=== PATIENT | male | born 1995 | race Caucasian/White ===

== ENCOUNTER 2023-04-17 13:07 | Emergency (ER) | payer OTHER, SELFPAY ==
[2023-04-17 13:11] VITALS: BP 124/78; PULSE 73; RESP 18; TEMP 36.4; O2SAT 97; BMI 24.4
--- NOTE | 2023-04-17 13:24 | ED_ITS ---
HPI - General Adult General Chief complaint: Abdominal Pain Stated complaint: BLOOD IN STOOL/NAUSEA Time Seen by Provider: 04/17/23 13:13 Source: patient Mode of arrival: walk-in Limitations: no limitations History of Present Illness HPI narrative: 27-year-old male who has a past medical history of gastric ulcers who is not currently on any medications presents for a bowel movement today that had a large amount of dark red blood. He states that he took 1600 mg of ibuprofen and 1 sitting a couple days ago. He drinks caffeine daily. He states that he took ibuprofen frequently a couple years ago and has not been taking this for couple years and he took 1600 mg as he states that he built up a tolerance ibuprofen. He did not take Pepto. Denies dizziness, abd or back pain, n/v/d, SOB or CP Related Data Previous Rx's Medication Instructions Recorded pantoprazole 20 mg tablet,delayed 20 mg PO DAILY 7 days #7 tabs 04/17/23 release (Protonix) sucralfate 1 gram tablet (Carafate) 1 g PO Q6H 7 days #28 tabs 04/17/23 Allergies Allergy/AdvReac Type Severity Reaction Status Date / Time hydromorphone [From Dilaudid] Allergy Unknown Verified 04/17/23 13:11 morphine Allergy Unknown Verified 04/17/23 13:11 oxycodone Allergy Unknown Verified 04/17/23 13:11 Review of Systems ROS Status of ROS 10 or more systems reviewed and unremarkable except as noted in history and below Exam Narrative Exam Narrative: General: alert, no distress, talking in full an complete sentences skin: warm, dry, intact head: normocephalic, atraumatic eyes: EOMI nose: nares patent neck: supple, trachea midline respiratory: non-labored extremities: FROM x 4, strength +5/5 abd: soft, NT, no guarding or rigidity, no peritoneal signs, normal BS neuro: A&Ox3 psych: appropriate mood and affect, cooperative Constitutional Vital Signs, click to edit/add: Last Vital Signs Temp 97.6 F 04/17/23 13:11 Pulse 73 04/17/23 13:11 Resp 18 04/17/23 13:11 BP 124/78 04/17/23 13:11 Pulse Ox 97 04/17/23 13:11 O2 Del Method Room Air 04/17/23 13:11 Course Vital Signs Vital signs: Vital Signs Temperature 97.6 F 04/17/23 13:11 Pulse Rate 73 04/17/23 13:11 Respiratory Rate 18 04/17/23 13:11 Blood Pressure 124/78 04/17/23 13:11 Pulse Oximetry 97 04/17/23 13:11 Oxygen Delivery Method Room Air 04/17/23 13:11 Temperature 97.6 F 04/17/23 13:11 Pulse Rate 73 04/17/23 13:11 Respiratory Rate 18 04/17/23 13:11 Blood Pressure 124/78 04/17/23 13:11 Pulse Oximetry 97 04/17/23 13:11 Oxygen Delivery Method Room Air 04/17/23 13:11 Medical Decision Making MDM Narrative Medical decision making narrative: I did offer work-up including lab work and imaging, but after shared decision making patient chooses to receive medications and follow-up with GI. He has only had 1 episode about 4 hours ago, he is not showing any signs or symptoms of massive blood loss such as dizziness, shortness of breath, chest pain, hypote nsion or tachycardia. He is not on any acid reflux medications and will be given Protonix and Carafate prescriptions and follow-up with GI and family doctor. He is instructed to stop taking Motrin and caffeine. afebrile, not tachypneic, not tachycardic, tolerating p.o., not hypoxic, non toxic appearing and ambulating at baseline and hemodynamically stable to be d/c. answered all questions. educated on SE of meds. pt in agreement with tx. educated when to return to ER. Discharge Plan Discharge Chief Complaint: Abdominal Pain Clinical Impression: Melena Patient Disposition: Home, Self-Care Time of Disposition Decision: 13:25 Condition: Good Mode of Transportation: Private Vehicle Prescriptions / Home Meds: New pantoprazole [Protonix] 20 mg tablet,delayed release (DR/EC) 20 mg PO DAILY 7 Days Qty: 7 0RF sucralfate [Carafate] 1 gram tablet 1 g PO Q6H 7 Days Qty: 28 0RF Instructions: Melena (ED) Stand Alone Forms: Portal Instructions Referrals: SELMA ZHANG [Other] - 1 week JOSE RIOS [Physician] - As soon as possible Physician,Non-Staff, MD [Primary Care Provider] - 1 week
== END 2023-04-17 13:41 | disposition home or self-care (01) ==
PROVIDERS: Emergency Provider Emergency Medicine
DX: K92.1 Melena (principal); Z79.899 Other long term (current) drug therapy
CPT/HCPCS: 99283

== ENCOUNTER 2023-06-20 21:20 | Observation (INO) | payer OTHER, SELFPAY ==
[2023-06-20 21:24] VITALS: BP 128/80; PULSE 99; RESP 18; TEMP 38.3; O2SAT 99; BMI 24.4
[2023-06-20 21:53] LABS: Adenovirus NOT DETECTED (NOT DETECTE); Bordetella parapertussis NOT DETECTED (NOT DETECTE); Coronavirus 229E NOT DETECTED (NOT DETECTE); Coronavirus HKU1 NOT DETECTED (NOT DETECTE); Coronavirus NL63 NOT DETECTED (NOT DETECTE); Coronavirus OC43 NOT DETECTED (NOT DETECTE); Human Metapneumovirus NOT DETECTED (NOT DETECTE); Human Rhinovirus/Enterovirus NOT DETECTED (NOT DETECTE); Influenza A NOT DETECTED (NOT DETECTE); Influenza B NOT DETECTED (NOT DETECTE); Mycoplasma pneumoniae NOT DETECTED (NOT DETECTE); Parainfluenza Virus 1 NOT DETECTED (NOT DETECTE); Parainfluenza Virus 2 NOT DETECTED (NOT DETECTE); Parainfluenza Virus 3 NOT DETECTED (NOT DETECTE); Parainfluenza Virus 4 NOT DETECTED (NOT DETECTE); Respiratory Syncytial Virus NOT DETECTED (NOT DETECTE); SARS-CoV-2 NOT DETECTED (NOT DETECTE)
[2023-06-20 22:14] LABS: Hematocrit 47.8 % (42.0-54.0); Mean Corpuscular HGB Conc 33.5 g/dL (29.9-35.2); Mean Corpuscular Hemoglobin 27.5 pg (25.9-34.0); Mean Corpuscular Volume 82.1 fL (80.0-94.0); Mean Platelet Volume 10.7 fL (9.5-13.5); Platelet Count 493 10^3/uL (150-450); Red Blood Count 5.82 10^6/uL (4.70-6.10); Red Cell Distribution Width 11.9 % (11.0-15.0); White Blood Count 26.6 10^3/uL (4.0-11.0)
[2023-06-20] MEDS: AMPICILLIN SODIUM/SULBACTAM NA 3 GM in 0.9 % SODIUM CHLORIDE 100 ML IV (22:17)
[2023-06-20] MEDS: 0.9 % SODIUM CHLORIDE 1,000 ML 1000 ML IV (22:17)
[2023-06-20] MEDS: ONDANSETRON PF 4 MG/2 ML VIAL IV ×2 (22:17→23:40)
[2023-06-20 22:28] LABS: Alanine Aminotransferase 36 U/L (16-63); Albumin Level 3.9 g/dL (3.4-5.0); Alkaline Phosphatase 85 U/L (46-116); Aspartate Amino Transferase 22 U/L (15-37); BUN Creatinine Ratio 10.4; Bilirubin Total 0.7 mg/dL (0.2-1.0); Calcium 9.6 mg/dL (8.5-10.1); Carbon Dioxide 27.8 mmol/L (21.0-32.0); Chloride 99 mmol/L (98-107); Estimated GFR (African America >60 (>=60); Estimated GFR (Non-African Ame >60 (>=60); Globulin 4.1 g/dL; Glucose 113 mg/dL (74-106); Potassium 3.8 mmol/L (3.5-5.1); Sodium 136 mmol/L (136-145)
[2023-06-20 22:32] LABS: Lactate/Lactic Acid 1.7 mmol/L (0.4-2.0)
[2023-06-20 22:36] LABS: Atypical Lymphocytes Abs Man 2.39; Basophils Abs Manual 0.26 10^3/uL (0.00-0.10); Lymphocytes Absolute Manual 2.39 10^3/uL (1.20-3.80); Monocytes Absolute Manual 2.39 10^3/uL (0.30-0.80); Segmented Neut Absolute Manual 19.15 10^3/uL (1.4-6.5)
--- NOTE | 2023-06-20 22:46 | ED_ITS ---
HPI - General Adult General Chief complaint: Dental/Oral Stated complaint: Post Operative Complications Time Seen by Provider: 06/20/23 21:21 Source: patient Mode of arrival: walk-in Limitations: no limitations History of Present Illness HPI narrative: This 27-year-old male with a history of hereditary spherocytosis who is status post splenectomy in the past presents for evaluation of fevers, chills, headache, nausea and vomiting. The patient states his locomotive boilermaker told him in the past if he should ever have a fever greater than 100 degrees for greater than 24 hours he should be on antibiotics. The patient had a tonsillectomy yesterday at the [facility] [place]. He was discharged home with a perception for pain medication and a mouth rinse but no antibiotics. Earlier today he started having some chills and sweats and took his temperature and had a fever. He has been tolerating clear liquids but feels dehydrated. He has also had 2 episodes of vomiting. He has no chest pain or shortness of breath. He has no sick contacts. He was formerly a patient of Dr Mulligan, but since he retired, he does not have a locomotive boilermaker and his PCP is now at the [facility] Related Data Home Medications Medication Instructions Recorded Confirmed sertraline 50 mg tablet 50 mg PO Q24H 06/20/23 06/20/23 Allergies Allergy/AdvReac Type Severity Reaction Status Date / Time hydromorphone [From Dilaudid] Allergy Unknown Verified 06/20/23 21:29 morphine Allergy Unknown Verified 06/20/23 21:29 oxycodone Allergy Unknown Verified 06/20/23 21:29 Review of Systems ROS Status of ROS 10 or more systems reviewed and unremark able except as noted in history and below PFSH COUNT INCLUDES THE [facility] Social History Smoking status: Current every day smoker Exam Narrative Exam Narrative: Nurses note and vital signs reviewed and patient is not hypoxic.He is febrile with a temperature of 100.9 and mildly tachycardic with pulse of 99 General: Alert, nontoxic but uncomfortable appearing male, his voice is muffled status post tonsillectomy surgery yesterday, no respiratory distress Skin: Warm, dry, no pallor noted. There is no rash noted. Head: Normocephalic, atraumatic Eye: Normal conjunctiva, no drainage, EOMI. PERRL Ears, Nose, Mouth, and Throat: oral mucosa is dry, eschar/cauterized tissue noted on the tonsils Cardiovascular: Regular Rate and Rhythm S1S2, no murmurs, rubs or gallops noted Respiratory: Patient is in no distress, no accessory muscle use, lungs are clear to auscultation, no wheezing, rales or rhonchi Back: non-tender, no CVA tenderness bilaterally to percussion. GI: Normal bowel sounds, no tenderness to palpation, no masses appreciated. No rebound, guarding, or rigidity noted. Musculoskeletal: The patient has no evidence of calf tenderness, no pitting edema, symmetrical pulses noted bilaterally Neurological: A&O x4, normal speech Psychiatric: Cooperative Constitutional Vital Signs, click to edit/add: Last Vital Signs Temp 100.9 F H 06/20/23 21:24 Pulse 99 H 06/20/23 21:24 Resp 18 06/20/23 21:24 BP 128/80 06/20/23 21:24 Pulse Ox 99 06/20/23 21:24 O2 Del Method Room Air 06/20/23 21:24 Course Vital Signs Vital signs: Vital Signs Temperature 100.9 F H 06/20/23 21:24 Pulse Rate 99 H 06/20/23 21:24 Respiratory Rate 18 06/20/23 21:24 Blood Pressure 128/80 06/20/23 21:24 Pulse Oximetry 99 06/20/23 21:24 Oxygen Delivery Method Room Air 06/20/23 21:24 Temperature 100.9 F H 06/20/23 21:24 Pulse Rate 99 H 06/20/23 21:24 Respiratory Rate 18 06/20/23 21:24 Blood Pressure 128/80 06/20/23 21:24 Pulse Oximetry 99 06/20/23 21:24 Oxygen Delivery Method Room Air 06/20/23 21:24 Medical Decision Making MDM Narrative Medical decision making narrative: This 27-year-old male with a history of hereditary spherocytosis who is status post splenectomy in the past presents for evaluation of fever, chills, headache, body aches with nausea and vomiting starting today. He had his tonsils removed yesterday. He states that he went to an ENT at the [facility] and they were concerned that he may have a head and neck cancer. He had CAT scans done etc. and ultimately had his tonsils removed yesterday. Today he started with his fever, chills body aches headaches etc. and had been told in the past by his locomotive boilermaker that he should seek medical attention if he had a fever greater than 100 degrees for greater than 24 hours. Upon arrival he was noted to have a temperature of 100.9. He has been tolerating clear liquids but has had 2 episodes of vomiting. His lungs are clear, abdomen is soft. He has not had any bleeding from his tonsillar site. Due to his history of splenectomy he was treated with 3 g of IV Unasyn, IV fluids and Zofran. I reviewed the literature to find out exactly which additional medications were indicated to prevent sepsis and a post splenectomy patient. I ultimately chose Levaquin for gram- negative coverage. Respiratory panel was ordered and is negative. The patient's white count is elevated at 26.6. He has a normal lactic acid. Electrolytes are a lso normal. Blood cultures are pending at this time. Patient has not had any marked tachycardia, hypotension or signs of sepsis. He was medicated with Tylenol and an additional dose of Zofran and fentanyl which he stated he could tolerate for his pain and ongoing nausea and fever. He has not had any hematemesis or bleeding from his postop site. The case was discussed with the hospitalist and the patient is accepted for admission, observation status for additional IV fluids and IV antibiotics. Lab Data Labs: Lab Results 06/20/23 06/20/23 Range/Units 21:45 21:57 WBC 26.6 H (4.0-11.0) 10^3/uL RBC 5.82 (4.70-6.10) 10^6/uL Hgb 16.0 (14.0-18.0) g/dL Hct 47.8 (42.0-54.0) % MCV 82.1 (80.0-94.0) fL MCH 27.5 (25.9-34.0) pg MCHC 33.5 (29.9-35.2) g/dL RDW 11.9 (11.0-15.0) % Plt Count 493 H (150-450) 10^3/uL MPV 10.7 (9.5-13.5) fL Seg Neuts % (Manual) 72.0 Lymphocytes % (Manual) 9.0 L (20.5-60.0) % Atypical Lymphs % (Man) 9.0 % Monocytes % (Manual) 9.0 (1.7-12.0) % Eosinophils % (Manual) 0.0 L (0.9-7.0) % Basophils % (Manual) 1.0 (0.2-2.0) % Neutrophils # (Manual) 19.15 H (1.4-6.5) 10^3/uL Lymphocytes # (Manual) 2.39 (1.20-3.80) 10^3/uL Abs Atypical Lymphs Man 2.39 Monocytes # (Manual) 2.39 H (0.30-0.80) 10^3/uL Eosinophils # (Manual) 0.00 (0.00-0.70) 10^3/uL Basophils # (Manual) 0.26 H (0.00-0.10) 10^3/uL Sodium 136 (136-145) mmol/L Potassium 3.8 (3.5-5.1) mmol/L Chloride 99 (98-107) mmol/L Carbon Dioxide 27.8 (21.0-32.0) mmol/L Anion Gap 13.0 BUN 10.0 (7.0-18.0) mg/dL Creatinine 0.96 (0.70-1.30) mg/dL Est GFR ( Amer) >60 (>=60) Est GFR (Non-Af Amer) >60 (>=60) BUN/Creatinine Ratio 10.4 Glucose 113 H (74-106) mg/dL Lactate 1.7 (0.4-2.0) mmol/L Calcium 9.6 (8.5-10.1) mg/dL Total Bilirubin 0.7 (0.2-1.0) mg/dL AST 22 (15-37) U/L ALT 36 (16-63) U/L Alkaline Phosphatase 85 (46-116) U/L Total Protein 8.0 (6.4-8.2) g/dL Albumin 3.9 (3.4-5.0) g/dL Globulin 4.1 g/dL Albumin/Globulin Ratio 1.0 Adenovirus (PCR) Not detected (NOT DETECTE) C. pneumoniae DNA (PCR) Not detected (NOT DETECTE) Coronavirus Type OC43 Not detected (NOT DETECTE) Coronavirus Type HKU1 Not detected (NOT DETECTE) Coronavirus Type 229E Not detected (NOT DETECTE) Coronavirus Type NL63 Not detected (NOT DETECTE) Human Metapneumovir PCR Not detected (NOT DETECTE) M. pneumoniae (PCR) Not detected (NOT DETECTE) Parainfluenza PCR Not detected (NOT DETECTE) Parainfluenza 2 (PCR) Not detected (NOT DETECTE) Parainfluenza 3 (PCR) Not detected (NOT DETECTE) Parainfluenza 4 (PCR) Not detected (NOT DETECTE) RSV (RT-PCR) Not detected (NOT DETECTE) Entero/Rhino (PCR) Not detected (NOT DETECTE) SARS-CoV-2 (PCR) Not detected (NOT DETECTE) Bordetella pertussis (PCR) Not detected (NOT DETECTE) B parapertussis DNA PCR Not detected (NOT DETECTE) Influenza Type A (PCR) Not detected (NOT DETECTE) Influenza Type B (PCR) Not detected (NOT DETECTE) Discharge Plan Discharge Chief Complaint: Dental/Oral Clinical Impression: Leukocytosis, Asplenia, Fever postop Patient Disposition: Admitted as Observation Time of Disposition Decision: 23:43 Condition: Good Prescriptions / Home Meds: No Action sertraline 50 mg tablet 50 mg PO Q24H Referrals: Physician,Non-Staff, MD [Primary Care Provider] - 1 week
[2023-06-20] MEDS: LEVOFLOXACIN IN DEXTROSE 5 % 750 MG/150 ML IV.SOLN 100 MG IV (23:39)
[2023-06-20] MEDS: ACETAMINOPHEN 160 MG/5 ML ORAL.SUSP 640 MG PO (23:40)
[2023-06-20] MEDS: FENTANYL CITRATE/PF 100 MCG/2 ML VIAL 50 MCG IV (23:40)
[2023-06-21 00:01] VITALS: BP 109/68; PULSE 90; RESP 18; TEMP 37; O2SAT 93; BMI 23.5
--- OUTSIDE RECORDS SUMMARY | 2023-06-21 00:02 | XMS_ITS | CCD ---
Author Name Unknown Address [address] [place] [address] Organization [facility] Care Team Providers Care Electrophysiologist Name Role Phone Lelia Franklin Primary Care Physician Ade Fuller Unavailable Unavailable Zoila Webb Unavailable Jose Taylor Attending Unavailable Karan العراقي Attending Unavailable MABLE STEPHENSON Attending Unavailable Angela Barksdale Attending Unavailable LELIA FRANKLIN Attending Unavailable Leah Grover Attending Unavailable ROBERTO CARLOS Myrick Leah Admitting UnavailLeah Eason Attending Unavailable LELIA FRANKLIN Referring Unavailable ROBERTO CARLOS Myrick Leah Admitting UnavailLELIA Trevino Referring Unavailable Leah Myrick Attending Unavailable LELIA FRANKLIN Referring Unavailable MD Sen Burgess Admitting Unavailable Sen Burgess Attending Unavailable LELIA FRANKLIN Referring Unavailable MD Sen Burgess Admitting Unavailable Sen Burgess Attending Unavailable MD Sen Burgess Admitting Unavailable Sen Burgess Attending Unavailable Sen Burgess Referring Unavailable Leah Myrick Admitting Unavailable Leah Myrick Attending Unavailable Sen Burgess Admitting Unavailable Sen Burgess Attending Unavailable Sen Burgess Referring Unavailable MABLE STEPHENSON Attending Unavailable MABLE STEPHENSON Admitting Unavailable Allergies Allergy Classification Reported Allergen(s) Allergy Type Date of Onset Reaction(s) Facility (16 sources) HYDROmorphone; Translations: [hydromorphone] Drug Allergy Weal (disorder) [facility] (17 sources) Morphine; Translations: [morphine] Drug Allergy anaphylaxis, Unknown [facility] (17 sources) oxyCODONE; Translations: [oxycodone] Drug Allergy Nausea (finding) [facility] Medications Current Medications Medication Drug Class(es) Dates Sig (Normalized) Sig (Original) acetaminophen 1000 mg oral tablet (3 sources) Start: 06-13-2022 take 1000 mg by mouth three times daily as needed for pain acetaminophen 1,000 mg, Oral, TID, PRN as needed for pain, Refills(s) 0 Start Date: 06/13/22 Status: Ordered benzonatate 100 mg oral capsule (4 sources) Non-narcotic Antitussive Start: 03-28-2023 End: 04-04-2023 take 1 capsule by mouth three times daily Tessalon 100 mg Cap 100 mg = 1 cap(s), Oral, TID, X 7 day(s), # 21 cap(s), Refills(s) 0, Pharmacy: [facility]/pharmacy #[id number], 177, cm, 03/28/23 10:47:00 EDT, Height/Length Dosing, 75.8, kg, 03/28/23 10:47:00 EDT, Weight Dosing Start Date: 03/28/23 Stop Date: 04/04/23 Status: Ordered Start: 05-19-2022 End: 05-26-2022 take 1 capsule by mouth three times daily benzonatate 200 mg oral capsule 200 mg = 1 cap(s), Oral, TID, X 7 day(s), # 21 cap(s), Refills(s) 0, Pharmacy: [facility]/pharmacy #[id number], 180, cm, 05/19/22 10:12:00 EST, Height/Length Dosing, 80, kg, 05/19/22 10:12:00 EST, Weight Dosing Start Date: 05/19/22 Stop Date: 05/26/22 Status: Ordered brompheniramine maleate 0.2 mg/ml / dextromethorphan hydrobromide 1 mg/ml / phenylephrine hydrochloride 0.5 mg/ml oral solution (4 sources) Uncompetitive T-xisezq-L-aspartate Receptor Antagonist, Sigma-1 Agonist, alpha-1 Adrenergic Agonist Start: 05-14-2022 take 10 mL by mouth every four hours for cough and congestion brompheniramine/dextromethorph/phenyleph rine 1 mg-5 mg-2.5 mg/5 mL oral liquid 10 mL, Oral, q4hr for cough and congestion, 118 mL, Refill(s) 0, [facility]/pharmacy #[id number], 180, cm, 05/14/22 19:45:00 EST, Height/Length Dosing, 79.5, kg, 05/14/22 19:45:00 EST, Weight Dosing Start Date: 05/14/22 Status: Ordered brompheniramine maleate 0.4 mg/ml / dextromethorphan hydrobromide 2 mg/ml / pseudoephedrine hydrochloride 6 mg/ml oral solution (2 sources) alpha-Adrenergic Agonist, Uncompetitive X-nusxjo-I-aspartate Receptor Antagonist, Sigma-1 Agonist Start: 05-12-2022 End: 05-19-2022 take 10 mL by mouth every six hours Bromfed DM oral syrup 10 mL, Oral, q6hr for cold symptoms for 7 day(s), 280 mL, Refill(s) 0, [facility]/pharmacy #[id number], 178, cm, 05/12/22 11:45:00 EST, Height/Length Dosing, 78.6, kg, 05/12/22 11:45:00 EST, Weight Dosing Start Date: 05/12/22 Stop Date: 05/19/22 Status: Ordered cefdinir 300 mg oral capsule (3 sources) Cephalosporin Antibacterial Start: 05-19-2022 End: 05-29-2022 take 1 capsule by mouth every twelve hours cefdinir 300 mg Cap 300 mg = 1 cap(s), O ral, q12hr, X 10 day(s), # 20 cap(s), Refills(s) 0, Pharmacy: [facility]/pharmacy #[id number], 180, cm, 05/19/22 10:12:00 EST, Height/Length Dosing, 80, kg, 05/19/22 10:12:00 EST, Weight Dosing Start Date: 05/19/22 Stop Date: 05/29/22 Status: Ordered cyclobenzaprine hydrochloride 10 mg oral tablet (11 sources) Muscle Relaxant Start: 03-28-2022 take 1 tablet by mouth three times daily as needed for muscle spasms cyclobenzaprine 10 mg Tab 10 mg = 1 tab( s), Oral, TID, PRN for spasm, # 30 tab(s), Refills(s) 0, Pharmacy: [facility]/pharmacy #[id number], 178, cm, 03/28/22 14:15:00 EDT, Height/Length Dosing, 83.1, kg, 03/28/22 14:15:00 EDT, Weight Dosing Start Date: 03/28/22 Status: Ordered Start: 12-23-2021 End: 01-13-2022 take 1 tablet by mouth at bedtime cyclobenzaprine 5 mg Tab 5 mg = 1 tab(s), Oral, Bedtime, X 21 day(s), # 21 tab(s), Refills(s) 0, Pharmacy: [facility]/pharmacy #[id number], 178, cm, 12/23/21 16:48:00 EDT, Height/Length Dosing, 81, kg, 12/23/21 16:48:00 EDT, Weight Dosing Start Date: 12/23/21 Stop Date: 01/13/22 Status: Ordered escitalopram 20 mg oral tablet (9 sources) Serotonin Reuptake Inhibitor Start: 04-28-2022 take 1 tablet by mouth once daily Lexapro 20 mg Tab 20 mg = 1 tab(s), Oral, Daily, # 30 tab(s), Refills(s) 1, Pharmacy: [facility]/pharmacy #[id number], 178, cm, 04/28/22 15:31:00 EST, Height/Length Dosing, 79.7, kg, 04/28/22 15:31:00 EST, Weight Dosing Start Date: 04/28/22 Status: Ordered Start: 03-28-2022 take 1 tablet by aries th once daily Lexapro 10 mg Tab 10 mg = 1 tab(s), Oral, Daily, # 30 tab(s), Refills(s) 1, Pharmacy: [facility]/pharmacy #[id number], 178, cm, 03/28/22 14:15:00 EDT, Height/Length Dosing, 83.1, kg, 03/28/22 14:15:00 EDT, Weight Dosing Start Date: 03/28/22 Status: Ordered gabapentin 300 mg oral capsule (1 source) Anti-epileptic Agent Start: 07-04-2022 take 1 capsule by mouth once daily at bedtime gabapentin 300 mg Cap 300 mg = 1 cap(s), Oral, Once a day (at bedtime), # 30 cap(s), Refills(s) 1, Pharmacy: [facility]/pharmacy #[id number], 180, cm, 07/04/22 15:40:00 EST, Height/Length Dosing, 75, kg, 07/04/22 15:40:00 EST, Weight Dosing Start Date: 07/04/22 Status: Ordered hydrOXYzine pamoate 25 mg oral capsule (8 sources) Antihistamine Start: 04-28-2022 take 1 capsule by mouth three times daily as needed for anxiety Vistaril 25 mg Cap 25 mg = 1 cap(s), Oral, TID, PRN for anxiety, # 40 cap(s), Refills(s) 2, Pharmacy: [facility]/pharmacy #[id number], 178, cm, 04/28/22 15:31:00 EST, Height/Length Dosing, 79.7, kg, 04/28/22 15:31:00 EST, Weight Dosing Start Date: 04/28/22 Status: Ordered Brutus (1 source) Brutus Active methocarbamol 750 mg oral tablet (1 source) Muscle Relaxant Start: 02-03-2022 End: 02-10-2022 take 2 tablets by mouth at bedtime methocarbamol 750 mg Tab 1,500 mg = 2 tab(s), Oral, Bedtime, X 7 day(s), # 14 tab(s), Refills(s) 0, [id number], cm, 02/03/22 10:55:00 EDT, Height/Length Dosing, 80.8, kg, 02/03/22 10:55:00 EDT, Weight Dosing Start Date: 02/03/22 Stop Date: 02/10/22 Status: Ordered methylPREDNISolone 4 mg oral tablet (3 sources) Corticosteroid Start: 02-03-2022 End: 02-09-2022 Medrol 4 mg Tab = 1 packet(s), Oral, As Directed, as directed on package labeling, X 6 day(s), # 21 tab(s), Refills(s) 0, [id number] 178, cm, 02/03/22 10:55:00 EDT, Height/Length Dosing, 80.8, kg, 02/03/22 10:55:00 EDT, Weight Dosing Start Date: 02/03/22 Stop Date: 02/09/22 Status: Ordered Start: 12-23-2021 End: 12-29-2021 Medrol 4 mg Tab = 1 packet(s ), Oral, As Directed, as directed on package labeling, X 6 day(s), # 21 tab(s), Refills(s) 0, Pharmacy: [facility]/pharmacy #[id number], 178, cm, 12/23/21 16:48:00 EDT, Height/Length Dosing, 81, kg, 12/23/21 16:48:00 EDT, Weight Dosing Start Date: 12/23/21 Stop Date: 12/29/21 Status: Ordered phenylephrine 0.0025 mg/mg / witch vikas 0.5 mg/mg rectal gel (2 sources) alpha-1 Adrenergic Agonist Start: 06-06-2022 phenylephrine 0.25% rectal gel 1 evelyn, Topical, Daily for itching, 54 gram, Refill(s) 0, [facility]/pharmacy #[id number], 180, cm, 06/06/22 15:30:00 EST, Height/Length Dosing, 77, kg, 06/06/22 15:30:00 EST, Weight Dosing Start Date: 06/06/22 Status: Ordered predniSONE 20 mg oral tablet (5 sources) Start: 05-04-2023 take 1 tablet by mouth every twelve hours prednisone 20 MG 1 tablet Orally BID for 5 Apr, Active Start: 03-28-2023 End: 04-04-2023 take 1 tablet by mouth once daily predniSONE 20 mg Tab 20 mg = 1 tab(s), Oral, Daily, X 7 day(s), # 7 tab(s), Refills(s) 0, Pharmacy: [facility]/pharmacy #[id number], 177, cm, 03/28/23 10:47:00 EDT, Height/Length Dosing, 75.8, kg, 03/28/23 10:47:00 EDT, Weight Dosing Start Date: 03/28/23 Stop Date: 04/04/23 Status: Ordered Start: 05-19-2022 End: 05-24-2022 take 3 tablets by mouth once daily predniSONE 20 mg Tab 60 mg = 3 tab(s), Oral, Daily, X 5 day(s), # 15 tab(s), Refills(s) 0, Pharmacy: [facility]/pharmacy #[id number], 180, cm, 05/19/22 10:12:00 EST, Height/Length Dosing, 80, kg, 05/19/22 10:12:00 EST, Weight Dosing Start Date: 05/19/22 Stop Date: 05/24/22 Status: Ordered Sertraline (2 sources) Serotonin Reuptake Inhibitor Start: 03-28-2023 sertraline Oral, Brielle ly, Refills(s) 0 Start Date: 03/28/23 Status: Ordered take 1 tablet by aries th every twenty-four hours Sertraline HCl 100 MG 1 tablet Orally Once a day Active traZODone hydrochloride 100 mg oral tablet (1 source) Serotonin Reuptake Inhibitor Start: 03-28-2023 traZODONE 100 mg Tab Refills(s) 0 Start Date: 03/28/23 Status: Ordered Problems Active Problems Problem Classification Problem Date Documented Da te Episodic/Chronic Acute and chronic tonsillitis (15 sources) Enlarged tonsil 11-20-2019 Chronic Anxiety disorders (18 sources) Anxiety; Translations: [Posttraumatic stress disorder] 04-28-2022 Chronic Biliary tract disease (15 sources) Biliary calculus 08-29-2013 Episodic Comment on above: 2009 2009 Deficiency and other anemia (15 sources) Hemolytic anemia 11-20-2019 Chronic Deficiency and other anemia (15 sources) Hereditary spherocytosis 12-12-2019 Chronic E Codes: Fall (1 source) Fall on same level from slipping, tripping and stumbling with subsequent striking against other sharp object, initial encounter; Translations: [Fall on same level from tripping (finding)] Episodic E Codes: Unspecified (1 source) Civilian activity done for income or pay; Translations: [Working, function (observable entity)] Episodic Gastroduodenal ulcer (except hemorrhage) (15 sources) Ulcer of anastomosis 11-20-2019 Chronic Noninfectious gastroenteritis (1 source) Noninfectious enteritis; Translations: [Noninfective gastroenteritis and colitis, unspecified] Onset: 05-12-2022 Episodic Open wounds of extremities (2 sources) Laceration of lower leg; Translations: [Laceration without foreign body, unspecified lower leg, initial encounter] Onset: 11-04-2021 Episodic Other aftercare (15 sources) Post-discharge follow-up 11-20-2019 Episodic Other connective tissue disease (13 sources) Medial epicondylitis; Translations: [Medial epicondylitis, unspecified elbow] Onset: 02-03-2022 Episodic Other connective tissue disease (2 sources) Spasm; Translations: [Other muscle spasm] Onset: 02-03-2022 Episodic Other connective tissue disease (12 sources) Muscle spasm of cervical muscle of neck 02-03-2022 Episodic Other ear and sense organ disorders (9 sources) Hearing loss 05-08-2022 Chronic Other gastrointestinal disorders (15 sources) Constipation 11-20-2019 Episodic Comment on above: after GB removed after GB removed Other gastrointestinal disorders (15 sources) Dysphagia 11-20-2019 Episodic Other gastrointestinal disorders (15 sources) Splenomegaly 11-20-2019 Episodic Other male genital disorders (15 sources) Testicular mass 08-21-2021 Episodic Other upper respiratory infections (4 sources) Acute upper respiratory infection; Translations: [Acute upper respiratory infection, unspecified] Onset: 05-12-2022 Episodic Otitis media and related conditions (1 source) Otitis media; Translations: [Otitis media, unspecified, unspecified ear] Onset: 05-19-2022 Episodic Residual codes; unclassified (13 sources) Sleep apnea; Translations: [Sleep apnea, unspecified] Onset: 02-03-2022 Chronic Residual codes; unclassified (14 sources) Insomnia; Translations: [Insomnia, unspecified] Onset: 02-03-2022 Episodic Screening and history of mental health and substance abuse codes (15 sources) Ex-smoker 11-04-2019 Episodic Spondylosis; intervertebral disc disorders; other back problems (14 sources) Cervical spondylosis; Translations: [Spondylosis without myelopathy or radiculopathy, cervical region] Onset: 02-03-2022 Chronic Spondylosis; intervertebral disc disorders; other back problems (20 sources) Cervical radiculopathy; Translations: [Radiculopathy, cervical region] Onset: 12-23-2021 Episodic Unclassified (14 sources) Body mass index 20-24 - normal 11-20-2019 Unclassified (15 sources) Family history unknown 11-04-2019 Unclassified (15 sources) Non-smoker 11-20-2019 Unclassified (15 sources) Patient encounter status 11-04-2019 Unclassified (9 sources) History of clinical finding in subject 05-08-2022 Past or Other Problems Problem Classification Problem Date Documented Da te Episodic/Chronic Unclassified (1 source) Contact with and (suspected) exposure to covid-19 Z20.822 Viral infection (1 source) COVID-19 Results Test Name Value Interpretation Reference Range Facility Auth for Release of Medical Recordson 05-04-2023 Auth for Release of Medical Records [id number] F Normal [facility] Grp A Strp PCRon 03-29-2023 Group A Strep Negative Normal [facility] Comment on above: Result Comment: Test ing performed using DNA amplification. Performed By: #### 1 [id number] ####[facility] [id number] [place] [address] Grp A Strp Intrl Ctrl Pass Normal [facility] Comment on above: Performed By: #### 1 [id number] ####[facility] [address] [place] [address] Ambulatory Visit Summaryon 1 Ambulatory Visit Summary BRITTNEYAdithya CHRISTIANO J :1995 Visit Date:03/28/2023 Ambulatory Visit Instructions Your Diagnosis Viral URI with cough Your Care Team Attending Physician - ALEXIA AZEVEDO, MABLE Primary Care Physician - RIGOBERTO CHURCH, LELIA Palmer This Is Your Medications List acetaminophen benzonatate (Tessalon 100 mg Cap) predniSONE (predniSONE 20 mg Tab) sertraline trazodone (traZODONE 100 mg Tab) Procedures Performed Epidural injection of cervical spine using fluoroscopic guidance (06/13/2022), Cholecystectomy, Hernia repair, Splenectomy. Discharge Vitals Temperature (Temporal Artery) 37 ?C Heart Rate (Peripheral) 77 Blood Pressure 121/78 Height 177 cm Height 70 in Weight 75.8 kg Weight 166.76 lb BMI 24.19 What to do next You Need to Complete the Following Group A Strep by PCR, Swab, Routine collect, 03/28/23, Order for future visit, Nurse collect, Viral URI with cough, Print Label By Order Location Medications What How Much When Why Instructions New benzonatate (Tessalon 100 mg Cap) 1 Capsules By Mouth 3 times a day Viral URI with cough Duration: 7 Days Pickup at [facility]/pharmacy #[id number] New predniSONE (predniSONE 20 mg Tab) 1 Tablets By Mouth Every day Viral URI with cough Duration: 7 Days Pickup at [facility]/pharmacy #[id number] Unchanged acetaminophen 1,000 Milligram By Mouth 3 times a day as needed for as needed for pain Unchanged sertraline By Mouth Every day Unchanged trazodone (traZODONE 100 mg Tab) Pharmacy Information [facility]/pharmacy #[id number]: [address] [place], [place] [id number] [phone] Allergies Dilaudid (Hives) morphine (anaphylaxis) oxyCODONE (Nausea) Problems Ongoing - Any problem that you are currently receiving treatment for. Anxiety Cervical radiculopathy Cervical spondylosis Constipation Difficulty swallowing Enlarged tonsils Family history unknown Former smoker Hearing deficit Hemolytic anemia Hereditary spherocytosis History of neck pain Hospital discharge follow-up Insomnia Lower back pain Medial epicondylitis Muscle spasms of neck Non-smoker PTSD (post-traumatic stress disorder) Screening for cardiovascular condition Splenomegaly Stomal ulcer Testicle lump Viral URI with cough Historical - Any problem that you are no longer receiving treatment for. Cholelithiasis Sleep apnea Normal [facility] Family Medicine Office/Clini c Noteon 03-28-2023 Family Medicine Office/Clinic Note Chief Complaint sore throat and congestion HPI Staff Symptoms started- Sunday Headache- yes Body aches- no Earache- no Runny/stuffy nose- yes Problem with Smell- no Problem with Taste- no Sore throat- yes Cough- yes Scratchy tickly throat- yes Chest symptoms- SOB WHITING- no Orthopnea- no Lung Hx asthma, bronchitis, chest colds- no Fever/chills- no GI symptoms- no COVID exposure- no History of Present Illness Reviewed and agree with above documented HPI by medical billing supervisor. Portions of this record may have been created with voice recognition artificial intelligence software, specifically [employer], [employer] and or [employer]. Substitutions may have occurred due to the inherent limitations of voice recognition and artificial intelligence software. Patient is a 27-year-old male who [facility], with sinus headache, body aches, sinus drainage, sore throat, and a nonproductive cough. Patient states he has coughing spells he does have shortness of breath, usually with laying supine, states he does vape, but does not smoke and does not have a history of asthma or bronchitis, patient states been having a sore throat, has been able to eat and drink, has a sense of taste and smell intact. Patient denies having any fevers, chills, nausea or vomiting, worsening headache of his life, dizziness, difficulty swallowing, worsening cough, productive cough, chest pain, shortness of breath, or weakness. Review of Systems PHQ Score Initial Depression Screen Score: 0 Physical Exam Vitals & Measurements T: 37 ?C(Temporal Artery) HR: 77(Peripheral) BP: 121/78 SpO2: 98% HT: 70 in HT: 177 cm WT: 75.8 kg WT: 166.76 lb BMI: 24.19 General: Well developed, well nourished, in no acute distress, patient does appear ill but not septic, no respiratory disorders noted. Patient answers questions appropriately and in complete sentences, and follows commands appropriately. Head: Normocephalic/atraumatic , upper respiratory infections signs of sinus congestion, but no signs of bacterial sinusitis. Eyes: Pupils equal, round, and reactive to light. Conjunctivae and sclerae normal, Ear: Bilateral TMs bulging, without any signs of otitis media or otitis externa. Hearing is intact. Mouth: Mucous membranes moist. Normal oropharynx, and posterior pharynx without lesions or exudates. Tongue normal Neck: Neck supple. No masses or palpable cervical nodes. Trachea midline. Lungs: Normal respiratory effort and clear to auscultation throughout, no wheezing, no rales, crackles, or decreased breath sounds were noted on examination. Cardio: regular rate and rhythm, no murmur, no chest wall tenderness. Extremity: Patient is able to move all 4 extremities equally without any pain or weakness. Neurologic: Grossly normal Skin: No rashes, ulcerations, or suspicious lesions Lymph Nodes: no lad Mental Status: alert, active Assessment/Plan Discuss with patient negative COVID-19 and rapid strep throat results. No imaging or breath sounds were indicated at this time. 27-year-old male [facility] to [facility], for viral upper respiratory infection and a nonproductive cough, patient appeared ill but not septic, no respiratory disorders noted, no difficulty swallowing. Patient was given a prescription for prednisone and Tessalon Perles, work excuse note, instructed to take [id number] ibuprofen Tylenol as needed for headaches, body aches, fevers. Drink plenty water stay hydrated. Patient agree with plan. 1. Viral URI with cough (J06.9: Acute upper respiratory infection, unspecified) See above Ordered: benzonatate, 100 mg = 1 cap(s), Oral, TID, X 7 day(s), # 21 cap(s), Refills(s) 0, Pharmacy: [facility]/pharmacy #[id number], 177, cm, 03/28/23 10:47:00 EDT, Height/Length Dosing, 75.8, kg, 03/28/23 10:47:00 EDT, Weight Dosing predniSONE, 20 mg = 1 tab(s), Oral, Daily, X 7 day(s), # 7 tab(s), Refills(s) 0, Pharmacy: [facility]/pharmacy #[id number], 177, cm, 03/28/23 10:47:00 EDT, Height/Length Dosing, 75.8, kg, 03/28/23 10:47:00 EDT, Weight Dosing Group A Strep by PCR Rapid COVID POC 34982 Rapid Strep POC 41115 Follow-up With When Contact Information RIGOBERTO CHURCH, LELIA Palmer, [facility] [address] [place] [phone] Additional Instructions: Patient Education Viral Respiratory Infection, [id number] Problem List/Past Medical History Ongoing Anxiety Cervical radiculopathy Cervical spondylosis Constipation Difficulty swallowing Enlarged tonsils Family history unknown Former smoker Hearing deficit Hemolytic anemia Hereditary spherocytosis History of neck pain Hospital discharge follow-up Insomnia Lower back pain Medial epicondylitis Muscle spasms of neck Non-smoker PTSD (post-traumatic stress disorder) Screening for cardiovascular condition Splenomegaly Stomal ulcer Testicle lump Viral URI with cough Historical Cholelithiasis Sleep apnea Procedure/Surgi (more content not included)... Normal [facility] Comment on above: Result Comment: Elec tronically Signed By: ALEXIA AZEVEDO, MABLE\.br\Date and Time Signed: 03/28/23 11:46 EDT Patient Educationon 03-28-20 Patient Education Infectious Disease Viral Respiratory Infection A viral respiratory infection is an illness that affects parts of the body that are used for breathing. These include the lungs, nose, and throat. It is caused by a germ called a virus. Some examples of this kind of infection are: ? A cold. ? The flu (influenza). ? A respiratory syncytial virus (RSV) infection. What are the causes? This condition is caused by a virus. It spreads from person to person. You can get the virus if: ? You breathe in droplets from someone who is sick. ? You come in contact with people who are sick. ? You touch mucus or other fluid from a person who is sick. What are the signs or symptoms? Symptoms of this condition include: ? A stuffy or runny nose. ? A sore throat. ? A cough. ? Shortness of breath. ? Trouble breathing. ? Yellow or green fluid in the nose. Other symptoms may include: ? A fever. ? Sweating or chills. ? Tiredness (fatigue). ? Achy muscles. ? A headache. How is this treated? This condition may be treated with: ? Medicines that treat viruses. ? Medicines that make it easy to breathe. ? Medicines that are sprayed into the nose. ? Acetaminophen or NSAIDs, such as ibuprofen, to treat fever. Follow these instructions at home: Managing pain and congestion ? Take hfqi-kwu-ywrtvth and prescription medicines only as told by your doctor. ? If you have a sore throat, gargle with salt water. Do this 3?4 times a day or as needed. ? To make salt water, dissolve ??1 tsp (3?6 g) of salt in 1 cup (237 mL) of warm water. Make sure that all the salt dissolves. ? Use nose drops made from salt water. This helps with stuffiness (congestion). It also helps soften the skin around your nose. ? Take 2 tsp (10 mL) of honey at bedtime to lessen coughing at night. ? Do not give honey to children who are younger than 1 year old. ? Drink enough fluid to keep your pee (urine) pale yellow. General instructions ? Rest as much as possible. ? Do not drink alcohol. ? Do not smoke or use any products that contain nicotine or tobacco. If you need help quitting, ask your doctor. ? Keep all follow-up visits. How is this prevented? ? Get a flu shot every year. Ask your doctor when you should get your flu shot. ? Do not let other people get your germs. If you are sick: ? Wash your hands with soap and water often. Wash your hands after you cough or sneeze. Wash hands for at least 20 seconds. If you cannot use soap and water, use hand grand scribe. ? Cover your mouth when you cough. Cover your nose and mouth when you sneeze. ? Do not share cups or eating utensils. ? Clean commonly used objects often. Clean commonly touched surfaces. ? Stay home from work or school. ? Avoid contact with people who are sick during cold and flu season. This is in fall and winter. Get help if: ? Your symptoms last for 10 days or longer. ? Your symptoms get worse over time. ? You have very bad pain in your face or forehead. ? Parts of your jaw or neck get very swollen. ? You have shortness of breath. Get help right away if: ? You feel pain or pressure in your chest. ? You have trouble breathing. ? You faint or feel like you will faint. ? You keep vomiting and it gets worse. ? You feel confused. These symptoms may be an emergency. Get help right away. Call your local emergency services (911 in the [place] ? Do not wait to see if the symptoms will go away. ? Do not drive yourself to the hospital. Summary ? A viral respiratory infection is an illness that affects parts of the body that are used for breathing. ? Examples of this illness include a cold, the flu, and a respiratory syncytial virus (RSV) infection. ? The infection can cause a runny nose, cough, sore throat, and fever. ? Follow what your doctor tells you about taking medicines, drinking lots of fluid, washing your hands, resting at home, and avoiding people who are sick. This information is not intended to replace advice given to you by your health care provider. Make sure you discuss any questions you have with your health care provider. Document Revised: 09/08/2021 Document Reviewed: 09/08/2021 [employer] Patient Education ? 2022 [employer] [facility] Patient [facility] Patient Letter [facility] (Inserted Image. Claudia ble to display) [address], [place] [address] March 28, 2023 CH[facility]O [facility] [address] [place] [address] : 1995 Please excuse CHRISTIANO ZHENG from work . Date and/or Time of Absence: From: 03/28/23 May return to work on: 03/30/23 Restrictions: None Comments: Please excuse due to an acute illness. Provider Signature: Mable Stephenson PA-C [address] [place] [address] [facility] Referrals Officeon Referrals Office [id number] [id number]#[id number]: 127 [facility] Coding Summary.on 08-07-2022 Coding Summary. [id number] Gh0b Ww+PGhlYWQ+JP2QSTQpH79xj HEmoS6KQ8aZPV2AIQXPJROAU V9EJP7kkFV8FLdnF6KyopZz TvuhrVFvCZ92TKa8DWU6uDga DQvgaM6tfICaT9j7LcYqFA39 qB56NJwwRMIbAnW4YlWbjhmx bWFy C0btEcUveDNwYvx+PHRhYmxl IHdpZHRoPScxMDAlJyBzdHls HK9xYb1fIAHcBOQmfMzgxKXb OiBj y4peAMTuGChgBT2inMgfU4Lz bWC2KMVer3e7Mb74oHU+PHRk KRT2fKvoQCvpm281DaXzh2dk IDM3 sYVjFPohCVV0I86st6W9CECs LICsTFB5dXO9eE7yeRruvwjk J6JmtWWnLjH9GHJ1fHCtrX1b bGln ztrwwF2kQks+W26SMX0BOAIP QV6XDfp7A1IfTzjmpII+PC90 RHLdEM79iBWwmHXwb8mlfNk1 JzEw QIReGTM4nJyuOKlyq8AvMQNw N49woYBgd2R7KERpoZhoeDYn ZoMamGR9jW5lKTnalyqex5jm dzsn Djiqs2gzpw61dD04M64cFCdn HRPhMKS4FIRhGBSrxRdeeu1e rS1cUl3+ROgsf8oed7lwkLp8 IjIw BZHajtIgfBhsCBH3a9ExNz44 Y6IezLlqf9NcAkt5rs65dEXk x0M3lOA3TKfoHHBcsK1aRHuj ZnQ6 IIZoTpGkwL22fQUiCSvuFn4r jYzyqNhbTF7cABFwhxejAPKw lO2hOXKgvNCdwZicGO8hDQYk bjtm k172PdSkPJB0NLCnjWHdX9Ci tA1eFxByDHXtCVZkG5YmmNSu GFzeL896AOanXgG0QPHtimXn Y2Fs LYAtsJikJbT3j5O2Jr5Ke7If yaaoOKZ6MFmhECIvLqWxVhYq EjN3R2LcBks5NOBgyKnqUK7l J3Bh JISkvhygxtthnMY3QXQqBTTk qN12hZGmUCfdBi6ha5Q1v576 YOMnROQjfV04Jp2kkPtiQVWh dCBU lH5rnpmip9qumqmyCwLiSBNc UUg4MSc5KEHheQjbQxFnZZR5 WyI5OMJ6eQZtlG8naLgmkpzo dG9w Oyc+C23pkX7iAQT7YXO1zzzb RUJexdIuAH16OU49O4VuHztz dGFibGU+JGEsbrLqvXvpUK7t YmFj h6tzy2LpHBrgY4GuIGRwJLmk Asr6YNPwAIL0pZW2jW1mEOTu JEhrx0F8dNR5Y7XolxCkjc1w b2xs ZOXeZWdhX51sbPRbo5Y3DTTh qHP0IVGhbIsqGlDubO83Uqt+ QVJauKdrf5OrXrveq6onp4gq dGg9 JyAoUWQfzmDbhTzpHRH9f6By Qv19C79kEKqrZCGxNAWeJXIx OQVubUdclu7bnQ3wCv4+PGNv bCB3 mGA5nH1mJCJvBcZ5CVznM497 MqFpaIEbRikws5ufr9xjsLd4 IxPpZPHifmMdkBkeTKM6u3Ut Lz48 M14yBFcqTILhYQTdRERrRHIs hHxvwz1ubY7bRm0+EB9rl8mf lt91uC83wVT+RZIwHSY1oPiv PSdw TXLenY1cMSdiJiZ3BIQaGdSx jD57jUCuYMzpFi6isWsliJjg HP3jNALtakghg562DbWyi2zr IDEw aTFcYOlkVAP9B80gv5U7APBo ZPDjGIL3dJP8dS9chYatismq bGVmdDsgdmVydGljYWwtYWxp Z246 IHRvcDsnPlBhdGllbnQgTmFt DNr5F2MhSuw8FNErtSmfUV9w aNPmMRgjKm9hgTbhzTshRA9s NTBp rzugu025NjEka5gzEXRyoIBb DCccUFH0H81dp0P1YMZvIBRd SQG1pTM1xG5ohBoxdayylDZs dDsg cuPnmSurFQzsUHisD032HMOo wVmbBiSncsYfCRTjfOF2MD11 OC04gEVjr3Z3kDQ9R9RxEZZf bmct bsjcwJS9RDSnONHqlK74Gz7g iJhcRs3xSVHcKAB6XRAfnPJq S9AxxE6jVaOvOCLiNIRxW5Ie eHQt AWugU754HOxyHsD7NAZlyhNf K7AdRYAibTwtYcB9z4V1Qr2X P8P5BH83XK57pICdo2T3vQA9 J3Bh EURgjxrwehkhgZO1YYEeEZDf sT71It5lvUmtBk6dKJRrGCW4 HTUerTFnG2FbtG1sVfKeMKLp MDAw P3JyyUZgJOcbZ528ECdvWoE4 FVRpzyZlW7GzKNVleBwzFqM4 e8L7Ts5SCMe6OC20ZU13jBFh c3R5 aWH0D5NzQBTkxmtcmgdzvTC1 LCLoEXAepZ28Nc4jcFjwPd5a FGPmMNT6RFKiaUZzA6SmfO5f OiAj QGJqUMMjI9UgnKZnATgbT037 NDorXfI7DOMlkhXeG9YyLETs pFvgVnD8i0U4Zw8DOCZbEV91 IFR5 gBT1WR38CU99K8KdIlxkqCCu bGU+PHRhYmxlIHdpZHRoPScx WPCuNpQaqKdmOL3iAj1lFHBl LWNv iXfkcCVcSwCci0tzEDTkRZmk SF8elFxyA5PjkXU1SBJzj5z0 Ni12H88yM5BtuSC+PGNvbCB3 aWR0 zZ5pCqQgKoY6KFocB278SwGm nXFwTqmcf1lim5ycfGu8UeT7 GFCzuePjeZmhEKV0i7UsHz89 Y29s IHdpZHRoPSIxNSUiIHZhbGln qs8bsK8kMs0+JQOhvTW0nYB9 fX7iQhRqQyL0JPdvV792CrGk cCIv Vzlzs4ysu7rnoOy0FdFtODSl qcCndKpgPGS3g8VkZk89J9Pl nEgal6ReVka6mf83mHDsz2T8 bGU9 U3JwQWHzxscvtLVdyJyfQO9v JWZodyxaZKLjfD2hEIXbO3f4 YjEgIqH6QKesW9CefnS4VNIh cHQg GUneLQU2Z18hz0H6MXFzRTMs XTS0fCC8hU1ymYbzeanmoHWo lLhalpUshJscKGvrKRxvE991 IHRv uVcrELAmhL2lEQQmrLSrkWou YV6eJPUdouoyJapIRskcVIoQ WrCBMN70PE40nIZti7X6cEB1 J3Bh TBLmyjlgbimniEU4NKFqHCHp pB29iUPuGMnnCz3ci3J4r180 CFUjWTFzaN29Jg7ddSfxIAFs dCBU jQ6fpcrza2ejeaueWyKzEHTi NIq7HLv7JSLwbJrqBxEsSHI8 AbZ1ALD3pKWhfX9cjZanqllr dG9w Oyc+FMEnMqJyHEs2VPckrDV+ YSOcRYI8iIenNHxuPTCvaR2u LRRmX0h4AvCxMpV8LJslB4Tt ZGRp qltpCw69rN2cSuXcIjJ4NVef Z9LrhaY4OGNluXWaTUedUUH6 L97zc3F1SFYhUBWdNED6vKJ1 dC1h bGlnbjogbGVmdDsgdmVydGlj HXjbLAcxR771CSLfuSkoKnZ9 DNavBZPrSY88TI64rRXsw4J2 bGU9 L7ZeIIVlyiqpbneiiML1TXUt EFKftL81wEOrHKvnCr5hm2V0 a192IAGiUBTjjB16Zc0rlBau MTBw pIBBnG8gifzbl1rcarsaSrUj YOCrCGe8IDj4IUIbsAumWnRi NHH9EbM8COT1cRTqdN6keSba bjog bD8xBwe+TWFsZTwvdGQ+PHRk WIA6bXzpTCxzKPLswW9tMJRw O6i8CmHfSqI4HJvfZ1OhDDZr bmct Qr58hV0eZgNkQoQ0ZSscO9Px tfT1HYPssQQbRGrwMBO9N73d u1Q4CDGsQHVbIYY5gXQ0dH1x bGln bjogbGVmdDsgdmVydGljYWwt COgjJ802UIPfdXebGvQgvF1g TWFuYWdlbWVudDwvdGQ+PC90 cj48 G0InMvngZtn4YBInPNR7jMD1 mS5aJQZhWQxdw4P8pXE2G5Sn mgOrls0di2uaQVBuEMpgJ32a bGFw j3D3FMUijGF6TEDayVmyGnId mX57Tvk+PMRkvPbam7QlTupm v8ikg0obbZe1ItUmXIKmxuCs aWdu LGA1x7TsVs41W94tFFfwVJVm JPHgXEHmLHKicQnmyt9fyE4g Ii8+YNRfpAD3xQK6qK7aSsAh IiB2 AQlpT154HfUskLUnXratu0bk d2twdNk9QzTmVYAarcWnmUoy XPB2v3QeVe99V5FplCigr8Hn Pjx0 yj85uUUrj5R1rVI3H7UwKHXv qrtpwWLryYqjZI8tIDXplfsl QJOrsL7xLMXwY3i3ZnYtLnJ9 MGlu G2KtnmC3HHMucLNzJMGlzKDX sK8qyhqfe1bswzdeKfJkSVSx BYz0XOm2CHScfCyfImDjMHS5 OyB2 VFJ4rBWxhF1chExyfbsinJ1f Oyc+WGo5p9gxgDTyDU1iwKG1 TZ24KQ65uSHsq9T4dSF9G7Us ZGRp hdguuydthVK9WPToVDVycL23 Fr1rfZzqPx4gSYSeTXX3LTDu hNVgY3RkfT0oCyBdKCBaXONf O3Rl gRCsYEldK945AOzcXgL4ONJm xkHaG9MzOWJcaVuyVcD8y9G2 An4CZV84UM52JD27yDYlj4Y7 bGU9 B7QcWOIewkufjbrsiOE6GAXu NQQclA51Vx3pgXrdHl5iGNIm LXU3CSFdzVXqK3YwnZ2mDmJl MDAw IVGlM1KglADnMHhjO928AMkw SmY5HECimtNaX5SjJKPaaOlg LyP8v4V1Ha2IPs91EC13DP64 dGQg h3U7kVI3L1RfTKCecdjndyxh iGI2XVZfMWTfmT09Dx0pjJtt Vi5pTVRkHZY7NLDzpOIuU6Da bG9y QaKvEAHaOOIgE9HyvGRrSOrs G859OKwfAcY9GBQngoCpI8Np ZWIryUarYxU7n4K2Do6YKDvs cjo8 G1OeIiekcMG+GS15DZUjHE68 lGZtzOFyx7gwdTk6NmHsHLCe PLL2bBsdEZjok6NtRNXrI34c bGFw c2U6 (more content not included)... Normal [facility] Consent for Treatmenton 07-19 Consent for Treatment [id number]#1.00CD :127 [facility] Consultation Noteon 08-04-19 23 Consultation Note Patient: CHRISTIANO ZHENG Age: 26 years Sex: Male : 1995 Associated Diagnoses: None Author: Leah Myrick PA-C Subjective Chief complaint 08/04/2022 15:00 EST Neck pain . Patient is a 26-year-old male with a past medical history significant for cervical neuritis, cervical degenerative disc disease, and myalgia. He underwent previous C6/7 epidural steroid injection done on 06/13/2022 that did not give him any long-term relief. 100% for 3 days but nothing more significant than that. He has right-sided neck pain that intermittently goes down to his arm. He rates it a 2/10. He was on gabapentin 300 mg at bedtime but it did not help so he stopped it. We had recommended some imaging of his shoulder to rule this out but this was denied. He states that this is going on for a long time and he really thinks that he wants to just get a spine surgical opinion. Health Status Allergies: Allergic Reactions (Selected) Moderate Dilaudid- Hives. Severity Not Documented Morphine- Anaphylaxis. OxyCODONE- Nausea., Allergies (3) Active Reaction Dilaudid Hives morphine anaphylaxis oxyCODONE Nausea Current medications: (Selected) Documented Medications Documented acetaminophen: 1,000 mg, Oral, TID, PRN as needed for pain, Refills(s) 0 Problem list: All Problems Former smoker / SNOMED CT 16693574 / Confirmed BMI 23.0-23.9, adult / SNOMED CT 9855737952 / Confirmed Family history unknown / SNOMED CT 1329236308 / Confirmed Screening for cardiovascular condition / SNOMED CT 996928631 / Confirmed Enlarged tonsils / SNOMED CT 269200462 / Confirmed Difficulty swallowing / SNOMED CT 03364205 / Confirmed Constipation / SNOMED CT 35547088 / Confirmed after GB removed Hemolytic anemia / SNOMED CT 138173090 / Confirmed Non-smoker / SNOMED CT 38897869 / Confirmed Stomal ulcer / SNOMED CT 9607776160 / Confirmed Splenomegaly / SNOMED CT 33755794 / Confirmed Hospital discharge follow-up / SNOMED CT 0043153393 / Confirmed Hereditary spherocytosis / SNOMED CT 63919444 / Confirmed Testicle lump / SNOMED CT 784536210 / Confirmed Cervical radiculopathy / SNOMED CT 449236519 / Confirmed Cervical spondylosis / SNOMED CT 8464352580 / Confirmed Muscle spasms of neck / SNOMED CT 1454583670 / Confirmed Insomnia / SNOMED CT 671240110 / Confirmed Medial epicondylitis / SNOMED CT 60859512 / Confirmed Anxiety / SNOMED CT 04880817 / Confirmed PTSD (post-traumatic stress disorder) / SNOMED CT 08585712 / Confirmed Hearing deficit / SNOMED CT 29228185 / Confirmed Lower back pain / SNOMED CT 373925186 / Confirmed History of neck pain / SNOMED CT 8618115413 / Confirmed Resolved: Cholelithiasis / SNOMED CT 729856028 2009 Resolved: Sleep apnea / SNOMED CT 884740215 Canceled: Well adult exam / SNOMED CT 725391974 Canceled: Sore throat [facility] Canceled: Pain in the abdomen / [facility] 49[facility] Canceled: Fever / [facility] 4924887303 Objective Vital Signs 08/04/2022 15:00 EST Peripheral Pulse Rate 104 bpm HI Respiratory Rate 16 br/min Systolic Blood Pressure 132 mmHg Diastolic Blood Pressure 77 mmHg Mean Arterial Pressure, Cuff 95 mmHg General: Alert and oriented, No acute distress. Eye: Normal conjunctiva. HENT: Normocephalic, Normal hearing. Cardiovascular: No edema. Musculoskeletal Normal range of motion. Normal strength. 5/5 strength of the upper extremities Integumentary: Warm, Dry, [place]. Neurologic: Alert, Oriented. Psychiatric: Cooperative, Appropriate mood & affect. Results Review * Final Report * Reason For Exam M54.12 POWERSCRIBE REPORT IMPRESSION: MINIMAL CERVICAL SPONDYLOSIS C6-C7. MILD TO MODERATE NONSPECIFIC CERVICAL LYMPHADENOPATHY. CLINICAL CORRELATION WILL BE IMPORTANT. EXAM: MRI Spine Cervical w/o Contrast DATE: 05/19/2022 CLINICAL HISTORY: M54.12. COMPARISON: None available. TECHNIQUE: Multiplanar MR imaging of the cervical spine was performed. FINDINGS: The spine is visualized from the craniovertebral junction through the T1-to the diagnostic sagittal sequences. The visualized spinal cord is normal in signal and caliber. Mild reversal of the normal cervical lordosis is present, without significant subluxation. Several mild to moderately enlarged cervical lymph nodes are nonspecific, measuring up to approximately 1.4 x 1 x 3 cm - left level 2A neck (image 8 - axial series 8). At the C6-C7 level, there is a very small broad-based right subarticular disc osteophyte complex, which results in borderline right lateral recess narrowing. The C2-C3 through C5-C6, and C7-T1 and upper visualized thoracic levels are unremarkable. Signature Line FINAL REPORT Dictated: 05/21/2022 11:00 am Ino Roberson MD Signed (Electronic Signature): 05/21/2022 11:00 am Signed by: Ino Roberson MD Transcribed by: MARY Technologist: ROBYN Technical Comments None RAD REPORT This document has an image (more content not included)... Normal [facility] Comment on above: Result Comment: Elec tronically Signed By: Leah Myrick PA-C\.br\Date and Time Signed: 08/04/22 15:14 EST\.br\Electronically Co-Signed By: Sen Burgess MD\.br\Date and Time Co-Signed: 08/08/22 12:31 EST Office/Clinic Note-Physician on 08-04-2022 Office/Clinic Note-Physician [id number]#1.00CD :127 Normal [facility] Patient Correspondenceon Patient Correspondence [id number]#1.00CD :127 Normal [facility] Patient History Officeon Patient History Office [id number]#1.00CD :127 Normal [facility] Coding Summary.on 08-03-2022 Coding Summary. CD:[id number] Gh0b Ww+PGhlYWQ+AE8MOZLgS84he GBtmM9DE4uQUN5PUAGFMUQWO T6KIQ1ndOJ5HNrnS9WeddDd VsuahXZnMD90GIx3BCO3pIrl CUrbmZ8iyBMjV0m0FwMvLI40 kU89XBnnIOMlZvS2QzOqjdwh bWFy U5qyQxXslPFoYsu+PHRhYmxl IHdpZHRoPScxMDAlJyBzdHls VE2hEb7bBRIuXALsnPyntACh OiBj g8teXRAfRNwvMQ6otIqhO1Km hJL5TNJfu0h6Ig20dKX+PHRk DGZ3yRcgYLhjz350InAlf0pf IDM3 aBLoJRzqSOQ6T90vm4H0KAHi TZZsFZA1oEK3eL9baSgvujru O6KthEGlWvG7WMI6zXZyfV8x bGln urdofS4tKfj+H31AED7ZORJP HY1DPrn7L7FvNhtakNK+PC90 OTTxNV60aMEajUGzl5fgeIs9 JzEw JEYtIPF9sCnvKCddp1AnROQl M03krYUsw1F7MEBheOoczSHc RwWpoTI7tT9oYZmdoxjea0mw dzsn Jitmg6rrmm50lF21O54zESoe NHZgHMX7ERPzJZBkcIdito0m wM7dRv1+ODoln0mvj1pbuKg6 IjIw OVUdkrUepPryWUQ9e3LzTd29 P9UqpIrof2YdCsc5mz79kBNi a4S3zHY0TAhkKDEyeP7rFNwm ZnQ6 YFEqOmAfdH66nUKuBJwgNf2t wRsupHfiMC5tHJFclkfjRSHg zT6bUJChkWHbeHjzYK9tZDSb bjtm t936SmJkPCK7PCCnoGHeI7Iu rP4rAbNzVXOgJDCjJ6SrgVPi MNguY203PTqxRlI7NBYmnyLk Y2Fs GNAinUkgPmH6j3Q4Ov1Nq6Eb jlyyOQQ7XVntNMVvHkQ0BlYo DxT0E7SbXco6PCGnpMuzLK6z J3Bh YOLisfnmxwyrtYE2BNVnVUCm tK90yOXzEJsjUu1iz9M3u076 RDGiMERuiH73Ms3suGcwLXSw dCBU dZ9cxdpbk8bdnfuwXlCcCCSy JDp1ZZq0PGIciPoaTdMtLLT5 FqK2SZO5aMOzsR4ecSbclsxh dG9w Oyc+A40mvW6lSHA4AAK8ztqc WSCopbVqQK40KD12S2CfLrhn dGFibGU+EBHqdcZnaDbdJC5z YmFj g1yhp2PtYDjsX3DaXSNrZLox Qfo0JYZcNCS9cAL8tN1bJKQo WCjzl3E2gMD3P6XkvkRzuz1l b2xs GISlLHbkZ20rnYDow4I4VHUu nEB2UMKowUefAeSocV51Pls+ ONXmsUter9NqOgxdb2efh6yr dGg9 KjCgDFZbfkUzvAucVQM3x6At Ng24X58cWOgdEURbKAFxCLEg BVUkvZxres3oiV1mFk3+PGNv bCB3 tPN7qD7iJWOwFpD0UNilG405 DsDjxIOzSwesb5uds2mxgXo5 AhOpVAOxixKnoWgqERQ7q2Zp Lz48 H50tPOjiMXBdDCTaKBObLBXu fOqgli3kmW6bHe1+XJ5be7tt dn41eH25bWS+UCCoRAI8kHhr PSdw NQRyfQ6gCBrrFoT2OXMsLhJc oS10eJSnCAhyLt8rbBkvzOdu ZW2xRPVbcwext256YpAup5yb IDEw zEFnZMtaAZH4W37nk1U7HYCc SETkOUE0lAV0tD6xrGoeaixf bGVmdDsgdmVydGljYWwtYWxp Z246 IHRvcDsnPlBhdGllbnQgTmFt BKg6T7JgFec8OGFfoWfgLF5n dOOnVFyrRq5agZqmtUyaAE4f NTBp rsgge981PyNww9vlJKNasWTj FRwaYOR3U33yu7Z3SKApGCAg PGT0eCP3lF5yyOzfhyppgVRu dDsg wxGfdTnqIBwcMElaG076OIOt sAkbQqFdonKcNRXdjYO2FH65 OZ36jJAyj9B4cXO5K5HaHXWr bmct mjxvrMD4IXFaJWAcsV63Xm5k vLtsQq6yYEUtWEA0GEOusKJp M3YomW4xSuNvSRWrUBPkM2Ke eHQt HUtmK187YYjtKwH9QONuccNi U2GcSPRnbEvjEpZ3o0J7Sy9R F1F4XU96WU60gBPdf3X9lWS8 J3Bh SHZsjjoaogozvSZ2MAGjPTKu aY98Ng2qoYjyAp2rQBIdNNQ8 WXDpmMMeO9JekF8mDlYxMQVe MDAw J0KntNLiPZlmX817MTouOsY2 KBUshwFmS7TuXRRnrAuiHvH4 g5W9Vh2NXDo0RL86RD42kKGl c3R5 nQT2K4RzGABoonezbkqunTQ6 USStKRXrwH18Qj1oeZmpBd2w DQPlHOB8KIFivZMmK7UhdX2x OiAj BFSzNSQwV6JgcHKqNSqeV389 KKbvZaH0GZYyipAvT6GcGIAz bPtiCbA1a7P1Cj2KSEEpCJ16 IFR5 rAI2OS21EO89V4VhCisylAPl bGU+PHRhYmxlIHdpZHRoPScx JWZoAmXgnXjeUS4gEi3oYMPw LWNv jRedeHIaFeGqb0kbEKByJFno VY4piKgtU6AapZV0OWKpq5p7 Mb52F50kG2GtnLA+PGNvbCB3 aWR0 jN1fYwIhZoI4RDdfY496UcMu mUQjSzpol1nim6kveCy4YoR7 LJQrncQfaIxlVVZ3t6EpFl28 Y29s IHdpZHRoPSIxNSUiIHZhbGln dg7ibA2hDq9+XOCqtYU0tYV4 uB8nLiHrFkU8OZsaX503PuLz cCIv Wpkig2mhp7djmAo2ChHkLYLj dqHfmIfaVRF9o3QaDu24K0Ow oAcws8NaYrw5ut27gVLrf6O5 bGU9 E3NhCWYfqykeaLSfxMzcXZ0w CFXpdjfjWITskS4qOYPmW4z3 ToRrRcF9ZXtcU3AleyS1WXSu cHQg EUgbLIU6H26xx9F9CRVsBTMz RIS6mUB4mA8kiHqjardfuUDd zFenytRqgNhrCVkaMCwfK744 IHRv iGytSAXpjG9zIJQjzVMliRcq TS9gXJJfaraiCsgGJijoPYdT KxMPRT36RK44iYQkv6M0dJL0 J3Bh ESAcelypxpfudZE1KYIoITLm fE73iGVjIEehQj2ah4G1w027 UTEaKFPgdY51Mf7ugVpjXZBe dCBU wB0gevjbv4npfmokDaCsFANr AHm4IOv7XVTliGmiYvDsWXA0 GfA0EWD3eVNymS4aqDygopxq dG9w Oyc+HPAnCsWlCDo9YTgsbLA+ UVHpHTE8wHqoCDzvYVKtcG0w SAYaE2t7BdGpJvC2LCphC7Jv ZGRp ppvyTv78zZ7yFeLrSlS3XVdc X6NtzvV7HTMhsPHcZJhyMMS1 X59gl5E6QKNeSJUsDAD4oKK3 dC1h bGlnbjogbGVmdDsgdmVydGlj NNsoQElfO883KQZuyJndZoW0 OOroCSIqPS94PJ83bMLri5N3 bGU9 C6MuCCWqrkaofacbkSX0QDVl RIMplU83oEWuRQdrNd7qj8Z9 i922WAZaAQCbqG62Nh1moSah MTBw hRCBpE2gtohyv9deivxaQtPe CWKvHUm0ZZt0ZJNxpJagAbKs YDY6KpC1VFV8iEDtmN8jzCpb bjog jR1uAsr+TWFsZTwvdGQ+PHRk KRU5dDpuAMvnCJLvxY5nBSNq W0q9PsAkCqJ8MSqyY2NxNAWq bmct Ib40nH0iZkDrSvE2GCdyJ0Ul mwZ0ZYEnhGKuVDmsUVB7J30s a6C1CUZpYEAtFPM4lAL2nZ2b bGln bjogbGVmdDsgdmVydGljYWwt LAnmU349GSKasPauOh85gUUj zNspfbH7T9LrWnnfeOL+PC90 YWJs TO62vSQhkUFmk0ubtUg2CpTt QEGzGFH6mMgkJCvgl0KzGNAc W59veHFbf3H4VSCthGhkfTSs OyBl bZN9bI9eLJxkywrkx8glhszf Nycvn5lbnp26rU97O12pDLzq NHDqJIBlHCLhLTXezWkkjc5a dG9w Ii8+SQYzdEZ2oRQ9qJ4pDlTx VhP6SProL521HmJhmJCyNsqw k6xxt9gbmDy1OjWmJMApryQb aWdu VEZ5f5DwBu33H89vIErnXZZk IGVjZDMoRAJvwXxwnu1vtA5y Ii8+DN4kv9rdza98mN18pIJ+ PHRk HCB1bQhtSRefLRLmpY3pQYmv CbH7RAFlLeGsjY12tPAlJGch Yz0vuVxpvQbsMX9zGQUalque b250 FuOad0ibLPGqvGEfUCmoKJV3 K66fo6O2PWNaOXOpVYK8bBK2 jE3smIaogazwoBOipWbrjdUa dGlj WSsyIHhnA501RJGsiSppVoQh bCIiB4arpbDCAH9bUdcszRS+ QZEvEXW6pQlxBWuaJPXfsJ0l LXJp G7f8NlTeYeD6OCiwR0EatbA9 PHWqqWNkMEPgvUSJcB6rumyk n3tlikokVdVvMUWuALs3QKh4 LWFs wQyrDrQdTKN0NpT8ELP4fKEd kZ4zoZgjnevrrV8aGgr+RklO OjwvdGQ+ZSPuRVK9hJurMVux YWRk kV4dGMQkX9m3YgHxNkL6PSxl T6BeosF0NDRghVJgUOMkwKSV qE8wgdwke6evhvsoDhFuVITw MDt0 BOk1MIZitEveXbRnOIK5OlD9 MAN9wEHleP9agMtbtznfxL8t Oyc+TVJOOjwvdGQ+PHRkIHN0 eWxl GOscFSVafW5bDLYjG0j6CgEv UrB4LPeiL8ZdcvU7SAWenLKa GAGsdGDDiA1frynjv5ghfimu IzAw QCDvNUt9RIz6KVIoiUcmWgSc XUD9IdE9DQE5eHRzqY8etUby dflrnS6qFpu+XIR7PVL9MO64 ZD48 E2WeTubquHOdgJY+PHRhYmxl IHdpZHRoPScxMDAlJyBzdHls VZ8xRg5jZAWgSWIygFhkzBNm OiBj b2xs (more content not included)... [facility] XR Shoulder Complete Righton 07-29-2022 XR Shoulder Complete Right Exam Date/Time: 07/28/2022 15:58 EST Reason for Exam: M25.511 Report IMPRESSION: NO ACUTE PATHOLOGY IN THE RIGHT SHOULDER. EXAM: XR Shoulder Complete Right 4 views INDICATION: Sharp acute right posterior shoulder pain. M25.511 COMPARISON: None FINDINGS: There is no acute osseous, articular, or soft tissue abnormality. No additional findings. FINAL REPORT Dictated: 07/29/2022 10:19 am Lebron Almaraz MD Signed (Electronic Signature): 07/29/2022 10:19 am Signed by: Lebron Almaraz MD Transcribed by: MARY Technologist: JASON [facility] Consent for Treatmenton 07-19 Consent for Treatment [id number]#1.00CD: 127 Normal [facility] Physician Orderon 07-28-2022 Physician Order [id number]#1.00CD: 127 Normal [facility] Physician Orderon 07-26-2022 Physician Order [id number]#1.00CD :127 Normal [facility] Insurance Correspondence Off iceon 07-21-2022 Insurance Correspondence Office [id number]#2.00CD: 127 Normal [facility] Coding Summary.on 07-07-2022 Coding Summary. CD:[id number] Gh0b Ww+PGhlYWQ+HM0CJQMfP69dk SFteS3VF6oSBO7GHXWJRPASH S7OPE2gmGK8MVhdW8HmckAv AntylMKvSN81IJa3TYR0fYse NUzlsP7rgUXmT2u1WqGlSE17 mR83BSklGNDbHqY7YwYmqahw bWFy N6svHnZtvDCwEyd+PHRhYmxl IHdpZHRoPScxMDAlJyBzdHls QZ0oLz4qYGWiVJHqsRmjeVNq OiBj k7siZBVsQJnjNK4agEpfP6Ju rVY0WQPwr0s5Xa41jGE+PHRk ORY4tVbjNYots877BeMck2cs IDM3 aTNnJEwbXDU0X02ks1H2BGAn IJUgCAR8oFI7tH6whOjouwtd E8UcbDQpOkJ2FJG2qCSkwG8e bGln pdhysF1aOjb+G43AYR3YNEHX FF5QZab9N8MgWctiaYL+PC90 GLWgEL07sPWxtWQzb2xmnTa8 JzEw EAHuALR5jIucFHsls2ZsJGMf Z92miBUkr9B9RBXooSlprQXx GdKihGU3cC9iWRupgsude3ra dzsn Hhatp5lofc00eA18A49qZHfy LMFzREQ5BXHvXUKcvWnryp1z dZ4xFi9+ZEnje0dkb6nkyDl8 IjIw UAFiifHyjHhkZBH9b4JsLu70 Y1TbzYbdq3FmFed5au42rFYe q6Z3mAC4YVzxGGRooG3yPBkk ZnQ6 RKGtZxOztD50kBRrDWavPd4c qRpqjLslXW7tHQYpzhghJWJt aL2mDKMhrUTafCezIZ1mKRCz bjtm c109TnVeBGP3NIPoqTRdC6Sx eH1uCdDzTCOmXCYrS8KphWOl NVkvN527DNjrHkM9GAEhljQn Y2Fs ZLMivMmiVbL9t9Y1Cx2Xw3Kl iqozCKJ9UMaqXFShTtJfSnPu XbP4M9RfKxu4JNNqhEmfYN4x J3Bh LRHxczfmzqezmOJ4EHRjUTFq dK28xDNmEQnyAw9fb1Z4i446 CSGaFEKuuC24Qy1kpTuyZANf dCBU mN9vttazn5jvoxijWkVlOXUk THw6BTs2KMCraFkdDfUbVQQ6 PoX2XZR2bIHhqQ1xdAaxbsgk dG9w Oyc+L20jjM7qCMX9IBG3yixt TKFuvsXcYH03QO18R8KyFdbf dGFibGU+FSAdoxZqhUczTO9z YmFj r3dzo3WdMCjzQ4CkEUDbQSbc Uoo1BQSvDAC0nOQ4gZ7jQKSr CEwht6M7zMW8J1DrogTjzq6m b2xs UQOgOEezQ01phTTsu4M5EBIl hYG7UDQdhBwiVqZjrI22Cfv+ DPZjiDsxn8ZzSpfec5lwp9vm dGg9 JiSqHOKvudHiuYbpVYU5g1Br Hs48L28dEVaeXCLjMFUiFTFs TGNdnBxyoz2yyC8jOo3+PGNv bCB3 cJE6sZ7vRBTkOzS6DRocS648 HqMfcNNjPhvht2syf0qcwDq3 NmDmNHTnjaOirUybIBI4v2Uf Lz48 K70jLIflEJAbTLUfZKQkHLKa wIcygv6ajD2dEg5+QY5me4tg xx66vB47qVB+BROjBWX0lDnw PSdw QJStoY9qIOgaLnN9ZSZyRvLc lT89hUJvNQctUy9gqXccuGoa ME7oLGLkveedp313RlCgi5lt IDEw aQLeSFjgRXZ2Z79ez9B6XIDf JBXkALA2rQE3yU1fsYasomca bGVmdDsgdmVydGljYWwtYWxp Z246 IHRvcDsnPlBhdGllbnQgTmFt FJx6N9InXtc4TYHeuPohJH8v fTBdFTzeZu3ldTaulCsqBB2c NTBp tubue848ClCnv2uyBMQgyJPi EVrfJXW4M73la6C2WTVoTGFq DAM8ySV6aA2auYrjnkjnvXLn dDsg ngMpmMhzBQcjABjtE778UIGo zLfeYbSksqDpKOBluHZ1YY84 TQ83uAFyk1X5aTC4A6OjKAFz bmct kwdiuQP9INBhBHWuyG74Hz9m qGtxAj9fTFHrQED1WTThjBJt K0SiqH1nEpTuBWDnVEOqM0Ka eHQt PXtrS259EFcfFyM7EFKjafFj S3MgKGGfmGzaBxO7p2K7Fn4O D2O0CC24OX12fDJal9J7vIJ3 J3Bh BXNludeozlthuMK8YZFuGPMw fM27Wq6amPfsOt8fGYIoDXQ6 LAVsbRRhD9GraX8wVeHlZQFs MDAw W3YarQZmXRrlZ898UZbkFfY2 ZYIpkjLkX4UjOLHwqSrsPiL0 x4O6Ta1YTLv7XA90AR25hTVs c3R5 aQE2X9IaDXDpuhytmkcspLY0 MIGfAPWtaT49Qf0vdZbxNq0p TCJtBBP6FRIeqAZrV9FceT3v OiAj APVlQNJyH9HyfJRwVOrdD726 GHmaVuS4WPMemfSyQ9RrBHLz dPpaMmZ8w2P5Kt1ECDAeRN64 IFR5 mGU8TY91LI04M6MwDtvvmRZc bGU+PHRhYmxlIHdpZHRoPScx PEEsCyEikSslFC0wKv8dPLAk LWNv fTmkoPXmQnNzn3hzHUAhWMox LG4veVpcQ4WexAF5LUZur1a5 Uw81D56lE2VslFG+PGNvbCB3 aWR0 mH8fVdRyHuQ0NGxeV661ByVc vOPjHouhm6ptn9ivsFp7WiR1 PCPbosNynIitKOF0w8VlNi22 Y29s IHdpZHRoPSIxNSUiIHZhbGln lm4fuY2vDp7+LPTksSF5bFH4 uW9qZoGfCfJ1WUbtX078RrSn cCIv Uplra8kaf5jveFo9EmQqCEGk uuXnlCepKVD8r4StWh08W0Tr vJmlm6MzJms8kn21vXEwr5T4 bGU9 E4EoCIExiizsoLRosJssPN0l AYHohzuwTRNtbH4cULFcN8t9 LkVsBcU2YHdkA4UwdgT4VDIa cHQg NMuaOZD5A38wd2P6JBWqLRCb LUP6xBP8aT5oyXipkunmqFSa iYweiyDnjZlaIKbyHPreH053 IHRv aFgsHFTegM9mARUwjDCcjMdl PY4yZPKtzxzoJufFWqlfJMyZ WvTHGM60CH63qQJea2K2wOO6 J3Bh AXNrtyllzdvuiLK2XFBnFMDn lF33lAYfEIooBp8ps2H0g460 JTOmOUBpsU70Zs4xuEvtUXMf dCBU zC4genfmx7aihjwkUqIhBBOy DTb3ZHb1TIEpaVugJeAcMVL7 TpZ9PRT0gWAgyR0foNadnynw dG9w Oyc+CUDqJqDaXPf9IIvkaAK+ TZGiINX3vTzwZGbxXKSuyS9u SGWsT0v7NcXpFrG1RIupU9Hh ZGRp upylJy66tI4kWsSdBcA2GQfl V9CyplL4JIUzpJAuXDldKWR2 H84ky4T3WRHpJXPfBWQ9jYF8 dC1h bGlnbjogbGVmdDsgdmVydGlj EIcsKAwpI958DSMuvWyaDmF6 CJarKTNdFT45BE46bMSnv2X4 bGU9 N3SpQDCbobbxmfzbmGL5GYCt TCCqkF70dONcVSrhWv8kt8U6 p953TWUeXYBznY24So4huBbd MTBw tUGDoB6ulijyi5geipvqLyWl KGHsJYa2DUk3UZJfeRmpFhHr XOO8AaN0RKH8cCUtcF6sjAxw bjog fN8dJmp+TWFsZTwvdGQ+PHRk PUH7lUzvGYrzKASuxD9hLLPa N3u8WqTyMbR5BQruU0XlAKSx bmct Xr94bT5bNfVwXlU2CSknY2Mx aqV4LVNngVDyAOqzDHG7C69n x3N1POKuGYAtACC0kEM2vL3g bGln bjogbGVmdDsgdmVydGljYWwt HSvvC214MYWhiUtgQyFbvJ8v TWFuYWdlbWVudDwvdGQ+PC90 cj48 U5YyLwjcUys9NPTqYQL0nGB1 eA9gRGHyBDrpl9W9iQH5M1Sv ygVfpw0kz0hhFITcAUtkN47d bGFw c1G1UKEcjMA7PKJzyMpwScQj gV32Ekn+DSNujErts8QeFkgv r3cau1cbdGk3BbQaAWPjeeCt aWdu GKJ6w2LzNk96W03fZPbfPPQb PJRoZQVgZUGorZstsm1tiK9v Ii8+ZWDoiZD8xWO2zA8pVfCa IiB2 RKpsB064LpOeuMMjOomwl3ja n2vbxCj4EjXpKGJllyVxmOal QTY3a1VrRa60T6WhwUftr6Mf Pjx0 pi49zFXtf9G1sVR5K2OoLRMs foulyBHduNfnXZ7vSDVqacfz VOFdbX3vAAWtK9j9OkEwIpK7 MGlu S3XvmlM5ENSxcZXkMGOaqMYV cD5dodksh1kzrosdHgMzEGUg KEy0GMa4SMMgsBsaSfJaQQA1 OyB2 IXX0eTKlqB3sqRpfdxdorL9d Oyc+KDa8y4ysgIUcAC6fpCU5 PQ85GQ97nSBhx0D7qHD4G2Wi ZGRp xrchfvyfjKY0IRCvGZBqxQ38 Ao1leXncUe2zHILpYBK6ZNHc zKYqP6QlrY8qLkCpUTWrQIKb O3Rl sPZrFGjsA143OBsgZnB7RWMh uvSsB0DvSXYpqLauIfJ3p2J2 Pe5KAR16KG87QV05gTRep6T6 bGU9 Q8BfFCTldwovezegiKA3COJn MXOtrZ50Bu4njOqzIp9dVNWa IOC7NOUtqLHtA9YknD8bPkPu MDAw HWUuO6FjiWMwNDntM642XWkp QaG6ZMTornViJ3UjSRRmmFlc ObK8t6G4Uh3UVr41KZ33BN62 dGQg r9X9wGN3V3KmYDRcvfgwlwtt wXP8UDUhPJBipZ26Tg9axEpa Vl9rDDQrWDR4NMFlbCUxT9Td bG9y FqOwTWReDNFeB1MikFXwWLwu R611EDqkWgC7SDVisxEdG6Bg FWVavRkaNaT8p2K9Gs6KQDpy cjo8 I7JrXnxkwUM+LM32ALSgJW60 lWDqcDEeb3cczAy1JbRuESWe ZMH4wDqiQGbsr2VeGWGyF77h bGFw c2U6 (more content not included)... Normal [facility] Consent for Treatmenton 06-18 Consent for Treatment [id number]#1.00CD :127 Normal [facility] Consultation Noteon 07-04-19 23 Consultation Note Patient: CHRISTIANO ZHENG Age: 26 years Sex: Male : 1995 Associated Diagnoses: None Author: Leah Myrick PA-C Subjective Chief complaint 07/04/2022 15:31 EST Neck pain . Patient is a 26-year-old male with a past medical history significant for cervical neuritis, cervical degenerative disc disease, right shoulder pain and myalgia. He underwent recent C6/7 epidural steroid injection done on 06/13/2022 that did not give him any long-term relief. 1% for 3 days but nothing more significant than that. He states that his pain is back to baseline and in the same area. It is in the neck, right shoulder and shoulder blade. Patient states that he needs something to give him some more long-term relief. The 3 days was great but did not last long enough. Patient does not want to have to see a surgeon but he does not want to feel like this forever. He states that it used to go down into his arm into his thumb and pointer as well as middle finger but now it is only in the shoulder blade. It affects his ability to do certain things throughout the day. It affects his ability to do overhead activities. If he does a lot of activities throughout the day it gets worse. When he wakes up in the morning it is better. Previous critical care nurse did not help. Previous physical therapy did not help. Anti-inflammatory medications do not help. Health Status Allergies: Allergic Reactions (Selected) Moderate Dilaudid- Hives. Severity Not Documented Morphine- Anaphylaxis. OxyCODONE- Nausea., Allergies (3) Active Reaction Dilaudid Hives morphine anaphylaxis oxyCODONE Nausea Current medications: (Selected) Prescriptions Prescribed Lexapro 20 mg Tab: 20 mg = 1 tab(s), Oral, Daily, # 30 tab(s), Refills(s) 1, [id number], cm, 04/28/22 15:31:00 EST, Height/Length Dosing, 79.7, kg, 04/28/22 15:31:00 EST, Weight Dosing Vistaril 25 mg Cap: 25 mg = 1 cap(s), Oral, TID, PRN for anxiety, # 40 cap(s), Refills(s) 2, [id number] 178, cm, 04/28/22 15:31:00 EST, Height/Length Dosing, 79.7, kg, 04/28/22 15:31:00 EST, Weight Dosing cyclobenzaprine 10 mg Tab: 10 mg = 1 tab(s), Oral, TID, PRN for spasm, # 30 tab(s), Refills(s) 0, [id number] 178, cm, 03/28/22 14:15:00 EDT, Height/Length Dosing, 83.1, kg, 03/28/22 14:15:00 EDT, Weight Dosing phenylephrine 0.25% rectal gel: 1 evelyn, Topical, Daily for itching, 54 gram, Refill(s) 0, [facility]/pharmacy #[id number], 180, cm, 06/06/22 15:30:00 EST, Height/Length Dosing, 77, kg, 06/06/22 15:30:00 EST, Weight Dosing Documented Medications Documented acetaminophen: 1,000 mg, Oral, TID, PRN as needed for pain, Refills(s) 0 Problem list: All Problems Former smoker / SNOMED CT 94679044 / Confirmed BMI 23.0-23.9, adult / SNOMED CT 7489777419 / Confirmed Family history unknown / SNOMED CT 5052562246 / Confirmed Screening for cardiovascular condition / SNOMED CT 976458578 / Confirmed Enlarged tonsils / SNOMED CT 517329902 / Confirmed Difficulty swallowing / SNOMED CT 51863635 / Confirmed Constipation / SNOMED CT 47318157 / Confirmed after GB removed Hemolytic anemia / SNOMED CT 364240890 / Confirmed Non-smoker / SNOMED CT 73586902 / Confirmed Stomal ulcer / SNOMED CT 0810244224 / Confirmed Splenomegaly / SNOMED CT 39348963 / Confirmed Hospital discharge follow-up / SNOMED CT 5624090359 / Confirmed Hereditary spherocytosis / SNOMED CT 76300860 / Confirmed Testicle lump / SNOMED CT 724205957 / Confirmed Cervical radiculopathy / SNOMED CT 929802348 / Confirmed Cervical spondylosis / SNOMED CT 8694440644 / Confirmed Muscle spasms of neck / SNOMED CT 0185438010 / Confirmed Insomnia / SNOMED CT 243536946 / Confirmed Medial epicondylitis / SNOMED CT 41874778 / Confirmed Anxiety / SNOMED CT 85973118 / Confirmed PTSD (post-traumatic stress disorder) / SNOMED CT 93412216 / Confirmed Hearing deficit / SNOMED CT 56019741 / Confirmed Lower back pain / SNOMED CT 990421656 / Confirmed History of neck pain / SNOMED CT 6746136927 / Confirmed Resolved: Cholelithiasis / SNOMED CT 858548715 2009 Resolved: Sleep apnea / SNOMED CT 678017341 Canceled: Well adult exam / SNOMED CT 711574221 Canceled: Sore throat / SNOMED CT 002419693 Canceled: Pain in the abdomen / SNOMED CT 64344194 Canceled: Fever / SNOMED CT 6099230601 Objective Vital Signs 07/04/2022 15:31 EST Peripheral Pulse Rate 95 bpm Systolic Blood Pressure 130 mmHg Diastolic Blood Pressure 79 mmHg Mean Arterial Pressure, Cuff 96 mmHg General: Alert and oriented, No acute distress. Eye: Normal conjunctiva. HENT: Normocephalic, Normal hearing. Cardiovascular: No edema. Musculoskeletal Normal range of motion. Normal strength. Pain with internal and external rotation of the right shoulder slightly Difficulty with overhead activity Integumentary: Warm, Dry, [place]. Injection site well-healed Neurologic: Alert, Oriented. Psychiatric: Cooperative, Appropri (more content not included)... Normal [facility] Comment on above: Result Comment: Elec tronically Signed By: Leah Myrick PA-C\.br\Date and Time Signed: 07/04/22 15:50 EST\.br\Electronically Co-Signed By: Jenifer BOGGS, Sen Dodson\.br\Date and Time Co-Signed: 07/11/22 11:12 EST Legal Correspondence Officeo n 07-04-2022 Legal Correspondence Office [id number]#1.00CD :127 Normal [facility] Office/Clinic Note-Physician on 07-04-2022 Office/Clinic Note-Physician [id number]#1.00CD :127 Normal [facility] Patient Correspondenceon Patient Correspondence [id number]#1.00CD :127 [facility] Patient Correspondence [id number]#1.00CD :127 [facility] Patient Correspondence [id number]#1.00CD :127 [facility] Patient History Officeon Patient History Office [id number]#1.00CD :127 [facility] Coding Summary.on 06-20-2022 Coding Summary. CD:[id number] Gh0b Ww+PGhlYWQ+KC9KAWOsB02cw IQnuQ6YP4aPZQ1ILBSESHGDA R0MNS5zwLW8EMhsH1RcbrDc CixjuQZoSC58BCa6HLY9kMlo VMyvwG6otSOjW1i3DdXeKW66 aB39AQqkFACvPvZ8ZpRcqzwv bWFy Y4nuUyDpdSWqCeq+PHRhYmxl IHdpZHRoPScxMDAlJyBzdHls EI6pCp8lQKLfYJRsoXcnoGEj OiBj z3bkLZEtIBpnOU8hyQscQ3Ht sNU2AQQki2u7Qt72fRU+PHRk RRU4jVpzTUpsc426HkIip2jd IDM3 bLZzCPadSAQ6Y38oe7K2GNSy EACsRXE6bXJ3kU4dyXakgjdy B7ZpkSMjBjT5UYW4wSHksB7q bGln ttfczX8bUaa+Q96CXE4ZKMGK IO2CZri3B9GoGrgarSK+PC90 BRTtLQ53mLNsfDDoe8jruHh8 JzEw TKIaRNO4qFllXVusa2BfCQHc U16gfVZtw1N2IBQsrYnnsJLu ByRxjYE8aJ9vBLngkklmq6jl dzsn Zgmwd3pqxo93qQ70V08cRPwf UFBkVRL4KDPtXOHoxMsfuq8c dN6kOg0+XEurp6bep2khcHg2 IjIw MSXtcyLmzPnwSQI4z0RaXy19 A4ZdiMimy3EmSdt8us11kALr z9O8yHT8RIvsHJKlkZ4dDYey ZnQ6 VZTcVgBteN37vKMaOBisEp6v kGwbgIfqTM1gOCWeyqgzHIAx dX0uEFAhdDBwnPjsBG4xOGGf bjtm f976WtKtHTV8XLLaeGCiG2Iw jK6sAxLfFXHmJDIvC9AufEDb KOjyX740SAchAtE7AIQizrVz Y2Fs MXIeqMzdUnP9d7Z6Df3Mm8Gq hqkbLLR3BWoiQCMrHdIcRnRc ZzT9Q7TfYju2KSXjoKxiKK6i J3Bh MWZyqaobvlgimBU9LVAaQBSv fG90nNWuVMltFi5ym9V3w894 ONLxFAXppA95As0hdEuyUOEd dCBU qT2wjjiuc2ktgdwwAkYnMCOr ZCm1GGl7MDNnaRkvHzGnOHD5 HaK0YVM6eNBabA4zkMtgzkhu dG9w Oyc+L14goT9sMXU8LSS9bmeh WRVgnuSqTZ78XM50F8KnAxgv dGFibGU+MQXarpIiuVzgRS2e YmFj t5yxg6KbFWrdS6KuEFYpXOws Ofp4VZMrYNX1qZQ2rR6iENPb ZSyxl0I4bEB5D8BcuhFcgp6p b2xs VPCpLPurY41yiXAff1D4HCYt qVR6MHZjoIewXwPqcV34Miw+ GCDieCbhd9NhPibjp4lcy6xi dGg9 TjQlRSDevyLvvVeqRGX4t3Lo Di57H73gOVkuIXAgHYNvUHXz ULRecBgqyl2kaO5wPu6+PGNv bCB3 lPC7yQ7lCZVoLhM5VBqbR311 EbTbeZBtAbzsa1krk2afqEd5 WcGsTOFhkaQliMwzACA9e5Kv Lz48 B01hXFskFIKoRQCgKDXbNMCa zOjctq9xaI9fXs4+LX2se4df wr96mH12aBB+MUGuAWT1lOrn PSdw VXSfvI8xBOsuWtM7MSMtPvUf mX27vMZrONhlSr7tkWayxHnu HY9lYFWjanxse552NzJnv4yu IDEw uJKrMEjlHVP3W50nx5A4ACOn MNFbOEN8tIP6vW8arOucpzha bGVmdDsgdmVydGljYWwtYWxp Z246 IHRvcDsnPlBhdGllbnQgTmFt SOm9A2ZmSab6IRVzbGxbTJ6m cQUlWXnbEr0fyBdqfPwlHC9s NTBp yxjxw966SlGpl0ueZOCmvXIm HIlhHZY7O34xc1X8TLMwAMWo JIG5qWU7dN5ndFdogbijxFVe dDsg snUscYzvTUbqMJwsH492RDZq tJudWkEntgFxBBPhkSM9TZ31 UQ26dZTjc9P6yCR4M6IjPJIo bmct mrmtaCU9HZNcUVJgzW58Ja5j uKpbDt2aMWQcKPB2YPXkbCMc Q9EcgM0nVpHsYMFrXFBwZ6As eHQt RRcuL271ZSxaXiX0MOTwatEq C7QoDNLcfVraQhR1e1W9Kh9W N4R8MY96LN43cBVle2B3rZU6 J3Bh OJRdqczwsvueqTD4DGJbBIEo eP29Iu2yaOjjTl4aAOFlGSC2 TDXksYSxJ1JzfQ9uIpAuQDWi MDAw U6AyrCXhKXyeW601RYgmUyP3 LIQfrsXvN2PdBTVubVahYhO4 e8D5Di1CPXv8UU56DC85kBRw c3R5 hCN8U9VlHRKdcajbfzssxJD5 SVJuWKHneV62Vo2vxEhiDx9s NHAfYTI9CRKzxTTnE7VwfJ6s OiAj GBHmLYOaX6BmdTHlKJliX512 KJurXeN9AEQmovApT5CnIVLv qYpgZgJ4i7J3Ru0GCGMkBQ78 IFR5 kLS5RK92GQ84P6HhIcholMSc bGU+PHRhYmxlIHdpZHRoPScx RGVpDiXkmYalGG2rPg7bLVYy LWNv jWyftCTeMmOdq2tvJQOxNTsp FG1etGwsE1RjhQQ8FBVcv1m6 Pq23X23aU1RioVN+PGNvbCB3 aWR0 gO1xViPsWxS5UXsbI239MaXa hCOjMsabn9qpv0wwhZm4JeG9 GVTdjkCtjOgyJTM3y0YhXq10 Y29s IHdpZHRoPSIxNSUiIHZhbGln cq3phF0sDi9+PNLvpYW9wGC9 oL3aYmLgZdJ3JOspU900CiLg cCIv Dcpfw8tcu4rbqHp1UkLhDUDl gyIrtCntSHR2n5HpUt14W7Mc xJbwl1JqBcn1bb49jFJlp3Q9 bGU9 J4OlHFUleaddpZMsfVcxHO0y CIBnorwqPJTawB7uGWWvC0v4 IdAfYoY6CKtaY0LugeD9JKLb cHQg BIbrTLW9A93xq4X8LYHhCIRf TKQ7vGE5rQ1hxSjijtauiWSr aEkvijCvsQabUAbfURnoP044 IHRv aWgcDNVzbF6xGGKjpIXouEqh KH6bELGjenakOixNJsrcPDvM OtMEOF80RP00gMHos9Y0lIK4 J3Bh RNRqfjfgzdsfhHM7WNOhEPZj uL95cQQiVLeuDf3nu8S6b984 FSDsFWTjbQ83Hs2njXolHIJh dCBU oU4ihgmol6ldladmWgGlDQOs PSt1SFn4YROvnGbtBmKdEQX4 OpF1GAX0gJHezO0koNubgbuz dG9w Oyc+BYHlWjFaDAe2KPtglOS+ UTKfIAW8aWjfOYanIJIkxQ0h PTNsH2h7HiHyMfJ9SSokZ1Tt ZGRp gknhZs11oD2bXkXnEqJ8SJdp V3QsppM0ZQDfsGFtBEenHWU5 N74zp4N8EODeFNAuVEE5vDF9 dC1h bGlnbjogbGVmdDsgdmVydGlj KQvgKVglQ456GOTmfZpkTfN0 JWxyMZQoPQ98NU02qQWqn1N5 bGU9 X3IzJIYcalxhxfuthHO1WBBc VCOdyW67jYJkWQiiCj4qv2L9 d503GSAxDCCkyK56Uc7wuYqy MTBw sZFSiZ1upgtdj0bfesyqIaCh EPSwLBa1HFl5BKFydTbxVeUc NZG4FkE0FTY2wVFjyA2uaYcl bjog sE3tWey+TWFsZTwvdGQ+PHRk AWD3lQliUYerUXKbgS3fKGZu K8p8XwWwZtS3OFhiK2OxMDBl bmct Oj69sX9iQpPoItF8ZDfhF5Ch yqX7VBZjkZFrVNecZWQ6C65s z6V0BJMvFKCxXXS4tDG2aB4t bGln bjogbGVmdDsgdmVydGljYWwt BYsqU932QVDsrPcyHhGzoO7y TWFuYWdlbWVudDwvdGQ+PC90 cj48 C7LrItfhClr9HQGqPMJ4eMO8 sS3nDTYkBTjgg2Y2rJL5H3Wz qoFkpc8pk6skNPBwPPxuI54i bGFw i5B1CTZtjLM3JSJzsDlbOhEf bA34Jvq+IUMfpEfih3MwIyko u4mhb5dfnMy2TeCjGKHnmfOq aWdu HBU6f4FwMd11E38tGSulGNPy KZHhUGTxKEDsaFlpsw9fkZ6a Ii8+POPzbLL4eBO6gG0hZpDe IiB2 BMxuK786MhRxcKJiDeesw5tz y3tjiKx1DaNjDLScahQxqWqm EMN9m3IeYy29J8LqeUcei1Dr Pjx0 zf08cFMkd2X9zCG0E5YwDKGg ptogxDRjiSznOQ7eFRDjupfo GQLgnS1qVFPwC6i5UvJfUsG7 MGlu H7NphbW7VJAgaHEkDXMrpIQI aY6seqxzn4cqyvdhRhViHJWz COx1ESs4JJRloEnzNwDkKEN1 OyB2 GBX6uQRtjY0rrWrswnyheK9h Oyc+LZn4b0ncqTVbDB0feRT8 LC77MX75xLRln6G8eZM5H0Xf ZGRp diqgyloimFA9RCFrDJDycN61 Bw0oiEwmHj1nSOWaWXY3WIHv qCKiW9LmdG4wQuEaYJJgJLAk O3Rl uMLiCJbuB630ZUqoCmY1SJCv tsSsR9UkGMSprWpeNmI0m7J4 Gg6PBR37AK69BD92iFCqn6Y9 bGU9 Z3GxUXSfzefrqiyloIH0TXTv WSQthN88Sw5itBkpZw5cZQQu TOX8YTRxuFStI5FupL2xNxAl MDAw TQHfE7AxvHIyBIlwF818ICha VlG6SXNjtdUyN4XlQZDdiVuk CrA0s3H3Wv3RYr50SN91FQ44 dGQg l1Q3oZQ3O9QaQVBsnynzmqdg dJL8ZOLuSVAwtQ48Lp5hcYzl Nx0qLHDhQOB6PMAbkWGpN0Eb bG9y QdVlVMTaJXRiH3HoqBNoZNjx K198XWfbXvM4YBQkikWzU5Ew BAPypFvhJoS6t5Q7Wd6HVWsr cjo8 Q4IpRuqvtAZ+ED66LXYeBS62 lZUjrBEtm5jzbSh4PoZnIUOg BCY0eVucIUuuv8IfIMKtD63e bGFw c2U6 (more content not included)... Normal [facility] Operative Reporton Operative Report Patient: CHRISTIANO ZHENG Age: 26 years Sex: Male : 1995 Associated Diagnoses: None Author: Sen Burgess MD Procedure Procedure: Cervical Epidural Steroid Injection with Fluoroscopic Guidance at C6/7 Diagnosis: Cervical Radiculitis Anesthesia: local The patient was identified in the pre-op area. The procedure, including risks benefits and alternatives was discussed with the patient. The patient agreed to proceed. Informed consent was obtained and the site(s) marked. The patient was brought to the procedure room and placed in the prone position with the neck flexed. Time out was taken. The neck was prepped and draped in sterile fashion with Chloraprep. Skin and subcutaneous tissues were anesthetized with 6 mL of Lidocaine 2% through a 25G needle. An 18G Touhy needle was then advanced under fluoroscopic guidance (AP and contralateral oblique views) to the inferior lamina and then advanced cephalad into the C6/7 epidural space using loss of resistance technique with a plastic STEPHANY syringe. Isovue 2mL was injected under live fluoroscopy which demonstrated appropriate epidural spread without vascular uptake. After confirmation of negative aspiration, 1mL of 2% PF lidocaine, 3mL of PF normal saline, and 10mg (in 1 mL) of PF dexamethasone were injected. The needle was removed and a bandage applied. The patient was brought to the recovery area in stable condition and then monitored for an appropriate period of time. The patient was discharged home in good condition with post-procedure instructions. No apparent complications. Epidural injection procedure Physical Exam: vital signs. Normal [facility] Comment on above: Result Comment: Elec tronically Signed By: Jenifer BOGGS, Sen Dodson\.br\Date and Time Signed: 06/20/22 13:29 EST Consultation Noteon 06-14-20 Consultation Note [id number]#1.00CD: 127 Normal [facility] Consent for Procedure/Surger yon 06-13-2022 Consent for Procedure/Surgery [id number]#1.00CD :127 Normal [facility] Consent for Treatmenton 05-19 Consent for Treatment [id number]#1.00CD: 127 Normal [facility] Discharge Instructionson Discharge Instructions [id number]#1.00CD :127 Normal [facility] IntraOperative Documentson 1 08-14-2021 IntraOperative Documents [id number]#1.00CD :127 [facility] Main OR Intraoperative Recor don 06-13-2022 Main OR Intraoperative Record IntraOp Document Type FTPM Summary Primary Physician: Sen Burgess MD Finalized Date/Time: 06/13/22 15:47:06 Pt. Name: CHRISTIANO ZHENGO.B./Sex: 1995 Male Med Rec #: [id number] Physician: Sen Burgess MD Financial #: [id number] Pt. Type: P Room/Bed: / Admit/Disch: 06/13/22 14:24:38 - Institution: Case Times FTPM Entry 1 Patient Times In Room 06/13/22 14:49:00 Out Room 06/13/22 14:56:00 Procedure Times Start 06/13/22 14:52:00 Stop 06/13/22 14:55:00 Anesthesia Times Last Modified By: Suzan Louie RN 06/13/22 15:46:53 Case Attendance FTPM Entry 1 Entry 2 Entry 3 Case Attendee Sen Burgess MD, RN, Suzan Villa RN Role Performed Surgeon - Primary Scrub - Primary Quality Lead - Primary Time In 06/13/22 14:49:00 06/13/22 14:49:00 06/13/22 14:49:00 Time Out 06/13/22 14:56:00 06/13/22 14:56:00 06/13/22 14:56:00 Procedure CERVICAL EPIDURAL CERVICAL EPIDURAL CERVICAL EPIDURAL STEROID INJECTION(.) STEROID INJECTION(.) STEROID INJECTION(.) Comments Ava-student Last Modified By: Suzan Louie RN 06/13/22 Suzan Louie RN 06/13/22 Suzan Louie RN 06/13/22 15:46:55 15:46:55 15:46:55 Entry 4 Case Attendee Gwyn Caba Role Performed Driver Helper Time In 06/13/22 14:49:00 Time Out 06/13/22 14:56:00 Procedure CERVICAL EPIDURAL STEROID INJECTION(.) Comments Last Modified By: Suzan Louie RN 06/13/22 15:46:55 Perioperative Protocols FTPM Pre-Care Text: Implements protective measures prior to operative or invasive procedure, confirms identity before the operative or invasive procedure, verifies operative procedure, surgical site, and laterality Entry 1 Procedure(s) CERVICAL EPIDURAL Patient Identity Birthday, ID Band STEROID INJECTION(.) Verified (select at Check, Patient least 2): Participation Consents / H and P HandP, Surgery/Procedure Operative Site Present Verified Consent Marking Verified Surgical Site Yes Laterality Verified Yes Verified Procedure Verified Yes Correct Patient Yes Position Verified Availability Equipment, Medication, Prep Dry Yes Verified (If X-ray Applicable) PreOp Antibiotic No Time Out Suzan Louie RN, Myers Given Participants RN, Jneifer Oropeza MD, Sen Dodson, Gwyn Caba, Gwyn Caba Time Out Complete 06/13/22 14:50:00 Outcomes Met? Yes Last Modified By: Suzan Louie RN 06/13/22 14:50:15 Post-Care Text: The patient is free from signs and symptoms of injury caused by extraneous objects Allergy Information FTPM Pre-Care Text: Verifies allergies Entry 1 Allergies Reviewed? Yes Allergies Reviewed Self/Patient With Outcomes Met? Yes Last Modified By: Suzan Louie RN 06/13/22 14:47:27 Post-Care Text: The patient received appropriate medication(s) safely administered during the perioperative period Surgical Procedures FTPM Entry 1 Procedure Description Procedure CERVICAL EPIDURAL Modifiers . STEROID INJECTION Surgeon Description C6/7 PRASANNA Primary Procedure Yes Primary Surgeon Sen Burgess MD Start 06/13/22 14:52:00 Stop 06/13/22 14:55:00 Anesthesia Type None Surgical Service Pain Management Wound Class 1 - Clean Last Modified By: Suzan Louie RN 06/13/22 15:46:59 General Case Data FTPM Pre-Care Text: Classifies surgical wound, implements aseptic technique, initiates traffic control Entry 1 Case Information OR Pain Proc Room Case Level Level 2 Wound Class 1 - Clean Specialty Pain Management Preop Diagnosis m54.12 Postop Same As Preop Yes Postop Diagnosis m54.12 Outcomes Met? Yes Last Modified By: Suzan Louie RN 06/13/22 14:47:41 Post-Care Text: The patient is free from signs and symptoms of infection Skin Assessment (Pre Procedure) FTPM Pre-Care Text: Implements protective measures to prevent skin/ tissue injury due to thermal or mechanical sources Evaluates for signs and symptoms of physical injury to skin and tissue Entry 1 Skin Integrity Intact, [place], Warm, and Skin Abnormality No Dry Outcomes Met? Yes Last Modified By: Suzan Louie RN 06/13/22 14:47:50 Post-Care Text: The patient is free from signs and symptoms of injury caused by extraneous objects Patient Positioning FTPM Pre-Care Text: Identifies physical alterations that require additional precautions for procedure-specific positioning, verifies presence of prosthetics or corrective devices, positions the patient, evaluates the patient for signs and symptoms of injury as a result of positioning Entry 1 Procedure CERVICAL EPIDURAL Body Position Prone STEROID INJECTION(.) Feet Uncrossed? Yes Left Arm Position Resting at Side Right Arm Position Resting at Side Left Leg Position Extended Right Leg Position Extended Positioning Device Pillow Under Head Large, Safety Strap, Pillow Large Under Knees Press Points Checked Yes By Suzan Louie RN Outcomes Met? Yes Last Modified By: Suzan Louie RN 06/13/22 14:48:01 Post-Care Text: The haily (more content not included)... Normal [facility] Main OR Preoperative Recordo n 06-13-2022 Main OR Preoperative Record Holding Area Document Type FTPM Summary Primary Physician: Sen Burgess MD Finalized Date/Time: 06/13/22 14:34:18 Pt. Name: CHRISTIANO ZHENG/Sex: 1995 Male Med Rec #: [id number] Physician: Sen Burgess MD Financial #: [id number] Pt. Type: P Room/Bed: / Admit/Disch: 06/13/22 14:24:38 - Institution: Case Times Holding FTPM Pre-Care Text: Verifies consent for planned procedure, identifies individual values and wishes concerning care, includes family members in perioperative teaching Secures patient's records' belongings, and valuables, maintains patient's dignity and privacy, and maintains patient confidentiality Entry 1 In Holding 06/13/22 14:30:00 Outcomes Met? Yes Last Modified By: Patricia Nguyễn RN 06/13/22 14:30:46 Post-Care Text: The patient participates in decisions affecting his or her perioperative plan of care The patient's right to privacy is maintained Surgery Checklist FTPM Entry 1 Patient Birthday, ID Band Procedure History and Physical, Identification: Check, Patient Verification: Surgical Consent, With Participation Patient NPO after Midnight: No Date/Time: 06/13/22 14:30:00 Results Reviewed 1230: [place] Personal Items: Jewelry Comments: Personal Items Bracelet and ring Complaints of Pain: Yes Comment: Pain Comment: 07/28 Neck Operative Site Yes Marking: Marked By: Dr Burgess Location: C6-7 Availability Equipment, X-Ray Verified: Does Patient Smoke No Patient states Yes Comment - Adult - Cindy postop adult Supervision supervision available Case Cancelled in No Holding Area see comments below for reason Last Modified By: Patricia Nguyễn RN 06/13/22 14:34:14 Finalized By: Patricia Nguyễn RN Document Signatures Signed By: Patricia Nguyễn RN 06/13/22 14:34 Normal [facility] Coding Summary.on 06-07-2022 Coding Summary. [id number] Gh0b Ww+PGhlYWQ+AA4EINDvZ11fu WMdeL2MV3vNRH1FHAEDDOBMZ H3VWY4swSA5NKkzS5LfptBy VndenAYsTU42DHa9TNL2oXxy MRowpI3cuWDiB0y3MaSoXI58 vV14PVapTLNqMuS3TdBpqxyr bWFy B3pnVwZwpSNiSjn+PHRhYmxl IHdpZHRoPScxMDAlJyBzdHls OF6wKr0oQTMtQAHikMdomRMf OiBj z5ykPEMfPPosVB1agVecE4Vg nLB6SSYud4z5Pv73cVI+PHRk YPS0sEtnHBxxj444McNva4sf IDM3 wFEgSTflWJX1D62ea8T2UQGf JIDvZPP8cBE7aO2wjNhxafwy W3IhkWPnHpR3XSB8oRGcyA3m bGln cspagC6eYxr+T84JLV2SKMTP FM8MSgf9O7ZhZlfjwHW+PC90 ZCQdSS17fAWzoBYxm1mcaXh5 JzEw GMKrODD6gNkrTOsml6ChUAAn D28exZLdr3A8XIHetXhyjKWw XfXesDF6yX2mJDsrzmxss6vy dzsn Lpahk3hmle72uZ13U97nPQjk FCXrXLB9NDHtGTNgsWoslh4u jI4wRa8+VSigt0kyx7uhrYw4 IjIw FQMeasLdfEuuSYH1e4XiYr72 W4TnjVlai3GnXso9zj20yVTl t0S3bBF8VIftYDOihD6zEXsl ZnQ6 EOZcPdUfnC83zSChEDfcYw9t nRsowYanSA5wGFLyhjrnLUQy vA0hNISawIDtrJqmMS5iVYCi bjtm e188WiIbGHL2LWLoaGKhT1Ix iX2nUrHiRILdNEJtP4MduUZl BFbnG401JVntYvZ5YWNdfjCb Y2Fs IPZjxKyoRnB7k9K9Cu5Oo2Qi kqtyLJW4VYhkZASdTjLlQqCn FcM0O6OtJbk8LLVrzAnnXE5g J3Bh OHHirkfuvsujuKF3BHWtRQMj gS80aOAtILpmCx9kz1C8x784 JTTzZIIlfD81Aq2dyBndNRHx dCBU lX3vbeqbx8njytbtAnUwOOHy WFx2HRe2VTGitAoxJfWsSLT7 KpH8VHT0oEPoyP8hhRlcyqdg dG9w Oyc+X42flC6xXYJ7UPU4ykxu GLEtthHkDO88YV79W2IxHjxn dGFibGU+DMFfjwAfyAhmSW3d YmFj t2tvo8MoVJbhN8BhSQBpPWtj Wph0QCNuPDB3lCC6tV8mXUXx UXarp0G3bEM1N7VhasTous9t b2xs QXKzZVnwF03mfZZtc9J0PUPa kCN4UOJsiMsoWwFbaF50Bhu+ CQVeyHjxb9PjWlsio1yfa1xj dGg9 JqInRRJexoYpvQwbOWC3p2Jt Iy64D92jOFxkNKDkOMQyEONi THFtaDtfks4rrF5lZq3+PGNv bCB3 fJN9jP9jTZNoUxJ2WQlkT886 NzLheFMsEgdpn1swn2nimQc0 GlCnYYHjyfIdcNrxZFI0u9Ne Lz48 R88eOXqaBXYaEHLaGSSuSEMl zEevhy2oaB3bEp3+QL2eh2nl qk54jF57aWW+JALlBCQ5cEwa PSdw KREmwF0aGOquSwS6MEJkNfRp vO18fSIaHLdvRs8rzOkbrAof FZ3rKZQqfmwol948PyVdq1br IDEw xZSaUBdgMCM7L21vb4N1DGTa OCCiPHW6gCI5nM1krIkjdcpy bGVmdDsgdmVydGljYWwtYWxp Z246 IHRvcDsnPlBhdGllbnQgTmFt GWv8I3OoBld5LOPtjUgtYK3g eSDgZXmrTx0goKsmrJgzFC2s NTBp becwa877JuBey6qeBHRdrHCn SHfoUXY6B40wf7I2GQCfCBFl BHD5jYL9kE7ewIgvbzgbiMEo dDsg gfQgnRiyIOteSJqzR240GQIl wMflIlFmjbVgUAAmxNF4PH28 LU53wIZwc3I6oDF4D7AjZVGe bmct maaqfWQ5ASUeKIVshL18Xz9n kWbnVu3uQLIhMWO3LZTyyJPj N1KtyC9pXqAmWHRcIBOgZ1Zc eHQt CVqsC502ERdePpQ2PJYxpcQc J0OdURCjdVzoQuX2g7F5Bl3V L5F8OB66FX71gHMke0G1uSN2 J3Bh UFQfuosghraamSF8OWOaPFZk oT18Jo2ssOzoNc5aQUUpXAP0 WYKkdXOjD3NhyB4qIgNxLWHv MDAw W6AcfDHaDKweQ591SPbpCmD1 NLXqkmPiV0HnKZOroMmgAxA2 f0R9Nh5MANi5VS86VF81bFHd c3R5 bLO9M1WpVXNzmgfpgqnwzRX6 EFFjYRGhtI23Rr6fmCvfQi3p UCLpCPW8GSXiuRAwX1RdjQ9z OiAj JVElNOSbE0JogKKuBDhzU831 FVbhJxL5TVBjwqXaG7QvSXQa rRcdMtC2n8A5Tk3GQFRtIV45 IFR5 dET4BN62PS92Y0FiOwuzkMGo bGU+PHRhYmxlIHdpZHRoPScx YKAfXsQwrQejOT9zMs0nMYVl LWNv qDkedLIgOzKhm8lzKNYuXLfm JM9reRaqW9FdjWQ9CVItv6j4 Fo20S98nT7MqnQW+PGNvbCB3 aWR0 nO6zJvCzPpH9BDafC480SfWx eFOiLwoic5tgg9lpgEl5BvF1 XFDoovKmzEzlMND0u5QsLu37 Y29s IHdpZHRoPSIxNSUiIHZhbGln or2skM0fJy8+CYRleNE6yMB6 tP0qHrGbAtX5IAyhI238GaHl cCIv Wzfoe8tfn8bbgVh7SfGuRKFd dkZbkUcbMTM1o6OfLe76M1Gb kKzjo3EjIvb3rt91eCZll2T5 bGU9 J9LjGDBoctgwfXGnmMfzQB2a HDQhmwjxRWNvkW7nEACjO2k4 WwElIyV6ZKoaV4RfyzK4WPRv cHQg NScqLJB7K84tl2O4APNgCGEf VAN9yJA8nM8qrNwyigyokXXj tZfvhmGaiJedNRxmOFsxO810 IHRv wQanCGYbyH6bPDLmrXAkoAjw RV5wONNdwwbiYrhBPjxjRFoH MaXFVW54JK78iFFsj8A7bRY4 J3Bh QAUmcndhxnkwwQR9UQGyOOPr eT03wHLjJEubJc2pn4R9k524 WTVlSJUzaG96Bz9csRvoUDFz dCBU oZ8nyirya9fqxxmxNeSaNYBy BRf8SZs4NXUjxXzsViMzQHU6 HdI1MAE9lIVjzP2blFosdygs dG9w Oyc+AAVuJfAcTJy4FUpomJR+ ZJGkBOW7cVkxWRzfEQQtdZ0p XJQbW7g7WkGgAsC0HEjxO3Kf ZGRp aebpFz84nK4rDpWlKjK3YKjb Z7TlngS2PGAbaNOpBBpvVGS8 E88ni7B3LCAwXDGnDAM3lNI3 dC1h bGlnbjogbGVmdDsgdmVydGlj EUiuIEfdU241RSQenBfdEnT3 PXdnTAEdLG50WW29eLCwh7H4 bGU9 K4KtZMEpwhmuzmmkpBV7YUAc WNSjiX04qGLuTMznGo4oa7B3 i858MIEuFBAafH03Lw0zlGuh MTBw hDNEtX6aoszow0nfxhtbDwCn DKNtHCv3LZq2NDFtkDpcCrMk KCT1JcV8VZQ4uEZxyS0qiWmp bjog tF4qQgb+TWFsZTwvdGQ+PHRk LSM0cMepGJwoGDFitD1vORBp W4a1WiBwVcX9IMzzS1OvSIZn bmct Ln16zM7mHjKpKeJ1YNdxR0Xx lzR5AXNgsKVqUDynRBX1Q45k u3O9QOYoESLuYMG1qAZ3uF1y bGln bjogbGVmdDsgdmVydGljYWwt MGzxG023CIDctBejWnKaSIWv PP0anMnlaSZ+GQ94iz77D8El Ymxl Omy9YMNnDNF5eMP7uS9gQNEv KDjug9E2zZE3Y3QudkEyto3x m8jhWKPfLFzfK88iyYEss7J3 IGVt uOB4SZDcpQpmVtZtpV29Luk+ VRFpyVppz6WqGckpy3zxa9bj yQm6OwQcMEVpaaFynVbfTWK8 b3Ai Qp71A07vCHhlKZJhZHPsBUTj DDThyHcauz1rrH6mHj0+PGNv zMV1hBK1iO4sYwPaDlD0KTde Z249 PyKoaLFoYdifl8rvo4lkvZe7 EgHrYMCvgpUgeJzyURV6h6Gn Ih73P6PyaSigj1JpOts9vl88 dGQg w0J6oTP0B5QeYARoobrrcQTg dEqvEI4lVLTgoqdtQPNywD0r QNIbV0s2YdBvDmG5FGpjU0Eh bnQ6 ZXTzeRQuPLTibBMEjT7jtncf b1tdqrrsKpGmKCBgSOj7ESh0 MGTrlKzqNeVfSMJ0UkU4ZFH6 aWNh yN4izEaitzmfeV1vRlt+UGh5 e3vezODvKJ4soHU4HL38RC79 nYBlf5C3uPQ6B1XyQQWujzhq cmln eHU4PUPbPICidN16Qk7yoAkw Dd2rCVBdSGE0JIIdwPJwS9Zl bW1eJsZiMHVcDCFxO9MjoROp YWxp V875GZjdLeC8RZMjljEbV4Ka RHNxaEmqZmN8f4Q1Nu3XVA24 JH75QO36fCDzk3R5cFX3O6Cl ZGRp ydrrwyzaeGV1UFWzOCAfkR77 Yf2rqYjhWe7gFCNfYFK1JAWk dJEsR2LktY3mNlFjFKLjIPDz O3Rl pNFyVJzwU095OGlkFjT2OLHk psKxY6LiWKMqiMcnNbS0l5T1 Ej1WYk25VG54YL14gYQqi4H6 bGU9 L6IcKTElkkbiaxyxtHF8APZd SCNqvZ02Ew2hiFkmVt3gVTBd JCY4YURjeQUmU3FapZ4iRuOp MDAw CZKwI3BqaLRaVZsvY769NPjz BrD6TGXbreDyK8HiNPOpcRed XtV1i8A8Fr9UWKtbiut0V3Ea Pjwv dHI+FV56TAOvOH87nHCouGCm n4lseIy4JgOeUKAbMGN8uIsn YLdsv5ImJMNhF82euHKcn4Q1 IGNv bGxh (more content not included)... Normal [facility] Consent for Treatmenton 05-19 Consent for Treatment [id number]#[id number]: 127 [facility] Discharge Instructionson Discharge Instructions [id number] :127 Normal [facility] ED Clinical Summaryon 2021 ED Clinical Summary (Inserted Image. Claudia ble to display) [place] [id number] ED Clinical Summary Person Information Name: CHRISTIANO ZHENG [place] Age: 26 Years : 1995 Sex: Male Language: Malagasy PCP: Lelia Franklin NP Marital Status: Phone: [phone] Visit Id: Visit Reason: Hemorrhoids; NEEDS HEMORRHOID LANCED Speciality: Acuity: 4 Enc Type: Emergency Med Service: Emergency Arrival: 06/06/2022 15:21:55 Discharge: 06/06/2022 15:48:24 LOS: 000 00:27 Checkin: 06/06/2022 15:21:55 Checkout: 06/06/2022 15:48:24 Dispo Type: Home (Routine DC) EVENTS: Event Name Event Status Request Date/Time Start Date/Time Complete Date/Time Arrive Complete 06/06/2022 15:21:55 06/06/2022 15:21:55 06/06/2022 15:21:55 Document Home Meds Request 06/06/2022 15:21:55 Triage Complete 06/06/2022 15:21:55 06/06/2022 15:30:11 06/06/2022 15:30:11 Bed Assign Complete 06/06/2022 15:25:27 06/06/2022 15:25:27 06/06/2022 15:25:27 Dr Exam Complete 06/06/2022 15:25:27 06/06/2022 15:28:57 06/06/2022 15:28:57 RN Exam Complete 06/06/2022 15:25:27 06/06/2022 15:32:48 06/06/2022 15:32:48 Registration Complete 06/06/2022 15:28:57 06/06/2022 15:43:00 06/06/2022 15:43:00 Dr Exam Complete 06/06/2022 15:36:49 06/06/2022 15:36:49 06/06/2022 15:36:49 Discharge Complete 06/06/2022 15:38:22 06/06/2022 15:48:29 06/06/2022 15:48:29 Reg Complete Request 06/06/2022 15:43:00 Transfer Complete 06/06/2022 15:48:30 06/06/2022 15:48:30 06/06/2022 15:48:30 ADDRESS: [address] [place] [phone] PHYS DOC NOTES: MEDICAL INFORMATION: Prescriptions Given: New Medications [facility]pharmacy #[id number], [address] [facility] [place], [place] [id number], [phone] phenylephrine topical (phenylephrine 0.25% rectal gel) 1 Application Topical every day as needed for itching. Refills: 0. Medications to Continue with No Changes Other Medications brompheniramine/dextrome thorph/phenylephrine (brompheniramine/dextrom ethorph/phenylephrine 1 mg-5 mg-2.5 mg/5 mL oral liquid) 10 Milliliter By Mouth every 4 hours as needed for cough and congestion. Refills: 0. cyclobenzaprine (cyclobenzaprine 10 mg Tab) 1 Tablets By Mouth 3 times a day as needed for spasm. Refills: 0. escitalopram (Lexapro 20 mg Tab) 1 Tablets By Mouth every day. Refills: 1. hydrOXYzine (Vistaril 25 mg Cap) 1 Capsules By Mouth 3 times a day as needed for anxiety. Refills: 2. PATIENT EDUCATION INFORMATION: Instructions: Hemorrhoids Follow up: With: Address: When: Karan Lopez [address] [place] [address], [facility] [address], [address] [phone] Business (1) In 3 days 06/09/2022 DIAGNOSIS: External hemorrhoid Normal [facility] ED Note-Physicianon 06-06-20 ED Note-Physician Basic Information Time Seen: Blane Rodas PA-C 06/06/2022 15:28 Chief Complaint Pt states has hemorrhoids and believes needs one lanced. Had cream and helped with pain, but did not take care of the issue fully per pt. History of Present Illness 26-year male comes to the ED for evaluation of rectal pain. He has a history of hemorrhoids. For the last 2 days he is noted some swelling to the rectal area and is concerned for hemorrhoid. He has required drainage of these in the past. No fever, chills, nausea or vomiting. No associate abdominal pain or constipation. He is using topical hydrocortisone. Review of Systems A 10 point review of systems is negative except as noted above. Medical and Surgical History: Reviewed and noted Social history: Lives at home Tobacco: Denies Physical Exam Vitals & Measurements T: 36.9 ?C(Oral) HR: 80(Peripheral) RR: 16 BP: 130/69 SpO2: 95% HT: 180 cm WT: 77 kg BMI: 23.77 Nurses notes and vital signs reviewed and patient is not hypoxic. General: The patient appears well, resting comfortably. Skin: Warm, dry. Head: Atraumatic. Neck: No JVD. Eye: Normal conjunctiva. Ears, Nose, Mouth, and Throat: Moist mucous membranes. Cardiovascular: Strong distal pulses. Chest wall: Respiratory: Respirations are nonlabored. Back: Normal range of motion. Musculoskeletal: Normal ROM with no gross deformity. Gastrointestinal: Rectal exam shows a moderately sized external hemorrhoid. This is soft and flesh tone. No thrombosis. No active bleeding or drainage. Urological: Neurological: Awake and alert. No focal deficits. Follows commands. Psychiatric: Cooperative. Medical Decision Making Patient has a external hemorrhoid without thrombosis. He has been using topical hydrocortisone. We will add phenylephrine as well. No associated constipation. He is discharged home with surgical referral. Patient was encouraged to return to the ED if symptoms worsen or change. Assessment/Plan External hemorrhoid (K64.4: Residual hemorrhoidal skin tags) Orders: phenylephrine topical, 1 evelyn, Topical, Daily for itching, 54 gram, Refill(s) 0, [id number], 180, cm, 06/06/22 15:30:00 EST, Height/Length Dosing, 77, kg, 06/06/22 15:30:00 EST, Weight Dosing Disposition Plan Patient Discharge Condition Disposition: Discharged home Condition: Improved and stable Counseled: Patient and/or family were counseled to workup, results, treatment plan and follow-up recommendations Discharge Prescription List Prescriptions phenylephrine 0.25% rectal gel, 1 evelyn, Topical, Daily, PRN Follow-up With When Contact Information Karan Lopez In 3 days 06/09/2022 EST [address] [place], [place] [address] [phone] Business (1) Additional Instructions: Patient Education Hemorrhoids Attestation Patient seen and evaluated by the physician mechanic's assistant. Attending physician was present in the emergency department and supervised care. This visit was performed by both the physician and an APC. I performed all aspects of the MDM as documented. This report was transcribed using voice recognition software. Every effort was made to ensure accuracy, however, inadvertently computerized rack washer mistakes may be present. Appropriate healthcare PPE was used in evaluating this patient. The patient was placed in a mask. The healthcare provider was wearing mask, gloves, and utilizing proper hand hygiene. All equipment was properly cleansed. Problem List/Past Medical History Ongoing Anxiety BMI 23.0-23.9, adult Cervical radiculopathy Cervical spondylosis Constipation Difficulty swallowing Enlarged tonsils Family history unknown Former smoker Hearing deficit Hemolytic anemia Hereditary spherocytosis History of neck pain Hospital discharge follow-up Insomnia Lower back pain Medial epicondylitis Muscle spasms of neck Non-smoker PTSD (post-traumatic stress disorder) Screening for cardiovascular condition Splenomegaly Stomal ulcer Testicle lump Historical Cholelithiasis Sleep apnea Procedure/Surgical History Cholecystectomy, Hernia repair, Splenectomy. Medications Inpatient No active inpatient medications Home brompheniramine/dextrome thorph/phenylephrine 1 mg-5 mg-2.5 mg/5 mL oral liquid, 10 mL, Oral, q4hr, PRN cyclobenzaprine 10 mg Tab, 10 mg= 1 tab(s), Oral, TID, PRN Lexapro 20 mg Tab, 20 mg= 1 tab(s), Oral, Daily, 1 refills Vistaril 25 mg Cap, 25 mg= 1 cap(s), Oral, TID, PRN, 2 refills Allergies Dilaudid (Hives) morphine (anaphylaxis) oxyCODONE (Nausea) Social History Alcohol - Denies Alcohol Use, 02/09/2012 Household alcohol concerns: No., 04/28/2022 Substance Abuse - Denies Substance Abuse, 02/09/2012 Household substance abuse concerns: No., 04/28/2022 Tobacco - Denies Tobacco Use, 02/09/2012 Never (less than 100 in lifetime) Tobacco Use:. Never Smokeless Tobacco Use:. Household tobacco concerns: No., 04/28/2022 Family History (more content not included)... Normal [facility] Comment on above: Result Comment: Elec tronically Signed By: Blane Rodas PA-C\.br\Date and Time Signed: 06/06/22 16:01 EST\.br\Electronically Co-Signed By: Leah Grover M.D.\.br\Date and Time Co-Signed: 06/06/22 19:46 EST ED Patient Education Noteon 06-06-2022 ED Patient Education Note Gastroenterology Hemorrhoids Hemorrhoids are swollen veins in and around the rectum or anus. There are two types of hemorrhoids: ? Internal hemorrhoids. These occur in the veins that are just inside the rectum. They may poke through to the outside and become irritated and painful. ? External hemorrhoids. These occur in the veins that are outside the anus and can be felt as a painful swelling or hard lump near the anus. Most hemorrhoids do not cause serious problems, and they can be managed with home treatments such as diet and lifestyle changes. If home treatments do not help the symptoms, procedures can be done to shrink or remove the hemorrhoids. What are the causes? This condition is caused by increased pressure in the anal area. This pressure may result from various things, including: ? Constipation. ? Straining to have a bowel movement. ? Diarrhea. ? . ? Obesity. ? Sitting for long periods of time. ? Heavy lifting or other activity that causes you to strain. ? Anal sex. ? Riding a bike for a long period of time. What are the signs or symptoms? Symptoms of this condition include: ? Pain. ? Anal itching or irritation. ? Rectal bleeding. ? Leakage of stool (feces). ? Anal swelling. ? One or more lumps around the anus. How is this diagnosed? This condition can often be diagnosed through a visual exam. Other exams or tests may also be done, such as: ? An exam that involves feeling the rectal area with a gloved hand (digital rectal exam). ? An exam of the anal canal that is done using a small tube (anoscope). ? A blood test, if you have lost a significant amount of blood. ? A test to look inside the colon using a flexible tube with a camera on the end (sigmoidoscopy or colonoscopy). How is this treated? This condition can usually be treated at home. However, various procedures may be done if dietary changes, lifestyle changes, and other home treatments do not help your symptoms. These procedures can help make the hemorrhoids smaller or remove them completely. Some of these procedures involve surgery, and others do not. Common procedures include: ? Rubber band ligation. Rubber bands are placed at the base of the hemorrhoids to cut off their blood supply. ? Sclerotherapy. Medicine is injected into the hemorrhoids to shrink them. ? Infrared coagulation. A type of light energy is used to get rid of the hemorrhoids. ? Hemorrhoidectomy surgery. The hemorrhoids are surgically removed, and the veins that supply them are tied off. ? Stapled hemorrhoidopexy surgery. The surgeon saloni the base of the hemorrhoid to the rectal wall. Follow these instructions at home: Eating and drinking ? Eat foods that have a lot of fiber in them, such as whole grains, beans, nuts, fruits, and vegetables. ? Ask your health care provider about taking products that have added fiber (fiber supplements). ? Reduce the amount of fat in your diet. You can do this by eating low-fat dairy products, eating less red meat, and avoiding processed foods. ? Drink enough fluid to keep your urine pale yellow. Managing pain and swelling ? Take warm sitz baths for 20 minutes, 3?4 times a day to ease pain and discomfort. You may do this in a bathtub or using a portable sitz bath that fits over the toilet. ? If directed, apply ice to the affected area. Using ice packs between sitz baths may be helpful. ? Put ice in a plastic bag. ? Place a towel between your skin and the bag. ? Leave the ice on for 20 minutes, 2?3 times a day. General instructions ? Take saex-jwp-kflgchl and prescription medicines only as told by your health care provider. ? Use medicated creams or suppositories as told. ? Get regular exercise. Ask your health care provider how much and what kind of exercise is best for you. In general, you should do moderate exercise for at least 30 minutes on most days of the week (150 minutes each week). This can include activities such as walking, biking, or yoga. ? Go to the bathroom when you have the urge to have a bowel movement. Do not wait. ? Avoid straining to have bowel movements. ? Keep the anal area dry and clean. Use wet toilet paper or moist towelettes after a bowel movement. ? Do not sit on the toilet for long periods of time. This increases blood pooling and pain. ? Keep all follow-up visits as told by your health care provider. This is important. Contact a health care provider if you have: ? Increasing pain and swelling that are not controlled by treatment or medicine. ? Difficulty having a bowel movement, or you are unable to have a bowel movement. ? Pain or inflammation outside the area of the hemorrhoids. Get help right away if you have: ? Uncontrolled bleeding from your rectum. Summary ? Hemorrhoids are swollen veins in and around the rectum or anus. ? Most hemorrhoids can be manag (more content not included)... Normal [facility] ED Patient Summaryon 022 ED Patient Summary (Inserted Image. Claudia ble to display) [address] [address] Patient Discharge Instructions Person Information Name: CHRISTIANO ZHENG Age: 26 Years Arrival Date: 06/06/2022 15:21:55 Discharge Diagnosis: External hemorrhoid Primary Care Physician: Lelia Franklin NP Provider Information Primary Provider: Leah Grover M.D. Advanced Undertaker Helper:Blane Rodas PA-C The exam and treatment you received in the Emergency Department were for an urgent problem and are not intended as complete care. It is important that you follow up with a doctor, nurse practitioner, or physician?s mechanic's assistant for ongoing care. If your symptoms become worse or you do not improve as expected and you are unable to reach your usual health care provider, you should return to the Emergency Department. We are available 24 hours a day. CHRISTIANO ZHENG has been given the following list of patient education materials, prescriptions and follow-up instructions: Follow-up Instructions: With: Address: When: Karan Lopez [address] [place] [address], [place] [phone] Business (1) In 3 days 06/09/2022 In the event that this physician does not participate in your insurance network, please consult with your insurance company to find a nearby participating provider. Patient Education Materials: Hemorrhoids A MESSAGE TO ALL PATIENTS REGARDING OPIOIDS PRESCRIPTION OPIOIDS: WHAT YOU NEED TO KNOW Prescription opioids can be used to help relieve ikietttw-mr-kheepj pain and are often prescribed following a surgery or injury, or for certain health conditions. These medications can be an important part of the treatment but also come with serious risks. It is important to work with your healthcare provider to make sure you are getting the safest, most effective care. WHAT ARE THE RISKS AND SIDE EFFECTS OF OPIOID USE? Prescription opioids carry serious risks of addiction and overdose, especially with prolonged use. An opioid overdose, often marked by slowed breathing, can cause sudden . The use of prescription opioids can have a number of side effects as well, even when taken as directed: ? Tolerance?meaning you might need to take more of the medication for the same pain relief ? Physical dependence?meaning you have symptoms of withdrawal when a medication is stopped ? Increased sensitivity to pain ? Constipation ? Nausea, vomiting, and dry mouth ? Sleepiness and dizziness ? Confusion ? Depression ? Low levels of testosterone that can result in lower sex drive, energy, and strength ? Itching and sweating RISKS ARE GREATER WITH: ? History of drug misuse, substance use disorder, or overdose ? Mental health conditions (such as depression or anxiety) ? Sleep apnea ? Older age (65 years and older) ? Avoid alcohol while taking prescription opioids. Also, unless specifically advised by your health care provider, medications to avoid include: ? Benzodiazepines (such as Xanax or Valium) ? Muscle relaxants (such as Soma or Flexeril) ? Hypnotics (such as Ambien or Lunesta) ? Other prescription opioids KNOW YOUR OPTIONS Talk to your health care provider about ways to manage your pain that don?t involve prescription opioids. Some of these options may actually work better and have fewer risks and side effects. Options may include: ? Pain relievers such as acetaminophen, ibuprofen, and naproxen ? Some medication that are also used for depression or seizures ? Physical therapy and exercise ? Cognitive behavioral therapy, a psychological, goal-directed approach, in which patients learn how to modify physical, behavioral, and emotional triggers of pain and stress. IF YOU ARE PRESCRIBED OPIOIDS FOR PAIN: ? Never take opioids in greater amounts or more often than prescribed. ? Follow up with your primary health care provider. o Work together to create a plan on how to manage your pain. o Talk about ways to help manage your pain that don?t involve prescription opioids. o Talk about any and all concerns and side effects. ? Help prevent misuse and abuse o Never sell or share prescription opioids. o Never use another person?s prescription opioids. ? Store prescription opioids in a secure place and out of reach of others (this may include visitors, children, friends, and family). ? Safely dispose of unused prescription opioids: Find your community drug take-back program or your pharmacy mail-back program, or flush them down the toilet, following guidance from the Food and Drug Administration (www.fda.gov/Drugs/Resou rcesForYou). ? Visit www.cdc.gov/drugoverdose to learn about the risks of opioids abuse and overdose. ? If you believe you may be struggling with addiction, tell your health acute care surgeon and ask for guidance or call [facility]?S National Helpline at 8-425-900-Dittit. Chosen.fm Source: Herrera (more content not included)... Normal [facility] Patient Correspondenceon Patient Correspondence [id number]#[id number]: 127 [facility] Coding Summary.on 05-26-2022 Coding Summary. CD:[id number] Gh0b Ww+PGhlYWQ+WM8INPQrZ16qm SRrxR7TE8pVEK9EPTXGWGPDO X4UXF6stHE8ZYjwX7OqzkBb BhonlCOvPF79IEo0EJP2oNuc TWypuC2ifCUiP8s1ZpWcAU14 pQ89YQmwZWCoIuC0IpQcxskj bWFy N2jiIbBtvQSbJeh+PHRhYmxl IHdpZHRoPScxMDAlJyBzdHls SX2zEv8yBBTtTTZjvDvivICa OiBj d6hbJPSgUQnxTB7wtVroH0Je fEB0ZTTxs6e5Tg22lDF+PHRk SVB9rAefQZtpn871CpGgs7tv IDM3 kABcBQjvKCZ0T17kx4S1DSGl OLQyRMB0zZU4eR2pmZvdwqqf A9LzpQNgQfM8OSO2dQZkfN7o bGln wqtxuC7gAbu+Z04IWX6YZKGO GT4KFgx8D9YhJshajTE+PC90 NSQoFL07yXHzxJEag4dxeDs2 JzEw WUGgJZH9hSqcXNkha1UaQZHb X14asMSkk5L6YAVszOrvhSHd YpOnxPM9sH8pFBsyycptp4dj dzsn Tdddn8vldf88vJ47A70wIUcp TGVqLYD0TELsCXGcdUhokq1o vR9oIv5+LZafn2isr2asaFr9 IjIw HJCxolBitMakMLA5b6ZxMj20 Y5DilLsrn7UuExp2jo73lXFw x1Y7sTA2YErzLHDwoR2eRUqe ZnQ6 UKCqPcLamW16fDEzBZciQu3v gVxvnLcoHG5jLDLmpmwzASUf nS2xTMVqmYGokVlyKV4aFHNl bjtm z171TnAdCXE3HJQasZXiR3Hw dM6kNfFaRXAhQNMjB6AhmCOy OSysN619UOhjRgR0CLFitaQg Y2Fs WREauCzwRpM4m5T0Pf8Tp1Lr fxkbQNJ1VYaxAFYiUtV2NpAo IoM1T6QmTkc5UCPjfOirUV5f J3Bh HRFshsjgcxcunFX4FEEeNDTw oQ21bQRwNOhoSk5bw3O9l090 EWHvREVklJ21Rj1ghHfaLMYu dCBU mE9dbyryf6kjhrhdPgAiUCUr YMy0JJd8ZLEizXghExZoTGZ4 AhV4QCC9nAAruN4tlYjaagia dG9w Oyc+T84hiN6gMSL3XII2iuca JWPovzBhQI85WN63R2WxSqih dGFibGU+SKPbbiTtrPkvEU7e YmFj j6eku9QvNKnjU2CtXGXsPOvu Nzg0CNVeMGB6aSC9yX8uYMOb ZKhft4W0uNG0W7LeyaSrni7o b2xs TGOqSRjfV66ctXImu9X7QOZo xRP0JJNnkXhiXxTdhY33Gpd+ PMTctOiek4XbIulix0wfh3lu dGg9 UoDaGZSfyeOunAidKZQ2u4Sa Ga06Q91rDKbiWWNxRZXoLAJe BAPmfBhcgt1izI1rNy0+PGNv bCB3 qGF9nF0kSZXtZmB0UDuxJ038 HqBazNCpWzqgt1lkx3lfvTc1 VgWvVAEpmbUijEtkPLD6z5Wq Lz48 X76wSCxdRTUaJZMdDQRpUQFq lWqxex6fsS9oDd0+SU4nd3db mp78wM65uRQ+PTWaHWM4qSyj PSdw TZZkpA2wHXytXgH0ALRpMaAp eT39mNEdDQfdUo7ijLzkiClp FJ2kTRDpyouda286VvXqz4zv IDEw wWOfUGldGIN6D58pm0S2BXWe KSTiLQX9mCQ3yT3keNdfdniy bGVmdDsgdmVydGljYWwtYWxp Z246 IHRvcDsnPlBhdGllbnQgTmFt ZTi0S1PyOqo7URBbkQkhCT8g tAHhEIdhCz5taSfbyCbgKA4z NTBp nemqv718KiOqv7blZXPklRMe MRvuVHM8J62jd3Y6MFDqBEQw QSV8iEQ0uS8oeNhkehwfbIOb dDsg fsBbjUfwLDugGOeeG812UTYx jMifZqUbbtRhNKCkxEL2HE50 DJ04nSDvt2K2aWO7C5VjDUDm bmct qqgzyLY1GQNxGQRsgS16Lt7f pOpsIh8lIWVxVFJ4GVBwpABm W7YpfS4mEpDvYADrMBEmE7Dz eHQt ENaxM488OBndXtE1NTSmhcAn N5HwAIWsdLndGqV8r1E6Wi3P L4P0OL38WA87vOSoj7Q9gGQ0 J3Bh MXOgodnqkbodkMH9YYLyWZGh uV95Qe0fuCtoDg5tGDOvYZO3 RHFaaOZyS7UuzQ2oBoWjRTLj MDAw W7GktVEyDXfvV165GWavPiR0 UNKuasYlL6EeRJLrmAalMrT5 o7X7Py4RTEh8OC76QS17tPJz c3R5 jFM1S5QmWZDtexcxlntyoXB4 DOCjVCDibN42Dd3rbRzuSt4z HPKfGDM6IYSorOSdV6HmmI0d OiAj JQHvYQNfE1IsqWNgGNhsG817 CVjrYhU6DBQptsTpJ8WzMLHz eVxcLuO6p9B2Ku1BQCUlRL67 IFR5 wZD7IB26HM63S9LnXucouUBo bGU+PHRhYmxlIHdpZHRoPScx SZIsXcOxjUefZK3xYh2zAACr LWNv nXtkjYWiYdNql7evQBEeCBvo PP0faKirG9LkfGR0UYAtd6s1 Hc52R83gI1NsdQZ+PGNvbCB3 aWR0 oK7sNzXsTiJ2NUmmC483JkWl eQYzJljex2wny1sivAu6AlC2 XOPlguBwwNsjMRU4l1QwLj40 Y29s IHdpZHRoPSIxNSUiIHZhbGln lm3csE3rSw3+PVCtsSC2uRE8 kH8dFgTbLtN6HAbtC032RfUm cCIv Yzsvm1usg8kkuPa0ZcAkECUj kaLfsFywALS2s7VuOk28U4Mb xNrqh5NkGim3vw46oQBgv6U9 bGU9 Y2YwFFBbynezhJPtyBoiBG2b KZEuyoqdOHNfiF7mYXPyP8y6 PmDwKtU0PThgC8KrniA7OBBr cHQg BJfwIPU4D18rg1C3ABXaIMFm IYN2vSC0wH8nlVirwslolNOt fUudcsHhgKdtNKyjUUcdM215 IHRv zVdyPAHjcR8zUMMvzSVbrUmx WK6pLHJvlljpIuvKJzxdTAaC TkDNKJ57OW15tDNrb2G9oDU6 J3Bh OGUvsmerlzuceNO3PIEaSQHe mK46vUWzKMkrSs8hu6G4l254 UMMeJZOiuL71Uh2ceHwkPNPh dCBU fT7uxkepb6dstmfmUqXfVGSh PZp0DAs0WISwgDppPmJvQNR6 RuX8AMV3jDRsqA3xxNfuksfm dG9w Oyc+VNSxSkThMPp5LOvfsXU+ LZOgURB1pFflJWaaRFOffQ2j GLSeZ9e6HkRxViX8ZEbzD6Gn ZGRp lewlLc52nR3xKeWqUmJ2HYhz D3JwipZ6TFTdbHJnNWauNRN1 B81yg5V1QGTlNLIjJVR4kTA6 dC1h bGlnbjogbGVmdDsgdmVydGlj YBmmRStnL524RIIgbJleBeA5 DKwkNBEdUF86OO69sGKod2V3 bGU9 Q4TfUFLfaivkavxexKS3DDBg VBJuyX39hIXlWPwtWg5sh4F0 d358LSDeTMEbrM13Vr9toOiq MTBw pGLHoZ2mfphed3tkbeazTfAz CUVpUVp0OZa6AIEihByoDpYy BQJ2OsW2SYL3eRBmwC4ekPim bjog hI2vKbv+TWFsZTwvdGQ+PHRk BRX9hFetIFmzEMCqqB0dENNe I6r0MeSsZvE5TPcpV2MfWDIx bmct Ez45yZ9eKsWwFhX9HIgwS0Vt ltN3ZEDbzXTvQVvoCCH8B00w q5A0ZACbAURuQYV4hWT5tO2p bGln bjogbGVmdDsgdmVydGljYWwt ILlhX807UPZgnIgeBtCqzE0g TWFuYWdlbWVudDwvdGQ+PC90 cj48 M6TpZgkiNbk3RQSfZJG6mBI7 tA2cUKQtNGtkb5O3mQF7Y2Pw reUtdv9ep5alIVKqTRzaX89g bGFw t4A4VXDhrYF3NUKuxVhfNjAk fY62Nco+XVUkxBfmn2HiCcsr b7fal4urjBx8EfBoCCInpbYd aWdu QHB6p7LeHy31E77qJDzdLQZm DLFgNEYxCZMgsHutvu1jdC8e Ii8+ILPhzCG8kNV6iQ8jUyOw IiB2 MHxeB257JrAztDHdPhgeh0lx u1rkkDa1CjEcRXGijqWocGwg XQI5y3DjQv52P8YqdFlyv2Ki Pjx0 ec17hDZig1W5jDG2W5OcTLDq dacfmVXcpPznYU0lKKYkrncg RYMtyM8rYGGrW8f2VpIzVeJ7 MGlu P3HipzZ5ZSUjwRFjWZJcjHHP bX3bjtxjm5hiuifiIyPgJHAz KIy4XCf1NGYssKtvZqRvQQN2 OyB2 IMV3oUTwvN9irOhfvavbfJ2q Oyc+EDp4u7ghfHTfVF5loAV1 AE87ZA88lAQji1U4pDB0O9Iw ZGRp lepcnmdqbNC6YICpVCKagU61 Ga0nhWnhKh1mFLErKFH7COTv mXSdR0PttO2jJgRtMHGtQFWq O3Rl nMMqOYwiP332MXkxGnP2NFEg arLgU3HlTPFyfOtaMhR6e8Q8 Wc3OBR12ME56GV74wASrp0P2 bGU9 D6OfWIAgdifivchfyFJ5PTKp FNDpdA95Gb8hnNpuBp8oYFSt NJT6UYBtqMEjN6WmyZ3uYkDy MDAw SAGkW8SrlZKxXXrtZ189LXjv HgT0IYSakwSqF4BuOSLaoUlx AhC3a3V0Gm7BSc74HN07FW85 dGQg z3P7gOC8I4TtYIWqorzueaig aTE9ZNXkXIOguP63Nd3bwVet Pb9zHSTmYBG6EKExsGIfY5Rl bG9y ZxFvNRQnABQnY5KrbJAqRAqi K934YDafYtZ3EQBaayYkP7Bh TOSuePnsNfH9z9V1Ur4NZFgw cjo8 E9HmTexcwPV+WX56BTLdMT93 yYSsoUTbs6jgpXu6MvOnOOJe NRJ1oHetXEjbx6MkPOCbL89o bGFw c2U6 (more content not included)... [facility] Coding Summary.on 05-25-2022 Coding Summary. CD:[id number]:[id number] Gh0b Ww+PGhlYWQ+ZJ4GXPPbJ40kg KIqiE1OV8sYKP6ZHBQLIBNGB E4XHX6ciAJ3MIpeC9OnjiUs UefhnZJqYI76UWc1GZY7rPoc MHchtQ3jwIWgV5b0AoLgGO25 wN85NGxcGQUlEkT1NdNqybac bWFy N6dwKoYscCHoFht+PHRhYmxl IHdpZHRoPScxMDAlJyBzdHls IH0zOd0gCUQiCVYdgPwizGOj OiBj u1rnQJEcZOjxOM2hxZlbX0Or nTS8AVFpc5n5Zd49mVL+PHRk LZC1dLmqZSbvn537GnPbj1ui IDM3 xDXgJIyqMWJ1H48sw1O2YBKl XIHrASA6aDD0pI9tkHhvxsds Y9JwgKItXvH6RFN2fATzwH7a bGln pickuZ6qEfl+W63CYB1EDYTQ SM3IOfg2E6OzNgekfUS+PC90 NLRkSY87aCZquBXxf2qvkHz9 JzEw NVJnAJF8yKbrZVsus5OnVMBx U02wvFHmw0A0MIHaiTwfcFWl GwWawMA9xN4pDPqrhuiva9jm dzsn Ymnbn0twgh62xQ09O89hEWew GTKxDVX9BOAwINIhjUuhrb7o pH1gYs1+UOepu6wde5hybGs6 IjIw IFHmqkVeyUugIVX4l8NyPd72 J9TzzQnhb2SeLca0kk53dIKv k1A9jZQ6UUfuENSzvF0kCLyt ZnQ6 VYQlQoQtiI06aIMaNFidJl3l lWvnzXwnTA7wLBBcsojvNDOa gU4gKIZbeOVgpUxuVK7kEOOd bjtm m121UpAiCSE4FFZfwLAyH7Tt zF2gYxTqQELwJSPaL1AtwMSr LWocF972NAlhQkX5BQMlneDb Y2Fs QUWhpNemQaH9g4G6Jh2Xw4Mc awagGWC4ESqhGGGfCsV9PpAk BrR6U5HeBrr9JWXdlVkrKV1p J3Bh ALFgrbjfhuwpkFG8KRVvZSBz mM15cZDeUWoxBp3ua3F2g377 IGKzIBKdqW30Zo6kuEudGETl dCBU zT9ekmlwh2mlgqxgDbVxYEOb EQz9ACx2RRGuyShiSaNrWFR1 KkB9HIY8nOWgbN3izKphyuyt dG9w Oyc+I28nqG2sJUD1YWT0ytco LYYftdWwGL94DO09V0DoTjhz dGFibGU+TBJjetXkuDjwPI5q YmFj p2nar2PbPKmeO0DbZWBsLLjg Yym9NADuLCU4cAE7mJ4yBCSw OMqlm4M7sIE4P1CarxFgqf0j b2xs CSYtXIjbY69ckFBfr5R6MKAn aZT0NERwpRalUqCvmU31Lia+ SJPpxCeib2AoTmiuy9qjl7fb dGg9 LrLlUOLgcoWhdCotAOQ7x9Rw Qy57J73kLMkhYAQvQLPmHSCr VMGhhXawtl3dhV9rVu7+PGNv bCB3 yQA6sS1iJAIxPpF9KVtiO759 XtIfbGNlAuxat3bev7qrrFt0 VbJmIAXlbrDiqEmdDWO3h1Xa Lz48 M63eEGhsFZJcALVeYYNaLXXv eJtgkr8hpM9vDv3+AZ3mk0vc sx62mY83sPW+SHGwQRW7zXpf PSdw XUEkyL9xATaeOyQ5LMYnLjQi jY69eMJnXDttZh2wgUeloHlw VA7kBZGqrtxth106EyUgv7tf IDEw rJIeTVruGQR4C18ub1Y7FGCa SDQjVZJ4mZZ1yM8zqIosteux bGVmdDsgdmVydGljYWwtYWxp Z246 IHRvcDsnPlBhdGllbnQgTmFt HFz0V9AiUla7YSHcnPmoPK0g zFEuBYhcUb9usUcjcXzeST4z NTBp qcrsb170ZsEii0rqZYZchQQe YTamXSC2I10lw0W5AHPxPOUw JGS9mDI1oU2muZniclycsDUr dDsg wpWbbYnsMCsvPIukV057YBNu lOzdDpHjrzRtYHXmiGE4AV17 QL02yJSro9T5hZL8W1KqOHRh bmct iwclpPC4ANIsSNGlhS14Nj1t tGtaWb6jNJEfFIV5SPCunMTi B6TheO2iEbRsOCPwRJFaH6Pk eHQt ZLjtT999ZNclSpQ5BXIaleOk P4WvEAJrqFwyErY3g6S2Bo7T O6O3RT67KX83zIBeg9D2dRF0 J3Bh BYSemchnfjjjzXO4QNVvJHNr gC56Qb9arUeaMi6fTEJyTEB1 BDQwnCHnF2AtrU6uNhSiNQLn MDAw B7JglFMuBTmzI072IRizUuL7 UJZfynEhK7OuTQFfyOjlNnA4 p2D2Ja4YNQn1LR14VI99mHXm c3R5 sNG7P9SeNHOtgtvfsyspvYW8 BNIdSMWscI66Yi2laThsGs7b UNSqKBJ5KZEgbMKmA7VrqT7e OiAj RJZbVHZxU2SexZVzJWgpY217 CWdxCsC1CJTkeyEiO0ZnHYRi xEiwXxU8b3T5Vc0IHQDqYZ98 IFR5 tQW4TX56YD38U0XpSwwrtRAy bGU+PHRhYmxlIHdpZHRoPScx RFAcBrQerZufJA7tGx4cRCUb LWNv uMdbcTWtUcLqd3toCDGxWJay KC9igIqhN6ZptCZ4EGUll5f5 Tp89F19uG1WjoZI+PGNvbCB3 aWR0 tF7dPwKkVsA6SYyiJ559KqZg rFFxOwfgv2aof6quvPg3SeR2 VJLtghHhnYwmUMN2b2CzLd95 Y29s IHdpZHRoPSIxNSUiIHZhbGln vf9asO0hEg5+XDQiwQW5lPQ2 vF3dZrZrBiJ8FSgdB583FoZz cCIv Aqmuw6sgd6mivAx3ZbHqWYFi zmEtrWagGDK1q1ZgAg43F6Wy vEhrq3FaKlo3kt12xTSqa9W1 bGU9 R0QlTNMquyxjtZRwgWeeRL8k FNMupsspLQLqwL3tQBGnQ8w2 NyUkFsX5SWodH0BwndG7YJXu cHQg EPrgSLX5O67eg8Y2GEThVQYd KVB3jBU5gD7qaJvxndrzoWNa eZxmzeFpnRteSFzdRQhgC593 IHRv hKzcZMYowO1eAKYthROxgPfd MI5zAFNmkymjIjgQGfnzGOaA KyOCHD60NX14cEOwl0Z1uHK1 J3Bh DYLvsreurkfitTE4IDOnGMYv bA36zLFcWHcjWk3br3J4h177 GWXsZHShpL91Xl9ptDcdSXZn dCBU pD0kvxixw5dzxcztRaHcGZSf YPk8UKc3VCIqoOpoPlPiVTF3 VxE6QLW3qOQugY1uzXhzilxt dG9w Oyc+NLDjLwIcMKe0QSnlrRK+ TQLsLKP6ePxlAPakTRFovZ3e WHYmS3l0RoFjOwN9PAtuJ1Qg ZGRp kwbfIo69nJ2dGlOoGnC4IOgh D4GadpE8NBLclTRuOHeqNDB9 F42aq6V7XEHoNOHgYKR5pGM3 dC1h bGlnbjogbGVmdDsgdmVydGlj VYbwNHgxG986KINjnJphGpE6 QTscEYTwFF44AD85qMLvn6Q0 bGU9 M2BvFTCoqiigpkybpRY2CPNp DEYpyK61hBSrBJtiRo9sc9N4 j446PONmSQIitZ53Mq5giQak MTBw rJASgK0mxbyvo3shcswdWvSe DKTyKHb7EAj0OGEytQrlLmWv JRN3VcM3GJH0fUNgpQ8smWff bjog iR1cTvm+TWFsZTwvdGQ+PHRk DEQ8oIgzYQjvZBTmlT6hNTCu L9f9StIjMxK6ICeyA7VcACIt bmct Gp81wC2tNhEdHmM9MScwI4Zt tcM4LWCqgQHiPSjdOID5E54m q8A3RFPpDVVdADD9cMX2pP6w bGln bjogbGVmdDsgdmVydGljYWwt STvkY667YGPkzNegZv61vHXt tCdetlU8R8EhUanmaHA+PC90 YWJs ZT13oCLmnRHsi4rxvLz5CuOd WFVtREC5wKdoPDzsq3FdTDGv S30amELzx1X6UBPvuNkgwTYp OyBl xVD6tK9dXTeiycfhm5tuerrb Kizyk7otqn76aG39W24gXYvo HSUcCWZcPPFxNEFnqVqoqr7z dG9w Ii8+GKDjbKS9kYZ8rK1yMmRu CpQ5JPgxN679GrIavTQuOkmm e2rpb2msoIz0FiVtAQWifcHm aWdu VRT9r8OlPo17L58hYTacSQQi MDRtNYOpJZUqvPwruo5pzO4z Ii8+TI1zb5ciex22aC38hKE+ PHRk WEQ3uNjhXUsfLIXjlE7kRJna RnE5YHNdGyDruC31cEMmJPim Vt1nwMwexLgfXR5eJJBwiohf b250 NsDod5vvXUBdgHLnXPjeTCC6 B74pa4H3UACxVQEgWIW2aLZ6 fA3wqGqxcxwviWBhiMvumtTa dGlj UBllSBctS178NHZtyJjyTuXw oVXlX5qoutESLN2hWnrstBB+ MHOfLXZ7rUvyWUpjONIesW9i LXJp M6z5DkLeAdW0VBgpW2UlijC2 TWUkoKXpVTAsjVSMaP3pmwhb y9vaksknSfWgOUNmWSk3HJm8 LWFs hLblLkLdTGH4IwB9OOT7iVMu iO1pjSeookpapV0wFak+RklO OjwvdGQ+CEMkNCE3qHslIZbk YWRk mF9oEOYtX8l9WwSoBcC5PWqc D9PpahL2ICSokOVxMPGfkEGG wH7rvthgq5cvenblOhEpITZc MDt0 RMz9TZBltHuvXuXfHMN2MoI4 BST9gGZncI7bwXszjprglY1t Oyc+TVJOOjwvdGQ+PHRkIHN0 eWxl TYayTGOayY6rDAEqP5d5NuSq RzG9NAcnD0GqmhW1AXMmhYGg HWGhdBZAhH0ewdovj2epjmhi IzAw UCHpMGg0HJp3GWMutCdrPuIx SIH1DuT4ACS4dYTbfV3nmNql zxfsdO4nBai+JZQ5JTF5FN47 ZD48 J4VtUlilpGSjiAI+PHRhYmxl IHdpZHRoPScxMDAlJyBzdHls ZE2xLw3dGKUeGHXquCzfsLGq OiBj b2xs (more content not included)... [facility] Coding Summary.on 05-23-2022 Coding Summary. CD:[id number]:[id number] Gh0b Ww+PGhlYWQ+AC4VTDQiB13nr HNvsN8HG4mCRF5ENFHVTONNV L8MBM2xhQE0PThxF9KirdDp NnpftFTpJE83VLm8NAY7wYdu WBciaV4uvDOsE2o7TmLlVV36 kU29KZloTIYqZlG1XkRxlvvd bWFy M0nvFzAxhXWsQvo+PHRhYmxl IHdpZHRoPScxMDAlJyBzdHls ON3zGs0mBEIoQVNvyMsfoWQg OiBj q8auDKBsFUjkOX9utRmwQ9Ph pYS9PNPoo6f3Je93xTS+PHRk SEO5iWuyELomb955PoFlb0uc IDM3 oBKyPHzxCAS5S62xr0R2MSYj EUVcIXL4oYS9wP4pcUgssbce A3HgxQUdPiQ8UNL8zYNeiN6u bGln ksjekV6zOhc+O89MWO9ZWQFA PY2DNrb1E2MqArbvrOO+PC90 KDHhVW87aJNmaSAex9zzaDp0 JzEw EMPpTPR0bZokUQodl3YqFTWh H76yeDSlh3L5AVPenGiclRJn IzBvxWS0gC1rWXgjwvial4yn dzsn Osbqb7ohto79xB74Z30jLVfe AZGwCTB6XYRpDOYilAomki5b uC5mKf5+MVwxx8pgm1zsnVp1 IjIw BTAdueKzyFpjSUW7b4TgWm01 R2YiaUddy9JvFkv0yq35oYSl j4D0fRI2QOqsJDBouY7pFKny ZnQ6 VXWoMpLpqT41pMKhOTcgPh7v iZybnPgdRY7eZVObjrekIAEe iW2iZJVhgPIreCrvQW4dPEDy bjtm e995UxGjYYI1KVHrkLSpC5En gL5wMwVwEYGjTGEhN4OgxGLx UImcJ799VQnhDtT5JOTmfnCo Y2Fs BLUexFymMkP5p8E3Mp8Dz5Oh htnwNKE5MQqmGCAgCcK6RwPa TaY5X3VrXfn5GQCxlOjoVK0b J3Bh CVBlleimjwldfCB7WYFhYQGb eH85cYVtEMwlUc6xa7Q3l951 BKKiEKZtvD17Vv6qjOldUUWx dCBU cO4qztjdy7icflrdDsQePRRn SZu4RHy8ANOllIinYdAfYLM5 JtS0KYM1kDJimB5hlIsvfegk dG9w Oyc+J90lkW0nQKG7ZWP7dqzc CQJrzxChIH64EO45W4MjDifj dGFibGU+IGWylwVbfZzeQE1u YmFj k6jow6GbJRcoY5BpVGUwFCti Ssi2QRXqBNY7eOE3xD5qHLMb MMyrv6O4mII7J6MnqcTaud1c b2xs ARHzRZouE18jgXTqp2B9BYLy cJF0PYTavRssHmWwtT66Mjs+ AKChtQdbk6PaXkgpr5oqs6bq dGg9 JuQmYUZieyWteYkqDBR9x2Ui Ul50D22kLIwgQKBlOSGlGKNz OIZqmXaagp8cvV3dQx3+PGNv bCB3 xBY9vX5qAAAaXgM7AKrsE574 JvRxdJLmDpzvl2met2ifbBf2 MhJkSUUwbvGwvOcnAEY3n4Ci Lz48 L46mRLwfRNNsGHXtLWBmYUDm aCfyzi6ieD0jBp8+IW2fl7zm wg72uE72gCJ+INGzUWM9tOov PSdw BTWjqN9eLHpvZqA5TROvFxBr eG00wXShMJsqYo5ipYhtbRxz ZC3lWABikwtoc220YyInm7as IDEw hRQnRKxbZJA7G68vf9N4GQAg RUGcSWZ9rHK5uT8vzAiursxt bGVmdDsgdmVydGljYWwtYWxp Z246 IHRvcDsnPlBhdGllbnQgTmFt SVc1X9UpOlt4CJVgnKhbYX8w aNZuIIveEm3izOpvjScrIM3v NTBp vzziy347BiRoi8loULIjlTAl FJklMFT0E14jl9E8VUOpUIGf BYP5dYE6zB5nfCmibxtwbLBk dDsg bfTmiLntUHgdAUagL016MJFo kJuuUcIgnrTjVLHlbKV4WF26 MS93fIYco7A8dYM5R3AsHMNk bmct kykzfRS4COEzRXCmqS80Yc2e uBprKo7dPUVwZAX2RYRlrTMx J8BxbO2mCjNsWOLnVYExL3Hj eHQt GLfaX960ODldEqX6YODixrSp V3RcLJErlKmsZgF0a2U9Ve2A N0A6QF22LK16qAQlj4X0vFX4 J3Bh OSNexkpqahozhVH7IRUzCTBb tH58Kp9xkTusUy9xGXAhJAR2 SOWeoDMdH8PldR4tQyOzJHMd MDAw P2ZpgUUxTGzjP377TQwkGwR2 PFHqwlOxR2AqMJFmhBueTyS0 m0T7Cm5TOZt1YS35JS06lSNf c3R5 oGX8J0LuVFUcbyacuojmoJV1 OUJrWWVizC12Bg2pqNomDg6e JPCeHYP8HCFmyJDwN0HrtA2n OiAj YDHcWDYwI3ZopBTcXKvuE538 CGsbCnO1JUBjzoTdT4XuUXCw rWkqGlM5i2S8Op2AKBJhCK54 IFR5 dKW7ZX19DG92P9XzFbbqgTPd bGU+PHRhYmxlIHdpZHRoPScx GKSlVnKuxHfcGH9gUa9uSKCx LWNv dAsdqTJgCxGly1ivXLKgIOir HD0euYwsR8AusAG3UQPch9b3 Ma17C87yH3EyqUT+PGNvbCB3 aWR0 pP7eJgTbKxX1WBfqN095ErOg gTRvRegfx5mps5cflBg0EnK1 NERdkoKnzTmxYJC9q7YyYn95 Y29s IHdpZHRoPSIxNSUiIHZhbGln ue9akP2nLw1+CCPohYE4lUG2 kW0bLeSwOpS4CUjbT107SgHp cCIv Fvdya9mgi0ojyBk1VpZmOUSl urCxoCakYKB7i2BrBb48G0Ad lRadc9TcVbz3en41nJUsb9X1 bGU9 S8ClZXEqldsebADniOaeBF8o IYNlizjhWROiwN4fKFTdO3p3 ZgAnTqX8OPtnH5QwryK3SFCc cHQg SIuhSZC3C34xd3J5HGAvVVHg GME2gUR0kH3wtYhlksjggHYd qIpvlkTraBrkVLnrSSuwK062 IHRv xTajOXCkkT4qDICbkXXbuMop LV2kMCMzfwhoQqzBSuhmNJhS HqHBIV53QH53jOAum6C9vWD7 J3Bh ZZRocdxqmxgzqQP4LBYtOJMl mH79iAZhFGxuUp3cl2K8b388 HXLfEGUmtN14Hc4jtKysPEOq dCBU wS6llqpfw7peuaddEyKzTSXh EDv9HMp2REMzkMjdIrMoWED1 EeK6GWW8qUVlrU7fvVffhbsv dG9w Oyc+MOZfPtLbTEw7LQlvzYK+ PJDmLKC8xZmrHGqtXQGbkX4f TSKhI2x6TrXxJaE0JUnbM1Yk ZGRp frlpBv02vC1sLvAsWhH4SYlc N5MjwtV1MCGdqAOvTKtnTEE2 L55wc4L4DAEoBAGxOWH5nIB6 dC1h bGlnbjogbGVmdDsgdmVydGlj LZzqQYvsE666SYChwVfoQuU5 AWuoJPJuYT53EC40vJUhs2B9 bGU9 M5BfOVYggfiaaaqhwZK7RDWu XVItdE06fYNpHQdvBh0ec0X3 j088YIEdUZQjnK58As0nmLgr MTBw uEFGsG2cbrnof3lyifkmLsQp MIYaCXy9QVj3MQTdoCnfNfIm MFN8UuS3KJS1uPBcyP3xkKtp bjog aQ0sOsi+TWFsZTwvdGQ+PHRk DED4tEowEUydCYBdvG0gJMIn Z6p3YzDpWjY4OAixT4ArSXTn bmct Wj95gL3kOcDwYaK4MOmoN4Sd fbI7TRQknGJgQIiiIPJ5W01q e1B9UVZmUPGlLUK6sNK0fG7k bGln bjogbGVmdDsgdmVydGljYWwt XLrsN266AAPcnZjkWxCwIETl XY3dnXaibHH+ZJ84em23K4Ka Ymxl Ndq1FSIxKUS7xEK4bM4pXNAj BKnfc9I0xYH7G2MxukNilc2m w7kwEQZvRYstS09rzMUas2R1 IGVt wNV9QTHqtDnlIlMnnC74Xbw+ REWapHxrf5YiQwqlc7mwc1sb hYe8LuBcQMOjuaFxlQycLGQ1 b3Ai Pw30L10kWZyaQELzCBCuHYJh MAGeeDjpoh9swJ2dTu6+PGNv rPM2dAH6kR6nBkWlBbE3COwe Z249 GlCkaNJkHtqrg6tsh3jhlCs1 AlJeQLZbcxRcjLftXEC8b2Yb At56Z3MkhCxox1SmEht9fk62 dGQg j4Q7aQS4R2GoXKRjbrlnnJAn hWnhSQ4lKUBvwlnkGJUetN4v JTObS8x3BrZfXkR8ZYepP2Gr bnQ6 QYUggAFtFFFafXPPuP7eqxof j7gybcjzIsQvYVPuGHn7GQe2 IBSlnEqkYxBhATT3OfK2UEN0 aWNh fR7heLulzwzjsM1jKvl+UGh5 r3hdpYZsQQ8rqSC1DX25HY21 uGWit5B0uYO6M0UmCBDlwufr cmln bXO6GJDrAIOhpK54Kw1urKzo Kh8wVAAzDTY3WAKrfITzP1Mt rM4bErYjNNKxHENcY6UlkFTl YWxp H074GHmdXuY1OJHvreWoS7Vw SMXwjNueWeQ6b5W9Oj8BRB61 NL66PW75wNNfd3Q5hNV2K3Vk ZGRp lezwlhgfhRC6YLHiIKFwhK21 Oe6bwFbhAk6nUEYlCYC8BTVv cRAcH2NwtB5xXpFqNXNsOCZg O3Rl ySDgRKppC248VIxvRuF8VFWp asKmG6VgFODgvKxvNwQ3m2X9 Mx7KHq36IJ95TP69vAWjc6Z8 bGU9 Z8ZuVRSsdbfthknztBL5WSEf OTDbcA24Zz6uuOnqDm1pIORu RLM9FXFvdQRgT1SjiU7zGnDw MDAw OFPuH4FdkFYhGAosC454AGci ZmW0CZSmltPlU8VlBVDnwLpg XhP3d7M2Ga1KDUalpif4C0Up Pjwv dHI+WK60EHDmLP08dIUwcAEw g5zltRz3ReNxKWRbBFU9cYcg RIgtd2ByWVTkO46onVBfd5H6 [facility] (more content not included)... Normal [facility] Consent for Treatmenton Consent for Treatment [id number]#[id number]: 127 Normal [facility] Consultation Noteon 05-23-20 Consultation Note Patient: CHRISTIANO ZHENG Age: 26 years Sex: Male : 1995 Associated Diagnoses: None Author: Sen Burgess MD Subjective Chief complaint 05/23/2022 14:51 EST neck pain . 26-year-old gentleman following up from MRI of the cervical spine. He continues to have neck pain that radiates in the right medial scapular border. Use of the right arm and turning his head exacerbate the pain. Pain ranges anywhere from 2 to a 7 out of 10 on the visual analog scale. Described as sharp and aching. Denies red flag symptoms. The patient is recovering from a sinus/upper respiratory tract infection. The pain has not responded to a full course of physical therapy as well as regular use of NSAIDs. Health Status Allergies: Allergic Reactions (All) Moderate Dilaudid- Hives. Severity Not Documented Morphine- Anaphylaxis. OxyCODONE- Nausea. Current medications: (Selected) Prescriptions Prescribed Lexapro 20 mg Tab: 20 mg = 1 tab(s), Oral, Daily, # 30 tab(s), Refills(s) 1, Pharmacy: [facility]/pharmacy #[id number], 178, cm, 04/28/22 15:31:00 EST, Height/Length Dosing, 79.7, kg, 04/28/22 15:31:00 EST, Weight Dosing Vistaril 25 mg Cap: 25 mg = 1 cap(s), Oral, TID, PRN for anxiety, # 40 cap(s), Refills(s) 2, Pharmacy: [facility]/pharmacy #[id number], 178, cm, 04/28/22 15:31:00 EST, Height/Length Dosing, 79.7, kg, 04/28/22 15:31:00 EST, Weight Dosing benzonatate 200 mg oral capsule: 200 mg = 1 cap(s), Oral, TID, X 7 day(s), # 21 cap(s), Refills(s) 0, [id number], cm, 05/19/22 10:12:00 EST, Height/Length Dosing, 80, kg, 05/19/22 10:12:00 EST, Weight Dosing brompheniramine/dextrome thorph/phenylephrine 1 mg-5 mg-2.5 mg/5 mL oral liquid: 10 mL, Oral, q4hr for cough and congestion, 118 mL, Refill(s) 0, [id number], cm, 05/14/22 19:45:00 EST, Height/Length Dosing, 79.5, kg, 05/14/22 19:45:00 EST, Weight Dosing cefdinir 300 mg Cap: 300 mg = 1 cap(s), Oral, q12hr, X 10 day(s), # 20 cap(s), Refills(s) 0, [id number] 180, cm, 05/19/22 10:12:00 EST, Height/Length Dosing, 80, kg, 05/19/22 10:12:00 EST, Weight Dosing cyclobenzaprine 10 mg Tab: 10 mg = 1 tab(s), Oral, TID, PRN for spasm, # 30 tab(s), Refills(s) 0, [id number] 178, cm, 03/28/22 14:15:00 EDT, Height/Length Dosing, 83.1, kg, 03/28/22 14:15:00 EDT, Weight Dosing predniSONE 20 mg Tab: 60 mg = 3 tab(s), Oral, Daily, X 5 day(s), # 15 tab(s), Refills(s) 0, [id number] 180, cm, 05/19/22 10:12:00 EST, Height/Length Dosing, 80, kg, 05/19/22 10:12:00 EST, Weight Dosing Problem list: All Problems Anxiety / SNOMED CT 51116054 / Confirmed BMI 23.0-23.9, adult / SNOMED CT 0444945838 / Confirmed Cervical radiculopathy / SNOMED CT 780707584 / Confirmed Cervical spondylosis / SNOMED CT 6550928332 / Confirmed Constipation / SNOMED CT 54922740 / Confirmed after GB removed Difficulty swallowing / SNOMED CT 11028679 / Confirmed Enlarged tonsils / SNOMED CT 939416789 / Confirmed Family history unknown / SNOMED CT 0677867325 / Confirmed Former smoker / SNOMED CT 17583263 / Confirmed Hearing deficit / SNOMED CT 80309475 / Confirmed Hemolytic anemia / SNOMED CT 740324438 / Confirmed Hereditary spherocytosis / SNOMED CT 34037915 / Confirmed History of neck pain / SNOMED CT 9806063269 / Confirmed Hospital discharge follow-up / SNOMED CT 5933363387 / Confirmed Insomnia / SNOMED CT 154459461 / Confirmed Lower back pain / SNOMED CT 306118084 / Confirmed Medial epicondylitis / SNOMED CT 89888147 / Confirmed Muscle spasms of neck / SNOMED CT 9542501814 / Confirmed Non-smoker / SNOMED CT 59725571 / Confirmed PTSD (post-traumatic stress disorder) / SNOMED CT 00075572 / Confirmed Screening for cardiovascular condition / SNOMED CT 234203837 / Confirmed Splenomegaly / SNOMED CT 36471555 / Confirmed Stomal ulcer / SNOMED CT 7411472043 / Confirmed Testicle lump / SNOMED CT 172240185 / Confirmed Objective Vital Signs 05/23/2022 14:51 EST Peripheral Pulse Rate 96 bpm Respiratory Rate 16 br/min Systolic Blood Pressure 131 mmHg Diastolic Blood Pressure 78 mmHg Mean Arterial Pressure, Cuff 96 mmHg General: No acute distress. Alert and oriented x3. Well-nourished. Well-developed. Musculoskeletal: Seated comfortably. Diffusely tender right cervical paraspinal region. Positive Spurling's test on the right. Neuro: 5/5 strength throughout bilateral upper and lower extremities. Jo Ann sign negative bilaterally. Results Review MRI of the cervical spine without contrast personally reviewed. There is a right-sided lateral disc herniation at C6-7. Large lymph nodes noted. Patient notes that he had the MRI at the time he was experiencing onset of his upper respiratory tract infection symptoms. * Final Report * Reason For Exam M54.12 POWERSCRIBE REPORT IMPRESSION: MINIMAL CERVICAL SPONDYLOSIS C6-C7. MILD TO MODERATE NONSPECIFIC CERVICAL LYMPHADENOPATHY. CLINICAL CORRELATION WILL BE IMPORTANT. EXAM (more content not included)... Normal [facility] Comment on above: Result Comment: Elec tronically Signed By: Jenifer BOGGS, Sen Das.br\Date and Time Signed: 05/23/22 15:07 EST Office/Clinic Note-Physician on 05-23-2022 Office/Clinic Note-Physician [id number]#[id number] :127 Normal [facility] Patient Correspondenceon Patient Correspondence [id number]#[id number] :127 Normal [facility] Patient History Officeon Patient History Office [id number]#1.00CD :127 Normal [facility] ED Note-Physicianon 05-22-20 ED Note-Physician Basic Information Time Seen: Blane Rodas PA-C 05/19/2022 10:10 Chief Complaint patient c/o cough and congestion x1 wk. states he was seen here on sunday, negative flu and covid, negative chest xray sent home with bromfed- still coughing. History of Present Illness 26-year-old male comes to the ED for evaluation of upper respiratory infection symptoms. He states he was seen here last week when his symptoms began with cough congestion fevers. He had negative influenza and COVID and chest x-ray. Discharged home Bromfed-DM. He continues to have symptoms with congestion fevers and right ear pain. No chest pain or difficulty breathing. No other prior treatments. Review of Systems A 10 point review of systems is negative except as noted above. Medical and Surgical History: Reviewed and noted Social history: Lives at home Tobacco: Denies Physical Exam Vitals & Measurements HR: 91(Peripheral) RR: 18 BP: 132/81 SpO2: 97% HT: 180 cm WT: 80 kg BMI: 24.69 Nurses notes and vital signs reviewed and patient is not hypoxic. General: Well-appearing, does not appear ill Skin: Warm, dry. Head: Atraumatic. Neck: No JVD. Eye: Normal conjunctiva. Ears, Nose, Mouth, and Throat: Sinus congestion, no difficulty with speaking or swallowing. Left TM is clear. Right TM is markedly erythematous and tender. External canals are clear. Cardiovascular: Not tachycardic Chest wall: Respiratory: Respirations are nonlabored. Back: Normal range of motion. Musculoskeletal: Normal ROM with no gross deformity. Gastrointestinal: Urological: Neurological: Awake and alert. No focal deficits. Follows commands. Psychiatric: Cooperative. Medical Decision Making Patient does have a right otitis media on examination. He is treated with Omnicef. Overall nontoxic. Discharged home with PCP follow-up. Patient was encouraged to return to the ED if symptoms worsen or change. Assessment/Plan Otitis media (H66.90: Otitis media, unspecified, unspecified ear) Orders: cefdinir, 300 mg = 1 cap(s), Oral, q12hr, X 10 day(s), # 20 cap(s), Refills(s) 0, Pharmacy: [facility]/pharmacy #[id number], 180, cm, 05/19/22 10:12:00 EST, Height/Length Dosing, 80, kg, 05/19/22 10:12:00 EST, Weight Dosing Disposition Plan Patient Discharge Condition Disposition: Discharged home Condition: Improved and stable Counseled: Patient and/or family were counseled to workup, results, treatment plan and follow-up recommendations Discharge Prescription List Prescriptions cefdinir 300 mg Cap, 300 mg= 1 cap(s), Oral, q12hr Follow-up With When Contact Information Lelia Franklin In 3 days 05/22/2022 EST [address] [place] [address] [phone] Business (1) Additional Instructions: Patient Education Otitis Media, Adult Attestation Patient seen and evaluated by the physician mechanic's assistant. Attending physician was present in the emergency department and supervised care. This visit was performed by both the physician and an APC. I performed all aspects of the MDM as documented. This report was transcribed using voice recognition software. Every effort was made to ensure accuracy, however, inadvertently computerized rack washer mistakes may be present. Appropriate healthcare PPE was used in evaluating this patient. The patient was placed in a mask. The healthcare provider was wearing mask, gloves, and utilizing proper hand hygiene. All equipment was properly cleansed. Problem List/Past Medical History Ongoing Anxiety BMI 23.0-23.9, adult Cervical radiculopathy Cervical spondylosis Constipation Difficulty swallowing Enlarged tonsils Family history unknown Former smoker Hearing deficit Hemolytic anemia Hereditary spherocytosis History of neck pain Hospital discharge follow-up Insomnia Lower back pain Medial epicondylitis Muscle spasms of neck Non-smoker PTSD (post-traumatic stress disorder) Screening for cardiovascular condition Splenomegaly Stomal ulcer Testicle lump Historical Cholelithiasis Sleep apnea Procedure/Surgical History Cholecystectomy, Hernia repair, Splenectomy. Medications Inpatient No active inpatient medications Home Bromfed DM oral syrup, 10 mL, Oral, q6hr, PRN brompheniramine/dextrome thorph/phenylephrine 1 mg-5 mg-2.5 mg/5 mL oral liquid, 10 mL, Oral, q4hr, PRN cefdinir 300 mg Cap, 300 mg= 1 cap(s), Oral, q12hr cyclobenzaprine 10 mg Tab, 10 mg= 1 tab(s), Oral, TID, PRN Lexapro 20 mg Tab, 20 mg= 1 tab(s), Oral, Daily, 1 refills Vistaril 25 mg Cap, 25 mg= 1 cap(s), Oral, TID, PRN, 2 refills Allergies Dilaudid (Hives) morphine (anaphylaxis) oxyCODONE (Nausea) Social History Alcohol - Denies Alcohol Use, 02/09/2012 Household alcohol concerns: No., 04/28/2022 Substance Abuse - Denies Substance Abuse, 02/09/2012 Household substance abuse concerns: No., 04/28/2022 Tobacco - Denies Tobacco Use, 02/09/2012 Never (less than 100 in lifetime) Tobacco Use:. Never Smokeless Tobacco Use: (more content not included)... Normal [facility] Comment on above: Result Comment: Elec tronically Signed By: Blane Rodas PA-C\.br\Date and Time Signed: 05/19/22 10:40 EST\.br\Electronically Co-Signed By: Karan العراقي DO\.br\Date and Time Co-Signed: 05/22/22 07:44 EST MRI Spine Cervical w/o Contr rhett 05-21-2022 MRI Spine Cervical w/o Contrast Exam Date/Time: 05/19/2022 20:03 EST Reason for Exam: M54.12 Report IMPRESSION: MINIMAL CERVICAL SPONDYLOSIS C6-C7. MILD TO MODERATE NONSPECIFIC CERVICAL LYMPHADENOPATHY. CLINICAL CORRELATION WILL BE IMPORTANT. EXAM: MRI Spine Cervical w/o Contrast DATE: 05/19/2022 CLINICAL HISTORY: M54.12. COMPARISON: None available. TECHNIQUE: Multiplanar MR imaging of the cervical spine was performed. FINDINGS: The spine is visualized from the craniovertebral junction through the T1-to the diagnostic sagittal sequences. The visualized spinal cord is normal in signal and caliber. Mild reversal of the normal cervical lordosis is present, without significant subluxation. Several mild to moderately enlarged cervical lymph nodes are nonspecific, measuring up to approximately 1.4 x 1 x 3 cm - left level 2A neck (image 8 - axial series 8). At the C6-C7 level, there is a very small broad-based right subarticular disc osteophyte complex, which results in borderline right lateral recess narrowing. The C2-C3 through C5-C6, and C7-T1 and upper visualized thoracic levels are unremarkable. FINAL REPORT Dictated: 05/21/2022 11:00 am Ino Roberson MD Signed (Electronic Signature): 05/21/2022 11:00 am Signed by: Ino Roberson MD Transcribed by: MARY Technologist: ROBYN Technical Comments None [facility] Consent for Treatmenton Consent for Treatment [id number]#1.00CD: 127 Normal [facility] Consent for Treatment [id number]#1.00CD: 127 Normal [facility] Discharge Instructionson Discharge Instructions [id number]#[id number]: 127 Normal [facility] ED Clinical Summaryon 2021 ED Clinical Summary (Inserted Image. Claudia ble to display) [place] [id number] ED Clinical Summary Person Information Name: CHRISTIANO ZHENG [place] Age: 26 Years : 1995 Sex: Male Language: Malagasy PCP: Klonk Lelia CHURCH Marital Status: Phone: [phone] Visit Id: Visit Reason: Sinus Pain/Congestion; Cough; COUGH, CONGESTION Speciality: Acuity: 4 Enc Type: Emergency Med Service: Emergency Arrival: 05/19/2022 09:54:01 Discharge: 05/19/2022 10:49:11 LOS: 000 00:55 Checkin: 05/19/2022 09:54:01 Checkout: 05/19/2022 10:49:11 Dispo Type: Home (Routine DC) EVENTS: Event Name Event Status Request Date/Time Start Date/Time Complete Date/Time Arrive Complete 05/19/2022 09:54:01 05/19/2022 09:54:01 05/19/2022 09:54:01 Document Home Meds Request 05/19/2022 09:54:01 Triage Complete 05/19/2022 09:54:01 05/19/2022 10:12:33 05/19/2022 10:12:33 Bed Assign Complete 05/19/2022 10:09:26 05/19/2022 10:09:26 05/19/2022 10:09:26 Dr Exam Complete 05/19/2022 10:09:26 05/19/2022 10:10:12 05/19/2022 10:10:12 RN Exam Complete 05/19/2022 10:09:26 05/19/2022 10:13:47 05/19/2022 10:13:47 Registration Complete 05/19/2022 10:10:12 05/19/2022 10:19:59 05/19/2022 10:19:59 Patient Care Request 05/19/2022 10:12:34 Patient Isolation Request 05/19/2022 10:12:34 Reg Complete Request 05/19/2022 10:19:59 Dr Exam Complete 05/19/2022 10:29:57 05/19/2022 10:29:57 05/19/2022 10:29:57 Registration Request 05/19/2022 10:29:57 Discharge Complete 05/19/2022 10:38:17 05/19/2022 10:49:17 05/19/2022 10:49:17 Transfer Complete 05/19/2022 10:49:17 05/19/2022 10:49:17 05/19/2022 10:49:17 ADDRESS: [address] [place] [phone] PHYS DOC NOTES: MEDICAL INFORMATION: Prescriptions Given: New Medications [id number], [address] [place] [id number], [phone] benzonatate (benzonatate 200 mg oral capsule) 1 Capsules By Mouth 3 times a day for 7 Days. Refills: 0. cefdinir (cefdinir 300 mg Cap) 1 Capsules By Mouth every 12 hours for 10 Days. Refills: 0. predniSONE (predniSONE 20 mg Tab) 3 Tablets By Mouth every day for 5 Days. Refills: 0. Medications to Continue with No Changes Other Medications brompheniramine/dextrome thorph/phenylephrine (brompheniramine/dextrom ethorph/phenylephrine 1 mg-5 mg-2.5 mg/5 mL oral liquid) 10 Milliliter By Mouth every 4 hours as needed for cough and congestion. Refills: 0. brompheniramine/dextrome thorphan/PSE (Bromfed DM oral syrup) 10 Milliliter By Mouth every 6 hours as needed for cold symptoms for 7 Days. Refills: 0. cyclobenzaprine (cyclobenzaprine 10 mg Tab) 1 Tablets By Mouth 3 times a day as needed for spasm. Refills: 0. escitalopram (Lexapro 20 mg Tab) 1 Tablets By Mouth every day. Refills: 1. hydrOXYzine (Vistaril 25 mg Cap) 1 Capsules By Mouth 3 times a day as needed for anxiety. Refills: 2. PATIENT EDUCATION INFORMATION: Instructions: Otitis Media, Adult Follow up: With: Address: When: Lelia Franklin [address] [place], [place] [phone] Business (1) In 3 days 05/22/2022 DIAGNOSIS: Otitis media Normal [facility] ED Patient Education Noteon 05-19-2022 ED Patient Education Note ENT Otitis Media, Adult Otitis media occurs when there is inflammation and fluid in the middle ear. Your middle ear is a part of the ear that contains bones for hearing as well as air that helps send sounds to your brain. What are the causes? This condition is caused by a blockage in the eustachian tube. This tube drains fluid from the ear to the back of the nose (nasopharynx). A blockage in this tube can be caused by an object or by swelling (edema) in the tube. Problems that can cause a blockage include: ? A cold or other upper respiratory infection. ? Allergies. ? An irritant, such as tobacco smoke. ? Enlarged adenoids. The adenoids are areas of soft tissue located high in the back of the throat, behind the nose and the roof of the mouth. ? A mass in the nasopharynx. ? Damage to the ear caused by pressure changes (barotrauma). What are the signs or symptoms? Symptoms of this condition include: ? Ear pain. ? A fever. ? Decreased hearing. ? A headache. ? Tiredness (lethargy). ? Fluid leaking from the ear. ? Ringing in the ear. How is this diagnosed? This condition is diagnosed with a physical exam. During the exam your health care provider will use an instrument called an otoscope to look into your ear and check for redness, swelling, and fluid. He or she will also ask about your symptoms. Your health care provider may also order tests, such as: ? A test to check the movement of the eardrum (pneumatic otoscopy). This test is done by squeezing a small amount of air into the ear. ? A test that changes air pressure in the middle ear to check how well the eardrum moves and whether the eustachian tube is working (tympanogram). How is this treated? This condition usually goes away on its own within 3?5 days. But if the condition is caused by a bacteria infection and does not go away own its own, or keeps coming back, your health care provider may: ? Prescribe antibiotic medicines to treat the infection. ? Prescribe or recommend medicines to control pain. Follow these instructions at home: ? Take xtgv-fus-tgpgwtk and prescription medicines only as told by your health care provider. ? If you were prescribed an antibiotic medicine, take it as told by your health care provider. Do not stop taking the antibiotic even if you start to feel better. ? Keep all follow-up visits as told by your health care provider. This is important. Contact a health care provider if: ? You have bleeding from your nose. ? There is a lump on your neck. ? You are not getting better in 5 days. ? You feel worse instead of better. Get help right away if: ? You have severe pain that is not controlled with medicine. ? You have swelling, redness, or pain around your ear. ? You have stiffness in your neck. ? A part of your face is paralyzed. ? The bone behind your ear (mastoid) is tender when you touch it. ? You develop a severe headache. Summary ? Otitis media is redness, soreness, and swelling of the middle ear. ? This condition usually goes away on its own within 3?5 days. ? If the problem does not go away in 3?5 days, your health care provider may prescribe or recommend medicines to treat your symptoms. ? If you were prescribed an antibiotic medicine, take it as told by your health care provider. This information is not intended to replace advice given to you by your health care provider. Make sure you discuss any questions you have with your health care provider. Document Released: 03/09/2005 Document Revised: 05/17/2018 Document Reviewed: 05/25/2017 [employer] Patient Education ? 2019 [employer]. Normal [facility] ED Patient Summaryon 022 ED Patient Summary (Inserted Image. Claudia ble to display) [place] [id number] Patient Discharge Instructions Person Information Name: CHRISTIANO ZHENG Age: 26 Years Arrival Date: 05/19/2022 09:54:01 Discharge Diagnosis: Otitis media Primary Care Physician: Lelia Franklin NP Provider Information Primary Provider: Karan العراقي DO Advanced Undertaker Helper:Blane Rodas PA-C The exam and treatment you received in the Emergency Department were for an urgent problem and are not intended as complete care. It is important that you follow up with a doctor, nurse practitioner, or physician?s mechanic's assistant for ongoing care. If your symptoms become worse or you do not improve as expected and you are unable to reach your usual health care provider, you should return to the Emergency Department. We are available 24 hours a day. MARCE CHRISTIANO Muniz has been given the following list of patient education materials, prescriptions and follow-up instructions: Follow-up Instructions: With: Address: When: Lelia Franklin [address] [place], [place] [phone] Business (1) In 3 days 05/22/2022 In the event that this physician does not participate in your insurance network, please consult with your insurance company to find a nearby participating provider. Patient Education Materials: Otitis Media, Adult A MESSAGE TO ALL PATIENTS REGARDING OPIOIDS PRESCRIPTION OPIOIDS: WHAT YOU NEED TO KNOW Prescription opioids can be used to help relieve rbscsqxg-ka-pfppig pain and are often prescribed following a surgery or injury, or for certain health conditions. These medications can be an important part of the treatment but also come with serious risks. It is important to work with your healthcare provider to make sure you are getting the safest, most effective care. WHAT ARE THE RISKS AND SIDE EFFECTS OF OPIOID USE? Prescription opioids carry serious risks of addiction and overdose, especially with prolonged use. An opioid overdose, often marked by slowed breathing, can cause sudden . The use of prescription opioids can have a number of side effects as well, even when taken as directed: ? Tolerance?meaning you might need to take more of the medication for the same pain relief ? Physical dependence?meaning you have symptoms of withdrawal when a medication is stopped ? Increased sensitivity to pain ? Constipation ? Nausea, vomiting, and dry mouth ? Sleepiness and dizziness ? Confusion ? Depression ? Low levels of testosterone that can result in lower sex drive, energy, and strength ? Itching and sweating RISKS ARE GREATER WITH: ? History of drug misuse, substance use disorder, or overdose ? Mental health conditions (such as depression or anxiety) ? Sleep apnea ? Older age (65 years and older) ? Avoid alcohol while taking prescription opioids. Also, unless specifically advised by your health care provider, medications to avoid include: ? Benzodiazepines (such as Xanax or Valium) ? Muscle relaxants (such as Soma or Flexeril) ? Hypnotics (such as Ambien or Lunesta) ? Other prescription opioids KNOW YOUR OPTIONS Talk to your health care provider about ways to manage your pain that don?t involve prescription opioids. Some of these options may actually work better and have fewer risks and side effects. Options may include: ? Pain relievers such as acetaminophen, ibuprofen, and naproxen ? Some medication that are also used for depression or seizures ? Physical therapy and exercise ? Cognitive behavioral therapy, a psychological, goal-directed approach, in which patients learn how to modify physical, behavioral, and emotional triggers of pain and stress. IF YOU ARE PRESCRIBED OPIOIDS FOR PAIN: ? Never take opioids in greater amounts or more often than prescribed. ? Follow up with your primary health care provider. o Work together to create a plan on how to manage your pain. o Talk about ways to help manage your pain that don?t involve prescription opioids. o Talk about any and all concerns and side effects. ? Help prevent misuse and abuse o Never sell or share prescription opioids. o Never use another person?s prescription opioids. ? Store prescription opioids in a secure place and out of reach of others (this may include visitors, children, friends, and family). ? Safely dispose of unused prescription opioids: Find your community drug take-back program or your pharmacy mail-back program, or flush them down the toilet, following guidance from the Food and Drug Administration (www.fda.gov/Drugs/Resou rcesForYou). ? Visit www.cdc.gov/drugoverdose to learn about the risks of opioids abuse and overdose. ? If you believe you may be struggling with addiction, tell your health acute care surgeon and ask for guidance or call [facility] National Helpline at 0-136-851-HELP. v Source: Department of Health and (more content not included)... [facility] Prescriptions/Work Noteson 1 07-20-2021 Prescriptions/Work Notes [id number]: 127 [facility] RAD - MRI Screening Formon 1 07-20-2021 RAD - MRI Screening Form [id number]#[id number]: 127 [facility] Coding Summary.on 05-18-2022 Coding Summary. CD:[id number] Gh0b Ww+PGhlYWQ+QZ2ZTIWlR31fe IRgcR4DM1vZGC9WUDDOKZATS W5EUM1pwNC4CVniR4RrslBn HngfmFEmTE11FAz4ABG2qDbw AWknuH2dmCOpI5w4PrKwHC83 wZ87IKpeJLVnDgH6YhUqjcdc bWFy G1exAmDxsOYaIap+PHRhYmxl IHdpZHRoPScxMDAlJyBzdHls AB2lHe5jHJWaOLVmiRmeeCOw OiBj p8mhYLNcJIqvTP2fjTjsQ8Fl xSP4DEByx8b9Bj11vHI+PHRk KRF7rZppTWfxn359WkXft2gf IDM3 kPXgAKzmMQJ3L16ii9R9NHEh PVVjLJE3cNB7xP7udKhtskvh T0XugDHjPgP7CJJ4gJFdlL4m bGln viwqmN3tMaa+Y05VAU5ADKIN PC0PEju4X6IaNbddeLD+PC90 XQAcOQ60bCPkeDSux9zqxGy2 JzEw ZIMwKFF1fYwsIEgdq5AtKMQr T23fqPBsu6H1UGGgbPlncPHs OmGcoVW9pN4mNIymgcaam5ba dzsn Pxghm2cput63wO97G28cBKds AMXoTIQ6DOPxZPFcoFdovc2m kE3fNb6+HTcsv0ucl9cuzAg2 IjIw QRYrfbEfcSwqZXC9x9MeBl76 V4YwhIkun2RuRzl5uo22rIAp y7T6sCJ7UHblZNZbaN3yRKpc ZnQ6 WETuQsXfjQ82sRNdYQscWd0z eTsrxBttFH4pYKBxsypwWGTy pS7aPURirPIsjTpzCC7aPVRh bjtm v250OnNaNTQ5TTVxgANsO7Ex mE5uNtJbMPQzHKZnQ6XsvZMd PTzvC426CWiyOxV9XMAxksGt Y2Fs SRUhtAncWbY9w9E5Ef5Lc6Vt qlmjNFK0RKgmVVAwAmKjFpMq VqA4Z5JqSto1DOVczGsoZD2j J3Bh FAEhwlodwqgstKN0VZOzMCKp xG49kHHhQAqpMm2gj8M1u542 KDBqDBHxbO91Sz9yiMkxPCUj dCBU qW7crpceh8wkwevcNgPkJHWe CUq7HXk5ZADpyJqzPkJwHFQ4 AsY5GKW2wXDbnY3kwDqwzfak dG9w Oyc+L77qkM7kPYD0VJO5tnrl CEThhbQjND31ZJ94O4LrWzmu dGFibGU+ZPGgouIkmKeoDG0f YmFj u1tfr1CzSLwiV6OoBAAnOEub Woa6PNAkQVY4wZK6nC5iSKYq CDbaa8Q6lKZ6J9KktyKvly9d b2xs DANpVFhwA85pfZSwh6T7DDYx xSW4ELPghArzWaDbnD38Jmv+ SRUyaEqqq0FgQkttx8pfg9uv dGg9 PbMkWWBgxtEudFcuRBJ9g8Iv Tl23K81yYFaqFFEoLEEkDFSk QEBryOeisd9qsN3yNh7+PGNv bCB3 xII5xF8zUVScCvJ8YJoeA633 UwEkqYQlGqwii5djw5tlhGl5 GkSxFUYzlsEslRcdHYH5u9Am Lz48 I04tGJckMAMlWKNaKHPxVTGn cPcmii0zxC2xWi0+AG9mw7jc ft63rD28nXA+QMCeQZS3rVxk PSdw TNWypP0rUMwbEhN3JSIsOrJp kZ62uVPbASodUy1tvXdifHoz KS8jFUBwiptjq517QrCul1mv IDEw mHUmYAafHYT4Q01rd2G6HJAf DDYwXER4vRX3vZ5dfXdelisy bGVmdDsgdmVydGljYWwtYWxp Z246 IHRvcDsnPlBhdGllbnQgTmFt CBr3L7EaVli2ONRifCxgMG7t gVCoVMsxXv3oiXrflBzdZR7y NTBp vnsld538LgPxm4goIEDfyLSn SPlyETI8F91nz0K9QJZxQPMl GPT5uXT2pD9wmHiglelvuFGw dDsg fuNceHtcZBkqNAgaH339IVTa zTqiUeLvpzFnUAErrNA0LC71 UR84zVFcn0T8cKQ5H3FmOEGb bmct xzpnkKS5UBNpUEXwaB41Ku5o fZkaDd9lOLVxDMN4PWZvvOVj M4MbkO4lOjXeZGGrIAGlJ4Ho eHQt PZghH304VXafOqJ7PHOurySu N0NcLYMzbWplIeD3v1B4Gk2J U3D2NF88WL17yDQus7V9pGX9 J3Bh ITBuqdulehxygHZ5IOCpTGCg yN28Oz1tuFngTn8tOETbQWO0 LQIqaAQfH6LxsR9sVwHoMUHv MDAw P0YvfBBcMLufR256REenIeC0 RDWbskYiS8GlTSXajOfzYrE3 x5G6Up5UGWg9NS06UQ10sYWb c3R5 nWN4N4LeZFBysyytlocodBK5 BURqCYVaiP96Mq1pzUpyQc4b ZDJfWLU7BUTzgNVvR3QryW3v OiAj SOXjJXHcX3AoeBBjGUtfB367 AFeeBrZ8ISWkfhHtO5LyISDf uCfaMwD0s2H7Sl8CMZPuME62 IFR5 jDQ9XT54DZ19A5SgJgotiPZg bGU+PHRhYmxlIHdpZHRoPScx TRTxXnArsNrhRS0eRz8uLBAg LWNv kQskyVRlYxOmf7tjAFQcXOjh QA4ezHzvH0YsqTY4PQLuk4r9 Mk27T71gV8ShdAE+PGNvbCB3 aWR0 jD4xAvVzZwO1QUswD377RmPk qLOhDcxcn8jsc4rylPq3UfN5 IZZlfyFegUioNUD2t7CdYh60 Y29s IHdpZHRoPSIxNSUiIHZhbGln ub0qaC5uOh3+VGLhsRI6tRT8 oL8kVeLqUlA5VHoqU225MlVl cCIv Qxwsz1azk8mufRf6YiFrZSFu nuJfmUwsQTE4n8ScKx18L2Yr rDrgl4RfAxn1mr51lAJwb9W4 bGU9 D7UgMQWmuofdnOEfmFamTH7i PFWglbnxMTPjhK5sQTNxV2h4 MvKgQbH5CUudY0ZworX1SGTs cHQg EDbrPQM7X70nk3A7UJDyNFNh ILY2fJX0eF1lpMhydfovwZEb cDpaybMdyBgaHTibSGaiG304 IHRv bBinCDJggT7dLFTcdBXblQiy DF7xMJEzgzyySktKQkuhDPhY XdKTQG09GE09pIGlk5L3tAB3 J3Bh HTRfrwcqagsgzKT7HVNtOFLh tV95iLDfJGnmFv3pe9B1g024 EHYnWYVayS54Jd3dkAuzONGi dCBU nE7kfmxbw8pkeanrZhBoYCJu QOl5ZOx4AJMilVlqIzOdMIT6 TaA1LPO3fEIbmT7lrGksmnpd dG9w Oyc+DOAbZdNhBKw3AYsitAA+ UANnRPC7wYztZMkxLACpsP0u GAYqI4b0CoEoJqN4KKhrU8Ac ZGRp wgafNl45yO7qZlFvRkM7RBto M8SadmW5LYIztRTsOPboPDR7 Y05nt1Z4QPJkZCEhYOA3cFA7 dC1h bGlnbjogbGVmdDsgdmVydGlj TGxhKWbuC029FKAwuAszNgT3 APshRIXhXX63BD27tLUoy3K1 bGU9 F3BpQOCdtbiyinqtnQD2QGQf YJYvnT55kQTzWTcoLi3yz2W7 h807XDHkNWFdcD35Ge2qjEzf MTBw aJHEtD2iubufv7mzxcliJiEt CKEdNOx1SAj1ZWElsIuySmKg DQQ0HmI7ZKY1wHKqeT1kaKcx bjog fV2eFcz+TWFsZTwvdGQ+PHRk OJQ6lSsnBZjpNNYzbP1nQLEe V4i3YxYvNlK1XYanG5JuKVZy bmct Qh66lV9gIzGeRqD5VVyfW1Us xxQ0TWTtbZCtMWgjPDY1U87n z0X0DYIoJSAqLEE2eTK7wO5x bGln bjogbGVmdDsgdmVydGljYWwt DLzfH855ICEfgGsyFePtPGTi MA0bzImbjOA+OG49vh76W6Ta Ymxl Yzs1ONRcJER5cIT1dH8zRSWf WYdut3H8tMC3N7RkboRqlh3c b6evKNAaBIxjR52skHYxf8S6 IGVt sQH7GJDjiUmaAaUqzH82Btt+ UKYiuNzug7VlLzbek6chr8xp nXb5KtGbJRDfhqLxoKajNLQ4 b3Ai Yd05E07uFBlaITEkATHkEGJl LGIhfAxleg0rxL5rOz8+PGNv lNG9fBY6vB4sXcKdLnI7TMsw Z249 ZaWepKViUwnsu4uzl8vudCk2 FaNiXOLojrYnbOuuHBF1a5Pb Of69R1QpzApsn1KsMli8ab81 dGQg z4D6oFB7L1WrQOMueggyrRUh oDnhJI5rSDYhekpbDHJscJ9f LROgZ7h5AnQtOxU9HDqvA0Zx bnQ6 PKTtsFSpXQFnqATMgT9odgpy p5pijungBiMtPECsHRj6NHb9 TESukPumWeXsEJP8KcR7HKJ1 aWNh qN6flBipbanqwZ4iHrd+UGh5 o2orsKViOX6adEC7WD73RC30 rEUtk6R0iFT9Z1AxLSKmvern cmln nPX5LUXkNPHcvW45Yy5ozPwt Pn7vWNQmXDB0SHNmhRFkF1Gu mI1iJoThXZTnVUBwF1PxjNPh YWxp J682VAzdRvO1ZBObxpAtN2Kp YHMkrNtnByG4j8T5Ma1KLW06 UB31PW32pQOlu1L9mAO4T8Dy ZGRp iiglwjfnuAM0LEPyUTZpwU92 Vh8dcRvuGx2fADVhPIY3ZIXg cDEcZ7AonV3bVyBdMCCcYDTd O3Rl sNDwPLglX521NVffUcV9OMLw weRbM9HtMEUoeWyoCvY1i9W8 Wd5TMr08ZI54BE89sVMks1F1 bGU9 W8TvHMSnpmtvwpnpxSU6FHZm LHIimI28Ec5omActSv6yOBAg EGC7QZDzdLVaK3RxxS2cRgFt MDAw UQEsZ1GsyINnUIbnA809MYjv CwG2WMNcsdAsX3MsTCGplOho KlK0h1B3Rx8OWKdjrru4J3Qu Pjwv dHI+LI91LMAdHV26yEXwcHEy n9lbdKh0YiXkFVRhASF8kIer CZheo1XxKPVdK72mjOAbl5F0 IGNv bGxh (more content not included)... Normal [facility] ED Note-Physicianon 05-16-20 ED Note-Physician Basic Information Time Seen: Bandar Pope PA-C 05/14/2022 20:11 Chief Complaint Pt. presents to the ed with c/o cough, chest tightness and sore throat that started a few days ago. Pt. took an at home covid test and it was negative. History of Present Illness Patient is a 26-year-old male who presents the ED complaining of cough, sore throat, congestion for the last 4 days. Patient states that symptoms began 4 days ago with upper respiratory symptoms including nasal congestion. Patient states he is developed into a cough and sore throat which has been occurring worse over the last few days. Patient filemon has been taking DayQuil and NyQuil for symptoms with some relief. Patient also reports that he has been running low-grade fevers at home. Patient denies any chest pain or shortness of breath. Patient denies any bowel changes, urinary changes. Patient does have a history of asplenia. Patient reports taking a COVID test at home which was negative. Family history: Reviewed and noncontributory Social history: Reviewed and noncontributory Review of Systems Full 10 system ROS performed. Pt denies symptoms except as noted above in the HPI. Physical Exam Vitals & Measurements T: 37.3 ?C(Oral) HR: 84(Peripheral) RR: 18 BP: 130/84 SpO2: 97% HT: 180 cm WT: 79.5 kg BMI: 24.54 General: Pt is in NAD, nontoxic appearing Skin: Pt skin is warm and dry, no rashes or lesions appreciated HEENT: Atraumatic, normocephalic. Clear sclera. PERRLA. Extraocular movements grossly intact. Pulmonary: Breathing normally, no respiratory distress, no retractions, lungs CTAB Cardiovascular: Regular rate and rhythm, no murmurs/gallops/rubs. Distal pulses palpable in upper and lower extremities bilaterally Gastrointestinal: +BSX4. Abdomen soft, nondistended, nontender. No peritoneal signs present. Musculoskeletal: Pt has full ROM Neurological: Pt is alert and oriented. Sensation grossly intact in upper and lower extremities bilaterally. Lymphatic: No lymphadenopathy appreciated. No peripheral edema appreciated Psychiatric: Pt is cooperative, communicative, appropriately reactive Medical Decision Making Work-up in ED reviewed noted. Patient medical record reviewed noted. Patient presents ED for evaluation of upper respiratory symptoms. Patient is nontoxic in the ED. Patient with stable vital signs. Patient is ventilating well on room air. Patient without any evidence of a pneumonia on physical exam or chest x-ray. Patient negative on COVID and influenza swabs. Patient signs symptoms and history most consistent with a viral upper respiratory infection. Patient instructed on symptomatic management of upper respiratory infection. Return precautions, especially those concerning development of a pneumonia in an asplenic patient discussed with patient. Patient struck to pursue close follow-up with PCP. Patient questions answered. Patient discharged home. Assessment/Plan Upper respiratory infection (J06.9: Acute upper respiratory infection, unspecified) Orders: brompheniramine/dextrome thorph/phenylephrine, 10 mL, Oral, q4hr for cough and congestion, 118 mL, Refill(s) 0, [id number], 180, cm, 05/14/22 19:45:00 EST, Height/Length Dosing, 79.5, kg, 05/14/22 19:45:00 EST, Weight Dosing brompheniramine/dextrome thorphan/PSE, 10 mL, Syrup, Oral, Once, Stop date 05/14/22 22:41:00 EST, STAT, Start date 05/14/22 22:41:00 EST Influenza A&B Ag Rapid COVID Antigen [place] Medications Administered Given Bromfed DM oral syrup, 10 mL, Oral Disposition Plan Patient Discharge Condition Stable Discharge Disposition To home Discharge Prescription List Prescriptions No active prescription medications Follow-up No qualifying data available Attestation Patient seen and evaluated by the physician mechanic's assistant. Attending physician was present in the emergency department and supervised care. This visit was performed by both the physician and an APC. I performed all aspects of the MDM as documented. This report was transcribed using voice recognition software. Every effort was made to ensure accuracy, however, inadvertently computerized rack washer mistakes may be present. Appropriate healthcare PPE was used in evaluating this patient. The patient was placed in a mask. The healthcare provider was wearing mask, gloves, and utilizing proper hand hygiene. All equipment was properly cleansed Problem List/Past Medical History Ongoing Anxiety BMI 23.0-23.9, adult Cervical radiculopathy Cervical spondylosis Constipation Difficulty swallowing Enlarged tonsils Family history unknown Former smoker Hearing deficit Hemolytic anemia Hereditary spherocytosis History of neck pain Hospital discharge follow-up Insomnia Lower back pain Medial epicondylitis Muscle spasms of neck Non-smoker PTSD (post-traumatic stress disorder) Screening for cardiovascular condition Splenomegaly Stomal ulcer Testicle lump Historical Cholelithiasis (more content not included)... Normal [facility] Comment on above: Result Comment: Elec tronically Signed By: Bandar Pope PA-C\.br\Date and Time Signed: 05/15/22 02:11 EST\.br\Electronically Co-Signed By: Jose Taylor DO\.br\Date and Time Co-Signed: 05/16/22 06:44 EST Physician Orderon 05-16-2022 Physician Order [id number]: 127 Normal [facility] Discharge Instructionson Discharge Instructions [id number] :127 Normal [facility] [facility] ED Clinical Summary (Inserted Image. Claudia ble to display) [place] [id number] ED Clinical Summary Person Information Name: CHRISTIANO ZHENG [facility] Age: 26 Years : 1995 Sex: Male Language: Malagasy PCP: Lelia Franklin NP Marital Status: Phone: [phone] Visit Id: Visit Reason: Sinus Pain/Congestion; Throat pain - Adult; Cough; CHEST PAINS, TROUBLE BREATHING, FEVER, COUGH Speciality: Acuity: 4 Enc Type: Emergency Med Service: Emergency Arrival: 05/14/2022 19:32:44 Discharge: 05/14/2022 22:50:58 LOS: 000 03:18 Checkin: 05/14/2022 19:32:44 Checkout: 05/14/2022 22:50:58 Dispo Type: Home (Routine DC) EVENTS: Event Name Event Status Request Date/Time Start Date/Time Complete Date/Time Arrive Complete 05/14/2022 19:32:44 05/14/2022 19:32:44 05/14/2022 19:32:44 Document Home Meds Request 05/14/2022 19:32:44 Triage Complete 05/14/2022 19:32:44 05/14/2022 19:45:20 05/14/2022 19:45:20 EKG Complete 05/14/2022 19:35:34 05/14/2022 19:39:29 Bed Assign Complete 05/14/2022 19:35:40 05/14/2022 19:35:40 05/14/2022 19:35:40 Dr Exam Complete 05/14/2022 19:35:40 05/14/2022 20:11:40 05/14/2022 20:11:40 RN Exam Complete 05/14/2022 19:35:40 05/14/2022 20:43:27 05/14/2022 20:43:27 X-Ray Complete 05/14/2022 19:46:50 05/14/2022 19:47:33 05/14/2022 19:54:09 Wet Read Request 05/14/2022 19:54:09 Registration Complete 05/14/2022 20:11:40 05/14/2022 20:21:18 05/14/2022 20:21:18 Dr Exam Complete 05/14/2022 20:16:33 05/14/2022 20:16:33 05/14/2022 20:16:33 Reg Complete Request 05/14/2022 20:21:18 Pending Labs Complete 05/14/2022 21:30:33 05/14/2022 22:02:22 Lab Complete 05/14/2022 21:30:33 05/14/2022 22:02:22 Swab Complete 05/14/2022 21:30:33 05/14/2022 22:02:22 Meds Admin Cancel 05/14/2022 22:41:05 05/14/2022 22:42:11 Meds Admin Complete 05/14/2022 22:42:11 05/14/2022 22:47:58 Discharge Complete 05/14/2022 22:43:31 05/14/2022 22:51:08 05/14/2022 22:51:08 Transfer Complete 05/14/2022 22:51:08 05/14/2022 22:51:08 05/14/2022 22:51:08 [address] [place] [id number] PHYS DOC NOTES: MEDICAL INFORMATION: Prescriptions Given: New Medications [id number], [address] [place] [phone], [phone] brompheniramine/dextrome thorph/phenylephrine (brompheniramine/dextrom ethorph/phenylephrine 1 mg-5 mg-2.5 mg/5 mL oral liquid) 10 Milliliter By Mouth every 4 hours as needed for cough and congestion. Refills: 0. Medications to Continue with No Changes Other Medications brompheniramine/dextrome thorphan/PSE (Bromfed DM oral syrup) 10 Milliliter By Mouth every 6 hours as needed for cold symptoms for 7 Days. Refills: 0. cyclobenzaprine (cyclobenzaprine 10 mg Tab) 1 Tablets By Mouth 3 times a day as needed for spasm. Refills: 0. escitalopram (Lexapro 20 mg Tab) 1 Tablets By Mouth every day. Refills: 1. hydrOXYzine (Vistaril 25 mg Cap) 1 Capsules By Mouth 3 times a day as needed for anxiety. Refills: 2. PATIENT EDUCATION INFORMATION: Instructions: Cough, Adult Follow up: With: Address: When: Lelia Franklin [address] [place], [place] [phone] Business (1) In 3 days 05/17/2022 DIAGNOSIS: Upper respiratory infection Normal [facility] ED Patient Education Noteon 05-15-2022 ED Patient Education Note ENT Cough, Adult Coughing is a reflex that clears your throat and your airways (respiratory system). Coughing helps to heal and protect your lungs. It is normal to cough occasionally, but a cough that happens with other symptoms or lasts a long time may be a sign of a condition that needs treatment. An acute cough may only last 2?3 weeks, while a chronic cough may last 8 or more weeks. Coughing is commonly caused by: ? Infection of the respiratory systemby viruses or bacteria. ? Breathing in substances that irritate your lungs. ? Allergies. ? Asthma. ? Mucus that runs down the back of your throat (postnasal drip). ? Smoking. ? Acid backing up from the stomach into the esophagus (gastroesophageal reflux). ? Certain medicines. ? Chronic lung problems. ? Other medical conditions such as heart failure or a blood clot in the lung (pulmonary embolism). Follow these instructions at home: Medicines ? Take knlf-abk-iaeesmn and prescription medicines only as told by your health care provider. ? Talk with your health care provider before you take a cough suppressant medicine. Lifestyle ? Avoid cigarette smoke. Do not use any products that contain nicotine or tobacco, such as cigarettes, e-cigarettes, and chewing tobacco. If you need help quitting, ask your health care provider. ? Drink enough fluid to keep your urine pale yellow. ? Avoid caffeine. ? Do not drink alcohol if your health care provider tells you not to drink. General instructions ? Pay close attention to changes in your cough. Tell your health care provider about them. ? Always cover your mouth when you cough. ? Avoid things that make you cough, such as perfume, candles, cleaning products, or campfire or tobacco smoke. ? If the air is dry, use a cool mist vaporizer or humidifier in your bedroom or your home to help loosen secretions. ? If your cough is worse at night, try to sleep in a semi-upright position. ? Rest as needed. ? Keep all follow-up visits as told by your health care provider. This is important. Contact a health care provider if you: ? Have new symptoms. ? Cough up pus. ? Have a cough that does not get better after 2?3 weeks or gets worse. ? Cannot control your cough with cough suppressant medicines and you are losing sleep. ? Have pain that gets worse or pain that is not helped with medicine. ? Have a fever. ? Have unexplained weight loss. ? Have night sweats. Get help right away if: ? You cough up blood. ? You have difficulty breathing. ? Your heartbeat is very fast. These symptoms may represent a serious problem that is an emergency. Do not wait to see if the symptoms will go away. Get medical help right away. Call your local emergency services (911 in the [place] Do not drive yourself to the hospital. Summary ? Coughing is a reflex that clears your throat and your airways. It is normal to cough occasionally, but a cough that happens with other symptoms or lasts a long time may be a sign of a condition that needs treatment. ? Take jmdt-fgo-owjtcma and prescription medicines only as told by your health care provider. ? Always cover your mouth when you cough. ? Contact a health care provider if you have new symptoms or a cough that does not get better after 2?3 weeks or gets worse. This information is not intended to replace advice given to you by your health care provider. Make sure you discuss any questions you have with your health care provider. Document Released: 12/01/2011 Document Revised: 06/23/2019 Document Reviewed: 06/23/2019 Elsevier Patient Education ? 2019 [employer]. Normal [facility] ED Patient Summaryon 022 ED Patient Summary (Inserted Image. Claudia ble to display) [place] [id number] Patient Discharge Instructions Person Information Name: CHRISTIANO ZHENG Age: 26 Years Arrival Date: 05/14/2022 19:32:44 Discharge Diagnosis: Upper respiratory infection Primary Care Physician: Lelia Franklin NP Provider Information Primary Provider: Jose Taylor DO Advanced Undertaker Helper:Bandar Pope PA-C The exam and treatment you received in the Emergency Department were for an urgent problem and are not intended as complete care. It is important that you follow up with a doctor, nurse practitioner, or physician?s mechanic's assistant for ongoing care. If your symptoms become worse or you do not improve as expected and you are unable to reach your usual health care provider, you should return to the Emergency Department. We are available 24 hours a day. CHRISTIANO ZHENG has been given the following list of patient education materials, prescriptions and follow-up instructions: Follow-up Instructions: With: Address: When: Lelia Franklin [address] [place], [place] [phone] Business (1) In 3 days 05/17/2022 In the event that this physician does not participate in your insurance network, please consult with your insurance company to find a nearby participating provider. Patient Education Materials: Cough, Adult A MESSAGE TO ALL PATIENTS REGARDING OPIOIDS PRESCRIPTION OPIOIDS: WHAT YOU NEED TO KNOW Prescription opioids can be used to help relieve hvwfxygz-sn-rbiqfh pain and are often prescribed following a surgery or injury, or for certain health conditions. These medications can be an important part of the treatment but also come with serious risks. It is important to work with your healthcare provider to make sure you are getting the safest, most effective care. WHAT ARE THE RISKS AND SIDE EFFECTS OF OPIOID USE? Prescription opioids carry serious risks of addiction and overdose, especially with prolonged use. An opioid overdose, often marked by slowed breathing, can cause sudden . The use of prescription opioids can have a number of side effects as well, even when taken as directed: ? Tolerance?meaning you might need to take more of the medication for the same pain relief ? Physical dependence?meaning you have symptoms of withdrawal when a medication is stopped ? Increased sensitivity to pain ? Constipation ? Nausea, vomiting, and dry mouth ? Sleepiness and dizziness ? Confusion ? Depression ? Low levels of testosterone that can result in lower sex drive, energy, and strength ? Itching and sweating RISKS ARE GREATER WITH: ? History of drug misuse, substance use disorder, or overdose ? Mental health conditions (such as depression or anxiety) ? Sleep apnea ? Older age (65 years and older) ? Avoid alcohol while taking prescription opioids. Also, unless specifically advised by your health care provider, medications to avoid include: ? Benzodiazepines (such as Xanax or Valium) ? Muscle relaxants (such as Soma or Flexeril) ? Hypnotics (such as Ambien or Lunesta) ? Other prescription opioids KNOW YOUR OPTIONS Talk to your health care provider about ways to manage your pain that don?t involve prescription opioids. Some of these options may actually work better and have fewer risks and side effects. Options may include: ? Pain relievers such as acetaminophen, ibuprofen, and naproxen ? Some medication that are also used for depression or seizures ? Physical therapy and exercise ? Cognitive behavioral therapy, a psychological, goal-directed approach, in which patients learn how to modify physical, behavioral, and emotional triggers of pain and stress. IF YOU ARE PRESCRIBED OPIOIDS FOR PAIN: ? Never take opioids in greater amounts or more often than prescribed. ? Follow up with your primary health care provider. o Work together to create a plan on how to manage your pain. o Talk about ways to help manage your pain that don?t involve prescription opioids. o Talk about any and all concerns and side effects. ? Help prevent misuse and abuse o Never sell or share prescription opioids. o Never use another person?s prescription opioids. ? Store prescription opioids in a secure place and out of reach of others (this may include visitors, children, friends, and family). ? Safely dispose of unused prescription opioids: Find your community drug take-back program or your pharmacy mail-back program, or flush them down the toilet, following guidance from the Food and Drug Administration (www.fda.gov/Drugs/Resou rcesForYou). ? Visit www.cdc.gov/drugoverdose to learn about the risks of opioids abuse and overdose. ? If you believe you may be struggling with addiction, tell your health acute care surgeon and ask for guidance or call [facility] National Helpline at 1-859-418-OWQQ. x Source: [place] Department (more content not included)... Normal [facility] Influenza A&B Agon 2 Influenzae A Ag Negative Normal Negative [facility] Comment on above: Performed By: #### 1 [id number], [id number] ####[facility] [address] [place] [address] Influenzae B Ag Negative Normal Negative [facility] Comment on above: Result Comment: Test sensitivity and specificity vary for age group, specimen type, antigen types, and prevalence of disease. Test results must be evaluated in conjunction with other clinical data available to the physician. Individuals who received nasally administered Influenza A vaccine may have positive test results up to 3 days after vaccination. Performed By: #### 1 [id number], [id number] ####[facility] [address] [place] [address] Insurance Correspondence Off iceon 05-15-2022 Insurance Correspondence Office [id number] :127 Normal [facility] Physician Orderon 05-15-2022 Physician Order [id number] D:127 Normal [facility] Rapid COVID Antigen ([facility])on 05-15-2022 Rapid COV Int NEG Ctl Pass Normal [facility] Comment on above: Performed By: #### 1 [id number], [id number] ####[facility] [address] [place] [address] Rapid COV Int POS Ctl Pass Normal [facility] Comment on above: Performed By: #### 1 [id number], [id number] ####[facility] [address] [facility] [place] [address] SARS-CoV+SARS-CoV-2 (COVID-19) Ag IA.rapid Ql (Resp) Not detected Normal Not Detected [facility] Comment on above: Result Comment: The [employer] System for Rapid Detection of SARS-CoV-2 is a chromatographic digital immunoassay intended for the direct and qualitative detection of SARS-CoV-2 nucleocapsid antigens in nasal swabs from individuals who are suspected of COVID-19 by their healthcare provider within the first five days of the onset of symptoms. Negative results should be treated as presumptive, do not rule out SARS-CoV-2 infection and should not be used as the sole basis for treatment or patient management decisions, including infection control decisions. Negative results should be considered in the context of a patient?s recent exposures, history and the presence of clinical signs and symptoms consistent with COVID-19, and confirmed with a molecular assay, if necessary, for patient management. For in vitro diagnostic use. In the [place], only for use under an Emergency Use Authorization. In the [place], this test has not been FDA cleared or approved; this test has been authorized by FDA under an EUA for use by authorized laboratories; use by laboratories certified under the CLIA, 42 U.S.C. ?263a, that meet requirements to perform moderate, high, or waived complexity tests and at the Point of Care (POC), i.e., in patient care settings operating under a CLIA Certificate of Waiver, Certificate of Compliance, or Certificate of Accreditation. This test has been authorized only for the detection of proteins from SARS-CoV-2, not for any other viruses or pathogens; and, in the [place], this test is only authorized for the duration of the declaration that circumstances exist justifying the authorization of emergency use of in vitro diagnostics for detection and/or diagnosis of the virus that causes COVID-19 under Section 564(b)(1) of the Act, 21 U.S.C. ? 360bbb-3(b)(1), unless the authorization is terminated or revoked sooner. Performed By: #### 1 [id number], [id number] ####[facility] [address] [place] [address] XR Chest 2 Viewson 2 XR Chest 2 Views Exam Date/Time: 05/14/2022 19:54 EST Reason for Exam: Cough Report IMPRESSION: NO RADIOGRAPHIC EVIDENCE OF ACTIVE DISEASE IN THE CHEST. CLINICAL INFORMATION: Cough congestion and weakness COMPARISON: 11/13/2019 FINDINGS: PA and lateral views of the chest were obtained. Heart and mediastinum appear normal. The lungs appear clear. Visualized bony thorax and remainder of the chest appears unremarkable. There are embolization coils in the left upper abdomen. FINAL REPORT Dictated: 05/15/2022 7:33 am Bhavin Saucedo M.D. Signed (Electronic Signature): 05/15/2022 7:33 am Signed by: Bhavin Saucedo M.D. Transcribed by: MARY Technologist: ANASTASIIA Normal [facility] Consent for Treatmenton 04-19 Consent for Treatment [id number]: 127 Normal [facility] MICRO OTHER TESTSOrdered By: Rojas Yen on 05-14-2022 Influenzae A Ag Negative (05/14/22 9:30 PM) Normal Negative [facility] Influenzae B Ag Negative (05/14/22 9:30 PM) Normal Negative [facility] Rapid COV Int NEG Ctl Pass (05/14/22 9:30 PM) Normal [facility] Rapid COV Int POS Ctl Pass (05/14/22 9:30 PM) Normal [facility] SARS-CoV+SARS-CoV-2 (COVID-19) Ag IA.rapid Ql (Resp) Not Detected (05/14/22 9:30 PM) Normal Not Detected [facility] Rapid COVID Antigen ([facility])on 05-14-2022 ADMITTED TO INTENSIVE CARE UNIT FOR CONDITION OF INTEREST:FIND:PT: NO Normal [facility] Comment on above: Performed By: #### 1 [id number], [id number] ####[facility] [address] [place] [address] EMPLOYED IN A HEALTHCARE SETTING:FIND:PT: NO Normal [facility] Comment on above: Performed By: #### 1 [id number], [id number] ####[facility] [address] [place] [address] FIRST TEST FOR CONDITION OF INTEREST:FIND:PT: Unknown Normal [facility] Comment on above: Performed By: #### 1 [id number], [id number] ####[facility] [address] [place] [address] HAS SYMPTOMS RELATED TO CONDITION OF INTEREST:FIND:PT: YES Normal [facility] Comment on above: Performed By: #### 1 [id number], [id number] ####[place] [address] [place] [address] HOSPITALIZED FOR CONDITION OF INTEREST:FIND:PT: NO Normal [facility] Comment on above: Performed By: #### 1 [id number], [id number] ####[facility] [address] [place] [address] STATUS:FIND:PT: NO Normal [facility] Comment on above: Performed By: #### 1 [id number], [id number] ####[facility] [address] [place] [address] [facility]:FIND:PT: NO Normal [facility] Comment on above: Performed By: #### 1 [id number], [id number] ####[facility] [address] [place] [address] Ambulatory Visit Summaryon 1 07-12-2021 Ambulatory Visit Summary CHRISTIANO ZHENG :1995 Visit Date:05/12/2022 Ambulatory Visit Instructions Your Diagnosis Acute URI Gastroenteritis Your Care Team Attending Physician - Apolonia OZUNA, Angela Hook Primary Care Physician - Rigoberto CHURCH, Lelia Palmer This Is Your Medications List brompheniramine/dextrome thorphan/PSE (Bromfed DM oral syrup) Contact prescribing physician if questions or concerns cyclobenzaprine (cyclobenzaprine 10 mg Tab) escitalopram (Lexapro 20 mg Tab) hydrOXYzine (Vistaril 25 mg Cap) Procedures Performed Cholecystectomy, Hernia repair, Splenectomy. Discharge Vitals Temperature (Oral) 36.8 ?C Heart Rate (Peripheral) 99 Blood Pressure 110/74 Height 178 cm Height 70 in Weight 78.6 kg Weight 172.92 lb BMI 24.81 What to do next Scheduled Follow-Up Appointments Sunday 2:45 PM EST With: Jenifer BOGGS, Sen Dodson Where: [facility] You Need to Schedule the Following Appointments Follow Up with Rigoberto CHURCH, MAXWELL Parkinson When: Where: [address] [place] [phone] Medications What How Much When Why Instructions New brompheniramine/ dextromethorphan/ PSE (Bromfed DM oral syrup) 10 Milliliter By Mouth Every 6 hours as needed for for cold symptoms Acute URI Duration: 7 Days Pickup at [id number] Unchanged cyclobenzaprine (cyclobenzaprine 10 mg Tab) 1 Tablets By Mouth 3 times a day as needed for for spasm Cervical radiculopathy Muscle spasms of neck Contact prescribing physician if questions or concerns Unchanged escitalopram (Lexapro 20 mg Tab) 1 Tablets By Mouth Every day Anxiety Contact prescribing physician if questions or concerns Unchanged hydrOXYzine (Vistaril 25 mg Cap) 1 Capsules By Mouth 3 times a day as needed for for anxiety Anxiety Contact prescribing physician if questions or concerns Pharmacy Information [facility]/pharmacy #[id number]: [address] [place], [place] [id number] [phone] Allergies Dilaudid (Hives) morphine (anaphylaxis) oxyCODONE (Nausea) Problems Ongoing - Any problem that you are currently receiving treatment for. Anxiety BMI 23.0-23.9, adult Cervical radiculopathy Cervical spondylosis Constipation Difficulty swallowing Enlarged tonsils Family history unknown Former smoker Hearing deficit Hemolytic anemia Hereditary spherocytosis History of neck pain Hospital discharge follow-up Insomnia Lower back pain Medial epicondylitis Muscle spasms of neck Non-smoker PTSD (post-traumatic stress disorder) Screening for cardiovascular condition Splenomegaly Stomal ulcer Testicle lump Historical - Any problem that you are no longer receiving treatment for. Cholelithiasis Sleep apnea Education Materials Viral Gastroenteritis, Adult Viral gastroenteritis is also known as the stomach flu. This condition may affect your stomach, small intestine, and large intestine. It can cause sudden watery diarrhea, fever, and vomiting. This condition is caused by many different viruses. These viruses can be passed from person to person very easily (are contagious). Diarrhea and vomiting can make you feel weak and cause you to become dehydrated. You may not be able to keep fluids down. Dehydration can make you tired and thirsty, cause you to have a dry mouth, and decrease how often you urinate. It is important to replace the fluids that you lose from diarrhea and vomiting. What are the causes? Gastroenteritis is caused by many viruses, including rotavirus and norovirus. Norovirus is the most common cause in adults. You can get sick after being exposed to the viruses from other people. You can also get sick by: ? Eating food, drinking water, or touching a surface contaminated with one of these viruses. ? Sharing utensils or other personal items with an infected person. What increases the risk? You are more likely to develop this condition if you: ? Have a weak body defense system (immune system). ? Live with one or more children who are younger than 2 years old. ? Live in a alf. ? Travel on cruise ships. What are the signs or symptoms? Symptoms of this condition start suddenly 1?3 days after exposure to a virus. Symptoms may last for a few days or for as long as a week. Common symptoms include watery diarrhea and vomiting. Other symptoms include: ? Fever. ? Headache. ? Fatigue. ? Pain in the abdomen. ? Chills. ? Weakness. ? Nausea. ? Muscle aches. ? Loss of appetite. How is this diagnosed? This condition is diagnosed with a medical history and physical exam. You may also have a stool test to check for viruses or other infections. How is this treated? This condition typically goes away on its own. The focus of treatment is to prevent dehydration and restore lost fluids (rehydration). This condition may be treated with: ? An oral rehydration solution (ORS) to replace imp (more content not included)... Normal [facility] Family Medicine Office/Clini c Noteon 05-12-2022 Family Medicine Office/Clinic Note Chief Complaint Est chest congestion HPI Staff Christiano is a 26 year old male presenting for cough, congestion, nausea Symptoms started- A few weeks now Headache- Yes Body aches- Mild Earache- No Runny/stuffy nose- Yes Problem with Smell- no Problem with Taste- no Sore throat- Mild Cough- yes, dry Scratchy tickly throat- No Chest symptoms- Congestion WHITING- No Orthopnea- No Lung Hx asthma, bronchitis, chest colds- No Fever/chills- Chills, 99 GI symptoms- mild nausea COVID exposure-no History of Present Illness I have reviewed and verified the staff HPI to be accurate for this encounter. 26-year-old male presenting in office today for cough, congestion, and nausea and diarrhea, pt stated the stool is solid and soft and will become liquid later in the day. Pt stated he has 4-6 BMs a day. Pt stated he does have his gallbladder removed. Pt stated he has had diarrhea for the past couple weeks. Pt stated the cough and congestion started about 2 days ago. Patient stated he has had symptoms Patient has headache, mild body aches, runny and stuffy nose, mild sore throat, and dry cough. Patient stated he does have congestion. Patient denies earache, problems with taste and smell, chest pain, SOB, WHITING, and orthopnea. Patient denies any history of asthma, bronchitis, and chest colds. Patient denies any vomiting. Patient stated he does have chills and a fever of 99 ?F. Pt stated he has been taking Day Quil and NyQuil. Patient stated he will follow-up with his PCP for diarrhea and nausea if they continue. Review of Systems PHQ Score Initial Depression Screen Score: 0 Physical Exam Vitals & Measurements T: 36.8 ?C(Oral) HR: 99(Peripheral) BP: 110/74 SpO2: 97% HT: 70 in HT: 178 cm WT: 78.6 kg WT: 172.92 lb BMI: 24.81 General: alert and oriented, well nourished, no acute distress Eyes: normal sclera and conjunctivae Face: normal, symmetrical HEENT: Head: normocephalic, atraumatic, Ears: TMs intact and non-erythematous, Nose: congestion, turbinates swollen, no sinus tenderness, Throat: pharynx with mild erythema, no palatal inflammation or petechiae, no exudate on tonsils, tonsils normal (1+), uvula midline Neck: Supple. No adenopathy noted. Heart: regular rate and rhythm Chest: normal shape and expansion Lungs: clear to auscultation, no wheezing/rhonchi/rales, good air movement Respiratory: respirations even and unlabored, able to speak in full sentences and take deep breaths without difficulty, no gasping or shortness of breath noted, no use of accessory muscles noted Neuro: speech clear and coherent Abdomen: soft, non-tender, no guarding or grimacing, bowel sounds normal, no suprapubic tenderness Back: no CVA tenderness Skin: visible skin warm, dry, good skin turgor Extremities: no cyanosis, cap refill brisk Assessment/Plan 1. Acute URI (J06.9: Acute upper respiratory infection, unspecified) Discussed exam and hx are consistent with viral illness. Advised of typical duration. Discussed antibiotics unfortunately do not treat viral illnesses, it will take time to run course- usually 7-14 days. Fluids/rest encouraged, PRN tylenol/ibuprofen for any pain. May use Bromfed for symptomatic tx. Follow up with PCP if not improving over next 5-7 days or significantly worsening symptoms. Patient verbalized understanding of tx plan. Ordered: brompheniramine/dextrome thorphan/PSE, 10 mL, Oral, q6hr for cold symptoms for 7 day(s), 280 mL, Refill(s) 0, [facility]/pharmacy #[id number], 178, cm, 05/12/22 11:45:00 EST, Height/Length Dosing, 78.6, kg, 05/12/22 11:45:00 EST, Weight Dosing 2. Gastroenteritis (K52.9: Noninfective gastroenteritis and colitis, unspecified) Exam and history consistent with viral gastroenteritis. Patient to start brat diet. Increase fluids and rest. Follow-up with PCP if symptoms persist past 7 days. Seek medical attention immediately for any concerns of severe dehydration, severe abdominal pain, decreased urination. Patient verbalized understanding of treatment plan. Follow-up With When Contact Information Rigoberto CHURCH, Lelia Palmer, [facility] [address] [place] [address] [phone] Additional Instructions: Patient Education Viral Gastroenteritis, Adult Upper Respiratory Infection, Adult Problem List/Past Medical History Ongoing Anxiety BMI 23.0-23.9, adult Cervical radiculopathy Cervical spondylosis Constipation Difficulty swallowing Enlarged tonsils Family history unknown Former smoker Hearing deficit Hemolytic anemia Hereditary spherocytosis History of neck pain Hospital discharge follow-up Insomnia Lower back pain Medial epicondylitis Muscle spasms of neck Non-smoker PTSD (post-traumatic stress disorder) Screening for cardiovascular condition Splenomegaly Stomal ulcer Testicle lump Historical Cholelithiasis Sleep apnea Procedure/Surgical History Cholecystectomy, Hernia repair, Splenectomy. Medications Bromfed DM oral syrup, 10 mL, Oral, q6hr, PRN (more content not included)... Normal [facility] Comment on above: Result Comment: Elec tronically Signed By: Angela Pradhan.[email or web address]\Date and Time Signed: 05/12/22 12:04 EST Patient Educationon 05-12-20 Patient Education Gastroenterology Viral Gastroenteritis, Adult Viral gastroenteritis is also known as the stomach flu. This condition may affect your stomach, small intestine, and large intestine. It can cause sudden watery diarrhea, fever, and vomiting. This condition is caused by many different viruses. These viruses can be passed from person to person very easily (are contagious). Diarrhea and vomiting can make you feel weak and cause you to become dehydrated. You may not be able to keep fluids down. Dehydration can make you tired and thirsty, cause you to have a dry mouth, and decrease how often you urinate. It is important to replace the fluids that you lose from diarrhea and vomiting. What are the causes? Gastroenteritis is caused by many viruses, including rotavirus and norovirus. Norovirus is the most common cause in adults. You can get sick after being exposed to the viruses from other people. You can also get sick by: ? Eating food, drinking water, or touching a surface contaminated with one of these viruses. ? Sharing utensils or other personal items with an infected person. What increases the risk? You are more likely to develop this condition if you: ? Have a weak body defense system (immune system). ? Live with one or more children who are younger than 2 years old. ? Live in a alf. ? Travel on cruise ships. What are the signs or symptoms? Symptoms of this condition start suddenly 1?3 days after exposure to a virus. Symptoms may last for a few days or for as long as a week. Common symptoms include watery diarrhea and vomiting. Other symptoms include: ? Fever. ? Headache. ? Fatigue. ? Pain in the abdomen. ? Chills. ? Weakness. ? Nausea. ? Muscle aches. ? Loss of appetite. How is this diagnosed? This condition is diagnosed with a medical history and physical exam. You may also have a stool test to check for viruses or other infections. How is this treated? This condition typically goes away on its own. The focus of treatment is to prevent dehydration and restore lost fluids (rehydration). This condition may be treated with: ? An oral rehydration solution (ORS) to replace important salts and minerals (electrolytes) in your body. Take this if told by your health care provider. This is a drink that is sold at pharmacies and retail stores. ? Medicines to help with your symptoms. ? Probiotic supplements to reduce symptoms of diarrhea. ? Fluids given through an IV, if dehydration is severe. Older adults and people with other diseases or a weak immune system are at higher risk for dehydration. Follow these instructions at home: Eating and drinking ? Take an ORS as told by your health care provider. ? Drink clear fluids in small amounts as you are able. Clear fluids include: ? Water. ? Ice chips. ? Diluted fruit juice. ? Low-calorie sports drinks. ? Drink enough fluid to keep your urine pale yellow. ? Eat small amounts of healthy foods every 3?4 hours as you are able. This may include whole grains, fruits, vegetables, lean meats, and yogurt. ? Avoid fluids that contain a lot of sugar or caffeine, such as energy drinks, sports drinks, and soda. ? Avoid spicy or fatty foods. ? Avoid alcohol. General instructions ? Wash your hands often, especially after having diarrhea or vomiting. If soap and water are not available, use hand grand scribe. ? Make sure that all people in your household wash their hands well and often. ? Take gdma-tlb-pmjhzio and prescription medicines only as told by your health care provider. ? Rest at home while you recover. ? Watch your condition for any changes. ? Take a warm bath to relieve any burning or pain from frequent diarrhea episodes. ? Keep all follow-up visits as told by your health care provider. This is important. Contact a health care provider if you: ? Cannot keep fluids down. ? Have symptoms that get worse. ? Have new symptoms. ? Feel light-headed or dizzy. ? Have muscle cramps. Get help right away if you: ? Have chest pain. ? Feel extremely weak or you faint. ? See blood in your vomit. ? Have vomit that looks like coffee grounds. ? Have bloody or black stools or stools that look like tar. ? Have a severe headache, a stiff neck, or both. ? Have a rash. ? Have severe pain, cramping, or bloating in your abdomen. ? Have trouble breathing or you are breathing very quickly. ? Have a fast heartbeat. ? Have skin that feels cold and clammy. ? Feel confused. ? Have pain when you urinate. ? Have signs of dehydration, such as: ? Dark urine, very little urine, or no urine. ? Cracked lips. ? Dry mouth. ? Sunken eyes. ? Sleepiness. ? Weakness. Summary ? Viral gastroenteritis is also known as the stomach flu. It can cause sudden watery diarrhea, fever, and vomiting. ? This condition can be passed from person to person (more content not included)... Normal [facility] Coding Summary.on 05-10-2022 Coding Summary. CD:[id number] Gh0b Ww+PGhlYWQ+BP7XVCUsR15si TRwnO6UB9iUFP7LJMNGYYBDU U8XUU0tlBU6IHawT9LhosZx SvlrjQWfLI38LXj8KNO8zPlc BWgzfV9gbYOdP9f3FtVdGZ01 pK41RTmrSMSwIbD4NbPjvplx bWFy F1wlKdAkoEEiSnp+PHRhYmxl IHdpZHRoPScxMDAlJyBzdHls ET8tFy2jBGGvYZSoqIetgEGn OiBj x7okWDCfVRtmFO4bgPwgY2Zj fNP4ALSzw4d9In10kOD+PHRk TWB6zKihMPyrw169SzDsa2yr IDM3 tIDjDQolKIM9I93po6L5UWCe PGFoUCV2sIK9yK3jwTxmrdin D2CtmUEgEpK3QYO7mGVnoM3f bGln jhaxtG5rXxn+C04WFG6STDTU GT9XPgx9G2FpCkyjeMG+PC90 KEMcSQ39kDJmpGRvv2iwyOa5 JzEw LDYuIBY6eObdUWust0XbOAMv A74qoNCnt1C3SUFefWukcGTt UfLycIL0pA1fNPsofxyns8si dzsn Ybfnf7uhmp86hQ43F39iYKmn ZEYkPNH9ZSJfFFTtpRmiuz2u eS1gRa6+XZliq1oyq3lavGk9 IjIw FGEefnEglMgwXUO5n8UmDl05 N3GlpFtzn9WhUtk5nz50dCCi k5T1vIM0ZNkkRDEcvV7uKFzb ZnQ6 GMXpQwGvaP38oPLtBSzaYj1t xYxacOkpBK0bORDmbpawDLLv kH5bFSKooUPndUjyZW2yQGSb bjtm c847GlIqXEW4ONGskIEeB9Fq mT2kEuUiYYFsCETxV8QvtXVg JCwoS469RXodUhW1LZZvkrRd Y2Fs MEHimIsqUpL2w2A0Gp3Hh6Or kmxnKOT8BDvnRETtAqSzJeBd JtT4C7WqNda7SMNnqKrvSR9e J3Bh VZRgkrawgycfoRJ8XDNnDDWb qD70oRYiKTlaTc5uo8D2y393 CLWcNKZpyT04Qk4ssJrzHLYj dCBU yP1jnfbbo2dhovenIgFhWBHx LTe8KKc2UHKpbFgbGeWqTVO5 JtY6FPE8nRGekB2wiKstbjtq dG9w Oyc+N30qwZ4wGUO5VVV1ivjp OQXvgrOwBG33ZG94U3TqAyek dGFibGU+UOPernMfrNmcDZ5m YmFj q9qgz4VdIUalB0KjMERcCIpq Jai8HJPhINU1qRH6lE2vLANi FEtda9M5nUM9F1VzekKjxh1q b2xs TUJjQMnbD77hoJGop9X9MVBk yTJ7XVEqiZdhBjMyuD91Llx+ VMMfgEzgw8DqZqoke1dlx7jz dGg9 WkRsDBNbqdOcsZyzGZO0q8Gr Sd83M29bGJbzCJQgMJJlOTHc ZALteNdhkw8grR8fNl1+PGNv bCB3 lJZ5kB6hZWDkJzR6ONstD433 IgJemSUtVbvov2mqq9hrxHo2 NzPhRMItksMebEtvJVM0k9Zz Lz48 G68sJVoxVWLrUINeYAOoGLNm vAfiwx8ryC7hFq9+MX2dx6hl ev27rO16cBB+BVThNPV7wEde PSdw TZBhcA0nAUuwFwK2SEFzSaXu gX70lLNkMVmtRt3jlIhdyGth CL1rWLRqomyvd324ZwHxf0ov IDEw pMYrTTvqGLD6J75qk7G2OUHt VXEwKFQ3cNL2oY6mtKipujjr bGVmdDsgdmVydGljYWwtYWxp Z246 IHRvcDsnPlBhdGllbnQgTmFt SRg7T9SvHzz8EQAqtPhgAR9p tRIlJUlmWr8rcFhoaDggQN6q NTBp wnhjl995ZrWtb6iaCTXnxFQv LZoyQHH9X74dz4G6UREzMXMu YXI6gIN2nQ7ywIwntnebvZQi dDsg wtLcnUdaBWwkBPheQ616NHRp gGvoTvHayxUgPVDniUT4QD04 OE29aZQqk5B3nNH7P2OgFNLq bmct gytdoSL4DPHvITIfwA84Bc2w jUvhDe1oQNGkLOS2MHBifOZn O7GbvN7wCcKoECJeKGTaH2Lu eHQt ZWzqX483VMryJlD8QOTvlbUt L8LpJJOiuTavRqS8x1U7Ve2K Z4I6QG68EI27cQGxm0N9aAS4 J3Bh JTCsdluczvcpeNN2DPFgJQMl iD57Wc1fsEsiHf9jRHKqCVX9 OPFckAViD2EmsG0rFcNzGAQf MDAw D8TjuRSqUJeqX693KFniOyN8 PRBpcfCyZ9MyNRNboKryJmR7 i6K1Cy6WBRu1QL65KG68gAUz c3R5 pSM8H8WfPBTbzwqzorutkYM9 UNSxRXHhsW62Uf3opXqgYm8t HSFxBNN4JDQldZZhW9JclG0o OiAj MGRsXOQdF4AcxYZhPLheX914 OMerBiS7GOYugiEcA1MnIVUj wItdHvY7r4R0Yf3ZCNCoZB06 IFR5 cZD3OB55SZ89W6UnRyycgVHo bGU+PHRhYmxlIHdpZHRoPScx TXSuZkXxqGxtTD4pPj0kJOQl LWNv iKzwsNQvNaEhy1pbLXLlCGkp KC7uoJzpC0VttWM1CUHbd6j7 Lc30K87aF3JwnDZ+PGNvbCB3 aWR0 vO5uBhQqSwH9AIcuV118EqMm tKYbGkygj7odr7simCu9UdV6 GYXqsmPynZspHCI9e6MrUw21 Y29s IHdpZHRoPSIxNSUiIHZhbGln gd8oeF4uUv8+FRAvpPP7mAD3 aA0nRjScFaV0TSbdH356XsDl cCIv Bqofp2shp2lpdCt1JiHrDQOo ofWwlFocXHE6b9QlBz36B7Kj lPwqb2SdKsh6ba50oMXjy4M1 bGU9 D1QxXXJellxqkPQgiArlXJ5q AFBokimpAAMsfU2fAKSpA8b4 EaNbNkU1ETlhZ0DiweA1ZWEs cHQg FZdyLKV3Y40vm2R9MWKaVJBl IEQ8kDM7jD7hgSatmrzxwMRh wSskjsYtiZtqOFwaWXltL421 IHRv iIbdBWQuvA0wOGIytNKrqVsc MT2mBQJqugtcScaJMhxbMWiB QrIEPI78PP47hYAez3T5hGB8 J3Bh MMMdroichksnlJD2PXLdNZSo wU10rOPwFKfeRr5wq9H2b807 VKVvJDJhzZ50Uj0gcMuuSIOt dCBU sZ6gvocsl6aswxjhKgRfMRDl MDq9PEi8DSXqsVuvIlVbUBD0 AwN2CBR1tUYopL2nfScbgbpt dG9w Oyc+FPTyQcGkNUq9PNuriZG+ TCNsDGR7jCmjRCskMHRcbG9x JNOwI1c8SrTkAqU9ZXbnS7Ny ZGRp adljYb58rL4sMkZsSnA0OMcx N3SqqjC7BKQbkHGrCHolOMS4 S16mq8D5IHFdMDNcGWE7nIN4 dC1h bGlnbjogbGVmdDsgdmVydGlj AWtvYRfcI498PZJfmOxrCsM2 LCfxZZHeSD93KZ12wNCcc0O7 bGU9 D0YiUBMcfiiyaekygAQ3UCKs NHXboI17yMHnWEofNt5vq0Z0 h451RRCpBQFkgU77Ey3ghMxp MTBw hRSAgB1kvocgr6jcrlpdRwYf VCTzORi1LWb3OLMamQzsRdMz NXL2QoC0SMY3hVPtqP3irSmu bjog qX9xJgv+TWFsZTwvdGQ+PHRk UHQ1cCilALvmLATpxE0hHAAk X2x9SbPvTsZ3GGdaC9TwRZUc bmct Hz67uF7aRiFdLoY9EYlpV1Gp iwL5GSYxgVAvHTxdKEE8X29v c5W9GBKsVSCxCWB0qCP9mN5h bGln bjogbGVmdDsgdmVydGljYWwt AAoqW469TKQtaNttAyFcsX4p TWFuYWdlbWVudDwvdGQ+PC90 cj48 S5VnSwnkGog8NAKcPYD1aZN6 rT6pDVNpKFdrq3V0hRK0S1Xk lgKxwz4ef4kkDMSzJGiyG07d bGFw f4T6PUKzpTD1WEYmzQmhXtTn iV31Wql+GKVnaVxal6LzIrzo c6qnq4ogaWx0UrLdWWZuhsBx aWdu XTG2l3VeSc83C78yUIqjPJEh QNMkUTUaCRWzmWlewq4faM6e Ii8+FLCjmAA7sNB2xG6hIyDt IiB2 WKmcN926DtUpqZZxVujvj9sb x8ncyPo6LpIdHMRobkCdpUsk DDF9b1NwEb88I5DlzWwqj0Pz Pjx0 ty34sEOtv2M2fVK1D5GfJOWu srbizEXvvLqdHT7pHUDifwks LBKjwG5cPYZlO2b5YaBmUiW9 MGlu F6ZvheD3NOXmcYQzGQTgnNSE nY7scfire4srnoluDqDoJJOm NOc7PWa9BNRxgXpcWaYzDNO6 OyB2 ZMH6yFHguA9gaKvepcabzV4f Oyc+CMs0i0jndZBiNZ1pgNA7 LS40FI05oRFgv6B0tGT2O6No ZGRp luohfxkpiUP9ELUzPKShdS59 Yp0yyBdwBw7dMCDjTQA2VLSi oCHdR9KupD7tHhFsWLDbSBTh O3Rl uQBeXLrwL121XIxeKcU5QDIi psUxV0DgTNYyhCtqVtI4k9G9 Xy3DFU11NR88FM31rOOjq2K9 bGU9 D5IkCDNqctnumlpwuIF3AFIs IGQrkR37Gv6itQeaBj8gKOCf ILZ3DQIwwZFdN4MrlI4oPoOh MDAw AIHuA8MwsFIrERtwE322DYom SaP7RCOzmwEvN5CeLCPolTkn BlJ3c9O6He5OSn75JY17WP70 dGQg k5O6tSM6E2ZnCLKhcxpqdnhj cKA3HAPpPFBozT29No1eiQtj Qf1dCYAmDNV2IHGhbECtV5Nm bG9y FmToXNKlBKSuZ9WarZZnKMer C370RGzfNgZ7MXKbejEaR1Sy ARXcjFukYcE6c5D9Uf9NKZwr cjo8 O7UmJmsovMB+TY15MHMmKF88 zGZvvZUmx6tlpKu7YcRnYDSw TXN2eVurUKtsj6PaFNMoL47q bGFw c2U6 (more content not included)... Normal [facility] Consent for Treatmenton 04-19 Consent for Treatment [id number]#1.00CD: 127 Normal [facility] Consultation Noteon 05-08-20 Consultation Note Patient: CHRISTIANO ZHENG Age: 26 years Sex: Male : 1995 Associated Diagnoses: None Author: Jenifer BOGGS, Sen Dodson Basic Information Accompanied by: No one. Source of history: Self. Referral source: Rigoberto CHURCH, Lelia Ruiz History limitation: None. Chief Complaint 05/08/2022 14:16 EST Neck pain for several years History of Present Illness 26-year-old gentleman with chief complaint of right-sided neck pain that radiates into the right medial scapular border and associated numbness and tingling into the right hand. He has had this pain for the past several years and has worsened over the past year or so. Patient attributes to being in the [employer] and regular wear and tear to the neck region as he inciting injury or trauma. Turning his head exacerbates the pain. Use of the right arm can exacerbate it as well. Pain ranges anywhere from a 3 to an 8 out of 10 on the visual analog scale. Denies red flag symptoms. Patient has undergone a full course of physical therapy here at [facility] within the past 6 months without lasting benefit. He has used high-dose ibuprofen for over 6 months regularly with minimal relief. Other treatments have included muscle relaxants to take a slight edge off the pain such as cyclobenzaprine. The patient was referred here to discuss his further treatment options. Review of Systems Complete review of systems obtained and reviewed. Form scanned. Pertinent findings are noted in the HPI. Health Status Allergies: Allergic Reactions (All) Moderate Dilaudid- Hives. Severity Not Documented Morphine- Anaphylaxis. OxyCODONE- Nausea. Current medications: Home Medications (3) Active cyclobenzaprine 10 mg Tab 10 mg = 1 tab(s), PRN, Oral, TID Lexapro 20 mg Tab 20 mg = 1 tab(s), Oral, Daily Vistaril 25 mg Cap 25 mg = 1 cap(s), PRN, Oral, TID Problem list: All Problems (Selected) Anxiety / SNOMED CT 34881155 / Confirmed BMI 23.0-23.9, adult / SNOMED CT 6093653951 / Confirmed Cervical radiculopathy / SNOMED CT 486062173 / Confirmed Cervical spondylosis / SNOMED CT 7037867639 / Confirmed Constipation / SNOMED CT 03652001 / Confirmed after GB removed Difficulty swallowing / SNOMED CT 15917751 / Confirmed Enlarged tonsils / SNOMED CT 710314276 / Confirmed Family history unknown / SNOMED CT 9694391346 / Confirmed Former smoker / SNOMED CT 89756496 / Confirmed Hemolytic anemia / SNOMED CT 102030938 / Confirmed Hereditary spherocytosis / SNOMED CT 44588121 / Confirmed Hospital discharge follow-up / SNOMED CT 6392218455 / Confirmed Insomnia / SNOMED CT 731052782 / Confirmed Medial epicondylitis / SNOMED CT 53691484 / Confirmed Muscle spasms of neck / SNOMED CT 4561609846 / Confirmed Non-smoker / SNOMED CT 91089569 / Confirmed PTSD (post-traumatic stress disorder) / SNOMED CT 11745136 / Confirmed Screening for cardiovascular condition / SNOMED CT 200351594 / Confirmed Splenomegaly / SNOMED CT 32468528 / Confirmed Stomal ulcer / SNOMED CT 0211694037 / Confirmed Testicle lump / SNOMED CT 914154123 / Confirmed Histories Past Medical History: Active Constipation (49836444) Comments: 11/13/2019 EDT 15:27 DIRKT Raquel Dc RN after GB removed Resolved Cholelithiasis (302222100): Resolved. Comments: 02/09/2012 EDT 1:40 Afia Dillon RN 2010 Sleep apnea (471667797): Resolved. Family History: Clotting disorder Mother Hyperthyroidism Sister Procedure history: Cholecystectomy. Comments: 02/09/2012 1:39 Afia Dillon RN 2010 Hernia repair (59514035). Splenectomy (384090989). Social History Social & Psychosocial Habits Alcohol 02/09/2012 Risk Assessment: Denies Alcohol Use 04/28/2022 Concerns about alcohol use in household: No Substance Abuse 02/09/2012 Risk Assessment: Denies Substance Abuse 04/28/2022 Concerns about substance abuse in household: No Tobacco 02/09/2012 Risk Assessment: Denies Tobacco Use 04/28/2022 Tobacco Use: Never (less than 100 in l Smokeless tobacco use: Never Concerns about tobacco use in household: No Comment: pt denies - 11/04/2021 10:15 - Markos LIVE, Nelsy Seaman Physical Examination Vital Signs (last 24 hrs) Last Charted Heart Rate Peripheral 75 bpm (MAY 08 14:16) SBP 126 mmHg (MAY 08 14:16) DBP 77 mmHg (MAY 08:16) Weight 79.8 kg (MAY 08 14:16) BMI 25.19 (MAY 08:16) Constitutional: No acute distress. Well-nourished. Well-developed. Eyes: No exudate or deformity. Extraocular muscles are intact. Ears, nose, mouth, and throat: Ears and nose are without deformity. Wears a mask. Neck: No noticeable masses, tracheal deviation, or asymmetry. No thyromegaly on inspection. Respiratory: No gasping or shortness of breath. No accessory muscle use. Cardiovascular: Pulses in extremities are palpable. No noticeable lower extremity edema or varicosities. Gastrointestinal (abdomen): No distention. No pain wi (more content not included)... Normal [facility] Comment on above: Result Comment: Elec tronically Signed By: Jenifer BOGGS, Sen Das.br\Date and Time Signed: 05/08/22 14:44 EST HIPAA Forms Officeon 022 HIPAA Forms Office [id number]#1.00CD :127 Normal [facility] Legal Correspondence Officeo n 05-08-2022 Legal Correspondence Office [id number]#1.00CD :127 Normal [facility] Legal Correspondence Office [id number]#1.00CD :127 Normal [facility] Office/Clinic Note-Physician on 05-08-2022 Office/Clinic Note-Physician [id number]#1.00CD :127 Normal [facility] Patient Correspondenceon Patient Correspondence [id number]#1.00CD :127 Normal [facility] Patient Correspondence [id number]#1.00CD :127 Normal [facility] Patient Correspondence [id number]#1.00CD :127 Normal [facility] Patient Correspondence [id number]#1.00CD :127 Normal [facility] Patient Correspondence [id number]#1.00CD :127 Normal [facility] Patient History Officeon Patient History Office [id number]#1.00CD :127 Normal [facility] Progress Noteon 06-28-2020 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 Raúl, Thank you. We will cancel the test for you. Have a nice rest of your day. Warm regards, Shelbi Arceo Staffing Administrator, [employer] [address] [place] [address], [address] [place] [address] P: Ext: 2001 F: [email or web address] Original Message From: Laura Tracy [email or web address]] Sent: 06/28/2020 11:32 AM To: [email or web address] Cc: [email or web address] Subject: RE: Order ID [id number] - Test hasn't started Yes, thank you Laura Tracy MD [place] [address] [email or web address] From: Shelbi Arceo Sent: Sunday, June 28, 2020 2:32 PM To: Laura Tracy Cc: [email or web address] Subject: Order ID [id number] - Test hasn't started This email is from an external source. Ellie, Thank you for the update. In that case, would you like to cancel the test? Warm regards, Shelbi Arceo Staffing Administrator, [employer] [address] [place] [address], [address] [place] [address] P: Ext: 2001 F: [email or web address] Original Message From: Laura Tracy [email or web address]] Sent: 06/28/2020 6:49 AM To: @[email or web address] Cc: [email or web address] Subject: RE: Order ID [id number] - Test hasn't started I have tried to reach him several times and he has not called me back. I think we can assume he is not moving forward with testing. Laura Tracy MD [place] [address] [email or web address] From: Shelbi Arceo Sent: Sunday, June 14, 2020 6:28 PM To: Laura Tracy Cc: [email or web address] Subject: RE: Order ID [id number] - Test hasn't started This email is from an external source. Ellie, Thank you for the update. We will wait for your response to see what we should do to move forward. Have a happy new year! Shelbi Arceo Staffing Administrator, [employer]. [address] [place] [address], [place] [address] P: Ext: [phone] F: [email or web address] Original Message From: Laura Tracy [[email or web address]] Sent: 06/14/2020 10:34 AM To: [email or web address] Cc: [email or web address] Subject: RE: Order ID [id number] - Test hasn't started Hello, I ve called and left him a message asking him to call back. I will let you know if/when I hear from him. Happy New Year! Laura Tracy MD [facility] [address] [place] [address] [email or web address] From: Laura Tracy Sent: Friday, June 05, 2020 9:07 AM To: Shelbi Arceo Cc: [email or web address] Subject: Re: Order ID [id number] - Test hasn't started I am out of the office until 06/14 and will look into this when I return. Thanks! Laura Tracy MD Clinical Genetics [facility] From: Shelbi Arceo Sent: Thursday, June 04, 2020 7:10 PM To: Laura Tracy Cc: [email or web address] Subject: Order ID [id number] - Test hasn't started This email is from an external source. Ellie, I hope this email finds you well. I am reaching out because we haven't been able to start the test yet because your patient hasn't paid their out of pocket cost. When I spoke with him on April 14, he wanted to pay it online so I sent a link to them. When we hadn't received the payment, I called him and he said that he received the kit and that he would pay in 2 weeks and that was on April 29. We haven't received the kit or the payment. What would you like for us to do to move forward? Any help would be appreciated. Thank you. Patient is More[place] 1995 Shelbi Colindres Staff[employer] Administrator, [employer]. 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 This visit occurred during the Coronavirus (COVID-19) Public Health Emergency. Reason for Consult/Chief Concern: Hereditary spherocytosis Primary Care Doctor: No primary care provider on file. History of Present Illness (Location, Quality, Severity, Duration, Timing, Context. Modifying Factors, Associated Signs & Symptoms): Christiano Zheng is a 24 y.o. man who presents for genetic evaluation of hereditary spherocytosis. He was recently diagnosed after presenting with an acute febrile illness and worsening anemia and massive splenomegaly on physical exam. Christiano's medical history is also notable for jaundice at and gallstones requiring a cholecystectomy at 14. He is now s/p splenectomy. His is currently and he would like to confirm his diagnosis molecularly so that future children can be tested. Past Medical History: Hereditary spherocystosis Attention deficit disorder as a child Past Surgical History: Inguinal hernia repair Cholecystectomy Splenectomy Development: Developmentally, Christiano was normal. Family History: A three generation pedigree was obtained by ETIENNE Connor at his 's genetic counseling visit. Relevant family history is significant for: Mother recently diagnosed with hereditary spherocytosis; however, she had a splenectomy at age 10 Review of Systems Constitutional: Negative Vision: Negative ENT: Negative Head and Neck: Negative Endocrine: Negative Hematology/Lymphatic: Positive for hereditary spherocytosis Respiratory: Negative Cardiovascular: Negative Gastrointestinal: Positive for stomach ulcers : Negative Skin: Negative Musculoskeletal: Negative Neuro: Negative Psychiatric: Negative Allergy/Immun: Positive for medical allergies Physical Examination General Appearance: Well-appearing; well nourished; no acute distress; nondysmorphic Impression: Christiano Zheng is a 24 y.o. man with hereditary spherocytosis. Discussion: Hereditary spherocytosis is a condition that affects red blood cells, causing them to be round like a sphere and overly rigid rather than elliptical or disk-shaped and flexible. Spherocytes (round red blood cells) are more fragile and break down more easily, leading to an increased risk of hemolytic anemia, i.e., anemia caused by the premature breakdown of red blood cells. Hereditary spherocytosis occurs in approximately 1 in every 2,000 individuals of [place] descent and is the most common hereditary anemia in this population. Characteristic features of hereditary spherocytosis include anemia, which tends to be mild to moderate in most affected individuals, jaundice, gallstones and splenomegaly. Signs of anemia may include pale skin, fatigue, a fast heart beat, shortness of breath and growth problems. The increased risk for jaundice and gallstones is related to the fact that when red blood cells break down, they release a pigmented substance referred to as bilirubin; elevated levels of bilirubin can lead to jaundice (yellowing of the whites of the eyes and skin), as well as gallstones. About half of affected individuals will develop gallstones, typically during late childhood to mid-adulthood. Spleen enlargement may also be seen due to the number of abnormal red blood cells that must be broken down and filtered by the spleen; splenomegaly may become evident anytime from button cutter to adulthood. Individuals with hereditary spherocytosis may also have low folate levels since folate is involved in the production of red blood cells. In addition, they may have an increased risk of aplastic crisis, which occurs when very few red blood cells are being produced (this usually occurs in conjunction with an infection). Treatment for hereditary spherocytosis depends on the symptoms, with some individuals never requiring any treatment. When treatments are necessary, they may include folic acid supplementation, removal of some or all of the spleen to slow the breakdown of red blood cells, removal of the gallbladder, and blood transfusions. At least five different genes have been associated with hereditary spherocytosis, ANK1, SPTB, SPTA1, SLC4A1, and EPB42, with mutations in the ANK1 gene being present in approximately 50% of those with hereditary spherocytosis. The genes which have been associated with hereditary spherocytosis are responsible for producing proteins that are found on the membranes of red blood cells; these proteins transport molecules into and out of the red blood cells, attach to other proteins, and maintain cell structure. Some of these proteins also allow for cell flexibility. Approximately 75% of cases of hereditary spherocytosis are inherited in an autosomal dominant fashion, due to changes in the ANK1, SPTB, or SLC4A1 genes. This means that having an alteration in just one copy of a causative gene (our genes occur in pairs) is sufficient to cause the condition and that there is a 50% chance that any child of an affected parent will also be affected. Autosomal dominant forms of hereditary spherocytosis tend to be associated with a mild to moderate clinical presentation. Less commonly, hereditary spherocytosis is inherited in an autosomal recessive fashion, due to changes in the ANK1, SPTB, SPTA1 or EPB42 genes. This means that both copies of the causative gene must be altered for the condition to occur, one copy typically coming from each parent. Autosomal recessive forms of hereditary spherocytosis tend to be associated with a more severe clinical presentation. It was explained that Christiano's family history is consistent with an autosomal dominant form of hereditary spherocytosis. As a result, it is expected that there will be a 50% chance that any child of his will also have hereditary spherocytosis. However, the option of a genetics evaluation and confirmatory genetic testing was discussed with Christiano. It was also explained that if the causative genetic alteration can be identified in him, reliable genetic testing would be available to their children and other at-risk family members. If genetic testing is not pursued or if a causative mutation cannot be identified, Christiano's children should have other blood work after to screen for hereditary spherocytosis. It was explained that there have been rare reports of fetuses developing hemolytic anemia and hydrops in utero related to hereditary spherocytosis. However, this appears to primarily be a concern for fetuses with an autosomal recessive form of hereditary spherocytosis, or for fetuses who have inherited a genetic alteration associated with an autosomal dominant form of hereditary spherocytosis from each parent (i.e., when both parents have autosomal dominant hereditary spherocytosis and each of them pass on their causative genetic alteration). Nevertheless, monitoring for anemia and hydrops can be accomplished with ultrasound and middle cerebral artery Dopplers, for added reassurance. Recommendations and Plan: [employer]'s Red Blood Cell Membrane Disorders Panel; will have saliva sample sent to home address; [employer] [employer] will contact Christiano within 72 hours of receiving his sample if estimated cxz-[id number] is >$100. Follow up appointment: Will call Christiano with results of the above Counseling and/or coordination of care (face to face) was greater than 15 minutes which is more than the 50% of the total time of 20 minutes spent on the encounter. Normal [facility] CBCon 02-06-2020 Erythrocyte distribution width (RBC) [Ratio] 14.7 % High 11.5 - 14.5 [facility] Comment on above: Performed By: #### C BC ####[id number] [place] [address] Hematocrit (Bld) [Volume fraction] 44.0 % Normal 41.0 - 52.0 [facility] Comment on above: Performed By: #### C BC ####[id number] [place] [address] Hemoglobin (Bld) [Mass/Vol] 13.1 g/dL Low 13.5 - 17.5 [facility] Comment on above: Performed By: #### C BC ####[id number] [place] [address] MCHC (RBC) [Mass/Vol] 29.8 g/dL Low 32.0 - 36.0 [facility] Comment on above: Performed By: #### C BC ####[id number] [place] [address] MCV (RBC) [Entitic vol] 96 fL Normal 80 - 100 [facility] Comment on above: Performed By: #### C BC ####[id number] [place] [address] Nucleated RBC/100 WBC (Bld) [Ratio] 0.0 /100 WBC Normal 0.0-0.0 [facility] Comment on above: Performed By: #### C BC ####[id number] [place] [address] Platelets (Bld) [#/Vol] 1277 10*3/uL High 150 - 450 [facility] Comment on above: Result Comment: Plat elet count verified by smear review. Performed By: #### C BC ####[id number] [place] [address] RBC (Bld) [#/Vol] 4.56 x10E12/L Normal 4.50 - 5.90 [facility] Comment on above: Performed By: #### C BC ####[id number] [place] [address] WBC (Bld) [#/Vol] 10.4 10*3/uL Normal 4.4 - 11.3 [facility] Comment on above: Performed By: #### C BC ####[id number] [place] [address] BASIC METABOLIC PANELon 01-16 Anion gap [Moles/Vol] 15 mmol/L Normal 10 - 20 [facility] Comment on above: Performed By: #### B MP ####[id number] [place] [address] Calcium [Mass/Vol] 8.8 mg/dL Normal 8.6 - 10.6 [facility] Comment on above: Performed By: #### B MP ####[id number] [place] [address] Chloride [Moles/Vol] 104 mmol/L Normal 98 - 107 [facility] Comment on above: Performed By: #### B MP ####[id number] [place] [address] Creatinine [Mass/Vol] 0.55 mg/dL Normal 0.50 - 1.30 [facility] Comment on above: Performed By: #### B MP ####[id number] [place] [address] GFR- AM. >60 Normal >60 [facility] Comment on above: Result Comment: CALC ULATIONS OF ESTIMATED GFR ARE PERFORMED USING THE MDRD STUDY EQUATION FOR THE IDMS-TRACEABLE CREATININE METHODS. CLIN CHEM 2007;53:766-72 Performed By: #### B MP ####[id number] [place] [address] GFR-NON AM. >60 Normal >60 [facility] Comment on above: Performed By: #### B MP ####[id number] [place] [address] Glucose [Mass/Vol] 89 mg/dL Normal 74 - 99 [facility] Comment on above: Performed By: #### B MP ####[id number] [place] [address] HCO3 (Bld) [Moles/Vol] 23 mmol/L Normal 21 - 32 [facility] Comment on above: Performed By: #### B MP ####[id number] [place] [address] Potassium [Moles/Vol] 3.9 mmol/L Normal 3.5 - 5.3 [facility] Comment on above: Performed By: #### B MP ####[id number] [place] [address] Sodium [Moles/Vol] 138 mmol/L Normal 136 - 145 [facility] Comment on above: Performed By: #### B MP ####[id number] [place] [address] Urea nitrogen [Mass/Vol] 11 mg/dL Normal 6 - 23 [facility] Comment on above: Performed By: #### B MP ####[id number] [place] [address] CBCon 01-28-2020 Erythrocyte distribution width (RBC) [Ratio] 14.5 % Normal 11.5 - 14.5 [facility] Comment on above: Performed By: #### C BC ####[id number] [place] [address] Hematocrit (Bld) [Volume fraction] 34.1 % Low 41.0 - 52.0 [facility] Comment on above: Performed By: #### C BC ####[id number] [place] [address] Hemoglobin (Bld) [Mass/Vol] 10.7 g/dL Low 13.5 - 17.5 [facility] Comment on above: Performed By: #### C BC ####[id number] [place] [address] MCHC (RBC) [Mass/Vol] 31.4 g/dL Low 32.0 - 36.0 [facility] Comment on above: Performed By: #### C BC ####[id number] [place] [address] MCV (RBC) [Entitic vol] 93 fL Normal 80 - 100 [facility] Comment on above: Performed By: #### C BC ####[id number] [place] [address] Nucleated RBC/100 WBC (Bld) [Ratio] 0.2 /100 WBC Normal 0.0-0.0 [facility] Comment on above: Performed By: #### C BC ####[id number] [place] [address] Platelets (Bld) [#/Vol] 742 10*3/uL High 150 - 450 [facility] Comment on above: Performed By: #### C BC ####[id number] [place] [address] RBC (Bld) [#/Vol] 3.65 x10E12/L Low 4.50 - 5.90 [facility] Comment on above: Performed By: #### C BC ####[id number] [place] [address] WBC (Bld) [#/Vol] 16.1 10*3/uL High 4.4 - 11.3 [facility] Comment on above: Performed By: #### C BC ####[id number] [place] [address] Daily Progress Note-Surgeryo n 01-28-2020 Daily Progress Note-Surgery Service: Surgery Subjective Data: MARCECHRISTIANO is a 24 year old Male who is Hospital Day # 8 and POD #7 for laparoscopic splenectomy. Pt examined at bedside. Pt reports reduced scrotal swelling and with unchanged scrotal pain. Dark green emesis of small volume on Jan 26 in the afternoon. pt ambulating. Pt denies SOB, chest pain, hemoptysis, or hematemesis. Objective Data: Objective Information: T PRBPSpO2 [id number]% Date/Time01/27 11: 11::: 11:28 Range(36.1C - 37.4C ) (84 - 103 ) (18 - 18 ) (120 - 134 )/ (65 - 81 ) (93% - 100% ) Highest temp of 37.4 C was recorded at 01/26 19:35 Pain reported at 01/27 8:21: 2 = Mild ---- Intake and Output ----- Mn/Dy/Year TimeIntakeOutputNet Jan 28, 2020 6:00 [id number] Jan 27, 2020 10:00 [id number] Jan 27, 2020 2:00 [id number] The Intake and Output Totals for the last 24 hours are: IntakeOutputNet [id number] Physical Exam: Constitutional: Well developed, awake/alert/oriented x3, no distress, alert and cooperative Eyes: EOMI Head/Neck: No apparent injury, Normocephalic atraumatic Respiratory/Thorax: Patent airways, CTAB, normal breath sounds with good chest expansion, thorax symmetric Cardiovascular: Regular, rate and rhythm, no murmurs, normal S 1and S 2 Gastrointestinal: Mildly tympanic. Nondistended, non-tender, no rebound tenderness or guarding, no masses palpable. Incisions showed no signs of inflammation. Genitourinary: Swollen scrotum. Nonerythematous, no discharge, no blood in meatus. Musculoskeletal: ROM intact Neurological: alert and oriented x3, Psychological: Appropriate mood and behavior Skin: Warm and dry Recent Lab Results: Results: CBC: 01/28/2020 05:46 \ Hgb / \ 10.7 L / WBC Plt 16.1 H 742 H / Hct \ / 34.1 L \ RBC: 3.65 L MCV: 93 BMP: 01/28/2020 05:46 NA+ Cl- BUN / 138 104 11 / -------- Glucose --- 89 K+ HCO3- Creat \ 3.9 23 0.55 \ Calcium : 8.8 Anion Gap : 15 Assessment and Plan: Comorbidities: Comorbidity: Other Assessment: CHRISTIANO ZHENG is a 24 year old Male who is Hospital Day # 8 and POD #7 for 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 Hemodynamically stable following embolization. Pt had ileus, which has since resolved. Occasional emesis. Plan Neuro: Lidocaine 5% transdermal (1 patch/24hrs) Fentanyl ACETYLENE PLANT OPERATOR -> Tramadol CV: Continue monitoring hemodynamic status Pulm: Incentive spirometer Satting on RA GI: Advance CLD to FLD Ondansetron injectable (4mg/4hrs) for nausea Bisacodyl rectal (10mg/day) suppository Pantoprazole (40mg/day) for reflux Scopolamine patch (1.5mg/72hr) Nausea : Continue monitoring scrotal swelling and pain Skin: Diphenhydramine (25mg/6hr) MSK: OOB, ambulating DVT Ppx: restart Heparin subcutaneous (5000units/8hrs) Dispo: home when tolerating FLD Discussed plan with Dr. Martina Quinteros, MS3 I have seen the patient with this medical student and agree with their documentation. Objective data, assessment, and plan have been edited accordingly. Jluis Rinaldi MD [facility] p: [phone] Signature/Cosignature/At testation: Note Completion: I am a: Medical Student/Acting Bill Board Poster Medical Student AttestellaI, or a resident under my supervision, was present with the medical student who participated in the documentation of this note. I have personally seen and examined the patient and performed the medical decision-making components. I have reviewed the medical student documentation and/or resident documentation and verified the findings in the note as written with additions or exceptions as stated in the body of this note. I personally evaluated the patient [id number] Electronic Signatures: Jluis Rinaldi (Resident)) (Signed 28-Jan-2020 16:13) Authored: Subjective Data, Assessment and Plan, Signature/Cosignature/At testation Co-Signer: Service, Subjective Data, Objective Data, Assessment and Plan, Signature/Cosignature/At testation Eagle Mcmanus) (Signed 29-Jan-2020 08:10) Authored: Signature/Cosignature/At testation Co-Signer: Subjective Data, Assessment and Plan, Signature/Cosignature/At testation Tomas Quinteros (MED STUD) (Signed 28-Jan-2020 13:04) Authored: Service, Subjective Data, Objective Data, Assessment and Plan, Signature/Cosignature/At testation Last Updated: 29-Jan-2020 08:10 by Eagle Mcmanus) Normal [facility] BASIC METABOLIC PANELon 01-16 Anion gap [Moles/Vol] 19 mmol/L Normal 10 - 20 [facility] Comment on above: Order Comment: CRIT GLU CALLED RB TO VANESSA CHAVEZ, 01/27/2020 14:52 Performed By: #### B MP ####[id number] [place] [address] Calcium [Mass/Vol] 8.9 mg/dL Normal 8.6 - 10.6 [facility] Comment on above: Order Comment: CRIT GLU CALLED RB TO VANESSA CHAVEZ, 01/27/2020 14:52 Performed By: #### B MP ####[id number] [place] [address] Chloride [Moles/Vol] 103 mmol/L Normal 98 - 107 [facility] Comment on above: Order Comment: CRIT GLU CALLED RB TO VANESSA CHAVEZ, 01/27/2020 14:52 Performed By: #### B MP ####[id number] [place] [address] Creatinine [Mass/Vol] 0.54 mg/dL Normal 0.50 - 1.30 [facility] Comment on above: Order Comment: CRIT GLU CALLED RB TO VANESSA CHAVEZ, 01/27/2020 14:52 Performed By: #### B MP ####[id number] [place] [address] GFR- AM. >60 Normal >60 [facility] Comment on above: Order Comment: CRIT GLU CALLED RB TO VANESSA CHAVEZ, 01/27/2020 14:52 Result Comment: CALC ULATIONS OF ESTIMATED GFR ARE PERFORMED USING THE MDRD STUDY EQUATION FOR THE IDMS-TRACEABLE CREATININE METHODS. CLIN CHEM 2007;53:766-72 Performed By: #### B MP ####[id number] [place] [address] GFR-NON AM. >60 Normal >60 [facility] Comment on above: Order Comment: CRIT GLU CALLED RB TO VANESSA CHAVEZ, 01/27/2020 14:52 Performed By: #### B MP ####[id number] [place] [address] Glucose [Mass/Vol] 38 mg/dL Critically low 74 - 99 [facility] Comment on above: Order Comment: CRIT GLU CALLED RB TO VANESSA CHAVEZ, 01/27/2020 14:52 Result Comment: CRIT GLU CALLED RB TO VANESSA CHAVEZ, 01/27/2020 14:52 Performed By: #### B MP ####[id number] [place] [address] HCO3 (Bld) [Moles/Vol] 21 mmol/L Normal 21 - 32 [facility] Comment on above: Order Comment: CRIT GLU CALLED RB TO VANESSA CHAVEZ, 01/27/2020 14:52 Performed By: #### B MP ####[id number] [place] [address] Potassium [Moles/Vol] 4.0 mmol/L Normal 3.5 - 5.3 [facility] Comment on above: Order Comment: CRIT GLU CALLED RB TO VANESSA CHAVEZ, 01/27/2020 14:52 Result Comment: MILD HEMOLYSIS DETECTED. The result may be falsely elevated due to hemolysis or other interferents. Clinical correlation is recommended. Repeat testing may be considered. Performed By: #### B MP ####[id number] [place] [address] Sodium [Moles/Vol] 139 mmol/L Normal 136 - 145 [facility] Comment on above: Order Comment: CRIT GLU CALLED RB TO VANESSA CHAVEZ, 01/27/2020 14:52 Performed By: #### B MP ####[id number] [place] [address] Urea nitrogen [Mass/Vol] 13 mg/dL Normal 6 - 23 [facility] Comment on above: Order Comment: CRIT GLU CALLED RB TO VANESSA CHAVEZ, 01/27/2020 14:52 Performed By: #### B MP ####[id number] [place] [address] CBCon 01-27-2020 Erythrocyte distribution width (RBC) [Ratio] 14.5 % Normal 11.5 - 14.5 [facility] Comment on above: Performed By: #### C BC ####[id number] [place] [address] Hematocrit (Bld) [Volume fraction] 32.4 % Low 41.0 - 52.0 [facility] Comment on above: Performed By: #### C BC ####[id number] [place] [address] Hemoglobin (Bld) [Mass/Vol] 10.3 g/dL Low 13.5 - 17.5 [facility] Comment on above: Performed By: #### C BC ####[id number] [place] [address] MCHC (RBC) [Mass/Vol] 31.8 g/dL Low 32.0 - 36.0 [facility] Comment on above: Performed By: #### C BC ####[id number] [place] [address] MCV (RBC) [Entitic vol] 93 fL Normal 80 - 100 [facility] Comment on above: Performed By: #### C BC ####[id number] [place] [address] Nucleated RBC/100 WBC (Bld) [Ratio] 0.3 /100 WBC Normal 0.0-0.0 [facility] Comment on above: Performed By: #### C BC ####[id number] [place] [address] Platelets (Bld) [#/Vol] 625 10*3/uL High 150 - 450 [facility] Comment on above: Performed By: #### C BC ####[id number] [place] [address] RBC (Bld) [#/Vol] 3.49 x10E12/L Low 4.50 - 5.90 [facility] Comment on above: Performed By: #### C BC ####[id number] [place] [address] WBC (Bld) [#/Vol] 16.4 10*3/uL High 4.4 - 11.3 [facility] Comment on above: Performed By: #### C BC ####[id number] [place] [address] Daily Progress Note-Interven tional Radiology/Radiologyon 01-27-2020 Daily Progress Note-Interventional Radiology/Radiology Service: Interventional Radiology/Radiology Subjective Data: CHRISTIAON ZHENG is a 24 year old Male who is Hospital Day # 7 and POD #6 for 1. laparoscopic splenectomy. Patient reports scant leakage from right groin IR procedure site. Nausea improved. Heartburn, hiccups resolved. Denies fever, chills. Objective Data: Objective Information: T PRBPSpO2 [id number]/[id number]% Date/Time01/26 11: 11: 11: 11: 11:42 Range(36.2C - 36.9C ) (87 - 96 ) (18 - 19 ) (134 - 155 )/ (78 - 90 ) (96% - 100% ) Highest temp of 36.9 C was recorded at 01/25 15:33 Pain reported at 01/26 2:27: 3 = Mild ---- Intake and Output ----- Mn/Dy/Year TimeIntakeOutunm [facility] Jan 27, 2020 6:00 [id number] Jan 26, 2020 10:00 [id number] Jan 26, 2020 2:00 [id number] The Intake and Output Totals for the last 24 hours are: IntakeOutputNet [id number] Physical Exam: Constitutional: Well developed, resting in bed, in no acute distress, alert and cooperative, conversive Eyes: anicteric sclerae ENMT: MMM Respiratory/Thorax: nonlabored breathing on room air, no conversational dyspnea Cardiovascular: regular rate Gastrointestinal: soft, nondistended, no TTP, surgical incisions c/d/i, steri strips in place Extremities: Right groin site with scant serosanguinous oozing, dressing in place. No palpable hematoma, fluctuance or induration. Neurological: A&Ox3 Psychological: Appropriate mood and behavior Skin: warm and dry, without jaundice Medication: Medications: Continuous Medications -------- No continuous medications are active Scheduled Medications -------- 1. Bisacodyl Rectal: 10 mg Rectal Daily 2. Haemophilus B Conjugate (ActHIB) Vaccine IntraMuscular: 0.5 mL IntraMuscular Once 3. Lidocaine 5% TransDermal: 1 patch TransDermal Every 24 Hours 4. Lidocaine 5% TransDermal: 1 patch TransDermal Every 24 Hours 5. Meningococcal Diptheria Conjugate (MENACTRA) Vaccine: 0.5 mL IntraMuscular Once 6. Meningococcal Group B (BEXSERO) Vaccine: 0.5 mL IntraMuscular Once 7. Methocarbamol Injectable: 1000 mg IntraVenous Push Every 8 Hours 8. Pantoprazole Injectable: 40 mg IntraVenous Push Every 24 Hours 9. Scopolamine 1.5 mg TransDermal: 1 patch TransDermal Every 72 Hours PRN Medications -------- 1. diphenhydrAMINE Injectable: 25 mg IntraVenous Push Every 6 Hours 2. Naloxone Injectable: 0.2 mg IntraVenous Push Once 3. Ondansetron Injectable: 4 mg IntraVenous Push Every 4 Hours 4. Promethazine IV Piggy Back: 12.5 mg IntraVenous Piggyback Every 6 Hours Currently Suspended Medications -------- 1. Heparin SubCutaneous: 5000 unit(s) SubCutaneous Every 8 Hours Recent Lab Results: Results: I have reviewed these laboratory results: Basic Metabolic Panel 26-Jan-2020 06:58:00 ResultValue Glucose, Serum 90 NA 138 K 4.2 CL 102 Bicarbonate, Serum 24 Anion Gap, Serum 16 BUN 13 CREAT 0.54 GFR-Non >60 GFR- >60 Calcium, Serum 9.2 Complete Blood Count 26-Jan-2020 06:58:00 ResultValue White Blood Cell Count 17.2 H Nucleated Erythrocyte Count 0.3 Red Blood Cell Count 3.33 L HGB 10.2 L HCT 34.8 L MCV 105 H MCHC 29.3 L PLT 224 RDW-CV 14.8 H Radiology Results: Results: Impression: 1. Splenic artery angiogram reveals focus of active arterial extravasation in a branch vessel off the distal splenic artery in the surgical bed correlating with findings seen on same day CTA. 2. Successful image guided coil embolization of the same as detailed above resulting in stasis and interval resolution of active arterial extravasation. Angio Add 07/21/Abd/Pel [Jan 23 2020 12:21PM] Assessment and Plan: Assessment: Christiano Zheng is a 24yo M with hereditary spherocytosis now POD5 from laparoscopic splenectomy complicated by post op bleed requiring IR embolization on 01/21. Currently, HDS. H/H stable and is having an ileus. Free air on plain films from laparoscopy and was present on post-op CT scan. 01/22/20 1. Splenic artery angiogram reveals focus of active arterial extravasation in a branch vessel off the distal splenic artery in the surgical bed correlating with findings seen on same day CTA. 2. Successful image guided coil embolization of the same as detailed above resulting in stasis and interval resolution of active arterial extravasation. Right groin site with scant serosanguinous output on dressing, improved from yesterday. Recommendations - Monitor right groin site - Monitor h/h - IR signing off IR Nurse Coordinator [id number] IR PA / resident [id number] Electronic Signatures: Ann Alfaro (PAC) (Signed 27-Jan-2020 12:40) Authored: Service, Subjective Data, Objective Data, Assessment and Plan, Signature/Cosignature/At testation Last Updated: 27-Jan-2020 12:40 by Ann Alfaro (PAC) Normal [facility] Daily Progress Note-Surgeryo n 01-27-2020 Daily Progress Note-Surgery Service: Surgery Subjective Data: CHRISTIANO ZHENG is a 24 year old Male who is Hospital Day # 7 and POD #6 for 1. laparoscopic splenectomy. Patient seen and examined at bedside. Patient had episode of emesis in the evening yesterday but nausea has improved. Pain has improved with other medications; fentanyl ACETYLENE PLANT OPERATOR reduced yesteray. Reflux improved. No hiccups. Walked yesterday. Scrotal swelling still present but reduced a bit. Objective Data: Objective Information: T PRBPSpO2 [id number]/8896% Date/Time01/26 7: 7: 7: 7: 7:35 Range(36.2C - 36.9C ) (89 - 96 ) (18 - 19 ) (128 - 155 )/ (75 - 90 ) (96% - 100% ) Highest temp of 36.9 C was recorded at 01/25 15:33 Pain reported at 01/26 2:27: 3 = Mild ---- Intake and Output ----- Mn/Dy/Year TimeIntakeOutputNet Jan 27, 2020 6:00 [id number] Jan 26, 2020 10:00 [id number] Jan 26, 2020 2:00 [id number] The Intake and Output Totals for the last 24 hours are: IntakeOutputNet [id number] Physical Exam: Constitutional: Well developed, no acute distress, lying in bed Eyes: EOMI Head/Neck: NCAT Respiratory/Thorax: Non labored breathing on room air Cardiovascular: RR Gastrointestinal: soft, slightly distended, decreased TTP from yesterday, incisions c/d/i with steri strips Genitourinary: scrotum swollen. no signs of erythema. no swelling of penis. right groin area bruised. dressing with some blood. soft, unconcerning for hematoma. Extremities: No lower extremity edema Neurological: Alert and oriented Psychological: Appropriate mood and affect Skin: warm and dry Assessment and Plan: Comorbidities: Comorbidity: Other Assessment: Christiano Zheng is a 24yo M with hereditary spherocytosis now POD5 from laparoscopic splenectomy complicated by post op bleed requiring IR embolization on 01/21. Currently, HDS. H/H stable and is having an ileus. Free air on plain films from laparoscopy and was present on post-op CT scan. Plan: Neuro: -fentanyl ACETYLENE PLANT OPERATOR spaced out (25mcg/hr), robaxin, lidocaine patches for postop pain CV: - Continue monitoring hemodynamic status Pulm: - IS q1h, OOB GI: - advance to CLD today - Zofran, scopolamine patch for nausea - chewing gum - PPI for reflux - post splenectomy vaccines - pneumovax 13-valent, Hib, meningococcal x2 : - HLIV; IVF off - Strict I/Os MSK: OOB, ambulate DVT ppx: SCDs; OOB, hold chemical ppx Dispo: pending improvement in pain and return of bowel function Discussed with Dr. Martina Rinaldi MD [place] - General Surgery p: [phone] Signature/Cosignature/At testation: Note Completion: I am a: Resident/Fellow Attending AttestationI saw and evaluated the patient. I personally obtained the boss and critical portions of the history and physical exam or was physically present for boss and critical portions performed by the resident/fellow. I reviewed the resident/fellows documentation and discussed the patient with the resident/fellow. I agree with the resident/fellows medical decision making as documented in the note. I personally evaluated the patient [id number] Comments/ Additional Findings Patient is improving. will wean pain meds encourage diet and mobilzation Electronic Signatures: Jluis Rinaldi (Resident)) (Signed 27-Jan-2020 08:41) Authored: Service, Subjective Data, Objective Data, Assessment and Plan, Signature/Cosignature/At testation Eagle Mcmanus) (Signed 28-Jan-2020 07:34) Authored: Signature/Cosignature/At testation Co-Signer: Service, Subjective Data, Objective Data, Assessment and Plan, Signature/Cosignature/At testation Last Updated: 28-Jan-2020 07:34 by Eagle Mcmanus) Normal [facility] GLUCOSE-POCTon 01-27-2020 Glucose [Mass/Vol] 101 mg/dL High 74 - 99 [facility] Comment on above: Performed By: #### G DAPHNE ####[id number] [place] [address] MAGNESIUMon 01-27-2020 Magnesium [Mass/Vol] 2.64 mg/dL High 1.60 - 2.40 [facility] Comment on above: Performed By: #### M G ####[id number] [place] [address] SURF MARKERS 9-15,PATH REVon 01-27-2020 PATH REV.9-15 MARKERS CAMI Normal [facility] Comment on above: Result Comment: By h er/his signature above, the Pathologist listed as making the final interpretation certifies that she/he has personally reviewed this case. Performed By: #### P R192 ####[id number] [place] [address] SURFACE MARKERS LYMPHOMA CUT DOWN PANELon 01-27-2020 CD19 57 % of Lymph Normal [facility] Comment on above: Result Comment: Poly clonal Counce/Lambda= 29:32 Performed By: #### L CPAN ####[id number] [place] [address] COMMENT see below Normal [facility] Comment on above: Result Comment: T ce lls are polyclonal by TRBC1 staining. Performed By: #### L CPAN ####[id number] [place] [address] DIAGNOSIS SEE BELOW Normal [facility] Comment on above: Result Comment: No i mmunophenotypic evidence of a lymphoproliferative disorder. No discrete blast population. Performed By: #### L CPAN ####[id number] [place] [address] NOTE SEE BELOW Normal [facility] Comment on above: Result Comment: Clin ical and morphologic correlation is suggested. Performed By: #### L CPAN ####[id number] [place] [address] CD4 14 % of Lymph Normal [facility] Comment on above: Performed By: #### L CPAN ####[id number] [place] [address] CD8 17 % of Lymph Normal [facility] Comment on above: Performed By: #### L CPAN ####[id number] [place] [address] CELL COUNT 83.53 x10E9/L Normal [facility] Comment on above: Performed By: #### L CPAN ####[id number] [place] [address] Granulocytes/100 WBC (Bld) 6 % Normal [facility] Comment on above: Performed By: #### L CPAN ####[id number] [place] [address] Lymphocytes/100 WBC (Bld) 61 % Normal [facility] Comment on above: Performed By: #### L CPAN ####[id number] [place] [address] Monocytes/100 WBC (Bld) 2 % Normal [facility] Comment on above: Performed By: #### L CPAN ####[id number] [place] [address] NK 12 % of Lymph Normal [facility] Comment on above: Performed By: #### L CPAN ####[id number] [place] [address] NUMBER OF CELLS COLLECTED 100,000 per tube Normal [facility] Comment on above: Performed By: #### L CPAN ####[id number] [place] [address] BASIC METABOLIC PANELon 08-1 0-2020 Anion gap [Moles/Vol] 16 mmol/L Normal 10 - 20 [facility] Comment on above: Performed By: #### B MP ####[id number] [place] [address] Calcium [Mass/Vol] 9.2 mg/dL Normal 8.6 - 10.6 [facility] Comment on above: Performed By: #### B MP ####[id number] [place] [address] Chloride [Moles/Vol] 102 mmol/L Normal 98 - 107 [facility] Comment on above: Performed By: #### B MP ####[id number] [place] [address] Creatinine [Mass/Vol] 0.54 mg/dL Normal 0.50 - 1.30 [facility] Comment on above: Performed By: #### B MP ####[id number] [place] [address] GFR- AM. >60 Normal >60 [facility] Comment on above: Result Comment: CALC ULATIONS OF ESTIMATED GFR ARE PERFORMED USING THE MDRD STUDY EQUATION FOR THE IDMS-TRACEABLE CREATININE METHODS. CLIN CHEM 2007;53:766-72 Performed By: #### B MP ####[id number] [place] [address] GFR-NON AM. >60 Normal >60 [facility] Comment on above: Performed By: #### B MP ####[id number] [place] [address] Glucose [Mass/Vol] 90 mg/dL Normal 74 - 99 [facility] Comment on above: Performed By: #### B MP ####[id number] [place] [address] HCO3 (Bld) [Moles/Vol] 24 mmol/L Normal 21 - 32 [facility] Comment on above: Performed By: #### B MP ####[id number] [place] [address] Potassium [Moles/Vol] 4.2 mmol/L Normal 3.5 - 5.3 [facility] Comment on above: Result Comment: MILD HEMOLYSIS DETECTED. The result may be falsely elevated due to hemolysis or other interferents. Clinical correlation is recommended. Repeat testing may be considered. Performed By: #### B MP ####[id number] [place] [address] Sodium [Moles/Vol] 138 mmol/L Normal 136 - 145 [facility] Comment on above: Performed By: #### B MP ####[id number] [place] [address] Urea nitrogen [Mass/Vol] 13 mg/dL Normal 6 - 23 [facility] Comment on above: Performed By: #### B MP ####[id number] [place] [address] CBCon 01-26-2020 Erythrocyte distribution width (RBC) [Ratio] 14.8 % High 11.5 - 14.5 [facility] Comment on above: Performed By: #### H APTO #### [facility] [address] [place] [address] Hematocrit (Bld) [Volume fraction] 34.8 % Low 41.0 - 52.0 [facility] Comment on above: Performed By: #### H APTO #### [facility] [id number] [place] [address] Hemoglobin (Bld) [Mass/Vol] 10.2 g/dL Low 13.5 - 17.5 [facility] Comment on above: Performed By: #### H APTO #### [facility] [id number] [place] [address] MCHC (RBC) [Mass/Vol] 29.3 g/dL Low 32.0 - 36.0 [facility] Comment on above: Performed By: #### H APTO #### [facility] [id number] [place] [address] MCV (RBC) [Entitic vol] 105 fL High 80 - 100 [facility] Comment on above: Performed By: #### H APTO #### [facility] [address] [place] [address] Nucleated RBC/100 WBC (Bld) [Ratio] 0.3 /100 WBC Normal 0.0-0.0 [facility] Comment on above: Performed By: #### H APTO #### [facility] [address] [place] [address] Platelets (Bld) [#/Vol] 224 10*3/uL Normal 150 - 450 [facility] Comment on above: Performed By: #### H APTO #### [facility] [address] [place] [address] RBC (Bld) [#/Vol] 3.33 x10E12/L Low 4.50 - 5.90 [facility] Comment on above: Performed By: #### H APTO #### [facility] [address] [place] [address] WBC (Bld) [#/Vol] 17.2 10*3/uL High 4.4 - 11.3 [facility] Comment on above: Performed By: #### H APTO #### [facility] [id number] [place] [address] Daily Progress Note-Interven tional Radiology/Radiologyon 01-26-2020 Daily Progress Note-Interventional Radiology/Radiology Service: Interventional Radiology/Radiology Subjective Data: BRITTNEYGCHRISTIANO is a 24 year old Male who is Hospital Day # 6 and POD #5 for 1. laparoscopic splenectomy. Patient reports leakage from right groin IR procedure site. Also reports nausea, vomiting, heartburn, and hiccups. Having diffuse pain. Denies fever, chills. Objective Data: Objective Information: T PRBPSpO2 Value36.71352410/9097% Date/Time01/25 12: 12: 12: 12: 12:45 Range(36C - 36.6C ) (78 - 99 ) (17 - 19 ) (128 - 155 )/ (75 - 90 ) (96% - 100% ) Pain reported at 01/25 12:31: 2 = Mild ---- Intake and Output ----- Mn[facility]Dy[facility] Jan 26, 2020 2:00 [id number] Jan 26, 2020 6:00 [id number] Jan 25, 2020 10:00 [id number] The Intake and Output Totals for the last 24 hours are: [facility] [id number] Physical Exam: Constitutional: Well developed, resting in bed, in no acute distress, alert and cooperative, conversive Eyes: anicteric sclerae ENMT: MMM Respiratory/Thorax: nonlabored breathing on room air, no conversational dyspnea Cardiovascular: regular rate Gastrointestinal: soft, nondistended, TTP diffusely worst in LUQ, surgical incisions c/d/i, steri strips in place Extremities: Right groin site oozing, dressing in place. No palpable hematoma, fluctuance or induration. Neurological: A&Ox3 Psychological: Appropriate mood and behavior Skin: warm and dry, without jaundice Medication: Medications: Continuous Medications -------- 1. fentaNYL ACETYLENE PLANT OPERATOR 1000 microgram/ NaCL 0.9% 50 mL: 1000 microgram(s) IV ACETYLENE PLANT OPERATOR 2. Lactated Ringers Infusion: 1000 mL IntraVenous Scheduled Medications -------- 1. Bisacodyl Rectal: 10 mg Rectal Daily 2. Iopamidol 76% (ISOVUE 370) -Radiology Contrast): 121.5 mL IntraVenous Push Once 3. Lidocaine 5% TransDermal: 1 patch TransDermal Every 24 Hours 4. Lidocaine 5% TransDermal: 1 patch TransDermal Every 24 Hours 5. Pantoprazole Injectable: 40 mg IntraVenous Push Every 24 Hours PRN Medications -------- 1. diphenhydrAMINE Injectable: 25 mg IntraVenous Push Every 6 Hours 2. Naloxone Injectable: 0.2 mg IntraVenous Push Once 3. Ondansetron Injectable: 4 mg IntraVenous Push Every 4 Hours 4. Promethazine IV Piggy Back: 12.5 mg IntraVenous Piggyback Every 6 Hours Currently Suspended Medications -------- 1. Heparin SubCutaneous: 5000 unit(s) SubCutaneous Every 8 Hours Recent Lab Results: Results: CBC: 01/26/2020 06:58 \ Hgb / \ 10.2 L / WBC Plt 17.2 H 224 / Hct \ / 34.8 L \ RBC: 3.33 L MCV: 105 H BMP: 01/26/2020 06:58 NA+ Cl- BUN / 138 102 13 / -------- Glucose --- 90 K+ HCO3- Creat \ 4.2 24 0.54 \ Calcium : 9.2 Anion Gap : 16 I have reviewed these laboratory results: Basic Metabolic Panel Trending View [id number] 06:58:00 25-Jan-2020 12:19:00 Glucose, Serum90 71 L NA138 139 K4.2 4.7 CL102 103 Bicarbonate, Serum24 23 Anion Gap, Serum16 18 BUN13 13 CREAT0.54 0.55 GFR-Non >60 >60 GFR->60 >60 Calcium, Serum9.2 8.7 Complete Blood Count Trending View [id number] 06:58:00 -Jan-2020 12:19:00 White Blood Cell Count17.2 H 22.7 H Nucleated Erythrocyte Count0.3 0.3 Red Blood Cell Count3.33 L 3.76 L HGB10.2 L 11.3 L HCT34.8 L 37.1 L PWZ207 H 99 MCHC29.3 L 30.5 L VJE539 292 RDW-CV14.8 H 15.4 H Radiology Results: Results: Impression: 1. Splenic artery angiogram reveals focus of active arterial extravasation in a branch vessel off the distal splenic artery in the surgical bed correlating with findings seen on same day CTA. 2. Successful image guided coil embolization of the same as detailed above resulting in stasis and interval resolution of active arterial extravasation. Angio Each add [Jan 23 2020 12:21PM] Impression: 1. Status post recent splenectomy. Active arterial extravasation in the surgical bed in close proximity to the inferior staple line with moderate amount of hemoperitoneum. Patient was subsequently taken to the IR suite for emergent splenic artery embolization from the CT scanner. 2. Postsurgical changes including pneumoperitoneum and mixed attenuation thickening of the left abdominal wall musculature. The critical findings in this report were communicated to Dr. Rinaldi by Sherman Francis MD (resident) On 01/22/2020 at approximately 10:20 via phone. CTA Abd Aorta with Bilat Iliofem extr runoff w/wo cont post proc [Jan 23 2020 12:19PM] Assessment and Plan: Assessment: Christiano Zheng is a 24yo M with hereditary spherocytosis now POD5 from laparoscopic splenectomy complicated by post op bleed requiring IR embolization on 01/21. Currently, HDS. H/H stable and is having an ileus. Free air on plain films from laparoscopy and was present on post-op CT scan. 01/22/20 1. Splenic artery angiogram reveals focus of active arterial extravasation in a branch vessel off the distal splenic artery in the surgical bed correlating with findings seen on same day CTA. 2. Successful image guided coil embolization of the same as detailed above resulting in stasis and interval resolution of active arterial extravasation. Right groin site oozing serosanguinous. Nurse held pressure and applied pressure dressing. Hgb 10.2, VSS Recommendations - Monitor right groin site - Monitor h/h - IR will continue to follow IR Nurse Coordinator [id number] IR PA / resident [id number] Electronic Signatures: Ann Alfaro (PAC) (Signed 26-Jan-2020 14:48) Authored: Service, Subjective Data, Objective Data, Assessment and Plan, Signature/Cosignature/At testation Last Updated: 26-Jan-2020 14:48 by Ann Alfaro (PAC) Normal [facility] Daily Progress Note-Surgeryo n 01-26-2020 Daily Progress Note-Surgery Service: Surgery Subjective Data: CHRISTIANO ZHENG is a 24 year old Male who is Hospital Day # 6 and POD #5 for 1. laparoscopic splenectomy. Patient seen and examined at bedside. Had some episodes of emesis last night. Small volume, gastric contents. Still having diffuse pain but has been reluctant to use ACETYLENE PLANT OPERATOR since he knows it may worsen ileus. Has been walking around. Objective Data: Objective Information: T PRBPSpO2 Value36.97969475/7599% Date/Time01/25 8: 8: 8: 8: 8:42 Range(36C - 36.9C ) (78 - 99 ) (17 - 19 ) (128 - 143 )/ (75 - 85 ) (95% - 100% ) Highest temp of 36.9 C was recorded at 01/24 12:21 Pain reported at 01/24 20:41: 2 = Mild ---- Intake and Output ----- Mn/Dy/Year TimeIntakeOutputNet Jan 26, 2020 6:00 [id number] Jan 25, 2020 10:00 [id number] Jan 25, 2020 2:00 [id number] The Intake and Output Totals for the last 24 hours are: IntakeOutputNet [id number] Physical Exam: Constitutional: Well developed, no acute distress, lying in bed Eyes: EOMI Respiratory/Thorax: Non labored breathing on room air Cardiovascular: RR Gastrointestinal: soft, nondistended, TTP diffusely but more in LUQ, incisions c/d/i with steri strips Extremities: No lower extremity edema Neurological: Alert and oriented Psychological: Appropriate mood and affect Skin: warm and dry Recent Lab Results: Results: I have reviewed these laboratory results: Basic Metabolic Panel 26-Jan-2020 06:58:00 ResultValue Glucose, Serum 90 NA 138 K 4.2 CL 102 Bicarbonate, Serum 24 Anion Gap, Serum 16 BUN 13 CREAT 0.54 GFR-Non >60 GFR- >60 Calcium, Serum 9.2 Complete Blood Count 26-Jan-2020 06:58:00 ResultValue White Blood Cell Count 17.2 H Nucleated Erythrocyte Count 0.3 Red Blood Cell Count 3.33 L HGB 10.2 L HCT 34.8 L MCV 105 H MCHC 29.3 L PLT 224 RDW-CV 14.8 H Assessment and Plan: Comorbidities: Comorbidity: Other Assessment: Christiano Zheng is a 24yo M with hereditary spherocytosis now POD5 from laparoscopic splenectomy complicated by post op bleed requiring IR embolization on 01/21. Currently, HDS. H/H stable and is having an ileus. Free air on plain films from laparoscopy and was present on post-op CT scan. Plan: Neuro: -fentanyl ACETYLENE PLANT OPERATOR for postop pain - adding lidocaine patches to assist with decreased ACETYLENE PLANT OPERATOR use CV: - Continue monitoring hemodynamic status Pulm: - IS q1h, OOB GI: - continue CLD as tolerated - Zofran for nausea - chewing gum : - Continue MIVF; dec to 100ml/hr - Strict I/Os MSK: OOB, ambulate DVT ppx: SCDs; OOB, hold chemical ppx Dispo: pending improvement in pain and return of bowel function Discussed with Dr. Martina Rinaldi MD [facility] General Surgery p: [phone] Signature/Cosignature/At testation: Note Completion: I am a: Resident/Fellow Attending AttestationI saw and evaluated the patient. I personally obtained the boss and critical portions of the history and physical exam or was physically present for boss and critical portions performed by the resident/fellow. I reviewed the resident/fellows documentation and discussed the patient with the resident/fellow. I agree with the resident/fellows medical decision making as documented in the note. I personally evaluated the patient [id number] Electronic Signatures: Jluis Rinaldi (Resident)) (Signed 26-Jan-2020 10:21) Authored: Service, Subjective Data, Objective Data, Assessment and Plan, Signature/Cosignature/At testation Eagle Mcmanus) (Signed 26-Jan-2020 10:55) Authored: Signature/Cosignature/At testation Co-Signer: Service, Subjective Data, Objective Data, Assessment and Plan, Signature/Cosignature/At testation Last Updated: 26-Jan-2020 10:55 by Eagle Mcmanus) Normal [facility] FLOW CYTOMETRY TESTon 2019 FLOW TEST ORDERED LYMPHOMA CUTDOWN PANEL Normal [facility] Comment on above: Performed By: #### F CTST ####[id number] [place] [address] SOURCE TISSUE Normal [facility] Comment on above: Performed By: #### F CTST ####[id number] [place] [address] SURFACE MARKERS LYMPHOMA CUT DOWN PANELon 01-26-2020 SPECIMEN SITE Spleen Normal [facility] Comment on above: Result Comment: [id number] Performed By: #### L CPAN ####[id number] [place] [address] METHOD SEE BELOW Normal [facility] Comment on above: Result Comment: This test is a multicolor, whole blood lysis assay. It was developed and its performance characteristics determined by the Department of Pathology, [facility], and has not been cleared or approved by the U.S. Food and Drug Administration. The laboratory is regulated under CLIA as qualified to perform high complexity testing. This test is used for clinical purposes. It should not be regarded as investigational or for research. Immunophenotypic analysis was performed using the following antibodies: CD3, CD4, CD5, CD7, CD8, CD10, CD19, CD20, CD23, CD38, CD43, CD45, CD56, KAPPA, LAMBDA. Additional Antibodies: TCRB1, TCR gamma-delta Performed By: #### L CPAN ####[id number] [place] [address] SPECIMEN VIABILITY Acceptable Normal [facility] Comment on above: Performed By: #### L CPAN ####[id number] [place] [address] BASIC METABOLIC PANELon 08- Anion gap [Moles/Vol] 18 mmol/L Normal 10 - 20 [facility] Comment on above: Performed By: #### H APTO #### [facility] [address] [place] [address] Calcium [Mass/Vol] 8.7 mg/dL Normal 8.6 - 10.6 [facility] Comment on above: Performed By: #### H APTO #### [facility] [address] [place] [address] Chloride [Moles/Vol] 103 mmol/L Normal 98 - 107 [facility] Comment on above: Performed By: #### H APTO #### [facility] [address] [place] [address] Creatinine [Mass/Vol] 0.55 mg/dL Normal 0.50 - 1.30 [facility] Comment on above: Performed By: #### H APTO #### [facility] [address] [place] [address] GFR- AM. >60 Normal >60 [facility] Comment on above: Result Comment: CALC ULATIONS OF ESTIMATED GFR ARE PERFORMED USING THE MDRD STUDY EQUATION FOR THE IDMS-TRACEABLE CREATININE METHODS. CLIN CHEM 2007;53:766-72 Performed By: #### H APTO #### [facility] [address] [place] [address] GFR-NON AM. >60 Normal >60 [facility] Comment on above: Performed By: #### H APTO #### [facility] [address] [place] [address] Glucose [Mass/Vol] 71 mg/dL Low 74 - 99 [facility] Comment on above: Performed By: #### H APTO #### [facility] [address] [place] [address] HCO3 (Bld) [Moles/Vol] 23 mmol/L Normal 21 - 32 [facility] Comment on above: Performed By: #### H APTO #### [facility] [address] [place] [address] Potassium [Moles/Vol] 4.7 mmol/L Normal 3.5 - 5.3 [facility] Comment on above: Result Comment: MILD HEMOLYSIS DETECTED. The result may be falsely elevated due to hemolysis or other interferents. Clinical correlation is recommended. Repeat testing may be considered. Performed By: #### H APTO #### [facility] [address] [place] [address] Sodium [Moles/Vol] 139 mmol/L Normal 136 - 145 [facility] Comment on above: Performed By: #### H APTO #### [facility] [address] [place] [address] Urea nitrogen [Mass/Vol] 13 mg/dL Normal 6 - 23 [facility] Comment on above: Performed By: #### H APTO #### [facility] [address] [place] [address] Anion gap [Moles/Vol] Canceled Normal [facility] Comment on above: Order Comment: TEST BASIC METABOLIC PANEL WAS CANCELLED, 01/25/2020 08:19 Performed By: #### H APTO #### [facility] [address] [place] [address] Calcium [Mass/Vol] Canceled Normal [facility] Comment on above: Order Comment: TEST BASIC METABOLIC PANEL WAS CANCELLED, 01/25/2020 08:19 Performed By: #### H APTO #### [facility] [address] [place] [address] Chloride [Moles/Vol] Canceled Normal [facility] Comment on above: Order Comment: TEST BASIC METABOLIC PANEL WAS CANCELLED, 01/25/2020 08:19 Performed By: #### H APTO #### [facility] [address] [place] [address] Creatinine [Mass/Vol] Canceled Normal [facility] Comment on above: Order Comment: TEST BASIC METABOLIC PANEL WAS CANCELLED, 01/25/2020 08:19 Performed By: #### H APTO #### [facility] [address] [place] [address] GFR- AM. Canceled Normal [facility] Comment on above: Order Comment: TEST BASIC METABOLIC PANEL WAS CANCELLED, 01/25/2020 08:19 Result Comment: CALC ULATIONS OF ESTIMATED GFR ARE PERFORMED USING THE MDRD STUDY EQUATION FOR THE IDMS-TRACEABLE CREATININE METHODS. CLIN CHEM 2007;53:766-72 Performed By: #### H APTO #### [facility] [address] [place] [address] GFR-NON AM. Canceled Normal [facility] Comment on above: Order Comment: TEST BASIC METABOLIC PANEL WAS CANCELLED, 01/25/2020 08:19 Performed By: #### H APTO #### [facility] [address] [place] [address] Glucose [Mass/Vol] Canceled Normal [facility] Comment on above: Order Comment: TEST BASIC METABOLIC PANEL WAS CANCELLED, 01/25/2020 08:19 Performed By: #### H APTO #### [facility] [address] [place] [address] HCO3 (Bld) [Moles/Vol] Canceled Normal [facility] Comment on above: Order Comment: TEST BASIC METABOLIC PANEL WAS CANCELLED, 01/25/2020 08:19 Performed By: #### H APTO #### [facility] [address] [place] [address] Potassium [Moles/Vol] Canceled Normal [facility] Comment on above: Order Comment: TEST BASIC METABOLIC PANEL WAS CANCELLED, 01/25/2020 08:19 Performed By: #### H APTO #### [facility] [address] [place] [address] Sodium [Moles/Vol] Canceled Normal [facility] Comment on above: Order Comment: TEST BASIC METABOLIC PANEL WAS CANCELLED, 01/25/2020 08:19 Performed By: #### H APTO #### [facility] [address] [place] [address] Urea nitrogen [Mass/Vol] Canceled Normal [facility] Comment on above: Order Comment: TEST BASIC METABOLIC PANEL WAS CANCELLED, 01/25/2020 08:19 Performed By: #### H APTO #### [facility] [address] [place] [address] CBCon 01-25-2020 Erythrocyte distribution width (RBC) [Ratio] 15.4 % High 11.5 - 14.5 [facility] Comment on above: Performed By: #### H APTO #### [facility] [address] [place] [address] Hematocrit (Bld) [Volume fraction] 37.1 % Low 41.0 - 52.0 [facility] Comment on above: Performed By: #### H APTO #### [facility] [address] [place] [address] Hemoglobin (Bld) [Mass/Vol] 11.3 g/dL Low 13.5 - 17.5 [facility] Comment on above: Performed By: #### H APTO #### [facility] [address] [place] [address] MCHC (RBC) [Mass/Vol] 30.5 g/dL Low 32.0 - 36.0 [facility] Comment on above: Performed By: #### H APTO #### [facility] [address] [place] [address] MCV (RBC) [Entitic vol] 99 fL Normal 80 - 100 [facility] Comment on above: Performed By: #### H APTO #### [facility] [address] [place] [address] Nucleated RBC/100 WBC (Bld) [Ratio] 0.3 /100 WBC Normal 0.0-0.0 [facility] Comment on above: Performed By: #### H APTO #### [facility] [address] [place] [address] Platelets (Bld) [#/Vol] 292 10*3/uL Normal 150 - 450 [facility] Comment on above: Performed By: #### H APTO #### [facility] [address] [place] [address] RBC (Bld) [#/Vol] 3.76 x10E12/L Low 4.50 - 5.90 [facility] Comment on above: Performed By: #### H APTO #### [facility] [address] [place] [address] WBC (Bld) [#/Vol] 22.7 10*3/uL High 4.4 - 11.3 [facility] Comment on above: Performed By: #### H APTO #### [facility] [address] [place] [address] Erythrocyte distribution width (RBC) [Ratio] Canceled Normal [facility] Comment on above: Order Comment: TEST CBC WAS CANCELLED, 01/25/2020 08:19 Performed By: #### H APTO #### [facility] [address] [place] [address] Hematocrit (Bld) [Volume fraction] Canceled Normal [facility] Comment on above: Order Comment: TEST CBC WAS CANCELLED, 01/25/2020 08:19 Performed By: #### H APTO #### [facility] [address] [place] [address] Hemoglobin (Bld) [Mass/Vol] Canceled Normal [facility] Comment on above: Order Comment: TEST CBC WAS CANCELLED, 01/25/2020 08:19 Performed By: #### H APTO #### [facility] [address] [place] [address] MCHC (RBC) [Mass/Vol] Canceled Normal [facility] Comment on above: Order Comment: TEST CBC WAS CANCELLED, 01/25/2020 08:19 Performed By: #### H APTO #### [facility] [address] [place] [address] MCV (RBC) [Entitic vol] Canceled Normal [facility] Comment on above: Order Comment: TEST CBC WAS CANCELLED, 01/25/2020 08:19 Performed By: #### H APTO #### [facility] [address] [place] [address] Nucleated RBC/100 WBC (Bld) [Ratio] Canceled Normal [facility] Comment on above: Order Comment: TEST CBC WAS CANCELLED, 01/25/2020 08:19 Performed By: #### H APTO #### [facility] [address] [place] [address] Platelets (Bld) [#/Vol] Canceled Normal [facility] Comment on above: Order Comment: TEST CBC WAS CANCELLED, 01/25/2020 08:19 Performed By: #### H APTO #### [facility] [address] [place] [address] RBC (Bld) [#/Vol] Canceled Normal [facility] Comment on above: Order Comment: TEST CBC WAS CANCELLED, 01/25/2020 08:19 Performed By: #### H APTO #### [facility] [address] [place] [address] WBC (Bld) [#/Vol] Canceled Normal [facility] Comment on above: Order Comment: TEST CBC WAS CANCELLED, 01/25/2020 08:19 Performed By: #### H APTO #### [facility] [address] [place] [address] Daily Progress Note-Surgeryo n 01-25-2020 Daily Progress Note-Surgery Service: Surgery Subjective Data: CHRISTIANO ZHENG is a 24 year old Male who is Hospital Day # 5 and POD #4 for 1. laparoscopic splenectomy. Patient seen and examined at bedside. No acute events overnight. Pain improving. Mild nausea, no vomiting. Passed a lot of flatus yesterday per patient, not as much today. Had large BM. Objective Data: Objective Information: T PRBPSpO2 [id number]% Date/Time01/24 2: 2: 2: 2: 2:38 Range(36C - 37C ) (89 - 105 ) (10 - 29 ) (121 - 147 )/ (69 - 89 ) (97% - 100% ) As of 24-Jan-2020 08:00:00, patient is on 2 L/min of oxygen via nasal cannula. Highest temp of 37 C was recorded at 01/23 17:05 Pain reported at 01/23 19:20: 0 = None ---- Intake and Output ----- Mn/Dy/Year TimeIntakeOutputNet Jan 25, 2020 6:00 [id number] Jan 24, 2020 10:00 [id number] Jan 24, 2020 2:00 [id number] The Intake and Output Totals for the last 24 hours are: IntakeOutputNet [id number] Physical Exam: Constitutional: Patient lying comfortably in bed. Eyes: EOMI Respiratory/Thorax: Non labored breathing on room air Cardiovascular: RRR Gastrointestinal: soft, distended, TTP in LUQ, incisions c/d/i with steri strips Extremities: No lower extremity edema Neurological: Alert and oriented Psychological: Appropriate mood and affect Skin: warm and dry Assessment and Plan: Comorbidities: Comorbidity: Other Assessment: Christiano Zheng is a 24yo M with hereditary spherocytosis now POD3 from laparoscopic splenectomy complicated but post op bleed requiring IR embolization on 01/21. Currently, HDS. H/H stable and is having an ileus. Free air on plain films from laparoscopy and was present on post-op CT scan. Plan: Neuro: -fentanyl ACETYLENE PLANT OPERATOR for postop pain CV: - Continue monitoring hemodynamic status Pulm: - IS q1h, OOB GI: - advance to CLD - Zofran for nausea - chewing gum : - Continue MIVF; dec to 100ml/hr - Strict I/Os MSK: OOB, ambulate DVT ppx: SCDs; hold chemical ppx Dispo: pending improvement in pain and return of bowel function Discussed with Dr. Martina Rinaldi MD [facility] General Surgery p: [phone] Signature/Cosignature/At testation: Note Completion: I am a: Resident/Fellow Attending AttestationI saw and evaluated the patient. I personally obtained the boss and critical portions of the history and physical exam or was physically present for boss and critical portions performed by the resident/fellow. I reviewed the resident/fellows documentation and discussed the patient with the resident/fellow. I agree with the resident/fellows medical decision making as documented in the note. I personally evaluated the patient [id number] Comments/ Additional Findings Doing better today. encourage ambulation Electronic Signatures: Jluis Rinaldi (Resident)) (Signed 25-Jan-2020 08:03) Authored: Service, Subjective Data, Objective Data, Assessment and Plan, Signature/Cosignature/At testation Eagle Mcmanus) (Signed 25-Jan-2020 20:15) Authored: Signature/Cosignature/At testation Co-Signer: Signature/Cosignature/At testation Last Updated: 25-Jan-2020 20:15 by Eagle Mcmanus) Normal [facility] Discharge [id number] Discharge Profile2 Discharge Orders: Anticipated Discharge Date: Anticipated Discharge [id number] Problem List: Additional Dx: Hereditary spherocytosis: Catalog Name: Hereditary spherocytosis Significant Events: IR - embolization: Clinical Events This Visit, Emergent embolization of splenic artery on POD1 Surgical Procedure: Clinical Events This Visit, 21-Jan-2020, 1. laparoscopic splenectomy Hospital Providers: Provider RoleProvider Name PrimarySchwerer, Addie E Eagle Vieira Alysse Activity: activity as tolerated. May shower. May not drive while taking narcotics. No pushing, pulling, or lifting objects greater than 10 pounds for 6 week(s). Weight-bearing Instructions: weight-bearing as tolerated. Diet: Dietresume normal diet Wound Care 1: Wound Siteabdomen Wound Typesurgical incision Cleanse Withsoap and water Cover Withno dressing, leave open to air Instructionsno lotions, creams, or tub soaks Other InstructionsYou have surgical glue over your incision. You may shower and use soap and water over your incision. Pat dry. The surgical glue with slowly dissolve and fall away. Call Provider If (Homegoing Patients): - fever greater than 102 degrees/chills - increased pain not relieved with medication - redness/drainage from incision - severe nausea/vomiting - severe constipation/diarrhea - difficulty voiding/burning with urination. Hospital Course (Home Care/Gold Form): Hospital Course: Hospital Course: include significant abnormal lab values Christiano Zheng is a 24yo M with hx hereditary spherocytosis that underwent laparoscopic splenectomy. On POD1, patient was hypotensive with increased abdominal pain and downtrending H&H so after stabilization underwent embolization of the splenic artery by Interventional Radiology. Patient received 5U pRBCs. Patient taken to ICU where he remained stable so was transferred to [facility] on POD3. Postop course additionally complicated by ileus likely secondary to hemoperitoneum. Patient diet advanced slowly as tolerated to FLD. IV medications transitioned to PO with tolerance. On POD 7, patient discharged home. Provider FINAL REVIEW of Orders: Final Review: Final Review of Medication Reconciliation and Orders Completedby Physician Reviewing ProviderSSolitario Rinaldi MD (Resident) at 28-Jan-2020 17:14:45 Appointments: Follow-Up Appointment 01: Physician/Dept/Franco Mcmanus Reason for Referralpostop check Call to Schedule in2 weeks Phone [phone] Commentsdiscuss long-term vaccines Electronic Signatures: Jluis Rinaldi (Resident)) (Signed 28-Jan-2020 17:14) Authored: Discharge Orders, Hospital Course (Home Care/Gold Form), Provider FINAL REVIEW of Orders, Appointments, Gold Form - School Plant Consultant Summary Last Updated: 28-Jan-2020 17:14 by Jluis Rinaldi (Resident)) Normal [facility] CALCIUM, IONIZEDon 0 CALCIUM,IONIZED 1.17 mmol/L Normal 1.10 - 1.33 [facility] Comment on above: Result Comment: The performance characteristics of ionized calcium tested in heparinized plasma or serum have been validated by the individual laboratory site where testing is performed. Testing on heparinized plasma or serum is not approved by the FDA; however, such approval is not necessary. Performed By: #### E SRWS #### [facility] [address] [place] [address] CBCon 01-24-2020 Erythrocyte distribution width (RBC) [Ratio] 16.0 % High 11.5 - 14.5 [facility] Comment on above: Performed By: #### E SRWS #### [facility] [address] [place] [address] Hematocrit (Bld) [Volume fraction] 30.6 % Low 41.0 - 52.0 [facility] Comment on above: Performed By: #### E SRWS #### [facility] [address] [place] [address] Hemoglobin (Bld) [Mass/Vol] 10.6 g/dL Low 13.5 - 17.5 [facility] Comment on above: Performed By: #### E SRWS #### [facility] [address] [place] [address] MCHC (RBC) [Mass/Vol] 34.6 g/dL Normal 32.0 - 36.0 [facility] Comment on above: Performed By: #### E SRWS #### [facility] [address] [place] [address] MCV (RBC) [Entitic vol] 88 fL Normal 80 - 100 [facility] Comment on above: Performed By: #### E SRWS #### [facility] [address] [place] [address] Nucleated RBC/100 WBC (Bld) [Ratio] 0.2 /100 WBC Normal 0.0-0.0 [facility] Comment on above: Performed By: #### E SRWS #### [facility] [address] [place] [address] Platelets (Bld) [#/Vol] 211 10*3/uL Normal 150 - 450 [facility] Comment on above: Performed By: #### E SRWS #### [facility] [address] [place] [address] RBC (Bld) [#/Vol] 3.47 x10E12/L Low 4.50 - 5.90 [facility] Comment on above: Performed By: #### E SRWS #### [facility] [address] [place] [address] WBC (Bld) [#/Vol] 24.4 10*3/uL High 4.4 - 11.3 [facility] Comment on above: Performed By: #### E SRWS #### [facility] [address] [place] [address] Erythrocyte distribution width (RBC) [Ratio] 16.6 % High 11.5 - 14.5 [facility] Comment on above: Performed By: #### E SRWS #### [facility] [address] [place] [address] Hematocrit (Bld) [Volume fraction] 29.4 % Low 41.0 - 52.0 [facility] Comment on above: Performed By: #### E SRWS #### [facility] [address] [place] [address] Hemoglobin (Bld) [Mass/Vol] 9.8 g/dL Low 13.5 - 17.5 [facility] Comment on above: Performed By: #### E SRWS #### [facility] [address] [place] [address] MCHC (RBC) [Mass/Vol] 33.3 g/dL Normal 32.0 - 36.0 [facility] Comment on above: Performed By: #### E SRWS #### [facility] [address] [place] [address] MCV (RBC) [Entitic vol] 92 fL Normal 80 - 100 [facility] Comment on above: Performed By: #### E SRWS #### [facility] [address] [place] [address] Nucleated RBC/100 WBC (Bld) [Ratio] 0.2 /100 WBC Normal 0.0-0.0 [facility] Comment on above: Performed By: #### E SRWS #### [facility] [address] [place] [address] Platelets (Bld) [#/Vol] 199 10*3/uL Normal 150 - 450 [facility] Comment on above: Performed By: #### E SRWS #### [facility] [address] [place] [address] RBC (Bld) [#/Vol] 3.19 x10E12/L Low 4.50 - 5.90 [facility] Comment on above: Performed By: #### E SRWS #### [facility] [address] [place] [address] WBC (Bld) [#/Vol] 21.3 10*3/uL High 4.4 - 11.3 [facility] Comment on above: Performed By: #### E SRWS #### [facility] [address] [place] [address] COAGULATION SCREENon 020 aPTT Coag (Bld) [Time] 21 s Low 25 - 35 [facility] Comment on above: Result Comment: Note new reference range as of 11/11/2019. THE APTT IS NO LONGER USED FOR MONITORING UNFRACTIONATED HEPARIN THERAPY. FOR MONITORING HEPARIN THERAPY, USE THE HEPARIN ASSAY. Performed By: #### E SRWS #### [facility] [address] [place] [address] INR Coag (PPP) [Relative time] 1.1 {INR} Normal 0.9 - 1.1 [facility] Comment on above: Performed By: #### E SRWS #### [facility] [address] [place] [address] PT Coag (PPP) [Time] 12.9 s Normal 10.1 - 13.3 [facility] Comment on above: Result Comment: Note new reference range as of 11/11/2019. Performed By: #### E SRWS #### [facility] [address] [place] [address] Clinical Event Note-Rashmi Franklinyuko 01-24-2020 Clinical Event Note-Overnight Events Clinical Event: Clinical Event Note: TopicOvernight Events Details Overnight team called due to patients worsening abdominal pain. On exam, abd exam remains largely the same with diffuse tenderness but non-peritonitic however patients distention is worse and the patient is having some volume bilious emesis and repeated burping. KUB with distended loops of small bowel consistent with ileus. NGT placed at the bedside with 150ml of emesis during placement and 150ml of output in tube. Patient states he feels better. Will continue to monitor. Sen Colindres MD General Surgery PGY-4 Electronic Signatures: Sen Colindres ( (Resident)) (Signed 24-Jan-2020 03:11) Authored: Clinical Event Last Updated: 24-Jan-2020 03:11 by Sen Colindres ( (Resident)) Normal [facility] Daily Progress Note - Critic al Care-SICUon 01-24-2020 Daily Progress Note - Critical Care-SICU Service: Critical Care Service: ServiceSICU Subjective Data: ID Statement: CHRISTIANO ZHENG is a 24 year old Male who is Hospital Day # 4 and ICU Day #1 and POD #3 for 1. laparoscopic splenectomy. -Abdominal pain and distension overnight; Vomited 150cc + NG output of 150cc. KUB showed ileus. Free air noted on Upright Chest X-ray. -Continues to be in pain, requiring 50mcg IV Fentanyl every hour. Objective Data: Objective Information T PRBPSpO2 [id number]/73563% Date/Time01/23: 11::: 11:00 Range(36.4C - 37.3C ) (89 - 135 ) (10 - 33 ) (92 - 148 )/ (59 - 89 ) (89% - 100% ) As of 24-Jan-2020 08:00:00, patient is on 2 L/min of oxygen via nasal cannula. Highest temp of 37.3 C was recorded at 01/22 18:00 Pain reported at 01/23 10:01: 7 = Severe ---- Intake and Output ----- Mn/Dy/[facility]Out[facility] Jan 24, 2020 6:00 [id number] Jan 23, 2020 10:00 [id number] Jan 23, 2020 2:00 [id number] The Intake and Output Totals for the last 24 hours are: [facility]OutNov[facility] [id number] Drain and tube details (included in I&O totals) 1225 cc Indwelling Catheter - Urethral( 24-Jan-2020 06:00:00 ) Date: Weight/Scale Type: 24-Jan-2020 06:0081 kg / bed 23-Jan-2020 05:0079.7 kg / bed 22-Jan-2020 09:5474.6 kg 21-Jan-2020 18:5174.6 kg / standing Physical Exam: Physical Exam: Neurological: AOx3 Cardiovascular: Regular rate and rhythm Respiratory/Thorax: Non labored breathing on 2L NC Genitourinary: No medina catheter in place Gastrointestinal: Abdomen distended, Tender to palpation, worse in the midepigastrium Eyes: Anicteric sclera Allergies: Allergies: morphine: Facial Swelling Dilaudid: Rash Medications: Medications: Continuous Medications -------- 1. fentaNYL ACETYLENE PLANT OPERATOR 1000 microgram/ NaCL 0.9% 50 mL: 1000 microgram(s) IV ACETYLENE PLANT OPERATOR 2. Lactated Ringers Infusion: 1000 mL IntraVenous Scheduled Medications -------- 1. Bisacodyl Rectal: 10 mg Rectal Daily 2. Iopamidol 76% (ISOVUE 370) -Radiology Contrast): 121.5 mL IntraVenous Push Once 3. Lactated Ringers IV Bolus: 1000 mL IntraVenous Piggyback Once 4. Lactated Ringers IV Bolus: 1000 mL IntraVenous Piggyback Once 5. Lidocaine 5% TransDermal: 1 patch TransDermal Every 24 Hours PRN Medications -------- 1. diphenhydrAMINE Injectable: 25 mg IntraVenous Push Every 6 Hours 2. Naloxone Injectable: 0.2 mg IntraVenous Push Once 3. Ondansetron Injectable: 4 mg IntraVenous Push Every 4 Hours 4. Ondansetron Injectable: 4 mg IntraVenous Push Every 6 Hours 5. oxyCODONE Immediate Release: 5 mg Oral Every 4 Hours 6. oxyCODONE Immediate Release: 10 mg Oral Every 4 Hours 7. Promethazine IV Piggy Back: 12.5 mg IntraVenous Piggyback Every 6 Hours Currently Suspended Medications -------- 1. Heparin SubCutaneous: 5000 unit(s) SubCutaneous Every 8 Hours Recent Lab Results: Results: CBC: 01/24/2020 04:06 \ Hgb / \ 10.6 L / WBC Plt 24.4 H 211 / Hct \ / 30.6 L \ RBC: 3.47 L MCV: 88 Neutrophil %: 81.2 RFP: 01/24/2020 04:06 NA+ Cl- BUN / 139 101 9 / -------- Glucose --- 109 H K+ HCO3- Creat \ 4.1 30 0.65 \ Calcium : 8.7Anion Gap : 12 Albumin : 3.9 Phos : 2.4 L Coagulation: 01/24/2020 04:06 PT / 12.9 / -------< INR < 1.1 PTT\ 21 L \ Fibrinogen: 673 H Results: UNSIGNED REPORT Xray Chest 1 View [Jan 24 2020 9:05AM] Impression: Curvilinear lucency underlying the right hemidiaphragm concerning for subdiaphragmatic free air. Correlation with physical exam is advised. Hazy opacities overlying bases. Findings are likely insurance claim representative atelectasis although infectious process not excluded. The critical information above was relayed directly by [Dr. Leslie] [by telephone] to [Dr. Salmeron] On [01/24/2020] at [9 a.m.] with readback verification. UNSIGNED REPOR Xray Chest 1 View [Jan 24 2020 9:05AM] Xray Abdomen AP View [Jan 24 2020 5:43AM] Impression: There is a large round gas bubble projecting over the periumbilical abdomen which does not follow the expected contour scratch of the surrounding aerated bowel loops. This finding is incompletely characterized on the supine radiograph however can be seen with pneumoperitoneum. Can obtain upright radiographs for better characterization. There are numerous prominent appearing bowel loops throughout the abdomen, correlate with concern of ileus versus obstruction. Assessment and Plan: Daily Risk Screen: Does patient have a central lineno Does patient have an indwelling urinary catheterno Is the patient intubatedno Assessment/Plan: Assessment/Plan: Assessment: Pt s/p splenectomy c/b bleeding. Patient had embolization of splenic artery with large hematoma formation intraabdominal. Now, patient has severe abdominal pain with distension. Overnight KUB consistent with ileus. Upright CXR confirmed presence of free air under the diaphragm, most likely sequalae of recent laparoscopic surgery. Patient, currently doing well with medical management of ileus. H/H stable and wnl. Neuro: AOx3 - PRN pain medications IV will change to PO when tolerated - Fentanyl 50mcg q1h controlling pain well; patient requesting it often, so will transition to Fentanyl ACETYLENE PLANT OPERATOR: -50mcg loading dose -25mcg ACETYLENE PLANT OPERATOR dose -15 min lockout -Max 100mcg/hour - Lidoderm patch CV: -HDS; continue to monitor Pulmonary: no history of pulmonary disease. Former smoker. - Saturating well on 2L NC; plan to wean off nasal cannula. - PRN albuterol GI: Patient now with Ileus -Make NPO - No indication for NG tube placement now - Zofran and Promethazine prn for nausea - Will discontinue miralax and po dulcolax; ok to have suppositories - Free air seen on upright KUB; Patient evaluated by Dr. Mcmanus. -Not recommending CT scan of abdomen at this time. Air likely secondary to recent laparoscopic procedure. : - RFP daily - Replace electrolyte per SICU protocol Endo: no hx of thyroid dysfunction or diabetes -Glucose <180 -ISS Heme:. -H/H stable at 10.6/30.6 -Leukocytosis likely reactive. Patient afebrile, with no other signs of acute infection. -Will continue to monitor -resuscitate as necessary ID: - afebrile -will require vaccination for encapsulated organisms prior to discharge Lines: 3 PIV PPx: -Continue to hold SubQ heparin as per surgery team recs -SCDs Dispo: Transfer to floor today Eugenia Dinh MD PGY-1 SICU Code Status: Code StatusFull Code Comorbidities: Comorbidity: Other Signature/Cosignature/At testation: Note Completion: I am a: Resident/Fellow Attending AttestationI saw and evaluated the patient. I personally obtained the boss and critical portions of the history and physical exam or was physically present for boss and critical portions performed by the resident/fellow. I reviewed the resident/fellows documentation and discussed the patient with the resident/fellow. I agree with the resident/fellows medical decision making as documented in the note. I personally evaluated the patient [id number] Critical Care PatientI have reviewed and evaluated the most recent data and results, personally examined the patient, and formulated the plan of care as presented above. This patient was critically ill and required continued critical care treatment. Teaching and any separately billable procedures are not included in the time calculation. Billing Provider Critical Care Time35 minute(s) Primary Critical Care Issue/Treatment (See Assessment and Plan for greater detail)-- For the nature of the critical condition and treatment, this documentation has been prepared by the attending physician/EVELYN- billing provider of these critical care services. Electronic Signatures: Eugenia Dinh (Resident)) (Signed 24-Jan-2020 12:39) Authored: Service, Subjective Data, Objective Data, Assessment and Plan, Signature/Cosignature/At testation Annette Irving) (Signed 24-Jan-2020 13:11) Authored: Signature/Cosignature/At testation Co-Signer: Assessment and Plan, Signature/Cosignature/At testation Last Updated: 24-Jan-2020 13:11 by Annette Irving) Normal [facility] Daily Progress Note-Zeke licea 01-24-2020 Daily Progress Note-Zeke Surgery Service: Surgery Subjective Data: CHRISTIANO ZHENG is a 24 year old Male who is Hospital Day # 4 and POD #3 for 1. laparoscopic splenectomy. NGT placed last night but removed shortly after due to discomfort. Still having abdominal pain, +hiccups, no further emesis. Passing some flatus. Objective Data: Objective Information: T PRBPSpO2 [id number]/87136% Date/Time01/23:::: 10:00 Range(36.4C - 37.3C ) (89 - 135 ) (10 - 33 ) (92 - 148 )/ (54 - 89 ) (89% - 100% ) As of 24-Jan-2020 08:00:00, patient is on 2 L/min of oxygen via nasal cannula. Highest temp of 37.3 C was recorded at 01/22 18:00 ---- Intake and Output ----- Mn/Dy/Year TimeIntakeOutputNet Jan 24, 2020 6:00 [id number] Jan 23, 2020 10:00 [id number] Jan 23, 2020 2:00 [id number] The Intake and Output Totals for the last 24 hours are: IntakeOutputNet [id number] Physical Exam: Constitutional: Patient lying comfortably in bed. Eyes: EOMI Respiratory/Thorax: Non labored breathing on 2L NC Cardiovascular: RRR Gastrointestinal: abdomen TTP diffusely, soft, distended, incisions c/d/i Genitourinary: Medina in place with clear yellow urine Extremities: No lower extremity edema, SCDs on Neurological: Alert and oriented Psychological: Appropriate mood and affect Medication: Medications: Continuous Medications -------- 1. fentaNYL ACETYLENE [employer]ANT OPERATOR 1000 microgram/ NaCL 0.9% 50 mL: 1000 microgram(s) IV ACETYLENE [employer] OPERATOR 2. Lactated Ringers Infusion: 1000 mL IntraVenous Scheduled Medications -------- 1. Bisacodyl Rectal: 10 mg Rectal Daily 2. Iopamidol 76% (ISOVUE 370) -Radiology Contrast): 121.5 mL IntraVenous Push Once 3. Lactated Ringers IV Bolus: 1000 mL IntraVenous Piggyback Once 4. Lactated Ringers IV Bolus: 1000 mL IntraVenous Piggyback Once 5. Lidocaine 5% TransDermal: 1 patch TransDermal Every 24 Hours PRN Medications -------- 1. Calcium Chloride IVPB: 0.5 gram(s) IntraVenous Piggyback Every 8 Hours 2. Calcium Chloride IVPB: 1 gram(s) IntraVenous Piggyback Every 8 Hours 3. diphenhydrAMINE Injectable: 25 mg IntraVenous Push Every 6 Hours 4. Magnesium Sulfate 2 gram/Sterile Water 50 mL Premix Soln: 2 gram(s) IntraVenous Piggyback Every 6 Hours 5. Magnesium Sulfate 4 gram/Sterile Water 100 mL Premix Soln: 4 gram(s) IntraVenous Piggyback Every 6 Hours 6. Naloxone Injectable: 0.2 mg IntraVenous Push Once 7. Ondansetron Injectable: 4 mg IntraVenous Push Every 6 Hours 8. Ondansetron Injectable: 4 mg IntraVenous Push Every 4 Hours 9. oxyCODONE Immediate Release: 5 mg Oral Every 4 Hours 10. oxyCODONE Immediate Release: 10 mg Oral Every 4 Hours 11. Potassium Chloride 20 mEq/Sterile Water 100 mL Premix IVPB: 20 mEq IntraVenous Piggyback Every 6 Hours 12. Promethazine IV Piggy Back: 12.5 mg IntraVenous Piggyback Every 6 Hours Currently Suspended Medications -------- 1. Heparin SubCutaneous: 5000 unit(s) SubCutaneous Every 8 Hours Recent Lab Results: Results: I have reviewed these laboratory results: Complete Blood Count 24-Jan-2020 04:06:00 ResultValue White Blood Cell Count 24.4 H Nucleated Erythrocyte Count 0.2 Red Blood Cell Count 3.47 L HGB 10.6 L HCT 30.6 L MCV 88 MCHC 34.6 PLT 211 RDW-CV 16.0 H Renal Function Panel 24-Jan-2020 04:06:00 ResultValue Glucose, Serum 109 H NA 139 K 4.1 CL 101 Bicarbonate, Serum 30 Anion Gap, Serum 12 BUN 9 CREAT 0.65 GFR-Non >60 GFR- >60 Calcium, Serum 8.7 Phosphorus, Serum 2.4 L ALB 3.9 Fibrinogen Assay 24-Jan-2020 04:06:00 ResultValue Fibrinogen 673 H Magnesium, Serum 08-Aug-2020 04:06:00 ResultValue Magnesium, Serum 2.38 Radiology Results: Results: Impression: [Curvilinear lucency underlying the right hemidiaphragm concerning for subdiaphragmatic free air. Correlation with physical exam is advised. Hazy opacities overlying bases. Findings are likely insurance claim representative atelectasis although infectious process not excluded.] [The critical information above was relayed directly by [Dr. Leslie] [by telephone] to [Dr. Salmeron] On [01/24/2020] at [9 a.m.] with readback verification.] UNSIGNED REPOR Xray Chest 1 View [Jan 24 2020 9:05AM] Impression: [There is a large round gas bubble projecting over the periumbilical abdomen which does not follow the expected contour scratch of the surrounding aerated bowel loops. This finding is incompletely characterized on the supine radiograph however can be seen with pneumoperitoneum. Can obtain upright radiographs for better characterization. [There are numerous prominent appearing bowel loops throughout the abdomen, correlate with concern of ileus versus obstruction..] ] Xray Abdomen AP View [Jan 24 2020 5:43AM] Assessment and Plan: Assessment: Christiano Zheng is a 24yo M with hereditary spherocytosis now POD3 from laparoscopic splenectomy complicated but post op bleed requiring IR embolization on 01/21. Currently, HDS. H/H stable and is having an ileus. Free air on plain films from laparoscopy and was present on post-op CT scan. Plan: Neuro: -Tylenol, oxy as needed, fentanyl as needed for pain - pain management per ICU team CV: - Continue monitoring hemodynamic status Pulm: - IS q1h GI: - NPO with ice chips, can hold off on NGT since not having emesis at this time - Discontinue Miralax and stool softeners - Zofran for nausea : - Continue MIVF - Maintain medina - Strict I/Os MSK: OOB, ambulate DVT ppx: SCDs; hold chemical ppx Dispo: ok to transfer to [facility] on [address] Martina Kaufman PGY-4 [place] p: [phone] Signature/Cosignature/At testation: Note Completion: I am a: Resident/Fellow Attending AttestationI saw and evaluated the patient. I personally obtained the boss and critical portions of the history and physical exam or was physically present for boss and critical portions performed by the resident/fellow. I reviewed the resident/fellows documentation and discussed the patient with the resident/fellow. I agree with the resident/fellows medical decision making as documented in the note. I personally evaluated the patient [id number] Comments/ Additional Findings Hg stable. not had bowel movement. abdomen benign. will transfer to floor Electronic Signatures: Annette Kaufman (Resident)) (Signed 24-Jan-2020 11:02) Authored: Service, Subjective Data, Objective Data, Assessment and Plan, Signature/Cosignature/At testation Eagle Mcmanus) (Signed 25-Jan-2020 20:14) Authored: Signature/Cosignature/At testation Co-Signer: Service, Subjective Data, Objective Data, Assessment and Plan, Signature/Cosignature/At testation Last Updated: 25-Jan-2020 20:14 by Eagle Mcmanus) Normal [facility] FIBRINOGENon 01-24-2020 FIBRINOGEN 673 mg/dL High 200 - 400 [facility] Comment on above: Performed By: #### E SRWS #### [facility] [address] [place] [address] MAGNESIUMon 01-24-2020 Magnesium [Mass/Vol] 2.38 mg/dL Normal 1.60 - 2.40 [facility] Comment on above: Performed By: #### E SRWS #### [facility] [address] [place] [address] RENAL FUNCTION PANELon 01-23 Albumin [Mass/Vol] 3.9 g/dL Normal 3.4 - 5.0 [facility] Comment on above: Performed By: #### E SRWS #### [facility] [address] [place] [address] Anion gap [Moles/Vol] 12 mmol/L Normal 10 - 20 [facility] Comment on above: Performed By: #### E SRWS #### [facility] [address] [place] [address] Calcium [Mass/Vol] 8.7 mg/dL Normal 8.6 - 10.6 [facility] Comment on above: Performed By: #### E SRWS #### [facility] [address] [place] [address] Chloride [Moles/Vol] 101 mmol/L Normal 98 - 107 [facility] Comment on above: Performed By: #### E SRWS #### [facility] [address] [place] [address] Creatinine [Mass/Vol] 0.65 mg/dL Normal 0.50 - 1.30 [facility] Comment on above: Performed By: #### E SRWS #### [facility] [address] [place] [address] GFR- AM. >60 Normal >60 [facility] Comment on above: Result Comment: CALC ULATIONS OF ESTIMATED GFR ARE PERFORMED USING THE MDRD STUDY EQUATION FOR THE IDMS-TRACEABLE CREATININE METHODS. CLIN CHEM 2007;53:766-72 Performed By: #### E SRWS #### [facility] [address] [place] [address] GFR-NON AM. >60 Normal >60 [facility] Comment on above: Performed By: #### E SRWS #### [facility] [address] [place] [address] Glucose [Mass/Vol] 109 mg/dL High 74 - 99 [facility] Comment on above: Performed By: #### E SRWS #### [facility] [address] [place] [address] HCO3 (Bld) [Moles/Vol] 30 mmol/L Normal 21 - 32 [facility] Comment on above: Performed By: #### E SRWS #### [facility] [address] [place] [address] Phosphate [Mass/Vol] 2.4 mg/dL Low 2.5 - 4.9 [facility] Comment on above: Result Comment: The performance characteristics of phosphorus testing in heparinized plasma have been validated by the individual laboratory site where testing is performed. Testing on heparinized plasma is not approved by the FDA; however, such approval is not necessary. Performed By: #### E SRWS #### [facility] [address] [place] [address] Potassium [Moles/Vol] 4.1 mmol/L Normal 3.5 - 5.3 [facility] Comment on above: Result Comment: MILD HEMOLYSIS DETECTED. The result may be falsely elevated due to hemolysis or other interferents. Clinical correlation is recommended. Repeat testing may be considered. Performed By: #### E SRWS #### [facility] [address] [place] [address] Sodium [Moles/Vol] 139 mmol/L Normal 136 - 145 [facility] Comment on above: Performed By: #### E SRWS #### [facility] [address] [place] [address] Urea nitrogen [Mass/Vol] 9 mg/dL Normal 6 - 23 [facility] Comment on above: Performed By: #### E SRWS #### [facility] [address] [place] [address] TH ABDOMEN AP VIEWon 020 TH ABDOMEN AP VIEW Patient Name: CHRISTIANO ZHENG STUDY: ABDOMEN AP VIEW; 01/24/2020 2:34 am INDICATION: nausea and eructation. COMPARISON: None. ACCESSION NUMBER(S): [id number] ORDERING CLINICIAN: SEN COLINDRES FINDINGS: There is embolization material projecting over the expected location of the stomach. There is a large round gas bubble projecting over the periumbilical abdomen which does not follow the expected contour scratch of the surrounding aerated bowel loops. This finding is concerning for pneumoperitoneum. There are numerous prominent appearing bowel loops throughout the abdomen, correlate with concern of ileus versus obstruction.. There is subcutaneous air overlying the left lateral abdominal wall. Visualized lungs are clear. Osseous structures demonstrate no acute bony changes. IMPRESSION: 1. There is a large round gas bubble projecting over the periumbilical abdomen which does not follow the expected contour it has of the surrounding aerated bowel loops. This finding is incompletely characterized on the supine radiograph however can be seen with pneumoperitoneum. This is consistent with a component of central pneumoperitoneum. This may be postoperative in nature but correlate with any concern for perforation. 2. There are numerous prominent appearing bowel loops throughout the abdomen, correlate with concern of ileus versus obstruction.. I personally reviewed the images/study and I agree with the findings as stated. This study was interpreted at [facility], [place], [place]. Findings were communicated by Clark Rosado MD (echocardiography radiology technologist) to Dr. Gupta on 01/24/2020 at 05:40 with readback verification. Electronically signed by: Spencer BARRETO MD Normal [facility] TH CHEST 1 VIEWon 01-24-2020 TH CHEST 1 VIEW Patient Name: CHRISTIANO ZHENG STUDY: CHEST 1 VIEW; 01/24/2020 6:44 am INDICATION: upright if possible, rule out free air. COMPARISON: KUB 01/24/2020, 2:34 a.m. ACCESSION NUMBER(S): [id number] ORDERING CLINICIAN: JIM GUPTA FINDINGS: Upright AP radiograph was obtained. The cardiomediastinal silhouette is within normal limits. There are hazy opacities overlying lung bases.. There is no sizable pleural effusions or pneumothorax. No acute osseous abnormalities. There is curvilinear lucency underlying the right hemidiaphragm. There is subcutaneous emphysema overlying the left hemithorax. Again seen are multiple mildly dilated loops of bowel the upper abdomen. IMPRESSION: 1. Curvilinear lucency underlying the right hemidiaphragm concerning for subdiaphragmatic free air. Correlation with physical exam is advised. 2. Hazy opacities overlying bases. Findings are likely insurance claim representative atelectasis although infectious process not excluded. The critical information above was relayed directly by Dr. Leslie by telephone to Dr. Salmeron On 01/24/2020 at 9 a.m. with readback verification. Electronically signed by: Spencer BARRETO MD Normal [facility] CALCIUM, IONIZEDon 0 CALCIUM,IONIZED 1.13 mmol/L Normal 1.10 - 1.33 [facility] Comment on above: Result Comment: The performance characteristics of ionized calcium tested in heparinized plasma or serum have been validated by the individual laboratory site where testing is performed. Testing on heparinized plasma or serum is not approved by the FDA; however, such approval is not necessary. Performed By: #### U MELISA #### [facility] [address] [place] [address] CBCon 01-23-2020 Erythrocyte distribution width (RBC) [Ratio] 17.0 % High 11.5 - 14.5 [facility] Comment on above: Performed By: #### E SRWS #### [facility] [address] [place] [address] Hematocrit (Bld) [Volume fraction] 26.4 % Low 41.0 - 52.0 [facility] Comment on above: Performed By: #### E SRWS #### [facility] [address] [place] [address] Hemoglobin (Bld) [Mass/Vol] 8.9 g/dL Low 13.5 - 17.5 [facility] Comment on above: Performed By: #### E SRWS #### [facility] [address] [place] [address] MCHC (RBC) [Mass/Vol] 33.7 g/dL Normal 32.0 - 36.0 [facility] Comment on above: Performed By: #### E SRWS #### [facility] [address] [place] [address] MCV (RBC) [Entitic vol] 92 fL Normal 80 - 100 [facility] Comment on above: Performed By: #### E SRWS #### [facility] [address] [place] [address] Nucleated RBC/100 WBC (Bld) [Ratio] 0.3 /100 WBC Normal 0.0-0.0 [facility] Comment on above: Performed By: #### E SRWS #### [facility] [address] [place] [address] Platelets (Bld) [#/Vol] 158 10*3/uL Normal 150 - 450 [facility] Comment on above: Performed By: #### E SRWS #### [facility] [address] [place] [address] RBC (Bld) [#/Vol] 2.87 x10E12/L Low 4.50 - 5.90 [facility] Comment on above: Performed By: #### E SRWS #### [facility] [address] [place] [address] WBC (Bld) [#/Vol] 20.9 10*3/uL High 4.4 - 11.3 [facility] Comment on above: Performed By: #### E SRWS #### [facility] [address] [place] [address] Erythrocyte distribution width (RBC) [Ratio] 16.9 % High 11.5 - 14.5 [facility] Comment on above: Performed By: #### West BILI #### [facility] [address] [place] [address] Hematocrit (Bld) [Volume fraction] 26.0 % Low 41.0 - 52.0 [facility] Comment on above: Performed By: #### West BILI #### [facility] [address] [place] [address] Hemoglobin (Bld) [Mass/Vol] 9.0 g/dL Low 13.5 - 17.5 [facility] Comment on above: Performed By: #### West BILI #### [facility] [address] [place] [address] MCHC (RBC) [Mass/Vol] 34.6 g/dL Normal 32.0 - 36.0 [facility] Comment on above: Performed By: #### West BILI #### [facility] [address] [place] [address] MCV (RBC) [Entitic vol] 90 fL Normal 80 - 100 [facility] Comment on above: Performed By: #### West BILI #### [facility] [address] [place] [address] Nucleated RBC/100 WBC (Bld) [Ratio] 0.3 /100 WBC Normal 0.0-0.0 [facility] Comment on above: Performed By: #### D BILI #### [facility] [address] [place] [address] Platelets (Bld) [#/Vol] 139 10*3/uL Low 150 - 450 [facility] Comment on above: Performed By: #### [place] BILI #### [facility] [address] [place] [address] RBC (Bld) [#/Vol] 2.88 x10E12/L Low 4.50 - 5.90 [facility] Comment on above: Performed By: #### D BILI #### [facility] [address] [place] [address] WBC (Bld) [#/Vol] 20.3 10*3/uL High 4.4 - 11.3 [facility] Comment on above: Performed By: #### D BILI #### [facility] [address] [place] [address] Erythrocyte distribution width (RBC) [Ratio] 16.8 % High 11.5 - 14.5 [facility] Comment on above: Performed By: #### U MELISA #### [facility] [address] [place] [address] Hematocrit (Bld) [Volume fraction] 27.2 % Low 41.0 - 52.0 [facility] Comment on above: Performed By: #### U MELISA #### [facility] [address] [place] [address] Hemoglobin (Bld) [Mass/Vol] 9.3 g/dL Low 13.5 - 17.5 [facility] Comment on above: Performed By: #### U MELISA #### [facility] [address] [place] [address] MCHC (RBC) [Mass/Vol] 34.2 g/dL Normal 32.0 - 36.0 [facility] Comment on above: Performed By: #### U MELISA #### [facility] [address] [place] [address] MCV (RBC) [Entitic vol] 89 fL Normal 80 - 100 [facility] Comment on above: Performed By: #### U MELISA #### [facility] [address] [place] [address] Nucleated RBC/100 WBC (Bld) [Ratio] 0.4 /100 WBC Normal 0.0-0.0 [facility] Comment on above: Performed By: #### U MELISA #### [facility] [address] [place] [address] Platelets (Bld) [#/Vol] 121 10*3/uL Low 150 - 450 [facility] Comment on above: Performed By: #### U MELISA #### [facility] [address] [place] [address] RBC (Bld) [#/Vol] 3.04 x10E12/L Low 4.50 - 5.90 [facility] Comment on above: Performed By: #### U MELISA #### [facility] [address] [place] [address] WBC (Bld) [#/Vol] 18.6 10*3/uL High 4.4 - 11.3 [facility] Comment on above: Performed By: #### U MELISA #### [facility] [address] [place] [address] Erythrocyte distribution width (RBC) [Ratio] 17.1 % High 11.5 - 14.5 [facility] Comment on above: Performed By: #### U MELISA #### [facility] [address] [place] [address] Hematocrit (Bld) [Volume fraction] 19.6 % Low 41.0 - 52.0 [facility] Comment on above: Performed By: #### U MELISA #### [facility] [address] [place] [address] Hemoglobin (Bld) [Mass/Vol] 7.0 g/dL Low 13.5 - 17.5 [facility] Comment on above: Performed By: #### U MELISA #### [facility] [address] [place] [address] MCHC (RBC) [Mass/Vol] 35.7 g/dL Normal 32.0 - 36.0 [facility] Comment on above: Performed By: #### U MELISA #### [facility] [address] [place] [address] MCV (RBC) [Entitic vol] 86 fL Normal 80 - 100 [facility] Comment on above: Performed By: #### U MELISA #### [facility] [address] [place] [address] Nucleated RBC/100 WBC (Bld) [Ratio] 0.3 /100 WBC Normal 0.0-0.0 [facility] Comment on above: Performed By: #### U MELISA #### [facility] [address] [place] [address] Platelets (Bld) [#/Vol] 124 10*3/uL Low 150 - 450 [facility] Comment on above: Performed By: #### U MELISA #### [facility] [address] [place] [address] RBC (Bld) [#/Vol] 2.29 x10E12/L Low 4.50 - 5.90 [facility] Comment on above: Performed By: #### U MELISA #### [facility] [address] [place] [address] WBC (Bld) [#/Vol] 16.1 10*3/uL High 4.4 - 11.3 [facility] Comment on above: Performed By: #### U MELISA #### [facility] [address] [place] [address] CBC AND DIFFERENTIALon 01-22 % AUTOMATED IMMATURE GRAN 0.8 % Normal 0.0 - 0.9 [facility] Comment on above: Result Comment: Sisi ture Granulocyte Count (IG) includes promyelocytes, myelocytes and metamyelocytes but does not include bands. Percent differential counts (%) should be interpreted in the context of the absolute cell counts (cells/L). Performed By: #### E SRWS #### [facility] [address] [place] [address] Basophils (Bld) [#/Vol] 0.02 10*3/uL Normal 0.00 - 0.10 [facility] Comment on above: Performed By: #### E SRWS #### [facility] [address] [place] [address] Basophils/100 WBC (Bld) 0.1 % Normal 0.0 - 2.0 [facility] Comment on above: Performed By: #### E SRWS #### [facility] [address] [place] [address] Eosinophils (Bld) [#/Vol] 0.01 10*3/uL Normal 0.00 - 0.70 [facility] Comment on above: Performed By: #### E SRWS #### [facility] [address] [place] [address] Eosinophils/100 WBC (Bld) 0.0 % Normal 0.0 - 6.0 [facility] Comment on above: Performed By: #### E SRWS #### [facility] [address] [place] [address] Erythrocyte distribution width (RBC) [Ratio] 17.0 % High 11.5 - 14.5 [facility] Comment on above: Performed By: #### E SRWS #### [facility] [address] [place] [address] Hematocrit (Bld) [Volume fraction] 27.6 % Low 41.0 - 52.0 [facility] Comment on above: Performed By: #### E SRWS #### [facility] [address] [place] [address] Hemoglobin (Bld) [Mass/Vol] 9.3 g/dL Low 13.5 - 17.5 [facility] Comment on above: Performed By: #### E SRWS #### [facility] [address] [place] [address] Lymphocytes (Bld) [#/Vol] 1.26 10*3/uL Normal 1.20 - 4.80 [facility] Comment on above: Performed By: #### E SRWS #### [place] [address] [place] [address] Lymphocytes/100 WBC (Bld) 5.7 % Normal 13.0 - 44.0 [facility] Comment on above: Performed By: #### E SRWS #### [facility] [address] [place] [address] MCHC (RBC) [Mass/Vol] 33.7 g/dL Normal 32.0 - 36.0 [facility] Comment on above: Performed By: #### E SRWS #### [facility] [address] [place] [address] MCV (RBC) [Entitic vol] 92 fL Normal 80 - 100 [facility] Comment on above: Performed By: #### E SRWS #### [facility] [address] [place] [address] Monocytes (Bld) [#/Vol] 2.68 10*3/uL High 0.10 - 1.00 [facility] Comment on above: Performed By: #### E SRWS #### [facility] [address] [place] [address] Monocytes/100 WBC (Bld) 12.2 % Normal 2.0 - 10.0 [facility] Comment on above: Performed By: #### E SRWS #### [facility] [address] [place] [address] Neutrophils (Bld) [#/Vol] 17.80 10*3/uL High 1.20 - 7.70 [facility] Comment on above: Performed By: #### E SRWS #### [facility] [address] [place] [address] Neutrophils/100 WBC (Bld) 81.2 % Normal 40.0 - 80.0 [facility] Comment on above: Performed By: #### E SRWS #### [facility] [address] [place] [address] Nucleated RBC/100 WBC (Bld) [Ratio] 0.3 /100 WBC Normal 0.0-0.0 [facility] Comment on above: Performed By: #### E SRWS #### [facility] [address] [place] [address] Platelets (Bld) [#/Vol] 160 10*3/uL Normal 150 - 450 [facility] Comment on above: Performed By: #### E SRWS #### [facility] [address] [place] [address] RBC (Bld) [#/Vol] 3.00 x10E12/L Low 4.50 - 5.90 [facility] Comment on above: Performed By: #### E SRWS #### [facility] [address] [place] [address] WBC (Bld) [#/Vol] 22.0 10*3/uL High 4.4 - 11.3 [facility] Comment on above: Performed By: #### E SRWS #### [facility] [address] [place] [address] COAGULATION SCREENon 020 aPTT Coag (Bld) [Time] Canceled Normal [facility] Comment on above: Order Comment: TEST COAGULATION SCREEN WAS CANCELLED, 01/23/2020 07:00 NO SPECIMEN RECEIVEDIN LAB. Result Comment: Note new reference range as of 11/11/2019. THE APTT IS NO LONGER USED FOR MONITORING UNFRACTIONATED HEPARIN THERAPY. FOR MONITORING HEPARIN THERAPY, USE THE HEPARIN ASSAY. Performed By: #### D BILI #### [facility] [address] [place] [address] INR Coag (PPP) [Relative time] Canceled Normal [facility] Comment on above: Order Comment: TEST COAGULATION SCREEN WAS CANCELLED, 01/23/2020 07:00 NO SPECIMEN RECEIVEDIN LAB. Performed By: #### D BILI #### [facility] [address] [facility] [place] [address] PT Coag (PPP) [Time] Canceled Normal [facility] Comment on above: Order Comment: TEST COAGULATION SCREEN WAS CANCELLED, 01/23/2020 07:00 NO SPECIMEN RECEIVEDIN LAB. Result Comment: Note new reference range as of 11/11/2019. Performed By: #### D BILI #### [facility] [address] [place] [address] aPTT Coag (Bld) [Time] 19 s Low 25 - 35 [facility] Comment on above: Result Comment: Note new reference range as of 11/11/2019. THE APTT IS NO LONGER USED FOR MONITORING UNFRACTIONATED HEPARIN THERAPY. FOR MONITORING HEPARIN THERAPY, USE THE HEPARIN ASSAY. Performed By: #### U MELISA #### [facility] [address] [place] [address] INR Coag (PPP) [Relative time] 1.2 {INR} High 0.9 - 1.1 [facility] Comment on above: Performed By: #### U MELISA #### [facility] [address] [place] [address] PT Coag (PPP) [Time] 14.0 s High 10.1 - 13.3 [facility] Comment on above: Result Comment: Note new reference range as of 11/11/2019. Performed By: #### U MELISA #### [facility] [address] [facility] [place] [address] Clinical Event Note-Concern for Bleedingon 01-23-2020 Clinical Event Note-Concern for Bleeding Clinical Event: Clinical Event Note: TopicConcern for Bleeding Details Was called by the SICU for drop of H/H to 7.0 from 8.9. He is increasingly tachycardic to 130's from earlier in the day of 100-110. Earlier in the day underwent embolization of splenic artery. Continues to make excellent urine and no episodes of hypotension. Abdomen remains diffusely tender on exam. Right groin soft - no evidence of hemotoma. Will plan for transfusion of two units of PRBC and post-transfusion cbc. Patient s/w chief resident, Dr. Jens Chino MD PGY-2 General Surgery Update: Post-transfusion CBC H/H 9.3 continues to be tachycardic most likely related to pain at this point. Electronic Signatures: Moy Chino ( (Resident)) (Signed 23-Jan-2020 04:47) Authored: Clinical Event Last Updated: 23-Jan-2020 04:47 by Moy Chino (Resident)) Normal [facility] Daily Progress Note - Critic al Careon 01-23-2020 Daily Progress Note - Critical Care Subjective Data: ID Statement: CHRISTIANO ZHENG is a 24 year old Male who is Hospital Day # 3 and ICU Day #2 and POD #2 for 1. laparoscopic splenectomy. Objective Data: Objective Information T PRBPSpO2 [id number]/4791% Date/Time01/22 4:008 6:008 6:008 6:008/7 6:00 Range(36.3C - 37.4C ) (101 - 136 ) (8 - 45 ) (84 - 163 )/ (47 - 99 ) (91% - 100% ) As of 23-Jan-2020 06:00:00, patient is on 2 L/min of oxygen via nasal cannula. Highest temp of 37.4 C was recorded at 01/22 0:00 Pain reported at 01/22 4:00: 4 = Moderate ---- Intake and Output ----- Mn/Dy/Year TimeIntakeOutputNet Jan 23, 2020 6:00 [id number] Jan 22, 2020 10:00 [id number] Jan 22, 2020 2:00 [id number] The Intake and Output Totals for the last 24 hours are: IntakeOutputNet [id number] Drain and tube details (included in I&O totals) 2735 cc Indwelling Catheter - Urethral( 23-Jan-2020 06:00:00 ) Date: Weight/Scale Type: 23-Jan-2020 05:0079.7 kg / bed 22-Jan-2020 09:5474.6 kg 21-Jan-2020 18:5174.6 kg / standing 21-Jan-2020 10:0974.6 kg / standing 21-Jan-2020 10:0974.6 kg Allergies: Allergies: morphine: Facial Swelling Dilaudid: Rash Recent Lab Results: Results: CBC: 01/23/2020 03:41 \ Hgb / \ 9.3 L / WBC Plt 18.6 H 121 L / Hct \ / 27.2 L \ RBC: 3.04 L MCV: 89 BMP: 01/22/2020 08:09 NA+ Cl- BUN / 138 103 17 / -------- Glucose --- 191 H K+ HCO3- Creat \ 4.2 24 1.08 \ Calcium : 8.1 L Anion Gap : 15 RFP: 01/23/2020 03:41 NA+ Cl- BUN / 139 104 12 / -------- Glucose --- 123 H K+ HCO3- Creat \ 4.1 31 0.86 \ Calcium : 8.0 LAnion Gap : 8 L Albumin : 3.8 Phos : 2.8 Coagulation: 01/23/2020 03:41 PT / 14.0 H / -------< INR < 1.2 H PTT\ 19 L \ Fibrinogen: 248 Recent Arterial Blood Gas Results 01/22/2020 12:51 [id number] pH7.36 qUT060 SO299 Base Excess-2.1 [id number] Assessment and Plan: Daily Risk Screen: Does patient have a central lineno Does patient have an indwelling urinary catheteryes Plan for indwelling urinary catheter removal todayyes Is the patient intubatedno Assessment/Plan: Assessment/Plan: Neuro: AOx3. -No need for sedation -PRN pain medications IV will change to PO when tolerated - Fentanyl [employer] controlling pain well CV: no history of heart disease. HD stable after receiving 3 units of pRBCs, 3L crystal and 250cc albumin on 01/20. Overnight on 01/21, patient became tachycardic and hypotensive, Hg decresed from 8.9 to 7.0. Patient was given 2 units of pRBCs and Hg uptitrated to 8.3. Hg six hours later remained stable at 9.0. No signs or symptoms of bleeding. -EKG/telemetry monitoring -MAPs > 65 - Two Units PRBC overnight -- patient HD stable, no need for further transfusions. f/u CBC stable. Pulmonary: no history of pulmonary disease. Former smoker. -Titrate oxygen to SpO2 92% -PRN albuterol - 2L NC currently -- transition to RA GI: Splenectomy for hereditary spherocytosis. POD #1 from splenectomy c/b bleeding. Patient had embolization of splenic artery with large hematoma formation intraabdominal. Patient is complaining of severe pain. Overnight 01/21, patient had another episode of bleeding, which required 2 units of pRBCs, however stabilized with transfusion without signs or continued bleeding. -Start clear liquid diet and advance as tolerated -No need for PPI -Will need vaccination prior to discharge : no renal disease. no evidence of EVA. Patient producing adequate urine. Had medina placed on 01/21 after IR embolization. -remove medina and f/u to determine if patient voids spontaneously as had urinary retention on 01/21. -RFP daily -Replace electrolyte per SICU protocol Endo: no hx of thyroid dysfunction or diabetes -Glucose <180 -ISS Heme: acute blood loss anemia and thrombocytopenia. Received 3 units of pRBCs on 01/20. 2 units of pRBCs on 01/21 for bleeding. Has active3 type/screen. -f/u CBC and coagulation -- stable after transfusion -resuscitate as necessary ID: asplenic patient. No evidence of active infection. patient has leukocytosis of 18.6 which is expected due to nature of surgery. afebrile. continue to trend temperature q4hrs. -will require vaccination prior to discharge -finished perioperative abx Lines: 3 PIV Today's goals: HD stable transfer to [facility] today, discussed with surgical team who also agrees Farzadjosselny Koenig PGY4/CA3 SICU 51587 Code Status: Code StatusFull Code Signature/Cosignature/At testation: Note Completion: I am a: Resident/Fellow Attending AttestationI saw and evaluated the patient. I personally obtained the boss and critical portions of the history and physical exam or was physically present for boss and critical portions performed by the resident/fellow. I reviewed the resident/fellows documentation and discussed the patient with the resident/fellow. I agree with the resident/fellows medical decision making as documented in the note. I personally evaluated the patient [id number] Critical Care PatientI have reviewed and evaluated the most recent data and results, personally examined the patient, and formulated the plan of care as presented above. This patient was critically ill and required continued critical care treatment. Teaching and any separately billable procedures are not included in the time calculation. Billing Provider Critical Care Time35 minute(s) Primary Critical Care Issue/Treatment (See Assessment and Plan for greater detail)-- For the nature of the critical condition and treatment, this documentation has been prepared by the attending physician/EVELYN- billing provider of these critical care services. Electronic Signatures: Annette Irving) (Signed 23-Jan-2020 13:17) Authored: Signature/Cosignature/At testation Co-Signer: Subjective Data, Objective Data, Assessment and Plan, Signature/Cosignature/At testation William Gonzalez (MED STUD) (Signed 23-Jan-2020 08:34) Authored: Subjective Data, Objective Data, Assessment and Plan, Signature/Cosignature/At testation Farzad Koenig (Resident)) (Signed 23-Jan-2020 12:54) Entered: Assessment and Plan, Signature/Cosignature/At testation Authored: Subjective Data, Objective Data, Assessment and Plan, Signature/Cosignature/At testation Last Updated: 23-Jan-2020 13:17 by Annette rIving) Normal [facility] Daily Progress Note-Surgeryo n 01-23-2020 Daily Progress Note-Surgery Service: Surgery Subjective Data: MARCECHRISTIANO is a 24 year old Male who is Hospital Day # 3 and POD #2 for 1. laparoscopic splenectomy. Additional Information: Patient's Hgb dropped to 7.0 overnight. Patient received additional 2 units RBCs. Morning CBC 9.3. Patient seen and examined at bedside this morning. He reports feeling better. He states he is still having pain in his abdomen, mainly LLQ but that has improved from yesterday. Objective Data: Objective Information: T PRBPSpO2 [id number]/57207% Date/Time01/22: 7: 7: 7: 7:00 Range(36.3C - 37.4C ) (101 - 136 ) (8 - 45 ) (104 - 163 )/ (47 - 99 ) (91% - 100% ) As of 23-Jan-2020 06:00:00, patient is on 2 L/min of oxygen via nasal cannula. Highest temp of 37.4 C was recorded at 01/22 0:00 Pain reported at 01/22 4:00: 4 = Moderate ---- Intake and Output ----- Mn/Dy/Year TimeIntakeOutputNet Jan 23, 2020 6:00 [id number] Jan 22, 2020 10:00 [id number] Jan 22, 2020 2:00 [id number] The Intake and Output Totals for the last 24 hours are: [facility]akeOutun[facility] [id number] Physical Exam: Constitutional: Patient lying comfortably in bed. Not in acute distress. Eyes: EOMI Respiratory/Thorax: Non labored breathing on RA Cardiovascular: Tachycardic Gastrointestinal: abdomen TTP, soft with mild distention, incisions c/d/i Genitourinary: Medina in place with clear yellow urine Musculoskeletal: Moving extremities well Extremities: No lower extremity edema, SCDs on Neurological: Alert and oriented Psychological: Appropriate mood and affect Skin: Pale. Non diaphoretic. Recent Lab Results: Results: CBC: 01/23/2020 03:41 \ Hgb / \ 9.3 L / WBC Plt 18.6 H 121 L / Hct \ / 27.2 L \ RBC: 3.04 L MCV: 89 BMP: 01/22/2020 08:09 NA+ Cl- BUN / 138 103 17 / -------- Glucose --- 191 H K+ HCO3- Creat \ 4.2 24 1.08 \ Calcium : 8.1 L Anion Gap : 15 RFP: 01/23/2020 03:41 NA+ Cl- BUN / 139 104 12 / -------- Glucose --- 123 H K+ HCO3- Creat \ 4.1 31 0.86 \ Calcium : 8.0 LAnion Gap : 8 L Albumin : 3.8 Phos : 2.8 Coagulation: 01/23/2020 03:41 PT / 14.0 H / -------< INR < 1.2 H PTT\ 19 L \ Fibrinogen: 248 Recent Arterial Blood Gas Results 01/22/2020 12:51 [id number] pH7.36 dDV135 SO299 Base Excess-2.1 Fhdnswlxiph24.2 Assessment and Plan: Comorbidities: Comorbidity: Other Assessment: Christiano Zheng is a 24yo M with hereditary spherocytosis now POD2 from laparoscopic splenectomy. Yesterday, he underwent splenic artery branch emobolization and is recovering in the ICU. He is currently stable at this time. Plan: Neuro: tylenol; fentanyl for pain - pain management per ICU team - diphenhydramine for itching CV: - Patient continues to remain tachycardic - HDS at this time - Continue to monitor HR and BP frequently Pulm: on RA; supplement NC as needed GI: - NPO with ice chips - Zofran for nausea : - Urine output via medina adequate - Continue to monitor output DVT ppx: SCDs; omit pharmacologic due to recent bleeding Fluids/Electrolytes: - Continue IV fluids - per ICU management MSK: Continue bedrest Dispo: pending transfer to [facility] when stable Discussed with Dr. Martina Sylvester, DO PGY-1 [facility] p: [phone] Signature/Cosignature/At testation: Note Completion: I am a: Resident/Fellow Attending AttestationI saw and evaluated the patient. I personally obtained the boss and critical portions of the history and physical exam or was physically present for boss and critical portions performed by the resident/fellow. I reviewed the resident/fellows documentation and discussed the patient with the resident/fellow. I agree with the resident/fellows medical decision making as documented in the note. I personally evaluated the patient [id number] Electronic Signatures: Eagle Mcmanus) (Signed 23-Jan-2020 08:13) Authored: Signature/Cosignature/At testation Co-Signer: Service, Subjective Data, Objective Data, Assessment and Plan, Signature/Cosignature/At testation Rosie Sylvester (Resident)) (Signed 23-Jan-2020 08:02) Authored: Service, Subjective Data, Objective Data, Assessment and Plan, Signature/Cosignature/At testation Last Updated: 23-Jan-2020 08:13 by Eagle Mcmanus) Normal [facility] FIBRINOGENon 01-23-2020 FIBRINOGEN Canceled Normal [facility] Comment on above: Order Comment: TEST FIBRINOGEN WAS CANCELLED, 01/23/2020 07:00 NO SPECIMEN RECEIVED IN LAB. Performed By: #### D BILI #### [facility] [address] [place] [address] FIBRINOGEN 248 mg/dL Normal 200 - 400 [facility] Comment on above: Performed By: #### U MELISA #### [facility] [address] [place] [address] GLUCOSE-POCTon 01-23-2020 Glucose [Mass/Vol] 116 mg/dL High 74 - 99 [facility] Comment on above: Result Comment: Glu2 : Fingertip - Capillar Performed By: #### U MELISA #### [facility] [address] [place] [address] LACTATEon 01-23-2020 Lactate [Moles/Vol] Canceled Normal [facility] Comment on above: Order Comment: TEST LACTATE WAS CANCELLED, 01/23/2020 05:03 NO SPECIMEN RECEIVED IN LAB. Result Comment: Dacia puncture immediately after or during the administration of Metamizole may lead to falsely low results. Testing should be performed immediately prior to Metamizole dosing. Performed By: #### D BILI #### [facility] [address] [place] [address] MAGNESIUMon 01-23-2020 Magnesium [Mass/Vol] 2.26 mg/dL Normal 1.60 - 2.40 [facility] Comment on above: Performed By: #### D BILI #### [facility] [address] [place] [address] RENAL FUNCTION PANELon 01-22 Albumin [Mass/Vol] 3.8 g/dL Normal 3.4 - 5.0 [facility] Comment on above: Performed By: #### D BILI #### [facility] [address] [place] [address] Anion gap [Moles/Vol] 8 mmol/L Low 10 - 20 [facility] Comment on above: Performed By: #### D BILI #### [facility] [address] [place] [address] Calcium [Mass/Vol] 8.0 mg/dL Low 8.6 - 10.6 [facility] Comment on above: Performed By: #### D BILI #### [facility] [address] [place] [address] Chloride [Moles/Vol] 104 mmol/L Normal 98 - 107 [facility] Comment on above: Performed By: #### D BILI #### [facility] [address] [place] [address] Creatinine [Mass/Vol] 0.86 mg/dL Normal 0.50 - 1.30 [facility] Comment on above: Performed By: #### D BILI #### [facility] [address] [place] [address] GFR- AM. >60 Normal >60 [facility] Comment on above: Result Comment: CALC ULATIONS OF ESTIMATED GFR ARE PERFORMED USING THE MDRD STUDY EQUATION FOR THE IDMS-TRACEABLE CREATININE METHODS. CLIN CHEM 2007;53:766-72 Performed By: #### D BILI #### [facility] [address] [place] [address] GFR-NON AM. >60 Normal >60 [facility] Comment on above: Performed By: #### D BILI #### [facility] [address] [place] [address] Glucose [Mass/Vol] 123 mg/dL High 74 - 99 [facility] Comment on above: Performed By: #### D BILI #### [facility] [address] [place] [address] HCO3 (Bld) [Moles/Vol] 31 mmol/L Normal 21 - 32 [facility] Comment on above: Performed By: #### D BILI #### [facility] [address] [place] [address] Phosphate [Mass/Vol] 2.8 mg/dL Normal 2.5 - 4.9 [facility] Comment on above: Result Comment: The performance characteristics of phosphorus testing in heparinized plasma have been validated by the individual laboratory site where testing is performed. Testing on heparinized plasma is not approved by the FDA; however, such approval is not necessary. Performed By: #### D BILI #### [facility] [address] [place] [address] Potassium [Moles/Vol] 4.1 mmol/L Normal 3.5 - 5.3 [facility] Comment on above: Performed By: #### D BILI #### [facility] [address] [place] [address] Sodium [Moles/Vol] 139 mmol/L Normal 136 - 145 [facility] Comment on above: Performed By: #### D BILI #### [facility] [address] [place] [address] Urea nitrogen [Mass/Vol] 12 mg/dL Normal 6 - 23 [facility] Comment on above: Performed By: #### D BILI #### [facility] [address] [place] [address] 3RD ORD/ABD-Aon 01-22-2020 3RD ORD/ABD-A Patient Name: CHRISTIANO ZHENG STUDY: VASCULAR EMBO/OCCL, INCLUDE S; ADD //A-P; EXT-ART/UNI-A; EACH-ADD; EXT/UNI; VISCERAL; ULTRASOUND GUIDANCE FOR VASCULAR ACCESS; 3RD ORD/ABD-A; 01/22/2020 12:28 pm PROCEDURES: 1. Right common femoral artery access with ultrasound guidance 2. Splenic artery angiogram 3. Distal splenic artery angiogram 4. Coil embolization of branch vessels off the distal splenic artery (3rd and 4th order branches) 5. Post intervention completion angiogram of the splenic artery 6. Right common femoral artery angiogram prior to use of Vascade arteriotomy closure device INDICATION: 24-year-old male status post splenectomy for hereditary spherocytosis anemia who presents with postsurgical worsening of hemodynamics including marked hypotension and need for blood products. CTA was performed which reveals active arterial extravasation in the surgical bed. COMPARISON: Same-day CTA of the abdomen and pelvis ACCESSION NUMBER(S): [id number]; [id number]; [id number]; [id number]; [id number]; [id number]; [id number]; [id number]; [id number] ORDERING CLINICIAN: FARZAD KOENIG OPERATORS: Dr. Sg Hurt (Attending) /Susi Borges (Resident) CONSENT: The patient/patient's POA/next of kin was informed of the nature of the proposed procedure. The purposes, alternatives, risks, and benefits were explained and discussed. All questions were answered and consent was obtained. RADIATION EXPOSURE: Fluoroscopy time: 10.2 min. Dose: 238.3 mGy. Dose Area Product (DAP): 40.4 Gycm2 SEDATION: Moderate conscious IV sedation services (supervision of administration, induction, and maintenance) were provided by the physician performing the procedure with intravenous fentanyl 100 mcg and versed 2 mg for 150 minutes. The physician was assisted by an independent trained observer, an interventional radiology nurse, in the continuous monitoring of patient level of consciousness and physiologic status. MEDICATION/CONTRAST: No additional TIME OUT: A time out was performed immediately prior to procedure start with the interventional team, correctly identifying the patient name, date of , MRN, procedure, anatomy (including marking of site and side), patient position, procedure consent form, relevant laboratory and imaging test results, antibiotic administration, safety precautions, and procedure-specific equipment needs. CONTRAST: 40 mL of Optiray 300 EMBOLIZATION MATERIAL: Penumbra Keira 2 mm x 2 cm soft coil (1) Penumbra 60 cm packing coil (1) ACCESS SITE: Right common femoral artery with ultrasound guidance COMPLICATIONS: None immediate TECHNIQUE: The patient was placed in supine position on the angiography table and right groin was prepped and draped in sterile fashion. The skin and subcutaneous tissue overlying the right common femoral artery were infiltrated with 1% lidocaine for local anesthetic. Using ultrasound guidance, the right common femoral artery was punctured using a micropuncture needle. A 0.018 wire was advanced through the needle into the artery. The needle was exchanged for a 5 Cameroonian transitional catheter. The inner dilator and the 0.018 wire were removed and a 0.035 wire was advanced into the abdominal aorta. The transitional catheter was exchanged for a 5 Cameroonian vascular sheath, which was attached to a heparinized pressure bag of normal saline. Right common femoral arteriogram was performed which demonstrates adequate arterial access for use of closure device, cephalad to the bifurcation and caudad to the inferior epigastric artery origin. A 5 Cameroonian Cobra C2 catheter was advanced over the wire and used to cannulate the celiac artery and subsequently the splenic artery. Digital subtraction angiography was performed which reveals focus of active arterial extravasation arising from a branch of the distal splenic artery in the surgical bed correlating with findings seen on same day CTA. A Penumbra Lantern microcatheter was coaxially loaded and advanced over a 0.016 Fathom guidewire into the distal splenic artery. Digital subtraction angiography was performed which revealed aforementioned findings to better detail. At this time, microcatheter was advanced into the 3rd and 4th order branch vessel off the distal splenic artery with supply the area of active arterial extravasation. This was subsequently embolized using coils listed in the embolization material section. Proximally, coil pack extended to the level of the distal splenic artery. Post intervention completion angiogram of the splenic artery reveals evidence of stasis and resolution of previously seen active arterial extravasation. Base catheter and microcatheter were removed as a unit. At the beginning of the case, a right common femoral arteriogram had already been performed through the sheath side arm to document location of the arteriotomy. Arteriotomy closure was performed using a combination of Vascade closure device and prolonged manual pressure. Skin site was covered with a sterile dressing. The patient tolerated the procedure well and there were no immediate complications. FINDINGS: Please see technique section above. IMPRESSION: 1. Splenic artery angiogram reveals focus of active arterial extravasation in a branch vessel off the distal splenic artery in the surgical bed correlating with findings seen on same day CTA. 2. Successful image guided coil embolization of the same as detailed above resulting in stasis and interval resolution of active arterial extravasation. Electronically signed by: FREDDIE HURT MD [facility] ADD /A-Felice 01-22-2020 ADD /A-P Patient Name: CHRISTIANO ZHENG STUDY: VASCULAR EMBO/OCCL, INCLUDE S; ADD //A-P; EXT-ART/UNI-A; EACH-ADD; EXT/UNI; VISCERAL; ULTRASOUND GUIDANCE FOR VASCULAR ACCESS; 3RD ORD/ABD-A; 01/22/2020 12:28 pm PROCEDURES: 1. Right common femoral artery access with ultrasound guidance 2. Splenic artery angiogram 3. Distal splenic artery angiogram 4. Coil embolization of branch vessels off the distal splenic artery (3rd and 4th order branches) 5. Post intervention completion angiogram of the splenic artery 6. Right common femoral artery angiogram prior to use of Vascade arteriotomy closure device INDICATION: 24-year-old male status post splenectomy for hereditary spherocytosis anemia who presents with postsurgical worsening of hemodynamics including marked hypotension and need for blood products. CTA was performed which reveals active arterial extravasation in the surgical bed. COMPARISON: Same-day CTA of the abdomen and pelvis ACCESSION NUMBER(S): [id number]; [id number]; [id number]; [id number]; [id number]; [id number]; [id number]; [id number]; [id number] ORDERING CLINICIAN: FARZAD KOENIG OPERATORS: Dr. Sg Hurt (Attending) /Susi Borges (Resident) CONSENT: The patient/patient's POA/next of kin was informed of the nature of the proposed procedure. The purposes, alternatives, risks, and benefits were explained and discussed. All questions were answered and consent was obtained. RADIATION EXPOSURE: Fluoroscopy time: 10.2 min. Dose: 238.3 mGy. Dose Area Product (DAP): 40.4 Gycm2 SEDATION: Moderate conscious IV sedation services (supervision of administration, induction, and maintenance) were provided by the physician performing the procedure with intravenous fentanyl 100 mcg and versed 2 mg for 150 minutes. The physician was assisted by an independent trained observer, an interventional radiology nurse, in the continuous monitoring of patient level of consciousness and physiologic status. MEDICATION/CONTRAST: No additional TIME OUT: A time out was performed immediately prior to procedure start with the interventional team, correctly identifying the patient name, date of , MRN, procedure, anatomy (including marking of site and side), patient position, procedure consent form, relevant laboratory and imaging test results, antibiotic administration, safety precautions, and procedure-specific equipment needs. CONTRAST: 40 mL of Optiray 300 EMBOLIZATION MATERIAL: Penumbra Keira 2 mm x 2 cm soft coil (1) Penumbra 60 cm packing coil (1) ACCESS SITE: Right common femoral artery with ultrasound guidance COMPLICATIONS: None immediate TECHNIQUE: The patient was placed in supine position on the angiography table and right groin was prepped and draped in sterile fashion. The skin and subcutaneous tissue overlying the right common femoral artery were infiltrated with 1% lidocaine for local anesthetic. Using ultrasound guidance, the right common femoral artery was punctured using a micropuncture needle. A 0.018 wire was advanced through the needle into the artery. The needle was exchanged for a 5 Cameroonian transitional catheter. The inner dilator and the 0.018 wire were removed and a 0.035 wire was advanced into the abdominal aorta. The transitional catheter was exchanged for a 5 Cameroonian vascular sheath, which was attached to a heparinized pressure bag of normal saline. Right common femoral arteriogram was performed which demonstrates adequate arterial access for use of closure device, cephalad to the bifurcation and caudad to the inferior epigastric artery origin. A 5 Cameroonian Cobra C2 catheter was advanced over the wire and used to cannulate the celiac artery and subsequently the splenic artery. Digital subtraction angiography was performed which reveals focus of active arterial extravasation arising from a branch of the distal splenic artery in the surgical bed correlating with findings seen on same day CTA. A Penumbra Lantern microcatheter was coaxially loaded and advanced over a 0.016 Fathom guidewire into the distal splenic artery. Digital subtraction angiography was performed which revealed aforementioned findings to better detail. At this time, microcatheter was advanced into the 3rd and 4th order branch vessel off the distal splenic artery with supply the area of active arterial extravasation. This was subsequently embolized using coils listed in the embolization material section. Proximally, coil pack extended to the level of the distal splenic artery. Post intervention completion angiogram of the splenic artery reveals evidence of stasis and resolution of previously seen active arterial extravasation. Base catheter and microcatheter were removed as a unit. At the beginning of the case, a right common femoral arteriogram had already been performed through the sheath side arm to document location of the arteriotomy. Arteriotomy closure was performed using a combination of Vascade closure device and prolonged manual pressure. Skin site was covered with a sterile dressing. The patient tolerated the procedure well and there were no immediate complications. FINDINGS: Please see technique section above. IMPRESSION: 1. Splenic artery angiogram reveals focus of active arterial extravasation in a branch vessel off the distal splenic artery in the surgical bed correlating with findings seen on same day CTA. 2. Successful image guided coil embolization of the same as detailed above resulting in stasis and interval resolution of active arterial extravasation. Electronically signed by: FREDDIE HURT MD Normal [facility] ARTERIAL FULL PANELon 2019 Anion gap [Moles/Vol] 11 mmol/L Normal 10 - 25 [facility] Comment on above: Performed By: #### L DH #### [facility] [address] [place] [address] BASE EXCESS-BLOOD -2.1 mmol/L Low -2.0 - 3.0 [facility] Comment on above: Performed By: #### L DH #### [facility] [address] [place] [address] CALCIUM,IONIZED 1.13 mmol/L Normal 1.10 - 1.33 [facility] Comment on above: Performed By: #### L DH #### [facility] [address] [place] [address] Chloride [Moles/Vol] 103 mmol/L Normal 98 - 107 [facility] Comment on above: Performed By: #### L DH #### [facility] [address] [place] [address] Glucose [Mass/Vol] 147 mg/dL High 74 - 99 [facility] Comment on above: Performed By: #### L DH #### [facility] [address] [place] [address] Hematocrit (Bld) [Volume fraction] 23.0 % Low 41.0 - 52.0 [facility] Comment on above: Performed By: #### L DH #### [facility] [address] [place] [address] HGB,CALCULATED 7.8 g/dL Low 13.5 - 17.5 [facility] Comment on above: Performed By: #### L DH #### [facility] [address] [place] [address] Lactate [Moles/Vol] 3.4 mmol/L High 0.4 - 2.0 [facility] Comment on above: Performed By: #### L DH #### [facility] [address] [place] [address] Oxygen (Bld) [Partial pressure] 154 mm[Hg] High 85 - 95 [facility] Comment on above: Performed By: #### L DH #### [facility] [address] [place] [address] PCO2 41 mmHg Normal 38 - 42 [facility] Comment on above: Performed By: #### L DH #### [facility] [address] [place] [address] pH (Bld) 7.36 [pH] Low 7.38 - 7.42 [facility] Comment on above: Performed By: #### L DH #### [facility] [address] [place] [address] Potassium [Moles/Vol] 5.3 mmol/L Normal 3.5 - 5.3 [facility] Comment on above: Performed By: #### L DH #### [facility] [address] [place] [address] RBC (Bld) [#/Vol] 23.2 mmol/L Normal 22.0 - 26.0 [facility] Comment on above: Performed By: #### L DH #### [facility] [address] [place] [address] SO2 99 % Normal 94 - 100 [facility] Comment on above: Performed By: #### L DH #### [facility] [address] [place] [address] Sodium [Moles/Vol] 132 mmol/L Low 136 - 145 [facility] Comment on above: Performed By: #### L DH #### [facility] [address] [place] [address] BA CTA ABDOMEN PELVIS WITH C ONT INCL NON CONT IMAGE W POST PROCon 01-22-2020 BA CTA ABDOMEN PELVIS WITH CONT INCL NON CONT IMAGE W POST PROC Patient Name: CHRISTIANO ZHENG STUDY: CTA ABDOMEN PELVIS WITH CONT INCL NON CONT IMAGE W POST PROC; 01/22/2020 9:40 am INDICATION: Bleeding s/p spleenectomy, Lie Flat: Yes. COMPARISON: CT abdomen pelvis dated 11/14/2019 ACCESSION NUMBER(S): [id number] ORDERING CLINICIAN: ANNETTE KAUFMAN TECHNIQUE: CT of the abdomen and pelvis was performed in noncontrast phase. Additional arterial and portal venous phase imaging taken after administration of 95 mL of Isovue 370 without immediate complication. Contiguous axial images were obtained at 3 mm slice thickness through the chest, abdomen and pelvis. Coronal and sagittal reconstructions at 3 mm slice thickness were performed. Maximum intensity projection images and 3D images were generated on stand alone station. FINDINGS: VASCULAR FINDINGS: Status post splenectomy with hyperdense blood products in the surgical bed. There is a focus of contrast blush in the surgical bed noted on arterial phase imaging which demonstrates increase in size on delayed phase imaging, consistent with active arterial extravasation (axial images 177 through 237 of 534). No evidence of acute abdominal aortic syndrome. There is no aneurysmal dilatation of the abdominal aorta. The celiac artery is patent. The superior mesenteric artery is patent. The right hepatic artery originates from the SMA. The inferior mesenteric artery is patent. Single bilateral renal arteries are patent. The bilateral iliac arteries are patent and nonaneurysmal. The visualized common, superficial, and profunda femoral arteries are patent. The IVC is normal. NONVASCULAR FINDINGS: LUNG BASES: Bibasilar dependent atelectasis. The heart is normal in size without pericardial effusion. Visualized distal esophagus appears normal. ABDOMEN: LIVER: The liver is normal in size. No focal liver lesions are seen. BILE DUCTS: The intrahepatic and extrahepatic ducts are not dilated. GALLBLADDER: The gallbladder is surgically absent. PANCREAS: The pancreas appears normal without evidence of ductal dilatation or masses. SPLEEN: Patient is status post splenectomy, with postsurgical changes and evidence of acute contrast extravasation in the surgical bed as described above. ADRENAL GLANDS: Bilateral adrenal glands appear normal. KIDNEYS AND URETERS: The kidneys are normal in size. No hydronephrosis or nephrolithiasis. There are few bilateral renal cysts. There is a small subcentimeter renal cyst too small to definitively characterize within the left kidney. PELVIS: BLADDER: The urinary bladder appears normal without abnormal wall thickening. REPRODUCTIVE ORGANS: Prostate is within normal limits of size. BOWEL: The stomach is unremarkable. The small and large bowel are normal in caliber and demonstrate no wall thickening. The appendix is normal. PERITONEUM/RETROPERITONE UM/LYMPH NODES: There is large volume layering hyperdense ascites, consistent with hemoperitoneum. There is postsurgical pneumoperitoneum, with extensive air below the diaphragm. There is a hematoma in the postsurgical bed status post splenectomy, with evidence of active contrast extravasation and bleed. No enlarged lymph nodes by CT criteria. BONES AND ABDOMINAL WALL: No suspicious osseous lesions are identified. Abdominal wall soft tissues demonstrate postsurgical changes of the left upper abdominal wall including mixed attenuation thickening of the left abdominal wall musculature with few foci of air extending into the left inguinal canal. IMPRESSION: 1. Status post recent splenectomy. Active arterial extravasation in the surgical bed in close proximity to the inferior staple line with moderate amount of hemoperitoneum. Patient was subsequently taken to the IR suite for emergent splenic artery embolization from the CT scanner. 2. Postsurgical changes including pneumoperitoneum and mixed attenuation thickening of the left abdominal wall musculature. The critical findings in this report were communicated to Dr. Rinaldi by Sherman Francis MD (resident) On 01/22/2020 at approximately 10:20 via phone. I personally reviewed the images/study and I agree with the findings as stated. This study was interpreted at [facility], [place], [place]. Electronically signed by: FREDDIE HURT MD Normal [facility] BASIC METABOLIC PANELon 08-0 Anion gap [Moles/Vol] 15 mmol/L Normal 10 - 20 [facility] Comment on above: Performed By: #### C BCDF #### [facility] [address] [place] [address] Calcium [Mass/Vol] 8.1 mg/dL Low 8.6 - 10.6 [facility] Comment on above: Performed By: #### C BCDF #### [facility] [address] [place] [address] Chloride [Moles/Vol] 103 mmol/L Normal 98 - 107 [facility] Comment on above: Performed By: #### C BCDF #### [facility] [address] [place] [address] Creatinine [Mass/Vol] 1.08 mg/dL Normal 0.50 - 1.30 [facility] Comment on above: Performed By: #### C BCDF #### [facility] [address] [place] [address] GFR- AM. >60 Normal >60 [facility] Comment on above: Result Comment: CALC ULATIONS OF ESTIMATED GFR ARE PERFORMED USING THE MDRD STUDY EQUATION FOR THE IDMS-TRACEABLE CREATININE METHODS. CLIN CHEM 2007;53:766-72 Performed By: #### C BCDF #### [facility] [address] [facility] [address] GFR-NON AM. >60 Normal >60 [facility] Comment on above: Performed By: #### C BCDF #### [facility] [address] [place] [address] Glucose [Mass/Vol] 191 mg/dL High 74 - 99 [facility] Comment on above: Performed By: #### C BCDF #### [facility] [address] [place] [address] HCO3 (Bld) [Moles/Vol] 24 mmol/L Normal 21 - 32 [facility] Comment on above: Performed By: #### C BCDF #### [facility] [address] [place] [address] Potassium [Moles/Vol] 4.2 mmol/L Normal 3.5 - 5.3 [facility] Comment on above: Performed By: #### C BCDF #### [facility] [address] [place] [address] Sodium [Moles/Vol] 138 mmol/L Normal 136 - 145 [facility] Comment on above: Performed By: #### C BCDF #### [facility] [address] [place] [address] Urea nitrogen [Mass/Vol] 17 mg/dL Normal 6 - 23 [facility] Comment on above: Performed By: #### C BCDF #### [facility] [address] [place] [address] CALCIUM, IONIZEDon 0 CALCIUM,IONIZED 1.12 mmol/L Normal 1.10 - 1.33 [facility] Comment on above: Result Comment: The performance characteristics of ionized calcium tested in heparinized plasma or serum have been validated by the individual laboratory site where testing is performed. Testing on heparinized plasma or serum is not approved by the FDA; however, such approval is not necessary. Performed By: #### L DH #### [facility] [address] [place] [address] CBCon 01-22-2020 Erythrocyte distribution width (RBC) [Ratio] 17.3 % High 11.5 - 14.5 [facility] Comment on above: Performed By: #### L DH #### [facility] [address] [place] [address] Hematocrit (Bld) [Volume fraction] 25.8 % Low 41.0 - 52.0 [facility] Comment on above: Performed By: #### L DH #### [facility] [address] [place] [address] Hemoglobin (Bld) [Mass/Vol] 8.9 g/dL Low 13.5 - 17.5 [facility] Comment on above: Performed By: #### L DH #### [facility] [address] [place] [address] MCHC (RBC) [Mass/Vol] 34.5 g/dL Normal 32.0 - 36.0 [facility] Comment on above: Performed By: #### L DH #### [facility] [address] [place] [address] MCV (RBC) [Entitic vol] 88 fL Normal 80 - 100 [facility] Comment on above: Performed By: #### L DH #### [facility] [address] [place] [address] Nucleated RBC/100 WBC (Bld) [Ratio] 0.2 /100 WBC Normal 0.0-0.0 [facility] Comment on above: Performed By: #### L DH #### [facility] [address] [place] [address] Platelets (Bld) [#/Vol] 117 10*3/uL Low 150 - 450 [facility] Comment on above: Performed By: #### L DH #### [facility] [address] [place] [address] RBC (Bld) [#/Vol] 2.92 x10E12/L Low 4.50 - 5.90 [facility] Comment on above: Performed By: #### L #### [facility] [address] [facility] [place] [address] WBC (Bld) [#/Vol] 20.5 10*3/uL High 4.4 - 11.3 [facility] Comment on above: Performed By: #### L DH #### [facility] [address] [place] [address] Erythrocyte distribution width (RBC) [Ratio] Canceled Normal [facility] Comment on above: Order Comment: TEST CBC WAS CANCELLED, 01/22/2020 14:55 SPECIMEN CLOTTED.PLEASE RESUBMIT. Performed By: #### L #### [facility] [address] [place] [address] Hematocrit (Bld) [Volume fraction] Canceled Normal [facility] Comment on above: Order Comment: TEST CBC WAS CANCELLED, 01/22/2020 14:55 SPECIMEN CLOTTED.PLEASE RESUBMIT. Performed By: #### L #### [facility] [address] [place] [address] Hemoglobin (Bld) [Mass/Vol] Canceled Normal [facility] Comment on above: Order Comment: TEST CBC WAS CANCELLED, 01/22/2020 14:55 SPECIMEN CLOTTED.PLEASE RESUBMIT. Performed By: #### L DH #### [facility] [address] [place] [address] MCHC (RBC) [Mass/Vol] Canceled Normal [facility] Comment on above: Order Comment: TEST CBC WAS CANCELLED, 01/22/2020 14:55 SPECIMEN CLOTTED.PLEASE RESUBMIT. Performed By: #### L #### [facility] [address] [place] [address] MCV (RBC) [Entitic vol] Canceled Normal [facility] Comment on above: Order Comment: TEST CBC WAS CANCELLED, 01/22/2020 14:55 SPECIMEN CLOTTED.PLEASE RESUBMIT. Performed By: #### L DH #### [facility] [address] [place] [address] Nucleated RBC/100 WBC (Bld) [Ratio] Canceled Normal [facility] Comment on above: Order Comment: TEST CBC WAS CANCELLED, 01/22/2020 14:55 SPECIMEN CLOTTED.PLEASE RESUBMIT. Performed By: #### L DH #### [facility] [address] [place] [address] Platelets (Bld) [#/Vol] Canceled Normal [facility] Comment on above: Order Comment: TEST CBC WAS CANCELLED, 01/22/2020 14:55 SPECIMEN CLOTTED.PLEASE RESUBMIT. Performed By: #### L DH #### [facility] [address] [place] [address] RBC (Bld) [#/Vol] Canceled Normal [facility] Comment on above: Order Comment: TEST CBC WAS CANCELLED, 01/22/2020 14:55 SPECIMEN CLOTTED.PLEASE RESUBMIT. Performed By: #### L DH #### [facility] [address] [place] [address] WBC (Bld) [#/Vol] Canceled Normal [facility] Comment on above: Order Comment: TEST CBC WAS CANCELLED, 01/22/2020 14:55 SPECIMEN CLOTTED.PLEASE RESUBMIT. Performed By: #### L DH #### [facility] [address] [place] [address] Erythrocyte distribution width (RBC) [Ratio] 18.6 % High 11.5 - 14.5 [facility] Comment on above: Performed By: #### C BCDF #### [facility] [address] [facility] [place] [address] Hematocrit (Bld) [Volume fraction] 19.9 % Low 41.0 - 52.0 [facility] Comment on above: Performed By: #### C BCDF #### [facility] [address] [place] [address] Hemoglobin (Bld) [Mass/Vol] 6.8 g/dL Low 13.5 - 17.5 [facility] Comment on above: Performed By: #### C BCDF #### [facility] [address] [place] [address] MCHC (RBC) [Mass/Vol] 34.2 g/dL Normal 32.0 - 36.0 [facility] Comment on above: Performed By: #### C BCDF #### [facility] [address] [place] [address] MCV (RBC) [Entitic vol] 88 fL Normal 80 - 100 [facility] Comment on above: Performed By: #### C BCDF #### [facility] [address] [facility] [place] [address] Nucleated RBC/100 WBC (Bld) [Ratio] 0.0 /100 WBC Normal 0.0-0.0 [facility] Comment on above: Performed By: #### C BCDF #### [facility] [address] [place] [address] Platelets (Bld) [#/Vol] 141 10*3/uL Low 150 - 450 [facility] Comment on above: Performed By: #### C BCDF #### [facility] [address] [place] [address] RBC (Bld) [#/Vol] 2.27 x10E12/L Low 4.50 - 5.90 [facility] Comment on above: Performed By: #### C BCDF #### [facility] [address] [place] [address] WBC (Bld) [#/Vol] 16.2 10*3/uL High 4.4 - 11.3 [facility] Comment on above: Performed By: #### C BCDF #### [facility] [address] [place] [address] Erythrocyte distribution width (RBC) [Ratio] 18.5 % High 11.5 - 14.5 [facility] Comment on above: Performed By: #### R ETIC #### [facility] [address] [place] [address] Hematocrit (Bld) [Volume fraction] 25.2 % Low 41.0 - 52.0 [facility] Comment on above: Performed By: #### R ETIC #### [facility] [address] [place] [address] Hemoglobin (Bld) [Mass/Vol] 8.6 g/dL Low 13.5 - 17.5 [facility] Comment on above: Performed By: #### R ETIC #### [facility] [address] [place] [address] MCHC (RBC) [Mass/Vol] 34.1 g/dL Normal 32.0 - 36.0 [facility] Comment on above: Performed By: #### R ETIC #### [facility] [address] [place] [address] MCV (RBC) [Entitic vol] 85 fL Normal 80 - 100 [facility] Comment on above: Performed By: #### R ETIC #### [facility] [address] [place] [address] Nucleated RBC/100 WBC (Bld) [Ratio] 0.0 /100 WBC Normal 0.0-0.0 [facility] Comment on above: Performed By: #### R ETIC #### [facility] [address] [place] [address] Platelets (Bld) [#/Vol] 160 10*3/uL Normal 150 - 450 [facility] Comment on above: Performed By: #### R ETIC #### [facility] [address] [place] [address] RBC (Bld) [#/Vol] 2.95 x10E12/L Low 4.50 - 5.90 [facility] Comment on above: Performed By: #### R ETIC #### [facility] [address] [place] [address] WBC (Bld) [#/Vol] 17.8 10*3/uL High 4.4 - 11.3 [facility] Comment on above: Performed By: #### R ETIC #### [facility] [address] [place] [address] Erythrocyte distribution width (RBC) [Ratio] 18.6 % High 11.5 - 14.5 [facility] Comment on above: Performed By: #### R ETIC #### [facility] [address] [place] [address] Hematocrit (Bld) [Volume fraction] 32.4 % Low 41.0 - 52.0 [facility] Comment on above: Performed By: #### R ETIC #### [facility] [address] [place] [address] Hemoglobin (Bld) [Mass/Vol] 11.2 g/dL Low 13.5 - 17.5 [facility] Comment on above: Performed By: #### R ETIC #### [facility] [address] [place] [address] MCHC (RBC) [Mass/Vol] 34.6 g/dL Normal 32.0 - 36.0 [facility] Comment on above: Performed By: #### R ETIC #### [facility] [address] [place] [address] MCV (RBC) [Entitic vol] 85 fL Normal 80 - 100 [facility] Comment on above: Performed By: #### R ETIC #### [facility] [address] [place] [address] Nucleated RBC/100 WBC (Bld) [Ratio] 0.1 /100 WBC Normal 0.0-0.0 [facility] Comment on above: Performed By: #### R ETIC #### [facility] [address] [place] [address] Platelets (Bld) [#/Vol] 197 10*3/uL Normal 150 - 450 [facility] Comment on above: Performed By: #### R ETIC #### [facility] [address] [place] [address] RBC (Bld) [#/Vol] 3.82 x10E12/L Low 4.50 - 5.90 [facility] Comment on above: Performed By: #### R ETIC #### [facility] [address] [place] [address] WBC (Bld) [#/Vol] 23.6 10*3/uL High 4.4 - 11.3 [facility] Comment on above: Performed By: #### R ETIC #### [facility] [address] [place] [address] COAGULATION SCREENon 020 aPTT Coag (Bld) [Time] 24 s Low 25 - 35 [facility] Comment on above: Result Comment: Note new reference range as of 11/11/2019. THE APTT IS NO LONGER USED FOR MONITORING UNFRACTIONATED HEPARIN THERAPY. FOR MONITORING HEPARIN THERAPY, USE THE HEPARIN ASSAY. Performed By: #### L DH #### [facility] [address] [place] [address] INR Coag (PPP) [Relative time] 1.3 {INR} High 0.9 - 1.1 [facility] Comment on above: Performed By: #### L DH #### [facility] [address] [place] [address] PT Coag (PPP) [Time] 15.7 s High 10.1 - 13.3 [facility] Comment on above: Result Comment: Note new reference range as of 11/11/2019. Performed By: #### L DH #### [facility] [address] [place] [address] aPTT Coag (Bld) [Time] Canceled Normal [facility] Comment on above: Order Comment: TEST COAGULATION SCREEN WAS CANCELLED, 01/22/2020 10:23 SPECIMENCLOTTED.PLEASE RESUBMIT. Result Comment: Note new reference range as of 11/11/2019. THE APTT IS NO LONGER USED FOR MONITORING UNFRACTIONATED HEPARIN THERAPY. FOR MONITORING HEPARIN THERAPY, USE THE HEPARIN ASSAY. Performed By: #### L DH #### [facility] [address] [place] [address] INR Coag (PPP) [Relative time] Canceled Normal [facility] Comment on above: Order Comment: TEST COAGULATION SCREEN WAS CANCELLED, 01/22/2020 10:23 SPECIMENCLOTTED.PLEASE RESUBMIT. Performed By: #### L DH #### [facility] [address] [facility] [place] [address] PT Coag (PPP) [Time] Canceled Normal [facility] Comment on above: Order Comment: TEST COAGULATION SCREEN WAS CANCELLED, 01/22/2020 10:23 SPECIMENCLOTTED.PLEASE RESUBMIT. Result Comment: Note new reference range as of 11/11/2019. Performed By: #### L #### [facility] [address] [place] [address] aPTT Coag (Bld) [Time] 22 s Low 25 - 35 [facility] Comment on above: Result Comment: Note new reference range as of 11/11/2019. THE APTT IS NO LONGER USED FOR MONITORING UNFRACTIONATED HEPARIN THERAPY. FOR MONITORING HEPARIN THERAPY, USE THE HEPARIN ASSAY. Performed By: #### R ETIC #### [facility] [address] [facility] [place] [address] INR Coag (PPP) [Relative time] 1.2 {INR} High 0.9 - 1.1 [facility] Comment on above: Performed By: #### R ETIC #### [facility] [address] [place] [address] PT Coag (PPP) [Time] 14.4 s High 10.1 - 13.3 [facility] Comment on above: Result Comment: Note new reference range as of 11/11/2019. Performed By: #### R ETIC #### [facility] [address] [facility] [place] [address] COMPREHENSIVE PANELon 2019 Albumin [Mass/Vol] 3.8 g/dL Normal 3.4 - 5.0 [facility] Comment on above: Performed By: #### C BCDF #### [facility] [address] [place] [address] ALP [Catalytic activity/Vol] 33 U/L Normal 33 - 120 [facility] Comment on above: Performed By: #### C BCDF #### [facility] [address] [place] [address] ALT [Catalytic activity/Vol] 12 U/L Normal 10 - 52 [facility] Comment on above: Result Comment: Haily ents treated with Sulfasalazine may generate falsely decreased results for ALT. Performed By: #### C BCDF #### [facility] [address] [place] [address] Anion gap [Moles/Vol] 20 mmol/L Normal 10 - 20 [facility] Comment on above: Performed By: #### C BCDF #### [facility] [address] [facility] [place] [address] AST [Catalytic activity/Vol] 14 U/L Normal 9 - 39 [facility] Comment on above: Performed By: #### C BCDF #### [facility] [address] [facility] [place] [place] [address] Bilirubin [Mass/Vol] 1.1 mg/dL Normal 0.0 - 1.2 [facility] Comment on above: Performed By: #### C BCDF #### [facility] [address] [place] [address] Calcium [Mass/Vol] 8.5 mg/dL Low 8.6 - 10.6 [facility] Comment on above: Performed By: #### C BCDF #### [facility] [address] [place] [address] Chloride [Moles/Vol] 102 mmol/L Normal 98 - 107 [facility] Comment on above: Performed By: #### C BCDF #### [facility] [address] [place] [address] Creatinine [Mass/Vol] 1.22 mg/dL Normal 0.50 - 1.30 [facility] Comment on above: Performed By: #### C BCDF #### [facility] [address] [place] [address] GFR- AM. >60 Normal >60 [facility] Comment on above: Result Comment: CALC ULATIONS OF ESTIMATED GFR ARE PERFORMED USING THE MDRD STUDY EQUATION FOR THE IDMS-TRACEABLE CREATININE METHODS. CLIN CHEM 2007;53:766-72 Performed By: #### C BCDF #### [facility] [address] [place] [address] GFR-NON AM. >60 Normal >60 [facility] Comment on above: Performed By: #### C BCDF #### [facility] [address] [place] [address] Glucose [Mass/Vol] 189 mg/dL High 74 - 99 [facility] Comment on above: Performed By: #### C BCDF #### [facility] [address] [place] [address] HCO3 (Bld) [Moles/Vol] 20 mmol/L Low 21 - 32 [facility] Comment on above: Performed By: #### C BCDF #### [facility] [address] [place] [address] Potassium [Moles/Vol] 4.2 mmol/L Normal 3.5 - 5.3 [facility] Comment on above: Performed By: #### C BCDF #### [facility] [address] [place] [address] Protein [Mass/Vol] 5.0 g/dL Low 6.4 - 8.2 [facility] Comment on above: Performed By: #### C BCDF #### [facility] [address] [place] [address] Sodium [Moles/Vol] 138 mmol/L Normal 136 - 145 [facility] Comment on above: Performed By: #### C BCDF #### [facility] [address] [place] [address] Urea nitrogen [Mass/Vol] 16 mg/dL Normal 6 - 23 [facility] Comment on above: Performed By: #### C BCDF #### [facility] [address] [place] [address] Clinical Event Note-Postop C heck/Acute clinical event late olinda 0806-2020 Clinical Event Note-Postop Check/Acute clinical event late e Clinical Event: Clinical Event Note: TopicPostop Check/Acute clinical event late entry Details Post Procedure Check POD#0 s/p laparoscopic splenectomy S: Pt laying in bed comfortable. Denies f/c/n/v/cp/sob. Pain controlled O: T:, P:, BP:, R: ,O2: Gen: AAOx3, NAD CVS: S1S2 RRR Pulm: CTAB Abd: soft, appropriately tender, nondistended, incisions c/d/i Extrem: No edema, GOLD, SCD in place A/P: 24 yom POD#0 s/p laparoscopic splenectomy 01/22/2020 0100 Update Called bedside following drop in pressure to 85/51. Pt is dizzy and complaining of nausea. The abdominal exam has not been changed except for increased abdominal tenderness. Pt has been seen by myself and Dr. Colindres. I have personally manually checked his blood pressure every 5 minutes for 15 minutes and observed his BP increase to 105/65. - Bolus 1L/30min - Increased IVF to maintenance levels (110cc/hr). - Repeat STAT coags and CBC - Diet change to NPO 01/22/2020 0418 Update Code white has been activated by the pt's nurse when he fainted when trying to get up to the edge of the bed. Drs. Colindres and Lulú and myself arrived to the patient's room shortly after. Pt does not remember fainting. He has not hit his head. Pt endorses increased generalized abdominal pain that radiates to his pelvis. The physical exam findings were increased generalized abdominal tenderness and guarding, incisions are c/d/i. Pt is AAOx3. - 0100 labs with decrease in h/h, somewhat dilutional, but will send labs again now - Draw morning labs now. - continue to monitor. - situation to be discussed with Dr. Mcmanus. Adelso Lopez MD General Surgery PGY-1 [place] Pager: [phone] Electronic Signatures: Sen Colindres (Resident)) (Signed 22-Jan-2020 05:22) Authored: Clinical Event Adelso Lopez (Resident)) (Signed 22-Jan-2020 05:04) Authored: Clinical Event Last Updated: 22-Jan-2020 05:22 by Sen Colindres (Resident)) Normal [facility] Clinical Event Note-Rapid re sponse/code esequiel 01-22-2020 Clinical Event Note-Rapid response/code white Clinical Event: Clinical Event Note: TopicRapid response/code white Details 24 years old male admitted under surgery for elective splenectomy for hereditary spherocytosis .Rapid response was announced as patient experienced witnessed fall , he felt nauseated and asked the nurse to sit as the edge of the bed then he got dizzy ,lightheaded and he slept . No trauma as his nurse was holding him Upon evaluation patient complained of dizziness , light headiness , nausea ,no vomiting , no blurry vision and no LOC . Bed side vitals during the episode(during setting) : BP77 /44 , Pulse 117 bpm , O2 saturation on RA 99% , RR 18 . Vitals (lying ) : BP100/60 mmhg , HR 90 , O2 saturation 99% . Denied dyspnea, chest pain , calf pain , calf swelling , fever , chills and rigors. No headache ,no motor or sensory loss . Patient has abdominal pain 4-5/10 located mainly at the site of his OR . PE Vitals as above Abdomen : soft , non distended , tenderness on superficial palpation , no rigidity or guarding , no rebound tenderness -no calf swelling , redness , skin changes and tenderness Labs : Hb 11.2/12.6 WBCs 23.6/29.9 HCt 34.3 ##Dizziness -Most probably related to orthostasis based on his symptoms and his vitals -2 L of LR -repeat CBC concerning of intra-abdominal bleeding might need imaging -hold Heparin proph. for meanwhile -patient has high risk of infection and sepsis as he had splenectomy although surgery was less than 24 hours , needs close observation -Gen. Surgery team evaluated the patient Electronic Signatures: Francisca Blanco (Resident)) (Signed 22-Jan-2020 06:27) Authored: Clinical Event Last Updated: 22-Jan-2020 06:27 by Francisca Blanco (Resident)) Normal [facility] Daily Progress Note-Surgeryo n 01-22-2020 Daily Progress Note-Surgery Service: Surgery Subjective Data: CHRISTIANO ZHENG is a 24 year old Male who is Hospital Day # 2 and POD #1 for 1. laparoscopic splenectomy. Patient complaining of increased pain in abdomen. Vital signs were unstable and patient became obtunded. Received 4L boluses and 3 pRBCs. Escalated to ICU. Objective Data: Objective Information: T PRBPSpO2 [id number]/69840% Date/Time01/21 13: 14: 14: 14: 14:00 Range(36.1C - 36.6C ) (88 - 136 ) (15 - 45 ) (84 - 144 )/ (51 - 99 ) (94% - 100% ) Pain reported at 01/21 13:30: sleeping ---- Intake and Output ----- Mn/Dy/Year TimeIntakeOutputNet Jan 22, 2020 2:00 [id number] Jan 22, 2020 6:00 [id number] Jan 21, 2020 10:00 [id number] The Intake and Output Totals for the last 24 hours are: IntakeOutputNet [id number] Physical Exam: Constitutional: Well developed, lying in bed, diaphoretic, drowsy Eyes: EOMI Head/Neck: NCAT Respiratory/Thorax: Breathing comfortably on room air Cardiovascular: RR Gastrointestinal: soft, slightly distended, increased TTP incisions C/d/i Musculoskeletal: moving all extremities well Neurological: awake; drowsy Skin: warm and dipahoretic Recent Lab Results: Results: I have reviewed these laboratory results: Lactate, Level 22-Jan-2020 08:09:00 ResultValue Lab Comment: CRITICAL LACT CALLED TO FARTUN QUINTANA--RB 2ID, 01/22/2020 10:22 Lactate, Level 8.1 Complete Blood Count Trending View [id number] 07:38:00 22-Jan-2020 04:38:00 22-Jan-2020 01:19:00 White Blood Cell Count16.2 H 17.8 H 23.6 H Nucleated Erythrocyte Count0.0 0.0 0.1 Red Blood Cell Count2.27 L 2.95 L 3.82 L HGB6.8 L 8.6 L 11.2 L HCT19.9 L 25.2 L 32.4 L MCV88 85 85 MCHC34.2 34.1 34.6 NPB198 L 160 197 RDW-CV18.6 H 18.5 H 18.6 H Assessment and Plan: Comorbidities: Comorbidity: Other Assessment: Christiano Zheng is a 24yo M with hereditary spherocytosis now POD1 from laparoscopic splenectomy. Patient became unstable overnight into this morning with corresponding drop in Hb with fluid resusucitation. Care escalated to ICU. Patient taken to CTA and then to IR for embolizatoin of splenic artery. Now returned to ICU; stable at this time. Plan: Neuro: tylenol; fentanyl for pain - pain management per ICU team - diphenhydramine for itching CV: HDS at this time Pulm: on RA; supplement NC as needed GI: - NPO with ice chips - Zofran for nausea DVT ppx: SCDs; omit pharmacologic due to recent bleeding Fluids/Electrolytes: per ICU managment Dispo: pending transfer to [facility] when stable Discussed with Dr. Martina Rinaldi MD [place] - General Surgery p: [phone] Attending: Pt had successful embolization of spleen This evening when I saw him he was stable. Will watch in ICU overnight Electronic Signatures: Jluis Rinaldi ( (Resident)) (Signed 22-Jan-2020 14:57) Authored: Service, Subjective Data, Objective Data, Assessment and Plan, Signature/Cosignature/At testation Eagle Mcmanus) (Signed 22-Jan-2020 23:02) Authored: Assessment and Plan, Signature/Cosignature/At testation Co-Signer: Service, Subjective Data, Objective Data, Assessment and Plan, Signature/Cosignature/At testation Last Updated: 22-Jan-2020 23:02 by Eagle Mcmanus) [facility] Discharge Planning [id number] 01-22-2020 Discharge Planning Note2 Discharge Planning: Anticipated Discharge [id number] Discharge Planning 01/22/2020 Transitional Care Coordination Progress Note 1638 Patient discussed during interdisciplinary rounds. 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 Vitals stable on 2L O2. 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 pt wanted to keep his belongings at the bedside and signed the belongings form. at the bedside. Strip and flip performed with pt 4 laps sites on his abd as his only incision. No other skin issues upon transfer. (Evelyn Fuentes RN LKD 55) 01/26/2020 Transitional Care Coordination Progress Note: Patient discussed during interdisciplinary rounds. Team members present: TCC and medical staff Plan per Medical/Surgical team: S/p lap Splenectomy 01/20 Payer: [employer]iel Status: inpatient Discharge disposition: home Potential Barriers: none ADOD: 01/27 Femi Ramos RNresidential interior designer Coordinator pager #[phone], 01/28/20 18:28 NURSING DISCHARGE PLANNING NOTE Patient discharged home. IVs removed, discharge instructions reviewed with patient and patient's mother. Patient verbalized understanding of discharge instructions, copy of discharge instructions sent with patient and signed copy of discharge instructions placed in chart. Vaccines given prior to discharge. Prescriptions esubmitted to patient's pharmacy of choice. All belongings in patient's possession at time of discharge. Kathy Chavez RN Assessment: Discharge Planning Assessment [id number] Discharge Planning Assessment Completed byMalena Abbott RN TCC doc halo..[phone] Primary Contact Name and NumberCindy daly - [phone](1) Stated Reason for Admission my operation (2) Arrived FromOR (2) Readmission Within the Last 30 Daysno previous admission in last 30 days PCPDr. Alem Blunt PCP Last Date Seen12/2019 [facility]erred [facility]acy [facility] Medication Adherence/Afford/Obtainy es InsuranceAnthem HMp Lives Withspouse(2) Living Arrangementshouse(2) Recent Falls/ Injury/ Need Assist with Ambulationdenies Prior Level of FunctioningIADL's Resource/Environmental Concernsnone(2) Anticipated [facility]) Services Anticipated at Transition[facility](2) Electronic Signatures: Femi Ramos) (Signed 26-Jan-2020 17:44) Authored: Discharge Planning Note2 Kathy Chavez) (Signed 28-Jan-2020 20:11) Authored: Discharge Planning Note2 Evelyn Fuentes (CN) (Signed 24-Jan-2020 12:36) Authored: Discharge Planning Note2 Malena Abbott (CLIN [facility]) (Signed 22-Jan-2020 16:40) Authored: Discharge Planning Note2 Last Updated: 28-Jan-2020 20:11 by Kathy Chavez (RN) References: 1. Data Referenced From Patient Profile - Preop v2 21-Jan-2020 10:09 2. Data Referenced From Patient Profile - Adult v2 21-Jan-2020 18:51 Normal [facility] EACH-ADDon 01-22-2020 EACH-ADD Patient Name: CHRISTIANO ZHENG STUDY: VASCULAR EMBO/OCCL, INCLUDE S; ADD 2ND/3RD/A-P; EXT-ART/UNI-A; EACH-ADD; EXT/UNI; VISCERAL; ULTRASOUND GUIDANCE FOR VASCULAR ACCESS; 3RD ORD/ABD-A; 01/22/2020 12:28 pm PROCEDURES: 1. Right common femoral artery access with ultrasound guidance 2. Splenic artery angiogram 3. Distal splenic artery angiogram 4. Coil embolization of branch vessels off the distal splenic artery (3rd and 4th order branches) 5. Post intervention completion angiogram of the splenic artery 6. Right common femoral artery angiogram prior to use of Vascade arteriotomy closure device INDICATION: 24-year-old male status post splenectomy for hereditary spherocytosis anemia who presents with postsurgical worsening of hemodynamics including marked hypotension and need for blood products. CTA was performed which reveals active arterial extravasation in the surgical bed. COMPARISON: Same-day CTA of the abdomen and pelvis ACCESSION NUMBER(S): [id number]; [id number]; [id number]; [id number]; [id number]; [id number]; [id number]; [id number]; [id number]; [id number]; [id number] ORDERING CLINICIAN: FARZAD KOENIG OPERATORS: Dr. Sg Hurt (Attending) /Susi Borges (Resident) CONSENT: The patient/patient's POA/next of kin was informed of the nature of the proposed procedure. The purposes, alternatives, risks, and benefits were explained and discussed. All questions were answered and consent was obtained. RADIATION EXPOSURE: Fluoroscopy time: 10.2 min. Dose: 238.3 mGy. Dose Area Product (DAP): 40.4 Gycm2 SEDATION: Moderate conscious IV sedation services (supervision of administration, induction, and maintenance) were provided by the physician performing the procedure with intravenous fentanyl 100 mcg and versed 2 mg for 150 minutes. The physician was assisted by an independent trained observer, an interventional radiology nurse, in the continuous monitoring of patient level of consciousness and physiologic status. MEDICATION/CONTRAST: No additional TIME OUT: A time out was performed immediately prior to procedure start with the interventional team, correctly identifying the patient name, date of , MRN, procedure, anatomy (including marking of site and side), patient position, procedure consent form, relevant laboratory and imaging test results, antibiotic administration, safety precautions, and procedure-specific equipment needs. CONTRAST: 40 mL of Optiray 300 EMBOLIZATION MATERIAL: Penumbra Keira 2 mm x 2 cm soft coil (1) Penumbra 60 cm packing coil (1) ACCESS SITE: Right common femoral artery with ultrasound guidance COMPLICATIONS: None immediate TECHNIQUE: The patient was placed in supine position on the angiography table and right groin was prepped and draped in sterile fashion. The skin and subcutaneous tissue overlying the right common femoral artery were infiltrated with 1% lidocaine for local anesthetic. Using ultrasound guidance, the right common femoral artery was punctured using a micropuncture needle. A 0.018 wire was advanced through the needle into the artery. The needle was exchanged for a 5 Cameroonian transitional catheter. The inner dilator and the 0.018 wire were removed and a 0.035 wire was advanced into the abdominal aorta. The transitional catheter was exchanged for a 5 Cameroonian vascular sheath, which was attached to a heparinized pressure bag of normal saline. Right common femoral arteriogram was performed which demonstrates adequate arterial access for use of closure device, cephalad to the bifurcation and caudad to the inferior epigastric artery origin. A 5 Cameroonian Cobra C2 catheter was advanced over the wire and used to cannulate the celiac artery and subsequently the splenic artery. Digital subtraction angiography was performed which reveals focus of active arterial extravasation arising from a branch of the distal splenic artery in the surgical bed correlating with findings seen on same day CTA. A Penumbra Lantern microcatheter was coaxially loaded and advanced over a 0.016 Fathom guidewire into the distal splenic artery. Digital subtraction angiography was performed which revealed aforementioned findings to better detail. At this time, microcatheter was advanced into the 3rd and 4th order branch vessel off the distal splenic artery with supply the area of active arterial extravasation. This was subsequently embolized using coils listed in the embolization material section. Proximally, coil pack extended to the level of the distal splenic artery. Post intervention completion angiogram of the splenic artery reveals evidence of stasis and resolution of previously seen active arterial extravasation. Base catheter and microcatheter were removed as a unit. At the beginning of the case, a right common femoral arteriogram had already been performed through the sheath side arm to document location of the arteriotomy. Arteriotomy closure was performed using a combination of Vascade closure device and prolonged manual pressure. Skin site was covered with a sterile dressing. The patient tolerated the procedure well and there were no immediate complications. FINDINGS: Please see technique section above. IMPRESSION: 1. Splenic artery angiogram reveals focus of active arterial extravasation in a branch vessel off the distal splenic artery in the surgical bed correlating with findings seen on same day CTA. 2. Successful image guided coil embolization of the same as detailed above resulting in stasis and interval resolution of active arterial extravasation. Electronically signed by: FREDDEI HURT MD [facility] EXT-ART/UNI-Aon 01-22-2020 EXT-ART/UNI-A Patient Name: CHRISTIANO ZHENG STUDY: VASCULAR EMBO/OCCL, INCLUDE S; ADD 2ND/3RD/A-P; EXT-ART/UNI-A; EACH-ADD; EXT/UNI; VISCERAL; ULTRASOUND GUIDANCE FOR VASCULAR ACCESS; 3RD ORD/ABD-A; 01/22/2020 12:28 pm PROCEDURES: 1. Right common femoral artery access with ultrasound guidance 2. Splenic artery angiogram 3. Distal splenic artery angiogram 4. Coil embolization of branch vessels off the distal splenic artery (3rd and 4th order branches) 5. Post intervention completion angiogram of the splenic artery 6. Right common femoral artery angiogram prior to use of Vascade arteriotomy closure device INDICATION: 24-year-old male status post splenectomy for hereditary spherocytosis anemia who presents with postsurgical worsening of hemodynamics including marked hypotension and need for blood products. CTA was performed which reveals active arterial extravasation in the surgical bed. COMPARISON: Same-day CTA of the abdomen and pelvis ACCESSION NUMBER(S): [id number]; [id number]; [id number]; [id number]; [id number]; [id number]; [id number]; [id number]; [id number]; [id number]; [id number] ORDERING CLINICIAN: FARZAD KOENIG OPERATORS: Dr. Sg Hurt (Attending) /Susi Borges (Resident) CONSENT: The patient/patient's POA/next of kin was informed of the nature of the proposed procedure. The purposes, alternatives, risks, and benefits were explained and discussed. All questions were answered and consent was obtained. RADIATION EXPOSURE: Fluoroscopy time: 10.2 min. Dose: 238.3 mGy. Dose Area Product (DAP): 40.4 Gycm2 SEDATION: Moderate conscious IV sedation services (supervision of administration, induction, and maintenance) were provided by the physician performing the procedure with intravenous fentanyl 100 mcg and versed 2 mg for 150 minutes. The physician was assisted by an independent trained observer, an interventional radiology nurse, in the continuous monitoring of patient level of consciousness and physiologic status. MEDICATION/CONTRAST: No additional TIME OUT: A time out was performed immediately prior to procedure start with the interventional team, correctly identifying the patient name, date of , MRN, procedure, anatomy (including marking of site and side), patient position, procedure consent form, relevant laboratory and imaging test results, antibiotic administration, safety precautions, and procedure-specific equipment needs. CONTRAST: 40 mL of Optiray 300 EMBOLIZATION MATERIAL: Penumbra Keira 2 mm x 2 cm soft coil (1) Penumbra 60 cm packing coil (1) ACCESS SITE: Right common femoral artery with ultrasound guidance COMPLICATIONS: None immediate TECHNIQUE: The patient was placed in supine position on the angiography table and right groin was prepped and draped in sterile fashion. The skin and subcutaneous tissue overlying the right common femoral artery were infiltrated with 1% lidocaine for local anesthetic. Using ultrasound guidance, the right common femoral artery was punctured using a micropuncture needle. A 0.018 wire was advanced through the needle into the artery. The needle was exchanged for a 5 Cameroonian transitional catheter. The inner dilator and the 0.018 wire were removed and a 0.035 wire was advanced into the abdominal aorta. The transitional catheter was exchanged for a 5 Cameroonian vascular sheath, which was attached to a heparinized pressure bag of normal saline. Right common femoral arteriogram was performed which demonstrates adequate arterial access for use of closure device, cephalad to the bifurcation and caudad to the inferior epigastric artery origin. A 5 Cameroonian Cobra C2 catheter was advanced over the wire and used to cannulate the celiac artery and subsequently the splenic artery. Digital subtraction angiography was performed which reveals focus of active arterial extravasation arising from a branch of the distal splenic artery in the surgical bed correlating with findings seen on same day CTA. A Penumbra Lantern microcatheter was coaxially loaded and advanced over a 0.016 Fathom guidewire into the distal splenic artery. Digital subtraction angiography was performed which revealed aforementioned findings to better detail. At this time, microcatheter was advanced into the 3rd and 4th order branch vessel off the distal splenic artery with supply the area of active arterial extravasation. This was subsequently embolized using coils listed in the embolization material section. Proximally, coil pack extended to the level of the distal splenic artery. Post intervention completion angiogram of the splenic artery reveals evidence of stasis and resolution of previously seen active arterial extravasation. Base catheter and microcatheter were removed as a unit. At the beginning of the case, a right common femoral arteriogram had already been performed through the sheath side arm to document location of the arteriotomy. Arteriotomy closure was performed using a combination of Vascade closure device and prolonged manual pressure. Skin site was covered with a sterile dressing. The patient tolerated the procedure well and there were no immediate complications. FINDINGS: Please see technique section above. IMPRESSION: 1. Splenic artery angiogram reveals focus of active arterial extravasation in a branch vessel off the distal splenic artery in the surgical bed correlating with findings seen on same day CTA. 2. Successful image guided coil embolization of the same as detailed above resulting in stasis and interval resolution of active arterial extravasation. Electronically signed by: FREDDIE HURT MD [facility] EXT/UNIon 01-22-2020 EXT/UNI Patient Name: CHRISTIANO ZHENG STUDY: VASCULAR EMBO/OCCL, INCLUDE S; ADD 2ND/3RD/A-P; EXT-ART/UNI-A; EACH-ADD; EXT/UNI; VISCERAL; ULTRASOUND GUIDANCE FOR VASCULAR ACCESS; 3RD ORD/ABD-A; 01/22/2020 12:28 pm PROCEDURES: 1. Right common femoral artery access with ultrasound guidance 2. Splenic artery angiogram 3. Distal splenic artery angiogram 4. Coil embolization of branch vessels off the distal splenic artery (3rd and 4th order branches) 5. Post intervention completion angiogram of the splenic artery 6. Right common femoral artery angiogram prior to use of Vascade arteriotomy closure device INDICATION: 24-year-old male status post splenectomy for hereditary spherocytosis anemia who presents with postsurgical worsening of hemodynamics including marked hypotension and need for blood products. CTA was performed which reveals active arterial extravasation in the surgical bed. COMPARISON: Same-day CTA of the abdomen and pelvis ACCESSION NUMBER(S): [id number]; [id number]; [id number]; [id number]; [id number]; [id number]; [id number]; [id number]; [id number]; [id number]; [id number] ORDERING CLINICIAN: FARZAD KOENIG OPERATORS: Dr. Sg Hurt (Attending) /Susi Borges (Resident) CONSENT: The patient/patient's POA/next of kin was informed of the nature of the proposed procedure. The purposes, alternatives, risks, and benefits were explained and discussed. All questions were answered and consent was obtained. RADIATION EXPOSURE: Fluoroscopy time: 10.2 min. Dose: 238.3 mGy. Dose Area Product (DAP): 40.4 Gycm2 SEDATION: Moderate conscious IV sedation services (supervision of administration, induction, and maintenance) were provided by the physician performing the procedure with intravenous fentanyl 100 mcg and versed 2 mg for 150 minutes. The physician was assisted by an independent trained observer, an interventional radiology nurse, in the continuous monitoring of patient level of consciousness and physiologic status. MEDICATION/CONTRAST: No additional TIME OUT: A time out was performed immediately prior to procedure start with the interventional team, correctly identifying the patient name, date of , MRN, procedure, anatomy (including marking of site and side), patient position, procedure consent form, relevant laboratory and imaging test results, antibiotic administration, safety precautions, and procedure-specific equipment needs. CONTRAST: 40 mL of Optiray 300 EMBOLIZATION MATERIAL: Penumbra Keira 2 mm x 2 cm soft coil (1) Penumbra 60 cm packing coil (1) ACCESS SITE: Right common femoral artery with ultrasound guidance COMPLICATIONS: None immediate TECHNIQUE: The patient was placed in supine position on the angiography table and right groin was prepped and draped in sterile fashion. The skin and subcutaneous tissue overlying the right common femoral artery were infiltrated with 1% lidocaine for local anesthetic. Using ultrasound guidance, the right common femoral artery was punctured using a micropuncture needle. A 0.018 wire was advanced through the needle into the artery. The needle was exchanged for a 5 Cameroonian transitional catheter. The inner dilator and the 0.018 wire were removed and a 0.035 wire was advanced into the abdominal aorta. The transitional catheter was exchanged for a 5 Cameroonian vascular sheath, which was attached to a heparinized pressure bag of normal saline. Right common femoral arteriogram was performed which demonstrates adequate arterial access for use of closure device, cephalad to the bifurcation and caudad to the inferior epigastric artery origin. A 5 Cameroonian Cobra C2 catheter was advanced over the wire and used to cannulate the celiac artery and subsequently the splenic artery. Digital subtraction angiography was performed which reveals focus of active arterial extravasation arising from a branch of the distal splenic artery in the surgical bed correlating with findings seen on same day CTA. A Penumbra Lantern microcatheter was coaxially loaded and advanced over a 0.016 Fathom guidewire into the distal splenic artery. Digital subtraction angiography was performed which revealed aforementioned findings to better detail. At this time, microcatheter was advanced into the 3rd and 4th order branch vessel off the distal splenic artery with supply the area of active arterial extravasation. This was subsequently embolized using coils listed in the embolization material section. Proximally, coil pack extended to the level of the distal splenic artery. Post intervention completion angiogram of the splenic artery reveals evidence of stasis and resolution of previously seen active arterial extravasation. Base catheter and microcatheter were removed as a unit. At the beginning of the case, a right common femoral arteriogram had already been performed through the sheath side arm to document location of the arteriotomy. Arteriotomy closure was performed using a combination of Vascade closure device and prolonged manual pressure. Skin site was covered with a sterile dressing. The patient tolerated the procedure well and there were no immediate complications. FINDINGS: Please see technique section above. IMPRESSION: 1. Splenic artery angiogram reveals focus of active arterial extravasation in a branch vessel off the distal splenic artery in the surgical bed correlating with findings seen on same day CTA. 2. Successful image guided coil embolization of the same as detailed above resulting in stasis and interval resolution of active arterial extravasation. Electronically signed by: FREDDIE HURT MD Normal [facility] GLUCOSE-POCTon 01-22-2020 Glucose [Mass/Vol] 183 mg/dL High 74 - 99 [facility] Comment on above: Performed By: #### R ETIC #### [facility] [address] [place] [address] Glucose [Mass/Vol] 194 mg/dL High 74 - 99 [facility] Comment on above: Performed By: #### R ETIC #### [facility] [address] [place] [address] History and Physical - Jourdan farhana Kaminski 01-22-2020 History and Physical - Critical Care Service: Critical Care Service: ServiceSICU History of Present Illness: Admission Reason: postop bleeding HPI: HPI: 24 year old male with history of hereditary spherocytosis presented for splenectomy on 01/[address] Dunlap. Patient went to [facility] after surgery. This AM, on 01/21, code roselia was called as patient became hypotensive and tachycardia. CBC showed decreased in Hg from 11.6 to 8.5 to 6.8. Patient was given 3 liters of crystalloid by surgical team on the floor and then brought to the ICU. While in ICU, patient received 2 units of pRBCs and 250cc of albumin. Patients blood pressure and heart rate stabilized. Patient was taken by team for CTA, which showed active bleeding and then subsequently went to IR for embolization of splenic artery. Patient received 80mcg of fentanyl from SICU team while in CTA due to increasing abdominal pain and distention. IR nursing provided patient with 2mg of versed and 100mcg of fentanyl for procedure. 1 unit of pRBCs was given in the IR suit. 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 Objective: Objective Information: Objective Information T PRBPSpO2 [id number]/[id number]% Date/Time01/21 8: 13: 13: 13: 13:30 Range(36.1C - 36.6C ) (88 - 136 ) (15 - 45 ) (84 - 144 )/ (51 - 99 ) (94% - 100% ) Pain reported at 01/21 11:50: sleeping ---- Intake and Output ----- [facility] 22, 2020 6:00 [id number] Jan 21, 2020 10:00 [id number] The Intake and Output Totals for the last 24 hours are: [facility] [id number] Date: Weight/Scale Type: 22-Jan-2020 09:5474.6 kg 21-Jan-2020 18:5174.6 kg / standing 21-Jan-2020 10:0974.6 kg 21-Jan-2020 10:0974.6 kg / standing Physical Exam by System: Neurological: alert and oriented x3, intact senses, motor, response and reflexes, normal strength Cardiovascular: tachycardic on monitor, no murmurs Respiratory/Thorax: on NC, lungs clear to ascultation Genitourinary: medina placed Gastrointestinal: multiple incisions from laproscopic surgery with streaking on bandages, abdomen tender to palpation most likely from surgery/bleed Skin: pale skin, cool Musculoskeletal: ROM intact, no joint swelling, normal strength Head/Neck: Neck supple, no apparent injury Psychological: Appropriate mood and behavior Medications: Medications: Continuous Medications -------- 1. Lactated Ringers Infusion: 1000 mL IntraVenous Scheduled Medications -------- 1. Lactated Ringers IV Bolus: 1000 mL IntraVenous Piggyback Once 2. Lactated Ringers IV Bolus: 1000 mL IntraVenous Piggyback Once PRN Medications -------- 1. Acetaminophen: 650 mg Oral Every 6 Hours 2. Calcium Chloride IVPB: 0.5 gram(s) IntraVenous Piggyback Every 8 Hours 3. Calcium Chloride IVPB: 1 gram(s) IntraVenous Piggyback Every 8 Hours 4. diphenhydrAMINE Injectable: 25 mg IntraVenous Push Every 6 Hours 5. fentaNYL Injectable: 50 microgram(s) IntraVenous Push Every 2 Hours 6. fentaNYL Injectable: 25 microgram(s) IntraVenous Push Every 2 Hours 7. Magnesium Sulfate 2 gram/Sterile Water 50 mL Premix Soln: 2 gram(s) IntraVenous Piggyback Every 6 Hours 8. Magnesium Sulfate 4 gram/Sterile Water 100 mL Premix Soln: 4 gram(s) IntraVenous Piggyback Every 6 Hours 9. Ondansetron Injectable: 4 mg IntraVenous Push Every 4 Hours 10. Ondansetron Injectable: 4 mg IntraVenous Push Every 6 Hours 11. Potassium Chloride 20 mEq/Sterile Water 100 mL Premix IVPB: 20 mEq IntraVenous Piggyback Every 6 Hours Currently Suspended Medications -------- 1. Heparin SubCutaneous: 5000 unit(s) SubCutaneous Every 8 Hours 2. oxyCODONE Immediate Release: 5 mg Oral Every 4 Hours Recent Lab Results: Results: I have reviewed these laboratory results: Arterial Full Panel 22-Jan-2020 12:51:00 ResultValue pH, Arterial 7.36 L pCO2, Arterial 41 pO2, Arterial 154 H Patient-Temperature 37.0 SO2, Arterial 99 HCT 23.0 L Sodium-Level 132 L Potassium-Level 5.3 Chloride-Level 103 Calcium, Ionized-Level 1.13 Glucose-Level 147 H Lactate-Level 3.4 H Base Excess-Blood -2.1 L Bicarbonate, Calculated, Arterial 23.2 HGB, Calculated 7.8 L Anion Gap-Level 11 Basic Metabolic Panel 22-Jan-2020 08:09:00 ResultValue Glucose, Serum 191 H NA 138 K 4.2 CL 103 Bicarbonate, Serum 24 Anion Gap, Serum 15 BUN 17 CREAT 1.08 GFR-Non >60 GFR- >60 Calcium, Serum 8.1 L Lactate, Level 22-Jan-2020 08:09:00 ResultValue Lab Comment: CRITICAL LACT CALLED TO FARTUN QUINTANA--RB 2ID, 01/22/2020 10:22 Lactate, Level 8.1 HH Complete Blood Count Trending View [id number] 07:38:00 22-Jan-2020 04:38:00 22-Jan-2020 01:19:00 White Blood Cell Count16.2 H 17.8 H 23.6 H Nucleated Erythrocyte Count0.0 0.0 0.1 Red Blood Cell Count2.27 L 2.95 L 3.82 L HGB6.8 L 8.6 L 11.2 L HCT19.9 L 25.2 L 32.4 L MCV88 85 85 MCHC34.2 34.1 34.6 TGU307 L 160 197 RDW-CV18.6 H 18.5 H 18.6 H Comprehensive Metabolic Panel 22-Jan-2020 04:38:00 ResultValue Glucose, Serum 189 H NA 138 K 4.2 CL 102 Bicarbonate, Serum 20 L Anion Gap, Serum 20 BUN 16 CREAT 1.22 GFR-Non >60 GFR- >60 Calcium, Serum 8.5 L ALB 3.8 ALKP 33 T Pro 5.0 L T Bili 1.1 Alanine Aminotransferase, Serum 12 Aspartate Transaminase, Serum 14 Magnesium, Serum 22-Jan-2020 04:38:00 ResultValue Magnesium, Serum 1.60 Glucose_POCT 22-Jan-2020 04:22:00 ResultValue Glucose-POCT 183 H Coagulation Screen 22-Jan-2020 01:19:00 ResultValue Prothrombin Time, Plasma 14.4 H International Normalized Ratio, Plasma 1.2 H Activated Partial Thromboplastin Time 22 L Results: Impression: 1. Active contrast extravasation in the area of the post splenectomy surgical bed, appearing to arise from the inferior staple line with hyperdense ascites. Patient taken directly to IR for splenic artery embolization from the CT scanner. 2. Postsurgical changes, including pneumoperitoneum. The critical findings in this report were communicated to Dr. Rinaldi by Sherman Francis MD (resident) On 01/22/2020 at approximately 10:20 via phone. CTA Abd Aorta with Bilat Iliofem extr runoff w/wo cont post proc [Jan 22 2020 11:01AM] Assessment and Plan: Neurology: Plan: 24 year old male post splenectomy c/b post operative bleeding requiring IR embolization. Neuro: AOx3. -No need for sedation -PRN pain medications IV will change to PO when tolerated CV: no history of heart disease. HD stable after receiving 3 units of pRBCs, 3L crystal and 250cc albumin. Lactate elevated to 8.1 and downtrending. -EKG/telemetry monitoring -MAPs > 65 -ABGs to trend lactate Pulmonary: no history of pulmonary disease. Former smoker. -Titrate oxygen to SpO2 92% -PRN albuterol GI: Splenectomy for hereditary spherocytosis. POD #1 from splenectomy c/b bleeding. Patient had embolization of splenic artery with large hematoma formation intraabdominal. Patient is complaining of severe pain. -NPO while patient continues to be nausea -Advance diet as tolerated -No need for PPI -Will need vaccination prior to discharge : no renal disease. Cr at 1.08. -Placement of medina catheter as patient was retaining urine, will evaluate for removal later tonight vs. tomorrow am if stable -RFP daily -Replace electrolyte per SICU protocol Endo: no hx of thyroid dysfunction or diabetes -Glucose <180 -ISS Heme: acute blood loss anemia and thrombocytopenia. Received 3 units of pRBCs. -f/u CBC and coagulation -resuscitate as necessary ID: asplenic patient. -f/u with surgery regarding prophylactic medication if needed -will require vaccination prior to discharge -finished perioperative abx Lines: 3 PIV Farzad Koenig PGY4/CA3 SICU 60244 Code Status: Code StatusFull Code Signatures/Attestation/C ertification: Note Completion: I am a: Resident/Fellow Attending AttestationI saw and evaluated the patient. I personally obtained the boss and critical portions of the history and physical exam or was physically present for boss and critical portions performed by the resident/fellow. I reviewed the resident/fellows documentation and discussed the patient with the resident/fellow. I agree with the resident/fellows medical decision making as documented in the note. I personally evaluated the patient [id number] Critical Care PatientI have reviewed and evaluated the most recent data and results, personally examined the patient, and formulated the plan of care as presented above. This patient was critically ill and required continued critical care treatment. Teaching and any separately billable procedures are not included in the time calculation. Billing Provider Critical Care Time35 minute(s) Primary Critical Care Issue/Treatment (See Assessment and Plan for greater detail)-- For the nature of the critical condition and treatment, this documentation has been prepared by the attending physician/EVELYN- billing provider of these critical care services. Attending Provider Inpatient Certification StatementI certify this patients need for inpatient care based on the above documentation including; the order to admit as inpatient, the anticipated length of stay, diagnosis, problem list and plan of care, and discharge plan. Admission Order - View OnlyCurrent Admission Order. Admit to Inpatient Adult [facility] Admitting Diagnosis, D58.0 Hereditary spherocytosis Transfer to, [facility]: [facility] TT09 Division Admitting Service, Acute Care Surgery Level of Care, Med/Surg admit to [place] surgery service Lynnette Kaiser Admission Order Certification order has been placed by Eagle Mcmanus Electronic Signatures: Annette Irving) (Signed 22-Jan-2020 15:31) Authored: Signatures/Attestation/C ertification Co-Signer: Service, History of Present Illness, Comorbidities, Allergies, Medications Prior to Admission, Objective, Assessment and Plan, Signatures/Attestation/C ertification Farzad Koenig (Resident)) (Signed 22-Jan-2020 14:02) Authored: Service, History of Present Illness, Comorbidities, Allergies, Medications Prior to Admission, Objective, Assessment and Plan, Signatures/Attestation/C ertification Last Updated: 22-Jan-2020 15:31 by Annette Irving) Normal [facility] LACTATEon 01-22-2020 Lactate [Moles/Vol] 8.1 mmol/L Critically high 0.4 - 2.0 [facility] Comment on above: Order Comment: JOURDAN FARHANA LACT CALLED TO FARTUN QUINTANA--RB 2ID, 01/22/2020 10:22 Result Comment: Dacia puncture immediately after or during the administration of Metamizole may lead to falsely low results. Testing should be performed immediately prior to Metamizole dosing. CRITICAL LACT CALLED TO FARTUN QUINTANA--RB 2ID, 01/22/2020 10:22 Performed By: #### C BCDF #### [facility] [address] [place] [address] MAGNESIUMon 01-22-2020 Magnesium [Mass/Vol] 1.63 mg/dL Normal 1.60 - 2.40 [facility] Comment on above: Performed By: #### L #### [facility] [address] [place] [address] Magnesium [Mass/Vol] 1.60 mg/dL Normal 1.60 - 2.40 [facility] Comment on above: Performed By: #### C BCDF #### [facility] [address] [place] [address] PLASMAon 01-22-2020 PLASMA ORDER RECD Normal [facility] Comment on above: Performed By: #### C BCDF #### [facility] [address] [place] [address] RENAL FUNCTION PANELon 01-21 Albumin [Mass/Vol] 3.5 g/dL Normal 3.4 - 5.0 [facility] Comment on above: Performed By: #### L DH #### [facility] [address] [place] [address] Anion gap [Moles/Vol] 18 mmol/L Normal 10 - 20 [facility] Comment on above: Performed By: #### L DH #### [facility] [address] [place] [address] Calcium [Mass/Vol] 8.2 mg/dL Low 8.6 - 10.6 [facility] Comment on above: Performed By: #### L DH #### [facility] [address] [facility] [place] [address] Chloride [Moles/Vol] 102 mmol/L Normal 98 - 107 [facility] Comment on above: Performed By: #### L DH #### [facility] [address] [place] [address] Creatinine [Mass/Vol] 0.95 mg/dL Normal 0.50 - 1.30 [facility] Comment on above: Performed By: #### L DH #### [facility] [address] [facility] [place] [address] GFR- AM. >60 Normal >60 [facility] Comment on above: Result Comment: CALC ULATIONS OF ESTIMATED GFR ARE PERFORMED USING THE MDRD STUDY EQUATION FOR THE IDMS-TRACEABLE CREATININE METHODS. CLIN CHEM 2007;53:766-72 Performed By: #### L DH #### [facility] [address] [place] [address] GFR-NON AM. >60 Normal >60 [facility] Comment on above: Performed By: #### L DH #### [facility] [address] [place] [address] Glucose [Mass/Vol] 130 mg/dL High 74 - 99 [facility] Comment on above: Performed By: #### L DH #### [facility] [address] [place] [address] HCO3 (Bld) [Moles/Vol] 23 mmol/L Normal 21 - 32 [facility] Comment on above: Performed By: #### L DH #### [facility] [address] [place] [address] Phosphate [Mass/Vol] 4.7 mg/dL Normal 2.5 - 4.9 [facility] Comment on above: Result Comment: The performance characteristics of phosphorus testing in heparinized plasma have been validated by the individual laboratory site where testing is performed. Testing on heparinized plasma is not approved by the FDA; however, such approval is not necessary. Performed By: #### L DH #### [facility] [address] [facility] [place] [address] Potassium [Moles/Vol] 5.1 mmol/L Normal 3.5 - 5.3 [facility] Comment on above: Performed By: #### L DH #### [facility] [address] [place] [address] Sodium [Moles/Vol] 138 mmol/L Normal 136 - 145 [facility] Comment on above: Performed By: #### L DH #### [facility] [address] [facility] [place] [address] Urea nitrogen [Mass/Vol] 14 mg/dL Normal 6 - 23 [facility] Comment on above: Performed By: #### L DH #### [facility] [address] [place] [address] REQUEST-LEUKOREDUCED RED JAIDA LSon 01-22-2020 REQUEST-LEUKOREDUCED RED CELLS ORDER RECD Normal [facility] Comment on above: Performed By: #### C BCDF #### [facility] [address] [place] [address] REQUEST-LEUKOREDUCED RED CELLS ORDER RECD Normal [facility] Comment on above: Performed By: #### C BCDF #### [facility] [address] [facility] [place] [address] REQUEST-LEUKOREDUCED RED CELLS ORDER RECD Normal [facility] Comment on above: Performed By: #### C BCDF #### [facility] [address] [place] [address] ULTRASOUND GUIDANCE FOR VASC ULAR ACCESSon 01-22-2020 ULTRASOUND GUIDANCE FOR VASCULAR ACCESS Patient Name: CHRISTIANO ZHENG STUDY: VASCULAR EMBO/OCCL, INCLUDE S; ADD 2ND/3RD/A-P; EXT-ART/UNI-A; EACH-ADD; EXT/UNI; VISCERAL; ULTRASOUND GUIDANCE FOR VASCULAR ACCESS; 3RD ORD/ABD-A; 01/22/2020 12:28 pm PROCEDURES: 1. Right common femoral artery access with ultrasound guidance 2. Splenic artery angiogram 3. Distal splenic artery angiogram 4. Coil embolization of branch vessels off the distal splenic artery (3rd and 4th order branches) 5. Post intervention completion angiogram of the splenic artery 6. Right common femoral artery angiogram prior to use of Vascade arteriotomy closure device INDICATION: 24-year-old male status post splenectomy for hereditary spherocytosis anemia who presents with postsurgical worsening of hemodynamics including marked hypotension and need for blood products. CTA was performed which reveals active arterial extravasation in the surgical bed. COMPARISON: Same-day CTA of the abdomen and pelvis ACCESSION NUMBER(S): [id number]; [id number]; [id number]; [id number]; [id number]; [id number]; [id number]; [id number]; [id number]; [id number]; [id number] ORDERING CLINICIAN: FARZAD KOENIG OPERATORS: Dr. Sg Hurt (Attending) /Susi Borges (Resident) CONSENT: The patient/patient's POA/next of kin was informed of the nature of the proposed procedure. The purposes, alternatives, risks, and benefits were explained and discussed. All questions were answered and consent was obtained. RADIATION EXPOSURE: Fluoroscopy time: 10.2 min. Dose: 238.3 mGy. Dose Area Product (DAP): 40.4 Gycm2 SEDATION: Moderate conscious IV sedation services (supervision of administration, induction, and maintenance) were provided by the physician performing the procedure with intravenous fentanyl 100 mcg and versed 2 mg for 150 minutes. The physician was assisted by an independent trained observer, an interventional radiology nurse, in the continuous monitoring of patient level of consciousness and physiologic status. MEDICATION/CONTRAST: No additional TIME OUT: A time out was performed immediately prior to procedure start with the interventional team, correctly identifying the patient name, date of , MRN, procedure, anatomy (including marking of site and side), patient position, procedure consent form, relevant laboratory and imaging test results, antibiotic administration, safety precautions, and procedure-specific equipment needs. CONTRAST: 40 mL of Optiray 300 EMBOLIZATION MATERIAL: Penumbra Keira 2 mm x 2 cm soft coil (1) Penumbra 60 cm packing coil (1) ACCESS SITE: Right common femoral artery with ultrasound guidance COMPLICATIONS: None immediate TECHNIQUE: The patient was placed in supine position on the angiography table and right groin was prepped and draped in sterile fashion. The skin and subcutaneous tissue overlying the right common femoral artery were infiltrated with 1% lidocaine for local anesthetic. Using ultrasound guidance, the right common femoral artery was punctured using a micropuncture needle. A 0.018 wire was advanced through the needle into the artery. The needle was exchanged for a 5 Cameroonian transitional catheter. The inner dilator and the 0.018 wire were removed and a 0.035 wire was advanced into the abdominal aorta. The transitional catheter was exchanged for a 5 Cameroonian vascular sheath, which was attached to a heparinized pressure bag of normal saline. Right common femoral arteriogram was performed which demonstrates adequate arterial access for use of closure device, cephalad to the bifurcation and caudad to the inferior epigastric artery origin. A 5 Cam[place]onian Cobra C2 catheter was advanced over the wire and used to cannulate the celiac artery and subsequently the splenic artery. Digital subtraction angiography was performed which reveals focus of active arterial extravasation arising from a branch of the distal splenic artery in the surgical bed correlating with findings seen on same day CTA. A Penumbra Lantern microcatheter was coaxially loaded and advanced over a 0.016 Fathom guidewire into the distal splenic artery. Digital subtraction angiography was performed which revealed aforementioned findings to better detail. At this time, microcatheter was advanced into the 3rd and 4th order branch vessel off the distal splenic artery with supply the area of active arterial extravasation. This was subsequently embolized using coils listed in the embolization material section. Proximally, coil pack extended to the level of the distal splenic artery. Post intervention completion angiogram of the splenic artery reveals evidence of stasis and resolution of previously seen active arterial extravasation. Base catheter and microcatheter were removed as a unit. At the beginning of the case, a right common femoral arteriogram had already been performed through the sheath side arm to document location of the arteriotomy. Arteriotomy closure was performed using a combination of Vascade closure device and prolonged manual pressure. Skin site was covered with a sterile dressing. The patient tolerated the procedure well and there were no immediate complications. FINDINGS: Please see technique section above. IMPRESSION: 1. Splenic artery angiogram reveals focus of active arterial extravasation in a branch vessel off the distal splenic artery in the surgical bed correlating with findings seen on same day CTA. 2. Successful image guided coil embolization of the same as detailed above resulting in stasis and interval resolution of active arterial extravasation. Electronically signed by: FREDDIE HURT MD [facility] VASCULAR EMBO/OCCL, INCLUDE Son 01-22-2020 VASCULAR EMBO/OCCL, INCLUDE S Patient Name: CHRISTIANO ZHENG STUDY: VASCULAR EMBO/OCCL, INCLUDE S; ADD 2ND/3RD/A-P; EXT-ART/UNI-A; EACH-ADD; EXT/UNI; VISCERAL; ULTRASOUND GUIDANCE FOR VASCULAR ACCESS; 3RD ORD/ABD-A; 01/22/2020 12:28 pm PROCEDURES: 1. Right common femoral artery access with ultrasound guidance 2. Splenic artery angiogram 3. Distal splenic artery angiogram 4. Coil embolization of branch vessels off the distal splenic artery (3rd and 4th order branches) 5. Post intervention completion angiogram of the splenic artery 6. Right common femoral artery angiogram prior to use of Vascade arteriotomy closure device INDICATION: 24-year-old male status post splenectomy for hereditary spherocytosis anemia who presents with postsurgical worsening of hemodynamics including marked hypotension and need for blood products. CTA was performed which reveals active arterial extravasation in the surgical bed. COMPARISON: Same-day CTA of the abdomen and pelvis ACCESSION NUMBER(S): [id number]; [id number]; [id number]; [id number]; [id number]; [id number]; [id number]; [id number]; [id number]; [id number]; [id number] ORDERING CLINICIAN: FARZAD KOENIG OPERATORS: Dr. Sg Hurt (Attending) /Susi Borges (Resident) CONSENT: The patient/patient's POA/next of kin was informed of the nature of the proposed procedure. The purposes, alternatives, risks, and benefits were explained and discussed. All questions were answered and consent was obtained. RADIATION EXPOSURE: Fluoroscopy time: 10.2 min. Dose: 238.3 mGy. Dose Area Product (DAP): 40.4 Gycm2 SEDATION: Moderate conscious IV sedation services (supervision of administration, induction, and maintenance) were provided by the physician performing the procedure with intravenous fentanyl 100 mcg and versed 2 mg for 150 minutes. The physician was assisted by an independent trained observer, an interventional radiology nurse, in the continuous monitoring of patient level of consciousness and physiologic status. MEDICATION/CONTRAST: No additional TIME OUT: A time out was performed immediately prior to procedure start with the interventional team, correctly identifying the patient name, date of , MRN, procedure, anatomy (including marking of site and side), patient position, procedure consent form, relevant laboratory and imaging test results, antibiotic administration, safety precautions, and procedure-specific equipment needs. CONTRAST: 40 mL of Optiray 300 EMBOLIZATION MATERIAL: Penumbra Keira 2 mm x 2 cm soft coil (1) Penumbra 60 cm packing coil (1) ACCESS SITE: Right common femoral artery with ultrasound guidance COMPLICATIONS: None immediate TECHNIQUE: The patient was placed in supine position on the angiography table and right groin was prepped and draped in sterile fashion. The skin and subcutaneous tissue overlying the right common femoral artery were infiltrated with 1% lidocaine for local anesthetic. Using ultrasound guidance, the right common femoral artery was punctured using a micropuncture needle. A 0.018 wire was advanced through the needle into the artery. The needle was exchanged for a 5 Cameroonian transitional catheter. The inner dilator and the 0.018 wire were removed and a 0.035 wire was advanced into the abdominal aorta. The transitional catheter was exchanged for a 5 Cameroonian vascular sheath, which was attached to a heparinized pressure bag of normal saline. Right common femoral arteriogram was performed which demonstrates adequate arterial access for use of closure device, cephalad to the bifurcation and caudad to the inferior epigastric artery origin. A 5 Cameroonian Cobra C2 catheter was advanced over the wire and used to cannulate the celiac artery and subsequently the splenic artery. Digital subtraction angiography was performed which reveals focus of active arterial extravasation arising from a branch of the distal splenic artery in the surgical bed correlating with findings seen on same day CTA. A Penumbra Lantern microcatheter was coaxially loaded and advanced over a 0.016 Fathom guidewire into the distal splenic artery. Digital subtraction angiography was performed which revealed aforementioned findings to better detail. At this time, microcatheter was advanced into the 3rd and 4th order branch vessel off the distal splenic artery with supply the area of active arterial extravasation. This was subsequently embolized using coils listed in the embolization material section. Proximally, coil pack extended to the level of the distal splenic artery. Post intervention completion angiogram of the splenic artery reveals evidence of stasis and resolution of previously seen active arterial extravasation. Base catheter and microcatheter were removed as a unit. At the beginning of the case, a right common femoral arteriogram had already been performed through the sheath side arm to document location of the arteriotomy. Arteriotomy closure was performed using a combination of Vascade closure device and prolonged manual pressure. Skin site was covered with a sterile dressing. The patient tolerated the procedure well and there were no immediate complications. FINDINGS: Please see technique section above. IMPRESSION: 1. Splenic artery angiogram reveals focus of active arterial extravasation in a branch vessel off the distal splenic artery in the surgical bed correlating with findings seen on same day CTA. 2. Successful image guided coil embolization of the same as detailed above resulting in stasis and interval resolution of active arterial extravasation. Electronically signed by: FREDDIE HURT MD [facility] VISCERALon 01-22-2020 VISCERAL Patient Name: CHRISTIANO ZHENG STUDY: VASCULAR EMBO/OCCL, INCLUDE S; ADD 2ND/3RD/A-P; EXT-ART/UNI-A; EACH-ADD; EXT/UNI; VISCERAL; ULTRASOUND GUIDANCE FOR VASCULAR ACCESS; 3RD ORD/ABD-A; 01/22/2020 12:28 pm PROCEDURES: 1. Right common femoral artery access with ultrasound guidance 2. Splenic artery angiogram 3. Distal splenic artery angiogram 4. Coil embolization of branch vessels off the distal splenic artery (3rd and 4th order branches) 5. Post intervention completion angiogram of the splenic artery 6. Right common femoral artery angiogram prior to use of Vascade arteriotomy closure device INDICATION: 24-year-old male status post splenectomy for hereditary spherocytosis anemia who presents with postsurgical worsening of hemodynamics including marked hypotension and need for blood products. CTA was performed which reveals active arterial extravasation in the surgical bed. COMPARISON: Same-day CTA of the abdomen and pelvis ACCESSION NUMBER(S): [id number]; [id number]; [id number]; [id number]; [id number]; [id number]; [id number]; [id number]; [id number]; [id number]; [id number] ORDERING CLINICIAN: FARZAD KOENIG OPERATORS: Dr. Sg Hurt (Attending) /Susi Borges (Resident) CONSENT: The patient/patient's POA/next of kin was informed of the nature of the proposed procedure. The purposes, alternatives, risks, and benefits were explained and discussed. All questions were answered and consent was obtained. RADIATION EXPOSURE: Fluoroscopy time: 10.2 min. Dose: 238.3 mGy. Dose Area Product (DAP): 40.4 Gycm2 SEDATION: Moderate conscious IV sedation services (supervision of administration, induction, and maintenance) were provided by the physician performing the procedure with intravenous fentanyl 100 mcg and versed 2 mg for 150 minutes. The physician was assisted by an independent trained observer, an interventional radiology nurse, in the continuous monitoring of patient level of consciousness and physiologic status. MEDICATION/CONTRAST: No additional TIME OUT: A time out was performed immediately prior to procedure start with the interventional team, correctly identifying the patient name, date of , MRN, procedure, anatomy (including marking of site and side), patient position, procedure consent form, relevant laboratory and imaging test results, antibiotic administration, safety precautions, and procedure-specific equipment needs. CONTRAST: 40 mL of Optiray 300 EMBOLIZATION MATERIAL: Penumbra Keira 2 mm x 2 cm soft coil (1) Penumbra 60 cm packing coil (1) ACCESS SITE: Right common femoral artery with ultrasound guidance COMPLICATIONS: None immediate TECHNIQUE: The patient was placed in supine position on the angiography table and right groin was prepped and draped in sterile fashion. The skin and subcutaneous tissue overlying the right common femoral artery were infiltrated with 1% lidocaine for local anesthetic. Using ultrasound guidance, the right common femoral artery was punctured using a micropuncture needle. A 0.018 wire was advanced through the needle into the artery. The needle was exchanged for a 5 Cameroonian transitional catheter. The inner dilator and the 0.018 wire were removed and a 0.035 wire was advanced into the abdominal aorta. The transitional catheter was exchanged for a 5 Cameroonian vascular sheath, which was attached to a heparinized pressure bag of normal saline. Right common femoral arteriogram was performed which demonstrates adequate arterial access for use of closure device, cephalad to the bifurcation and caudad to the inferior epigastric artery origin. A 5 Cameroonian Cobra C2 catheter was advanced over the wire and used to cannulate the celiac artery and subsequently the splenic artery. Digital subtraction angiography was performed which reveals focus of active arterial extravasation arising from a branch of the distal splenic artery in the surgical bed correlating with findings seen on same day CTA. A PenumbPluto.TVtern microcatheter was coaxially loaded and advanced over a 0.016 Fathom guidewire into the distal splenic artery. Digital subtraction angiography was performed which revealed aforementioned findings to better detail. At this time, microcatheter was advanced into the 3rd and 4th order branch vessel off the distal splenic artery with supply the area of active arterial extravasation. This was subsequently embolized using coils listed in the embolization material section. Proximally, coil pack extended to the level of the distal splenic artery. Post intervention completion angiogram of the splenic artery reveals evidence of stasis and resolution of previously seen active arterial extravasation. Base catheter and microcatheter were removed as a unit. At the beginning of the case, a right common femoral arteriogram had already been performed through the sheath side arm to document location of the arteriotomy. Arteriotomy closure was performed using a combination of Vascade closure device and prolonged manual pressure. Skin site was covered with a sterile dressing. The patient tolerated the procedure well and there were no immediate complications. FINDINGS: Please see technique section above. IMPRESSION: 1. Splenic artery angiogram reveals focus of active arterial extravasation in a branch vessel off the distal splenic artery in the surgical bed correlating with findings seen on same day CTA. 2. Successful image guided coil embolization of the same as detailed above resulting in stasis and interval resolution of active arterial extravasation. Electronically signed by: FREDDIE HURT MD Normal [facility] ABO/RH GROUP TESTon 01-21-20 20 ABO TYPE O Normal [facility] Comment on above: Performed By: #### R ETIC #### [facility] [address] [place] [address] Performed By: #### T +S ####[id number] [place] [address] RH TYPE Positive Normal [facility] Comment on above: Performed By: #### R ETIC #### DANIELLE [facility]CER [facility] [address] [place] [address] Performed By: #### T +S ####[id number] [place] [address] Admission Risk Screen - Adul ton 01-21-2020 Admission Risk Screen - Adult Allergies: Allergies: morphine: Facial Swelling Dilaudid: Rash Patient Verification: New W ID Band Applied in my Departmentyes Patient Identity Verified Bydriver's license/state ID; patient ID Band FULL Name, include Middle, spelling matches patient's ID used for verificationyes ID Band Matches Patient ID used for Verficationyes ID Band MRN Matches EMR MRNyes Visitor Restriction: Coronavirus Visitor Restriction: Reasonable restrictions to in-person visitors will be observed due to current coronavirus pandemic. Travel History: COVID-19 Screening Completedno exposure or symptoms Advance Directive: Advance Directive/DNRno (1) Advance Directive Information Givenpatient/family declined Falls Screen: Type of Assessmentadmission Moderate Risk Factorspatient care equipment (scds, ivs, chest tubes, medina, etc) High Risk Factorssymptoms due to meds (sedatives, hypnotics, new diuretics and new laxatives) Risk for Injury Associated with Fallrisk of surgical complications post surgery (recent abdominal, thoracic surgery, lower limb amputation) Fall Risk Conclusionhigh falls risk with risk for associated injury Independence Safety InterventionsWDL *orient to call system *instruct to call for assistance before getting out of bed *non-slip footwear when patient is out of bed *call jaffe in reach *personal items and telephone in reach *physically safe environment (no spills or clutter) *bed in lowest position with wheels locked *appropriate side rails in place *room/bathroom lighting operational, light cord in reach *appropriate signage on door Family Violence Screen: Are you or have you been threatened or abused physically, emotionally, or sexually by anyoneno Do you feel UNSAFE going back to the place where you are livingno Clinical assessment: Are there any apparent signs of injuries/behaviors that could be related to abuse/neglectno Social Service Consult for abuse/neglect needed this visitno Functional Screen: Functional Screen: In the recent/past 2-4 weeks, patient or family have noticedno issues that require a speech/language consult at this time AM-PAC- Basic Mobility/Daily Activity: Patient baseline bedboundno Learning Assessment (Patient): Patient is Able to be Assessed for Learningyes Factors Influencing Readiness to Learnpain Factors that Impact Ability to Learnnone Devices/Methods Used to Communicatenone Learning Preferencesverbal instruction; written material Cultural Considerationsnone Developmental Considerationsnone Congregation Considerationsnone Learning Assessment (Other Learner): Other learner availableno Suicide/Depression Screen: During the past month, have you often been bothered by feeling down, depressed or hopelessno (1) During the past month, have you often had little interest or pleasure in doing thingsno (1) Have you had any thoughts of harming yourselfno (1) Have you had any thoughts of harming anyone elseno (1) Adult Nutrition Screen: Have you recently lost weight without tryingno Have you been eating poorly because of a decreased appetiteno Malnutrition Screening Tool Score0 Malnutrition Screening Tool RiskMST = 0 or 1 Not at risk. Eating well with little or no weight loss Nutrition Consult needed this visitno Can Patient Participate in Room Serviceyes Patient requires Paper Dishes/Plastic Utensilsno Pain Screen: Pain Scalenumerical 0-10 (1) Pain Scale Educationteaching provided (1) Current Pain Level4 = Moderate Acceptable Pain Level4 = Moderate Expression of Pain (nonverbal)verbalization Chronic Painno (1) Spiritual Screen: Are there any cultural, spiritual, anabaptist practices/values/needs that are important for us to knowno CAGE: Is this an injured patient at a Trauma Center ([facility], [place] /[place]): no Vaccinations: Vaccination - Influenza Vaccination Screen: Is it flu season (between and September 28)No Vaccination - Pneumonia Vaccination Screen: Patient has received a previous pneumonia vaccine:no/unknown... Immunocompetent persons with underlying chronic conditions or reside in skilled nursing care facilitiesnone of these conditions Persons with Functional or Anatomic Asplenianone of these conditions Immunocompromised Personsnone of these conditions Pneumonia vaccine NOT indicated due to:patient/caregiver refusal at this time Rigoberto: Skin - Rigoberto Scale: Rigoberto: Sensory Perception (response to environment)(4) no impairment Rigoberto: Moisture (degree skin exposed to moisture)(4) rarely moist Rigoberto: Activity (ability to walk)(4) walks frequently Rigoberto: Mobility (amount/control of body movement)(3) slightly limited Rigoberto: Nutrition (quality of food intake)(3) adequate Rigoberto: Friction and Shear(3) no apparent problem Rigoberto: Score21 Significant Indicatiors: Significant Indicators: Complete Pressure Injury: Pressure Injury Present on Admissionno Electronic Signatures: Kathy Chavez (RN) (Signed 21-Jan-2020 19:09) Authored: Admission Risk Screens, Vaccinations, Rigoberto, Pressure Injury Last Updated: 21-Jan-2020 19:09 by Kathy Chavez (CALOS) References: 1. Data Referenced From Patient Profile - Preop v2 21-Jan-2020 10:09 Normal [facility] CBCon 01-21-2020 Erythrocyte distribution width (RBC) [Ratio] 18.7 % High 11.5 - 14.5 [facility] Comment on above: Performed By: #### R ETIC #### [facility] [address] [facility] [place] [address] Hematocrit (Bld) [Volume fraction] 34.3 % Low 41.0 - 52.0 [facility] Comment on above: Performed By: #### R ETIC #### [facility] [address] [place] [address] Hemoglobin (Bld) [Mass/Vol] 12.6 g/dL Low 13.5 - 17.5 [facility] Comment on above: Performed By: #### R ETIC #### [facility] [address] [place] [address] MCHC (RBC) [Mass/Vol] 36.7 g/dL High 32.0 - 36.0 [facility] Comment on above: Performed By: #### R ETIC #### [facility] [address] [place] [address] MCV (RBC) [Entitic vol] 80 fL Normal 80 - 100 [facility] Comment on above: Performed By: #### R ETIC #### [facility] [address] [place] [address] Nucleated RBC/100 WBC (Bld) [Ratio] 0.1 /100 WBC Normal 0.0-0.0 [facility] Comment on above: Performed By: #### R ETIC #### [facility] [address] [place] [address] Platelets (Bld) [#/Vol] 197 10*3/uL Normal 150 - 450 [facility] Comment on above: Performed By: #### R ETIC #### [facility] [address] [place] [address] RBC (Bld) [#/Vol] 4.28 x10E12/L Low 4.50 - 5.90 [facility] Comment on above: Performed By: #### R ETIC #### [facility] [address] [place] [address] WBC (Bld) [#/Vol] 29.9 10*3/uL High 4.4 - 11.3 [facility] Comment on above: Performed By: #### R ETIC #### [facility] [address] [place] [address] History and Physical - Surgi farhana Update < 30 dayson 01-21-2020 History and Physical - Surgical Update < 30 days History & Physical Reviewed: I have reviewed the History and Physical dated: 13-Jan-2020 History and Physical reviewed and relevant findings noted. Patient examined to review pertinent physical findings.: No significant changes Home Medications Reviewed: no changes noted Allergies Reviewed: no changes noted This patient has been seen and discussed with the attending physician responsible for performing the procedure: yes Consent: COVID-19 Consent: COVID-19 Risk ConsentSurgeon has reviewed boss risks related to the risk of mariela COVID-19 and if they contract COVID-19 what the risks are. Signatures/Attestation/C ertification: Note Completion: I am a: Resident/Fellow Attending AttestationI saw and evaluated the patient. I personally obtained the boss and critical portions of the history and physical exam or was physically present for boss and critical portions performed by the resident/fellow. I reviewed the resident/fellows documentation and discussed the patient with the resident/fellow. I agree with the resident/fellows medical decision making as documented in the note. I personally evaluated the patient [id number] Attending Provider Inpatient Certification StatementI certify this patients need for inpatient care based on the above documentation including; the order to admit as inpatient, the anticipated length of stay, diagnosis, problem list and plan of care, and discharge plan. Electronic Signatures: Annette Kaufman (Resident)) (Signed 21-Jan-2020 12:41) Authored: History & Physical Reviewed, Consent, Signatures/Attestation/C ertification Eagle Mcmanus) (Signed 21-Jan-2020 12:47) Authored: Signatures/Attestation/C ertification Co-Signer: History & Physical Reviewed, Consent, Signatures/Attestation/C ertification Last Updated: 21-Jan-2020 12:47 by Eagle Mcmanus) [facility] Operative Reports - [facility] [place] [address] Patient Name: HODAN ZHENG : 1995 Date of Service: 01/21/2020 Patient Location: [id number] Patient Type: O Surgeon: Eagle Mcmanus MD Report Type: Operative Reports PREOPERATIVE DIAGNOSIS: Hereditary spherocytosis. POSTOPERATIVE DIAGNOSIS: Hereditary spherocytosis. OPERATION/PROCEDURE: Laparoscopic splenectomy. SURGEON: Eagle Mcmanus MD WIRE WALKER(S): 1. Dr. Leonela Kaiser 2. Annette Kaufman MD ANESTHESIA: CLINICAL NOTE: This is a patient with hereditary spherocytosis. He has had sudden increase in size of the spleen. He understands all risks and benefits for splenectomy, possible bleeding, long-term implications of splenectomy; and consents. OPERATIVE NOTE: The patient was brought to the operating room. General endotracheal anesthesia was performed. The abdomen was prepped and draped in the usual fashion. After placement in the lateral position, I used a transverse incision a little bit lower than usual because of the size of the spleen. I used my Janelle and insufflated. I placed a 5 mm trocar in the epigastric and 12 mm trocar out laterally. I identified a very large spleen. I then very carefully began mobilizing with the Harmonic Scalpel. I came down to the lower pole and used a vascular JOHN to come across the lower pole vessels. I then mobilized the superior pole out laterally and took down the short gastrics. I then was able to with several fires of the vascular JOHN to come across the hilum without much difficulty. There was 1 small area that I placed an additional clip and we completely had mobilized this area. There was no significant bleeding. I irrigated the area copiously. I removed the fluid. I then put the spleen in a large bag. I brought out through my Janelle. I morcellated it. I removed it and the morcellation with no spillage of the splenic particles. I replaced my trocars. I irrigated the area. There was no bleeding, whatsoever. No other abnormalities. I then removed my trocars and closed the fascial defect with 0 Vicryl and skin incisions with 4-0 Vicryl. Eagle Mcmanus MD EST TT: 01/22/2020 03:21 AM EST DICTATION NUMBER: [id number] SPHERIS JOB NUMBER: [id number] CC: ADDIE Cobos MD Electronic Signatures: Eagle Mcmanus () (Signed on 22-Jan-2020 23:07) Authored Unsigned, Draft (SYS GENERATED) (Entered on 22-Jan-2020 03:21) Entered Last Updated: 22-Jan-2020 23:07 by Eagle Mcmanus) Normal [facility] Patient Profile - Preop v2on 01-21-2020 Patient Profile - Preop v2 Profile: Initial Info: How to be AddressedAlex Spoken Language PreferredEnglish Are you currently using the Personal [facility] or [facility] [place] Stated Reason for Admissionsplenectomy Primary Contact Name and NumberCindy daly - [phone] Patient Belongingslocker Medications Brought to Hospitalno General Health: Weight in kg74.6 kilogram(s) Weight in szz710.4 pound(s) Weight Methodactual (measured) Scale Typestanding Height in feet5 feet Height in wyorqn43 inch(es) Height in cm177.8 centimeter(s) Height Methodstated BMI (kg/m2)23.598 square meter Patient or Family Member Reaction to Anesthesiano previous reaction Blood Avoidance/Restrictionsno ne Previous Transfusion Reactionno Health Mgmt: Symptoms/Conditions Managed at Homehematologic Barriers to Managing Healthnone Relationship/Environ: Living Arrangementshouse Lives Withspouse Resource/Environmental Concernsnone Substance: Current or Former Substance Use never: e-Cigarette/Vaping, Alcohol, Street Drugs YES: Cigarette/Tobacco Tobacco Cessation Education (provide if tobacco use within the last 12 mos)not applicable Other Tobacco Use Commentsquit 2018 Risk Screens: COVID-19 Screening Completedno exposure or symptoms Advance Directive/DNRno During the past month, have you often been bothered by feeling down, depressed or hopelessno During the past month, have you often had little interest or pleasure in doing thingsno Have you had any thoughts of harming yourselfno Have you had any thoughts of harming anyone elseno Are you or have you been threatened or abused physically,emotionally or sexually abused by anyoneno Do you feel UNSAFE going back to the place you are livingno Patient is Able to be Assessed for Learningyes Factors Influencing Readiness to Learnfatigue Factors that Impact Ability to Learnnone Devices/Methods Used to Communicatenone Learning Preferencesverbal instruction; written material Cultural Considerationsnone Developmental Considerationsnone Congregation Considerationsnone Other learner availableno Falls RiskPatient location auto qualifies him/her for HIGH RISK. Are there any cultural, spiritual, anabaptist practices/values/needs that are important for us to knowno Pain Scalenumerical 0-10 Pain Scale Educationteaching provided Current Pain Level0 = None Acceptable Pain Level4 = Moderate Chronic Painno Information Review: Allergies, Home Meds and Significant Events have been Reviewed and Verified with Patient/Familyyes Allergy, Intolerance, Adverse Event: Allergies: morphine: Drug, Facial Swelling, Active Electronic Signatures: Claudia Tapia (CALOS) (Signed 21-Jan-2020 10:24) Authored: Profile, Additional Information Last Updated: 21-Jan-2020 10:24 by Claudia Tapia) [facility] Preop Checkliston 01-21-2020 Preop Checklist Preop Checklist: Preop Checklist: Arrival [id number] Arrival Time10:05 Procedure Typesplenectomy Temperature C37.6 degrees C Temperature F99.6 degrees F Heart Rate67 beats per minute Respiratory Rate16 breath per minute Blood Pressure Meutjefv079 mm/Hg Blood Pressure Qphyftbdk92 mm/Hg NPO [id number] 00:01 ID Band Onyes Allergy Bandyes Consent Signedyes H&P Completeyes Anesthesia Assessment Completedpending EKG Performedsee results tab Chest X-Ray Performedsee results tab HCG Urine TestN/A Chlorhexadine Bath Givennot applicable Nasal Antiseptic Appliednot applicable Hair Washednot applicable Soap and water bath with hair shampoo the night before surgerynot applicable Hat placed on infant prior to transportnot applicable SCD's Appliedsent to OR MARCIE Hose Appliednot ordered Denturesnot applicable Prostheticsnot applicable Hearing Aidsnot applicable Valuables Securedplaced in locker clothes only Glasses / Contactsnot applicable Bowel Prepno Cardiovascular Assessment: Apicalregular Radial Pulsespalpable Pedal Pulsespalpable Extremitieswarm, well perfused Respiratory Assessment: Respirationsregular unlabored Air Exchangegood, equal Breath Soundsclear Neurological Assessment: Level of Consciousnessoriented, alert Mobilitymoves all extremities Able to Express Selfyes Age Appropriateyes Emotional Statuscalm Preop Education: Surgical Site Infection Preventionyes Pain Scales and Managementyes Language / Communication: Language / CommunicationEnglish Electronic Signatures: Claudia Tapia (RN) (Signed 21-Jan-2020 10:28) Authored: Preop Checklist Last Updated: 21-Jan-2020 10:28 by Claudia Tapia (RN) Normal [facility] Surgical Pathology Depar tmenton 01-21-2020 [facility] Surgical Pathology Department Name CHRISTIANO ZHENG Pathologist: ARTUOR NORRIS MD Date of Procedure: 01/21/2020 Date Received: 01/21/2020 Date Reported 01/27/2020 Submitting Physician: EAGLE MCMANUS M.D. Location: [facility] External # FINAL DIAGNOSIS A. SPLEEN, SPLENECTOMY: -- SPLEEN WITH RED PULP CONGESTION, SEE NOTE. NOTE: Sections reveal a spleen with normal architecture and congested and expanded red pulp. White pulp appears normal. By flow cytometry, see separate report for details, no clonal B or T cell population was detected.. The gross and/or microscopic findings were reviewed in conjunction with pathology resident, Vielka Pisano M.D. Electronically Signed Out By ARTURO NORRIS MD/BUSHRA By the signature on this report, the individual or group listed as making the Final Interpretation/Diagnosis certifies that they have reviewed this case. Clinical History: Hereditary Spherocytosis Specimens Submitted As: A: SPLEEN Gross Description: Received fresh, labeled with the patient's name and hospital number and spleen , are multiple fragments of spleen aggregating to 16.0 x 15.0 x 4.5 cm and weighing 563 grams. The splenic capsule is smooth and purple-clemente. The cut surface is dark red and soft. Malpighian corpuscles are not prominent. Lead Machinist sections are submitted in RPMI for flow hold. Lead Machinist sections are submitted in 3 cassettes. IAD iad/01/22/2020 Normal [facility] Comment on above: Performed By: #### U HCS ####[facility] Surgical Pathology [id number] [facility] [address] CORONAVIRUS 2019, SCREEN ASY MPTOMATICon 01-20-2020 CORONAVIRUS 2019,PCR NOT DETECTED Normal Not Detected [facility] Comment on above: Result Comment: . This assay is designed to detect SARS-CoV-2 based on replication of specific regions of the RNA from the SARS-CoV-2 virus. A Not Detected result does not preclude 2019-nCoV infection since the adequacy of sample collection and/or low viral burden may result in presence of viral nucleic acids below the clinical sensitivity of this test method. Fact sheet for providers: https://www.fda.gov/media/722900/download Fact sheet for patients: https://www.fda.gov/media/232527/download This test has received FDA Emergency Use Authorization [EUA] and has been verified by [facility] ([facility]). This test is only authorized for the duration of time that circumstances exist to justify the authorization of the emergency use of in vitro diagnostic tests for the detection of SARS-CoV-2 virus and/or diagnosis of COVID-19 infection under section 564(b)(1) of the Act, 21 U.S.C. 360bbb-3(b)(1), unless the authorization is terminated or revoked sooner. [facility] is certified under CLIA-88 as qualified to perform high complexity testing. Testing is performed in the [facility] laboratories [place] [address] [place] [address]. Performed By: #### C OVSC ####[id number] [id number] CORONAVIRUS 2019, SCREEN ASY MPTOMATICon 01-19-2020 Lab Specimen Source Nasal, Nasopharyngeal Normal [facility] Comment on above: Performed By: #### C OVSC ####[id number] [id number] EOSIN 5' MALEIMIDEon 020 Eosinophils (Bld) [#/Vol] Positive Normal [facility] Comment on above: Performed By: #### E O5MA ####[id number] [place] [address] PATIENT MEAN FLUORESCENCE 129 MFI Low 155 - 175 [facility] Comment on above: Performed By: #### E O5MA ####[id number] [id number] REVIEWED BY VINNIE Normal [facility] Comment on above: Result Comment: Eval uation for hereditary spherocytosis was performed using flow cytometry of red cells with the fluorescent dye eosin 5'maleimide. Target fluorescence is set at a value of 175 MFI (Mean Fluorescent Intensity). Patients with hereditary spherocytosis have decreased fluorescence compared to control, of more than 20 fluorescent units. This test was developed and its performance characteristics determined by the Department of Pathology, [facility], and has not been cleared or approved by the U.S. Food and Drug Administration. The laboratory is regulated under CLIA as qualified to perform high complexity testing. This test is used for clinical purposes. It shouldn't be regarded as investigational or for research. Performed By: #### E O5MA ####[id number] [place] [address] BILIRUBIN,DIRECTon 0 Bilirubin.direct [Mass/Vol] 0.5 mg/dL High 0.0 - 0.3 [facility] Comment on above: Performed By: #### D BILI #### [facility] [address] [place] [id number] CBC AND DIFFERENTIALon 12-30 % AUTOMATED IMMATURE GRAN 0.8 % Normal 0.0 - 0.9 [facility] Comment on above: Result Comment: Sisi ture Granulocyte Count (IG) includes promyelocytes, myelocytes and metamyelocytes but does not include bands. Percent differential counts (%) should be interpreted in the context of the absolute cell counts (cells/L). Performed By: #### C BCDF #### [facility] [address] [facility] [place] [address] Basophils (Bld) [#/Vol] 0.05 10*3/uL Normal 0.00 - 0.10 [facility] Comment on above: Performed By: #### C BCDF #### [facility] [address] [place] [address] Basophils/100 WBC (Bld) 0.6 % Normal 0.0 - 2.0 [facility] Comment on above: Performed By: #### C BCDF #### [facility] [address] [place] [address] Eosinophils (Bld) [#/Vol] 0.13 10*3/uL Normal 0.00 - 0.70 [facility] Comment on above: Performed By: #### C BCDF #### [facility] [address] [place] [address] Eosinophils/100 WBC (Bld) 1.6 % Normal 0.0 - 6.0 [facility] Comment on above: Performed By: #### C BCDF #### [facility] [address] [place] [address] Erythrocyte distribution width (RBC) [Ratio] 19.1 % High 11.5 - 14.5 [facility] Comment on above: Performed By: #### C BCDF #### [facility] [address] [facility] [place] [address] Hematocrit (Bld) [Volume fraction] 35.9 % Low 41.0 - 52.0 [facility] Comment on above: Performed By: #### C BCDF #### [facility] [address] [facility] [place] [address] Hemoglobin (Bld) [Mass/Vol] 12.6 g/dL Low 13.5 - 17.5 [facility] Comment on above: Performed By: #### C BCDF #### [facility] [address] [place] [address] Lymphocytes (Bld) [#/Vol] 3.17 10*3/uL Normal 1.20 - 4.80 [facility] Comment on above: Performed By: #### C BCDF #### [facility] [address] [place] [address] Lymphocytes/100 WBC (Bld) 40.1 % Normal 13.0 - 44.0 [facility] Comment on above: Performed By: #### C BCDF #### [facility] [address] [place] [address] MCHC (RBC) [Mass/Vol] 35.1 g/dL Normal 32.0 - 36.0 [facility] Comment on above: Performed By: #### C BCDF #### [facility] [address] [place] [address] MCV (RBC) [Entitic vol] 82 fL Normal 80 - 100 [facility] Comment on above: Performed By: #### C BCDF #### [facility] [address] [place] [address] Monocytes (Bld) [#/Vol] 0.39 10*3/uL Normal 0.10 - 1.00 [facility] Comment on above: Performed By: #### C BCDF #### [facility] [address] [place] [address] Monocytes/100 WBC (Bld) 4.9 % Normal 2.0 - 10.0 [facility] Comment on above: Performed By: #### C BCDF #### [facility] [address] [place] [address] Neutrophils (Bld) [#/Vol] 4.10 10*3/uL Normal 1.20 - 7.70 [facility] Comment on above: Performed By: #### C BCDF #### [facility] [address] [place] [address] Neutrophils/100 WBC (Bld) 52.0 % Normal 40.0 - 80.0 [facility] Comment on above: Performed By: #### C BCDF #### [facility] [address] [place] [address] Nucleated RBC/100 WBC (Bld) [Ratio] 0.3 /100 WBC Normal 0.0-0.0 [facility] Comment on above: Performed By: #### C BCDF #### [facility] [address] [place] [address] Platelets (Bld) [#/Vol] 166 10*3/uL Normal 150 - 450 [facility] Comment on above: Performed By: #### C BCDF #### [facility] [address] [facility] [place] [address] RBC (Bld) [#/Vol] 4.37 x10E12/L Low 4.50 - 5.90 [facility] Comment on above: Performed By: #### C BCDF #### [facility] [address] [facility] [place] [address] WBC (Bld) [#/Vol] 7.9 10*3/uL Normal 4.4 - 11.3 [facility] Comment on above: Performed By: #### C BCDF #### [facility] [address] [place] [address] COMPREHENSIVE PANELon 2019 Albumin [Mass/Vol] 5.5 g/dL High 3.4 - 5.0 [facility] Comment on above: Performed By: #### C MP #### [facility] [address] [place] [address] ALP [Catalytic activity/Vol] 50 U/L Normal 33 - 120 [facility] Comment on above: Performed By: #### C MP #### [facility] [address] [place] [address] ALT [Catalytic activity/Vol] 19 U/L Normal 10 - 52 [facility] Comment on above: Result Comment: Haily ents treated with Sulfasalazine may generate falsely decreased results for ALT. Performed By: #### C MP #### [facility] [address] [place] [address] Anion gap [Moles/Vol] 11 mmol/L Normal 10 - 20 [facility] Comment on above: Performed By: #### C MP #### [facility] [address] [facility] [place] [address] AST [Catalytic activity/Vol] 17 U/L Normal 9 - 39 [facility] Comment on above: Performed By: #### C MP #### DANIELLE CRUZ [facility] [address] [facility] [place] [address] Bilirubin [Mass/Vol] 2.5 mg/dL High 0.0 - 1.2 [facility] Comment on above: Performed By: #### C MP #### DANIELLE CRUZ [facility] [address] [place] [address] Calcium [Mass/Vol] 10.2 mg/dL Normal 8.6 - 10.3 [facility] Comment on above: Performed By: #### C MP #### DANIELLE CRUZ [facility] [address] [place] [address] Chloride [Moles/Vol] 105 mmol/L Normal 98 - 107 [facility] Comment on above: Performed By: #### C MP #### DANIELLE CRUZ [facility] [address] [place] [address] Creatinine [Mass/Vol] 0.99 mg/dL Normal 0.50 - 1.30 [facility] Comment on above: Performed By: #### C MP #### DANIELLE CRUZ [facility] [address] [place] [address] GFR- AM. >60 Normal >60 [facility] Comment on above: Result Comment: CALC ULATIONS OF ESTIMATED GFR ARE PERFORMED USING THE MDRD STUDY EQUATION FOR THE IDMS-TRACEABLE CREATININE METHODS. CLIN CHEM 2007;53:766-72 Performed By: #### C MP #### DANIELLE CRUZ [facility] [address] [place] [address] GFR-NON AM. >60 Normal >60 [facility] Comment on above: Performed By: #### C MP #### DANIELLE CRUZ [facility] [address] [place] [address] Glucose [Mass/Vol] 97 mg/dL Normal 74 - 99 [facility] Comment on above: Performed By: #### C MP #### [facility] [address] [facility] [place] [address] HCO3 (Bld) [Moles/Vol] 29 mmol/L Normal 21 - 32 [facility] Comment on above: Performed By: #### C MP #### DANIELLE CANCER [facility] [address] [place] [address] Potassium [Moles/Vol] 4.2 mmol/L Normal 3.5 - 5.3 [facility] Comment on above: Performed By: #### C MP #### DANIELLE CANCER [facility] [address] [place] [address] Protein [Mass/Vol] 7.4 g/dL Normal 6.4 - 8.2 [facility] Comment on above: Performed By: #### C MP #### DANIELLE CANCER [facility] [address] [place] [address] Sodium [Moles/Vol] 141 mmol/L Normal 136 - 145 [facility] Comment on above: Performed By: #### C MP #### DANIELLE CANCER [facility] [address] [place] [address] Urea nitrogen [Mass/Vol] 11 mg/dL Normal 6 - 23 [facility] Comment on above: Performed By: #### C MP #### DANIELLE CANCER [facility] [address] [place] [address] Clinic Note - Heme Onc-Benig n Heme New Visiton 12-31-2019 Clinic Note - Heme Onc-Benign Heme New Visit Patient Visit Information: Visit Type: Benign Heme New Visit History of Present Illness: Chief Complaint: I have a big spleen Interval History: 12/31/19 HPI: This is the first office visit for this 24 yo male who last month had a febrile illness and noitced a LUQ mass that turned out to be his spleen. In both by history and physical exam, the patient had splenomegaly. Unfortunately, the abd CT that gives the size was not present in the records that came with the patient. The patient also had an elevated indirect bilirubin. The acute illness resolved, but he cannot go back to work until the spleen is removed because it has a risk to rupture. PMHx: at 14 yo- he had a cholecystecmy for a GB stone. if bilirubin stone. Also had a hernia operation at 17 yo. FHx: mother had splenectomy at 12 yo for hereditary spherocytosis. No one else in family has this problem. Mom has done well. Grandmother had lung cancer - 72 yo; grandfather of COPD at 70 yo. 2 healthy sisters. SHx: was in for 5 years, Review of Systems: System ReviewAll Systems: Negative GastrointestinalComments noted fullnes in RUQ Allergies and Intolerances: Allergies: morphine: Drug, Facial Swelling, Active Outpatient Medication Profile: * Incomplete Medication History as of 31-Dec-2019 10:17 documented in Structured Notes folic acid 1 mg oral tablet: Last Dose Taken: , 1 tab(s) orally once a day Social History: Social Substance History Social Historydenies smoking, alcohol and drug use Smoking Statusnever smoker Tobacco Usedenies Alcohol Usedenies Drug Usedenies Physical Exam: Constitutional: Well developed, awake/alert/oriented x3, no distress, alert and cooperative Eyes: PERRL, EOMI, clear sclera ENMT: mucous membranes moist, no apparent injury, no lesions seen Head/Neck: Neck supple, no apparent injury, thyroid without mass or tenderness, No JVD, trachea midline, no bruits Respiratory/Thorax: Patent airways, CTAB, normal breath sounds with good chest expansion, thorax symmetric Cardiovascular: Regular, rate and rhythm, no murmurs, 2+ equal pulses of the extremities, normal S 1and S 2 Gastrointestinal: Nondistended, soft, non-tender, no rebound tenderness or guarding, no masses palpable, no organomegaly, +BS, no bruits; previous scar on abd from cholecystectomy. Musculoskeletal: ROM intact, no joint swelling, normal strength Extremities: normal extremities, no cyanosis edema, contusions or wounds, no clubbing Neurological: alert and oriented x3, intact senses, motor, response and reflexes, normal strength Lymphatic: No significant lymphadenopathy Psychological: Appropriate mood and behavior Skin: Warm and dry, no lesions, no rashes Lab Results Results CBC date/time WBC HGB HCT PLT Neut 31-Dec-2019 11:21 7.9 12.6(L) 35.9(L) 166 4.10 BMP date/time NA K CL CO2 BUN CREAT 31-Dec-2019 11:21 141 4.2 105 N/A 11 0.99 LDH date/time LDH 31-Dec-2019 11:21 N/A 31-Dec-2019 11:21 165 I have reviewed these laboratory results: Reticulocyte Count [Drawn 31-Dec-2019 11:21:00], Comprehensive Metabolic Panel [Drawn 31-Dec-2019::00], Complete Blood Count + Differential [Drawn 31-Dec-2019::00], Lactate Dehydrogenase, Serum [Drawn 31-Dec-2019:21:00], Ferritin, Serum [Drawn 31-Dec-2019::00], Uric Acid, Serum [Drawn 31-Dec-2019::00], Sedimentation Rate, Erythrocyte [Drawn 31-Dec-2019::00], Bilirubin, Serum Direct - Conjugated [Drawn 31-Dec-2019::00], Haptoglobin, Serum [Drawn 31-Dec-2019::00]. Assessment and Plan: Assessment and Plan: Assessment: This patient has a normochromic, normocytic mild anemia with 8.7% retic, elevated total and indirect (2.0) bilirubin, low haptoglobin (<30) with a normal LDH. His spleen is palpable. Could be HS - I sent for definitive flow cytometry studies today. At [facility], an abnormal band 3 for HS was detected. If all consistent, I will refer patient to Dr. Mihai Mcmanus for splenectomy. Care Team (For informational use or entering new Care Team Members): Tung Mulligan(Referring): , 31-Dec-2019 09:48 Addie Rhodes(Primary): , 31-Dec-2019 09:48 Select Yes when ready to send to Provider(s) Listed Above: Note sent to providers named above Electronic Signatures for Addendum Section: [place]) (Signed Addendum 31-Dec-2019 16:52) Note: On review of his peripheral smear he has a classic picture of hereditary spherocytosis with NRBCs, polychromasia, and, predominantly spherocytes on peripheral smear. Electronic Signatures: [place]) (Signed 31-Dec-2019 13:47) Authored: Patient Visit Information, History of Present Illness, Review of Systems, Allergies and Outpatient Medication Profile, Social History, Physical Exam, Results, Assessment and Plan, To Send Document via Auto Fax Last Updated: 31-Dec-2019 16:52 by [place]) Normal [facility] Clinic Note - Intakeon 12-30 Clinic Note - Intake Patient Visit Information: Visit TypeNew Visit, Follow Up Visit Source of Informationpatient Vital Signs: Temp (degrees C)36.3 degrees C Temperaturecore Heart Rate (beats/min)70 beats per minute Respiration (breaths/min)20 breath per minute BP Systolic (mm Hg)116 mmHg BP Diastolic (mm Hg)61 mmHg BP Mean (mm Hg)79 mmHg Height in cm176 centimeter(s) Height Methodmeasured Heightstanding Weight in kg73.8 kilogram(s) Weight Methodstanding scale BMI (kg/m2)23.8 BSA (m2)1.89 SpO2 (%)100 % SpO2 Patient Onroom air Pain Screening: Patient States Painno (0) Assistant Center Manager for intimate exam offered to patient: Patient hasdeclined Allergies: morphine: Drug, Facial Swelling, Active Outpatient Medication Profile: * Incomplete Medication History as of 31-Dec-2019 10:17 documented in Structured Notes folic acid 1 mg oral tablet: Last Dose Taken: , 1 tab(s) orally once a day Travel History: COVID-19 Screening Completedno exposure or symptoms Falls: Have you fallen in the last 6 monthsno Do you have a fear of fallingno Do you feel you need assistanceno Spiritual/Procedural: Spiritual/cultural/relig ious practices important for us to knowno Adv Dir: Living Willno Healthcare POAno Declaration of Mental Health Treatmentno Living Will Formsdeclines more information Mental Health Formsdeclines more information Healthcare POA Formsdeclined more information Violence: Do you feel UNSAFE going back to the place you are livingno Are you or have you been threatened or abused physically,emotionally or sexually abused by anyoneno Depression: 1) During the past 2 wks, have you felt down, depressed or hopelessno 4) Have you had thoughts of harming anyone elseno 2) During the past 2 wks, have you felt little interest/pleasure doing things no 3) Have you had thoughts of harming yourselfno Substance: How many times in the past year have you hd 5 or more drinks within 24 hours0 How many times in past year have you used recreational or prescription drugs for non-medical reasons0 Patient Declined to Answerno Nutrition/Learning: In the past month, was there any day when you or anyone in your family went hungry because you didn't have enough foodno Primary LanguageEnglish Do you, or others today, need extra help due to problems with hearing,speaking, seeing, moving around or learningno Other Boss Learnerno Electronic Signatures: Stefania Stout) (Signed 31-Dec-2019 10:17) Authored: Patient Visit Information, Vital Signs, Assistant Center Manager, Allergies, Outpatient Medication Profile, Adult Admission Risk Screen Last Updated: 31-Dec-2019 10:17 by Stefania Stout) Normal [facility] EBV PANELon 12-31-2019 EBV EA-D IGG ANTIBODY Positive Abnormal NEGATIVE [facility] Comment on above: Performed By: #### E BVP1 ####[id number] [place] [address] EBV INTERPRETATION SEE BELOW Normal [facility] Comment on above: Result Comment: . EB V INTERPRETATION CHART . VCA-IGG VCA-IGM NA-IGG EA-IGG . PRIMARY ACUTE +/- +/- - +/- LATE ACUTE + +/- +/- +/- RECOVERING + - - + PREVIOUS INFECTION + - +/- - Performed By: #### E BVP1 ####[id number] [place] [address] EBV NA-1 IGG ANTIBODY Negative Normal NEGATIVE [facility] Comment on above: Performed By: #### E BVP1 ####[id number] [place] [address] VCA IGG ANTIBODY Positive Abnormal NEGATIVE [facility] Comment on above: Performed By: #### E BVP1 ####[id number] [place] [address] VCA IGM ANTIBODY Positive Abnormal NEGATIVE [facility] Comment on above: Performed By: #### E BVP1 ####[id number] [place] [address] EOSIN 5' MALEIMIDEon 020 INTERPRETATION SEE BELOW Normal [facility] Comment on above: Performed By: #### E O5MA ####[id number] [place] [address] FERRITINon 12-31-2019 Ferritin [Mass/Vol] 344 ug/L High 20 - 300 [facility] Comment on above: Performed By: #### F ERRI ####[id number] [place] [address] FLOW CYTOMETRY TESTon 2019 FLOW TEST ORDERED EOSIN 5' MALEIMIDE Normal [facility] Comment on above: Performed By: #### F CTST ####[id number] [place] [address] SOURCE WHOLE BLD-EDTA Normal [facility] Comment on above: Performed By: #### F CTST ####[id number] [place] [address] HAPTOGLOBINon 12-31-2019 HAPTOGLOBIN <30 Normal 30 - 200 [facility] Comment on above: Performed By: #### H APTO #### [facility] [address] [place] [address] LDHon 12-31-2019 LDH 165 U/L Normal 84 - 246 [facility] Comment on above: Performed By: #### L DH #### [facility] [address] [place] [address] RETICULOCYTESon 12-31-2019 IMMATURE RETIC FRACTION 10.8 % Normal 0.0 - 16.0 [facility] Comment on above: Performed By: #### R ETIC #### [facility] [address] [place] [address] RETIC # 0.379 x10E12/L High 0.022 - 0.118 [facility] Comment on above: Performed By: #### R ETIC #### [facility]TR [address] [place] [address] RETIC % 8.7 % High 0.5 - 2.0 [facility] Comment on above: Performed By: #### R ETIC #### [facility] [address] [place] [address] RETIC-HB 35 pg Normal 28 - 38 [facility] Comment on above: Performed By: #### R ETIC #### [facility] [address] [place] [address] SEDIMENTATION RATE, ERYTHROC YTEon 12-31-2019 SEDIMENTATION RATE, ERYTHROCYTE <1 Normal 0 - 15 [facility] Comment on above: Performed By: #### E SRWS #### [facility] [address] [place] [address] URIC ACIDon 12-31-2019 Urate [Mass/Vol] 5.8 mg/dL Normal 4.0 - 7.5 [facility] Comment on above: Result Comment: Dacia puncture immediately after or during the administration of Metamizole may lead to falsely low results. Testing should be performed immediately prior to Metamizole dosing. Performed By: #### U MELISA #### [facility] [address] [place] [address] Oncology Nurse Navigator-ini tial diagnosison 12-30-2019 Oncology Nurse Navigator-initial diagnosis Summary/Preview: Nurse Navigator Note Care Navigation Interaction with patient Visit Type: initial evaluation Location of Visit: telephone Is this your first navigation interaction with this patient yes Continuum of Care: initial diagnosis Diagnosis: benign heme Malignant/non-malignant: non-malignant Records: patient/portal Assessment Patient Needs and Barriers: access to care Access to Care: transportation, distance, insurance and appointment availability Acuity: 2 Team Communications 12/30/19 Hodan Zheng is a 24 year old male referred to benign hematology from Dr. Tung Mulligan for hereditary spherocytosis and splenomegaly. His mother has a history of splenectomy and blood clots. Appointment information provided with date, time, and location. Contact information provided for questions and concerns. Heidi Velasco RN Electronic Signatures: Heidi Velasco (STAFF N) (Signed 30-Dec-2019 14:56) Authored: Care Navigation Last Updated: 30-Dec-2019 14:56 by Heidi Velasco (STAFF N) Normal [facility] PROGRESSon 12-02-2019 PROGRESS HNO ID: [id number] Author: Hollie Arriaza Service: ? Author Type: Genetic Counselor Type: Progress Notes Filed: 12/10/2019 10:36 AM Note Text: Patient Name and confirmed at initiation of visit. Dr. Addie Rhodes requested a genetic consultation for Christiano Zheng, a 24 year old male, for discussion of his family history. Prior to the visit, the genetic counselor reviewed records in the patient's EMR including, but not limited to, available clinic notes, physician consultations, laboratory tests, imaging reports, cardiac studies, and other investigations and evaluations. The genetic counselor also reviewed the case with Dr. Whatley as needed prior to seeing the patient. Today's appointment was completed as a telephone visit. HISTORY OF PRESENT CONDITION: Mr. Zheng was referred to Genetics due to his interest in learning about his genetic susceptibility to the conditions in his family history, and to medical conditions in general. He is currently being treated for hemolytic anemia, with a possible splenectomy being planned. His mother also had anemia and underwent splenectomy. The remainder of his family history is detailed below. PERTINENT PAST MEDICAL AND SURGICAL HISTORY INCLUDES: Jaundice as baby Gallbladder removed 10 years ago Hernia repair 8 years ago History of ADD in childhood RELEVANT EVALUATIONS TO DATE: None PREVIOUS GENETIC TESTING: None SOCIAL HISTORY: Lives in [place], [place] with his . FAMILY HISTORY: - Patient's ethnicity: Maternal [place]oan; Paternal [place]. - Parental consanguinity: No A three generation pedigree was collected and will be scanned below. Pertinent findings are noted. Children: None. Full siblings and their children: 27-year-old and 18-year-old sisters, in good health aside from wearing glasses. They do not have children. Half siblings and their children: None Mother: 51 years old. Hemolytic anemia with splenectomy, blood clots secondary to splenectomy, osteopenia. Maternal aunts and uncles and their children: Two uncles and one aunt. One uncle had multiple heart attacks in his 40's. Maternal grandmother: Approximately 70 years old. Lung cancer, no history of smoking. Maternal grandfather: in his 60's-70's. Heart disease, smoking, alcohol. Additional maternal relatives: Grandmother's siblings with diabetes. Father: 51 years old. Thyroid disease, borderline diabetes. Paternal aunts and uncles and their children: One uncle with back and ankle issues and thyroid disease. His daughter has back issues starting in her teens and his son has mild autism. Paternal grandmother: In her late 60's. Rheumatoid arthritis, joint replacements, smoking. Paternal grandfather: at 66 from [place]. History of smoking and heart disease. The remainder of Mr. Zheng's reported family history is negative for known or suspected genetic disease, defects, developmental delay/intellectual disability, infertility, recurrent loss, and unexplained infant .. GENETIC COUNSELING RISK ASSESSMENT AND DISCUSSION: Christiano Zheng is a 24 year old male with a history of hemolytic anemia. We reviewed his family history in detail and discussed available testing options. Mr. Zheng?s maternal uncle had early-onset heart disease. Coronary artery disease/heart disease (CAD) is a very common multifactorial disease caused by a combination of genetic and environmental factors. At this time the specific genes that may be involved in CAD are largely unknown. Common risk factors for CAD include, but are not limited to, family history of CAD, tobacco use, high levels of saturated fat consumption, weight, elevated blood pressure, elevated cholesterol levels, and male sex. I suggested that Mr. Zheng discuss appropriate screening for CAD with his physician. Mr. Zheng also has several family members with autoimmune conditions, including thyroid disease and rheumatoid arthritis. We discussed that autoimmune disorders encompass a broad category of related disease in which a person's immune system attacks his or her own tissues. These disorders typically are chronic with more women than men affected and occur with prevalence rates ranging from less than 5 per 100,000 (i.e. chronic active hepatitis, uveitis,) to more than 500 per 100,000 (Graves disease, rheumatoid arthritis, thyroiditis). At this time, the specific genes that may be involved in autoimmune diseases are largely unknown, although these conditions tend to cluster in family members. Mr. Zheng expressed interest in genetic screening panel tests, and we discussed the benefits and limitations of various testing options. I offered the Genetic Health Screen through [employer], which consists of 147 genes. These genes are primarily related to hereditary cancer and cardiovascular conditions. While his family history is not suggestive of one of these conditions, we discussed that the identification of a mutation in one of these genes may help his providers to tailor his medical management. We also reviewed the availability of carrier screening panels, the purpose of which is to provide information regarding the risk of having a child with a hereditary condition.?Most of the conditions on these panels are inherited in an autosomal recessive pattern, meaning that a child would have to inherit two mutations, one from each parent, in order to be affected. If?Mr. Zheng and his were both?found to be carriers?for a recessive condition, each of their children would have a 25% chance of having the condition. After discussion, Mr. Zheng wished to think about these testing options. I will send him some printed materials about proactive genetic screening as well as carrier screening, and he will contact me if he wishes to pursue testing or with any additional questions. FOLLOW-UP PLAN: 1. Patient will discuss family history risks with PCP. 2. I will send information about genetic health screen and carrier screening. The patient was seen for a total of 35 minutes via phone call. This plan is being carried out per Dr. Whatley's recommendations. Hollie Arriaza, MS, [facility] Licensed Genetic Counselor [facility] CC: Dr. Chacorta Alex, admin dir CC: Christianoroxy Zheng [address] [place] [id number] Addie Rhodes, DO [address] [place] [address] Normal [facility] Vital Signs Date Time Vital Sign Value Performing Clinician Facility 05-04-2023 12:15-0500 Body height 177.8 cm Zoila Webb Other [facility] Other 05-04-2023 12:15-0500 Body mass index (BMI) [Ratio] 23.53 kg/m2 Zoila Webb [facility] 05-04-2023 12:15-0500 Body temperature 98.9 [degF] Zoila Webb Other [facility] Other 05-04-2023 12:15-0500 Body weight 74.39 kg Zoila Webb Other [facility] Other 05-04-2023 12:15-0500 Diastolic blood pressure 76 mm[Hg] Zoila Webb Other [facility] Other 05-04-2023 12:15-0500 Respiratory rate 18 /min Zoila Webb Other [facility] Other 05-04-2023 12:15-0500 SaO2% (BldA) [Mass fraction] 80 % Zoila Jon Other [facility] Other 05-04-2023 12:15-0500 Systolic blood pressure 127 mm[Hg] Zoila Jon Other [facility] Other 03-28-2023 10:43-0400 Blood Pressure Location MABLE [facility] 03-28-2023 10:43-0400 Body temperature 98.6 [degF] MABLE [facility] 03-28-2023 10:43-0400 Diastolic blood pressure 78 mm[Hg] MABLE [facility] 03-28-2023 10:43-0400 Heart rate 77 /min [facility] 03-28-2023 10:43-0400 SaO2% (BldA) [Mass fraction] 98 % [facility] 03-28-2023 10:43-0400 Systolic blood pressure 121 mm[Hg] [facility] 07-04-2022 15:31-0500 Diastolic blood pressure 79 mm[Hg] Leah [employer] [facility] 07-04-2022 15:31-0500 Heart rate 95 /min Leah Myrick [facility] 07-04-2022 15:31-0500 Mean blood pressure 96 mm[Hg] Leah Myrick [facility] 07-04-2022 15:31-0500 Systolic blood pressure 130 mm[Hg] Leah Myrick [facility] 06-13-2022 14:57-0500 Heart rate 74 /min Sen Jenifer [facility] 06-13-2022 14:57-0500 SaO2% (BldA) [Mass fraction] 99 % Sen Jenifer [facility] 06-13-2022 14:57-0500 Diastolic blood pressure 79 mm[Hg] Sen Jenifer [facility] 06-13-2022 14:57-0500 Mean blood pressure 93 mm[Hg] Sen Jenifer [facility] 06-13-2022 14:57-0500 Systolic blood pressure 122 mm[Hg] Sen Jenifer [facility] 06-13-2022 14:57-0500 Respiratory rate 14 /min Sen Jenifer [facility] 06-13-2022 14:50-0500 Diastolic blood pressure 88 mm[Hg] Sen Jenifer [facility] 06-13-2022 14:50-0500 Heart rate 71 /min Sen Jenifer [facility] 06-13-2022 14:50-0500 Respiratory rate 14 /min Sen Jenifer [facility] 06-13-2022 14:50-0500 SaO2% (BldA) [Mass fraction] 98 % Sen Jenifer [facility] 06-13-2022 14:50-0500 Systolic blood pressure 147 mm[Hg] Sen Jenifer [facility] 06-13-2022 14:35-0500 Heart rate 81 /min Sen Jenifer [facility] 06-13-2022 14:35-0500 SaO2% (BldA) [Mass fraction] 98 % Sen Jenifer [facility] 06-13-2022 14:35-0500 Respiratory rate 16 /min Sen Jenifer [facility] 06-13-2022 14:33-0500 Diastolic blood pressure 79 mm[Hg] Sen Jenifer [facility] 06-13-2022 14:33-0500 Mean blood pressure 94 mm[Hg] Sen Jenifer [facility] 06-13-2022 14:33-0500 Systolic blood pressure 123 mm[Hg] Sen Jenifer [facility] 06-13-2022 14:33-0500 Body temperature 97.7 [degF] Sen Jenifer [facility] 05-23-2022 14:51-0500 Diastolic blood pressure 78 mm[Hg] Sen Jenifer [facility] 05-23-2022 14:51-0500 Heart rate 96 /min Sen Jenifer [facility] 05-23-2022 14:51-0500 Mean blood pressure 96 mm[Hg] Sen Jenifer [facility] 05-23-2022 14:51-0500 Respiratory rate 16 /min Sen Jenifer [facility] 05-23-2022 14:51-0500 Systolic blood pressure 131 mm[Hg] Sen Burgess [facility] 05-19-2022 10:04-0500 Diastolic blood pressure 81 mm[Hg] Karan العراقي [facility] 05-19-2022 10:04-0500 Heart rate 91 /min Karan العراقي [facility] 05-19-2022 10:04-0500 Respiratory rate 18 /min Karan العراقي [facility] 05-19-2022 10:04-0500 SaO2% (BldA) [Mass fraction] 97 % Karan العراقي [facility] 05-19-2022 10:04-0500 Systolic blood pressure 132 mm[Hg] Karan العراقي [facility] 05-14-2022 22:45-0500 Diastolic blood pressure 78 mm[Hg] Jose Brandon [facility] 05-14-2022 22:45-0500 Heart rate 79 /min Jose Brandon [facility] 05-14-2022 22:45-0500 Respiratory rate 18 /min Jose Brandon [facility] 05-14-2022 22:45-0500 SaO2% (BldA) [Mass fraction] 98 % Jose Brandon [facility] 05-14-2022 22:45-0500 Systolic blood pressure 126 mm[Hg] Jose Brandon [facility] 05-14-2022 19:34-0500 Body temperature 99.14 [degF] Jose Brandon [facility] 05-14-2022 19:34-0500 Diastolic blood pressure 84 mm[Hg] Jose Brandon [facility] 05-14-2022 19:34-0500 Heart rate 84 /min Jose Taylor [facility] 05-14-2022 19:34-0500 Respiratory rate 18 /min Jose Taylor [facility] 05-14-2022 19:34-0500 SaO2% (BldA) [Mass fraction] 97 % Jose Taylor [facility] 05-14-2022 19:34-0500 Systolic blood pressure 130 mm[Hg] Jose Taylor [facility] 05-12-2022 11:41-0500 Blood Pressure Location Angelaestee [facility] 05-12-2022 11:41-0500 Body temperature 98.24 [degF] Angela [facility] 05-12-2022 11:41-0500 Diastolic blood pressure 74 mm[Hg] Angela [facility] 05-12-2022 11:41-0500 Heart rate 99 /min Angela Cogar [facility] 05-12-2022 11:41-0500 SaO2% (BldA) [Mass fraction] 97 % Angela [facility]og[facility] 05-12-2022 11:41-0500 Systolic blood pressure 110 mm[Hg] Angela [facility] 05-08-2022 14:16-0500 Diastolic blood pressure 77 mm[Hg] Sen Jenifer [facility] 05-08-2022 14:16-0500 Heart rate 75 /min Sen Jenifer [facility] 05-08-2022 14:16-0500 Mean blood pressure 93 mm[Hg] Sen Burgess [facility] 05-08-2022 14:16-0500 Respiratory rate 12 /min Sen Burgess [facility] 05-08-2022 14:16-0500 Systolic blood pressure 126 mm[Hg] Sen Burgess [facility] 03-28-2022 14:12-0400 Blood Pressure Location Lelia Klonk [facility] 03-28-2022 14:12-0400 Body temperature 98.06 [degF] Lelia Klonk [facility] 03-28-2022 14:12-0400 Diastolic blood pressure 72 mm[Hg] Lelia Klonk [facility] 03-28-2022 14:12-0400 Heart rate 73 /min Lelia Klonk [facility] 03-28-2022 14:12-0400 SaO2% (BldA) [Mass fraction] 97 % Lelia Klonk [facility] 03-28-2022 14:12-0400 Systolic blood pressure 124 mm[Hg] Lelia Klonk [facility] 02-03-2022 10:53-0400 Blood Pressure Location Lelia Klonk [facility] 02-03-2022 10:53-0400 Diastolic blood pressure 78 mm[Hg] Lelia Klonk [facility] 02-03-2022 10:53-0400 Heart rate 86 /min Lelia Klonk [facility] 02-03-2022 10:53-0400 SaO2% (BldA) [Mass fraction] 98 % Lelia Klonk [facility] 02-03-2022 10:53-0400 Systolic blood pressure 120 mm[Hg] Lelia Klonk [facility] 12-23-2021 16:44-0400 Body temperature 97.34 [degF] Lelia Klonk [facility] 12-23-2021 16:44-0400 Diastolic blood pressure 70 mm[Hg] Lelia Klonk [facility] 12-23-2021 16:44-0400 Heart rate 80 /min Lelia Klonk [facility] 12-23-2021 16:44-0400 SaO2% (BldA) [Mass fraction] 96 % Lelia Klonk [facility] 12-23-2021 16:44-0400 Systolic blood pressure 110 mm[Hg] Lelia Klonk [facility] 11-04-2021 10:11-0400 Body temperature 97.7 [degF] Cecil Novak [facility] 11-04-2021 10:11-0400 Diastolic blood pressure 88 mm[Hg] Cecil Novak [facility] 11-04-2021 10:11-0400 Heart rate 64 /min Cecil Novak [facility] 11-04-2021 10:11-0400 Respiratory rate 16 /min Cecil Novak [facility] 11-04-2021 10:11-0400 SaO2% (BldA) [Mass fraction] 98 % Cecil Novak [facility] 11-04-2021 10:11-0400 Systolic blood pressure 150 mm[Hg] Cecil Novak [facility] 01-22-2020 14:51-0400 Body temperature 37.0 degrees C [facility] Comment on above: Result Comment: NOTE: PATIENT RESULTS AR E NOT CORRECTED FOR TEMPERATURE. Performed By: #### L #### [facility] [address] [place] [address] Encounters Encounter Date Encounter Type Care Provider Facility Start: 05-04-2023 End: 05-04-2023 ambulatory Zoila Webb Other [facility] Other Start: 05-04-2023 Office outpatient ne w 30 minutes Zoila Webb [facility] Start: 03-28-2023 End: 03-29-2023 ambulatory MABLE STEPHENSON Facility[facility] Start: 03-28-2023 End: 03-29-2023 ambulatory MABLE STEPHENSON Facility: [facility] Start: 03-28-2023 End: 03-28-2023 Patient encounter procedure MABLE STEPHENSON [facility] Start: 08-04-2022 End: 08-05-2022 ambulatory PA-C Leah Myrick Facility:[facility] Start: 07-28-2022 End: 07-29-2022 ambulatory Leah Myrick Facility:[facility] Start: 07-04-2022 End: 07-05-2022 ambulatory PA-C Leah Myrick Facility:[facility] Start: 07-04-2022 End: 07-04-2022 Pain Management Leah Myrick [facility] Start: 06-13-2022 End: 06-14-2022 ambulatory MD Sen Burgess Facility:[facility] Start: 06-13-2022 End: 06-13-2022 Pain Management Sen Burgess [facility] Start: 06-06-2022 End: 06-06-2022 Emergency department patient visit Leah Roblesyvrose Facility:[facility] Start: 05-23-2022 End: 05-24-2022 ambulatory LELIA FRANKLIN Facility:[facility] Start: 05-23-2022 ambulatory LELIA FRANKLIN Facility :[facility] Start: 05-23-2022 End: 05-23-2022 Pain Management Sen Burgess [facility] Start: 05-19-2022 End: 05-20-2022 ambulatory Sen Burgess Facility:[facility] Start: 05-19-2022 End: 05-19-2022 Patient encounter procedure Sen Burgess [facility] Start: 05-19-2022 End: 05-19-2022 Emergency department patient visit Karan Nazarioe Facility:[facility] Start: 05-19-2022 End: 05-19-2022 Emergency department patient visit Karan العراقي [facility] Start: 05-14-2022 End: 05-15-2022 Emergency department patient visit Jose Taylor Facility:[facility] Start: 05-14-2022 End: 05-14-2022 Emergency department patient visit Jose Taylor [facility] Start: 05-12-2022 End: 05-13-2022 ambulatory Angela M Apolonia Facility:[facility] Start: 05-12-2022 End: 05-12-2022 Patient encounter procedure Angela Hook Apolonia [facility] Start: 05-08-2022 End: 05-09-2022 ambulatory LELIA FRANKLIN Facility:[facility] Start: 05-08-2022 End: 05-08-2022 Pain Management Sen Burgess [facility] Start: 03-28-2022 End: 03-28-2022 Patient encounter procedure Lelia Franklin [facility] Start: 03-07-2022 End: 03-07-2022 Patient encounter procedure Yamelshannon Mehdi Wharton [facility] Start: 02-03-2022 End: 02-03-2022 Patient encounter procedure Lelia Franklin [facility] Start: 12-23-2021 End: 12-23-2021 Patient encounter procedure Lelia Franklin [facility] Start: 11-04-2021 End: 11-04-2021 Emergency department patient visit Cecil Novak [facility] Procedures Date Procedure Procedure Detail Performing Clinician Start: 06-13-2022 Epidural injection o f cervical spine using fluoroscopic guidance Leah Myrick Comment on above: C6/7 PRASANNA-100% for 3 days Start: 01-21-2020 Antibody screen Comment on above: Performed By: #### T +S ####[id number] [place] [address] Cholecystectomy 1 Cecil Valerafrancy sanford Comment on above: 2009 2009 Cholecystectomy 2 Leah hsieh Comment on above: 2009 Hernia repair Cecil Novak Splenectomy Basem Wharton Immunizations Immunization Date Immunization Notes Care Provider [facility] 11-04-2021 tetanus toxoid, reduced diphtheria toxoid, and acellular pertussis vaccine, adsorbed; Translations: [Boostrix (Tdap)] Cecil Novak [facility] 02-06-2006 Hep A, unspecified formulation [facility] 02-06-2006 tetanus toxoid, reduced diphtheria toxoid, and acellular pertussis vaccine, adsorbed [facility] 06-28-2005 influenza virus vaccine, unspecified formulation [facility] Payers Date Payer Category Payer Unknown [id number]. [id number] 1994 Unknown [id number] 2.16.8 [id number] 1994 Unknown [id number] 2.16.8 [id number] 1994 Unknown [id number] 2.16.8 [id number]. 1994 Unknown [id number] 2.16.8 [id number] 1994 Unknown [id number] 2.16.8 [id number] 1994 Unknown [id number] 2.16.8 [id number] 1994 Unknown [id number] 2.16.8 [id number] 1994 Unknown [id number] 2.16.8 [id number] 1994 Unknown [id number] 2.16.8 [id number] 1994 Unknown [id number] 2.16.8 [id number] 1994 Unknown [id number] 2.16.8 [id number] 1994 Unknown [id number] 2.16.8 [id number] 1994 Unknown [id number] 2.16.8 [id number] 1994 Unknown [id number] 2.16.8 [id number] Social History Date Type Detail Facility Tobacco [facility] Comment on above: pt denies Sex Assigned At Male [facility] Start: 12-23-2021 End: 03-28-2023 Tobacco smoking status Never smoked tobacco (finding) [facility] Comment on above: pt denies pt denies Tobacco smoking status Never [facility] Comment on above: pt denies pt denies Functional Status Date Assessment Result Facility 03-28-2023 Functional Status N/A [facility] 07-04-2022 Functional Status N/A [facility] 06-13-2022 Functional Status N/A [facility] 05-23-2022 Functional Status N/A [facility] 05-19-2022 Functional Status Yes [facility] 05-14-2022 Functional Status Yes [facility] 05-12-2022 Functional Status N/A [facility] 05-08-2022 Functional Status N/A Cale Constantino [facility] 03-28-2022 Functional Status N/A [facility] 02-03-2022 N/A [facility] Clinical Notes 11-04-2021 to 05-04-2023 Note Date & Type Note Facility 05-04-2023 Evaluation note Encounter Date Diagnosis Assessment Notes Apr, Contact with and (suspected) exposure to covid-19 (ICD-10 - Z20.822) Apr, COVID-19 (ICD-10 - U07.1) Rapid COVID test performed in office today. Advised patient that test was positive. Rapid influenza A/B test negative. Instructed patient to isolate per CDC guidelines for 5 days from symptom onset, mask 5 days following. May return to work/activities outside home after isolation period as long as symptoms are improving and has been afebrile for 24 hours without use of antipyretic. Will send in Rx of prednisone to use as directed. Advised patient that treatment of COVID is with viral supportive care, OTC cold medications as directed, Tylenol as needed for body aches/fever. Increase fluids and rest. Encouraged use of cool mist humidifier. Follow-up with PCP to advise of positive result and further management. Immediate eval for SOB, difficulty, chest pain, fevers that do not break with antipyretic or any other concerning symptoms as reviewed on patient education handout. Patient verbalizes understanding and is agreeable to treatment plan. Patient left in stable condition [facility] Other 10-11-2023 Hospital Discharge instructions Patient Education 03/28/2023 11:46:08 Viral Respiratory Infection, Tnka-Mj-Kkas Viral Respiratory Infection A viral respiratory infection is an illness that affects parts of the body that are used for breathing. These include the lungs, nose, and throat. It is caused by a germ called a virus. Some examples of this kind of infection are: A cold. The flu (influenza). A respiratory syncytial virus (RSV) infection. What are the causes? This condition is caused by a virus. It spreads from person to person. You can get the virus if: You breathe in droplets from someone who is sick. You come in contact with people who are sick. You touch mucus or other fluid from a person who is sick. What are the signs or symptoms? Symptoms of this condition include: A stuffy or runny nose. A sore throat. A cough. Shortness of breath. Trouble breathing. Yellow or green fluid in the nose. Other symptoms may include: A fever. Sweating or chills. Tiredness (fatigue). Achy muscles. A headache. How is this treated? This condition may be treated with: Medicines that treat viruses. Medicines that make it easy to breathe. Medicines that are sprayed into the nose. Acetaminophen or NSAIDs, such as ibuprofen, to treat fever. Follow these instructions at home: Managing pain and congestion Take kweo-mvk-[id number] and prescription medicines only as told by your doctor. If you have a sore throat, gargle with salt water. Do this 3 4 times a day or as needed. ?To make salt water, dissolve 1 tsp (3 6 g) of salt in 1 cup (237 mL) of warm water. Make sure thatall the salt dissolves. Use nose drops made from salt water. This helps with stuffiness (congestion). It also helps soften the skin around your nose. Take 2 tsp (10 mL) of honey at bedtime to lessen coughing at night. ?Do not give honey to children who are younger than 1 year old. Drink enough fluid to keep your pee (urine) pale yellow. General instructions Rest as much as possible. Do not drink alcohol. Do not smoke or use any products that contain nicotine or tobacco. If you need help quitting, ask your doctor. Keep all follow-up visits. How is this prevented? Get a flu shot every year. Ask your doctor when you should get your flu shot. Do not let other people get your germs. If you are sick: ?Wash your hands with soap and water often. Wash your hands after you cough or sneeze. Wash hands for at least 20 seconds. If you cannot use soap and water, use hand grand scribe. ?Cover your mouth when you cough. Cover your nose and mouth when you sneeze. ?Do not share cups or eating utensils. ?Clean commonly used objects often. Clean commonly touched surfaces. ?Stay home from work or school. Avoid contact with people who are sick during cold and flu season. This is in fall and winter. Get help if: Your symptoms last for 10 days or longer. Your symptoms get worse over time. You have very bad pain in your face or forehead. Parts of your jaw or neck get very swollen. You have shortness of breath. Get help right away if: You feel pain or pressure in your chest. You have trouble breathing. You faint or feel like you will faint. You keep vomiting and it gets worse. You feel confused. These symptoms may be an emergency. Get help right away. Call your local emergency services (911 int [place] Do not wait to see if the symptoms will go away. Do not drive yourself to the hospital. Summary A viral respiratory infection is an illness that affects parts of the body that are used for breathing. Examples of this illness include a cold, the flu, and a respiratory syncytial virus (RSV) infection. The infection can cause a runny nose, cough, sore throat, and fever. Follow what your doctor tells you about taking medicines, drinking lots of fluid, washing your hands, resting at home, and avoiding people who are sick. This information is not intended to replace advice given to you by your health care provider. Make sure you discuss any questions you have with your health care provider. Document Revised: 09/08/2021 Document Reviewed: 09/08/2021 [employer] Patient Education 2022 [employer]. Follow Up Care 03/28/2023 10:03:13 With:RIGOBERTO CHURCH, MAXWELL PARKINSON Address: [address] [place] [address]- When: Unknown [facility] 01-17-2023 Evaluation + Plan noteExtracted from: Title:Pain Managment Follow up Author:Leah Crawford Date:07/04/22 Patient: CHRISTIANO ZHENG Age: 26 years Sex: Male : 1995 Associated Diagnoses: None Author: Leah Myrick PA-C Subjective Chief complaint 07/04/2022 15:31 EST Neck pain . Patient is a 26-year-old male with a past medical history significant for cervical neuritis, cervical degenerative disc disease, right shoulder pain and myalgia. He underwent recent C6/7 epidural steroid injection done on 06/13/2022 that did not give him any long-term relief. 1% for 3 days but nothing more significant than that. He states that his pain is back to baseline and in the same area. It is in the neck, right shoulder and shoulder blade. Patient states that he needs something to give him some more long-term relief. The 3 days was great but did not last long enough. Patient does not want to have to see a surgeon but he does not want to feel like this forever. He states that it used to go down into his arm into his thumb and pointer as well as middle finger but now it is only in the shoulder blade. It affects his ability to do certain things throughout the day. It affects his ability to do overhead activities. If he does a lot of activities throughout the day it gets worse. When he wakes up in the morning it is better. Previous critical care nurse did not help. Previous physical therapy did not help. Anti-inflammatory medications do not help. Health Status Allergies: Allergic Reactions (Selected) Moderate Dilaudid- Hives. Severity Not Documented Morphine- Anaphylaxis. OxyCODONE- Nausea., Allergies (3) ActiveReaction DilaudidHives morphineanaphylaxis oxyCODONENausea Current medications: (Selected) Prescriptions Prescribed Lexapro 20 mg Tab: 20 mg = 1 tab(s), Oral, Daily, # 30 tab(s), Refills(s) 1, Pharmacy: [facility]/pharmacy #[id number], 178, cm, 04/28/22 15:31:00 EST, Height/Length Dosing, 79.7, kg, 04/28/22 15:31:00 EST, Weight Dosing Vistaril 25 mg Cap: 25 mg = 1 cap(s), Oral, TID, PRN for anxiety, # 40 cap(s), Refills(s) 2, Pharmacy: [facility]/pharmacy #[id number], 178, cm, 04/28/22 15:31:00 EST, Height/Length Dosing, 79.7, kg, 04/28/22 15:31:00 EST, Weight Dosing cyclobenzaprine 10 mg Tab: 10 mg = 1 tab(s), Oral, TID, PRN for spasm, # 30 tab(s), Refills(s) 0, [id number] 178, cm, 03/28/22 14:15:00 EDT, Height/Length Dosing, 83.1, kg, 03/28/22 14:15:00 EDT, Weight Dosing phenylephrine 0.25% rectal gel: 1 evelyn, Topical, Daily for itching, 54 gram, Refill(s) 0, [facility]/pharmacy #[id number], 180, cm, 06/06/22 15:30:00 EST, Height/Length Dosing, 77, kg, 06/06/22 15:30:00 EST, Weight Dosing Documented Medications Documented acetaminophen: 1,000 mg, Oral, TID, PRN as needed for pain, Refills(s) 0 Problem list: All Problems Former smoker / SNOMED CT 13968262 / Confirmed BMI 23.0-23.9, adult / SNOMED CT 2884229535 / Confirmed Family history unknown / SNOMED CT 0153638584 / Confirmed Screening for cardiovascular condition / SNOMED CT 360732823 / Confirmed Enlarged tonsils / SNOMED CT 652283532 / Confirmed Difficulty swallowing / SNOMED CT 74554356 / Confirmed Constipation / SNOMED CT 05414949 / Confirmed after GB removed Hemolytic anemia / SNOMED CT 451433070 / Confirmed Non-smoker / SNOMED CT 60473297 / Confirmed Stomal ulcer / SNOMED CT 9218828729 / Confirmed Splenomegaly / SNOMED CT 39014325 / Confirmed Hospital discharge follow-up / SNOMED CT 4033517349 / Confirmed Hereditary spherocytosis / SNOMED CT 92342027 / Confirmed Testicle lump / SNOMED CT 796324030 / Confirmed Cervical radiculopathy / SNOMED CT 877451406 / Confirmed Cervical spondylosis / SNOMED CT 2041079897 / Confirmed Muscle spasms of neck / SNOMED CT 3635317703 / Confirmed Insomnia / SNOMED CT 119608655 / Confirmed Medial epicondylitis / SNOMED CT 95310992 / Confirmed Anxiety / SNOMED CT 48123690 / Confirmed PTSD (post-traumatic stress disorder) / SNOMED CT 04221690 / Confirmed Hearing deficit / SNOMED CT 07635044 / Confirmed Lower back pain / SNOMED CT 707378530 / Confirmed History of neck pain / SNOMED CT 4336746495 / Confirmed Resolved: Cholelithiasis / SNOMED CT 927728413 2009 Resolved: Sleep apnea / SNOMED CT 070520715 Canceled: Well adult exam / SNOMED CT 449896958 Canceled: Sore throat / SNOMED CT 866671299 Canceled: Pain in the abdomen / SNOMED CT 40534397 Canceled: Fever / SNOMED CT 3687693522 Objective Vital Signs 07/04/2022 15:31 EST Peripheral Pulse Rate 95 bpm Systolic Blood Pressure 130 mmHg Diastolic Blood Pressure 79 mmHg Mean Arterial Pressure, Cuff 96 mmHg General: Alert and oriented, No acute distress. Eye: Normal conjunctiva. HENT: Normocephalic, Normal hearing. Cardiovascular: No edema. Musculoskeletal Normal range of motion. Normal strength. Pain with internal and external rotation of the right shoulder slightly Difficulty with overhead activity Integumentary: Warm, Dry, [place]. Injection site well-healed Neurologic: Alert, Oriented. Psychiatric: Cooperative, Appropriate mood & affect. Results Review M54.12 [employer] REPORT IMPRESSION: MINIMAL CERVICAL SPONDYLOSIS C6-C7. MILD TO MODERATE NONSPECIFIC CERVICAL LYMPHADENOPATHY. CLINICAL CORRELATION WILL BE IMPORTANT. EXAM: MRI Spine Cervical w/o Contrast DATE: 05/19/2022 CLINICAL HISTORY: M54.12. COMPARISON: None available. TECHNIQUE: Multiplanar MR imaging of the cervical spine was performed. FINDINGS: The spine is visualized from the craniovertebral junction through the T1-to the diagnostic sagittal sequences. The visualized spinal cord is normal in signal and caliber. Mild reversal of the normal cervical lordosis is present, without significant subluxation. Several mild to moderately enlarged cervical lymph nodes are nonspecific, measuring up to approximately 1.4 x 1 x 3 cm - left level 2A neck (image 8 - axial series 8). At the C6-C7 level, there is a very small broad-based right subarticular disc osteophyte complex, which results in borderline right lateral recess narrowing. The C2-C3 through C5-C6, and C7-T1 and upper visualized thoracic levels are unremarkable. Signature Line FINAL REPORT Dictated: 05/21/2022 11:00 am Ino Roberson MD Signed (Electronic Signature): 05/21/2022 11:00 am Signed by: Ino Roberson MD Transcribed by: MARY Technologist: ROBYN Technical Comments None RAD REPORT This document has an image Result type:MRI Spine Cervical w/o Contrast Result date:May 19, 2022 20:03 EST Result status:Auth (Verified) Result title:MRI Spine Cervical w/o Contrast Performed by:Ino Roberson MD on May 21, 2022 11:00 EST Verified by:Ino Roberson MD on May 21, 2022 11:00 EST Encounter info:[id number], [facility], Outpatient, 05/19/2022 - 05/19/2022 Impression and Plan Patient is a 26-year-old male with a past medical history seen for cervical neuritis, cervical disc bulge, myalgia, and right shoulder pain. He does have some difficulty with overhead activities and states it gets worse as the day goes on. This affects his ability to do certain things. It affects his quality of life and activities of daily. It affects his ability to do the things he wants to do throughout the day. We once again reviewed the MRI scan. We discussed different options. Patient does not want to see a surgeon if he does not have to but he wants to feel better than he does now. Patient does not want to have this degree of pain long-term. I discussed with patient trialing gabapentin at bedtime only and obtaining a right shoulder MRI based on his pain pattern. Patient is agreeable. He will follow-up after the MRI. He is also going to consider seeing a surgeon but he really wants to try and avoid this. Addendum by Leah Myrick PA-C on Jun 15:50 EST SIVAKUMAR score 8 Future Appointments Appointment Date:08/04/2022 03:00:00 PM Scheduled Provider:Leah Myrick PA-C Location:FT.[facility] Appointment Type:Pain Management - Follow Up (FT) [facility]12-27-2022 Note [id number]:127[facility] 05-23-2022 Evaluation + Plan noteExtracted from: Title:FUV Author:Sen Burgess MD Date :05/23/22 Impression and Plan 26-year-old gentleman with persistent right-sided neck and medial scapular border pain consistent with a lateral disc herniation at C6-7. The pain is not responded to a full course of physical therapy as well as regular use of high-dose ibuprofen. The pain significantly impacts quality life and activities of daily living. We discussed the option of a C6-7 epidural steroid injection to address his persistent symptoms. Risk, benefits, and alternatives were reviewed with the patient at length. Questions were addressed. The patient would like to proceed to soon as possible. Follow-up 2 weeks after the injection to assess response. Patient agrees with plan of care. I asked the patient to follow-up with his primary care physician about the enlarged lymph nodes noted on the MRI. I suspect they are secondary to the upper respiratory tract infection. He should though have these checked once he is feeling better. Patient voiced understanding and will do so. [facility]12-02-2022 Hospital Discharge instructions Patient Education 05/19/2022 10:49:16 Otitis Media, Adult Otitis Media, Adult Otitis media occurs when there is inflammation and fluid in the middle ear. Your middle ear is a part of the ear that contains bones for hearing as well as air that helps send sounds to your brain. What are the causes? This condition is caused by a blockage in the eustachian tube. This tube drains fluid from the ear to the back of the nose (nasopharynx). A blockage in this tube can be caused by an object or by swelling (edema) in the tube. Problems that can cause a blockage include: A cold or other upper respiratory infection. Allergies. An irritant, such as tobacco smoke. Enlarged adenoids. The adenoids are areas of soft tissue located high in the back of the throat, behind the nose and the roof of the mouth. A mass in the nasopharynx. Damage to the ear caused by pressure changes (barotrauma). What are the signs or symptoms? Symptoms of this condition include: Ear pain. A fever. Decreased hearing. A headache. Tiredness (lethargy). Fluid leaking from the ear. Ringing in the ear. How is this diagnosed? This condition is diagnosed with a physical exam. During the exam your health care provider will use an instrument called an otoscope to look into your ear and check for redness, swelling, and fluid.He or she will also ask about your symptoms. Your health care provider may also order tests, such as: A test to check the movement of the eardrum (pneumatic otoscopy). This test is done by squeezing a small amount of air into the ear. A test that changes air pressure in the middle ear to check how well the eardrum moves and whether the eustachian tube is working (tympanogram). How is this treated? This condition usually goes away on its own within 3 5 days. But if the condition is caused by a bacteria infection and does not go away own its own, or keeps coming back, your health care provider may: Prescribe antibiotic medicines to treat the infection. Prescribe or recommend medicines to control pain. Follow these instructions at home: Take ortw-zth-modhejn and prescription medicines only as told by your health care provider. If you were prescribed an antibiotic medicine, take it as told by your health care provider. Do notstop taking the antibiotic even if you start to feel better. Keep all follow-up visits as told by your health care provider. This is important. Contact a health care provider if: You have bleeding from your nose. There is a lump on your neck. You are not getting better in 5 days. You feel worse instead of better. Get help right away if: You have severe pain that is not controlled with medicine. You have swelling, redness, or pain around your ear. You have stiffness in your neck. A part of your face is paralyzed. The bone behind your ear (mastoid) is tender when you touch it. You develop a severe headache. Summary Otitis media is redness, soreness, and swelling of the middle ear. This condition usually goes away on its own within 3 5 days. If the problem does not go away in 3 5 days, your health care provider may prescribe or recommend medicines to treat your symptoms. If you were prescribed an antibiotic medicine, take it as told by your health care provider. This information is not intended to replace advice given to you by your health care provider. Make sure you discuss any questions you have with your health care provider. Document Released: 03/09/2005 Document Revised: 05/17/2018 Document Reviewed: 05/25/2017 [employer] Patient Education 2020 [employer]. Follow Up Care 05/19/2022 09:54:52 With:Lelia Franklin Address: [address] [place] [phone] Business (1) When:05/22/2022 10:38:14 [facility]11-28-2022 Hospital Discharge instructions Patient Education 05/14/2022 22:51:09 Cough, Adult Cough, Adult Coughing is a reflex that clears your throat and your airways (respiratory system). Coughing helps to heal and protect your lungs. It is normal to cough occasionally, but a cough that happens with other symptoms or lasts a long time may be a sign of a condition that needs treatment. An acute cough may only last 2 3 weeks, while a chronic cough may last 8 or more weeks. Coughing is commonly caused by: Infection of the respiratory systemby viruses or bacteria. Breathing in substances that irritate your lungs. Allergies. Asthma. Mucus that runs down the back of your throat (postnasal drip). Smoking. Acid backing up from the stomach into the esophagus (gastroesophageal reflux). Certain medicines. Chronic lung problems. Other medical conditions such as heart failure or a blood clot in the lung (pulmonary embolism). Follow these instructions at home: Medicines Take ayjb-upo-bpbljuo and prescription medicines only as told by your health care provider. Talk with your health care provider before you take a cough suppressant medicine. Lifestyle Avoid cigarette smoke. Do not use any products that contain nicotine or tobacco, such as cigarettes, e-cigarettes, and chewing tobacco. If you need help quitting, ask your health care provider. Drink enough fluid to keep your urine pale yellow. Avoid caffeine. Do not drink alcohol if your health care provider tells you not to drink. General instructions Pay close attention to changes in your cough. Tell your health care provider about them. Always cover your mouth when you cough. Avoid things that make you cough, such as perfume, candles, cleaning products, or campfire or tobacco smoke. If the air is dry, use a cool mist vaporizer or humidifier in your bedroom or your home to help loosen secretions. If your cough is worse at night, try to sleep in a semi-upright position. Rest as needed. Keep all follow-up visits as told by your health care provider. This is important. Contact a health care provider if you: Have new symptoms. Cough up pus. Have a cough that does not get better after 2 3 weeks or gets worse. Cannot control your cough with cough suppressant medicines and you are losing sleep. Have pain that gets worse or pain that is not helped with medicine. Have a fever. Have unexplained weight loss. Have night sweats. Get help right away if: You cough up blood. You have difficulty breathing. Your heartbeat is very fast. These symptoms may represent a serious problem that is an emergency. Do not wait to see if the symptoms will go away. Get medical help right away. Call your local emergency services (911 in the [place] Do not drive yourself to the hospital. Summary Coughing is a reflex that clears your throat and your airways. It is normal to cough occasionally, but a cough that happens with other symptoms or lasts a long time may be a sign of a condition that needs treatment. Take slpe-wez-csaagye and prescription medicines only as told by your health care provider. Always cover your mouth when you cough. Contact a health care provider if you have new symptoms or a cough that does not get better after 23 weeks or gets worse. This information is not intended to replace advice given to you by your health care provider. Make sure you discuss any questions you have with your health care provider. Document Released: 12/01/2011 Document Revised: 06/23/2019 Document Reviewed: 06/23/2019 [employer] Patient Education 2019 [employer]. Follow Up Care 05/14/2022 19:34:16 With:Lelia Franklin Address: [address] [place] [address] [phone] Business (1) When:05/17/2022 [facility]11-25-2022 Hospital Discharge instructions Patient Education 05/12/2022 12:04:07 Viral Gastroenteritis, Adult Viral Gastroenteritis, Adult Viral gastroenteritis is also known as the stomach flu. This condition may affect your stomach, small intestine, and large intestine. It can cause sudden watery diarrhea, fever, and vomiting. This condition is caused by many different viruses. These viruses can be passed from person to person very easily (are contagious). Diarrhea and vomiting can make you feel weak and cause you to become dehydrated. You may not be able to keep fluids down. Dehydration can make you tired and thirsty, cause you to have a dry mouth, and decrease how often you urinate. It is important to replace the fluids that you lose from diarrhea and vomiting. What are the causes? Gastroenteritis is caused by many viruses, including rotavirus and norovirus. Norovirus is the mostcommon cause in adults. You can get sick after being exposed to the viruses from other people. You can also get sick by: Eating food, drinking water, or touching a surface contaminated with one of these viruses. Sharing utensils or other personal items with an infected person. What increases the risk? You are more likely to develop this condition if you: Have a weak body defense system (immune system). Live with one or more children who are younger than 2 years old. Live in a alf. Travel on cruise ships. What are the signs or symptoms? Symptoms of this condition start suddenly 1 3 days after exposure to a virus. Symptoms may last fora few days or for as long as a week. Common symptoms include watery diarrhea and vomiting. Other symptoms include: Fever. Headache. Fatigue. Pain in the abdomen. Chills. Weakness. Nausea. Muscle aches. Loss of appetite. How is this diagnosed? This condition is diagnosed with a medical history and physical exam. You may also have a stool test to check for viruses or other infections. How is this treated? This condition typically goes away on its own. The focus of treatment is to prevent dehydration andrestore lost fluids (rehydration). This condition may be treated with: An oral rehydration solution (ORS) to replace important salts and minerals (electrolytes) in your body. Take this if told by your health care provider. This is a drink that is sold at pharmacies and retail stores. Medicines to help with your symptoms. Probiotic supplements to reduce symptoms of diarrhea. Fluids given through an IV, if dehydration is severe. Older adults and people with other diseases or a weak immune system are at higher risk for dehydration. Follow these instructions at home: Eating and drinking Take an ORS as told by your health care provider. Drink clear fluids in small amounts as you are able. Clear fluids include: ?Water. ?Ice chips. ?Diluted fruit juice. ?Low-calorie sports drinks. Drink enough fluid to keep your urine pale yellow. Eat small amounts of healthy foods every 3 4 hours as you are able. This may include whole grains, fruits, vegetables, lean meats, and yogurt. Avoid fluids that contain a lot of sugar or caffeine, such as energy drinks, sports drinks, and soda. Avoid spicy or fatty foods. Avoid alcohol. General instructions Wash your hands often, especially after having diarrhea or vomiting. If soap and water are not available, use hand grand scribe. Make sure that all people in your household wash their hands well and often. Take fwvn-wmf-aomsjwl and prescription medicines only as told by your health care provider. Rest at home while you recover. Watch your condition for any changes. Take a warm bath to relieve any burning or pain from frequent diarrhea episodes. Keep all follow-up visits as told by your health care provider. This is important. Contact a health care provider if you: Cannot keep fluids down. Have symptoms that get worse. Have new symptoms. Feel light-headed or dizzy. Have muscle cramps. Get help right away if you: Have chest pain. Feel extremely weak or you faint. See blood in your vomit. Have vomit that looks like coffee grounds. Have bloody or black stools or stools that look like tar. Have a severe headache, a stiff neck, or both. Have a rash. Have severe pain, cramping, or bloating in your abdomen. Have trouble breathing or you are breathing very quickly. Have a fast heartbeat. Have skin that feels cold and clammy. Feel confused. Have pain when you urinate. Have signs of dehydration, such as: ?Dark urine, very little urine, or no urine. ?Cracked lips. ?Dry mouth. ?Sunken eyes. ?Sleepiness. ?Weakness. Summary Viral gastroenteritis is also known as the stomach flu. It can cause sudden watery diarrhea, fever,and vomiting. This condition can be passed from person to person very easily (is contagious). Take an ORS if told by your health care provider. This is a drink that is sold at pharmacies and retail stores. Wash your hands often, especially after having diarrhea or vomiting. If soap and water are not available, use hand grand scribe. This information is not intended to replace advice given to you by your health care provider. Make sure you discuss any questions you have with your health care provider. Document Released: 06/04/2006 Document Revised: 11/21/2019 Document Reviewed: 04/09/2019 [employer] Patient Education 2020 [employer]. 05/12/2022 12:04:02 Upper Respiratory Infection, Adult Upper Respiratory Infection, Adult An upper respiratory infection (URI) is a common viral infection of the nose, throat, and upper airpassages that lead to the lungs. The most common type of URI is the common cold. URIs usually get better on their own, without medical treatment. What are the causes? A URI is caused by a virus. You may catch a virus by: Breathing in droplets from an infected person's cough or sneeze. Touching something that has been exposed to the virus (contaminated) and then touching your mouth, nose, or eyes. What increases the risk? You are more likely to get a URI if: You are very young or very old. It is shekhar or winter. You have close contact with others, such as at a daycare, school, or health care facility. You smoke. You have long-term (chronic) heart or lung disease. You have a weakened disease-fighting (immune) system. You have nasal allergies or asthma. You are experiencing a lot of stress. You work in an area that has poor air circulation. You have poor nutrition. What are the signs or symptoms? A URI usually involves some of the following symptoms: Runny or stuffy (congested) nose. Sneezing. Cough. Sore throat. Headache. Fatigue. Fever. Loss of appetite. Pain in your forehead, behind your eyes, and over your cheekbones (sinus pain). Muscle aches. Redness or irritation of the eyes. Pressure in the ears or face. How is this diagnosed? This condition may be diagnosed based on your medical history and symptoms, and a physical exam. Your health care provider may use a cotton swab to take a mucus sample from your nose (nasal swab). This sample can be tested to determine what virus is causing the illness. How is this treated? URIs usually get better on their own within 7 10 days. You can take steps at home to relieve your symptoms. Medicines cannot cure URIs, but your health care provider may recommend certain medicines to help relieve symptoms, such as: Vynb-jrl-vpgfadq cold medicines. Cough suppressants. Coughing is a type of defense against infection that helps to clear the respiratory system, so take these medicines only as recommended by your health care provider. Fever-reducing medicines. Follow these instructions at home: Activity Rest as needed. If you have a fever, stay home from work or school until your fever is gone or until your health care provider says you are no longer contagious. Your health care provider may have you wear a face mask to prevent your infection from spreading. Relieving symptoms Gargle with a salt-water mixture 3 4 times a day or as needed. To make a salt- water mixture, completely dissolve 1 tsp of salt in 1 cup of warm water. Use a cool-mist humidifier to add moisture to the air. This can help you breathe more easily. Eating and drinking Drink enough fluid to keep your urine pale yellow. Eat soups and other clear broths. General instructions Take jthg-dzd-zssfptm and prescription medicines only as told by your health care provider. These include cold medicines, fever reducers, and cough suppressants. Do not use any products that contain nicotine or tobacco, such as cigarettes and e-cigarettes. If you need help quitting, ask your health care provider. Stay away from secondhand smoke. Stay up to date on all immunizations, including the yearly (annual) flu vaccine. Keep all follow-up visits as told by your health care provider. This is important. How to prevent the spread of infection to others URIs can be passed from person to person (are contagious). To prevent the infection from spreading: ?Wash your hands often with soap and water. If soap and water are not available, use hand grand scribe. ?Avoid touching your mouth, face, eyes, or nose. ?Cough or sneeze into a tissue or your sleeve or elbow instead of into your hand or into the air. Contact a health care provider if: You are getting worse instead of better. You have a fever or chills. Your mucus is brown or red. You have yellow or brown discharge coming from your nose. You have pain in your face, especially when you bend forward. You have swollen neck glands. You have pain while swallowing. You have white areas in the back of your throat. Get help right away if: You have shortness of breath that gets worse. You have severe or persistent: ?Headache. ?Ear pain. ?Sinus pain. ?Chest pain. You have chronic lung disease along with any of the following: ?Wheezing. ?Prolonged cough. ?Coughing up blood. ?A change in your usual mucus. You have a stiff neck. You have changes in your: ?Vision. ?Hearing. ?Thinking. ?Mood. Summary An upper respiratory infection (URI) is a common infection of the nose, throat, and upper air passages that lead to the lungs. A URI is caused by a virus. URIs usually get better on their own within 7 10 days. Medicines cannot cure URIs, but your health care provider may recommend certain medicines to help relieve symptoms. This information is not intended to replace advice given to you by your health care provider. Make sure you discuss any questions you have with your health care provider. Document Released: 11/28/2001 Document Revised: 06/12/2019 Document Reviewed: 01/18/2018 [employer] Patient Education 2020 [employer]. Follow Up Care 05/12/2022 10:54:54 With:Rigoberto CHURCH, MAXWELL Parkinson Address: [address] [place] [address] [phone] When: Unknown [facility] 11-21-2022 Evaluation + Plan noteExtracted from: Title:NPV Author:Sen Burgess MD Date :05/08/22 Impression and Plan 26-year-old gentleman with persistent right-sided neck and arm pain consistent with cervical radiculitis most likely due to disc displacement. I suspect the patient has a C5-6 disc herniation based on his pattern of symptoms. The pain has not responded to appropriate in extensive conservative care which has included a full course of physical therapy within the past 6 months and regular use of high-dose NSAIDs during that period of time. The patient and I discussed the likely etiology of his pain. I recommend obtaining an MRI of the cervical spine without contrast for further evaluation and to assess for areas of neural compression. I would like to see the patient back after the MRIs been completed to review results and discuss further treatment options which will most likely include epidural steroid injections. The patient agrees with plan of care. I did offer the patient membrane stabilizing medication to help with the pain in the meanwhile, but he would like to hold off for now. The patient will call the clinic if he changes his mind. Patient agrees with plan of care. Future Appointments Appointment Date:05/23/2022 02:45:00 PM Scheduled Provider:Sen Burgess MD Location:[facility] Appointment Type:Pain Management - Follow Up (FT) [facility]05-20-2022 Evaluation + Plan noteExtracted from: Title:ED Note Author:Blane Rodas PA-C te:11/04/21 Leg laceration (S81.819A: La ceration without foreign body, unspecified lower leg, initial encounter) Orders: lidocaine, 50 mg, 5 mL, Injection, TransDermal, Once, Stop date 11/04/21 10:27:00 EDT, STAT, Start date 11/04/21 10:27:00 EDT tetanus/diphtheria/pertussis, acel (Tdap), 0.5 mL, Injection, Intramuscular-Immunization, Once, Stop date 11/04/21 10:27:00 EDT, STAT, Start date 11/04/21 10:27:00 EDT XR Tib/Fib Right 2 View [facility]05-20-2022 Hospital Discharge instructions Patient Education 11/04/2021 11:31:02 Laceration Care, 7-10 ([id number]) Laceration Care A laceration is a cut or lesion that goes through all layers of the skin and into the tissue just beneath the skin. BEFORE THE PROCEDURE The laceration will be inspected by your caregiver for amount and extent of tissue damage, for bleeding, for evidence of foreign bodies (pieces of dirt, glass, etc.), and for cleanliness. Pain medications can be used if necessary. The wound will then be cleansed to help prevent infection. Sutures, saloni, steri strips, or wound adhesive will be used to close the wound, stop bleeding and speed healing. Sometimes this will decrease the likelihood of infection and bleeding. LET YOUR CAREGIVERS KNOW ABOUT THE FOLLOWING: Allergies. Medications taken including herbs, eye drops, over the counter medications, and creams. Use of steroids (by mouth or creams). Previous problems with anesthetics or novocaine. Possibility of , if this applies. History of blood clots (thrombophlebitis). History of bleeding or blood problems. Previous surgery. Other health problems. RISKS AND COMPLICATIONS Most lacerations heal fully. The healing time required varies depending on location. Complications of a laceration can include pain, bleeding, infection, dehiscence (splitting open or separation of the wound edges) and scar formation. The likelihood of complication depends on wound complexity, location, and on how the laceration occurred. HOME CARE INSTRUCTIONS If you were given a dressing, you should change it at least once a day, or as instructed by your caregiver. If the bandage sticks, soak it off with a solution of hydrogen peroxide or soapy water. Twice a day, wash the area with soap and water and rinse with plain water to remove all soap. Pat (do not rub) dry with a clean towel. Look for signs of infection (see below). Re-apply prescribed creams or ointments as instructed. This will help prevent infection. This also helps keep the bandage from sticking. If the bandage becomes wet, dirty, or develops a foul smell, change it as soon as possible. Only take lscz-elj-cvraylr or prescription medicines for pain, discomfort, or fever as directed by your caregiver. Have your sutures, saloni, or steri strips removed in 10-14 days. Steri strips will peel off from the outer edges toward the center and will eventually fall off. Report to your caregiver if the strips are falling off and the wound does not appear fully healed. SEEK MEDICAL CARE IF: There is redness, swelling, or increasing pain in the wound. There is a red line that goes up your arm or leg. Pus is coming from wound. You develop an unexplained oral temperature above , or as your caregiver suggests. You notice a foul smell coming from the wound or dressing. There is a breaking open of the wound (edges not staying together) before or after sutures have been removed. You notice something coming out of the wound such as wood or glass. The wound is on your hand or foot and you find that you are unable to properly move a finger or toe. There is severe swelling around the wound causing pain and numbness or a change in color in your arm, hand, leg, or foot. SEEK IMMEDIATE MEDICAL CARE IF: Pain is not controlled with prescribed medication or with acetaminophen or ibuprofen. There is severe swelling around the wound site. The wound splits open and bleeding recurs. You experience worsening numbness, weakness, or loss of function of any joint around or beyond the wound. You develop painful lumps near the wound or on the skin anywhere on your body. If you did not receive a tetanus shot today because you did not recall when your last one was given, make sure to check with your caregiver when you have your sutures removed to determine if you needone. MAKE SURE YOU: Understand these instructions. Will watch your condition. Will get help right away if you are not doing well or get worse. Document Released: 06/04/2006 Document Re-Released: 05/17/2009 [employer] Patient Information 2010 [employer]. Follow Up Care 11/04/2021 10:07:42 With:[facility]: [facility] [phone] Address:Unknown When:11/07/2021 11:18:10 Comments:stitches to be removed in 10-14 days [facility] Future Appointments Appointment Date:03/08/2022 06:45:00 AM Scheduled Provider: [facility] Appointment Type:PT Traction First (FT) Appointment Date:03/10/2022 06:45:00 AM Scheduled Provider: [facility] Appointment Type:PT Traction First (FT) Appointment Date:03/15/2022 06:45:00 AM Scheduled Provider: Location[facility] Appointment Type:PT Re-Eval 30 () [facility] Future Appointments Appointment Date:04/28/2022 03:20:00 PM Scheduled Provider:Lelia Franklin NP Location:[facility] Appointment Type:[facility] [place] Evaluation + Plan note Future Appointments Appointment Date:05/23/2022 02:45:00 PM Scheduled Provider:Sen Burgess MD [facility] Type:Pain Management - Follow Up (FT) [facility] Evaluation + Plan note Future Appointments Appointment Date:05/23/2022 01:20:00 PM Scheduled Provider:Lelia Franklin NP Location:[facility] Appointment Type: ER/Hospital Follow Up Appointment Date:05/23/2022 02:45:00 PM Scheduled Provider:Sen Burgess MD [facility] Type[facility]Pain Management - [facility] (FT[facility] Future Appointments Appointment Date:07/04/2022 03:30:00 PM Scheduled Provider:Sen Burgess MD Location[facility] Appointment Type:Pain Management - Follow Up (FT) [facility] course Narrative No data available for this section [facility] Discharge instructions No data available for this section [facility] Progress note No data available for this section [facility] Reason for referral (narrative) Referred by: Lelia Franklin NP [facility] Summary Purpose Family History No Family History Records FoundNo Family History Records FoundNo Family History Records Found No data available for this section No Family History Records Found Advance Directives No Advanced Directives Records FoundNo Advanced Directives Records FoundNo Advanced Directives Records FoundNo Advanced Directives Records Found Hospital Course Note Send Summary: Discharge Summ [place] Providers: Provider RoleProvider Name SheltonOndersEagle AttendingOnders, Eagle PrimaryAddie Rhodes Note Recipients: Eagle Mcmanus MD Schwerer, Kaitlin E, MD - [phone] [] Discharge: Summary: Admission Date: .21-Jan-2020 09:19:00 Discharge Date: 28-Jan-2020 Attending Physician at Discharge: Eagle Mcmanus Admission Reason: postop bleeding(1) Final Discharge Diagnoses: Hereditary spherocytosis Procedures: Date: 21-Jan-2020 16:05:00 Procedure Name: 1. laparoscopic splenectomy Date: 22-Jan-2020 12:36:00 Procedure Name: splenic artery branch embolization Condition at Discharge: Satisfactory Disposition at Discharge: .Home Vital Signs: T PRBPSpO2 [id number]% Date/Time01/27 16: 16: 16: 16: 16:04 Range(36C - 37.4C ) (84 - 103 ) (18 - 18 ) (120 - 134 )/ (65 - 80 ) (97% - 100% ) Highest temp of 37.4 C was recorded at 01/26 19:35 Physical Exam: Physical Exam: Constitutional: no acute distress, alert and oriented (more content not included)... Note Post Operative Note: PreOp D iagnosis: hereditary spherocytosis Post-Procedure Diagnosis: same Procedure: 1. laparoscopic splenectomy Surgeon: Dr Eagle Mcmanus Resident/Fellow/Other Child Nurse: Dr Annette Dunn Anesthesia: GETA Estimated Blood Loss (mL): 20cc Specimen: yes. spleen Findings: splenomegaly, surgical bed hemostatic at end of case Signature/Cosignature/Attestation: Note Completion: I am a:Resident/Fellow Attending AttestationI was present for the entire procedure Electronic Signatures: Lynnette Kaiser) (Signed 21-Jan-2020 16:08) Authored: Post Operative Note, Signature/Cosignature/Attestation Eagle Mcmanus) (Signed 21-Jan-2020 17:18) Authored: Signature/Cosignature/Attestation Co- Signer: Post Operative Note, Signature/Cosignature/Attestation Last Updated: 21-Jan-2020 17:18 by Eagle Mcmanus) Note Pre-procedure Verification a nd Time Out: Pre-Procedure Verification and Time Out: Procedure Locationprocedure area HUDDLE - Pre-procedure Verificationcompleted TIME OUT - Final Verificationcompleted DEBRIEFcompleted General Information: Anesthesia Critical Care: Non-Anesthesia Date/Time of Procedure: 22-Jan-2020 12:36 Post-Procedure 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 Procedure Name: splenic artery branch embolization Findings: 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 Procedure performed by: freddie hurt Child Nurse(s): tammy Estimated Blood Loss (mL): none Specimen: no Procedure Details: Procedure Details: Splenic angiogram was performed in the usual fashion via a right common femoral approach and demonstrated extravasation from a branch from the distal splenic artery adjacent to a surgical clip. Coil embolization was performed. No extravasation noted on post- embolization angiogram. Right leg straight x 6 hrs. Signature/Cosignature/Attestation: Note Completion: I am (more content not included)... Procedure Findings Note Post Operative Note: PreOp D iagnosis: hereditary spherocytosis Post-Procedure Diagnosis: same Procedure: 1. laparoscopic splenectomy Surgeon: Dr Eagle Mcmanus Resident/Fellow/Other Child Nurse: Dr Annette Dunn Anesthesia: GETA Estimated Blood Loss (mL): 20cc Specimen: yes. spleen Findings: splenomegaly, surgical bed hemostatic at end of case Signature/Cosignature/Attestation: Note Completion: I am a:Resident/Fellow Attending AttestationI was present for the entire procedure Electronic Signatures: Lynnette Kaiser) (Signed 21-Jan-2020 16:08) Authored: Post Operative Note, Signature/Cosignature/Attestation Eagle Mcmanus) (Signed 21-Jan-2020 17:18) Authored: Signature/Cosignature/Attestation Co- Signer: Post Operative Note, Signature/Cosignature/Attestation Last Updated: 21-Jan-2020 17:18 by Eagle Mcmanus) Note Pre-procedure Verification a nd Time Out: Pre-Procedure Verification and Time Out: Procedure Locationprocedure area HUDDLE - Pre-procedure Verificationcompleted TIME OUT - Final Verificationcompleted DEBRIEFcompleted General Information: Anesthesia Critical Care: Non-Anesthesia Date/Time of Procedure: 22-Jan-2020 12:36 Post-Procedure 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 Procedure Name: splenic artery branch embolization Findings: 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 Procedure performed by: freddie hurt Child Nurse(s): tammy Estimated Blood Loss (mL): none Specimen: no Procedure Details: Procedure Details: Splenic angiogram was performed in the usual fashion via a right common femoral approach and demonstrated extravasation from a branch from the distal splenic artery adjacent to a surgical clip. Coil embolization was performed. No extravasation noted on post- embolization angiogram. Right leg straight x 6 hrs. Signature/Cosignature/Attestation: Note Completion: I am (more content not included)... Additional Source Comments (unrecognized sect ion and content) No Status Records FoundNo Status Records FoundNo Status Records FoundNo Status Records Found INFORMATION SOURCE (unrecogn ized section and content) DATE CREATED AUTHOR 01/06/2020 [facility] DATE CREATED AUTHOR AUTHOR'S ORGANIZ ATION 02/06/2020 [facility] DATE CREATED AUTHOR AUTHOR'S ORGANIZ ATION 06/29/2020 [facility] DATE CREATED AUTHOR AUTHOR'S ORGANIZ ATION 05/07/2023 [facility] Care Team (unrecognized sect ion and content) Personnel Name: Lelia Franklin NP Address: [address] [place] [phone] [place] Name: Ade Fuller Personnel Name: Lelia Franklin NP Address: [address] [place] [phone] [place] Name: Ade Fuller Personnel Name: Lelia Franklin NP Address: [address] [place] [phone] [place] Name: Ade Fuller Personnel Name: Lelia Franklin NP Address: [address] [place] [phone] [place] Name: Ade Fuller Personnel Name: Lelia Franklin NP Address: Address: [address] [place] [phone] [place] Name: Ade Fuller Personnel Name: Lelia Franklin NP Address: Address: [address] [place] [phone] [place] Name: Ade Fuller Personnel Name: Lelia Franklin NP Address: Address: [address] [place] [phone] [place] Name: Ade Fuller Personnel Name: Lelia Franklin NP Address: Address: [address] [facility] [address] [place] [phone] [place] Name: Ade Fuller Personnel Name: Lelia Franklin NP Address: Address: [address] [place] [phone] [place] Name: Ade Fuller Personnel Name: Lelia Franklin NP Address: Address: [address] [place] [phone] [place] Name: Ade Fuller Personnel Name: Lelia Franklin NP Address: Address: [address] [place] [phone] [place] Name: Ade Fuller Personnel Name: Lelia Franklin NP Address: Address: [address] [place] [phone] [place] Name: Ade Fuller Personnel Name: Lelia Franklin NP Address: Address: [address] [place] [phone] [place] Name: Ade Fuller Personnel Name: LELIA FRANKLIN NP Address: Address: [address] [place] [address]- Name: Ade Fuller REASON FOR VISIT (unrecogniz ed section and content) CONGESTION//FEVER/SORE THROA T FOR RECORDS PERTAINING TO PATIENTS WHO ARE OR HAVE BEEN ENROLLED IN A CHEMICAL DEPENDENCY/SUBSTANCEABUSE PROGRAM, SOME INFORMATION MAY BE OMITTED. This clinical summary was aggregated from multiple sources. Caution should be exercised in using it in the provision of clinical care. This summary normalizes information from multiple sources, and as a consequence, information in this document may materially change the coding, format and clinical context of patient data. In addition, data may be omitted in some cases. CLINICAL DECISIONS SHOULD BE BASED ON THE PRIMARY CLINICAL RECORDS. [facility]. provides no warranty or guarantee of the accuracy or completeness of information in this document.
[2023-06-21] MEDS: 0.9 % SODIUM CHLORIDE 1,000 ML 100 ML IV ×3 (00:38→21:01)
[2023-06-21] MEDS: AMPICILLIN SODIUM/SULBACTAM NA 3 GM in 0.9 % SODIUM CHLORIDE 100 ML IV ×4 (04:17→21:36)
[2023-06-21] MEDS: ACETAMINOPHEN 120 MG WITH CODEINE 12 MG/ 5 ML SOLUTION 10 ML PO (04:25)
[2023-06-21 04:28] VITALS: BP 114/66; PULSE 98; RESP 16; TEMP 36.9; O2SAT 94
[2023-06-21] MEDS: KETOROLAC TROMETHAMINE 30 MG/ML VIAL 15 MG IVP ×2 (04:53→17:19)
[2023-06-21 06:00] LABS: Basophils Absolute Auto 0.1 10^3/uL (0.0-0.1); Basophils Percent Auto 0.5 % (0.2-2.0); Eosinophils Absolute Auto 0.1 10^3/uL (0.0-0.7); Eosinophils Percent Auto 0.4 % (0.9-7.0); Hematocrit 44.1 % (42.0-54.0); Hemoglobin 14.5 g/dL (14.0-18.0); Immature Granulocytes Abs Auto 0.16 10^3/uL (0.00-0.03); Immature Granulocytes Pct Auto 0.6 % (0.0-0.5); Lymphocytes Absolute Auto 7.6 10^3/uL (1.2-3.8); Lymphocytes Percent Auto 27.8 % (20.5-60.0); Mean Corpuscular HGB Conc 32.9 g/dL (29.9-35.2); Mean Corpuscular Hemoglobin 27.5 pg (25.9-34.0); Mean Corpuscular Volume 83.5 fL (80.0-94.0); Monocytes Absolute Auto 2.9 10^3/uL (0.3-0.8); Monocytes Percent Auto 10.4 % (1.7-12.0); Neutrophils Absolute Auto 16.5 10^3/uL (1.4-6.5); Neutrophils Percent Auto 60.3 % (43.0-75.0); Platelet Count 465 10^3/uL (150-450); Red Blood Count 5.28 10^6/uL (4.70-6.10); Red Cell Distribution Width 11.9 % (11.0-15.0); White Blood Count 27.3 10^3/uL (4.0-11.0)
[2023-06-21 06:20] LABS: Anion Gap 11.1; BUN Creatinine Ratio 9.5; Calcium 9.1 mg/dL (8.5-10.1); Carbon Dioxide 28.7 mmol/L (21.0-32.0); Chloride 102 mmol/L (98-107); Estimated GFR (African America >60 (>=60); Estimated GFR (Non-African Ame >60 (>=60); Glucose 98 mg/dL (74-106); Potassium 3.8 mmol/L (3.5-5.1); Sodium 138 mmol/L (136-145)
[2023-06-21 08:00] VITALS: RESP 16
[2023-06-21] MEDS: LITHIUM CARBONATE 150 MG CAPSULE 300 MG PO (08:29)
[2023-06-21] MEDS: SERTRALINE HCL 50 MG TABLET 150 MG PO (08:29)
--- NOTE | 2023-06-21 10:55 | CM.NOTE ---
Rounding with Dr. Peter, no discharge today. WBC remains elevated, possible discharge to home tomorrow. Increase diet as tolerated.
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
[2023-06-21] MEDS: HYDROCODONE/ACET 5-325 MG TABLET 1 TAB PO ×2 (12:26→21:05)
[2023-06-21] MEDS: PSEUDOEPHEDRINE HCL 30 MG TABLET PO (12:28)
[2023-06-21] MEDS: BENZONATATE 100 MG CAPSULE 200 MG PO ×2 (12:28→21:03)
[2023-06-21 13:28] VITALS: BMI 23.5
--- NOTE | 2023-06-21 13:37 | DIETREC ---
Recommend Ensure original 1 container bid po R/T difficulty swallowing at this time
--- NOTE | 2023-06-21 13:39 | DIETREC ---
If Ensure original is not tolerated offer Ensure clear @ 1 container po bid
[2023-06-21 14:00] VITALS: BP 131/82; PULSE 75; RESP 18; TEMP 36.7; O2SAT 94
--- NOTE | 2023-06-21 14:58 | XR_ITS ---
[place] [address] Patient Name: MARION ZHENG MRN: [id number] date: 1995 Sex: M Assigned Patient Location: [place] Current Patient Location: Accession/Order Number: [id number] Exam Date: 06/21/2023 15:05 Report Date: 06/21/2023 15:23 At the request of: EDIE LAMA Procedure: XR chest 1V EXAMINATION: XR chest 1V, , 06/21/2023 3:05 PM EST INDICATION: cough, congestion, fever HISTORY: Ordering Provider Reason for Exam: cough, congestion, fever Technologist Note: Additional: COMPARISON: None. TECHNIQUE: Chest x-ray: One view. FINDINGS: No pneumothorax, pleural effusion or focal airspace consolidation. Heart is normal in size. Bony thorax is unremarkable. XR/XR chest 1V IMPRESSION: No acute cardiopulmonary process. Electronically authenticated by: GHASSAN LOZAAD Date: 06/21/2023 15:23
[2023-06-21 20:45] VITALS: BP 108/60; PULSE 69; RESP 16; TEMP 36.6; O2SAT 97
[2023-06-21] MEDS: LEVOFLOXACIN IN DEXTROSE 5 % 750 MG/150 ML IV.SOLN 100 MG IV (22:57)
[2023-06-22] MEDS: ONDANSETRON 4 MG RAPDIS TABLET PO (01:24)
[2023-06-22 03:16] VITALS: BP 133/74; PULSE 67; RESP 16; TEMP 36.7; O2SAT 97
[2023-06-22] MEDS: AMPICILLIN SODIUM/SULBACTAM NA 3 GM in 0.9 % SODIUM CHLORIDE 100 ML IV ×2 (03:24→10:15)
[2023-06-22] MEDS: BENZONATATE 100 MG CAPSULE 200 MG PO ×2 (03:25→11:37)
[2023-06-22] MEDS: HYDROCODONE/ACET 5-325 MG TABLET 1 TAB PO (03:25)
[2023-06-22 05:04] LABS: Basophils Absolute Auto 0.1 10^3/uL (0.0-0.1); Basophils Percent Auto 0.8 % (0.2-2.0); Eosinophils Absolute Auto 0.3 10^3/uL (0.0-0.7); Eosinophils Percent Auto 1.7 % (0.9-7.0); Hemoglobin 14.6 g/dL (14.0-18.0); Immature Granulocytes Abs Auto 0.11 10^3/uL (0.00-0.03); Immature Granulocytes Pct Auto 0.6 % (0.0-0.5); Lymphocytes Absolute Auto 4.7 10^3/uL (1.2-3.8); Lymphocytes Percent Auto 25.9 % (20.5-60.0); Mean Corpuscular HGB Conc 33.2 g/dL (29.9-35.2); Mean Corpuscular Hemoglobin 27.5 pg (25.9-34.0); Mean Platelet Volume 10.7 fL (9.5-13.5); Monocytes Absolute Auto 1.6 10^3/uL (0.3-0.8); Monocytes Percent Auto 8.7 % (1.7-12.0); Neutrophils Absolute Auto 11.3 10^3/uL (1.4-6.5); Neutrophils Percent Auto 62.3 % (43.0-75.0); Platelet Count 480 10^3/uL (150-450); Red Cell Distribution Width 11.8 % (11.0-15.0); White Blood Count 18.1 10^3/uL (4.0-11.0)
[2023-06-22 05:32] LABS: Alanine Aminotransferase 28 U/L (16-63); Albumin Globulin Ratio 0.8; Albumin Level 3.2 g/dL (3.4-5.0); Alkaline Phosphatase 70 U/L (46-116); Anion Gap 7.4; Aspartate Amino Transferase 12 U/L (15-37); BUN Creatinine Ratio 9.1; Bilirubin Total 0.5 mg/dL (0.2-1.0); Calcium 9.3 mg/dL (8.5-10.1); Carbon Dioxide 30.3 mmol/L (21.0-32.0); Chloride 101 mmol/L (98-107); Estimated GFR (African America >60 (>=60); Estimated GFR (Non-African Ame >60 (>=60); Glucose 96 mg/dL (74-106); Potassium 3.7 mmol/L (3.5-5.1); Sodium 135 mmol/L (136-145); Total Protein 7.2 g/dL (6.4-8.2)
[2023-06-22 08:00] VITALS: RESP 16
[2023-06-22] MEDS: 0.9 % SODIUM CHLORIDE 1,000 ML 100 ML IV (08:15)
[2023-06-22] MEDS: PSEUDOEPHEDRINE HCL 30 MG TABLET PO (08:26)
[2023-06-22] MEDS: KETOROLAC TROMETHAMINE 30 MG/ML VIAL 15 MG IVP (08:26)
[2023-06-22] MEDS: SENNOSIDES 8.6 MG TABLET PO (08:26)
--- NOTE | 2023-06-22 09:48 | CM.NOTE ---
Rounding with Dr. Peter. Anticipated discharge today. No identified discharge needs.
--- NOTE | 2023-06-22 11:41 | P.DS_ITS ---
DS: Providers Provider Date of admission: 06/21/23 00:01 Primary care physician: Non-Staff PhysicianMD Consults: 06/21/23 Consult to Dietitian Routine Reason For Exam: wt. loss Reason for consultation: wt. loss DS: Diagnosis Discharge Diagnosis (1) Fever postop: (2) Leukocytosis: (3) Asplenia: (4) Hereditary spherocytosis: DS: Summary Hospital Course Hospital Course: Reason for admission: See ER note and H&P for details. 27 y/o male with history of hereditary spherocytosis and asplenia presents with fever. Patient had tonsillectomy 1/ and did well. Mild pain but tolerable. Not started on antibiotics. Developed fever and chills. No nausea or emesis. In past told to go to ER if spiked fever. In ER WBC elevated at 26 and low grade temp. Respiratory panel and chest x-ray negative. Given dose unasyn and levaquin and admitted. Hospital course: Continued unasyn and levaquin. Did well in hospital. WBC initially elevated then improved. Marion well and no further fever. Ambulating well. Discharged home in stable condition. Will take augmentin x 10 days and levaquin x 7 days. F/u with ENT as scheduled. Time Spent with Patient Time attestation: Total time spent providing and/or coordinating discharge services: Exam Constitutional Vital Signs, click to edit/add: Last Vital Signs Temp 98.1 F 06/22/23 03:16 Pulse 67 06/22/23 03:16 Resp 16 06/22/23 08:00 BP 133/74 06/22/23 03:16 Pulse Ox 97 06/22/23 03:16 O2 Del Method Room Air 06/22/23 03:16 Documenting provider has reviewed patient's vital signs: yes Common normals: no apparent distress and oriented x3 HENMT Common normals: normocephalic Eye Common normals: PERRL and EOMs intact bilaterally Respiratory Common normals: normal respiratory effort and clear to auscultation bilaterally Cardio Common normals: regular rate, regular rhythm, no gallops, no murmurs and no rub GI Common normals: Normal to inspection, nondistended, normoactive bowel sounds present and non-tender Extremity Common normals: no pedal edema DS: Data Data Completed and Pending Labs on day of discharge: Labs from last 24 hours 06/22/23 04:20 WBC 18.1 H RBC 5.30 Hgb 14.6 Hct 44.0 MCV 83.0 MCH 27.5 MCHC 33.2 RDW 11.8 Plt Count 480 H MPV 10.7 Neut % (Auto) 62.3 Lymph % (Auto) 25.9 [place] % (Auto) 8.7 Eos % (Auto) 1.7 Baso % (Auto) 0.8 Neut # (Auto) 11.3 H Lymph # (Auto) 4.7 H [place] # (Auto) 1.6 H Eos # (Auto) 0.3 Baso # (Auto) 0.1 Abs Immat Gran (auto) 0.11 H Imm/Tot Granulo (auto) 0.6 H Sodium 135 L Potassium 3.7 Chloride 101 Carbon Dioxide 30.3 Anion Gap 7.4 BUN 8.0 Creatinine 0.88 Est GFR ( Amer) >60 Est GFR (Non-Af Amer) >60 BUN/Creatinine Ratio 9.1 Glucose 96 Calcium 9.3 Total Bilirubin 0.5 AST 12 L ALT 28 Alkaline Phosphatase 70 Total Protein 7.2 Albumin 3.2 L Globulin 4.0 Albumin/Globulin Ratio 0.8 Discharge Plan Discharge Disposition: Home, Self-Care Condition: Good Discharge Medications: New levofloxacin 750 mg tablet 750 mg PO DAILY 7 Days Qty: 7 0RF amoxicillin-pot clavulanate 875-125 mg tablet 1 tab PO Q12H 14 Days Qty: 28 0RF benzonatate 200 mg capsule 200 mg PO TID PRN (Reason: cough) Qty: 30 0RF Continued sertraline 50 mg tablet 150 mg PO Q24H lithium carbonate 300 mg tablet extended release 300 mg PO DAILY hydrocodone-acetaminophen 5-325 mg tablet 1 tab PO Q6H PRN (Reason: pain) Activity: resume usual activities as tolerated Diet: advance to your usual diet Patient Instructions: Benzonatate (By mouth) (Ash Tavares), Amoxicillin (By mouth), Levofloxacin (By mouth) (Levaquin, Levaquin Leva-ivett), Fever in Adults (ED), Leukocytosis (ED) Forms: Portal Instructions Follow Up Appointments: [facility] Patient is currently trying to move that appointment date up
--- NOTE | 2023-06-22 11:41 | DIETREC ---
Recommendation: Ensure or Boost nutritional supplement bid po for home going. Spoke with Christiano at bedside. Collaborated with [facility] nurse re poc
--- NOTE | 2023-06-25 12:41 | CM.DCFOLLOWU ---
Person spoke with: Christiano How are you feeling? ok, still getting back to normal How is your pain? No doing ok Did you understand your discharge instructions? yes, no questions Do you have any questions about your discharge instructions? None Were you given any prescriptions at discharge? Yes Were you able to get your prescriptions filled? Yes Do you understand how to take your medications as ordered? No questions Do you have any questions about your follow up appointment and do you plan to keep your follow up appointment? no Is there anything else that you would like to discuss? No. Doing ok. Just taking time to feel better. Questions/Comments/Concerns/Other:
== END 2023-06-22 11:54 | disposition home or self-care (01) ==
LOC: ER 23:43 → MS 06-21 09:37
PROVIDERS: Nurse Practitioner; Nurse Practitioner Acute Care; Admitting Provider Family Medicine; Emergency Provider Emergency Medicine; Visit Provider Family Medicine
DX: R50.82 Postprocedural fever (principal); D72.829 Elevated white blood cell count, unspecified; Z90.81 Acquired absence of spleen; D58.0 Hereditary spherocytosis; F17.210 Nicotine dependence, cigarettes, uncomplicated; F32.A Depression, unspecified; G47.00 Insomnia, unspecified; Z20.822 Contact with and (suspected) exposure to COVID-19; Z90.49 Acquired absence of other specified parts of digestive tract; Z79.899 Other long term (current) drug therapy; Z90.89 Acquired absence of other organs; Z98.890 Other specified postprocedural states
CPT/HCPCS: 0202U; 36415; 71045; 80048; 80053; 83605; 85025; 85027; 87040; 96365; 96366; 96367; 96375; 96376; 99285; G0378; J0295; J1885; J2405; J3010; Q0162

== ENCOUNTER 2023-12-28 23:29 | Emergency (ER) | payer OTHER, SELFPAY ==
[2023-12-28 23:59] VITALS: BP 145/81; PULSE 69; TEMP 36.8; O2SAT 98; BMI 25.8
--- NOTE | 2023-12-29 01:17 | ED_ITS ---
HPI HPI - Extremity Injury (Upper) General Chief Complaint: Extremity Injury, Upper Stated Complaint: NECK PAIN Time Seen by Provider: 12/29/23 01:17 Source: patient Mode of arrival: walk-in Limitations: no limitations History of Present Illness HPI narrative: has job requiring repetitive use of his hand. presents complaining of soreness of his hand. No weakness. no numbness . States he quit his job today and he can now rest his hand. Related Data Home Medications ?Medication ?Instructions ?Recorded ?Confirmed sertraline 50 mg tablet 150 mg PO Q24H 06/20/23 06/21/23 hydrocodone 5 mg-acetaminophen 325 1 tab PO Q6H PRN pain 06/21/23 06/21/23 mg tablet lithium carbonate 300 mg 300 mg PO DAILY 06/21/23 06/21/23 tablet,extended release Previous Rx's ?Medication ?Instructions ?Recorded benzonatate 200 mg capsule 200 mg PO TID PRN cough #30 caps 06/22/23 levofloxacin 750 mg tablet 750 mg PO DAILY 7 days #7 tabs 06/22/23 Allergies Allergy/AdvReac Type Severity Reaction Status Date / Time morphine Allergy Severe Anaphylaxis Verified 12/29/23 00:02 hydromorphone [From Dilaudid] Allergy Mild Nausea Verified 12/29/23 00:02 oxycodone Allergy Mild Nausea Verified 12/29/23 00:02 Opioid HPI Opioid Management Most Recent Pain and Opioid Data: Last Pain Scale 6 12/29/23 01:02 Review of Systems ROS Status of ROS 10 or more systems reviewed and unremark able except as noted in history and below [facility] Medical History (Updated 12/29/23 @ 01:20 by Monty Diehl MD) Hereditary spherocytosis ?D58.0 - Hereditary spherocytosis (ICD-10) Deviated nasal septum ?J34.2 - Deviated nasal septum (ICD-10) Melena ?K92.1 - Melena (ICD-10) Depression ?F32.A - Depression, unspecified (ICD-10) Insomnia ?G47.00 - Insomnia, unspecified (ICD-10) Bulging disc Chronic migraine Surgical History (Updated 06/21/23 @ 00:01 by Rebecca Moody) H/O hernia repair ?Z98.890 - Other specified postprocedural states (ICD-10) ?Z87.19 - Personal history of other diseases of the digestive system (ICD-10) History of cholecystectomy ?Z90.49 - Acquired absence of other specified parts of digestive tract (ICD-10) Hx of tonsillectomy ?Z90.89 - Acquired absence of other organs (ICD-10) H/O splenectomy ?Z90.81 - Acquired absence of spleen (ICD-10) Family History (Updated 06/21/23 @ 00:02 by Rebecca Moody) Uncle Family history of myocardial infarction Social History (Updated 06/21/23 @ 00:06 by Rebecca Moody) Within the past year, how often did you have a drink containing alcohol: never Score interpretation: A score less than 4 is consistent with normal alcohol consumption. 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 Highest level of school completed/degree received: high school graduate Are you now , , , , never or living with a partner: In a typical week, how many times do you talk on the telephone with family, friends, or neighbors: 3 or more times per week How often do you get together with friends or relatives: 3 or more times per week How often do you attend holiness or anabaptist services: never Do you belong to any clubs or organizations such as holiness groups unions, [employer] or athletic groups, or school groups: no Total score: 1 Score interpretation: A score of less than or equal to 1 indicates the most socially isolated. Little interest or pleasure in doing things: not at all Feeling down, depressed, or hopeless: not at all Feel stressed/tense/nervous/anxious/difficulty sleeping: to some extent Do you think of yourself as: straight/heterosexual Gender Identity: male Exam Constitutional Vital Signs, click to edit/add: Last Vital Signs Temp 98.2 F 12/28/23 23:59 Pulse 69 12/28/23 23:59 Resp 18 12/28/23 23:59 BP 145/81 H 12/28/23 23:59 Pulse Ox 98 12/28/23 23:59 O2 Del Method Room Air 12/28/23 23:59 Common normals: no apparent distress, average body habitus, oriented x3, no limitations, healthy appearing, alert and well nourished [facility] Common normals: normocephalic and head/scalp atraumatic Eye Common normals: EOMs intact bilaterally and conjunctivae normal Respiratory Common normals: normal respiratory effort, no retractions, no use of accessory muscles and clear to auscultation bilaterally Cardio Common normals: regular rate, regular rhythm, S1 normal heart sound and S2 normal heart sound Extremity Other: right hand grossly normal. nontender FROM of the hand. normal hand grasp Neuro Common normals: oriented x3, CN's II-XII intact bilaterally, moves all extremities and no focal motor deficits Psych Appearance: grossly normal Course Vital Signs Vital signs: Vital Signs Temperature 98.2 F 12/28/23 23:59 Pulse Rate 69 12/28/23 23:59 Respiratory Rate 18 12/28/23 23:59 Blood Pressure 145/81 H 12/28/23 23:59 Pulse Oximetry 98 12/28/23 23:59 Oxygen Delivery Method Room Air 12/28/23 23:59 Temperature 98.2 F 12/28/23 23:59 Pulse Rate 69 12/28/23 23:59 Respiratory Rate 18 12/28/23 23:59 Blood Pressure 145/81 H 12/28/23 23:59 Pulse Oximetry 98 12/28/23 23:59 Oxygen Delivery Method Room Air 12/28/23 23:59 MDM - Extremity Injury (Upper) MDM Narrative Medical decision making narrative: patient presents complaining of hand pain. Has a job that requires repetitive use of his hand. Not able to recall any specific injury. exam of hand unremarkable. Patient in a splint to immobilize the hand/wrist . Referred to orthopedics Discharge Plan Discharge Stand Alone Forms: Portal Instructions Chief Complaint: Extremity Injury, Upper Clinical Impression: Overuse syndrome of right hand Patient Disposition: Home, Self-Care Prescriptions / Home Meds: No Action sertraline 50 mg tablet 150 mg PO Q24H lithium carbonate 300 mg tablet extended release 300 mg PO DAILY hydrocodone-acetaminophen 5-325 mg tablet 1 tab PO Q6H PRN (Reason: pain) levofloxacin 750 mg tablet 750 mg PO DAILY 7 Days Qty: 7 0RF benzonatate 200 mg capsule 200 mg PO TID PRN (Reason: cough) Qty: 30 0RF Print Language: Icelandic Instructions: Hand Sprain (ED) Additional Instructions: follow up with orthopedics next week Referrals: Physician,Non-Staff, MD [Primary Care Provider] - 1 week
== END 2023-12-29 01:40 | disposition home or self-care (01) ==
PROVIDERS: Emergency Provider Internal Medicine
DX: M70.841 Other soft tissue disorders related to use, overuse and pressure, right hand (principal); F17.290 Nicotine dependence, other tobacco product, uncomplicated
CPT/HCPCS: 99283

== ENCOUNTER 2024-02-20 12:54 | Emergency (ER) | payer OTHER, SELFPAY ==
[2024-02-20 12:58] VITALS: BP 134/96; PULSE 77; TEMP 36.6; O2SAT 97
--- NOTE | 2024-02-20 13:15 | ED_ITS ---
HPI HPI - General Adult General Chief complaint: Upper Respiratory Infection Stated complaint: URTI COMPLAINTS Time Seen by Provider: 02/20/24 12:58 Source: patient Mode of arrival: walk-in History of Present Illness HPI narrative: Patient presents to ED complaining of upper respiratory symptoms and sinus pressure. He has been having sinus pain and pressure and congestion for 2 weeks. He is complaining of bilateral ear pain. He went to urgent care last week and was placed on amoxicillin but is not any better. He was tested for COVID and was negative. He reports productive cough and some subjective fevers chills. No shortness of breath. Vital signs are stable. No fever. He has been taking a decongestant without any help as well Related Data Home Medications ?Medication ?Instructions ?Recorded ?Confirmed sertraline 50 mg tablet 150 mg PO Q24H 06/20/23 06/21/23 hydrocodone 5 mg-acetaminophen 325 1 tab PO Q6H PRN pain 06/21/23 06/21/23 mg tablet lithium carbonate 300 mg 300 mg PO DAILY 06/21/23 06/21/23 tablet,extended release Previous Rx's ?Medication ?Instructions ?Recorded benzonatate 200 mg capsule 200 mg PO TID PRN cough #30 caps 06/22/23 levofloxacin 750 mg tablet 750 mg PO DAILY 7 days #7 tabs 06/22/23 doxycycline hyclate 100 mg capsule 100 mg PO BID 7 days #14 caps 02/20/24 Allergies Allergy/AdvReac Type Severity Reaction Status Date / Time morphine Allergy Severe Anaphylaxis Verified 12/29/23 00:02 hydromorphone [From Dilaudid] Allergy Mild Nausea Verified 12/29/23 00:02 oxycodone Allergy Mild Nausea Verified 12/29/23 00:02 Opioid HPI Opioid Management Most Recent Opioid Data: Last Pain Scale 6 12/29/23 01:02 Review of Systems ROS Status of ROS 10 or more systems reviewed and unremark able except as noted in history and below [facility] Medical History (Updated 02/20/24 @ 13:17 by Irena Green DO) Hereditary spherocytosis ?D58.0 - Hereditary spherocytosis (ICD-10) Deviated nasal septum ?J34.2 - Deviated nasal septum (ICD-10) Melena ?K92.1 - Melena (ICD-10) Depression ?F32.A - Depression, unspecified (ICD-10) Insomnia ?G47.00 - Insomnia, unspecified (ICD-10) Bulging disc Chronic migraine Surgical History (Updated 06/21/23 @ 00:01 by Rebecca Moody) H/O hernia repair ?Z98.890 - Other specified postprocedural states (ICD-10) ?Z87.19 - Personal history of other diseases of the digestive system (ICD-10) History of cholecystectomy ?Z90.49 - Acquired absence of other specified parts of digestive tract (ICD- 10) Hx of tonsillectomy ?Z90.89 - Acquired absence of other organs (ICD-10) H/O splenectomy ?Z90.81 - Acquired absence of spleen (ICD-10) Family History (Updated 06/21/23 @ 00:02 by Rebecca Moody) Uncle Family history of myocardial infarction Social History (Updated 06/21/23 @ 00:06 by Rebecca Moody) Within the past year, how often did you have a drink containing alcohol: never Score interpretation: A score less than 4 is consistent with normal alcohol consumption. 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 Highest level of school completed/degree received: high school graduate Are you now , , , , never or living with a partner: In a typical week, how many times do you talk on the telephone with family, friends, or neighbors: 3 or more times per week How often do you get together with friends or relatives: 3 or more times per week How often do you attend quaker or pentecostalism services: never Do you belong to any clubs or organizations such as quaker groups unions, fraternal or athletic groups, or school groups: no Total score: 1 Score interpretation: A score of less than or equal to 1 indicates the most socially isolated. Little interest or pleasure in doing things: not at all Feeling down, depressed, or hopeless: not at all Feel stressed/tense/nervous/anxious/difficulty sleeping: to some extent Do you think of yourself as: straight/heterosexual Gender Identity: male Exam Narrative Exam Narrative: General: alert, no acute distress Cardiovascular: regular rate and rhythm, normal peripheral perfusion. Respiratory: Lungs CTA, respirations non labored. Extremities: no deformity, no trauma. Neurological: oriented x 4, LOC appropriate for age. Erythema bilateral ears. Facial tenderness. Inflamed turbinates Constitutional Vital Signs, click to edit/add: Last Vital Signs Temp 97.8 F 02/20/24 12:58 Pulse 77 02/20/24 12:58 Resp 16 02/20/24 12:58 BP 134/96 H 02/20/24 12:58 Pulse Ox 97 02/20/24 12:58 O2 Del Method Room Air 02/20/24 12:58 Course Vital Signs Vital signs: Vital Signs Temperature 97.8 F 02/20/24 12:58 Pulse Rate 77 02/20/24 12:58 Respiratory Rate 16 02/20/24 12:58 Blood Pressure 134/96 H 02/20/24 12:58 Pulse Oximetry 97 02/20/24 12:58 Oxygen Delivery Method Room Air 02/20/24 12:58 Temperature 97.8 F 02/20/24 12:58 Pulse Rate 77 02/20/24 12:58 Respiratory Rate 16 02/20/24 12:58 Blood Pressure 134/96 H 02/20/24 12:58 Pulse Oximetry 97 02/20/24 12:58 Oxygen Delivery Method Room Air 02/20/24 12:58 Medical Decision Making MDM Narrative Medical decision making narrative: Patient's had symptoms for over 2 weeks now. He sounds very congested and is having difficulty hearing due to the pressure in his head. Will change him over to doxycycline and as needed amoxicillin was not enough. Differential Diagnosis Differential Diagnosis: URI, otitis media, sinusitis Discharge Plan Discharge Stand Alone Forms: Work/School Release, Portal Instructions Chief Complaint: Upper Respiratory Infection Clinical Impression: Sinusitis Patient Disposition: Home, Self-Care Time of Disposition Decision: 13:17 Condition: Good Mode of Transportation: Private Vehicle Prescriptions / Home Meds: New doxycycline hyclate 100 mg capsule 100 mg PO BID 7 Days Qty: 14 0RF No Action sertraline 50 mg tablet 150 mg PO Q24H lithium carbonate 300 mg tablet extended release 300 mg PO DAILY hydrocodone-acetaminophen 5-325 mg tablet 1 tab PO Q6H PRN (Reason: pain) levofloxacin 750 mg tablet 750 mg PO DAILY 7 Days Qty: 7 0RF benzonatate 200 mg capsule 200 mg PO TID PRN (Reason: cough) Qty: 30 0RF Print Language: Haitian Instructions: Sinusitis (ED) Referrals: Physician,Non-Staff, MD [Primary Care Provider] - 1 week
== END 2024-02-20 13:26 | disposition home or self-care (01) ==
PROVIDERS: Emergency Provider Emergency Medicine
DX: J32.9 Chronic sinusitis, unspecified (principal); F17.290 Nicotine dependence, other tobacco product, uncomplicated
CPT/HCPCS: 99283

== ENCOUNTER 2024-05-06 21:24 | Emergency (ER) | payer OTHER, SELFPAY ==
--- OUTSIDE RECORDS SUMMARY | 2024-05-06 21:31 | XMS_ITS | CCD ---
Author Organization [facility] Care Team Providers Care Dimensional Integration Engineer Name Role Phone Lelia Franklin Primary Care Physician [phone] Ade Fuller Unavailable Unavailable Zoila Webb Unavailable Jose Taylor Attending Unavailable Karan العراقي Attending Unavailable MABLE STEPHENSON Attending Unavailable Angela Barksdale Attending Unavailable LELIA FRANKLIN Attending Unavailable Leah Grover Attending Unavailable ROBERTO ACRLOS Myrick Leah Admitting Unavailabl e Elen, Leah Attending Unavailable LELIA FRANKLIN Referring Unavailable ROBERTO CARLOS Myrick Leah Admitting Unavailabl e LELIA FRANKLIN Referring Unavailable Leah Myrick Attending Unavailable LELIA FRANKLIN Referring Unavailable MD Sen Burgess Admitting Unavailable Sen Burgess Attending Unavailable LELIA FRANKLIN Referring Unavailable MD Sen Burgess Admitting Unavailable Sen Burgess Attending Unavailable MD Sen Burgess Admitting Unavailable Sen Burgess Attending Unavailable Sen Burgess Referring Unavailable Leah Myrick Admitting Unavailable Laeh Myrick Attending Unavailable Sen Burgess Admitting Unavailable Sen Burgess Attending Unavailable Sen Burgess Referring Unavailable MABLE STEPHENSON Attending Unavailable MABLE STEPHENSON Admitting Unavailable Unavailable Primary Care Provider Unavailabl e PROVIDER, UNKNOWN Admitting Unavailable JOSELINEROSARIO SALMON Referring Unavailabl e PROVIDER, UNKNOWN Attending Unavailable JOSELINEROSARIO SALMON Referring Unavailabl e PROVIDER, UNKNOWN Attending Unavailable PROVIDER, UNKNOWN Admitting Unavailable Allergies Allergy Classification Reported Allergen(s) Allergy Type Date of Onset Reaction(s) Facility (16 sources) HYDROmorphone; Translations: [hydromorphone] Drug Allergy Weal (disorder) [facility] (19 sources) Morphine; Translations: [morphine] Drug Allergy 12-11-2023 anaphylaxis, Unknown, Unknown Reaction [facility] (19 sources) oxyCODONE; Translations: [oxycodone] Drug Allergy 12-11-2023 Nausea (finding) [facility] (2 sources) 23-phpsq-Joeijbe progesterone Drug Allergy 12-11-2023 Unknown Reaction [facility] Medications Current Medications Medication Drug Class(es) Dates Sig (Normalized) Sig (Original) acetaminophen 1000 mg oral tablet (3 sources) Start: 06-13-2022 take 1000 mg by mouth three times daily as needed for pain acetaminophen 1,000 mg, Oral, TID, PRN as needed for pain, Refills(s) 0 Start Date: 06/13/22 Status: Ordered amoxicillin 875 mg / clavulanate 125 mg oral tablet (1 source) Penicillin-class Antibacterial Start: 02-11-2024 take 1 tablet by mouth every twelve hours Amoxicillin-Pot Clavulanate Active 1 TAB PO Every 12 hours 06 04February 11, 2024 12:00am benzonatate 100 mg oral capsule (4 sources) Non-narcotic Antitussive Start: 03-28-2023 End: 04-04-2023 take 1 capsule by mouth three times daily Tessalon 100 mg Cap 100 mg = 1 cap(s), Oral, TID, X 7 day(s), # 21 cap(s), Refills(s) 0, Pharmacy: [facility]/pharmacy #[id number], 177, cm, 03/28/23 10:47:00 EDT, Height/Length Dosing, 75.8, kg, 03/28/23 10:47:00 EDT, Weight Dosing Start Date: 03/28/23 Stop Date: 04/04/23 Status: Ordered Start: 05-19-2022 End: 05-26-2022 take 1 capsule by mouth three times daily benzonatate 200 mg oral capsule 200 mg = 1 cap(s), Oral, TID, X 7 day(s), # 21 cap(s), Refills(s) 0, Pharmacy: [facility]/pharmacy #[id number], 180, cm, 05/19/22 10:12:00 EST, Height/Length Dosing, 80, kg, 05/19/22 10:12:00 EST, Weight Dosing Start Date: 05/19/22 Stop Date: 05/26/22 Status: Ordered brompheniramine maleate 0.2 mg/ml / dextromethorphan hydrobromide 1 mg/ml / phenylephrine hydrochloride 0.5 mg/ml oral solution (4 sources) Uncompetitive M-jtkbyl-E-aspartate Receptor Antagonist, Sigma-1 Agonist, alpha-1 Adrenergic Agonist Start: 05-14-2022 take 10 mL by mouth every four hours for cough and congestion brompheniramine/dextromethorph/phenyleph rine 1 mg-5 mg-2.5 mg/5 mL oral liquid 10 mL, Oral, q4hr for cough and congestion, 118 mL, Refill(s) 0, [facility]/pharmacy #[id number], 180, cm, 05/14/22 19:45:00 EST, Height/Length Dosing, 79.5, kg, 05/14/22 19:45:00 EST, Weight Dosing Start Date: 05/14/22 Status: Ordered brompheniramine maleate 0.4 mg/ml / dextromethorphan hydrobromide 2 mg/ml / pseudoephedrine hydrochloride 6 mg/ml oral solution (2 sources) alpha-Adrenergic Agonist, Uncompetitive I-vpkxdq-G-aspartate Receptor Antagonist, Sigma-1 Agonist Start: 05-12-2022 End: 05-19-2022 take 10 mL by mouth every six hours Bromfed DM oral syrup 10 mL, Oral, q6hr for cold symptoms for 7 day(s), 280 mL, Refill(s) 0, [facility]/pharmacy #[id number], 178, cm, 05/12/22 11:45:00 EST, [...] day(s), # 20 cap(s), Refills(s) 0, Pharmacy: [facility]/pharmacy #[id number], 180, cm, 05/19/22 10:12:00 EST, Height/Length Dosing, 80, kg, 05/19/22 10:12:00 EST, Weight Dosing Start Date: 05/19/22 Stop Date: 05/29/22 Status: Ordered cholecalciferol 0.025 mg oral tablet (2 sources) Vitamin D Start: 12-11-2023 Cholecalciferol (Vitamin D3) Active PO December 11, 2023 12:00am escitalopram 20 mg oral tablet (9 sources) Serotonin Reuptake Inhibitor Start: 04-28-2022 take 1 tablet by mouth once daily Lexapro 20 mg Tab 20 mg = 1 tab(s), Oral , Daily, # 30 tab(s), Refills(s) 1, Pharmacy: [facility]/pharmacy #[id number], 178, cm, 04/28/22 15:31:00 EST, Height/Length Dosing, 79.7, kg, 04/28/22 15:31:00 EST, Weight Dosing Start Date: 04/28/22 Status: Ordered Start: 03-28-2022 take 1 tablet by aries th once daily Lexapro 10 mg Tab 10 mg = 1 tab(s), Oral, Daily, # 30 tab(s), Refills(s) 1, Pharmacy: [facility]/pharmacy #[id number], 178, cm, 03/28/22 14:15:00 EDT, Height/Length Dosing, 83.1, kg, 03/28/22 14:15:00 EDT, Weight Dosing Start Date: 03/28/22 Status: Ordered gabapentin 300 mg oral capsule (1 source) Anti-epileptic Agent Start: 07-04-2022 take 1 capsule by mouth once daily at bedtime gabapentin 300 mg Cap 300 mg = 1 cap(s), Oral, Once a day (at bedtime), # 30 cap(s), Refills(s) 1, Pharmacy: [facility]/pharmacy #[id number], 180, cm, 07/04/22 15:40:00 EST, [...] anxiety, # 40 cap(s), Refills(s) 2, [id number], cm, 04/28/22 15:31:00 EST, Height/Length Dosing, 79.7, kg, 04/28/22 15:31:00 EST, Weight Dosing Start Date: 04/28/22 Status: Ordered Danielson (1 source) Danielson Active methocarbamol 750 mg oral tablet (1 source) Muscle Relaxant Start: 02-03-2022 End: 02-10-2022 take 2 tablets by mouth at bedtime methocarbamol 750 mg Tab 1,500 mg = 2 tab(s), Oral, Bedtime, X 7 day(s), # 14 tab(s), Refills(s) 0, [id number] 178, cm, 02/03/22 10:55:00 EDT, Height/Length Dosing, 80.8, kg, 02/03/22 10:55:00 EDT, Weight Dosing Start Date: 02/03/22 Stop Date: 02/10/22 Status: Ordered methylPREDNISolone 4 mg oral tablet (3 sources) Corticosteroid Start: 02-03-2022 End: 02-09-2022 Medrol 4 mg Tab = 1 packet(s), Oral, As Directed, as directed on package labeling, X 6 day(s), # 21 tab(s), Refills(s) 0, [id number], 178, cm, 02/03/22 10:55:00 EDT, Height/Length Dosing, 80.8, kg, 02/03/22 10:55:00 EDT, Weight Dosing Start Date: 02/03/22 Stop Date: 02/09/22 Status: Ordered Start: 12-23-2021 End: 12-29-2021 Medrol 4 mg Tab = 1 packet(s ), Oral, As Directed, as directed on package labeling, X 6 day(s), # 21 tab(s), Refills(s) 0, Pharmacy: [facility]/pharmacy #[id number], 178, cm, 12/23/21 16:48:00 EDT, Height/Length Dosing, 81, kg, 12/23/21 16:48:00 EDT, Weight Dosing Start Date: 12/23/21 Stop Date: 12/29/21 Status: Ordered phenylephrine 0.0025 mg/mg / witch viaks 0.5 mg/mg rectal gel (2 sources) alpha-1 Adrenergic Agonist Start: 06-06-2022 phenylephrine 0.25% rectal gel 1 evelyn, Topical, Daily for itching, 54 gram, Refill(s) 0, [facility]/pharmacy #[id number], 180, cm, 06/06/22 15:30:00 EST, [...] day(s), # 7 tab(s), Refills(s) 0, Pharmacy: [facility]/pharmacy #[id number], 177, cm, 03/28/23 10:47:00 EDT, Height/Length Dosing, 75.8, kg, 03/28/23 10:47:00 EDT, Weight Dosing Start Date: 03/28/23 Stop Date: 04/04/23 Status: Ordered Start: 05-19-2022 End: 05-24-2022 take 3 tablets by mouth once daily predniSONE 20 mg Tab 60 mg = 3 tab(s), Oral, Daily, X 5 day(s), # 15 tab(s), Refills(s) 0, Pharmacy: [facility]/pharmacy #[id number], 180, cm, 05/19/22 10:12:00 EST, [...] Refills(s) 0 Start Date: 03/28/23 Status: Ordered 24 hr venlafaxine 75 mg extended release oral capsule (2 sources) Serotonin and Norepinephrine Reuptake Inhibitor Start: 12-11-2023 Venlafaxine Active MG PO December 11, 2023 12:00am Completed/Discontinued Medications Medication Drug Class(es) Dates Sig (Normalized) Sig (Original) cyclobenzaprine hydrochloride 10 mg oral tablet (13 sources) Muscle Relaxant Start: 12-11-2023 End: 02-11-2024 take 10 mg by mouth three times daily Cyclobenzaprine Discontinued 10 MG PO Three times daily 15 December 11, 2023 12:00am February 11, 2024 9:23am Start: 03-28-2022 take 1 tablet by aries th three times daily as needed for muscle spasms cyclobenzaprine 10 mg Tab 10 mg = 1 tab(s), Oral, TID, PRN for spasm, # 30 tab(s), Refills(s) 0, Pharmacy: [facility]/pharmacy #[id number], 178, cm, 03/28/22 14:15:00 EDT, Height/Length Dosing, 83.1, kg, 03/28/22 14:15:00 EDT, Weight Dosing Start Date: 03/28/22 Status: Ordered Start: 12-23-2021 End: 01-13-2022 take 1 tablet by mouth at bedtime cyclobenzaprine 5 mg Tab 5 mg = 1 tab(s), Oral, Bedtime, X 21 day(s), # 21 tab(s), Refills(s) 0, Pharmacy: [facility]/pharmacy #[id number], 178, cm, 12/23/21 16:48:00 EDT, Height/Length Dosing, 81, kg, 12/23/21 16:48:00 EDT, Weight Dosing Start Date: 12/23/21 Stop Date: 01/13/22 Status: Ordered Problems Active Problems Problem Classification Problem Date Documented Da te Episodic/Chronic Acute and chronic tonsillitis (15 sources) Enlarged tonsil 11-20-2019 Chronic Anxiety disorders (20 sources) Anxiety; Translations: [Posttraumatic stress disorder] 04-28-2022 [...] (15 sources) Ulcer of anastomosis 11-20-2019 Chronic Immunizations and screening for infectious disease (1 source) Contact with or exposure to other viral diseases; Translations: [Exposure to 2019 novel coronavirus] 02-11-2024 Episodic Mood disorders (1 source) Depressive disorder; Translations: [Depression] 02-11-2024 Chronic Noninfectious gastroenteritis (1 source) Noninfectious enteritis; Translations: [Noninfective gastroenteritis and colitis, unspecified] Onset: 05-12-2022 Episodic Open wounds of extremities (2 sources) Laceration of lower leg; Translations: [Laceration without foreign body, unspecified lower leg, initial encounter] Onset: 11-04-2021 Episodic Osteoarthritis (3 sources) Arthritis; Translations: [Unspecified osteoarthritis, unspecified site] Onset: 07-19-2023 07-19-2023 Chronic Other aftercare (15 sources) Post-discharge follow-up 11-20-2019 [...] disorders (15 sources) Splenomegaly 11-20-2019 Episodic Other lower respiratory disease (2 sources) Dyspnea; Translations: [Dyspnea, unspecified] 07-16-2023 Episodic Other lower respiratory disease (1 source) Dyspnea, unspecified; Translations: [Dyspnea, unspecified] Onset: 07-16-2023 Episodic Other male genital disorders (15 sources) [...] Translations: [Radiculopathy, cervical region] Onset: 12-23-2021 Episodic Sprains and strains (2 sources) Low back strain; Translations: [Strain of muscle, fascia and tendon of lower back, initial encounter] 12-11-2023 Episodic Unclassified (14 sources) Body mass index [...] Test Name Value Interpretation Reference Range Facility XR C-SPINE 4 VIEWSon 07-19-2 024 XR C-SPINE 4 VIEWS EXAMINATION: XR C-SP INE 4 VIEWS 07/19/2023 12:32 PM CLINICAL HISTORY: athritis ASSOCIATED DIAGNOSIS: Arthritis ORDERING PROVIDER: ROSARIO TREVIZO TECHNGRIFFIN NOTE: COMPARISON: None FINDINGS: On the lateral view the C-spine is visible to the C7 level. On the AP view, the tip of the dens, C1 and the atlantooccipital joints are not entirely visible because of overlying bone. Normal alignment. The vertebral bodies appear intact. There is no prevertebral soft tissue swelling. The atlantodental interval is normal. IMPRESSION: Unremarkable study. MACRO: None Normal The [employer] XR Cervical spine 4 Viewson 07-19-2023 EXAMINATION: XR C-SP INE 4 VIEWS 07/19/2023 12:32 PM CLINICAL HISTORY: athritis ASSOCIATED DIAGNOSIS: Arthritis ORDERING PROVIDER: ROSARIO SYLVESTER NOTE: COMPARISON: None FINDINGS: On the lateral view the C-spine is visible to the C7 level. On the AP view, the tip of the dens, C1 and the atlantooccipital joints are not entirely visible because of overlying bone. Normal alignment. The vertebral bodies appear intact. There is no prevertebral soft tissue swelling. The atlantodental interval is normal. IMPRESSION: Unremarkable study. MACRO: None RADIOLOGY Gil Craig MD - 07/19/2023 EXAMINATION: XR C-SPINE 4 VIEWS 07/19/2023 12:32 PM CLINICAL HISTORY: athritis ASSOCIATED DIAGNOSIS: Arthritis ORDERING PROVIDER: ROSARIO TREVIZO TECHNGRIFFIN NOTE: COMPARISON: None FINDINGS: On the lateral view the C-spine is visible to the C7 level. On the AP view, the tip of the dens, C1 and the atlantooccipital joints are not entirely visible because of overlying bone. Normal alignment. The vertebral bodies appear intact. There is no prevertebral soft tissue swelling. The atlantodental interval is normal. IMPRESSION: Unremarkable study. MACRO: None [facility] Radiology Study observation (narrative) [employer] XR Cervical spine 4 ViewsOrd ered By: Gil Craig on 07-19-2023 [employer] Work Phone: XR CHEST PA+LAT 2 VIEWSon XR CHEST PA+LAT 2 VIEWS EXAMINATION: XR CHEST PA+LAT 2 VIEWS 07/16/2023 09:20 AM CLINICAL HISTORY: Dyspnea ASSOCIATED DIAGNOSIS: Dyspnea, unspecified type ORDERING PROVIDER: ROSARIO TREVIZO TECHNOLOGISTS NOTE: COMPARISON: None FINDINGS: Cardiomediastinal silhouette: Normal heart size. Trachea: Midline. Lungs and pleura: No pulmonary consolidation, pleural effusion or pneumothorax. Osseous structures: Unremarkable. Included upper abdomen: Endovascular coils in the region of the splenic artery. Right upper quadrant surgical clips, compatible with prior cholecystectomy. IMPRESSION: No acute cardiopulmonary findings. MACRO: None Normal The [employer] XR Chest PA and Lateralon EXAMINATION: XR CHES T PA+LAT 2 VIEWS 07/16/2023 09:20 AM CLINICAL HISTORY: Dyspnea ASSOCIATED DIAGNOSIS: Dyspnea, unspecified type ORDERING PROVIDER: ROSARIO TREVIZO TECHNOLOGISTS NOTE: COMPARISON: None FINDINGS: Cardiomediastinal silhouette: Normal heart size. Trachea: Midline. Lungs and pleura: No pulmonary consolidation, pleural effusion or pneumothorax. Osseous structures: Unremarkable. Included upper abdomen: Endovascular coils in the region of the splenic artery. Right upper quadrant surgical clips, compatible with prior cholecystectomy. IMPRESSION: No acute cardiopulmonary findings. MACRO: None RADIOLOGY Tung Garvey, DO - 07/16/2023 EXAMINATION: XR CHEST PA+LAT 2 VIEWS 07/16/2023 09:20 AM CLINICAL HISTORY: Dyspnea ASSOCIATED DIAGNOSIS: Dyspnea, unspecified type ORDERING PROVIDER: ROSARIO TREVIZO TECHNOLOGISTS NOTE: COMPARISON: None FINDINGS: Cardiomediastinal silhouette: Normal heart size. Trachea: Midline. Lungs and pleura: No pulmonary consolidation, pleural effusion or pneumothorax. Osseous structures: Unremarkable. Included upper abdomen: Endovascular coils in the region of the splenic artery. Right upper quadrant surgical clips, compatible with prior cholecystectomy. IMPRESSION: No acute cardiopulmonary findings. MACRO: None [facility] Radiology Study observation (narrative) [facility] XR Chest PA and LateralOrder ed By: Tung Garvey on 07-16-2023 [facility] Work Phone: Auth for Release of Medical Recordson 05-04-2023 Auth for Release of Medical Records [id number] IFF Normal [facility] Grp A Strp PCRon 03-29-2023 Group A Strep Negative Normal [facility] Comment on above: Result Comment: Test ing performed using DNA amplification. Performed By: #### 1 [id number] ####[facility] [address] [place] [address] Grp A Strp Intrl Ctrl Pass Normal [facility] Comment on above: Performed By: #### 1 [id number] ####[facility] [address] [place] [address] Ambulatory Visit Summaryon 1 Ambulatory Visit Summary CHRISTIANO ZHENG :1995 Visit Date:03/28/2023 Ambulatory Visit Instructions Your [...] with cough Duration: 7 Days Pickup at [facility]/pharmacy #[id number] New predniSONE (predniSONE 20 mg Tab) 1 Tablets By Mouth Every day Viral URI with cough Duration: 7 Days Pickup at [facility]/pharmacy #[id number] Unchanged acetaminophen 1,000 Milligram By Mouth 3 times a day as needed for as needed for pain Unchanged sertraline By Mouth Every day Unchanged trazodone (traZODONE 100 mg Tab) Pharmacy Information [facility]/pharmacy #[id number]: [address] [place], [place] [id number] [phone] Allergies Dilaudid (Hives) morphine (anaphylaxis) oxyCODONE (Nausea) [...] receiving treatment for. Cholelithiasis Sleep apnea Normal [facility] Medicine Office/Clini c Noteon 03-28-2023 Family Medicine [...] agree with above documented HPI by medical territory manager. Portions of this record may have been created with voice recognition artificial intelligence software, specifically [employer], [employer] and or [employer]. Substitutions may have occurred due to the inherent limitations of voice recognition and artificial intelligence software. Patient is a 27-year-old male who presents to convenient care, with sinus headache, body aches, sinus [...] complete sentences, and follows commands appropriately. Head: Normocephalic/atraumati c, upper respiratory infections signs of sinus congestion, [...] at this time. 27-year-old male presented to [facility] care, for viral upper respiratory infection and a nonproductive cough, patient appeared ill but not septic, no respiratory disorders noted, no difficulty swallowing. Patient was given a prescription for prednisone and Tessalon Perles, work excuse note, instructed to take jqdg-ssk-lsppawz ibuprofen Tylenol as needed for headaches, body aches, fevers. Drink plenty water stay hydrated. Patient agree with plan. 1. Viral URI with cough (J06.9: Acute upper respiratory infection, unspecified) See above Ordered: benzonatate, 100 mg = 1 cap(s), Oral, TID, X 7 day(s), # 21 cap(s), Refills(s) 0, Pharmacy: [facility]/pharmacy #[id number], 177, cm, 03/28/23 10:47:00 EDT, Height/Length Dosing, 75.8, kg, 03/28/23 10:47:00 EDT, Weight Dosing predniSONE, 20 mg = 1 tab(s), Oral, Daily, X 7 day(s), # 7 tab(s), Refills(s) 0, Pharmacy: [facility]/pharmacy #[id number], 177, cm, 03/28/23 10:47:00 EDT, Height/Length Dosing, 75.8, kg, 03/28/23 10:47:00 EDT, Weight Dosing Group A Strep by PCR Rapid COVID POC 13716 Rapid Strep POC 72156 Follow-up With When Contact Information RIGOBERTO CHURCH, LELIA Palmer, MAXWE[place] [address] [place] [address]- Additional Instructions: Patient Education Viral Respiratory Infection, Ffhn-Am-Vtpx Problem List/Past Medical History Ongoing Anxiety Cervical [...] apnea Procedure/Surgi (more content not included)... Normal [facility] Comment on above: Result Comment: Elec tronically Signed By: ALEXIA AZEVEDO, MABLE\.br\Date and Time Signed: 03/28/23 11:46 EDT Patient Educationon 03-28-20 23 Patient Education Infectious Disease Viral Respiratory Infection [...] home: Managing pain and congestion ? 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 ? Cover your mouth when you cough. [...] provider. Document Revised: 09/08/2021 Document Reviewed: 09/08/2021 [employer] Patient Education ? 2022 [employer] Normal [facility] [place] [facility] (Inserted Image. Claudia ble to display) [address], [place] [address] March 28, 2023 CHRISTIANO ZHENG [address] [place] [address] : 1995 Please excuse CHRISTIANO ZHENG from work . Date and/or Time of Absence: From: 03/28/23 May return to work on: 03/30/23 Restrictions: None Comments: Please excuse due to an acute illness. Provider Signature: Mable Stephenson PA-C [address] [place] [address] [facility] Referrals Officeon Referrals Office [id number] 221 [id number] D:127 [facility] Coding Summary.on 08-07-2022 Coding Summary. CD:[id number] Gh0 bWw+PGhlYWQ+ZQ3LMFOvW81 daYXftY1KR0mLCM2JQHCPWH XXIV0DMB7llTK6PXvtH3Xta iAv EvtndKQrTZ70ZJn7AWZ8nOy lIVnhwJ9imLSyA1c1ByOqWE 99dI70HSlsTLUaMeL7XuRaf jsgbWFy E7xxErXxmBOwNzs+PHRhYmx lIHdpZHRoPScxMDAlJyBzdH ycYH7eFw6zZMCnHWZrdFyff HNlOiBj w8mdBYNeMCjkAV0usFuiW5F mxJA8FPBun3g6Ca76oYN+PH FvSEI4hTabSPloq353PhCdp 0htREW2 mMBsDDcnIGU7S78wi3Z8QTE rMISyXJT6iDF6yP2erIvjxj diR0KvfSZpJcO9JLF9vREyk J3pyIjp gmdruR8dZsv+F71ZVR7MUVX RHA7UFlt8J9LwBnfyoIM+PC 37CFOkUB23hMVbiGHnn8elh Nb1OsWv EPIcTFA8zDxeGVosw1RxDBY zE17qfTNoe9W7PMQpuLbykK YuJkHjsMH6iF6hIQtnrmdei 2hvdzsn Riqfk0nnwl79mG41B57pUFi jQDZoYQS5MCRzVXUcbBrtol 0tmB5fRg5+YHzvn8bwn3lal Iq7HjLf KAFnkqOhdJehALT0p1RnSs2 8N3JkcKjem9FiJna2wk83oZ Ftw1C8sTM9EPxvWOQzyW4yB WxlZnQ6 NJZrZmUnpS74kHGwEDohBi1 dySjbkRnlYW0cUYJyhygeTU ToyB3iGVRsmGHzeSdoAJ1aU TBpbjtm t129SeVfMCE3SDZozXIqO0E vuW1bIgWmGAPcVSToD5YzoG OwVSgeB541FJlcVfJ1MNPsh sHiZ1Bk SXHovSlkNkV2p9J9Hn1Gm8U nrpugMXM7BWrkPUWkRyVhLu CaGkN8Q1ShRjn2AHBkoOfaI F1gH7Pq NPGrdrlnzrcwkST5ZUXwDQJ xhD42kXQkRTubAe9re1W8n7 86OQBdQOHeyA32Zs4tgApbT TBwdCBU dB8akedwi9pyraplQdIlIVB cULv7OJg1VGOrdKweTvXdIP G5WhF0UOP4oWShbF6ugWkaj cuaaL4j Oyc+Q73xhI7qLHR9DPD0rnb nAXTrrwHkLQ56TB03X6SiGz wvdGFibGU+PGRpdiBzdHlsZ J5xBvIk g9zbh3UsJPbqU0UlDWVnBNw rFml6AQUoWMJ0aAL6dY8eJO FiKHtjb7D2cDG2V1FeuxCnb i9me8pq KOYhNIgyJ49vdQTrk6H9ESE ypJQ6AGRtjCqrUqNkuA14Tc c+SCWtxVban1ZiCjrdf9tfp 7ccmNa6 YaNrDIBdcrOqpWxbAZP1f2W fFz44K52kRYnlVNAnGEOrET XaMYTtyXizmn5odL3iJj9+P GNvbCB3 gMN4jN4lPTEsSfV3YAkfY14 9LuYeeNNvEktqg0eyy5fzcU w1LnZwUVPvtjAxsGmwPEH5u 5VyLq31 Q54dFBwgOQOwTZKzMRNbAAR poWfeoe1amV2dXv7+PC9jb2 auah45iA83hZL+NCTwYDK3o WxlPSdw YHYaqV8kMPweQuB0CAZrEkU cfK63gFWaWHooIw9mcXhurI foBV1yDKXhgyfim229EzYma 2xkIDEw gXGjRRizINL8A46xs2K2NPJ iCOHaXTF1hHR5lX1lsAevus ogbGVmdDsgdmVydGljYWwtY MsxB210 IHRvcDsnPlBhdGllbnQgTmF yMUq5O8LaBaz9CDZfvHlzWM 6lnRWjWJbcSs2kyHecsQxvT F3rINZg xbrmb769PmFxl4liZSFmmNF rBMmvVIR8K58ze5R7PAUfEE WiETK8eJF7vF1giZaoldhgg GVmdDsg rsPvySfvPAiiGYdnA966OTV cvFruTeLdxkMqXIKkqAU0AQ 06LE65vBJeh4N4cLF6S1OpR GRpbmct lshppRA6ITJqRSHwkM61Bg2 wtAyeGf1zATXpVLC3MHJiaT HfG7UhaN8wQrFtCUBxIYWdM 3RleHQt KCcgY897FHphQvN3XRFhqtK bS4KuVTZwxCssLoR9x4J5Vz 7MG4P5MH87EQ02uJZrg3I4z RT3W3Dc KETghyashugvpOA4JTZkGSC ydR65Pp3yrLmzRr7kWPHbOG E5USCkjNXqW1ZzcF8aOpBdJ DAwMDAw C0KxkXXnYDreJ351KWomMdK 9XMYqqgGkD2FoMUZarImuGc J7x4H8Jv8YBSd6QW34CQ28k ZYnz9M3 eTZ9J7JxKEBisyjbiyigxOE 0LBJmIVUllG76Pr6ctKucDy 7dEWIpOZL4GZMpbARtY2Qnt O1yWgTh VXFsCVYuY7LxqWQvDYieW81 4GTjaHpA4LHYekgVdP1EaQD HcpIkbLeS7f7B8Qe0CBEApS O65ZGT5 hDZ9SD73BB37X2IrPuexkXC ibGU+PHRhYmxlIHdpZHRoPS iaIYNfCvIapHaiAU4aRy7iT GVyLWNv cFcfiOYsHdYnf1olCXIaPUt kRL3xdFujC8LywSN9ACNoa8 k9Uc69J61nG4OhjTF+PGNvb KR9lAT4 pI6oDpSvWmP0PXveX051SeR ilXTwEriuz4wvb8celYa5Ym U1IUSuoyHogIzoYAI4o7VpX j17P21j IHdpZHRoPSIxNSUiIHZhbGl zkl0nzK5rAc7+DJRaaIZ1jA W5iH3hXaBsPkH2FRxnF922K nRvcCIv Gwgzc7dol1byvMv9RlFhVEH jcwFzuUnjIGP7v1JyMu72U7 AteEwsk2HdEks1ct84kHMpv 5Z9bVM9 N2IlDXYrqsscjLKbiMazKL3 oPTHetoguWWCeeU8kVMMvJ0 s7EnKvXuX8JTipE9HoibC8I DEwcHQg FJmfVNN8E34su2A8WDFgSLR qEHD8iOS0oN5pbHxtnkqxqQ VmdDsgdmVydGljYWwtYWxpZ 246IHRv lEbvUOVlkF0pGZDhgOCsyQg tTQ3lMQIcpgnfGzaPGgvbQI cIGjSZUJ43PH87wFQdf6G6c BH5I2Cf TTPkfymyuwpvnWR1RGMuDZH npS18qWFeJPnvIe2nb1J7f6 80JTZzLXExjU92Ja8euBybG TBwdCBU dS9iprzaf5lvkibzQkRwNSO fPKh1GOa9MQLgrJitUnNjQC T2CoW1JYX4oKEqlQ1hxUoil rjzyG6d Oyc+KSLjKyNwOEh5LMcfmDV +IYOhVLQ7vNeyORfjBATnzP 7iUJQkG6r5WxOtJsX0HPycE 3BhZGRp mxdhGx00eZ7wAbBxXnP7XVp tU8ArktY3ZGYfuCBrUJtiNN G9E62cj3G8FQQxCPKfRBK7a EX7yP7a bGlnbjogbGVmdDsgdmVydGl uBAagYQopQ409ERMgeOqcMu V7SCigCMTgOC21LC08oJXvf 9L0aWZ2 H8AjWJImwodyuwtsvQG3QYT iESWkwC62gSFnBQoxNf4sq5 L6q343JUQwJZPsdT95Wa4ao DogMTBw sWOQxK3jvmiqn7zlmvkwAcS fSJTuSQn8RJk1TJPdaOlzLn BhDJE2FvJ8GFA3qDVaaU3fa Glnbjog uB5vOrp+TWFsZTwvdGQ+PHR eLLU2jNeuDQvhKFFqcT0zXB DxF4b8WwLiNoV9KAeuG1SoF GRpbmct Tk90xE8vPqBaLsR2NFthB4E wznY6HGWcwLHpQAymNID9A6 9og4F5VJUiTLPiNTE6uBT7l H5soDfh bjogbGVmdDsgdmVydGljYWw pUCgbL169EFFhvAznXbYslA 4gTWFuYWdlbWVudDwvdGQ+P O83kc06 R1HyXphwMmr0DCNjZHA5tMM 5bR2sELKdNFiyv1F1lXX0B2 ZzrxIbqo4yu2vyQFIoGCtaN 29sbGFw c4K6LMLedNR7OIHojHluVdP dtT89Gix+WSGjcEndm9ZuYa dxh5sjp5exwLz9GbKhQYVld mFsaWdu KSA4z9SwYs60G31yDSjjRGN iAJUxJHGgDCYsiFliae0gsD 9wIi8+XZMuwVN5vBY3fP0nG jAlIiB2 QPolN755XfMriNMeOulka1c jo9bflGr5KpRnMCMejfQuqX lnJWD4w7AwQb25P6XyoDmbg 1DiQkm8 ii93dINdv5C8qID4I5KpYZJ lksqndUEvbEbsXN7dISZlst tkXZSyqK5hKNObG8h9TcMyS xC3IYps A5ZpxwR3GNRdaAJtYDMbrMJ WgA5uhseak5fdutydJyBmEE VnINw3UGl9AGPdsNziAnFtM RK6YzL5 LEU4cKMmzT0bnBivlitikM5 wOyc+LSc1w5ottTDhGR8jlR K6PK78ZQ04hKSoj9F0gYF7J 3BhZGRp buxuecdayCZ3MYRwAKLrwX6 0Mc1egRbsHx4kTSLkXCX3HD PuoGWmK1YevH6pMeWrFLAqE JNfZ0Ck vPHgHIkcP093TPlcPfZ9OMP tkwAtH7MkIODrqPsvNgC0j4 U9Js0XYQ87DS43WI35wASkm 3K2oDW0 T3OuQQWjyuyldmlvsTF7FUD pWLHcvG60Tt3xbDbgPy3gIW AoZLT1WKSnrJGtN9CdxC6sR iAjMDAw DREeP6FjaKVzLSbyW719QTa yVdA2VUSyxcWcZ8CiXOIyiJ qpSgZ6u6U1Pk0BNg04TD76X C40vJHj g5E6qIC8K5MzDMPdbbnihvl zsPN8QEThOTAmxM19Up2ilG zsYk1uIHMjDFF7JDKgdJNwK 1VsrL9j IePkFHEeOGRnD5LsqFGxXWv jQ765JJbvHpW3AXLcumJlA7 EgBEDdbCnhJwQ1v9U2Ok8VX Xllcjo8 O5QzXniagJU+VY28QQRcPE3 7gSBucDDgd0pnqPw0MgNzQA SyUMQ1qGpwYTjkt1RlDPCqT 29sbGFw c2U6 (more content not included)... Normal [facility] Consent for Treatmenton 07-19 Consent for Treatment [id number]#1.00 CD:127 Normal [facility] Consultation Noteon 08-04-19 Consultation Note Patient: CHRISTIANO ZHENG Age: 26 [...] All Problems Former smoker / SNOMED CT 06462386 / Confirmed BMI 23.0-23.9, adult / SNOMED CT 7746792359 / Confirmed Family history unknown / SNOMED CT 3983583989 / Confirmed Screening for cardiovascular condition / SNOMED CT 862889859 / Confirmed Enlarged tonsils / SNOMED CT 323000221 / Confirmed Difficulty swallowing / SNOMED CT 15974927 / Confirmed Constipation / SNOMED CT 68563296 / Confirmed after GB removed Hemolytic anemia / SNOMED CT 404446114 / Confirmed Non-smoker / SNOMED CT 15232156 / Confirmed Stomal ulcer / SNOMED CT 3752282393 / Confirmed Splenomegaly / SNOMED CT 17707159 / Confirmed Hospital discharge follow-up / SNOMED CT 7501096600 / Confirmed Hereditary spherocytosis / SNOMED CT 75151269 / Confirmed Testicle lump / SNOMED CT 609739266 / Confirmed Cervical radiculopathy / SNOMED CT 554020742 / Confirmed Cervical spondylosis / SNOMED CT 6158116882 / Confirmed Muscle spasms of neck / SNOMED CT 3216984743 / Confirmed Insomnia / SNOMED CT 775644109 / Confirmed Medial epicondylitis / SNOMED CT 33604261 / Confirmed Anxiety / SNOMED CT 36773998 / Confirmed PTSD (post-traumatic stress disorder) / SNOMED CT 61695104 / Confirmed Hearing deficit / SNOMED CT 17850127 / Confirmed Lower back pain / SNOMED CT 837203485 / Confirmed History of neck pain / SNOMED CT 9625987571 / Confirmed Resolved: Cholelithiasis / SNOMED CT 386449297 2009 Resolved: Sleep apnea / SNOMED CT 382542542 Canceled: Well adult exam / SNOMED CT 886919103 Canceled: Sore throat / SNOMED CT 776693349 Canceled: Pain in the abdomen / SNOMED CT 10492065 Canceled: Fever / SNOMED CT 6481621847 Objective Vital Signs 08/04/2022 15:00 EST Peripheral [...] of the upper extremities Integumentary: Warm, Dry, [place]. Neurologic: Alert, Oriented. Psychiatric: Cooperative, Appropriate mood [...] an image (more content not included)... Normal [facility] Comment on above: Result Comment: Elec tronically Signed By: Leah Myrick PA-C\.br\Date and Time Signed: 08/04/22 15:14 EST\.br\Electronically Co-Signed By: Sen Burgess MD\.br\Date and Time Co-Signed: 08/08/22 12:31 EST Office/Clinic Note-Physician on 08-04-2022 Office/Clinic Note-Physician [id number]#1.00 CD:127 Normal [facility] Patient Correspondenceon Patient Correspondence [id number]#1.00 CD:127 Normal [facility] Patient History Officeon Patient History Office [id number]#1.00 CD:127 Normal [facility] Coding Summary.on 08-03-2022 Coding Summary. CD:[id number]:[id number] Gh0 bWw+PGhlYWQ+IC5AOKEsZ59 ykFParO8WV9oERC5TKHFMKQ RVKX1UCU2rsWY8SUduR2Fia iAv ObrjaPUuPS01WEa5WKT4cWr tIXqcgP2meHNkB9c2WvOnVH 71vC84UYsvUZZcXjZ2RxWju jsgbWFy Q1ewXbOxgCEvGel+PHRhYmx lIHdpZHRoPScxMDAlJyBzdH tyRI6iYf5lMKCoKEHcaCtvr HNlOiBj k2hwBYZvSPxiKP8olUyiA3C jnRY2RAAcs2f8Up26kVK+PH OgJQL3hUmbBOylb192JuEot 8hyCXW0 zFLkZAmdMGD2H17lr2M1GSP yREBiLRD9rJB7mE1qqRyhwm gdU9FrhZIkPtB1GND1tICsq R6ngFgh mszzaF6xZer+A36FFN7LNKN SVK1CAya4W3JfRnvqbGS+PC 67IJGoDW04pTJglKXwo0rfj Zz6JyTz AHDyBMR6mUbnXIgsa7EfVLY sZ60wdLVle0A7BUZqeSlxwI QyShJjxLB2tH5kBFcjxujov 2hvdzsn Sqgks4rufy21kD02N29pBZj bLBPlOSF5YMJgRJWgkNzbhf 8prY8tLc6+MWfzw7hvl9mcx Ue3RyDg HRSizaLmjOtsCHE6l4RbSo9 2Z3EvyVsqy2XwEtn5ps69lZ Ezk4N2mSN7ZDisSUAgrJ4sE WxlZnQ6 PUTxLdTewZ24pHDxDQzcLz8 naTmvqNvyRF5vZHQrvjhpXK YvdN0cSRUsaVOzrZjxAZ3vM TBpbjtm c557MxXfPUR7BXHwgQJjI3U vuX9fZpMvXPZdSYWbB1HhsI ZbDTswO063MSncCsY8YMFao yUgI7Ww DKIcxRpnCqL1c7G5Me7Vn7X uueayYQU7HAeeQVPnQsI2Tz LiDrI5F2NaJqp8NWDvuNyyV Q8dW5Kv WJGaksfklfytuSY5YZDtTOT wiN67nABtPGjiSv7nn9R3d6 19WXLiFNPwxQ23Ev8joRpjA TBwdCBU dL3suhrph0feiklcGfCwUQK xREc5FTo9RFYgnTaxLpRmOX B0TjR3GZU0eFWhqU2tqHrwb lomdC1r Oyc+L27xjK4hHLZ8IHS3qnx pCMGgkuMbNY28BK59W5NrJp wvdGFibGU+PGRpdiBzdHlsZ I8uQbVs x9fes8TiHEumV3ZgFEEjMOh aNvq4HNBzRRG1nWQ7oW6pSS BhSVfcl0F5vLH3W4IwhuLfm x9re7mj UUAjZKbiN18oeRTat4G4ETT xeBC1KCEarZdnCrVrvI84Us c+PGXwfJmbp6IjFlmjl9ylm 7btfSf2 DhPqAXWqiaWoyOfkWJB0s5R aRo12V18nESqpSJSpNUTqNM QySPIotXpqyp1qjM4uJa3+P GNvbCB3 zQB4jO9pASVvQsD9HGokX49 4YgVfvHYlJmwpt6dsk2lbtE o5FlXqMZAnurXklAjyVTT4k 6DdIf42 U60kUEpqHTEhORRpXNDuZIQ zfAcolk2vjZ3jCh7+PC9jb2 jsns15sQ73qFV+UXBnQCO0u WxlPSdw LAFncI2lPOyfNrY4TWYfUmO tjJ65bQOxGAdoOp9ziJewuS auTB7fAUUeypfxw881AeYnu 2xkIDEw yXQdQEfzHPW0F39yk6L7HPN xCATbVWU9uQD0gX6djPqybq ogbGVmdDsgdmVydGljYWwtY EeoO429 IHRvcDsnPlBhdGllbnQgTmF hTYr7W6BmJqr9PIDnqMkoOI 4qbYCnDAtgRk4wsRgwmQyiI N7iMGFm nnagb918RnSky7phZGKsfRM vWWsgAJT5X50lv9Z7HXUpZL DqIHK7tXT2zO6neVqisuuxv GVmdDsg rvOstIpfBZdkPMwqQ759EWO euSxmIzErasGpNSQhoCA0EV 94LP00sUTop0U7aRO0N9KmV GRpbmct gswyjFQ6RGRrWMJwtV75Gg5 irKkiCk1dAZNrBWM2GTKwqL IhV3FecD2vHlGdJWYlRGOpK 3RleHQt LXyeH576NJklRhI4UYZmovH aK5ByWSJgcSbeAyM7z2Q4Sy 5UI7A1WD51QX53sEBhd1Y2l OF5S0Dz CIIcijbimlhlqNI1AKTzBTO cpP28Ik9xeNpoBs7pUZEiTW P6VEQfgQQmH1JumE0eQtXcN DAwMDAw N9QrcYDmRFkaD328EJqwWjB 4XZLctbZpL4FjAGOltIueMr C0c7O5Jb2NOMy5FW08HM29j IArm3N3 gEO7K8ZuRGCcrkmnhlkbwBZ 3VKImHTYqvI48Bn4kqAzdZz 4hDGWfKIQ0XEWwbHLcY3Lgs P7vJeAg ZBKnICQhU2TerBExAGskZ61 2KVzvRhP7MAYncxDnW2OoFZ FdfMkqTxO1e7P5Kp5OBKVyW L06YHQ8 lGK5RE16ZM90T4RzQgwwnNY ibGU+PHRhYmxlIHdpZHRoPS tjZRZnZfDxrRptTN7iYz2nW GVyLWNv iLnajPThZnVpl8xzBPShNNm tTX3gjOtbW5SlsXM7SXZuk7 a9Fr64P21yR1GszKP+PGNvb NI0cKT0 fB0cLuBzJiI5MYwtA708OnV ijELqHfkmk6mjx6lpwYi0Le S5UEMevuCdlVfpVSO6t5DcJ n52P38u IHdpZHRoPSIxNSUiIHZhbGl wzg4szP1oNh3+FIKhxVZ3fR O2vY9eYxBqRjE8ZBdqU098M nRvcCIv Qdnom3jak0jdvRl6VrNxNIL ioyBehGrqRHE6o9ExPw56A2 EwoJvue3YaLok0im81gJFvf 7K5fYX7 J8TiXFTunkdqeFIexVhoJM2 qAXYmxktbKEHdeS1wGIOmI3 r2SzFqIwS4HZtgF3BwjlX9J DEwcHQg KClrLWG4U51fq4O9TDAjHMJ gNQQ0bDO4iQ4osRvvkumurS VmdDsgdmVydGljYWwtYWxpZ 246IHRv lPsoTVGpfQ0kXHZnxFVakXt hZY3gMYUahkklLhzAMyvdWH qXIgLAZU35XM92dMCii8M3e ZT9B9Ck DUJtkjgptefrlXI3ZZObYHC ecB63yZUgRQqmEq8ri3Q4w3 00WIJdOWUaeT58Xu8oqCjpX TBwdCBU bP6winleq3mtbibxXgJtMLR tCEn9KVg4OIRpoRvsGcLqHZ P3ZsS2NIR4bXEnrT0guQips lfmeT1w Oyc+NAWnJrPlCPo8ZPhghAM +QZWrTLU8gTccMDzkGCFavJ 4vMMItV6r9IcEpKhQ0FZemO 3BhZGRp dfvgGu04bN0zLfPyCwT1SLm dG0ZwsdA6HMKbwLGtAYgoCO D5E64uc0X6BYKoREFsGHH3e PS2oD7v bGlnbjogbGVmdDsgdmVydGl eRQswFUpqS597ZJStyAnrFl R7IHbvNCWxHE59YO19jWHzc 8E3qZN8 I7PxZXWozvezohvmmPD3ZWQ jVUUtyX74dXYxJFimXv0yu2 H2j482YKPgUYTdtZ96Tq8rh DogMTBw rVSEoM4zddwuz8pxuypuByI xAXXpTJz2UCp1EIGyfEstLy QoOBR8QuI5NXU0tEBmtG7xb Glnbjog dA2pTph+TWFsZTwvdGQ+PHR xFKS0vYjqEWegKIIltH0nMY JbP1e0KlXpCqD2YXvcT6TwN GRpbmct Ad01tB0pOwFdLhJ8KPmbW3C ytlL0CZTrpKWsMEzkIHJ1R4 2hm1L6VMGfRUSaDMF0cGG4f U6hrVzk bjogbGVmdDsgdmVydGljYWw gXUdsE736DPUsuKkwMd77vT VesRchljR9T2VoIfzaaDH+P B22CJOf JN50hAFesJIgc9ptiXd9IjD wFGRcGEK5nSzaLTwsy8CmPJ QuQ96csVAzt9T9KKUngOxwo HNlOyBl kNB6vT4kKAqhufyju2xfgsd wAiotx9kidl34fT93C35eSW dpZHRoPSIzMCUiIHZhbGlnb i0xeK5m Ii8+NLCxiUL8kCY4jP2mUaK pDvI5BGgtA522BeEbfBRgEp blw0ecf8dwgIp0ZwGyFYKfx mFsaWdu QPQ3y2JyFn95C05hVXcwLYR uSEXmQEYgXMNvpOvlpq9mhQ 9wIi8+LT6zj9hxoa32eU54e HI+PHRk ASW6oUcfFFhqTQJkpH3jTNn iQzM5HVBlMsXbeL26yFWvJA mrRn7mrZwohHrqGK7kDKJyw mobl227 MuTar8uaXTDkzSHxWZffBOP 2A72hc6T8WFRgPEBfWZX2hX L1qE3vzKbavynkyMYwuBnkl mVydGlj QNadATyjO571MCKeiPdyCnV kqILoG7tejnRLKH6iVjxahX Q+WRNsPIW3vWqvLLhpQSPba J9xZLBe Y1p8TwBpUoG2AStyY7NausW 1GWUjdRSkMLWgfTAQbV1iks mmz4yyvgkqRiPuYHOhZZc7I Ar7UDLp cZdvIqIwLAA7NnX5HYY3gWY naZ9umJgvxzulqT3kMui+Rk lOOjwvdGQ+TXFrLLM9kDjeQ SdwYWRk bA1vIVWhO8m6AbWdQjB8BQd jE6PvxiT7PWAzqKUaQDSmbK BIjK7hhpcnl4xuhehkEyAhW DAwMDt0 YMl2VJWtfNaqTdFhAYX9OvB 0FSO6bBJvhL7kwDapoxhnxI 9wOyc+TVJOOjwvdGQ+PHRkI JK9mVmz PHknTLFslH6iGOTyF0i6XyZ dTsG4ZPmnK5OztmX3ZQWiyP CyJWWdkFVJkK6tfuyaj5hsn jogIzAw UZLmRRy4BCi9DCWokGfyHdH pKLW5RpJ7TFT9dDTgwS6ryC gwjuzrwG8mKtg+RBO7DDF1H F60MB84 L3RsIbaonHVnwDA+PHRhYmx lIHdpZHRoPScxMDAlJyBzdH owXU7kJj7jCRLuLMCcuUxhr HNlOiBj b2xs (more content not included)... Normal [facility] XR Shoulder Complete Righton 07-29-2022 XR [...] Almaraz MD Transcribed by: MARY Technologist: JASON [facility] Consent for Treatmenton 07-19 Consent for Treatment [id number]#1.00C D:127 [facility] Physician Orderon 07-28-2022 Physician Order [id number]#1.00C D:127 [facility] Physician Orderon 07-26-2022 Physician Order [id number]#1.00 CD:127 [facility] Insurance Correspondence Off iceon 07-21-2022 Insurance Correspondence Office [id number]#2.00C D:127 [facility] Coding Summary.on 07-07-2022 Coding Summary. CD:[id number] Gh0 bWw+PGhlYWQ+TR2YZSZvO03 jqLXjtI5JC6qIYS1EITQSOI ZUMD5GCS9wvKH1ELysV4Eis iAv SwntpKAmMA01XJu0NIU5iGc iJXfqbK6jyPBmK3d8FfTpAD 61nI82OHuuGXGdQhB3PnTms jsgbWFy X1aeQhLtwFGhLbb+PHRhYmx lIHdpZHRoPScxMDAlJyBzdH ddIC2cHi4nGJEqFRPcaIqta HNlOiBj v8rpMJLzJHtvRT5ayWvjK2A tvHV3ESHfg2r2Mp99jME+PH UqORY1mRzxPVmyw872OeWka 2vgTXO4 pDPtUBjdRRH1G35vw7N4LHU aXWNxTGB6jQB4eY7ukXacbz faZ6XyvOSsPuC1QFF5wBNua Z2hoDab clilnR3lXmt+U47BCI1HDDQ GAC2HHua5Y6AxHeqdmQE+PC 09FSCgIG18gXLegDJav9nbs Ot1VuDy GJRxVVQ8cIxlKAlxq9JrCZJ eR30upLVht1E1DMIlbNlggB NtDnGiaEX9rL7kJBycxtups 2hvdzsn Doahc2xhvp41vY43Q45cILh xEAVyUKA1ENQoOJClgSfyis 5lnR8oBc9+YLcjp6brt6glr Yl6NyXc WTFnmuNxdAgvATE4w5CgSw3 3P6CneIaro6JuIdj3qo38mM Dtz6C1uVN3KBkoVENzzM0xF WxlZnQ6 LQUtJuLtbA66rQByYMbpQl8 yiWdflFhkCD7xAEUsjbcaZO LxwH7pNCInzVDbaVwgPS6eU TBpbjtm t287VePzXPY1EZOohUFqR6H vrV9iGtVnXVCmBNRyJ2FuuI YhYAczA053OBgzZnI8UBGty wQfQ3Fr ZWUqwApvFjN3y9W9Gc5Kg9B oonvfBBY3KBqcBUWjNxKoOj BiZoL0B4HtIia9UVTfyTxeI K7eQ8Ev FKLqsfnszrfkvPQ3NXVrJFU vqR58oPNrFSesEb8ct8L7c5 76XDZbTIPafZ37Mb5wlVvyB TBwdCBU dG0mebger3ljeyniPrVsLKH nBVu7ZZx3KJXsiTaoNhOhXI V9MpB2RDM7fJNugZ3koQszk fjifW8b Oyc+N66ehK3dJGI7IHW4jfl gMHHewvFoSK72LA43H0KzEy wvdGFibGU+PGRpdiBzdHlsZ I0nPtGk f0kfh1HaYPxdQ3AyFHAxCQi tEhw9CMKaEXT6jNS6wX9lSW LlYKjng0Y4fDU4Q2QwpfWhe q4xp8kv BNNfPResU18qzZUsz8W5WIE lkIE5YAVcwDenWfMoaK58Ha c+EQWdoNxac8RgJbtml9eqz 6vucNr5 AhFuQIKukyJecEsiYUU4e6T uEn96S97uXBpjTCKiELSjJV QzJLJcuEwxyl1gzV6eOq8+P GNvbCB3 aCC7hZ7oZMVnXyK3UDixU53 3QkZeyADeCdadw3cuy7vauW d2LwPvAKAquoTixKxeFVY3i 9IyFt20 W50bQXbfQIYgZMTaGGMjFWL ntIycxk7exQ8yTw8+PC9jb2 ajlm70dL68iTX+ELKsMMS6u WxlPSdw PTIloC0kXMwvRfL8NCSeUzD xtU16hLNnNDjiWw5jgZtvnJ wnQA2zINUlklmsa536DkSre 2xkIDEw dWVbGJklZBY1D74qx8R2HKG iBAXfXJH6kKT0rJ8ehHehpp ogbGVmdDsgdmVydGljYWwtY SxcE637 IHRvcDsnPlBhdGllbnQgTmF gZFy8T1YqUsa1IIQreTvbQM 1lkELdDYhdGn7onWoegXzgR K6wDDEr zukax615IcBpm8qlNFQofRB eGByfZGW4Z70hu1H3VEKvSC WfWKO9iIX8tD1dbLoucgkey GVmdDsg wdPprTctWNbdWVrjS915FKH gcQcyQjXbjoFhTZGguUB0LT 05YM42cCMes0B7eTL8N8BcF GRpbmct cfltnSM3FVLoNBMenF22Tg0 arXakSz5sOYMfREA2VMAwqL ZtS4KjuX4bGqQxFCArIKZpU 3RleHQt JVfkW849FNqkIvY3ZZCjgxL xM5BaKUCuuOwaYxD2e9Z6Uu 4HV4Y2XH69VH39hRMjr0H5c VX8H8Uz TNIpjlennkomuBW7PHEkEAG thP51Xi0rjWelAg0dBKFlAV J2QROdpMHjY2GhzC0eXxGcT DAwMDAw F5KyiTXkNYfwK848BFihOoY 8ARGiqxLjD4CyYVUbrKcwNw W8k8L3Dq5RIMb5WT84SP29y EFow5M0 hJJ6F0EoYFNqqsykdahkrCE 5FNMqACHghN32Sj8tsCfwOa 2bUMRxCQT3NLPqpDTyG7Soq N5jSnVu HVWpIEVzB6WnxZHzOPwhA22 0CCanNwQ3BJLnmnRtA0IwGI OtrKdsZjZ4s1W4Zi8CAAFoP D84BEB7 eYC4LH27QZ62M5RpOxzvyIQ ibGU+PHRhYmxlIHdpZHRoPS mtIWLpHsRllFdtGU1jAb0vH GVyLWNv fVsssJBiDaMfn1jrJHXtGPm zBJ8rzVwuM7SxbIA6ZJFsu8 l4Dv77S08wX1NdoMQ+PGNvb BY3kND4 zH7tGfJuWwG7YWrwP834CfZ olJUbUomlv8lgu5tmhQn2Bk W5AEZxepZhyHqiQXK6j7EyW t22L75o IHdpZHRoPSIxNSUiIHZhbGl dma0rlX9bYn8+FGMtdAF1iK M8eQ1pQnBgVxD8IKbbE195R nRvcCIv Qdndr5zmv0cagVv3HeOzEHV qznVgvTjvBZT4u4ErFm88L0 IujOwjp5EsQlf7uv68kZTcr 5C0aVN4 K1SpCAClapnxaVOjmNzoHC1 tDRYgjmcwITIqaV2hCPIfB0 n1EiMhZzV9OEbhI5DtibA8T DEwcHQg IMdaUJZ8C48rv8P5XJUoFFT pXRP0dUU5yQ9vrXvqiarznX VmdDsgdmVydGljYWwtYWxpZ 246IHRv mTltHQQekC6jTYWbcHXwgSe jIV6vNAGzfjhhTkvKTzplLX cFPaZOJE63NN91oDCxe2Z0x WV5E4Sg TJSfxwnpxmmrwSD5XPZmPFY xsQ85pTZdLBhrGw0qs5W3m4 15LQOxNXYovW06Xk5iuZtaP TBwdCBU qU5vljhaq3wewfqkRkYhZCH xGTb9YUx3HIKwsEroNsWbPJ D4JcW2XUB7yBTdpV3moSioo ikswI2f Oyc+JMTmLyCnOKl9ECpxvLC +LYTaEXQ6dGtdVWeiKSFenP 3gPEMtA7s7ToKhOjD9EWdjV 3BhZGRp vpabRg81tF6kSwUsAkW2PQk cE2FtzoH2YRCsvPFpGAcdYX N7P64dc6G4OGJkFDJqNFC4j ME0lX4x bGlnbjogbGVmdDsgdmVydGl qGRqgZEjvK686TVHecIquFs A4JJlkWRQmAD47FO93fZDva 0T2oID3 E8GdEWPzeytkoxcgxWB3JWX dUNJgiM85vGRuYUacTe8uo1 F8x681EFNbOQEyzJ68Zc9ui DogMTBw iLAUxI6iphzfw6opuoyoAvM kUYBqPVk4AHq4ZFVllZbjNq FgKSD4AyM2IAY0iBMzrW8kj Glnbjog zR6zWra+TWFsZTwvdGQ+PHR rNXQ1fUwqNHtoLMVftA6bYK NgX0l4DiJsSnR9EOxlE1QaP GRpbmct Og24lF8dEvThAvT5OGmiU6G eklQ5JCVwhCToMGykNCY9E9 1fi4Z6HBNkTHErKTY9zVW8x T0suLuj bjogbGVmdDsgdmVydGljYWw rNHwzE931BJDdkSprKrHqqU 4gTWFuYWdlbWVudDwvdGQ+P K86sy18 A7ZhUesoIaq0PYSyZKR7zRK 4tT1xFYDhIKbea4I7pQV9C8 VtruGsfa7st4rxLSLlMKyxA 29sbGFw n9B7BCIptBA3CDZtlCwkVdW vrP74Gca+CJXkoZuna7OvQc bwr3str3enpZq2NzAoYAQpj mFsaWdu ITW2k9EnPk00Y11rNXxvTUI vBGMtUIKgYNUcnRwgqe8mfC 9wIi8+LPGtyTQ2lFI4oV8iQ jAlIiB2 XIljU431ZgXheIAgWjnpp3s yk6ppsWi7RmPqTULqvbHhsX sqINQ9w5GbUi79L9WlaWzdb 1PjNms4 sv94gOYmu7Q1oEV7L0TnBMB objtcjTLrnBkxNB9bAVDjki jmNTDemT3xFJDhI4t1XeWnY vR4RTrl O0QcioF1AZRmtFEnJKTrmLD HuK2basatf1ylgiauTmQmYP WpSSo6LLu0AEXfpBopDwFkL OE7AbE8 MYM5nFXshD0pqLqjzaubrG3 wOyc+CHz1g3eclWMrUY9htY A4DU88VW03rRMsc3Q3fIG5Y 3BhZGRp wyjbyffuzPQ5AGHgZELhwB3 7Id1zrMmyYb9uDUQgPTZ9FC WggMRoC5VocN1wBiOvCQJtZ BZlB7Ap jCDvMTkyG507GGyoMvB7VMG pwaCyQ2RbSZWpxXteQuO2d4 H7Hp4ZXC98CG70CH41qOUbe 9I8nVG6 D1JaGNJavisxrjdawSJ1YHK aAVKwgR14Hn3cyKubEh6oHV VaFYO1BUPygXZkM5QefT6iU iAjMDAw HIQcY4TwfWCgJCzhP856JMp sCgD9XSFsvlLfM0TxZVJuzZ kfSaY9x2N8Yo1OTg44AZ60O X37aLXy j1Y0rBA1E4CjIPHyixqwnwo yyFU4LNIjIZEtcV05Wv9oaG dzWx1sXCMkSBQ6QLCckAXuH 2DkoM8u RoZkXEOoFYMcA2XxlKBsKWc zZ754TGegRsA6LLFrexNzD5 MgRTLdyCzoLkU7x8V2Rb4XS Xllcjo8 G3TmHeakgPV+EJ10WRWmSQ4 5gLQfbVJqr5yujWs1UmBdTN ZyEVK5yCncSZfru2VqTGSyN 29sbGFw c2U6 (more content not included)... Normal [facility] Consent for Treatmenton 06-18 Consent for Treatment [id number]#1.00 CD:127 Normal [facility] Consultation Noteon 07-04-19 Consultation Note Patient: CHRISTIANO ZHENG Age: 26 [...] in the morning it is better. Previous career center advisor did not help. Previous physical therapy did not help. Anti-inflammatory medications do not help. Health Status Allergies: Allergic Reactions (Selected) Moderate Dilaudid- Hives. Severity Not Documented Morphine- Anaphylaxis. OxyCODONE- Nausea., Allergies (3) Active Reaction Dilaudid Hives morphine anaphylaxis oxyCODONE Nausea Current medications: (Selected) Prescriptions Prescribed Lexapro 20 mg Tab: 20 mg = 1 tab(s), Oral, Daily, # 30 tab(s), Refills(s) 1, [id number], cm, 04/28/22 15:31:00 EST, Height/Length Dosing, 79.7, kg, 04/28/22 15:31:00 EST, Weight Dosing Vistaril 25 mg Cap: 25 mg = 1 cap(s), Oral, TID, PRN for anxiety, # 40 cap(s), Refills(s) 2, [id number] 178, cm, 04/28/22 15:31:00 EST, Height/Length Dosing, 79.7, kg, 04/28/22 15:31:00 EST, Weight Dosing cyclobenzaprine 10 mg Tab: 10 mg = 1 tab(s), Oral, TID, PRN for spasm, # 30 tab(s), Refills(s) 0, [id number] 178, cm, 03/28/22 14:15:00 EDT, Height/Length Dosing, 83.1, kg, 03/28/22 14:15:00 EDT, Weight Dosing phenylephrine 0.25% rectal gel: 1 evelyn, Topical, Daily for itching, 54 gram, Refill(s) 0, [facility]/pharmacy #[id number], 180, cm, 06/06/22 15:30:00 EST, Height/Length Dosing, 77, kg, 06/06/22 15:30:00 EST, Weight Dosing Documented Medications Documented acetaminophen: 1,000 mg, Oral, TID, PRN as needed for pain, Refills(s) 0 Problem list: All Problems Former smoker / SNOMED CT 56847835 / Confirmed BMI 23.0-23.9, adult / SNOMED CT 6301801768 / Confirmed Family history unknown / SNOMED CT 6180736305 / Confirmed Screening for cardiovascular condition / SNOMED CT 795065198 / Confirmed Enlarged tonsils / SNOMED CT 554114516 / Confirmed Difficulty swallowing / SNOMED CT 16851771 / Confirmed Constipation / SNOMED CT 60488267 / Confirmed after GB removed Hemolytic anemia / SNOMED CT 731101376 / Confirmed Non-smoker / SNOMED CT 04167377 / Confirmed Stomal ulcer / SNOMED CT 8249976870 / Confirmed Splenomegaly / SNOMED CT 48099002 / Confirmed Hospital discharge follow-up / SNOMED CT 7856655557 / Confirmed Hereditary spherocytosis / SNOMED CT 03498428 / Confirmed Testicle lump / SNOMED CT 263303630 / Confirmed Cervical radiculopathy / SNOMED CT 999017371 / Confirmed Cervical spondylosis / SNOMED CT 5828500469 / Confirmed Muscle spasms of neck / SNOMED CT 2820686540 / Confirmed Insomnia / SNOMED CT 685869163 / Confirmed Medial epicondylitis / SNOMED CT 28727404 / Confirmed Anxiety / SNOMED CT 94445069 / Confirmed PTSD (post-traumatic stress disorder) / SNOMED CT 77151629 / Confirmed Hearing deficit / SNOMED CT 48893645 / Confirmed Lower back pain / SNOMED CT 152491993 / Confirmed History of neck pain / SNOMED CT 7962865209 / Confirmed Resolved: Cholelithiasis / SNOMED CT 823951696 2009 Resolved: Sleep apnea / SNOMED CT 392428596 Canceled: Well adult exam / SNOMED CT 520145095 Canceled: Sore throat / SNOMED CT 026646368 Canceled: Pain in the abdomen / SNOMED CT 07696105 Canceled: Fever / SNOMED CT 2748546132 Objective Vital Signs 07/04/2022 15:31 EST Peripheral [...] Difficulty with overhead activity Integumentary: Warm, Dry, [place]. Injection site well-healed Neurologic: Alert, Oriented. Psychiatric: Cooperative, Appropri (more content not included)... Normal [facility] Comment on above: Result Comment: Elec tronically Signed By: Leah Myrick PA-C\.br\Date and Time Signed: 07/04/22 15:50 EST\.br\Electronically Co-Signed By: Sen Burgess MD\.br\Date and Time Co-Signed: 07/11/22 11:12 EST Legal Correspondence Officeo n 07-04-2022 Legal Correspondence Office [id number]#1.00 CD:127 Normal [facility] Office/Clinic Note-Physician on 07-04-2022 Office/Clinic Note-Physician [id number]#1.00 CD:127 Normal [facility] Patient Correspondenceon Patient Correspondence [id number]#1.00 CD:127 Normal [facility] Patient Correspondence [id number]#1.00 CD:127 Normal [facility] Patient Correspondence [id number]#1.00 CD:127 Normal [facility] Patient History Officeon Patient History Office [id number]#1.00 CD:127 Normal [facility] Coding Summary.on 06-20-2022 Coding Summary. CD:[id number] Gh0 bWw+PGhlYWQ+LZ5UXXWkJ34 ykYAdfG9DC6bBHL1PEXMEQJ TVXL9ZKJ8vjSC9HAcmW4Bfw iAv DscvlIVwZP01YOd9MKE3dIh oBGoidJ0ebEVoT2h4NqQeAO 97kY80CNhfOYPwGgG1DbCjc jsgbWFy I4bgWaJcwCZdJvq+PHRhYmx lIHdpZHRoPScxMDAlJyBzdH ioVG3uFa6iVQQjMEEteSiiy HNlOiBj q8lwRFXmHJgoCZ2dxFtbF0I rxEG3SKKkg0o4Jb22eYH+PH SaEKJ7gEypKQfsd679KhJdl 2rbMUN0 pMUwZDtlWAR0C38uc2N3KNC yNEAuQKC2gLE8jR3kbVjcer vqT8EtoNHfWkU8CZI0iMXpc O9xjNzq docccN5gFqg+U77OGY5KEGJ JNV0NSbr4R2BvGirodST+PC 05WMNiOO69rSNroPSrj6ffy Lc0QxKi WLIqARI1rXnjXQdyc6BiFAL yV19nmZAxs2H8MBOnhUiuaJ BwAzWenHK4aD5vBOixlwocf 2hvdzsn Ttnve3sohn03rL14K63sYDo dIIJaKFG3UCXwJVFfvXywcz 0wsQ0zWf3+CBnca9srx0tmn Sd2SpKm RIRcuhHicPfgEAU2k9DvMp0 3I7NxgYjow3WaPlz7nd62jK Msh5V6wJB0XDjvSCKdcL2rH WxlZnQ6 URVfNuSzmN94mTSxNJhyLr8 mdKnfwDwlWU6iVQBrgqejEG SlgR4dEDReiPDynBhhGL1rJ TBpbjtm f253WeVhLTT0EOPqpCSfF1I bqY1fJoYyXAAgAGIgT2VttB JiCFglR011HIsjUmU9DPMuz eYfM4Qv PCChqNtyOjK7a9K5Vy7Cj7U lfvknVCN8OJydHEFyIvJlGg QqGmK4Y3IcNeh8TRNqkWbjI S8gY2Gy JEEbutripjvpfAX4SKWyHHW kjE55cVVgXMwzCf1im1D4i1 14HKLuIFCkcD82Gs0dqAcrN TBwdCBU yD5ujjxnf4uwargyHzVbEPD sVTn0DZz5NHDtyRxhRsRcOG W7LeF9VKK1eUPmnU9qwQxlx chmsH1r Oyc+R43vvQ5uVMK9UIZ9dkv oLWOhykZtCW32LL93J5LtXk wvdGFibGU+PGRpdiBzdHlsZ O6vKkNu m5hnb8ZkJCwkC6WsEQVpPMe sLwn7JPNzPRZ4xHQ6yF0pBD FlTVhoz4G3yTV7R0BqqdBwh f9qk0rp URWgESssS99qsVVrm3M6LCK rdVN9FKAriDmrZdCylD83Ua c+UFKqwYgjq8QfWqolu2cfn 7wuuYp3 QbEsQQRshgDgvMwwHCZ6n9S vZo42G16eVVnhMPMoFYEhTJ WdJKLmaOjgcw4lqV0hOl1+P GNvbCB3 yOX4fW0yRNAwTzC0KPjyH63 2GrKocBNcQydgc3bhy9bxnH w2WvOpIHNpdwHhdVbgDGN7y 0FvHj86 A13nAQlnXQHnRDUcWLPbWVF dcEweqh4yaJ1vQm1+PC9jb2 jjhj89zV31eXF+LJFkSMD0t WxlPSdw MJFjpD8gYIbrEdL8ATJuWuI lkS99gASxZGltUx2ohEuncN zwUC5rWNWeaxnfn287NkKmg 2xkIDEw iKMaUXbxNRN5V27dn3N7WVF pTKRbUSW9rDM2vY8aoJwgwb ogbGVmdDsgdmVydGljYWwtY CwjE224 IHRvcDsnPlBhdGllbnQgTmF eUIh1D5WeNrc5NRLxnRbcFY 8yoNBzQSchNm9xwApamItlM N0iZZPx qwcux795CgBbr5vbHUBudYS uDResQAA6H34kh2D1HCQcHM NcAUM1oJE0bC6azRewkmunk GVmdDsg kqMgxZkoKLjwZQnaK176FIS igUfoEsPlzeBqOVZtjIV4JH 34BH26wPAdn0I4uYP5N9GrD GRpbmct elhpaOQ6INAdXULecH93Gv9 deZbfVp9dBJGkXZZ4DMUruO YcC0ZwjO3vSpMrZOOxNXJtF 3RleHQt HXbsE664QIxlEfN2ODKermK qR9AlOVAvmSxsKtW7r3T6Ja 7LP9C5AX36KK21dDZrb1H3c ZN3S5Pe XHFtavhttmyohDC4MPJeIYC acM06La8myDlwOi5cBDFeZO U9GUOerBEkM0GqwB4iBtVuB DAwMDAw A3YguXCuEIkdI723ZHydBwJ 2VUDgbzGtR9MbIXPcfGaaWz N8c6T3Uv8OXFi0NG32DQ49z MRnu4B6 bZC5D7NeUOJututqnounkEG 9IUQzLUZxmU57Cg7wkDgfUq 4aCEQgJXR2FTRpsEHdZ8Jxo Z5yMiYp RKScKYDeZ0KbuFYzUKrzB30 2MXgvNrG7ZEKbmuEiP4PdWI CywWviHbA8c3R7El0LXKLgU H83VEU7 eVV7LH81SE87L0KlUnnatCI ibGU+PHRhYmxlIHdpZHRoPS hqZHTlHzIwaFzxDG8jMb2pM GVyLWNv aVxnqRKsIuWcq3vaOFHwRQt bED3idOavF6IwdSX1ARIwh4 k9Nu94H73uO0PjjOS+PGNvb YQ7pBF2 aP3eVoFjTrA4GYvzB550RsF rcYCpVecaq2lbb5rikHw9Ds X2YTXcicXzeMysKZO3x6UqC r79O85y IHdpZHRoPSIxNSUiIHZhbGl zks1xtN3tYi6+TYGxiWZ9wY R1xP6vFfPiMmU6MVpqE305S nRvcCIv Sklmg9anx5zzlIj4VpPfYNX zvjLydAxaNOU4v8ZmAy83Z9 ZzmUbpk6HxJxz5qt80nPMnp 3P1kKZ4 Q5OuKDGelctyzLVxzDpsLN1 cGXJskrdjAMNjmP2hZDTmH8 g8GeJgWtM4WCikP3FeweB3M DEwcHQg TRirUPE5V26pc8D6SFTmEKW yXUR3hQX9mF4ctYmlbpgooP VmdDsgdmVydGljYWwtYWxpZ 246IHRv iGclCDVzhF4zWBUpuWRigWl wUB3ePOCuikvdHfvVWursMY eEHgJLFO11PW38bOQzx6F4y NU9P7Fx OPLjwybhvlrxvRD6KTApPYW lmK99tNUcJUegHk2gn4M1w3 57ALGtYCWtjA69Dx3ahFomI TBwdCBU cS9ykwtdj2mdmuvbGpJrMEA yNRx2WCa3VWWbrKsqVpVnNG Z5QzW8LYX2qIAhkG0lwQesr yofbD6a Oyc+CVInLqBfNFi8OIvrjKF +LFDmHJP4nOyeQGoqUSNmbI 5gXOWjW3m3XnNwKgQ5SGjoU 3BhZGRp rtfdRj43zI4rKeGqLrU1QAh pF3OuvsG2XMIojIAuOLayWY K3U46kd8T8BIMeIIKvJXN4o XK1wN6r bGlnbjogbGVmdDsgdmVydGl dTLmaPYsmE556SMQdaAenDj R7FZbnBHLjRW93KK13nIFac 6C7lIB0 L9SxUVMactqtkrndqWU5FCR pJWAvnH03ySEnZLjeHr8hq1 U6f666TKKrAPOylL74Pa9zn DogMTBw oXNMkN2lxqwno1mjxzadJkK yVLInEDl2AGv6RODveZibNb TyVQA4AeW3TSJ9eAUcdN9cl Glnbjog oM3mHel+TWFsZTwvdGQ+PHR hARS8fLezWEgbOWUxyY4aSU PpL2d7JmLiAfB7AOqzR9OmE GRpbmct Cx63uG2eUvTcRuP4IHvkY3A iyyO9LLSkoMInABfpYIM2U1 9sd0H7VSMuNYFgBPU2gUZ1d A3vuCyl bjogbGVmdDsgdmVydGljYWw fMOqwV399FALkkZaaIrXnuV 4gTWFuYWdlbWVudDwvdGQ+P E79qh19 H6OzAoobYfg8THSiILI5fPE 5jJ4zXSLaHGiwo2F8wND6B5 OitpThfx2lx7hlKSElUJpaM 29sbGFw m6F2MHUcfJK6UVDvaJbnGeE bgP55Idj+EMHjuHtqg5XcZm tra1mel2joqTj1AdKvFCCvj mFsaWdu JQX2t7NeOp55D96hKDfoVAD qMKIiCSPcIKBhaQfixm5uuI 9wIi8+SZKeeYO6aHA4kM1qI jAlIiB2 BJxgW852GqSmjSGhMvvsm5q pw1kqyOs9QkBqWGThnfIvhH xyWGZ5w8JkBo49I2KagZyyp 8QnPbm6 aq45vEMqp9E2jLW0M1UoNDU iksegfYDsqIuqWX4uWLHvya bwGSHukO2jOUKfF3d0DgVqA qU1GTzt S3XvktZ0IQYsdCHwICYvkWL OkA4fynkta1xqapjuBgYvTT BvXWa4BWx8PQPrtTmrEfZbM SY0JfO9 ZQI6dHQsbP7tjCqfrtnieT7 wOyc+KFq3j8pnbUHdCD9kjG V8LR60YN72fSGga3Z5lRN7V 3BhZGRp wvlukmtljYE2BZObIHRuhQ8 7Xv6gbYvfVl6tKGMjSEC3IV FwuWBuA4MvcB2kChIpDQWfD DDaU0Ew gKWuIPxoX328YHycFwL4GJH hfpJzO5XiEVAxvQdnGqJ1i6 G1Ia7RQG98AO54DW71wLWip 3Y3uNN6 U7HxNVZrzmwiqaduxUZ2BBC lPHDtoN52Jf9hpJzcMk3eJT VjHXZ1BEPjnGThN1KhsS7gC iAjMDAw DEQsS0NuwIKrEKfgT835RFo vQzE6JEQzkrQxD6ZeQRPaeX yoKgK6m4L8Nk0BAe66GX24D H20zUGo r3J1yRR0W1BcVIKktsadtrt toHJ6QAZcRGTzuP29Kt1tpC tgVc4gRYEmRVJ0XDXwuOBlU 6InwN3w DpQpACHpUSBkX6AzzLLqAVp bU184WUqdQoQ1KNPhwyKsA7 VbDSDgxWtkHoI3i5J2Aj8RZ Xllcjo8 R2AuTciwjFD+BZ43RSEsOM4 9fIPagFEib3grsCg6AyKbOP RuSQI9kAbaNNpgx4YyBHKeY 29sbGFw c2U6 (more content not included)... Normal [facility] Operative Reporton 3 Operative Report Patient: CHRISTIANO ZHENG Age: 26 years Sex: Male : 1995 Associated Diagnoses: None Author: Jenifer BOGGS, Sen Dodson Procedure Procedure: Cervical Epidural Steroid Injection with [...] Epidural injection procedure Physical Exam: vital signs. [facility] Comment on above: Result Comment: Elec tronically Signed By: Jenifer BOGGS, Sen Dodson\.br\Date and Time Signed: 06/20/22 13:29 EST Consultation Noteon 06-14-20 22 Consultation Note [id number]#1.00C D:127 [facility] Consent for Procedure/Surger yon 06-13-2022 Consent for Procedure/Surgery [id number]#1.00 CD:127 [facility] Consent for Treatmenton 05-19 Consent for Treatment [id number]#1.00C D:127 [facility] Discharge Instructionson Discharge Instructions [id number]#1.00 CD:127 [facility] IntraOperative Documentson 1 08-14-2021 IntraOperative Documents [id number]#1.00 CD:127 Normal [facility] Main OR Intraoperative Recor don 06-13-2022 Main OR Intraoperative Record IntraOp Document Type FTPM Summary Primary Physician: Sen Burgess MD Finalized Date/Time: 06/13/22 15:47:06 Pt. Name: CHRISTIANO ZHENG Flavio Hernandez./Sex: 1995 Male Med Rec #: [id number] Physician: Sen Burgess MD Financial #: [id number] Pt. Type: P Room/Bed: / Admit/Disch: 06/13/22 14:24:38 - Institution: Case Times FTPM Entry 1 Patient Times In Room 06/13/22 14:49:00 Out Room 06/13/22 14:56:00 Procedure Times Start 06/13/22 14:52:00 Stop 06/13/22 14:55:00 Anesthesia Times Last Modified By: Suzan Louie RN 06/13/22 15:46:53 Case Attendance FTPM Entry 1 Entry 2 Entry 3 Case Attendee Jenifer BOGGS, Sen Sanderson RN, Suzan Villa RN Role Performed Surgeon - Primary Scrub - Primary Water Quality Analyst - Primary Time In 06/13/22 14:49:00 06/13/22 14:49:00 06/13/22 14:49:00 Time Out 06/13/22 14:56:00 06/13/22 14:56:00 06/13/22 14:56:00 Procedure CERVICAL EPIDURAL CERVICAL EPIDURAL CERVICAL EPIDURAL STEROID INJECTION(.) STEROID INJECTION(.) STEROID INJECTION(.) Comments Ava-student Last Modified By: Suzan Louie RN 06/13/22 Suzan Louie RN 06/13/22 Suzan Louie RN 06/13/22 15:46:55 15:46:55 15:46:55 Entry 4 Case Attendee Gwyn Caba Role Performed Pharmacy Salesperson Time In 06/13/22 14:49:00 Time Out 06/13/22 [...] Suzan Louie RN, Myers Given Participants RN, Jenifer Oropeza MD, Sen Dodson, Gwyn Caba, Gwyn [...] and tissue Entry 1 Skin Integrity Intact, [place], Warm, and Skin Abnormality No Dry Outcomes [...] The haily (more content not included)... Normal [facility] Main OR Preoperative Recordo n 06-13-2022 Main OR Preoperative Record Holding Area Document Type FTPM Summary Primary Physician: Sen Burgess MD Finalized Date/Time: 06/13/22 14:34:18 Pt. Name: CHRISTIANO ZHENG Flavio Hernandez./Sex: 1995 Male Med Rec #: [id number] Physician: Sen Burgess MD Financial #: [id number] Pt. Type: P Room/Bed: / Admit/Disch: 06/13/22 [...] By: Patricia Nguyễn RN 06/13/22 14:34 Normal [facility] Coding Summary.on 06-07-2022 Coding Summary. CD:[id number] Gh0 bWw+PGhlYWQ+PZ6NQQAyU89 xuFZgkV6KK4hHHL0SFOULJG RMNC2KXO6tmBS5JKnhM8Lwn iAv OgehiABgOV45SGg6JFT4jYa eSNbzrC7vuVAfD2b8EaCmME 48eN86LJjfVQDuUlP8NvOay jsgbWFy Q1ejUpDovHJxBxq+PHRhYmx lIHdpZHRoPScxMDAlJyBzdH aeXO1dOx2tMCVwIQDwkHpzp HNlOiBj r6wqPPVkCBqhNR9ahGtdF2D rkIF0YQRmi7k1Xa03fYD+PH XbZAL3bKbsFVjkh652PiEjm 6afAWA6 jUNqGPzoCQQ0B97le1W0QOX nQOYwYIH7iYV2uL5ybXessq iuQ2TnxCEnRpW7PLL0iRFhj P6akTkz zxeajH2oKzs+L02INB6GFXJ WKR0XFeg3M3RtQqaaeOQ+PC 69PZSjPX99bLSdwKSbm0oxt Ic2OeRg YHNtVEX5lHxuNIdtr6LrKIJ gA23ltDPqr8Z4PBEcwVbkuV YfFqPrnRI3hM2hTTtbcwick 2hvdzsn Rcazn2jhza14xZ51S50oNEb sFNJeSOW0CQFwNOFmrGpuob 4jqM6fCk8+HEvch4efo1ntk Oq4YzRm YCVvmgJcgFrkHCL2k7ZoMd4 7T3DdkLbqq8NtLec0ej28rV Car7Q9qHU5BFefRLTviN3zH WxlZnQ6 TVLgTuDouQ61jOFaLRsbOs6 jiUapuMjlNM6bZECmaldkTL QrjR8kZZJtxBZdsNaqGV7dZ TBpbjtm m587FeAoWWJ8CRNmxFImW5U gxY1tAyVoUERgEISbK5WavR GdONygX912DQwlRnZ1QFYbu rPcA5Jb RPIvsDilPwS0v7S2Cy7Ld2V bcyokVFP1KTboEHQtZwMpAw JeHdN4U7DcJee7QSXvlEytE E2yE4Rb GHTxzarruqwjrPV0IUTbIWX rfI05kBGeRUasKj7et6W2l3 13QUVtXWEkuW51Mq0owZmrX TBwdCBU sG7rypzbu9kqozbrQuBmOCB pERm0QTl7KNOiyPkpCjEvZM Y4MeW6ASM7oRRwrF2ldDnut uuwoF8d Oyc+R50hxQ5fNEM8DLO9tut cTMVginUzKA15MY65Z2TwXk wvdGFibGU+PGRpdiBzdHlsZ I8pKrIf x0mxh6SaPVdiM4NzKJMyKNv qXoe8ESRdSWX5kYV1dN2jRK MkOSzgo0D4sLM7Y3BnwpOnb k5km5ih SQSkUCixG80jnUDrs0Q0STO efYI9SZCrfGbfWdQnpY37Ss c+CPVkdTgvv4KzZuavp8acw 0wpvPt8 PkFcJDToyfAeyXfkHJT0m6T jEd18U44bDEtxRNAxDLCgXM ReRHYxwAedos0amK2lMk4+P GNvbCB3 aKP8cA7tZADyTrR8JFerV98 0OsAjxOFjHfjqd8zfy4shsO e4MpYyPCZkqkUqbLouIQB4l 1GgOt50 C23cQNpcCNTnRHMiZRDnNBN kcDpasa5qyK5xVl3+PC9jb2 yqlg15kG36wGP+PFRtWPD8q WxlPSdw PNDyiM7vXZmlSmJ2BHXqMyK ocM17kMLbSMndHo0pcQctuX pbKO7gEOZlrsecg741AsPya 2xkIDEw gAWpKWdmAPH1X24qb1I9UXE mQOKkELN7vET1jA7sdKajlt ogbGVmdDsgdmVydGljYWwtY MpqR130 IHRvcDsnPlBhdGllbnQgTmF tYVc7L9BwIdv9RCDezXquFC 1tuPWmTZgeCi3kfPjvcQypI A7cXBYi kmozq960BjMgx8abNUUsxKR qXRsnIND8H11og6Y7ZXUoEM YsYSX1eTZ7lN0dxQefannln GVmdDsg mmNqlXnhLTcgGKpeM093UVA srLqnHsJnxyHbESCknMQ1KF 54CD89rNNoh0T5nJT3E8EfP GRpbmct jbiivLJ5QNGoTQTmqY93Xa8 omKbsSs2qHVOlYPX2ZCTlkG PyZ7ArvH7oBxQtCCNhEDTzK 3RleHQt TFpsX546WShfZlH5GZUirxY iV7JpJXLhgPmyBiI0j2V7Ka 7GA0D5SW07BA76nICcv5A0b HR0A3Bq WWGlwpgqpesesQH6JCPnRXS bcG66Fa9kqRscZr7dIOJcOE G7JULalOMaF6RmuC0uRsXcU DAwMDAw I6OyzJIwYRdjG606GExkBoN 6RWTgobVaG4IcGXMqlElmCo L1k6O2Pt0PSSi5ZQ36NT69m WIkw0U0 mHG5B6MxMZSouhzaszbubEM 5DZHrEAKwhE75Xl1yxEncDo 3nPUVgPCM9ZEFsjXQaW8Xpt G6pMuWz CGJzDDXoL0TdlTRvWBlcV69 6RPchWtD9UIRdzpDiX5AnSU GkeAahPeW5b2S5Qi8CIXBgP J44QCF6 nGD0LJ56SZ33X1TzEclvuPU ibGU+PHRhYmxlIHdpZHRoPS lrYPJsWuZgvUdzAW7pCm6sX GVyLWNv yRlxxNIpYjPgg1lcGXMyMDu xCL6qfSbsM0ZkiGS5KUKiy9 r3Du12P27uY6XxaYM+PGNvb GG1hEP5 aA3gOrJsLeU4LNibC017NrP hpTAjOkyjl1mjw5skpTi7Bp Y7LLXffeLadZrwLAS0u5NwP z21X31d IHdpZHRoPSIxNSUiIHZhbGl ljf5clS3zUm7+GUQqxEK4aC U6fL3zWyJfBxX6KLwlQ855D nRvcCIv Bruby7hga2pozJa6VlQmTAW bbnXynXlcLWY5m4LfLp17S3 SycXnsq8QvXtm1ps56eHBpb 9N7oXB3 F9EnGEBumzkvwAEhmBggVL2 bDHRvmobxOCCzpG1xAMUrS4 y1GyGlNiU5PGamI6GvmwK3V DEwcHQg RIbpHFG0A72bu3T9SPAiBVY uJJK5cRC4xB9osSmeahhpiO VmdDsgdmVydGljYWwtYWxpZ 246IHRv mBlqPUEotC5sEKPccJYsfIs yBU1bTMNkdambIelEYdzqHU oVByWVOZ32RZ52dTGeh6M3y YB9Z6Sa BIGlszhtoosmpEI3ORKoCXU xiP91vBYdVEicWb6qj6A8r3 25OLApQPMblY71Dm3qaGjwS TBwdCBU iU2gtmguc6ejersmCkNvTSI oPYx6BMn6LXVxrZygNcYfHS V3JvV8YBL6pWHmjJ2chQcny idndH0s Oyc+CLDtIeSpNMf5WXfrtOR +NFJdRUF8gOocXMvcVYBsvH 8uMZIqM4y9GxQaHsS2IKceR 3BhZGRp ynitPq74oR6dLkWfSbG8LUi cU7AciwO0UHTihQQyCJblOY X9H23ky3Z2OBHoDGKyYGD9p HN1pP7t bGlnbjogbGVmdDsgdmVydGl wELmvOUzdU874ACIonRzrJv O9ZQruURLvPR58QA68eWHyg 5G0qER0 L7XtATFgddfwtoabpQM4WJI fNBRhnP24zEUxMWfiVm4qn9 W7h751QNOxISVouB98Up9zx DogMTBw nJKAfF4elhvwl0alchizDfE gGHUhAEt8HBg7HDDjvQouUg GfFUL6ZnK1JXE0pAFdiQ2fw Glnbjog aZ1cSci+TWFsZTwvdGQ+PHR hRDD9vXhpVViySJSpdL3sZX OnB3b1VgOxDbG4MGqtX3FkU GRpbmct Ao07wI9gHwEtCcV5OSqvE6K ckzP6ZHRtuSSqIFsrUQF2E1 1dy3L4IXLcPEYqZIU8eYX5k H9vlJdn bjogbGVmdDsgdmVydGljYWw kRSmvI843ECVubNqxLuXsQU SuNG1yvOwjvBR+KJ29eg26Y 3RhYmxl Pbu9NVQrSBC3wHE3uJ4iJUQ sQBavo5W2nIR8T1VkzpYyrh 5cj4zdSUFtHDkgZ05huTAsf 7K2WSLd eHQ3VTSywZcvMdPilH28Ocy +HLEwdBaps5VtZlzfy8xes2 ripTy6XsAeUZLqbfXogUiuQ BR9g3Bi Qa47T69pNRclCTMmAUIaFXG kYOCcrCxgoy7fuU6rFz3+PG LgxCX3qTI0lI0dLcBaEyL6W HauX300 BjWyqOWgJufam7pwo4qpgVo 7BsEiKQIypfUacNwqVFU2m9 FbSq39H0HlgTkmd0JkSwm2z s14hSMn x5V0jGE5E2HyWNEsuttciGM ieNuoVU8oHXQyogboCRRbnO 9kCFQdN0y8MgZhMlE8LGkhJ 2HzdqS5 JBGwnOYiGHYdkWMAiD7urbd vy1lpmoqxJmNpUASiDHr3HG i0IMSydKfjXlLoAYU8CwT5L KU2oSWy aH4swFqdizadfB0cEhh+UGh 1w7kgjMIlEM4opBH9JW98FD 76xQOhr0E1eSK4Y1MhKAVbl mctcmln xGH4CEFuQKCsvK29Oc2mvIo bAv3hXBBcOJJ2FNGwpBAdK3 EkeS4aBrZzHSRdDLSiI1Wga HQtYWxp J333ZWvsBbO1FPEhucJzW4E tIWGzpJboHbY1c0F2Zs6KZY 81IS01AB46rIGnl1K6cLF8W 3BhZGRp inlvwcaxmSP1GTEcZXQvkR8 6Wf9gpBfpKp7cWWXiGZC6MP OndAKzN9KkuA2hTlSpBAHkZ MRmC7Zc pICkFXpuW602CMbaYmR3ASN dmeHoF5CjGCBsmSifSiN4o5 B5Kp3DQd63KK77RD66wRMvx 2Z3yRC9 T2McWHYghrioicbspYC1HMM lMHXwyI61Nz4fgQzwQv5lXP PwXSG9PAUcxMNzZ0NszL3cA iAjMDAw IXZzO1BdxGGsILlxU505RXf gZxS0AESisgRsA6AvXSAoyS rlAaT2t3O3Ys7OVIjfzlc6T 3RkPjwv dHI+CK96SRGjRB34eNVxgZO tu8vkiYw8VkHeHISxVAY9bD luTJfpl0KnRQIyH77cuPVad 4A0EWMa bGxh (more content not included)... Normal [facility] Consent for Treatmenton 05-19 Consent for Treatment [id number]#1.00C D:127 Normal [facility] Discharge Instructionson Discharge Instructions [id number]#1.00 CD:127 Normal [facility] ED Clinical Summaryon 2021 ED Clinical Summary (Inserted Image. Claudia ble to display) [address] [address] ED Clinical Summary Person Information Name: CHRISTIANO ZHENG [place] Age: 26 Years : 1995 Sex: Male Language: Jordanian PCP: Lelia Franklin NP Marital Status: Phone: [phone] Visit Id: Visit Reason: Hemorrhoids; NEEDS HEMORRHOID [...] 06/06/2022 15:48:30 06/06/2022 15:48:30 06/06/2022 15:48:30 ADDRESS: [address] [place] [id number] [facility] DOC NOTES: MEDICAL INFORMATION: Prescriptions Given: New Medications [id number], [address] [place], [place] [id number], [phone] phenylephrine topical (phenylephrine 0.25% rectal gel) 1 Application Topical every day as needed for itching. Refills: 0. Medications to Continue with No Changes Other Medications brompheniramine/dextrom ethorph/phenylephrine (brompheniramine/dextro methorph/phenylephrine 1 mg-5 mg-2.5 mg/5 mL oral liquid) [...] Follow up: With: Address: When: Karan Lopez [address] [place] [address], [place] [address], [facility] [address] [phone] Business (1) In 3 days 06/09/2022 DIAGNOSIS: External hemorrhoid Normal [facility] ED Note-Physicianon 06-06-20 ED Note-Physician Basic Information [...] Lopez In 3 days 06/09/2022 EST [address], [place] [address] [phone] Business (1) Additional Instructions: Patient Education Hemorrhoids Attestation Patient seen and evaluated by the physician medical office assistant instructor. Attending physician was present in the emergency department and supervised care. This visit was performed by both the physician and an APC. I performed all aspects of the MDM as documented. This report was transcribed using voice recognition software. Every effort was made to ensure accuracy, however, inadvertently computerized plant engineering supervisor mistakes may be present. Appropriate healthcare PPE [...] Medications Inpatient No active inpatient medications Home brompheniramine/dextrom ethorph/phenylephrine 1 mg-5 mg-2.5 mg/5 mL oral liquid, [...] Family History (more content not included)... Normal [facility] Comment on above: Result Comment: Elec tronically [...] times a day. General instructions ? Take ipnb-zaz-yupodte and prescription medicines only as told by [...] be manag (more content not included)... Normal [facility] ED Patient Summaryon 022 ED Patient Summary (Inserted Image. Claudia ble to display) [address] [address] Patient Discharge Instructions Person Information Name: CHRISTIANO ZHENG Age: 26 Years Arrival Date: 06/06/2022 15:21:55 Discharge Diagnosis: External hemorrhoid Primary Care Physician: Lelia Franklin NP Provider Information Primary Provider: Leah Grover M.D. Advanced Orthopedics Nurse:Blane Rodas PA-C The exam and treatment you received in the Emergency Department were for an urgent problem and are not intended as complete care. It is important that you follow up with a doctor, nurse practitioner, or physician?s medical office assistant instructor for ongoing care. If your symptoms become worse or you do not improve as expected and you are unable to reach your usual health care provider, you should return to the Emergency Department. We are available 24 hours a day. CHRISTIANO ZHENG has been given the following list of patient education materials, prescriptions and follow-up instructions: Follow-up Instructions: With: Address: When: Karan Lopez [address] [place] [address] [phone] Business (1) In 3 days 06/09/2022 In the event that this physician does not participate in your insurance network, please consult with your insurance company to find a nearby participating provider. Patient Education Materials: Hemorrhoids A MESSAGE TO ALL PATIENTS REGARDING OPIOIDS PRESCRIPTION OPIOIDS: WHAT YOU NEED TO KNOW Prescription opioids can be used to help relieve qsngdmor-su-gwjisk pain and are often prescribed following a [...] guidance from the Food and Drug Administration (www.fda.gov/Drugs/Reso urcesForYou). ? Visit www.cdc.gov/drugoverdos e to learn about the risks of opioids abuse and overdose. ? If you believe you may be struggling with addiction, tell your health career technical counselor and ask for guidance or call [facility]?S National Helpline at 1-743-040-HEQJ. h Source: Depa (more content not included)... Normal [facility] Patient Correspondenceon Patient Correspondence [id number]#[id number] D:127 Normal [facility] Coding Summary.on 05-26-2022 Coding Summary. CD:[id number] Gh0 bWw+PGhlYWQ+IM2VFWHcM87 dgUSyqL0HP3eVTN4OLTRTMW XJGQ6MTU6cxFQ8VFuyL9Ibk iAv MzokmSBgIP80YPp4LPB2wOm zMGopuT0umQQiH1z8KoWeHP 98nD83TXksKOOqXrV8VgGea jsgbWFy M5saYvCphYIuGxp+PHRhYmx lIHdpZHRoPScxMDAlJyBzdH meHZ9nDh2cALZoHHRppRzmw HNlOiBj w5ahCUSqJRplLE2yhPyeW7X dcFS9KLQfq6m9Ra46jWH+PH KaWAU5zPqbZQewg439BlTzq 1qwEAT4 jFShURvgPCH4M73it3E1QPJ qHILrNOK4fPN4yT7dqCcnvo esF7UatUNbWoW6ITO6hGNyu D7ioFmm xyzobD6aXdn+O76GFZ3DIGI QES5VWzr4O7UyTeutgSL+PC 58WMDmBC57uSVhoVQbg0dhy Ku7TcJl XYSaDQY4sXjkHVdjo5BzVQP lE20rlVZqc2C8FZEdeNxcvK IlZmSbeUN3xJ6pRFmehhdwn 2hvdzsn Gmpao0uqdz82pV56E55jYJi cEZIzADD3SUByYUEgvKxwuv 3ryW0dLz4+YJqvv1lsu1naa Ti3PtIw VPRyccQthVtlMXJ2c3PvHz9 2S6TwzDjrg0ChEyn8co41xP Gkx5P4mVY3RQcgJDOwzP4jC WxlZnQ6 FVOtPeWbrD72mORyLGfyIo3 lxSzbkIejJO4cRLGpsvglCP MdsG6uTIKpxYKpbPduQC3kB TBpbjtm y829ImSjCNB8CESglJFeD0M oeI0pOtTlJKTnTMYsR3OptB KuMDcbA677ICltLrW9AYCjw sYqC9Sh TUUfjLulGmK6j2B5Dk3Rc1D dlwgfWKX2XSpoKAXzToA2Wp QcEkV8H7IlGic8YQTmiLhzB L4lP5Oo NGDmqygycktntEN6CRAxFAE inG97hEMoRTsfNk6bh7T9o2 46OVDlPARoiT49Ou4meBucV TBwdCBU pN6pjrodq5rbqtwmUxYfSIT eQEo1CCl2XIAuqTmcEmBhED C0GhJ1OUG3wGSchN0ezUadp itspU5o Oyc+H05oiI9xFSN4SYH4gya iJBClfrCcXM58RD30X7EcOb wvdGFibGU+PGRpdiBzdHlsZ T2dZdPx m9low9MzIUfdT7EuLFDyLBz mOwt9RQBaZJI8sUK5nG7dVG MsMMuio5C5xCR5R3UgkfUke r2bl6uv RALdSHieF45kzOKgo3U1ILU chKC8IVLpkUttYsRzwS83Li c+HVRagWacl3SdSjzqc4rpq 3afdHw6 SpPuIOJtwhNmfXdeWKM4i7W qBi76G29rFXclVQIlTRNoSL BhAYXhiTovzq4fqR5yJa9+P GNvbCB3 dGU4oF7cCMOfHtB0WFrnV92 9TeQwxZXiRflrv7ljn9bwwZ y0OfHsAUAwvuTisSavKWP5u 7YhCy19 M16nPJecQBFuEIGaGJRtBJA rpWrojb0uwB5yBj0+PC9jb2 sfht37iB46aNN+JSGhVMD4o WxlPSdw GJZktJ3qDYrdTdY5QKVqToH dcU13hYBkVKfiJq9kzMjtlR hcDZ3hCVKtemaaw343IfAhu 2xkIDEw fHWdDIzrHIS0T94yw0E8UCR xOIMeBJQ4oIC9gN1qfIbinn ogbGVmdDsgdmVydGljYWwtY JjsD249 IHRvcDsnPlBhdGllbnQgTmF kHUz8E7RfNty7OSZudPpvNU 5akDClFGkgWr5yfCvfoLhnD U0fCLQl nqtgz156XbMgc7bkHLUryEW cWHhgORP9C08xk7N6NSWxAK ScYEX3mAW0kO8vvIjuvcdqo GVmdDsg ufNqoStvAJdcLQcxJ883RXB llDywFrIcqwXpOCEbwZG0QA 90KE92cOOfy2G6fTS2P2BwB GRpbmct ulqakUU4KKFzSRTuaS06Tj2 qlKraJs2gTXGvCPR6SKRohP ElJ7VloI9fPsZoNBCmFLBmU 3RleHQt QLkjN295VQtbKhU4ZBJirbV yE5JeHKUpsFxtIdP5a1M3Va 5TG4Z6WP79BX68iEHwa1Q3t EU4O2Ce BYLzijiyruyfdWS8ILBrBFN lhN20Fx7vnQmgTy4qDHVyHQ R5AXMspCXhZ3BxkA9dKqXiH DAwMDAw Q2HcwKEkJNhkJ530VRrdLgL 4OFCbtiDnF9VgKODscHepBd C2q6G4Od1TYOz7DC77KX98a UHuj3R7 fHR4K2NlIDBxwtghbfjbdZX 4PHBtHWOpwM79Np1xpLqySi 3kTAMdMIB3HLKxmVOxB2Hgt O6rOcKb WOAlDVVpM2NgmAIlGFgmY16 6XYhlFfK8SHPhpfTiW6EnXD NxaZnlCrO8d6C8Gv4QKUSpQ L03BFQ3 hVW8TW87BW23N2RyFmuvvOJ ibGU+PHRhYmxlIHdpZHRoPS ncKUWdZoBoeQxoEA8gXa4hD GVyLWNv gTktgGQwCnXwv1lqDIVzTAo mVV7jzOcuQ0UtzKH6WZTyy7 f3Dj49Y19uK0JegMF+PGNvb AE3jSZ3 sQ4hDlBtNuU6GTklJ577IqI ebMPhDjvob1qcj4yjjRx4Kt Q0BDArqvYhjCyvWIV7j7QnO e24Z28i IHdpZHRoPSIxNSUiIHZhbGl hss4ruT6xXu6+CGTtpUR0rC Q6bS1fAbOdMgK7TStfX070F nRvcCIv Adxpv8cyg8xvnFx7PkHfGEP mmjGnoEyyDNE1s4YgFi34L5 KejOhxd2CzGgq1uf97bBYgh 8K6lBG5 W8AfPPBzlfmnmOPgtGeoJZ5 lNKJsqvdeABQluB6rCJFeG6 r2YwDsCqJ2VVhbU7XwztD2R DEwcHQg TSoyPSJ4O46ux3A1UZDtROG aHWG9mND5bH1xmMzxevyyrK VmdDsgdmVydGljYWwtYWxpZ 246IHRv gBaiUHJymH6wUYUlsAVufRn aGB9uJOQazukmMhwOPamfQZ xEXySQWS88PV22qDFet3A4e LN0J5Fr HMJrorukhatqiHF3XGFpAKI znG40rAFrYTkpEg3xz4S0b9 28QXPdKABmzE80Eo8obHuiY TBwdCBU hH6thkyuu9acqnygEpPwEXT uTCu9WOv8MQHwxAhdVqPmUZ E4OkZ8HDT3gZXpkM7ggRlpv xxpuX1q Oyc+OERfZqRiVMh1UEqtkZQ +PPTfONX9mHrqKJslCQTnjL 0jXSHgF6a7YqKpVfZ4PMzoM 3BhZGRp vskiTj70nL0gTiDxAsY1QUr tX4KlfeF9OLYtnWUeQUhfBZ S4M46pc9Q9RCGeZUEwROX1q RS6yG4m bGlnbjogbGVmdDsgdmVydGl tICmbWOdgA234QGBgvOswSq X1NAlfQENiKZ19WQ46vMEel 8N5rOW7 G2CdVAVovagrazsniLR1UOZ jQXPnfP33lNXgAFncEm7op2 R7b301BOTrAYZbbV89Bw0ed DogMTBw cZOFyU9mydzhh5ascpljCtD lDSWqAUf3HMk6VAHolYzjKa UnVXO9DeJ4ZKA9dUQxsN2hj Glnbjog xI7eFiu+TWFsZTwvdGQ+PHR tQZB1sTrxKPbzQXGhqH8iCR CfI0e8UtGlCpQ6ZDnsV3IxB GRpbmct Dp00pE8eTyOdQtI9QXvqP5Z gmhY4RWYwxKHwXOgqMJU1E1 0fb9X5XLLtGRGnEXA9eWO6r W8faPmn bjogbGVmdDsgdmVydGljYWw wNTbaB624BGHorEkaDaZkrW 4gTWFuYWdlbWVudDwvdGQ+P T33ph25 L0PiCsmrCcs5HTMbRUX4nKF 7pD5xTMYpPOyqh0V8jUJ9V3 WawhDgqp2zf6jcSIVuSXpcL 29sbGFw o4F6ZDNbrSB7VGMorWmeKpF dfC53Fmc+HBAsmJfbt8DzKd kfi6ajt7nffPl6DqNhURVnu mFsaWdu UUX9c4DqRu80Y47rEFcdYSK rIDRtDWQrGUHfaMmrng1ssZ 9wIi8+SWCjoAN2kPE8rX1vU jAlIiB2 JLbfN258OkKrnSEpHqsyt3m vo1bfdTy9YkPcCKHzokOdoN daSMP6a4IyRh86Z1PxbAnia 6EoNyi5 pn60xKRus8R2cWN4O9XoXQZ vhbqhkCPkeDumIL2oMPGhtg tpNCUpjK6gRSKwH1m4AoFhF mQ4XUjc G5RguzD6AJWtaQHwXFKhnDP UjF6rdcfem6wkbcpjOnJfEB HpANp9ANo3BWNwvIcuHdMqT WK4VhN6 PPB5nUXtyM6lpAtwnkvsxG8 wOyc+EWl4z1qugNBwWE2wmC F3NE45TX99qFBfy0H0vYF2I 3BhZGRp sqrsrozxmMJ8MHTeXKRbhQ5 2Mi1zjEijPk8dCXMwXOX7GC NnxYAsN9MnnA3pMlApVMDlZ TCjL9Xt xGRfDCbxR477UTctZnS7UPZ nhxXaA0SgYTHxzTzaEiX7v9 S7By5KAP36UK23OB15hHVqp 7D0wYT5 K8QrVSGmpfjzcxwkuGP4GZA qXCYisH82Ar1xuImmQj5wUI HgYJD8OSClrIIdJ3IkxS7sF iAjMDAw SOLvA5JixBCeYDoaY072MXj xVfJ2ONWqzrUtJ5ThHFPmiU xwWuW0f3P2Wj2JQv64RN40G J41uCYn j2N4rNT6A5LmIODukokbkfa lbSW7IUSvKNFzfL21Yh9ctI wuNk8iIJXjXLO6WWAwrENtF 5HfhR7o PgPoRMDhEMBeC4YytPYfDCv fB395IHrnZxU0DIPydeBcQ0 TqQXJzkVgpQkN0a2B3Jf0FW Xllcjo8 X6BaTzbxbQU+QJ50IRUkDG2 8bBOgoOFxv4aftKd5ZlGcTT JoCIL9xQmvXRyqb1SvEUHuY 29sbGFw c2U6 (more content not included)... Normal [facility] Coding Summary.on 05-25-2022 Coding Summary. CD:[id number]:[id number] Gh0 bWw+PGhlYWQ+QI2EDHClE72 hyYUvgY3FP9nFLY9DCWZESC MXJK9QND9yqGR4JZeiS9Kia iAv NdrqtAKlCO85NAa3ROX9mAc vDHbipT2gvKCeZ0k9LaYeIG 80iH40SDxkXHLgQgU1VxMtc jsgbWFy J4afVfKciNTtCjj+PHRhYmx lIHdpZHRoPScxMDAlJyBzdH vbGO5lIy8iWEMlIKHtjSucl HNlOiBj s1ayHHHgGTzoIT1uqNgvV3C nxMC8MHUqi7f6Tq75lTU+PH HhCCF4eIobQSloj596FzHva 8ucLWJ5 rRFpWFijMDZ8Y76ql5R8XPK oYNSxYPN4bMI8xS6sxHfzro ckL5LkmSLeToX8WCA1hDTvy A4urFqc ofwzcC3hRaa+A82BGZ4MMMK LYL0FQpm7C9EuAvbjgVM+PC 47VJVyYL02rUKotVJgi2wzv Ci4UnYk QULbZDV5nHarPAvaq2ElZGT hF23yzQThg0H4LDSyzLzwiJ DiYvPmbIL4fC2dNHtaeiwwf 2hvdzsn Jedbz3peaj15vM90P25jCNx dAZSdGPN9FHJlPHItuAosdv 1yfB2pDi1+HVrqr1jtp0xht Sg0WvTx HGHfgqTkoWrzLDN6m2BaSy6 5S6EfdMzvi8EhSfz8ee62bB Wkv6L4iFD1IHpkNZZfoL2rY WxlZnQ6 YXSuQmTwwL20eGCfUUloBy2 pbTrslAdsPG4uVOOyzrzpBX JocV4fSANggECroHobNS3kB TBpbjtm s454JpEfWBS1KITzqWHjP2C uhN9sFbTdGOQcAKIcW8HdqU UgVAnhR933CEpnNxD9MJLhz sJlJ2Oi ZXLsbZuvKbT5q1R1Ic2Sv7I ebvisXPB5MJclKFYrGcW0Oh WtHnE7Y6PkCgz0LRFhyQpmJ X4cS9Ti LMBmgscboyghiYF5SHEaMYB kbC60xUQdVCelUg0kq5M3c7 92WEJeFTNfsZ53Mc6ieKpfU TBwdCBU zW4yzlwup6mmguxtHxGqZGJ fSAi7VYv0EDNfnLwtFwMjHG R5OhO6JAE2rOVsaN7zcAbfd dklxV7t Oyc+N81pmZ7jEUS6WTU7jqv vKMUvjdTxEQ45JQ23J7BaGj wvdGFibGU+PGRpdiBzdHlsZ P2hNmMg g3dli1LhMLwmN4XmWCHaLHk dMco3CCOvBPI9dWE1fM5xLV QoNSbcl4J8sUR6A0YjsdHij i5ir9jc IYZeGYjuJ47trJViq1K0DAK xuWJ6MNYxwGfvXfEpsB59Bq c+KHTdsYfxa6DmBwpwv1zrw 5qgkNy6 TnPnTICpxdVydPalJUS3i4V wWr57S58wEZhfAZIlJZPeGH PsEMBqgKiudc2gdQ3wOx3+P GNvbCB3 wNK4dJ3dVFMtBlX9GXssJ87 6OjGdmBKuGiftn3bly1kxsP q7OsFaQUXnhuSmnQfbKGT8a 9XjZd91 P39tNNxtOPBjVRXtDDZvBFX teSgakp4fjS2gCo6+PC9jb2 gsvc38xE79nXB+QXQbVKU7m WxlPSdw BQQmmE2cKJyuPiG7IFKvJeI mkI12uRBlXAcuDx2veBuwnA nbPX9dVTPgbhjac825UvCkl 2xkIDEw kMWjJShsRZJ0Y17wc2B8HAG qTOLyYIV1yJU9oR3rjKvdig ogbGVmdDsgdmVydGljYWwtY OiiF059 IHRvcDsnPlBhdGllbnQgTmF wHGg1G6CnBwv9AKZdiYtwBW 8tdHEnPEwhPe7uyHiznQriG T8yINQg afxvn556SfObu9zvQZFkpVC qWNvrWQV3H29zn9C7FPVkXF LuXWV1mZB1jE7nrAntwtexo GVmdDsg alNnwHjzDCxgRZxbU426OLD obVsuBnTivtIaCLQfzEN3QQ 38WX52dYYuj7R4aZV3M3DfF GRpbmct cvposCL5VRDuRPFvcS16Sa2 suLweVg9iYFVcZGY0CDAdjY WyS3SqoY0kNnJjPFXsBIOgQ 3RleHQt KUepA091GRkbThL9WFQmjgJ kF3DkLGLnbOmxEbG1t9J5Yi 0OC4M6DV33ZW50kPRuq8M3v YZ2P4Th AOExeeiicfeioZL3OZTzMGD xqT05Eh5hxRwhXa0lANYyNZ S8UMOniXHrO7JwjW2yRaXjM DAwMDAw K6BheLRoSXefW147KTwsMnW 4WNPnsyBrX3TpVRVthVpxAk E5g5L9Al8TZRz4MG19ZM02a HKid6B8 tRO0H0IsXRJzwgfmxnftoXV 7HDVcOACurI77Fu5skTuxKx 8dAGQfKMJ7ZCWoiHPhT6Mcl A4dZeSm HWVdMIXrK3RubCIyLCstV16 0BWuvIaY0SZHgqrGrV8OiAS DbbLcbLlR1r5K2Wg3SWYJsV V57GGG1 mSX4CQ33KW00Q2RsUonuvTU ibGU+PHRhYmxlIHdpZHRoPS dxZNNiChKjkParBZ0vTj2bI GVyLWNv gIcxxXDiWySvy7myNSRzUCz pSB9fvNemF8MtyNE9XEDyl0 s5Uu06Z65rI9TxoOG+PGNvb CV7wVC4 zC7jCnUvPuO5DZdeS396LhZ eeXLyQvanb5bfl4zkrGi9Se A0ZKAiowMulEgnBNA3i4IeJ y47H36n IHdpZHRoPSIxNSUiIHZhbGl cpm4lbH5pMj6+JSIzxMO2jE R0xQ8iRmLvIoS8RJfxF881R nRvcCIv Qfzbt8jsc4dmdUj5LdZwQTH kunKnuVjsHTC0u9WiQp44Z2 DgtMaoi2LaAay5tu44xSLva 8S0gGC6 B5MhVWBfmdcxkJRpmVcbCY3 vYKDjeugpCMGwhP4wIDLpG4 l7VkThGoV6OZiuE8FtjlE6I DEwcHQg VNqpLLH8V23qa7C9ZWDsHMP dMRW3xDD4vH2mkQfjmhfuyQ VmdDsgdmVydGljYWwtYWxpZ 246IHRv tXbaSXEcqW9nIECulWQpzUl eKP1nZQSllzxmJhlQVbxmQJ fTHsNBPT65IC29aWUkr7Z1y TY8V2Mm BKSxbyrneixiaYI2PXFgCAA prK33nRWwQFvhWr1zl4L3e0 67LFKbAKYbwV54Bo4dlOlqL TBwdCBU wW5qehete7wszokgFmCbSZW nRRd3QNb2YNRvgQxtEcQgSG A2DvD2SLY4tTPccC3geDxxe uwkvQ8u Oyc+BNVxRzNdVQa5OCltgDB +IXMhQPG2hMqyOUovVFXwiK 7uZNIsF3l7TbUdTrV3YYcsF 3BhZGRp oyjsMz51cY9yPiEiRlZ5BLj lY6AtylN2COZxdZQhAWjqXN O9F17bf3L7KINbRVXgOXB2v SO9pP3k bGlnbjogbGVmdDsgdmVydGl nXIdxVSodY661FDCftSvqDt H0EXxfVDJcOK71QZ26zEIsu 3J1iWM9 Q6XkPEBjdtacddkzyVZ5GFP fZSAjmI38wDZnVYphVz8sy0 M1n347LGWhFHBizB70Iu2oz DogMTBw jOXFhY5fahpiy2wydcavRiA tHJUeMOb1RIq3MNWqnFdfHj RjEZH7ZeM3EDU2vPMwcL1zm Glnbjog sP9fQzn+TWFsZTwvdGQ+PHR tWQB1zOdtCUxlZXYqeK0gXK HoB5a4SmBeVaS8CHvhI5KiF GRpbmct Jn25gA5cGfWnZpE2BZiiL8C ilfU9MGCxaHUqBXihODG5U0 7hx0A8BZJwFHHbMRL9jRN0q E6wzIdj bjogbGVmdDsgdmVydGljYWw aTImkO390RAQyuZawVf36vM VziQlpfyL8C2CuDigcaBE+P J92GZUc YB36fTNvkJLqj7yvkSn5FrO iCUBzFKB5vJspJAbog2DwXL SmS15slLUoy3C2LKJlyWnoa HNlOyBl rZQ4mJ2fNQzqxuznp0pekdy cXcrnb1beeo66zI15O73nDK dpZHRoPSIzMCUiIHZhbGlnb m5xiO6k Ii8+SHJtgEM0kDO0gJ9oGmL wOyP3FRvlE527YfMfkMCnYr hox3tnx8ykaUl8NsKxDAPpg mFsaWdu KNW4t5JrCk10I57qBIruUXS bNJGdUSZiNHDysAcnkh3hoN 9wIi8+ET9uq1tmva36yP14t HI+PHRk UCV1mUoiCBelFGHwlY8nKTu cCtM2TWYvChQfnU37vJCiGI qmFg0nfDarhHlcLI8gSRJza wxnf531 NlMgt6wpJEQtrNCnYGhfMKR 3R11nv5W4FMUhBZViBKK1cZ X7aE5xvGhpuirrcSNjfKvej mVydGlj FPrqAMmsH665VBMgcXgdFaB wsONnM1uhwxYCSF5eSinbgU Q+NKTxRWM5iQvaOWvbHCBwk G5rXDWe T7c1ZnEqCkP7QAvuV8GvisQ 3KQDahREzLFLunQJViQ8vjz aoh3qufcarFaUqQFAoHSb1N Su3HJBr kLtgHpUyIOO3KaQ4MOZ8uTK ieJ8inQvvudomiP5rRjl+Rk lOOjwvdGQ+DLMqUWA3gGiyL SdwYWRk gS2uXXVsT7i5DpEbVfY6SPm tV2QccyF4XKDyqXSjCPQnsT ZWdE1fvhkwt9kqhzipIsJhR DAwMDt0 NWh4KBMxwVpjPbJfZCQ6UfN 7CHX3kNHmxX2rjLptmwtkmT 9wOyc+TVJOOjwvdGQ+PHRkI AQ9lWcb VLtlTJJbpU9sHAIvD8y2GpA eNeZ3FGasT7IqdrF2HAVmoW UuCVWsiQVLjH3tyccrm6vwt jogIzAw UEKkNXn7HZp1ASFfgXbaXqJ pSNH4DsM9TMU3vWRtbH4eyM tnllvhdL3dMkt+DUB5WGO7G N72OH82 X7LqNdvcnCXnqLY+PHRhYmx lIHdpZHRoPScxMDAlJyBzdH zwRM4tPp0uDITqJIMepWsie HNlOiBj b2xs (more content not included)... Normal [facility] Coding Summary.on 05-23-2022 Coding Summary. CD:[id number] Gh0 bWw+PGhlYWQ+TO5HBPJbG11 zxCDrvW9OA7yGFN3AGLXUDB KZOK6PDM8kyPA5HGtiG1Clp iAv MdcryDVlRP61SVq8HZT5gSu zRAyweV5lgJVcO1t8MfXhQO 12vS29TUykGPGlTfX2OyLvb jsgbWFy C0uuEuYvxXJsMgb+PHRhYmx lIHdpZHRoPScxMDAlJyBzdH wkEH5dWg0wCKPmUHMqeFmiu HNlOiBj p2tnEFPwXSakTF5mvWsdK6G zmNN6HPJji6c2Bw41qMJ+PH WtRDY0nHzaDTfnc447LeWpz 8hwSMZ4 cDDoSGyqRYA6W76df5I2BOG gMUIuKWN5jFE9zY4wuWoxqq ucK9CqgWSaMwZ6MNL9cZYpk X5bgHva jsfdmA4wVuz+F32ZYL0ASMS UZC0HHwg1B1LsNwybpFZ+PC 69WXKkPD26uPKtmNCvv3wnt Ap8WhUg POPcPSX0pAudVJwfj3IgNRF oN46mvOBno0C7UIZsiJrbwG QrToAefNV6eW2fIVunhkgxx 2hvdzsn Nnegj2ukmk33pZ26N15dENb cTIYgFWD0KNEmZDKhvIsnrs 1baC7bSt9+OFlla0lml2tva Qb4QqIp BQQprfNknHmcLUX4k6FtLt2 5W9NtuOjun0SoPyf4yl94kH Dje2N5bKW5VSgkSPQpqQ5zL WxlZnQ6 BJZuPcCgbX36qGMrXLvrOf2 slCyukGhqHT3yFZDufixzPR TwsA6pLHDdjKIyfZneVD6gU TBpbjtm c832KiIeGLR7BGTcrBPiS7G meJ1uYbPpCCEsERUhI8BniR TgHMqrK002EEobMfT0XHUgd vLdP2Sn DRTctBqtTwQ8p0D0Ix0Kx2N pbscxYZI7QOjlYATpPlL5Ib PqZmO9T6YpIzo6KWRvkFdlT L7fP3Rh KPLsdyihnurniZE7JTZlLPT eyU27zTPnTUbpHk5wu4C7r2 67TCHaEEVkzP53Wp5hcEzjU TBwdCBU eF0tykjsw9rkyrbkJxGlXTZ mEDu8MXp3QHRduIldXnZsUX G5WjO3NLF2wAVqcJ6frOrjn qdrgA8y Oyc+I45hmI2rPMU7PMD7qtb jQVNhhwJrEA40SO41U4QpQq wvdGFibGU+PGRpdiBzdHlsZ C2gGuWg c4qkh2LjQKiiS7KcHLRoVTn wAwj9PTFbVKH1eDY9rG7bOS AiDTmqf0P1wBP3K3JovcEmb n1tv8ce PQFlNLgeI66nxXMxn8V8QXG clVX3FZEkmIlrHtSxrB13Va c+FCVndGmpb6MsOasnq2rou 0lakEe4 RcStZLZebyPcoVjkPDF8u1R kUw11F46oPEssQNPtNIRjRY VkXHAxyZtvgr4fpU8eRq9+P GNvbCB3 wEP9lY9xNLYiFoJ1AVmmC94 7LoMfkPRcCivhd5fju9ryzP k5IwZfRVDfleOvyFwxLXW8m 5PdGd21 Y36eVHrePXPuXALbHDIaJOM zbHubqe2jmT4jGe3+PC9jb2 cttu50aR43yNW+ITPwPVI0p WxlPSdw WXHhzH5wKRsoQnK3ZMLnBxF utI13fQWtRGhjJj2ioWeojM ssHE3kNOYvvwhju797UgSgf 2xkIDEw fTHlMYfrEQF0E61qp7C4VIU gOUMzIJB4bKH7zR9uaRzyds ogbGVmdDsgdmVydGljYWwtY EypT181 IHRvcDsnPlBhdGllbnQgTmF nCDd0G3JbLgp4ILLguYpyMS 8gdJAzOMyqTo1qjOaqpLszI W8tPFGu jfanc885VaJld2cpFDGdxLV zTDabORQ8J18ja4W4IYUuHT QdQQM9jIA2yW8omZppfubpj GVmdDsg tvTmtIzvALivDJavS170KSP pzYvgSaJshfAdSNYesXD1NV 42NG02wBUsn1C5gIV2K8DwB GRpbmct rjvjmHC7ACTkSBMadB48Da3 bvNhnEz7aDTHqLWS6GPMqdF OtX3ZkdL8sZzJeVPQiLCTpP 3RleHQt ETljY344NGjdGxI8FAKxowC jA4SeFNKmcEcvSvE8q2A9Hi 8HT8V0NO12XT22fFXnm9I5c XH0G4Ed XUWihongidcygSM3RSDbNED geJ83Mb2ciSveXr7iZJWzOD W1HQMqhGFfJ4CltQ0cPdTcM DAwMDAw J5XtdUEoMJuoJ764APpgLsW 0GOQzlpFuD8YoUBFdoInsQs M0f9A8Tg5ZNGl7VK21WU43p NNua4K8 sWN7Q5DuRBHhdfaqlxaptNA 5MWAsFAEyyP20We4lfBwcQr 6sHCUeVBZ0ADZjnBKkN1Cbl D3iCgAa YDKmZMDeD2RclRDzGUzzD67 4PTodNzQ2BBNpzbAeJ2EkER KtcPzhHyV1d8L3Nj5HQUWlT O47INS5 qSM8PL55AW26H5LgFopwwKK ibGU+PHRhYmxlIHdpZHRoPS loDRQqAqRdoQpaSQ9gQq1sN GVyLWNv gJdemJVwAwHdr9rrILCrZWc zUQ0pjIuyQ8OtmCE3TFQlh0 f9Qk06M11vV4UqbDE+PGNvb JO3lLL7 pQ0jLkPrTxL8AIdwW503SmR gkUYyBwocr9tke7wclRv8Rw N7GGDlqcQtqIsgTRA3k4QlP m15Y22d IHdpZHRoPSIxNSUiIHZhbGl lft0qxK0wFv7+WHHqrUU0nA C5lF4rYbIzGbZ7ROerQ713Z nRvcCIv Wgasl3qja0wyrRc4JfNzVQB bfkPeyFtuFBA5j3TbKa88W9 SrkHvbg1AgKep3wg24lMKve 2X1zAM1 F0RzWZVopeqmgDMrbYvcPD3 rETXsmsjaVQCqiC8rKEAlX7 g9MmCaQpP7FBaqL5FuqaA7C DEwcHQg KEoxRVD3E46db2A9SLSyVKC dFJN2eIM7kN3pqCnyjbivhR VmdDsgdmVydGljYWwtYWxpZ 246IHRv wKlnFOImxN2fLLRkxAWnmRl tEO3hQDDhjqxgWhaANhswEG rITzGHOS88YZ07dSBpm3W1i LZ5O6Gk YJAielpgysnwsYG1QYIfNIF ggB32mPYkZNwaYm9fp1U1e8 72GYNmEBJdoS98Vj8goOcbJ TBwdCBU oE8yzdvvm8uusbrtMmOsLQG fXDo2THl5VHDcuVgpXcWkXX O3NqC4GKT7cRNdnS7mcKiqy rqfkH2e Oyc+OPQzTdTwHMr2MQajrHN +GYNlLXH8fLepZInnITVpfF 6gJSMjK0l7AwStTcG6THxdC 3BhZGRp szcaPf64pZ1aXsDoNkD0GIk yS6IdtxB8NCHwzRBnJWvwKQ B4N23px1W0QDKqUYIjNER2r CX0rO8f bGlnbjogbGVmdDsgdmVydGl cUQmwSBsjH908RSAdjYnpJc L9ZFilQMHpQN49FA03xZPwv 1I8oAN1 V3TuHEItjmrjrqizqDN1OEJ bHDUazF04aETrOPkyWm0nx8 Q0a056FYCsFHUblV15Wa5ct DogMTBw wWNPpK0ynbpqe2svgoqoIkI mFFHmVCa7ULe0NPLbiBhgWs NzPZI7JpB9MRC6qBWstW2ki Glnbjog wQ9zObo+TWFsZTwvdGQ+PHR dGVW0rMhtMTotYNKlxY6rBE KsY9k0WwGkVwF6JSmfP5BzO GRpbmct Gv75bY7lKpFeXuP0GHwlX2U jmbC7NSObcYIoFHhgPHI2N5 7mj3E6QHTaJARvZYH7fMW4s B4jbQef bjogbGVmdDsgdmVydGljYWw bTTebL790VQVycJjeMeInBB AnHZ5oaZsrmEU+GK06xo51C 3RhYmxl Piy4XOAmXQF9tJC9yJ8aXEW rOEluq6L9yEP1N7TxftMfxj 4lh3fdXVReUBkjW89lwSBgv 6P4SCSw pII7SUYzgAnoTlDpxZ81Wjj +ELQzyFeyi9RyErrnx6fzm2 wxxJz4TrExJIKlcfDfdXweG HG4l7Yn Tc16N75fKJozPUTfLIQkSXU yNQIyuKqreg1izM9oGl9+PG EylZV6tVU1mK3hYrPvFxC0F CgpP007 KeTngWAsGypph4lfx5slzZu 2QqEhEUDiakGjmUsdEDI1k5 ClGk21S0EgsBnqu5XrJhv5c b95dASn r8J6wNU4Y8EvSHAmuohviRS koEghED4pPROrtjbbPTZvuP 4iFSJcV0w4ZiUxXzL3GHheO 0HoxoJ1 VCEofRRqDTVbsTJAeZ3mwev mu1knwfdcCwXxJIOqFTy1SY j5IKDuuGplNtDkUCN0KmB2Q DW7oAHu oG2sqXdempzuzX1dHwo+UGh 4j8rkhTFgQC7asQN6ZQ04MV 36eWEig4F9xDV7G7DvKDPxg mctcmln sDX5KRAxXXRovN05Id8pbIm kLa6yGBOyUBI8LYUusCVlD8 ZxwR6xQxWfPGZmVTPhA0Oyp HQtYWxp N370BMbjBsM8QLCfjuDkZ3Q kAKJmwVgrZeE4q9E4Ps1FEX 93BX55EC86pBWzs0P9wMN3E 3BhZGRp cdrkwgnruAA0RPGjHAQrdC5 3Fs7gbHfeCh5wTXWrXPK7XE UdkKAjI0QusY3uImOyEQDkG JEoJ5Ur aARkFOdzE430DNhpYtX1YPD tdoCxQ2AcTTYfuTecXoD1n8 P7Dw2LAd14JI59SE43dDNtz 2G5bMA8 P4ZbYJDhaswmqcrufCU0ZRF wFRLwdA31Xs0aiGxhJx1dNM WwHJS0SJKldGFuZ5SyeI9vA iAjMDAw JPIxQ9ZxtCKyILetG239MGv gLwB0NSDroaWjQ9DqTCYonJ pwRaC2r2L7Rq0GYSlhlbv2M 3RkPjwv dHI+IU10OEBiPH00zSClrFR vx0fljUg6NhLfBVOdVVL9iA xrMVmkg0IrKUBrT31icAScs 9X8KCSn bGxh (more content not included)... Normal [facility] Consent for Treatmenton Consent for Treatment [id number]#1.00C D:127 Normal [facility] Consultation Noteon 05-23-20 Consultation Note Patient: CHRISTIANO [...] Daily, # 30 tab(s), Refills(s) 1, Pharmacy: [facility]/pharmacy #[id number], 178, cm, 04/28/22 15:31:00 EST, Height/Length Dosing, 79.7, kg, 04/28/22 15:31:00 EST, Weight Dosing Vistaril 25 mg Cap: 25 mg = 1 cap(s), Oral, TID, PRN for anxiety, # 40 cap(s), Refills(s) 2, Pharmacy: [facility]/pharmacy #[id number], 178, cm, 04/28/22 15:31:00 EST, Height/Length Dosing, 79.7, kg, 04/28/22 15:31:00 EST, Weight Dosing benzonatate 200 mg oral capsule: 200 mg = 1 cap(s), Oral, TID, X 7 day(s), # 21 cap(s), Refills(s) 0, Pharmacy: [facility]/pharmacy #[id number], 180, cm, 05/19/22 10:12:00 EST, Height/Length Dosing, 80, kg, 05/19/22 10:12:00 EST, Weight Dosing brompheniramine/dextrom ethorph/phenylephrine 1 mg-5 mg-2.5 mg/5 mL oral liquid: 10 mL, Oral, q4hr for cough and congestion, 118 mL, Refill(s) 0, [id number], cm, 05/14/22 19:45:00 EST, Height/Length Dosing, 79.5, kg, 05/14/22 19:45:00 EST, Weight Dosing cefdinir 300 mg Cap: 300 mg = 1 cap(s), Oral, q12hr, X 10 day(s), # 20 cap(s), Refills(s) 0, [id number], 180, cm, 05/19/22 10:12:00 EST, Height/Length Dosing, 80, kg, 05/19/22 10:12:00 EST, Weight Dosing cyclobenzaprine 10 mg Tab: 10 mg = 1 tab(s), Oral, TID, PRN for spasm, # 30 tab(s), Refills(s) 0, [id number], 178, cm, 03/28/22 14:15:00 EDT, Height/Length Dosing, 83.1, kg, 03/28/22 14:15:00 EDT, Weight Dosing predniSONE 20 mg Tab: 60 mg = 3 tab(s), Oral, Daily, X 5 day(s), # 15 tab(s), Refills(s) 0, [id number], 180, cm, 05/19/22 10:12:00 EST, Height/Length Dosing, 80, kg, 05/19/22 10:12:00 EST, Weight Dosing Problem list: All Problems Anxiety / SNOMED CT 20522428 / Confirmed BMI 23.0-23.9, adult / SNOMED CT 5179878264 / Confirmed Cervical radiculopathy / SNOMED CT 703992065 / Confirmed Cervical spondylosis / SNOMED CT 5436702223 / Confirmed Constipation / SNOMED CT 50146731 / Confirmed after GB removed Difficulty swallowing / SNOMED CT 30540501 / Confirmed Enlarged tonsils / SNOMED CT 290309038 / Confirmed Family history unknown / SNOMED CT 4445705928 / Confirmed Former smoker / SNOMED CT 91084224 / Confirmed Hearing deficit / SNOMED CT 22954509 / Confirmed 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 / Confirmed History of neck pain / SNOMED CT 2469352856 / Confirmed Hospital discharge follow-up / SNOMED CT 1415736604 / Confirmed Insomnia / SNOMED CT 294849623 / Confirmed Lower back pain / SNOMED CT 802637062 / Confirmed Medial epicondylitis / SNOMED CT 99341447 / Confirmed Muscle spasms of neck / SNOMED CT 2403679951 / Confirmed Non-smoker / SNOMED CT 75812372 / Confirmed PTSD (post-traumatic stress disorder) / SNOMED CT 78263091 / Confirmed Screening for cardiovascular condition / SNOMED CT 348953670 / Confirmed Splenomegaly / SNOMED CT 25555183 / Confirmed Stomal ulcer / SNOMED CT 4554199046 / Confirmed Testicle lump / SNOMED CT 968598881 / Confirmed Objective Vital Signs 05/23/2022 14:51 [...] IMPORTANT. EXAM (more content not included)... Normal [facility] Comment on above: Result Comment: Elec tronically Signed By: Jenifer BOGGS, Sen Dodson\.casimiro\Date and Time Signed: 05/23/22 15:07 EST Office/Clinic Note-Physician on 05-23-2022 Office/Clinic Note-Physician [id number]#1.00 CD:127 Normal [facility] Patient Correspondenceon Patient Correspondence [id number]#1.00 CD:127 Normal [facility] Patient History Officeon Patient History Office [id number]#1.00 CD:127 Normal [facility] ED Note-Physicianon 05-22-20 ED Note-Physician Basic Information [...] day(s), # 20 cap(s), Refills(s) 0, Pharmacy: [facility]/pharmacy #[id number], 180, cm, 05/19/22 10:12:00 EST, [...] Franklin In 3 days 05/22/2022 EST [address] [facility] [address] [place] [phone] Business (1) Additional Instructions: Patient Education Otitis Media, Adult Attestation Patient seen and evaluated by the physician medical office assistant instructor. Attending physician was present in the emergency department and supervised care. This visit was performed by both the physician and an APC. I performed all aspects of the MDM as documented. This report was transcribed using voice recognition software. Every effort was made to ensure accuracy, however, inadvertently computerized plant engineering supervisor mistakes may be present. Appropriate healthcare PPE [...] oral syrup, 10 mL, Oral, q6hr, PRN brompheniramine/dextrom ethorph/phenylephrine 1 mg-5 mg-2.5 mg/5 mL oral liquid, [...] Tobacco Use: (more content not included)... Normal [facility] Comment on above: Result Comment: Elec tronically [...] by: MARY Technologist: ROBYN Technical Comments None Normal [facility] Consent for Treatmenton Consent for Treatment [id number]#1.00C D:127 Normal [facility] Consent for Treatment [id number]#1.00C D:127 Normal [facility] Discharge Instructionson Discharge Instructions [id number]#1.00C D:127 Normal [facility] ED Clinical Summaryon 2021 ED Clinical Summary (Inserted Image. Claudia ble to display) [place] [id number] ED Clinical Summary Person Information Name: CHRISTIANO ZHENG Katia/[facility] Age: 26 Years : 1995 Sex: Male Language: Jordanian PCP: Lelia Franklin NP Marital Status: Phone: [phone] Visit Id: Visit Reason: Sinus Pain/Congestion; Cough; [...] 05/19/2022 10:49:17 05/19/2022 10:49:17 05/19/2022 10:49:17 ADDRESS: [address] [place], [place] [address]Sonya [facility] [phone] PHYS DOC NOTES: MEDICAL INFORMATION: Prescriptions Given: New Medications [facility]/pharmacy #[id number], [address] [place] [phone], [phone] benzonatate (benzonatate 200 mg oral capsule) 1 Capsules By Mouth 3 times a day for 7 Days. Refills: 0. cefdinir (cefdinir 300 mg Cap) 1 Capsules By Mouth every 12 hours for 10 Days. Refills: 0. predniSONE (predniSONE 20 mg Tab) 3 Tablets By Mouth every day for 5 Days. Refills: 0. Medications to Continue with No Changes Other Medications brompheniramine/dextrom ethorph/phenylephrine (brompheniramine/dextro methorph/phenylephrine 1 mg-5 mg-2.5 mg/5 mL oral liquid) 10 Milliliter By Mouth every 4 hours as needed for cough and congestion. Refills: 0. brompheniramine/dextrom ethorphan/PSE (Bromfed DM oral syrup) 10 Milliliter By [...] Follow up: With: Address: When: Lelia Franklin [facility] [address] [place], [place] [phone] Business (1) In 3 days 05/22/2022 DIAGNOSIS: Otitis media Normal [facility] ED Patient Education Noteon 05-19-2022 ED Patient [...] Follow these instructions at home: ? Take nvce-vrr-rmnpaqd and prescription medicines only as told by [...] 03/09/2005 Document Revised: 05/17/2018 Document Reviewed: 05/25/2017 [employer] Patient Education ? 2019 [employer]. Normal [facility] ED Patient Summaryon 022 ED Patient Summary (Inserted Image. Claudia ble to display) [address] [address] Patient Discharge Instructions Person Information Name: CHRISTIANO ZHENG Age: 26 Years Arrival Date: 05/19/2022 09:54:01 Discharge Diagnosis: Otitis media Primary Care Physician: Lelia Franklin NP Provider Information Primary Provider: Karan العراقي DO [facility] Nurse:Blane Rodas PA-C The exam and treatment you received in the Emergency Department were for an urgent problem and are not intended as complete care. It is important that you follow up with a doctor, nurse practitioner, or physician?s medical office assistant instructor for ongoing care. If your symptoms become [...] Instructions: With: Address: When: Lelia Franklin [address] [facility] [address] [place], [place] [phone] Business (1) In 3 days 05/22/2022 In the event that this physician does not participate in your insurance network, please consult with your insurance company to find a nearby participating provider. Patient Education Materials: Otitis Media, Adult A MESSAGE TO ALL PATIENTS REGARDING OPIOIDS PRESCRIPTION OPIOIDS: WHAT YOU NEED TO KNOW Prescription opioids can be used to help relieve kaculinv-os-jjevgo pain and are often prescribed following a [...] guidance from the Food and Drug Administration (www.fda.gov/Drugs/Reso Nadiau). ? Visit www.cdc.gov/drugoverdos e to learn about the risks of opioids abuse and overdose. ? If you believe you may be struggling with addiction, tell your health career technical counselor and ask for guidance or call [facility]?S National Helpline at 5-296-484-TIAI. f Source: Department of [facility] and (more content not included)... Normal [facility] Prescriptions/Work Noteson 1 07-20-2021 Prescriptions/Work Notes [id number]#1.00C D:127 [facility] RAD - MRI Screening Formon 1 07-20-2021 RAD - MRI Screening Form [id number]#1.00C D:127 [facility] Coding Summary.on 05-18-2022 Coding Summary. CD:[id number] Gh0 bWw+PGhlYWQ+ER1CBCNpG30 rvLNxnO7YF6zJFC1PSFRSNZ LNLX6STY0djPE8QKwnU7Ddt iAv ZzsgmBVtDP01NBd9WJL3aYc sRGevzJ4ddEGxQ5l5WhJxWR 59zX18SVxbRRZqFlO5FaCdp jsgbWFy N1mnCaDwnUTaWon+PHRhYmx lIHdpZHRoPScxMDAlJyBzdH jnUS2bXc9gOMKvPZVvxSkvc HNlOiBj c2leEECaRQsgOO9wyAtdB0N nmQO9ATUkm2h2Xt94gSB+PH OrTLA3cNqnBUlbp412PwUgk 2fvUJS4 kJJwITgaMFW4N09tw5S9ESO mMUSyYIO1vGU1vV9gwOxhww qqP1XvaFRrBmZ6PZI5mNRit Y6lhYnb ovnhxU8kPlv+F66ZZG0ODCI RWL3ERpz6G4IsKvejuRJ+PC 22ZTNfOA71bKPxrENap5oaw Pu6UfRe WBEbOLA0hRgtUPkkg9NhQMV nD24vrQMif8P9QNTnmYszsR RpOvCngRN0kC0sBZwduuqox 2hvdzsn Doxcy8jsoy25nZ69A04qATx dSKEgXIU0VCVmHMHoxMihfu 2jfS4lYs3+GFkkz5srl3eiw Qv1GkCj BPCqbaMdnLspQOQ5v2AoOh8 0K8NjbGiyv2OvJqh3gr78uZ Qhp2O4zZV2ZZkvTGEcbA1eZ WxlZnQ6 QCZdEyBjoT52lRUfYLjzVa0 jyNrahVksVZ1lKSOyltctSG CxeI8sNTUalHBrlTuiZJ6iQ TBpbjtm e163MjVyYPY0VQMasHNtT8V sgN7dVfPhOIRpQJNjI0HynP OzSQjyZ820JNvaGfB8OJPdk kRuH4Iq EANhxXfiJoF7h9G1Kt8Nk5L msgknLFD5QKyvJWKoUnZdTs GmRmU1K1YeTsp4WXTghLrcD C1iR1Mi EHSszzqpuyifnHV2EGAcNYT ahF71bSQmPPfdRt5zb0X9z2 39RJGbZGMwyZ06Hz8mtLycS TBwdCBU bR9crgdsh8qnxzhdWnDdIVH lIRk1ITi5ZSUeiSohZaSdQF N6EqJ8VAV6iIWfiW9xlOhsk onowO3a Oyc+B82nkZ6rTXX1SXY5bbq oRWTjljRrNC10SE46S7IvKr wvdGFibGU+PGRpdiBzdHlsZ J9vZaMi f4cio3OwQBqiH0QmXXOyROr qBeb2OAAqKUS0dIJ3aY0kRB ExVAtuk3A1nQX0J9AscxBkf q1ih9ep NFUrDAcjI94nzRQuz4I5JOK wxTY2NNOlbFhkRfWsaA05Nf c+ZEFpiVuos1AhEhuwi7dki 3mgkKe5 KmWgEVJnlaAqpGnbYXK0w7V zNl85H05gJIurDUJyNZYnVO OmGBBnmKifgh7cqR9rVn1+P GNvbCB3 uOY0tM1eIFDnQvM1JHrnL38 0FjSugQCeDtoci6ugg1dqkZ n0IgIsARJxijHpfPyjZVD7n 9YrCd38 Y08bQWtkZLIoRLWiAAIrPLV wiMfmdg5vrX1oCh7+PC9jb2 whcv90tT93zXT+OYEbZUV6b WxlPSdw MPGceP9uSQmwSoO4DMOeIbC btW73qPQrYIqjXo4zcCangG swLO6vVDLefehjp083XePnn 2xkIDEw dDXrQQvjGLI7O40es2E2MZE oJTWzKXC0vSX4mE9edLdwld ogbGVmdDsgdmVydGljYWwtY XwkO777 IHRvcDsnPlBhdGllbnQgTmF xJVt4R9ThMwx0EFBbfRjkHG 2ajNRcUDkzJo4fyOyldGasX K5zPKAr entrn083XrRhf8kzEZVvzAT jAGflAMF6X48lg2C1NAOgZE VtASS4eZX9bJ6cgHlvbunwv GVmdDsg nqReeKmgSDykAJstO778LIH jpOrnXoUajyLkFRNhxKN1HP 70YH93gWSsz1V3tXQ7B3UxE GRpbmct dhpcaNP3RZUfQWHtwR10Mx8 efKraKq0dEJPwZOE3XIGdeI YcM3EoiV2dVjHfLZAxPHFiL 3RleHQt QWsxF328KCbhRzG8KJNaueR iR7SiUWIvxQcdPkH0h5L8Pu 0MR4C6RC13CD74jBBds8J2w SM2Z2Re FASprpeikucleKM7OLMpVJZ pzS90Lm8ijUnnFr8jGIJlGE T3AQMpjPLdU7BxkZ6fIoBvU DAwMDAw R9RddWVlKIvgO450KGsqZfH 0SWRtgeQpG0BoDVDjeUmsOn W5l9B1Yp2EOSe4DJ41RO74j EXct5R0 pKZ9Z4JxSJQlchjtcklbcBX 1FLZqUVAkaO40Bg6ptIzkHv 8rJGPtXXU6RCQeuAQwS6Qef D3xRfZa PKGoTYWaQ2UywKMmZEupT66 9COlqKuE9EGPikzQzN4UkUV MbmMokWdG3u9J2Dr1XPXEaH E93GQY8 aVX5JM83LE02L6HhParmmCO ibGU+PHRhYmxlIHdpZHRoPS jhMMIsNxWpsNotKZ0lEp9mK GVyLWNv pRatfQQeMrWnu6egREEkTSy fVC7sxIzgB6HziGJ1RCJgk1 u2Vs35K99dO7JbaHB+PGNvb GV2jZV4 tA5jGaDjFeW3BBbfL518MsD thTQqPlyzl8tiu2gsgGc8Ow O4UGIwbiAqdEuuVNU6o2PwZ q49C73d IHdpZHRoPSIxNSUiIHZhbGl kof1wuK4vGb0+AVVvwEK2uJ C5gB5kUaOnOyR9SJgiV475W nRvcCIv Ovxey7gih5eekSp6DeIoEKW lzwHsxMvcDNM9h4GzFu40L9 XduRyvs4MqClf6er77hVCbd 1G5cJG6 D5StGJAeclkmjKZamPdsRZ4 fPNVmzqfoPRRosP0yMGAcG8 f6TiByXfQ2JNasR3XltkV5F DEwcHQg IMhjSKP9R34tu4G1JUEaRUM wQWE5bSZ1fP2zkIpmttmldM VmdDsgdmVydGljYWwtYWxpZ 246IHRv gHmrYJPogC1oLIMgtUQuqRa tLH6zAEDgigqkSftADwmlBU oMMuVYWY94HV99zENre8I6p KF7O0Sp XUNvmuqfukijtRU3JDIqFYG enQ25yYSgIHrrJo1je9G7s1 00TFPtJTGnyB39Ko1xxDhzV TBwdCBU jK8lsjtzr8rzxlvbYvVpPYR wLOr7DNt0RHPpgMhzScAbBD I3PjN0DWL4qEIxvA7naEako goblR8q Oyc+QLYhKqVhZOb0ALdqfBZ +GLUnBTC9fAeyDKldXANyeJ 8sEOMwX2w0PhZcBrE1SAaeX 3BhZGRp uabtNj03aM6eNkOoFaU5VOa mB8XbuzC5JCZjzALyFWhpWN O8J09oj3K6VUDuVUEeULL7t OA5qA5e bGlnbjogbGVmdDsgdmVydGl jRLiaEGywI101LHKeeZweRu W2KWujGEOfJA15ST45dOIjc 4A8bAR3 Q7HrOSPrzqprxuinoEZ3TZN vMADszV89iDNoEDrlKa1fs5 H4b921MFOsYHQdwR58Hr8nz DogMTBw dTPGkC4xotnsv0birsedGoW uHHWrHRo1PEo6XZNahXqyOu CbECC6FxM5KUH0rVUasM3bb Glnbjog yN3cQqk+TWFsZTwvdGQ+PHR rBYU6bBgiWNgoWCErbI6zBN TbM9h8GrEsJwB7ANlaF4MpM GRpbmct Xz78nT6nXfIfAlA0INlwL5H oqwR4LWArkBYpBRxyVJB4E4 1gv5M6GFVlARKiXBX7xAV4k T9xvOpa bjogbGVmdDsgdmVydGljYWw dYUhyQ539PMGfmIbbHvRxVL WjWO5ayVgcnRC+YR86yc54B 3RhYmxl Bjg2XFXfVSQ9rCL0bR3dQZP zJGstr0S7rUG7B8VwrlQlfi 4kh5nbTJOyRNzlH05vqNQuc 2X9AFIt dZR5CHBegCpaMsGgdQ85Sih +TKRmqImhs2HsWtmai2pga0 mivVu5HrCxFQXjioKvhUtuI TX8d7Bk Hs35B19vNXehNUAyDRKeYZU oVLPgjKzage5jgD0uBb6+PG GtoOH2pSQ8sI7nCqCzOxR5E UqdU269 BoJvxMOcHjoua2lwf2hteKq 5JnUxUXNiofIlrGliWJW8q0 PsLw37Z8EdcMndv5FtKly4f c98vDYm g8K1rDT1Z0XpLPAvzrdeaPL cyAjaYL0xHCPxvpimZGFusK 4zWEMzA5b9PjFhNaO7LTbvD 9KpodA2 RFYgeKRcUACarQMVoQ0pjsq ez3ilycorBoZqBVNuMPl6FH r0EWZxfZrmXoIkUEI4GqD8L OC6oJWj fB2wpVaqirjknJ8yNnp+UGh 3u0oizVKwWI1ngRO6MG19BP 44gFQle3W2lJE9Q0HoBPQwv mctcmln zHA9SJCbFFTtfG73De0wgCg oPb1lZWFuFHF7XXKfjDQcA9 QyiX4pJdXlEZPeTAOoH1Dyk HQtYWxp X712POfoGoK8LMVyxhCnM1X rAXDvwXwzVfE0k3Y8Tq4UPK 34AF03KW12jWOev7D0mNN8K 3BhZGRp uwqklmqjtPF1WEVoPTDinE3 2Xn2pkZnwCn7vHRGyORY3SM GgaJAbX5KooL6eVpAsCSEaC HXjQ1Yd jBXyCFccY266GPrkQhC2GLN cmpWtL3SeLWLarNarHhC8y6 B2Qt4UEk13DX95CJ79qODuo 3O3vAU2 A5EoZDIatnvdwkmhiGJ8ZIF jNARbaN75Sb2heGaaSr6eRF VmZEJ9QODtxRTzT5AlzO6jR iAjMDAw NIMqK5UsnZFaWVseV791PNs qJzU5MUMdyvXnE4ZvMYZznI oiZpH9z3L8Rq3SKWmmtff1T 3RkPjwv dHI+SB01AJLwHT37rLDpuKI zf8xbkUe0PgInVJDeICM8nI aoNUqva5RsIYNeM99doTYaf 8H2FRZx bGxh (more content not included)... Normal [facility] ED Note-Physicianon 05-16-20 ED Note-Physician Basic Information [...] worse over the last few days. Patient ports has been taking DayQuil and NyQuil for [...] (J06.9: Acute upper respiratory infection, unspecified) Orders: brompheniramine/dextrom ethorph/phenylephrine, 10 mL, Oral, q4hr for cough and congestion, 118 mL, Refill(s) 0, [id number], 180, cm, 11/27/22 19:45:00 EST, Height/Length Dosing, 79.5, kg, 05/14/22 19:45:00 EST, Weight Dosing brompheniramine/dextrom ethorphan/PSE, 10 mL, Syrup, Oral, Once, Stop date 05/14/22 22:41:00 EST, STAT, Start date 05/14/22 22:41:00 EST Influenza A&B Ag [place] [place]ations Administered Given Bromfed DM oral syrup, 10 mL, Oral Disposition Plan Patient Discharge Condition Stable Discharge Disposition To home Discharge Prescription List Prescriptions No active prescription medications Follow-up No qualifying data available Attestation Patient seen and evaluated by the physician medical office assistant instructor. Attending physician was present in the emergency department and supervised care. This visit was performed by both the physician and an APC. I performed all aspects of the MDM as documented. This report was transcribed using voice recognition software. Every effort was made to ensure accuracy, however, inadvertently computerized plant engineering supervisor mistakes may be present. Appropriate healthcare PPE [...] Historical Cholelithiasis (more content not included)... Normal [facility] Comment on above: Result Comment: Elec tronically Signed By: Bandar Pope PA-C\.br\Date and Time Signed: 05/15/22 02:11 EST\.br\Electronically Co-Signed By: Jose Taylor DO\.br\Date and Time Co-Signed: 05/16/22 06:44 EST Physician Orderon 05-16-2022 Physician Order [id number] D:127 Normal [facility] Discharge Instructionson Discharge Instructions [id number] CD:127 Normal [facility] ED Clinical Summaryon 2021 ED Clinical Summary (Inserted Image. Claudia ble to display) [address] [address] ED Clinical Summary Person Information Name: CHRISTIANO ZHENG [place] Age: 26 Years : 1995 Sex: Male Language: Jordanian PCP: Lelia Franklin NP Marital Status: Phone: [phone] Visit Id: Visit Reason: Sinus Pain/Congestion; Throat [...] 05/14/2022 22:51:08 05/14/2022 22:51:08 05/14/2022 22:51:08 ADDRESS: [address] [place] [id number] [facility] DOC NOTES: MEDICAL INFORMATION: Prescriptions Given: New Medications [facility]/pharmacy #[id number], [address] [place], [place] [phone], [phone] brompheniramine/dextrom ethorph/phenylephrine (brompheniramine/dextro methorph/phenylephrine 1 mg-5 mg-2.5 mg/5 mL oral liquid) 10 Milliliter By Mouth every 4 hours as needed for cough and congestion. Refills: 0. Medications to Continue with No Changes Other Medications brompheniramine/dextrom ethorphan/PSE (Bromfed DM oral syrup) 10 Milliliter By [...] Lelia Franklin [address] [place], [place] [phone] Business (1) In 3 days 05/17/2022 DIAGNOSIS: Upper respiratory infection Normal [facility] ED Patient Education Noteon 05-15-2022 ED Patient [...] these instructions at home: Medicines ? Take xluf-zfp-owcuhbr and prescription medicines only as told by [...] a condition that needs treatment. ? Take adoz-cpn-imqswey and prescription medicines only as told by [...] Reviewed: 06/23/2019 Elsevier Patient Education ? 2019 [employer] Normal [facility] ED Patient Summaryon 28- 022 ED Patient Summary (Inserted Image. Claudia ble to display) [address] [address] Patient Discharge Instructions Person Information Name: CHRISTIANO ZHENG Age: 26 Years Arrival Date: 05/14/2022 19:32:44 Discharge Diagnosis: Upper respiratory infection Primary Care Physician: Lelia Franklin NP Provider Information Primary Provider: Jose Taylor DO Advanced Orthopedics Nurse:Bandar Pope PA-C The exam and treatment you received in the Emergency Department were for an urgent problem and are not intended as complete care. It is important that you follow up with a doctor, nurse practitioner, or physician?s medical office assistant instructor for ongoing care. If your symptoms become [...] Instructions: With: Address: When: Lelia Franklin [address] [place], [place] [phone] Business (1) In 3 days 05/17/2022 In the event that this physician does not participate in your insurance network, please consult with your insurance company to find a nearby participating provider. Patient Education Materials: Cough, Adult A MESSAGE TO ALL PATIENTS REGARDING OPIOIDS PRESCRIPTION OPIOIDS: WHAT YOU NEED TO KNOW Prescription opioids can be used to help relieve vamgbleu-jy-diayft pain and are often prescribed following a [...] guidance from the Food and Drug Administration (www.fda.gov/Drugs/Reso urcesForYou). ? Visit www.cdc.gov/drugoverdos e to learn about the risks of opioids abuse and overdose. ? If you believe you may be struggling with addiction, tell your health career technical counselor and ask for guidance or call [facility]S National Helpline at 1-790-410-HELP. v Source: [place] Department (more content not included)... [facility] Influenza A&B Agon 2 Influenzae A Ag Negative Normal Negative [facility] Comment on above: Performed By: #### 1 [id number], [id number] ####[address] [place] [address] Influenzae B Ag Negative Normal Negative [facility] Comment on above: Result Comment: Test sensitivity and specificity vary for age group, specimen type, antigen types, and prevalence of disease. Test results must be evaluated in conjunction with other clinical data available to the physician. Individuals who received nasally administered Influenza A vaccine may have positive test results up to 3 days after vaccination. Performed By: #### 1 [id number], [id number] ####[address] [address] Insurance Correspondence Off iceon 05-15-2022 Insurance Correspondence Office [id number]#2.00 CD:127 Normal [facility] Physician Orderon 05-15-2022 Physician Order [id number]#1.0 0CD:127 Normal [facility] Rapid COVID Antigen ([facility])on 05-15-2022 Rapid COV Int NEG Ctl Pass Normal [facility] Comment on above: Performed By: #### 1 [id number], [id number] ####[address] [address] Rapid COV Int POS Ctl Pass Normal [facility] Comment on above: Performed By: #### 1 [id number], [id number] ####[address] [address] SARS-CoV+SARS-CoV-2 (COVID-19) Ag IA.rapid Ql (Resp) Not detected Normal Not Detected [facility] Comment on above: Result Comment: The Kngro[employer]itor? System for Rapid Detection of SARS-CoV-2 is [...] other viruses or pathogens; and, in the [facility], this test is only authorized for the duration of the declaration that circumstances exist justifying the authorization of emergency use of in vitro diagnostics for detection and/or diagnosis of the virus that causes COVID-19 under Section 564(b)(1) of the Act, 21 U.S.C. ? 360bbb-3(b)(1), unless the authorization is terminated or revoked sooner. Performed By: #### 1 [id number], [id number] ####[facility] [place] [address] XR Chest 2 Viewson 2 XR Chest [...] Bhavin Saucedo M.D. Transcribed by: MARY Technologist: NAASTASIIA Normal [facility] Consent for Treatmenton 04-19 Consent for Treatment [id number]#[id number] D:127 Normal [facility] MICRO OTHER TESTSOrdered By: Rojas Yen on 05-14-2022 Influenzae A Ag Negative (05/14/22 9:30 PM) Normal Negative [facility] Influenzae B Ag Negative (05/14/22 9:30 PM) Normal Negative [facility] Rapid COV Int NEG Ctl Pass (05/14/22 9:30 PM) Normal [facility] Rapid COV Int POS Ctl Pass (05/14/22 9:30 PM) Normal [facility] SARS-CoV+SARS-CoV-2 (COVID-19) Ag IA.rapid Ql (Resp) Not Detected (05/14/22 9:30 PM) Normal Not Detected [facility] Rapid COVID Antigen ([facility])on 05-14-2022 ADMITTED TO INTENSIVE CARE UNIT FOR CONDITION OF INTEREST:FIND:PT: NO Normal [facility] Comment on above: Performed By: #### 1 [id number], [id number] ####[place] [address] EMPLOYED IN A HEALTHCARE SETTING:FIND:PT: NO Normal [facility] Comment on above: Performed By: #### 1 [id number], [id number] ####[place] [address] FIRST TEST FOR CONDITION OF INTEREST:FIND:PT: Unknown Normal [facility] Comment on above: Performed By: #### 1 [id number], [id number] ####[place] [address] HAS SYMPTOMS RELATED TO CONDITION OF INTEREST:FIND:PT: YES Normal [facility] Comment on above: Performed By: #### 1 [id number], [id number] ####[facility] [address] [place] [address] HOSPITALIZED FOR CONDITION OF INTEREST:FIND:PT: NO Normal [facility] Comment on above: Performed By: #### 1 [id number], [id number] ####[facility] [address] [place] [address] STATUS:FIND:PT: NO Normal [facility] Comment on above: Performed By: #### 1 [id number], [id number] ####[facility] [address] [place] [address] RESIDES IN A CONGREGA CARE SETTING:FIND:PT: NO Normal [facility] Comment on above: Performed By: #### 1 [id number], [id number] ####[facility] [address] [place] [address] Ambulatory Visit Summaryon 1 07-12-2021 Ambulatory Visit Summary CHRISTIANO ZHENG :1995 Visit Date:05/12/2022 Ambulatory Visit Instructions Your Diagnosis Acute URI Gastroenteritis Your Care Team Attending Physician - Angela Pradhan Primary Care Physician - Rigoberto CHURCH, Lelia Palmer This Is Your Medications List brompheniramine/dextrom ethorphan/PSE (Bromfed DM oral syrup) Contact prescribing physician [...] Following Appointments Follow Up with Rigoberto CHURCH, Lelia Palmer, [facility] When: Where: [address] [place] [phone] Medications What How Much When Why Instructions New brompheniramine/ dextromethorphan/ PSE (Bromfed DM oral syrup) 10 Milliliter By Mouth Every 6 hours as needed for for cold symptoms Acute URI Duration: 7 Days Pickup at [facility]/pharmacy #[id number] Unchanged cyclobenzaprine (cyclobenzaprine 10 mg [...] physician if questions or concerns Pharmacy Information [facility]/pharmacy #[id number]: [address] [place], [place] [phone] Allergies Dilaudid (Hives) morphine (anaphylaxis) oxyCODONE (Nausea) [...] 1 years old. ? Live in a senior living. ? Travel on cruise ships. What are [...] replace imp (more content not included)... Normal [facility] Family Medicine Office/Clini c Jenniferon 05-12-2022 Family Medicine Office/Clinic Note Chief Complaint [...] Patient verbalized understanding of tx plan. Ordered: brompheniramine/dextrom ethorphan/PSE, 10 mL, Oral, q6hr for cold symptoms for 7 day(s), 280 mL, Refill(s) 0, [facility]/pharmacy #[id number], 178, cm, 05/12/22 11:45:00 EST, [...] With When Contact Information Rigoberto CHURCH, Lelia R, [facility] [address] [place] [phone] Additional Instructions: Patient Education Viral Gastroenteritis, Adult [...] q6hr, PRN (more content not included)... Normal [facility] Comment on above: Result Comment: Elec tronically Signed By: Angela Pradhan\Jurgenbr\Date and Time Signed: 05/12/22 12:04 EST Patient [...] 1 years old. ? Live in a senior living. ? Travel on cruise ships. What are [...] and water are not available, use hand tow motor mechanic. ? Make sure that all people in your household wash their hands well and often. ? Take swrg-npu-lygtxgq and prescription medicines only as told by [...] to person (more content not included)... Normal [facility] Coding Summary.on 05-10-2022 Coding Summary. CD:[id number] Gh0 bWw+PGhlYWQ+BU8TXILeI09 yfSStrU4MH6nQQE1OZNLWFY IIOW8PIO8meLW8ORynY5Wzk iAv VlzafQUcHF30UGl5TZQ9rZy dHJjurO2ooPGcP0p7LyMqQI 54dH18OVlbWSGoHnK8ZmOli jsgbWFy S7jgYjEcbOMdGwh+PHRhYmx lIHdpZHRoPScxMDAlJyBzdH fgUK1dWl4oMQBfEINsaTqxj HNlOiBj i2utFAWlBPjuBN7veXkqO9W lwAP0RBPyg9d6Sd81mXU+PH DwKCX5mQwrTMuih928JtMdh 4mkLRG1 eOMeZTdrBYV2C71hh1V6JEG dCCVeLFP5lIU6pV1nmRqtmd jtW4OcsGJiQjT1YIE0aBPan H8ykKyf udlusJ8yRwg+G43GUA8GPWJ ZZH1ISdv2N2YnRfmaiFQ+PC 50MDJkBA85mFBufPNby9iln Lz5VhTo VZByPGI4bTfsWLvlo7JuZBZ zV75riREsy4D2LDIjnPsroW AcGpNvkMM7yK3gAKadunnhj 2hvdzsn Eozen0cbyk21kI66P23pAAo vZWNuSZH7PRVdWVXnrEbpwa 5hnB7sOo2+KOvvi9snq6pmd Lz5RfLl SURkmlKbyEcsLOS4g1SgXs1 1U2VrdJozo7MpMqf8mk12oT Pgt6S2dEA5UVgnNZJfaI2tJ WxlZnQ6 JXQhTvGotF58tARyVMpaGv7 inPiynXjhMM9wCLLzvraoPW NrvB6tQZFogDYawTxsZA6nY TBpbjtm n211BmJxIXJ5LBZshTIqK2A gxD4lQrKsMBRgYVUeM2GaxN YaBRxzQ027QMvlVhT4FTCjo tFlS5Kh ODXvjJrbFuY1v2S8Vz8Wq9F lqgyaXDC0SEcrOMBtWsJkIg HmJhG4P6ObWty1CNCyfIizJ Q0gK2Er RHQewzkueenvoUZ1VZUbRAL kvN14yELxUNojMr4fm8C0w3 03GTMyONKpyA91Cr1xaHyiX TBwdCBU rS0wilvnn6emlupkIlTeVHV pDCi6HWx5QJZohAhhEePoQO X2KzW7QGA3jEOnhX0skHkqd hoxsI2f Oyc+Y09kuM5yMMK9MEI9hdn nSRAmnsOqLX59JK52E5GlDs wvdGFibGU+PGRpdiBzdHlsZ L3wPjQm k6okt6GvGRcjB9AiFLJmGHp aRzb5BGDtEUU5rOI5fE6gST HzJOolk8P5uSK7O1NbyrVfr i9wh5yo LTOdDZhqR54fpPMts5S6CSQ leVT3TETjaGoyBkEvjM71Rf c+UXBxkAmzg1PlLlvwo1vpl 9bmcAm2 LhAaNDLidqZwpGlmHUE8m5Z tQf46N44eFVwxLKNuWRByAS PvIEMkgXvsfe2nsN6iTb3+P GNvbCB3 uWR3fY6dPFUaZuK3GIwhS78 8TqGfaFCtHvwhm5yaw5yxlF h9MmWrUSVdtmZsgCawHKN0r 6KnUe24 B76nMDaaIUGuXZSmHQBrBGE ddMugks7xmC7yMr7+PC9jb2 oqbe04pF54bXP+UOBgSCX0d WxlPSdw VKUebM1pAKiuMbQ1RTTbFbB xfD51cCIwNIkuNs6itAjpiB prMP8pOAIatebwq048YuLcp 2xkIDEw dFIePXdpPFH0G83ja0K5KUO fEBTfMIG0hAK0lE1ldEvoso ogbGVmdDsgdmVydGljYWwtY JkyH364 IHRvcDsnPlBhdGllbnQgTmF fAFc3L0OmLvu3VIZasLbtLI 5guJKfCXedOm8hfMptvEefR O6tVZJi bugfm360VkIrn7zcPLBclQQ wMYutXWM3L54tz5Z8RUGoUC ZvHAX8mKC3mJ2poPssewpsk GVmdDsg vlMytLbbXKgmDBtvZ504FNA dcZjhLgYvraUrBBJxqJD6JY 23AC04aOOpj8E8qZU1F7BdJ GRpbmct xvlwbSC8EJKwYEQvyW81Zd5 swOawLm9qRBUrKDW8UFQciK NlX4HojZ5nShCrPWRaPRTpX 3RleHQt JZihB094XZzfIyC8PMQcyfV pA3FlAIGkmVogVgF0l7M3Fy 4VD7V4SP53AI87fPXee3O3l ZV7C7My XKKzaocekqrzaEH5ISZzWHR phE24Is1qlSaxWt9lUPRmHD H6CKZilDKrS0CapB2lRwUrV DAwMDAw I1MsrHHuLMpoG553MKqlEgZ 4EWUhenZbB4WnSXQgzPzwXz K3j7F8Hd8OTXv8TC42XJ83w NBuo7P4 bSL0V5RnZMZcgdlhpwglqWN 4ZDKnMTPljL64Np7rwYqqRf 0dYQElFPE3CMRoiSIdU5Tnh C3fDgQb XRDhZCMqB3FdmNLjWPutE39 9NBoyLtW4OFZqfrKpZ6NnBM XlkDfwJwE3k6W1Dj3INEYaI V32NWB6 uVI2XT79XM94D7UkBmrejLJ ibGU+PHRhYmxlIHdpZHRoPS bpLNCcGsQxdWmiDB9pMo7sC GVyLWNv fZssuDPiDgIdx5uzGQNcKTg iVG4rlVouM7IyaHQ6VYEvb5 f0Ao90R33sY2XgeXN+PGNvb SN8gZQ9 zK9fNpUvGcT9BDvwO109QuY kmROwWenge8jhb1lraIf2Kn E2DPTjzhTvrKnuNXP7t1GxY p40G16h IHdpZHRoPSIxNSUiIHZhbGl rin7eaZ1eZb2+PNKkgOT6wB K5qC6tTcMjWlP7XLffY072T nRvcCIv Lssyw8ybg8mkyVr0FfXfGOH amsBmfZhwYEY7p1LcKx15L7 OiqRsky9GnHew9gb10zLKmc 6D5yNV5 T7VdHMNpqfpdnZBpfRebPX7 bJESaiqusFIAuiR3uTJOzD9 u7VpRdRqT0TUjvE9LyqyJ5J DEwcHQg RUssIHJ2S61us6S1JCOsCYY cMDO4jJA0cI0exVrelwizhQ VmdDsgdmVydGljYWwtYWxpZ 246IHRv hMdsYCAfzL0tLJZsgYGhgYe dBY3dJVCcqqnrSziJBlpeKM mYOaMHDF36TV02fKFag3T7g SR3K4Jz BSOfppjifgogmSX5CNHgNYG anX59hPEhIGxwMe1es9S1r3 33KHEhQBFbvV69Tj0nuDjeX TBwdCBU vF9cjwuvs4lmehrqWpTxSVY eWZa1TGh7XTCqrIdeOeVeWG Y5PdL2YUI3vUPlnY0poChuv kbwoV8v Oyc+TMZxLrJaLHe0BQgxhPV +HOGfPKP4nUkoSMscLGLgfI 3iMSSuV6e9KmSgBjF3XIryW 3BhZGRp zkchHf69fZ4rOeKcHwJ4ALl fM9DdyjD0AQVkrXAlGDsvYS H6Z09ub4W5KEYrNIJoYMR7i ET2bW2z bGlnbjogbGVmdDsgdmVydGl kNZuzLCezP427SCKzpZkmTt K2RVbfCYLxUN04ZC79rRHvk 6M7iAY4 Q8VxYQWemxhqndvotOY0VFK xVOJldT52wKCzHSqsIo3pr7 C8h731WWXyLDPlxY05Rx1qk DogMTBw tNUGeX4qwcpwu9thxhluRqO yAWFiSBk9VSu8XOTtjFnsJg JiJYK6UrM8AWC5bCRfaO5nn Glnbjog lK8hAsb+TWFsZTwvdGQ+PHR sIKT1nOzzCWgtGMLxyQ9pPB YxO4v2KoCgGdH2RXvcH8DvU GRpbmct Ym76eC0pTsEkCjW0DEeuD8Z gcbU8VDVdsEJcUPbtRCE1K9 0yy0B4XSRqULCqYYR6sIF8r A2ckJhq bjogbGVmdDsgdmVydGljYWw pCWflK822NRWjxDdqGxHhrX 4gTWFuYWdlbWVudDwvdGQ+P W64nl90 D7BtUcpkAoo6JBTuFDK7mQI 8oF8wFIZsOYtgn8C8kWM8U2 UcpgUqol8fb0miCEJvTKqdG 29sbGFw r0Q1EOSjnOE6QEEnuCabLsS ynL72Xmu+FLGkcDpbk5DtJt oga1sff7egjPb0DqEwSPEdn mFsaWdu BZF7c0JzPo21E83pSDcbFPP eFVOmLCAtCVAamAyuod9phW 9wIi8+GPQyiXL5xCS5kZ1qZ jAlIiB2 OQsiN060CyCwqPVjHfbno6e re9qdvBn3YhGdAJTmjqLykV ozJWM0e5OdUg95F6FlmXulz 6StGgj9 gm78tBPay5U9qNV1Q5VkYMU ilgfvjMYknGjkUU5eRDGiwx juFIEoxV0zNNPsI3z0JvGhE sC5LSyl L1IkieB7QTNtjIFaXUEvkMT JiU9dcodta6eteyyoRlFlXH XqUMc3GIz8JFHxsDstStYsK KE5MaA7 LCK4qRQbzY9yaAzgcpceoY1 wOyc+XZo8j4gkhFTmGZ5azE N0IC36RC15rYXaq5F5pQA2H 3BhZGRp oltbphdvzHO9AQTcZFOltX0 2Rb3dmAhyAd6wNNIwWOW7IL VozHEjM9EnwS8pAeGfGMOiW TUxZ7Iu rJChGBvwN155IVppIeC9XBZ jrzXsF3HtTUSyqDqeQbM1c6 S8Ob3CHV69IM87QT22jOCsu 1G4uAP7 Y4ZdXMTzuvisxwthfQV3RLW uWUTndA65Oz6idExpJa9oOO TbBBE7CKTxpJTdZ7ZxoU9hW iAjMDAw QUJoX5LubRVdFTlhD874UIq jHeC4XWDjctCkS0AzCGJtoF rdXuO6x2H4Tv6HSt54KE72A A27uEPh o7M6bSU2G6GnUPOrgcfiyqw ytON2ONCmLEWiwA89Iw9pqM fjBh3hJFGrIUQ6WWZfkWTiP 1AkgJ4c YzDuSKQmRKXgC2WxtSKbTBw xV721BJweTwN4QECzzbIcZ1 MhMOXwbXliDcP8b8L3Vf9ML Xllcjo8 J9RzVxnpcOS+CP96JWTcGY5 9nWPscTTci3crbXn2FtKaZQ CyGOR8iGeeVEtnj2AzDHLhK 29sbGFw c2U6 (more content not included)... Normal [facility] Consent for Treatmenton 04-19 Consent for Treatment [id number]#1.00C D:127 Normal [facility] Consultation Noteon 05-08-20 Consultation Note Patient: CHRISTIANO ZHENG Age: 26 years Sex: Male : 1995 Associated Diagnoses: None Author: Sen Burgess MD Basic Information Accompanied by: No one. Source [...] full course of physical therapy here at [facility] within the past 6 months without lasting [...] All Problems (Selected) Anxiety / SNOMED CT 57736271 / Confirmed BMI 23.0-23.9, adult / SNOMED CT 0645590116 / Confirmed Cervical radiculopathy / SNOMED CT 575432787 / Confirmed Cervical spondylosis / SNOMED CT 8007560237 / Confirmed Constipation / SNOMED CT 14059882 / Confirmed after GB removed Difficulty swallowing / SNOMED CT 13720289 / Confirmed Enlarged tonsils / SNOMED CT 208615362 / Confirmed Family history unknown / SNOMED CT 5595924640 / Confirmed Former smoker / SNOMED CT 09958441 / Confirmed 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 / Confirmed Hereditary spherocytosis / SNOMED CT 07815587 / Confirmed Hospital discharge follow-up / SNOMED CT 3726885041 / Confirmed Insomnia / SNOMED CT 339438855 / Confirmed Medial epicondylitis / SNOMED CT 43997195 / Confirmed Muscle spasms of neck / SNOMED CT 2224279984 / Confirmed Non-smoker / SNOMED CT 83418430 / Confirmed PTSD (post-traumatic stress disorder) / SNOMED CT 83148821 / Confirmed Screening for cardiovascular condition / SNOMED CT 117791315 / Confirmed Splenomegaly / SNOMED CT 36683934 / Confirmed Stomal ulcer / SNOMED CT 9402361843 / Confirmed Testicle lump / SNOMED CT 609663099 / Confirmed Histories Past Medical History: Active Constipation (70328762) Comments: 11/13/2019 EDT 15:27 EDT - Rqauel Dickinson RN after GB removed Resolved Cholelithiasis (727373198): Resolved. Comments: 02/09/2012 EDT 1:40 EDT - Afia Garza RN 2010 Sleep apnea (552968426): Resolved. Family History: Clotting disorder Mother Hyperthyroidism Sister Procedure history: Cholecystectomy. Comments: 02/09/2012 1:39 EDT - Afia Garza RN 2010 Hernia repair (41027530). Splenectomy (546446486). Social History Social & Psychosocial Habits Alcohol [...] (MAY 08 14:16) SBP 126 mmHg (MAY 08:16) DBP 77 mmHg (MAY 08:16) Weight 79.8 kg (MAY 08:16) BMI 25.19 (MAY 08 14:16) Constitutional: No acute distress. Well-nourished. Well-developed. Eyes: [...] No pain wi (more content not included)... [facility] Comment on above: Result Comment: Elec tronically Signed By: Jenifer BOGGS, Sen Dodson\.casimiro\Date and Time Signed: 05/08/22 14:44 EST HIPAA Forms Officeon 022 HIPAA Forms Office [id number]#1.00 CD:127 [facility] Legal Correspondence Officeo n 05-08-2022 Legal Correspondence Office [id number]#1.00 CD:127 Normal [facility] Legal Correspondence Office [id number]#1.00 CD:127 Normal [facility] Office/Clinic Note-Physician on 05-08-2022 Office/Clinic Note-Physician [id number]#1.00 CD:127 Normal [facility] Patient Correspondenceon Patient Correspondence [id number]#1.00 CD:127 Normal [facility] Patient Correspondence [id number]#1.00 CD:127 Normal [facility] Patient Correspondence [id number]#1.00 CD:127 Normal [facility] Patient Correspondence [id number]#1.00 CD:127 Normal [facility] Patient Correspondence [id number]#1.00 CD:127 Normal [facility] Patient History Officeon Patient History Office [id number]#1.00 CD:127 Normal [facility] Progress Noteon 06-28-2020 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 Hi, Thank you. We will cancel the test for you. Have a nice rest of your day. Warm regards, Shelbi Arceo Director Long Term Care, [employer]. [address] [place] [address], [address] [place] [address] P: Ext: 2001 F: [email or web address] Original Message From: Laura Tracy [ ] Sent: 06/28/2020 11:32 AM To: @[employer] Cc: [email or web address] Subject: RE: Order ID [id number] - Test hasn't started Yes, thank you Laura Tracy MD Clinical [employer] [place] [address] [email or web address] From: Shelbi Arceo Sent: Sunday, June 28, 2020 2:32 PM To: Laura Tracy Cc: [email or web address] Subject: Order ID [id number] - Test hasn't started This email is from an external source. Ellie, Thank you for the update. In that case, would you like to cancel the test? Warm regards, Shelbi Arceo Director Long Term Care, [employer]. [address] [place] [address], [place] [address] P: Ext: 2001 F: [email or web address] Original Message From: Laura Tracy [[email or web address]] Sent: 06/28/2020 6:49 AM To: [email or web address] Cc: [email or web address] Subject: RE: Order ID [id number] - Test hasn't started I have tried to reach him several times and he has not called me back. I think we can assume he is not moving forward with testing. Laura Tracy MD Clinical [place] [address] [email or web address] From: Shelbi Arceo Sent: Sunday, June 14, 2020 6:28 PM To: Laura Tracy Cc: [email or web address] Subject: RE: Order ID [id number] - Test hasn't started This email is from an external source. Ellie, Thank you for the update. We will wait for your response to see what we should do to move forward. Have a happy new year! Shelbi Vazquez Specialist, [employer]. [address] [place] [address], [address] [place] [address] P: Ext: 2001 F: [email or web address] om Original Message From: Laura Tracy [ ] Sent: 06/14/2020 10:34 AM To: @[employer] Cc: [email or web address] Subject: RE: Order ID [id number] - Test hasn't started Ellie, I ve called and left him a message asking him to call back. I will let you know if/when I hear from him. Happy New Year! Laura Tracy MD Clinical [employer] [address] [place] [address] [email or web address] From: Laura Tracy Sent: Friday, June 05, 2020 9:07 AM To: Shelbi Arceo Cc: [email or web address] Subject: Re: Order ID [id number] - Test hasn't started I am out of the office until 06/14 and will look into this when I return. Thanks! Laura Tracy MD Clinical Genetics [facility] From: Shelbi Arceo Sent: Thursday, June 04, 2020 7:10 PM To: Laura Tracy Cc: [email or web address] Subject: Order ID [id number] - Test hasn't started This email is from an external source. Jose Albertochay, I hope this email finds you well. [...] appreciated. Thank you. Patient is Morelia 1995 Ste[address] hogan, Shelbi Arceo Director Long Term Care, [employer]. [address] [place] [address], [address] [place] [address] P: Ext: 2001 F: [email or web address] ref:_[email or web address]:ref [facility] Progress Noteon 04-13-2020 [employer] Operator Authentication Interface Message Text This [...] A three generation pedigree was obtained by Mila Crawford LG at his 's genetic counseling visit. Relevant [...] spleen; splenomegaly may become evident anytime from agricultural engineering technologist to adulthood. Individuals with hereditary spherocytosis may [...] Dopplers, for added reassurance. Recommendations and Plan: [employer] Red Blood Cell Membrane Disorders Panel; will have saliva sample sent to home address; Charles will contact [facility] within 72 hours of receiving his sample if estimated [id number] is >$100. Follow up appointment: Will call [facility] with results of the above Counseling and/or coordination of care (face to face) was greater than 15 minutes which is more than the 50% of the total time of 20 minutes spent on the encounter. [facility] CBCon 02-06-2020 Erythrocyte distribution width (RBC) [Ratio] 14.7 % High 11.5 - 14.5 [facility] Comment on above: Performed By: #### C BC ####[id number] [place] [address] Hematocrit (Bld) [Volume fraction] 44.0 % Normal 41.0 - 52.0 [facility] Comment on above: Performed By: #### C BC ####[id number] [place] [address] Hemoglobin (Bld) [Mass/Vol] 13.1 g/dL Low 13.5 - 17.5 [facility] Comment on above: Performed By: #### C BC ####[id number] [place] [address] MCHC (RBC) [Mass/Vol] 29.8 g/dL Low 32.0 - 36.0 [facility] Comment on above: Performed By: #### C BC ####[id number] [place] [address] MCV (RBC) [Entitic vol] 96 fL Normal 80 - 100 [facility] Comment on above: Performed By: #### C BC ####[id number] [place] [address] Nucleated RBC/100 WBC (Bld) [Ratio] 0.0 /100 WBC Normal 0.0-0.0 [facility] Comment on above: Performed By: #### C BC ####[id number] [place] [address] Platelets (Bld) [#/Vol] 1277 10*3/uL High 150 - 450 [facility] Comment on above: Result Comment: Plat elet count verified by smear review. Performed By: #### C BC ####[id number] [place] [address] RBC (Bld) [#/Vol] 4.56 x10E12/L Normal 4.50 - 5.90 [facility] Comment on above: Performed By: #### C BC ####[id number] [place] [address] WBC (Bld) [#/Vol] 10.4 10*3/uL Normal 4.4 - 11.3 [facility] Comment on above: Performed By: #### C BC ####[id number] [place] [address] BASIC METABOLIC PANELon 01-16-2019 Anion gap [Moles/Vol] 15 mmol/L Normal 10 - 20 [facility] Comment on above: Performed By: #### B MP ####[id number] [place] [address] Calcium [Mass/Vol] 8.8 mg/dL Normal 8.6 - 10.6 [facility] Comment on above: Performed By: #### B MP ####[id number] [place] [address] Chloride [Moles/Vol] 104 mmol/L Normal 98 - 107 [facility] Comment on above: Performed By: #### B MP ####[id number] [place] [address] Creatinine [Mass/Vol] 0.55 mg/dL Normal 0.50 - 1.30 [facility] Comment on above: Performed By: #### B MP ####[id number] [place] [address] GFR- AM. >60 Normal >60 [facility] Comment on above: Result Comment: CALC ULATIONS OF ESTIMATED GFR ARE PERFORMED USING THE MDRD STUDY EQUATION FOR THE IDMS-TRACEABLE CREATININE METHODS. CLIN CHEM 2007;53:766-72 Performed By: #### B MP ####[id number] [place] [address] GFR-NON AM. >60 Normal >60 [facility] Comment on above: Performed By: #### B MP ####[id number] [place] [address] Glucose [Mass/Vol] 89 mg/dL Normal 74 - 99 [facility] Comment on above: Performed By: #### B MP ####[id number] [place] [address] HCO3 (Bld) [Moles/Vol] 23 mmol/L Normal 21 - 32 [facility] Comment on above: Performed By: #### B MP ####[id number] [place] [address] Potassium [Moles/Vol] 3.9 mmol/L Normal 3.5 - 5.3 [facility] Comment on above: Performed By: #### B MP ####[id number] [place] [address] Sodium [Moles/Vol] 138 mmol/L Normal 136 - 145 [facility] Comment on above: Performed By: #### B MP ####[id number] [place] [address] Urea nitrogen [Mass/Vol] 11 mg/dL Normal 6 - 23 [facility] Comment on above: Performed By: #### B MP ####[id number] [place] [address] CBCon 01-28-2020 Erythrocyte distribution width (RBC) [Ratio] 14.5 % Normal 11.5 - 14.5 [facility] Comment on above: Performed By: #### C BC ####[id number] [place] [address] Hematocrit (Bld) [Volume fraction] 34.1 % Low 41.0 - 52.0 [facility] Comment on above: Performed By: #### C BC ####[id number] [place] [address] Hemoglobin (Bld) [Mass/Vol] 10.7 g/dL Low 13.5 - 17.5 [facility] Comment on above: Performed By: #### C BC ####[id number] [place] [address] MCHC (RBC) [Mass/Vol] 31.4 g/dL Low 32.0 - 36.0 [facility] Comment on above: Performed By: #### C BC ####[id number] [place] [address] MCV (RBC) [Entitic vol] 93 fL Normal 80 - 100 [facility] Comment on above: Performed By: #### C BC ####[id number] [place] [address] Nucleated RBC/100 WBC (Bld) [Ratio] 0.2 /100 WBC Normal 0.0-0.0 [facility] Comment on above: Performed By: #### C BC ####[id number] [place] [address] Platelets (Bld) [#/Vol] 742 10*3/uL High 150 - 450 [facility] Comment on above: Performed By: #### C BC ####[id number] [place] [address] RBC (Bld) [#/Vol] 3.65 x10E12/L Low 4.50 - 5.90 [facility] Comment on above: Performed By: #### C BC ####[id number] [place] [address] WBC (Bld) [#/Vol] 16.1 10*3/uL High 4.4 - 11.3 [facility] Comment on above: Performed By: #### C BC ####[id number] [place] [address] Daily Progress Note-Surgeryo n 01-28-2020 Daily Progress [...] hematemesis. Objective Data: Objective Information: T PRBPSpO2 Value36.06871228/39395% Date/Time01/27 11:::: 11:28 Range(36.1C - 37.4C ) (84 - 103 ) (18 - 18 ) (120 - 134 )/ (65 - 81 ) (93% - 100% ) Highest temp of 37.4 C was recorded at 01/26 19:35 Pain reported at 01/27 8:21: 2 = Mild ---- Intake and Output ----- Mn/Dy/Year TimeIntakeOutputNet Jan 28, 2020 6:00 [id number] Jan 27, 2020 10:00 [id number] Jan 27, 2020 2:00 [id number] The Intake and Output Totals for the last 24 hours are: IntakeOutputNet [id number] Physical Exam: Constitutional: Well developed, awake/alert/oriented x3, [...] Cl- BUN / 138 104 11 / --------- Glucose ---- 89 K+ HCO3- Creat \ 3.9 23 0.55 \ Calcium : 8.8 Anion Gap : 15 Assessment and Plan: Comorbidities: Comorbidity: Other Assessment: MARCE CHRISTIANO ALEX is a 24 year old Male who is Hospital Day # 8 and POD #7 for 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 Hemodynamically stable following embolization. Pt had ileus, which has since resolved. Occasional emesis. Plan Neuro: Lidocaine 5% transdermal (1 patch/24hrs) Fentanyl TOMBSTONE ERECTOR -> Tramadol CV: Continue monitoring hemodynamic status [...] have been edited accordingly. Jluis Rinaldi MD [facility] General Surgery p: [phone] Signature/Cosignature/A ttestation: Note Completion: I am a: Medical Student/Acting Driver/Refuse Collector Medical Student [place], or a resident under my supervision, was [...] this note. I personally evaluated the patient [id number] Electronic Signatures: Jluis Rinaldi (Resident)) (Signed 28-Jan-2020 16:13) Authored: Subjective Data, Assessment and Plan, Signature/Cosignature/A ttestation Co-Signer: Service, Subjective Data, Objective Data, Assessment and Plan, Signature/Cosignature/A ttestation Eagle Mcmanus) (Signed 29-Jan-2020 08:10) Authored: Signature/Cosignature/A ttestation Co-Signer: Subjective Data, Assessment and Plan, Signature/Cosignature/A ttestation Tomas Quinteros (MED STUD) (Signed 28-Jan-2020 13:04) Authored: Service, Subjective Data, Objective Data, Assessment and Plan, Signature/Cosignature/A ttestation Last Updated: 29-Jan-2020 08:10 by Eagle Mcmanus) Normal [facility] BASIC METABOLIC PANELon - Anion gap [Moles/Vol] 19 mmol/L Normal 10 - 20 [facility] Comment on above: Order Comment: CRIT GLU CALLED RB TO VANESSA CHAVEZ, 01/27/2020 14:52 Performed By: #### B MP ####[id number] [place] [address] Calcium [Mass/Vol] 8.9 mg/dL Normal 8.6 - 10.6 [facility] Comment on above: Order Comment: CRIT GLU CALLED RB TO VANESSA CHAVEZ, 01/27/2020 14:52 Performed By: #### B MP ####[id number] [place] [address] Chloride [Moles/Vol] 103 mmol/L Normal 98 - 107 [facility] Comment on above: Order Comment: CRIT GLU CALLED RB TO VANESSA CHAVEZ, 01/27/2020 14:52 Performed By: #### B MP ####[id number] [place] [address] Creatinine [Mass/Vol] 0.54 mg/dL Normal 0.50 - 1.30 [facility] Comment on above: Order Comment: CRIT GLU CALLED RB TO VANESSA CHAVEZ, 01/27/2020 14:52 Performed By: #### B MP ####[id number] [place] [address] GFR- AM. >60 Normal >60 [facility] Comment on above: Order Comment: CRIT GLU CALLED RB TO VANESSA CHAVEZ, 01/27/2020 14:52 Result Comment: CALC ULATIONS OF ESTIMATED GFR ARE PERFORMED USING THE MDRD STUDY EQUATION FOR THE IDMS-TRACEABLE CREATININE METHODS. CLIN CHEM 2007;53:766-72 Performed By: #### B MP ####[id number] [place] [address] GFR-NON AM. >60 Normal >60 [facility] Comment on above: Order Comment: CRIT GLU CALLED RB TO VANESSA CHAVEZ, 01/27/2020 14:52 Performed By: #### B MP ####[id number] [place] [address] Glucose [Mass/Vol] 38 mg/dL Critically low 74 - 99 [facility] Comment on above: Order Comment: CRIT GLU CALLED RB TO VANESSA CHAVEZ, 01/27/2020 14:52 Result Comment: CRIT GLU CALLED RB TO VANESSA CHAVEZ, 01/27/2020 14:52 Performed By: #### B MP ####[id number] [place] [address] HCO3 (Bld) [Moles/Vol] 21 mmol/L Normal 21 - 32 [facility] Comment on above: Order Comment: CRIT GLU CALLED RB TO VANESSA CHAVEZ, 01/27/2020 14:52 Performed By: #### B MP ####[id number] [place] [address] Potassium [Moles/Vol] 4.0 mmol/L Normal 3.5 - 5.3 [facility] Comment on above: Order Comment: CRIT GLU CALLED RB TO VANESSA CHAVEZ, 01/27/2020 14:52 Result Comment: MILD HEMOLYSIS DETECTED. The result may be falsely elevated due to hemolysis or other interferents. Clinical correlation is recommended. Repeat testing may be considered. Performed By: #### B MP ####[id number] [place] [address] Sodium [Moles/Vol] 139 mmol/L Normal 136 - 145 [facility] Comment on above: Order Comment: CRIT GLU CALLED RB TO VANESSA CHAVEZ, 01/27/2020 14:52 Performed By: #### B MP ####[id number] [place] [address] Urea nitrogen [Mass/Vol] 13 mg/dL Normal 6 - 23 [facility] Comment on above: Order Comment: CRIT GLU CALLED RB TO VANESSA CHAVEZ, 01/27/2020 14:52 Performed By: #### B MP ####[id number] [place] [address] CBCon 01-27-2020 Erythrocyte distribution width (RBC) [Ratio] 14.5 % Normal 11.5 - 14.5 [facility] Comment on above: Performed By: #### C BC ####[id number] [place] [address] Hematocrit (Bld) [Volume fraction] 32.4 % Low 41.0 - 52.0 [facility] Comment on above: Performed By: #### C BC ####[id number] [place] [address] Hemoglobin (Bld) [Mass/Vol] 10.3 g/dL Low 13.5 - 17.5 [facility] Comment on above: Performed By: #### C BC ####[id number] [place] [address] MCHC (RBC) [Mass/Vol] 31.8 g/dL Low 32.0 - 36.0 [facility] Comment on above: Performed By: #### C BC ####[id number] [place] [address] MCV (RBC) [Entitic vol] 93 fL Normal 80 - 100 [facility] Comment on above: Performed By: #### C BC ####[id number] [place] [address] Nucleated RBC/100 WBC (Bld) [Ratio] 0.3 /100 WBC Normal 0.0-0.0 [facility] Comment on above: Performed By: #### C BC ####[id number] [place] [address] Platelets (Bld) [#/Vol] 625 10*3/uL High 150 - 450 [facility] Comment on above: Performed By: #### C BC ####[id number] [place] [address] RBC (Bld) [#/Vol] 3.49 x10E12/L Low 4.50 - 5.90 [facility] Comment on above: Performed By: #### C BC ####[id number] [place] [address] WBC (Bld) [#/Vol] 16.4 10*3/uL High 4.4 - 11.3 [facility] Comment on above: Performed By: #### C BC ####[id number] [place] [address] Daily Progress Note-Interven tional Radiology/Radiologyon 01-27-2020 Daily Progress Note-Interventional Radiology/Radiology Service: Interventional Radiology/Radiology Subjective Data: CHRISTIANO ZHENG is a 24 year old Male who is Hospital Day # 7 and POD #6 for 1. laparoscopic splenectomy. Patient reports scant leakage from right groin IR procedure site. Nausea improved. Heartburn, hiccups resolved. Denies fever, chills. Objective Data: Objective Information: T PRBPSpO2 [id number]/7997% Date/Time01/26 11: 11: 11: 11: 11:42 Range(36.2C - 36.9C ) (87 - 96 ) (18 - 19 ) (134 - 155 )/ (78 - 90 ) (96% - 100% ) Highest temp of 36.9 C was recorded at 01/25 15:33 Pain reported at 01/26 2:27: 3 = Mild ---- Intake and Output ----- Mn[facility]Dy/[facility] Jan 27, 2020 6:00 [id number] Jan 26, 2020 10:00 [id number] Jan 26, 2020 2:00 [id number] The Intake and Output Totals for the last 24 hours are: [facility]White [facility] [id number] Physical Exam: Constitutional: Well developed, resting in [...] dry, without jaundice Medication: Medications: Continuous Medications --------- No continuous medications are active Scheduled Medications --------- 1. Bisacodyl Rectal: 10 mg Rectal Daily [...] patch TransDermal Every 72 Hours PRN Medications --------- 1. diphenhydrAMINE Injectable: 25 mg IntraVenous Push Every 6 Hours 2. Naloxone Injectable: 0.2 mg IntraVenous Push Once 3. Ondansetron Injectable: 4 mg IntraVenous Push Every 4 Hours 4. Promethazine IV Piggy Back: 12.5 mg IntraVenous Piggyback Every 6 Hours Currently Suspended Medications --------- 1. Heparin SubCutaneous: 5000 unit(s) SubCutaneous Every [...] resolution of active arterial extravasation. Angio Add //Abd/Pel [Jan 23 2020 12:21PM] Assessment and Plan: [...] - IR signing off IR Nurse Coordinator [id number] IR PA / resident [id number] Electronic Signatures: Ann Alfaro (PAC) (Signed 27-Jan-2020 12:40) Authored: Service, Subjective Data, Objective Data, Assessment and Plan, Signature/Cosignature/A ttestation Last Updated: 27-Jan-2020 12:40 by Ann Alfaro (PAC) Normal [facility] Daily Progress Note-Surgeryo n 01-27-2020 Daily Progress Note-Surgery Service: Surgery Subjective Data: CHRISTIANO ZHENG is a 24 year old Male who is Hospital Day # 7 and POD #6 for 1. laparoscopic splenectomy. Patient seen and examined at bedside. Patient had episode of emesis in the evening yesterday but nausea has improved. Pain has improved with other medications; fentanyl TOMBSTONE ERECTOR reduced yesteray. Reflux improved. No hiccups. Walked yesterday. Scrotal swelling still present but reduced a bit. Objective Data: Objective Information: T PRBPSpO2 [id number]/8896% Date/Time01/26 7: 7: 7: 7: 7:35 Range(36.2C - 36.9C ) (89 - 96 ) (18 - 19 ) (128 - 155 )/ (75 - 90 ) (96% - 100% ) Highest temp of 36.9 C was recorded at 01/25 15:33 Pain reported at 01/26 2:27: 3 = Mild ---- Intake and Output ----- Mn/Dy/[facility]Out[facility] Jan 27, 2020 6:00 [id number] Jan 26, 2020 10:00 [id number] Jan 26, 2020 2:00 [id number] The Intake and Output Totals for the last 24 hours are: IntakeOutputNet [id number] Physical Exam: Constitutional: Well developed, no acute [...] on post-op CT scan. Plan: Neuro: -fentanyl TOMBSTONE ERECTOR spaced out (25mcg/hr), robaxin, lidocaine patches for [...] function Discussed with Dr. Martina Rinaldi MD [place] - General Surgery p: [phone] Signature/Cosignature/A ttestation: Note Completion: I am a: Resident/Fellow Attending [...] the note. I personally evaluated the patient [id number] Comments/ Additional Findings Patient is improving. will wean pain meds encourage diet and mobilzation Electronic Signatures: Jluis Rinaldi (Resident)) (Signed 27-Jan-2020 08:41) Authored: Service, Subjective Data, Objective Data, Assessment and Plan, Signature/Cosignature/A ttestation Eagle Mcmanus) (Signed 28-Jan-2020 07:34) Authored: Signature/Cosignature/A ttestation Co-Signer: Service, Subjective Data, Objective Data, Assessment and Plan, Signature/Cosignature/A ttestation Last Updated: 28-Jan-2020 07:34 by Eagle Mcmanus) Normal [facility] GLUCOSE-POCTon 01-27-2020 Glucose [Mass/Vol] 101 mg/dL High 74 - 99 [facility] Comment on above: Performed By: #### G DAPHNE ####[id number] [place] [address] MAGNESIUMon 01-27-2020 Magnesium [Mass/Vol] 2.64 mg/dL High 1.60 - 2.40 [facility] Comment on above: Performed By: #### M G ####[id number] [place] [address] SURF MARKERS 9-15,PATH REVon 01-27-2020 PATH REV.9-15 MARKERS CAMI Normal [facility] Comment on above: Result Comment: By h er/his signature above, the Pathologist listed as making the final interpretation certifies that she/he has personally reviewed this case. Performed By: #### P R192 ####[id number] [place] [address] SURFACE MARKERS LYMPHOMA CUT DOWN PANELon 01-27-2020 CD19 57 % of Lymph Normal [facility] Comment on above: Result Comment: Poly clonal [place]/Lambda= 29:32 Performed By: #### L CPAN ####[id number] [place] [address] COMMENT see below Normal [facility] Comment on above: Result Comment: T ce lls are polyclonal by TRBC1 staining. Performed By: #### L CPAN ####[id number] [place] [address] DIAGNOSIS SEE BELOW Normal [facility] Comment on above: Result Comment: No i mmunophenotypic evidence of a lymphoproliferative disorder. No discrete blast population. Performed By: #### L CPAN ####[id number] [place] [address] NOTE SEE BELOW Normal [facility] Comment on above: Result Comment: Clin ical and morphologic correlation is suggested. Performed By: #### L CPAN ####[id number] [place] [address] CD4 14 % of Lymph Normal [facility] Comment on above: Performed By: #### L CPAN ####[id number] [place] [address] CD8 17 % of Lymph Normal [facility] Comment on above: Performed By: #### L CPAN ####[id number] [place] [address] CELL COUNT 83.53 x10E9/L Normal [facility] Comment on above: Performed By: #### L CPAN ####[id number] [place] [address] Granulocytes/100 WBC (Bld) 6 % Normal [facility] Comment on above: Performed By: #### L CPAN ####[id number] [place] [address] Lymphocytes/100 WBC (Bld) 61 % Normal [facility] Comment on above: Performed By: #### L CPAN ####[id number] [place] [address] Monocytes/100 WBC (Bld) 2 % Normal [facility] Comment on above: Performed By: #### L CPAN ####[id number] [place] [address] NK 12 % of Lymph Normal [facility] Comment on above: Performed By: #### L CPAN ####[id number] [place] [address] NUMBER OF CELLS COLLECTED 100,000 per tube Normal [facility] Comment on above: Performed By: #### L CPAN ####[id number] [place] [address] BASIC METABOLIC PANELon 08- 0-2019 Anion gap [Moles/Vol] 16 mmol/L Normal 10 - 20 [facility] Comment on above: Performed By: #### B MP ####[id number] [place] [address] Calcium [Mass/Vol] 9.2 mg/dL Normal 8.6 - 10.6 [facility] Comment on above: Performed By: #### B MP ####[id number] [place] [address] Chloride [Moles/Vol] 102 mmol/L Normal 98 - 107 [facility] Comment on above: Performed By: #### B MP ####[id number] [place] [address] Creatinine [Mass/Vol] 0.54 mg/dL Normal 0.50 - 1.30 [facility] Comment on above: Performed By: #### B MP ####[id number] [place] [address] GFR- AM. >60 Normal >60 [facility] Comment on above: Result Comment: CALC ULATIONS OF ESTIMATED GFR ARE PERFORMED USING THE MDRD STUDY EQUATION FOR THE IDMS-TRACEABLE CREATININE METHODS. CLIN CHEM 2007;53:766-72 Performed By: #### B MP ####[id number] [place] [address] GFR-NON AM. >60 Normal >60 [facility] Comment on above: Performed By: #### B MP ####[id number] [place] [address] Glucose [Mass/Vol] 90 mg/dL Normal 74 - 99 [facility] Comment on above: Performed By: #### B MP ####[id number] [place] [address] HCO3 (Bld) [Moles/Vol] 24 mmol/L Normal 21 - 32 [facility] Comment on above: Performed By: #### B MP ####[id number] [place] [address] Potassium [Moles/Vol] 4.2 mmol/L Normal 3.5 - 5.3 [facility] Comment on above: Result Comment: MILD HEMOLYSIS DETECTED. The result may be falsely elevated due to hemolysis or other interferents. Clinical correlation is recommended. Repeat testing may be considered. Performed By: #### B MP ####[id number] [place] [address] Sodium [Moles/Vol] 138 mmol/L Normal 136 - 145 [facility] Comment on above: Performed By: #### B MP ####[id number] [place] [address] Urea nitrogen [Mass/Vol] 13 mg/dL Normal 6 - 23 [facility] Comment on above: Performed By: #### B MP ####[id number] [place] [address] CBCon 01-26-2020 Erythrocyte distribution width (RBC) [Ratio] 14.8 % High 11.5 - 14.5 [facility] Comment on above: Performed By: #### H APTO #### [facility] [address] [place] [address] Hematocrit (Bld) [Volume fraction] 34.8 % Low 41.0 - 52.0 [facility] Comment on above: Performed By: #### H APTO #### [facility] [address] [place] [address] Hemoglobin (Bld) [Mass/Vol] 10.2 g/dL Low 13.5 - 17.5 [facility] Comment on above: Performed By: #### H APTO #### [facility] [address] [place] [address] MCHC (RBC) [Mass/Vol] 29.3 g/dL Low 32.0 - 36.0 [facility] Comment on above: Performed By: #### H APTO #### [facility] [address] [place] [address] MCV (RBC) [Entitic vol] 105 fL High 80 - 100 [facility] Comment on above: Performed By: #### H APTO #### [facility] [address] [place] [address] Nucleated RBC/100 WBC (Bld) [Ratio] 0.3 /100 WBC Normal 0.0-0.0 [facility] Comment on above: Performed By: #### H APTO #### [facility] [address] [place] [address] Platelets (Bld) [#/Vol] 224 10*3/uL Normal 150 - 450 [facility] Comment on above: Performed By: #### H APTO #### [facility] [address] [place] [address] RBC (Bld) [#/Vol] 3.33 x10E12/L Low 4.50 - 5.90 [facility] Comment on above: Performed By: #### H APTO #### [facility] [address] [place] [address] WBC (Bld) [#/Vol] 17.2 10*3/uL High 4.4 - 11.3 [facility] Comment on above: Performed By: #### H APTO #### [facility] [address] [place] [address] Daily Progress Note-Interven tional Radiology/Radiologyon 01-26-2020 Daily Progress Note-Interventional Radiology/Radiology Service: Interventional Radiology/Radiology Subjective Data: BRITTNEYAdithyaCHRISTIANO is a 24 year old Male who is Hospital Day # 6 and POD #5 for 1. laparoscopic splenectomy. Patient reports leakage from right groin IR procedure site. Also reports nausea, vomiting, heartburn, and hiccups. Having diffuse pain. Denies fever, chills. Objective Data: Objective Information: T PRBPSpO2 Value36.95786375/9097% Date/Time01/25 12: 12: 12: 12: 12:45 Range(36C - 36.6C ) (78 - 99 ) (17 - 19 ) (128 - 155 )/ (75 - 90 ) (96% - 100% ) Pain reported at 01/25 12:31: 2 = Mild ---- Intake and Output ----- Mn/Dy/Year TimeIntakeOutputNet Jan 26, 2020 2:00 [id number] Jan 26, 2020 6:00 [id number] Jan 25, 2020 10:00 [id number] The Intake and Output Totals for the last 24 hours are: IntakeOutputNet [id number] Physical Exam: Constitutional: Well developed, resting in [...] dry, without jaundice Medication: Medications: Continuous Medications --------- 1. fentaNYL TOMBSTONE ERECTOR 1000 microgram/ NaCL 0.9% 50 mL: 1000 microgram(s) IV TOMBSTONE ERECTOR 2. Lactated Ringers Infusion: 1000 mL IntraVenous Scheduled Medications --------- 1. Bisacodyl Rectal: 10 mg Rectal Daily 2. Iopamidol 76% (ISOVUE 370) -Radiology Contrast): 121.5 mL IntraVenous Push Once 3. Lidocaine 5% TransDermal: 1 patch TransDermal Every 24 Hours 4. Lidocaine 5% TransDermal: 1 patch TransDermal Every 24 Hours 5. Pantoprazole Injectable: 40 mg IntraVenous Push Every 24 Hours PRN Medications --------- 1. diphenhydrAMINE Injectable: 25 mg IntraVenous Push Every 6 Hours 2. Naloxone Injectable: 0.2 mg IntraVenous Push Once 3. Ondansetron Injectable: 4 mg IntraVenous Push Every 4 Hours 4. Promethazine IV Piggy Back: 12.5 mg IntraVenous Piggyback Every 6 Hours Currently Suspended Medications --------- 1. Heparin SubCutaneous: 5000 unit(s) SubCutaneous Every 8 Hours Recent Lab Results: Results: CBC: 01/26/2020 06:58 \ Hgb / \ 10.2 L / WBC Plt 17.2 H 224 / Hct \ / 34.8 L \ RBC: 3.33 L MCV: 105 H BMP: 01/26/2020 06:58 NA+ Cl- BUN / 138 102 13 / --------- Glucose ---- 90 K+ HCO3- Creat \ 4.2 24 0.54 \ Calcium : 9.2 Anion Gap : 16 I have reviewed these laboratory results: Basic Metabolic Panel Trending View [id number] 06:58:00 09-Jan-2020 12:19:00 Glucose, Serum90 71 L NA138 139 K4.2 4.7 CL102 103 Bicarbonate, Serum24 23 Anion Gap, Serum16 18 BUN13 13 CREAT0.54 0.55 GFR-Non >60 >60 GFR->60 >60 Calcium, Serum9.2 8.7 Complete Blood Count Trending View [id number] 06:58:00 -Jan-2020 12:19:00 White Blood Cell Count17.2 H 22.7 H Nucleated Erythrocyte Count0.3 0.3 Red Blood Cell Count3.33 L 3.76 L HGB10.2 L 11.3 L HCT34.8 L 37.1 L XBK218 H 99 MCHC29.3 L 30.5 L [id number] 292 RDW-CV14.8 H 15.4 H Radiology Results: [...] will continue to follow IR Nurse Coordinator [id number] IR PA / resident [id number] Electronic Signatures: Ann Alfaro (PAC) (Signed 26-Jan-2020 14:48) Authored: Service, Subjective Data, Objective Data, Assessment and Plan, Signature/Cosignature/A ttestation Last Updated: 26-Jan-2020 14:48 by Ann Alfaro ([facility]) Normal [facility] Daily Progress Note-Surgeryo n 01-26-2020 Daily Progress Note-Surgery Service: Surgery Subjective Data: CHRISTIANO ZHENG is a 24 year old Male who is Hospital Day # 6 and POD #5 for 1. laparoscopic splenectomy. Patient seen and examined at bedside. Had some episodes of emesis last night. Small volume, gastric contents. Still having diffuse pain but has been reluctant to use TOMBSTONE ERECTOR since he knows it may worsen ileus. Has been walking around. Objective Data: Objective Information: T PRBPSpO2 Value36.81520206/7599% Date/Time01/25 8: 8: 8: 8: 8:42 Range(36C - 36.9C ) (78 - 99 ) (17 - 19 ) (128 - 143 )/ (75 - 85 ) (95% - 100% ) Highest temp of 36.9 C was recorded at 01/24 12:21 Pain reported at 01/24 20:41: 2 = Mild ---- Intake and Output ----- Mn/Dy/Year TimeIntakeOutputNet Jan 26, 2020 6:00 [id number] Jan 25, 2020 10:00 [id number] Jan 25, 2020 2:00 [id number] The Intake and Output Totals for the last 24 hours are: IntakeOutputNet [id number] Physical Exam: Constitutional: Well developed, no acute [...] on post-op CT scan. Plan: Neuro: -fentanyl TOMBSTONE ERECTOR for postop pain - adding lidocaine patches to assist with decreased TOMBSTONE ERECTOR use CV: - Continue monitoring hemodynamic status Pulm: - IS q1h, OOB GI: - continue CLD as tolerated - Zofran for nausea - chewing gum : - Continue MIVF; dec to 100ml/hr - Strict I/Os MSK: OOB, ambulate DVT ppx: SCDs; OOB, hold chemical ppx Dispo: pending improvement in pain and return of bowel function Discussed with Dr. Martina Rinaldi MD [facility] General Surgery p: [phone] Signature/Cosignature/A ttestation: Note Completion: I am a: Resident/Fellow Attending [...] the note. I personally evaluated the patient [id number] Electronic Signatures: Jluis Rinaldi (Resident)) (Signed 26-Jan-2020 10:21) Authored: Service, Subjective Data, Objective Data, Assessment and Plan, Signature/Cosignature/A ttestation Eagle Mcmanus) (Signed 26-Jan-2020 10:55) Authored: Signature/Cosignature/A ttestation Co-Signer: Service, Subjective Data, Objective Data, Assessment and Plan, Signature/Cosignature/A ttestation Last Updated: 26-Jan-2020 10:55 by Eagle Mmcanus) Normal [facility] FLOW CYTOMETRY TESTon 2019 FLOW TEST ORDERED LYMPHOMA CUTDOWN PANEL Normal [facility] Comment on above: Performed By: #### F CTST ####[id number] [place] [address] SOURCE TISSUE Normal [facility] Comment on above: Performed By: #### F CTST ####[id number] [place] [address] SURFACE MARKERS LYMPHOMA CUT DOWN PANELon 01-26-2020 SPECIMEN SITE Spleen Normal [facility] Comment on above: Result Comment: [id number] Performed By: #### L CPAN ####[id number] [place] [address] METHOD SEE BELOW Normal [facility] Comment on above: Result Comment: This test is a multicolor, whole blood lysis assay. It was developed and its performance characteristics determined by the Department of Pathology, [facility], and has not been cleared or [...] TCR gamma-delta Performed By: #### L CPAN ####[id number] [place] [address] SPECIMEN VIABILITY Acceptable Normal [facility] Comment on above: Performed By: #### L CPAN ####[id number] [place] [address] BASIC METABOLIC PANELon 08-0 9-2020 Anion gap [Moles/Vol] 18 mmol/L Normal 10 - 20 [facility] Comment on above: Performed By: #### H APTO #### [facility] [address] [place] [address] Calcium [Mass/Vol] 8.7 mg/dL Normal 8.6 - 10.6 [facility] Comment on above: Performed By: #### H APTO #### [facility] [address] [place] [address] Chloride [Moles/Vol] 103 mmol/L Normal 98 - 107 [facility] Comment on above: Performed By: #### H APTO #### [facility] [address] [place] [address] Creatinine [Mass/Vol] 0.55 mg/dL Normal 0.50 - 1.30 [facility] Comment on above: Performed By: #### H APTO #### [facility] [address] [place] [address] GFR- AM. >60 Normal >60 [facility] Comment on above: Result Comment: CALC ULATIONS OF ESTIMATED GFR ARE PERFORMED USING THE MDRD STUDY EQUATION FOR THE IDMS-TRACEABLE CREATININE METHODS. CLIN CHEM 2007;53:766-72 Performed By: #### H APTO #### [facility] [address] [place] [address] GFR-NON AM. >60 Normal >60 [facility] Comment on above: Performed By: #### H APTO #### [facility] [address] [place] [address] Glucose [Mass/Vol] 71 mg/dL Low 74 - 99 [facility] Comment on above: Performed By: #### H APTO #### [facility] [address] [place] [address] HCO3 (Bld) [Moles/Vol] 23 mmol/L Normal 21 - 32 [facility] Comment on above: Performed By: #### H APTO #### [facility] [address] [place] [address] Potassium [Moles/Vol] 4.7 mmol/L Normal 3.5 - 5.3 [facility] Comment on above: Result Comment: MILD HEMOLYSIS DETECTED. The result may be falsely elevated due to hemolysis or other interferents. Clinical correlation is recommended. Repeat testing may be considered. Performed By: #### H APTO #### [facility] [address] [place] [address] Sodium [Moles/Vol] 139 mmol/L Normal 136 - 145 [facility] Comment on above: Performed By: #### H APTO #### [facility] [address] [place] [address] Urea nitrogen [Mass/Vol] 13 mg/dL Normal 6 - 23 [facility] Comment on above: Performed By: #### H APTO #### [facility] [address] [place] [address] Anion gap [Moles/Vol] Canceled Normal [facility] Comment on above: Order Comment: TEST BASIC METABOLIC PANEL WAS CANCELLED, 01/25/2020 08:19 Performed By: #### H APTO #### [facility] [address] [place] [address] Calcium [Mass/Vol] Canceled Normal [facility] Comment on above: Order Comment: TEST BASIC METABOLIC PANEL WAS CANCELLED, 01/25/2020 08:19 Performed By: #### H APTO #### [facility] [address] [place] [address] Chloride [Moles/Vol] Canceled Normal [facility] Comment on above: Order Comment: TEST BASIC METABOLIC PANEL WAS CANCELLED, 01/25/2020 08:19 Performed By: #### H APTO #### [facility] [address] [place] [address] Creatinine [Mass/Vol] Canceled Normal [facility] Comment on above: Order Comment: TEST BASIC METABOLIC PANEL WAS CANCELLED, 01/25/2020 08:19 Performed By: #### H APTO #### [facility] [address] [place] [address] GFR- AM. Canceled Normal [facility] Comment on above: Order Comment: TEST BASIC METABOLIC PANEL WAS CANCELLED, 01/25/2020 08:19 Result Comment: CALC ULATIONS OF ESTIMATED GFR ARE PERFORMED USING THE MDRD STUDY EQUATION FOR THE IDMS-TRACEABLE CREATININE METHODS. CLIN CHEM 2007;53:766-72 Performed By: #### H APTO #### [facility] [address] [place] [address] GFR-NON AM. Canceled Normal [facility] Comment on above: Order Comment: TEST BASIC METABOLIC PANEL WAS CANCELLED, 01/25/2020 08:19 Performed By: #### H APTO #### [facility] [address] [place] [address] Glucose [Mass/Vol] Canceled Normal [facility] Comment on above: Order Comment: TEST BASIC METABOLIC PANEL WAS CANCELLED, 01/25/2020 08:19 Performed By: #### H APTO #### [facility] [address] [place] [address] HCO3 (Bld) [Moles/Vol] Canceled Normal [facility] Comment on above: Order Comment: TEST BASIC METABOLIC PANEL WAS CANCELLED, 01/25/2020 08:19 Performed By: #### H APTO #### [facility] [address] [place] [address] Potassium [Moles/Vol] Canceled Normal [facility] Comment on above: Order Comment: TEST BASIC METABOLIC PANEL WAS CANCELLED, 01/25/2020 08:19 Performed By: #### H APTO #### [facility] [address] [place] [address] Sodium [Moles/Vol] Canceled Normal [facility] Comment on above: Order Comment: TEST BASIC METABOLIC PANEL WAS CANCELLED, 01/25/2020 08:19 Performed By: #### H APTO #### [facility] [address] [place] [address] Urea nitrogen [Mass/Vol] Canceled Normal [facility] Comment on above: Order Comment: TEST BASIC METABOLIC PANEL WAS CANCELLED, 01/25/2020 08:19 Performed By: #### H APTO #### [facility] [address] [place] [address] CBCon 01-25-2020 Erythrocyte distribution width (RBC) [Ratio] 15.4 % High 11.5 - 14.5 [facility] Comment on above: Performed By: #### H APTO #### [place] [address] [place] [address] Hematocrit (Bld) [Volume fraction] 37.1 % Low 41.0 - 52.0 [facility] Comment on above: Performed By: #### H APTO #### [facility] [address] [place] [address] Hemoglobin (Bld) [Mass/Vol] 11.3 g/dL Low 13.5 - 17.5 [facility] Comment on above: Performed By: #### H APTO #### [facility] [address] [place] [address] MCHC (RBC) [Mass/Vol] 30.5 g/dL Low 32.0 - 36.0 [facility] Comment on above: Performed By: #### H APTO #### [facility] [address] [place] [address] MCV (RBC) [Entitic vol] 99 fL Normal 80 - 100 [facility] Comment on above: Performed By: #### H APTO #### [facility] [address] [place] [address] Nucleated RBC/100 WBC (Bld) [Ratio] 0.3 /100 WBC Normal 0.0-0.0 [facility] Comment on above: Performed By: #### H APTO #### [facility] [address] [place] [address] Platelets (Bld) [#/Vol] 292 10*3/uL Normal 150 - 450 [facility] Comment on above: Performed By: #### H APTO #### [facility] [address] [place] [address] RBC (Bld) [#/Vol] 3.76 x10E12/L Low 4.50 - 5.90 [facility] Comment on above: Performed By: #### H APTO #### [facility] [address] [place] [address] WBC (Bld) [#/Vol] 22.7 10*3/uL High 4.4 - 11.3 [facility] Comment on above: Performed By: #### H APTO #### [facility] [address] [place] [address] Erythrocyte distribution width (RBC) [Ratio] Canceled Normal [facility] Comment on above: Order Comment: TEST CBC WAS CANCELLED, 01/25/2020 08:19 Performed By: #### H APTO #### [facility] [address] [place] [address] Hematocrit (Bld) [Volume fraction] Canceled Normal [facility] Comment on above: Order Comment: TEST CBC WAS CANCELLED, 01/25/2020 08:19 Performed By: #### H APTO #### [facility] [address] [place] [address] Hemoglobin (Bld) [Mass/Vol] Canceled Normal [facility] Comment on above: Order Comment: TEST CBC WAS CANCELLED, 01/25/2020 08:19 Performed By: #### H APTO #### [facility] [address] [place] [address] MCHC (RBC) [Mass/Vol] Canceled Normal [facility] Comment on above: Order Comment: TEST CBC WAS CANCELLED, 01/25/2020 08:19 Performed By: #### H APTO #### [facility] [address] [place] [address] MCV (RBC) [Entitic vol] Canceled Normal [facility] Comment on above: Order Comment: TEST CBC WAS CANCELLED, 01/25/2020 08:19 Performed By: #### H APTO #### [facility] [address] [place] [address] Nucleated RBC/100 WBC (Bld) [Ratio] Canceled Normal [facility] Comment on above: Order Comment: TEST CBC WAS CANCELLED, 01/25/2020 08:19 Performed By: #### H APTO #### [facility] [address] [place] [address] Platelets (Bld) [#/Vol] Canceled Normal [facility] Comment on above: Order Comment: TEST CBC WAS CANCELLED, 01/25/2020 08:19 Performed By: #### H APTO #### [facility] [address] [place] [address] RBC (Bld) [#/Vol] Canceled Normal [facility] Comment on above: Order Comment: TEST CBC WAS CANCELLED, 01/25/2020 08:19 Performed By: #### H APTO #### [facility] [address] [place] [address] WBC (Bld) [#/Vol] Canceled Normal [facility] Comment on above: Order Comment: TEST CBC WAS CANCELLED, 01/25/2020 08:19 Performed By: #### H APTO #### [facility] [address] [place] [address] Daily Progress Note-Surgeryo n 01-25-2020 Daily Progress [...] BM. Objective Data: Objective Information: T PRBPSpO2 [id number]/17429% Date/Time01/24 2: 2: 2: 2: 2:38 Range(36C [...] ----- Mn/Dy/Year TimeIntakeOutputNet Jan 25, 2020 6:00 [id number] Jan 24, 2020 10:00 [id number] Jan 24, 2020 2:00 [id number] The Intake and Output Totals for the last 24 hours are: IntakeOutputNet [id number] Physical Exam: Constitutional: Patient lying comfortably in [...] on post-op CT scan. Plan: Neuro: -fentanyl TOMBSTONE ERECTOR for postop pain CV: - Continue monitoring hemodynamic status Pulm: - IS q1h, OOB GI: - advance to CLD - Zofran for nausea - chewing gum : - Continue MIVF; dec to 100ml/hr - Strict I/Os MSK: OOB, ambulate DVT ppx: SCDs; hold chemical ppx Dispo: pending improvement in pain and return of bowel function Discussed with Dr. Martina Rinaldi MD [facility] - General Surgery p: [phone] Signature/Cosignature/A ttestation: Note Completion: I am a: Resident/Fellow Attending [...] the note. I personally evaluated the patient [id number] Comments/ Additional Findings Doing better today. encourage ambulation Electronic Signatures: Jluis Rinaldi (Resident)) (Signed 25-Jan-2020 08:03) Authored: Service, Subjective Data, Objective Data, Assessment and Plan, Signature/Cosignature/A ttestation Eagle Mcmanus) (Signed 25-Jan-2020 20:15) Authored: Signature/Cosignature/A ttestation Co-Signer: Signature/Cosignature/A ttestation Last Updated: 25-Jan-2020 20:15 by Eagle Mcmanus) [facility] Discharge [id number] Discharge Profile2 Discharge Orders: Anticipated Discharge Date: Anticipated Discharge [id number] Problem List: Additional Dx: Hereditary spherocytosis: Catalog Name: Hereditary spherocytosis Significant Events: IR - embolization: Clinical Events This Visit, Emergent embolization of splenic artery on POD1 Surgical Procedure: Clinical Events This Visit, 21-Jan-2020, 1. laparoscopic splenectomy Hospital Providers: Provider RoleProvider Name Addie Hodges Raymond Physician AssistantBoAnn ledbetter Activity: activity as tolerated. May shower. May [...] he remained stable so was transferred to [facility] on POD3. Postop course additionally complicated by ileus likely secondary to hemoperitoneum. Patient diet advanced slowly as tolerated to FLD. IV medications transitioned to PO with tolerance. On POD 7, patient discharged home. Provider FINAL REVIEW of Orders: Final Review: Final Review of Medication Reconciliation and Orders Completedby Physician Reviewing ProviderSSolitario Rinaldi MD (Resident) at 28-Jan-2020 17:14:45 Appointments: Follow-Up Appointment 01: Physician/Dept/Luis Mcmanus Reason for Referralpostop check Call to Schedule in2 weeks Phone [phone] Commentsdiscuss long-term vaccines Electronic Signatures: Jluis Rinaldi (Resident)) (Signed 28-Jan-2020 17:14) Authored: Discharge Orders, Hospital Course (Home Care/Gold Form), Provider FINAL REVIEW of Orders, Appointments, Gold Form - Account Services Specialist Summary Last Updated: 28-Jan-2020 17:14 by Jluis Rinaldi (Resident)) Normal [facility] CALCIUM, IONIZEDon 0 CALCIUM,IONIZED 1.17 mmol/L Normal 1.10 - 1.33 [facility] Comment on above: Result Comment: The performance characteristics of ionized calcium tested in heparinized plasma or serum have been validated by the individual laboratory site where testing is performed. Testing on heparinized plasma or serum is not approved by the FDA; however, such approval is not necessary. Performed By: #### E SRWS #### [facility] [address] [place] [address] CBCon 01-24-2020 Erythrocyte distribution width (RBC) [Ratio] 16.0 % High 11.5 - 14.5 [facility] Comment on above: Performed By: #### E SRWS #### [facility] [address] [place] [address] Hematocrit (Bld) [Volume fraction] 30.6 % Low 41.0 - 52.0 [facility] Comment on above: Performed By: #### E SRWS #### [facility] [address] [place] [address] Hemoglobin (Bld) [Mass/Vol] 10.6 g/dL Low 13.5 - 17.5 [facility] Comment on above: Performed By: #### E SRWS #### [facility] [address] [place] [address] MCHC (RBC) [Mass/Vol] 34.6 g/dL Normal 32.0 - 36.0 [facility] Comment on above: Performed By: #### E SRWS #### [facility] [address] [place] [address] MCV (RBC) [Entitic vol] 88 fL Normal 80 - 100 [facility] Comment on above: Performed By: #### E SRWS #### [facility] [address] [place] [address] Nucleated RBC/100 WBC (Bld) [Ratio] 0.2 /100 WBC Normal 0.0-0.0 [facility] Comment on above: Performed By: #### E SRWS #### [facility] [address] [place] [address] Platelets (Bld) [#/Vol] 211 10*3/uL Normal 150 - 450 [facility] Comment on above: Performed By: #### E SRWS #### [facility] [address] [place] [address] RBC (Bld) [#/Vol] 3.47 x10E12/L Low 4.50 - 5.90 [facility] Comment on above: Performed By: #### E SRWS #### [facility] [address] [place] [address] WBC (Bld) [#/Vol] 24.4 10*3/uL High 4.4 - 11.3 [facility] Comment on above: Performed By: #### E SRWS #### [facility] [address] [place] [address] Erythrocyte distribution width (RBC) [Ratio] 16.6 % High 11.5 - 14.5 [facility] Comment on above: Performed By: #### E SRWS #### [facility] [address] [place] [address] Hematocrit (Bld) [Volume fraction] 29.4 % Low 41.0 - 52.0 [facility] Comment on above: Performed By: #### E SRWS #### [facility] [address] [place] [address] Hemoglobin (Bld) [Mass/Vol] 9.8 g/dL Low 13.5 - 17.5 [facility] Comment on above: Performed By: #### E SRWS #### [facility] [address] [place] [address] MCHC (RBC) [Mass/Vol] 33.3 g/dL Normal 32.0 - 36.0 [facility] Comment on above: Performed By: #### E SRWS #### [facility] [address] [place] [address] MCV (RBC) [Entitic vol] 92 fL Normal 80 - 100 [facility] Comment on above: Performed By: #### E SRWS #### [facility] [address] [place] [address] Nucleated RBC/100 WBC (Bld) [Ratio] 0.2 /100 WBC Normal 0.0-0.0 [facility] Comment on above: Performed By: #### E SRWS #### [facility] [address] [place] [address] Platelets (Bld) [#/Vol] 199 10*3/uL Normal 150 - 450 [facility] Comment on above: Performed By: #### E SRWS #### [facility] [address] [place] [address] RBC (Bld) [#/Vol] 3.19 x10E12/L Low 4.50 - 5.90 [facility] Comment on above: Performed By: #### E SRWS #### [facility] [address] [place] [address] WBC (Bld) [#/Vol] 21.3 10*3/uL High 4.4 - 11.3 [facility] Comment on above: Performed By: #### E SRWS #### [facility] [address] [place] [address] COAGULATION SCREENon 020 aPTT Coag (Bld) [Time] 21 s Low 25 - 35 [facility] Comment on above: Result Comment: Note new reference range as of 11/11/2019. THE APTT IS NO LONGER USED FOR MONITORING UNFRACTIONATED HEPARIN THERAPY. FOR MONITORING HEPARIN THERAPY, USE THE HEPARIN ASSAY. Performed By: #### E SRWS #### [facility] [address] [place] [address] INR Coag (PPP) [Relative time] 1.1 {INR} Normal 0.9 - 1.1 [facility] Comment on above: Performed By: #### E SRWS #### [facility] [address] [place] [address] PT Coag (PPP) [Time] 12.9 s Normal 10.1 - 13.3 [facility] Comment on above: Result Comment: Note new reference range as of 11/11/2019. Performed By: #### E SRWS #### [facility] [address] [place] [address] Clinical Event Note-Rashmi t Eventson 01-24-2020 Clinical Event Note-Overnight Events Clinical Event: [...] 03:11 by Sen Colindres ( (Resident)) Normal [facility] Daily Progress Note - Critic al Care-SICUon [...] hour. Objective Data: Objective Information T PRBPSpO2 [id number]/59280 % Date/Time01/23:: 11:00 Range(36.4C - 37.3C ) (89 - 135 ) (10 - 33 ) (92 - 148 )/ (59 - 89 ) (89% - 100% ) As of 24-Jan-2020 08:00:00, patient is on 2 L/min of oxygen via nasal cannula. Highest temp of 37.3 C was recorded at 01/22 18:00 Pain reported at 01/23 10:01: 7 = Severe ---- Intake and Output ----- Mn/Dy/Year TimeIntakeOutputNet Jan 24, 2020 6:00 [id number] Jan 23, 2020 10:00 [id number] Jan 23, 2020 2:00 [id number] The Intake and Output Totals for the last 24 hours are: IntakeOutputNet [id number] Drain and tube details (included in I&O [...] Swelling Dilaudid: Rash Medications: Medications: Continuous Medications --------- 1. fentaNYL TOMBSTONE ERECTOR 1000 microgram/ NaCL 0.9% 50 mL: 1000 microgram(s) IV TOMBSTONE ERECTOR 2. Lactated Ringers Infusion: 1000 mL IntraVenous Scheduled Medications --------- 1. Bisacodyl Rectal: 10 mg Rectal Daily 2. Iopamidol 76% (ISOVUE 370) -Radiology Contrast): 121.5 mL IntraVenous Push Once 3. Lactated Ringers IV Bolus: 1000 mL IntraVenous Piggyback Once 4. Lactated Ringers IV Bolus: 1000 mL IntraVenous Piggyback Once 5. Lidocaine 5% TransDermal: 1 patch TransDermal Every 24 Hours PRN Medications --------- 1. diphenhydrAMINE Injectable: 25 mg IntraVenous Push [...] Piggyback Every 6 Hours Currently Suspended Medications --------- 1. Heparin SubCutaneous: 5000 unit(s) SubCutaneous Every 8 Hours Recent Lab Results: Results: CBC: 01/24/2020 04:06 \ Hgb / \ 10.6 L / WBC Plt 24.4 H 211 / Hct \ / 30.6 L \ RBC: 3.47 L MCV: 88 Neutrophil %: 81.2 RFP: 01/24/2020 04:06 NA+ Cl- BUN / 139 101 9 / --------- Glucose ---- 109 H K+ HCO3- Creat \ 4.1 [...] Hazy opacities overlying bases. 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 The [...] it often, so will transition to Fentanyl TOMBSTONE ERECTOR: -50mcg loading dose -25mcg TOMBSTONE ERECTOR dose -15 min lockout -Max 100mcg/hour - [...] Status: Code StatusFull Code Comorbidities: Comorbidity: Other Signature/Cosignature/A ttestation: Note Completion: I am a: Resident/Fellow Attending [...] the note. I personally evaluated the patient [id number] Critical Care PatientI have reviewed and evaluated [...] Subjective Data, Objective Data, Assessment and Plan, Signature/Cosignature/A ttestation Annette Irving) (Signed 24-Jan-2020 13:11) Authored: Signature/Cosignature/A ttestation Co-Signer: Assessment and Plan, Signature/Cosignature/A ttestation Last Updated: 24-Jan-2020 13:11 by Annette Irving) Normal [facility] Daily Progress Note-Zeke leyvaalbinyuko 01-24-2020 Daily Progress Note-Zeke Surgery Service: Surgery Subjective Data: CHRISTIANO ZHENG is a 24 year old Male who is Hospital Day # 4 and POD #3 for 1. laparoscopic splenectomy. NGT placed last night but removed shortly after due to discomfort. Still having abdominal pain, +hiccups, no further emesis. Passing some flatus. Objective Data: Objective Information: T PRBPSpO2 [id number]/46827% Date/Time01/23:::: 10:00 Range(36.4C - 37.3C ) (89 - 135 ) (10 - 33 ) (92 - 148 )/ (54 - 89 ) (89% - 100% ) As of 24-Jan-2020 08:00:00, patient is on 2 L/min of oxygen via nasal cannula. Highest temp of 37.3 C was recorded at 01/22 18:00 ---- Intake and Output ----- Mn[facility]Dy/[facility] Jan 24, 2020 6:00 [id number] Jan 23, 2020 10:00 [id number] Jan 23, 2020 2:00 [id number] The Intake and Output Totals for the last 24 hours are: IntakeOutputNet [id number] Physical Exam: Constitutional: Patient lying comfortably in bed. Eyes: EOMI Respiratory/Thorax: Non labored breathing on 2L NC Cardiovascular: RRR Gastrointestinal: abdomen TTP diffusely, soft, distended, incisions c/d/i Genitourinary: [place] in place with clear yellow urine Extremities: No lower extremity edema, SCDs on Neurological: Alert and oriented Psychological: Appropriate mood and affect Medication: Medications: Continuous Medications --------- 1. fentaNYL TOMBSTONE ERECTOR 1000 microgram/ NaCL 0.9% 50 mL: 1000 microgram(s) IV TOMBSTONE ERECTOR 2. Lactated Ringers Infusion: 1000 mL IntraVenous Scheduled Medications --------- 1. Bisacodyl Rectal: 10 mg Rectal Daily 2. Iopamidol 76% (ISOVUE 370) -Radiology Contrast): 121.5 mL IntraVenous Push Once 3. Lactated Ringers IV Bolus: 1000 mL IntraVenous Piggyback Once 4. Lactated Ringers IV Bolus: 1000 mL IntraVenous Piggyback Once 5. Lidocaine 5% TransDermal: 1 patch TransDermal Every 24 Hours PRN Medications --------- 1. Calcium Chloride IVPB: 0.5 gram(s) IntraVenous [...] Piggyback Every 6 Hours Currently Suspended Medications --------- 1. Heparin SubCutaneous: 5000 unit(s) SubCutaneous Every [...] 04:06:00 ResultValue Fibrinogen 673 H Magnesium, Serum 24-Jan-2020 04:06:00 ResultValue Magnesium, Serum 2.38 Radiology Results: Results: Impression: [Curvilinear lucency underlying the right hemidiaphragm concerning for subdiaphragmatic free air. Correlation with physical exam is advised. Hazy opacities overlying bases. 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 Martina Kaufman PGY-4 [facility] p: [id number] Signature/Cosignature/A ttestation: Note Completion: I am a: Resident/Fellow Attending [...] the note. I personally evaluated the patient [id number] Comments/ Additional Findings Hg stable. not had bowel movement. abdomen benign. will transfer to floor Electronic Signatures: Annette Kaufman (Resident)) (Signed 24-Jan-2020 11:02) Authored: Service, Subjective Data, Objective Data, Assessment and Plan, Signature/Cosignature/A ttestation Eagle Mcmanus) (Signed 25-Jan-2020 20:14) Authored: Signature/Cosignature/A ttestation Co-Signer: Service, Subjective Data, Objective Data, Assessment and Plan, Signature/Cosignature/A ttestation Last Updated: 25-Jan-2020 20:14 by Eagle Mcmanus) Normal [facility] FIBRINOGENon 01-24-2020 FIBRINOGEN 673 mg/dL High 200 - 400 [facility] Comment on above: Performed By: #### E SRWS #### [facility] [address] [place] [address] MAGNESIUMon 01-24-2020 Magnesium [Mass/Vol] 2.38 mg/dL Normal 1.60 - 2.40 [facility] Comment on above: Performed By: #### E SRWS #### [facility] [address] [place] [address] RENAL FUNCTION PANELon 01-23 Albumin [Mass/Vol] 3.9 g/dL Normal 3.4 - 5.0 [facility] Comment on above: Performed By: #### E SRWS #### [facility] [address] [place] [address] Anion gap [Moles/Vol] 12 mmol/L Normal 10 - 20 [facility] Comment on above: Performed By: #### E SRWS #### [facility] [address] [place] [address] Calcium [Mass/Vol] 8.7 mg/dL Normal 8.6 - 10.6 [facility] Comment on above: Performed By: #### E SRWS #### [facility] [address] [place] [address] Chloride [Moles/Vol] 101 mmol/L Normal 98 - 107 [facility] Comment on above: Performed By: #### E SRWS #### [facility] [address] [place] [address] Creatinine [Mass/Vol] 0.65 mg/dL Normal 0.50 - 1.30 [facility] Comment on above: Performed By: #### E SRWS #### [facility] [address] [place] [address] GFR- AM. >60 Normal >60 [facility] Comment on above: Result Comment: CALC ULATIONS OF ESTIMATED GFR ARE PERFORMED USING THE MDRD STUDY EQUATION FOR THE IDMS-TRACEABLE CREATININE METHODS. CLIN CHEM 2007;53:766-72 Performed By: #### E SRWS #### [facility] [address] [place] [address] GFR-NON AM. >60 Normal >60 [facility] Comment on above: Performed By: #### E SRWS #### [facility] [address] [place] [address] Glucose [Mass/Vol] 109 mg/dL High 74 - 99 [facility] Comment on above: Performed By: #### E SRWS #### [facility] [address] [place] [address] HCO3 (Bld) [Moles/Vol] 30 mmol/L Normal 21 - 32 [facility] Comment on above: Performed By: #### E SRWS #### [facility] [address] [place] [address] Phosphate [Mass/Vol] 2.4 mg/dL Low 2.5 - 4.9 [facility] Comment on above: Result Comment: The performance characteristics of phosphorus testing in heparinized plasma have been validated by the individual laboratory site where testing is performed. Testing on heparinized plasma is not approved by the FDA; however, such approval is not necessary. Performed By: #### E SRWS #### [facility] [address] [place] [address] Potassium [Moles/Vol] 4.1 mmol/L Normal 3.5 - 5.3 [facility] Comment on above: Result Comment: MILD HEMOLYSIS DETECTED. The result may be falsely elevated due to hemolysis or other interferents. Clinical correlation is recommended. Repeat testing may be considered. Performed By: #### E SRWS #### [facility] [address] [place] [address] Sodium [Moles/Vol] 139 mmol/L Normal 136 - 145 [facility] Comment on above: Performed By: #### E SRWS #### [facility] [address] [place] [address] Urea nitrogen [Mass/Vol] 9 mg/dL Normal 6 - 23 [facility] Comment on above: Performed By: #### E SRWS #### [facility] [address] [place] [address] TH ABDOMEN AP VIEWon 020 TH ABDOMEN AP VIEW Patient Name: CHRISTIANO ZHENG STUDY: ABDOMEN AP VIEW; 01/24/2020 2:34 am INDICATION: nausea and eructation. COMPARISON: None. ACCESSION NUMBER(S): [id number] ORDERING CLINICIAN: SEN COLINDRES FINDINGS: There is [...] as stated. This study was interpreted at [facility], [place], [place]. Findings were communicated by Clark Rosado MD (radiology transcriptionist) to Dr. Gupta on 01/24/2020 at 05:40 with readback verification. Electronically signed by: Spencer BARRETO MD Normal [facility] TH CHEST 1 VIEWon 01-24-2020 TH CHEST 1 VIEW Patient Name: CHRISTIANO ZHENG STUDY: CHEST 1 VIEW; 01/24/2020 6:44 am INDICATION: upright if possible, rule out free air. COMPARISON: KUB 01/24/2020, 2:34 a.m. ACCESSION NUMBER(S): [id number] ORDERING CLINICIAN: JIM GUPTA FINDINGS: Upright AP [...] Hazy opacities overlying bases. 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 The critical information above was relayed directly by Dr. Leslie by telephone to Dr. Salmeron On 01/24/2020 at 9 a.m. with readback verification. Electronically signed by: Spencer BARRETO MD Normal [facility] CALCIUM, IONIZEDon 0 CALCIUM,IONIZED 1.13 mmol/L Normal 1.10 - 1.33 [facility] Comment on above: Result Comment: The performance characteristics of ionized calcium tested in heparinized plasma or serum have been validated by the individual laboratory site where testing is performed. Testing on heparinized plasma or serum is not approved by the FDA; however, such approval is not necessary. Performed By: #### U MELISA #### [facility] [address] [place] [address] CBCon 01-23-2020 Erythrocyte distribution width (RBC) [Ratio] 17.0 % High 11.5 - 14.5 [facility] Comment on above: Performed By: #### E SRWS #### [facility] [address] [place] [address] Hematocrit (Bld) [Volume fraction] 26.4 % Low 41.0 - 52.0 [facility] Comment on above: Performed By: #### E SRWS #### [facility] [address] [place] [address] Hemoglobin (Bld) [Mass/Vol] 8.9 g/dL Low 13.5 - 17.5 [facility] Comment on above: Performed By: #### E SRWS #### [facility] [address] [place] [address] MCHC (RBC) [Mass/Vol] 33.7 g/dL Normal 32.0 - 36.0 [facility] Comment on above: Performed By: #### E SRWS #### [facility] [address] [place] [address] MCV (RBC) [Entitic vol] 92 fL Normal 80 - 100 [facility] Comment on above: Performed By: #### E SRWS #### [facility] [address] [place] [address] Nucleated RBC/100 WBC (Bld) [Ratio] 0.3 /100 WBC Normal 0.0-0.0 [facility] Comment on above: Performed By: #### E SRWS #### [facility] [address] [place] [address] Platelets (Bld) [#/Vol] 158 10*3/uL Normal 150 - 450 [facility] Comment on above: Performed By: #### E SRWS #### [facility] [address] [place] [address] RBC (Bld) [#/Vol] 2.87 x10E12/L Low 4.50 - 5.90 [facility] Comment on above: Performed By: #### E SRWS #### [facility] [address] [place] [address] WBC (Bld) [#/Vol] 20.9 10*3/uL High 4.4 - 11.3 [facility] Comment on above: Performed By: #### E SRWS #### [facility] [address] [place] [address] Erythrocyte distribution width (RBC) [Ratio] 16.9 % High 11.5 - 14.5 [facility] Comment on above: Performed By: #### West BILI #### [facility] [address] [place] [address] Hematocrit (Bld) [Volume fraction] 26.0 % Low 41.0 - 52.0 [facility] Comment on above: Performed By: #### D BILI #### [facility] [address] [place] [address] Hemoglobin (Bld) [Mass/Vol] 9.0 g/dL Low 13.5 - 17.5 [facility] Comment on above: Performed By: #### West BILI #### [facility] [address] [place] [address] MCHC (RBC) [Mass/Vol] 34.6 g/dL Normal 32.0 - 36.0 [facility] Comment on above: Performed By: #### West BILI #### [facility] [address] [place] [address] MCV (RBC) [Entitic vol] 90 fL Normal 80 - 100 [facility] Comment on above: Performed By: #### West BILI #### [facility] [address] [place] [address] Nucleated RBC/100 WBC (Bld) [Ratio] 0.3 /100 WBC Normal 0.0-0.0 [facility] Comment on above: Performed By: #### West BILI #### [facility] [address] [place] [address] Platelets (Bld) [#/Vol] 139 10*3/uL Low 150 - 450 [facility] Comment on above: Performed By: #### West BILI #### [facility] [address] [place] [address] RBC (Bld) [#/Vol] 2.88 x10E12/L Low 4.50 - 5.90 [facility] Comment on above: Performed By: #### West BILI #### [facility] [address] [place] [address] WBC (Bld) [#/Vol] 20.3 10*3/uL High 4.4 - 11.3 [facility] Comment on above: Performed By: #### West BILI #### [facility] [address] [place] [address] Erythrocyte distribution width (RBC) [Ratio] 16.8 % High 11.5 - 14.5 [facility] Comment on above: Performed By: #### U MELISA #### [facility] [address] [place] [address] Hematocrit (Bld) [Volume fraction] 27.2 % Low 41.0 - 52.0 [facility] Comment on above: Performed By: #### U MELISA #### [facility] [address] [place] [address] Hemoglobin (Bld) [Mass/Vol] 9.3 g/dL Low 13.5 - 17.5 [facility] Comment on above: Performed By: #### U MELISA #### [facility] [address] [place] [address] MCHC (RBC) [Mass/Vol] 34.2 g/dL Normal 32.0 - 36.0 [facility] Comment on above: Performed By: #### U MELISA #### [facility] [address] [place] [address] MCV (RBC) [Entitic vol] 89 fL Normal 80 - 100 [facility] Comment on above: Performed By: #### U MELISA #### [facility] [address] [place] [address] Nucleated RBC/100 WBC (Bld) [Ratio] 0.4 /100 WBC Normal 0.0-0.0 [facility] Comment on above: Performed By: #### U MELISA #### [facility] [address] [place] [address] Platelets (Bld) [#/Vol] 121 10*3/uL Low 150 - 450 [facility] Comment on above: Performed By: #### U MELISA #### [facility] [address] [place] [address] RBC (Bld) [#/Vol] 3.04 x10E12/L Low 4.50 - 5.90 [facility] Comment on above: Performed By: #### U MELISA #### [facility] [address] [place] [address] WBC (Bld) [#/Vol] 18.6 10*3/uL High 4.4 - 11.3 [facility] Comment on above: Performed By: #### U MELISA #### [facility] [address] [place] [address] Erythrocyte distribution width (RBC) [Ratio] 17.1 % High 11.5 - 14.5 [facility] Comment on above: Performed By: #### U MELISA #### [facility] [address] [place] [address] Hematocrit (Bld) [Volume fraction] 19.6 % Low 41.0 - 52.0 [facility] Comment on above: Performed By: #### U MELISA #### [facility] [address] [place] [address] Hemoglobin (Bld) [Mass/Vol] 7.0 g/dL Low 13.5 - 17.5 [facility] Comment on above: Performed By: #### U MELISA #### [facility] [address] [place] [address] MCHC (RBC) [Mass/Vol] 35.7 g/dL Normal 32.0 - 36.0 [facility] Comment on above: Performed By: #### U MELISA #### [facility] [address] [place] [address] MCV (RBC) [Entitic vol] 86 fL Normal 80 - 100 [facility] Comment on above: Performed By: #### U MELISA #### [facility] [address] [place] [address] Nucleated RBC/100 WBC (Bld) [Ratio] 0.3 /100 WBC Normal 0.0-0.0 [facility] Comment on above: Performed By: #### U MELISA #### [facility] [address] [place] [address] Platelets (Bld) [#/Vol] 124 10*3/uL Low 150 - 450 [facility] Comment on above: Performed By: #### U MELISA #### [facility] [address] [place] [address] RBC (Bld) [#/Vol] 2.29 x10E12/L Low 4.50 - 5.90 [facility] Comment on above: Performed By: #### U MELISA #### [facility] [address] [place] [address] WBC (Bld) [#/Vol] 16.1 10*3/uL High 4.4 - 11.3 [facility] Comment on above: Performed By: #### U MELISA #### [facility] [address] [place] [address] CBC AND DIFFERENTIALon 01-22 % AUTOMATED IMMATURE GRAN 0.8 % Normal 0.0 - 0.9 [facility] Comment on above: Result Comment: Sisi ture Granulocyte Count (IG) includes promyelocytes, myelocytes and metamyelocytes but does not include bands. Percent differential counts (%) should be interpreted in the context of the absolute cell counts (cells/L). Performed By: #### E SRWS #### [facility] [address] [place] [address] Basophils (Bld) [#/Vol] 0.02 10*3/uL Normal 0.00 - 0.10 [facility] Comment on above: Performed By: #### E SRWS #### [facility] [address] [place] [address] Basophils/100 WBC (Bld) 0.1 % Normal 0.0 - 2.0 [facility] Comment on above: Performed By: #### E SRWS #### [facility] [address] [place] [address] Eosinophils (Bld) [#/Vol] 0.01 10*3/uL Normal 0.00 - 0.70 [facility] Comment on above: Performed By: #### E SRWS #### [facility] [address] [place] [address] Eosinophils/100 WBC (Bld) 0.0 % Normal 0.0 - 6.0 [facility] Comment on above: Performed By: #### E SRWS #### [facility] [address] [place] [address] Erythrocyte distribution width (RBC) [Ratio] 17.0 % High 11.5 - 14.5 [facility] Comment on above: Performed By: #### E SRWS #### [facility] [address] [place] [address] Hematocrit (Bld) [Volume fraction] 27.6 % Low 41.0 - 52.0 [facility] Comment on above: Performed By: #### E SRWS #### [facility] [address] [place] [address] Hemoglobin (Bld) [Mass/Vol] 9.3 g/dL Low 13.5 - 17.5 [facility] Comment on above: Performed By: #### E SRWS #### [facility] [address] [place] [address] Lymphocytes (Bld) [#/Vol] 1.26 10*3/uL Normal 1.20 - 4.80 [facility] Comment on above: Performed By: #### E SRWS #### [facility] [address] [place] [address] Lymphocytes/100 WBC (Bld) 5.7 % Normal 13.0 - 44.0 [facility] Comment on above: Performed By: #### E SRWS #### [facility] [address] [place] [address] MCHC (RBC) [Mass/Vol] 33.7 g/dL Normal 32.0 - 36.0 [facility] Comment on above: Performed By: #### E SRWS #### [facility] [address] [place] [address] MCV (RBC) [Entitic vol] 92 fL Normal 80 - 100 [facility] Comment on above: Performed By: #### E SRWS #### [facility] [address] [place] [address] Monocytes (Bld) [#/Vol] 2.68 10*3/uL High 0.10 - 1.00 [facility] Comment on above: Performed By: #### E SRWS #### [facility] [address] [place] [address] Monocytes/100 WBC (Bld) 12.2 % Normal 2.0 - 10.0 [facility] Comment on above: Performed By: #### E SRWS #### [facility] [address] [place] [address] Neutrophils (Bld) [#/Vol] 17.80 10*3/uL High 1.20 - 7.70 [facility] Comment on above: Performed By: #### E SRWS #### [facility] [address] [place] [address] Neutrophils/100 WBC (Bld) 81.2 % Normal 40.0 - 80.0 [facility] Comment on above: Performed By: #### E SRWS #### [facility] [address] [place] [address] Nucleated RBC/100 WBC (Bld) [Ratio] 0.3 /100 WBC Normal 0.0-0.0 [facility] Comment on above: Performed By: #### E SRWS #### [facility] [address] [place] [address] Platelets (Bld) [#/Vol] 160 10*3/uL Normal 150 - 450 [facility] Comment on above: Performed By: #### E SRWS #### [facility] [address] [place] [address] RBC (Bld) [#/Vol] 3.00 x10E12/L Low 4.50 - 5.90 [facility] Comment on above: Performed By: #### E SRWS #### [facility] [address] [place] [address] WBC (Bld) [#/Vol] 22.0 10*3/uL High 4.4 - 11.3 [facility] Comment on above: Performed By: #### E SRWS #### [facility] [address] [place] [address] COAGULATION SCREENon 020 aPTT Coag (Bld) [Time] Canceled Normal [facility] Comment on above: Order Comment: TEST COAGULATION SCREEN WAS CANCELLED, 01/23/2020 07:00 NO SPECIMEN RECEIVEDIN LAB. Result Comment: Note new reference range as of 11/11/2019. THE APTT IS NO LONGER USED FOR MONITORING UNFRACTIONATED HEPARIN THERAPY. FOR MONITORING HEPARIN THERAPY, USE THE HEPARIN ASSAY. Performed By: #### D BILI #### [facility] [address] [place] [address] INR Coag (PPP) [Relative time] Canceled Normal [facility] Comment on above: Order Comment: TEST COAGULATION SCREEN WAS CANCELLED, 01/23/2020 07:00 NO SPECIMEN RECEIVEDIN LAB. Performed By: #### D BILI #### [facility] [address] [place] [address] PT Coag (PPP) [Time] Canceled Normal [facility] Comment on above: Order Comment: TEST COAGULATION SCREEN WAS CANCELLED, 01/23/2020 07:00 NO SPECIMEN RECEIVEDIN LAB. Result Comment: Note new reference range as of 11/11/2019. Performed By: #### D BILI #### [facility] [address] [place] [address] aPTT Coag (Bld) [Time] 19 s Low 25 - 35 [facility] Comment on above: Result Comment: Note new reference range as of 11/11/2019. THE APTT IS NO LONGER USED FOR MONITORING UNFRACTIONATED HEPARIN THERAPY. FOR MONITORING HEPARIN THERAPY, USE THE HEPARIN ASSAY. Performed By: #### U MELISA #### [facility] [address] [place] [address] INR Coag (PPP) [Relative time] 1.2 {INR} High 0.9 - 1.1 [facility] Comment on above: Performed By: #### U MELISA #### [facility] [address] [place] [address] PT Coag (PPP) [Time] 14.0 s High 10.1 - 13.3 [facility] Comment on above: Result Comment: Note new reference range as of 11/11/2019. Performed By: #### U MELISA #### [facility] [address] [place] [address] Clinical Event Note-Concern for Bleedingon 01-23-2020 Clinical [...] Last Updated: 23-Jan-2020 04:47 by Moy Chino ( (Resident)) Normal [facility] Daily Progress Note - Critic al Lenchoon 01-23-2020 Daily Progress Note - Critical Care Subjective Data: ID Statement: CHRISTIANO ZHENG is a 24 year old Male who is Hospital Day # 3 and ICU Day #2 and POD #2 for 1. laparoscopic splenectomy. Objective Data: Objective Information T PRBPSpO2 [id number]/4791% Date/Time01/22 4: 6: 6: 6: 6:00 Range(36.3C - 37.4C ) (101 - [...] ----- Mn/Dy/Year TimeIntakeOutputNet Jan 23, 2020 6:00 [id number] Jan 22, 2020 10:00 [id number] Jan 22, 2020 2:00 [id number] The Intake and Output Totals for the last 24 hours are: [facility] [id number] Drain and tube details (included in I&O [...] Cl- BUN / 138 103 17 / --------- Glucose ---- 191 H K+ HCO3- Creat \ 4.2 24 1.08 \ Calcium : 8.1 L Anion Gap : 15 RFP: 01/23/2020 03:41 NA+ Cl- BUN / 139 104 12 / --------- Glucose ---- 123 H K+ HCO3- Creat \ 4.1 31 0.86 \ Calcium : 8.0 LAnion Gap : 8 L Albumin : 3.8 Phos : 2.8 Coagulation: 01/23/2020 03:41 PT / 14.0 H / -------< INR < 1.2 H PTT\ 19 L \ Fibrinogen: 248 Recent Arterial Blood Gas Results 01/22/2020 12:51 [id number] pH7.36 [id number] SO299 Base Excess-2.1 [id number] Assessment and Plan: Daily Risk Screen: Does patient have a central lineno Does patient have an indwelling urinary catheteryes Plan for indwelling urinary catheter removal todayyes Is the patient intubatedno Assessment/Plan: Assessment/Plan: Neuro: AOx3. 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 I personally evaluated the patient [id number] Critical Care PatientI have reviewed and evaluated [...] Signatures: Annette Irving) (Signed 23-Jan-2020 13:17) Authored: Signature/Cosignature/A ttestation Co-Signer: Subjective Data, Objective Data, Assessment and Plan, Signature/Cosignature/A ttestation William Gonzalez (MED STUD) (Signed 23-Jan-2020 08:34) Authored: Subjective Data, Objective Data, Assessment and Plan, Signature/Cosignature/A ttestation Farzad Koenig (Resident)) (Signed 23-Jan-2020 12:54) Entered: Assessment and Plan, Signature/Cosignature/A ttestation Authored: Subjective Data, Objective Data, Assessment and Plan, Signature/Cosignature/A ttestation Last Updated: 23-Jan-2020 13:17 by Annette Irving) Normal [facility] Daily Progress Note-Surgeryo n 01-23-2020 Daily Progress [...] yesterday. Objective Data: Objective Information: T PRBPSpO2 [id number]/92152 % Date/Time01/22 4: 7: 7: 7: 7:00 Range(36.3C - 37.4C [...] Moderate ---- Intake and Output ----- Mn/Dy/[facility] Jan 23, 2020 6:00 [id number] Jan 22, 2020 10:00 [id number] Jan 22, 2020 2:00 [id number] The Intake and Output Totals for the last 24 hours are: IntakeOutputNet [id number] Physical Exam: Constitutional: Patient lying comfortably in [...] Cl- BUN / 138 103 17 / --------- Glucose ---- 191 H K+ HCO3- Creat \ 4.2 24 1.08 \ Calcium : 8.1 L Anion Gap : 15 RFP: 01/23/2020 03:41 NA+ Cl- BUN / 139 104 12 / --------- Glucose ---- 123 H K+ HCO3- Creat \ 4.1 31 0.86 \ Calcium : 8.0 LAnion Gap : 8 L Albumin : 3.8 Phos : 2.8 Coagulation: 01/23/2020 03:41 PT / 14.0 H / -------< INR < 1.2 H PTT\ 19 L \ Fibrinogen: 248 Recent Arterial Blood Gas Results 01/22/2020 12:51 [id number] pH7.36 [id number] SO299 Base Excess-2.1 [id number] Assessment and Plan: Comorbidities: Comorbidity: Other Assessment: [...] MSK: Continue bedrest Dispo: pending transfer to [facility] when stable Discussed with Dr. Martina Sylvester, PGY-1 [facility] p: [phone] Signature/Cosignature/A ttestation: Note Completion: I am a: Resident/Fellow Attending [...] the note. I personally evaluated the patient [id number] Electronic Signatures: Eagle Mcmanus) (Signed 23-Jan-2020 08:13) Authored: Signature/Cosignature/A ttestation Co-Signer: Service, Subjective Data, Objective Data, Assessment and Plan, Signature/Cosignature/A ttestation Rosie Sylvester (Resident)) (Signed 23-Jan-2020 08:02) Authored: Service, Subjective Data, Objective Data, Assessment and Plan, Signature/Cosignature/A ttestation Last Updated: 23-Jan-2020 08:13 by Eagle Mcmanus) Normal [facility] FIBRINOGENon 01-23-2020 FIBRINOGEN Canceled Normal [facility] Comment on above: Order Comment: TEST FIBRINOGEN WAS CANCELLED, 01/23/2020 07:00 NO SPECIMEN RECEIVED IN LAB. Performed By: #### D BILI #### [facility] [address] [place] [address] FIBRINOGEN 248 mg/dL Normal 200 - 400 [facility] Comment on above: Performed By: #### U MELISA #### [facility] [address] [place] [address] GLUCOSE-POCTon 01-23-2020 Glucose [Mass/Vol] 116 mg/dL High 74 - 99 [facility] Comment on above: Result Comment: Glu2 : Fingertip - Capillar Performed By: #### U MELISA #### [facility] [address] [place] [address] LACTATEon 01-23-2020 Lactate [Moles/Vol] Canceled Normal [facility] Comment on above: Order Comment: TEST LACTATE WAS CANCELLED, 01/23/2020 05:03 NO SPECIMEN RECEIVED IN LAB. Result Comment: Dacia puncture immediately after or during the administration of Metamizole may lead to falsely low results. Testing should be performed immediately prior to Metamizole dosing. Performed By: #### D BILI #### [facility] [address] [place] [address] MAGNESIUMon 01-23-2020 Magnesium [Mass/Vol] 2.26 mg/dL Normal 1.60 - 2.40 [facility] Comment on above: Performed By: #### D BILI #### [facility] [address] [place] [address] RENAL FUNCTION PANELon 01-22 Albumin [Mass/Vol] 3.8 g/dL Normal 3.4 - 5.0 [facility] Comment on above: Performed By: #### D BILI #### [facility] [address] [place] [address] Anion gap [Moles/Vol] 8 mmol/L Low 10 - 20 [facility] Comment on above: Performed By: #### D BILI #### [facility] [address] [place] [address] Calcium [Mass/Vol] 8.0 mg/dL Low 8.6 - 10.6 [facility] Comment on above: Performed By: #### D BILI #### [facility] [address] [place] [address] Chloride [Moles/Vol] 104 mmol/L Normal 98 - 107 [facility] Comment on above: Performed By: #### D BILI #### [facility] [address] [place] [address] Creatinine [Mass/Vol] 0.86 mg/dL Normal 0.50 - 1.30 [facility] Comment on above: Performed By: #### D BILI #### [facility] [address] [place] [address] GFR- AM. >60 Normal >60 [facility] Comment on above: Result Comment: CALC ULATIONS OF ESTIMATED GFR ARE PERFORMED USING THE MDRD STUDY EQUATION FOR THE IDMS-TRACEABLE CREATININE METHODS. CLIN CHEM 2007;53:766-72 Performed By: #### D BILI #### [facility] [address] [place] [address] GFR-NON AM. >60 Normal >60 [facility] Comment on above: Performed By: #### D BILI #### [facility] [address] [place] [address] Glucose [Mass/Vol] 123 mg/dL High 74 - 99 [facility] Comment on above: Performed By: #### D BILI #### [facility] [address] [place] [address] HCO3 (Bld) [Moles/Vol] 31 mmol/L Normal 21 - 32 [facility] Comment on above: Performed By: #### D BILI #### [facility] [address] [place] [address] Phosphate [Mass/Vol] 2.8 mg/dL Normal 2.5 - 4.9 [facility] Comment on above: Result Comment: The performance characteristics of phosphorus testing in heparinized plasma have been validated by the individual laboratory site where testing is performed. Testing on heparinized plasma is not approved by the FDA; however, such approval is not necessary. Performed By: #### D BILI #### [facility] [address] [place] [address] Potassium [Moles/Vol] 4.1 mmol/L Normal 3.5 - 5.3 [facility] Comment on above: Performed By: #### D BILI #### [facility] [address] [place] [address] Sodium [Moles/Vol] 139 mmol/L Normal 136 - 145 [facility] Comment on above: Performed By: #### D BILI #### [facility] [address] [place] [address] Urea nitrogen [Mass/Vol] 12 mg/dL Normal 6 - 23 [facility] Comment on above: Performed By: #### D BILI #### [facility] [address] [place] [address] 3RD ORD/ABD-Aon 01-22-2020 3RD ORD/ABD-A Patient Name: [...] of the abdomen and pelvis ACCESSION NUMBER(S): [id number]; [id number]; [id number]; [id number]; [id number]; [id number]; [id number]; [id number]; [id number]; [id number] ORDERING CLINICIAN: FARZAD KOENIG OPERATORS: Dr. Sg [...] The needle was exchanged for a 5 Guyanese transitional catheter. The inner dilator and the 0.018 wire were removed and a 0.035 wire was advanced into the abdominal aorta. The transitional catheter was exchanged for a 5 Guyanese vascular sheath, which was attached to a heparinized pressure bag of normal saline. Right common femoral arteriogram was performed which demonstrates adequate arterial access for use of closure device, cephalad to the bifurcation and caudad to the inferior epigastric artery origin. A 5 Guyanese Cobra C2 catheter was advanced over the [...] extravasation. Electronically signed by: FREDDIE HURT MD [facility] ADD /A-Felice 01-22-2020 ADD /A-P Patient Name: [...] of the abdomen and pelvis ACCESSION NUMBER(S): [id number]; [id number]; [id number]; [id number]; [id number]; [id number]; [id number]; [id number]; [id number]; [id number]; [id number] ORDERING CLINICIAN: FARZAD KOENIG OPERATORS: Dr. Sg [...] The needle was exchanged for a 5 Guyanese transitional catheter. The inner dilator and the 0.018 wire were removed and a 0.035 wire was advanced into the abdominal aorta. The transitional catheter was exchanged for a 5 Guyanese vascular sheath, which was attached to a heparinized pressure bag of normal saline. Right common femoral arteriogram was performed which demonstrates adequate arterial access for use of closure device, cephalad to the bifurcation and caudad to the inferior epigastric artery origin. A 5 Guyanese Cobra C2 catheter was advanced over the [...] Electronically signed by: FREDDIE HURT MD Normal [facility] ARTERIAL FULL PANELon 2019 Anion gap [Moles/Vol] 11 mmol/L Normal 10 - 25 [facility] Comment on above: Performed By: #### L #### [facility] [address] [place] [address] BASE EXCESS-BLOOD -2.1 mmol/L Low -2.0 - 3.0 [facility] Comment on above: Performed By: #### L #### [facility] [address] [place] [address] CALCIUM,IONIZED 1.13 mmol/L Normal 1.10 - 1.33 [facility] Comment on above: Performed By: #### L DH #### [facility] [address] [place] [address] Chloride [Moles/Vol] 103 mmol/L Normal 98 - 107 [facility] Comment on above: Performed By: #### L DH #### [facility] [address] [place] [address] Glucose [Mass/Vol] 147 mg/dL High 74 - 99 [facility] Comment on above: Performed By: #### L DH #### [facility] [address] [place] [address] Hematocrit (Bld) [Volume fraction] 23.0 % Low 41.0 - 52.0 [facility] Comment on above: Performed By: #### L DH #### [facility] [address] [place] [address] HGB,CALCULATED 7.8 g/dL Low 13.5 - 17.5 [facility] Comment on above: Performed By: #### L DH #### [facility] [address] [place] [address] Lactate [Moles/Vol] 3.4 mmol/L High 0.4 - 2.0 [facility] Comment on above: Performed By: #### L DH #### [facility] [address] [place] [address] Oxygen (Bld) [Partial pressure] 154 mm[Hg] High 85 - 95 [facility] Comment on above: Performed By: #### L DH #### [facility] [address] [place] [address] PCO2 41 mmHg Normal 38 - 42 [facility] Comment on above: Performed By: #### L DH #### [facility] [address] [place] [address] pH (Bld) 7.36 [pH] Low 7.38 - 7.42 [facility] Comment on above: Performed By: #### L DH #### [facility] [address] [place] [address] Potassium [Moles/Vol] 5.3 mmol/L Normal 3.5 - 5.3 [facility] Comment on above: Performed By: #### L DH #### [facility] [address] [place] [address] RBC (Bld) [#/Vol] 23.2 mmol/L Normal 22.0 - 26.0 [facility] Comment on above: Performed By: #### L DH #### [facility] [address] [place] [address] SO2 99 % Normal 94 - 100 [facility] Comment on above: Performed By: #### L DH #### [facility] [address] [place] [address] Sodium [Moles/Vol] 132 mmol/L Low 136 - 145 [facility] Comment on above: Performed By: #### L DH #### [facility] [address] [place] [address] BA CTA ABDOMEN PELVIS WITH C ONT INCL NON CONT IMAGE W POST PROCon 01-22-2020 BA CTA ABDOMEN PELVIS WITH CONT INCL NON CONT IMAGE W POST PROC Patient Name: CHRISTIANO ZHENG STUDY: CTA ABDOMEN PELVIS WITH CONT INCL NON CONT IMAGE W POST PROC; 01/22/2020 9:40 am INDICATION: Bleeding s/p spleenectomy, Lie Flat: Yes. COMPARISON: CT abdomen pelvis dated 11/14/2019 ACCESSION NUMBER(S): [id number] ORDERING CLINICIAN: ANNETTE KAUFMAN TECHNIQUE: CT of [...] no wall thickening. The appendix is normal. PERITONEUM/RETROPERITON EUM/LYMPH NODES: There is large volume layering hyperdense [...] as stated. This study was interpreted at [facility], [place], [place]. Electronically signed by: FREDDIE HURT MD Normal [facility] BASIC METABOLIC PANELon 08-0 Anion gap [Moles/Vol] 15 mmol/L Normal 10 - 20 [facility] Comment on above: Performed By: #### C BCDF #### [facility] [address] [place] [address] Calcium [Mass/Vol] 8.1 mg/dL Low 8.6 - 10.6 [facility] Comment on above: Performed By: #### C BCDF #### [facility] [address] [place] [address] Chloride [Moles/Vol] 103 mmol/L Normal 98 - 107 [facility] Comment on above: Performed By: #### C BCDF #### [facility] [address] [place] [address] Creatinine [Mass/Vol] 1.08 mg/dL Normal 0.50 - 1.30 [facility] Comment on above: Performed By: #### C BCDF #### [facility] [address] [place] [address] GFR- AM. >60 Normal >60 [facility] Comment on above: Result Comment: CALC ULATIONS OF ESTIMATED GFR ARE PERFORMED USING THE MDRD STUDY EQUATION FOR THE IDMS-TRACEABLE CREATININE METHODS. CLIN CHEM 2007;53:766-72 Performed By: #### C BCDF #### [facility] [address] [place] [address] GFR-NON AM. >60 Normal >60 [facility] Comment on above: Performed By: #### C BCDF #### [facility] [address] [place] [address] Glucose [Mass/Vol] 191 mg/dL High 74 - 99 [facility] Comment on above: Performed By: #### C BCDF #### [facility] [address] [place] [address] HCO3 (Bld) [Moles/Vol] 24 mmol/L Normal 21 - 32 [facility] Comment on above: Performed By: #### C BCDF #### [facility] [address] [place] [address] Potassium [Moles/Vol] 4.2 mmol/L Normal 3.5 - 5.3 [facility] Comment on above: Performed By: #### C BCDF #### [facility] [address] [place] [address] Sodium [Moles/Vol] 138 mmol/L Normal 136 - 145 [facility] Comment on above: Performed By: #### C BCDF #### [facility] [address] [place] [address] Urea nitrogen [Mass/Vol] 17 mg/dL Normal 6 - 23 [facility] Comment on above: Performed By: #### C BCDF #### [facility] [address] [place] [address] CALCIUM, IONIZEDon 0 CALCIUM,IONIZED 1.12 mmol/L Normal 1.10 - 1.33 [facility] Comment on above: Result Comment: The performance characteristics of ionized calcium tested in heparinized plasma or serum have been validated by the individual laboratory site where testing is performed. Testing on heparinized plasma or serum is not approved by the FDA; however, such approval is not necessary. Performed By: #### L DH #### [facility] [address] [place] [address] CBCon 01-22-2020 Erythrocyte distribution width (RBC) [Ratio] 17.3 % High 11.5 - 14.5 [facility] Comment on above: Performed By: #### L DH #### [facility] [address] [place] [address] Hematocrit (Bld) [Volume fraction] 25.8 % Low 41.0 - 52.0 [facility] Comment on above: Performed By: #### L DH #### [facility] [address] [place] [address] Hemoglobin (Bld) [Mass/Vol] 8.9 g/dL Low 13.5 - 17.5 [facility] Comment on above: Performed By: #### L DH #### [facility] [address] [place] [address] MCHC (RBC) [Mass/Vol] 34.5 g/dL Normal 32.0 - 36.0 [facility] Comment on above: Performed By: #### L DH #### [facility] [address] [place] [address] MCV (RBC) [Entitic vol] 88 fL Normal 80 - 100 [facility] Comment on above: Performed By: #### L DH #### [facility] [address] [place] [address] Nucleated RBC/100 WBC (Bld) [Ratio] 0.2 /100 WBC Normal 0.0-0.0 [facility] Comment on above: Performed By: #### L DH #### [facility] [address] [place] [address] Platelets (Bld) [#/Vol] 117 10*3/uL Low 150 - 450 [facility] Comment on above: Performed By: #### L DH #### [facility] [address] [place] [address] RBC (Bld) [#/Vol] 2.92 x10E12/L Low 4.50 - 5.90 [facility] Comment on above: Performed By: #### L DH #### [facility] [address] [place] [address] WBC (Bld) [#/Vol] 20.5 10*3/uL High 4.4 - 11.3 [facility] Comment on above: Performed By: #### L DH #### [facility] [address] [place] [address] Erythrocyte distribution width (RBC) [Ratio] Canceled Normal [facility] Comment on above: Order Comment: TEST CBC WAS CANCELLED, 01/22/2020 14:55 SPECIMEN CLOTTED.PLEASE RESUBMIT. Performed By: #### L DH #### [facility] [address] [place] [address] Hematocrit (Bld) [Volume fraction] Canceled Normal [facility] Comment on above: Order Comment: TEST CBC WAS CANCELLED, 01/22/2020 14:55 SPECIMEN CLOTTED.PLEASE RESUBMIT. Performed By: #### L DH #### [facility] [address] [place] [address] Hemoglobin (Bld) [Mass/Vol] Canceled Normal [facility] Comment on above: Order Comment: TEST CBC WAS CANCELLED, 01/22/2020 14:55 SPECIMEN CLOTTED.PLEASE RESUBMIT. Performed By: #### L DH #### [facility] [address] [place] [address] MCHC (RBC) [Mass/Vol] Canceled Normal [facility] Comment on above: Order Comment: TEST CBC WAS CANCELLED, 01/22/2020 14:55 SPECIMEN CLOTTED.PLEASE RESUBMIT. Performed By: #### L DH #### [facility] [address] [place] [address] MCV (RBC) [Entitic vol] Canceled Normal [facility] Comment on above: Order Comment: TEST CBC WAS CANCELLED, 01/22/2020 14:55 SPECIMEN CLOTTED.PLEASE RESUBMIT. Performed By: #### L DH #### [facility] [address] [place] [address] Nucleated RBC/100 WBC (Bld) [Ratio] Canceled Normal [facility] Comment on above: Order Comment: TEST CBC WAS CANCELLED, 01/22/2020 14:55 SPECIMEN CLOTTED.PLEASE RESUBMIT. Performed By: #### L DH #### [facility] [address] [place] [address] Platelets (Bld) [#/Vol] Canceled Normal [facility] Comment on above: Order Comment: TEST CBC WAS CANCELLED, 01/22/2020 14:55 SPECIMEN CLOTTED.PLEASE RESUBMIT. Performed By: #### L DH #### [facility] [address] [place] [address] RBC (Bld) [#/Vol] Canceled Normal [facility] Comment on above: Order Comment: TEST CBC WAS CANCELLED, 01/22/2020 14:55 SPECIMEN CLOTTED.PLEASE RESUBMIT. Performed By: #### L DH #### [facility] [address] [place] [address] WBC (Bld) [#/Vol] Canceled Normal [facility] Comment on above: Order Comment: TEST CBC WAS CANCELLED, 01/22/2020 14:55 SPECIMEN CLOTTED.PLEASE RESUBMIT. Performed By: #### L DH #### [facility] [address] [place] [address] Erythrocyte distribution width (RBC) [Ratio] 18.6 % High 11.5 - 14.5 [facility] Comment on above: Performed By: #### C BCDF #### [facility] [address] [place] [address] Hematocrit (Bld) [Volume fraction] 19.9 % Low 41.0 - 52.0 [facility] Comment on above: Performed By: #### C BCDF #### [facility] [address] [place] [address] Hemoglobin (Bld) [Mass/Vol] 6.8 g/dL Low 13.5 - 17.5 [facility] Comment on above: Performed By: #### C BCDF #### [facility] [address] [place] [address] MCHC (RBC) [Mass/Vol] 34.2 g/dL Normal 32.0 - 36.0 [facility] Comment on above: Performed By: #### C BCDF #### [facility] [address] [place] [address] MCV (RBC) [Entitic vol] 88 fL Normal 80 - 100 [facility] Comment on above: Performed By: #### C BCDF #### [facility] [address] [place] [address] Nucleated RBC/100 WBC (Bld) [Ratio] 0.0 /100 WBC Normal 0.0-0.0 [facility] Comment on above: Performed By: #### C BCDF #### [facility] [address] [place] [address] Platelets (Bld) [#/Vol] 141 10*3/uL Low 150 - 450 [facility] Comment on above: Performed By: #### C BCDF #### [facility] [address] [place] [address] RBC (Bld) [#/Vol] 2.27 x10E12/L Low 4.50 - 5.90 [facility] Comment on above: Performed By: #### C BCDF #### [facility] [address] [place] [address] WBC (Bld) [#/Vol] 16.2 10*3/uL High 4.4 - 11.3 [facility] Comment on above: Performed By: #### C BCDF #### [facility] [address] [place] [address] Erythrocyte distribution width (RBC) [Ratio] 18.5 % High 11.5 - 14.5 [facility] Comment on above: Performed By: #### R ETIC #### [facility] [address] [place] [address] Hematocrit (Bld) [Volume fraction] 25.2 % Low 41.0 - 52.0 [facility] Comment on above: Performed By: #### R ETIC #### [facility] [address] [place] [address] Hemoglobin (Bld) [Mass/Vol] 8.6 g/dL Low 13.5 - 17.5 [facility] Comment on above: Performed By: #### R ETIC #### [facility] [address] [place] [address] MCHC (RBC) [Mass/Vol] 34.1 g/dL Normal 32.0 - 36.0 [facility] Comment on above: Performed By: #### R ETIC #### [facility] [address] [place] [address] MCV (RBC) [Entitic vol] 85 fL Normal 80 - 100 [facility] Comment on above: Performed By: #### R ETIC #### [facility] [address] [place] [address] Nucleated RBC/100 WBC (Bld) [Ratio] 0.0 /100 WBC Normal 0.0-0.0 [facility] Comment on above: Performed By: #### R ETIC #### [facility] [address] [place] [address] Platelets (Bld) [#/Vol] 160 10*3/uL Normal 150 - 450 [facility] Comment on above: Performed By: #### R ETIC #### [facility] [address] [place] [address] RBC (Bld) [#/Vol] 2.95 x10E12/L Low 4.50 - 5.90 [facility] Comment on above: Performed By: #### R ETIC #### [facility] [address] [place] [address] WBC (Bld) [#/Vol] 17.8 10*3/uL High 4.4 - 11.3 [facility] Comment on above: Performed By: #### R ETIC #### [facility] [address] [place] [address] Erythrocyte distribution width (RBC) [Ratio] 18.6 % High 11.5 - 14.5 [facility] Comment on above: Performed By: #### R ETIC #### [facility] [address] [place] [address] Hematocrit (Bld) [Volume fraction] 32.4 % Low 41.0 - 52.0 [facility] Comment on above: Performed By: #### R ETIC #### [facility] [address] [place] [address] Hemoglobin (Bld) [Mass/Vol] 11.2 g/dL Low 13.5 - 17.5 [facility] Comment on above: Performed By: #### R ETIC #### [facility] [address] [place] [address] MCHC (RBC) [Mass/Vol] 34.6 g/dL Normal 32.0 - 36.0 [facility] Comment on above: Performed By: #### R ETIC #### [facility] [address] [place] [address] MCV (RBC) [Entitic vol] 85 fL Normal 80 - 100 [facility] Comment on above: Performed By: #### R ETIC #### [facility] [address] [place] [address] Nucleated RBC/100 WBC (Bld) [Ratio] 0.1 /100 WBC Normal 0.0-0.0 [facility] Comment on above: Performed By: #### R ETIC #### [facility] [address] [place] [address] Platelets (Bld) [#/Vol] 197 10*3/uL Normal 150 - 450 [facility] Comment on above: Performed By: #### R ETIC #### [facility] [address] [place] [address] RBC (Bld) [#/Vol] 3.82 x10E12/L Low 4.50 - 5.90 [facility] Comment on above: Performed By: #### R ETIC #### [facility] [address] [place] [address] WBC (Bld) [#/Vol] 23.6 10*3/uL High 4.4 - 11.3 [facility] Comment on above: Performed By: #### R ETIC #### [facility] [address] [place] [address] COAGULATION SCREENon 020 aPTT Coag (Bld) [Time] 24 s Low 25 - 35 [facility] Comment on above: Result Comment: Note new reference range as of 11/11/2019. THE APTT IS NO LONGER USED FOR MONITORING UNFRACTIONATED HEPARIN THERAPY. FOR MONITORING HEPARIN THERAPY, USE THE HEPARIN ASSAY. Performed By: #### L #### [facility] [address] [place] [address] INR Coag (PPP) [Relative time] 1.3 {INR} High 0.9 - 1.1 [facility] Comment on above: Performed By: #### L #### [facility] [address] [place] [address] PT Coag (PPP) [Time] 15.7 s High 10.1 - 13.3 [facility] Comment on above: Result Comment: Note new reference range as of 11/11/2019. Performed By: #### L #### [facility] [address] [place] [address] aPTT Coag (Bld) [Time] Canceled Normal [facility] Comment on above: Order Comment: TEST COAGULATION SCREEN WAS CANCELLED, 01/22/2020 10:23 SPECIMENCLOTTED.PLEASE RESUBMIT. Result Comment: Note new reference range as of 11/11/2019. THE APTT IS NO LONGER USED FOR MONITORING UNFRACTIONATED HEPARIN THERAPY. FOR MONITORING HEPARIN THERAPY, USE THE HEPARIN ASSAY. Performed By: #### L #### [facility] [address] [place] [address] INR Coag (PPP) [Relative time] Canceled Normal [facility] Comment on above: Order Comment: TEST COAGULATION SCREEN WAS CANCELLED, 01/22/2020 10:23 SPECIMENCLOTTED.PLEASE RESUBMIT. Performed By: #### L DH #### [facility] [address] [place] [address] PT Coag (PPP) [Time] Canceled Normal [facility] Comment on above: Order Comment: TEST COAGULATION SCREEN WAS CANCELLED, 01/22/2020 10:23 SPECIMENCLOTTED.PLEASE RESUBMIT. Result Comment: Note new reference range as of 11/11/2019. Performed By: #### L DH #### [facility] [address] [place] [address] aPTT Coag (Bld) [Time] 22 s Low 25 - 35 [facility] Comment on above: Result Comment: Note new reference range as of 11/11/2019. THE APTT IS NO LONGER USED FOR MONITORING UNFRACTIONATED HEPARIN THERAPY. FOR MONITORING HEPARIN THERAPY, USE THE HEPARIN ASSAY. Performed By: #### R ETIC #### [facility] [address] [place] [address] INR Coag (PPP) [Relative time] 1.2 {INR} High 0.9 - 1.1 [facility] Comment on above: Performed By: #### R ETIC #### [facility] [address] [place] [address] PT Coag (PPP) [Time] 14.4 s High 10.1 - 13.3 [facility] Comment on above: Result Comment: Note new reference range as of 11/11/2019. Performed By: #### R ETIC #### [facility] [address] [place] [address] COMPREHENSIVE PANELon 2019 Albumin [Mass/Vol] 3.8 g/dL Normal 3.4 - 5.0 [facility] Comment on above: Performed By: #### C BCDF #### [facility] [address] [place] [address] ALP [Catalytic activity/Vol] 33 U/L Normal 33 - 120 [facility] Comment on above: Performed By: #### C BCDF #### [facility] [address] [place] [address] ALT [Catalytic activity/Vol] 12 U/L Normal 10 - 52 [facility] Comment on above: Result Comment: Haily ents treated with Sulfasalazine may generate falsely decreased results for ALT. Performed By: #### C BCDF #### [facility] [address] [place] [address] Anion gap [Moles/Vol] 20 mmol/L Normal 10 - 20 [facility] Comment on above: Performed By: #### C BCDF #### [facility] [address] [place] [address] AST [Catalytic activity/Vol] 14 U/L Normal 9 - 39 [facility] Comment on above: Performed By: #### C BCDF #### [facility] [address] [place] [address] Bilirubin [Mass/Vol] 1.1 mg/dL Normal 0.0 - 1.2 [facility] Comment on above: Performed By: #### C BCDF #### [facility] [address] [place] [address] Calcium [Mass/Vol] 8.5 mg/dL Low 8.6 - 10.6 [facility] Comment on above: Performed By: #### C BCDF #### [facility] [address] [place] [address] Chloride [Moles/Vol] 102 mmol/L Normal 98 - 107 [facility] Comment on above: Performed By: #### C BCDF #### [facility] [address] [place] [address] Creatinine [Mass/Vol] 1.22 mg/dL Normal 0.50 - 1.30 [facility] Comment on above: Performed By: #### C BCDF #### [facility] [address] [place] [address] GFR- AM. >60 Normal >60 [facility] Comment on above: Result Comment: CALC ULATIONS OF ESTIMATED GFR ARE PERFORMED USING THE MDRD STUDY EQUATION FOR THE IDMS-TRACEABLE CREATININE METHODS. CLIN CHEM 2007;53:766-72 Performed By: #### C BCDF #### [facility] [address] [place] [address] GFR-NON AM. >60 Normal >60 [facility] Comment on above: Performed By: #### C BCDF #### [facility] [address] [place] [address] Glucose [Mass/Vol] 189 mg/dL High 74 - 99 [facility] Comment on above: Performed By: #### C BCDF #### [facility] [address] [place] [address] HCO3 (Bld) [Moles/Vol] 20 mmol/L Low 21 - 32 [facility] Comment on above: Performed By: #### C BCDF #### [facility] [address] [place] [address] Potassium [Moles/Vol] 4.2 mmol/L Normal 3.5 - 5.3 [facility] Comment on above: Performed By: #### C BCDF #### [facility] [address] [place] [address] Protein [Mass/Vol] 5.0 g/dL Low 6.4 - 8.2 [facility] Comment on above: Performed By: #### C BCDF #### [facility] [address] [place] [address] Sodium [Moles/Vol] 138 mmol/L Normal 136 - 145 [facility] Comment on above: Performed By: #### C BCDF #### [facility] [address] [place] [address] Urea nitrogen [Mass/Vol] 16 mg/dL Normal 6 - 23 [facility] Comment on above: Performed By: #### C BCDF #### [facility] [address] [place] [address] Clinical Event Note-Postop C heck/Acute clinical event late olinda 01-22-2020 Clinical Event Note-Postop Check/Acute clinical event late [...] Mcmanus. Adelso Lopez MD General Surgery PGY-1 [place] Pager: [phone] Electronic Signatures: Sen Colindres (Resident)) (Signed 22-Jan-2020 05:22) Authored: Clinical Event Adelso Lopez (Resident)) (Signed 22-Jan-2020 05:04) Authored: Clinical Event Last Updated: 22-Jan-2020 05:22 by Sen Colindres (Resident)) Normal [facility] Clinical Event Note-Rapid re sponse/code esequiel 01-22-2020 Clinical Event Note-Rapid response/code white Clinical Event: Clinical Event Note: TopicRapid response/code roselia Details 24 years old male admitted under [...] evaluated the patient Electronic Signatures: Francisca Blanco ( (Resident)) (Signed 22-Jan-2020 06:27) Authored: Clinical Event Last Updated: 22-Jan-2020 06:27 by Francisca Blanco ( (Resident)) Normal [facility] Daily Progress Note-Surgeryo n 01-22-2020 Daily Progress Note-Surgery Service: Surgery Subjective Data: CHRISTIANO ZHENG is a 24 year old Male who is Hospital Day # 2 and POD #1 for 1. laparoscopic splenectomy. Patient complaining of increased pain in abdomen. Vital signs were unstable and patient became obtunded. Received 4L boluses and 3 pRBCs. Escalated to ICU. Objective Data: Objective Information: T PRBPSpO2 Value36.447749817/23139 % Date/Time01/21 13:008 14:008 14:008 14:008 14:00 Range(36.1C - 36.6C ) (88 - 136 ) (15 - 45 ) (84 - 144 )/ (51 - 99 ) (94% - 100% ) Pain reported at 01/21 13:30: sleeping ---- Intake and Output ----- Mn/Dy/Year TimeIntakeOutputNet Jan 22, 2020 2:00 [id number] Jan 22, 2020 6:00 [id number] Jan 21, 2020 10:00 [id number] The Intake and Output Totals for the last 24 hours are: IntakeOutputNet [id number] Physical Exam: Constitutional: Well developed, lying in [...] 8.1 HH Complete Blood Count Trending View [id number] 07:38:00 22-Jan-2020 04:38:00 22-Jan-2020 01:19:00 White Blood Cell Count16.2 H 17.8 H 23.6 H Nucleated Erythrocyte Count0.0 0.0 0.1 Red Blood Cell Count2.27 L 2.95 L 3.82 L HGB6.8 L 8.6 L 11.2 L HCT19.9 L 25.2 L 32.4 L MCV88 85 85 MCHC34.2 34.1 34.6 GNY243 L 160 197 RDW-CV18.6 H 18.5 H [...] per ICU managment Dispo: pending transfer to [facility] when stable Discussed with Dr. Martina Rinaldi MD [place] - General Surgery p: [phone] Attending: Pt had successful embolization of spleen This evening when I saw him he was stable. Will watch in ICU overnight Electronic Signatures: Jluis Rinaldi ( (Resident)) (Signed 22-Jan-2020 14:57) Authored: Service, Subjective Data, Objective Data, Assessment and Plan, Signature/Cosignature/A ttestation Eagle Mcmanus) (Signed 22-Jan-2020 23:02) Authored: Assessment and Plan, Signature/Cosignature/A ttestation Co-Signer: Service, Subjective Data, Objective Data, Assessment and Plan, Signature/Cosignature/A ttestation Last Updated: 22-Jan-2020 23:02 by Eagle Mcmanus) [facility] Discharge Planning [id number] 0 01-22-2020 Discharge Planning Note2 Discharge Planning: Anticipated Discharge [id number] Discharge Planning 01/22/2020 Transitional Care Coordination Progress Note 1638 Patient discussed during interdisciplinary rounds. Team members present: TCC;PCBrown;;BRIA Plan per Medical team: s/p splenic embolization; transfer to floor soon Status: inpatient insurance: [employer] Discharge disposition: probable home NN Potential Barriers: none adod: 3 days Malena Abbott RN TCC doc halo..[phone] 01/24/2020 handkerchief presser Note 1140 Pt transferred to [facility] from [facility]. Pt came over on a fentinyl TOMBSTONE ERECTOR. Vitals stable on 2L O2. Pt belongings on transfer are clothing, wallet, some gifts, manifest/order organizer print orders, and cell phone. pt wanted to keep his belongings at the bedside and signed the belongings form. at the bedside. Strip and flip performed with pt 4 laps sites on his abd as his only incision. No other skin issues upon transfer. (Evelyn Fuentes, RN D 55) 01/26/2020 Transitional Care Coordination Progress Note: Patient discussed during interdisciplinary rounds. Team members present: TCC and medical staff Plan per Medical/Surgical team: S/p lap Splenectomy 8/5 Payer: Mariel Status: inpatient Discharge disposition: home Potential Barriers: none ADOD: 01/27 Femi Ramos RNperformance reporter Coordinator pager #[phone], 01/28/20 18:28 NURSING DISCHARGE [...] Kathy Chavez RN Assessment: Discharge Planning Assessment [id number] Discharge Planning Assessment Completed byMalena Abbott RN TCC doc halo..[phone] Primary Contact Name and NumberCindy daly - [phone](1) Stated Reason for Admission my operation (2) Arrived [place] (2) Readmission Within the Last 30 Daysno previous admission in last 30 days PCPDr. Alem Blunt PCP Last Date Seen12/2019 [facility]erred Pharmacy [facility] Medication Adherence/Afford/Obtain yes InsuranceAnthem HMp Lives Withspouse(2) Living Arrangementshouse(2) Recent Falls/ Injury/ Need Assist with Ambulationdenies Prior Level of FunctioningIADL's Resource/Environmental Concernsnone(2) Anticipated Transition [facility]) Services Anticipated at Transitionnone(2) Electronic Signatures: Femi Ramos (RN) (Signed 26-Jan-2020 17:44) Authored: Discharge Planning Note2 Kathy Chavez (RN) (Signed 28-Jan-2020 20:11) Authored: Discharge Planning Note2 Evelyn Fuentes (CN) (Signed 24-Jan-2020 12:36) Authored: Discharge Planning Note2 Malena Abbott (CLIN COOR) (Signed 22-Jan-2020 16:40) Authored: Discharge Planning Note2 Last Updated: 28-Jan-2020 20:11 by Kathy Chavez (RN) References: 1. Data Referenced From Patient Profile - Preop v2 21-Jan-2020 10:09 2. Data Referenced From Patient Profile - Adult v2 21-Jan-2020 18:51 Normal [facility] EACH-ADDon 01-22-2020 EACH-ADD Patient Name: CHRISTIANO ZHENG [...] of the abdomen and pelvis ACCESSION NUMBER(S): [id number]; [id number]; [id number]; [id number]; [id number]; [id number]; [id number]; [id number]; [id number]; [id number]; [id number] ORDERING CLINICIAN: FARZAD KOENIG OPERATORS: Dr. Sg [...] The needle was exchanged for a 5 Guyanese transitional catheter. The inner dilator and the 0.018 wire were removed and a 0.035 wire was advanced into the abdominal aorta. The transitional catheter was exchanged for a 5 Guyanese vascular sheath, which was attached to a heparinized pressure bag of normal saline. Right common femoral arteriogram was performed which demonstrates adequate arterial access for use of closure device, cephalad to the bifurcation and caudad to the inferior epigastric artery origin. A 5 Guyanese Cobra C2 catheter was advanced over the [...] extravasation. Electronically signed by: FREDDIE HURT MD [facility] EXT-ART/UNI-Aon 01-22-2020 EXT-ART/UNI-A Patient Name: CHRISTIANO ZHENG [...] of the abdomen and pelvis ACCESSION NUMBER(S): [id number]; [id number]; [id number]; [id number]; [id number]; [id number]; [id number]; [id number]; [id number]; [id number]; [id number] ORDERING CLINICIAN: FARZAD KOENIG OPERATORS: Dr. Sg [...] The needle was exchanged for a 5 Guyanese transitional catheter. The inner dilator and the 0.018 wire were removed and a 0.035 wire was advanced into the abdominal aorta. The transitional catheter was exchanged for a 5 Guyanese vascular sheath, which was attached to a heparinized pressure bag of normal saline. Right common femoral arteriogram was performed which demonstrates adequate arterial access for use of closure device, cephalad to the bifurcation and caudad to the inferior epigastric artery origin. A 5 Guyanese Cobra C2 catheter was advanced over the [...] extravasation. Electronically signed by: FREDDIE HURT MD [facility] EXT/UNIon 01-22-2020 EXT/UNI Patient Name: CHRISTIANO ZHENG [...] of the abdomen and pelvis ACCESSION NUMBER(S): [id number]; [id number]; [id number]; [id number]; [id number]; [id number]; [id number]; [id number]; [id number]; [id number]; [id number] ORDERING CLINICIAN: FARZAD KOENIG OPERATORS: Dr. Sg [...] The needle was exchanged for a 5 Guyanese transitional catheter. The inner dilator and the 0.018 wire were removed and a 0.035 wire was advanced into the abdominal aorta. The transitional catheter was exchanged for a 5 Guyanese vascular sheath, which was attached to a heparinized pressure bag of normal saline. Right common femoral arteriogram was performed which demonstrates adequate arterial access for use of closure device, cephalad to the bifurcation and caudad to the inferior epigastric artery origin. A 5 Guyanese Cobra C2 catheter was advanced over the [...] Electronically signed by: FREDDIE HURT MD Normal [facility] GLUCOSE-POCTon 01-22-2020 Glucose [Mass/Vol] 183 mg/dL High 74 - 99 [facility] Comment on above: Performed By: #### R ETIC #### [facility] [address] [place] [address] Glucose [Mass/Vol] 194 mg/dL High 74 - 99 [facility] Comment on above: Performed By: #### R ETIC #### [facility] [address] [place] [address] History and Physical - Yasmine Kaminski 01-22-2020 History and Physical - Critical Care Service: Critical Care Service: ServiceSICU History of Present Illness: Admission Reason: postop bleeding HPI: HPI: 24 year old male with history of hereditary spherocytosis presented for splenectomy on 01/[address] Dunlap. Patient went to [facility] after surgery. This AM, on 01/21, code [...] Objective: Objective Information: Objective Information T PRBPSpO2 Value36.725873062/15975 % Date/Time01/21 8: 13: 13: 13: 13:30 Range(36.1C - 36.6C ) (88 - 136 ) (15 - 45 ) (84 - 144 )/ (51 - 99 ) (94% - 100% ) Pain reported at 01/21 11:50: sleeping ---- Intake and Output ----- Mn/Dy/Year TimeIntakeOutputNet Jan 22, 2020 6:00 [id number] Jan 21, 2020 10:00 [id number] The Intake and Output Totals for the last 24 hours are: IntakeOutputNet [id number] Date: Weight/Scale Type: 22-Jan-2020 09:5474.6 kg 21-Jan-2020 [...] mood and behavior Medications: Medications: Continuous Medications --------- 1. Lactated Ringers Infusion: 1000 mL IntraVenous Scheduled Medications --------- 1. Lactated Ringers IV Bolus: 1000 mL IntraVenous Piggyback Once 2. Lactated Ringers IV Bolus: 1000 mL IntraVenous Piggyback Once PRN Medications --------- 1. Acetaminophen: 650 mg Oral Every 6 [...] Piggyback Every 6 Hours Currently Suspended Medications --------- 1. Heparin SubCutaneous: 5000 unit(s) SubCutaneous Every [...] 8.1 HH Complete Blood Count Trending View [id number] 07:38:00 22-Jan-2020 04:38:00 22-Jan-2020 01:19:00 White Blood Cell Count16.2 H 17.8 H 23.6 H Nucleated Erythrocyte Count0.0 0.0 0.1 Red Blood Cell Count2.27 L 2.95 L 3.82 L HGB6.8 L 8.6 L 11.2 L HCT19.9 L 25.2 L 32.4 L MCV88 85 85 MCHC34.2 34.1 34.6 ZKE000 L 160 197 RDW-CV18.6 H 18.5 H [...] Lines: 3 PIV Farzad Koenig PGY4/CA3 SICU 90449 Code Status: Code StatusFull Code Signatures/Attestation/ Certification: Note Completion: I am a: Resident/Fellow Attending [...] the note. I personally evaluated the patient [id number] Critical Care PatientI have reviewed and evaluated [...] OnlyCurrent Admission Order. [place] [facility] [place]mitting Diagnosis, D58.0 Hereditary spherocytosis Transfer to, [facility]: [facility] [place] [facility] TT09 Division Admitting Service, Acute Care Surgery Level of Care, Med/Surg admit to [place] surgery service Lynnette Kaiser Admission Order Certification order has been placed by Eagle Mcmanus Electronic Signatures: Annette Irving) (Signed 22-Jan-2020 15:31) Authored: Signatures/Attestation/ Certification Co-Signer: Service, History of Present Illness, Comorbidities, Allergies, Medications Prior to Admission, Objective, Assessment and Plan, Signatures/Attestation/ Certification Farzad Koenig ( (Resident)) (Signed 22-Jan-2020 14:02) Authored: Service, History of Present Illness, Comorbidities, Allergies, Medications Prior to Admission, Objective, Assessment and Plan, Signatures/Attestation/ Certification Last Updated: 22-Jan-2020 15:31 by Annette Irving) Normal [facility] LACTATEon 01-22-2020 Lactate [Moles/Vol] 8.1 mmol/L Critically high 0.4 - 2.0 [facility] Comment on above: Order Comment: CRITI FARHANA LACT CALLED TO FARTUN QUINTANA-PITA 2ID, 01/22/2020 10:22 Result Comment: Dacia puncture immediately after or during the administration of Metamizole may lead to falsely low results. Testing should be performed immediately prior to Metamizole dosing. CRITICAL LACT CALLED TO FARTUN QUINTANA--RB 2ID, 01/22/2020 10:22 Performed By: #### C BCDF #### [facility] [address] [place] [address] MAGNESIUMon 01-22-2020 Magnesium [Mass/Vol] 1.63 mg/dL Normal 1.60 - 2.40 [facility] Comment on above: Performed By: #### L DH #### [facility] [address] [place] [address] Magnesium [Mass/Vol] 1.60 mg/dL Normal 1.60 - 2.40 [facility] Comment on above: Performed By: #### C BCDF #### [facility] [address] [place] [address] PLASMAon 01-22-2020 PLASMA ORDER RECD Normal [facility] Comment on above: Performed By: #### C BCDF #### [facility] [address] [place] [address] RENAL FUNCTION PANELon 01-21 Albumin [Mass/Vol] 3.5 g/dL Normal 3.4 - 5.0 [facility] Comment on above: Performed By: #### L DH #### [facility] [address] [place] [address] Anion gap [Moles/Vol] 18 mmol/L Normal 10 - 20 [facility] Comment on above: Performed By: #### L DH #### [facility] [address] [place] [address] Calcium [Mass/Vol] 8.2 mg/dL Low 8.6 - 10.6 [facility] Comment on above: Performed By: #### L DH #### [facility] [address] [place] [address] Chloride [Moles/Vol] 102 mmol/L Normal 98 - 107 [facility] Comment on above: Performed By: #### L DH #### [facility] [address] [place] [address] Creatinine [Mass/Vol] 0.95 mg/dL Normal 0.50 - 1.30 [facility] Comment on above: Performed By: #### L DH #### [facility] [address] [place] [address] GFR- AM. >60 Normal >60 [facility] Comment on above: Result Comment: CALC ULATIONS OF ESTIMATED GFR ARE PERFORMED USING THE MDRD STUDY EQUATION FOR THE IDMS-TRACEABLE CREATININE METHODS. CLIN CHEM 2007;53:766-72 Performed By: #### L DH #### [facility] [address] [place] [address] GFR-NON AM. >60 Normal >60 [facility] Comment on above: Performed By: #### L DH #### [facility] [address] [place] [address] Glucose [Mass/Vol] 130 mg/dL High 74 - 99 [facility] Comment on above: Performed By: #### L DH #### [facility] [address] [place] [address] HCO3 (Bld) [Moles/Vol] 23 mmol/L Normal 21 - 32 [facility] Comment on above: Performed By: #### L DH #### [facility] [address] [place] [address] Phosphate [Mass/Vol] 4.7 mg/dL Normal 2.5 - 4.9 [facility] Comment on above: Result Comment: The performance characteristics of phosphorus testing in heparinized plasma have been validated by the individual laboratory site where testing is performed. Testing on heparinized plasma is not approved by the FDA; however, such approval is not necessary. Performed By: #### L DH #### [facility] [address] [place] [address] Potassium [Moles/Vol] 5.1 mmol/L Normal 3.5 - 5.3 [facility] Comment on above: Performed By: #### L DH #### [facility] [address] [place] [address] Sodium [Moles/Vol] 138 mmol/L Normal 136 - 145 [facility] Comment on above: Performed By: #### L DH #### [facility] [address] [place] [address] Urea nitrogen [Mass/Vol] 14 mg/dL Normal 6 - 23 [facility] Comment on above: Performed By: #### L DH #### [facility] [address] [place] [address] REQUEST-LEUKOREDUCED RED JAIDA LSon 01-22-2020 REQUEST-LEUKOREDUCED RED CELLS ORDER RECD Normal [facility] Comment on above: Performed By: #### C BCDF #### [facility] [address] [place] [address] REQUEST-LEUKOREDUCED RED CELLS ORDER RECD Normal [facility] Comment on above: Performed By: #### C BCDF #### [facility] [address] [place] [address] REQUEST-LEUKOREDUCED RED CELLS ORDER RECD Normal [facility] Comment on above: Performed By: #### C BCDF #### [facility] [address] [place] [address] ULTRASOUND GUIDANCE FOR VASC ULAR ACCESSon 01-22-2020 ULTRASOUND GUIDANCE FOR VASCULAR ACCESS Patient Name: MARCE CHRISTIANO STUDY: VASCULAR EMBO/OCCL, INCLUDE S; ADD //A-P; [...] of the abdomen and pelvis ACCESSION NUMBER(S): [id number]; [id number]; [id number]; [id number]; [id number]; [id number]; [id number]; [id number]; [id number]; [id number]; [id number] ORDERING CLINICIAN: FARZAD KOENIG OPERATORS: Dr. Sg [...] The needle was exchanged for a 5 Guyanese transitional catheter. The inner dilator and the 0.018 wire were removed and a 0.035 wire was advanced into the abdominal aorta. The transitional catheter was exchanged for a 5 Guyanese vascular sheath, which was attached to a heparinized pressure bag of normal saline. Right common femoral arteriogram was performed which demonstrates adequate arterial access for use of closure device, cephalad to the bifurcation and caudad to the inferior epigastric artery origin. A 5 Guyanese Cobra C2 catheter was advanced over the [...] extravasation. Electronically signed by: FREDDIE HURT MD [facility] VASCULAR EMBO/OCCL, INCLUDE Son 01-22-2020 VASCULAR EMBO/OCCL, [...] of the abdomen and pelvis ACCESSION NUMBER(S): [id number]; [id number]; [id number]; [id number]; [id number]; [id number]; [id number]; [id number]; [id number]; [id number]; [id number] ORDERING CLINICIAN: FARZAD KOENIG OPERATORS: Dr. Sg [...] The needle was exchanged for a 5 Guyanese transitional catheter. The inner dilator and the 0.018 wire were removed and a 0.035 wire was advanced into the abdominal aorta. The transitional catheter was exchanged for a 5 Guyanese vascular sheath, which was attached to a heparinized pressure bag of normal saline. Right common femoral arteriogram was performed which demonstrates adequate arterial access for use of closure device, cephalad to the bifurcation and caudad to the inferior epigastric artery origin. A 5 Guyanese Cobra C2 catheter was advanced over the [...] extravasation. Electronically signed by: FREDDIE HURT MD [facility] VISCERALon 01-22-2020 VISCERAL Patient Name: CHRISTIANO ZHENG [...] of the abdomen and pelvis ACCESSION NUMBER(S): [id number]; [id number]; [id number]; [id number]; [id number]; [id number]; [id number]; [id number]; [id number]; [id number]; [id number] ORDERING CLINICIAN: FARZAD KOENIG OPERATORS: Dr. Sg [...] The needle was exchanged for a 5 Guyanese transitional catheter. The inner dilator and the 0.018 wire were removed and a 0.035 wire was advanced into the abdominal aorta. The transitional catheter was exchanged for a 5 Guyanese vascular sheath, which was attached to a heparinized pressure bag of normal saline. Right common femoral arteriogram was performed which demonstrates adequate arterial access for use of closure device, cephalad to the bifurcation and caudad to the inferior epigastric artery origin. A 5 Guyanese Cobra C2 catheter was advanced over the [...] Electronically signed by: FREDDIE HURT MD Normal [facility] ABO/RH GROUP TESTon 01-21-20 20 ABO TYPE O Normal [facility] Comment on above: Performed By: #### R ETIC #### [facility] [address] [place] [address] Performed By: #### T +S ####[id number] [id number] RH TYPE Positive Normal [facility] Comment on above: Performed By: #### R ETIC #### [facility] [address] [place] [id number] Performed By: #### T +S ####[id number] [id number] Admission Risk Screen - Adul ton 01-21-2020 [...] falls risk with risk for associated injury [place] Safety InterventionsWDL *orient to call system *instruct [...] instruction; written material Cultural Considerationsnone Developmental Considerationsnone Muslim Considerationsnone Learning Assessment (Other Learner): Other learner [...] Pain Level4 = Moderate Expression of Pain (nonverbal)verbalizatio n Chronic Painno (1) Spiritual Screen: Are there any cultural, spiritual, temple practices/values/needs that are important for us to knowno CAGE: Is this an injured patient at a [place] Center [place] [place]/[place]/[facility]/[place]): no Vaccinations: Vaccination - Influenza Vaccination Screen: Is it flu season (between and September 28)No Vaccination - Pneumonia Vaccination Screen: Patient has received a previous pneumonia vaccine:no/unknown... Immunocompetent persons with underlying chronic conditions or reside in manager long term care care facilitiesnone of these conditions Persons with [...] Injury Present on Admissionno Electronic Signatures: Kathy Chavez) (Signed 21-Jan-2020 19:09) Authored: Admission Risk Screens, Vaccinations, Rigoberto, Pressure Injury Last Updated: 21-Jan-2020 19:09 by Kathy Chavez (RN) References: 1. Data Referenced From Patient Profile - Preop v2 21-Jan-2020 10:09 Normal [facility] CBCon 01-21-2020 Erythrocyte distribution width (RBC) [Ratio] 18.7 % High 11.5 - 14.5 [facility] Comment on above: Performed By: #### R ETIC #### [facility] [address] [place] [address] Hematocrit (Bld) [Volume fraction] 34.3 % Low 41.0 - 52.0 [facility] Comment on above: Performed By: #### R ETIC #### [facility] [address] [place] [address] Hemoglobin (Bld) [Mass/Vol] 12.6 g/dL Low 13.5 - 17.5 [facility] Comment on above: Performed By: #### R ETIC #### [facility] [address] [place] [address] MCHC (RBC) [Mass/Vol] 36.7 g/dL High 32.0 - 36.0 [facility] Comment on above: Performed By: #### R ETIC #### [facility] [address] [place] [address] MCV (RBC) [Entitic vol] 80 fL Normal 80 - 100 [facility] Comment on above: Performed By: #### R ETIC #### [facility] [address] [place] [address] Nucleated RBC/100 WBC (Bld) [Ratio] 0.1 /100 WBC Normal 0.0-0.0 [facility] Comment on above: Performed By: #### R ETIC #### [facility] [address] [place] [address] Platelets (Bld) [#/Vol] 197 10*3/uL Normal 150 - 450 [facility] Comment on above: Performed By: #### R ETIC #### [facility] [address] [place] [address] RBC (Bld) [#/Vol] 4.28 x10E12/L Low 4.50 - 5.90 [facility] Comment on above: Performed By: #### R ETIC #### [facility] [address] [place] [address] WBC (Bld) [#/Vol] 29.9 10*3/uL High 4.4 - 11.3 [facility] Comment on above: Performed By: #### R ETIC #### [facility] [address] [place] [address] History and Physical - Surgi farhana Update [...] they contract COVID-19 what the risks are. Signatures/Attestation/ Certification: Note Completion: I am a: Resident/Fellow Attending [...] the note. I personally evaluated the patient [id number] Attending Provider Inpatient Certification StatementI certify this patients need for inpatient care based on the above documentation including; the order to admit as inpatient, the anticipated length of stay, diagnosis, problem list and plan of care, and discharge plan. Electronic Signatures: Annette Kaufman (Resident)) (Signed 21-Jan-2020 12:41) Authored: History & Physical Reviewed, Consent, Signatures/Attestation/ Certification Eagle Mcmanus) (Signed 21-Jan-2020 12:47) Authored: Signatures/Attestation/ Certification Co-Signer: History & Physical Reviewed, Consent, Signatures/Attestation/ Certification Last Updated: 21-Jan-2020 12:47 by Eagle Mcmanus) [facility]ative [facility] [place] [place] [address] Patient Name: HODAN ZHENG : 1995 Date of Service: 01/21/2020 Patient Location: [facility] [id number] Patient Type: O Surgeon: Eagle Mcmanus MD Report Type: Operative Reports PREOPERATIVE DIAGNOSIS: Hereditary spherocytosis. POSTOPERATIVE DIAGNOSIS: Hereditary spherocytosis. OPERATION/PROCEDURE: Laparoscopic splenectomy. SURGEON: Eagle Mcmanus MD MANAGING EDITOR(S): 1. Dr. Leonela Kaiser 2. Annette Kaufman [...] TT: 01/22/2020 03:21 AM EST DICTATION NUMBER: [id number] GUMARO JOB NUMBER: [id number] CC: ADDIE Cobos MD Electronic Signatures: Eagle Mcmanus () (Signed on 22-Jan-2020 23:07) Authored Unsigned, Draft (SYS GENERATED) (Entered on 22-Jan-2020 03:21) Entered Last Updated: 22-Jan-2020 23:07 by Eagle Mcmanus) [facility] Patient Profile - Preop v2on 01-21-2020 Patient Profile - Preop v2 Profile: Initial Info: How to be AddressedAlex Spoken Language PreferredEnglish Are you currently using the Personal Vocab Health Record or [employer] Stated Reason for Admissionsplenectomy Primary Contact Name and NumberCindy - addy - [phone] Patient Belongingslocker Medications Brought to Hospitalno General Health: Weight in kg74.6 kilogram(s) Weight in fso095.4 pound(s) Weight Methodactual (measured) Scale Typestanding Height in feet5 feet Height in ezwkns03 inch(es) Height in cm177.8 centimeter(s) Height Methodstated BMI (kg/m2)23.598 square meter Patient or Family Member Reaction to Anesthesiano previous reaction Blood Avoidance/Restrictionsn one Previous Transfusion Reactionno Health Mgmt: Symptoms/Conditions Managed [...] instruction; written material Cultural Considerationsnone Developmental Considerationsnone Muslim Considerationsnone Other learner availableno Falls RiskPatient location auto qualifies him/her for HIGH RISK. Are there any cultural, spiritual, temple practices/values/needs that are important for us to knowno Pain Scalenumerical 0-10 Pain Scale Educationteaching provided Current Pain Level0 = None Acceptable Pain Level4 = Moderate Chronic Painno Information Review: Allergies, Home Meds and Significant Events have been Reviewed and Verified with Patient/Familyyes Allergy, Intolerance, Adverse Event: Allergies: morphine: Drug, Facial Swelling, Active Electronic Signatures: Claudia Tapia (RN) (Signed 21-Jan-2020 10:24) Authored: Profile, Additional Information Last Updated: 21-Jan-2020 10:24 by Claudia Tapia (CALOS) [facility] Preop Checkliston 01-21-2020 Preop Checklist Preop Checklist: Preop Checklist: Arrival [id number] Arrival Time10:05 Procedure Typesplenectomy Temperature C37.6 degrees C Temperature F99.6 degrees F Heart Rate67 beats per minute Respiratory Rate16 breath per minute Blood Pressure Eadqficx525 mm/Hg Blood Pressure Vyliuqgth23 mm/Hg NPO [id number] 00:01 ID Band Onyes Allergy Bandyes Consent Signedyes H&P Completeyes Anesthesia Assessment Completedpending EKG Performedsee results tab Chest X-Ray Performedsee results tab HCG Urine TestN/A Chlorhexadine Bath Givennot applicable Nasal Antiseptic Appliednot applicable Hair Washednot applicable Soap and water bath with hair shampoo the night before surgerynot applicable Hat placed on prior to transportnot applicable SCD's Appliedsent to [...] 21-Jan-2020 10:28 by Claudia Tapia (RN) Normal [facility] Surgical Pathology Depar tmenton 01-21-2020 [facility] Surgical Pathology Department Name CHRISTIANO ZHENG Pathologist: ARTURO NORRIS MD Date of Procedure: 01/21/2020 Date Received: 01/21/2020 Date Reported 01/27/2020 Submitting Physician: EAGLE MCMANUS M.D. Location: [facility] Other External # FINAL DIAGNOSIS A. SPLEEN, SPLENECTOMY: [...] M.D. Electronically Signed Out By ARTURO NORRIS MD/Monster By the signature on this report, the individual or group listed as making the Final Interpretation/Diagnosi s certifies that they have reviewed this case. [...] and soft. Malpighian corpuscles are not prominent. Bibliographic Services Specialist sections are submitted in RPMI for flow hold. Bibliographic Services Specialist sections are submitted in 3 cassettes. IAD iad/01/22/2020 Normal [facility] Comment on above: Performed By: #### U HCS ####[facility] Surgical Pathology [id number] [facility] CORONAVIRUS 2019, SCREEN ASY MPTOMATICon 01-20-2020 CORONAVIRUS 2019,PCR NOT DETECTED Normal Not Detected [facility] Comment on above: Result Comment: . This [...] this test method. Fact sheet for providers: https://www.fda.gov/media/584616/download Fact sheet for patients: https://www.fda.gov/media/766016/download This test has received FDA Emergency Use Authorization [EUA] and has been verified by [facility] ([facility]). This test is only authorized for the duration of time that circumstances exist to justify the authorization of the emergency use of in vitro diagnostic tests for the detection of SARS-CoV-2 virus and/or diagnosis of COVID-19 infection under section 564(b)(1) of the Act, 21 U.S.C. 360bbb-3(b)(1), unless the authorization is terminated or revoked sooner. [facility] is certified under CLIA-88 as qualified to perform high complexity testing. Testing is performed in the [facility] laboratories [place] [address] [place] [address]. Performed By: #### C OVSC ####[id number] [place] [address] CORONAVIRUS 2019, SCREEN ASY MPTOMATICon 01-19-2020 Lab Specimen Source Nasal, Nasopharyngeal Normal [facility] Comment on above: Performed By: #### C OVSC ####[id number] [place] [address] EOSIN 5' MALEIMIDEon 020 Eosinophils (Bld) [#/Vol] Positive Normal [facility] Comment on above: Performed By: #### E O5MA ####[id number] [place] [address] PATIENT MEAN FLUORESCENCE 129 MFI Low 155 - 175 [facility] Comment on above: Performed By: #### E O5MA ####[id number] [place] [id number] REVIEWED BY VINNIE Rivas [facility] Comment on above: Result Comment: Eval uation [...] characteristics determined by the Department of Pathology, [facility], and has not been cleared or approved by the U.S. Food and Drug Administration. The laboratory is regulated under CLIA as qualified to perform high complexity testing. This test is used for clinical purposes. It shouldn't be regarded as investigational or for research. Performed By: #### E O5MA ####[id number] [facility] [place] [id number] BILIRUBIN,DIRECTon 0 Bilirubin.direct [Mass/Vol] 0.5 mg/dL High 0.0 - 0.3 [facility] Comment on above: Performed By: #### D BILI #### [facility] [address] [place] [address] CBC AND DIFFERENTIALon 12-30 % AUTOMATED IMMATURE GRAN 0.8 % Normal 0.0 - 0.9 [facility] Comment on above: Result Comment: Sisi ture Granulocyte Count (IG) includes promyelocytes, myelocytes and metamyelocytes but does not include bands. Percent differential counts (%) should be interpreted in the context of the absolute cell counts (cells/L). Performed By: #### C BCDF #### [facility] [address] [place] [address] Basophils (Bld) [#/Vol] 0.05 10*3/uL Normal 0.00 - 0.10 [facility] Comment on above: Performed By: #### C BCDF #### [facility] [address] [place] [address] Basophils/100 WBC (Bld) 0.6 % Normal 0.0 - 2.0 [facility] Comment on above: Performed By: #### C BCDF #### [facility] [address] [place] [address] Eosinophils (Bld) [#/Vol] 0.13 10*3/uL Normal 0.00 - 0.70 [facility] Comment on above: Performed By: #### C BCDF #### [facility] [address] [place] [address] Eosinophils/100 WBC (Bld) 1.6 % Normal 0.0 - 6.0 [facility] Comment on above: Performed By: #### C BCDF #### [facility] [address] [place] [address] Erythrocyte distribution width (RBC) [Ratio] 19.1 % High 11.5 - 14.5 [facility] Comment on above: Performed By: #### C BCDF #### [facility] [address] [place] [address] Hematocrit (Bld) [Volume fraction] 35.9 % Low 41.0 - 52.0 [facility] Comment on above: Performed By: #### C BCDF #### [facility] [address] [place] [address] Hemoglobin (Bld) [Mass/Vol] 12.6 g/dL Low 13.5 - 17.5 [facility] Comment on above: Performed By: #### C BCDF #### [facility] [address] [place] [address] Lymphocytes (Bld) [#/Vol] 3.17 10*3/uL Normal 1.20 - 4.80 [facility] Comment on above: Performed By: #### C BCDF #### [facility] [address] [place] [address] Lymphocytes/100 WBC (Bld) 40.1 % Normal 13.0 - 44.0 [facility] Comment on above: Performed By: #### C BCDF #### [facility] [address] [place] [address] MCHC (RBC) [Mass/Vol] 35.1 g/dL Normal 32.0 - 36.0 [facility] Comment on above: Performed By: #### C BCDF #### [facility] [address] [place] [address] MCV (RBC) [Entitic vol] 82 fL Normal 80 - 100 [facility] Comment on above: Performed By: #### C BCDF #### [facility] [address] [place] [address] Monocytes (Bld) [#/Vol] 0.39 10*3/uL Normal 0.10 - 1.00 [facility] Comment on above: Performed By: #### C BCDF #### [facility] [address] [place] [address] Monocytes/100 WBC (Bld) 4.9 % Normal 2.0 - 10.0 [facility] Comment on above: Performed By: #### C BCDF #### [facility] [address] [place] [address] Neutrophils (Bld) [#/Vol] 4.10 10*3/uL Normal 1.20 - 7.70 [facility] Comment on above: Performed By: #### C BCDF #### [facility] [address] [place] [address] Neutrophils/100 WBC (Bld) 52.0 % Normal 40.0 - 80.0 [facility] Comment on above: Performed By: #### C BCDF #### [facility] [address] [place] [address] Nucleated RBC/100 WBC (Bld) [Ratio] 0.3 /100 WBC Normal 0.0-0.0 [facility] Comment on above: Performed By: #### C BCDF #### [facility] [address] [place] [address] Platelets (Bld) [#/Vol] 166 10*3/uL Normal 150 - 450 [facility] Comment on above: Performed By: #### C BCDF #### [facility] [address] [facility] [place] [address] RBC (Bld) [#/Vol] 4.37 x10E12/L Low 4.50 - 5.90 [facility] Comment on above: Performed By: #### C BCDF #### [facility] [address] [place] [address] WBC (Bld) [#/Vol] 7.9 10*3/uL Normal 4.4 - 11.3 [facility] Comment on above: Performed By: #### C BCDF #### [facility] [address] [place] [address] COMPREHENSIVE PANELon 2019 Albumin [Mass/Vol] 5.5 g/dL High 3.4 - 5.0 [facility] Comment on above: Performed By: #### C MP #### [facility] [address] [place] [address] ALP [Catalytic activity/Vol] 50 U/L Normal 33 - 120 [facility] Comment on above: Performed By: #### C MP #### [facility] [address] [place] [address] ALT [Catalytic activity/Vol] 19 U/L Normal 10 - 52 [facility] Comment on above: Result Comment: Haily ents treated with Sulfasalazine may generate falsely decreased results for ALT. Performed By: #### C MP #### [facility] [address] [place] [address] Anion gap [Moles/Vol] 11 mmol/L Normal 10 - 20 [facility] Comment on above: Performed By: #### C MP #### [facility] [address] [place] [address] AST [Catalytic activity/Vol] 17 U/L Normal 9 - 39 [facility] Comment on above: Performed By: #### C MP #### [facility] [address] [place] [address] Bilirubin [Mass/Vol] 2.5 mg/dL High 0.0 - 1.2 [facility] Comment on above: Performed By: #### C MP #### [facility] [address] [place] [address] Calcium [Mass/Vol] 10.2 mg/dL Normal 8.6 - 10.3 [facility] Comment on above: Performed By: #### C MP #### [facility] [address] [place] [address] Chloride [Moles/Vol] 105 mmol/L Normal 98 - 107 [facility] Comment on above: Performed By: #### C MP #### [facility] [address] [place] [address] Creatinine [Mass/Vol] 0.99 mg/dL Normal 0.50 - 1.30 [facility] Comment on above: Performed By: #### C MP #### [facility] [address] [place] [address] GFR- AM. >60 Normal >60 [facility] Comment on above: Result Comment: CALC ULATIONS OF ESTIMATED GFR ARE PERFORMED USING THE MDRD STUDY EQUATION FOR THE IDMS-TRACEABLE CREATININE METHODS. CLIN CHEM 2007;53:766-72 Performed By: #### C MP #### [facility] [address] [place] [address] GFR-NON AM. >60 Normal >60 [facility] Comment on above: Performed By: #### C MP #### [facility] [address] [place] [address] Glucose [Mass/Vol] 97 mg/dL Normal 74 - 99 [facility] Comment on above: Performed By: #### C MP #### [facility] [address] [place] [address] HCO3 (Bld) [Moles/Vol] 29 mmol/L Normal 21 - 32 [facility] Comment on above: Performed By: #### C MP #### [facility] [address] [place] [address] Potassium [Moles/Vol] 4.2 mmol/L Normal 3.5 - 5.3 [facility] Comment on above: Performed By: #### C MP #### [facility] [address] [place] [address] Protein [Mass/Vol] 7.4 g/dL Normal 6.4 - 8.2 [facility] Comment on above: Performed By: #### C MP #### [facility] [address] [place] [address] Sodium [Moles/Vol] 141 mmol/L Normal 136 - 145 [facility] Comment on above: Performed By: #### C MP #### [facility] [address] [place] [address] Urea nitrogen [Mass/Vol] 11 mg/dL Normal 6 - 23 [facility] Comment on above: Performed By: #### C MP #### [facility] [address] [place] [address] Clinic Note - Heme Onc-Benig n Heme [...] Review of Systems: System ReviewAll Systems: Negative GastrointestinalComment s noted fullnes in RUQ Allergies and Intolerances: [...] [Drawn 31-Dec-2019 11:21:00], Comprehensive Metabolic Panel [Drawn 31-Dec-2019 11:21:00], Complete Blood Count + Differential [Drawn 31-Dec-2019 11:21:00], Lactate Dehydrogenase, Serum [Drawn 31-Dec-2019 11:21:00], Ferritin, Serum [Drawn 31-Dec-2019 11:21:00], Uric Acid, Serum [Drawn 31-Dec-2019 11:21:00], Sedimentation Rate, Erythrocyte [Drawn 31-Dec-2019:21:00], Bilirubin, Serum Direct - Conjugated [Drawn 31-Dec-2019 11:21:00], Haptoglobin, Serum [Drawn 31-Dec-2019 11:21:00]. Assessment and Plan: Assessment and Plan: Assessment: This patient has a normochromic, normocytic mild anemia with 8.7% retic, elevated total and indirect (2.0) bilirubin, low haptoglobin (<30) with a normal LDH. His spleen is palpable. Could be HS - I sent for definitive flow cytometry studies today. At [facility] Labs, an abnormal band 3 [...] predominantly spherocytes on peripheral smear. Electronic Signatures: eNw Cobos) (Signed 31-Dec-2019 13:47) Authored: Patient Visit Information, History of Present Illness, Review of Systems, Allergies and Outpatient Medication Profile, Social History, Physical Exam, Results, Assessment and Plan, To Send Document via Auto Fax Last Updated: 31-Dec-2019 16:52 by New Cobos) [facility] Clinic Note - Intakeon 12-30 Clinic Note [...] air Pain Screening: Patient States Painno (0) Coat Padder for intimate exam offered to patient: Patient [...] Do you feel you need assistanceno Spiritual/Procedural: Spiritual/cultural/reli gious practices important for us to knowno Adv [...] 10:17) Authored: Patient Visit Information, Vital Signs, Coat Padder, Allergies, Outpatient Medication Profile, Adult Admission Risk Screen Last Updated: 31-Dec-2019 10:17 by Stefania Stout) Normal [facility] EBV PANELon 12-31-2019 EBV EA-D IGG ANTIBODY Positive Abnormal NEGATIVE [facility] Comment on above: Performed By: #### E BVP1 ####[id number] [id number] EBV INTERPRETATION SEE BELOW Normal [facility] Comment on above: Result Comment: . EB V INTERPRETATION CHART . VCA-IGG VCA-IGM NA-IGG EA-IGG . PRIMARY ACUTE +/- +/- - +/- LATE ACUTE + +/- +/- +/- RECOVERING + - - + PREVIOUS INFECTION + - +/- - Performed By: #### E BVP1 ####[id number] [id number] EBV NA-1 IGG ANTIBODY Negative Normal NEGATIVE [facility] Comment on above: Performed By: #### E BVP1 ####[id number] [id number] VCA IGG ANTIBODY Positive Abnormal NEGATIVE [facility] Comment on above: Performed By: #### E BVP1 ####[id number] [id number] VCA IGM ANTIBODY Positive Abnormal NEGATIVE [facility] Comment on above: Performed By: #### E BVP1 ####[id number] [place] [address] EOSIN 5' MALEIMIDEon 020 INTERPRETATION SEE BELOW Normal [facility] Comment on above: Performed By: #### E O5MA ####[id number] [place] [address] FERRITINon 12-31-2019 Ferritin [Mass/Vol] 344 ug/L High 20 - 300 [facility] Comment on above: Performed By: #### F ERRI ####[id number] [place] [address] FLOW CYTOMETRY TESTon 2019 FLOW TEST ORDERED EOSIN 5' MALEIMIDE Normal [facility] Comment on above: Performed By: #### F CTST ####[id number] [place] [address] SOURCE WHOLE BLD-EDTA Normal [facility] Comment on above: Performed By: #### F CTST ####[id number] [place] [address] HAPTOGLOBINon 12-31-2019 HAPTOGLOBIN <30 Normal 30 - 200 [facility] Comment on above: Performed By: #### H APTO #### [facility] [address] [place], [place] LDHon 12-31-2019 LDH 165 U/L Normal 84 - 246 [facility] Comment on above: Performed By: #### L DH #### [facility] [address] [place] [place] RETICULOCYTESon 12-31-2019 IMMATURE RETIC FRACTION 10.8 % Normal 0.0 - 16.0 [facility] Comment on above: Performed By: #### R ETIC #### [facility] [address] [place] [place] RETIC # 0.379 x10E12/L High 0.022 - 0.118 [facility] Comment on above: Performed By: #### R ETIC #### [facility] [address] [place] [address] RETIC % 8.7 % High 0.5 - 2.0 [facility] Comment on above: Performed By: #### R ETIC #### [facility] [address] [place] [address] RETIC-HB 35 pg Normal 28 - 38 [facility] Comment on above: Performed By: #### R ETIC #### [facility] [address] [place] [address] SEDIMENTATION RATE, ERYTHROC YTEon 12-31-2019 SEDIMENTATION RATE, ERYTHROCYTE <1 Normal 0 - 15 [facility] Comment on above: Performed By: #### E SRWS #### [facility] [address] [place] [address] URIC ACIDon 12-31-2019 Urate [Mass/Vol] 5.8 mg/dL Normal 4.0 - 7.5 [facility] Comment on above: Result Comment: Dacia puncture immediately after or during the administration of Metamizole may lead to falsely low results. Testing should be performed immediately prior to Metamizole dosing. Performed By: #### U MELISA #### [facility] [address] [place] [address] Oncology Nurse Navigator-infrancy tial diagnosison 12-30-2019 Oncology Nurse Navigator-initial diagnosis Summary/Preview: Nurse Navigator Note Care Navigation Interaction with patient Visit Type: initial evaluation Location of Visit: telephone Is this your first navigation interaction with this patient yes Continuum of Care: initial diagnosis Diagnosis: benign heme Malignant/non-malignant : non-malignant Records: patient/portal Assessment Patient Needs and [...] 14:56 by Heidi Velasco (STAFF N) Normal [facility] PROGRESSon 12-02-2019 PROGRESS HNO ID: [id number] Author: Hollie Arriaza Service: ? Author Type: [...] GENETIC TESTING: None SOCIAL HISTORY: Lives in [place], [place] with his . FAMILY HISTORY: - Patient's ethnicity: Maternal Citizen Of [place]; Paternal Citizen [place]. - Parental consanguinity: No A three generation [...] replacements, smoking. Paternal grandfather: at 66 from [place]. History of smoking and heart disease. The [...] I offered the Genetic Health Screen through [employer], which consists of 147 genes. These genes [...] per Dr. Whatley's recommendations. Hollie Arriaza, MS, [facility] Licensed Genetic Counselor EPIC CC: Dr. Chacorta Alex, commercial administrator CC: Christiano Zheng [address] [facility] [place] [address] Addie Sonya Meagan, DO [address] [place] [address] Normal [facility] Vital Signs Date Time Vital Sign Value Performing Clinician Facility 02-11-2024 09:13-0400 Body height 177.8 cm [facility] 02-11-2024 09:13-0400 Body mass index (BMI) [Ratio] 25.9 kg/m2 [facility] 02-11-2024 09:13-0400 Body temperature 97.9 [degF] [facility] 02-11-2024 09:13-0400 Body weight 82.1 kg [facility] 02-11-2024 09:13-0400 Diastolic blood pressure 80 mm[Hg] [facility] 02-11-2024 09:13-0400 Heart rate 66 /min [facility] 02-11-2024 09:13-0400 Respiratory rate 18 /min [facility] 02-11-2024 09:13-0400 SaO2% (BldA) [Mass fraction] 98 % [facility] 02-11-2024 09:13-0400 Systolic blood pressure 125 mm[Hg] [facility] 12-11-2023 14:51-0400 Body height 177.8 cm [facility] 12-11-2023 14:51-0400 Body mass index (BMI) [Ratio] 26.1 kg/m2 [facility] 12-11-2023 14:51-0400 Body temperature 98.7 [degF] [facility] 12-11-2023 14:51-0400 Body weight 82.66 kg [facility] 12-11-2023 14:51-0400 Diastolic blood pressure 93 mm[Hg] [facility] 12-11-2023 14:51-0400 Heart rate 91 /min [facility] 12-11-2023 14:51-0400 Respiratory rate 18 /min [facility] 12-11-2023 14:51-0400 SaO2% (BldA) [Mass fraction] 97 % [facility] 12-11-2023 14:51-0400 Systolic blood pressure 146 mm[Hg] [facility] 05-04-2023 12:15-0500 Body height 177.8 cm Zoila Webb Other [employer] [facility] [employer] Other 05-04-2023 12:15-0500 Body mass index (BMI) [Ratio] 23.53 kg/m2 Zoila Webb Other [employer] Other 05-04-2023 12:15-0500 Body temperature 98.9 [degF] Zoila Webb Other [employer] Other 05-04-2023 12:15-0500 Body weight 74.39 kg Zoila Webb Other [employer] Other 05-04-2023 12:15-0500 Diastolic blood pressure 76 mm[Hg] Zoila Webb Other [employer] Other 05-04-2023 12:15-0500 Respiratory rate 18 /min Zoila Webb Other [employer] Other 05-04-2023 12:15-0500 SaO2% (BldA) [Mass fraction] 80 % Zoila Webb Other [employer] Other 05-04-2023 12:15-0500 Systolic blood pressure 127 mm[Hg] Zoila Webb Other [facility] [employer] Other 03-28-2023 10:43-0400 Blood Pressure Location MABLE STEPHENSON [facility] 03-28-2023 10:43-0400 Body temperature 98.6 [degF] MABLE STEPHENSON [facility] 03-28-2023 10:43-0400 Diastolic blood pressure 78 mm[Hg] MABLE STEPHENSON [facility] 03-28-2023 10:43-0400 Heart rate 77 /min [place] [facility] 03-28-2023 10:43-0400 SaO2% (BldA) [Mass fraction] 98 % [facility] 03-28-2023 10:43-0400 Systolic blood pressure 121 mm[Hg] [facility] 07-04-2022 15:31-0500 Diastolic blood pressure 79 mm[Hg] Leah Myrick [facility] 07-04-2022 15:31-0500 Heart rate 95 /min Leah Myrick [facility] 07-04-2022 15:31-0500 Mean blood pressure 96 mm[Hg] Leah Myrick [facility] 07-04-2022 15:31-0500 Systolic blood pressure 130 mm[Hg] Leah Myrick [facility] 06-13-2022 14:57-0500 Heart rate 74 /min Sen Burgess [facility] 06-13-2022 14:57-0500 SaO2% (BldA) [Mass fraction] 99 % Sen Jenifer [facility] 06-13-2022 14:57-0500 Diastolic blood pressure 79 mm[Hg] Sen Jenifer [facility] 06-13-2022 14:57-0500 Mean blood pressure 93 mm[Hg] Sen Jenifer [facility] 06-13-2022 14:57-0500 Systolic blood pressure 122 mm[Hg] Sen Jenifer [facility] 06-13-2022 14:57-0500 Respiratory rate 14 /min Sen Jenifer [facility] 06-13-2022 14:50-0500 Diastolic blood pressure 88 mm[Hg] Sen Jenifer [facility] 06-13-2022 14:50-0500 Heart rate 71 /min Sen Jenifer [facility] 06-13-2022 14:50-0500 Respiratory rate 14 /min Sen Jenifer [facility] 06-13-2022 14:50-0500 SaO2% (BldA) [Mass fraction] 98 % Sen Jenifer [facility] 06-13-2022 14:50-0500 Systolic blood pressure 147 mm[Hg] Sen Jenifer [facility] 06-13-2022 14:35-0500 Heart rate 81 /min Sen Jenifer [facility] 06-13-2022 14:35-0500 SaO2% (BldA) [Mass fraction] 98 % Sen Jenifer [facility] 06-13-2022 14:35-0500 Respiratory rate 16 /min Sen Jenifer [facility] 06-13-2022 14:33-0500 Diastolic blood pressure 79 mm[Hg] Sen Jenifer [facility] 06-13-2022 14:33-0500 Mean blood pressure 94 mm[Hg] Sen Jenifer [facility] 06-13-2022 14:33-0500 Systolic blood pressure 123 mm[Hg] Sen Jenifer [facility] 06-13-2022 14:33-0500 Body temperature 97.7 [degF] Sen Jenifer [facility] 05-23-2022 14:51-0500 Diastolic blood pressure 78 mm[Hg] Sen Jenifer [facility] 05-23-2022 14:51-0500 Heart rate 96 /min Sen Jenifer [facility] 05-23-2022 14:51-0500 Mean blood pressure 96 mm[Hg] Sen Jenifer [facility] 05-23-2022 14:51-0500 Respiratory rate 16 /min Sen Jenifer [facility] 05-23-2022 14:51-0500 Systolic blood pressure 131 mm[Hg] Sen Jenifer [facility] 05-19-2022 10:04-0500 Diastolic blood pressure 81 mm[Hg] Karan Nazarioe [facility] 05-19-2022 10:04-0500 Heart rate 91 /min Karan العراقي [facility] 05-19-2022 10:04-0500 Respiratory rate 18 /min Karan Nazarioe [facility] 05-19-2022 10:04-0500 SaO2% (BldA) [Mass fraction] 97 % Karan العراقي [facility] 05-19-2022 10:04-0500 Systolic blood pressure 132 mm[Hg] Karan العراقي [facility] 05-14-2022 22:45-0500 Diastolic blood pressure 78 mm[Hg] Jose Brandon [facility] 05-14-2022 22:45-0500 Heart rate 79 /min Jose Brandon [facility] 05-14-2022 22:45-0500 Respiratory rate 18 /min Jose Brandon [facility] 05-14-2022 22:45-0500 SaO2% (BldA) [Mass fraction] 98 % Jose Brandon [facility] 05-14-2022 22:45-0500 Systolic blood pressure 126 mm[Hg] Jose Brandon [facility] 05-14-2022 19:34-0500 Body temperature 99.14 [degF] Jose Brandon [facility] 05-14-2022 19:34-0500 Diastolic blood pressure 84 mm[Hg] Jose Brandon [facility] 05-14-2022 19:34-0500 Heart rate 84 /min Jose Brandon [facility] 05-14-2022 19:34-0500 Respiratory rate 18 /min Jose Brandon [facility] 05-14-2022 19:34-0500 SaO2% (BldA) [Mass fraction] 97 % Jose Brandon [facility] 05-14-2022 19:34-0500 Systolic blood pressure 130 mm[Hg] Jose Brandon [facility] 05-12-2022 11:41-0500 Blood Pressure Location Angela Cogar [facility] 05-12-2022 11:41-0500 Body temperature 98.24 [degF] Angela Cogar [facility] 05-12-2022 11:41-0500 Diastolic blood pressure 74 mm[Hg] Angela Cogar [facility] 05-12-2022 11:41-0500 Heart rate 99 /min Angela Cogar [facility] 05-12-2022 11:41-0500 SaO2% (BldA) [Mass fraction] 97 % Angela Cogar [facility] 05-12-2022 11:41-0500 Systolic blood pressure 110 mm[Hg] Angela Cogar [facility] 05-08-2022 14:16-0500 Diastolic blood pressure 77 mm[Hg] Sen Jenifer [facility] 05-08-2022 14:16-0500 Heart rate 75 /min Sen Jenifer [facility] 05-08-2022 14:16-0500 Mean blood pressure 93 mm[Hg] Sen Jenifer [facility] 05-08-2022 14:16-0500 Respiratory rate 12 /min Sen Jenifer [facility] 05-08-2022 14:16-0500 Systolic blood pressure 126 mm[Hg] Sen Jenifer [facility] 03-28-2022 14:12-0400 Blood Pressure Location Lelia Franklin [facility] 03-28-2022 14:12-0400 Body temperature 98.06 [degF] Lelia Klonk [facility] 03-28-2022 14:12-0400 Diastolic blood pressure 72 mm[Hg] Lelia Klonk [facility] 03-28-2022 14:12-0400 Heart rate 73 /min Lelia Klonk [facility] 03-28-2022 14:12-0400 SaO2% (BldA) [Mass fraction] 97 % Lelia Klonk [facility] 03-28-2022 14:12-0400 Systolic blood pressure 124 mm[Hg] Lelia Klonk [facility] 02-03-2022 10:53-0400 Blood Pressure Location Lelia Klonk [facility] 02-03-2022 10:53-0400 Diastolic blood pressure 78 mm[Hg] Lelia Klonk [facility] 02-03-2022 10:53-0400 Heart rate 86 /min Lelia Klonk [facility] 02-03-2022 10:53-0400 SaO2% (BldA) [Mass fraction] 98 % Lelia Klonk [facility] 02-03-2022 10:53-0400 Systolic blood pressure 120 mm[Hg] Lelia Klonk [facility] 12-23-2021 16:44-0400 Body temperature 97.34 [degF] Lelia Klonk [facility] 12-23-2021 16:44-0400 Diastolic blood pressure 70 mm[Hg] Lelia Klonk [facility] 12-23-2021 16:44-0400 Heart rate 80 /min Lelia Klonk [facility] 12-23-2021 16:44-0400 SaO2% (BldA) [Mass fraction] 96 % Lelia Wilsononk [facility] 12-23-2021 16:44-0400 Systolic blood pressure 110 mm[Hg] Lelia Klonk [facility] 11-04-2021 10:11-0400 Body temperature 97.7 [degF] Cecil Kishore [facility] 11-04-2021 10:11-0400 Diastolic blood pressure 88 mm[Hg] Cecil Novak [facility] 11-04-2021 10:11-0400 Heart rate 64 /min Cecil Kishore [facility] 11-04-2021 10:11-0400 Respiratory rate 16 /min Cecil Kishore [facility] 11-04-2021 10:11-0400 SaO2% (BldA) [Mass fraction] 98 % Cecil Novak [facility] 11-04-2021 10:11-0400 Systolic blood pressure 150 mm[Hg] Cecil Novak [facility] 01-22-2020 [id number] Body temperature 37.0 degrees C [facility] Comment on above: Result Comment: NOTE: PATIENT RESULTS AR E NOT CORRECTED FOR TEMPERATURE. Performed By: #### L #### [facility] [address] [place] [address] Encounters Encounter Date Encounter Type Care Provider Facility Start: 02-11-2024 End: 02-11-2024 ambulatory [facility] Work Phone: Start: 02-11-2024 End: 02-11-2024 Patient encounter procedure [facility] Physician [facility] Work Phone: Start: 12-11-2023 End: 12-11-2023 [facility] Work Phone: Start: 12-11-2023 End: 12-11-2023 Patient encounter procedure [facility] Physician [facility] Work Phone: Start: 07-19-2023 End: 07-20-2023 Transcribe Orders Rosario Crawford Joseline Work Phone: [facility] Comment on above: Arthritis Start: 07-16-2023 End: 07-17-2023 Transcribe Orders Rosario Crawford Joseline [facility] Comment on above: Dyspnea, unspecified type Start: 05-04-2023 End: 05-04-2023 ambulatory Zoila Webb Other [employer] Other Start: 05-04-2023 Office outpatient ne w 30 minutes Zoila Webb [facility] Start: 03-28-2023 End: 03-29-2023 ambulatory [facility] Facility[facility] Start: 03-28-2023 End: 03-29-2023 ambulatory [facility] Facility:[facility] Start: 03-28-2023 End: 03-28-2023 Patient encounter procedure [facility] Start: 08-04-2022 End: 08-05-2022 ambulatory PA-C Leah Myrick Facility[facility] Start: 07-28-2022 End: 07-29-2022 ambulatory Leahyoan Myrick Facility:[facility] Start: 07-04-2022 End: 07-05-2022 ambulatory PA-C Leah Myrick Facility:[facility] Start: 07-04-2022 End: 07-04-2022 Pain Management Leah Myrick [facility] Start: 06-13-2022 End: 06-14-2022 ambulatory MD Sen Burgess Facility:[facility] Start: 06-13-2022 End: 06-13-2022 Pain Management Sen Burgess [facility] Start: 06-06-2022 End: 06-06-2022 Emergency department patient visit Leah Grover Facility[facility] Start: 05-23-2022 End: 05-24-2022 ambulatory LELIA FRANKLIN Facility:[facility] Start: 05-23-2022 ambulatory LELIA FRANKLIN Facility :[facility] Start: 05-23-2022 End: 05-23-2022 Pain Management Sen Burgess [facility] Start: 05-19-2022 End: 05-20-2022 ambulatory Sen Burgess Facility[facility] Start: 05-19-2022 End: 05-19-2022 Patient encounter procedure Sen Burgess [facility] Start: 05-19-2022 End: 05-19-2022 Emergency department patient visit Karan Nazarioe Facility[facility] Start: 05-19-2022 End: 05-19-2022 Emergency department patient visit Karan Nazarioe [facility] Start: 05-14-2022 End: 05-15-2022 Emergency department patient visit Jose Taylor Facility[facility] Start: 05-14-2022 End: 05-14-2022 Emergency department patient visit Jose Taylor [facility] Start: 05-12-2022 End: 05-13-2022 ambulatory Angela Monster Apolonia Facility:[facility] Start: 05-12-2022 End: 05-12-2022 Patient encounter procedure Angela Barksdale [facility] Start: 05-08-2022 End: 05-09-2022 ambulatory LELIA FRANKLIN Facility:[facility] Start: 05-08-2022 End: 05-08-2022 Pain Management Sen Burgess [facility] Start: 03-28-2022 End: 03-28-2022 Patient encounter procedure Lelia Franklin [facility] Start: 03-07-2022 End: 03-07-2022 Patient encounter procedure Yael Wharton [facility] Start: 02-03-2022 End: 02-03-2022 Patient encounter procedure Lelia Franklin [facility] Start: 12-23-2021 End: 12-23-2021 Patient encounter procedure Lelia Franklin [facility] Start: 11-04-2021 End: 11-04-2021 Emergency department patient visit Cecil Novak [facility] Procedures Date Procedure Procedure Detail Performing Clinician Start: 07-19-2023 Radex spine cervical 4 or 5 views Rosario Trevizo Work Phone: Start: 07-16-2023 Radiologic exam ches t 2 views Rosario Trevizo Work Phone: Start: 06-13-2022 Epidural injection o f cervical spine using fluoroscopic guidance Leahyoan Myrick Comment on above: C6/7 PRASANNA-100% for 3 days Start: 01-21-2020 Antibody screen Comment on above: Performed By: #### T +S ####[id number] [place] [address] Cholecystectomy 1 Cecil sanford Comment on above: 2009 2009 Cholecystectomy 2 Leah hsieh Comment on above: 2009 Hernia repair Cecil Novak Splenectomy Yael Wharton Plan of Treatment Date Care Activity Detail Author Start: 2044 Shingles (RZV) Vacci ne (1 of 2) Shingles (RZV) Vaccine (1 of 2) [facility] Start: 05-29-2023 Tetanus vaccination Tetanus (T d or Tdap) Booster [facility] Start: 02-16-2023 Influenza vaccination Influenza Vacc ine (#1) [facility] Start: 2021 HPV Vaccine (optiona l start 27-45 years) HPV Vaccine (optional start 27-45 years) [facility] Start: 07-24-2014 Hepatitis A (HAV) Va ccine (2 of 2 - 2-dose series) Hepatitis A (HAV) Vaccine (2 of 2 - 2-dose series) [facility] Start: 2013 Tetanus vaccination Tetanus (T d or Tdap) Booster [facility] Start: 2012 Hepatitis C screening Hepatitis C An tibody [facility] Start: 2012 Tetanus + diphtheria + acellular pertussis vaccine (product) Tdap Booster [facility] Start: 2009 HIV screening HIV Test [facility] Start: 03-09-1995 COVID-19 Vaccine (#1) COVID-19 Vacci ne (#1) [facility] Start: 1994 Hepatitis B vaccination Hepati tis B (HBV) Vaccine (1 of 3 - 3-dose series) [facility] Immunizations Immunization Date Immunization Notes Care Provider Chico costello 04-09-2023 influenza, injectabl e, quadrivalent, preservative free Phe [address] [place] [address] 11-04-2021 tetanus toxoid, redu carly diphtheria toxoid, and acellular pertussis vaccine, adsorbed; Translations: [Boostrix (Tdap)] Cecil Novak [facility] 05-28-2018 influenza, injectabl e, quadrivalent, contains preservative [address] 05-28-2018 influenza virus vaccine, unspecified formulation [address] 05-01-2018 influenza, injectabl e, quadrivalent, contains preservative [address] 03-12-2017 Influenza, injectabl e, Madin Williams Canine Kidney, quadrivalent with preservative Phe [address] [place] [address] 10-09-2016 anthrax vaccine [address] 10-05-2016 typhoid vaccine, parenteral, other than acetone-killed, dried [address] 10-05-2016 vaccinia (smallpox) vaccine [address] 09-08-2016 anthrax vaccine [address] 09-08-2016 afghan encephaliti s vaccine for intramuscular administration [address] 08-11-2016 afghan encephaliti s vaccine for intramuscular administration [address] 04-18-2016 influenza, injectabl e, quadrivalent, contains preservative [address] 05-19-2015 influenza, seasonal, injectable, preservative free Phe [address] [place] [address] 04-13-2014 influenza, seasonal, injectable [address] 01-21-2014 hepatitis A and hepatitis B vaccine [address] 07-04-2013 hepatitis A and hepatitis B vaccine [address] 07-04-2013 poliovirus vaccine, inactivated Phe [address] [place] [address] 07-04-2013 yellow fever vaccine Phe [address] [place] [address] 05-29-2013 adenovirus, type 4 a nd type 7, live, oral Phe 4 [facility] 05-29-2013 hepatitis A and hepatitis B vaccine [address] 05-29-2013 influenza virus vaccine, live, attenuated, for intranasal use [address] 05-29-2013 meningococcal polysaccharide (groups A, C, Y and W-135) diphtheria toxoid conjugate vaccine (MCV4P) [address] 05-29-2013 tetanus toxoid, redu carly diphtheria toxoid, and acellular pertussis vaccine, adsorbed [address] 05-29-2013 tuberculin skin test ; purified protein derivative solution, intradermal [address] 02-06-2006 Hep A, unspecified formulation [facility] 02-06-2006 tetanus toxoid, redu carly diphtheria toxoid, and acellular pertussis vaccine, adsorbed [place] [facility] 06-28-2005 influenza virus vaccine, unspecified formulation [place] STEPHENSON [facility] Payers Date Payer Category Payer Unknown [id number] 1994 Unknown [id number] 1994 Unknown [id number] 1994 Unknown [id number] [id number] 1994 Unknown [id number] [id number] 1994 Unknown [id number] [id number] 1994 Unknown [id number] [id number] 1994 Unknown [id number] [id number] 1994 Unknown [id number] [id number] 1994 Unknown [id number] [id number] 1994 Unknown [id number] [id number] 1994 Unknown [id number] [id number] 1994 Unknown [id number] [id number] 1994 Unknown [id number] [id number] 1994 Unknown [id number] Private Health Insurance [facility] [id number] [id number] Social History Date Type Detail Facility [facility] Comment on above: pt denies Sex Assigned At Male [facility] Start: 12-23-2021 End: 02-11-2024 Tobacco smoking status Never smoked tobacco (finding) [facility] Comment on above: pt denies pt denies Tobacco smoking status Never [facility] Comment on above: pt denies pt denies Tobacco smoking status NHIS Tobacco smoking consumption unknown [facility] Start: 1994 Sex Assigned At Not on file [facility] Start: 1994 Sex Assigned At Male F [facility] Functional Status Date Assessment Result Facility 03-28-2023 Functional Status N/A [facility] 07-04-2022 Functional Status N/A [facility] 06-13-2022 Functional Status N/A [facility] 05-23-2022 Functional Status N/A [facility] 05-19-2022 Functional Status Yes [facility] 05-14-2022 Functional Status Yes [facility] 05-12-2022 Functional Status N/A [facility] 05-08-2022 Functional Status N/A [facility] 03-28-2022 Functional Status N/A [facility] 02-03-2022 N/A [facility] Clinical Notes 11-04-2021 to 05-04-2023 Note [...] treatment plan. 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 ?Cover your mouth when you cough. Cover [...] provider. Document Revised: 09/08/2021 Document Reviewed: 09/08/2021 [employer] Patient Education 2022 [employer]. Follow Up Care 03/28/2023 10:03:13 With:RIGOBERTO CHURCH, MAXWELL PARKINSON Address: [address] [place] [address]- When: Unknown [facility] 01-17-2023 Evaluation + Plan noteExtracted [...] in the morning it is better. Previous career center advisor did not help. Previous physical therapy did not help. Anti-inflammatory medications do not help. Health Status Allergies: Allergic Reactions (Selected) Moderate Dilaudid- Hives. Severity Not Documented Morphine- Anaphylaxis. OxyCODONE- Nausea., Allergies (3) ActiveReaction DilaudidHives morphineanaphylaxis oxyCODONENausea Current medications: (Selected) Prescriptions Prescribed Lexapro 20 mg Tab: 20 mg = 1 tab(s), Oral, Daily, # 30 tab(s), Refills(s) 1, Pharmacy: [facility]/pharmacy #[id number], 178, cm, 04/28/22 15:31:00 EST, Height/Length Dosing, 79.7, kg, 04/28/22 15:31:00 EST, Weight Dosing Vistaril 25 mg Cap: 25 mg = 1 cap(s), Oral, TID, PRN for anxiety, # 40 cap(s), Refills(s) 2, [id number] 178, cm, 04/28/22 15:31:00 EST, Height/Length Dosing, 79.7, kg, 04/28/22 15:31:00 EST, Weight Dosing cyclobenzaprine 10 mg Tab: 10 mg = 1 tab(s), Oral, TID, PRN for spasm, # 30 tab(s), Refills(s) 0, [id number], 178, cm, 03/28/22 14:15:00 EDT, Height/Length Dosing, 83.1, kg, 03/28/22 14:15:00 EDT, Weight Dosing phenylephrine 0.25% rectal gel: 1 evelyn, Topical, Daily for itching, 54 gram, Refill(s) 0, [id number] 180, cm, 06/06/22 15:30:00 EST, Height/Length Dosing, 77, kg, 06/06/22 15:30:00 EST, Weight Dosing Documented Medications Documented acetaminophen: 1,000 mg, Oral, TID, PRN as needed for pain, Refills(s) 0 Problem list: All Problems Former smoker / SNOMED CT 95178952 / Confirmed BMI 23.0-23.9, adult / SNOMED CT 1367485313 / Confirmed Family history unknown / SNOMED CT 9565062159 / Confirmed Screening for cardiovascular condition / SNOMED CT 175734473 / Confirmed Enlarged tonsils / SNOMED CT 936147180 / Confirmed Difficulty swallowing / SNOMED CT 80553390 / Confirmed Constipation / SNOMED CT 48994410 / Confirmed after GB removed Hemolytic anemia / SNOMED CT 307203706 / Confirmed Non-smoker / SNOMED CT 60182803 / Confirmed Stomal ulcer / SNOMED CT 6038370533 / Confirmed Splenomegaly / SNOMED CT 12367979 / Confirmed Hospital discharge follow-up / SNOMED CT 1245374722 / Confirmed Hereditary spherocytosis / SNOMED CT 17414750 / Confirmed Testicle lump / SNOMED CT 697893084 / Confirmed Cervical radiculopathy / SNOMED CT 936552167 / Confirmed Cervical spondylosis / SNOMED CT 1956261003 / Confirmed Muscle spasms of neck / SNOMED CT 7338626474 / Confirmed Insomnia / SNOMED CT 004861480 / Confirmed Medial epicondylitis / SNOMED CT 98533851 / Confirmed Anxiety / SNOMED CT 97462220 / Confirmed PTSD (post-traumatic stress disorder) / SNOMED CT 58485643 / Confirmed Hearing deficit / SNOMED CT 56921173 / Confirmed Lower back pain / SNOMED CT 090754095 / Confirmed History of neck pain / SNOMED CT 3723464052 / Confirmed Resolved: Cholelithiasis / SNOMED CT 706013016 2009 Resolved: Sleep apnea / SNOMED CT 260290534 Canceled: Well adult exam / SNOMED CT 763781543 Canceled: Sore throat / SNOMED CT 990737302 Canceled: Pain in the abdomen / SNOMED CT 21991281 Canceled: Fever / SNOMED CT 3008645010 Objective Vital Signs 07/04/2022 15:31 EST Peripheral [...] Difficulty with overhead activity Integumentary: Warm, Dry, [place]. Injection site well-healed Neurologic: Alert, Oriented. Psychiatric: Cooperative, Appropriate mood & affect. Results Review M54.12 POWERSCRIBE REPORT IMPRESSION: MINIMAL CERVICAL SPONDYLOSIS [...] on May 21, 2022 11:00 EST Encounter info:[id number], [facility], Outpatient, 05/19/2022 - 05/19/2022 Impression and Plan [...] Date:08/04/2022 03:00:00 PM Scheduled Provider:Leah Myrick PA-C Location:.[facility] Appointment Type:Pain Management - Follow Up (FT) [facility]12-27-2022 Note [id number]:127[facility] 05-23-2022 Evaluation + Plan noteExtracted from: Title:FUV [...] Patient voiced understanding and will do so. [facility]12-02-2022 Hospital Discharge instructions Patient Education [...] pain. Follow these instructions at home: Take uxyy-gvn-ejigcib and prescription medicines only as told by [...] 03/09/2005 Document Revised: 05/17/2018 Document Reviewed: 05/25/2017 [employer] Patient Education 2020 [employer]. Follow Up Care 05/19/2022 09:54:52 With:Lelia Franklin Address: [address] [place] [address] [phone] Business (1) When:05/22/2022 10:38:14 [facility]11-28-2022 Hospital Discharge instructions Patient Education [...] Follow these instructions at home: Medicines Take rpwg-ioc-zyfttwt and prescription medicines only as told by [...] of a condition that needs treatment. Take vxnc-kdd-wlzwpmd and prescription medicines only as told by [...] 12/01/2011 Document Revised: 06/23/2019 Document Reviewed: 06/23/2019 [employer] Patient Education 2019 [employer]. Follow Up Care 05/14/2022 19:34:16 With:Lleia Franklin Address: [address] [place] [address] [phone] Business (1) When:05/17/2022 [facility]11-25-2022 Hospital Discharge instructions Patient Education [...] than 2 years old. Live in a senior living. Travel on cruise ships. What are the [...] and water are not available, use hand tow motor mechanic. Make sure that all people in your household wash their hands well and often. Take kyzv-wnz-migjuqy and prescription medicines only as told by [...] and water are not available, use hand tow motor mechanic. This information is not intended to replace advice given to you by your health care provider. Make sure you discuss any questions you have with your health care provider. Document Released: 06/04/2006 Document Revised: 11/21/2019 Document Reviewed: 04/09/2019 [employer] Patient Education 2020 [employer] 05/12/2022 12:04:02 Upper Respiratory Infection, Adult Upper [...] medicines to help relieve symptoms, such as: Tzcc-oim-gahpdbb cold medicines. Cough suppressants. Coughing is a [...] and other clear broths. General instructions Take tmjk-cyo-zcksblk and prescription medicines only as told by [...] and water are not available, use hand tow motor mechanic. ?Avoid touching your mouth, face, eyes, or [...] 11/28/2001 Document Revised: 06/12/2019 Document Reviewed: 01/18/2018 [employer] Patient Education 2020 [employer]. Follow Up Care 05/12/2022 10:54:54 With:Rigoberto CHURCH, Lelia Palmer [facility] Address: [facility] [address] [place] [address] [phone] When: Unknown [facility] 11-21-2022 Evaluation + Plan noteExtracted [...] Date:05/23/2022 02:45:00 PM Scheduled Provider:Sen Burgess MD Location:.[facility] Appointment Type:Pain Management - Follow Up (FT) [facility]05-20-2022 Evaluation + Plan noteExtracted from: [...] 10:27:00 EDT XR Tib/Fib Right 2 View [facility]05-20-2022 Hospital Discharge instructions Patient Education 11/04/2021 11:31:02 Laceration Care, 7-10 (OLC472) Laceration Care A laceration is a cut [...] it as soon as possible. Only take mmiq-pbf-ammiokn or prescription medicines for pain, discomfort, or [...] Document Re-Released: 05/17/2009 [employer] Patient Information 2010 [employer]. Follow Up Care 11/04/2021 10:07:42 With:[facility]: [facility] [phone] Address:Unknown When:11/07/2021 11:18:10 Comments:stitches to be removed in 10-14 days [facility] App[facility]ments Appointment Date:03/08/2022 06:45:00 AM Scheduled Provider: [facility] Appoint[facility] Type:PT Traction First (FT) Appointment Date:03/10/2022 06:45:00 AM Scheduled Provider: [facility] Appointment Type:PT Traction First (FT) Appointment Date:03/15/2022 06:45:00 AM Scheduled Provider: [facility] Appointment Type:PT Re-Eval 30 () [facility] Future Appointments Appointment Date:04/28/2022 03:20:00 PM Scheduled Provider:Lelia Franklin NP Location:[facility] Appointment Type:FM Open [facility] Evaluation + Plan note Future Appointments Appointment Date:05/23/2022 02:45:00 PM Scheduled Provider:Sen Burgess MD [facility] Appoint[facility] Type:Pain Management - Follow Up (FT) [facility] Evaluation + Plan note Future Appointments Appointment Date:05/23/2022 01:20:00 PM Scheduled Provider:Lelia Franklin NP Location:[facility] Appointment Type: ER/Hospital Follow Up Appointment Date:05/23/2022 02:45:00 PM Scheduled Provider:Sen Burgess MD [facility] [place] Appointment Type:Pain Management - Follow Up (FT) [facility] Future Appointments Appointment Date:07/04/2022 03:30:00 PM Scheduled Provider:Sen Burgess MD Location:[facility] [place] Appointment Type:Pain Management - Follow Up (FT) [facility] Diagnosis Dyspnea, unspecified type- Primary Dyspnea, unspecified type [facility] Diagnosis Dyspnea, unspecified type [facility]* Diagnosis Arthritis- Primary Arthropathy, unspecified, site unspecified Arthritis Arthropathy, unspecified, site unspecified [facility]* Diagnosis Arthritis Arthropathy, unspecified, site unspecified [facility] Work [facility]: [facility]* Diagnosis Onset Date Resolution Status Low back strain acute Contact with and (suspected) exposure to covid-19 noneactive [facility] Work Phone: Hospital course Narrative No data available for this section [facility] instructions No data available for this section [facility] Progress note No data available for this section [facility] Reason for referral (narrative) Referred by: Lelia Franklin NP [facility] Summary Purpose Family History Relationship Condition Age at Onset Recorded Date/T chioma father Hypertension Unknown mother Phlebitis and thrombophlebitis Unknown Advance Directives Advance Directive Response Recorded Date/ Time Advance Directives No December 10 2:40pm Hospital Course Note Send Summary: Discharge Summ barby Providers: Provider RoleProvider Name ReferringOnders, Eagle Vieira, Addie Kuhn Note Recipients: Eagle Mcmanus MD Schwerer, Kaitlin E, MD - [phone] [] Discharge: Summary: Admission Date: .21-Jan-2020 09:19:00 Discharge Date: 28-Jan-2020 Attending Physician at Discharge: Eagle Mcmanus Admission Reason: postop bleeding(1) Final Discharge Diagnoses: Hereditary spherocytosis Procedures: Date: 21-Jan-2020 16:05:00 Procedure Name: 1. laparoscopic splenectomy Date: 22-Jan-2020 12:36:00 Procedure Name: splenic artery branch embolization Condition at Discharge: Satisfactory Disposition at Discharge: .Home Vital Signs: T PRBPSpO2 [id number]/7599% Date/Time01/27 16: 16: 16: 16: 16:04 Range(36C [...] laparoscopic splenectomy Surgeon: Dr Eagle Mcmanus Resident/Fellow/Other Lead Qa Analyst: Dr Lynnette Kaiser, Dr Annette Kaufman Anesthesia: GETA Estimated Blood Loss (mL): 20cc [...] artery branch Procedure performed by: freddie hurt Lead Qa Analyst(s): tammy Estimated Blood Loss (mL): none Specimen: [...] laparoscopic splenectomy Surgeon: Dr Eagle Mcmanus Resident/Fellow/Other Lead Qa Analyst: Dr Lynnette Kaiser, Dr Annette Kaufman Anesthesia: GETA Estimated Blood Loss (mL): 20cc [...] artery branch Procedure performed by: freddie hurt Lead Qa Analyst(s): tammy Estimated Blood Loss (mL): none Specimen: [...] Completion: I am (more content not included)... Reason for Referral Specialty Diagnoses / Procedures Referred By Raquel srivastava Referred To Contact Radiology Diagnoses Arthritis Procedures XR C-SPINE 4 VIEWS Rosario Trevizo [address] [place] [id number] [facility] RADIOLOGY [address] [place] [address] [place] [address] Referral ID Status Reason Start Date Expiration Date Visits Re quested Visits Authorized [id number] Closed 07/19/2023 07/18/2024 1 1 Specialty Diagnoses / Procedures Referred By Raquel srivastava Referred To Contact Radiology Diagnoses Dyspnea, unspecified type Procedures XR CHEST PA+LAT 2 VIEWS Rosario Trevizo [address] [place] [id number] [facility] [address] [place] [address] [place] [address] Referral ID Status Reason Start Date Expiration Date Visits Re quested Visits Authorized [id number] Closed 07/16/2023 07/15/2024 1 1 Chief Complaint and Reason for Visit Chief Complaint lower back pain Chief Complaint lower back pain Congestion, ear ache Reason for Visit Low back strain Contact with and (suspected) exposure to covid-19 Additional Source Comments (unrecognized sect ion and content) No Status Records FoundNo Status Records FoundNo Status Records FoundNo Status Records FoundNo Status Records Found INFORMATION SOURCE (unrecogn ized section and content) DATE CREATED AUTHOR 01/06/2020 [facility] DATE CREATED AUTHOR AUTHOR'S ORGANIZ ATION 02/06/2020 [facility] DATE CREATED AUTHOR AUTHOR'S ORGANIZ ATION 06/29/2020 [facility] DATE CREATED AUTHOR AUTHOR'S ORGANIZ ATION 05/07/2023 Cale Radfordus [facility] DATE CREATED AUTHOR AUTHOR'S ORGANIZ ATION 07/23/2023 [facility] Care Team (unrecognized sect ion and content) Team Status: Active Member Role Status Dates Malena James MD Primary Care Provider Active Team Status: Inactive Member Role Status Dates Malena James MD Primary Care Provider Active Start: December 11, 2023 End: December 11, 2023 Loraine Ramos APRN Attending Provider Active Start: December 11, 2023 End: December 11, 2023 Team Status: Active Member Role Status Dates NON STAFF Primary Care Provider Active Team Status: Inactive Member Role Status Dates Loraine Ramos APRN Attending Provider Active Start: February 11, 2024 End: February 11, 2024 NON STAFF Primary Care Provider Active Start: February 11, 2024 End: February 11, 2024 REASON FOR VISIT (unrecogniz ed section and content) Specialty Diagnoses / Procedures Referred By Contac t Referred To Contact Radiology Diagnoses Dyspnea, unspecified type Procedures XR CHEST PA+LAT 2 VIEWS Rosario Tre[address]izo[address] [place] [id number] [facility]OLOGY [address] [place] [address] [place] [address] Referral ID Status Reason Start Date Expiration Date Visits Re quested Visits Authorized [id number] Closed 07/16/2023 07/15/2024 1 1 Specialty Diagnoses / Procedures Referred By Contac t Referred To Contact Radiology Diagnoses Arthritis Procedures XR C-SPINE 4 VIEWS Rosario Trevizo [address] [place] [id number] [facility]Y [address] [place] [address] Referral ID Status Reason Start Date Expiration Date Visits Re quested Visits Authorized [id number] Closed 07/19/2023 07/18/2024 1 1 Goals (unrecognized section and content) Goals may be documented in a n alternate section FOR RECORDS PERTAINING TO PATIENTS WHO ARE [...] BE BASED ON THE PRIMARY CLINICAL RECORDS. [facility] [employer] [place] [facility]. provides no warranty or guarantee of the accuracy or completeness of information in this document.
[2024-05-06 21:38] VITALS: BP 143/87; PULSE 99; TEMP 36.7; O2SAT 96; BMI 25.8
--- NOTE | 2024-05-06 22:18 | XR_ITS ---
The [address] [address] Patient Name: MARION ZHENG MRN: [id number] date: 1995 Sex: M Assigned Patient Location: ER Current Patient Location: ED.MAIN Accession/Order Number: [id number] Exam Date: 05/06/2024 22:28 Report Date: 05/07/2024 00:44 At the request of: SAMANTHA ADAN Procedure: XR foot LT min 3V EXAM: XR foot LT min 3V HISTORY: great toe injury COMPARISON: None. TECHNIQUE: 3 view left foot. FINDINGS: No acute fracture, subluxation or dislocation. Specifically, no abnormality of great toe. Well-preserved joint spaces of the foot and ankle. No ankle mortise effusion. Adequate bone mineralization. No osseous lesion or destructive process. Normal soft tissues. No focal swelling. No retained opaque foreign body. XR/XR foot LT min 3V IMPRESSION: No acute bone or joint findings. Electronically authenticated by: LANCE SCHAFFER Date: 05/07/2024 00:44
--- NOTE | 2024-05-06 22:19 | ED_ITS ---
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 Increased pain with extension of the toe. No numbness or weakness. Denies other injury or complaint Related Data Home Medications ?Medication ?Instructions ?Recorded ?Confirmed sertraline 50 mg tablet 150 mg PO Q24H 06/20/23 05/06/24 Allergies Allergy/AdvReac Type Severity Reaction Status Date / Time morphine Allergy Severe Anaphylaxis Verified 05/06/24 21:43 hydromorphone (From Dilaudid) Allergy Mild Nausea Verified 05/06/24 21:43 oxycodone Allergy Mild Nausea Verified 05/06/24 21:43 Opioid HPI Opioid Management Most Recent Pain and Opioid Data: Last Pain Scale 9 05/06/24 22:11 05/06/24 Review of Systems ROS Status of ROS 10 or more systems reviewed and unremark able except as noted in history and [facility] Medical History (Updated 05/06/24 @ 23:24 by Monty Diehl MD) Hereditary spherocytosis ?D58.0 - Hereditary spherocytosis (ICD-10) Deviated nasal septum ?J34.2 - Deviated nasal septum (ICD-10) Melena ?K92.1 - Melena (ICD-10) Depression ?F32.A - Depression, unspecified (ICD-10) Insomnia ?G47.00 - Insomnia, unspecified (ICD-10) Bulging disc Chronic migraine Surgical History (Updated 06/21/23 @ 00:01 by Rebecca Moody) H/O hernia repair ?Z98.890 - Other specified postprocedural states (ICD-10) ?Z87.19 - Personal history of other diseases of the digestive system (ICD-10) History of cholecystectomy ?Z90.49 - Acquired absence of other specified parts of digestive tract (ICD- 10) Hx of tonsillectomy ?Z90.89 - Acquired absence of other organs (ICD-10) H/O splenectomy ?Z90.81 - Acquired absence of spleen (ICD-10) Family History (Updated 06/21/23 @ 00:02 by Rebecca Moody) Uncle Family history of myocardial infarction Social History (Updated 06/21/23 @ 00:06 by Rebecca Moody) Within the past year, how often did you have a drink containing alcohol: never Score interpretation: A score less than 4 is consistent with normal alcohol consumption. 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 Highest level of school completed/degree received: high school graduate Are you now , , , , never or living with a partner: In a typical week, how many times do you talk on the telephone with family, friends, or neighbors: 3 or more times per week How often do you get together with friends or relatives: 3 or more times per week How often do you attend orthodox or taoism services: never Do you belong to any clubs or organizations such as orthodox groups unions, [employer] or athletic groups, or school groups: no Total score: 1 Score interpretation: A score of less than or equal to 1 indicates the most socially isolated. Little interest or pleasure in doing things: not at all Feeling down, depressed, or hopeless: not at all Feel stressed/tense/nervous/anxious/difficulty sleeping: to some extent Do you think of yourself as: straight/heterosexual Gender Identity: male Exam Constitutional Vital Signs, click to edit/add: Last Vital Signs Temp 98.1 F 05/06/24 21:38 Pulse 99 H 05/06/24 21:38 Resp 14 05/06/24 21:38 BP 143/87 H 05/06/24 21:38 Pulse Ox 96 05/06/24 21:38 O2 Del Method Room Air 05/06/24 21:38 Common normals: no apparent distress, average body habitus, oriented x3, no limitations, healthy appearing, alert and well nourished [facility] Common normals: normocephalic and head/scalp atraumatic Respiratory Common normals: normal respiratory effort, no retractions, no use of accessory muscles and clear to auscultation bilaterally Cardio Common normals: regular rate, regular rhythm, S1 normal heart sound and S2 normal heart sound Extremity Other: left foot normal in appearance. faint ecchymosis of the left great toe. No definite swelling. Neuro Common normals: oriented x3, CN's II-XII intact bilaterally, moves all extremities and no focal motor deficits Psych Appearance: grossly normal Course Vital Signs Vital signs: Vital Signs Temperature 98.1 F 05/06/24 21:38 Pulse Rate 99 H 05/06/24 21:38 Respiratory Rate 14 05/06/24 21:38 Blood Pressure 143/87 H 05/06/24 21:38 Pulse Oximetry 96 05/06/24 21:38 Oxygen Delivery Method Room Air 05/06/24 21:38 Temperature 98.1 F 05/06/24 21:38 Pulse Rate 99 H 05/06/24 21:38 Respiratory Rate 14 05/06/24 21:38 Blood Pressure 143/87 H 05/06/24 21:38 Pulse Oximetry 96 05/06/24 21:38 Oxygen Delivery Method Room Air 05/06/24 21:38 MDM - Extremity Injury (Lower) MDM Narrative Medical decision making narrative: presents after injury to the left great toe during martial arts class. Has pain of the toe . Denies other injury. Xray of the foot ordered. N/V toe normal xray per my preliminary review is neg for fracture. Patient informed that the official reading of the xray is still pending Imaging Data Chest x-ray: Radiologist's impression: ITS Impressions Foot X-Ray 05/06/24 22:18 IMPRESSION: No acute bone or joint findings. Electronically authenticated by: LANCE SCHAFFER Date: 05/07/2024 00:44 Discharge Plan Discharge Chief Complaint: Extremity Injury, Lower Clinical Impression: Contusion of left great toe without damage to nail Patient Disposition: Home, Self-Care Prescriptions / Home Meds: No Action sertraline 50 mg tablet 150 mg PO Q24H Print Language: Sri Lankan Instructions: Foot Contusion (ED) Referrals: Physician,Non-Staff, MD [Primary Care Provider] - 1 week
[2024-05-07 01:07] VITALS: BP 126/67; PULSE 64; O2SAT 97
== END 2024-05-07 01:09 | disposition home or self-care (01) ==
PROVIDERS: Emergency Provider Internal Medicine
DX: S90.112A Contusion of left great toe without damage to nail, initial encounter (principal); F17.290 Nicotine dependence, other tobacco product, uncomplicated; Z90.49 Acquired absence of other specified parts of digestive tract; Z90.81 Acquired absence of spleen; W51.XXXA Accidental striking against or bumped into by another person, initial encounter; Y93.75 Activity, martial arts
CPT/HCPCS: 73630; 99283

== ENCOUNTER 2024-09-10 10:06 | Emergency (ER) | payer OTHER, SELFPAY ==
[2024-09-10 10:10] VITALS: BP 149/95; PULSE 83; TEMP 36.8; O2SAT 97; BMI 25.1
--- OUTSIDE RECORDS SUMMARY | 2024-09-10 10:26 | XMS_ITS | CCD ---
Author Organization [facility] Care Team Providers Care Corporate Development Officer Name Role Phone Lelia Franklin Primary Care Physician Ade Fuller Unavailable Unavailable Zoila Webb Unavailable Jose Taylor Attending Unavailable Karan العراقي Attending Unavailable MABLE STEPHENSON Attending Unavailable Angela Barksdale Attending Unavailable LELIA FRANKLIN Attending Unavailable Leah Grover Attending Unavailable ROBERTO CARLOS Myrick Leah Admitting Unavailabl e Leah Myrick Attending Unavailable LELIA FRANKLIN Referring Unavailable ROBERTO [...] Provider Unavailabl e PROVIDER, UNKNOWN Admitting Unavailable ROSARIO TREVIZO Referring Unavailabl e PROVIDER, UNKNOWN Attending Unavailable ROSARIO TREVIZO Referring Unavailabl e PROVIDER, UNKNOWN Attending Unavailable PROVIDER, UNKNOWN Admitting Unavailable Allergies Allergy Classification Reported Allergen(s) Allergy Type Date of Onset Reaction(s) Facility (16 sources) HYDROmorphone; Translations: [hydromorphone] Drug Allergy Weal (disorder) [facility] (19 sources) Morphine; Translations: [morphine] Drug Allergy 12-11-2023 anaphylaxis, Unknown, Unknown Reaction [facility] (19 sources) oxyCODONE; Translations: [oxycodone] Drug Allergy 12-11-2023 Nausea (finding) [facility] (2 sources) 43-otuha-Xudfyan progesterone Drug Allergy 12-11-2023 Unknown Reaction [facility] Medications Current Medications Medication Drug Class(es) [...] day(s), # 21 cap(s), Refills(s) 0, Pharmacy: [facility]/pharmacy #[id number], 177, cm, 03/28/23 10:47:00 EDT, Height/Length Dosing, 75.8, kg, 03/28/23 10:47:00 EDT, Weight Dosing Start Date: 03/28/23 Stop Date: 04/04/23 Status: Ordered Start: 05-19-2022 End: 05-26-2022 take 1 capsule by mouth three times daily benzonatate 200 mg oral capsule 200 mg = 1 cap(s), Oral, TID, X 7 day(s), # 21 cap(s), Refills(s) 0, Pharmacy: [facility]/pharmacy #[id number], 180, cm, 05/19/22 10:12:00 EST, Height/Length Dosing, 80, kg, 05/19/22 10:12:00 EST, Weight Dosing Start Date: 05/19/22 Stop Date: 05/26/22 Status: Ordered brompheniramine maleate 0.2 mg/ml / dextromethorphan hydrobromide 1 mg/ml / phenylephrine hydrochloride 0.5 mg/ml oral solution (4 sources) Uncompetitive V-jslfms-A-aspartate Receptor Antagonist, Sigma-1 Agonist, alpha-1 Adrenergic Agonist Start: 05-14-2022 take 10 mL by mouth every four hours for cough and congestion brompheniramine/dextromethorph/phenyleph rine 1 mg-5 mg-2.5 mg/5 mL oral liquid 10 mL, Oral, q4hr for cough and congestion, 118 mL, Refill(s) 0, [facility]pharmacy #[id number], 180, cm, 05/14/22 19:45:00 EST, Height/Length Dosing, 79.5, kg, 05/14/22 19:45:00 EST, Weight Dosing Start Date: 05/14/22 Status: Ordered brompheniramine maleate 0.4 mg/ml / dextromethorphan hydrobromide 2 mg/ml / pseudoephedrine hydrochloride 6 mg/ml oral solution (2 sources) alpha-Adrenergic Agonist, Uncompetitive L-yplzix-J-aspartate Receptor Antagonist, Sigma-1 Agonist Start: 05-12-2022 End: 05-19-2022 take 10 mL by mouth every six hours Bromfed DM oral syrup 10 mL, Oral, q6hr for cold symptoms for 7 day(s), 280 mL, Refill(s) 0, [facility]/pharmacy #[id number], 178, cm, 05/12/22 11:45:00 EST, Height/Length [...] day(s), # 20 cap(s), Refills(s) 0, Pharmacy: [facility]/pharmacy #[id number], 180, cm, 05/19/22 10:12:00 EST, Height/Length [...] Daily, # 30 tab(s), Refills(s) 1, Pharmacy: [facility]/pharmacy #[id number], 178, cm, 04/28/22 15:31:00 EST, Height/Length Dosing, 79.7, kg, 04/28/22 15:31:00 EST, Weight Dosing Start Date: 04/28/22 Status: Ordered Start: 03-28-2022 take 1 tablet by aries th once daily Lexapro 10 mg Tab 10 mg = 1 tab(s), Oral, Daily, # 30 tab(s), Refills(s) 1, Pharmacy: [facility]/pharmacy #[id number], 178, cm, 03/28/22 14:15:00 EDT, Height/Length Dosing, 83.1, kg, 03/28/22 14:15:00 EDT, Weight Dosing Start Date: 03/28/22 Status: Ordered gabapentin 300 mg oral capsule (1 source) Anti-epileptic Agent Start: 07-04-2022 take 1 capsule by mouth once daily at bedtime gabapentin 300 mg Cap 300 mg = 1 cap(s), Oral, Once a day (at bedtime), # 30 cap(s), Refills(s) 1, Pharmacy: [facility]/pharmacy #[id number], 180, cm, 07/04/22 15:40:00 EST, Height/Length [...] # 40 cap(s), Refills(s) 2, [id number], 178, cm, 04/28/22 15:31:00 EST, Height/Length Dosing, 79.7, kg, 04/28/22 15:31:00 EST, Weight Dosing Start Date: 04/28/22 Status: Ordered Norfolk (1 source) Norfolk Active methocarbamol 750 mg oral tablet (1 source) Muscle Relaxant Start: 02-03-2022 End: 02-10-2022 take 2 tablets by mouth at bedtime methocarbamol 750 mg Tab 1,500 mg = 2 tab(s), Oral, Bedtime, X 7 day(s), # 14 tab(s), Refills(s) 0, [id number], 178, cm, 02/03/22 10:55:00 EDT, Height/Length Dosing, 80.8, kg, 02/03/22 10:55:00 EDT, Weight Dosing Start Date: 02/03/22 Stop Date: 02/10/22 Status: Ordered methylPREDNISolone 4 mg oral tablet (3 sources) Corticosteroid Start: 02-03-2022 End: 02-09-2022 Medrol 4 mg Tab = 1 packet(s), Oral, As Directed, as directed on package labeling, X 6 day(s), # 21 tab(s), Refills(s) 0, [id number], 178, cm, 02/03/22 10:55:00 EDT, Height/Length Dosing, 80.8, kg, 02/03/22 10:55:00 EDT, Weight Dosing Start Date: 02/03/22 Stop Date: 02/09/22 Status: Ordered Start: 12-23-2021 End: 12-29-2021 Medrol 4 mg Tab = 1 packet(s ), Oral, As Directed, as directed on package labeling, X 6 day(s), # 21 tab(s), Refills(s) 0, [id number], 178, cm, 12/23/21 16:48:00 EDT, Height/Length Dosing, 81, kg, 12/23/21 16:48:00 EDT, Weight Dosing Start Date: 12/23/21 Stop Date: 12/29/21 Status: Ordered phenylephrine 0.0025 mg/mg / witch vikas 0.5 mg/mg rectal gel (2 sources) alpha-1 Adrenergic Agonist Start: 06-06-2022 phenylephrine 0.25% rectal gel 1 evelyn, Topical, Daily for itching, 54 gram, Refill(s) 0, [facility]/pharmacy #[id number], 180, cm, 06/06/22 15:30:00 EST, Height/Length Dosing, 77, kg, 06/06/22 15:30:00 EST, Weight Dosing Start Date: 06/06/22 Status: Ordered predniSONE 20 mg oral tablet (5 sources) Start: 05-04-2023 take 1 tablet by mouth every twelve hours prednisone 20 MG 1 tablet Orally BID for 5 17 Apr, 2023 Active Start: 03-28-2023 End: 04-04-2023 take 1 tablet by mouth once daily predniSONE 20 mg Tab 20 mg = 1 tab(s), Oral, Daily, X 7 day(s), # 7 tab(s), Refills(s) 0, Pharmacy: [facility]/pharmacy #[id number], 177, cm, 03/28/23 10:47:00 EDT, Height/Length Dosing, 75.8, kg, 03/28/23 10:47:00 EDT, Weight Dosing Start Date: 03/28/23 Stop Date: 04/04/23 Status: Ordered Start: 05-19-2022 End: 05-24-2022 take 3 tablets by mouth once daily predniSONE 20 mg Tab 60 mg = 3 tab(s), Oral, Daily, X 5 day(s), # 15 tab(s), Refills(s) 0, Pharmacy: [facility]/pharmacy #[id number], 180, cm, 05/19/22 10:12:00 EST, Height/Length Dosing, 80, kg, 05/19/22 10:12:00 EST, Weight Dosing Start Date: 05/19/22 Stop Date: 05/24/22 Status: Ordered Sertraline (2 sources) Serotonin Reuptake Inhibitor Start: 03-28-2023 sertraline Oral, Brielle ly, Refills(s) 0 Start Date: 03/28/23 Status: Ordered take 1 tablet by aries every twenty-four hours Sertraline HCl 100 MG [...] 10 MG PO Three times daily 15 5 December 11, 2023 12:00am February 11, 2024 9:23am Start: 03-28-2022 take 1 tablet by aries three times daily as needed for muscle spasms cyclobenzaprine 10 mg Tab 10 mg = 1 tab(s), Oral, TID, PRN for spasm, # 30 tab(s), Refills(s) 0, Pharmacy: [facility]/pharmacy #[id number], 178, cm, 03/28/22 14:15:00 EDT, Height/Length Dosing, 83.1, kg, 03/28/22 14:15:00 EDT, Weight Dosing Start Date: 03/28/22 Status: Ordered Start: 12-23-2021 End: 01-13-2022 take 1 tablet by mouth at bedtime cyclobenzaprine 5 mg Tab 5 mg = 1 tab(s), Oral, Bedtime, X 21 day(s), # 21 tab(s), Refills(s) 0, Pharmacy: [facility]/pharmacy #[id number], 178, cm, 12/23/21 16:48:00 EDT, Height/Length [...] Test Name Value Interpretation Reference Range Facility FLOW CYTOMETRY RLLYMPon -2 FLOW CYTOMETRY ORDER STATUS Results will be reported under F case ID when completed Normal [facility] Comment on above: Order Comment: Shanda sherwood Type: TISSUE SPECIMEN Ordering Facility: [facility] Address: ATTN: LABORATORY, [place] [address] Performed By: #### R LLYMP #### [facility] CLIA [id number] [address] [place], [place] [id number] [place] FLOW CYTOMETRY RLLYMP REFLEX on 09-05-2024 DIAGNOSIS COMMENT This test was develo ped and its performance characteristics determined by [facility]'s Alok JJurgen [facility] Pathology [facility] [place] ([facility]). It has not been cleared or approved by the FDA. [facility] is regulated under CLIA as qualified to perform high-complexity testing. This test is used for clinical purposes. It should not be regarded as investigational or for research. Normal [facility] Comment on above: Order Comment: Shanda sherwood Type: TISSUE SPECIMEN Ordering Facility: [facility] Address: ATTN: LABORATORY, [place] [address] Performed By: #### R LLYMPRFLX #### [facility] CLIA [id number] [address] [place] [address] [place] FINAL PERFORMING LAB Normal [facility] Comment on above: Order Comment: Speci presley Type: TISSUE SPECIMEN Ordering Facility: [facility] Address: ATTN: LABORATORY, [place] [address] Result Comment: Diag nostic interpretation performed at [facility], [address] [place], [place] [id number] CLIA# [id number] Shredding Machine Tender: Oumar Wilder M.D. Performed By: #### R LLYMPRFLX #### [facility] CLIA [id number] [address] [place] [id number] [place] FLOW CYTOMETRY RESULTS Normal [facility] Comment on above: Order Comment: Speci men Type: TISSUE SPECIMEN Ordering Facility: [facility] Address: ATTN: [place] [address] Result Comment: Spec imen type: Nasopharynx biopsy. Morphology comments: Degenerated specimen. Small clusters of cohesive-appearing cells are present. Viability: 86% Results: % total events Lymphocyte gate: 77 High FSC gate: 3 Flow Cytometry T-cell Immunophenotyping Marker Normal Cell Type Result (Lymphocytes) CD2 T-cell Normal Pattern CD3 T-cell Normal Pattern CD4 T-cell Normal Pattern CD5 T-cell Normal Pattern CD7 T-cell Normal Pattern CD8 T-cell Normal Pattern CD13 Myeloid Normal Pattern CD16/56 NK-cell Normal Pattern CD19 B-cell Normal Pattern CD45 Leukocyte Normal Pattern TRBC1 T-cell Normal, polytypic A limited flow cytometric analysis using CD45 and side scatter gating was performed on the nasopharynx biopsy due to low cell yield. The lymphocytes consist of a mixture of heterogeneous T cells (44%); CD4:CD8 ratio = 2.75, NK cells (2%), and B cells (52%). MMN/JOHNNY 2024 Performed By: #### R LLYMPRFLX #### [facility] CLIA [id number] [address] [place] [address] [place] GROSS DESCRIPTION A. Nasopharynx Normal [facility] Comment on above: Order Comment: Speci men Type: TISSUE SPECIMEN Ordering Facility: [facility] Address: ATTN: [place] [address] Result Comment: RECE IVED ONE PIECE OF TISSUE MEASURING 0.2 CM X 0.2 CM X 0.1 CM IN RPMI Performed By: #### R LLYMPRFLX #### [facility] CLIA [id number] [address] [place] [address] [place] INTERPRETATION Normal [facility] Comment on above: Order Comment: Speci men Type: TISSUE SPECIMEN Ordering Facility: [facility] Address: ATTN: [place] [address] Result Comment: Ther e is no immunophenotypic evidence of involvement by a T-cell lymphoproliferative disorder in this limited sample. Correlation with the histopathologic and clinical findings is suggested. at 1318 EDT Performed By: #### R LLYMPRFLX #### [facility] CLIA [id number] [address] [place], [place] [address] [place] [address] [place] XR C-SPINE 4 VIEWSon 024 XR C-SPINE 4 VIEWS EXAMINATION: XR [...] IMPRESSION: Unremarkable study. MACRO: None Normal [facility] [employer] [facility] XR Cervical spine 4 Viewson 07-19-2023 [...] is normal. IMPRESSION: Unremarkable study. MACRO: None Gil Coker MD - 07/19/2023 EXAMINATION: XR C-SPINE 4 [...] is normal. IMPRESSION: Unremarkable study. MACRO: None [facility] Study observation (narrative) [facility] Cervical spine 4 ViewsOrd ered By: Gil Craig on 07-19-2023 [employer] Work Phone: XR CHEST PA+LAT 2 VIEWSon [...] acute cardiopulmonary findings. MACRO: None Normal [facility] [employer] [facility] XR Chest PA and Lateralon EXAMINATION: [...] DIAGNOSIS: Dyspnea, unspecified type ORDERING PROVIDER: ROSARIO JOSELINE TECHNOLOGISTS NOTE: COMPARISON: None FINDINGS: Cardiomediastinal silhouette: Normal heart size. Trachea: Midline. Lungs and pleura: No pulmonary consolidation, pleural effusion or pneumothorax. Osseous structures: Unremarkable. Included upper abdomen: Endovascular coils in the region of the splenic artery. Right upper quadrant surgical clips, compatible with prior cholecystectomy. IMPRESSION: No acute cardiopulmonary findings. MACRO: None [facility] Radiology Study observation (narrative) [facility] X[facility] Chest PA and LateralOrder ed By: Tung Garvey on 07-16-2023 [facility] Work Phone: Auth for Release of Medical Recordson 05-04-2023 Auth for Release of Medical Records [id number] IFF Normal [facility] Grp A Strp PCRon 03-29-2023 Group A Strep Negative Normal [facility] Comment on above: Result Comment: Test ing performed using DNA amplification. Performed By: #### 1 [id number] ####[facility] [address] [place] [address] Grp A Strp Intrl Ctrl Pass Normal [facility] Comment on above: Performed By: #### 1 [id number] ####[facility] [address] [place] [address] Ambulatory Visit Summaryon 1 Ambulatory Visit Summary [...] with cough Duration: 7 Days Pickup at [facility]/pharmacy #[id number] New predniSONE (predniSONE 20 mg Tab) 1 Tablets By Mouth Every day Viral URI with cough Duration: 7 Days Pickup at [facility]/pharmacy #6173 Unchanged acetaminophen 1,000 Milligram By Mouth 3 times a day as needed for as needed for pain Unchanged sertraline By Mouth Every day Unchanged trazodone (traZODONE 100 mg Tab) Pharmacy Information [facility]/pharmacy #[id number]: [address] [place], [place] [phone] Allergies Dilaudid (Hives) morphine (anaphylaxis) oxyCODONE (Nausea) [...] receiving treatment for. Cholelithiasis Sleep apnea Normal [facility] Family Medicine Office/Clini c Noteon 03-28-2023 Family [...] with voice recognition artificial intelligence software, specifically [employer], [employer] and or [employer]. Substitutions may have occurred due to the [...] at this time. 27-year-old male presented to [facility] care, for viral upper respiratory infection and a nonproductive cough, patient appeared ill but not septic, no respiratory disorders noted, no difficulty swallowing. Patient was given a prescription for prednisone and Tessalon Perles, work excuse note, instructed to take jpsn-kot-hzasxqa ibuprofen Tylenol as needed for headaches, body aches, fevers. Drink plenty water stay hydrated. Patient agree with plan. 1. Viral URI with cough (J06.9: Acute upper respiratory infection, unspecified) See above Ordered: benzonatate, 100 mg = 1 cap(s), Oral, TID, X 7 day(s), # 21 cap(s), Refills(s) 0, Pharmacy: [facility]/pharmacy #[id number], 177, cm, 03/28/23 10:47:00 EDT, Height/Length Dosing, 75.8, kg, 03/28/23 10:47:00 EDT, Weight Dosing predniSONE, 20 mg = 1 tab(s), Oral, Daily, X 7 day(s), # 7 tab(s), Refills(s) 0, Pharmacy: [facility]/pharmacy #[id number], 177, cm, 03/28/23 10:47:00 EDT, Height/Length Dosing, 75.8, kg, 03/28/23 10:47:00 EDT, Weight Dosing Group A Strep by PCR Rapid COVID POC 54261 Rapid Strep POC 24978 Follow-up With When Contact Information RIGOBERTO CHURCH, LELIA [address], [place] [address]- Additional Instructions: Patient Education Viral Respiratory Infection, Kles-Vh-Lcpg Problem List/Past Medical History Ongoing Anxiety Cervical [...] apnea Procedure/Surgi (more content not included)... Normal [facility] Comment on above: Result Comment: Elec [...] home: Managing pain and congestion ? Take xpra-vtk-tbelzvp and prescription medicines only as told by [...] cannot use soap and water, use hand coat ironer hand. ? Cover your mouth when you cough. [...] provider. Document Revised: 09/08/2021 Document Reviewed: 09/08/2021 [employer] Patient Education ? 2022 [employer] [facility] (Inserted Image. Claudia ble to display) [address] [address] March 28, 2023 CHRISTIANO [facility] [address] [place] [address] : 1995 Please excuse CHRISTIANO ZHENG from work . Date and/or Time of Absence: From: 03/28/23 May return to work on: 03/30/23 Restrictions: None Comments: Please excuse due to an acute illness. Provider Signature: Mable Stephenson PA-C [address] [place] [address] [facility] Referrals Officeon 3 Referrals Office [phone] 221 [id number]#[id number] D:127 [facility] Coding Summary.on 08-07-2022 Coding Summary. CD:[id number] Gh0 bWw+PGhlYWQ+NV2OEATkK17 uxAYwuZ7ZF2kLCS5UATKLTS IDLI1JMF4evFK4HBdaA6Vnp iAv WegqtOIoII59SSb0GWW5nMl dIZlloS1qqVOjA6y7NjNkNJ 39rP57DZruSMYbHmH7PuTcb jsgbWFy Q2ppSiIguALgPer+PHRhYmx lIHdpZHRoPScxMDAlJyBzdH gqIG8uBb4rFVIsZJFsiIaop HNlOiBj s8hsNVNcRRvcDF2yqUesC2K smMM4KIJuc4p8Ep84vEQ+PH HhITN7jTsyAIene322KnBeq 8pjKLV8 oIBwGGxfRKN8J35ek9M7JKJ mMBYmICK7qEB5pQ0lgXrvev ncM0JpuIGaGsS3VJB1uDAnn E5wvBqx xtthmZ9hIkp+O79NNY7SUVR DTP7OWxr2T2SbCqofnIG+PC 90DSFpMM12gBNodOGfa2cde Xq5VxOu DEGjHSB0zEsrDEnyk3IqZYX eE24ppGKjm0R6EMBbjOvnxG ScJpRjrTL3hH9lHVkvyissf 2hvdzsn Kgeig7fbhy40sD04N84vEXn lZMJdASH1VWFlJKRvpVlpld 0bwD4gHc5+VHjyu0lvj7sib Kq3HhCc EDRilgGuzWftVII6k9OyYo2 9K9PafOqxo3QfBpn8hu94jN Wyx7S9gGO2HIzoEAAawC0hP WxlZnQ6 ZRExKeQwzS29aKBnBBckKv9 wtMmzrCpdSC1qTPDeprflYF OwbP7hOMYzaSMwxZrnPB7jR TBpbjtm m581IwDtDGO0UKJxbMGiI8P ddX2hVqNmKVYzTCJkG5RhlQ DzNLthO236FIcjHgT2CKZkm mSnY3Nd YOCqdDgnVzX9n3C4Fs6Mc2A fdssnLQK6ACofEOPjMwApSy BjAeO4E3DoZrd9LDCfnMgbO N0rT5Wj LHMmxstrqrcrbAV6XNBtKWA biH61qUGoINpxDz9id0G9j0 10BIGxNBPtcS46Lz4nfBpjO TBwdCBU mV8hsdmms9potlqzMrPkLRQ mLYb4SHy7RHBwvCwyYyIdAJ Z2CfD3GKB8sTGjnL4bkTkoi fzjgH7g Oyc+O31cjK3vMRV2TMV6cid lQWYnwtLdYF41PK43I3XkZr wvdGFibGU+PGRpdiBzdHlsZ H8mBgId m0frt9EmRGciY9AdIUOlIMw kNng9ABDrCIZ9wUK1wZ4qGA XqXSgup6Q2hBZ1Z3OtiaYfv t7xb1kw FPFyCGakQ26gdAIkl7X1QHQ cmTQ7YBKddWqrHnVdyY86Eo c+JLMsmZyrw2LeYzfor9gsa 8emtMc3 NjIsUDTwxdQuuAqqPJC6y7T tTa32P57yIHxrZRVpFCXjGW LrNQMccDwnmm2kxQ2zDe2+P GNvbCB3 mLN0kU5qURTzAlQ7FWfbW23 1LzYdqPMrLtjjs9mpa5thnK h4PvBtMAWskbMhtAxgMIX3i 0GaNz43 O47iAZmmKWNiEHRqXRIgFYK tkSqlzd5qnG5yZm8+PC9jb2 zwat11tY06lOA+CEYlBHN1o WxlPSdw QITjbV6qPTlwFmB2VGYdNkS hbT84iHGdUWpyLf6lhHbfyC luIV9yYYVpqzofq568DdAdm 2xkIDEw gQFySXiyXSC1K28cr0F3ORM bYYWtMDG5sMU9qM9hrZwivj ogbGVmdDsgdmVydGljYWwtY VetP369 IHRvcDsnPlBhdGllbnQgTmF fJMw9I2HvEmf8RQWbiVmeAF 5ijIXdCRzxDs0utExxtWkiA V6eCBXf eewaf045TkPod8jxVLEyrAU kCQuxBDK1O80zr1S7XCQkLG YpHOA2hUF6sO4wwHigvqhng GVmdDsg ljEqxNucQItuDKcmS701GXL wnVqzCcLliyYuGLWvcCA9YK 77IY85xBXbw5Q8hCZ6J8WdB GRpbmct zfzzpSP5JYCmQMZyrE82Zp7 sqXcbPg7gWXCxNZB5ICBxrX EpL2VmwK6qKcUrISXwPNTjV 3RleHQt HOtpL232WEalZgV1RGUkxaO vA2VjDRJyyPlkIbN3f7I2Vb 7IF3G7IV18HB97bGGtt1E6m NR1D2Wn NSGmejqrgirymLO2ZLMlFSF djC27Eh3haIpeNs6aGYGdIR I6TYBtoNKmP8XlzZ6cXfOsN DAwMDAw U5MivXOyPUlwQ071USbkQjQ 8LYHlbiAoU8KuFFDqwJjrUm C4d9X6Gp0QDJw6LV12RW37g PZgl0J7 mOW5L9EhUVOibhrtoqszeSG 4VZXnOUVclE86Uy4siDwnJz 7pMXLcYRY5EANtwJJhG1Ptv P8qXoMm IVMhLOHpG8HqnYFmXMbbB89 5IGcpXyJ3KFXifyVhP7YiFU IhtPncRuG2n0O2Ya8EXMNoZ T68SGA3 pEF1QW07IM99E8HnBmvfeLI ibGU+PHRhYmxlIHdpZHRoPS naXOTqCePhdKbkFJ4nMr8cL GVyLWNv fUrncJXtAyTvz2tkOPTyMIu kTH7quQwfC4JtgHS1JROav2 s5Xx84A86yZ6FsmKL+PGNvb DO3cKH5 tD0aFhRnHhE2NQbuF344HeK niADiAmvcg2jex6oebMw0Hh J1FVRpfiNjiAtsMNH0n1SpP k37M88y IHdpZHRoPSIxNSUiIHZhbGl ztb8vjA1oGn0+ZXBfuRP0iY O6yR0zIrZyAuK3OLjkV835D nRvcCIv Qhsog0fgg2lmrNf0HlAeIDL zziGpeMjoXSU9h8NzAu18M5 EizZoin5OyRug8wf07yTPbe 1C5eLW9 R1NbVQDbjnfdbBQeuPaqKJ6 wTRZialwrDGMnnD4lNQChG4 s0MkEeJqG2BYbyZ4EzmrU3X DEwcHQg RBixRGH4X43jp0B4IKNaQYO wYIV0cLP8kY7rvIjwyueexQ VmdDsgdmVydGljYWwtYWxpZ 246IHRv uIiqJUWbmN0mZMUziQPeuXq nLK3xDYTzvubxMjcGZdcgLH mYFmVSTJ99XH68iECkr7W7p HL2G8Jf DUWqpbdjgdglbPR7BVXrNOL nnN57cUTgKZhmEz3fc1L9i3 61YTSvVWYixK19Hp3niDlxG TBwdCBU zV0bssnce7qqrvlsIxLsWZW iYBc1SBr9ZMKaoZjuJlDsQJ Y7HgH1NRF6sWSbbF3wqFhiw avydM6b Oyc+YJHbFuUwMMw6PRyfcMG +JZBcEMP9mBudVEidLIZbcJ 4qTYVjB5f2PzMoJmQ7RWvzU 3BhZGRp asnjKr93pB3wCiDvCdJ4QIq xS5TzamM2YNRlmZKfIDouXU E3S72ee7Y9VCOqTDHtMPN3c KC6mZ4x bGlnbjogbGVmdDsgdmVydGl qTSbcAWoxA075THJxeMdlTm R2BTdtJTMcJT03JS64jAUje 6X0qFT3 M8KgMJIioycxyfrmzYY3MCM aUMRlrR94iVCgPYjzPs0cj6 T7u936CJKfSOJmhI61As2hn DogMTBw bQSJdC1raybvq9monaykUiG oIULvYCb3JEc5FEGzeBpqDp KmHQG1ObX1JRF2kOUhkL0hl Glnbjog fR5yBhz+TWFsZTwvdGQ+PHR zDJO5kByxYOkaEWJlpI9tMK WxE1a2XwJzBuX8OEtjJ9EyT GRpbmct Cy38rC4yJvIcTaA2NBqbX5K jkkJ9WUJirPKyOOfkIGH5Y2 5fw4C8BWLnOCIsLAS2hVS3e S0hkBsj bjogbGVmdDsgdmVydGljYWw rIPkxJ001CLPnrSzuJsUdlS 4gTWFuYWdlbWVudDwvdGQ+P Z85es51 E6KiAghfQmo6OVZcCTL1eMX 8iK7pPZUjBNgsh6W9uKB1P8 CljkPlbb6hl6nlMMMtAExyR 29sbGFw k6R1TMWfmTE1YKZbyZnqRaC unL85Ksi+PKTitQydo0MnQx qyb7hvv6ajyUp6WjQgUDJfg mFsaWdu IEG5u8XoEn78Y48pUIyfCUD iBHRaADDbIBQmdEtgsa4ixO 9wIi8+HJBzuPK3yIN2lM6yR jAlIiB2 RIizG050NiPedQTxLpdxg0t lx1fdrMt2ZgVgTZElpkApvX xfPXT6b0RhSc54D8YtwWeoj 3ErSwe2 un86uCSpq5F3bBO6A7FeFXA wxvegsWDivDjiHO0zERVvhm cmVORlvT3gMXSqV6x3ZpBfZ pJ0GZkj T0YyqkT4LXCrpIUkEVTfuJW NoX4zxzugn0jetilpFzBsFD AsZWo3JXv7WFPktJrvSmIeY UP8HiK0 LHO1aLFxdS6ghAxnoeibpK6 wOyc+ZSq3t9pldROqYS5ycJ F9QE13BZ51kLIzj6I4hTW6U 3BhZGRp qxmvlmwikKX9POYtZAMocY7 4Gv7kmDuhRb8lLRXhKLK5YD QevEAiO9LeaI3bLhGnBEBxU KHbX6Fx yNUmBLzfG371ZHvkSgS1OMV oweWyB9RpWSQidKwpGyA3z9 X2Xi2DZI91MU34US26jFPiv 2Q5kIW7 Z1FiFBRpmxlpdhglaNF0KFZ iLAQkkL67Em9rsHgtBx5hQF WjOWJ9CVWsjHSvI2LonF3vH iAjMDAw ZNMxO1CxeIAdAAkxN448IQx tPmT5CBCndfBwZ3TwQLQnrV nmBjX0y0B7Hb2SIe03DW29F F33hFZo s3B5jCG7J8DvRZVxswffmdj pfTT4CIHqHYPgeK62Tw9hvX ixEp2tOXAjPLT3GWXdlWBtB 2MvgJ0t PsKxETUsFBVeS7VaoVNmIUl rY679ZFixRmE8RLPbkuXyE6 VtZMXseCmoLuS3u3M0By2JP Xllcjo8 H5LcRqtarFY+DV81EMMwVJ5 3jYBftNIci6edpVu2VuZuJI RoPOS4iAnxSQdpz0EwCCYbR 29sbGFw c2U6 (more content not included)... Normal [facility] Consent for Treatmenton 07-19 Consent for Treatment [id number] CD:127 Normal [facility] Consultation Noteon 08-04-19 Consultation Note Patient: [...] All Problems Former smoker / SNOMED CT 51321536 / Confirmed BMI 23.0-23.9, adult / SNOMED CT 1728392861 / Confirmed Family history unknown / SNOMED CT 4425496785 / Confirmed Screening for cardiovascular condition / SNOMED CT 851567107 / Confirmed Enlarged tonsils / SNOMED CT 716465006 / Confirmed Difficulty swallowing / SNOMED CT 82848516 / Confirmed Constipation / SNOMED CT 92031511 / Confirmed after GB removed Hemolytic anemia / SNOMED CT 706797017 / Confirmed Non-smoker / SNOMED CT 76691171 / Confirmed Stomal ulcer / SNOMED CT 3768700164 / Confirmed Splenomegaly / SNOMED CT 47010352 / Confirmed Hospital discharge follow-up / SNOMED CT 3745718627 / Confirmed Hereditary spherocytosis / SNOMED CT 14127884 / Confirmed Testicle lump / SNOMED CT 679068071 / Confirmed Cervical radiculopathy / SNOMED CT 043884344 / Confirmed Cervical spondylosis / SNOMED CT 3253142840 / Confirmed Muscle spasms of neck / SNOMED CT 9160080885 / Confirmed Insomnia / SNOMED CT 137491139 / Confirmed Medial epicondylitis / SNOMED CT 67550934 / Confirmed Anxiety / SNOMED CT 27563228 / Confirmed PTSD (post-traumatic stress disorder) / SNOMED CT 60686180 / Confirmed Hearing deficit / SNOMED CT 37416841 / Confirmed Lower back pain / SNOMED CT 947398066 / Confirmed History of neck pain / SNOMED CT 6416640237 / Confirmed Resolved: Cholelithiasis / SNOMED CT 480175806 2009 Resolved: Sleep apnea / SNOMED CT 290123828 Canceled: Well adult exam / SNOMED CT 949164771 Canceled: Sore throat / SNOMED CT 094411948 Canceled: Pain in the abdomen / SNOMED CT 29587696 Canceled: Fever / SNOMED CT 9919676657 Objective Vital Signs 08/04/2022 15:00 EST Peripheral [...] of the upper extremities Integumentary: Warm, Dry, [place]. Neurologic: Alert, Oriented. Psychiatric: Cooperative, Appropriate mood [...] an image (more content not included)... [facility] Comment on above: Result Comment: Elec tronically Signed By: Elen AZEVEDO, Leah\.br\Date and Time Signed: 08/04/22 15:14 EST\.br\Electronically Co-Signed By: Jenifer BOGGS, Sen Dodson\.br\Date and Time Co-Signed: 08/08/22 12:31 EST Office/Clinic Note-Physician on 08-04-2022 Office/Clinic Note-Physician [id number]#1.00 CD:127 Normal [facility] Patient Correspondenceon Patient Correspondence [id number]#1.00 CD:127 Normal [facility] Patient History Officeon Patient History Office [id number]#1.00 CD:127 Normal [facility] Coding Summary.on 08-03-2022 Coding Summary. CD:[id number]:[id number] Gh0 bWw+PGhlYWQ+QE7GWAPxS44 xjOZeoJ3VL3sDWA1KFZHYEI WDAP7CAW2stEL7EUnwV6Jum iAv WyagzAZkGS97CXw2EIH3uRg gAJihbY0lfKNxR5f4LpQfQU 40gU07VVorBKUsKsE4JsAzg jsgbWFy L2uhXsDgvSLjEec+PHRhYmx lIHdpZHRoPScxMDAlJyBzdH tpRH1yMu9iJEVxUPWvvDzsm HNlOiBj v7kvHGGkDSyiVP4qqLlrH5H exKP1OHJze2z6Lc69nRB+PH YrZPV2aOwvIUjhy889GvOja 3btAIZ5 mFVeEDuxIXZ4U18tg1Y3HHF dIYEsLPU2jOG2qE7mmNzzag vpY8LfbBXiRnN0NRL8xRJtp I3opSvb vrtboF2aJds+O69RNE6LIHA PTU4TNik0T3RrAebtnXM+PC 36JRZjPH84sEZyaVLuo5qez Yr2XcDg UZUxYMN6pZuhWOzyc0HzNJL cP51ugGDjp2F1QGZkoPgfqM QvHlZjkOZ1lX5rURdgpmcwv 2hvdzsn Xqqri2vdoi33mU72L97rNJn yUZCaZFS4NJLkZHTqxVwsrr 6piP3tMj7+ICosp0mew6zpy Tn2ZaLo HGEotqAutSbsQUJ2q0FbNt4 1O0ZtaPbgr8KiTgn4ef72hM Oau4B0dPO4BDsdZWLauV1hM WxlZnQ6 SKZfZuVvzL33eTXcHGnlKs8 glCjdqQscIU6qFJHaivdaWJ ZbfD7tVXSutHOlyAjaJY9hJ TBpbjtm p864LuJiSTE8CNJqlZMeW1X haO9fEoYgAWQyPMNpS8OspN IaIUfmU564KXddDuJ6LLXkd nVvN3Vn LKDgeRafRtB9w0Y1Uj0Yt7U ddvbdJAE1BTomFFHvYiM3Ml CzFoF3X2MhNhe3ATUuxCqkZ O1tM2Xs CDMnasnucefrwBL2UQAiYXY anM04aERcNKhtFr6lf8F9x3 77NJAnNVBsfV09Cw3gsTsfK TBwdCBU sY6ektopd8uzijhzKqZzOEX aXFp8UNn6TRDhpHjfKqZfQX P6YsO1SKG3mUKzhO4dwAkqu yhuqH1b Oyc+H89hzK0nLQX0KRC8vin hLXVeefWkLB57JW80I4AfJr wvdGFibGU+PGRpdiBzdHlsZ F2qPwVd c1kbr3AwXHlmO3QwMFQqCKl pBrm7VTVjZLY5oIK6lN3mMC ZwTKefj1Y9kTQ0Y7MwonQnx f2gv1mz XGPbZYzkR92nuGCfi6G8IKV liJC2RLDdsDpqYuXzqP01Fo c+RQTcsBxnl2MaSlyzq4xaz 9chpMl7 XuKtFSIclpMatPmgXJL8h3U cFr00B91cJNhdCWOrEXHcAK HaMVUoiRrbuc5saY8kZl8+P GNvbCB3 mAT5xO5cWIQcSpE5KDhzV11 6SkTjrKZjCpvla7yyp2bohL f9XpHkCQEqjrYuhMdgBDK4p 3SaDb07 K16mRJzbWSZgTTGlNPMmEOP wlLjoul9cnU7dSe2+PC9jb2 bftq05hJ77bFJ+QTUjHVM2n WxlPSdw TJPysR0eWGhuRbZ3TSUmXcR veN06nXLjEUkdJj2dcKphtV lbLD2qYAHotpufy806OwCtx 2xkIDEw xPHhIRzuBSV1N88tr1Y9YXQ oNRBqKZO1wCW4yX0exKkzhy ogbGVmdDsgdmVydGljYWwtY WqcN316 IHRvcDsnPlBhdGllbnQgTmF yIZv8M4KtJkg0SHYauCetHD 7hhEEcRGjiZn1xkZmwoQhvW J1hHOMn jgwpd748LvXyb5auEJPxuFU uQRbfWZV0I84xh8L5IQMgJV ZiGGM4nHQ2cJ2tkNsmgvmjj GVmdDsg daEfeJpeVGimMXebZ832JID cwZmsMtHhpkAoXQQdhOZ7JR 42OW80zONcw4Z1kTR0V2QzU GRpbmct qoyqlQA2ILPyFMKorY54Ip9 bsQsxCz6tFHLvUHH3RCZzzE UyO0AljQ2yXbPbGUNcUILwX 3RleHQt BOqsR386PUwuSwK1XDKrpiF oA2HrGSKeoTipDhM7r7F3Ie 9ID9G5TS42GN92lHUfn3H0y HC9O8Ee KOLhrababuzabSK5DPGiANK agU60Jg4wtYvpMx6xDGEoJC M4SUXuzABnB2KyzR7xUgCvW DAwMDAw L0JgmDSuBAswO678VGmqLfJ 0EBRwqnLpX5SiFFSxdRilBb D3i9X3Ze1SQLh5EA18FN91l JEtz9H9 lHT9J4PbTRHpxlwompjocOS 6FCUoJMOclJ20Xx7pyEytTp 9jCNGnCMF1HJNzdTCqP2Qgc D3mEuMh JYBaSUFjC2GwjZJpASabJ82 6FBuoPzI9WYMgxoLvE0OdRP KlhJtmZzI4v7E1Hq5GICBcX F05EUI7 rVW5RU70QR32C6QmLsqdhEL ibGU+PHRhYmxlIHdpZHRoPS ijILEyHdFpfJggED9aCr7iU GVyLWNv eWzmwWTeYhSiu3njWEZpPIn hHO6yrEchH9WhqPT5QWWlu3 k0Ax36I86iD1XybIA+PGNvb JQ1sPE8 dP1vReJbYeW3OGssH024BwV fjBYbEepvv9mbm9rhtVv5Yy R0ZMYeefOupVjaUWU6u7OlH w05W43g IHdpZHRoPSIxNSUiIHZhbGl pll4klH4lUp7+BOUjlRV5zR Y3uN7hSkMkYfJ5IPobU748U nRvcCIv Apuvx5iph3ujqVq7MyIpUUC klsPmbIwqEFY6x3HwSl85Y4 LbcPtwn1VrIqa6ql18iPQrq 6O1zHH8 F5GrQZHsxknzdDCroZniUE7 gLOKdltzpWENhlJ4nPJRvY0 p3UhLpScQ4EJesR3TpjjX5H DEwcHQg CJhkODY3M68aa8Y1CWFvPQG lEBL4bKR8rW9wlEbrtmizfO VmdDsgdmVydGljYWwtYWxpZ 246IHRv bQixIVFcmZ2cERAbvCIsmLa dER5uBZFlcudpCetITodkUO eLSaUGBP83LX64eTCky6U5t WF4R6Kv TXHtewsjeamwsGU1KLHdVUX qbK56mEVnDDlqFa3xb6R7b0 66KHQeNTVvvA84Wu6krPvkA TBwdCBU lX6zgtpuc2fuhwhtRkRbXUV mRWe3HNn9ZJIqgPgpEuUgJD E8RzS0XWX5aFWunH7euIqpw jlcpR4h Oyc+RQNxJpDcAMb5VHnpmJG +TELhBBY0hKmbWVvhCKYwxG 9qFBEhG4v3NiOnTjX4FAtdV 3BhZGRp gfuyRd42lO5nVhYyVnG7JUj nD0OoygA1VXUgwRDkXCfyEV E8U09tg7D9TYVzLBJuNTR8q QB8dT8x bGlnbjogbGVmdDsgdmVydGl nFVkyEFqaE555XPZjnDcnVi E3PMkkEQDfJA48AD90gARwg 3S0yXY9 V5PeJTOwznnmjiuznJE4FKY eDBGltV51iRDwCVqyTu2rq9 L7b571MRHhFHVrnI30Bq6rf DogMTBw uBOUyU1jrnnnb4sawtrwFuO cRAYqVXs1JRl9KMWtvMudDz PbTTQ7AkQ4VPF3yESajS4og Glnbjog gK0nGnk+TWFsZTwvdGQ+PHR cQJM8xRnbBWoyOJObvM6dYQ FwU6r2IiOnNoJ5SPthW7MhR GRpbmct Am40tX4aJtAgDqG2LPrsT9L chkM6RWFadYWcSXelFRR8M7 6cr2K9SNMcFBYnQOJ4qGO6w T7qqBnm bjogbGVmdDsgdmVydGljYWw vPNrfM828DFUwkDhyOr24vI KqeOquobN5T1EpIgrxiUC+P T80SNQq IV39fSUvaURob4uzmNl2McL uYDLvPXL6vJvhWCtmf8YaQQ NeQ19ttMByl1P3JWFkxYgng HNlOyBl mDK9qI8kRHuhbpngj4igsgr qSlynp9loap00jZ54X83vAW dpZHRoPSIzMCUiIHZhbGlnb e8jlC5t Ii8+WBZugRD6tGJ3kN1mDqR jNyP0AGlbU150GeRwxEEpZk evg8etd9vooEm4IjDgMHBze mFsaWdu LBK5i5SrXp15W34bSXimHGM gHNQeGAKuFCBhjRbhbd7mmN 9wIi8+VW2ov9ktsb11kE75j HI+PHRk ESA5iXfvXIwxDCSqtK1uBTv aAgS6UWOdBjQfhS25dIJyOF oeHr6kzPknmTiwQB4yHTHnt ydtx893 LvBru0bkBIAvnCEcAAriHRC 9K99wi2K2SBKrBXTyQSB8sG L0hF0tqNxvhtjnxQWowNruf mVydGlj UEdmDAssR218MVPrfQngHjJ qbVUmB4kkvwJZZU9bIbuyjU Q+KHVgCGA5vKkpKYgmYTRmp T0aXGTf G1w0KgTbMrN4XHqvS3AfoqJ 1SWQicMRjEWHloXSWsV6ram rdt6qavpquNxLlOEWpKSm8A Pr3NKQh uHabWaBfZJM8VxM2DKA3xXT zhA6weSxmrdsdwN8pXrx+Rk lOOjwvdGQ+AUIrKQH1cXtxE SdwYWRk jI8lSGXrZ2k6ZxPvVuW3IEd gE4QldqE1TWTykQRnXDSfpH INyO6xsdurc8lugwbuLsLsP DAwMDt0 BHz5FZGpxKnrOpOsRCO5QhX 9YLW9vRWgfV6vmOfxirjobF 9wOyc+TVJOOjwvdGQ+PHRkI PU6hMig GKsbYAFkyB9wRUHtG7m4OkU kHbR2OXazW9QrogY8HWUpmD JlVBZnuZHGtP7jvimlo1hsi jogIzAw VDMjIMf2HKp8CZLveCixKnN jBGI4YiE1NCI3bADshK5xbD siddlqlP2mOez+VVV4GOB5C O65VX87 P1KoZtguoPCwpIZ+PHRhYmx lIHdpZHRoPScxMDAlJyBzdH vzIA5cEb2lPWXyTJOgcTftx HNlOiBj b2xs (more content not included)... [facility] XR Shoulder Complete Righton 07-29-2022 XR Shoulder [...] findings. FINAL REPORT Dictated: 07/29/2022 10:19 am Leborn Almaraz MD Signed (Electronic Signature): 07/29/2022 10:19 am Signed by: Lebron Almaraz MD Transcribed by: MARY Technologist: JASON [facility] Consent for Treatmenton 07-19 Consent for Treatment [id number]#1.00C D:127 [facility] Physician Orderon 07-28-2022 Physician Order [id number]#1.00C D:127 [facility] Physician Orderon 07-26-2022 Physician Order [id number]#1.00 CD:127 Normal [facility] Insurance Correspondence Off iceon 07-21-2022 Insurance Correspondence Office [id number]#2.00C D:127 Normal [facility] Coding Summary.on 07-07-2022 Coding Summary. CD:[id number] Gh0 bWw+PGhlYWQ+CW6GLWIiR07 lkJIydH9QY6sLKM9UGKMIRR GXKA5NMW3qyOK0OBhyW4Uxb iAv VmmcbCEsVV45LRt7UEM3yYd pUVeniT1vwDKlN5f6PhTjFI 62jS35WUltFIVjTeG9MjCrt jsgbWFy Y9ttTtLvgCEzYsd+PHRhYmx lIHdpZHRoPScxMDAlJyBzdH ebZB2aLw2sSMFoLCWinEtxg HNlOiBj g3jyOJHjMVhlFK1muPaxN2V doJT7AULai0p1Td32yWW+PH QgEIS8dHrrWWbxv103JaDiw 3xiWHZ9 wULzCMmrGBC8Z55oa1G3UQW cEZYaHQF6oFR6eI2rfDllvx iqB7IolPVzYeM7AQB1uUWno H4slAvp oyisdT6eNdk+M44XCZ5GMCI PSE5YJch0P3NjEfmoyPY+PC 64WSTvZN63kQFmjMBul9irs Vf5RcGc RENpEYV9jGfiQCkxz4CrPXT fK41nnNWvh9B9ATCgiZfzpK QqTqWdmLV6mF8nEAvyihjhb 2hvdzsn Gklop3aykn89fD93R63pJDd lGGFwXVH0SESeLOCyfFbuln 3fuS9lNp0+MQcwc1hth0qte Jt9ZwSm JQRqamKahQfcWIM2t1LlBb3 7R7LcrOwlu2IeZio8av06hI Vcz1N4uLM8HKwyIPAgkE3kF WxlZnQ6 DNZsGpYhtN96aFMuGPddAy6 biPxztHmrSN0wDCWnodpvWS DujQ9rBUBofRFmkQczYD2nB TBpbjtm c013TvJhQZF3REArsZOcN6Y efW0fFrSvQWAaFMJwT6EjjA XxYDvtE524JSmbJdN2MWIzd lWlY9Jr DVWqcPgsPlQ7h8V4Do1Ez8J zrnfbSNH6ZZmqDLTeNaCtTu SuDjC3M5ChMol3LGHobFqwX B7nV5Nv DQMkhpxlgclrnZF9HCNcGDS hhG70mUViQDzpVt8wx4J6e8 63UKOdIXHcqT98Bo1juOllU TBwdCBU yS4foyuoi6svuormQlNeYNN rESa9HXm4UAJkmCigRfQpLJ N6TuU7AAW9xVLcjP0vtAmid vsriQ0r Oyc+B49deY7cIOV0ULI6idv qQNQileLuPD94RD24F0ZcGv wvdGFibGU+PGRpdiBzdHlsZ U5rHsMw y0yym2BnTUkpU0GwTQBnRGv tEea8OKLyYVH6vSZ9vO6gOP RzRAtiu4L3xPU2Z5ZfysTcr r9jc4wf BVXxJOmrX88nrNEym4H4ERU apJF7GSYdsPkpQnMhcO15Gu c+GYDzkWskw1LjYjien5ggf 6mjpXd3 OwSbELGcjpJndAmqEYW4e2B mIq58O96cMFdlEWFaCAGnSC SdAYXlqKtemv8huM8oTt4+P GNvbCB3 gYI2xM3eTADrMvK2YXggV94 1EjLyoFYeNghua2sbz0fpqC f2PbOzRHXvkcDefAslDGC3h 7XwEu75 O49aFXmwLSDuDNIhXRCeCHO kbQraym7awB6kMx9+PC9jb2 owts16dF19fRU+GYUxXVO8x WxlPSdw IYHkuP7lFYdnVvR5MZKkDxY pdZ19lVXoWAwbEh9olYkovA waHS6zZHMylwebv004VfBhl 2xkIDEw mFYiQSgxNDB5N08mb9C6UOD wMYRpJLD0yDT7mI8lqSmsrr ogbGVmdDsgdmVydGljYWwtY HprD539 IHRvcDsnPlBhdGllbnQgTmF kYYm7D7SbDtu8QKDnrAbyPL 1nsLXzNHycMt9qbPonlShmE R4eYTCf gjmxc382ScHdv5siYWMvdAI nNKmnKRP7L57tr9X5PMRnMQ KoXOG9fOD9gG6crLlrchnlc GVmdDsg yzHiiTyaVJyrVUqmN819BVA hiNbbHuZimuNuUNOesKI9AI 93VY59dOAjq3V2nND0M8FoT GRpbmct asiwyDV2HDDgXUCxlL92Bo4 ahScbCs4mRBGjMGQ5UBSxiO QbF9FsoQ2iYjBwMYFaQGJmU 3RleHQt LUwtM009ENwfNyF4QRZqnnE zR8ObBYDxeZbpYiU8q4C4Mt 2AL8O6TU19YV08qABby5O0u NF2G7Dt HHAcxvduuhinmML9OAYzTIM ilD10Ug7qgMpwOt0xENJjFO F0RSDmyLUnK7UcxZ2xBeXfB DAwMDAw A6XuoSUlWYbnD817QZirZxE 0ZBPlvjBxJ3ZtWZBubUyrEl S0f3K4Ih0EWGo9MD44UH15c BRmb7L9 yCB3M3YuEJAzuefviascuJU 5FSQhQTWgrA40Vl7qqNuyPj 2gMXYyVLU0JCWdvVNmD9Zsh E6oNwDp FPQtSTBqA8BirSBtGGsaM48 4GDiqVlL2VBVgbwBwL7JdGY IpiSidUkL2q1H4Pa5VCFTfD T22IHG9 wGE7OE25EG41K9ZcPobvzCX ibGU+PHRhYmxlIHdpZHRoPS swCQQzYoCmqXkcRP1fLt4vB GVyLWNv kYfeeLRmBzGho0wnIIXpOMp yLK1zxQvcB4YogVD4MVXfn9 f9Mh81L50pD3QjbTM+PGNvb CV2tND0 fZ6dWbYhEuO1TQmdR720OcQ vgZBcPrdlv1zgj3uryTd5Hz P4FWQyjtEmlGeaBJK8s1TcH m74G95r IHdpZHRoPSIxNSUiIHZhbGl ugx0nzK7wXu0+RJTaqAF1mU O7kD6oZaPkWmG7JTmiY706E nRvcCIv Jmmew8cws1jdjDr5FjWlKRT cxkPzrCgpFKQ1e0BiXq93Z7 FbiPrfn6MdUmg2gu70oMHdx 9D7aJD4 C0IvWVCwhmnrfGTphLzoTE6 hXRRbrduzRSJqfT0kLNZwR1 e3GgXjNmE9SUouH5DimbO8U DEwcHQg YNmrGBR8F96xk3K6QLWgOAJ kUOM6vNO7oU8npGhygmoeyS VmdDsgdmVydGljYWwtYWxpZ 246IHRv lMluRKEtsZ7bTDHrzPAwvTa cXN9cUJWvqexzCtpGWpdaSS oFAmPWRO28YG01dQUzx7Z8p WI1Y1Sd ECQkfahumvwyzXJ0WSRwGMR yuG94pWAcGUsoWd1uq9U0v7 68QJYhNAWtvR93Ri3szWbjP TBwdCBU jC5jyagao4fcmmzoUpRfSDO pOEn8PDu8IKBntBfnLdIpWQ Y9UpA7YOA3qJRxtN5leYifk lpzbR0j Oyc+DDThGvYjTRy7WJulhQR +RNHxOGH7sJccESgbTSXutB 1hILPnP3z5IxOeQhA9EOwvO 3BhZGRp gsbiUa35pU9oJqMjTeU4HHt lM0YyzgQ7LYJviRToNHnvHC Z3P37md2R7AGFyUOXbZQN0y GP9oJ0m bGlnbjogbGVmdDsgdmVydGl uWMnqJEoxP717ABAthBdbLk Y8AEsdYWWiQU33AJ28vQWcn 8E1tJB2 H2CgEBJtvjqlgcppcZE6YOV rRWUonD16aFUgJElpFx8pb0 O1n247MSWwMTTooY03Mi6az DogMTBw gEDFpH4vxziro0igujagPpD wYURrECc8WRq7KVQpcInwMc VnHBD6JgO9WBS8nAUzmY8gi Glnbjog aR8jJze+TWFsZTwvdGQ+PHR bIKE4uUjsOBujWGXznT1gAZ WnU2h8QwLgDeG2ONmoH8SjJ GRpbmct Ge69kZ4fVpMuCuT9UPhxE6G asfF4ZFAlbMOdYWwoNBA7X8 8ac8Y3AHYaKYRfCEY6yZD7q P8qoDet bjogbGVmdDsgdmVydGljYWw aLTjdA505JPQpzHjkGzEelP 4gTWFuYWdlbWVudDwvdGQ+P O75zq51 L0GiStzyKcj5MGCrHNT1wVZ 2gB0fGXLrESqce7C7jJI3I1 VdkoGhva9uw9jfMSXjAOwwW 29sbGFw i4U2OMOrqXC4FFVxkIqsPhO cwL29Xcc+JPXfxXnfq2TeGx pas6bih2chwDg6RqSkLRVlj mFsaWdu OKS4p8AcLc60G65sVVwfLZD qBKKkAFVfJVLzbPpobw1lyC 9wIi8+EMHxtYU6mWP2bK4uY jAlIiB2 IFujR405KzSwxNKtOoaot6o ik5elxQl0AqOjKGAuwjLwjH fsMTO3l6TpVf31E4SmyGbew 8OeDnd3 iw94wLVpm6M1yHK8G2DtPXA yxvpfiTVzmOrvPL0dWFYnnx kmXAGakD6aZXYiF1o5MpYnH pI7GOqg L0ZmidW9JBPglDQwFXPdeTX IiO2knujtl3skmrccPzSwQI JqKPx0CDz5ZJHktBmnEyXiJ ZD1ZcZ4 WWR9yCGqcE3iuCequeqksV8 wOyc+GEo4v7pztTAuXM9nnF A2VZ13TK94pDIkg4P1iCK8Y 3BhZGRp rpkxmctqmPU9AODeONWzpM0 3Mt8ksLlxLc8sSINbXCU0RF PdeLSfN0GhvL6uVqLmYEVvG YKyL8Xv tWOwFNzxZ380EGxcIjB7GLK carSlM3BmYJNgjOnmNoS1a0 Q6Up8ZBE63XR17KL64sUSrc 9T0aXC5 X3JdGUXwazayupwufKL4WLK yZNOliU13Xk7ecBemDn4dWE IqFET8JYFdnGWuG0EofF4hO iAjMDAw UCZaT6YunMFpVLbcI772FUc bBuU9SZPavzSuU3AsLZBibX ijHuP1x8C3Bl8NCj53LE20Q P05iFMw i2I3aGV6H4PpRWJetsnkjku cfRC0LVGaSAXauB02If3lqL elRv7pKGAxNCX0FZRbxRQjL 5CdgO9g MiWtISFhMPXgV5FozVQiRVz cI504STtbXsA0OGOhjiUdC7 EjHOUxmXsjGqT2f3U6Xn0QP Xllcjo8 I8UcOhrkgOD+QC24HNQzSN3 1lQBynDXry0aenEj6BjAeAQ ZvNZH4mZgoPAppf1UeGKCyM 29sbGFw c2U6 (more content not included)... [facility] Consent for Treatmenton 06-18 Consent for Treatment [id number]#1.00 CD:127 Normal [facility] Consultation Noteon 07-04-19 23 Consultation Note Patient: [...] in the morning it is better. Previous memory care program director did not help. Previous physical therapy did not help. Anti-inflammatory medications do not help. Health Status Allergies: Allergic Reactions (Selected) Moderate Dilaudid- Hives. Severity Not Documented Morphine- Anaphylaxis. OxyCODONE- Nausea., Allergies (3) Active Reaction Dilaudid Hives morphine anaphylaxis oxyCODONE Nausea Current medications: (Selected) Prescriptions Prescribed Lexapro 20 mg Tab: 20 mg = 1 tab(s), Oral, Daily, # 30 tab(s), Refills(s) 1, Pharmacy: [facility]acy #[id number], 178, cm, 04/28/22 15:31:00 EST, Height/Length Dosing, 79.7, kg, 04/28/22 15:31:00 EST, Weight Dosing Vistaril 25 mg Cap: 25 mg = 1 cap(s), Oral, TID, PRN for anxiety, # 40 cap(s), Refills(s) 2, Pharmacy: [facility]/pharmacy #[id number], 178, cm, 04/28/22 15:31:00 EST, Height/Length Dosing, 79.7, kg, 04/28/22 15:31:00 EST, Weight Dosing cyclobenzaprine 10 mg Tab: 10 mg = 1 tab(s), Oral, TID, PRN for spasm, # 30 tab(s), Refills(s) 0, Pharmacy: [facility]/pharmacy #[id number], 178, cm, 03/28/22 14:15:00 EDT, Height/Length Dosing, 83.1, kg, 03/28/22 14:15:00 EDT, Weight Dosing phenylephrine 0.25% rectal gel: 1 evelyn, Topical, Daily for itching, 54 gram, Refill(s) 0, [facility]/pharmacy #[id number], 180, cm, 06/06/22 15:30:00 EST, Height/Length Dosing, 77, kg, 06/06/22 15:30:00 EST, Weight Dosing Documented Medications Documented acetaminophen: 1,000 mg, Oral, TID, PRN as needed for pain, Refills(s) 0 Problem list: All Problems Former smoker / SNOMED CT 26380571 / Confirmed BMI 23.0-23.9, adult / SNOMED CT 6837633828 / Confirmed Family history unknown / SNOMED CT 6239800112 / Confirmed Screening for cardiovascular condition / SNOMED CT 031431737 / Confirmed Enlarged tonsils / SNOMED CT 103820781 / Confirmed Difficulty swallowing / SNOMED CT 61655570 / Confirmed Constipation / SNOMED CT 75798295 / Confirmed after GB removed 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 Non-smoker / SNOMED CT 46386136 / Confirmed Stomal ulcer / SNOMED CT 9034023351 / Confirmed Splenomegaly / SNOMED CT 63266289 / Confirmed Hospital discharge follow-up / SNOMED CT 5790149699 / Confirmed Hereditary spherocytosis / SNOMED CT 92664301 / Confirmed Testicle lump / SNOMED CT 617803686 / Confirmed Cervical radiculopathy / SNOMED CT 574915964 / Confirmed Cervical spondylosis / SNOMED CT 6235635643 / Confirmed Muscle spasms of neck / SNOMED CT 8943397910 / Confirmed Insomnia / SNOMED CT 629073334 / Confirmed Medial epicondylitis / SNOMED CT 03956105 / Confirmed Anxiety / SNOMED CT 81503957 / Confirmed PTSD (post-traumatic stress disorder) / SNOMED CT 60194339 / Confirmed Hearing deficit / SNOMED CT 81523651 / Confirmed Lower back pain / SNOMED CT 772802746 / Confirmed History of neck pain / SNOMED CT 6701116548 / Confirmed Resolved: Cholelithiasis / SNOMED CT 657347300 2009 Resolved: Sleep apnea / SNOMED CT 431183839 Canceled: Well adult exam / SNOMED CT 633890101 Canceled: Sore throat / SNOMED CT 191834368 Canceled: Pain in the abdomen / SNOMED CT 96326393 Canceled: Fever / SNOMED CT 3284374489 Objective Vital Signs 07/04/2022 15:31 EST Peripheral [...] Difficulty with overhead activity Integumentary: Warm, Dry, [place]. Injection site well-healed Neurologic: Alert, Oriented. Psychiatric: Cooperative, Appropri (more content not included)... [facility] Comment on above: Result Comment: Elec tronically Signed By: Leah Myrick PA-C\.br\Date and Time Signed: 07/04/22 15:50 EST\.br\Electronically Co-Signed By: Jenifer BOGGS, Sen Dodson\.br\Date and Time Co-Signed: 07/11/22 11:12 EST Legal Correspondence Officeo n 07-04-2022 Legal Correspondence Office [id number]#1.00 CD:127 [facility] Office/Clinic Note-Physician on 07-04-2022 Office/Clinic Note-Physician [id number]#1.00 CD:127 [facility] Patient Correspondenceon Patient Correspondence [id number]#1.00 CD:127 [facility] Patient Correspondence [id number]#1.00 CD:127 [facility] Patient Correspondence [id number]#1.00 CD:127 [facility] Patient History Officeon Patient History Office [id number]#1.00 CD:127 [facility] Coding Summary.on 06-20-2022 Coding Summary. CD:[id number] Gh0 bWw+PGhlYWQ+OD6SMIEpN25 gmLJmzC7UR1lNXK5ANLIIAA FQDS8KMJ0hzXH6VHjgY9Nyx iAv MlldcZBlDR27SIt6JHD0zUv pXSblkF6lzLAcR6g1IgPzJF 39zZ74TGyiSZJbTmO2HfKab jsgbWFy J0peQlUojGJcWjs+PHRhYmx lIHdpZHRoPScxMDAlJyBzdH suSI7fMv4oWOZpFDJzxKxjk HNlOiBj m9rnACXhXQfnPF8mrMlpJ2R xuPW4BRUwp5m5Dr32zQD+PH RcDWB7uFxoGIuit380JzVyc 5tyPPW0 oPUcMXykMJM8Y89si9R2MTR gUGQiQNB4vGH0vO8shJkqgv vfT5CzlYGuAaD5LUB2cFKas Z6kuAfg vzzolX6gQya+J29KOY3ORNN MBV2NEyp0G1DqDlyifYJ+PC 94SRMzXW77gZZyuUEer7ofv Do8BuEt EPFiAPT5sRjqTKncq6YlPXU tD44lrYUyy0Z8BTPdpRnamM OlEcIoiXQ9dX5vUVpjsyuvu 2hvdzsn Yjkun5ljwp84cU55D14sYIu dBKDeRXZ0VPXpSVScgOsaqk 6gqW3mRb9+EDlrh1gcv4wsv Jy2FfLb GVEaryKxaWmnJJA7b2OtIi7 6B3XvzPkbo8QrStv2pg99jN Tkv2H8lVD4JTukYGZihK6rL WxlZnQ6 IARjSjEciO89uTSzMLtdFr5 ifVikpVttZY5bTTWrxgfwVM ImzB5sLGBgbZUskErvYV7dI TBpbjtm n405DrIuDCM0WZOssPRxO9H htQ0eZaDyCXBtGGTlP1GgpH WwXCkjU024JZxgEnM4FLUon mSzI0Lr EMOctYkmAxL6v9I2Wx3Zr7W mqlddFLN7SZuqKVMeYoOuOz GzJeC5M9ZaLky8GKMrcYlcA M9aF4Wo SGRccmyflyaaxDG1DYFuUAG mdC40wFNrTAjbEo6hn8X2r3 01VGMjMZSkyI03Xb4rlAgwU TBwdCBU rA8emwfhw0phsrauPnRvLSC mGKu8THk8PYZesXqqLjGzNM P5PuG9ZBO8cNIjdF8srRrzl fbjxZ0c Oyc+Z89yiP2nTBN9ZOH6cuf gVZPdgyAdGO81FM09X7LlNm wvdGFibGU+PGRpdiBzdHlsZ E5pRnHk n9pbr9XvSYucP6GzCFPkPOt qEvl6PMDzNQB4dRL5lD1sAF RaXWmwx5K4qFE8R8ZqamQse h4jz7mf RVVaSRvxX87yzCCaa5K7CQD sxPH3MIHheBrzQhFzyZ51Ky c+TGCedYkod8ByVfbum2ptf 7gjrMl1 AaPhDIOqguMonOkfEXE6v2V oQd42D22hBPfvDIKbBFZmJK EhVXWclVlyog3niJ1aZh9+P GNvbCB3 eOB8aW4pHZEcDiP0UXfmJ26 4GeKjbYCdIixwo0kbx4bnhE s4BaDfBCNotgMvxWgkQRA2g 9UyWf02 V99dRQrlBIEdJVRxBCTvXQH kmPzbiz2myO9gNl2+PC9jb2 gdun89pW17eVY+KCOaVHB2k WxlPSdw ZAZzmJ4wDJneAyV5DJQdQjM mrI61mENbUEbxJm1ygYywuC ojZP8qIDUjvqzcw690SpBja 2xkIDEw cSIyXWhtVFD7C29ks0S8XAJ xYNTfMER3wCW1eI1rlGsftp ogbGVmdDsgdmVydGljYWwtY TssL413 IHRvcDsnPlBhdGllbnQgTmF cZYm8Y4FsHqs4KWOvyDflVY 0emHYpQWzuUm4yhReqyFxvC A1uRKVd cmshe564StZxp1jkXPPriLR cDDmrNPS0J82vl9Z5XWUoAK NoOBQ8oPD3mK2wiXzdlgiea GVmdDsg fgQwzBzkXMgyTOqhR650EVQ dwGavJqRmziXfFUUcdJW7ZE 13SX76sQEys3X6lCG4U2HmS GRpbmct tvdcsAL8LGDcKZQxfW59Ga3 hnBbsEg8rLXKrBWK2STXkeH OuE7EqxL5mCcHfJAZzVCGaN 3RleHQt XFdzU998WSdeOqM8FLWsqiE sZ4PtBJCopHiyVbY5j9Q7Nt 0NJ0U5MW88ST96xUAau5E0h FE1E2Vt MXTmbfrnfiosqQW3ZYVcQVJ quK45Fi7eqEbpIr2gTIQfYK S6AFDbaHLjL2CwiE5eXaMsJ DAwMDAw J4QutJYbTKjqD737CCcnAuV 0RHUoioKkU6FmJUJmmWicVi J7e2Y9Ik1OODl0PF96RB29b ZTan8Q6 zGL9C4KcSFIdlkurwutzeTT 8VWIdUVAuyR82Em5arXqlEl 8bLTMzLCQ4WSUvrBToU2Hvp X2sHoCj SLTgDSJvK9VzkAAnKXvlU11 0TQxpUfY0ANAhvnQgJ3JvKV TnzLfoNyD5r3D7Ff1FFYRoX M60CFZ8 rRJ1AS09IZ99J9EbYslkaAO ibGU+PHRhYmxlIHdpZHRoPS qqRNZsDwAvrJhpSR9mDo7rO GVyLWNv gWeofFZcRgNnn5taFACuMAz fDX5laJwmS1MksGZ5VZBcn3 u2Dk76B79cW0AonFL+PGNvb CC7mRY5 tP8mPnBhJaX8FRjiJ630StR mxSCeOaheb5jey8xpxFh9Ob V8LPOeflPgmRbaGJQ1l9RuY i28O59g IHdpZHRoPSIxNSUiIHZhbGl bnz7rwD2yPy8+HDAtqUT8xZ T7lA2eVbZvPsT7EUwnX139H nRvcCIv Mfzlb8liv1hzsLp8FmGdRYG wikLueAznWNP6t5IzUh39I8 GenPrnu9TmUma2dz99sLMnr 5T1zYC6 F3TvIEBoutijqEMjrNllLL0 aQURlzapoHWSxgS2uYKRzM1 o8LfKxHvA6WPaiC4ThaeT3G DEwcHQg OMngDYN9D30rq9N7YSHyJEV oSUA9lFO0aQ3tlMtcwolezF VmdDsgdmVydGljYWwtYWxpZ 246IHRv dFbwRVOzeP3qYLMhhMPckJd sMA2kLIPzjaolZktOLhorNK hGSwFXRR23WC32bZVeu5T9e EH9I4Ba POAhnfvpnyjmsET4GAMnCUJ whX53pYZkMArtNj6hf6V1m9 66SGTsWNNmiE71Zn3ivOeoU TBwdCBU hW9fgmjtm3mzdvukPkYsDZX oEUb3UMy2HKRptHyvJcRoVG V6SqM1TBP4fPZkxX1boTlrj appyD6s Oyc+ITWdHkVqOCa4QAivqNW +VWXwXOX4vDzoVSboUWKswP 1kOSXjJ0s2GrIjUtJ6KQibW 3BhZGRp esjcYq92xW6fJaZeMoB3KHo hI7YifyL9VRHofONxJWnwVB I5V44hy8E6ONWcUVIuJTB5z AM4wF1w bGlnbjogbGVmdDsgdmVydGl cAUvoOEpmB189YZLinZtjVn Y8TTilTRJaAA59FF76nLLdu 0C3sZT6 H9ErOGHnyntifuxidJZ6JNB zEVNvrO90xYEzAMasIb3nk2 V5d977RDDsWEMpyO89Vn7vy DogMTBw bXLXkD5upqbro0hfdykeOzL nAECyJHe8AVh7IPXlrFxxWz QwFQM2ImI8NOL3tZSpaS9aa Glnbjog xA8jJde+TWFsZTwvdGQ+PHR mHIY3bNxmLFhdVDTagD6hWT OiV7c3AaEwKxJ4VIrbG3ZjG GRpbmct Go04mW2yIvWpAkD3NWznM0Z nptG3RVJmrKIsTYzrDNJ2D1 0ov7V5YMXzCJUgVUP2mNR1w B5njUdb bjogbGVmdDsgdmVydGljYWw yHEhkM332MPLfhHrxWjBbqQ 4gTWFuYWdlbWVudDwvdGQ+P D92az35 W1KiNkceCun2NPYuFVE5nIO 4gL9wMXViQXwtc1N0sZP2T9 BncbKstn3ga8ywDFJbRRcmC 29sbGFw v7P8RYPrgXM1VSFkeQngUqS jzR93Ids+KSMyuUcgb3MwZe cuo4ufw7gfzWn9HkKqETSwp mFsaWdu JPC4u1WyHj25T88qRExlOIU vNAVsTBDnPCFyjQocla6uuN 9wIi8+YXRjtJH6bQP7cP8oN jAlIiB2 ZXpzT334DgLttUGxCrtty0q lb6whpYa2LqPpPIPpxpJjiK bfQEZ8u9GsSv67T0PohWyyj 7KrVhi3 hq06zHUbs4C7bQR9L8InBRQ ztxqziQKslQnzLY7gEAHcvm hgBANnyJ8hSHZvQ3z0VvYnS fC3IEwh Q6CjprT0QOQffLZsSGYiqUS DgY0luvebq9wwppuqHhKtUZ IgZXe3PQh2XLCfkVyoEuMdK XC7GlF3 COZ0qADigV8aeNsoxhliuZ3 wOyc+BZm7a8uvaJMrHD3fzY H5ZW74YN23qIVmw6Z5hLO6V 3BhZGRp jlvjqobxeHZ7RFXbZNDicO1 5Ti1xgIsiMd2bKEWaNXJ9VY AbwLEyV2FpiG8zVxNcAQCvA KOcI7On eEJsUPvvC106HBmuPhD3CIT sbzQuT7OyFJZapBkbGyI0y4 S8Zu7XVL35OB74TO89wWJef 4Y6aHI4 B2EvBPJddbbbvcwfaBW8NZP oCSFrhS86Ua8djBebJc3lOI MgVEA4ADWcuPWzG7JxqL3oQ iAjMDAw ERWxV6AyhIVgAFsdK321ZOi uWwT3SDHyeqTjX7OrKCRfxY puDlV6x5Q0Up7GMb03LV10M C37wTBz g2E5iLH0M0DwDBTltsycixp sfHV3VVHzAGBqoM51Ef0afW wgYc7yQJQhENQ5SVPjdZIrO 0VjfH9s LxReGTBxCDNfB5DmkSUeQTs gF770HLrxKmC1XMCxehGrV4 KjDSXmoYynXoI2f7A8Az3VF Xllcjo8 R3YcAwrrnVP+JC28BVWiAX3 2mMFkuCQki9fxbOi6JwUdQT BxUAL7mPdrVZqas1EcBLImU 29sbGFw c2U6 (more content not included)... [facility] Operative Reporton 3 Operative Report Patient: [...] injection procedure Physical Exam: vital signs. [facility] Comment on above: Result Comment: Elec tronically Signed By: Sen Burgess MD\.br\Date and Time Signed: 06/20/22 13:29 EST Consultation Noteon 06-14-20 Consultation Note [id number]#1.00C D:127 [facility] Consent for Procedure/Surger yon 06-13-2022 Consent for Procedure/Surgery [id number]#1.00 CD:127 [facility] Consent for Treatmenton 05-19 Consent for Treatment [id number]#1.00C D:127 [facility] Discharge Instructionson Discharge Instructions [id number]#1.00 CD:127 [facility] IntraOperative Documentson 1 08-14-2021 IntraOperative Documents [id number]#1.00 CD:127 [facility] Main OR Intraoperative Recor don 06-13-2022 Main OR Intraoperative Record IntraOp Document Type FTPM Summary Primary Physician: Sen Burgess MD Finalized Date/Time: 06/13/22 15:47:06 Pt. Name: CHRISTIANO ZHENG Flavio LuoB./Sex: 1995 Male Med Rec #: [id number] Physician: Sen Burgess MD Financial #: [id number] Pt. Type: P Room/Bed: / Admit/Disch: 06/13/22 [...] Performed Surgeon - Primary Scrub - Primary Hot Baller - Primary Time In 06/13/22 14:49:00 06/13/22 14:49:00 06/13/22 14:49:00 Time Out 06/13/22 14:56:00 06/13/22 14:56:00 06/13/22 14:56:00 Procedure CERVICAL EPIDURAL CERVICAL EPIDURAL CERVICAL EPIDURAL STEROID INJECTION(.) STEROID INJECTION(.) STEROID INJECTION(.) Comments Ava-student Last Modified By: Suzan Louie RN 06/13/22 Suzan Louie RN 06/13/22 Suzan Louie RN 06/13/22 15:46:55 15:46:55 15:46:55 Entry 4 Case Attendee Gwyn Caba Role Performed Rn Hematology Time In 06/13/22 14:49:00 Time Out 06/13/22 [...] Myers Given Participants RN, Jenifer Oropeza MD, Joshua D, Hargrove, Bryce, Gwyn Caba Time Out Complete 06/13/22 14:50:00 [...] and tissue Entry 1 Skin Integrity Intact, [place], Warm, and Skin Abnormality No Dry Outcomes [...] The haily (more content not included)... [facility] Main OR Preoperative Recordo n 06-13-2022 Main OR Preoperative Record Holding Area Document Type FTPM Summary Primary Physician: Sen Burgess MD Finalized Date/Time: 06/13/22 14:34:18 Pt. Name: CHRISTIANO ZHENG/Sex: 1995 Male Med Rec #: [id number] Physician: Sen Burgess MD Financial #: [id number] Pt. Type: P Room/Bed: / Admit/Disch: 06/13/22 [...] By: Patricia Nguyễn RN 06/13/22 14:34 [facility] Coding Summary.on 06-07-2022 Coding Summary. CD:[id number] Gh0 bWw+PGhlYWQ+AK9ZDTGnO20 fhKUgsQ4WQ8jJOI6PAWDCLF GAEZ3YWB5ieIY9ATgrL4Iag iAv DeserCMoNO54MMe9TFC1oRx eKCsjxU1wcWJiG2m7RvNuBY 84hH94FGrvPJUjSoW5XyYxq jsgbWFy F8zqUzOsuAFpPvm+PHRhYmx lIHdpZHRoPScxMDAlJyBzdH eqLQ5pBr1xGNDjKJCqpQazp HNlOiBj s8euYOBeHWtmVM0geVeaQ6T gxPQ1KWSgr7i2Aa60rVM+PH VrRPP1jNcaSLjqs580UwPhf 2ijCPG8 rZYfCRfhEOY6U79ao4I8DGS yOBFaLEE7iTJ8mY7kyQfasj apK9JpiSUbQsE0TVK3uCJuh Y4qpOrd zvswzD2iNxq+U57VJN7TRDC EQK2NDbi9O7VbUwdiwFX+PC 76IMXnKL11dXPqmBYft4dav Tw7ZoFw YXTwMKV5xXerBHzav2NkBLA jG91nhDTcs3A4IDRdaImciH NnVxVenZF8uR7vUUvgahuoq 2hvdzsn Lnoad6wpgs88tF56E28iSLu cOUHrEXC6AGHuRPRwvWgzdq 0xeR3rFe2+DTidi6ofy5ttc Fa8JwYy ROBfmpWnyUjiYYC4a3WoZx1 2B4KddUbqf1XeNpf0db10lI Trh3Z0zPC2UXvxJAGttP7gV WxlZnQ6 SGAsIlPyhW94yPRwAJrhRm0 pbDbuxQeiZE0qOFExuhljVV NxnN3nYQKvtAVilPtpPW3gN TBpbjtm x201DdSsVJI7NZLksTWjI8W ocS0kGaFyPCNzCXVbB3YqrF QiHCanH409KSdhUvF0DENoo wPmK2Pb YBTqiUdlRvP1r0Q4Oy4Kf9R thshlCMW3ABtoOEDjYnImEw AxAvP7W1HlBnt3EXLefIvgM N2fF0Bf SHMzhtulmmvbjRJ7WZIvLLM vpI03mUXbULrmAp7bv3P9x9 12ONHnVIHrpY25Co3xvGxlN TBwdCBU nL4zlcuvr1kqgyzcNhXbMDP fZVr8XTu4NEHubNhjEmFaFV U6KbM2QVA6qELcqV0ywSeuo bkfoF9i Oyc+P55aeL5nKYX4SJZ5nbj kWNDjspUuXI25SX34I0EfWb wvdGFibGU+PGRpdiBzdHlsZ Y3sAsSv d2iez7DkUCghV6EuYZWnJIc eNrz7QLPiMFB9cKZ0hC8jIP UfFAhwv1F1wRO4L5GjnmXnl n1mt0kv XIVdPIfyO33ycPWcw1B3HSO aaJW7QZQtgDgtXqVwdA13Ay c+PNZzaRjja6JqMzimp5ybn 5ayjQw5 PxAiNJCalcNroZuqEET3z1J iBb66Q13vGHmqATPvTCRwBJ FdCTKivJdrln6pvM5dPb8+P GNvbCB3 uHM0vA9jELEhMfP3LRylB78 2HfPffEIkAizye3pvy9zwcE s4NzLzSICbnmQenQnuUOJ3v 3KbSj91 I76rAHmzXQYmVGCmTZCoUEO clMiptl7xeY4kRw0+PC9jb2 gadu36fO54oZY+UOZxIUX1q WxlPSdw CRLiqM0aZSwlNsJ8CMTlSjR olS88tHXdOFhmFy5ijFhxtC acSP2jJHJzbavsb793YyLfq 2xkIDEw qUKnWLgrJSE5L84rt8S1QAU qYPVlIGB9oXQ1vQ1qxVzgxf ogbGVmdDsgdmVydGljYWwtY TcaN166 IHRvcDsnPlBhdGllbnQgTmF vCVk6T0AzOxd0QJRphEwtNW 4wmOGgAExeEk5hvOctxErvR E9xQHGm xltrp560OpYil4cdEYZygNV qWKbvXUU1I84ie5L6BVAuCP BfXGI4yIZ7iA3rwGcauwjdy GVmdDsg irKmkDsyEJbrTUxaX174SBO rwFxbLiWaodQxMPEisQT8ZM 30XY62mGOky6X7cMI3L4IhP GRpbmct oebcwTN5SOXgDYCzwZ68Nl6 wgSnrSb2cUGLgBTY5KPNbdO RfQ0PncI2sIkNfVIQdCYNwY 3RleHQt FVnmO154IPrlTmT4EJLxkpL mB6RxKHPfxMqtCcF2x1Z2Zk 7QZ6F6CC42CH91wTZkq3Z5b RB9D8Xh EIThsqncvrgdfBE8NVWkKNB zdV49Rj1xnDekIx9lQZNxIT V9TAKwkMMcC3EozU1eLnHqW DAwMDAw D4XxsGLpACxxW956LBxfOoD 1YVMkbiLrU0SrGMCmcCipNa K5o7T6Lu6OETo8CX61IX74r FQpy8B8 gJU0C2MjHBZnlhnzighdrER 1TNRdIDBxuL58Ku7pjKlpYc 4gSGJaWUM6KWDsuAMsF5Fgs P2zCiPd XQJmNBGuY1RewYSqKAicB21 5GWfuKuX0EULhapLqP1ApBQ ItpOpgSmI5f4A8Nf5SVYKdI L84WLN1 pOM0JG41JN63P7BsUqabnSG ibGU+PHRhYmxlIHdpZHRoPS fuCDYrZdZmrHjjSB9wVx9rC GVyLWNv gQjknIUtNzIom5feGZEsSQq eVN8wbGieO9WglPR3RAHoj6 v8Mh29Q14pG8VcbDC+PGNvb WS6qSI5 hB5jAnRzLlZ1RCdcY985IaT jyUMsWttsv6qdm8rebMn2Aq X1LAYfrpQeaRhaVTR5r7HnD n76T73u IHdpZHRoPSIxNSUiIHZhbGl qda5xgI2uSc4+JPDneBI6aT D2rN4eZvRvXfI8ZGoeO528A nRvcCIv Xkltd7chd6qzzYk5NhPjTAC aejXuiTykMJB4j5FqNb88N2 OxsOgfg6KlSuv1qp70lKIdr 7A1nJC9 M3OeGMEoidghtWEyaRyeFV4 lJRYduwfkOOBsvL5qMWCtS5 w2GrUfLpY5LTbhU4VzbuE4J DEwcHQg OAzvWPN7J48na3D3AJCxSVM hLUQ4wLD7sT3wlTegxhyweS VmdDsgdmVydGljYWwtYWxpZ 246IHRv vJppXDNqlA4xQGElcSZasRg vTJ2vJEUhylgtRjgXWwoaUD zSXcEMJZ98OJ73dNSbg2Y1c IR3N6Du INQitycxbytftFL0UNMzMSP deK37nOIqKEouAq3cv6I9y5 78KRCjZJBqoS47Ct4mwZarE TBwdCBU qP9ttrzgi8ulpmzeFhQrXIO nMXy1QGa9IHRqaHlnKtImZZ Y6YiY2TVT0xOKzwG6yzLtpn bodkX3t Oyc+NYDaMxInRDd3LEhdyQF +QIXqKLV8kYymIQutANKhwP 0yAYMoW1q6GpPpYjD0MCkqW 3BhZGRp gasfRg44sX0gGgOyFtK5UWg lF2PbhaZ5BTIxrFZvZCqzZP K6X03gr6P6UJGkECVqBYD6v XB4lW8h bGlnbjogbGVmdDsgdmVydGl rXJwiMVnfS483ZQTzpTviUj M4NZjbXPRdBA70FM46sXUno 7K0qLD9 N9AoWJJdmuzsfhlgcOK3NUM rOAItzI60cGGdUYzjSl1ot1 E8h148SXLvJQObuW70Yb8zh DogMTBw tALBjB3gxzycx6wpreiiYjU fUWZuSRc9WGw0AQAlnEvuUq YhWIO6FlN6AMO0iUYwhE3xr Glnbjog sV3xKrx+TWFsZTwvdGQ+PHR yEPJ6pPflDSkiMYAnuY9tAN BgO2b0CbLkQsN9BYpmF9YmB GRpbmct Jt89uH5jEtZnDkF8BHbrO0X cxgO7SAMvwXGoENmpMMW8U3 4jb5I5HQXbKPHnHPK2lEV3j A1duSdm bjogbGVmdDsgdmVydGljYWw cDHdoZ463CSRvpZjoVoBmWS MzER9jlEjciQL+ZW66ts81G 3RhYmxl Saf9ZPUkLUI5pVF5vS7qFMW zOKhoy1O0xKS3A4PymtDbij 0md7ccYSMuJFfuH93edVXbk 9R8HPHb qAP7BVIyaOgbKeGrvE33Vtz +RXBlnHliq3MhFugma1piq4 gthUc0FgVvHRFkhpNcxTghD EN5o6Rg Lo89O22mKEqtOMIhENWwGXN kRKLtzMlibd9mjP1gEd2+PG HuhTE6mKX6hM8yEdNxWaW3Q YlbP803 VoWhqPDrXvgoy7cfs6zteEo 9LgCvBVIhrfYgnEqvXLP1x5 KfSj29H6EwxEkvk4AzGjw3z d67zAHm d5J1wXM5N9WkAMVicxhnhYB ljIxpTB8vXKIkzsmkCSJkgG 0jDDXrG4d5ZyOgHmA2GQlzA 9YbuhP1 UEJftRQgWTHgqIRTtZ7drfn uv0ofvwalLcDuFFOhAOd2PJ i6KKPhpFcwUqEeOIC2FfO9E MJ2nUCt gO5kyPnyyerbmF6rEly+UGh 9m8rtiHWzTJ2yyPN3BF35VB 46yDQke3W1hKT2V5WjOZVax mctcmln fBH4CXAlOLRobV24Un3noRf cZp7sKULlGOM2JRWhwJNiH6 CwxI5hNbDqKVQxSHPwR4Ssy HQtYWxp P986KNnfDcA2MBZnqjHeU2D tGALzaGxeBnU0t4R7Hy7QJU 14UR09WU39nCDre1E0hTT0W 3BhZGRp jilzzjvxiKY8JIHgLZAspZ2 5Ny0kcRjiRs1aAXRhJDR8OU WypPIfP3RksR8hRmBkHUAmO SStR0Rw wGQuXQjgJ328LAkhKaN4AED ggkHcS4JjXJZocKmrRqG1n6 M7Ey9RNt01JS00XL03bOEye 9V7gJT6 M3PqHYQslxgvawsaiWI6VVY kIFTopL86Xx9ciIqaRv6hCM BoQYB4IKSktNVtZ2GciA1nN iAjMDAw XGKoT0ZfjJCfOFccK980VLx zEkZ2CKEkqjTcG1JmGVQseR xeEoS4g9W4Ss4PWMxlzuj9F 3RkPjwv dHI+FC64UEFuSN21zRNtxIC mj0myrIg2GeZhEDJrDHJ5pT rqJByac0AtCXKgR31aaCCbs 3Z0RWMn bGxh (more content not included)... [facility] Consent for Treatmenton 05-19 Consent for Treatment [id number]#1.00C D:127 [facility] Discharge Instructionson Discharge Instructions [id number]#[id number] CD:127 [facility] ED Clinical Summaryon 2021 ED Clinical Summary (Inserted Image. Claudia ble to display) [address] [address] ED Clinical Summary Person Information Name: CHRISTIANO ZHENG [facility] Age: 26 Years : 1995 Sex: Male Language: Micronesian PCP: Lelia Franklin NP Marital Status: Phone: [phone] Visit Id: Visit Reason: Hemorrhoids; NEEDS HEMORRHOID [...] 06/06/2022 15:48:30 06/06/2022 15:48:30 06/06/2022 15:48:30 ADDRESS: [address] [facility] [id number] PHYS DOC NOTES: MEDICAL INFORMATION: Prescriptions Given: New Medications [id number], [address], [place] [id number], [phone] phenylephrine topical (phenylephrine 0.25% rectal gel) 1 [...] Follow up: With: Address: When: Karan Lopez [facility] [address] [place], [facility] [address] [address] [phone] Business (1) In 3 days 06/09/2022 DIAGNOSIS: External hemorrhoid [facility] ED Note-Physicianon 06-06-20 ED Note-Physician Basic [...] 06/09/2022 EST [address] [place], [place] [address] [phone] [phone] Business (1) Additional Instructions: Patient Education Hemorrhoids Attestation Patient seen and evaluated by the physician real estate executive assistant. Attending physician was present in the emergency department and supervised care. This visit was performed by both the physician and an APC. I performed all aspects of the MDM as documented. This report was transcribed using voice recognition software. Every effort was made to ensure accuracy, however, inadvertently computerized wire chief mistakes may be present. Appropriate healthcare PPE [...] Family History (more content not included)... [facility] Comment on above: Result Comment: Elec tronically Signed By: Clark AZEVEDO, Blane\.br\Date and Time Signed: 06/06/22 16:01 EST\.br\Electronically Co-Signed By: Leah Grover M.D.\.casimiro\Date and Time Co-Signed: 06/06/22 19:46 EST ED [...] times a day. General instructions ? Take pmlw-ntj-cwfagxj and prescription medicines only as told by [...] be manag (more content not included)... [facility] ED Patient Summaryon 022 ED Patient Summary (Inserted Image. Claudia ble to display) [address] [address] Patient Discharge Instructions Person Information Name: CHRISTIANO ZHENG Age: 26 Years Arrival Date: 06/06/2022 15:21:55 Discharge Diagnosis: External hemorrhoid Primary Care Physician: Lelia Franklin NP Provider Information Primary Provider: Leah Grover M.D. Advanced Rn Triage:Blane Rodas PA-C The exam and treatment you received in the Emergency Department were for an urgent problem and are not intended as complete care. It is important that you follow up with a doctor, nurse practitioner, or physician?s real estate executive assistant for ongoing care. If your symptoms become worse or you do not improve as expected and you are unable to reach your usual health care provider, you should return to the Emergency Department. We are available 24 hours a day. CHRISTIANO ZHENG has been given the following list of patient education materials, prescriptions and follow-up instructions: Follow-up Instructions: With: Address: When: Karan Jacksonirma [address] [place], [place] [id number] [phone] Business (1) In 3 days 06/09/2022 In the event that this physician does not participate in your insurance network, please consult with your insurance company to find a nearby participating provider. Patient Education Materials: Hemorrhoids A MESSAGE TO ALL PATIENTS REGARDING OPIOIDS PRESCRIPTION OPIOIDS: WHAT YOU NEED TO KNOW Prescription opioids can be used to help relieve orgeyteo-nb-czaweo pain and are often prescribed following a [...] be struggling with addiction, tell your health senior care assistant and ask for guidance or call [facility]?S National Helpline at 1-798-779-TTJV. p Source: Herrera (more content not included)... [facility] Patient Correspondenceon Patient Correspondence [id number]#[id number] D:127 [facility] Coding Summary.on 05-26-2022 Coding Summary. CD:[id number] Gh0 bWw+PGhlYWQ+QG7QHVEsA54 jhKXsaE8IE7iSSI9VCJHWGP OBFE0MEF8sdOA9KWmxW9Qnd iAv ScmmqMBlLI59DDc5KFM5rJy oEPsuzU7ieUPvS2n5KnFpWO 24jB01GNaoCNPqZgE9OjFqd jsgbWFy U0yjYeQhqPVmHad+PHRhYmx lIHdpZHRoPScxMDAlJyBzdH bxTO3tWc6rJPGtNIJddYtag HNlOiBj h4zqDBAlSCezJT6gnGijD2W skAB3GPWcf4v0Sm32pST+PH LyNTZ8xWcnPRvnl998IiSzt 8qdGGM6 xUHuQOnaYXO2R49ru2K7WLT ySDFyZUX3pQJ5xZ3qbOinea ybA9ZvmFYeMbN1FZD1fYQer Z9wlYga giycoZ6wKga+Y48EYS4PIAR HRH8RWzc9O4VdAmbmwHB+PC 76YHJnOA14kXOnpYLem6use Ek0ApGk UBTxNHK3aSvhIVgtu4HwQGD lG65mtFAei5Q5GANqzRwyoY PgImZgdQJ0qM7mJHflbqgpa 2hvdzsn Qqpet9ywqq64oN64D92fIVd oTHKeLHR5KGLrWMVhvEjgyk 5ypJ1pQq7+OHslp7pgu2kdj Du6AdUk GPHbixYbiCezGOG2y0CqLe1 5V2SjjKwoj8ElAqn5em41fE Tfs7B0cMH5AWgvSTDmaI3oR WxlZnQ6 DFKdKnXzhH88gDBjKNktPp8 voYppmXgaHP7lILQqdxcwKC VjhX3fBCNdkLRlgLkrVU7cN TBpbjtm k178AeTpLMJ1FCEigVPfR3E yyZ7dOlWyNYYcENWzP3IeqQ BzUKpbG778CRkfSfK0IBJiy cPlG7Vh MBWaeTorTpL1z9I1Ws3Ap4P tqsifREZ1CSmyAAFrGuS0Pe BeFaN9P1MqFbc3IXViqKbyU O0aU9Lq TTAhvwinkkkzyZM2XQNmRFI bxH11lWThNIjgDt1mf5O3g6 15WJSnGISucZ24Qo9kpJeyD TBwdCBU wL8lrigog4qzdahbVwUpLBZ jYKi5XWf1PNPavGqlKkUwCP W0YlI8ODR5dNKfuW5jvHngk yrknM0d Oyc+M53muP4uZKI1YQE4hxt cLUGglkCzEA36GM35S6IjZh wvdGFibGU+PGRpdiBzdHlsZ B2tHdEb e8xvg3PwXOhzK2LeQPGlHAz bBsu6XVPaVCF3hLD3yY9rOS PlGXsnd2Z3cLQ3S5VddfMdg n2lm4be CMUtSAjjZ98zbFPvl4S9PZE bfUQ8TSPbwXngGqFpuK14Ir c+AQLyfTnil2HdGtqbp2mth 2rjmIl5 LlDdGQPsgkLebBtqABT6a4O iQq99D16gNTlvZTMcLFSkEW MwPPCohXtwbl5lpW3sHx8+P GNvbCB3 eFZ4pX9cLJWwKgM3ZSaxS81 2VwOifDSfPqbay5lme0bvoM w1FjFsWEYnfnUaxDibVAY7z 9RfBn89 P48uTLhcQVOmQQNiBMArHGS qtEgwhn0otY9qEn3+PC9jb2 sycp84vA55oYK+AXVdZXQ9n WxlPSdw QWFyuF1gPXyrEuY8UUFeGiN crG68gQSxNUuxXk1dsZvuqG ovJU5bHBQxsyrsp986XkFdl 2xkIDEw eTAuOWubRNS1K83bb7X8VPZ yVTHfRAP1bRY4nE2wlMkuyj ogbGVmdDsgdmVydGljYWwtY IzwG633 IHRvcDsnPlBhdGllbnQgTmF lPBn0P0IkHqh3XBEnjWwoPY 2poLVrJYqbNd9doIjjcIzxA N6hHIXq cdrea258JzHyz6kvKTJjiFQ pLGiyXQU5G96jb9H2BYJaSL MtPDK6vFB0kQ1zoCbghzhrf GVmdDsg edVfkFqnGAxjRUazX628EOK nlRihQpIpdnUeJWOoiFW0AP 34RO77cSCsm2P9tFC9H2SaS GRpbmct ctvibBP1CYLbUAFciJ69Gg8 szYslQq4eXJXhYWH9HLJtaO RhO2HblF4zFwTyMYNeVHPxC 3RleHQt QBdaK464JFraTgB0XPZyocT qN4XvEUIdpAseSmW4f0D8Bo 0AZ2T5QY90YP31rMBgu7X2e MD1Z5Fz OHQcikbllioouRU1FLRfMNG emI48Jx5kuUwiDg7pQQEwNO E0QTNcgCFrN0MftO7lDnDnT DAwMDAw K2VzgTIrKPejI037YGtlYkT 1GTPkyqCzB4UiXTTloFmzNs J9r3W3Av6ENLi2RY36UM66b KUzp1Q8 pXJ2F5OtOUXenygkoexngHO 2TZPaVJJfnS31Dx6crDavEj 4aPIKiMLA9TSGwiELkJ3Cay E8aTcPl RFJoWWSpV2PnrADmSAphC21 5UDcjJpX1VXBqpwBpY2CiGS OjsJpiZwP5d3R8Pr3KVGXlM P02BNX6 xDW1LI73OM76O8MoNwpqkWC ibGU+PHRhYmxlIHdpZHRoPS hoHICwPlSvoFmpBQ5hUb1iH GVyLWNv fFdcaYPqAxEhd9vgTCLdAYk dDY6ktTjdK8OuwIQ2AZOwt8 a8Ss66R61vM4YdvAU+PGNvb NO0eVX2 nD0iSuCqFjF4JJjtW801HiO ssEPkLuaey9qfs1aqgTf3Xw C4PBMjvlCmqYytMGT7v5PaQ r67X92l IHdpZHRoPSIxNSUiIHZhbGl fni1tbP1hNg0+RFLaeWF1cS T8iB1rLaToDvK3VCgoK537U nRvcCIv Jaxhc5pds7akwOc8VuOfCMD zcrVqoHgmBBU8s5SiUq60A3 AxzJjaa6QxIti2gv35bQFgo 4W2zOK6 C9GfVSRpyneufQTybYkuVV3 rAUIiwrcpLIMvuT2lIRFdR7 s1SsYaPlK5VLkiF5PuoxL5X DEwcHQg ZRzgDYA4J00vt8Q2GGQvMQO iIQK9gSS1jR0ljVtqwwtrpP VmdDsgdmVydGljYWwtYWxpZ 246IHRv fCqlFQYkbM6bHYFutJRncRs mGK8fJTXrsaaeAlbHWaimTV cSOzDZGP19NZ11pRKta3A9n GV2Y6Ze ZZQraywedyggvGF6UWCqPBX rzS68mAHjHKfeTu0ww7O8g2 04RPLwBMZlpA71Ev6deTmqS TBwdCBU fU2ggauhm5jbhbtxKsXdUFK xULs0KYq1OYQapLhpOmWxNB B2InX8MER9aZTfxE0ejUijk jelcL7a Oyc+KVUgNyFtHOp7AMdymWA +EAZgLSF4hMpgQGnqMOComN 3tMXGcW0g0GhMhIqG5NTkyN 3BhZGRp touaEc59jJ8vXkAdWiK6TNw fU0AnykT0GMHamAHsERgyHD O9S31xu2X6BDAkOEBpOXY7r PB8uX0j bGlnbjogbGVmdDsgdmVydGl uACepMZzoB499PPIwqSyjRl F8AUigGIWdLR23XD55aZXfr 0W2lAX4 J2ExJIKfbrflzwrttED3VMR rTTCfaT23mNHlDDuqSk9ia8 D1o037VDXnRLLnvE32An0zn DogMTBw uTZJwD9vlrial9yypnkgSsN cXSFvZAu4CDw1FPFdtGqoQn TuRAE4MbJ3JTW1dSKakU0uh Glnbjog zL4jZgz+TWFsZTwvdGQ+PHR mPVL9yNplIXqaDLChzE9qEC RhE1n3ZaJxAqZ1QAkhI0LwT GRpbmct Qn13kK7gCaFeDvI2NBtoV7Z txsM1ORRabCMtKFyxRTH9X0 7bf7Y4YNReJYJpVQD8kOZ0x J3sjXui bjogbGVmdDsgdmVydGljYWw wJSnbP069XBVonEjtEcGzqC 4gTWFuYWdlbWVudDwvdGQ+P S74ye23 Q6EyQzllAhq9TWPaMIA7hLI 7wH3sEPOmPYbqk9T8fED2P3 GphoFqhz1vd4enKILtOVwfE 29sbGFw a5Q0CKYeyIO8ERZbmBlkRhP gvF46Vad+BKSzfDweq2JcXl fpj6fma1cllRf2JjJqYAMnb mFsaWdu OBX4b6SiUc56M07mUFbjAUU iETUrVXOeOSWbeJttrq9ufJ 9wIi8+REEupGF2pWC7aK1rR jAlIiB2 LAjdQ643XjOpdWYnWcsnn0x oe9stcMi6KhJqNOPkboWkwH luGXJ8i9YlHo73A5JahOzhm 1IqLjo3 rk32hUFjc8E9fTM2X4KfQYN nznpulTDleLclVI2uURKamw ubGRKebA0oPRFcF5d6HhCcA uM9LDun U8CawvT7HRGedGDrMPKodBY JaM9osziro9vkstpcRyYmKY DgNTr9BDw0FLKvzXolBcZbC TI7DyZ5 YZL2lOErgE3glSelnbfgqB9 wOyc+UZc0c1vdkQIjDK8jbD K5XQ21TJ78vHSem4I3eSQ3O 3BhZGRp isyoppbasPZ0HUCqVSIucD5 5Kq4nnYkeSq0yZJLxYDR2ZB SjfPBuB2YsmE5jEoKaSUNfC AQxF8Pg bVTuJLiaP335ZLneFcN8WRE gxqIcG0StXIQicAgbIoN5l6 F6Bd2QZJ87YI63QZ97wPHmo 1Y5gOL8 S1JpIFWygntbddlkhJV2FTN lBBJexF51Ex5qmTgsQe5yHM SjFYT5IKBzcDMaP8QamX8eL iAjMDAw FASrD0ImpBGiIBktP050YWr gSyV2CBQnvfKuP1NbURLfjM luFsQ6e3E2Hm6ZWf40RO94R K41jYHx u5X2tGH1S5WtFLUbudcmjwx upJT2OJSlVMUqeO05Ll5hsW lmGb5eHCWxKLT7MMBmjJEvF 7XdhH8r QdPySLUfEVNnV7JklVGbEMw zB511AWxnGzE6QPPrjuPpI7 IjDBUklAjzNeR2w5G3Pw5WN Xllcjo8 Z5ZpAoihnCH+EG86NYVpEZ1 1nIYbqSGdz3pscPc3JlGvVP LsDSE7zBamMMvel6SyVCKtQ 29sbGFw c2U6 (more content not included)... [facility] Coding Summary.on 05-25-2022 Coding Summary. CD:[id number]:[id number] Gh0 bWw+PGhlYWQ+RB5ATQMcI77 gdQTyjP2KM9rDZA8NUAVHAG XBEP8BUB5pvRH7CTvkJ4Heu iAv ZbmdsWMuQW79CGj6MWP8lOq tJFznwW6cgJRzS8l2YpRsEJ 61lX56NLmgBQAhFnU0KbGzh jsgbWFy O8kcIrHsqVKdPyp+PHRhYmx lIHdpZHRoPScxMDAlJyBzdH emRH7rCu6wBLPxYZLdeUmgc HNlOiBj j5thNXDwJAarHH0wxUppC7W nlTQ6STXwr7a3Xa68kQW+PH OsAZD2gMguHGski961DdYau 2xpBPA6 iIUmQXskVYW4G01ca4C8LZS eUHHpBPC3nKA8mT7fdJjupt wrS9EtjTFgZiF9NJC2aUKgj X6sjRfa fhqcaC5iGav+Y84JYY6PRPO CII9IWti5Q0EeZxsxvKB+PC 64OBVzLK32vPUinPYbw1uoj Re8LmAm WWUtDFD3hPzaDGvte4GfLSH xN48cyHBif0N5EAMfvZgghL KjNhKllZD0zG9yZZykwhpcb 2hvdzsn Burif7qxso97vF53Q85pWMg rSWCdYTI9MAAaVFTshDeldk 2htO8lFb8+EJika2hzd3bnt La9PtDn YQEkotTemMpcYCP6i3KiAu9 8O8YitVcnd3YnPqc4rc69eP Igj0Y7aBC6BMxwIFTasO5wL WxlZnQ6 WHAvKgKbdL77xRLiUVenDd2 yeMecbKtnGR3mEUFelshhJD VnyU1oNYMgiTVqkGecUB1pL TBpbjtm o653UdMsOHH2DEIeaISlG7L ckL3xRlBsSPZaHJRbM3HytD QmMRyhN518GGyxGwK0MMTja qRqY6Be JSUuzFvyNoW8x4W3Cm7Os5V ffjykPCK5VNuyBCLfHwQ8Tj QxCyT5Y8WpSdn8WTLreQsoA A2iW4Yj PYOhcjvukklesLW0CBNtQOR tvJ87eXGuKNjcIy9ly3E5i0 51NAHqKGLkvF28Zu1qzNhkV TBwdCBU jE8sbdyse6mfuaryPsXjKTM tNUi5ZPw2HDMxmLruQuOyZR Q2GaY1KYS1oLUbvM7laFdyt erhlS7y Oyc+Q65kmY0pHCZ5RES2ymd cNZDzlxLeLR74MU07H9HpWs wvdGFibGU+PGRpdiBzdHlsZ I8oJcPl k8pvo7QuTOapY2VmUMQdRUv qCwy3LHJaTOP9eZM7nK6yDX TvQLyqa8D4sRU6W4GkyjRpz k7yy5to EDUyAMieL08buVSfp8E3OTH bxJC1SREmxCuqJbOivV60Ce c+YYTfpXoub8WjMeaxj2lmy 4cahNm2 NlYrYKVqcaXxvAmsHHS7m7F qWg99N38nMVteNPNgCDRmYV EsAGCzwNycvh5ojR6aRx5+P GNvbCB3 jSD3eE4vYCEoByC8QTloR01 9KjRkfMLoSjmfu1fkb4bdeH k5HtWsBZYlqwQbuOrgEOA6c 9LsGs65 K79fZVdcMXIpZVTeAGCdWCY kjEswux1upS9zNv0+PC9jb2 dmdb38hI74xIP+GNCmCQX0e WxlPSdw MMYdpI5qIFsfMmE8HAGjTwO ddN21jWHfVXabKq9leQpksO kpUC9xWBSwmsrhv363HbLqu 2xkIDEw tWSaKGbnHSS2C26vf1Q5NUT sQXYjIIW9yUP4jS4vuYsppe ogbGVmdDsgdmVydGljYWwtY YcsW805 IHRvcDsnPlBhdGllbnQgTmF eAIg3T7TcSnc5TKUduGvpZU 6xgSZtHIeyDx0yfDpklFthE M1bIHNu sydvh985PlTks1zrOXZndJW hPWcxWDN5B99ig9C1HUUzPD VlOGL9gNK2dN4jmKnjaimep GVmdDsg gcPdwTcxQXzhWVatO202LTF lkInnTyOictRlHXVeaND5QB 53WR78gPOky9X5kMW0K8YhU GRpbmct mzlsfHY0DOLnGIZszF16Ih1 gzFtgGc3bBFSlALA6BARmoD IqD9TulN0aCrNwZPHsHVInW 3RleHQt XBpiS953RNgjOcL4RFUxtmT xN0ClXUDmqDjcToD0z6M2Pz 9DX8B3AS02DF66kFFkd5V9t PX2D3Is EGEpgjnjbskwdHH7HPSzPSN ceM26Ht9klMqeIg1yFCTrVU G9HNRrsXRaW9QzpU2lQqZtQ DAwMDAw A1BtpHNcNUvgX853AWhoNnW 0VRCcbbXhM8XhBMOxjKctVt G7g4R9Uz1NDPj0OH79JW31q YAgo8Q9 kZH2G5GuEXKsfuqejgvdoTD 2KSJyRKQouK38Ap2unUxeDc 6cRKSuZHJ1KSZesSShQ9Bqs C6uVxSz VXPiSHEfJ4AnyXZiCGuiN69 2CSixQxA4FFLsahChO7MwLT WdjDshWtG9i1T5Ji1QNQPpY A12WOJ3 zDM7TG69BE64R0WdBzthsXJ ibGU+PHRhYmxlIHdpZHRoPS ydPJJgUvXdnWltUO6tBz6aU GVyLWNv xIensPIzLbPmb9wjKFDuRGe wVG9nuXpuD0XmkOP3GDIqs2 m5Ml92Y24iG8BmuXH+PGNvb MT9vPR2 rW3zNqRkRwZ5WAzmG043QnC kdEYkXitjc8okd8momLw6Ai M0BJLxpuFlzLisRAF3x6CnU r94D66d IHdpZHRoPSIxNSUiIHZhbGl xqu9czB8jMi4+SKZfwRS0zJ M8mF6tGeNzDtT3ZSwiR991I nRvcCIv Lzytk5lfk2rvbOo7IcGsSXN rcmPsgWqrWWY7c6RcXv55C2 RmpOiyu3RcVgc2kj50nPJte 1G8jMO4 N4KuJANacijzjKPbcOriXO2 xAFEqyzsjEDXibJ7lGDNsP6 x1LnNqLjX4HGhkL0OamwK5S DEwcHQg OSrrPJZ2A89wx4B9TDPtLBF vISI0gSN4pU2ksHwzuavzsD VmdDsgdmVydGljYWwtYWxpZ 246IHRv tNdnHBOczY4iTPSkzMUmoKj aEU5dKKPjdjeqDjpJMhyyWN bYNcBLEL09CV25lKSgf2L9j MY6X5Cw EODljtqlypcokQV5DKNyEDJ wpJ24sNZtEGgkXg8sk0X0q7 99UUMcZFOhvR81Zp6jwAfoX TBwdCBU wJ0mksegp2stlrogTlVhPGK nELq5OLy7NVWcdYfiPlWiHK X3OpP0CDN0dMDktH6tmFgsw tczsM3r Oyc+JTThRpQiKUx3TUaodVS +DGVjFJV8bKnqJFypDLPnxR 2jBVQrM5n0PlXwQjU8RCgrK 3BhZGRp sutbUi17oN9nDcWlJkI3JRd bX8KavhD4XWDkyMAyZHcdCH X2S89rn3J9JTAzAEKzPPD7k AF9pS7o bGlnbjogbGVmdDsgdmVydGl cIIkwNRwmQ815UCCdsVuzXq I2RVcqOSSuUD79RD59hTUvx 7S8iNV0 S2MfZJXsulitfombyQV3QZY gJQRdbJ98nEVsCReqDf8cd9 A8k229WIOhHORmaN72Dy6xj DogMTBw bJYHeJ2pnppfp3tssnztJgT aSPYdAEf3AGq6ZGAvkXnrVs HhUND7LyI4VMF0wWYwlB0oe Glnbjog xH3pWsz+TWFsZTwvdGQ+PHR fMNI7eHwxJXdgENVctM4tYP ZwX0s6OjYyJyX2LBpvQ4KxJ GRpbmct Gc53cP3bSoObSxR9PArcW8X yacB7FIXolMNfBBvaNWN9Z6 2cm6A9LBLuOSUfXBE0dOZ1y X7cxZmq bjogbGVmdDsgdmVydGljYWw cPTncU732JJTceXyfPq04gE CvxChbvdD7D1StMklfmZE+P U25CRSd ZC07nRCwpVBol8pkzMb2YkK zFIEuHGO1lSzmPQopr0JqPS RiS51ucFXoe4E6BAUpgQpzv HNlOyBl yEU6uX3mTHeuhqyto0arilk yTmead9eljd27wS06Z53dGO dpZHRoPSIzMCUiIHZhbGlnb v8syA6p Ii8+WUWyuTD9vJU1lP4hUlO aUoZ7AZdnN532QkWadIVgLg heg8rhf1nhrAn1EyEiOMIwi mFsaWdu MZA8c6UdYh46W54kNMswTQJ wGMPkSDBfWYNnoCxaua3bgF 9wIi8+OA8ed8auyu05mX62o HI+PHRk WOC7gHwdSNdfGJTdlE2bNQl jFeI0NJNqOnTbaV05aTLuRT ewDc8ceAlmiZgyCS1nPGSqw ymcy644 ItMqg8eqYAQhuPKxDSevZYN 2S40om6T0TIIcSPTySFZ7eJ Z7dM7knRkiffpabMRwmWlwp mVydGlj ROniCTuoO024EQIspQchQeX psELtA6kdegBSOM6bOucdvD Q+GBYxXLT6sQqgWIyrRRHnp E2jXXVn L3f0EgQeHrB0BUglL7GamyD 2SVSscEGbBJHveEEPtT4acq eiy9wqoiumRcVsMAZkFBd9Z Vw3DOLp aZnyQbKpZYA9CxB4VVE8yGJ mfE0mwCydikemoP6mTuo+Rk lOOjwvdGQ+LZGzWTU8aUbpK SdwYWRk cY9bGANmN2y0AaDhHjT5LMk eO2VyzwZ1KSYrzXIcESUxbV TAoH3umifjo3kowgjoLaLhA DAwMDt0 YOn1SHAdpDqwIkNsQLK9OuO 0VYF8fSErgZ8sfBfvctptkT 9wOyc+TVJOOjwvdGQ+PHRkI BW6cKof IEowXEMlvM4cTGGxF1m7GoT nFmX2YRgwU2NptyA1DCIatJ LlPANglDVFmN7uehnip3kzc jogIzAw IJCaHNz0GYk9RZEmtKszMjL pCCR6MnY4LHG6iUUcuJ7mrM uludbhaG7rOax+QHN7PQA6Y W53NN81 K6DiGwqrkYDpcGA+PHRhYmx lIHdpZHRoPScxMDAlJyBzdH reHF8yDt5oDLDxSEWybMfnd HNlOiBj b2xs (more content not included)... [facility] Coding Summary.on 05-23-2022 Coding Summary. CD:[id number]:[id number] Gh0 bWw+PGhlYWQ+QI2UVZVqA50 uhLNirH0JG6eVYS3BBONHDW CVMC2ZFC7ixQC2VCgeH5Ljb iAv YhichJBdGE08NYh7XQC2nJk kDWymmD1dbJCbD3q4TvNhAH 60fD59QWmrSHWfPnO3HvVel jsgbWFy L2soHoOndKKmRxs+PHRhYmx lIHdpZHRoPScxMDAlJyBzdH zwSY0uTx4cTNOdUQLeiYcsx HNlOiBj n6dcHEHnTFsuGV7zgIhtU3Q ubFY1QQWca3u4Rs82nDT+PH BbLFF7iKdtKMaqm377JyFse 0tjGGB4 fKQuLNbePPG2N12kv3I0AUC tUYSkSMO9qTB2gR2geJzfxu jmB3FjtYSvYsK6JSN0yPRfi J0rqQxi fznokD6xReh+H35GSK0NCHM LEZ9JJao4T2CsGfutvTO+PC 37OCJhHW50nVTxlBVoy7hbm Hf0WyWs WWKjWCL3lHkvEAais4GpTNC aJ52rkBXxy0W6XNPqaBzwcV UrLvRhqJR2zS1jZVujbpfwe 2hvdzsn Lbdep6rach68mN88S02vHNw fVARxCEX8QNDxBQTolHcwhp 6maW1sQt2+MVqtu8hpz5dkl Fn1HoCa RAAsocKeoJjaWHK1u2CgVa5 3N3WytEwar2GaLzm1oi62bM Jil1I7dKW3TQzhXTBefZ3zT WxlZnQ6 OZXuLmDyuR51jRBpWLynGu0 caXqwgTezOY8eMWScluomBF EksX4fICZrnGSwxYxrUC7sP TBpbjtm q182AfTfESM7TGMxcQRbR6A glF2xUnJyMQVpYFBsH5JwrL KlKNiqP881VGhnNwZ8ECLyw iAyG9Bu BAThkLzqFfP9d4J2Zf0Gz6A dbmoqDYF7KCwsRVMhQtQ4Jk BtPkK3F7BiGgf7GFWvtGmxW D5iD8Kn PUWeuidpkxmpmDO7GBJqCVE ftK67rDLzWWruLc5tx1M5j9 20WVMkKHNybS08Fa0pmDqyJ TBwdCBU gM4flzida4vrjbkpHpAoFUT pJQc6PXl5PFAtfNywCmYiYY K4QoV4QMI1rGPyqV4wdCdmy quecS9s Oyc+I56leE2oBMJ9VYJ9kgz fYTKvrfFiZP15WW55K0EdPz wvdGFibGU+PGRpdiBzdHlsZ H6tKaXq n0mgt7YlITlrA7RrSDKbJBc mHuu6BYPjMCL9qJX5aW1zZP AkFAwlm2H5hTA0T8QwguEhm s6ve2mz EKExCQphN76yaAExa8J7JZU ifHO9ZHOvqRxxKaAbhD95Pr c+HEWdyQpjr3NuDmxra2upm 1xtfVc4 OwZsJNBgclYgfStfOVH6n0W kEz31O62vAAkcSKWiOYIgBP RaUUKdoWukre8sfT9aCh9+P GNvbCB3 pXE2xS9nHKXmWqO1LGsyA13 6OwUdhSLoLcorp2xnx3bqoM f9HtHhESGnuxZydTofOOX9k 3SpCp57 W99dQJmgBUOeNDPyQZSwJCC dnEhofr0umP2yNv5+PC9jb2 awzu26uZ45fVM+CCHjNKC1c WxlPSdw ZIEcrH0sASgaXyG2MADkSwF daG88dNZqERzuYh3ntKpymH eyOS9zXHMcxjjek046NiDpp 2xkIDEw fSJdRPnkNCB2S89rm7A8DYA vSKLgNBE3lYM8fQ2rcSfijq ogbGVmdDsgdmVydGljYWwtY DwlO851 IHRvcDsnPlBhdGllbnQgTmF hTGi4U4QyHcb3PMWpdTeqTU 8kqDOkSIkqJj7lwIfpiQzdT J6kRKVi jsoew349FcOjc7pxWNRcwKU dXNqyZFO2M51wj1E0JYFbSK FiGPU7tLN1tW5vcOftputqw GVmdDsg gfRkpFhjUWbqNNrjN498PYK rmRecPjYwiqCzNJLyvJT5VL 47EY55lXIow1B0oLE5N1VjK GRpbmct ocdkaFZ9ZDLyTOBtbS01Iq7 zyElsUo5eRPExEQH4NZSkiX UeN6ZgsC7tRoAtJTWxZYRvA 3RleHQt DRouB884MYujUmL9OVOyboX nZ0DqIQYtyZzkKaQ5o9B5Uj 7JK9I7IK67IF24iTLia5Y8x BP8F8Nt WNDdgqgijqpvfCQ2YTFtVRZ ghO56Gc6zkLpfNj9aQOSoZQ F3DHDtxHArK7MyzR5uNeUgK DAwMDAw H9SkmMYhLDikN425VZluNcY 5TWCgivKsQ1SbQEIsnZiaPy Z0v0A8Mw4UDJi2JI32LE62l CBgw3D7 pSU4J7DwHVVgrzfrqoslgLH 3NUXkIGFusR21Cv7bjOifPw 8fNVHeOOO7UPKtuZZcA6Vhe X3oCzUl ZGFsRQRbY3ZcgNCuXLmlL58 4TCetGnU1YFIpvvXkG3WeMB LjtTmwOlQ8b8S2Io7GTQHvE B74TLQ6 gMT5XM33ZT83T3WkMbjslTN ibGU+PHRhYmxlIHdpZHRoPS dzNRKxLxZjrTmpLF3cTh8yT GVyLWNv wJvttQUhRfZqq7gpCWZcCFs iOA0pvIbdZ7MzoCG7IKRpk6 w4Cx00T26eW9FjbLJ+PGNvb PF3cTQ3 uD8sAkQrAaM6CIgxD957YtR hmQQfBddle0utj0zlfKz7Ct H8MYIhhoYhqKwqXXS3z6XrW p86M55y IHdpZHRoPSIxNSUiIHZhbGl ytd4ojN3oMe5+HHAekDT7uW H5jM5pJdCnNxC2RXxhD287L nRvcCIv Naoca0wme9rxhGe7SgKqYMB ariWmcFpbWVL8m1MhDk68M4 FzyNmwp5LfNle5xw71sAEbj 1B5iZD4 Z7QrUNLwebpjbRMdxFhlBS7 pNJExvuqiOACmfO4nXOZyT4 m1CwRaQcH1GRhuA2VfthL7I DEwcHQg GXkuNFA8O56kd6M8HXYtVSF qEFS1nBM6uN3faWguklexfQ VmdDsgdmVydGljYWwtYWxpZ 246IHRv eCmzPOEcoP1mCJUcbZFwpGs vKZ1mWBSphwavFgiXFpcuZR dJNlIBPA67OJ28lJPpz7J0u WJ3L8Ex XIYvcyzsgbnhhML4FAKjUIC kiU70bJLqPKqoMl6xc7K9z4 10PAPmOAHdzS79Cj1slDlsH TBwdCBU qF2wuvnrl1yrilpbBuKyQDF uMGy0UPu8VZSsmUgjBxQrGB U0YyN3UKU4gTOiyL9lwJpmk jlqsO9e Oyc+HLSgMbIyNEq6GVgirOU +YLDrKTL7aXrpSOkwHNEapL 5mHNIeW0s3WyDrWvD4RNeaK 3BhZGRp sxceFq71sZ3jBdGzMrU0LZy kC3VbeeR1WYJeuWCiCLfsSH E1N83vm2L5MSUmBFTxPON8t ZG2eR8a bGlnbjogbGVmdDsgdmVydGl pMJosUWtyB978QGJduUayJv H0LEwkGSRbCS64DU12jZXis 3F5bPS9 E0YfQVRvuxssclptrGX5DJR rFRVoyN89nUNoTFovVf5pn7 I5e457VSLoYWMewO57Lt5ru DogMTBw tHXFkR3wyqmco5ctggruMfO mOKVjOCm0GOk2UZOztTtiUa GyVBZ8ZzW7VIW1xYNucV9yq Glnbjog kG2dTwb+TWFsZTwvdGQ+PHR mOWC9rEdyJNmqOLJcdN3nYX WsK8r2GvWtLjJ6OElwD6GiW GRpbmct Ud09eG3rAnOxLgD0DYsaU3I sicQ0BFYkgMIvXXusMXZ6Z4 1lp9P4PXNaXUObAWF4iYG4w W3idYyk bjogbGVmdDsgdmVydGljYWw wIFafA864UDVlyZjxMmAnFS PeIT8dkGylqXL+PD51ly19G 3RhYmxl Jqj4LQBjLKK6fTV6qO4pGRP yCVmnn8X1jJH0L2JgssQyxw 6ok9bqSUBhKHwbD33duRWba 3Q9FTXo yNM6WFOdiIyaXxKgtW46Bwy +FFDwpGjam1SzOessx9kvn7 uyyQe6JyYeWGWzxfDwyFsmG YY1u5Mu Jg66E88aUGweFTXbNFDiJGP hSHCugBncfq5chK0xNa3+PG WtfOE7gLE4vH9mZzLuWaW0A FfuB627 XqPndLNtNlatn4usu3qruPc 1SgPdOOJjjlLzkIkmRSD2f6 GhBf66O5PdfBgyn1YrTss0r d09aAEb l5H8uXA3L2PnPQIjghchkVV moPrhNH7wEQWfozakYKLysW 0gGPNiD9k1PeLgEvZ7RHvuE 4ZzkjZ1 NHYjmWNjSCQtnBISwW3tydq sx6wekkzlIaFeHWOeAZt3VB t1KNYefPjeUcXpUUM8WtC9A ZR0jQNr hG8moYrrfnqdgW3cKjx+UGh 6h0xdqLClNE1ezGM6YQ67RL 89pITei2U3bJI3U2BpAFSwk mctcmln oGW7ODCcRSQzsI20Ph5vpCn nHu1eYFByACR6MAYwnMYxI9 LraM7sBcLkIAKcKLRdV8Auh HQtYWxp R387KXtiQuZ4WBMfarLlJ3K tYJZgjZjzDjE8y9V8Ij4SNQ 29VH95SE05pAEaq3Q0bXX1Q 3BhZGRp empnxfqcuPK9QJNwVWTcmW6 9Sa5rgDrsZg0mNZJwJOC8SS ZmqYPwN5NapP9aNhUjQVUcA VBaN0Do iKDwTYotW995SZdzEcH1TUJ guqUrX8IwIKJadDsnJsU9c0 E3Mc7AHv10OW83VA30rWXrl 0P8kUT2 W9QwVWYwqvczpqucqII8WQD gDPDccH70Mc6rhAhjNd2kEQ MzSPH5DUJpyESrO0IziF5mI iAjMDAw MMWeQ9MusOBaQSfiG824UUa bMyO1UCLclwJqW2IiSKIbmE qyHtG7j4L2Ld8DNMdziij9K 3RkPjwv dHI+HI68OXZvTL25zPHmzQO os8ncrAa0JvOdXIDsORA6dW yfWUtny6RzALZgH88qbTPxk 2W0PIFq bGxh (more content not included)... [facility] Consent for Treatmenton 12-0 Consent for Treatment [id number]#1.00C D:127 [facility] Consultation Noteon 05-23-20 Consultation Note Patient: CHRISTIANO ZHENG Age: 26 years Sex: Male : 1995 Associated Diagnoses: None Author: Jenifer BOGGS, Sen Dodson Subjective Chief complaint 05/23/2022 14:51 EST neck [...] Daily, # 30 tab(s), Refills(s) 1, Pharmacy: [id number], 178, cm, 04/28/22 15:31:00 EST, Height/Length Dosing, 79.7, kg, 04/28/22 15:31:00 EST, Weight Dosing Vistaril 25 mg Cap: 25 mg = 1 cap(s), Oral, TID, PRN for anxiety, # 40 cap(s), Refills(s) 2, Pharmacy: [id number], 178, cm, 04/28/22 15:31:00 EST, Height/Length Dosing, 79.7, kg, 04/28/22 15:31:00 EST, Weight Dosing benzonatate 200 mg oral capsule: 200 mg = 1 cap(s), Oral, TID, X 7 day(s), # 21 cap(s), Refills(s) 0, Pharmacy: [id number], 180, cm, 05/19/22 10:12:00 EST, Height/Length Dosing, 80, kg, 05/19/22 10:12:00 EST, Weight Dosing brompheniramine/dextrom ethorph/phenylephrine 1 mg-5 mg-2.5 mg/5 mL oral liquid: 10 mL, Oral, q4hr for cough and congestion, 118 mL, Refill(s) 0, [id number] 180, cm, 05/14/22 19:45:00 EST, Height/Length Dosing, 79.5, kg, 05/14/22 19:45:00 EST, Weight Dosing cefdinir 300 mg Cap: 300 mg = 1 cap(s), Oral, q12hr, X 10 day(s), # 20 cap(s), Refills(s) 0, [id number], 180, cm, 05/19/22 10:12:00 EST, Height/Length Dosing, 80, kg, 05/19/22 10:12:00 EST, Weight Dosing cyclobenzaprine 10 mg Tab: 10 mg = 1 tab(s), Oral, TID, PRN for spasm, # 30 tab(s), Refills(s) 0, Pharmacy: [id number], 178, cm, 03/28/22 14:15:00 EDT, Height/Length Dosing, 83.1, kg, 03/28/22 14:15:00 EDT, Weight Dosing predniSONE 20 mg Tab: 60 mg = 3 tab(s), Oral, Daily, X 5 day(s), # 15 tab(s), Refills(s) 0, [id number], 180, cm, 05/19/22 10:12:00 EST, Height/Length Dosing, 80, kg, 05/19/22 10:12:00 EST, Weight Dosing Problem list: All Problems Anxiety / SNOMED CT 53422490 / Confirmed BMI 23.0-23.9, adult / SNOMED CT 6544257353 / Confirmed Cervical radiculopathy / SNOMED CT 963485918 / Confirmed Cervical spondylosis / SNOMED CT 6245339548 / Confirmed Constipation / SNOMED CT 07772975 / Confirmed after GB removed Difficulty swallowing / SNOMED CT 07433412 / Confirmed Enlarged tonsils / SNOMED CT 688681253 / Confirmed Family history unknown / SNOMED CT 7572136215 / Confirmed Former smoker / SNOMED CT 66926461 / Confirmed Hearing deficit / SNOMED CT 91858619 / Confirmed 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 / Confirmed Hereditary spherocytosis / SNOMED CT 97116514 / Confirmed History of neck pain / SNOMED CT 8049378572 / Confirmed Hospital discharge follow-up / SNOMED CT 0150697771 / Confirmed Insomnia / SNOMED CT 765628564 / Confirmed Lower back pain / SNOMED CT 293330438 / Confirmed Medial epicondylitis / SNOMED CT 82769719 / Confirmed Muscle spasms of neck / SNOMED CT 3991192627 / Confirmed Non-smoker / SNOMED CT 01286955 / Confirmed PTSD (post-traumatic stress disorder) / SNOMED CT 40035961 / Confirmed Screening for cardiovascular condition / SNOMED CT 678411516 / Confirmed Splenomegaly / SNOMED CT 64967961 / Confirmed Stomal ulcer / SNOMED CT 1081613617 / Confirmed Testicle lump / SNOMED CT 519130278 / Confirmed Objective Vital Signs 05/23/2022 14:51 [...] IMPORTANT. EXAM (more content not included)... [facility] Comment on above: Result Comment: Elec tronically Signed By: Jenifer BOGGS, Sen Das.br\Date and Time Signed: 05/23/22 15:07 EST Office/Clinic Note-Physician on 05-23-2022 Office/Clinic Note-Physician [id number]#1.00 CD:127 [facility] Patient Correspondenceon Patient Correspondence [id number]#1.00 CD:127 [facility] Patient History Officeon Patient History Office [id number]#1.00 CD:127 [facility] ED Note-Physicianon 05-22-20 ED Note-Physician Basic [...] day(s), # 20 cap(s), Refills(s) 0, Pharmacy: [id number], 180, cm, 05/19/22 10:12:00 EST, Height/Length [...] Information Lelia Franklin In 3 days 05/22/[address] [place] [address] [phone] Business (1) Additional Instructions: Patient Education Otitis Media, Adult Attestation Patient seen and evaluated by the physician real estate executive assistant. Attending physician was present in the emergency department and supervised care. This visit was performed by both the physician and an APC. I performed all aspects of the MDM as documented. This report was transcribed using voice recognition software. Every effort was made to ensure accuracy, however, inadvertently computerized wire chief mistakes may be present. Appropriate healthcare PPE [...] Tobacco Use: (more content not included)... [facility] Comment on above: Result Comment: Elec [...] by: MARY Technologist: ROBYN Technical Comments None [facility] Consent for Treatmenton Consent for Treatment [id number]#1.00C D:127 [facility] Consent for Treatment [id number]#1.00C D:127 [facility] Discharge Instructionson Discharge Instructions [id number]#1.00C D:127 [facility] ED Clinical Summaryon 2021 ED Clinical Summary (Inserted Image. Claudia ble to display) [place] [id number] ED Clinical Summary Person Information Name: CHRISTIANO ZHENG [facility] Age: 26 Years : 1995 Sex: Male Language: Micronesian PCP: Lelia Franklin NP Marital Status: Phone: [phone] Visit Id: Visit Reason: Sinus Pain/Congestion; Cough; [...] 05/19/2022 10:49:17 05/19/2022 10:49:17 05/19/2022 10:49:17 [address] [address] [facility] [id number] PHYS DOC NOTES: MEDICAL INFORMATION: Prescriptions Given: New Medications [id number] [address] [place] [place] [id number], [phone] benzonatate (benzonatate 200 mg oral capsule) 1 [...] Lelia Franklin [address] [place], [place] [id number] [phone] Business (1) In 3 days 05/22/2022 DIAGNOSIS: Otitis media [facility] ED Patient Education Noteon 05-19-2022 ED [...] Follow these instructions at home: ? Take almt-gqe-gjxbixu and prescription medicines only as told by [...] 03/09/2005 Document Revised: 05/17/2018 Document Reviewed: 05/25/2017 [employer] Patient Education ? 2019 [employer]. [facility] ED Patient Summaryon 022 ED Patient Summary (Inserted Image. Claudia ble to display) [address] [address] Patient Discharge Instructions Person Information Name: CHRISTIANO ZHENG Age: 26 Years Arrival Date: 05/19/2022 09:54:01 Discharge Diagnosis: Otitis media Primary Care Physician: Lelia Franklin NP Provider Information Primary Provider: Karan العراقي DO Advanced Rn Triage:Blane Rodas PA-C The exam and treatment you received in the Emergency Department were for an urgent problem and are not intended as complete care. It is important that you follow up with a doctor, nurse practitioner, or physician?s real estate executive assistant for ongoing care. If your symptoms [...] Instructions: With: Address: When: Lelia Franklin [address] [facility] [address] [place], [place] [phone] Business (1) In 3 days 05/22/2022 In the event that this physician does not participate in your insurance network, please consult with your insurance company to find a nearby participating provider. Patient Education Materials: Otitis Media, Adult A MESSAGE TO ALL PATIENTS REGARDING OPIOIDS PRESCRIPTION OPIOIDS: WHAT YOU NEED TO KNOW Prescription opioids can be used to help relieve fqpzltyd-ko-nidbmk pain and are often prescribed following a [...] from the Food and Drug Administration (www.fda.gov/Drugs/Reso yusufcesLavellu). ? Visit www.cdc.gov/drugoverdos e to learn about the risks of opioids abuse and overdose. ? If you believe you may be struggling with addiction, tell your health senior care assistant and ask for guidance or call [facility]?S National Helpline at 3-930-312-UGTN. z Source: Department of [facility] and (more content not included)... [facility] Prescriptions/Work Noteson 1 07-20-2021 Prescriptions/Work Notes [id number]#1.00C D:127 [facility] RAD - MRI Screening Formon 1 07-20-2021 RAD - MRI Screening Form [id number]#1.00C D:127 [facility] Coding Summary.on 05-18-2022 Coding Summary. CD:[id number] Gh0 bWw+PGhlYWQ+GL3YXDVwX08 yiQRnhX7EL4pKSJ0XCMIMPT QHOA7YKH8efYN0PUtrV3Fsc iAv TpkbwJJvTD09POm1UWQ0aMo vJCjuzS5lbMOdM0b2HmWjEA 12yS53GTwnAZFkDtP6YhWta jsgbWFy F3deGeRvgVVzMjy+PHRhYmx lIHdpZHRoPScxMDAlJyBzdH enYM8kPa9zNPFaNQVeeEqcz HNlOiBj q9poVKTeTLvkHG7kuSknM5D ceCK6JYOdw2m9Cx49dPD+PH PgRJQ9aWpiOPgtp442BkGgu 4rwMPZ4 eGJhZSdsHHG2U99xq6V0ORT jZMMrEYG8lPV9qY9pyOvvmy hdI4ZanZOlKnU3SCZ1fJCiq A5iiTut jgjnmS8dTmz+U71PYY6NYFB HOT0FEmy9K0EzRwowsXE+PC 21ZRSiWU81wUMqyTBbm3uor Si5EnWq CIScXAU8vHxbAEvbu8QbFZU qH75gzWYmr4G5STDatXlzzV NzJcUxgHG2gH4iKPklbniad 2hvdzsn Icigf7kvqq82lW09O14zNZs tPGYpBVB7HXTeBJUpuAtvxz 7tpQ7qNa1+PBxws2uln0mjr Vp7AqSq PXFkumWaeJfkELN0x7PtNe5 7F7RoxUgqq1OmLoy2kw58oB Sgx4I4nAH9VHsuMPBrjR2fW WxlZnQ6 WWRtZrOoeJ23zTAeVKzuMy3 jbLlzuHzoBE8lVVRzcbxoZP HjsT3yCUBbsVLthBrlZA1yO TBpbjtm u236JfKsMMN2YZHzmTUrS9U bnZ3hAaNeGALhPMHtY7BliC SaHTkaR730TThqSwJ7FFDki gPbD8Zs XZXdxUyxMxC1k4I6Yl9Ic7G mblmyFVK3EDmcZDIgEfYhNz WkTgZ7T4WoEtk8NUCosMmrS B1gF4St PNBedosmhnmvhWU3EEPjIHU fjV17uFXaSRvaDv5qg1S8j7 37BTZqNJLhzF94Lc9acDdkT TBwdCBU vH5zdmnmz5nxoyoiFcHuMON iVAs6CVs3OQOivPaiTqEoNN C4VuJ6UUR5wNYeeI3pbSobx qgfgX2b Oyc+G49sbB1eMOM9NPU6xit yPZZsegFzCS57ML13E6MlQa wvdGFibGU+PGRpdiBzdHlsZ P7dZlWg j0ljd0MoQMdcR2TaZPQwGQh iHtw9PLTyGAE8kRL6iD2hDD ZuOXasq9A5aKP3W0OyuhJpu g9nj4ke IONoRXnqC36sgJGub5O4YXE dnUI2PFKwyDpcSeLhoK99Jk c+MYYbzTdyl0OzMhtze2xxn 1qreTc0 RgMvYDOhmhSioIiwIJS3y2O mUd57I44ySHhnMEOePGEoJW GdSAFmcIkipu5zvT8rOf9+P GNvbCB3 wVI5sH4jQTEuBtR7DYwqM84 8NdSwpBBxZpexa0tux4silB w1XaLvMKNmurUobCllOPR7x 3ChBl94 B31pWSkmRLYcHRIjFZWgOHL gqDjtsz6qmA5dFt1+PC9jb2 wowz06uZ59uJD+UIUpSZW8m WxlPSdw DORzzF7qOAikLsT4NDFqYtT usN35tIYyPPmrRt2zdGnjoI yiCH0xTKSiydhky671ZmJct 2xkIDEw iCMfPGubJOH5U86xi6G2QTJ qYTNrIRH2zBL3hX6cbOvkli ogbGVmdDsgdmVydGljYWwtY TloK212 IHRvcDsnPlBhdGllbnQgTmF iCXx6Q0VvPfc2SYYmhVegYU 6cbWQaNCgoEo7jxJkceCzaR O6oGTRm mljhi756GpXyy9qyODHmsXZ nOSsqYIM4N80kd4F4TIRuXG EeOMP8rEO6uC8qgHmpirilv GVmdDsg moGgzBmiDWysGOaiB485ITH giNfpDqVenhNfUZRlcJV8AC 51GI53zLZao0X9oIH1K5TzA GRpbmct rttcgSE3KOZbTJTqxJ94Dy1 fkBkcNm6iYDLgJGL6NUXazP GfS1EgcG2fGdXaGNSpHDNlE 3RleHQt XLlhC347YUvxXfI3OBHiqoO pZ5GiCAInbWudRzH4y9A8Af 5QW9S2EK47DS87iBUbw3J5l TN9Q4Sx FBGsbgwpyujtsRF2HYQfJKT rpQ67Kr4cqYhvZl4dGPFfUI Y8PKRkwMXrY3HyjJ0zEqYtG DAwMDAw F1LnpJXuRDjhA722UTkjQeE 6QGJzhdViC0ObRTNwnIidDk O2b4U2Vp2RCUy6FC37US64j LRjs9V1 hOB5K4UdMKIfwrthzdnztQO 6FBNyWOPppX12Kf9xrXfuDy 0bBVQsSNF4CTCjxAKeZ5Rfi P2sFdUg JRCgAMSdG0HnsXCkJIuoE07 4GDoxVwF8OVOnlqAlX8DvAH PufTwzFiX1m4K6Df8WOUJjB I46HCL7 jEV8CC99SO62J9WkBpebyRZ ibGU+PHRhYmxlIHdpZHRoPS rbLBGfDyAofHtlVQ3cQe0rI GVyLWNv xHariCYaZcUfr4lzQSYkGYe cXY7zhYfeG1VhwRY9DGCln8 b6Oe64Q40gE5FmyHA+PGNvb NV4yVN2 wI7iWzOkSjT1KZarU115IjX rrGYaOxmzs2hys8dxiSg4Hz W0LPShzaMpxLanFYU9g2StU v59R33h IHdpZHRoPSIxNSUiIHZhbGl dop3tzJ5wSb2+NOGylIT3sH F2iM5wLqGzBiM3IFglO556V nRvcCIv Ggpeb1yvm1jgmUe3ThEbTIJ fajTdeZtkKYH0a8BcKj19K1 LudEokp2RcJwx8vt26lUMwc 3I5bMJ9 J1GiCYJlxbpybADkdPuxRU4 iPAFlexcyAIRpcO3wAZXtC2 n2QgMkNfV2TFsxC9YqadQ9W DEwcHQg NKshENG4L39sj7U5USHqUJZ vZBQ6nNA8rH0ksGyysdbkzJ VmdDsgdmVydGljYWwtYWxpZ 246IHRv uXghOXRjtS1rHNXohXEwzTo uBI2mVWRhwhxdNbgWSyraAG lVPrEAOH65NS44zUNnq3J0b YV2O7Pi SZWbeihhtigzwWS7DAKpOOG taI08eHQqVSdwYk7to4V0y1 03DQQhBZFcnA23Xr5ljRmbR TBwdCBU oR9dlaiow2ghjejnXfUpZYY uORo1GSg9XYEatMbrQpFaAP R8ZqB0OGH3vYAghK8txOnfr qdifF4l Oyc+KPTrPiLkJLh2THsbqIM +KFYpKPI8xNulNVyeGPAipS 4nSGNeY6o4TxSpOeH0SDpaD 3BhZGRp uqrdFx23uN5sOtQcCwC7UEd mF5ScelM3UUNpnGCwWElmAH R5P46iv6O9KOFqSTGoSTH0g DG9rC3k bGlnbjogbGVmdDsgdmVydGl wPXflZPesL788BPJgiVaeQl X4EAbdDSFwJH93WU45qBGlb 4W6iFB9 G6IdLAElnhtrmwsgkYR1BQJ wAOUxjD92xUXcFEbwFi6yn7 J2m708TGDhZGPtbY88Ey8bt DogMTBw xDHFzR6ivxhmx4xhyrbbKkO fLIFkWNr2ZPr4ADHsoTreAa IpROD2IoP0NEQ0cPWxmO0dk Glnbjog tA4cVdy+TWFsZTwvdGQ+PHR cDSM1eJsiGYhyFSTnbK6wRW NaY5x4EwAeHzT8RIapO7DvF GRpbmct Oi63nF7eMcCaFrU6HQlwD1K wwlU9DNDzcOSfJGauWPK0V2 1kd6U6RVIvAIHvFVP1eRS4z U7cnKss bjogbGVmdDsgdmVydGljYWw eCTaeS145SZVjkCimXzEaWK BrMN5yhPktiUF+CJ46yy48W 3RhYmxl Fgp4TTCbIFO0bQJ8lH8zUMH oPVxtj5D6gGH4R0AjnuEhut 3sr1jvYIPtDQoxM88uqIDky 3G2FIHf hBN5RTXbnLcjUtVohR46Qze +WGOfwHwow7XjMirla9ieh9 bhnMw5GoDmXFHdrnThjZlzU US4c2Zd Wo34W59pKEbyYZIjMTUcORG vMTEcxKmuvo5axQ9wPe4+PG DlySW4eDV3pJ7uTfEsAyB9K XoaQ956 JwArmQCdTkhej4wny6djqBc 7FmFwDQCjbrAgqShpJCP3n7 HaOx62S6CmxQfpf3LaJyv6b u30yCGs a7P5nED2J1SfHQUsvzqraQJ xdQiuKK7zVGAnunjtOYNccY 9cXHKpT4o7MgHlRuP8BUuxR 9ZesvT6 TSMchEFmQVUnqCDTwC3aiah fy0uyoejuYeKeOESmDYf7JE o0DZHboJhkRpEiITD2QqE4O RG3dQNc mH1hwEperduagD9vTti+UGh 1o8hhyCGcUI1caNF3PK73SO 82hRZpq7X5vKT3Z2QvPYEic mctcmln mUS0TKTlBLAekI11Lo9ofOc aUl4zHJRgAAJ9VERltPOxO9 MpyK8fHqPdIXVpWNVpB3Gls HQtYWxp K423NIwiNuT4IKNxnoGdY9Y jZFThxFrfKoH4g2N5Gq4FDQ 84UY21ZK42gTEbe8W7nRT6R 3BhZGRp mjnzogddmKZ6FRYuCBRcvE7 0Ls9qlFfzAq9mXLTrQWM2DL CntNOaT6SfwD5fBoAyGEGqX TIuS0Ul qNKeZCqkZ762FTkfTyB1RFH zrqHcR9WyMVKveJskPkT1v2 Q4Tg3DNp22OK53SU71yQGfz 9L9hWX5 P2CtRZJigaergmbjbPC8HKG mXCCftB07Kt6shPvwIm1dVW SaVUL8HURsnQRrL4MhsG1dG iAjMDAw NNWrS5WgmISuRLykJ895DMp cHoZ1RENbdxAfA3OdUVUqfQ bjTsY9t3G7Hp4DQZjgpas6J 3RkPjwv dHI+PF04ISTfJE05kDRdrKJ oj7fzaEc9GjJnWRAkUJK3dD urPPnft8MaVKTsE15wyGJdl 6X4HWEb bGxh (more content not included)... Normal [facility] ED Note-Physicianon 05-16-20 ED Note-Physician Basic [...] and congestion, 118 mL, Refill(s) 0, [id number], 180, cm, 05/14/22 19:45:00 EST, Height/Length Dosing, 79.5, kg, 05/14/22 19:45:00 EST, Weight Dosing brompheniramine/dextrom ethorphan/PSE, 10 mL, Syrup, Oral, Once, Stop date 05/14/22 22:41:00 EST, STAT, Start date 05/14/22 22:41:00 EST Influenza A&B Ag Rapid COVID Antigen ([facility] [place]) Medications Administered Given Bromfed DM oral syrup, 10 mL, Oral Disposition Plan Patient Discharge Condition Stable Discharge Disposition To home Discharge Prescription List Prescriptions No active prescription medications Follow-up No qualifying data available Attestation Patient seen and evaluated by the physician real estate executive assistant. Attending physician was present in the emergency department and supervised care. This visit was performed by both the physician and an APC. I performed all aspects of the MDM as documented. This report was transcribed using voice recognition software. Every effort was made to ensure accuracy, however, inadvertently computerized wire chief mistakes may be present. Appropriate healthcare PPE [...] Historical Cholelithiasis (more content not included)... Normal [facility] Comment on above: Result Comment: Elec tronically Signed By: Bandar Pope PA-C\.br\Date and Time Signed: 05/15/22 02:11 EST\.br\Electronically Co-Signed By: Brandon DO, Jose S.\.br\Date and Time Co-Signed: 05/16/22 06:44 EST Physician Orderon 05-16-2022 Physician Order [id number]#1.00C D:127 Normal [facility] Discharge Instructionson Discharge Instructions [id number] CD:127 Normal [facility] ED Clinical Summaryon 2021 ED Clinical Summary (Inserted Image. Claudia ble to display) [place] [id number] ED Clinical Summary Person Information Name: CHRISTIANO ZHENG [place] Age: 26 Years : 1995 Sex: Male Language: Micronesian PCP: Lelia Franklin NP Marital Status: Phone: [phone] Visit Id: Visit Reason: Sinus Pain/Congestion; Throat [...] 05/14/2022 22:51:08 05/14/2022 22:51:08 05/14/2022 22:51:08 ADDRESS: [address] [place], [place] [address] [facility] [id number] PHYS DOC NOTES: MEDICAL INFORMATION: Prescriptions Given: New Medications [id number], [address] [place] [id number], [phone] brompheniramine/dextrom ethorph/phenylephrine (brompheniramine/dextro methorph/phenylephrine 1 mg-5 mg-2.5 [...] Lelia Franklin [address] [place], [place] [id number] [employer] In 3 days 05/17/2022 DIAGNOSIS: Upper respiratory infection Normal [facility] ED Patient Education Noteon 05-15-2022 ED [...] these instructions at home: Medicines ? Take mchv-ust-rqvtcyd and prescription medicines only as told by [...] a condition that needs treatment. ? Take pcog-qou-yeybxsf and prescription medicines only as told by [...] Reviewed: 06/23/2019 Elsevier Patient Education ? 2019 [employer]. Normal [facility] ED Patient Summaryon 022 ED Patient Summary (Inserted Image. Claudia ble to display) [address] [address] Patient Discharge Instructions Person Information Name: CHRISTIANO ZHENG Age: 26 Years Arrival Date: 05/14/2022 19:32:44 Discharge Diagnosis: Upper respiratory infection Primary Care Physician: Lelia Franklin NP Provider Information Primary Provider: Jose Taylor DO Advanced Rn Triage:Bandar Pope PA-C The exam and treatment you received in the Emergency Department were for an urgent problem and are not intended as complete care. It is important that you follow up with a doctor, nurse practitioner, or physician?s real estate executive assistant for ongoing care. If your symptoms become worse or you do not improve as expected and you are unable to reach your usual health care provider, you should return to the Emergency Department. We are available 24 hours a day. CHRISTIANO ZHENG has been given the following list of patient education materials, prescriptions and follow-up instructions: Follow-up Instructions: With: Address: When: Lelia Rigoberto [address] [facility] [address] [place], [place] [phone] Business (1) In 3 days 05/17/2022 In the event that this physician does not participate in your insurance network, please consult with your insurance company to find a nearby participating provider. Patient Education Materials: Cough, Adult A MESSAGE TO ALL PATIENTS REGARDING OPIOIDS PRESCRIPTION OPIOIDS: WHAT YOU NEED TO KNOW Prescription opioids can be used to help relieve mazeodcm-ny-rqgnbz pain and are often prescribed following a [...] be struggling with addiction, tell your health senior care assistant and ask for guidance or call [facility]?S National Helpline at 4-121-813-VELD. d Source: [place] Department (more content not included)... Normal [facility] Influenza A&B Agon 2 Influenzae A Ag Negative Normal Negative [facility] Comment on above: Performed By: #### 1 [id number], [id number] ####[facility] [address] [place] [address] Influenzae B Ag Negative Normal Negative [facility] Comment on above: Result Comment: Test sensitivity and specificity vary for age group, specimen type, antigen types, and prevalence of disease. Test results must be evaluated in conjunction with other clinical data available to the physician. Individuals who received nasally administered Influenza A vaccine may have positive test results up to 3 days after vaccination. Performed By: #### 1 [id number], [id number] ####[place] [address] [place] [address] Insurance Correspondence Off iceon 05-15-2022 Insurance Correspondence Office [id number] CD:127 Normal [facility] Physician Orderon 05-15-2022 Physician Order [id number] 0CD:127 Normal [facility] Rapid COVID Antigen ([facility])on 05-15-2022 Rapid COV Int NEG Ctl Pass Normal [facility] Comment on above: Performed By: #### 1 [id number], [id number] ####[facility] [address] [place] [address] Rapid COV Int POS Ctl Pass Normal [facility] Comment on above: Performed By: #### 1 [id number], [id number] ####[facility] [address] [place] [address] SARS-CoV+SARS-CoV-2 (COVID-19) Ag IA.rapid Ql (Resp) Not detected Normal Not Detected [facility] Comment on above: Result Comment: The [employer] Veritor? System for Rapid Detection of SARS-CoV-2 is [...] or revoked sooner. Performed By: #### 1 [id number], [id number] ####[facility] [place] [address] XR Chest 2 Viewson 2 XR Chest [...] M.D. Transcribed by: MARY Technologist: ANASTASIIA Normal [facility] Consent for Treatmenton 04-19 Consent for Treatment [id number] D:127 Normal [facility] MICRO OTHER TESTSOrdered By: Rojas Yen on 05-14-2022 Influenzae A Ag Negative (05/14/22 9:30 PM) Normal Negative [facility] Man Sero Influenzae B Ag Negative (05/14/22 9:30 PM) Normal Negative [facility] Man Sero Rapid COV Int NEG Ctl Pass (05/14/22 9:30 PM) Normal [facility] Rapid COV Int POS Ctl Pass (05/14/22 9:30 PM) Normal [facility] SARS-CoV+SARS-CoV-2 (COVID-19) Ag IA.rapid Ql (Resp) Not Detected (05/14/22 9:30 PM) Normal Not Detected [facility] Rapid COVID Antigen ([facility])on 05-14-2022 ADMITTED TO INTENSIVE CARE UNIT FOR CONDITION OF INTEREST:FIND:PT: NO Normal [facility] Comment on above: Performed By: #### 1 [id number], [id number] ####[facility] [address] [place] [address] EMPLOYED IN A HEALTHCARE SETTING:FIND:PT: NO Normal [facility] Comment on above: Performed By: #### 1 [id number], [id number] ####[place] [address] [place] [id number] FIRST TEST FOR CONDITION OF INTEREST:FIND:PT: Unknown Normal [facility] Comment on above: Performed By: #### 1 [id number], [id number] ####[facility] [address] [place] [address] HAS SYMPTOMS RELATED TO CONDITION OF INTEREST:FIND:PT: YES Normal [facility] Comment on above: Performed By: #### 1 [id number], [id number] ####[facility] [address] [place] [address] HOSPITALIZED FOR CONDITION OF INTEREST:FIND:PT: NO Normal [facility] Comment on above: Performed By: #### 1 [id number], [id number] ####[facility] [address] [place] [address] STATUS:FIND:PT: NO Normal [facility] Comment on above: Performed By: #### 1 [id number], [id number] ####[facility] [address] [place] [address] RESIDES IN [facility] C[facility] SETTING:FIND:PT: NO Normal [facility] Comment on above: Performed By: #### 1 [id number], [id number] ####[facility] [address] [place] [address] Ambulatory Visit Summaryon 1 07-12-2021 Ambulatory Visit [...] When: Where: [address] [place] [phone] Medications What How Much When Why Instructions New brompheniramine/ dextromethorphan/ PSE (Bromfed DM oral syrup) 10 Milliliter By Mouth Every 6 hours as needed for for cold symptoms Acute URI Duration: 7 Days Pickup at [facility]/pharmacy [facility][id number] Unchanged cyclobenzaprine (cyclobenzaprine 10 mg Tab) [...] physician if questions or concerns Pharmacy Information [facility]/pharmacy #[id number]: [address] [place], [place] [id number] [phone] Allergies Dilaudid (Hives) morphine (anaphylaxis) oxyCODONE (Nausea) [...] 1 years old. ? Live in a usp. ? Travel on cruise ships. What are [...] replace imp (more content not included)... Normal [facility] Family Medicine Office/Clini c Noteon 05-12-2022 Family [...] for 7 day(s), 280 mL, Refill(s) 0, [facility]/pharmacy #[id number], 178, cm, 05/12/22 11:45:00 EST, Height/Length [...] When Contact Information Rigoberto CHURCH, Lelia Palmer, [facility] [address] [place] [address] [phone] Additional Instructions: Patient Education Viral Gastroenteritis, Adult [...] q6hr, PRN (more content not included)... Normal [facility] Comment on above: Result Comment: Rebeka trosurendraally Signed By: Angela Pradhan.casimiro\Date and Time Signed: [...] 1 years old. ? Live in a usp. ? Travel on cruise ships. What are [...] and water are not available, use hand coat ironer hand. ? Make sure that all people in your household wash their hands well and often. ? Take skyr-slg-zfwmpqa and prescription medicines only as told by [...] to person (more content not included)... Normal [facility] Coding Summary.on 05-10-2022 Coding Summary. CD:[id number] Gh0 bWw+PGhlYWQ+SC6EBIEyX31 lwOJvkY9YX1fKNK9YGTRMKW SCSM7GJQ6luGW2HYfcJ8Uoc iAv VrgdkKBcLM72MWk2GUU6uYn bAOmrtI2atZDsX1r3WfKuVU 56kV36CLbfADKaKaK8ZnWnm jsgbWFy U4gaTqRpjRHpSqm+PHRhYmx lIHdpZHRoPScxMDAlJyBzdH btSZ8mGl7zQKKjVPZyiRsre HNlOiBj k8ftYGThLUpiDS4edDwzR0R ccSP8IFCcc9p1Ui98sTZ+PH MdYZE1bEihKQrys796ZcLgi 9pcOHS3 tMDfLQhbDOL9P49vp9B0GDW tCGTvKEI7dIW8bZ5meDrbcp epN2BbyULgDtF8DMV1zWPai R2gqMdg znkqdK4pYax+C23NKV4GBQO TNI3FSnb1C9XzVfslhQS+PC 40EJBzDQ65iHTflFScu7lar Vu6QlOi VFAgEQV2fNffFYdvl0SlPHT hF17ouBJzk6R4GCApnViaaE MvWqYijQO8jY2oWHzugdngy 2hvdzsn Crpdx9xwui22dQ13Y97hOBn xNPAeTWG1EXEyXMYoeDuupx 8gtQ7uOf5+VIzgf4vuz1iln Sa0KzPv GIMprzPdeKwrZAD0v6LrEj3 1Y8TtiBlml1RlYhi0hl04nT Ilk2H4tSD0OPugXPGymK3oX WxlZnQ6 TVHgYuBktT30hEOiFAumSd7 bkZjwmQrzSQ5nQXDrnzyiSF XzhU2eFGMfzZVaqAjcNQ4zN TBpbjtm r943SaFgWJR2VOElyEIxT6Q zrD2pEjWpNNGiCSYzQ6TujI OxLDgjF267GWlbLjU0VNUqa uNsG9Na DPNliEtiLrC1d1A6Uf4Tg8E pdbnyCLY2ZAwtNXFqUaUaIp KjGmH7C7TsVkq7TDFpvHfrY X7lO7Jw XRIirdsoogwvpBD5YRPsMOJ zrP78jRSuDGnqBm2dx4B3g5 96RMPmEHXcrT82Wo6fjAufJ TBwdCBU tU7ldtphm4nkqitxKdXsJFA sWRp7XAu7VPNviXxyKiBxYS M0UdN3MDY2oFVacR7gwVbnr uorwI6w Oyc+A00naK6kSAO4ZPG2esj sUEMfthChVU04CY76O9RoPp wvdGFibGU+PGRpdiBzdHlsZ K0rRpFx v9pkf4VaWMjrZ7OyPVXlHNl uQfy6BBPsTJN7fIW2bM6bMU WgAJqna0E3iGK4F4WnjqXyf m7tx4ec DNVdMNpoV03fkLUmo2T6YWT reTQ2SSJflQcsLtUnyK12Wb c+VQBidQpul9YuEbdsc2ere 5mixOu7 ZgFzWCZpvpNztVknUMZ3s9I kQi66F54dVAiwGLGxBXOjVN QeYXOfhPaxsv0yrQ3aGi2+P GNvbCB3 vBC8jQ3xDGLbXsA6GGbpL76 8AnWjcVZpGtgmu0hwl8pxwI o2AmBsMSDbriFbkMfbOAI6o 5SeRw60 T72wKWfuYWStUBZpUTTkSWK cqUvdis7fnA4wHj1+PC9jb2 vedj85xU84iAB+AAZdTPG4t WxlPSdw EYQbnG8lUGjdOoO4OZYiSsT beA85rAIxHPyyDw3ahAhdiO laVQ0hLWVgmayep456LpMth 2xkIDEw zTQfUKzjKTO7Z70rs3O4IUN yQHScLFE9mQB0hI3bxLustu ogbGVmdDsgdmVydGljYWwtY GinT950 IHRvcDsnPlBhdGllbnQgTmF kVJg1Q2FdCfi2JFXdkCzdOQ 4ecLFuDQzrKp1jpQuetUmgN X5tXPFw tqelj754VtXxk5pdTKZfrUC tASjbKEC5V63ri5C5ZUCbBF GqVQT5kRS2fO7xgKmcgjrbz GVmdDsg cfHpcFzcEMbkCWwdD036XKX joVhvDoTazkKfWGUluMV2GW 41DQ78cMRuj1V9kRP5W7FvC GRpbmct gvumaUS9XRZmHRXznP44Nu2 kxRwuJy1zODXiILT6SHPknP OhG8YpeX6wDmRaYWDtZUIdE 3RleHQt LAavW682YTomElV1AWCpzqW rN6FeSLAmvZiyXnG0w2A4Yz 5MH9W4AF39KU08rYPak4U4i VS6Z9Xq QMKjkcmdamunnXC5TCJpIEK mxI80Mu6kwUkyZa1wSAEsWJ J5SZJrhDPoT2VjaA3eCmKwG DAwMDAw Q2ZpmBGnPCdeA131CBvyMcF 4RIFfjbNaG0IrUJUyjShxGu B6u6Q8Uz5XHWf0AP69NO24i IUjd9X3 eHP8C7OkQYQnsbpqldblfGP 3AYBoWQSifY34Pw1fcPwgIf 1hQBPhOJW1FLKvfLYfC4Tkz E2jPtJp BXCeCZYpC0AtcRXpOHosZ23 2HIutLkX4DLIerfVaX8JhEI FjnQmaIrX1p2F4Bw4FEGYjR K60WPT4 gJS9BH57ON93P4JcFcbeoCF ibGU+PHRhYmxlIHdpZHRoPS viCDEzHlFyrKllPB0oAt5cN GVyLWNv dVhmrATjAjZtq0euSPPvSDd nWI7noRauC7UapVJ8BGIpj1 y5Ym00O21aE2JccKX+PGNvb LQ2vYL5 tV6hAvBwNzF0BTviX622SgA wrPIcOhwcr0ier7qylEv9Kz U2SQXhwyFcaGtrNGE9i3VrJ u98F45f IHdpZHRoPSIxNSUiIHZhbGl oim3fgL2wSf3+PSIljYF1bF Y3xV2pMkJqMzO3UEexH235M nRvcCIv Nzmmx2aeg3vxxOr5YiWjZIJ jpmScxQubWAZ4c7DyXd48W7 IroOytl3EhHrr8uq82dBEbo 4J3zNF9 Z2FoSBPorifkjWEaqCuzHV1 xDUCxdiubWPNdsE2fHXPhD3 y3JpVuEnE2WUhxF3DevrW3G DEwcHQg LZipKDF8R34xk1B2ZCBbCNR nDSZ8kQO0xT9ohTtqhznvpI VmdDsgdmVydGljYWwtYWxpZ 246IHRv rOnyNQSpbL6mNGZcfKVppVd gHJ9mOYEoheoiGfxORemvGO lPUhBKOW73VQ49cLThj9Q4v NX4J7Kf QJInlotnkcwdqBF0VQAoINY iiC39aZPgSQpmLq8mm4C6l2 14QOYxDCDmmE98Ik8niDbwE TBwdCBU qB9pzbirc1hogqyhTwTdRTW eUCv2THc2CKHivNazNpCaIU F9WqJ3IJB6zQYubY5loTsqt nsrdB6r Oyc+FFKwGeEdMIo9KPxouKH +QMNmFUW6sEmoFZyySEUeqI 9nEEDwY6i4FtXiFjA3MQsxP 3BhZGRp scscIn39lR8kJdVkVkK3KAs jO3MwhbP3VIZwjLLjSEhlZV L5S88og6K9TGUlZQYhLTD4j LH7sW3b bGlnbjogbGVmdDsgdmVydGl hYRhlDJfrF197PQQtiNlvIc L7QFneLBKnZE33YJ99hBZls 5I7lFR8 V6ZzJXAcffllipgsxDY6ZSK vBPNisT20fANwEBxtTv2ol1 Z4e533KKGdDUQqvG47Vi1xl DogMTBw wJISqQ6mgjpbf3jkkarpKsB fNOPhMHl6KZx9FCUvpZlkMe QkRPO9LrC7LRS5pMTuqJ7ai Glnbjog gZ8sYar+TWFsZTwvdGQ+PHR uALL7eZniGBzzHIHdhD0sTK ZyH2c1AhMzSfH3WDfgI4MgA GRpbmct Zy88dJ1wWeDyBdB6EOzyD3H mrdH4VQJndRCvMDzxDQR3N1 4rs9P1JXVvNTNqTRR8mTN3t V6xqKdu bjogbGVmdDsgdmVydGljYWw fCQbiU622UIApfOhhDxLiaD 4gTWFuYWdlbWVudDwvdGQ+P N46wn46 L8HnVnmgAvc0OUNbXQH2pTE 0uA5fSBUaTWham6W9lQW2P2 VqmjAwxy0hi0axZEThQNroI 29sbGFw u9B5RFSwqYN4CVEztSvpZsL viC40Chz+JKSyaOvan3UuIh zpi2uol6zpjZc4UtCtXBByd mFsaWdu MAH1t0LnYc61M95pVXjwZPJ rTMSaPFAsBOHzgDurok8ivK 9wIi8+BEYkgDU6nGI2fF1qE jAlIiB2 HEmfG281SnPbtDMxCqttl0x fh2utoCo7NyIyPBXmqsLvqK paLGS6w0UhJw44O1YqjZkiy 2RjHsi5 lu28dSXcl2Q6yTC0M1EiPZQ nwpzpyVNzdOfaHM3aFHTjmb sfFPYfxL9qUVWdT2e6NfGmA uH0BDrg I6KtibE4WLLywVGvTMIjkYC JnJ2hrhrpf7xiqsptIcFmFZ EyTKv4VMl4XDQgaZtkNzLwC IS2XlC1 XJP9nZIgwQ3luJcggzaiqF5 wOyc+CGv7j6ftaOVpMI4ucJ I2OP44HY07gEHsa5U1uUC1S 3BhZGRp wqtchxvrvIX9ZQCiFHEkwE4 9Qo6qnLwaCn4cTAIqUKM4YG ClaUJxS5XfiK9gFxVrOMTxW TOdY3Cg jSJiOMeiC366QAbiWmG5JPC pemCbN1KdDGNoeFcmVzF0n2 V6Eg4ZZV42KN36FI82bHPko 9R7fTB1 H8IlSAFwivrzwjjerUC6ERD bQYGgwK37Tr4qcMnlTu8nQR HlGKY2AZFbkSYaJ5JckA9aP iAjMDAw BGUtW2IviUDgSFfjB809OHw vCaM4SLRkqsUrV5BbRVVowQ uaJvX0a5D9Gh2EQv12EW52O R69hJZn b5Y3fIN1Y7UjRBPdtpwbeps niEI3XDPlANTmeB86Wy7hjZ zbZp1cCGRqTVY5HIDyxRRwX 9EmlE7z TvPjAVDyKTXwN3HxeFKgYIm rB165NOnzFlU8QQJxdtNqH9 CmAFKueLzeWeH2w2O5Cc4VE Xllcjo8 K6JqMnwwcJG+EM95AWUhBW3 7wEFloWIep0ufgVu3BiJsPZ WqQBG3bAwjKNzbd1LvEOXlP 29sbGFw c2U6 (more content not included)... Normal [facility] Consent for Treatmenton 04-19 Consent for Treatment [id number]#1.00C D:127 Normal [facility] Consultation Noteon 05-08-20 Consultation Note Patient: [...] full course of physical therapy here at [facility] within the past 6 months without [...] All Problems (Selected) Anxiety / SNOMED CT 11419689 / Confirmed BMI 23.0-23.9, adult / SNOMED CT 1591051798 / Confirmed Cervical radiculopathy / SNOMED CT 131088938 / Confirmed Cervical spondylosis / SNOMED CT 0450230409 / Confirmed Constipation / SNOMED CT 93312828 / Confirmed after GB removed Difficulty swallowing / SNOMED CT 60541822 / Confirmed Enlarged tonsils / SNOMED CT 377518941 / Confirmed Family history unknown / SNOMED CT 0291094372 / Confirmed Former smoker / SNOMED CT 37298663 / Confirmed 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 / Confirmed Hospital discharge follow-up / SNOMED CT 3305940669 / Confirmed Insomnia / SNOMED CT 789463271 / Confirmed Medial epicondylitis / SNOMED CT 08174389 / Confirmed Muscle spasms of neck / SNOMED CT 0077985811 / Confirmed Non-smoker / SNOMED CT 36766765 / Confirmed PTSD (post-traumatic stress disorder) / SNOMED CT 57306900 / Confirmed Screening for cardiovascular condition / SNOMED CT 246238422 / Confirmed Splenomegaly / SNOMED CT 22917970 / Confirmed Stomal ulcer / SNOMED CT 6738907582 / Confirmed Testicle lump / SNOMED CT 085239512 / Confirmed Histories Past Medical History: Active Constipation (67725684) Comments: 11/13/2019 EDT 15:27 EDT - Raquel Dickinson RN after GB removed Resolved Cholelithiasis (171597557): Resolved. Comments: 02/09/2012 EDT 1:40 Afia Dillon RN 2010 Sleep apnea (669641984): Resolved. Family History: Clotting disorder Mother Hyperthyroidism Sister Procedure history: Cholecystectomy. Comments: 02/09/2012 1:39 Afia Dillon RN 2010 Hernia repair (39913529). Splenectomy (956086525). Social History Social & Psychosocial Habits Alcohol [...] (MAY 08 14:16) DBP 77 mmHg (MAY 08 14:16) Weight 79.8 kg (MAY 08 14:16) BMI 25.19 (MAY 08 14:16) Constitutional: No [...] pain wi (more content not included)... Normal [facility] Comment on above: Result Comment: Elec tronically Signed By: Jenifer BOGGS, Sen Dodson\.br\Date and Time Signed: 05/08/22 14:44 EST HIPAA Forms Officeon 022 HIPAA Forms Office [id number] [facility] [id number]#1.00 CD:127 Normal [facility] Legal Correspondence Officeo n 05-08-2022 Legal Correspondence Office [id number]#1.00 CD:127 Normal [facility] Legal Correspondence Office [id number]#1.00 CD:127 Normal [facility] Office/Clinic Note-Physician on 05-08-2022 Office/Clinic Note-Physician [id number]#1.00 CD:127 Normal [facility] Patient Correspondenceon Patient Correspondence [id number]#1.00 CD:127 Normal [facility] Patient Correspondence [id number]#1.00 CD:127 Normal [facility] Patient Correspondence [id number]#1.00 CD:127 Normal [facility] Patient Correspondence [id number]#1.00 CD:127 Normal [facility] Patient Correspondence [id number]#1.00 CD:127 Normal [facility] Patient History Officeon Patient History Office [id number]#1.00 CD:127 Normal [facility] Progress Noteon 06-28-2020 Windows Server Support Technician Authentication Interface Message Text Email Communication from [employer] This email is from an external source. Hi, Thank you. We will cancel the test for you. Have a nice rest of your day. Warm regards, Shelbi Arceo Logistics Vice President, [employer]. [address] [place] [address], [address] [place] [address] P: Ext: 2001 F: Inc [email or web address] om Original Message From: Laura Tracy [[email or web address]] Sent: 06/28/2020 11:32 AM To: Inc Cc: Inc Subject: RE: Order ID [id number] - Test hasn't started Yes, thank you Laura Tracy MD [place] [address] [email or web address] From: Shelbi Arceo Sent: Sunday, June 28, 2020 2:32 PM To: Laura Tracy Cc: Inc Subject: Order ID [id number] - Test hasn't started This email is from an external source. Ellie, Thank you for the update. In that case, would you like to cancel the test? Warm regards, Shelbi Arceo Logistics Vice President, [employer]. [address] [place] [address], [address] [place] [address] P: Ext: 2001 F: Inc [email or web address] om Original Message From: Laura Tracy [[email or web address]] Sent: 06/28/2020 6:49 AM To: Inc Cc: Inc Subject: RE: Order ID [id number] - Test hasn't started I have tried to reach him several times and he has not called me back. I think we can assume he is not moving forward with testing. Laura Tracy MD [place] [address] [email or web address] From: Shelbi Arceo Sent: Sunday, June 14, 2020 6:28 PM To: Laura Tracy Cc: Inc Subject: RE: Order ID [id number] - Test hasn't started This email is from an external source. Ellie, Thank you for the update. We will wait for your response to see what we should do to move forward. Have a happy new year! Shelbi Vazquez Specialist, [employer]. [address] [place] [address], [place] [address] P: Ext: 2001 F: @[email or web address] [email or web address] om Original Message From: Laura Tracy [[email or web address]] Sent: 06/14/2020 10:34 AM To: @[email or web address] Cc: Inc Subject: RE: Order ID [id number] - Test hasn't started Hello, I ve called and left him a message asking him to call back. I will let you know if/when I hear from him. Happy New Year! Laura Tracy MD Clinical Needle Grinder [address] [place] [address] [email or web address] From: Laura Tracy Sent: Friday, June 05, 2020 9:07 AM To: Shelbi Arceo Cc: Inc Subject: Re: Order ID [id number] - Test hasn't started I am out of the office until 06/14 and will look into this when I return. Thanks! Laura Tracy MD Clinical Genetics [facility] From: Shelbi Arceo Sent: Thursday, June 04, 2020 7:10 PM To: Laura Tracy Cc: Inc Subject: Order ID [id number] - Test hasn't started This email is from an external source. Hello, I hope this email finds you well. [...] would be appreciated. Thank you. Patient is A.IJurgen 1995 Shelbi Colindres Logistics Vice President, [employer]. [address] [place] [address], [address] [place] [address] P: Ext: 2001 F: Inc [email or web address] [email or web address]:ref Normal [facility] Progress Noteon 04-13-2020 Windows Server Support Technician Authentication Interface Message Text This is a [...] spleen; splenomegaly may become evident anytime from early education teacher to adulthood. Individuals with hereditary spherocytosis may [...] Dopplers, for added reassurance. Recommendations and Plan: [facility]'s Red Blood Cell Membrane Disorders Panel; will have saliva sample sent to home address; Charles will contact Christiano within 72 hours of receiving his sample if estimated kin-xq-apjgkw is >$100. Follow up appointment: Will call Christiano with results of the above Counseling and/or coordination of care (face to face) was greater than 15 minutes which is more than the 50% of the total time of 20 minutes spent on the encounter. Normal [facility] CBCon 02-06-2020 Erythrocyte distribution width (RBC) [Ratio] 14.7 % High 11.5 - 14.5 [facility] Comment on above: Performed By: #### C BC ####[id number] [place] [address] Hematocrit (Bld) [Volume fraction] 44.0 % Normal 41.0 - 52.0 [facility] Comment on above: Performed By: #### C BC ####[id number] [place] [address] Hemoglobin (Bld) [Mass/Vol] 13.1 g/dL Low 13.5 - 17.5 [facility] Comment on above: Performed By: #### C BC ####[id number] [place] [address] MCHC (RBC) [Mass/Vol] 29.8 g/dL Low 32.0 - 36.0 [facility] Comment on above: Performed By: #### C BC ####[id number] [place] [address] MCV (RBC) [Entitic vol] 96 fL Normal 80 - 100 [facility] Comment on above: Performed By: #### C BC ####[id number] [place] [address] Nucleated RBC/100 WBC (Bld) [Ratio] 0.0 /100 WBC Normal 0.0-0.0 [facility] Comment on above: Performed By: #### C BC ####[id number] [place] [address] Platelets (Bld) [#/Vol] 1277 10*3/uL High 150 - 450 [facility] Comment on above: Result Comment: Plat elet count verified by smear review. Performed By: #### C BC ####[id number] [place] [address] RBC (Bld) [#/Vol] 4.56 x10E12/L Normal 4.50 - 5.90 [facility] Comment on above: Performed By: #### C BC ####[id number] [place] [address] WBC (Bld) [#/Vol] 10.4 10*3/uL Normal 4.4 - 11.3 [facility] Comment on above: Performed By: #### C BC ####[id number] [place] [address] BASIC METABOLIC PANELon 08-06 19-2019 Anion gap [Moles/Vol] 15 mmol/L Normal 10 - 20 [facility] Comment on above: Performed By: #### B MP ####[id number] [place] [address] Calcium [Mass/Vol] 8.8 mg/dL Normal 8.6 - 10.6 [facility] Comment on above: Performed By: #### B MP ####[id number] [place] [address] Chloride [Moles/Vol] 104 mmol/L Normal 98 - 107 [facility] [place] Comment on above: Performed By: #### B MP ####[id number] [place] [address] Creatinine [Mass/Vol] 0.55 mg/dL Normal 0.50 - 1.30 [facility] Comment on above: Performed By: #### B MP ####[id number] [place] [address] GFR- AM. >60 Normal >60 [facility] Comment on above: Result Comment: CALC ULATIONS OF ESTIMATED GFR ARE PERFORMED USING THE MDRD STUDY EQUATION FOR THE IDMS-TRACEABLE CREATININE METHODS. CLIN CHEM 2007;53:766-72 Performed By: #### B MP ####[id number] [place] [address] GFR-NON AM. >60 Normal >60 [facility] Comment on above: Performed By: #### B MP ####[id number] [place] [address] Glucose [Mass/Vol] 89 mg/dL Normal 74 - 99 [facility] Comment on above: Performed By: #### B MP ####[id number] [place] [address] HCO3 (Bld) [Moles/Vol] 23 mmol/L Normal 21 - 32 [facility] Comment on above: Performed By: #### B MP ####[id number] [place] [address] Potassium [Moles/Vol] 3.9 mmol/L Normal 3.5 - 5.3 [facility] Comment on above: Performed By: #### B MP ####[id number] [place] [address] Sodium [Moles/Vol] 138 mmol/L Normal 136 - 145 [facility] Comment on above: Performed By: #### B MP ####[id number] [place] [address] Urea nitrogen [Mass/Vol] 11 mg/dL Normal 6 - 23 [facility] Comment on above: Performed By: #### B MP ####[id number] [place] [address] CBCon 08-12-2020 Erythrocyte distribution width (RBC) [Ratio] 14.5 % Normal 11.5 - 14.5 [facility] Comment on above: Performed By: #### C BC ####[id number] [place] [address] Hematocrit (Bld) [Volume fraction] 34.1 % Low 41.0 - 52.0 [facility] Comment on above: Performed By: #### C BC ####[id number] [place] [address] Hemoglobin (Bld) [Mass/Vol] 10.7 g/dL Low 13.5 - 17.5 [facility] Comment on above: Performed By: #### C BC ####[id number] [place] [address] MCHC (RBC) [Mass/Vol] 31.4 g/dL Low 32.0 - 36.0 [facility] Comment on above: Performed By: #### C BC ####[id number] [place] [address] MCV (RBC) [Entitic vol] 93 fL Normal 80 - 100 [facility] Comment on above: Performed By: #### C BC ####[id number] [place] [address] Nucleated RBC/100 WBC (Bld) [Ratio] 0.2 /100 WBC Normal 0.0-0.0 [facility] Comment on above: Performed By: #### C BC ####[id number] [place] [address] Platelets (Bld) [#/Vol] 742 10*3/uL High 150 - 450 [facility] Comment on above: Performed By: #### C BC ####[id number] [place] [address] RBC (Bld) [#/Vol] 3.65 x10E12/L Low 4.50 - 5.90 [facility] Comment on above: Performed By: #### C BC ####[id number] [place] [address] WBC (Bld) [#/Vol] 16.1 10*3/uL High 4.4 - 11.3 [facility] Comment on above: Performed By: #### C ####[id number] [place] [address] Daily Progress Note-Surgeryo n 01-28-2020 Daily Progress Note-Surgery Service: Surgery Subjective Data: ILGCHRISTIANO is a 24 year old Male who is Hospital Day # 8 and POD #7 for laparoscopic splenectomy. Pt examined at bedside. Pt reports reduced scrotal swelling and with unchanged scrotal pain. Dark green emesis of small volume on Jan 26 in the afternoon. pt ambulating. Pt denies SOB, chest pain, hemoptysis, or hematemesis. Objective Data: Objective Information: T PRBPSpO2 [id number]/16975% Date/Time01/27 11: 11: 11: 11: 11:28 Range(36.1C - 37.4C ) (84 - 103 ) (18 - 18 ) (120 - 134 )/ (65 - 81 ) (93% - 100% ) Highest temp of 37.4 C was recorded at 01/26 19:35 Pain reported at 01/27 8:21: 2 = Mild ---- Intake and Output ----- Mn[facility] Jan 28, 2020 6:00 [id number] Jan 27, 2020 10:00 [id number] Jan 27, 2020 2:00 [id number] The Intake and Output Totals for the last 24 hours are: IntakeOutputNet [id number] Physical Exam: Constitutional: Well developed, awake/alert/oriented x3, [...] Assessment and Plan: Comorbidities: Comorbidity: Other Assessment: GRACE ZHENGRoxy ALEX is a 24 year old Male who is Hospital Day # 8 and POD #7 for 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 Hemodynamically stable following embolization. Pt had ileus, which has since resolved. Occasional emesis. Plan Neuro: Lidocaine 5% transdermal (1 patch/24hrs) Fentanyl ELECTRICAL SIGN SERVICER -> Tramadol CV: Continue monitoring hemodynamic status [...] have been edited accordingly. Jluis Rinaldi MD [facility] Surgery p: [phone] Signature/Cosignature/A ttestation: Note Completion: I am a: Medical Student/Acting [employer] Worker Medical Student [place], or a resident under [...] this note. I personally evaluated the patient [id number] Electronic Signatures: Jluis Rinaldi (Resident)) (Signed 28-Jan-2020 [...] 29-Jan-2020 08:10 by Eagle Mcmanus) Normal [facility] BASIC METABOLIC PANELon 08- Anion gap [Moles/Vol] 19 mmol/L Normal 10 - 20 [facility] Comment on above: Order Comment: CRIT GLU CALLED RB TO VANESSA CHAVEZ, 01/27/2020 14:52 Performed By: #### B MP ####[id number] [place] [address] Calcium [Mass/Vol] 8.9 mg/dL Normal 8.6 - 10.6 [facility] Comment on above: Order Comment: CRIT GLU CALLED RB TO VANESSA CHAVEZ, 01/27/2020 14:52 Performed By: #### B MP ####[id number] [place] [address] Chloride [Moles/Vol] 103 mmol/L Normal 98 - 107 [facility] [place] Comment on above: Order Comment: CRIT GLU CALLED RB TO VANESSA CHAVEZ, 01/27/2020 14:52 Performed By: #### B MP ####[id number] [place] [address] Creatinine [Mass/Vol] 0.54 mg/dL Normal 0.50 - 1.30 [facility] Comment on above: Order Comment: CRIT GLU CALLED RB TO VANESSA CHAVEZ, 01/27/2020 14:52 Performed By: #### B MP ####[id number] [place] [address] GFR- AM. >60 Normal >60 [facility] Comment on above: Order Comment: CRIT GLU CALLED RB TO VANESSA CHAVEZ, 01/27/2020 14:52 Result Comment: CALC ULATIONS OF ESTIMATED GFR ARE PERFORMED USING THE MDRD STUDY EQUATION FOR THE IDMS-TRACEABLE CREATININE METHODS. CLIN CHEM 2007;53:766-72 Performed By: #### B MP ####[id number] [place] [address] GFR-NON AM. >60 Normal >60 [facility] Comment on above: Order Comment: CRIT GLU CALLED RB TO VANESSA CHAVEZ, 01/27/2020 14:52 Performed By: #### B MP ####[id number] [place] [address] Glucose [Mass/Vol] 38 mg/dL Critically low 74 - 99 [facility] Comment on above: Order Comment: CRIT GLU CALLED RB TO VANESSA CHAVEZ, 01/27/2020 14:52 Result Comment: CRIT GLU CALLED RB TO VANESSA CHAVEZ, 01/27/2020 14:52 Performed By: #### B MP ####[id number] [place] [address] HCO3 (Bld) [Moles/Vol] 21 mmol/L Normal 21 - 32 [facility] Comment on above: Order Comment: CRIT GLU CALLED RB TO VANESSA CHAVEZ, 01/27/2020 14:52 Performed By: #### B MP ####[id number] [place] [address] Potassium [Moles/Vol] 4.0 mmol/L Normal 3.5 - 5.3 [facility] Comment on above: Order Comment: CRIT GLU CALLED RB TO VANESSA CHAVEZ, 01/27/2020 14:52 Result Comment: MILD HEMOLYSIS DETECTED. The result may be falsely elevated due to hemolysis or other interferents. Clinical correlation is recommended. Repeat testing may be considered. Performed By: #### B MP ####[id number] [place] [address] Sodium [Moles/Vol] 139 mmol/L Normal 136 - 145 [facility] Comment on above: Order Comment: CRIT GLU CALLED RB TO VANESSA CHAVEZ, 01/27/2020 14:52 Performed By: #### B MP ####[id number] [place] [address] Urea nitrogen [Mass/Vol] 13 mg/dL Normal 6 - 23 [facility] Comment on above: Order Comment: CRIT GLU CALLED RB TO VANESSA CHAVEZ, 01/27/2020 14:52 Performed By: #### B MP ####[id number] [place] [address] CBCon 01-27-2020 Erythrocyte distribution width (RBC) [Ratio] 14.5 % Normal 11.5 - 14.5 [facility] Comment on above: Performed By: #### C BC ####[id number] [place] [address] Hematocrit (Bld) [Volume fraction] 32.4 % Low 41.0 - 52.0 [facility] Comment on above: Performed By: #### C BC ####[id number] [place] [address] Hemoglobin (Bld) [Mass/Vol] 10.3 g/dL Low 13.5 - 17.5 [facility] Comment on above: Performed By: #### C BC ####[id number] [place] [address] MCHC (RBC) [Mass/Vol] 31.8 g/dL Low 32.0 - 36.0 [facility] Comment on above: Performed By: #### C BC ####[id number] [place] [address] MCV (RBC) [Entitic vol] 93 fL Normal 80 - 100 [facility] Comment on above: Performed By: #### C BC ####[id number] [place] [address] Nucleated RBC/100 WBC (Bld) [Ratio] 0.3 /100 WBC Normal 0.0-0.0 [facility] Comment on above: Performed By: #### C BC ####[id number] [place] [address] Platelets (Bld) [#/Vol] 625 10*3/uL High 150 - 450 [facility] Comment on above: Performed By: #### C BC ####[id number] [place] [address] RBC (Bld) [#/Vol] 3.49 x10E12/L Low 4.50 - 5.90 [facility] Comment on above: Performed By: #### C BC ####[id number] [place] [address] WBC (Bld) [#/Vol] 16.4 10*3/uL High 4.4 - 11.3 [facility] Comment on above: Performed By: #### C BC ####[id number] [place] [address] Daily Progress Note-Interven tional Radiology/Radiologyon 01-27-2020 Daily Progress Note-Interventional Radiology/Radiology Service: Interventional Radiology/Radiology Subjective Data: CHRISTIANO ZHENG is a 24 year old Male who is Hospital Day # 7 and POD #6 for 1. laparoscopic splenectomy. Patient reports scant leakage from right groin IR procedure site. Nausea improved. Heartburn, hiccups resolved. Denies fever, chills. Objective Data: Objective Information: T PRBPSpO2 Value36.09583200/7997% Date/Time01/26 11: 11: 11: 11: 11:42 Range(36.2C - 36.9C ) (87 - 96 ) (18 - 19 ) (134 - 155 )/ (78 - 90 ) (96% - 100% ) Highest temp of 36.9 C was recorded at 01/25 15:33 Pain reported at 01/26 2:27: 3 = Mild ---- Intake and Output ----- [facility] Jan 27, 2020 6:00 [id number] Jan 26, 2020 10:00 [id number] Jan 26, 2020 2:00 [id number] The Intake and Output Totals for the last 24 hours are: [facility]Outpl[facility] centerNet [id number] Physical Exam: Constitutional: Well developed, resting in [...] - IR signing off IR Nurse Coordinator [id number] IR PA / resident [id number] Electronic Signatures: Ann Alfaro (PAC) (Signed 27-Jan-2020 12:40) Authored: Service, Subjective Data, Objective Data, Assessment and Plan, Signature/Cosignature/A ttestation Last Updated: 27-Jan-2020 12:40 by Ann Alfaro (PAC) Normal [facility] Daily Progress Note-Surgeryo n 01-27-2020 Daily Progress Note-Surgery Service: Surgery Subjective Data: MARCECHRISTIANO is a 24 year old Male who is Hospital Day # 7 and POD #6 for 1. laparoscopic splenectomy. Patient seen and examined at bedside. Patient had episode of emesis in the evening yesterday but nausea has improved. Pain has improved with other medications; fentanyl ELECTRICAL SIGN SERVICER reduced yesteray. Reflux improved. No hiccups. Walked yesterday. Scrotal swelling still present but reduced a bit. Objective Data: Objective Information: T PRBPSpO2 Value36.95400169/8896% Date/Time01/26 7: 7: 7: 7: 7:35 Range(36.2C - 36.9C ) (89 - 96 ) (18 - 19 ) (128 - 155 )/ (75 - 90 ) (96% - 100% ) Highest temp of 36.9 C was recorded at 01/25 15:33 Pain reported at 01/26 2:27: 3 = Mild ---- Intake and Output ----- Mn/Dy/Year TimeIntakeOutputNet Jan 27, 2020 6:00 [id number] Jan 26, 2020 10:00 [id number] Jan 26, 2020 2:00 [id number] The Intake and Output Totals for the last 24 hours are: IntakeOutputNet [id number] Physical Exam: Constitutional: Well developed, no acute [...] on post-op CT scan. Plan: Neuro: -fentanyl ELECTRICAL SIGN SERVICER spaced out (25mcg/hr), robaxin, lidocaine patches for [...] function Discussed with Dr. Martina Rinaldi MD [facility] General Surgery p: [phone] Signature/Cosignature/A ttestation: Note Completion: I am a: [...] the note. I personally evaluated the patient [id number] Comments/ Additional Findings Patient is improving. will wean pain meds encourage diet and mobilzation Electronic Signatures: Jluis Rinaldi (Resident)) (Signed 27-Jan-2020 08:41) Authored: Service, Subjective Data, Objective Data, Assessment and Plan, Signature/Cosignature/A ttestation Eagle Mcmanus) (Signed 28-Jan-2020 07:34) Authored: Signature/Cosignature/A ttestation Co-Signer: Service, Subjective Data, Objective Data, Assessment and Plan, Signature/Cosignature/A ttestation Last Updated: 28-Jan-2020 07:34 by Eagle Mcmanus) Normal [facility] GLUCOSE-POCTon 01-27-2020 Glucose [Mass/Vol] 101 mg/dL High 74 - 99 [facility] Comment on above: Performed By: #### G DAPHNE ####[id number] [place] [address] MAGNESIUMon 01-27-2020 Magnesium [Mass/Vol] 2.64 mg/dL High 1.60 - 2.40 [facility] Comment on above: Performed By: #### M G ####[id number] [place] [address] SURF MARKERS 9-15,PATH REVon 01-27-2020 PATH REV.9-15 MARKERS H.RUPASON Normal [facility] Comment on above: Result Comment: By h er/his signature above, the Pathologist listed as making the final interpretation certifies that she/he has personally reviewed this case. Performed By: #### P R192 ####[id number] [place] [address] SURFACE MARKERS LYMPHOMA CUT DOWN PANELon 01-27-2020 CD19 57 % of Lymph Normal [facility] Comment on above: Result Comment: Poly clonal [place]/Lambda= 29:32 Performed By: #### L CPAN ####[id number] [place] [address] COMMENT see below Normal [facility] Comment on above: Result Comment: T ce lls are polyclonal by TRBC1 staining. Performed By: #### L CPAN ####[id number] [place] [address] DIAGNOSIS SEE BELOW Normal [facility] Comment on above: Result Comment: No i mmunophenotypic evidence of a lymphoproliferative disorder. No discrete blast population. Performed By: #### L CPAN ####[id number] [place] [address] NOTE SEE BELOW Normal [facility] Comment on above: Result Comment: Clin ical and morphologic correlation is suggested. Performed By: #### L CPAN ####[id number] [place] [address] CD4 14 % of Lymph Normal [facility] Comment on above: Performed By: #### L CPAN ####[id number] [place] [address] CD8 17 % of Lymph Normal [facility] Comment on above: Performed By: #### L CPAN ####[id number] [place] [address] CELL COUNT 83.53 x10E9/L Normal [facility] Comment on above: Performed By: #### L CPAN ####[id number] [place] [address] Granulocytes/100 WBC (Bld) 6 % Normal [facility] Comment on above: Performed By: #### L CPAN ####[id number] [place] [address] Lymphocytes/100 WBC (Bld) 61 % Normal [facility] Comment on above: Performed By: #### L CPAN ####[id number] [place] [address] Monocytes/100 WBC (Bld) 2 % Normal [facility] Comment on above: Performed By: #### L CPAN ####[id number] [place] [address] NK 12 % of Lymph Normal [facility] Comment on above: Performed By: #### L CPAN ####[id number] [place] [address] NUMBER OF CELLS COLLECTED 100,000 per tube Normal [facility] Comment on above: Performed By: #### L CPAN ####[id number] [place] [address] BASIC METABOLIC PANELon 08- 0-2020 Anion gap [Moles/Vol] 16 mmol/L Normal 10 - 20 [facility] Comment on above: Performed By: #### B MP ####[id number] [place] [address] Calcium [Mass/Vol] 9.2 mg/dL Normal 8.6 - 10.6 [facility] Comment on above: Performed By: #### B MP ####[id number] [place] [address] Chloride [Moles/Vol] 102 mmol/L Normal 98 - 107 [facility] [place] Comment on above: Performed By: #### B MP ####[id number] [place] [address] Creatinine [Mass/Vol] 0.54 mg/dL Normal 0.50 - 1.30 [facility] Comment on above: Performed By: #### B MP ####[id number] [place] [address] GFR- AM. >60 Normal >60 [facility] Comment on above: Result Comment: CALC ULATIONS OF ESTIMATED GFR ARE PERFORMED USING THE MDRD STUDY EQUATION FOR THE IDMS-TRACEABLE CREATININE METHODS. CLIN CHEM 2007;53:766-72 Performed By: #### B MP ####[id number] [place] [address] GFR-NON AM. >60 Normal >60 [facility] Comment on above: Performed By: #### B MP ####[id number] [place] [address] Glucose [Mass/Vol] 90 mg/dL Normal 74 - 99 [facility] Comment on above: Performed By: #### B MP ####[id number] [place] [address] HCO3 (Bld) [Moles/Vol] 24 mmol/L Normal 21 - 32 [facility] Comment on above: Performed By: #### B MP ####[id number] [place] [address] Potassium [Moles/Vol] 4.2 mmol/L Normal 3.5 - 5.3 [facility] Comment on above: Result Comment: MILD HEMOLYSIS DETECTED. The result may be falsely elevated due to hemolysis or other interferents. Clinical correlation is recommended. Repeat testing may be considered. Performed By: #### B MP ####[id number] [place] [address] Sodium [Moles/Vol] 138 mmol/L Normal 136 - 145 [facility] Comment on above: Performed By: #### B MP ####[id number] [place] [address] Urea nitrogen [Mass/Vol] 13 mg/dL Normal 6 - 23 [facility] Comment on above: Performed By: #### B MP ####[id number] [place] [address] CBCon 01-26-2020 Erythrocyte distribution width (RBC) [Ratio] 14.8 % High 11.5 - 14.5 [facility] Comment on above: Performed By: #### H APTO #### [facility] [address] [place] [address] Hematocrit (Bld) [Volume fraction] 34.8 % Low 41.0 - 52.0 [facility] Comment on above: Performed By: #### H APTO #### [facility] [address] [place] [address] Hemoglobin (Bld) [Mass/Vol] 10.2 g/dL Low 13.5 - 17.5 [facility] Comment on above: Performed By: #### H APTO #### [facility] [address] [place] [address] MCHC (RBC) [Mass/Vol] 29.3 g/dL Low 32.0 - 36.0 [facility] Comment on above: Performed By: #### H APTO #### [facility] [address] [place] [address] MCV (RBC) [Entitic vol] 105 fL High 80 - 100 [facility] Comment on above: Performed By: #### H APTO #### [facility] [address] [place] [address] Nucleated RBC/100 WBC (Bld) [Ratio] 0.3 /100 WBC Normal 0.0-0.0 [facility] Comment on above: Performed By: #### H APTO #### [facility] [address] [place] [address] Platelets (Bld) [#/Vol] 224 10*3/uL Normal 150 - 450 [facility] Comment on above: Performed By: #### H APTO #### [facility] [address] [place] [address] RBC (Bld) [#/Vol] 3.33 x10E12/L Low 4.50 - 5.90 [facility] Comment on above: Performed By: #### H APTO #### [facility] [address] [place] [address] WBC (Bld) [#/Vol] 17.2 10*3/uL High 4.4 - 11.3 [facility] Comment on above: Performed By: #### H APTO #### [facility] [address] [place] [address] Daily Progress Note-Interven tional Radiology/Radiologyon 01-26-2020 Daily [...] chills. Objective Data: Objective Information: T PRBPSpO2 Value36.62196106/9097% Date/Time01/25 12: 12: 12: 12: 12:45 Range(36C - 36.6C ) (78 - 99 ) (17 - 19 ) (128 - 155 )/ (75 - 90 ) (96% - 100% ) Pain reported at 01/25 12:31: 2 = Mild ---- Intake and Output ----- Mn/Dy/Year TimeIntakeOutputNet Jan 26, 2020 2:00 [id number] Jan 26, 2020 6:00 [id number] Jan 25, 2020 10:00 [id number] The Intake and Output Totals for the last 24 hours are: IntakeOutplains [facility] medical centerNet [id number] Physical Exam: Constitutional: Well developed, resting in [...] Medication: Medications: Continuous Medications --------- 1. fentaNYL ELECTRICAL SIGN SERVICER 1000 microgram/ NaCL 0.9% 50 mL: 1000 microgram(s) IV ELECTRICAL SIGN SERVICER 2. Lactated Ringers Infusion: 1000 mL IntraVenous [...] laboratory results: Basic Metabolic Panel Trending View [id number] 06:58:00 -Jan-2020 12:19:00 Glucose, Serum90 71 L NA138 139 K4.2 4.7 CL102 103 Bicarbonate, Serum24 23 Anion Gap, Serum16 18 BUN13 13 CREAT0.54 0.55 GFR-Non >60 >60 GFR->60 >60 Calcium, Serum9.2 8.7 Complete Blood Count Trending View [id number] 06:58:00 -Jan-2020 12:19:00 White Blood Cell Count17.2 H 22.7 H Nucleated Erythrocyte Count0.3 0.3 Red Blood Cell Count3.33 L 3.76 L HGB10.2 L 11.3 L HCT34.8 L 37.1 L PLD085 H 99 MCHC29.3 L 30.5 L KCJ503 292 RDW-CV14.8 H 15.4 H Radiology Results: [...] will continue to follow IR Nurse Coordinator [id number] IR PA / resident [id number] Electronic Signatures: Ann Alfaro (PAC) (Signed 26-Jan-2020 14:48) Authored: Service, Subjective Data, Objective Data, Assessment and Plan, Signature/Cosignature/A ttestation Last Updated: 26-Jan-2020 14:48 by Ann Alfaro (PAC) Normal [facility] Daily Progress Note-Surgeryo n 01-26-2020 Daily Progress Note-Surgery Service: Surgery Subjective Data: CHRISTIANO ZHENG is a 24 year old Male who is Hospital Day # 6 and POD #5 for 1. laparoscopic splenectomy. Patient seen and examined at bedside. Had some episodes of emesis last night. Small volume, gastric contents. Still having diffuse pain but has been reluctant to use ELECTRICAL SIGN SERVICER since he knows it may worsen ileus. Has been walking around. Objective Data: Objective Information: T PRBPSpO2 Value36.00826016/7599% Date/Time01/25 8: 8: 8: 8: 8:42 Range(36C - 36.9C ) (78 - 99 ) (17 - 19 ) (128 - 143 )/ (75 - 85 ) (95% - 100% ) Highest temp of 36.9 C was recorded at 01/24 12:21 Pain reported at 01/24 20:41: 2 = Mild ---- Intake and Output ----- Mn/Dy/Year TimeIntakeOutputNet Jan 26, 2020 6:00 [id number] Jan 25, 2020 10:00 [id number] Jan 25, 2020 2:00 [id number] The Intake and Output Totals for the last 24 hours are: IntakeOutputNet [id number] Physical Exam: Constitutional: Well developed, no acute [...] on post-op CT scan. Plan: Neuro: -fentanyl ELECTRICAL SIGN SERVICER for postop pain - adding lidocaine patches to assist with decreased ELECTRICAL SIGN SERVICER use CV: - Continue monitoring hemodynamic status Pulm: - IS q1h, OOB GI: - continue CLD as tolerated - Zofran for nausea - chewing gum : - Continue MIVF; dec to 100ml/hr - Strict I/Os MSK: OOB, ambulate DVT ppx: SCDs; OOB, hold chemical ppx Dispo: pending improvement in pain and return of bowel function Discussed with Dr. Martina Rinaldi MD [facility] General Surgery p: [phone] Signature/Cosignature/A ttestation: Note Completion: I am a: [...] the note. I personally evaluated the patient [id number] Electronic Signatures: Jluis Rinaldi (Resident)) (Signed 26-Jan-2020 10:21) Authored: Service, Subjective Data, Objective Data, Assessment and Plan, Signature/Cosignature/A ttestation Eagle Mcmanus) (Signed 26-Jan-2020 10:55) Authored: Signature/Cosignature/A ttestation Co-Signer: Service, Subjective Data, Objective Data, Assessment and Plan, Signature/Cosignature/A ttestation Last Updated: 26-Jan-2020 10:55 by Eagle Mcmanus) Normal [facility] FLOW CYTOMETRY TESTon 2019 FLOW TEST ORDERED LYMPHOMA CUTDOWN PANEL Normal [facility] Comment on above: Performed By: #### F CTST ####[id number] [place] [address] SOURCE TISSUE Normal [facility] Comment on above: Performed By: #### F CTST ####[id number] [place] [address] SURFACE MARKERS LYMPHOMA CUT DOWN PANELon 01-26-2020 SPECIMEN SITE Spleen Normal [facility] Comment on above: Result Comment: [id number] Performed By: #### L CPAN ####[id number] [place] [address] METHOD SEE BELOW Normal [facility] Comment on above: Result Comment: This test is a multicolor, whole blood lysis assay. It was developed and its performance characteristics determined by the Department of Pathology, [facility], and has not been cleared or [...] TCR gamma-delta Performed By: #### L CPAN ####[id number] [place] [address] SPECIMEN VIABILITY Acceptable Normal [facility] Comment on above: Performed By: #### L CPAN ####[id number] [place] [address] BASIC METABOLIC PANELon 08-0 9-2020 Anion gap [Moles/Vol] 18 mmol/L Normal 10 - 20 [facility] Comment on above: Performed By: #### H APTO #### [facility] [address] [place] [address] Calcium [Mass/Vol] 8.7 mg/dL Normal 8.6 - 10.6 [facility] Comment on above: Performed By: #### H APTO #### [facility] [address] [place] [address] Chloride [Moles/Vol] 103 mmol/L Normal 98 - 107 [facility] [place] Comment on above: Performed By: #### H APTO #### [facility] [address] [place] [address] Creatinine [Mass/Vol] 0.55 mg/dL Normal 0.50 - 1.30 [facility] Comment on above: Performed By: #### H APTO #### [facility] [address] [place] [address] GFR- AM. >60 Normal >60 [facility] Comment on above: Result Comment: CALC ULATIONS OF ESTIMATED GFR ARE PERFORMED USING THE MDRD STUDY EQUATION FOR THE IDMS-TRACEABLE CREATININE METHODS. CLIN CHEM 2007;53:766-72 Performed By: #### H APTO #### [facility] [address] [place] [address] GFR-NON AM. >60 Normal >60 [facility] Comment on above: Performed By: #### H APTO #### [facility] [address] [place] [address] Glucose [Mass/Vol] 71 mg/dL Low 74 - 99 [facility] Comment on above: Performed By: #### H APTO #### [facility] [address] [place] [address] HCO3 (Bld) [Moles/Vol] 23 mmol/L Normal 21 - 32 [facility] Comment on above: Performed By: #### H APTO #### [facility] [address] [place] [address] Potassium [Moles/Vol] 4.7 mmol/L Normal 3.5 - 5.3 [facility] Comment on above: Result Comment: MILD HEMOLYSIS DETECTED. The result may be falsely elevated due to hemolysis or other interferents. Clinical correlation is recommended. Repeat testing may be considered. Performed By: #### H APTO #### [place] [address] [place] [address] Sodium [Moles/Vol] 139 mmol/L Normal 136 - 145 [facility] Comment on above: Performed By: #### H APTO #### [facility] [address] [place] [address] Urea nitrogen [Mass/Vol] 13 mg/dL Normal 6 - 23 [facility] Comment on above: Performed By: #### H APTO #### [facility] [address] [place] [address] Anion gap [Moles/Vol] Canceled Normal [facility] Comment on above: Order Comment: TEST BASIC METABOLIC PANEL WAS CANCELLED, 01/25/2020 08:19 Performed By: #### H APTO #### [facility] [address] [place] [address] Calcium [Mass/Vol] Canceled Normal [facility] Comment on above: Order Comment: TEST BASIC METABOLIC PANEL WAS CANCELLED, 01/25/2020 08:19 Performed By: #### H APTO #### [facility] [address] [place] [address] Chloride [Moles/Vol] Canceled Normal [facility] [place] Comment on above: Order Comment: TEST BASIC METABOLIC PANEL WAS CANCELLED, 01/25/2020 08:19 Performed By: #### H APTO #### [facility] [address] [place] [address] Creatinine [Mass/Vol] Canceled Normal [facility] Comment on above: Order Comment: TEST BASIC METABOLIC PANEL WAS CANCELLED, 01/25/2020 08:19 Performed By: #### H APTO #### [facility] [address] [place] [address] GFR- AM. Canceled Normal [facility] Comment on above: Order Comment: TEST BASIC METABOLIC PANEL WAS CANCELLED, 01/25/2020 08:19 Result Comment: CALC ULATIONS OF ESTIMATED GFR ARE PERFORMED USING THE MDRD STUDY EQUATION FOR THE IDMS-TRACEABLE CREATININE METHODS. CLIN CHEM 2007;53:766-72 Performed By: #### H APTO #### [facility] [address] [place] [address] GFR-NON AM. Canceled Normal [facility] Comment on above: Order Comment: TEST BASIC METABOLIC PANEL WAS CANCELLED, 01/25/2020 08:19 Performed By: #### H APTO #### [facility] [address] [place] [address] Glucose [Mass/Vol] Canceled Normal [facility] Comment on above: Order Comment: TEST BASIC METABOLIC PANEL WAS CANCELLED, 01/25/2020 08:19 Performed By: #### H APTO #### [facility] [address] [place] [address] HCO3 (Bld) [Moles/Vol] Canceled Normal [facility] Comment on above: Order Comment: TEST BASIC METABOLIC PANEL WAS CANCELLED, 01/25/2020 08:19 Performed By: #### H APTO #### [facility] [address] [place] [address] Potassium [Moles/Vol] Canceled Normal [facility] Comment on above: Order Comment: TEST BASIC METABOLIC PANEL WAS CANCELLED, 01/25/2020 08:19 Performed By: #### H APTO #### [facility] [address] [place] [address] Sodium [Moles/Vol] Canceled Normal [facility] Comment on above: Order Comment: TEST BASIC METABOLIC PANEL WAS CANCELLED, 01/25/2020 08:19 Performed By: #### H APTO #### [facility] [address] [place] [address] Urea nitrogen [Mass/Vol] Canceled Normal [facility] Comment on above: Order Comment: TEST BASIC METABOLIC PANEL WAS CANCELLED, 01/25/2020 08:19 Performed By: #### H APTO #### [facility] [address] [place] [address] CBCon 01-25-2020 Erythrocyte distribution width (RBC) [Ratio] 15.4 % High 11.5 - 14.5 [facility] Comment on above: Performed By: #### H APTO #### [facility] [address] [place] [address] Hematocrit (Bld) [Volume fraction] 37.1 % Low 41.0 - 52.0 [facility] Comment on above: Performed By: #### H APTO #### [facility] [address] [place] [address] Hemoglobin (Bld) [Mass/Vol] 11.3 g/dL Low 13.5 - 17.5 [facility] Comment on above: Performed By: #### H APTO #### [facility] [address] [place] [address] MCHC (RBC) [Mass/Vol] 30.5 g/dL Low 32.0 - 36.0 [facility] Comment on above: Performed By: #### H APTO #### [facility] [address] [place] [address] MCV (RBC) [Entitic vol] 99 fL Normal 80 - 100 [facility] Comment on above: Performed By: #### H APTO #### [facility] [address] [place] [address] Nucleated RBC/100 WBC (Bld) [Ratio] 0.3 /100 WBC Normal 0.0-0.0 [facility] Comment on above: Performed By: #### H APTO #### [facility] [address] [place] [address] Platelets (Bld) [#/Vol] 292 10*3/uL Normal 150 - 450 [facility] Comment on above: Performed By: #### H APTO #### [facility] [address] [place] [address] RBC (Bld) [#/Vol] 3.76 x10E12/L Low 4.50 - 5.90 [facility] Comment on above: Performed By: #### H APTO #### [facility] [address] [place] [address] WBC (Bld) [#/Vol] 22.7 10*3/uL High 4.4 - 11.3 [facility] Comment on above: Performed By: #### H APTO #### [facility] [address] [place] [address] Erythrocyte distribution width (RBC) [Ratio] Canceled Normal [facility] Comment on above: Order Comment: TEST CBC WAS CANCELLED, 01/25/2020 08:19 Performed By: #### H APTO #### [facility] [address] [place] [address] Hematocrit (Bld) [Volume fraction] Canceled Normal [facility] Comment on above: Order Comment: TEST CBC WAS CANCELLED, 01/25/2020 08:19 Performed By: #### H APTO #### [facility] [address] [place] [address] Hemoglobin (Bld) [Mass/Vol] Canceled Normal [facility] Comment on above: Order Comment: TEST CBC WAS CANCELLED, 01/25/2020 08:19 Performed By: #### H APTO #### [facility] [address] [place] [address] MCHC (RBC) [Mass/Vol] Canceled Normal [facility] Comment on above: Order Comment: TEST CBC WAS CANCELLED, 01/25/2020 08:19 Performed By: #### H APTO #### [facility] [address] [place] [address] MCV (RBC) [Entitic vol] Canceled Normal [facility] Comment on above: Order Comment: TEST CBC WAS CANCELLED, 01/25/2020 08:19 Performed By: #### H APTO #### [facility] [address] [place] [address] Nucleated RBC/100 WBC (Bld) [Ratio] Canceled Normal [facility] Comment on above: Order Comment: TEST CBC WAS CANCELLED, 01/25/2020 08:19 Performed By: #### H APTO #### [facility] [address] [place] [address] Platelets (Bld) [#/Vol] Canceled Normal [facility] Comment on above: Order Comment: TEST CBC WAS CANCELLED, 01/25/2020 08:19 Performed By: #### H APTO #### [facility] [address] [place] [address] RBC (Bld) [#/Vol] Canceled Normal [facility] Comment on above: Order Comment: TEST CBC WAS CANCELLED, 01/25/2020 08:19 Performed By: #### H APTO #### [facility] [address] [place] [address] WBC (Bld) [#/Vol] Canceled Normal [facility] Comment on above: Order Comment: TEST CBC WAS CANCELLED, 01/25/2020 08:19 Performed By: #### H APTO #### [facility] [address] [place] [address] Daily Progress Note-Surgeryo n 01-25-2020 Daily Progress [...] BM. Objective Data: Objective Information: T PRBPSpO2 [id number]% Date/Time01/24 2: 2: 2: 2: 2:38 Range(36C [...] ----- Mn/Dy/Year TimeIntakeOutputNet Jan 25, 2020 6:00 [id number] Jan 24, 2020 10:00 [id number] Jan 24, 2020 2:00 [id number] The Intake and Output Totals for the last 24 hours are: IntakeOutputNet [id number] Physical Exam: Constitutional: Patient lying comfortably in [...] on post-op CT scan. Plan: Neuro: -fentanyl ELECTRICAL SIGN SERVICER for postop pain CV: - Continue monitoring hemodynamic status Pulm: - IS q1h, OOB GI: - advance to CLD - Zofran for nausea - chewing gum : - Continue MIVF; dec to 100ml/hr - Strict I/Os MSK: OOB, ambulate DVT ppx: SCDs; hold chemical ppx Dispo: pending improvement in pain and return of bowel function Discussed with Dr. Martina Rinaldi MD [facility] General Surgery p: [phone] Signature/Cosignature/A ttestation: Note Completion: I am a: [...] the note. I personally evaluated the patient [id number] Comments/ Additional Findings Doing better today. encourage ambulation Electronic Signatures: Jluis Rinaldi (Resident)) (Signed 25-Jan-2020 08:03) Authored: Service, Subjective Data, Objective Data, Assessment and Plan, Signature/Cosignature/A ttestation Eagle Mcmanus) (Signed 25-Jan-2020 20:15) Authored: Signature/Cosignature/A ttestation Co-Signer: Signature/Cosignature/A ttestation Last Updated: 25-Jan-2020 20:15 by Eagle Mcmanus) [facility] Discharge [id number] Discharge Profile2 Discharge Orders: Anticipated Discharge Date: Anticipated Discharge [id number] Problem List: Additional Dx: Hereditary spherocytosis: Catalog Name: Hereditary spherocytosis Significant Events: IR - embolization: Clinical Events This Visit, Emergent embolization of splenic artery on POD1 Surgical Procedure: Clinical Events This Visit, 21-Jan-2020, 1. laparoscopic splenectomy Hospital Providers: Provider RoleProvider Name PrimarySchAddie dennis Raymond Physician AssistantAnn Alfaro Activity: activity as tolerated. May shower. May [...] check Call to Schedule in2 weeks Phone [phone] Commentsdiscuss long-term vaccines Electronic Signatures: Jluis Rinaldi (Resident)) (Signed 28-Jan-2020 17:14) Authored: Discharge Orders, Hospital Course (Home Care/Gold Form), Provider FINAL REVIEW of Orders, Appointments, Gold Form - Taping Supervisor Summary Last Updated: 28-Jan-2020 17:14 by Jluis Rinaldi ( (Resident)) Normal [facility] CALCIUM, IONIZEDon 0 CALCIUM,IONIZED 1.17 mmol/L Normal 1.10 - 1.33 [facility] Comment on above: Result Comment: The performance characteristics of ionized calcium tested in heparinized plasma or serum have been validated by the individual laboratory site where testing is performed. Testing on heparinized plasma or serum is not approved by the FDA; however, such approval is not necessary. Performed By: #### E SRWS #### [facility] [address] [place] [address] CBCon 01-24-2020 Erythrocyte distribution width (RBC) [Ratio] 16.0 % High 11.5 - 14.5 [facility] Comment on above: Performed By: #### E SRWS #### [facility] [address] [place] [address] Hematocrit (Bld) [Volume fraction] 30.6 % Low 41.0 - 52.0 [facility] Comment on above: Performed By: #### E SRWS #### [facility] [address] [place] [address] Hemoglobin (Bld) [Mass/Vol] 10.6 g/dL Low 13.5 - 17.5 [facility] Comment on above: Performed By: #### E SRWS #### [facility] [address] [place] [address] MCHC (RBC) [Mass/Vol] 34.6 g/dL Normal 32.0 - 36.0 [facility] Comment on above: Performed By: #### E SRWS #### [facility] [address] [place] [address] MCV (RBC) [Entitic vol] 88 fL Normal 80 - 100 [facility] Comment on above: Performed By: #### E SRWS #### [facility] [address] [place] [address] Nucleated RBC/100 WBC (Bld) [Ratio] 0.2 /100 WBC Normal 0.0-0.0 [facility] Comment on above: Performed By: #### E SRWS #### [facility] [address] [place] [address] Platelets (Bld) [#/Vol] 211 10*3/uL Normal 150 - 450 [facility] Comment on above: Performed By: #### E SRWS #### [facility] [address] [place] [address] RBC (Bld) [#/Vol] 3.47 x10E12/L Low 4.50 - 5.90 [facility] Comment on above: Performed By: #### E SRWS #### [facility] [address] [place] [address] WBC (Bld) [#/Vol] 24.4 10*3/uL High 4.4 - 11.3 [facility] Comment on above: Performed By: #### E SRWS #### [facility] [address] [place] [address] Erythrocyte distribution width (RBC) [Ratio] 16.6 % High 11.5 - 14.5 [facility] Comment on above: Performed By: #### E SRWS #### [facility] [address] [place] [address] Hematocrit (Bld) [Volume fraction] 29.4 % Low 41.0 - 52.0 [facility] Comment on above: Performed By: #### E SRWS #### [facility] [address] [place] [address] Hemoglobin (Bld) [Mass/Vol] 9.8 g/dL Low 13.5 - 17.5 [facility] Comment on above: Performed By: #### E SRWS #### [facility] [address] [place] [address] MCHC (RBC) [Mass/Vol] 33.3 g/dL Normal 32.0 - 36.0 [facility] Comment on above: Performed By: #### E SRWS #### [facility] [address] [place] [address] MCV (RBC) [Entitic vol] 92 fL Normal 80 - 100 [facility] Comment on above: Performed By: #### E SRWS #### [facility] [address] [place] [address] Nucleated RBC/100 WBC (Bld) [Ratio] 0.2 /100 WBC Normal 0.0-0.0 [facility] Comment on above: Performed By: #### E SRWS #### [facility] [address] [place] [address] Platelets (Bld) [#/Vol] 199 10*3/uL Normal 150 - 450 [facility] Comment on above: Performed By: #### E SRWS #### [facility] [address] [place] [address] RBC (Bld) [#/Vol] 3.19 x10E12/L Low 4.50 - 5.90 [facility] Comment on above: Performed By: #### E SRWS #### [facility] [address] [place] [address] WBC (Bld) [#/Vol] 21.3 10*3/uL High 4.4 - 11.3 [facility] Comment on above: Performed By: #### E SRWS #### [facility] [address] [place] [address] COAGULATION SCREENon 020 aPTT Coag (Bld) [Time] 21 s Low 25 - 35 [facility] Comment on above: Result Comment: Note new reference range as of 11/11/2019. THE APTT IS NO LONGER USED FOR MONITORING UNFRACTIONATED HEPARIN THERAPY. FOR MONITORING HEPARIN THERAPY, USE THE HEPARIN ASSAY. Performed By: #### E SRWS #### [facility] [address] [place] [address] INR Coag (PPP) [Relative time] 1.1 {INR} Normal 0.9 - 1.1 [facility] Comment on above: Performed By: #### E SRWS #### [facility] [address] [place] [address] PT Coag (PPP) [Time] 12.9 s Normal 10.1 - 13.3 [facility] Comment on above: Result Comment: Note new reference range as of 11/11/2019. Performed By: #### E SRWS #### [facility] [address] [place] [address] Clinical Event Note-Overni t Eventson 01-24-2020 Clinical Event Note-Overnight Events [...] by Sen Colindres ( (Resident)) Normal [facility] Daily Progress Note - Critic al Care-SICUon [...] hour. Objective Data: Objective Information T PRBPSpO2 [id number]/93852 % Date/Time01/23: 11:: 11: 11:00 Range(36.4C - 37.3C ) (89 - [...] ----- Mn/Dy/Year TimeIntakeOutputNet Jan 24, 2020 6:00 [id number] Jan 23, 2020 10:00 [id number] Jan 23, 2020 2:00 [id number] The Intake and Output Totals for the last 24 hours are: IntakeOutputNet [id number] Drain and tube details (included in I&O [...] Medications: Medications: Continuous Medications --------- 1. fentaNYL ELECTRICAL SIGN SERVICER 1000 microgram/ NaCL 0.9% 50 mL: 1000 microgram(s) IV ELECTRICAL SIGN SERVICER 2. Lactated Ringers Infusion: 1000 mL IntraVenous [...] Hazy opacities overlying bases. Findings are likely community representative atelectasis although infectious process not excluded. [...] it often, so will transition to Fentanyl ELECTRICAL SIGN SERVICER: -50mcg loading dose -25mcg ELECTRICAL SIGN SERVICER dose -15 min lockout -Max 100mcg/hour - [...] the note. I personally evaluated the patient [id number] Critical Care PatientI have reviewed and evaluated [...] 24-Jan-2020 13:11 by Annette Irving) Normal [facility] Daily Progress Note-Zeke licea 01-24-2020 Daily Progress Note-Zeke Surgery Service: Surgery Subjective Data: CHRISTIANO ZHENG is a 24 year old Male who is Hospital Day # 4 and POD #3 for 1. laparoscopic splenectomy. NGT placed last night but removed shortly after due to discomfort. Still having abdominal pain, +hiccups, no further emesis. Passing some flatus. Objective Data: Objective Information: T PRBPSpO2 Value36.67501540/51301% Date/Time01/23 8: 10: 10: 10:008/8 10:00 Range(36.4C - 37.3C ) (89 - 135 ) (10 - 33 ) (92 - 148 )/ (54 - 89 ) (89% - 100% ) As of 24-Jan-2020 08:00:00, patient is on 2 L/min of oxygen via nasal cannula. Highest temp of 37.3 C was recorded at 01/22 18:00 ---- Intake and Output ----- Mn/Dy/Year TimeIntakeOutputNet Jan 24, 2020 6:00 [id number] Jan 23, 2020 10:00 [id number] Jan 23, 2020 2:00 [id number] The Intake and Output Totals for the last 24 hours are: IntakeOutputNet [id number] Physical Exam: Constitutional: Patient lying comfortably in bed. Eyes: EOMI Respiratory/Thorax: Non labored breathing on 2L NC Cardiovascular: RRR Gastrointestinal: abdomen TTP diffusely, soft, distended, incisions c/d/i Genitourinary: [place] in place with clear yellow urine Extremities: No lower extremity edema, SCDs on Neurological: Alert and oriented Psychological: Appropriate mood and affect Medication: Medications: Continuous Medications --------- 1. fentaNYL ELECTRICAL SIGN SERVICER 1000 microgram/ NaCL 0.9% 50 mL: 1000 microgram(s) IV ELECTRICAL SIGN SERVICER 2. Lactated Ringers Infusion: 1000 mL IntraVenous [...] Hazy opacities overlying bases. Findings are likely community representative atelectasis although infectious process not excluded.] [...] to transfer to [facility] on [address] Martina Kaufman PGY-4 [facility] p: [phone] Signature/Cosignature/A ttestation: Note Completion: I am a: [...] the note. I personally evaluated the patient [id number] Comments/ Additional Findings Hg stable. not had bowel movement. abdomen benign. will transfer to floor Electronic Signatures: Annette Kaufman (Resident)) (Signed 24-Jan-2020 11:02) Authored: Service, Subjective Data, Objective Data, Assessment and Plan, Signature/Cosignature/A ttestation Eagle Mcmanus) (Signed 25-Jan-2020 20:14) Authored: Signature/Cosignature/A ttestation Co-Signer: Service, Subjective Data, Objective Data, Assessment and Plan, Signature/Cosignature/A ttestation Last Updated: 25-Jan-2020 20:14 by Eagle Mcmanus) Normal [facility] FIBRINOGENon 01-24-2020 FIBRINOGEN 673 mg/dL High 200 - 400 [facility] Comment on above: Performed By: #### E SRWS #### [facility] [address] [place] [address] MAGNESIUMon 01-24-2020 Magnesium [Mass/Vol] 2.38 mg/dL Normal 1.60 - 2.40 [facility] Comment on above: Performed By: #### E SRWS #### [facility] [address] [place] [address] RENAL FUNCTION PANELon 01-23 Albumin [Mass/Vol] 3.9 g/dL Normal 3.4 - 5.0 [facility] Comment on above: Performed By: #### E SRWS #### [facility] [address] [place] [address] Anion gap [Moles/Vol] 12 mmol/L Normal 10 - 20 [facility] Comment on above: Performed By: #### E SRWS #### [facility] [address] [place] [address] Calcium [Mass/Vol] 8.7 mg/dL Normal 8.6 - 10.6 [facility] Comment on above: Performed By: #### E SRWS #### [facility] [address] [place] [address] Chloride [Moles/Vol] 101 mmol/L Normal 98 - 107 [facility] [place] Comment on above: Performed By: #### E SRWS #### [facility] [address] [place] [address] Creatinine [Mass/Vol] 0.65 mg/dL Normal 0.50 - 1.30 [facility] Comment on above: Performed By: #### E SRWS #### [facility] [address] [place] [address] GFR- AM. >60 Normal >60 [facility] Comment on above: Result Comment: CALC ULATIONS OF ESTIMATED GFR ARE PERFORMED USING THE MDRD STUDY EQUATION FOR THE IDMS-TRACEABLE CREATININE METHODS. CLIN CHEM 2007;53:766-72 Performed By: #### E SRWS #### [facility] [address] [place] [address] GFR-NON AM. >60 Normal >60 [facility] Comment on above: Performed By: #### E SRWS #### [facility] [address] [place] [address] Glucose [Mass/Vol] 109 mg/dL High 74 - 99 [facility] Comment on above: Performed By: #### E SRWS #### [facility] [address] [place] [address] HCO3 (Bld) [Moles/Vol] 30 mmol/L Normal 21 - 32 [facility] Comment on above: Performed By: #### E SRWS #### [facility] [address] [place] [address] Phosphate [Mass/Vol] 2.4 mg/dL Low 2.5 - 4.9 [facility] [place] Comment on above: Result Comment: The performance characteristics of phosphorus testing in heparinized plasma have been validated by the individual laboratory site where testing is performed. Testing on heparinized plasma is not approved by the FDA; however, such approval is not necessary. Performed By: #### E SRWS #### [facility] [address] [place] [address] Potassium [Moles/Vol] 4.1 mmol/L Normal 3.5 - 5.3 [facility] Comment on above: Result Comment: MILD HEMOLYSIS DETECTED. The result may be falsely elevated due to hemolysis or other interferents. Clinical correlation is recommended. Repeat testing may be considered. Performed By: #### E SRWS #### [facility] [address] [place] [address] Sodium [Moles/Vol] 139 mmol/L Normal 136 - 145 [facility] Comment on above: Performed By: #### E SRWS #### [facility] [address] [place] [address] Urea nitrogen [Mass/Vol] 9 mg/dL Normal 6 - 23 [facility] Comment on above: Performed By: #### E SRWS #### [facility] [address] [place] [address] TH ABDOMEN AP VIEWon 020 TH ABDOMEN AP VIEW Patient Name: CHRISTIANO ZHENG STUDY: ABDOMEN AP VIEW; 01/24/2020 2:34 am INDICATION: nausea and eructation. COMPARISON: None. ACCESSION NUMBER(S): [id number] ORDERING CLINICIAN: SEN COLINDRES FINDINGS: There is [...] as stated. This study was interpreted at [facility], [place], [place]. Findings were communicated by Clark Rosado MD (resident service coordinator) to Dr. Gupta on 01/24/2020 at 05:40 with readback verification. Electronically signed by: Spencer BARRETO MD Normal [facility] TH CHEST 1 VIEWon 01-24-2020 TH CHEST 1 VIEW Patient Name: CHRISTIANO ZHENG STUDY: CHEST 1 VIEW; 01/24/2020 6:44 am INDICATION: upright if possible, rule out free air. COMPARISON: KUB 01/24/2020, 2:34 a.m. ACCESSION NUMBER(S): [id number] ORDERING CLINICIAN: JIM GUPTA FINDINGS: Upright AP [...] Hazy opacities overlying bases. Findings are likely community representative atelectasis although infectious process not excluded. The critical information above was relayed directly by Dr. Leslie by telephone to Dr. Salmeron On 01/24/2020 at 9 a.m. with readback verification. Electronically signed by: Spencer BARRETO MD Normal [facility] CALCIUM, IONIZEDon 0 CALCIUM,IONIZED 1.13 mmol/L Normal 1.10 - 1.33 [facility] Comment on above: Result Comment: The performance characteristics of ionized calcium tested in heparinized plasma or serum have been validated by the individual laboratory site where testing is performed. Testing on heparinized plasma or serum is not approved by the FDA; however, such approval is not necessary. Performed By: #### U MELISA #### [facility] [address] [place] [address] CBCon 01-23-2020 Erythrocyte distribution width (RBC) [Ratio] 17.0 % High 11.5 - 14.5 [facility] Comment on above: Performed By: #### E SRWS #### [facility] [address] [place] [address] Hematocrit (Bld) [Volume fraction] 26.4 % Low 41.0 - 52.0 [facility] Comment on above: Performed By: #### E SRWS #### [facility] [address] [place] [address] Hemoglobin (Bld) [Mass/Vol] 8.9 g/dL Low 13.5 - 17.5 [facility] Comment on above: Performed By: #### E SRWS #### [facility] [address] [place] [address] MCHC (RBC) [Mass/Vol] 33.7 g/dL Normal 32.0 - 36.0 [facility] Comment on above: Performed By: #### E SRWS #### [facility] [address] [place] [address] MCV (RBC) [Entitic vol] 92 fL Normal 80 - 100 [facility] Comment on above: Performed By: #### E SRWS #### [facility] [address] [place] [address] Nucleated RBC/100 WBC (Bld) [Ratio] 0.3 /100 WBC Normal 0.0-0.0 [facility] Comment on above: Performed By: #### E SRWS #### [facility] [address] [place] [address] Platelets (Bld) [#/Vol] 158 10*3/uL Normal 150 - 450 [facility] Comment on above: Performed By: #### E SRWS #### [facility] [address] [place] [address] RBC (Bld) [#/Vol] 2.87 x10E12/L Low 4.50 - 5.90 [facility] Comment on above: Performed By: #### E SRWS #### [facility] [address] [place] [address] WBC (Bld) [#/Vol] 20.9 10*3/uL High 4.4 - 11.3 [facility] Comment on above: Performed By: #### E SRWS #### [facility] [address] [place] [address] Erythrocyte distribution width (RBC) [Ratio] 16.9 % High 11.5 - 14.5 [facility] Comment on above: Performed By: #### D BILI #### [facility] [address] [place] [address] Hematocrit (Bld) [Volume fraction] 26.0 % Low 41.0 - 52.0 [facility] Comment on above: Performed By: #### D BILI #### [facility] [address] [place] [address] Hemoglobin (Bld) [Mass/Vol] 9.0 g/dL Low 13.5 - 17.5 [facility] Comment on above: Performed By: #### D BILI #### [facility] [address] [place] [address] MCHC (RBC) [Mass/Vol] 34.6 g/dL Normal 32.0 - 36.0 [facility] Comment on above: Performed By: #### D BILI #### [facility] [address] [facility] [place] [place] [address] MCV (RBC) [Entitic vol] 90 fL Normal 80 - 100 [facility] Comment on above: Performed By: #### D BILI #### [facility] [address] [place] [address] Nucleated RBC/100 WBC (Bld) [Ratio] 0.3 /100 WBC Normal 0.0-0.0 [facility] Comment on above: Performed By: #### D BILI #### [facility] [address] [place] [address] Platelets (Bld) [#/Vol] 139 10*3/uL Low 150 - 450 [facility] Comment on above: Performed By: #### D BILI #### [facility] [address] [facility] [place] [place] [address] RBC (Bld) [#/Vol] 2.88 x10E12/L Low 4.50 - 5.90 [facility] Comment on above: Performed By: #### D BILI #### [facility] [address] [facility] [place] [place] [address] WBC (Bld) [#/Vol] 20.3 10*3/uL High 4.4 - 11.3 [facility] Comment on above: Performed By: #### D BILI #### [facility] [address] [place] [address] Erythrocyte distribution width (RBC) [Ratio] 16.8 % High 11.5 - 14.5 [facility] Comment on above: Performed By: #### U MELISA #### [facility] [address] [place] [address] Hematocrit (Bld) [Volume fraction] 27.2 % Low 41.0 - 52.0 [facility] Comment on above: Performed By: #### U MELISA #### [facility] [address] [place] [address] Hemoglobin (Bld) [Mass/Vol] 9.3 g/dL Low 13.5 - 17.5 [facility] Comment on above: Performed By: #### U MELISA #### [facility] [address] [place] [address] MCHC (RBC) [Mass/Vol] 34.2 g/dL Normal 32.0 - 36.0 [facility] Comment on above: Performed By: #### U MELISA #### [facility] [address] [place] [address] MCV (RBC) [Entitic vol] 89 fL Normal 80 - 100 [facility] Comment on above: Performed By: #### U MELISA #### [facility] [address] [place] [address] Nucleated RBC/100 WBC (Bld) [Ratio] 0.4 /100 WBC Normal 0.0-0.0 [facility] Comment on above: Performed By: #### U MELISA #### [facility] [address] [place] [address] Platelets (Bld) [#/Vol] 121 10*3/uL Low 150 - 450 [facility] Comment on above: Performed By: #### U MELISA #### [facility] [address] [place] [address] RBC (Bld) [#/Vol] 3.04 x10E12/L Low 4.50 - 5.90 [facility] Comment on above: Performed By: #### U MELISA #### [facility] [address] [place] [address] WBC (Bld) [#/Vol] 18.6 10*3/uL High 4.4 - 11.3 [facility] Comment on above: Performed By: #### U MELISA #### [facility] [address] [place] [address] Erythrocyte distribution width (RBC) [Ratio] 17.1 % High 11.5 - 14.5 [facility] Comment on above: Performed By: #### U MELISA #### [facility] [address] [place] [address] Hematocrit (Bld) [Volume fraction] 19.6 % Low 41.0 - 52.0 [facility] Comment on above: Performed By: #### U MELISA #### [facility] [address] [place] [address] Hemoglobin (Bld) [Mass/Vol] 7.0 g/dL Low 13.5 - 17.5 [facility] Comment on above: Performed By: #### U MELISA #### [facility] [address] [place] [address] MCHC (RBC) [Mass/Vol] 35.7 g/dL Normal 32.0 - 36.0 [facility] Comment on above: Performed By: #### U MELISA #### [facility] [address] [place] [address] MCV (RBC) [Entitic vol] 86 fL Normal 80 - 100 [facility] Comment on above: Performed By: #### U MELISA #### [facility] [address] [place] [address] Nucleated RBC/100 WBC (Bld) [Ratio] 0.3 /100 WBC Normal 0.0-0.0 [facility] Comment on above: Performed By: #### U MELISA #### [facility] [address] [place] [address] Platelets (Bld) [#/Vol] 124 10*3/uL Low 150 - 450 [facility] Comment on above: Performed By: #### U MELISA #### [facility] [address] [place] [address] RBC (Bld) [#/Vol] 2.29 x10E12/L Low 4.50 - 5.90 [facility] Comment on above: Performed By: #### U MELISA #### [facility] [address] [place] [address] WBC (Bld) [#/Vol] 16.1 10*3/uL High 4.4 - 11.3 [facility] Comment on above: Performed By: #### U MELISA #### [facility] [address] [facility] [place] [place] [address] CBC AND DIFFERENTIALon 01-22 % AUTOMATED IMMATURE GRAN 0.8 % Normal 0.0 - 0.9 [facility] Comment on above: Result Comment: Sisi ture Granulocyte Count (IG) includes promyelocytes, myelocytes and metamyelocytes but does not include bands. Percent differential counts (%) should be interpreted in the context of the absolute cell counts (cells/L). Performed By: #### E SRWS #### [facility] [address] [place] [address] Basophils (Bld) [#/Vol] 0.02 10*3/uL Normal 0.00 - 0.10 [facility] Comment on above: Performed By: #### E SRWS #### [facility] [address] [place] [address] Basophils/100 WBC (Bld) 0.1 % Normal 0.0 - 2.0 [facility] Comment on above: Performed By: #### E SRWS #### [facility] [address] [place] [address] Eosinophils (Bld) [#/Vol] 0.01 10*3/uL Normal 0.00 - 0.70 [facility] Comment on above: Performed By: #### E SRWS #### [facility] [address] [place] [address] Eosinophils/100 WBC (Bld) 0.0 % Normal 0.0 - 6.0 [facility] Comment on above: Performed By: #### E SRWS #### [facility] [address] [place] [address] Erythrocyte distribution width (RBC) [Ratio] 17.0 % High 11.5 - 14.5 [facility] Comment on above: Performed By: #### E SRWS #### [facility] [address] [place] [address] Hematocrit (Bld) [Volume fraction] 27.6 % Low 41.0 - 52.0 [facility] Comment on above: Performed By: #### E SRWS #### [facility] [address] [place] [address] Hemoglobin (Bld) [Mass/Vol] 9.3 g/dL Low 13.5 - 17.5 [facility] Comment on above: Performed By: #### E SRWS #### [facility] [address] [place] [address] Lymphocytes (Bld) [#/Vol] 1.26 10*3/uL Normal 1.20 - 4.80 [facility] Comment on above: Performed By: #### E SRWS #### [facility] [address] [place] [address] Lymphocytes/100 WBC (Bld) 5.7 % Normal 13.0 - 44.0 [facility] Comment on above: Performed By: #### E SRWS #### [facility] [address] [place] [address] MCHC (RBC) [Mass/Vol] 33.7 g/dL Normal 32.0 - 36.0 [facility] Comment on above: Performed By: #### E SRWS #### [facility] [address] [place] [address] MCV (RBC) [Entitic vol] 92 fL Normal 80 - 100 [facility] Comment on above: Performed By: #### E SRWS #### [facility] [address] [place] [address] Monocytes (Bld) [#/Vol] 2.68 10*3/uL High 0.10 - 1.00 [facility] Comment on above: Performed By: #### E SRWS #### [facility] [address] [place] [address] Monocytes/100 WBC (Bld) 12.2 % Normal 2.0 - 10.0 [facility] Comment on above: Performed By: #### E SRWS #### [facility] [address] [place] [address] Neutrophils (Bld) [#/Vol] 17.80 10*3/uL High 1.20 - 7.70 [facility] Comment on above: Performed By: #### E SRWS #### [facility] [address] [place] [address] Neutrophils/100 WBC (Bld) 81.2 % Normal 40.0 - 80.0 [facility] Comment on above: Performed By: #### E SRWS #### [facility] [address] [place] [address] Nucleated RBC/100 WBC (Bld) [Ratio] 0.3 /100 WBC Normal 0.0-0.0 [facility] Comment on above: Performed By: #### E SRWS #### [facility] [address] [place] [address] Platelets (Bld) [#/Vol] 160 10*3/uL Normal 150 - 450 [facility] Comment on above: Performed By: #### E SRWS #### [facility] [address] [place] [address] RBC (Bld) [#/Vol] 3.00 x10E12/L Low 4.50 - 5.90 [facility] Comment on above: Performed By: #### E SRWS #### [facility] [address] [place] [address] WBC (Bld) [#/Vol] 22.0 10*3/uL High 4.4 - 11.3 [facility] Comment on above: Performed By: #### E SRWS #### [facility] [address] [place] [address] COAGULATION SCREENon 020 aPTT Coag (Bld) [Time] Canceled Normal [facility] Comment on above: Order Comment: TEST COAGULATION SCREEN WAS CANCELLED, 01/23/2020 07:00 NO SPECIMEN RECEIVEDIN LAB. Result Comment: Note new reference range as of 11/11/2019. THE APTT IS NO LONGER USED FOR MONITORING UNFRACTIONATED HEPARIN THERAPY. FOR MONITORING HEPARIN THERAPY, USE THE HEPARIN ASSAY. Performed By: #### D BILI #### [facility] [address] [place] [address] INR Coag (PPP) [Relative time] Canceled Normal [facility] Comment on above: Order Comment: TEST COAGULATION SCREEN WAS CANCELLED, 01/23/2020 07:00 NO SPECIMEN RECEIVEDIN LAB. Performed By: #### D BILI #### [facility] [address] [place] [address] PT Coag (PPP) [Time] Canceled Normal [facility] [place] Comment on above: Order Comment: TEST COAGULATION SCREEN WAS CANCELLED, 01/23/2020 07:00 NO SPECIMEN RECEIVEDIN LAB. Result Comment: Note new reference range as of 11/11/2019. Performed By: #### D BILI #### [facility] [address] [place] [address] aPTT Coag (Bld) [Time] 19 s Low 25 - 35 [facility] Comment on above: Result Comment: Note new reference range as of 11/11/2019. THE APTT IS NO LONGER USED FOR MONITORING UNFRACTIONATED HEPARIN THERAPY. FOR MONITORING HEPARIN THERAPY, USE THE HEPARIN ASSAY. Performed By: #### U MELISA #### [facility] [address] [facility] [place] [address] INR Coag (PPP) [Relative time] 1.2 {INR} High 0.9 - 1.1 [facility] Comment on above: Performed By: #### U MELISA #### [facility] [address] [place] [address] PT Coag (PPP) [Time] 14.0 s High 10.1 - 13.3 [facility] Comment on above: Result Comment: Note new reference range as of 11/11/2019. Performed By: #### U MELISA #### [facility] [address] [place] [address] Clinical Event Note-Concern for Bleedingon 01-23-2020 Clinical [...] 23-Jan-2020 04:47 by Moy Chino (Resident)) Normal [facility] Daily Progress Note - Critic al Lenchoon 01-23-2020 Daily Progress Note - Critical Care Subjective Data: ID Statement: CHRISTIANO ZHENG is a 24 year old Male who is Hospital Day # 3 and ICU Day #2 and POD #2 for 1. laparoscopic splenectomy. Objective Data: Objective Information T PRBPSpO2 [id number]/4791% Date/Time01/22 4:0087 6:0087 6:0087 6:0087 6:00 Range(36.3C - 37.4C ) (101 - 136 ) (8 - 45 ) (84 - 163 )/ (47 - 99 ) (91% - 100% ) As of 23-Jan-2020 06:00:00, patient is on 2 L/min of oxygen via nasal cannula. Highest temp of 37.4 C was recorded at 01/22 0:00 Pain reported at 01/22 4:00: 4 = Moderate ---- Intake and Output ----- Mn/Dy/[facility] Jan 23, 2020 6:00 [id number] Jan 22, 2020 10:00 [id number] Jan 22, 2020 2:00 [id number] The Intake and Output Totals for the last 24 hours are: [facility]Outpl[facility] [id number] Drain and tube details (included in I&O [...] Recent Arterial Blood Gas Results 01/22/2020 12:51 [id number] pH7.36 [id number] SO299 Base Excess-2.1 Jwauibylciy53.2 Assessment and Plan: Daily Risk Screen: Does patient have a central lineno Does patient have an indwelling urinary catheteryes Plan for indwelling urinary catheter removal todayyes Is the patient intubatedno Assessment/Plan: Assessment/Plan: Neuro: AOx3. -No need for sedation -PRN pain medications IV will change to PO when tolerated - Fentanyl [employer] controlling pain well CV: no history of [...] who also agrees Farzad Koenig PGY4/CA3 SICU 01028 Code Status: Code StatusFull Code Signature/Cosignature/A ttestation: [...] the note. I personally evaluated the patient [id number] Critical Care PatientI have reviewed and evaluated [...] 23-Jan-2020 13:17 by Annette Irving) Normal [facility] Daily Progress Note-Surgeryo n 01-23-2020 Daily Progress [...] yesterday. Objective Data: Objective Information: T PRBPSpO2 [id number]/75892 % Date/Time01/22 4: 7: 7: 7: 7:00 [...] ----- Mn/Dy/Year TimeIntakeOutputNet Jan 23, 2020 6:00 [id number] Jan 22, 2020 10:00 [id number] Jan 22, 2020 2:00 [id number] The Intake and Output Totals for the last 24 hours are: IntakeOutputNet [id number] Physical Exam: Constitutional: Patient lying comfortably in [...] Recent Arterial Blood Gas Results 01/22/2020 12:51 [id number] pH7.36 [id number] SO299 Base Excess-2.1 Hqshroocdnr46.2 Assessment and Plan: Comorbidities: Comorbidity: Other Assessment: [...] Dr. Martina Sylvester, PGY-1 [facility] p: [id number] Signature/Cosignature/A ttestation: Note Completion: I am a: [...] the note. I personally evaluated the patient [id number] Electronic Signatures: Eagle Mcmanus) (Signed 23-Jan-2020 08:13) Authored: Signature/Cosignature/A ttestation Co-Signer: Service, Subjective Data, Objective Data, Assessment and Plan, Signature/Cosignature/A ttestation Rosie Sylvester (Resident)) (Signed 23-Jan-2020 08:02) Authored: Service, Subjective Data, Objective Data, Assessment and Plan, Signature/Cosignature/A ttestation Last Updated: 23-Jan-2020 08:13 by Eagle Mcmanus) Normal [facility] FIBRINOGENon 01-23-2020 FIBRINOGEN Canceled Normal [facility] Comment on above: Order Comment: TEST FIBRINOGEN WAS CANCELLED, 01/23/2020 07:00 NO SPECIMEN RECEIVED IN LAB. Performed By: #### D BILI #### [facility] [address] [place] [address] FIBRINOGEN 248 mg/dL Normal 200 - 400 [facility] Comment on above: Performed By: #### U MELISA #### [facility] [address] [place] [address] GLUCOSE-POCTon 01-23-2020 Glucose [Mass/Vol] 116 mg/dL High 74 - 99 [facility] Comment on above: Result Comment: Glu2 : Fingertip - Capillar Performed By: #### U MELISA #### [facility] [address] [place] [address] LACTATEon 01-23-2020 Lactate [Moles/Vol] Canceled Normal [facility] Comment on above: Order Comment: TEST LACTATE WAS CANCELLED, 01/23/2020 05:03 NO SPECIMEN RECEIVED IN LAB. Result Comment: Dacia puncture immediately after or during the administration of Metamizole may lead to falsely low results. Testing should be performed immediately prior to Metamizole dosing. Performed By: #### D BILI #### [facility] [address] [place] [address] MAGNESIUMon 01-23-2020 Magnesium [Mass/Vol] 2.26 mg/dL Normal 1.60 - 2.40 [facility] Comment on above: Performed By: #### D BILI #### [facility] [address] [facility] [place] [address] RENAL FUNCTION PANELon 01-22 Albumin [Mass/Vol] 3.8 g/dL Normal 3.4 - 5.0 [facility] Comment on above: Performed By: #### D BILI #### [facility] [address] [place] [address] Anion gap [Moles/Vol] 8 mmol/L Low 10 - 20 [facility] Comment on above: Performed By: #### D BILI #### [facility] [address] [place] [address] Calcium [Mass/Vol] 8.0 mg/dL Low 8.6 - 10.6 [facility] Comment on above: Performed By: #### D BILI #### [facility] [address] [place] [address] Chloride [Moles/Vol] 104 mmol/L Normal 98 - 107 [facility] [place] Comment on above: Performed By: #### D BILI #### [facility] [address] [place] [address] Creatinine [Mass/Vol] 0.86 mg/dL Normal 0.50 - 1.30 [facility] Comment on above: Performed By: #### D BILI #### [facility] [address] [place] [address] GFR- AM. >60 Normal >60 [facility] Comment on above: Result Comment: CALC ULATIONS OF ESTIMATED GFR ARE PERFORMED USING THE MDRD STUDY EQUATION FOR THE IDMS-TRACEABLE CREATININE METHODS. CLIN CHEM 2007;53:766-72 Performed By: #### D BILI #### [facility] [address] [place] [address] GFR-NON AM. >60 Normal >60 [facility] Comment on above: Performed By: #### D BILI #### [facility] [address] [place] [address] Glucose [Mass/Vol] 123 mg/dL High 74 - 99 [facility] Comment on above: Performed By: #### D BILI #### [facility] [address] [place] [address] HCO3 (Bld) [Moles/Vol] 31 mmol/L Normal 21 - 32 [facility] Comment on above: Performed By: #### D BILI #### [facility] [address] [place] [address] Phosphate [Mass/Vol] 2.8 mg/dL Normal 2.5 - 4.9 [facility] [place] Comment on above: Result Comment: The performance characteristics of phosphorus testing in heparinized plasma have been validated by the individual laboratory site where testing is performed. Testing on heparinized plasma is not approved by the FDA; however, such approval is not necessary. Performed By: #### D BILI #### [facility] [address] [place] [address] Potassium [Moles/Vol] 4.1 mmol/L Normal 3.5 - 5.3 [facility] Comment on above: Performed By: #### D BILI #### [facility] [address] [place] [address] Sodium [Moles/Vol] 139 mmol/L Normal 136 - 145 [facility] Comment on above: Performed By: #### D BILI #### [facility] [address] [place] [address] Urea nitrogen [Mass/Vol] 12 mg/dL Normal 6 - 23 [facility] Comment on above: Performed By: #### D BILI #### [facility] [address] [facility] [place] [address] 3RD ORD/ABD-Aon 01-22-2020 3RD ORD/ABD-A Patient Name: CHRISTIANO ZHENG STUDY: VASCULAR EMBO/OCCL, INCLUDE S; ADD //A-P; EXT-ART/UNI-A; EACH-ADD; EXT/UNI; VISCERAL; ULTRASOUND GUIDANCE FOR VASCULAR ACCESS; ORD/ABD-A; 01/22/2020 12:28 pm PROCEDURES: 1. Right [...] of the abdomen and pelvis ACCESSION NUMBER(S): [id number]; [id number]; [id number]; [id number]; [id number]; [id number]; [id number]; [id number]; [id number] ORDERING CLINICIAN: FARZAD KOENIG OPERATORS: Dr. Sg [...] The needle was exchanged for a 5 [place] transitional catheter. The inner dilator and the 0.018 wire were removed and a 0.035 wire was advanced into the abdominal aorta. The transitional catheter was exchanged for a 5 [place] African vascular sheath, which was attached to a heparinized pressure bag of normal saline. Right common femoral arteriogram was performed which demonstrates adequate arterial access for use of closure device, cephalad to the bifurcation and caudad to the inferior epigastric artery origin. A 5 [place] Cobra C2 catheter was advanced over the [...] extravasation. Electronically signed by: FREDDIE HURT MD [facility] ADD /A-Felice 01-22-2020 ADD /A-P Patient Name: CHRISTIANO ZHENG STUDY: VASCULAR EMBO/OCCL, INCLUDE S; ADD /A-P; EXT-ART/UNI-A; EACH-ADD; EXT/UNI; VISCERAL; ULTRASOUND GUIDANCE FOR [...] of the abdomen and pelvis ACCESSION NUMBER(S): [id number]; [id number]; [id number]; [id number]; [id number]; [id number]; [id number]; [id number]; [id number]; [id number] ORDERING CLINICIAN: FARZAD KOENIG OPERATORS: Dr. Sg [...] The needle was exchanged for a 5 [place] transitional catheter. The inner dilator and the 0.018 wire were removed and a 0.035 wire was advanced into the abdominal aorta. The transitional catheter was exchanged for a 5 [place] vascular sheath, which was attached to a heparinized pressure bag of normal saline. Right common femoral arteriogram was performed which demonstrates adequate arterial access for use of closure device, cephalad to the bifurcation and caudad to the inferior epigastric artery origin. A 5 [place] Cobra C2 catheter was advanced over the wire and used to cannulate the celiac artery and subsequently the splenic artery. Digital subtraction angiography was performed which reveals focus of active arterial extravasation arising from a branch of the distal splenic artery in the surgical bed correlating with findings seen on same day CTA. A [employer] microcatheter was coaxially loaded and advanced over [...] signed by: FREDDIE HURT MD Normal [facility] ARTERIAL FULL PANELon 2019 Anion gap [Moles/Vol] 11 mmol/L Normal 10 - 25 [facility] Comment on above: Performed By: #### L #### [facility] [address] [place] [address] BASE EXCESS-BLOOD -2.1 mmol/L Low -2.0 - 3.0 [facility] Comment on above: Performed By: #### L DH #### [facility] [address] [place] [address] CALCIUM,IONIZED 1.13 mmol/L Normal 1.10 - 1.33 [facility] Comment on above: Performed By: #### L DH #### [facility] [address] [place] [address] Chloride [Moles/Vol] 103 mmol/L Normal 98 - 107 [facility] [place] Comment on above: Performed By: #### L DH #### [facility] [address] [place] [address] Glucose [Mass/Vol] 147 mg/dL High 74 - 99 [facility] Comment on above: Performed By: #### L DH #### [facility] [address] [place] [address] Hematocrit (Bld) [Volume fraction] 23.0 % Low 41.0 - 52.0 [facility] Comment on above: Performed By: #### L DH #### [facility] [address] [place] [address] HGB,CALCULATED 7.8 g/dL Low 13.5 - 17.5 [facility] Comment on above: Performed By: #### L DH #### [facility] [address] [place] [address] Lactate [Moles/Vol] 3.4 mmol/L High 0.4 - 2.0 [facility] Comment on above: Performed By: #### L DH #### [facility] [address] [place] [address] Oxygen (Bld) [Partial pressure] 154 mm[Hg] High 85 - 95 [facility] Comment on above: Performed By: #### L DH #### [facility] [address] [place] [address] PCO2 41 mmHg Normal 38 - 42 [facility] Comment on above: Performed By: #### L DH #### [facility] [address] [place] [address] pH (Bld) 7.36 [pH] Low 7.38 - 7.42 [facility] Comment on above: Performed By: #### L DH #### [facility] [address] [place] [address] Potassium [Moles/Vol] 5.3 mmol/L Normal 3.5 - 5.3 [facility] Comment on above: Performed By: #### L DH #### [facility] [address] [place] [address] RBC (Bld) [#/Vol] 23.2 mmol/L Normal 22.0 - 26.0 [facility] Comment on above: Performed By: #### L DH #### [facility] [address] [place] [address] SO2 99 % Normal 94 - 100 [facility] Comment on above: Performed By: #### L DH #### [facility] [address] [place] [address] Sodium [Moles/Vol] 132 mmol/L Low 136 - 145 [facility] Comment on above: Performed By: #### L DH #### [facility] [address] [place] [address] BA CTA ABDOMEN PELVIS WITH C ONT INCL NON CONT IMAGE W POST PROCon 01-22-2020 BA CTA ABDOMEN PELVIS WITH CONT INCL NON CONT IMAGE W POST PROC Patient Name: CHRISTIANO ZHENG STUDY: CTA ABDOMEN PELVIS WITH CONT INCL NON CONT IMAGE W POST PROC; 01/22/2020 9:40 am INDICATION: Bleeding s/p spleenectomy, Lie Flat: Yes. COMPARISON: CT abdomen pelvis dated 11/14/2019 ACCESSION NUMBER(S): [id number] ORDERING CLINICIAN: ANNETTE KAUFMAN TECHNIQUE: CT of [...] as stated. This study was interpreted at [facility], [place], [place]. Electronically signed by: FREDDIE HURT MD Normal [facility] BASIC METABOLIC PANELon 08-0 Anion gap [Moles/Vol] 15 mmol/L Normal 10 - 20 [facility] Comment on above: Performed By: #### C BCDF #### [facility] [address] [place] [address] Calcium [Mass/Vol] 8.1 mg/dL Low 8.6 - 10.6 [facility] Comment on above: Performed By: #### C BCDF #### [facility] [address] [place] [address] Chloride [Moles/Vol] 103 mmol/L Normal 98 - 107 [facility] [place] Comment on above: Performed By: #### C BCDF #### [facility] [address] [place] [address] Creatinine [Mass/Vol] 1.08 mg/dL Normal 0.50 - 1.30 [facility] Comment on above: Performed By: #### C BCDF #### [facility] [address] [place] [address] GFR- AM. >60 Normal >60 [facility] Comment on above: Result Comment: CALC ULATIONS OF ESTIMATED GFR ARE PERFORMED USING THE MDRD STUDY EQUATION FOR THE IDMS-TRACEABLE CREATININE METHODS. CLIN CHEM 2007;53:766-72 Performed By: #### C BCDF #### [facility] [address] [place] [address] GFR-NON AM. >60 Normal >60 [facility] Comment on above: Performed By: #### C BCDF #### [facility] [address] [place] [address] Glucose [Mass/Vol] 191 mg/dL High 74 - 99 [facility] Comment on above: Performed By: #### C BCDF #### DANIELLE CRUZ CN[facility] [address] [place] [address] HCO3 (Bld) [Moles/Vol] 24 mmol/L Normal 21 - 32 [facility] Comment on above: Performed By: #### C BCDF #### [facility] [address] [place] [address] Potassium [Moles/Vol] 4.2 mmol/L Normal 3.5 - 5.3 [facility] Comment on above: Performed By: #### C BCDF #### DANIELLE CRUZ CNTR [address] [place] [address] Sodium [Moles/Vol] 138 mmol/L Normal 136 - 145 [facility] Comment on above: Performed By: #### C BCDF #### [facility] [address] [place] [address] Urea nitrogen [Mass/Vol] 17 mg/dL Normal 6 - 23 [facility] Comment on above: Performed By: #### C BCDF #### DANIELLE CANCER [facility] [address] [facility] [place] [address] CALCIUM, IONIZEDon 0 CALCIUM,IONIZED 1.12 mmol/L Normal 1.10 - 1.33 [facility] Comment on above: Result Comment: The performance characteristics of ionized calcium tested in heparinized plasma or serum have been validated by the individual laboratory site where testing is performed. Testing on heparinized plasma or serum is not approved by the FDA; however, such approval is not necessary. Performed By: #### L DH #### DANIELLE CANCER CNTR [address] [place] [address] CBCon 01-22-2020 Erythrocyte distribution width (RBC) [Ratio] 17.3 % High 11.5 - 14.5 [facility] Comment on above: Performed By: #### L DH #### DANIELLE CRUZ CNTR [address] [place] [address] Hematocrit (Bld) [Volume fraction] 25.8 % Low 41.0 - 52.0 [facility] Comment on above: Performed By: #### L DH #### DANIELLE CRUZ CNTR [address] [place] [address] Hemoglobin (Bld) [Mass/Vol] 8.9 g/dL Low 13.5 - 17.5 [facility] Comment on above: Performed By: #### L DH #### DANIELLE CRUZ [facility] [address] [facility] [place] [address] MCHC (RBC) [Mass/Vol] 34.5 g/dL Normal 32.0 - 36.0 [facility] Comment on above: Performed By: #### L DH #### DANIELLE CRUZ CNTR [address] [place] [address] MCV (RBC) [Entitic vol] 88 fL Normal 80 - 100 [facility] Comment on above: Performed By: #### L DH #### DANIELLE CRUZ [facility] [address] [facility] [place] [address] Nucleated RBC/100 WBC (Bld) [Ratio] 0.2 /100 WBC Normal 0.0-0.0 [facility] Comment on above: Performed By: #### L DH #### DANIELLE CRUZ CNTR [address] [place] [address] Platelets (Bld) [#/Vol] 117 10*3/uL Low 150 - 450 [facility] Comment on above: Performed By: #### L DH #### DANIELLE CANCER CNTR [address] [place] [address] RBC (Bld) [#/Vol] 2.92 x10E12/L Low 4.50 - 5.90 [facility] Comment on above: Performed By: #### L DH #### DANIELLE CANCER CNTR [address] [place] [address] WBC (Bld) [#/Vol] 20.5 10*3/uL High 4.4 - 11.3 [facility] Comment on above: Performed By: #### L DH #### DANIELLE CANCER CNTR [address] [place] [address] Erythrocyte distribution width (RBC) [Ratio] Canceled Normal [facility] Comment on above: Order Comment: TEST CBC WAS CANCELLED, 01/22/2020 14:55 SPECIMEN CLOTTED.PLEASE RESUBMIT. Performed By: #### L DH #### DANIELLE CANCER CNTR [address] [facility] [place] [address] Hematocrit (Bld) [Volume fraction] Canceled Normal [facility] Comment on above: Order Comment: TEST CBC WAS CANCELLED, 01/22/2020 14:55 SPECIMEN CLOTTED.PLEASE RESUBMIT. Performed By: #### L DH #### DANIELLE CANCER CNTR [address] [place] [address] Hemoglobin (Bld) [Mass/Vol] Canceled Normal [facility] Comment on above: Order Comment: TEST CBC WAS CANCELLED, 01/22/2020 14:55 SPECIMEN CLOTTED.PLEASE RESUBMIT. Performed By: #### L DH #### DANIELLE CANCER CNTR [address] [facility] [place] [address] MCHC (RBC) [Mass/Vol] Canceled Normal [facility] Comment on above: Order Comment: TEST CBC WAS CANCELLED, 01/22/2020 14:55 SPECIMEN CLOTTED.PLEASE RESUBMIT. Performed By: #### L DH #### DANIELLE CANCER CNTR [address] [facility] [place] [address] MCV (RBC) [Entitic vol] Canceled Normal [facility] Comment on above: Order Comment: TEST CBC WAS CANCELLED, 01/22/2020 14:55 SPECIMEN CLOTTED.PLEASE RESUBMIT. Performed By: #### L DH #### DANIELLE CANCER CNTR [address] [facility] [place] [address] Nucleated RBC/100 WBC (Bld) [Ratio] Canceled Normal [facility] Comment on above: Order Comment: TEST CBC WAS CANCELLED, 01/22/2020 14:55 SPECIMEN CLOTTED.PLEASE RESUBMIT. Performed By: #### L DH #### DANIELLE CANCER CNTR [address] [place] [address] Platelets (Bld) [#/Vol] Canceled Normal [facility] Comment on above: Order Comment: TEST CBC WAS CANCELLED, 01/22/2020 14:55 SPECIMEN CLOTTED.PLEASE RESUBMIT. Performed By: #### L DH #### DANIELLE CANCER CNTR [address] [place] [address] RBC (Bld) [#/Vol] Canceled Normal [facility] Comment on above: Order Comment: TEST CBC WAS CANCELLED, 01/22/2020 14:55 SPECIMEN CLOTTED.PLEASE RESUBMIT. Performed By: #### L DH #### DANIELLE CANCER [facility] [address] [facility] [place] [address] WBC (Bld) [#/Vol] Canceled Normal [facility] Comment on above: Order Comment: TEST CBC WAS CANCELLED, 01/22/2020 14:55 SPECIMEN CLOTTED.PLEASE RESUBMIT. Performed By: #### L DH #### [facility] [address] [place] [address] Erythrocyte distribution width (RBC) [Ratio] 18.6 % High 11.5 - 14.5 [facility] Comment on above: Performed By: #### C BCDF #### DANIELLE CANCER CNTR [address] [place] [address] Hematocrit (Bld) [Volume fraction] 19.9 % Low 41.0 - 52.0 [facility] Comment on above: Performed By: #### C BCDF #### DANIELLE CANCER CNTR [address] [facility] [place] [address] Hemoglobin (Bld) [Mass/Vol] 6.8 g/dL Low 13.5 - 17.5 [facility] Comment on above: Performed By: #### C BCDF #### DANIELLE CANCER CNTR [address] [facility] [place] [address] MCHC (RBC) [Mass/Vol] 34.2 g/dL Normal 32.0 - 36.0 [facility] Comment on above: Performed By: #### C BCDF #### DANIELLE CRUZ CNTR [address] [place] [address] MCV (RBC) [Entitic vol] 88 fL Normal 80 - 100 [facility] Comment on above: Performed By: #### C BCDF #### DANIELLE CANCER CNTR [address] [place] [address] Nucleated RBC/100 WBC (Bld) [Ratio] 0.0 /100 WBC Normal 0.0-0.0 [facility] Comment on above: Performed By: #### C BCDF #### DANIELLE CRUZ CNTR [address] [place] [address] Platelets (Bld) [#/Vol] 141 10*3/uL Low 150 - 450 [facility] Comment on above: Performed By: #### C BCDF #### DANIELLE CANCER CNTR [address] [place] [address] RBC (Bld) [#/Vol] 2.27 x10E12/L Low 4.50 - 5.90 [facility] Comment on above: Performed By: #### C BCDF #### DANIELLE CANCER CNTR [address] [place] [address] WBC (Bld) [#/Vol] 16.2 10*3/uL High 4.4 - 11.3 [facility] Comment on above: Performed By: #### C BCDF #### DANIELLE CANCER CNTR [address] [place] [address] Erythrocyte distribution width (RBC) [Ratio] 18.5 % High 11.5 - 14.5 [facility] Comment on above: Performed By: #### R ETIC #### DANIELLE CANCER CNTR [address] [place] [address] Hematocrit (Bld) [Volume fraction] 25.2 % Low 41.0 - 52.0 [facility] Comment on above: Performed By: #### R ETIC #### DANIELLE CANCER CNTR [address] [place] [address] Hemoglobin (Bld) [Mass/Vol] 8.6 g/dL Low 13.5 - 17.5 [facility] Comment on above: Performed By: #### R ETIC #### DANIELLE CANCER CNTR [address] [place] [address] MCHC (RBC) [Mass/Vol] 34.1 g/dL Normal 32.0 - 36.0 [facility] Comment on above: Performed By: #### R ETIC #### DANIELLE CANCER CNTR [address] [place] [address] MCV (RBC) [Entitic vol] 85 fL Normal 80 - 100 [facility] Comment on above: Performed By: #### R ETIC #### DANIELLE CANCER CNTR [address] [place] [address] Nucleated RBC/100 WBC (Bld) [Ratio] 0.0 /100 WBC Normal 0.0-0.0 [facility] Comment on above: Performed By: #### R ETIC #### DANIELLE CANCER CNTR [address] [place] [address] Platelets (Bld) [#/Vol] 160 10*3/uL Normal 150 - 450 [facility] Comment on above: Performed By: #### R ETIC #### DANIELLE CANCER CNTR [address] [place] [address] RBC (Bld) [#/Vol] 2.95 x10E12/L Low 4.50 - 5.90 [facility] Comment on above: Performed By: #### R ETIC #### DANIELLE CANCER CNTR [address] [place] [address] WBC (Bld) [#/Vol] 17.8 10*3/uL High 4.4 - 11.3 [facility] Comment on above: Performed By: #### R ETIC #### DANIELLE CANCER CNTR [address] [place] [address] Erythrocyte distribution width (RBC) [Ratio] 18.6 % High 11.5 - 14.5 [facility] Comment on above: Performed By: #### R ETIC #### DANIELLE CANCER CNTR [address] [place] [address] Hematocrit (Bld) [Volume fraction] 32.4 % Low 41.0 - 52.0 [facility] Comment on above: Performed By: #### R ETIC #### DANIELLE CANCER CNTR [address] [place] [address] Hemoglobin (Bld) [Mass/Vol] 11.2 g/dL Low 13.5 - 17.5 [facility] Comment on above: Performed By: #### R ETIC #### DANIELLE CANCER CNTR [address] [place] [address] MCHC (RBC) [Mass/Vol] 34.6 g/dL Normal 32.0 - 36.0 [facility] Comment on above: Performed By: #### R ETIC #### DANIELLE CANCER CNTR [address] [place] [address] MCV (RBC) [Entitic vol] 85 fL Normal 80 - 100 [facility] Comment on above: Performed By: #### R ETIC #### DANIELLE CANCER CNTR [address] [place] [address] Nucleated RBC/100 WBC (Bld) [Ratio] 0.1 /100 WBC Normal 0.0-0.0 [facility] Comment on above: Performed By: #### R ETIC #### DANIELLE CANCER CNTR [address] [place] [address] Platelets (Bld) [#/Vol] 197 10*3/uL Normal 150 - 450 [facility] Comment on above: Performed By: #### R ETIC #### DANIELLE CANCER CNTR [address] [place] [address] RBC (Bld) [#/Vol] 3.82 x10E12/L Low 4.50 - 5.90 [facility] Comment on above: Performed By: #### R ETIC #### DANIELLE CANCER CNTR [address] [place] [address] WBC (Bld) [#/Vol] 23.6 10*3/uL High 4.4 - 11.3 [facility] Comment on above: Performed By: #### R ETI #### [facility] CAN[facility]ER [facility] [address] [facility] [place] [address] COAGULATION SCREENon 020 aPTT Coag (Bld) [Time] 24 s Low 25 - 35 [facility] Comment on above: Result Comment: Note new reference range as of 11/11/2019. THE APTT IS NO LONGER USED FOR MONITORING UNFRACTIONATED HEPARIN THERAPY. FOR MONITORING HEPARIN THERAPY, USE THE HEPARIN ASSAY. Performed By: #### L DH #### [facility] CANCER [facility] [address] [facility] [place] [address] INR Coag (PPP) [Relative time] 1.3 {INR} High 0.9 - 1.1 [facility] Comment on above: Performed By: #### L DH #### DANIELLE CANCER [facility] [address] [place] [address] PT Coag (PPP) [Time] 15.7 s High 10.1 - 13.3 [facility] Comment on above: Result Comment: Note new reference range as of 11/11/2019. Performed By: #### L DH #### DANIELLE CRUZ [facility] [address] [place] [address] aPTT Coag (Bld) [Time] Canceled Normal [facility] Comment on above: Order Comment: TEST COAGULATION SCREEN WAS CANCELLED, 01/22/2020 10:23 SPECIMENCLOTTED.PLEASE RESUBMIT. Result Comment: Note new reference range as of 11/11/2019. THE APTT IS NO LONGER USED FOR MONITORING UNFRACTIONATED HEPARIN THERAPY. FOR MONITORING HEPARIN THERAPY, USE THE HEPARIN ASSAY. Performed By: #### L DH #### [facility] CAN[facility] [address] [facility] [place] [address] INR Coag (PPP) [Relative time] Canceled Normal [facility] Comment on above: Order Comment: TEST COAGULATION SCREEN WAS CANCELLED, 01/22/2020 10:23 SPECIMENCLOTTED.PLEASE RESUBMIT. Performed By: #### L DH #### DANIELLE CANCER CNTR [address] [facility] [place] [address] PT Coag (PPP) [Time] Canceled Normal [facility] [place] Comment on above: Order Comment: TEST COAGULATION SCREEN WAS CANCELLED, 01/22/2020 10:23 SPECIMENCLOTTED.PLEASE RESUBMIT. Result Comment: Note new reference range as of 11/11/2019. Performed By: #### L DH #### DANIELLE CANCER CNTR [address] [place] [address] aPTT Coag (Bld) [Time] 22 s Low 25 - 35 [facility] Comment on above: Result Comment: Note new reference range as of 11/11/2019. THE APTT IS NO LONGER USED FOR MONITORING UNFRACTIONATED HEPARIN THERAPY. FOR MONITORING HEPARIN THERAPY, USE THE HEPARIN ASSAY. Performed By: #### R ETIC #### [facility] [address] [place] [address] INR Coag (PPP) [Relative time] 1.2 {INR} High 0.9 - 1.1 [facility] Comment on above: Performed By: #### R ETIC #### [facility] CAN[facility]ER [facility] [address] [place] [address] PT Coag (PPP) [Time] 14.4 s High 10.1 - 13.3 [facility] Comment on above: Result Comment: Note new reference range as of 11/11/2019. Performed By: #### R ETIC #### [facility] CANCER [facility] [address] [place] [address] COMPREHENSIVE PANELon 2019 Albumin [Mass/Vol] 3.8 g/dL Normal 3.4 - 5.0 [facility] Comment on above: Performed By: #### C BCDF #### DANIELLE CANCER CNTR [address] [place] [address] ALP [Catalytic activity/Vol] 33 U/L Normal 33 - 120 [facility] Comment on above: Performed By: #### C BCDF #### DANIELLE CANCER CNTR [address] [facility] [place] [address] ALT [Catalytic activity/Vol] 12 U/L Normal 10 - 52 [facility] Comment on above: Result Comment: Haily ents treated with Sulfasalazine may generate falsely decreased results for ALT. Performed By: #### C BCDF #### [facility] CR[facility]Z [facility] [address] [place] [address] Anion gap [Moles/Vol] 20 mmol/L Normal 10 - 20 [facility] Comment on above: Performed By: #### C BCDF #### [facility] CR[facility] [address] [place] [address] AST [Catalytic activity/Vol] 14 U/L Normal 9 - 39 [facility] Comment on above: Performed By: #### C BCDF #### DANIELLE CRUZ [facility] [address] [place] [address] Bilirubin [Mass/Vol] 1.1 mg/dL Normal 0.0 - 1.2 [facility] [place] Comment on above: Performed By: #### C BCDF #### DANIELLE CRUZ [facility] [address] [place] [address] Calcium [Mass/Vol] 8.5 mg/dL Low 8.6 - 10.6 [facility] Comment on above: Performed By: #### C BCDF #### DANIELLE CRUZ [facility] [address] [place] [address] Chloride [Moles/Vol] 102 mmol/L Normal 98 - 107 [facility] [place] Comment on above: Performed By: #### C BCDF #### DANIELLE CRUZ [facility] [address] [place] [address] Creatinine [Mass/Vol] 1.22 mg/dL Normal 0.50 - 1.30 [facility] Comment on above: Performed By: #### C BCDF #### DANIELLE CRUZ [facility] [address] [place] [address] GFR- AM. >60 Normal >60 [facility] Comment on above: Result Comment: CALC ULATIONS OF ESTIMATED GFR ARE PERFORMED USING THE MDRD STUDY EQUATION FOR THE IDMS-TRACEABLE CREATININE METHODS. CLIN CHEM 2007;53:766-72 Performed By: #### C BCDF #### DANIELLE CANCER CNTR [address] [place] [address] GFR-NON AM. >60 Normal >60 [facility] Comment on above: Performed By: #### C BCDF #### DANIELLE CANCER CNTR [address] [place] [address] Glucose [Mass/Vol] 189 mg/dL High 74 - 99 [facility] Comment on above: Performed By: #### C BCDF #### DANIELLE CANCER [facility] [address] [facility] [place] [address] HCO3 (Bld) [Moles/Vol] 20 mmol/L Low 21 - 32 [facility] Comment on above: Performed By: #### C BCDF #### DANIELLE CANCER [facility] [address] [place] [address] Potassium [Moles/Vol] 4.2 mmol/L Normal 3.5 - 5.3 [facility] Comment on above: Performed By: #### C BCDF #### DANIELLE CANCER [facility] [address] [place] [address] Protein [Mass/Vol] 5.0 g/dL Low 6.4 - 8.2 [facility] Comment on above: Performed By: #### C BCDF #### [facility] CAN[facility]ER [facility] [address] [place] [address] Sodium [Moles/Vol] 138 mmol/L Normal 136 - 145 [facility] Comment on above: Performed By: #### C BCDF #### DANIELLE CANCER [facility] [address] [place] [address] Urea nitrogen [Mass/Vol] 16 mg/dL Normal 6 - 23 [facility] Comment on above: Performed By: #### C BCDF #### DANIELLE CANCER [facility] [address] [place] [address] Clinical Event Note-Postop C heck/Acute clinical event [...] Mcmanus. Adelso Lopez MD General Surgery PGY-1 [place] Pager: [phone] Electronic Signatures: Sen Colindres (Resident)) (Signed 22-Jan-2020 05:22) Authored: Clinical Event Adelso Lopez (Resident)) (Signed 22-Jan-2020 05:04) Authored: Clinical Event Last Updated: 22-Jan-2020 05:22 by Sen Colindres (Resident)) Normal [facility] Clinical Event Note-Rapid re sponse/code esequiel 01-22-2020 [...] by Francisca Blanco ( (Resident)) Normal [facility] Daily Progress Note-Surgeryo n 01-22-2020 Daily Progress Note-Surgery Service: Surgery Subjective Data: CHRISTIANO ZHENG is a 24 year old Male who is Hospital Day # 2 and POD #1 for 1. laparoscopic splenectomy. Patient complaining of increased pain in abdomen. Vital signs were unstable and patient became obtunded. Received 4L boluses and 3 pRBCs. Escalated to ICU. Objective Data: Objective Information: T PRBPSpO2 [id number]/43508 % Date/Time8/6 13: 14: 14: 14: 14:00 Range(36.1C - 36.6C ) (88 - 136 ) (15 - 45 ) (84 - 144 )/ (51 - 99 ) (94% - 100% ) Pain reported at 01/21 13:30: sleeping ---- Intake and Output ----- Mn/Dy/Year TimeIntakeOutputNet Jan 22, 2020 2:00 [id number] Jan 22, 2020 6:00 [id number] Jan 21, 2020 10:00 [id number] The Intake and Output Totals for the last 24 hours are: IntakeOutputNet [id number] Physical Exam: Constitutional: Well developed, lying in [...] Lab Comment: CRITICAL LACT CALLED TO FARTUN QUINTANA--LATOYA 2ID, 01/22/2020 10:22 Lactate, Level 8.1 HH Complete Blood Count Trending View [id number] 07:38:00 22-Jan-2020 04:38:00 22-Jan-2020 01:19:00 White Blood Cell Count16.2 H 17.8 H 23.6 H Nucleated Erythrocyte Count0.0 0.0 0.1 Red Blood Cell Count2.27 L 2.95 L 3.82 L HGB6.8 L 8.6 L 11.2 L HCT19.9 L 25.2 L 32.4 L MCV88 85 85 MCHC34.2 34.1 34.6 ZVN236 L 160 197 RDW-CV18.6 H 18.5 H [...] stable Discussed with Dr. Martina Rinaldi MD [facility] General Surgery p: [phone] Attending: Pt had successful embolization of spleen This evening when I saw him he was stable. Will watch in ICU overnight Electronic Signatures: Jluis Rinaldi (Resident)) (Signed 22-Jan-2020 14:57) Authored: Service, Subjective Data, Objective Data, Assessment and Plan, Signature/Cosignature/A ttestation Eagle Mcmanus) (Signed 22-Jan-2020 23:02) Authored: Assessment and Plan, Signature/Cosignature/A ttestation Co-Signer: Service, Subjective Data, Objective Data, Assessment and Plan, Signature/Cosignature/A ttestation Last Updated: 22-Jan-2020 23:02 by Eagle Mcmanus) [facility] Discharge Planning [id number] 01-22-2020 Discharge Planning Note2 Discharge Planning: Anticipated Discharge [id number] Discharge Planning 01/22/2020 Transitional Care Coordination Progress Note 1638 Patient discussed during interdisciplinary rounds. 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 from [facility]. 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 Vitals stable on 2L O2. Pt belongings on transfer are clothing, wallet, some gifts, scrap charger, and cell phone. pt wanted to keep his belongings at the bedside and signed the belongings form. at the bedside. Strip and flip performed with pt 4 laps sites on his abd as his only incision. No other skin issues upon transfer. (Evelyn Fuentes, RN LKD 55) 01/26/2020 Transitional Care Coordination Progress Note: Patient discussed during interdisciplinary rounds. Team members present: TCC and medical staff Plan per Medical/Surgical team: S/p lap Splenectomy 01/20 Payer: Mariel Status: inpatient Discharge disposition: home Potential Barriers: none ADOD: 01/27 Femi Ramos RNsports broadcasting internship Coordinator pager #[phone], 01/28/20 18:28 NURSING DISCHARGE [...] Kathy Chavez RN Assessment: Discharge Planning Assessment [id number] Discharge Planning Assessment Completed byMalena Abbott RN TCC doc halo..[phone] Primary Contact Name and NumberCindy Nicholson [facility] - [phone](1) Stated Reason for Admission my operation (2) Arrived FromOR (2) Readmission Within the Last 30 Daysno previous admission in last 30 days PCPDr. Alem Blunt PCP Last Date Seen12/2019 Preferred Pharmacy Name/Location[facility] Medication Adherence/Afford/Obtain yes InsuranceAnthem HMp Lives Withspouse(2) Living Arrangementshouse(2) Recent Falls/ Injury/ Need Assist with Ambulationdenies Prior Level of FunctioningIADL's Resource/Environmental Concernsnone(2) Anticipated Transition [place](2) Services Anticipated at Transitionnone(2) Electronic Signatures: Femi Ramos (RN) (Signed 26-Jan-2020 17:44) Authored: Discharge Planning Note2 Kathy Chavez (CALOS) (Signed 28-Jan-2020 20:11) Authored: Discharge Planning Note2 Evelyn Fuentes (EDGAR) (Signed 24-Jan-2020 12:36) Authored: Discharge Planning Note2 Malena Abbott (CLIN COOR) (Signed 22-Jan-2020 16:40) Authored: Discharge Planning Note2 Last Updated: 28-Jan-2020 20:11 by Kathy Chavez (RN) References: 1. Data Referenced From Patient Profile - Preop v2 21-Jan-2020 10:09 2. Data Referenced From Patient Profile - Adult v2 21-Jan-2020 18:51 Normal [facility] EACH-ADDon 01-22-2020 EACH-ADD Patient Name: CHRISTIANO ZHENG [...] of the abdomen and pelvis ACCESSION NUMBER(S): [id number]; [id number]; [id number]; [id number]; [id number]; [id number]; [id number]; [id number]; [id number]; [id number] ORDERING CLINICIAN: FARZAD KOENIG OPERATORS: Dr. Sg [...] The needle was exchanged for a 5 [place] transitional catheter. The inner dilator and the 0.018 wire were removed and a 0.035 wire was advanced into the abdominal aorta. The transitional catheter was exchanged for a 5 [place] vascular sheath, which was attached to a heparinized pressure bag of normal saline. Right common femoral arteriogram was performed which demonstrates adequate arterial access for use of closure device, cephalad to the bifurcation and caudad to the inferior epigastric artery origin. A 5 [place] Cobra C2 catheter was advanced over the [...] extravasation. Electronically signed by: FREDDIE HURT MD [facility] EXT-ART/UNI-Aon 01-22-2020 EXT-ART/UNI-A Patient Name: [...] of the abdomen and pelvis ACCESSION NUMBER(S): [id number]; [id number]; [id number]; [id number]; [id number]; [id number] ORDERING CLINICIAN: FARZAD KOENIG OPERATORS: Dr. Sg [...] The needle was exchanged for a 5 [place] transitional catheter. The inner dilator and the 0.018 wire were removed and a 0.035 wire was advanced into the abdominal aorta. The transitional catheter was exchanged for a 5 South African vascular sheath, which was attached to a heparinized pressure bag of normal saline. Right common femoral arteriogram was performed which demonstrates adequate arterial access for use of closure device, cephalad to the bifurcation and caudad to the inferior epigastric artery origin. A 5 [place] African Cobra C2 catheter was advanced over the [...] extravasation. Electronically signed by: FREDDIE HURT MD [facility] EXT/UNIon 01-22-2020 EXT/UNI Patient Name: [...] of the abdomen and pelvis ACCESSION NUMBER(S): [id number]; [id number]; [id number]; [id number]; [id number]; [id number]; [id number]; [id number]; [id number]; [id number]; [id number] ORDERING CLINICIAN: FARZAD KOENIG OPERATORS: Dr. Sg [...] The needle was exchanged for a 5 South African transitional catheter. The inner dilator and the 0.018 wire were removed and a 0.035 wire was advanced into the abdominal aorta. The transitional catheter was exchanged for a 5 South African vascular sheath, which was attached to a heparinized pressure bag of normal saline. Right common femoral arteriogram was performed which demonstrates adequate arterial access for use of closure device, cephalad to the bifurcation and caudad to the inferior epigastric artery origin. A 5 [place] African Cobra C2 catheter was advanced over the wire and used to cannulate the celiac artery and subsequently the splenic artery. Digital subtraction angiography was performed which reveals focus of active arterial extravasation arising from a branch of the distal splenic artery in the surgical bed correlating with findings seen on same day CTA. A [employer] microcatheter was coaxially loaded and advanced over [...] signed by: FREDDIE HURT MD Normal [facility] GLUCOSE-POCTon 01-22-2020 Glucose [Mass/Vol] 183 mg/dL High 74 - 99 [facility] Comment on above: Performed By: #### R ETIC #### [facility] [address] [place] [address] Glucose [Mass/Vol] 194 mg/dL High 74 - 99 [facility] Comment on above: Performed By: #### R ETIC #### [facility] [address] [place] [address] History and Physical - Yasmine farhana Kaminski 01-22-2020 History and Physical - [...] Objective: Objective Information: Objective Information T PRBPSpO2 Value36.788140584/85537 % Date/Time01/21 8: 13: 13: 13: 13:30 Range(36.1C - 36.6C ) (88 - 136 ) (15 - 45 ) (84 - 144 )/ (51 - 99 ) (94% - 100% ) Pain reported at 01/21 11:50: sleeping ---- Intake and Output ----- Mn/Dy/Year TimeIntakeOutputNet Jan 22, 2020 6:00 [id number] Jan 21, 2020 10:00 [id number] The Intake and Output Totals for the last 24 hours are: IntakeOutputNet [id number] Date: Weight/Scale Type: 22-Jan-2020 09:5474.6 kg 21-Jan-2020 [...] 8.1 HH Complete Blood Count Trending View [id number]-Wzv-0843 07:38:00 22-Jan-2020 04:38:00 22-Jan-2020 01:19:00 White Blood Cell Count16.2 H 17.8 H 23.6 H Nucleated Erythrocyte Count0.0 0.0 0.1 Red Blood Cell Count2.27 L 2.95 L 3.82 L HGB6.8 L 8.6 L 11.2 L HCT19.9 L 25.2 L 32.4 L MCV88 85 85 MCHC34.2 34.1 34.6 END096 L 160 197 RDW-CV18.6 H 18.5 H [...] Lines: 3 PIV Farzad Koenig PGY4/CA3 SICU 65886 Code Status: Code StatusFull Code Signatures/Attestation/ Certification: [...] the note. I personally evaluated the patient [id number] Critical Care PatientI have reviewed and evaluated [...] OnlyCurrent Admission Order. Admit to Inpatient Adult [facility] Admitting Diagnosis, D58.0 Hereditary spherocytosis Transfer to, [facility] Harman TT09 Division Admitting Service, Acute Care Surgery Level of Care, Med/Surg admit to [place] surgery service Lynnette Kaiser Admission Order Certification order has been placed by Eagle Mcmanus Electronic Signatures: Annette Irving) (Signed 22-Jan-2020 15:31) Authored: Signatures/Attestation/ Certification Co-Signer: Service, History of Present Illness, Comorbidities, Allergies, Medications Prior to Admission, Objective, Assessment and Plan, Signatures/Attestation/ Certification Farzad Koenig (Resident)) (Signed 22-Jan-2020 14:02) Authored: Service, History of Present Illness, Comorbidities, Allergies, Medications Prior to Admission, Objective, Assessment and Plan, Signatures/Attestation/ Certification Last Updated: 22-Jan-2020 15:31 by Annette Irving) Normal [facility] LACTATEon 01-22-2020 Lactate [Moles/Vol] 8.1 mmol/L Critically high 0.4 - 2.0 [facility] Comment on above: Order Comment: CRITI FARHANA LACT CALLED TO FARTUN QUINTANA--RB 2ID, 01/22/2020 10:22 Result Comment: Dacia puncture immediately after or during the administration of Metamizole may lead to falsely low results. Testing should be performed immediately prior to Metamizole dosing. CRITICAL LACT CALLED TO FARTUN QUINTANA--RB 2ID, 01/22/2020 10:22 Performed By: #### C BCDF #### [facility] [address] [place] [address] MAGNESIUMon 01-22-2020 Magnesium [Mass/Vol] 1.63 mg/dL Normal 1.60 - 2.40 [facility] Comment on above: Performed By: #### L DH #### [facility] [address] [place] [address] Magnesium [Mass/Vol] 1.60 mg/dL Normal 1.60 - 2.40 [facility] Comment on above: Performed By: #### C BCDF #### [facility] [address] [place] [address] PLASMAon 01-22-2020 PLASMA ORDER RECD Normal [facility] Comment on above: Performed By: #### C BCDF #### [facility] [address] [place] [address] RENAL FUNCTION PANELon 01-21 Albumin [Mass/Vol] 3.5 g/dL Normal 3.4 - 5.0 [facility] Comment on above: Performed By: #### L DH #### [facility] [address] [place] [address] Anion gap [Moles/Vol] 18 mmol/L Normal 10 - 20 [facility] Comment on above: Performed By: #### L DH #### [facility] [address] [place] [address] Calcium [Mass/Vol] 8.2 mg/dL Low 8.6 - 10.6 [facility] Comment on above: Performed By: #### L DH #### [facility] [address] [place] [address] Chloride [Moles/Vol] 102 mmol/L Normal 98 - 107 [facility] [place] Comment on above: Performed By: #### L DH #### [facility] [address] [place] [address] Creatinine [Mass/Vol] 0.95 mg/dL Normal 0.50 - 1.30 [facility] Comment on above: Performed By: #### L DH #### [facility] [address] [place] [address] GFR- AM. >60 Normal >60 [facility] Comment on above: Result Comment: CALC ULATIONS OF ESTIMATED GFR ARE PERFORMED USING THE MDRD STUDY EQUATION FOR THE IDMS-TRACEABLE CREATININE METHODS. CLIN CHEM 2007;53:766-72 Performed By: #### L DH #### [facility] [address] [place] [address] GFR-NON AM. >60 Normal >60 [facility] Comment on above: Performed By: #### L DH #### [facility] [address] [place] [address] Glucose [Mass/Vol] 130 mg/dL High 74 - 99 [facility] Comment on above: Performed By: #### L DH #### [facility] [address] [place] [address] HCO3 (Bld) [Moles/Vol] 23 mmol/L Normal 21 - 32 [facility] Comment on above: Performed By: #### L DH #### [facility] [address] [place] [address] Phosphate [Mass/Vol] 4.7 mg/dL Normal 2.5 - 4.9 [facility] [place] Comment on above: Result Comment: The performance characteristics of phosphorus testing in heparinized plasma have been validated by the individual laboratory site where testing is performed. Testing on heparinized plasma is not approved by the FDA; however, such approval is not necessary. Performed By: #### L DH #### [facility] [address] [place] [address] Potassium [Moles/Vol] 5.1 mmol/L Normal 3.5 - 5.3 [facility] Comment on above: Performed By: #### L DH #### [facility] [address] [place] [address] Sodium [Moles/Vol] 138 mmol/L Normal 136 - 145 [facility] Comment on above: Performed By: #### L DH #### [facility] [address] [place] [address] Urea nitrogen [Mass/Vol] 14 mg/dL Normal 6 - 23 [facility] Comment on above: Performed By: #### L DH #### [facility] [address] [place] [address] REQUEST-LEUKOREDUCED RED JAIDA LSon 01-22-2020 REQUEST-LEUKOREDUCED RED CELLS ORDER RECD Normal [facility] Comment on above: Performed By: #### C BCDF #### [facility] [address] [place] [address] REQUEST-LEUKOREDUCED RED CELLS ORDER RECD Normal [facility] Comment on above: Performed By: #### C BCDF #### [facility] [address] [place] [address] REQUEST-LEUKOREDUCED RED CELLS ORDER RECD Normal [facility] Comment on above: Performed By: #### C BCDF #### [facility] [address] [place] [address] ULTRASOUND GUIDANCE FOR VASC ULAR ACCESSon 01-22-2020 [...] of the abdomen and pelvis ACCESSION NUMBER(S): [id number]; [id number]; [id number]; [id number]; [id number]; [id number]; [id number]; [id number]; [id number]; [id number]; [id number] ORDERING CLINICIAN: FARZAD KOENIG OPERATORS: Dr. Sg [...] The needle was exchanged for a 5 South African transitional catheter. The inner dilator and the 0.018 wire were removed and a 0.035 wire was advanced into the abdominal aorta. The transitional catheter was exchanged for a 5 South African vascular sheath, which was attached to a heparinized pressure bag of normal saline. Right common femoral arteriogram was performed which demonstrates adequate arterial access for use of closure device, cephalad to the bifurcation and caudad to the inferior epigastric artery origin. A 5 [place] African Cobra C2 catheter was advanced over the [...] extravasation. Electronically signed by: FREDDIE HURT MD [facility] VASCULAR EMBO/OCCL, INCLUDE Son 01-22-2020 [...] of the abdomen and pelvis ACCESSION NUMBER(S): [id number]; [id number]; [id number]; [id number]; [id number]; [id number]; [id number]; [id number]; [id number]; [id number]; [id number] ORDERING CLINICIAN: FARZAD KOENIG OPERATORS: Dr. Sg [...] The needle was exchanged for a 5 South African transitional catheter. The inner dilator and the 0.018 wire were removed and a 0.035 wire was advanced into the abdominal aorta. The transitional catheter was exchanged for a 5 South African vascular sheath, which was attached to a heparinized pressure bag of normal saline. Right common femoral arteriogram was performed which demonstrates adequate arterial access for use of closure device, cephalad to the bifurcation and caudad to the inferior epigastric artery origin. A 5 [place] Cobra C2 catheter was advanced over the [...] extravasation. Electronically signed by: FREDDIE HURT MD [facility] VISCERALon 01-22-2020 VISCERAL Patient Name: [...] of the abdomen and pelvis ACCESSION NUMBER(S): [id number]; [id number]; [id number]; [id number]; [id number]; [id number]; [id number]; [id number]; [id number]; [id number]; [id number] ORDERING CLINICIAN: FARZAD KOENIG OPERATORS: Dr. Sg [...] The needle was exchanged for a 5 [place] African transitional catheter. The inner dilator and the 0.018 wire were removed and a 0.035 wire was advanced into the abdominal aorta. The transitional catheter was exchanged for a 5 South African vascular sheath, which was attached to a heparinized pressure bag of normal saline. Right common femoral arteriogram was performed which demonstrates adequate arterial access for use of closure device, cephalad to the bifurcation and caudad to the inferior epigastric artery origin. A 5 [place] Cobra C2 catheter was advanced over the [...] signed by: FREDDIE HURT MD Normal [facility] ABO/RH GROUP TESTon 01-21-20 20 ABO TYPE O Normal [facility] Comment on above: Performed By: #### R ETIC #### [facility] [address] [place] [address] Performed By: #### T +S ####[id number], [place] RH TYPE Positive Normal [facility] Comment on above: Performed By: #### R ETIC #### [facility] [address] [place] [id number] Performed By: #### T +S ####[id number] [place] [address] Admission Risk Screen - Adul ton 01-21-2020 [...] falls risk with risk for associated injury [place] Safety InterventionsWDL *orient to call system *instruct [...] instruction; written material Cultural Considerationsnone Developmental Considerationsnone Evangelical Considerationsnone Learning Assessment (Other Learner): Other learner [...] Spiritual Screen: Are there any cultural, spiritual, lutheran practices/values/needs that are important for us to knowno CAGE: Is this an injured patient at a Trauma Center ([facility]/[place]/[facility]/[place]): no Vaccinations: Vaccination - Influenza Vaccination Screen: Is it flu season (between and September 28)No Vaccination - Pneumonia Vaccination Screen: Patient has received a previous pneumonia vaccine:no/unknown... Immunocompetent persons with underlying chronic conditions or reside in truck terminal manager care facilitiesnone of these conditions Persons with [...] - Preop v2 21-Jan-2020 10:09 Normal [facility] CBCon 01-21-2020 Erythrocyte distribution width (RBC) [Ratio] 18.7 % High 11.5 - 14.5 [facility] Comment on above: Performed By: #### R ETIC #### [facility] [address] [place] [address] Hematocrit (Bld) [Volume fraction] 34.3 % Low 41.0 - 52.0 [facility] Comment on above: Performed By: #### R ETIC #### [facility] [address] [place] [address] Hemoglobin (Bld) [Mass/Vol] 12.6 g/dL Low 13.5 - 17.5 [facility] Comment on above: Performed By: #### R ETIC #### [facility] [address] [place] [address] MCHC (RBC) [Mass/Vol] 36.7 g/dL High 32.0 - 36.0 [facility] Comment on above: Performed By: #### R ETIC #### [facility] [address] [place] [address] MCV (RBC) [Entitic vol] 80 fL Normal 80 - 100 [facility] Comment on above: Performed By: #### R ETIC #### [facility] [address] [facility] [place] [place] [address] Nucleated RBC/100 WBC (Bld) [Ratio] 0.1 /100 WBC Normal 0.0-0.0 [facility] Comment on above: Performed By: #### R ETIC #### [facility] [address] [facility] [address] Platelets (Bld) [#/Vol] 197 10*3/uL Normal 150 - 450 [facility] Comment on above: Performed By: #### R ETIC #### [facility] [address] [place] [address] RBC (Bld) [#/Vol] 4.28 x10E12/L Low 4.50 - 5.90 [facility] Comment on above: Performed By: #### R ETIC #### [facility] [address] [place] [address] WBC (Bld) [#/Vol] 29.9 10*3/uL High 4.4 - 11.3 [facility] Comment on above: Performed By: #### R ETIC #### [facility] [address] [facility] [place] [address] History and Physical - Surgi farhana Update [...] the note. I personally evaluated the patient [id number] Attending Provider Inpatient Certification StatementI certify this [...] Last Updated: 21-Jan-2020 12:47 by Eagle Mcmanus) [facility] Operative Reports - [facility] [place] [address] Patient Name: HODAN ZHENG : 1995 Date of Service: 01/21/2020 Patient Location: [id number] Patient Type: O Surgeon: Eagle Mcmanus MD Report Type: Operative Reports PREOPERATIVE DIAGNOSIS: Hereditary spherocytosis. POSTOPERATIVE DIAGNOSIS: Hereditary spherocytosis. OPERATION/PROCEDURE: Laparoscopic splenectomy. SURGEON: Eagle Mcmanus MD IT APPLICATIONS MANAGER(S): 1. Dr. Leonela Kaiser 2. Annette Kaufman [...] TT: 01/22/2020 03:21 AM EST DICTATION NUMBER: [id number] SPHERIS JOB NUMBER: [id number] CC: ADDIE Cobos MD Electronic Signatures: Eagle Mcmanus) (Signed on 22-Jan-2020 23:07) Authored Unsigned, Draft (SYS GENERATED) (Entered on 22-Jan-2020 03:21) Entered Last Updated: 22-Jan-2020 23:07 by Eagle Mcmanus) [facility] Patient Profile - Preop v2on 01-21-2020 Patient Profile - Preop v2 Profile: Initial Info: How to be AddressedAlex Spoken Language PreferredEnglish Are you currently using the Personal Electronic Health Record or SEDLine Stated Reason for Admissionsplenectomy Primary Contact Name and NumberCindy daly [phone] Patient Belongingslocker Medications Brought to Hospitalno General Health: Weight in kg74.6 kilogram(s) Weight in vxr237.4 pound(s) Weight Methodactual (measured) Scale Typestanding Height in feet5 feet Height in rmpdiv52 inch(es) Height in cm177.8 centimeter(s) Height Methodstated [...] instruction; written material Cultural Considerationsnone Developmental Considerationsnone Evangelical Considerationsnone Other learner availableno Falls RiskPatient location auto qualifies him/her for HIGH RISK. Are there any cultural, spiritual, lutheran practices/values/needs that are important for us to [...] Last Updated: 21-Jan-2020 10:24 by Claudia Tapia) [facility] Preop Checkliston 01-21-2020 Preop Checklist Preop Checklist: Preop Checklist: Arrival [id number] Arrival Time10:05 Procedure Typesplenectomy Temperature C37.6 degrees C Temperature F99.6 degrees F Heart Rate67 beats per minute Respiratory Rate16 breath per minute Blood Pressure Xwxzjgwa367 mm/Hg Blood Pressure Zdjnvkipx13 mm/Hg NPO [id number]-9585 00:01 ID Band Onyes Allergy Bandyes Consent [...] Last Updated: 21-Jan-2020 10:28 by Claudia Tapia (CALOS) Normal [facility] Surgical Pathology Depar tmenton 01-21-2020 [facility] Surgical Pathology Department Name CHRISTIANO ZHENG Pathologist: ARTURO NORRIS MD Date of Procedure: 01/21/2020 Date Received: 01/21/2020 Date Reported 01/27/2020 Submitting Physician: EAGLE MCMANUS M.D. Location: [facility] External # FINAL DIAGNOSIS A. SPLEEN, SPLENECTOMY: [...] and soft. Malpighian corpuscles are not prominent. Bat Carrier sections are submitted in RPMI for flow hold. Bat Carrier sections are submitted in 3 cassettes. IAD iad01/22/2020 Normal [facility] Comment on above: Performed By: #### U HCS ####[facility] Surgical Pathology [id number] [facility] [address] CORONAVIRUS 2018, SCREEN ASY MPTOMATICon 01-20-2020 CORONAVIRUS 2019,PCR NOT DETECTED Normal Not Detected [facility] Comment on above: Result Comment: . This [...] this test method. Fact sheet for providers: https://www.fda.gov/media/504567/download Fact sheet for patients: https://www.fda.gov/media/413660/download This test has received FDA Emergency Use Authorization [EUA] and has been verified by [facility] ([facility]). This test is only authorized for the duration of time that circumstances exist to justify the authorization of the emergency use of in vitro diagnostic tests for the detection of SARS-CoV-2 virus and/or diagnosis of COVID-19 infection under section 564(b)(1) of the Act, 21 U.S.C. 360bbb-3(b)(1), unless the authorization is terminated or revoked sooner. [facility] is certified under CLIA-88 as qualified to perform high complexity testing. Testing is performed in the [facility] laboratories [place] [address] [place] [address]. Performed By: #### C OVSC ####[id number] [place] [address] CORONAVIRUS 2019, SCREEN ASY MPTOMATICon 01-19-2020 Lab Specimen Source Nasal, Nasopharyngeal Normal [facility] Comment on above: Performed By: #### C OVSC ####[id number] [place] [address] EOSIN 5' MALEIMIDEon 020 Eosinophils (Bld) [#/Vol] Positive Normal [facility] Comment on above: Performed By: #### E O5MA ####[id number] [place] [address] PATIENT MEAN FLUORESCENCE 129 MFI Low 155 - 175 [facility] Comment on above: Performed By: #### E O5MA ####[id number] [id number] REVIEWED BY VINNIE Normal [facility] Comment on above: Result Comment: Eval uation [...] characteristics determined by the Department of Pathology, [facility], and has not been cleared or approved by the U.S. Food and Drug Administration. The laboratory is regulated under CLIA as qualified to perform high complexity testing. This test is used for clinical purposes. It shouldn't be regarded as investigational or for research. Performed By: #### E O5MA ####[id number] [facility] [place] [address] BILIRUBIN,DIRECTon 0 Bilirubin.direct [Mass/Vol] 0.5 mg/dL High 0.0 - 0.3 [facility] Comment on above: Performed By: #### D BILI #### [facility] [address] [facility] [place] [address] CBC AND DIFFERENTIALon 12-30 % AUTOMATED IMMATURE GRAN 0.8 % Normal 0.0 - 0.9 [facility] Comment on above: Result Comment: Sisi ture Granulocyte Count (IG) includes promyelocytes, myelocytes and metamyelocytes but does not include bands. Percent differential counts (%) should be interpreted in the context of the absolute cell counts (cells/L). Performed By: #### C BCDF #### [facility] [address] [place] [address] Basophils (Bld) [#/Vol] 0.05 10*3/uL Normal 0.00 - 0.10 [facility] Comment on above: Performed By: #### C BCDF #### [facility] [address] [place] [address] Basophils/100 WBC (Bld) 0.6 % Normal 0.0 - 2.0 [facility] Comment on above: Performed By: #### C BCDF #### [facility] [address] [place] [address] Eosinophils (Bld) [#/Vol] 0.13 10*3/uL Normal 0.00 - 0.70 [facility] Comment on above: Performed By: #### C BCDF #### [facility] [address] [place] [address] Eosinophils/100 WBC (Bld) 1.6 % Normal 0.0 - 6.0 [facility] Comment on above: Performed By: #### C BCDF #### [facility] [address] [place] [address] Erythrocyte distribution width (RBC) [Ratio] 19.1 % High 11.5 - 14.5 [facility] Comment on above: Performed By: #### C BCDF #### [facility] [address] [place] [address] Hematocrit (Bld) [Volume fraction] 35.9 % Low 41.0 - 52.0 [facility] Comment on above: Performed By: #### C BCDF #### [facility] [address] [place] [address] Hemoglobin (Bld) [Mass/Vol] 12.6 g/dL Low 13.5 - 17.5 [facility] Comment on above: Performed By: #### C BCDF #### [facility] [address] [place] [address] Lymphocytes (Bld) [#/Vol] 3.17 10*3/uL Normal 1.20 - 4.80 [facility] Comment on above: Performed By: #### C BCDF #### [facility] [address] [place] [address] Lymphocytes/100 WBC (Bld) 40.1 % Normal 13.0 - 44.0 [facility] Comment on above: Performed By: #### C BCDF #### [facility] [address] [place] [address] MCHC (RBC) [Mass/Vol] 35.1 g/dL Normal 32.0 - 36.0 [facility] Comment on above: Performed By: #### C BCDF #### [facility] [address] [place] [address] MCV (RBC) [Entitic vol] 82 fL Normal 80 - 100 [facility] Comment on above: Performed By: #### C BCDF #### [facility] [address] [place] [address] Monocytes (Bld) [#/Vol] 0.39 10*3/uL Normal 0.10 - 1.00 [facility] Comment on above: Performed By: #### C BCDF #### [facility] [address] [place] [address] Monocytes/100 WBC (Bld) 4.9 % Normal 2.0 - 10.0 [facility] Comment on above: Performed By: #### C BCDF #### [facility] [address] [place] [address] Neutrophils (Bld) [#/Vol] 4.10 10*3/uL Normal 1.20 - 7.70 [facility] Comment on above: Performed By: #### C BCDF #### [facility] [address] [place] [address] Neutrophils/100 WBC (Bld) 52.0 % Normal 40.0 - 80.0 [facility] Comment on above: Performed By: #### C BCDF #### [facility] [address] [place] [address] Nucleated RBC/100 WBC (Bld) [Ratio] 0.3 /100 WBC Normal 0.0-0.0 [facility] Comment on above: Performed By: #### C BCDF #### [facility] [address] [place] [address] Platelets (Bld) [#/Vol] 166 10*3/uL Normal 150 - 450 [facility] Comment on above: Performed By: #### C BCDF #### [facility] [address] [place] [address] RBC (Bld) [#/Vol] 4.37 x10E12/L Low 4.50 - 5.90 [facility] Comment on above: Performed By: #### C BCDF #### [facility] [address] [place] [address] WBC (Bld) [#/Vol] 7.9 10*3/uL Normal 4.4 - 11.3 [facility] Comment on above: Performed By: #### C BCDF #### [facility] [address] [place] [address] COMPREHENSIVE PANELon 2019 Albumin [Mass/Vol] 5.5 g/dL High 3.4 - 5.0 [facility] Comment on above: Performed By: #### C MP #### [facility] [address] [place] [address] ALP [Catalytic activity/Vol] 50 U/L Normal 33 - 120 [facility] Comment on above: Performed By: #### C MP #### [facility] [address] [facility] [place] [place] [address] ALT [Catalytic activity/Vol] 19 U/L Normal 10 - 52 [facility] Comment on above: Result Comment: Haily ents treated with Sulfasalazine may generate falsely decreased results for ALT. Performed By: #### C MP #### [facility] [address] [place] [address] Anion gap [Moles/Vol] 11 mmol/L Normal 10 - 20 [facility] Comment on above: Performed By: #### C MP #### [facility] [address] [facility] [place] [address] AST [Catalytic activity/Vol] 17 U/L Normal 9 - 39 [facility] Comment on above: Performed By: #### C MP #### [facility] [address] [place] [address] Bilirubin [Mass/Vol] 2.5 mg/dL High 0.0 - 1.2 [facility] [place] Comment on above: Performed By: #### C MP #### [facility] [address] [place] [address] Calcium [Mass/Vol] 10.2 mg/dL Normal 8.6 - 10.3 [facility] Comment on above: Performed By: #### C MP #### [facility] [address] [place] [address] Chloride [Moles/Vol] 105 mmol/L Normal 98 - 107 [facility] [place] Comment on above: Performed By: #### C MP #### [facility] [address] [place] [address] Creatinine [Mass/Vol] 0.99 mg/dL Normal 0.50 - 1.30 [facility] Comment on above: Performed By: #### C MP #### [facility] [address] [place] [address] GFR- AM. >60 Normal >60 [facility] Comment on above: Result Comment: CALC ULATIONS OF ESTIMATED GFR ARE PERFORMED USING THE MDRD STUDY EQUATION FOR THE IDMS-TRACEABLE CREATININE METHODS. CLIN CHEM 2007;53:766-72 Performed By: #### C MP #### [facility] [address] [facility] [place] [address] GFR-NON AM. >60 Normal >60 [facility] Comment on above: Performed By: #### C MP #### [facility] [address] [facility] [place] [address] Glucose [Mass/Vol] 97 mg/dL Normal 74 - 99 [facility] Comment on above: Performed By: #### C MP #### [facility] [address] [facility] [place] [address] HCO3 (Bld) [Moles/Vol] 29 mmol/L Normal 21 - 32 [facility] Comment on above: Performed By: #### C MP #### [facility] [address] [place] [address] Potassium [Moles/Vol] 4.2 mmol/L Normal 3.5 - 5.3 [facility] Comment on above: Performed By: #### C MP #### [facility] [address] [place] [address] Protein [Mass/Vol] 7.4 g/dL Normal 6.4 - 8.2 [facility] Comment on above: Performed By: #### C MP #### [facility] [address] [facility] [place] [address] Sodium [Moles/Vol] 141 mmol/L Normal 136 - 145 [facility] Comment on above: Performed By: #### C MP #### [facility] [address] [place] [address] Urea nitrogen [Mass/Vol] 11 mg/dL Normal 6 - 23 [facility] Comment on above: Performed By: #### C MP #### [facility] [address] [place] [address] Clinic Note - Heme Onc-Benig n Heme [...] Differential [Drawn 31-Dec-2019::00], Lactate Dehydrogenase, Serum [Drawn 31-Dec-2019 11:21:00], Ferritin, Serum [Drawn 31-Dec-2019 11:21:00], Uric Acid, Serum [Drawn 31-Dec-2019:21:00], Sedimentation Rate, Erythrocyte [Drawn 31-Dec-2019:21:00], Bilirubin, Serum Direct - Conjugated [Drawn 31-Dec-2019 11:21:00], Haptoglobin, Serum [Drawn 31-Dec-2019:21:00]. Assessment and Plan: Assessment and Plan: Assessment: This patient has a normochromic, normocytic mild anemia with 8.7% retic, elevated total and indirect (2.0) bilirubin, low haptoglobin (<30) with a normal LDH. His spleen is palpable. Could be HS - I sent for definitive flow cytometry studies today. At [facility], an abnormal band 3 for HS [...] Last Updated: 31-Dec-2019 16:52 by [place]) [facility] Clinic Note - Intakeon 12-30 Clinic Note [...] air Pain Screening: Patient States Painno (0) Inverform Machine Operator for intimate exam offered to patient: Patient [...] 10:17) Authored: Patient Visit Information, Vital Signs, Inverform Machine Operator, Allergies, Outpatient Medication Profile, Adult Admission Risk Screen Last Updated: 31-Dec-2019 10:17 by Stefania Stout) Normal [facility] EBV PANELon 12-31-2019 EBV EA-D IGG ANTIBODY Positive Abnormal NEGATIVE [facility] Comment on above: Performed By: #### E BVP1 ####[id number] [place] [address] EBV INTERPRETATION SEE BELOW Normal [facility] Comment on above: Result Comment: . EB V INTERPRETATION CHART . VCA-IGG VCA-IGM NA-IGG EA-IGG . PRIMARY ACUTE +/- +/- - +/- LATE ACUTE + +/- +/- +/- RECOVERING + - - + PREVIOUS INFECTION + - +/- - Performed By: #### E BVP1 ####[id number] [place] [address] EBV NA-1 IGG ANTIBODY Negative Normal NEGATIVE [facility] Comment on above: Performed By: #### E BVP1 ####[id number] [id number] VCA IGG ANTIBODY Positive Abnormal NEGATIVE [facility] Comment on above: Performed By: #### E BVP1 ####[id number] [id number] VCA IGM ANTIBODY Positive Abnormal NEGATIVE [facility] Comment on above: Performed By: #### E BVP1 ####[id number] [id number] EOSIN 5' MALEIMIDEon 020 INTERPRETATION SEE BELOW Normal [facility] Comment on above: Performed By: #### E O5MA ####[id number] [id number] FERRITINon 12-31-2019 Ferritin [Mass/Vol] 344 ug/L High 20 - 300 [facility] Comment on above: Performed By: #### F ERRI ####[id number], [place] FLOW CYTOMETRY TESTon 2019 FLOW TEST ORDERED EOSIN 5' MALEIMIDE Normal [facility] Comment on above: Performed By: #### F CTST ####[id number], [place] SOURCE WHOLE BLD-EDTA Normal [facility] Comment on above: Performed By: #### F CTST ####[id number], [place] HAPTOGLOBINon 12-31-2019 HAPTOGLOBIN <30 Normal 30 - 200 [facility] Comment on above: Performed By: #### H APTO #### [facility] [address] [place], [place] LDHon 12-31-2019 LDH 165 U/L Normal 84 - 246 [facility] Comment on above: Performed By: #### L DH #### [facility] [address] [place], [place] RETICULOCYTESon 12-31-2019 IMMATURE RETIC FRACTION 10.8 % Normal 0.0 - 16.0 [facility] Comment on above: Performed By: #### R ETIC #### [facility] [address] [place], [place] RETIC # 0.379 x10E12/L High 0.022 - 0.118 [facility] Comment on above: Performed By: #### R ETIC #### [facility] [address] [place], [place] RETIC % 8.7 % High 0.5 - 2.0 [facility] Comment on above: Performed By: #### R ETIC #### [facility] [address] [place], [place] RETIC-HB 35 pg Normal 28 - 38 [facility] Comment on above: Performed By: #### R ETIC #### [facility] [address] [place] [address] SEDIMENTATION RATE, ERYTHROC YTEon 12-31-2019 SEDIMENTATION RATE, ERYTHROCYTE <1 Normal 0 - 15 [facility] Comment on above: Performed By: #### E SRWS #### [facility] [address] [place] [address] URIC ACIDon 12-31-2019 Urate [Mass/Vol] 5.8 mg/dL Normal 4.0 - 7.5 [facility] Comment on above: Result Comment: Dacia puncture immediately after or during the administration of Metamizole may lead to falsely low results. Testing should be performed immediately prior to Metamizole dosing. Performed By: #### U MELISA #### [facility] [address] [facility] [place] [address] Oncology Nurse Navigator-ini tial diagnosison 12-30-2019 Oncology [...] by Heidi Velasco (STAFF N) Normal [facility] Vital Signs Date Time Vital Sign Value Performing Clinician Facility 02-11-2024 09:13-0400 Body height 177.8 cm [facility] 02-11-2024 09:130400 Body mass index (BMI) [Ratio] 25.9 kg/m2 [facility] 02-11-2024 09:13-0400 Body temperature 97.9 [degF] [facility] 02-11-2024 09:13-0400 Body weight 82.1 kg [facility] 02-11-2024 09:13-0400 Diastolic blood pressure 80 mm[Hg] [facility] 02-11-2024 09:13-0400 Heart rate 66 /min [facility] 02-11-2024 09:13-0400 Respiratory rate 18 /min [facility] 02-11-2024 09:13-0400 SaO2% (BldA) [Mass fraction] 98 % [facility] 02-11-2024 09:13-0400 Systolic blood pressure 125 mm[Hg] [facility] 12-11-2023 14:51-0400 Body height 177.8 cm [facility] 12-11-2023 14:51-0400 Body mass index (BMI) [Ratio] 26.1 kg/m2 [facility] 12-11-2023 14:51-0400 Body temperature 98.7 [degF] [facility] 12-11-2023 14:51-0400 Body weight 82.66 kg [facility] 12-11-2023 14:51-0400 Diastolic blood pressure 93 mm[Hg] [facility] 12-11-2023 14:51-0400 Heart rate 91 /min [facility] 12-11-2023 14:51-0400 Respiratory rate 18 /min [facility] 12-11-2023 14:51-0400 SaO2% (BldA) [Mass fraction] 97 % [facility] 12-11-2023 14:51-0400 Systolic blood pressure 146 mm[Hg] [facility] 05-04-2023 12:15-0500 Body height 177.8 cm Zoila Webb Other [facility] Other 05-04-2023 12:15-0500 Body mass index (BMI) [Ratio] 23.53 kg/m2 Zoila Webb Other [facility] 05-04-2023 12:15-0500 Body temperature 98.9 [degF] Zoila Webb Other [facility] 05-04-2023 12:15-0500 Body weight 74.39 kg Zoila Webb Other [facility] 05-04-2023 12:15-0500 Diastolic blood pressure 76 mm[Hg] Zoila Webb Other [facility] 05-04-2023 12:15-0500 Respiratory rate 18 /min Zoila Webb Other [facility] Other 05-04-2023 12:15-0500 SaO2% (BldA) [Mass fraction] 80 % Zoila Webb Other [facility] Other 05-04-2023 12:15-0500 Systolic blood pressure 127 mm[Hg] Zoila Webb Other [facility] Other 03-28-2023 10:43-0400 Blood Pressure Location MABLE STEPHENSON [facility] 03-28-2023 10:43-0400 Body temperature 98.6 [degF] MABLE STEPHENSON [facility] 03-28-2023 10:43-0400 Diastolic blood pressure 78 mm[Hg] MABLE STEPHENSON [facility] 03-28-2023 10:43-0400 Heart rate 77 /min MABLE STEPHENSON [facility] 03-28-2023 10:43-0400 SaO2% (BldA) [Mass fraction] 98 % MABLE STEPHENSON [facility] 03-28-2023 10:43-0400 Systolic blood pressure 121 mm[Hg] MABLE STEPHENSON [facility] 07-04-2022 15:31-0500 Diastolic blood pressure 79 mm[Hg] Leah Myrick [facility] 07-04-2022 15:31-0500 Heart rate 95 /min Leah Myrick [facility] 07-04-2022 15:31-0500 Mean blood pressure 96 mm[Hg] Leah Myrick [facility] 07-04-2022 15:31-0500 Systolic blood pressure 130 mm[Hg] Leah Myrick [facility] 06-13-2022 14:57-0500 Heart rate 74 /min Sen Jenifer [facility] 06-13-2022 14:57-0500 SaO2% (BldA) [Mass fraction] 99 % Sen Jenifer [facility] 06-13-2022 14:57-0500 Diastolic blood pressure 79 mm[Hg] Sen Jenifer [facility] 06-13-2022 14:57-0500 Mean blood pressure 93 mm[Hg] Sen Jenifer [facility] 06-13-2022 14:57-0500 Systolic blood pressure 122 mm[Hg] Sen Jenifer [facility] 06-13-2022 14:57-0500 Respiratory rate 14 /min Sen Jenifer [facility] 06-13-2022 14:50-0500 Diastolic blood pressure 88 mm[Hg] Sen Jenifer [facility] 06-13-2022 14:50-0500 Heart rate 71 /min Sen Jenifer [facility] 06-13-2022 14:50-0500 Respiratory rate 14 /min Sen Jenifer [facility] 06-13-2022 14:50-0500 SaO2% (BldA) [Mass fraction] 98 % Sen Jenifer [facility] 06-13-2022 14:50-0500 Systolic blood pressure 147 mm[Hg] Sen Jenifer [facility] 06-13-2022 14:35-0500 Heart rate 81 /min Sen Jenifer [facility] 06-13-2022 14:35-0500 SaO2% (BldA) [Mass fraction] 98 % Sen Jenifer [facility] 06-13-2022 14:35-0500 Respiratory rate 16 /min Sen Jenifer [facility] 06-13-2022 14:33-0500 Diastolic blood pressure 79 mm[Hg] Sen Jenifer [facility] 06-13-2022 14:33-0500 Mean blood pressure 94 mm[Hg] Sen Jenifer [facility] 06-13-2022 14:33-0500 Systolic blood pressure 123 mm[Hg] Sen Jenifer [facility] 06-13-2022 14:33-0500 Body temperature 97.7 [degF] Sen Jenifer [facility] 05-23-2022 14:51-0500 Diastolic blood pressure 78 mm[Hg] Sen Jenifer [facility] 05-23-2022 14:51-0500 Heart rate 96 /min Sen Jenifer [facility] 05-23-2022 14:51-0500 Mean blood pressure 96 mm[Hg] Sen Jenifer [facility] 05-23-2022 14:51-0500 Respiratory rate 16 /min Sen Jenifer [facility] 05-23-2022 14:51-0500 Systolic blood pressure 131 mm[Hg] Sen Jenifer [facility] 05-19-2022 10:04-0500 Diastolic blood pressure 81 mm[Hg] Karan العراقي [facility] 05-19-2022 10:04-0500 Heart rate 91 /min Karan العراقي [facility] 05-19-2022 10:04-0500 Respiratory rate 18 /min Karan العراقي [facility] 05-19-2022 10:04-0500 SaO2% (BldA) [Mass fraction] 97 % Karan العراقي [facility] 05-19-2022 10:04-0500 Systolic blood pressure 132 mm[Hg] Karan العراقي [facility] 05-14-2022 22:45-0500 Diastolic blood pressure 78 mm[Hg] Jose Brandon [facility] 05-14-2022 22:45-0500 Heart rate 79 /min Jose Brandon [facility] 05-14-2022 22:45-0500 Respiratory rate 18 /min Jose Brandon [facility] 05-14-2022 22:45-0500 SaO2% (BldA) [Mass fraction] 98 % Jose Brandon [facility] 05-14-2022 22:45-0500 Systolic blood pressure 126 mm[Hg] Jose Brandon [facility] 05-14-2022 19:34-0500 Body temperature 99.14 [degF] Jose Brandon [facility] 05-14-2022 19:34-0500 Diastolic blood pressure 84 mm[Hg] Jose Brandon [facility] 05-14-2022 19:34-0500 Heart rate 84 /min Jose Brandon [facility] 05-14-2022 19:34-0500 Respiratory rate 18 /min Jose Brandon [facility] 05-14-2022 19:34-0500 SaO2% (BldA) [Mass fraction] 97 % Jose Brandon [facility] 05-14-2022 19:34-0500 Systolic blood pressure 130 mm[Hg] Jose Brandno [facility] 05-12-2022 11:41-0500 Blood Pressure Location Angela Cogar [facility] 05-12-2022 11:41-0500 Body temperature 98.24 [degF] Angela Cogar [facility] 05-12-2022 11:41-0500 Diastolic blood pressure 74 mm[Hg] Angela Cogar [facility] 05-12-2022 11:41-0500 Heart rate 99 /min Angela Cogar [facility] 05-12-2022 11:41-0500 SaO2% (BldA) [Mass fraction] 97 % Angela Cogar [facility] 05-12-2022 11:41-0500 Systolic blood pressure 110 mm[Hg] Angela Barksdale [facility] 05-08-2022 14:16-0500 Diastolic blood pressure 77 mm[Hg] Sen Jenifer [facility] 05-08-2022 14:16-0500 Heart rate 75 /min Sen Jenifer [facility] 05-08-2022 14:16-0500 Mean blood pressure 93 mm[Hg] Sen Jenifer [facility] 05-08-2022 14:16-0500 Respiratory rate 12 /min Sen Jenifer [facility] 05-08-2022 14:16-0500 Systolic blood pressure 126 mm[Hg] Sen Jenifer [facility] 03-28-2022 14:12-0400 Blood Pressure Location Lelia Klonk [facility] 03-28-2022 14:12-0400 Body temperature 98.06 [degF] Lelia Klonk [facility] 03-28-2022 14:12-0400 Diastolic blood pressure 72 mm[Hg] Lelia Klonk [facility] 03-28-2022 14:12-0400 Heart rate 73 /min Lelia Klonk [facility] 03-28-2022 14:12-0400 SaO2% (BldA) [Mass fraction] 97 % Lelia Klonk [facility] 03-28-2022 14:12-0400 Systolic blood pressure 124 mm[Hg] Lelia Klonk [facility] 02-03-2022 10:53-0400 Blood Pressure Location Lelia Klonk [facility] 02-03-2022 10:53-0400 Diastolic blood pressure 78 mm[Hg] Lelia Klonk [facility] 02-03-2022 10:53-0400 Heart rate 86 /min Lelia Klonk [facility] 02-03-2022 10:53-0400 SaO2% (BldA) [Mass fraction] 98 % Lelia Klonk [facility] 02-03-2022 10:53-0400 Systolic blood pressure 120 mm[Hg] Lelia Klonk [facility] 12-23-2021 16:44-0400 Body temperature 97.34 [degF] Lelia Klonk [facility] 12-23-2021 16:44-0400 Diastolic blood pressure 70 mm[Hg] Lelia Klonk [facility] 12-23-2021 16:44-0400 Heart rate 80 /min Lelia Klonk [facility] 12-23-2021 16:44-0400 SaO2% (BldA) [Mass fraction] 96 % Lelia Klonk [facility] 12-23-2021 16:44-0400 Systolic blood pressure 110 mm[Hg] Lelia Franklin [facility] 11-04-2021 10:11-0400 Body temperature 97.7 [degF] Cecil Novak [facility] 11-04-2021 10:11-0400 Diastolic blood pressure 88 mm[Hg] Cecil Novak [facility] 11-04-2021 10:11-0400 Heart rate 64 /min Cecil Novak [facility] 11-04-2021 10:11-0400 Respiratory rate 16 /min Cecil Novak [facility] 11-04-2021 10:11-0400 SaO2% (BldA) [Mass fraction] 98 % Cecil Novak [facility] 11-04-2021 10:11-0400 Systolic blood pressure 150 mm[Hg] Cecil Novak [facility] 01-22-2020 14:51-0400 Body temperature 37.0 degrees C [facility] Comment on above: Result Comment: NOTE: PATIENT RESULTS AR E NOT CORRECTED FOR TEMPERATURE. Performed By: #### L #### [facility] [address] [place] [address] Encounters Encounter Date Encounter Type Care Provider Facility Start: 02-11-2024 End: 02-11-2024 ambulatory [facility] Work Phone: Start: 02-11-2024 End: 02-11-2024 Patient encounter procedure [facility] Work Phone: Start: 12-11-2023 End: 12-11-2023 ambulatory [facility] Work Phone: Start: 12-11-2023 End: 12-11-2023 Patient encounter procedure [facility] Work Phone: Start: 07-19-2023 End: 07-20-2023 Transcribe Orders Rosario Trevizo Work Phone: [facility] Comment on above: Arthritis Start: 07-16-2023 End: 07-17-2023 Transcribe Orders Rosario Trevizo Work Phone: [facility] Comment on above: Dyspnea, unspecified type Start: 05-04-2023 End: 05-04-2023 ambulatory Zoila Webb Other [employer] Other Start: 05-04-2023 Office outpatient ne w 30 minutes Zoila Webb [facility] Start: 03-28-2023 End: 03-29-2023 ambulatory [facility] Facility:[facility] Start: 03-28-2023 End: 03-29-2023 [facility]ulatory [facility] Facility: [place] Start: 03-28-2023 End: 03-28-2023 [facility] Start: 08-04-2022 End: 08-05-2022 ambulatory PA-C Leah Myrick Facility:[facility] Start: 07-28-2022 End: 07-29-2022 ambulatory Leah Myrick Facility:[facility] Start: 07-04-2022 End: 07-05-2022 ambulatory PA-C Leah Myrick Facility:[facility] Start: 07-04-2022 End: 07-04-2022 Pain Management Leah Myrick [facility] Start: 06-13-2022 End: 06-14-2022 ambulatory MD Sen Burgess Facility:[facility] Start: 06-13-2022 End: 06-13-2022 Pain Management Sen Burgess [facility] Start: 06-06-2022 End: 06-06-2022 Emergency department patient visit Leah Grover Facility:[facility] Start: 05-23-2022 End: 05-24-2022 ambulatory LELIA FRANKLIN Facility:[facility] Start: 05-23-2022 ambulatory LELIA Spencer MIRNAFREDI Facility :[facility] Start: 05-23-2022 End: 05-23-2022 Pain Management Sen Burgess [facility] Start: 05-19-2022 End: 05-20-2022 ambulatory Sen Burgess Facility:[facility] Start: 05-19-2022 End: 05-19-2022 Patient encounter procedure Sen Burgess [facility] Start: 05-19-2022 End: 05-19-2022 Emergency department patient visit Karan العراقي Facility:[facility] Start: 05-19-2022 End: 05-19-2022 Emergency department patient visit Karan العراقي [facility] Start: 05-14-2022 End: 05-15-2022 Emergency department patient visit Jose Taylor Facility:[facility] Start: 05-14-2022 End: 05-14-2022 Emergency department patient visit Jose Taylor [facility] Start: 05-12-2022 End: 05-13-2022 ambulatory Angela Barksdale Facility:[facility] Start: 05-12-2022 End: 05-12-2022 Patient encounter procedure Angela Barksdale [facility] Start: 05-08-2022 End: 05-09-2022 ambulatory LELIA FRANKLIN Facility:[facility] Start: 05-08-2022 End: 05-08-2022 Pain Management Sen Burgess [facility] Start: 03-28-2022 End: 03-28-2022 Patient encounter procedure Lelia Franklin [facility] Start: 03-07-2022 End: 03-07-2022 Patient encounter procedure Yael Wharton [facility] Start: 02-03-2022 End: 02-03-2022 Patient encounter procedure Lelia Franklin [facility] Start: 12-23-2021 End: 12-23-2021 Patient encounter procedure Lelia Franklin [facility] Start: 11-04-2021 End: 11-04-2021 Emergency department patient visit Cecil Novak [facility] Procedures Date Procedure Procedure Detail Performing Clinician [...] on above: Performed By: #### T +S ####[id number] [facility] [place] [id number] Cholecystectomy 1 Cecil sanford Comment on above: 2010 2010 Cholecystectomy 2 Leah Jerad hsieh Comment on above: 2009 Hernia repair Cecil Novak Splenectomy Yael Edmondd Plan of Treatment Date Care Activity Detail Author Start: 2044 Shingles (RZV) Vacci ne (1 of 2) Shingles (RZV) Vaccine (1 of 2) [facility] Start: 05-29-2023 Tetanus vaccination Tetanus (T d or Tdap) Booster [facility] Start: 02-16-2023 Influenza vaccination Influenza Vacc ine (#1) [facility] Start: 2021 HPV Vaccine (optiona l start -45 years) HPV Vaccine (optional start -45 years) [facility] Start: 07-24-2014 Hepatitis A (HAV) [...] [facility] Start: 2009 HIV screening HIV Test [facility] Start: 03-09-1995 COVID-19 Vaccine (#1) COVID-19 Vacci ne (#1) [facility] Start: 1994 Hepatitis B vaccination Hepati tis B (HBV) Vaccine (1 of 3 - 3-dose series) [facility] Immunizations Immunization Date Immunization Notes Care Provider [facility] 04-09-2023 influenza, injectabl e, quadrivalent, preservative free Phe 4 [facility] 11-04-2021 tetanus toxoid, redu carly diphtheria toxoid, and acellular pertussis vaccine, adsorbed; Translations: [Boostrix (Tdap)] Cecil Novak [facility] 05-28-2018 influenza, injectabl e, quadrivalent, contains preservative Phe 4 [facility] 05-28-2018 influenza virus vaccine, unspecified formulation Phe 4 [facility] 05-01-2018 influenza, injectabl e, quadrivalent, contains preservative [address] 03-12-2017 Influenza, injectabl e, Madin Gabbie Canine Kidney, quadrivalent with preservative [address] 10-09-2016 anthrax vaccine [address] 10-05-2016 typhoid vaccine, parenteral, other than acetone-killed, dried [address] 10-05-2016 vaccinia (smallpox) vaccine [address] 09-08-2016 anthrax vaccine [address] 09-08-2016 bolivian encephaliti s vaccine for intramuscular administration [address] 08-11-2016 bolivian encephaliti s vaccine for intramuscular administration [address] 04-18-2016 influenza, injectabl e, quadrivalent, contains preservative [address] 05-19-2015 influenza, seasonal, injectable, preservative free [address] 04-13-2014 influenza, seasonal, injectable [address] 01-21-2014 hepatitis A and hepatitis B vaccine [address] 07-04-2013 hepatitis A and hepatitis B vaccine [address] 07-04-2013 poliovirus vaccine, inactivated Phe [address] [place] [address] 07-04-2013 yellow fever vaccine [address] 05-29-2013 adenovirus, type 4 a nd type 7, live, oral [address] 05-29-2013 hepatitis A and hepatitis B vaccine [address] 05-29-2013 influenza virus vaccine, live, attenuated, for intranasal use [address] 05-29-2013 meningococcal polysaccharide (groups A, C, Y and W-135) diphtheria toxoid conjugate vaccine (MCV4P) [address] 05-29-2013 tetanus toxoid, redu carly diphtheria toxoid, and acellular pertussis vaccine, adsorbed [address] 05-29-2013 tuberculin skin test ; purified protein derivative solution, intradermal [address] 02-06-2006 Hep A, unspecified formulation MABLE STEPHENSON [facility] 02-06-2006 tetanus toxoid, redu carly diphtheria toxoid, and acellular pertussis vaccine, adsorbed MABLE STEPHENSON [facility] 06-28-2005 influenza virus vaccine, unspecified formulation MABLE STEPHENSON [facility] Payers Date Payer Category Payer Unknown [id number] 1994 Unknown [id number] [id number] 1994 Unknown [id number] [id number] 1994 Unknown [id number] 2.16.840.1.362778.3.579.2.72 1994 Unknown [id number] 2.16.840.1.820346.3.579.2.727 1994 Unknown [id number] 2.16.840.1.110251.3.579.2.72 1994 Unknown [id number] 2.16.840.1.842152.3.579.2.727 1994 Unknown [id number] 2.16.840.1.351742.3.579.2.72 1994 Unknown [id number] 2.16.840.1.409092.3.579.2.727 1994 Unknown [id number] 2.16.840.1.632581.3.579.2.727 1994 Unknown [id number] 2.16.840.1.958877.3.579.2.727 1994 Unknown [id number] 2.16.840.1.972083.3.579.2.727 1994 Unknown [id number] 2.16.840.1.274885.3.579.2.727 1994 Unknown [id number] 2.16.840.1.281764.3.579.2.727 1994 Unknown [id number] 2.16.840.1.955138.3.579.2.727 Private Health Insurance [facility] [id number] Unknown VACCN [id number] Social History Date Type Detail Facility Tobacco [facility] Comment on above: pt denies Sex Assigned At Male [facility] Start: 12-23-2021 End: 02-11-2024 Tobacco smoking status Never smoked tobacco (finding) [facility] Comment on above: pt denies pt denies Tobacco smoking status Never [facility] Comment on above: pt denies pt denies Tobacco smoking status NHIS Tobacco smoking consumption unknown [facility] Start: 1994 Sex Assigned At Not on file [facility] Start: [facility] Sex Assigned At Male [facility] Functional Status Date Assessment Result Facility 03-28-2023 Functional Status N/A [facility] 07-04-2022 Functional Status N/A [facility] 06-13-2022 Functional Status N/A [facility] 05-23-2022 Functional Status N/A [facility] 05-19-2022 Functional Status Yes [facility] 05-14-2022 Functional Status Yes [facility] 05-12-2022 Functional Status N/A [facility] 05-08-2022 Functional Status N/A [facility] 03-28-2022 Functional Status N/A [facility] 02-03-2022 N/A [facility] Clinical Notes 11-04-2021 to 05-04-2023 Note [...] treatment plan. Patient left in stable condition Proficiency Other 10-11-2023 Hospital Discharge instructions Patient Education 03/28/2023 11:46:08 Viral Respiratory Infection, Tzik-Av-Ummi Viral Respiratory Infection A viral respiratory infection [...] at home: Managing pain and congestion Take ewxg-zqq-albdndz and prescription medicines only as told by [...] cannot use soap and water, use hand coat ironer hand. ?Cover your mouth when you cough. Cover [...] away. Call your local emergency services (911 inthe [place] Do not wait to see if [...] provider. Document Revised: 09/08/2021 Document Reviewed: 09/08/2021 [employer] Patient Education 2022 [employer]. Follow Up Care 03/28/2023 10:03:13 With:RIGOBERTO CHURCH, MAXWELL PARKINSON Address: [address] [place] [address] When: Unknown [facility] 01-17-2023 Evaluation + Plan [...] in the morning it is better. Previous memory care program director did not help. Previous physical therapy did not help. Anti-inflammatory medications do not help. Health Status Allergies: Allergic Reactions (Selected) Moderate Dilaudid- Hives. Severity Not Documented Morphine- Anaphylaxis. OxyCODONE- Nausea., Allergies (3) ActiveReaction DilaudidHives morphineanaphylaxis oxyCODONENausea Current medications: (Selected) Prescriptions Prescribed Lexapro 20 mg Tab: 20 mg = 1 tab(s), Oral, Daily, # 30 tab(s), Refills(s) 1, [id number] 178, cm, 04/28/22 15:31:00 EST, Height/Length Dosing, 79.7, kg, 04/28/22 15:31:00 EST, Weight Dosing Vistaril 25 mg Cap: 25 mg = 1 cap(s), Oral, TID, PRN for anxiety, # 40 cap(s), Refills(s) 2, [id number], 178, cm, 04/28/22 15:31:00 EST, Height/Length Dosing, 79.7, kg, 04/28/22 15:31:00 EST, Weight Dosing cyclobenzaprine 10 mg Tab: 10 mg = 1 tab(s), Oral, TID, PRN for spasm, # 30 tab(s), Refills(s) 0, Pharmacy: [id number], 178, cm, 03/28/22 14:15:00 EDT, Height/Length Dosing, 83.1, kg, 03/28/22 14:15:00 EDT, Weight Dosing phenylephrine 0.25% rectal gel: 1 evelyn, Topical, Daily for itching, 54 gram, Refill(s) 0, [id number], 180, cm, 06/06/22 15:30:00 EST, Height/Length Dosing, 77, kg, 06/06/22 15:30:00 EST, Weight Dosing Documented Medications Documented acetaminophen: 1,000 mg, Oral, TID, PRN as needed for pain, Refills(s) 0 Problem list: All Problems Former smoker / SNOMED CT 44791175 / Confirmed BMI 23.0-23.9, adult / SNOMED CT 6538277620 / Confirmed Family history unknown / SNOMED CT 6771736251 / Confirmed Screening for cardiovascular condition / SNOMED CT 924837323 / Confirmed Enlarged tonsils / SNOMED CT 283974694 / Confirmed Difficulty swallowing / SNOMED CT 27936634 / Confirmed Constipation / SNOMED CT 77328364 / Confirmed after GB removed Hemolytic anemia / SNOMED CT 226636656 / Confirmed Non-smoker / SNOMED CT 33403327 / Confirmed Stomal ulcer / SNOMED CT 6516918837 / Confirmed Splenomegaly / SNOMED CT 14988280 / Confirmed Hospital discharge follow-up / SNOMED CT 7158905216 / Confirmed Hereditary spherocytosis / SNOMED CT 68525268 / Confirmed Testicle lump / SNOMED CT 241623476 / Confirmed Cervical radiculopathy / SNOMED CT 206946341 / Confirmed Cervical spondylosis / SNOMED CT 1338229229 / Confirmed Muscle spasms of neck / SNOMED CT 8216596485 / Confirmed Insomnia / SNOMED CT 803025313 / Confirmed Medial epicondylitis / SNOMED CT 55751786 / Confirmed Anxiety / SNOMED CT 29274879 / Confirmed PTSD (post-traumatic stress disorder) / SNOMED CT 52397907 / Confirmed Hearing deficit / SNOMED CT 21580526 / Confirmed Lower back pain / SNOMED CT 685224193 / Confirmed History of neck pain / SNOMED CT 8006487031 / Confirmed Resolved: Cholelithiasis / SNOMED CT 946590329 2009 Resolved: Sleep apnea / SNOMED CT 955030468 Canceled: Well adult exam / SNOMED CT 613809481 Canceled: Sore throat / SNOMED CT 286040749 Canceled: Pain in the abdomen / SNOMED CT 07234807 Canceled: Fever / SNOMED CT 9063075620 Objective Vital Signs 07/04/2022 15:31 EST Peripheral [...] Difficulty with overhead activity Integumentary: Warm, Dry, [place]. Injection site well-healed Neurologic: Alert, Oriented. Psychiatric: [...] on May 21, 2022 11:00 EST Encounter info:[id number], Cale Andujar, Outpatient, 05/19/2022 - 05/19/2022 Impression and Plan [...] Date:08/04/2022 03:00:00 PM Scheduled Provider:Leah Myrick PA-C Location:FT.[facility] Appointment Type:Pain Management - Follow Up (FT) [facility]12-27-2022 Note [id number]:127[facility] 05-23-2022 Evaluation + Plan noteExtracted from: Title:FUV [...] Patient voiced understanding and will do so. [facility]12-02-2022 Hospital Discharge instructions Patient Education 05/19/2022 10:49:16 [...] pain. Follow these instructions at home: Take lriw-ykf-qzndwin and prescription medicines only as told by [...] 03/09/2005 Document Revised: 05/17/2018 Document Reviewed: 05/25/2017 [employer] Patient Education 2020 [employer]. Follow Up Care 05/19/2022 09:54:52 With:Lelia Franklin Address: [facility] [address] [place] [address] [phone] Business (1) When:05/22/2022 10:38:14 [facility]11-28-2022 Hospital Discharge instructions Patient Education 05/14/2022 22:51:09 [...] Follow these instructions at home: Medicines Take skxz-dll-ncuxvsu and prescription medicines only as told by [...] of a condition that needs treatment. Take mpce-rvy-azypxhy and prescription medicines only as told by [...] 12/01/2011 Document Revised: 06/23/2019 Document Reviewed: 06/23/2019 [employer] Patient Education 2019 [employer]. Follow Up Care 05/14/2022 19:34:16 With:Lelia Franklin Address: [address] [place] [address] [phone] Business (1) When:05/17/2022 [facility]11-25-2022 Hospital Discharge instructions Patient Education 05/12/2022 12:04:07 [...] than 2 years old. Live in a usp. Travel on cruise ships. What are the [...] and water are not available, use hand coat ironer hand. Make sure that all people in your household wash their hands well and often. Take eykl-zse-ytrxfyh and prescription medicines only as told by [...] and water are not available, use hand coat ironer hand. This information is not intended to replace advice given to you by your health care provider. Make sure you discuss any questions you have with your health care provider. Document Released: 06/04/2006 Document Revised: 11/21/2019 Document Reviewed: 04/09/2019 [employer] Patient Education 2020 [employer]. 05/12/2022 12:04:02 Upper Respiratory Infection, Adult Upper [...] medicines to help relieve symptoms, such as: Zasr-gsq-pmqpukj cold medicines. Cough suppressants. Coughing is a [...] and other clear broths. General instructions Take biqi-xuj-msfmdzv and prescription medicines only as told by [...] and water are not available, use hand coat ironer hand. ?Avoid touching your mouth, face, eyes, or [...] 11/28/2001 Document Revised: 06/12/2019 Document Reviewed: 01/18/2018 [employer] Patient Education 2020 [employer]. Follow Up Care 05/12/2022 10:54:54 With:Rigoberto CHURCH, MAXWELL Parkinson Address: [address] [place] [address] [phone] When: Unknown [facility] 11-21-2022 Evaluation + Plan [...] 02:45:00 PM Scheduled Provider:Sen Burgess MD Location[facility] Appointment Type:Pain Management - Follow Up (FT) [facility]05-20-2022 Evaluation + Plan noteExtracted from: Title:ED Note [...] 10:27:00 EDT XR Tib/Fib Right 2 View [facility]05-20-2022 Hospital Discharge instructions Patient Education 11/04/2021 11:31:02 Laceration Care, 7-10 (UMN850) Laceration Care A laceration is a cut [...] it as soon as possible. Only take mpim-seo-nzjamay or prescription medicines for pain, discomfort, or [...] 06/04/2006 Document Re-Released: 05/17/2009 ExitCare Patient Information 2009 el?. Follow Up Care 11/04/2021 10:07:42 With:[facility]: [facility] [phone] Address:Unknown When:11/07/2021 11:18:10 Comments:stitches to be removed in 10-14 days [facility]ments Appointment Date:03/08/2022 06:45:00 AM Scheduled Provider: Location:[facility] [place] Appointment Type:PT [facility] (FT) Appointment Date:03/10/2022 06:45:00 AM Scheduled Provider: Location[facility] [place] Appointment Type:PT T[facility] First (FT) Appointment Date:03/15/2022 06:45:00 AM Scheduled Provider: Location[facility] [place] Appointment Type:PT Re-Eval 30 ([facility] Future Appointments Appointment Date:04/28/2022 03:20:00 PM Scheduled Provider:Lelia Franklin NP Location:[facility] Appointment Type:FM [facility] [place] Evaluation + Plan note Future Appointments Appointment Date:05/23/2022 02:45:00 PM Scheduled Provider:eSn Burgess MD Location:[facility] Appointment Type:Pain Management - Follow Up (FT) [facility] Evaluation + Plan note Future Appointments Appointment Date:05/23/2022 01:20:00 PM Scheduled Provider:Lelia Franklin NP Location:[facility] Appointment Type: ER/Hospital Follow Up Appointment Date:05/23/2022 02:45:00 PM Scheduled Provider:Sen Burgess MD Location:[facility] Appointment Type:Pain Management - [facility] App[facility]ments Appointment Date:07/04/2022 03:30:00 PM Scheduled Provider:Sen Burgess MD Location:[facility] App[facility] Type:[facility] Dyspnea, unspecified type- Primary Dyspnea, unspecified type [facility] Dyspnea, unspecified type [facility]* Diagnosis Arthritis- Primary Arthropathy, unspecified, site unspecified Arthritis Arthropathy, unspecified, site unspecified [facility]* Diagnosis Arthritis Arthropathy, unspecified, site unspecified [facility] noteNo assessment [facility] Work Phone: Evaluation note* Diagnosis Onset Date Resolution Status Low back strain acute Contact with and (suspected) exposure to covid-19 noneactive [facility] Work Phone: Hospital course Narrative No data available for this section [facility] Discharge instructions No data available for this section [facility] Progress note No data available for this section [facility] Reason for referral (narrative) Referred by: Lelia Franklin NP [facility] Summary Purpose Family History No Family History Records Found Relationship Condition Age at Onset Recorded Date/T chioma father Hypertension Unknown mother Phlebitis and thrombophlebitis Unknown Advance Directives No Advanced Directives Records Found Advance Directive Response Recorded Date/ Time Advance Directives No December 10 2:40pm Hospital Course Note Send Summary: Discharge Summ barby Providers: Provider RoleProvider Name Eagle RaymondOndersEagle Kaitlin E Note Recipients: Eagle Mcmanus MD Schwerer, Kaitlin E, MD - [phone] [] Discharge: Summary: Admission Date: .21-Jan-2020 09:19:00 Discharge Date: 28-Jan-2020 Attending Physician at Discharge: Eagle Mcmanus Admission Reason: postop bleeding(1) Final Discharge Diagnoses: Hereditary spherocytosis Procedures: Date: 21-Jan-2020 16:05:00 Procedure Name: 1. laparoscopic splenectomy Date: 22-Jan-2020 12:36:00 Procedure Name: splenic artery branch embolization Condition at Discharge: Satisfactory Disposition at Discharge: .Home Vital Signs: T PRBPSpO2 [id number]/7599% Date/Time01/27 16:048 16:048 16:048 16:048 16:04 Range(36C - 37.4C ) (84 - [...] laparoscopic splenectomy Surgeon: Dr Eagle Mcmanus Resident/Fellow/Other Knowledge Management Consultant: Dr Lynnette Kaiser, Dr Annette Kaufman Anesthesia: [...] Verification and Time Out: Procedure Locationprocedure area [facility] - Pre-procedure Verificationcompleted TIME OUT - Final Verificationcompleted DEBRIEFcompleted General Information: Anesthesia Critical Care: Non-Anesthesia Date/Time of Procedure: 22-Jan-2020 12:36 Post-Procedure 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 Procedure Name: splenic artery branch embolization Findings: 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 Procedure performed by: freddie hurt Knowledge Management Consultant(s): tammy Estimated Blood Loss (mL): none Specimen: [...] laparoscopic splenectomy Surgeon: Dr Eagle Mcmanus Resident/Fellow/Other Knowledge Management Consultant: Dr Lynnette Kaiser, Dr Annette Kaufman Anesthesia: [...] Verification and Time Out: Procedure Locationprocedure area [facility] - Pre-procedure Verificationcompleted TIME OUT - Final Verificationcompleted DEBRIEFcompleted General Information: Anesthesia Critical Care: Non-Anesthesia Date/Time of Procedure: 22-Jan-2020 12:36 Post-Procedure 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 Procedure Name: splenic artery branch embolization Findings: 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 Procedure performed by: freddie hurt Knowledge Management Consultant(s): tammy Estimated Blood Loss (mL): none Specimen: [...] Specialty Diagnoses / Procedures Referred By Raquel t Referred To Contact Radiology Diagnoses Arthritis Procedures XR C-SPINE 4 VIEWS Rosario Trevizo [address] [place] [address] [facility]IOLOG[facility] [address] [place] [address] [place] [address] Referral ID Status Reason Start Date Expiration Date Visits Re quested Visits Authorized [id number] Closed 07/19/2023 07/18/2024 1 1 Specialty Diagnoses / Procedures Referred By Contana t Referred To Contact Radiology Diagnoses Dyspnea, unspecified type Procedures XR CHEST PA+LAT 2 VIEWS Rosario Trevizo [address] [place] [address] [facility] RADIOLOGY [address] [place] [address] [place] [phone] Referral ID Status Reason Start Date Expiration Date Visits Re quested Visits Authorized [id number] Closed 07/16/2023 07/15/2024 1 1 Chief Complaint [...] ized section and content) DATE CREATED AUTHOR 02/06/2020 [facility] DATE CREATED AUTHOR AUTHOR'S ORGANIZ ATION 06/29/2020 [facility] DATE CREATED AUTHOR AUTHOR'S ORGANIZ ATION 05/07/2023 [facility] DATE CREATED AUTHOR AUTHOR'S ORGANIZ ATION [facility]/23/2023 [facility] DATE CREATED AUTHOR AUTHOR'S ORGANIZ ATION 09/07/2024 [facility] Care Team (unrecognized sect ion and content) [...] VIEWS Rosario Trevizo [address] [place] [address] [facility] RADIOLOGY [address] [place] [address] [place] [phone] Referral ID Status Reason Start Date Expiration Date Visits Re quested Visits Authorized [id number] Closed 07/16/2023 07/15/2024 1 1 Specialty Diagnoses / Procedures Referred By Contac t Referred To Contact Radiology Diagnoses Arthritis Procedures XR C-SPINE 4 VIEWS Rosario Trevizo [address] [place] [address] [facility]IOLOGY [address] [place] [address] [place] [phone] Referral ID Status Reason Start Date Expiration Date Visits Re quested Visits Authorized [id number] Closed 07/19/2023 07/18/2024 1 1 Goals (unrecognized [...] BE BASED ON THE PRIMARY CLINICAL RECORDS. [facility]. provides no warranty or guarantee of the accuracy or completeness of information in this document.
--- NOTE | 2024-09-10 10:31 | ED_ITS ---
HPI HPI - General Adult General Chief complaint: Ear Stated complaint: HEAD,EAR PAIN Time Seen by Provider: 09/10/24 10:12 Source: patient Mode of arrival: walk-in Limitations: no limitations History of Present Illness HPI narrative: Patient presents to ED complaining of headache sinus pain and ear pain. Patient states he had a surgery on Sunday with an ENT for turbinate reduction sinus surgery as well as bilateral ear drainage. Patient said he had his ear drums cut to drain fluid. He said he was doing okay over the weekend but yesterday and today he started to get more more pain. He said he has been trying to take Vicodin but it is not helping as much as it was in the beginning. He said he felt like he had a lot of pressure in his sinuses face and ears. He did try to call the surgeons office, he had this done by ent at [facility] by Dr. Coppola. He said he called the office but was awaiting a return of call. He also said he has been feeling some fevers although when he takes his temperature at home it is normal. No nausea vomiting. Patient states he is allergic to morphine but fentanyl works for him. Related Data Home Medications ?Medication ?Instructions ?Recorded ?Confirmed sertraline 50 mg tablet 150 mg PO Q24H 06/20/23 05/06/24 Previous Rx's ?Medication ?Instructions ?Recorded amoxicillin 875 mg-potassium 1 tab PO Q12H #20 tabs 09/10/24 clavulanate 125 mg tablet Allergies Allergy/AdvReac Type Severity Reaction Status Date / Time morphine Allergy Severe Anaphylaxis Verified 05/06/24 21:43 hydromorphone (From Dilaudid) Allergy Mild Nausea Verified 05/06/24 21:43 oxycodone Allergy Mild Nausea Verified 05/06/24 21:43 Opioid HPI Opioid Management Most Recent Opioid Data: Last Pain Scale 7 09/10/24 10:40 09/10/24 Last AUG Pain Assessment 09/10/24 10:40 Review of Systems ROS Status of ROS 10 or more systems reviewed and unremark able except as noted in history and below [facility] Medical History (Updated 09/10/24 @ 11:27 by Irena Green DO) Hereditary spherocytosis ?D58.0 - Hereditary spherocytosis (ICD-10) Deviated nasal septum ?J34.2 - Deviated nasal septum (ICD-10) Melena ?K92.1 - Melena (ICD-10) Depression ?F32.A - Depression, unspecified (ICD-10) Insomnia ?G47.00 - Insomnia, unspecified (ICD-10) Bulging disc Chronic migraine Surgical History (Updated 06/21/23 @ 00:01 by Rebecca Moody) H/O hernia repair ?Z98.890 - Other specified postprocedural states (ICD-10) ?Z87.19 - Personal history of other diseases of the digestive system (ICD-10) History of cholecystectomy ?Z90.49 - Acquired absence of other specified parts of digestive tract (ICD- 10) Hx of tonsillectomy ?Z90.89 - Acquired absence of other organs (ICD-10) H/O splenectomy ?Z90.81 - Acquired absence of spleen (ICD-10) Family History (Updated 06/21/23 @ 00:02 by Rebecca Moody) Uncle Family history of myocardial infarction Social History (Updated 06/21/23 @ 00:06 by Rebecca Moody) Within the past year, how often did you have a drink containing alcohol: never Score interpretation: A score less than 4 is consistent with normal alcohol consumption. 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 Highest level of school completed/degree received: high school graduate Are you now , , , , never or living with a partner: In a typical week, how many times do you talk on the telephone with family, friends, or neighbors: 3 or more times per week How often do you get together with friends or relatives: 3 or more times per week How often do you attend latter-day or buddhism services: never Do you belong to any clubs or organizations such as latter-day groups unions, fraternal or athletic groups, or school groups: no Total score: 1 Score interpretation: A score of less than or equal to 1 indicates the most socially isolated. Little interest or pleasure in doing things: not at all Feeling down, depressed, or hopeless: not at all Feel stressed/tense/nervous/anxious/difficulty sleeping: to some extent Do you think of yourself as: straight/heterosexual Gender Identity: male Exam Narrative Exam Narrative: Time Seen: [] Vital Signs: [Per nurse's notes.] General: [Alert] Skin: [Warm, dry, no rash.] Head: [Normocephalic, atraumatic.] Neck: [Supple, trachea midline.] Eye: [Pupils are equal, round and reactive to light, extraocular movements are intact, normal conjunctiva.] Ears, nose, mouth and throat: oral mucosa moist. No posterior pharynx bleeding. Dried blood in bilateral ear canals, TMs appear normal Cardiovascular: [Regular rate and rhythm, no murmur.] Respiratory: [Lungs are clear to auscultation, respirations are non-labored, breath sounds are equal.] Chest wall: [No tenderness, no deformity.] Gastrointestinal: [Soft, nontender, non distended, normal bowel sounds.] MSK: 5 out of 5 muscle strength x 4 extremities no calf pain or edema Lymphatics: [No lymphadenopathy.] Psychiatric: [Cooperative, appropriate mood & affect.] Neurological: [Alert and oriented to person, place, time, and situation, no focal neurological deficit observed.] Constitutional Vital Signs, click to edit/add: Last Vital Signs Temp 98.3 F 09/10/24 10:10 Pulse 70 09/10/24 11:07 Resp 18 09/10/24 11:07 BP 133/95 H 09/10/24 11:07 Pulse Ox 95 09/10/24 11:07 O2 Del Method Room Air 09/10/24 10:10 Course Vital Signs Vital signs: Vital Signs Temperature 98.3 F 09/10/24 10:10 Pulse Rate 83 09/10/24 10:10 Respiratory Rate 18 09/10/24 10:10 Blood Pressure 149/95 H 09/10/24 10:10 Pulse Oximetry 97 09/10/24 10:10 Oxygen Delivery Method Room Air 09/10/24 10:10 Temperature 98.3 F 09/10/24 10:10 Pulse Rate 70 09/10/24 11:07 Respiratory Rate 18 09/10/24 11:07 Blood Pressure 133/95 H 09/10/24 11:07 Pulse Oximetry 95 09/10/24 11:07 Oxygen Delivery Method Room Air 09/10/24 10:10 Medical Decision Making MDM Narrative Medical decision making narrative: Patient's labs were negative for acute findings. His white blood cell count was slightly elevated however it is lower than it normally is for him. Patient CT scan shows some mucosal thickening in the sinuses which could be infection versus postoperative changes. I spoke to Dr. Coppola his ENT surgeon who said this could possibly be infection and she agrees with Augmentin use and she will see him in the office. She states he should not be placed on any more pain medication as she prescribed Vicodin for him already. Return to ED if worsening symptoms otherwise follow-up outpatient with Dr. Coppola [facility] the [facility]. Patient is comfortable with care plan for home. Differential Diagnosis Differential Diagnosis: Infection, bleeding, postop pain Medical Records Medical records reviewed: Yes I reviewed the patient's medical records Lab Data Lab results reviewed: Yes I reviewed the patient's lab results Labs: Lab Results 09/10/24 Range/Units 10:32 WBC 14.0 H (4.0-11.0) 10^3/uL RBC 6.14 H (4.70-6.10) 10^6/uL Hgb 17.2 (14.0-18.0) g/dL Hct 48.4 (42.0-54.0) % MCV 78.8 L (80.0-94.0) fL MCH 28.0 (25.9-34.0) pg MCHC 35.5 H (29.9-35.2) g/dL RDW 12.2 (11.0-15.0) % Plt Count 460 H (150-450) 10^3/uL MPV 10.3 (9.5-13.5) fL Neut % (Auto) 54.2 (43.0-75.0) % Lymph % (Auto) 34.8 (20.5-60.0) % Crisp % (Auto) 7.1 (1.7-12.0) % Eos % (Auto) 2.5 (0.9-7.0) % Baso % (Auto) 0.8 (0.2-2.0) % Neut # (Auto) 7.6 H (1.4-6.5) 10^3/uL Lymph # (Auto) 4.9 H (1.2-3.8) 10^3/uL Crisp # (Auto) 1.0 H (0.3-0.8) 10^3/uL Eos # (Auto) 0.4 (0.0-0.7) 10^3/uL Baso # (Auto) 0.1 (0.0-0.1) 10^3/uL Abs Immat Gran (auto) 0.08 H (0.00-0.03) 10^3/uL Imm/Tot Granulo (auto) 0.6 H (0.0-0.5) % Sodium 137 (136-145) mmol/L Potassium 4.4 (3.5-5.1) mmol/L Chloride 102 (98-107) mmol/L Carbon Dioxide 27.0 (21.0-32.0) mmol/L Anion Gap 12.4 BUN 10.0 (7.0-18.0) mg/dL Creatinine 1.08 (0.70-1.30) mg/dL Est GFR ( Amer) >60 (>=60 mL/min/1.73m^2) Est GFR (Non-Af Amer) >60 (>=60 mL/min/1.73m^2) BUN/Creatinine Ratio 9.3 Glucose 97 (74-106) mg/dL Calcium 9.7 (8.5-10.1) mg/dL Total Bilirubin 0.6 (0.2-1.0) mg/dL AST 25 (15-37) U/L ALT 37 (16-63) U/L Alkaline Phosphatase 92 (46-116) U/L Total Protein 8.2 (6.4-8.2) g/dL Albumin 4.3 (3.4-5.0) g/dL Globulin 3.9 g/dL Albumin/Globulin Ratio 1.[address] scan - head: Attestation: I have reviewed the pertinent imaging results. Discharge Plan Discharge Chief Complaint: Ear Clinical Impression: Sinusitis Patient Disposition: Home, Self-Care Time of Disposition Decision: 11:26 Condition: Good Mode of Transportation: Private Vehicle Prescriptions / Home Meds: New amoxicillin-pot clavulanate 875-125 mg tablet 1 tab PO Q12H Qty: 20 0RF No Action sertraline 50 mg tablet 150 mg PO Q24H Print Language: Norwegian Instructions: Sinusitis (ED) Referrals: Physician,Non-Staff, MD [Primary Care Provider] - 1 week
[2024-09-10 10:40] LABS: Basophils Absolute Auto 0.1 10^3/uL (0.0-0.1); Basophils Percent Auto 0.8 % (0.2-2.0); Eosinophils Absolute Auto 0.4 10^3/uL (0.0-0.7); Eosinophils Percent Auto 2.5 % (0.9-7.0); Hematocrit 48.4 % (42.0-54.0); Hemoglobin 17.2 g/dL (14.0-18.0); Immature Granulocytes Abs Auto 0.08 10^3/uL (0.00-0.03); Immature Granulocytes Pct Auto 0.6 % (0.0-0.5); Lymphocytes Absolute Auto 4.9 10^3/uL (1.2-3.8); Lymphocytes Percent Auto 34.8 % (20.5-60.0); Mean Corpuscular HGB Conc 35.5 g/dL (29.9-35.2); Mean Corpuscular Volume 78.8 fL (80.0-94.0); Mean Platelet Volume 10.3 fL (9.5-13.5); Monocytes Percent Auto 7.1 % (1.7-12.0); Neutrophils Absolute Auto 7.6 10^3/uL (1.4-6.5); Neutrophils Percent Auto 54.2 % (43.0-75.0); Platelet Count 460 10^3/uL (150-450); Red Blood Count 6.14 10^6/uL (4.70-6.10); Red Cell Distribution Width 12.2 % (11.0-15.0)
[2024-09-10] MEDS: KETOROLAC TROMETHAMINE 30 MG/ML VIAL 15 MG IVP (10:40)
[2024-09-10] MEDS: FENTANYL CITRATE/PF 100 MCG/2 ML VIAL 50 MCG IV (10:40)
[2024-09-10 10:58] LABS: Alanine Aminotransferase 37 U/L (16-63); Albumin Globulin Ratio 1.1; Albumin Level 4.3 g/dL (3.4-5.0); Alkaline Phosphatase 92 U/L (46-116); Anion Gap 12.4; Aspartate Amino Transferase 25 U/L (15-37); BUN Creatinine Ratio 9.3; Bilirubin Total 0.6 mg/dL (0.2-1.0); Calcium 9.7 mg/dL (8.5-10.1); Chloride 102 mmol/L (98-107); Estimated GFR (African America >60 (>=60 mL/min/1.73m^2); Estimated GFR (Non-African Ame >60 (>=60 mL/min/1.73m^2); Globulin 3.9 g/dL; Glucose 97 mg/dL (74-106); Potassium 4.4 mmol/L (3.5-5.1); Sodium 137 mmol/L (136-145); Total Protein 8.2 g/dL (6.4-8.2)
[2024-09-10 11:07] VITALS: BP 133/95; PULSE 70; O2SAT 95
== END 2024-09-10 11:38 | disposition home or self-care (01) ==
PROVIDERS: Emergency Provider Emergency Medicine
DX: J32.9 Chronic sinusitis, unspecified (principal); Z98.890 Other specified postprocedural states; Z90.49 Acquired absence of other specified parts of digestive tract; Z90.81 Acquired absence of spleen; F17.290 Nicotine dependence, other tobacco product, uncomplicated
CPT/HCPCS: 36415; 70486; 80053; 85025; 96374; 96375; 99284; J1885; J3010

== ENCOUNTER 2024-12-09 00:51 | Emergency (ER) | payer OTHER, SELFPAY ==
[2024-12-09 01:02] VITALS: BP 149/95; PULSE 63; TEMP 36.6; O2SAT 98; BMI 24.4
--- OUTSIDE RECORDS SUMMARY | 2024-12-09 01:02 | XMS_ITS | CCD ---
Author Organization [facility] Care Team Providers Care Weigher And Charger Name Role Phone Lelia Franklin Primary Care Physician [phone] Ade Fuller Unavailable Unavailable Zoila Webb Unavailable [...] Admitting Unavailable Sen Burgess Attending Unavailable Sen Burgses Referring Unavailable MABLE STEPHENSON Attending Unavailable MABLE STEPHENSON Admitting Unavailable Unavailable Primary Care Provider Unavailabl e PROVIDER, UNKNOWN Admitting Unavailable ROSARIO TREVIZO Referring Unavailabl e PROVIDER, UNKNOWN Attending Unavailable ROSARIO TREVIZO Referring Unavailabl e PROVIDER, UNKNOWN Attending Unavailable PROVIDER, UNKNOWN Admitting Unavailable Allergies Allergy Classification Reported Allergen(s) Allergy Type Date of Onset Reaction(s) Facility (16 sources) HYDROmorphone; Translations: [hydromorphone] Drug Allergy Weal (disorder) [facility] (19 sources) Morphine; Translations: [morphine] Drug Allergy 12-11-2023 anaphylaxis, Unknown, Unknown Reaction [facility] (19 sources) oxyCODONE; Translations: [oxycodone] Drug Allergy 12-11-2023 Nausea (finding) [facility] (2 sources) 50-jprgj-Gsbwvmr progesterone Drug Allergy 12-11-2023 Unknown Reaction [facility] Medications Current Medications Medication Drug Class(es) [...] day(s), # 21 cap(s), Refills(s) 0, Pharmacy: [facility]/pharmacy #[id number], 177, cm, 03/28/23 10:47:00 EDT, Height/Length Dosing, 75.8, kg, 03/28/23 10:47:00 EDT, Weight Dosing Start Date: 03/28/23 Stop Date: 04/04/23 Status: Ordered Start: 05-19-2022 End: 05-26-2022 take 1 capsule by mouth three times daily benzonatate 200 mg oral capsule 200 mg = 1 cap(s), Oral, TID, X 7 day(s), # 21 cap(s), Refills(s) 0, Pharmacy: [facility]/pharmacy #[id number], 180, cm, 05/19/22 10:12:00 EST, Height/Length Dosing, 80, kg, 05/19/22 10:12:00 EST, Weight Dosing Start Date: 05/19/22 Stop Date: 05/26/22 Status: Ordered brompheniramine maleate 0.2 mg/ml / dextromethorphan hydrobromide 1 mg/ml / phenylephrine hydrochloride 0.5 mg/ml oral solution (4 sources) Uncompetitive Y-aaeqrq-E-aspartate Receptor Antagonist, Sigma-1 Agonist, alpha-1 Adrenergic Agonist Start: 05-14-2022 take 10 mL by mouth every four hours for cough and congestion brompheniramine/dextromethorph/phenyleph rine 1 mg-5 mg-2.5 mg/5 mL oral liquid 10 mL, Oral, q4hr for cough and congestion, 118 mL, Refill(s) 0, [facility]/pharmacy #[id number], 180, cm, 05/14/22 19:45:00 EST, Height/Length Dosing, 79.5, kg, 05/14/22 19:45:00 EST, Weight Dosing Start Date: 05/14/22 Status: Ordered brompheniramine maleate 0.4 mg/ml / dextromethorphan hydrobromide 2 mg/ml / pseudoephedrine hydrochloride 6 mg/ml oral solution (2 sources) alpha-Adrenergic Agonist, Uncompetitive T-vsolsx-L-aspartate Receptor Antagonist, Sigma-1 Agonist Start: 05-12-2022 End: 05-19-2022 take 10 mL by mouth every six hours Bromfed DM oral syrup 10 mL, Oral, q6hr for cold symptoms for 7 day(s), 280 mL, Refill(s) 0, [facility]/pharmacy #[id number], 178, cm, 05/12/22 11:45:00 EST, [...] day(s), # 20 cap(s), Refills(s) 0, Pharmacy: [facility]/pharmacy #6173, 180, cm, 05/19/22 10:12:00 EST, [...] Daily, # 30 tab(s), Refills(s) 1, [id number] 178, cm, 04/28/22 15:31:00 EST, Height/Length Dosing, 79.7, kg, 04/28/22 15:31:00 EST, Weight Dosing Start Date: 04/28/22 Status: Ordered Start: 03-28-2022 take 1 tablet by aries th once daily Lexapro 10 mg Tab 10 mg = 1 tab(s), Oral, Daily, # 30 tab(s), Refills(s) 1, Pharmacy: [facility]/pharmacy #6173, 178, cm, 03/28/22 14:15:00 EDT, Height/Length Dosing, 83.1, kg, 03/28/22 14:15:00 EDT, Weight Dosing Start Date: 03/28/22 Status: Ordered gabapentin 300 mg oral capsule (1 source) Anti-epileptic Agent Start: 07-04-2022 take 1 capsule by mouth once daily at bedtime gabapentin 300 mg Cap 300 mg = 1 cap(s), Oral, Once a day (at bedtime), # 30 cap(s), Refills(s) 1, Pharmacy: [facility]/pharmacy #[id number], 180, cm, 07/04/22 15:40:00 EST, [...] anxiety, # 40 cap(s), Refills(s) 2, [facility] 178, cm, 04/28/22 15:31:00 EST, Height/Length Dosing, 79.7, kg, 04/28/22 15:31:00 EST, Weight Dosing Start Date: 04/28/22 Status: Ordered Stanton (1 source) Stanton Active methocarbamol 750 mg oral tablet (1 source) Muscle Relaxant Start: 02-03-2022 End: 02-10-2022 take 2 tablets by mouth at bedtime methocarbamol 750 mg Tab 1,500 mg = 2 tab(s), Oral, Bedtime, X 7 day(s), # 14 tab(s), Refills(s) 0, [id number] 178, cm, 02/03/22 10:55:00 EDT, Height/Length Dosing, 80.8, kg, 02/03/22 10:55:00 EDT, Weight Dosing Start Date: 02/03/22 Stop Date: 02/10/22 Status: Ordered methylPREDNISolone 4 mg oral tablet (3 sources) Corticosteroid Start: 02-03-2022 End: 02-09-2022 Medrol 4 mg Tab = 1 packet(s), Oral, As Directed, as directed on package labeling, X 6 day(s), # 21 tab(s), Refills(s) 0, [id number], 178, cm, 02/03/22 10:55:00 EDT, Height/Length Dosing, 80.8, kg, 02/03/22 10:55:00 EDT, Weight Dosing Start Date: 02/03/22 Stop Date: 02/09/22 Status: Ordered Start: 12-23-2021 End: 12-29-2021 Medrol 4 mg Tab = 1 packet(s ), Oral, As Directed, as directed on package labeling, X 6 day(s), # 21 tab(s), Refills(s) 0, Pharmacy: [facility]/pharmacy #6173, 178, cm, 12/23/21 16:48:00 EDT, Height/Length Dosing, 81, kg, 12/23/21 16:48:00 EDT, Weight Dosing Start Date: 12/23/21 Stop Date: 12/29/21 Status: Ordered phenylephrine 0.0025 mg/mg / witch vikas 0.5 mg/mg rectal gel (2 sources) alpha-1 Adrenergic Agonist Start: 06-06-2022 phenylephrine 0.25% rectal gel 1 evelyn, Topical, Daily for itching, 54 gram, Refill(s) 0, [facility]/pharmacy #[id number], 180, cm, 06/06/22 15:30:00 EST, [...] day(s), # 7 tab(s), Refills(s) 0, Pharmacy: [facility]/pharmacy #6173, 177, cm, 03/28/23 10:47:00 EDT, Height/Length Dosing, 75.8, kg, 03/28/23 10:47:00 EDT, Weight Dosing Start Date: 03/28/23 Stop Date: 04/04/23 Status: Ordered Start: 05-19-2022 End: 05-24-2022 take 3 tablets by mouth once daily predniSONE 20 mg Tab 60 mg = 3 tab(s), Oral, Daily, X 5 day(s), # 15 tab(s), Refills(s) 0, Pharmacy: [facility]/pharmacy #[id number], 180, cm, 05/19/22 10:12:00 EST, [...] spasm, # 30 tab(s), Refills(s) 0, Pharmacy: [facility]/pharmacy #6173, 178, cm, 03/28/22 14:15:00 EDT, Height/Length Dosing, 83.1, kg, 03/28/22 14:15:00 EDT, Weight Dosing Start Date: 03/28/22 Status: Ordered Start: 12-23-2021 End: 01-13-2022 take 1 tablet by mouth at bedtime cyclobenzaprine 5 mg Tab 5 mg = 1 tab(s), Oral, Bedtime, X 21 day(s), # 21 tab(s), Refills(s) 0, Pharmacy: [facility]/pharmacy #[id number], 178, cm, 12/23/21 16:48:00 EDT, Height/Length Dosing, 81, kg, 12/23/21 16:48:00 EDT, Weight Dosing Start Date: 12/23/21 Stop Date: 01/13/22 Status: Ordered Problems Active Problems Problem Classification Problem Date Documented Da te Episodic/Chronic Acute and chronic tonsillitis (15 sources) Enlarged tonsil 06-04-2020 Chronic Anxiety disorders (20 sources) Anxiety; Translations: [...] Test Name Value Interpretation Reference Range Facility SURGICAL PATHOLOGY REFERENCE LAB CONSULTon 09-11-2024 AP DISCLAIMER Normal [facility] Comment on above: Order Comment: Speci men Type: FORMALIN-FIXED PARAFFIN-EMBEDDED TISSUE SPECIMEN Ordering Facility: [facility] Address: ATTN: [place] [address] Result Comment: Pop [place] Test (LDT) Disclaimer: Performance characteristics of immunohistochemical, immunofluorescent, and chromogenic in-situ hybridization tests have been determined by the performing laboratory within [facility]'s [facility] Pathology and Laboratory Medicine Department ([facility], [facility], [facility], [facility], [facility], [facility], or [facility]) in a manner consistent with CLIA requirements. One or more of these tests may not have been cleared or approved by the FDA. [facility] is regulated under CLIA as qualified to perform high-complexity testing. These tests are used for clinical purposes. These should not be regarded as investigational or for research. Positive and negative controls stain appropriately. Performed By: #### L [id number] #### [facility] CLIA [id number] [address] [place] [address] [place] CASE REPORT Normal [facility] Comment on above: Order Comment: Speci men Type: FORMALIN-FIXED PARAFFIN-EMBEDDED TISSUE SPECIMEN Ordering Facility: [facility] Address: ATTN: LABORATORY, [place] [address] Result Comment: Surg ical Pathology Report Case: [id number] Authorizing Provider: Telma Oconnor MD Collected: 09/11/2024 03:56 PM Ordering Location: [facility] Main Received: 09/11/2024 03:49 PM [facility] Pathologist: Sarah Merritt MD, PhD Specimen: Block(s) and/or Slide(s), 2 SLIDES / 1 BLOCK SP-CL [id number] ; A1 Performed By: #### L [id number] #### [facility] CLIA [id number] [address] [place] [address] [place] CLINICAL HISTORY CONSULT REQUESTED Normal [facility] Comment on above: Order Comment: Speci men Type: FORMALIN-FIXED PARAFFIN-EMBEDDED TISSUE SPECIMEN Ordering Facility: [facility] Address: ATTN: [place] [address] Performed By: #### L [id number] #### [facility] CLIA [id number] [address] [place] [address] DIAGNOSIS COMMENT Normal [facility] Comment on above: Order Comment: Speci men Type: FORMALIN-FIXED PARAFFIN-EMBEDDED TISSUE SPECIMEN Ordering Facility: [facility] Address: ATTN: [place] [address] Result Comment: Than k you for sending this case in consultation. The patient is a 29-year-old male with flow cytometry previously sent from the specimen to our institution. Only a T-cell panel was performed, which was unremarkable. Please contact the Hematopathology Consult Service at [phone] for any questions or if additional follow-up information becomes available. Performed By: #### L [id number] #### [facility] CLIA [id number] [address] [place] [address] FINAL DIAGNOSIS Normal [facility] Comment on above: Order Comment: Speci men Type: FORMALIN-FIXED PARAFFIN-EMBEDDED TISSUE SPECIMEN Ordering Facility: [facility] Address: ATTN: [place] [address] Result Comment: A. O utside materials received from [facility], [place], [place] (External ID SP-CL [id number], 09/05/2024) Adenoid, biopsy: -Reactive lymphoid tissue, see comment. [facility] September 19, 2024 at 1914 EDT Performed By: #### L [id number] #### [facility] CLIA [id number] [address] [place] [address] FINAL PERFORMING LAB Normal [facility] Comment on above: Order Comment: Speci men Type: FORMALIN-FIXED PARAFFIN-EMBEDDED TISSUE SPECIMEN Ordering Facility: [facility] Address: ATTN: [place] [id number] Result Comment: Diag nostic interpretation performed at: [facility], [facility] [address] [address] CLIA# [id number] Hazardous Materials Analyst: Oumar Wilder MD Performed By: #### L [id number] #### [facility] CLIA [id number] [facility] [address] [address] [place] MICROSCOPIC DESCRIPTION Normal [facility] Comment on above: Order Comment: Speci men Type: FORMALIN-FIXED PARAFFIN-EMBEDDED TISSUE SPECIMEN Ordering Facility: [facility] Address: ATTN: LABORATORY, [place] [address] Result Comment: Hist ologic sections demonstrate fragments of sinonasal mucosa with an increased lymphoid infiltrate. The lymphoid cells are predominantly small to medium in size. The background epithelium appears benign. Stains are performed further clarify the morphologic findings. CD3 and CD5 show numerous interspersed background T cells. A larger fraction of lymphoid cells appear to express CD20. They predominantly express Bcl2. CD10 and Bcl6 are largely negative except for focal follicles. The lymphoid cells are negative for cyclin D1. CD21 shows focal dendritic meshworks. Ki67 is overall low. CISH for MIGUEL is negative. CD56 shows only scattered positivity. An ultrasensitive CISH stain for kappa and lambda shows polytypic B cells and plasma cells and is compatible with a more nodular pattern. Performed By: #### L [id number] #### [facility] CLIA [id number] [address] [place], [place] [id number] [place] FLOW CYTOMETRY RLLYMPon 08-17 FLOW CYTOMETRY ORDER STATUS Results will be reported under F case ID when completed Normal [facility] Comment on above: Order Comment: Speci men Type: TISSUE SPECIMEN Ordering Facility: [facility] Address: ATTN: LABORATORY, [place] [address] Performed By: #### R LLYMP #### [facility] CLIA [id number] [facility] [address] [address] [place] FLOW CYTOMETRY RLLYMP REFLEX on 09-05-2024 DIAGNOSIS COMMENT This test was develo ped and its performance characteristics determined by [facility]'s [facility] [place] (-[facility]). It has not been cleared or approved by the FDA. [facility] is regulated under CLIA as qualified to perform high-complexity testing. This test is used for clinical purposes. It should not be regarded as investigational or for research. Normal [facility] Comment on above: Order Comment: Speci men Type: TISSUE SPECIMEN Ordering Facility: [facility] Address: ATTN: LABORATORY, [place] [address] Performed By: #### R LLYMPRFLX #### [facility] CLIA [id number] [address] [place] [address] OF [place] FINAL PERFORMING LAB Normal [facility] Comment on above: Order Comment: Speci men Type: TISSUE SPECIMEN Ordering Facility: [facility] Address: ATTN: LABORATORY, [place] [address] Result Comment: Diag nostic interpretation performed at [facility], [address] [place] [address] CLIA# [id number] Hazard[employer] Materials Analyst: Oumar Wilder M.D. Performed By: #### R LLYMPRFLX #### [facility] CLIA [id number] [address] [place] [address] OF [facility] FLOW CYTOMETRY RESULTS Normal [facility] Comment on above: Order Comment: Speci men Type: TISSUE SPECIMEN Ordering Facility: [facility] Address: ATTN: LABORATORY, [place] [address] Result Comment: Spec imen type: Nasopharynx biopsy. [...] 2024 Performed By: #### R LLYMPRFLX #### [facility] CLIA [id number] [address] [place] [address] GROSS DESCRIPTION A. Nasopharynx Normal [facility] Comment on above: Order Comment: Speci men Type: TISSUE SPECIMEN Ordering Facility: [facility] Address: ATTN: [place] [address] Result Comment: RECE IVED ONE PIECE OF TISSUE MEASURING 0.2 CM X 0.2 CM X 0.1 CM IN RPMI Performed By: #### R LLYMPRFLX #### [facility] IA [id number] [address] [place] [address] INTERPRETATION Normal [facility] Comment on above: Order Comment: Speci men Type: TISSUE SPECIMEN Ordering Facility: [facility] Address: ATTN: [place] [address] Result Comment: Ther e is no immunophenotypic evidence of involvement by a T-cell lymphoproliferative disorder in this limited sample. Correlation with the histopathologic and clinical findings is suggested. at 1318 EDT Performed By: #### R LLYMPRFLX #### [facility] IA [id number] [address] [place] [address] [place] XR C-SPINE 4 VIEWSon 024 XR C-SPINE 4 VIEWS EXAMINATION: XR C-SP INE 4 VIEWS 07/19/2023 12:32 PM CLINICAL HISTORY: athritis ASSOCIATED DIAGNOSIS: Arthritis ORDERING PROVIDER: ROSARIO TREVIZO TECHNOLOGISTS NOTE: COMPARISON: None FINDINGS: On the lateral [...] IMPRESSION: Unremarkable study. MACRO: None Normal [facility] [employer] [facility] XR Cervical spine 4 Viewson 07-19-2023 [...] is normal. IMPRESSION: Unremarkable study. MACRO: None [facility] (narrative) [employer] XR Cervical spine 4 ViewsOrd ered By: Gil Craig on 07-19-2023 [employer] Work Phone: XR CHEST PA+LAT 2 VIEWSon XR CHEST PA+LAT 2 VIEWS EXAMINATION: XR CHEST PA+LAT 2 VIEWS 07/16/2023 09:20 AM CLINICAL HISTORY: Dyspnea ASSOCIATED DIAGNOSIS: Dyspnea, unspecified type ORDERING PROVIDER: ROSARIO SYLVESTER NOTE: COMPARISON: None FINDINGS: Cardiomediastinal silhouette: Normal heart size. Trachea: Midline. Lungs and pleura: No pulmonary consolidation, pleural effusion or pneumothorax. Osseous structures: Unremarkable. Included upper abdomen: Endovascular coils in the region of the splenic artery. Right upper quadrant surgical clips, compatible with prior cholecystectomy. IMPRESSION: No acute cardiopulmonary findings. MACRO: None Normal [facility] XR Chest PA and Lateralon EXAMINATION: [...] IMPRESSION: No acute cardiopulmonary findings. MACRO: None [facility] Radiology Study observation (narrative) [facility] XR Chest PA and LateralOrder ed By: Tung Garvey on 07-16-2023 [facility] Work Phone: Auth for Release of Medical Recordson 05-04-2023 Auth for Release of Medical Records [id number] IFF Normal [facility] Grp A Strp PCRon 03-29-2023 Group A Strep Negative Normal [facility] Comment on above: Result Comment: Test ing performed using DNA amplification. Performed By: #### 1 [id number] ####[facility] [id number] [place] [address] Grp A Strp Intrl Ctrl Pass Normal [facility] Comment on above: Performed By: #### 1 [id number] ####[facility] [id number] [place] [address] Ambulatory Visit Summaryon 1 Ambulatory Visit Summary CHRISTIANO SANTACRUZ :1995 Visit Date:03/28/2023 Ambulatory Visit Instructions Your [...] with cough Duration: 7 Days Pickup at [facility]/pharmacy #6173 New predniSONE (predniSONE 20 mg Tab) 1 Tablets By Mouth Every day Viral URI with cough Duration: 7 Days Pickup at [facility]/pharmacy #6173 Unchanged acetaminophen 1,000 Milligram By Mouth 3 times a day as needed for as needed for pain Unchanged sertraline By Mouth Every day Unchanged trazodone (traZODONE 100 mg Tab) Pharmacy Information [facility]/pharmacy #[id number]: [address] [place], [place] [id number] [phone] Allergies Dilaudid (Hives) morphine (anaphylaxis) oxyCODONE (Nausea) [...] longer receiving treatment for. Cholelithiasis Sleep apnea Rob [facility] Medicine Office/Clini c Noteon 03-28-2023 Family Medicine [...] agree with above documented HPI by medical lab assistant. Portions of this record may have been created with voice recognition artificial intelligence software, specifically [employer], [employer] and or [employer]. Substitutions may have occurred due to the inherent limitations of voice recognition and artificial intelligence software. Patient is a 27-year-old male who presents to [facility] care, with sinus headache, body aches, sinus [...] at this time. 27-year-old male presented to [facility] care, for viral upper respiratory infection and a nonproductive cough, patient appeared ill but not septic, no respiratory disorders noted, no difficulty swallowing. Patient was given a prescription for prednisone and Tessalon Perles, work excuse note, instructed to take dpfs-hcg-vjlhpob ibuprofen Tylenol as needed for headaches, body aches, fevers. Drink plenty water stay hydrated. Patient agree with plan. 1. Viral URI with cough (J06.9: Acute upper respiratory infection, unspecified) See above Ordered: benzonatate, 100 mg = 1 cap(s), Oral, TID, X 7 day(s), # 21 cap(s), Refills(s) 0, Pharmacy: [facility]/pharmacy #6173, 177, cm, 03/28/23 10:47:00 EDT, Height/Length Dosing, 75.8, kg, 03/28/23 10:47:00 EDT, Weight Dosing predniSONE, 20 mg = 1 tab(s), Oral, Daily, X 7 day(s), # 7 tab(s), Refills(s) 0, Pharmacy: [facility]/pharmacy #6173, 177, cm, 03/28/23 10:47:00 EDT, Height/Length Dosing, 75.8, kg, 03/28/23 10:47:00 EDT, Weight Dosing Group A Strep by PCR Rapid COVID POC 46537 Rapid Strep POC 46169 Follow-up With When Contact Information RIGOBERTO CHURCH, LELIA Palmer, MAXWELL [address] [place] [address]- Additional Instructions: Patient Education Viral Respiratory Infection, Kqyz-Oi-Ptgs Problem List/Past Medical History Ongoing Anxiety Cervical [...] apnea Procedure/Surgi (more content not included)... Normal [facility] Comment on above: Result Comment: Elec [...] home: Managing pain and congestion ? Take zdfx-qli-rsyoajm and prescription medicines only as told by [...] cannot use soap and water, use hand organizational effectiveness consultant. ? Cover your mouth when you cough. [...] provider. Document Revised: 09/08/2021 Document Reviewed: 09/08/2021 [employer] Patient Education ? 2022 [employer]. [facility] Patient Letter FTon 2022 Patient Letter [facility] [place]Inserted Image. Claudia ble to display) [address], [facility] [place] [address] March 28, 2023 CHRISTIANO SANTACRUZ [address] [place] [address] : 1995 Please excuse CHRISTIANO SANTACRUZ from work . Date and/or Time of Absence: From: 03/28/23 May return to work on: 03/30/23 Restrictions: None Comments: Please excuse due to an acute illness. Provider Signature: Mable Stephenson PA-C [facility] [address] [address] [facility] Referrals Officeon 3 Referrals Office [id number] 221 [id number] D:127 [facility] Coding Summary.on 08-07-2022 Coding Summary. [id number] Gh0 bWw+PGhlYWQ+FI2ANKAeL73 clIMgyF7IR8vUIX2MSPZQOB UJWO0TLL9apPZ6ETruP2Ytl iAv FttakTJbHJ15ZMe5YVQ7kZz aWPdzmD4qcJRiT3h8ArTdFF 96vO55MRhmKHWbYbB8QmImg jsgbWFy L3ovMqJixUShJzs+PHRhYmx lIHdpZHRoPScxMDAlJyBzdH azHU4rQi8tSWQuRKEejDdya HNlOiBj d8yeDFFqCJbrNN0dsBbeA2U lsAW4TBPct9b7Qz10cJY+PH ZuDLG6fNvxKJvay075KiPtb 5nkKEP6 uQWiHZqkMFT3X19hu7O5ILL aEBOtXHV3eTP2xQ5ssFvcjj anY3UwtWKlEvU4PKM1pKPce D9pvHpk fosidL1yMqd+Z73GJX4SEHH MQP4JMoa7Q0KlZqqmoZI+PC 52ACBxRG77uWOfwBXgk0rmk Sk6IyJe UNUyCOC7oIrdCKzbs3KmPUW rL27hvAOsu2K4VBEimUwqcT OgXpDtmEH6lX6nANudjycqo 2hvdzsn Fytot7hntj34yW33K36zFUg rJDFsVRR8HAZgULMsyVogxa 7qkP5mWc2+FQber0ngk2qmh Xi4VuUm KRQsxdDkyGxmHNH0c0SyDk7 6I9MojRxro5AsPuy5xb75jI Iqw4J6pYT9EWotEACvuR2vY WxlZnQ6 LLEwLeJcgH97tOEvECznGl0 wbHxfyStiQZ5hJCHlobvlEO LghB3aKISmnLSygXgdWH0oX TBpbjtm r869HpAhDVB8AKHbpRBdA5K lcZ6kWaDyXGMdJVCsI4SmyT KbNOndU011MHlyJaH3DFNwo oOxF7Cr PVTygMrrFxS3y9I3Ee0Uq8A fyllfZGG2CQfaBBPqElVoVh CsBiY5L2MaOud7ARPjnEbbI S9vF0Vd HZCxwdtpswqqtAE8JLKaDEO lmW99iMIwZWkrWu0ry0S5v7 90ZSFkZVExqF59Uf8ggQssT TBwdCBU cE3umxamo9ftgcjsDlUrQEW eLNp5SMv9WXDpxEpqQoAsJE W0BqM8GMG3qJGbrV7zrSjqb uizfK8y Oyc+F44sjI6rHKK5HFL7ipw uEMLianPeND70HR86W2CaCt wvdGFibGU+PGRpdiBzdHlsZ I1nVpJd b1smi2HfATjkS4AbUZLnFLg bMtm3XLBuODB4lKH9jJ1pEL OnMAbra7T3nUQ8O1ApqxFnk u0nu2ei IEQpYNmyM58nwZIko9F6HQX xfFI2DEXinLyxWvLalV53Ko c+SWHfcKixs0BhXlktg8lhu 8ioyDu9 FqIjEWFrirTbaJbmIYZ0o0T jKj68I80xQLvbMPMtSXElEI NiCYHhoShfrd0rhV0xVa7+P GNvbCB3 dSA3nT6tQWAlObY2QLgiA48 9KdTesEEfXlrpk5oln7xxfF f4CgZjPTCcwcSkbFbbTAV2e 2YjKd67 F57dXUtcIPHlUZWrMDPxOEE tyKbwvt4aaK0mLk9+PC9jb2 nagq30lH25kAT+WCUzHGM8k WxlPSdw QJQatE8vHFjvGuW3XTCiBrO bbD15mOMrWQryZi0icPevbV osQF9bOCKqbvihb814JbNzk 2xkIDEw nFUaVVgwGYI6C39ug3L6AJQ gXFWdBIV7oZE2vH2nkFfgwk ogbGVmdDsgdmVydGljYWwtY GthA370 IHRvcDsnPlBhdGllbnQgTmF mAHk5I3YkMzn2UOCglJneLR 9dfWCcNTkvUj2csFlppTkfW G2gOJZj ldcib790UnFol0mvQOJrdDU aQKuiUKI8E91nm6Q9ARRvLL GvUVT8zHQ4wE7yuFqukpgzy GVmdDsg blBmwTmbVJhbXXoaB316SHN raQjjAxLagiCwDFKlyNI3RA 05VL55hPOpy4Y3gUI2P3MpJ GRpbmct umnuiLO8EBAeHALasY32Uj9 arDopSe2wNHPuOUR2UPOogT FwP1RthN7pUhEeUFAhRLBaI 3RleHQt URclD663SOdyLfN8ZYEcglB vJ9WaYHQtoIiiUeN0v9W7Cs 1XN1F9OV26EV83rYWpf4S8d FM3K3Bt TVPsrtcgatjxuBF3LATcJDF uuO77Vz7nqHwpEo8mRRCfSE E0WODroTZdC0EyvM3fUdShS DAwMDAw I5MmnREnFXnrR543MVzqKyZ 4ENCqhhGlL9GcFAYhxQdlWd U1c2G0Tx8DCJo9GM21MB83t VMnu9S0 vVA9F1DdLLSfpgvysepzhRY 2CJWxLRCytI49Bh6vxBckId 8cMRLgXSU6XTJwwRBaA8Xsn F6pYlBn EOCqOZLiI4VjxVOcYYnnQ13 7DIqrSlA1WLOnrbAwG8YaXM TrgAebImA6q8Y9Xe7YBYCnS X67RYU3 bLY6UC66NO83P9XfLuiqjPN ibGU+PHRhYmxlIHdpZHRoPS mnPOZaLtJntLlsRW1iWw3uA GVyLWNv rLcwsJEbOmVze9uyAVHmPCh dNO8qbPjkB0WrmON8PIWsf5 g3Nr48E41uR5BoqHX+PGNvb ZI1zXB1 zB4sRaIqSuB2EMrsD107WlG tvJCiGhhix0ebc3mzdQy7Bt R3HTZqjwMxdGywXHO9c0MbJ e75R37c IHdpZHRoPSIxNSUiIHZhbGl ahc1xlG0pSu3+LKBgqNK4nY Z4oE8qYqKuEpL1UVclM316W nRvcCIv Naylr5sru9pifQt7ZtBhCGV fvhOjzWijVNF7z0EeHa72C5 XeeFnqp4FjRzw1mr89kLWpn 7P0mET8 A3SfTPXazyoxvVZvnVdlAE8 eECZupdhdYJDmvO6bSEGsS9 m0IcEyMoJ5ILwqK2AulwL9F DEwcHQg OBrtCHY6W46bv7T9QWVqMBM iJPO7aIZ9bH6keVisjdmpoP VmdDsgdmVydGljYWwtYWxpZ 246IHRv rYzeYGRyxE9tWSOcwPYraDv kMW3eSCOhuzdeAztKUgowEO eJMrJPOU85GA34eXRuk9H0r MU4M1Wg RXDwpudjzetlfYI3JYQaKMG mwC08vVKdRMatGy4yr7X8c5 97CCJfNXRpwB91Ts0soGfyM TBwdCBU nC6ibnkls5piwnxpRhZyTAJ oFHp3JEv9SIDkvEbzZhAtBC U2NnK6YHM3pSNpbA8evSxlu zncxS3h Oyc+AGAvZaGyPCg2HBidjOQ +UHMySVX2rYacAEclYIJnmD 2jIJAtF3r0XlMeLfL5TJwmD 3BhZGRp lnqhRo56gS7gMhMlWsU4SWm sH9OipyO8ZABmdQQzRKdoVH D7A34la6A7YSTaSPZbAMP4p OW6jO7o bGlnbjogbGVmdDsgdmVydGl aVPenLPvgK674GNKvbThwNh J8CXbmLSGrFE73OQ11yRQbb 0E4xJM1 Y2HaUSQwrunxquxftSH0LSB mWAIfjR64oLXtKHnuGc0kh4 O1m734HFVxPWWyzC48Qv1gx DogMTBw lJCUxQ9rceebn2lzbeouVgC uYXHvMWw9QFg2APYsgLwvUa UtMQS0SuM0ZZW0aQWacC3qr Glnbjog qK7aYmr+TWFsZTwvdGQ+PHR oFKY2jFiuQAnfHQIewI5jFC MdZ4j4WtLiViM7TKavC2KiL GRpbmct Nk66jV9zQlFfMrH5GBngR9B ebbS4PXCiqKVdMJfiIVV4N4 4ue8H3ZGKtIJIoIQK7fNN6y B1hdZbd bjogbGVmdDsgdmVydGljYWw fPLloK781PDMfnMtnGiIzpD 4gTWFuYWdlbWVudDwvdGQ+P X87ed46 D1WpJnviVjl3XLMoUVE3tFR 4iG6vNFYgOLwif5U5yUW5G9 WewsAgct8qr8coKQSoGFheZ 29sbGFw x9Q8AADuxMB3ICOykUsxDiO trA20Fxj+QYFchHrgg5MxGn txn3oko9chrBq6NcXgFQFnu mFsaWdu TRT8s8JxHs16C77cCIzwURV dFLHpMGSvOKUmlDlcwh8czY 9wIi8+LDVycGK1uYQ6oD6sZ jAlIiB2 AVuxQ905HmPxfYPeScmys7q sy4parMm2EvNuZZKbmvLbzX tdIXU6e3MoPp69M1CgkYcst 0TkLdz6 jq37wTWjg5E5hES0N6UbCVV vhxtiaPKavLtyFS0pXSHbwt shRRHfmF3sSHIbH3s8VlIgQ lG4EBdz R9VvnaV0ZQGuzTLcOAFkmQM BbL1wlaxml1tbwbmcArCcUP VrCJi7KMx7MKJoyDnmOgHhR KE4SpC4 PPN9pDRjtU2ooGqmlcfmvN6 wOyc+JXc7e9oxxRXmAF1qvH D7LX79AD91cJOsx1U7vRJ6J 3BhZGRp fhabvtqqaDX9YNIwINCsdM0 1Zg0gvFosXp8wGDZmWAM0VJ KfgQRvW3YpbJ5kAcLtORKbE XOdB8Xy uVEyHNaeC728LOidBzY1WFX eujAjH4GbOBNwuDktHpN3k2 W3Fv1MPO24OF88NP18oNZkx 8X1hAC9 C1TfBNZukmeaeiwmlXK3PGQ qKDPwpE63En0jiErcIz8uIT SvLCN6XLUhtAFnO3SbnT7zS iAjMDAw SKViW6LbzUDiKLtmE881MPk gFtP9QWVrbbBmU1JhYGKwqC ccJdX7k6O2Xq3TNf24QD84R F30cXYs x1J3iGV9I3PlRRQulrzcppf ywCL7SIQkLCNvyL01Tj4lxN ofDn6fNEYfIOS3NRMerWShZ 2JncY4e LdMqJFSzHZInC8OzzOMvSYo pP628GZpyAnL5ZNRtemXiO4 VfUGOwtFthKyV2c4B5Ib1MM Xllcjo8 S0BqAmybiZA+NH54PKIfSL3 2lXIbuJUqm2okyQy4QoUdZQ KrMEN4vHkdKRvtc8ZlDZNtD 29sbGFw c2U6 (more content not included)... Normal [facility] Consent for Treatmenton 07-19 Consent for Treatment [id number]#1.00 CD:127 Normal [facility] Consultation Noteon 08-04-19 Consultation Note Patient: CHRISTIANO SANTACRUZ Age: 26 years Sex: Male : 1995 [...] All Problems Former smoker / SNOMED CT 93500787 / Confirmed BMI 23.0-23.9, adult / SNOMED CT 5531670128 / Confirmed Family history unknown / SNOMED CT 3281592943 / Confirmed Screening for cardiovascular condition / SNOMED CT 480239531 / Confirmed Enlarged tonsils / SNOMED CT 771805617 / Confirmed Difficulty swallowing / SNOMED CT 18746297 / Confirmed Constipation / SNOMED CT 60194938 / Confirmed after GB removed 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 / Confirmed Non-smoker / SNOMED CT 01129416 / Confirmed Stomal ulcer / SNOMED CT 2659619798 / Confirmed Splenomegaly / SNOMED CT 53995871 / Confirmed Hospital discharge follow-up / SNOMED CT 0717364131 / Confirmed Hereditary spherocytosis / SNOMED CT 43571789 / Confirmed Testicle lump / SNOMED CT 096415837 / Confirmed Cervical radiculopathy / SNOMED CT 914145264 / Confirmed Cervical spondylosis / SNOMED CT 1897983254 / Confirmed Muscle spasms of neck / SNOMED CT 1242929589 / Confirmed Insomnia / SNOMED CT 094751829 / Confirmed Medial epicondylitis / SNOMED CT 93560860 / Confirmed Anxiety / SNOMED CT 62802783 / Confirmed PTSD (post-traumatic stress disorder) / SNOMED CT 90824735 / Confirmed Hearing deficit / SNOMED CT 38410916 / Confirmed Lower back pain / SNOMED CT 333206989 / Confirmed History of neck pain / SNOMED CT 5187440177 / Confirmed Resolved: Cholelithiasis / SNOMED CT 470949928 2009 Resolved: Sleep apnea / SNOMED CT 051856579 Canceled: Well adult exam / SNOMED CT 851691378 Canceled: Sore throat / SNOMED CT 201660280 Canceled: Pain in the abdomen / SNOMED CT 08927819 Canceled: Fever / SNOMED CT 4917507220 Objective Vital Signs 08/04/2022 15:00 EST Peripheral [...] of the upper extremities Integumentary: Warm, Dry, Ai. Neurologic: Alert, Oriented. Psychiatric: Cooperative, Appropriate mood [...] an image (more content not included)... Normal [facility] Comment on above: Result Comment: Elec tronically Signed By: Leah Myrick PA-C\.br\Date and Time Signed: 08/04/22 15:14 EST\.br\Electronically Co-Signed By: Sen Burgess MD\.br\Date and Time Co-Signed: 08/08/22 12:31 EST Office/Clinic Note-Physician on 08-04-2022 Office/Clinic Note-Physician [id number]#1.00 CD:127 Normal [facility] Patient Correspondenceon Patient Correspondence [id number]#1.00 CD:127 Normal [facility] Patient History Officeon Patient History Office [id number]#1.00 CD:127 Normal [facility] Coding Summary.on 08-03-2022 Coding Summary. CD:[id number]:[id number] Gh0 bWw+PGhlYWQ+DJ1XNWJhL63 wcKHizL3PN0vMKE2JPIGGUD IVPL0IXE1nkLB6EAziR3Cqp iAv OvvgyQTfSD27MNh2XRD7dYb uTBjmlR2bxJDlW7p1SeHmTE 30lU73AOjiIKSyPeA9OzQdv jsgbWFy U3czPtFphQGvFez+PHRhYmx lIHdpZHRoPScxMDAlJyBzdH pgJM4bXa8uSTQkLGMdlFnyn HNlOiBj l7ghNTYtXCtiJU5siVwrY7T lhTE2YLJor0b6Mr08aDN+PH FaALB1lZwxLRipc759OeFbs 3rfLQT4 bHRdGUlvUFN6Q07kn4Y1XMZ jHIBzRGD2lPC4nM5paHnxvp rmE4QjzZXqYqT3UUG8fGJqo L0osWyv iwgebC6tVyd+H06DOB6EYQD WOF0QEfv5Z6ApIeedlWM+PC 02SHQuSN55mMLhpSMtj2onx Nr6VgLz BSLqDPZ6gEocJHceh3VeWQU tH28iqAUpm4U0FAOvwFntrT OzHqKeyMU0oD9gDTyjjxoei 2hvdzsn Saemr6nzig83nH48P18gKSo pCQGzLJC0NTEiBSQtbPdqsc 7gbX2aHa8+GVtqf9igu6rkq Zt0WjGk AAFxzrAgcGkeHPE6o5MaFc8 7F8FysPzno1RhGzn8mo19cY Nld8T9iHF2LEzjVDQheG6fB WxlZnQ6 BJJyAiVamX45bUAvDFrlGe9 btVxpvVwzZV4hMEIhkcfwTC KtkP3oWRGmwHRdpZziWZ2sV TBpbjtm t603CfAuGJQ5QXMswDSyM3P ysP4yUpQpUHFbJJTbQ0PzuV QkZQekX668VJfsWiP5ULRli cDuY6Ko BQNvdOfaPqH0s7W0Qv9Vm1V pojsoWAH0BOyoQUFpQrK8Ru AtYsI9E0PmVig6PLHslFyiX J1eZ4Rm JWVnvcuglwjjcME2ZSMpCCG jdC31gHJjHYrnHq2xn7X4w1 51UNGjCGUdcY42Bq8bhQshH TBwdCBU hK5exfahg1geyrtqJyBgQUK tEHn3RYu2MLErmQgyVlAyJA Y0HiC7VZV4rHWiyM5gpGatc ggeyE0h Oyc+R92aaY2dTYF9HUR8tmt fHFJuqsPrWX56KQ87V6UySj wvdGFibGU+PGRpdiBzdHlsZ T8nByGj w5qfg7NxAXswW3IzJPJySFj yOeh9VRVgCKM0eVN1lP4nNP VtHFxov4Y6dXG2G6XuhmLwe p8ej4tp DMBnDWpoT72nyIWxb4V4PTV luFY5GGTnbRhjMaXakK44Ff c+HGHxnLytr5NvMlpjd0tmr 2frdEn6 QsXjUHJvehDapAjkDXS5x8C kYk83M53lLIojNBEnMYWjLP WqVKMmyCmhdz4seF2bWq2+P GNvbCB3 pAW6yK9iHMVqWwL2HXipN26 8DhLmwTMcJgfvh9pbh9fhvI t4VgVjDDLrfqZiuWueWOP9r 5AtNc43 P60lWKhwLSGeIKCmNYQcTTK ecTybeb9dwB2gMp4+PC9jb2 cgpd50sN98uXE+AWKiRZI0h WxlPSdw NMNkiV6nRUwbRvL2PCJoLjE fhU84pWQoYGgeWh7hdAusmA dvWW8xQUZvzudve636JiXbe 2xkIDEw xWFlMBvhDGT0A41di9O4MGE yNAXzMHC7eQD3vC2vlDnolz ogbGVmdDsgdmVydGljYWwtY BxyF435 IHRvcDsnPlBhdGllbnQgTmF nVXx8F9PdBzo0MIVeyEbiNO 7emYQeVQjjRb5zzXquqLvlS O7cIRSd djjnz913AjPaw6wzTSCazYF eANlyQWS3W87xs6Q8OFSfDW QoFXQ1vLE7wF6qkDaijuvwy GVmdDsg fzOtuVcnWOqwJDlbE963WOT hjQryPcSxrzOeHPUdlDJ1JT 90UR68lTTyy0E2vSL8E9LrF GRpbmct ebkisHH7DZLrDUDpmV59Ku3 wzSawEr8xVPAhBKQ6XSEwmJ RqG1LbaG4hZbBvVKHtHEThE 3RleHQt ILipU378WNbgOkE8PVOrfuQ mS5LgWDMeaJixClI1f7P3Pe 4NR4U6YB04GE75lYHfj3E4u YQ8D7Zg GJGbqxuvegrwiZY3UYGqZBH gkN75Xo9zzEhfIq3eTHCjAV F2WRDblFEwT0YyzU4kWxBkK DAwMDAw L9MvmFJrVOvaE041YKwzScB 0ELAzkvVuQ6TdLWHlsBggTg S3z3N9Cm8MZBg4ZK90QU72e NLmw9L6 fIH3C4SsCUBzwqkyrftfzSL 0WMKkTSErbF39Fg9qwSwkVj 0jCRRjSHM5HVQhnQVzZ9Vwu T8bKbIi WSYcRPSiC8OyjNLuDSmpH84 6RFpjCeH9SPAbpmZmX4AjJU BhaUryUnK9t6D2Ej0QUSUlX R70DUL2 oRE0QW73PV73K0JdDlrrlIQ ibGU+PHRhYmxlIHdpZHRoPS ajZVTbFaNhuIkpVD6gCo1zR GVyLWNv qGtriSImUuZxm3eaRBVfNZq fCR1rcFgwJ3VbgBG3DRKbb8 v2Vc20C57jL9GviTF+PGNvb PX0zNR3 oF6iPmVaLoA1VNvwF138RtL yhXReUbymh1tbh8ubpBz8Nr O1BBJasoAtqOefPPY6o2SwH x38G30c IHdpZHRoPSIxNSUiIHZhbGl ife2yaS7lLx8+NBOuvAB3oK I6pH1fFiNpRiA6BXhrM634A nRvcCIv Xpsus1cwp9cdhDt4LoUcHRO uqfLhvVzfPVX4d9OqSk01P9 IejSlrr0OtWcd7mu21wDYtc 6D1zUV1 Y1TvXDIckjvqbLZdhMdhAK7 oWXEowzwyPPYqpT6wTSIoS8 b9VkDcOcU7PRnuJ0YhxqJ8X DEwcHQg IXrvKOS4Q94iy2B7ONMbXDV cSFJ9iPX6bE6ebHwrzlmorG VmdDsgdmVydGljYWwtYWxpZ 246IHRv bWznZIJrqM4qHVGhcXUclYp dAW2hUHWfrjfqGmgCJlpnVM wYDrTNVA73TO55kLUle7J9t IR8R8Vt NKXfxmxfgaftdTP5CLIlEDK ofA70xAOcBNlxMs6ru9Q8o9 02GRNdYYGmaQ88Mn4biXcwX TBwdCBU pI2xruhoz6qpddqqAfVzOVN vIJi0UZe1KXKnwWeqIrGhCN S4HdE7VDZ7oWCcsF1bgUbsb hfdaU3l Oyc+EOTuMrJtUBx9XFguxTT +HMUrYHZ3nXayJStkCQEegK 2nYRSbN5n1GkFsLcU0CLahH 3BhZGRp dsvvIr74jB5tRjMmMxI8YZm qY4OdpfL0ADXifPXxBXvoLO A8F98xr6D8ETAjVSKcUSY4g JH2pM0z bGlnbjogbGVmdDsgdmVydGl tXKtpAKdvJ466GPPbvGlmVs M8JMqoCMTqCC02QN90qQMky 8I6rXK4 J8HwCEHfzgehtrhnkQN3SYV aZTBbgL54rVMcRFjfCf1yu5 B6t621RIAdRIYugT23Hz3ll DogMTBw bXVAfL1ddinde1fmhzvoTdY oUKFmACy4NAu2TQMyiCflLt PmVVI4PvK6EDG7vCBotL8pk Glnbjog xJ3qHrc+TWFsZTwvdGQ+PHR pSAP3mLvbADygLGYfiY2nPW LfY6d9FwGdQqA4DUxjF9QeL GRpbmct Ez25tW9eWyMdVxR4JDmjH2W yivW2DLEnaPFaXJymWJX2T0 1lh0T6JEBsETLbMMX4dJC7b A3yiXkf bjogbGVmdDsgdmVydGljYWw mRGprZ642RZPgyDjoDs88qV HixDimnhR4I5JdFyuyaAH+P O66FPEf FE70gIMhmHYrv3aaqQw2HeB tAUReSMT4qFqnVTsqr6KlKD PxG64drGLrq9H4PSJpmJxxa HNlOyBl eRL8vR5zYNvbbfhqa4dkkxu lVzfmg0fvfo58rS86W08kXX dpZHRoPSIzMCUiIHZhbGlnb z8mfN8u Ii8+OJYosGU4eCK2wN7iJiN vRzK2OLjhZ932DfZixMNvBt jol2ccd8fgdAg7ZmWdSEXbz mFsaWdu NID2p9HlUz31B58bPDgvUMG cTZGcPLDqRXHdaPbknj1cjJ 9wIi8+YY3af3wrxp67eR70s HI+PHRk BDH0nNunJGfdZSSouJ2xERc fYcS0ADHqJhUckI83nAVeGL xiUi5mrEcziLojAO3mMWVjp tyta659 JjDix3ixQZIlbNNsXPprLHL 8J57np0V8FBHiUVYxPSQ5iK W2zS0ktDhotnynxLAhuNsix mVydGlj WHajMYvoK764STJtpCbaQvT obIKyR7bpkcNANO9eEorwwD Q+LPXpXFH8nGbxIKdlXJFow P9rYVZo L1v5PtRbJvS0ICpkZ9MeefI 3YRDylOEvBGTbzRXFtW6npu emn8msroxoPsPoOCBsEKy9H Fy6EQUl eVsbDrItJPI8OwH3EEQ5pVA opF8whJagoowluZ6nSzx+Rk lOOjwvdGQ+VMOoYAV3xGufZ SdwYWRk cG5pIMXkH9m3ZzGxMtN9PGq mF1FavkF7LOYodSXgZAIxlP GRkK0rbxtnd7wqosnyXpJtK DAwMDt0 LNj9JBTblZnzQfGcEIU4HfF 4BEM9gGJagU5inUgwvpfhyD 9wOyc+TVJOOjwvdGQ+PHRkI JV6vLkt SAzgBCJpmX5jNQSnB2u0YpJ pUjR9LFbzC6KhjzJ6MPGgvF UgPONczSVKvE6fzxrig6bgt jogIzAw SMRzQQs6EFh5BZYqpGieNzI gLEQ1VnL3LLO0hLXyzC0kfU figkuanC0eBxd+YQV7ZON4J F25CQ68 B1PvUdxakJVqbQF+PHRhYmx lIHdpZHRoPScxMDAlJyBzdH irDD5uUi7eVOMuORTdwEbdl HNlOiBj b2xs (more content not included)... Normal [facility] XR Shoulder Complete Righton 07-29-2022 XR [...] Almaraz MD Transcribed by: MARY Technologist: JASON [facility] Consent for Treatmenton 07-19 Consent for Treatment [id number]#1.00C D:127 [facility] Physician Orderon 07-28-2022 Physician Order [id number]#1.00C D:127 [facility] Physician Orderon 07-26-2022 Physician Order [id number]#1.00 CD:127 [facility] Insurance Correspondence Off iceon 07-21-2022 Insurance Correspondence Office [id number]#2.00C D:127 [facility] Coding Summary.on 07-07-2022 Coding Summary. CD:[id number]:3435473N Gh0 bWw+PGhlYWQ+JJ3GLGYoQ23 fsBPafL1JT4qDJH0KGBADAQ EYDP6TUQ0mjZU2SXdcJ6Apb iAv MyczzOZfMU35NCs6VTA9jZd zMVmtmJ1mmVGwT2j1IoHuMA 58iM15NPgoERYdOzO7TcSfy jsgbWFy Q0gkDsVubBBfSyc+PHRhYmx lIHdpZHRoPScxMDAlJyBzdH phDO0pGa6aGVBfSJFzgShtk HNlOiBj a9gwBBKhVPzjCM6auLetD9U ahER2UGQaj2y2Xw96yOL+PH OyLWV4yKfaUMqrv707EeFdt 8htCHY1 rPPfNQbgBVZ7I54fd6C4WLO xZHQlXOZ9nEM0dB6bzYqvap bwK1NwyXBvDoB8NWX0dRZkq O8ruRti osywkN8pSag+Q48VRF8ZGVM NFM3MXit3Z9JmGhtfeAF+PC 29RBOzZF09wFTcxBLyk5pcl Cv8DbIs OMViZSX1eNiySYbmx9KfXIJ vX16wzJObp5B2VZCoxQakvH ZySlFgkKR7dN6jRShpwdpxu 2hvdzsn Uifbq2hwpb32xQ91N33jBBs hNZSnBJK7JWNqBHQxvVkiwo 1zlS3hMv2+UXoja3aak8hca Pv7GjIh FCQtxuKstPlmIKN1a1HnXt6 8O6DryBarg1HgMxc3dt86vQ Isr4D3rAE2ZUseDWBljR1iM WxlZnQ6 JMRcJsTypS10tIMfDQvvLg5 jjMpmxKxvWK2iMDNyokeoEH YjjS9aDOImgTHthOniJS0jW TBpbjtm z117OkJdHWE1QWOrgUAwA5M tlK4bHvAmPUDyOCKdW4GldI JzVSjlI029YTgmNpL0VZLns wHvZ0Qg XFQgnLzjYbT0f7B6Ye5Qq9P rguwpLTB8HPboAMTjGzOmIc TlIgJ5B1NlPpc3UUUooCpmJ R0iI9Sr OYExwmdlfoiodJP1BVIcEES zuM69rOLoBDqiLs0ew5L0p8 03SKWnOLIhnK56Xm4avSvzC TBwdCBU eA1yckpxa7ypsiwmKkTeJXI eHBj2HUh7DTQnfVabIqYeVE G2TfZ3BKN0gNXntI7owEwmf rmvkZ3j Oyc+V46mfG1hXHB3DGF2aex hFBEqaqUmWN56LO59D6CiXa wvdGFibGU+PGRpdiBzdHlsZ U6jCbOc l1qzu7LfGYhlB5CiCNQpFMo tAzj1BMGpXOK9lDW8sK6zIY VaZOlih4D4rST3P8MrxzGyq w5dz5fl AXElLWabT33dvUSiy2K8OVE cwYP5YUMbwSvkFuTzdH96Xk c+XGPmaKyae3CmNjijs0wkr 6brrDu9 NaBjEIXhngWyvHloAPQ0g1A wTf32P08jNWjnOYXgXNRgIA ErWJQmgLwomk2rjW2sJc5+P GNvbCB3 cZR5bX6uSLFeXnY2BLhfH68 8AwLqrJPtJjeja4fbl0pnhM t6YpJxNWDjheUxpBimKAM1n 0TmTo77 D30kERchXROoFWTsTRBfDUZ tmEvicw4jiB4xMl3+PC9jb2 ewjx13yD53qKL+YSQaPUD0v WxlPSdw XRGuiX4sDPiyZlB8SDHbMhZ bnC04kRGuQEcuJs1awForbM kvDM6xSVNqjaudz555KeXww 2xkIDEw rRVhABokRRR4Y41di4D5KRT cNCIxNER1tEI8sY2vbKtscd ogbGVmdDsgdmVydGljYWwtY AjaR524 IHRvcDsnPlBhdGllbnQgTmF hWPm8J1LcXrj4TVKgaOylLN 4dzDAjLMqcXb1zxPhryOtiL U1eWZYl wixio383OvDru0ukFAAcsQY rDLjfGMI8X86ol3P4TGTrJT BlCCU6iIX1mG4whVyxzqjyo GVmdDsg mfFmfTpbZEqlDInrC971AEQ lxQyfJgSmybNeANJvnXT5SK 35XX18hUXcs0O9eJC3W5LzJ GRpbmct wxhakQG8WNUoTOJrsP54Yi7 uuNygLh8rTRJlSUD0KDUisX ZnS7NpeC6vIlSwMMPqFRLzC 3RleHQt SVriG028IMgnKhG0UVLywaS wO5GuOUUkeIwbBvS0t4W6Mv 3QC9Q1UM32KP73eJEoe9M8g OR3I6Lc ISFpckobptlhbBY3ATDxIFW tuD48Zs0bhBwlYh7mYQWrUG N4RXSqsWOyM5YpuY3zKaQiG DAwMDAw E7IxlRFvANamO197AGnsShZ 3CYZmeqUoA4RtIFCvjNwbQl V1o7D0Zx4GLAd9AG47KO77r LQca4C3 rFY7B1XeEHEkwyzmkzxjlUB 1YYDeTGDumA26Ss9ctHcbNf 0tOQLpFNH7WTTjuBQeM1Tez S4oRpLv FJGlLTYkK7RidHMaPEhtL41 9FIglHnU0CLJiwmStR8JqFL JehYnqExT6v0H8Em6NBYLeH L57RBR2 hPM6RJ20KD56R6DpLnhzfWQ ibGU+PHRhYmxlIHdpZHRoPS epIOWxRnVsqUgjKT0vXe2xL GVyLWNv kWvunTTyEeVsm6mrFHAfQVc fWX6epNtpC9IvyHU5QMInv3 o6Jq06U11hN3ZmmCM+PGNvb TM9pFK0 uK6yKpNuVsY5NIhgT841YpS ibXLdAnpgz6hme4aubVe6Nr K9PFHylsPiwUmkZPM0t3OiW n33E23m IHdpZHRoPSIxNSUiIHZhbGl xcm2wsS6fXf6+KVNljYI9pG K9mQ3kBdPpKhH3MNkcE851M nRvcCIv Themz4pnp1gjmQb8QnNzIMM mlwQrhVaqQKT2e8ScPo03V0 YrwWerl8DkYtk3sc70pJCau 4P7sZE9 J4XtLFOrldhfoRHpqYkeRV3 mNRRzuhfuMVKlpE4pEYHuT7 v1ZfShLoM2LTwnQ7DageG4N DEwcHQg VCpoKQZ4V81pj5M1WIHoTNU fXXM9gOW0vU0bfVryvhykzR VmdDsgdmVydGljYWwtYWxpZ 246IHRv ySpgNXGkqE3hPNShyELyaHj dXK0vDSLwrjxhJmiGAynyNZ iPEiWFVI39WW53hHOdv4R3r OE9C5Hr MHEkscprhfsgpDZ5QAVmWNV ekK98dUMfKZpcDg4ix1M9i0 54DUZoWISrsT48Te6phKcoM TBwdCBU sE4akkhzc7pllwtxJnPlHBB mENd1FLq5BWEgxTrvJiAkGC D6TsQ4WWO7zFLkiT9djAkuy burgR8p Oyc+XZGuKsFpIQr7VZifwXL +YQRuOUY8mTtzWNegNURbzO 0rWMQtF8j0TjFrAhM4LAbrU 3BhZGRp qfvfAx94lV6wJkLzBwE0YCl jI8GfodI7DUTzhJBtJLnjUO C5N14cw6M8DEEiZLBwGLW2t CA1xN0q bGlnbjogbGVmdDsgdmVydGl pQWaiNYwzN736ZRXskFqsJg U1CTbgDXZsHT89UD52nUSqd 9X6hDZ0 O7FoAPJfwwgatglaiTY7RJY hZHFbjH96sYMxICmwBc6jr5 B8c526AYVlPWWcoH79Gy3nv DogMTBw vDUVoM1zkopxn7vigjvhFlS gIOMnROo6RAu7AVXxsPczGj RbYWW8MnB6FMK8tNQddB4xo Glnbjog oJ4tLsh+TWFsZTwvdGQ+PHR tGPJ1oKahNVxmQKThbJ2mZU HcM6j2RyEbMjA3CQqnC9OhU GRpbmct Qe60gQ1wMtJqGzV1UNfaM2X xlcD9DVEvwGDwUCivCWG0K1 8ak4Z6MXMbDNHtBNB3hGO7g V4pjEyd bjogbGVmdDsgdmVydGljYWw oUOaiX565PMJwpQvmQvGlaT 4gTWFuYWdlbWVudDwvdGQ+P V12mm01 X1WlRypeRsp1QKWdGFT4vFQ 7jB5fWGHeMZcfb6T1kYB8W2 CndzTnbi9hc0uxAFXaGKrqE 29sbGFw z2U8KLDufII8WQQfxLnpVaQ pvM68Vud+FQZbiFhji7ZhJf ehb1gxy6goeWm3JtFsWIZkl mFsaWdu VZO0x6TvOi81D72pTHngXAK sFNDwNBUzQYMsfZdtlf0wzA 9wIi8+KFBneNU1zMZ9wP9zF jAlIiB2 KIdtA287KjCreYAfJmjsy0o tn6pebKo4DhYjIBAgmgOujJ qsVTP9b1BsEo11K2JxqMoft 5ZoBlp2 ba06mRFaz8L6xCU8I8YpGQD turkpdISqoDacJY6yGOEupx zsHHAboF9zVGGwZ6z3WkUzT aU0URbc M2QpgnG8VWAeeGZjFHJwqPZ VsD0udpyga7munitvHrMeTJ IiSRi3YJi6BYMdfZrzFjTfI XK9UuC1 IYR8kNWkyF3egHfvzcujqP0 wOyc+JZe2c9uwhPBdBT0jqS F7ZI47HO23kWHhx0W8yKJ6T 3BhZGRp sukbodlvmLI7JCDfDLOrmT3 7Er6avDcnRf9uKYCnBFQ7CK SgoPAgB4EyyK8yAcQrJPKeK GPqJ6Iw hQFoVOhgJ766FFioOqE4SYV jqrMhQ6KvMUDxgVnxUfE6l5 I1Kj2BGD07QA25UV47eOLho 2H5qWW0 W2GjZDCodffyducwyHZ2NPJ lIOWwcB67Dv3wgUvoPh4mWS JzMMS4GDDgcRFyM0ElmD1qF iAjMDAw DHYwT4ZxfLBiLGxrV279DHf xCeS3DZGpjvRrE9AcBNBlzN wgSkB9e8E1Ws4SRm55LM97C I06sLFb g3W8tUZ6P7LmAMUgfupxatv wmDM7LLSoZCDkbA05Lt8ymW ubNl9nNTArIMQ9ADDyrYGdC 1PheJ6l PmPrJRJrDTRwD0ZjwMFxWUj eG843WQeaNuX6TPIznlRdC9 RsFZAqjUjnHjZ9l4A1Si6YE Xllcjo8 E8ZdCoozqKG+EA20OTEzVZ5 1uUPswFKzq2oomSi7XtVcKM DrZTP9aWcvQKvqo1NdALVsG 29sbGFw c2U6 (more content not included)... Normal [facility] Consent for Treatmenton 06-18 Consent for Treatment [id number]#1.00 CD:127 Normal [facility] Consultation Noteon 07-04-19 Consultation Note Patient: CHRISTIANO SANTACRUZ Age: 26 years Sex: Male : 1995 [...] morning it is better. Previous critical care physician did not help. Previous physical therapy did not help. Anti-inflammatory medications do not help. Health Status Allergies: Allergic Reactions (Selected) Moderate Dilaudid- Hives. Severity Not Documented Morphine- Anaphylaxis. OxyCODONE- Nausea., Allergies (3) Active Reaction Dilaudid Hives morphine anaphylaxis oxyCODONE Nausea Current medications: (Selected) Prescriptions Prescribed Lexapro 20 mg Tab: 20 mg = 1 tab(s), Oral, Daily, # 30 tab(s), Refills(s) 1, Pharmacy: [id number], 178, cm, 04/28/22 15:31:00 EST, Height/Length Dosing, 79.7, kg, 04/28/22 15:31:00 EST, Weight Dosing Vistaril 25 mg Cap: 25 mg = 1 cap(s), Oral, TID, PRN for anxiety, # 40 cap(s), Refills(s) 2, [id number] 178, cm, 04/28/22 15:31:00 EST, Height/Length Dosing, 79.7, kg, 04/28/22 15:31:00 EST, Weight Dosing cyclobenzaprine 10 mg Tab: 10 mg = 1 tab(s), Oral, TID, PRN for spasm, # 30 tab(s), Refills(s) 0, [id number], 178, cm, 03/28/22 14:15:00 EDT, Height/Length Dosing, 83.1, kg, 03/28/22 14:15:00 EDT, Weight Dosing phenylephrine 0.25% rectal gel: 1 evelyn, Topical, Daily for itching, 54 gram, Refill(s) 0, [id number] 180, cm, 06/06/22 15:30:00 EST, Height/Length Dosing, 77, kg, 06/06/22 15:30:00 EST, Weight Dosing Documented Medications Documented acetaminophen: 1,000 mg, Oral, TID, PRN as needed for pain, Refills(s) 0 Problem list: All Problems Former smoker / SNOMED CT 55482104 / Confirmed BMI 23.0-23.9, adult / SNOMED CT 1392452264 / Confirmed Family history unknown / SNOMED CT 6696168932 / Confirmed Screening for cardiovascular condition / SNOMED CT 950495661 / Confirmed Enlarged tonsils / SNOMED CT 028899449 / Confirmed Difficulty swallowing / SNOMED CT 49481810 / Confirmed Constipation / SNOMED CT 35007946 / Confirmed after GB removed Hemolytic anemia / SNOMED CT 022427313 / Confirmed Non-smoker / SNOMED CT 87683289 / Confirmed Stomal ulcer / SNOMED CT 1904709772 / Confirmed Splenomegaly / SNOMED CT 25021074 / Confirmed Hospital discharge follow-up / SNOMED CT 4216647917 / Confirmed Hereditary spherocytosis / SNOMED CT 93261618 / Confirmed Testicle lump / SNOMED CT 764719897 / Confirmed Cervical radiculopathy / SNOMED CT 194436180 / Confirmed Cervical spondylosis / SNOMED CT 9775644366 / Confirmed Muscle spasms of neck / SNOMED CT 4435293894 / Confirmed Insomnia / SNOMED CT 240648592 / Confirmed Medial epicondylitis / SNOMED CT 95501638 / Confirmed Anxiety / SNOMED CT 10728889 / Confirmed PTSD (post-traumatic stress disorder) / SNOMED CT 38143946 / Confirmed Hearing deficit / SNOMED CT 16753052 / Confirmed Lower back pain / SNOMED CT 084206731 / Confirmed History of neck pain / SNOMED CT 7551522493 / Confirmed Resolved: Cholelithiasis / SNOMED CT 282871601 2009 Resolved: Sleep apnea / SNOMED CT 858356541 Canceled: Well adult exam / SNOMED CT 060689395 Canceled: Sore throat / SNOMED CT 041483173 Canceled: Pain in the abdomen / SNOMED CT 86287731 Canceled: Fever / SNOMED CT 8783768389 Objective Vital Signs 07/04/2022 15:31 EST Peripheral [...] Difficulty with overhead activity Integumentary: Warm, Dry, Ai. Injection site well-healed Neurologic: Alert, Oriented. Psychiatric: Cooperative, Appropri (more content not included)... Normal [facility] Comment on above: Result Comment: Elec tronically Signed By: Leah Myrick PA-C\.br\Date and Time Signed: 07/04/22 15:50 EST\.br\Electronically Co-Signed By: Sen Burgess MD\.br\Date and Time Co-Signed: 07/11/22 11:12 EST Legal Correspondence Officeo n 07-04-2022 Legal Correspondence Office [id number]#1.00 CD:127 Normal [facility] Office/Clinic Note-Physician on 07-04-2022 Office/Clinic Note-Physician [id number]#1.00 CD:127 Normal [facility] Patient Correspondenceon Patient Correspondence [id number]#1.00 CD:127 Normal [facility] Patient Correspondence [id number]#1.00 CD:127 Normal [facility] Patient Correspondence [id number]#1.00 CD:127 Normal [facility] Patient History Officeon Patient History Office [id number]#1.00 CD:127 Normal [facility] Coding Summary.on 06-20-2022 Coding Summary. CD:[id number] Gh0 bWw+PGhlYWQ+YM6CQLQuQ69 yuQDxuE5KW2nNGG0JEAIFHW SIYA3VUE1sdWP0RLnqY5Lxy iAv RjseeRKxIN51QGu0AKW9vSc bUXxdoQ1rfPYrT5e2XpWoOW 92jX65YAxnNXGePgR4SsNjh jsgbWFy U7luGhXvcSNtDtp+PHRhYmx lIHdpZHRoPScxMDAlJyBzdH qaPJ2wVv3aDKZjGJWrzNioo HNlOiBj n8sxTBTaUMpxGP2tvWlhQ4F iiMA9KLQfy6m9Hd91nTZ+PH ZkKZI4hYxoBBnfb156TiWbq 2wgEBL4 lWNpAAdpFCF7F71ad0B8UFI kKXQpZZK1cIR6oG5ouJeddp anY6LrvDPbVdJ2WJF8iXKxj H5ubWeg vbeskC1tGqu+N24DUE8GSUW NMU5FZxe6K3SkJatukOB+PC 39ROPeLG40xUTcpOHtw5xrf Pn2JlKi EWIoUEM2aTyeJUxyx6BtNTC lU01zzUJmk7V9CGFtlSnndQ MeJjDwqSD2pI3pQXcmbsuqh 2hvdzsn Dwpdd4xqaa49eG09H27hTVu qIUAaNOA3LORyBRNfoVefhq 8lwV6nHf3+OKkmy3oat0vfe Ku5YbMq UDPrprRjlNwuRPS1j9AuFu8 4C5ExtZtuk1HaGlb7zi83nG Xuq8T5lWR8PJntZDVliM5mZ WxlZnQ6 DAHeMaVtuO58yUMrFYxuXy0 mkQduuBmkJO1bDWQppkxkQI TunD8cNDZdxDUflEyfHJ9oF TBpbjtm a778HvVfWMN0SGXmeFClK1U xxY9aWkKmFYVcPCMhK3KhsX TzFZpuB089BRkdVjT5LZAyl rRkH3Yh XQJdlUqdAsU5a1D5Hw3Mm7B kvxycJGC8MIqeQUNtDxRmBz KhErP6Q0GjUps5VWPvmJhsP F2pO6Bs EDYoetslbvxzzVK6TBQqCEQ zjT68oFFkTLxtBm5xm0D6p9 34QBDvGGWegD60Hw9qySzcN TBwdCBU jJ2nxkola5asybllZnRuDET cAHb2IKx1JSHzmEldQoBkVU N1BiS5EQZ1iOFjoX3ehIsvg alirM5i Oyc+L80beQ2eAQD9EMV6twd cIBPgcvZdEE96NY71N6CtPm wvdGFibGU+PGRpdiBzdHlsZ E4qVhYw v2bjq5BeBDvcP2LqKPGpBCx dGxh1KWPkAUQ0wDI4rJ8eQD EhYYjsh1Y9vYV2X7EkcmKbp p9yb3bp TIUwSXqhH03foTEjb3T6EOB riXR5LDUddXsuScZgaW69Vb c+LNOptNpgd2IhNrmfs8uhl 9jnyWb8 VlGtLMXtdyQarBchQOW8n4R qZs21J94rDMbtTHHzRITnJW LpITYfvMuneo5rlQ1wIx2+P GNvbCB3 cMG3lB3aIXMcEtI7WCkcD32 1GuWpvGBnKchtm8fao0xllL n8ClZzBSOkxyRhdCjvVYI6j 6EkBl04 E85xOIjtVHFjWFYgMYGvBZF ipBmixc0zbU8sHh9+PC9jb2 xmtm63oW56gBR+BIQuXJP7n WxlPSdw SVZqvI1nZZzeQmL3WYEqPaM pbR45dBBjCTmnWo6vmKmrpW maGW9pHAHmxpmja511SwUee 2xkIDEw eVNmFTalQPK6G14eg3B7ANR fJYYbNKU0hAE0kP7vzAnpxt ogbGVmdDsgdmVydGljYWwtY NdhZ557 IHRvcDsnPlBhdGllbnQgTmF xGJm4A6OrAnk4KILziRjiQW 3saQWhMBebHq6iyLuabRizL S4bGBTx tplgq274SgQpl0nuFCFvtLE vQIjlCJH1T32jk1Y8BCRpES UyJPC1lGE5oH1vfYuzmgeza GVmdDsg dcDswVcoJQqeAYhxX664FOD idQkpMpHpwcOvLYTcnOF9VE 34QV99pWOcv6X5aUV4Q1HhV GRpbmct cbaokBY1FWOjIGVlrJ87Tz5 zcVmsZa3oUUHdWES0KJSqzD OuP7GtoM9aLqZyOEDyMWSwW 3RleHQt MWyyB830MJwgLgI8PDTdzkW xT2FgFPAdtAmxVgR1z2R9Ui 3RF9X5EF16JC86cTZru8U6i OG9A6Na STAukervkvppsJH8OEIeCBU phU09If8ghJfhMg1dRNNiUY A8BGWooPJlC4TtqG4rMaWtH DAwMDAw K1ZpwKNlVJskP048QClqEeK 5BNKlzfByF8YdMYYrtLbwMb M4q1Y7Ia2FLMb8UE64FO62s QRel0R5 gTR2Z1EcLAPflqwzdznlzMX 9LCJeRGFcfY33Fa7xeMjqDl 7zWUJrZHI5TGPdxITcF5Wjw J9pWpJk YJWcPMLhI4BdzRTcAVltW47 4RSmjHmE2JTEqvaXbS8OkVY BomPcuLhQ7d0Z4Lj2NUQQsM U95DSB3 xWD0OH98DE47J0QpRdpygPM ibGU+PHRhYmxlIHdpZHRoPS eiSZFsKuPcuIngQQ8uOv4iM GVyLWNv aDlxxZXiFhHio0juMMNbLSj qBD3bdMuzC3PolHT6ZHQhe7 o4Mi86H82eC5TlcPE+PGNvb QY7dZU9 aM5fGjFfDcJ5QQjeW077CkU zeAAjPnogm9mth3ohyZi2Eb N3MMDmiwApmEhiQXQ7p8DzJ g72D75y IHdpZHRoPSIxNSUiIHZhbGl aea9wpF1uCl8+KHAuvLF4vJ P2yE8pVlVxZyX8PClxN883C nRvcCIv Avxmc9hsi5attPw2DaSxHDL pwuPxgLdhMJN3v4AqIw57Z8 KnzGrak9TuOdb4fv38fPRbj 3V9pBN1 S7ZbBTBuypmnwGWvkBwxCC0 rCOOkegdrQNDmxP7qRVDcK2 s7ArBxFuN2AXmdG7BdfbA9N DEwcHQg ZVsjXHA6L04ur8L0QGXaKKS rMTF8zLX5jN2lpTaczlcbnB VmdDsgdmVydGljYWwtYWxpZ 246IHRv nAurGYQczM1yJVHtuLRgvLp aWQ6fVYNuwjwbMqfIAxyuYL oBIuZZXQ42QC38vXRwo5P9w QT6V8Cx UQVztixeiapzoAV0KNXcKHL lsE55jFPlIAqfCe9mv8L0i3 86ISHwITGvaR28Mj7tmGswB TBwdCBU jO7qalgqf0bbjonyQiNzYDD dTFi2ASq9FHAgrSzkKhWyXO M4JoW9ZLT0oBDneL1cmWyhf vikoX5m Oyc+JZVvRqBaJAs4XVvfwGY +RSNlUEL9sZjvMYajWVSflE 7xMQRlS4d7OiIbKsZ0TCqtH 3BhZGRp odwcXq57uY7eAdXwKxG4RDa lS7BfnqL2DIOvxFHoPNwqPK Z4P03il7O1OYGgWDJuOMO2d RB8wP0c bGlnbjogbGVmdDsgdmVydGl zWCbhVQmzS164SURqxJelJx H6NQxhNGZjOZ20TF68oLDaq 3N1rLA3 L2MrSCIhrutceiuatLM1VWJ uCZSylZ15iWUeNUxvEp3kd9 N2l801JNOdHHQzfF60Iu5xm DogMTBw uJEDtA9woxdmf2ohighbHwX tUOIiDGs5DRf3OTNegItoBy JgQXR3YvE3TKB2eEYckC2gb Glnbjog aP7tBwl+TWFsZTwvdGQ+PHR rGHV4uHfyQAqnKQLuyF9sGX WlI5n2QdYyQtV8LDfoM3LcH GRpbmct Lr26xM3hHbDcGhC5JVvmW6L cmfI9QCIvkZWvXEknBTM4N0 9ks0E6EPIsMOJxKDU1kMS4o A2uyVmb bjogbGVmdDsgdmVydGljYWw oBQwyC634AFZwzAuvAmYasD 4gTWFuYWdlbWVudDwvdGQ+P Y42rq44 R6PcKhryUvj5HUKwNZY5uIF 6lX5nJFSuQKukr9V7dEL5V6 ZewkTcyr7id5qbUDHlIQlaV 29sbGFw c8G2VHOusVZ4XXTrgArtUzU kgV80Eme+CTVquVubm0WhEo jgl2kmt8dbmSr3LeMoVDZcw mFsaWdu GZS0m3FwYc89G76tOWlvJMQ tZAMrMZCrTEXmmUsizx0gyQ 9wIi8+ETKrmTS8gDA9eF3eW jAlIiB2 WKsdK258RoZsgEMnKjftr4y ak8fimAq8CqPgTCXvavHkvB pnLUC8t4ZjMp14D9QxpRoea 1RwXzm2 dw77nPEpf9X5lAI0H7OiMIQ kcbuxjMFtkCugMP6vGFJyox faIGXmaY1zYZHeN1v1UrVyF oU6LBkq F1KlhkJ2AESzaXGyZRKkmUQ WhU5epvcyi8ekbmbgLiOeVL EpSUb5HOp1UJWpvBlfMuMbI YJ0MpD4 XEE0qADxtV9lySqfzkfizE4 wOyc+QVe0i4xysGEcQV7exS O8TD51WK04oYStu0E1pLN0Y 3BhZGRp njtrucdaySL3GPFaSSOrhW6 6Ht6weGwmAv9vMQGtRXP7GU GauXCgM4FehL2tKcQuMNRyO WUwI1Vd sMEcXBebQ709ICfvVkA2XZQ dvmQyW1KbMBUttFdiBcD1m7 B9Fj7NBH87JN49YD23fUZpu 8O9jDG1 B5DoHHQvularrghkxOK5ZVT aWOLvsI49Wq3qcIblYa2oVE HoZPD2UWTtvBStB7FahO0wN iAjMDAw XCKrO4DcgSLfLRreR414WAe yKgT0QAUksuBxQ1YeRCDemT goJiF0c7B2Cr1VRc39AS35A P64dLMt e5Q9eWL5B2IfVGNtnuhkzwc wwIM4ZQKwDBUydP73Gf9xwQ knCu3vEHZgWZX5DKYrtDChC 7JcmL4w ExVhVZTbVPPoI2TvrKEcNKt qF921HXkaYwJ3QHTaahMnW0 RhDLUgzCjcPiQ9c0S0Rn8SQ Xllcjo8 M2MlPlayhZV+ZK75VFAoIB6 1gWClkXUpw0uaeKu3GpJnQA JdHGU4jDnyAOubi5BzBJNcP 29sbGFw c2U6 (more content not included)... Normal [facility] Operative Reporton 3 Operative Report Patient: CHRISTIANO SANTACRUZ Age: 26 years Sex: Male : 1995 [...] Epidural injection procedure Physical Exam: vital signs. [facility] Comment on above: Result Comment: Elec tronically Signed By: Sen Burgess MD\.br\Date and Time Signed: 06/20/22 13:29 EST Consultation Noteon 06-14-20 Consultation Note [id number] [facility] [id number]#1.00C D:127 [facility] Consent for Procedure/Surger yon 06-13-2022 Consent for Procedure/Surgery [id number]#1.00 CD:127 [facility] Consent for Treatmenton 05-19 Consent for Treatment [id number]#1.00C D:127 [facility] Discharge Instructionson Discharge Instructions [id number]#1.00 CD:127 [facility] IntraOperative Documentson 08-14-2021 IntraOperative Documents [id number]#1.00 CD:127 [facility] Main OR Intraoperative Recor don 06-13-2022 Main OR Intraoperative Record IntraOp Document Type FT Summary Primary Physician: Sen Burgess MD Finalized Date/Time: 06/13/22 15:47:06 Pt. Name: CHRISTIANO SANTACRUZO.B./Sex: 1995 Male Med Rec #: [id number] Physician: Sen Burgess MD Financial #: [id number] Pt. Type: P Room/Bed: / Admit/Disch: 06/13/22 14:24:38 - Institution: Case Times FTPM Entry 1 Patient Times In Room 06/13/22 14:49:00 Out Room 06/13/22 14:56:00 Procedure Times Start 06/13/22 14:52:00 Stop 06/13/22 14:55:00 Anesthesia Times Last Modified By: Suzan Louie RN 06/13/22 15:46:53 Case Attendance FTPM Entry 1 Entry 2 Entry 3 Case Attendee Jenifer BOGGS, Sen Sanderson RN, Sonali Louie RN, Suzan Role Performed Surgeon - Primary Scrub - Primary Protozoology Teacher - Primary Time In 06/13/22 14:49:00 06/13/22 14:49:00 06/13/22 14:49:00 Time Out 06/13/22 14:56:00 06/13/22 14:56:00 06/13/22 14:56:00 Procedure CERVICAL EPIDURAL CERVICAL EPIDURAL CERVICAL EPIDURAL STEROID INJECTION(.) STEROID INJECTION(.) STEROID INJECTION(.) Comments Ava-student Last Modified By: Liban LIVE, Suzan 06/13/22 Suzan Louie RN 06/13/22 Suzan Louie RN 06/13/22 15:46:55 15:46:55 15:46:55 Entry 4 Case Attendee Gwyn Caba Role Performed Customer Service Coordinator Time In 06/13/22 14:49:00 Time Out 06/13/22 [...] Myers Given Participants RN, Jenifer Oropeza MD, Rosales Badillo Bryce, Gwyn Caba Time Out Complete 06/13/22 [...] C6/7 PRASANNA Primary Procedure Yes Primary Surgeon Jenifer BOGGS, Sen Dodson Start 06/13/22 14:52:00 Stop 06/13/22 14:55:00 Anesthesia [...] and tissue Entry 1 Skin Integrity Intact, Ai, Warm, and Skin Abnormality No Dry Outcomes [...] The haily (more content not included)... Normal [facility] Main OR Preoperative Recordo n 06-13-2022 Main OR Preoperative Record Holding Area Document Type FTPM Summary Primary Physician: Sen Burgess MD Finalized Date/Time: 06/13/22 14:34:18 Pt. Name: MARCE CHRISTIANO Muniz /Sex: 1995 Male Med Rec #: [id number] Physician: Sen Burgess MD Financial #: [id number] Pt. Type: P Room/Bed: / Admit/Disch: 06/13/22 [...] By: Patricia Nguyễn RN 06/13/22 14:34 Normal [facility] Coding Summary.on 06-07-2022 Coding Summary. CD:[id number] Gh0 bWw+PGhlYWQ+IZ8XFSGaC55 pmNPsxJ8KK2aCSA8HHCLWPU QBSR4ZWM0ysNR2FKwvJ1Mlb iAv BkywdCLeKZ24ZGg6AKZ8xIp wFFiwxM1rfWXyN4i8SkTyWN 91cY61MGtoITGdUnO2EjBjf jsgbWFy L3gcGfBkgFVmEwt+PHRhYmx lIHdpZHRoPScxMDAlJyBzdH kpYA9mBs3hPRDgPNMtgIcod HNlOiBj p1frGLLvYNewCR0npWxpU6H qtBE9BRDab5g7Rv39mKX+PH EjHYG9cXhgKEwmf434ZeJwz 0kbIDL5 cBCdRGziHTW5S50xk0R6YOV sKJUlDZT6yKB3pR4grBenwp odC3WbsGVzUdN8POB9uWOqy S8jzFim jdjjhC4fJyo+O41JBT6QPGY ONZ7PBrz8X6WhQuttnFB+PC 66TLCzXP46rHByfDEvn4qcx Bb1QeUi NZIwXFK2sYcjPEjtr2JsNXO oH54lwVYcv7T5WMBfjLyryV TmPqAsjMK5gP1eRCzmynfoi 2hvdzsn Fwxim5vuqq88nM93N79iECq gFXEySSX8ZUTjHFSyiSoocc 3soE4vTt4+YDqfi3ikx7xrv Hz4NfNr NVHspjJphIvsCKK3v7CsSs3 3X9QkrKrnx1QgRlo5qw82jJ Dvu5W7cRQ4BBtuXYAdqV5gG WxlZnQ6 DEZtDbBbzJ35uLXvWSfeCp7 feAvgbOgxEI0kHPEuwssgOY JabH6vBEBieZIuyLcaGY5aC TBpbjtm i925KoWqMGQ6GKNpuZVkV3G wjM2kKhMjHDLoOPWsS5TauI NbIWlyN304JQpfLaB1YJLsa nGpY5Ns LCSylGifSxH2p8R1Mx2Ow3R yqajmVTA3NJneZMVkCgSwTi AsKqV9B2BhGty7FRCfrVlfB Q6bL6Pu JAIbvmizryoyfMA9OEQnLEF yxS64nNDoUBfpJz1gc3J6b7 89GVIcAOGifI94Wf5isWscW TBwdCBU hV9moqkgj6ptjtzmXnAtGGI bAFf1UOd1YVDbmZrlArUlUS G9UcT9NTP7kIIgzY3igPppm pkcaL9i Oyc+Z39fpO6gUIT3EPX8rzu oXFCnwnMvUF18BB49Z1IsOn wvdGFibGU+PGRpdiBzdHlsZ V8uVpBl p3bkf4GrIXxvC4RnJHMrILz mMml0IFJhPJZ0dNT2hU7mLQ NvFRjbq6K0vIG0T7KfnoXgi r9mp5ja AKKmSDspR49ewNSpf7I9ETT jeBE6ODXtxOmzQfMfpT75Zd c+FPGfzIsxm9KcUgqpp8fgu 6tyrNj8 WlKhXKWmjyJvtZkrCHA5n7L wOx24L62tBYtiPQOkJQDrRF AeSNYbrUsykx8ubV4jRd6+P GNvbCB3 cUG8pH6bCWScIwS4OKyoP30 4CgIibPYaCxlwt7jyq1ouvP r4BnRjXOTdceVfoBlrSQX6q 3AuOm95 N32uBIuwGZRpNOQoXYTwKUF acNetok9dyA4rUr2+PC9jb2 hxne53sW14cZV+RYAsPGP0r WxlPSdw LTGwiS3sBZubFnA2RHHsEpA iyI79nEQdLYofMg8jeLrzuJ ajRC0jXKEzcqzjq469FgMdy 2xkIDEw gLBbQSwoUMT2W40bf6Y5JEI bJHRtHZV2bKZ1pG6wqWzknw ogbGVmdDsgdmVydGljYWwtY XncF406 IHRvcDsnPlBhdGllbnQgTmF dAQf2T3QdNdk0TWPgwUosSH 3tsOEdTLaqHe3wpZtiqVchP Y6gWPDw wudyc205NkYxe2rmXVVkuTK qAHkkRRD6D71tu0X2PXRhAJ GhVEV3rEQ1jO8lxMyjdmuge GVmdDsg gdPniBkoYPpgNTtwQ061IJU fyQjxXfAxzhCcGIWaqHV4PJ 39TQ60rWHbu7O1wZH1A0GwB GRpbmct fxoiiAO5DFJbVBSsaG72Bp8 ttPrcPy7uJHQxQTC1NDKvbD CmQ1UwrB1sYwYmYJXfIDSiR 3RleHQt JFuxU790ZWuaRrY7OWBlojQ dJ7CbINBriVzqPmI2y7M7Se 5EU3M6OF22WZ23oAKzm0T8o KZ4R3Bq ZCAbqylrzeseuGA8TTDxYYS pvV60Mc7vtCvnXu3dYLExSN C8EIGgbDSaS1HjbP4oIeKqN DAwMDAw L7RpcTDmDOedJ028XJoqYtO 8JVJklnIlM1JpMNXpqSkjLy S7o9T5Rh3BTNq2RI83PI25h WUla1G7 pEH5N3TeBDIzlvrwvnlndBJ 7PEIcLKFwlT39Ji0zwFsbXo 3kJESwBOK7HICrkLMbN1Qqj D5sXrOv MTRsDDWeL8HkdFDtONcoU91 5NPtlHrH0ITKtikFoL5XtBW DmvMdkOvD4m7H3Xc2OYIZuE E71AIL0 dPS8MU61MZ99W5WyJznvlGA ibGU+PHRhYmxlIHdpZHRoPS syWNUeXgZueQaaVX8vAn7wM GVyLWNv rKxjfCFlRiQgf9hqSLIsPFw nON8ehSpmP0CuwZG2BUPzn7 i4Pt25T89pD2CchKS+PGNvb YL0eBW2 tA6gFwClTcB3XWxfJ448UoO ycRUoGwcpb8fzd5oqcXj3Lx L5KLValwNubKjtPSP0p9SfZ e21G18b IHdpZHRoPSIxNSUiIHZhbGl qip0yyT0sAh5+TUXgzOV1mJ K3fV3zXgVzAvJ9LMssX746L nRvcCIv Ebzir3cbd7bziKz8DcBbUBS usdQtcHgiGZA3o0MaTd84F7 UysRqjq0WzMzw0re00zQCcb 6Z0qLZ4 Z9NxZSHevolefJWrtEstJF8 oOMFxahmfTJCrnH1jSAMsN6 l1KdPcUiJ5ZGgjQ4ZonsS4Z DEwcHQg GChbGUO1L45jr4Q8NQWxZOL rZVW2sFI9xF9skAsoocgjjV VmdDsgdmVydGljYWwtYWxpZ 246IHRv wOnkWLNzhG6gNTWkvAPkyBe hOT8cYWGsrgrkXcrVMfsqCW wXCeOKOL44MH59mYSjk7K1j NN3S2Ie OOUirmutmbmcdDC0NEXcSDC qdF05fGAbRTueMk4eq7F6d2 14XXFrPRJkxA79Qn9eiFtdO TBwdCBU cH9hcnyer0zvmcuxNjIlWGZ rESi0MYr4ALFbyScjPbRzIE S4WxX8WQI3vYWshE4uiMzkw ueasS9a Oyc+BARgBfRrXCp3TUknaSC +JDFbUBH4sQsfFHmaIBByaM 4vOBQjQ4h0MhYlSuW9ZGjmP 3BhZGRp hwbiRw85vI0kNwOiUyG9EZk bH5CfveK6VTKiqUKpCDoxUR H4U95zx9L2MFMkSXHlRMZ7s XM4oW9x bGlnbjogbGVmdDsgdmVydGl wAUfzFVqxC191MOZfyNcuNo O7AHxzXIJlIM27WT85nKTxe 0B6yTM3 T0VgNKWowroveaqjqTG6EYU cTVXvcI72oLAyQOqbJp0jq5 E3v281KQXuXYMnpX56Mr5xw DogMTBw tGQZxB1zlomhi3wmyuncCvR aFZCzVJf2FEn3FNGqvSsnAb LyBUA8WaM0OMU3dPOhrK3sq Glnbjog cI3nRiu+TWFsZTwvdGQ+PHR aSYE5bSkvODccQXEnxP0cOJ JsJ6u3LpAwCbZ0HFskT5WzJ GRpbmct Zv87mG3jXmSjMcL5GXjfY7O walI5DXDkfMQzNQqqKZG2R8 8gq5Q5SKRgZQWrHST4uJK7v D0oxIyt bjogbGVmdDsgdmVydGljYWw wEQesZ208DHKbkBaoDvPaAW PfAE7ynPhxoVB+SC45pf50G 3RhYmxl Ubq4CIYvYDR9bYY9pH5aWOF yOKvlk1N9yQM2X7LoklNgbz 3qw7jcKAFhZKijH57rpTWqm 6L8TRCr dEU7AGWorXpvCfMenZ24Ctd +AUYuaKaac8RvHylvz7jlh6 gjbFg5HhYuJCRngyZfsSndO AJ7d5Mj Ta27B27hBBmzDXUdDZMpXQR zRXGklOdipv4wdZ7zAy3+PG DvyQR2wVN4sH9lGoJrNzK6A FnoR547 OdZzrHNxVdukm1uak9nxzYc 1HwTkXHLbrjSxdGlnYEE2l7 RfMh20Z1VitXxhb4XjQfz1u f79xZBj k2C9rFY4F3BiUPKpsakghGL jlPujXP2pAITumjscBRBdwQ 0fFKPqA0h8SiFyRrJ7TJncK 7SlqfM4 CIRovLSvESWvjKKGjF5gbwi vs2awqbmwUsBqPCGwOWu4TO q9DMZfiCmcKqRrYKG2SgO8Q CF8iNJz dB4brRjiosppqU4dMkp+UGh 5n8ulbNIxZZ0pxVY7FD12CQ 26cEZqg9O9lJL1A9MlLVTeo mctcmln eZA1HRDtHHDpyV51Jf7bhLj gBi3xXBOuSCP0CUKfoHLgD4 YerJ3dBkRmLMCwHGPyI6Lnh HQtYWxp J885GTmrHwE5BIVmjgPqG6P cHORtwGsxIwD2w2D8Sw1WYB 43XG49BU89iUOqe1Q0jCD1H 3BhZGRp blhzqyiyuEW4MCAyNVTpaS7 8Ey7tmCuxMj4vJKQqDDO2KQ CccSKiM7RzgZ5iEbHdOYUbI VZtX2Kp wXPmMOpnM042PGyzJtX5PMC hcpEyA7IdZHRfzYgxPxU6m6 O6Oz5IFe88WK67XZ84jHIwn 4D2bCU6 K6GkGOJfrqvlvqgjuVP3BTT eUZLptB36Pu4mtEykVi5iMR MjPBM8FXMciLNzR5IkpD3jW iAjMDAw WCOeE9MfzZNyPFkwJ094ZUg lAeP0BRUejvPuE4QnURQgrR haWaT9r5R8Cn7YJAfpuxu2G 3RkPjwv dHI+MP43GSBfKQ17qLQdbXP fy7dxkOa6LlUjLNIfHXS5bK iwJWgsk2DhNXCtM55srKFuc 3W2BUOc bGxh (more content not included)... Normal [facility] Consent for Treatmenton 05-19 Consent for Treatment [id number]#1.00C D:127 Normal [facility] Discharge Instructionson Discharge Instructions [id number]#1.00 CD:127 Normal [facility] ED Clinical Summaryon 2021 ED Clinical Summary (Inserted Image. Claudia ble to display) [place] [id number] ED Clinical Summary Person Information Name: CHRISTIANO SANTACRUZ [facility] Age: 26 Years : 1995 Sex: Male Language: Kyrgyz PCP: Lelia Franklin NP Marital Status: Phone: [phone] Visit Id: Visit Reason: Hemorrhoids; NEEDS HEMORRHOID [...] 15:48:30 06/06/2022 15:48:30 06/06/2022 15:48:30 ADDRESS: [address] [place] [address] [phone] PHYS DOC NOTES: MEDICAL INFORMATION: Prescriptions Given: New Medications [facility]/pharmacy #[id number], [address], [place] [phone], [phone] phenylephrine topical (phenylephrine 0.25% rectal gel) 1 [...] Follow up: With: Address: When: Karan Lopez [address] [place], [facility] [address], [address] [place] [address] [phone] Business (1) In 3 days 06/09/2022 DIAGNOSIS: External hemorrhoid Normal [facility] ED Note-Physicianon 06-06-20 ED Note-Physician Basic [...] Lopez In 3 days 06/09/2022 EST [address] [place], [facility] [address] [address] [phone] Business (1) Additional Instructions: Patient Education Hemorrhoids Attestation Patient seen and evaluated by the physician sales assistant displays. Attending physician was present in the emergency department and supervised care. This visit was performed by both the physician and an APC. I performed all aspects of the MDM as documented. This report was transcribed using voice recognition software. Every effort was made to ensure accuracy, however, inadvertently computerized medical transcription editor mistakes may be present. Appropriate healthcare PPE [...] Family History (more content not included)... Normal [facility] Comment on above: Result Comment: Elec [...] times a day. General instructions ? Take jfqg-qbt-lagmhuh and prescription medicines only as told by [...] be manag (more content not included)... Normal [facility] ED Patient Summaryon 022 ED Patient Summary (Inserted Image. Claudia ble to display) [address] [address] Patient Discharge Instructions Person Information Name: CHRISTIANO SANTACRUZ Age: 26 Years Arrival Date: 06/06/2022 15:21:55 Discharge Diagnosis: External hemorrhoid Primary Care Physician: Lelia Franklin NP Provider Information Primary Provider: Leah Grover M.D. Advanced Non Morse Intercept Technician:Blane Rodas PA-C The exam and treatment you received in the Emergency Department were for an urgent problem and are not intended as complete care. It is important that you follow up with a doctor, nurse practitioner, or physician?s sales assistant displays for ongoing care. If your symptoms become worse or you do not improve as expected and you are unable to reach your usual health care provider, you should return to the Emergency Department. We are available 24 hours a day. CHRISTIANO SANTACRUZ has been given the following list of patient education materials, prescriptions and follow-up instructions: Follow-up Instructions: With: Address: When: Karan Lopez [address] [place], [place] [id number] [phone] Business (1) In 3 days 06/09/2022 In the event that this physician does not participate in your insurance network, please consult with your insurance company to find a nearby participating provider. Patient Education Materials: Hemorrhoids A MESSAGE TO ALL PATIENTS REGARDING OPIOIDS PRESCRIPTION OPIOIDS: WHAT YOU NEED TO KNOW Prescription opioids can be used to help relieve keosdakc-sj-xatroq pain and are often prescribed following a [...] be struggling with addiction, tell your health customer care manager and ask for guidance or call [facility] National Helpline at 0-470-285-HELP. v Source: [place] [employer] (more content not included)... [facility] Patient Correspondenceon Patient Correspondence [id number]#[id number] D:127 Normal [facility] Coding Summary.on 05-26-2022 Coding Summary. CD:[id number] Gh0 bWw+PGhlYWQ+NQ2WUQAmE28 flMBwyF0AS9zQHH6WBEOIBK KJLN1WLL2vrGM6PLmzQ5Jub iAv LlnpqDQaXW64EUs4HPD7rYw qFYijoW1kkSCaP1y8TwMmFX 81fG67VNqkZCLpAdL2LvZta jsgbWFy T3bsInNxqGLhCev+PHRhYmx lIHdpZHRoPScxMDAlJyBzdH riBH2oTl0hDLUnQKGkzJwve HNlOiBj b7kjHZRaTPwsGV2kbQobF6E dlUD1GINug2j1Gl02fPG+PH IwLJY8kMuxTJvlx405OaUtk 7inVRS5 mBCfIFnvBFD5T39be1F0WJQ oKEUcJDT1hIZ6gL8xpPwpiv wkK8OcnZCaWiT8LKB4pHAgc N1dbKyh xcpnzC1zHqw+D74INJ6TIBP LSM8ORgf3Y9LcHqyilVV+PC 98UZDxGO03uGEyzCRby7lfm Cn0FeYr GXMuQAQ6hQsoSDbkp8TkFVM uD06dmFOre2K3ELGcjZgyxP NwHdDtgQT9rD2bSWrnupgzt 2hvdzsn Xjaqm3rwlj35sU07Z79tPGg aUAFhNRB0MBQiZUDucBfvzb 7whE2xTm9+KIsqk3pam7ins Gg0AfKc KWNmwpMkpAboJDZ4k8FwWk2 0Z7FclAtik4ReEdj3gb16zP Xzo8P3nIO0ZLqkIMAxaN6wH WxlZnQ6 MGGpSvBdtA71lYOgJYxoVm9 xcZrnzHunKQ2vDRGwoyecHM EcaF7hMWCsqYZevDplGC9oQ TBpbjtm i738TyRjUUZ7SCJadAIzI7Q cvU0vHmUzISBcSTPqA6JnaW AxGRywT866ZNebLrR1KCEoa bWbB7Dn JVRubSdwZbT5m6F1Nr5Nw7W pdrwmBPH0KIqgPWHaKnR0Tq WcKiU3K5NfLna0MSLkvIevV C8gG4Nx XUEzzmohdpnpiJN4KMNoVKA xgX15gNGdWMnnKz5uo3H0w2 11UJCfOAEzgK09Rm5diJzhA TBwdCBU uM5pbecoc2tfseioIsIxAFP qCSa3MSe6QPDrkQruDeJrQR R4IyR7DTD6gGCxpH3mpJhfo mjzwK1z Oyc+T33bgV0yQHU3FKA0scv vYURuhxPxLR24AP34I2YhIi wvdGFibGU+PGRpdiBzdHlsZ P0zKnFt q2plj6WpHEjhE4QzSQOnEWw vUdk4XLEmWKC5xQV5pG8nGS XqXYlez1L5rST0B7OgfdTtl k4ok4eh XHRgHWhyL04vqQHbv3G4YIH wyJJ9EMHwjNquRjHbsI17Ak c+XDMohXugq0GtFzfpu2pgu 0qfkWz2 GzZiSHRmbaDhfVniWLZ3z5C jDy44P16aHDkzEXPtZBThUD LuRNVkgSgitg3krB4tWf0+P GNvbCB3 vNL6oH9sOMFeRzQ6MWofN40 6ReNdpOOfFhcbr5fkk8szyC w0MvYyKBSwonHelBsoSHJ8l 4FcPq11 P46tLOkjTMQfTDHmDDClOLU wnMegav1ciH6gHg7+PC9jb2 bcbu86bD26pBS+HPMiABA5m WxlPSdw IDTmjW3fRJlzNgY2DLQaZaD yaC18cPRmEDsfSh9rxQbnmY ndJU5iCIUpyfdnv829GzMyx 2xkIDEw dTRvXBijCRQ5R89cn6V3BBU pREMtPYE2fJH2vA7heWasvo ogbGVmdDsgdmVydGljYWwtY EazU961 IHRvcDsnPlBhdGllbnQgTmF mTTq8F9SzWlg4MBZxvJpaRY 1jcRRxRLiuEy1doJkiaEduX H8oYIOa ufcgf496YtEin6whJJAtsOV wKYmfRCR2K11mc9G4PSXeQE ZfHKO5fUI5qJ6hzHardjxkp GVmdDsg xoHxeAweLCcxHOlgR859SNY tnScxIyAiowLlVTFtsXZ0MM 83YI77eGJhp7Y9gZZ8W7RrB GRpbmct sbnhlLR6OMZeKQVjxU48Wm4 zmEoiBn3mZEFnTCK5LLBzuL BgF1PaqS3lAqXzCAKbAJBfC 3RleHQt PQjpL015JFqrFsK2FEIupfI lG8WaASXciQvuKjZ5v2W2Fh 1OP0L5VF76IP45nFSzj6R3j VL0V0Ow MXFgtifuxwoyaMW9HBNqZGS qfB52Vi9ocHdiAs0fFMAcNR T2XOQxqDPmW0XefS7sLpDjO DAwMDAw H0RybGYbAKotT673PTqiAcA 2NOYnqjHkM9XrFQAtdVtnIb E6i9M2Yn7NHNf6GZ04KL31u OShy7W3 nTL6G0MfFGSrsnlcsjrriUE 3LXYoVLSgqU26Sk1hzHqaNb 2vLBPeBKH5KEJbsWLlX3Yke L0mKwUm XSOqCFBnU9RarSYdHJhlR78 0JWnaBjD0LPQtmfOvD4ZyKN PicDorGmR7h0C2Go0PCZEbV U69TAF1 oAQ7SW48CC07I5PjEiovqOO ibGU+PHRhYmxlIHdpZHRoPS tzWASmGxOkpQxcFN6gZh6nF GVyLWNv mJptyYCcGwQrx6wfNPYvYAz wQD4pbHacO9ZuiED0SJFqk0 m8Nd41W60xZ7LfiAT+PGNvb ID7bGQ5 nP9vGpDhWlG2VJivW177InD pfHGhZzkgc1qkk0xxbJz7Ea W8GTRarqQihMlyTYA9x0RsH k54T08k IHdpZHRoPSIxNSUiIHZhbGl xic0cpZ8uZx6+RAGywFM8cZ W3zL5zHdPlUiA4EXhhS496J nRvcCIv Xgqnx1oqh9fryQn8VwDkFYD fnoMwdCjcZCP2a1GlGs04Z6 DejMzvj5XkOql9kq48xHUbe 9C6rQO3 C9GiYUFgmqowaXOiqWiySE1 yNKBdcogtRZYiyR6uZFNmL6 g2CfTfKnJ1AUaqC9HuolQ9G DEwcHQg IQwvRHV6T32zh9P5DSJiTZD wGCE8qHG4jM6ofQjpnktdhK VmdDsgdmVydGljYWwtYWxpZ 246IHRv hPtaYWGggK1dIZNcwUBhxZz cDO5iKJHjjaymKurBYogkTC aJLxCJJD22XA41wHBiv6G3g YW4Q0Yp QTFuhesuffewmVV8FBJzJWK efZ88sILlESofKe3ke6R9n6 12ZEIrCTYxdA97Et0hmAsnV TBwdCBU cO6wfdrgj2wdbfmiWmTpJKY aAAy0HIw4MUTuyHwiApCyYA D0BjV9QZV9vVEarI9kxSwbt iyniI4g Oyc+ONWpElNqZZw3CIsnjGM +HKYvSHV2bAidLCbiUUWprT 9gNELfQ7c8QzLdIfD4MRajM 3BhZGRp dfwlVr32pV9tVtKaHtT9AVc sL9EekyA2JOIywXQsHKnkND Q3L11oz4Q1XBKnPRDtTRL2a PT9nY8w bGlnbjogbGVmdDsgdmVydGl iUSnhRGwqB857YQHvxQgaEf G4CIedCVDyHR43KS13vHSep 3U2wRU3 H8HyJFVlbpeqqgpfnUH1JYF iONEzzT93iVNlEYzdIn7de9 O4a323QWLaWJCrbE08Ro7pv DogMTBw bFQJhZ3kvwfof2zfsjxoGqM aCSZoBEw1GEw9PMYseMtcXb AzESJ1UsW2NCQ7uMStmT2os Glnbjog qH5fPwj+TWFsZTwvdGQ+PHR cSJR0vHteFUvyKIWjdW7rAJ PnW1e9XlUeVoM4FGqeB1RtB GRpbmct Vb82rG8lRgAgCaQ6EZtkX5C arcP6BBVtyYYbHGsvLSR0L7 5sd8A5VTCsFDMnWLB3zGW3l U3hsTvb bjogbGVmdDsgdmVydGljYWw sIHthW931MWHqyJtqMfKccX 4gTWFuYWdlbWVudDwvdGQ+P R88ua03 G7RaXjywRif9LXPzZYQ6yRK 2oJ2wFLIoKPrxq6Z9qHI3U9 GmwsPksb8fk7iqUYXbKPdqM 29sbGFw j1I1HHAsbHR1DLLdpAorVkL rrQ73Yzd+QMNyoXgrq6CcUc ypb3jht8tuiMy8DwBlSARlo mFsaWdu FIQ6l0OcBk85A91uZErqYYX jLMMxWYLrWYWchJrkos1ueS 9wIi8+AOEhzEG8nDW4sZ4cU jAlIiB2 WPuyM038XzUavYEbCayhk1t aa3jtpJz2MmOsVVZczmKsfA mkSPL9o9HgBm38S3YgdQrqz 5YrChp8 vr25fJQiw4C7lGY2C1AkSDK hklcuoMUwqZdlFC5sEXPinc gaSMUvhE4uTYCzV0o2NgOlB mL8PRmp O6VyirU3OHQpwICtECBmzDZ UpP1cufuca7xvgxjcByXsZU DeICb4QJe4UTDjlCevQoVpF DW5SnF5 DEA9tWQxrX3yxBcmlpyxmK2 wOyc+PKl4k4gxcCPxYM4enM K6XF01HC38cEMol4I5zYE7Z 3BhZGRp mddncoulmVB1SBOeRROymP0 1Iy8sfPbaFs9yLVXtMHI8SE GaeFYuK2ApqI3wGeTuTTCbS LDqO7Sz pYAsAGllB012GSyxUuR6ZNJ midApO0FoFVRfrGtbAnZ3n6 S5Uj7RPJ48RB19HL35rVPdy 6Z3iSX8 T6MaMQFipdkkrhgpwMN2SIA lDLSmdA07Mx0qvOiiFu4oUF ElZAW6FOTfxQEgC7DpvR3rY iAjMDAw ZOKsD7DsvHRnDZviC840HZb oMdY8PHPgneTgZ4EiDMDbqP wpBtL5w8A5En1UAf77IT45O B06bFCy x5W3gGF0W4QvDSDfiueisbo wvCM5KIRvAXHhwH41Cs6jsN jyNe2nOWRsGKG1SMXvyUNlV 0FtgJ4y DxBxFXSuZHCpC4IxkJEtZRo rS911UTmqGiM3SAMrhoVtV2 HaWYQifVqhJpD1y1P2Yb2WP Xllcjo8 P9HaZmlbuTV+KP88WCUjAV5 0jNEtwKBkq4wumMo0WoMgMJ VhJEW0dHqoTDgcq3NrZKCgS 29sbGFw c2U6 (more content not included)... [facility] Coding Summary.on 05-25-2022 Coding Summary. CD:[id number] Gh0 bWw+PGhlYWQ+JL2OWKHeJ64 cqIMktU1ZR8tMEG8JUGDSWN BSXJ3YPL2tpPG4FEkgQ2Tdg iAv JuhlwOOkYX73WVn8RYF6wWr gRFbjrT1lbOHwH9w3LcPdTW 19fF65NKsrNKScUpH9JkGsd jsgbWFy N6tzNgYduQPlWbl+PHRhYmx lIHdpZHRoPScxMDAlJyBzdH whBZ8cGl6rVXZxDVEviXsrw HNlOiBj y4yjKHZzFThdIN9ptYpwP7B smXK0TWHdt1j1Ah15pMV+PH WoYZE4kGuoUCkvo874JqGqq 1ycZII8 oCEuQAikBSJ3N89qw9T4WMN wCHLiKVK3pDP8cO4suLzips ftF7YqtUEtMcK8KVR8bUAuu P1bfKzy wqijbC9fEpr+B15CRN0PRIW GZN8LSfa9R3LbYiwfkRN+PC 65JQOoOV59zHWkeVOje9fnt Sp0AcCn RZHaZGC6bJplUXmkk4XkRUQ lP77gsQLmv7Z2VHUmnFkwdP SwJpKbfGA2tY3qMWbohhutp 2hvdzsn Sbpqp5sfhi72tG39Z27nDYb qJFWaRWR2ZMHuPZKqtXemzy 8giZ1fUz2+POxxd7jfr0sct Sk0OsYg XNSukvZqyVxgSQB4g3GyFl5 2W9YdpLkxb7QxFzj3fy61mY Kib5Q4eCL6PMkiLPYmdX5uC WxlZnQ6 AMCfQhIsnW56wLOaSGmrOb3 cmIrziYfdJW2dSWFrrzreBI IfjZ9cHHKlbYVusAahAO8dF TBpbjtm a969DwMfRSN7ZLQhpJXfP6G yxY8mGwStQWUrDTIqE1LeyU CsHTmaV165LUknMbC7NCYnb kWqA1Ux GLTelHprOiG3m3J0Ek9Lq2N njbyhCDZ1TYobYDOxXsN3Po QoMfK8Z8LeIit3LIPcnTflC V2cE2Je LAXwqipkmbdakDR9KCVcUYI caQ70zLCaALxrJs8ko8G5e7 17FCVlRJKhkJ52Ga9rjOxrX TBwdCBU gW9kqtoei6lidrxePyBqVOR bMYz2PDn7JXGroPbcYgJgNQ U7QsL4IOE5xDQtpZ5irHyhk nuwmE3f Oyc+K49xvQ3lDTT8ITD3ivi sYVLfgnRlMW90GE03B2PxJg wvdGFibGU+PGRpdiBzdHlsZ G5yDuEx e0zvd7QiIXyzB3VzFHOpXYh nQxn0NVMoGAT6tAH7kF1yLG DnZDtld7A1fPY8J3GoqlAze b6os5zl MSIjRGwnB94qbAKli4T2ZMQ cdNR8UHOweNfbMuYvpY07If c+OUZymGhys6BgDouio1mmf 2ahjXz1 XuFiAASwipOuwTirWIV0c3S pAw29A49oQPwaSPSwJWViFG EvXFDcrLkeeu5ezP7jFp9+P GNvbCB3 dTF0eY7rBSMnNeP9QKlsO41 0BjAxrNDkTrmfg9oaw4uplL p8WlOgWXYhxyLrbVloSAO1f 6GdBf51 Z12vUPonBQHzVFZjSWPaUMY jmWavnx9xaT3dOe2+PC9jb2 ehgr65vO23wYO+MAQiOMV7v WxlPSdw DMJkbA1pUIrvBrD9FLXmJzB jeP65kMIsVJwmRu1iwRfiqK ueFY9uLAPurcvog636PaEiu 2xkIDEw tBTsGVijTQN0W57gv3B4XTG yJJLgNQU3yNV1fD1wdGlrdd ogbGVmdDsgdmVydGljYWwtY IowR943 IHRvcDsnPlBhdGllbnQgTmF fFSs9V2QrRrg8BAWlxGvkWV 2ibJNgGEygFi5vlRzpjBneM R4uBNGw tfwca299DjFlt5ncZSZvaRZ jKPhbKSZ5C61tv2A8NEHhXL ZwXVH9dNW4uW0bnJomtehpp GVmdDsg bdKpgTvrVUolOYsuZ282NPX ghAcnFhDtbjZoSSZcoOJ0TW 95HO97xVFkd4F2cOU4K8MdZ GRpbmct dhfgaVG6GAMqCGTbvA86Ib4 abTciOl0hNXFbGJE6DQJnwS CeH7SakT7vBtUcINFeRXZwU 3RleHQt TAzgK311YCdpVrZ7NOEixkH rJ4LfJRGpvStsXzE7c9L2Ra 8HJ9G2BD50QN25iJVrm8O0j CC0Z5Sj NQOjgpibxmtpyJN4TOJvRGB qtW50Yi7woEfgQh8mVOAsGM T3WWAlaIAwU4RnbW1hGpMvM DAwMDAw G2IoeSBaHAftB982DXbaRpP 0TNOdzmPgO9RgGDSkgDkcGh T9w0E9Vy3CISy3KG28TG25i DLvb2B6 vWP6R4WoNXPxgzhklpxnbYB 5UBYnZKMrjS97Gd7snJeyCf 9jVEHqQKN5ITJzyOYjM1Mlf V5zSeXw UCEzEJJsD1RhxRDzESjsE18 9CWnhVfF0RUKxdlTrJ0VuAZ JuuNitKeR1d7W2Dr3NSLGrG F03DNR9 wAD1WX01LH01T6VqRnmamOY ibGU+PHRhYmxlIHdpZHRoPS wzOTVmXmQpuBtkPQ5qIm0vY GVyLWNv tOefgWRlApEro1mlZXTjHUo xWL0vfUwsI7LbcEV5UMUpz1 a1Xh91L30jC0AjzFN+PGNvb BX1mFC7 qS0fUcUbLeM3FUgkT059FhV toIQxWkdwr4yeb1onyEc2Po N6ELMsxlTgqGxoOHU1e5QuN m98S26d IHdpZHRoPSIxNSUiIHZhbGl fsp1tfB2tFn7+HJThyDO6fK C2uR8tTdNrRdT1BVtfL915Z nRvcCIv Xwlpm9uac1ushXp7JkQkXRI vsmRsrDizCSO8z5GjGc69F1 OmvAllu3BqRww3kt10uILat 3D6dHP6 T3BiDPPkfnxfgONarVifNG5 rQBNktduuDNFjwJ8wHXGdC0 b7FdSeCmK7YNpuG4GtvhT6P DEwcHQg ZUrePOL2D95qr9J6BJCoFWD dJQH3zQD3eO6euJlzmsbldE VmdDsgdmVydGljYWwtYWxpZ 246IHRv vNtqGLRbiH8vGOJodFXqjJq aGH1oENAdmrzaFgtEMyqsCO wEZmIZQX98HD05vFIyw4B1c JA0C9Ew UOZcnprrollgnZJ5YUEpRZD gyN50dSZsOSmlVz5ht3N1x2 52HKUxGGHezL81Mo9soIwvZ TBwdCBU gZ1uxvydr5zonelrTuXmSWB fAHw6FXt4FKLkfBqgAmQrVI Z6KyR2OSP9rYQyrL0gvIide htelG4c Oyc+ZTRjZpShIIq0BKuafEG +RLIySYR9jHadLEioKWQecJ 4fZWTbB0i9BgOxHhA4VVurB 3BhZGRp lnfrHx73kP0cXcSeZjK0RCe aW7CcfgS0CPBsnREjDNyxCG M1W70gu6S7VCGkBWXrQHN2s GO5fC0k bGlnbjogbGVmdDsgdmVydGl fEXirCZsoO720IDVdhRwuFh E2BMqwQUDcIJ74MU55dVXyi 2R3mNC4 C7PyBWNgfdoxfnfrxQM1FMO hIBSogT18eHUrDVacQy1af0 V5y725LTPjGJPztZ70Gd9ci DogMTBw lTGIwV4jojmag4jtqntuMlL mIJKwMTk2BRd7XZFvgDzyZm ZgBNK5FxE7VDU7hZEpoI7mw Glnbjog gR8nGik+TWFsZTwvdGQ+PHR kZPP9wKnmATxyZIYswA2dTT WjR0m8ClWiVyL6YSptG0VdM GRpbmct Su02tC3dAzHxFmN7BTpfJ7R hznO1ATDelLLaWAhtIWP3R4 8ho6B1XSXcENRuTEW0fXO0w O7ykIuf bjogbGVmdDsgdmVydGljYWw gNWadK685SKCcxFpeGi22bL UbxDtrpuJ6L3WkZpapxPW+P R31PLIf UM37lNHfyGEje1icaQs2TpK nDAEyBIH8gPwnUQlmg3VbGK TiI09xdDIpr4I0GITtmRoql HNlOyBl nJU7sM8tIOoftdfae0wfrdn zAlnmd0yhfd08uQ18Y56zGH dpZHRoPSIzMCUiIHZhbGlnb q7tfB0u Ii8+RSIusOB2cUC3pT6vFaA qQcH9FHdtD505LhZdqTWbEt ldc1knv6zvxDg8VjBcOIYoz mFsaWdu DHD2y5ZcFm40K11zQNsxPRZ dCBVfDDWyGDYgzMdjda9ldR 9wIi8+RZ9hq7typf18tH73f HI+PHRk GXD1uBlrMLktCZMzlU9iMYr lSpE5BUDoYkNotF00gOIkMF pfAq4suBekaAetMY4mFTIxb kmdm443 XfVaz5vqTNTdyOLkNWqqWLN 0K78va9I9CVFvXCPoDPI2dF O1zR3ivKpnmnkzfVSeyBkvq mVydGlj HJyzMOrzE895NAJllIebQbA oqPEgR5sourSJWY0aIpwwhF Q+LZLmVVQ4yGfgWLhkUDPyz J4uFDXy I7r5XeBwUhX0EZpmE2UwnaH 2DDZlvYWvCEZowTCCjG7fgh lta8iglqrjMjCrDJIpOIs2H Ax5SBGy kJzlEwXwNIJ7RkK1NWK5yVG dsO9tuBpsxdgsaC0jCll+Rk lOOjwvdGQ+BYMaOZR2vBfbR SdwYWRk mD2mOFFcJ0x2SpBnOwX1JAj wY7CrgmX4MYChsZFdVEArtJ VLsD4tstqyn2xxwalkRvXwC DAwMDt0 AOa8ZHDadFszFaEdYJH7MyJ 7DGR6bUWjzD3hvUxufeljeO 9wOyc+TVJOOjwvdGQ+PHRkI GO3nMnl JJioTUYchG6yTQPsK9u8YdY bUkW2OXyxS8FywdC1ASSeaR IrGPHpzOQIfQ2xozoqg4fkj jogIzAw WTKmYWm4GYp6KUXebCjzLvO sSBM4PaO0JNJ1nFFjoJ7qqT ztydddbJ9gYiq+PWO6UHS9C R01TF66 J9UuPgxcjKXafEU+PHRhYmx lIHdpZHRoPScxMDAlJyBzdH qtWQ0aVe0aWVCuQKGzfFxab HNlOiBj b2xs (more content not included)... [facility] Coding Summary.on 05-23-2022 Coding Summary. CD:[id number] Gh0 bWw+PGhlYWQ+AJ5EWXDtK47 pfOKdhY0OY9sNFS9JIUTFQA UORQ7FUW1kzVS3IXgoL6Fpr iAv CkyumFWfNN22FJf4FBF9tEr yQOtqbG0yfCWqD6h9VeOsDO 26fF27BOnpFTOuMtO2FqYdd jsgbWFy C4nxXrCgmMIvVbt+PHRhYmx lIHdpZHRoPScxMDAlJyBzdH vjRJ2yDv4oLRKpUFIqxUknx HNlOiBj j7ljYXXcLSksVF9nuBdgA9M feVQ9DAFqv8e4Rr78fPF+PH XjNHG4vGzbIZair245UhQkh 8olEAV8 zUArYRhzQUX9E64vs6L2QWD nPTZgGTY2eKN3vF4ppEltvx wxE9PraKKhWtN3CMU2vHYts H4yjNha vbygkL0qQxt+E96MND1JDQT SOW6WLoq6R0HuOurtrQN+PC 13ZSFgFR22oHCksZGei3vtp Nb8ClUl UIXrMAD3dSzeQPumk6UxTXQ pW87hxENxm6I8NUVhgWmsvA YyMyNvvXF6iJ1lOTkqlhlpp 2hvdzsn Etytz1upow94fS90C97mPLc kUBLpKFP9YYCeQCUggSqulb 5gdG5cCn5+VEfkj0nsr1nws Kd3PkFj WVBuqqYsuLhpDWG3w9NkKk0 0I5VbvFadj0EwAyj7qd71dJ Fde4S6nQX2WWzlDOVxaH6vS WxlZnQ6 GSHfXuPhcP99vXXcICsvFy5 jcTetaInlMD6kQABiohcmZO TxhO6pBEMqmGYhaTysZS6zH TBpbjtm r099TvErVGV0YRXabTLpT3L fmS6lEqQwKDEuGTEyA8TduU ZySJaaJ833VRxtQsF6XHHsx kYbW4Pw LIPdxQloBsK4y9Q1Hj1Uh3E qrefhXSA1YFegJMSzMbZ4Dh OcOkU1D9JoPmu7VMCzuLdxN N6qB3Ld ISYxdfhfljqmgCY8KQSrLLW avU30pLItRSmkBf7xk9P6e1 32LVLxCYLwzC90Tq4wpFhvV TBwdCBU pR9qajfta1yrylolCnQgFOP mHKy0XRe9JFTxxZpuUeVyPI V8VuJ7KEE1qCFtzA2pcAgrd eympG8o Oyc+Q79joC5xSQZ7VML1ory qOJGtdkRsRZ75OY74B6HpXq wvdGFibGU+PGRpdiBzdHlsZ Z4qRqTo j4qng3EqGMmjL8LfAULhBNw lXub2DGLjKVJ5vSB2iJ5xXA MuIMxfn0K5gHH7B3FbndOrh h8ea8kg WXCsOIatU94kwYLhj0F9CDA iqVK5THJzsGwvQuRydC35Ee c+FZHkmAoux2NdVcrgq5qxn 7dqkIx8 ZoYeOZWfqpEmmKgpEIG2x6P dXx22E95pCWfnDHSsQVNaVO VqUKPxcAfkow2mgM5sMe1+P GNvbCB3 kRP0dS7sIUWjWaT3MFbeG76 6FiDllPShVsqlm6hbp8bwwM v4OsZaAMKsxnRltXdwKPY5d 7GyZy20 D11aWAigFVMlEBRuSEPaZDU trWqywa4qlG2xCn0+PC9jb2 xgkt53dB46tAB+EVZoOPZ3j WxlPSdw DSTylF5ySEqxObY5BVRjOpP wjB86pMKzNEefRl5dkPvzvF rkSB0nGQBbnmgva140LtLmh 2xkIDEw bQTbOSjsRNK5T41oq6R6YEQ qPHRlLHC9ySJ2hB2bcGwtcg ogbGVmdDsgdmVydGljYWwtY HxdW918 IHRvcDsnPlBhdGllbnQgTmF iXKu9E0SuUua5CSRheWshBH 3ecUOsXLxuWz9kpPjatBivN J0zXTYk qdjkr772VsIbo4faJUXwjAI oSAjaINL0Q52sk4W1FAGjBD GkQUY9qGT2nF3upYoitfvjz GVmdDsg zmPzqVjrWGbqOZotQ902RIN bkJqaCiJrogSqRDMqxWC4BC 37WE73cNAlx5K7bMH0A1WnF GRpbmct fxcpkAR2IOKfSOQbmR09Ba6 jwIijYr5lLZRmYQQ6XRYvqT CcQ3OhvX1yPaHdDJKzPLXhR 3RleHQt SRrcA742YJyzHdH2AUEhaeP bN4LwIDZoyHagQpH3s7P6Um 2UW6R9FA10NN43uVBfg7T0v PA6O9Wt FGKcnewamtyivSB1AQTvQJY xrC06Mp7waUlbSd9tHJCfRF Y1MDDjvOIqU6StaG1iMxIwR DAwMDAw W6FmaETvOTxgZ345YMfcWmC 7DASxseHbW1AzLCKlaQtxGn J4f9V2Ei4LXSg9FM36JO65f FNev3T4 vIQ3L1HhJXYexqazaaflxJJ 5QCRbXXUtqE74Sh8yuSrgCf 2fXCEpMQO8TXYwoQQdE4Vrb W1sMkZv CBAuRDUsK2XnqQLlLTfrV54 9GQmbMtU8JANpnuDkQ4EgYS KeeQjbSoC7r1R5Lw4OTWZiN D14QLC0 qPE2PE68MZ10H7JfHwlynXS ibGU+PHRhYmxlIHdpZHRoPS feOOPlJeHseRssGR0yDh4cM GVyLWNv rUndqJCvGlFzd4rkQDXiUWk cYK6kuZjbP0DbqKP7SNSrq4 k3Cz85O82wH6RevJC+PGNvb OO1pMR1 vS2eZhGzBbH9RXwgU888XzJ ayBHiLlzig6fqn5aseUn5Ex R3LEVaggLtsSfnKOB9p9YjF g38R60a IHdpZHRoPSIxNSUiIHZhbGl yri3tmL6oFb3+YZXmpFW6fM P9jA5bQsQoXkC9UFdmV309J nRvcCIv Iuser0yve0ipsNe7ZeXhGJY mwhGemEvuKWN7f8RyRt05P8 XmoRdxy4JqEbe7lp95yANce 2B8aIQ2 W6MvVUVpmvmkcCSmtWewVN8 sWFSyhjxeRRPsoO6pXQMcV3 n1TbEqGmD6RHrrM0WjfgG9A DEwcHQg GLpwBUK3W33bo6P3ZENyBXW fINO1yPD8xA2gjGorsrsxbI VmdDsgdmVydGljYWwtYWxpZ 246IHRv sKcoDIKwbQ5wBBEthCUjqBn gOK9uGVPkzbweXhoXNzsvYP tDMkMUNQ27IV80bRUxi8W7f FD3M6Gt YSRbvtezkbiidCE0XSSiVDE fxY25tPVsMYuzMy0nl4N0r8 19FUAyUXFagG96Bv6ycLrsN TBwdCBU hV3wmorvk1tmkqusJbUuDQY lEDf6OKo6MDMzxDjxMsJxIL L1DuC4WVH6fFWvaV0ajGqil mdjbS8y Oyc+TKOiHqUzCLy6OZcroCW +WGVlMBW2sDxrPInkUVVktO 9fJPXnY2d8RcBwKuN9QRiuV 3BhZGRp tqxbBi07wA7wDnAuTjC6SQu mG1BydhH9IGZzzLEfURscZK O4W05us4Z7HVUaNUDvTOC5x YS8rP5o bGlnbjogbGVmdDsgdmVydGl jWMvlNSngJ279KGGtaEloDs U6USlbKQQcQQ45LV95nLGli 9U2gLM1 X1AySSUbfkoddwwwwTY0MFQ fCMCmsS27kXHxYIghVi1hz5 Y3l706FGFhOIIncR04Jh6pa DogMTBw kAYDiK9bmixec2ujqawzGaW aCARpFEc2LNj7WUQhsQeqYa HzQJL0DaV8TID9mAMhnV0rg Glnbjog jU6oDgr+TWFsZTwvdGQ+PHR cABQ3rTrsXSchQLLxaA0jYB VeH8t0JxQpAlT6TXkyI1FvL GRpbmct Al41zF5rVbVvSgN5OYdfX7W hijO1YKFdwYGhZCzyVFH4K1 9gb3L4BWFyZDNvUTP7kRF1m L2ziCgk bjogbGVmdDsgdmVydGljYWw yDWxsI715BTIaiDngCbNrHO ZfKK3wmBkvzXT+QL93dp72W 3RhYmxl Dyw3SFAmNQM4jQL4gR1lKCS qUUwyx0L5zAD7X7UugcFrmq 5ye1vdWWYmTUrxN50qvBXma 8V6SPAc fFD8DZCmnDekCrFdhK21Szo +SIQspZldc5CiElnql3beg7 pubRv0BzSwDMTyujMshQpeD ZL2u7No Ge12Q76kHHwgOAHlOVWuWWB nUYIfpRshfo0akT0tHj3+PG QfgGZ6sHT3oR9eDjEqBeM1P FqoY800 VkWilNDfNchob3zjg6bwtLu 0VlIdPWVinlLhkXhvIRS6o3 NxIe49V6EipDzgb7HrQcf3y n92rFWx e8V6iLJ0X6WqLTDhfdmphSP ptPetYG3mEXFmctagBCTtzO 6gEFCrE8x9AgKvDdW1OQsuR 0TbnrH8 EICflLYbANZggGGEqH5mtux vn0rgoebwLjWdDPVhWCb8NV c4OQSbsEecRgBeLGX4IuU2O RY8hOWx qH3ufLhrjwngeW4sClc+UGh 6l4dmiYCrRU7ubVB8OA26VH 86bZXxx2O6qJO5F1VbDHWpb mctcmln iMC8PLDgVZFtjV17Ll9neAh lFx9vXYEyRZK2FFUkuYWkJ7 VikJ8lSiHcAZAuBAJzH2Wzk HQtYWxp C147AEfdEaP7QKVelgIgJ8M eIONsfXsiGvX5b4Q4Mv5UEL 56PJ17MI59bEWdv3F3lHC9R 3BhZGRp cxnmiqnaaJR7SNExERYvmH0 3Wc9vaMxbEx4sCYYfTDM8UC RsdFFoR8PyxA6dRyGbQVOkP UIgF9Wh zVYuMBhfI192CSczCuS5RVO sauJvA3PuGMOmaEmkFmA7z8 D0Ps6KSp40FG76FJ09tMGbs 6D2fGE3 Y7TwZGZvmhgrtrwyiGL4AGW iJMBumJ10La6jqIplTp8yVU HyGSZ6NAPleUEzG2KloZ2kU iAjMDAw ITBhQ7WmmVLeFSogJ961IAp qXdU7MOIzniFsC1SxWHJjuQ vhVfQ7k9V9Jv2GDOqpjru2G 3RkPjwv dHI+NW68IMEmQX13gVFasYM dk6satXb0GqMoFUQhGUB6wE jdCWumi5FyJPQeX66hbUYea 1K1GXQk bGxh (more content not included)... Normal [facility] Consent for Treatmenton Consent for Treatment [id number]#1.00C D:127 Normal [facility] Consultation Noteon 05-23-20 Consultation Note Patient: CHRISTIANO SANTACRUZ Age: 26 years Sex: Male : 1995 [...] Daily, # 30 tab(s), Refills(s) 1, [id number] 178, cm, 04/28/22 15:31:00 EST, Height/Length Dosing, 79.7, kg, 04/28/22 15:31:00 EST, Weight Dosing Vistaril 25 mg Cap: 25 mg = 1 cap(s), Oral, TID, PRN for anxiety, # 40 cap(s), Refills(s) 2, [id number], 178, cm, 04/28/22 15:31:00 EST, Height/Length Dosing, 79.7, kg, 04/28/22 15:31:00 EST, Weight Dosing benzonatate 200 mg oral capsule: 200 mg = 1 cap(s), Oral, TID, X 7 day(s), # 21 cap(s), Refills(s) 0, [id number], 180, cm, 05/19/22 10:12:00 EST, Height/Length Dosing, 80, kg, 05/19/22 10:12:00 EST, Weight Dosing brompheniramine/dextrom ethorph/phenylephrine 1 mg-5 mg-2.5 mg/5 mL oral liquid: 10 mL, Oral, q4hr for cough and congestion, 118 mL, Refill(s) 0, [id number] 180, cm, 05/14/22 19:45:00 EST, Height/Length Dosing, 79.5, kg, 05/14/22 19:45:00 EST, Weight Dosing cefdinir 300 mg Cap: 300 mg = 1 cap(s), Oral, q12hr, X 10 day(s), # 20 cap(s), Refills(s) 0, [id number], 180, cm, 05/19/22 10:12:00 EST, Height/Length Dosing, 80, kg, 05/19/22 10:12:00 EST, Weight Dosing cyclobenzaprine 10 mg Tab: 10 mg = 1 tab(s), Oral, TID, PRN for spasm, # 30 tab(s), Refills(s) 0, [id number], 178, cm, 03/28/22 14:15:00 EDT, Height/Length Dosing, 83.1, kg, 03/28/22 14:15:00 EDT, Weight Dosing predniSONE 20 mg Tab: 60 mg = 3 tab(s), Oral, Daily, X 5 day(s), # 15 tab(s), Refills(s) 0, [id number], 180, cm, 05/19/22 10:12:00 EST, Height/Length Dosing, 80, kg, 05/19/22 10:12:00 EST, Weight Dosing Problem list: All Problems Anxiety / SNOMED CT 49092150 / Confirmed BMI 23.0-23.9, adult / SNOMED CT 5684836777 / Confirmed Cervical radiculopathy / SNOMED CT 204334452 / Confirmed Cervical spondylosis / SNOMED CT 7545954082 / Confirmed Constipation / SNOMED CT 14107845 / Confirmed after GB removed Difficulty swallowing / SNOMED CT 29927108 / Confirmed Enlarged tonsils / SNOMED CT 743126743 / Confirmed Family history unknown / SNOMED CT 3218987489 / Confirmed Former smoker / SNOMED CT 18154911 / Confirmed Hearing deficit / SNOMED CT 14751053 / Confirmed 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 / 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 / Confirmed History of neck pain / SNOMED CT 9344199396 / Confirmed Hospital discharge follow-up / SNOMED CT 3236251810 / Confirmed Insomnia / SNOMED CT 871788391 / Confirmed Lower back pain / SNOMED CT 491488448 / Confirmed Medial epicondylitis / SNOMED CT 45134625 / Confirmed Muscle spasms of neck / SNOMED CT 5056339729 / Confirmed Non-smoker / SNOMED CT 50579020 / Confirmed PTSD (post-traumatic stress disorder) / SNOMED CT 70513628 / Confirmed Screening for cardiovascular condition / SNOMED CT 854860190 / Confirmed Splenomegaly / SNOMED CT 52223855 / Confirmed Stomal ulcer / SNOMED CT 9121788862 / Confirmed Testicle lump / SNOMED CT 950564628 / Confirmed Objective Vital Signs 05/23/2022 14:51 [...] IMPORTANT. EXAM (more content not included)... Normal [facility] Comment on above: Result Comment: Elec tronically Signed By: Jenifer BOGGS, Sen Dodson\.br\Date and Time Signed: 05/23/22 15:07 EST Office/Clinic Note-Physician on 05-23-2022 Office/Clinic Note-Physician [id number]#1.00 CD:127 Normal [facility] Patient Correspondenceon Patient Correspondence [id number]#1.00 CD:127 Normal [facility] Patient History Officeon Patient History Office [id number]#1.00 CD:127 Normal [facility] ED Note-Physicianon 05-22-20 ED Note-Physician Basic [...] day(s), # 20 cap(s), Refills(s) 0, Pharmacy: [facility]/pharmacy #[id number], 180, cm, 05/19/22 10:12:00 EST, [...] Information Lelia Franklin In 3 days 05/22/2022 [facility] [address] [place] [address] [phone] Business (1) Additional Instructions: Patient Education Otitis Media, Adult Attestation Patient seen and evaluated by the physician sales assistant displays. Attending physician was present in the emergency department and supervised care. This visit was performed by both the physician and an APC. I performed all aspects of the MDM as documented. This report was transcribed using voice recognition software. Every effort was made to ensure accuracy, however, inadvertently computerized medical transcription editor mistakes may be present. Appropriate healthcare PPE [...] Tobacco Use: (more content not included)... Normal [facility] Comment on above: Result Comment: Elec [...] MARY Technologist: ROBYN Technical Comments None Normal [facility] Consent for Treatmenton Consent for Treatment [id number]#1.00C D:127 Normal [facility] Consent for Treatment [id number]#1.00C D:127 Normal [facility] Discharge Instructionson Discharge Instructions [id number]#1.00C D:127 Normal [facility] ED Clinical Summaryon 2021 ED Clinical Summary (Inserted Image. Claudia ble to display) [address] [address] ED Clinical Summary Person Information Name: CHRISTIAN[facility]CRU[facility] Age[facility] 26 Years : 1995 Sex: Male Language: Kyrgyz PCP: Lelia Franklin NP Marital Status: Phone: [phone] Visit Id: Visit Reason: Sinus Pain/Congestion; Cough; [...] 10:49:17 05/19/2022 10:49:17 05/19/2022 10:49:17 ADDRESS: [address] [place] [phone] PHYS DOC NOTES: MEDICAL INFORMATION: Prescriptions Given: New Medications [facility]/pharmacy #[id number], [address] [place], [place] [phone], [phone] benzonatate (benzonatate 200 mg oral capsule) 1 [...] Lelia Franklin [address] [place], [place] [id number] [phone] Business (1) In 3 days 05/22/2022 DIAGNOSIS: Otitis media Normal [facility] ED Patient Education Noteon 05-19-2022 ED [...] Follow these instructions at home: ? Take uqph-zvt-zrqxzsb and prescription medicines only as told by [...] 03/09/2005 Document Revised: 05/17/2018 Document Reviewed: 05/25/2017 Elsevier Patient Education ? 2020 [employer] Normal [facility] ED Patient Summaryon 022 ED Patient Summary (Inserted Image. Claudia ble to display) [place] [id number] Patient Discharge Instructions Person Information Name: CHRISTIANO SANTACRUZ Age: 26 Years Arrival Date: 05/19/2022 09:54:01 Discharge Diagnosis: Otitis media Primary Care Physician: Lelia Franklin NP Provider Information Primary Provider: Karan العراقي DO Advanced Non Morse Intercept Technician:Blane Rodas PA-C The exam and treatment you received in the Emergency Department were for an urgent problem and are not intended as complete care. It is important that you follow up with a doctor, nurse practitioner, or physician?s sales assistant displays for ongoing care. If your symptoms become worse or you do not improve as expected and you are unable to reach your usual health care provider, you should return to the Emergency Department. We are available 24 hours a day. CHRISTIANO SANTACRUZ has been given the following list of patient education materials, prescriptions and follow-up instructions: Follow-up Instructions: With: Address: When: Lelia Franklin [address] [place], [place] [phone] Business (1) In 3 days 05/22/2022 In the event that this physician does not participate in your insurance network, please consult with your insurance company to find a nearby participating provider. Patient Education Materials: Otitis Media, Adult A MESSAGE TO ALL PATIENTS REGARDING OPIOIDS PRESCRIPTION OPIOIDS: WHAT YOU NEED TO KNOW Prescription opioids can be used to help relieve lflnujif-be-qtvxik pain and are often prescribed following a [...] be struggling with addiction, tell your health customer care manager and ask for guidance or call [employer]?S National Helpline at 1-475-802-LDEZ. v Source: [place] Department of Health and (more content not included)... Normal [facility] Prescriptions/Work Noteson 1 07-20-2021 Prescriptions/Work Notes [id number]#1.00C D:127 Normal [facility] RAD - MRI Screening Formon 1 07-20-2021 RAD - MRI Screening Form [id number]#1.00C D:127 Normal [facility] Coding Summary.on 05-18-2022 Coding Summary. CD:[id number] Gh0 bWw+PGhlYWQ+BG1KYUFbW35 hcWOwlQ8ST2wUWG9QEBGTFG YLFR5BWA6teQJ9VUirW2Dih iAv OhpfjXZxEZ42TZa8IPU5lLa zDUuikS6exNHhY6n5UnLkXT 68fI17GAetKGKhJyX1WtKni jsgbWFy Y3azMqGmdAUyXjw+PHRhYmx lIHdpZHRoPScxMDAlJyBzdH fzTC2jOy1dRANqEFUgdFeau HNlOiBj l4hzJXCwEUsqXY0crCdbZ6A dbBL4LWFfj4s0Kn66vXB+PH IwHRW4bUgqBCjpa306JzMzg 6mtHYQ8 vKZeNNnxKJR2Q95ky4T7CQS uYHEpSXZ1dYR4fS3bbFyntp tkX8AubRBlHyI1NCY0aHZwv F8qpVua tibzsN8oLka+R82NFV1KHEF LJH2MGex5M9NfTuhuuRG+PC 04NOKeRL05sLKxnHAxx2wws Kn0FoYt KTZbVFK8aOmcLQqed5UlIES zA94zkAIul0J7IPWecGwbrJ WdFtAvuQD0tA2tRNefdwecw 2hvdzsn Gufxp4gnfk45wX58D68oSQr uUNDzXGF5FASoYKOfiXbvbq 5vrN7pHy0+THqwu0vlr0whq Xk0AgMu BBRtipDluHwbLKI2o6AwEr8 1S9RmkPmgw7GgVsg4ys65jS Zvo8L8kZM8XRiqBBNjlT2rA WxlZnQ6 SKMvQjUbpY60rKKuXFxcAq5 bpIaccYoyKS4iHMWoolufXC NpaE9tHCMmdIQxgCdtPF1eQ TBpbjtm x014DmOvJQD2FUKqbFYuB8R vyQ5pCkNiSZPmYSQnZ2VwgL WdFJdgQ660OTxpWdU4ROWoa kPfJ6Hy AEAcyEwcKbM3k1Q3Sg6He1D zumelIUX6OIvfGDAhSfFpRc NdBmC8H0QaNqg1KYAukEpdO E0cD9Bw BLMjkcxwwvppnNP6ZFYvTIH nxD56yWGfFRotNm6kj7W8u4 08WUAlEVItpD69Ql9poFatI TBwdCBU vS0fujyko7ymyxycPiZjJQR sAZv9JWl5BPAdzZipBeTxEW R6EbO7XXL7rXZqtY1tvPamp tdnsP4b Oyc+O23zgB2oUKP8CPY9odk xBQKwwrDkNJ39UO48E1ZvFn wvdGFibGU+PGRpdiBzdHlsZ D4yJeOu r7pjm3AbWEdxK2YuJQMqYMc wCdl1XNTwOZY2mHV3gT8jDE TuQEmpg8W3jWO5O7QglhZdz d1lj7xg PMTkXDaoC07lqPIwp5V0IRN qvCO9IWFyzPnyBbHlkI67Od c+MXNunRkgw8EgEdbnh7xfe 2pplBl2 QzYhAFRdueQevVsxHZV0d1B wVt72D15mEYjnARLvLJPmIP CjUVYfcIxndq6zfN0tAv1+P GNvbCB3 wSS6cL7xKCQiWwS4XYqiG83 7AeTiyVMpDwfsa6smn9sjhS l4HjXsRBLwoxLidGhvJYQ5b 5JuGe39 L52jTYijRQYjTXFqOGYqZPI goWlmtq1laB7oWu4+PC9jb2 whob97lX68jCJ+HAHcXIK5d WxlPSdw XFJoqI8kJVelTeB6DNIfRaE whQ13mBLaYQsnQs1ctAwbeM idHC0tCAUdvxxwi689ReEeh 2xkIDEw fMAcKNjiGXJ6K88fm0Y6YEI eUGBcALY6iQO9yX9zoRaqrw ogbGVmdDsgdmVydGljYWwtY NguL340 IHRvcDsnPlBhdGllbnQgTmF bWFz0Y5BiZar2YFOezRfbYY 1leIOwWExzFu0baOcocTeqA U4uMTJu slgzn536SgFma3heWQYolWS uUSeyOYS0I44hk0C6ONHrAM OaJCF8wWO7oA0csAqbygldh GVmdDsg npBkiFigYSrvCXubB963MXO wsJqcMaVaviFhABZvbNO8AP 67HX52mQFsp8M2pHG3X2XgU GRpbmct agzolDS8DIHwVGMojZ42Rk6 tuGsdEu4iVDXwICM4IJSkxF JuH6ChhI7jUjCcDSJuOPPaA 3RleHQt VMosH925VTabXiE6AVMkqiF wZ0UjMXMemNxxZxL9k9U3Fz 2WX0R8KM61XQ80bLWco7T4x QO9I1Ks ZCSgjctmehvlaYB1RQIrEMO trX93Mf1syXauYz7bVFIwYA L1RMBypPIrF5CuoT1hEjYiE DAwMDAw B3SgfHEhGXphB348DJkhUqV 1WHGjnoXmT3LfVLJodIaoAd C4w1N1Np5AVVn7YY45MA82z FQyp4Y9 vQP7A2VbAQPbkrxubjxneFE 5VJGxJRBhoX91Ct4msYcvNb 9zPXIlKYA8PAGhsAGiM7Vkg A3bMcEk BKLnOHBxZ5HarPIyJSnmY57 1PNygVgJ9SXMzluZcC9EdXL NjhEbuEvO8s2R7Lc9TPALfT N28TUW5 vSA5RC82JU10J5KvDqoztKF ibGU+PHRhYmxlIHdpZHRoPS qmHIWyNaOwoMfzPG1yTj7oM GVyLWNv dOmjyJHiRhLlj1yrTZReRNv zJP5voDxrU5KktFU3OKEil2 s9Ti70E69cE6EwdJF+PGNvb SR9yZJ9 xG3mLzMlXcC4ADymL780YqY tgJJzVjfwi2dfn8vwnUf5Ww S5HHRxnzGrsDrfDIF6z4JvC y62G48m IHdpZHRoPSIxNSUiIHZhbGl ggd0roC6dJu6+QVWoaYG1rF L6uO4rCvBwYkO9CFvyC135B nRvcCIv Ewcle2tvv6vhcUm8SyKwREA vxhPrxOtvYWT2e3CcWi37O0 BzgLhkg1MgTdi0ku24jOBlv 3K0dTT2 N9AdHWEwqlzlpJCuqVgmXB8 eHBZlfbhkBAQadO6rPQEdT7 x5RgNjSfG0LLwzA9AvbuE1P DEwcHQg SYgdOXQ0V80ys9B4WNPiSKE pRJA4wJF6gA8gtWzohvmncR VmdDsgdmVydGljYWwtYWxpZ 246IHRv sOcqNVLpyE7rJMWfoQBvgRi dHX3oPDIlywwhWmeESfjcTY hNTfOJJG32QE58aBHto8D9b LM3W0Qc VKFkehqqtkfmfCK8MNFiIIE fiA25tTAcVEcyAv7kg8M8z7 17PUPeQJJnpR25Te0hgTpmQ TBwdCBU hC3sooyee5pgnztjVwKyPZS mLKz5MZd5VTKzrPxdUcGdIC T2NcT2WEJ3sBYedY6jjNmxy acggR1y Oyc+EDVoMjXyQMr4ZUypfLE +HFPgCIC0nVzuELqdCWPcyN 0cNELjO5g9QfGeDyT6BYzwW 3BhZGRp dajqFo86xY5qOpZzMwX0WAp oK9LivuN8SWSqcACgEDdtPB F3H25jb2Y9SIHsFPLhNWB7m YU9fO2g bGlnbjogbGVmdDsgdmVydGl pIFbbJItnB194QARbgHuuXf I9ZPywJDKgYS55DI91hPDog 0E1bZF2 B5IxCNRyekiugrkxiJP7WQB cLGBteA79zZDuFLlpOo6ab9 H1g415ESCmEVJrgU56Px4hn DogMTBw rCRXhE0dshjaa2vkjfsmXuR yFJWlYSm0THu1FSBkdXxuNf PwEUZ1PtB0LEK2cBPngV8wz Glnbjog lI9jOjf+TWFsZTwvdGQ+PHR wNEG7bThkKOhlQZHezD5aQW HpB8k3XaGpBdL6SXkiN3UeZ GRpbmct Qs72jH3fZpNqYbS0KGszA7N acyH7BEMlqHTrHOzyMQA9Y3 7ep4M3PMHaBLQdIAX1nCP1c L3rkTmx bjogbGVmdDsgdmVydGljYWw rLLfiL722ZIZmzFywHaFyGW NsJM8byLoieKQ+JF01od75N 3RhYmxl Zoi6XJIiVCP1cZK5yT0vQKO lVHjwp0Y1lPH1L0NmraYntz 2oo8yiUGKrDXcdW43thGMzk 8L2ZEId xOZ6HCOmyGefQbUibK03Ceb +ICBknVafy8YtWkmvq9ekt3 gcbHg8RrFwNYIjlwZllUxqE CI1z4Ml Ck83V20pIGtkCWSrWCXxHRA wNPCfsGgqfa3drA3oVe0+PG AoaTB7pXI8jN2yWoEiTqI9K KmmZ808 TjZpeVWkYmfqn3mhh3vxpIz 8PxVdKZAczwEzxKadCNH2p8 SyCo16A1KcfYbyf5VpCox0g i54pIZm l0R3sRP8L8CzIETsggkqxHO cwWxvWF0nLAEpundySLZtdE 2vEYGhG7z6SlJiGwT6WEvpD 2NhgxN3 VNFzrWNgKVGgaLWIfF5hpfy xx1ixffneJsMsRAIyPKj3BZ l3XGLxpPynXiBpSRS4TlZ5E XS3pYCj oY4shRsaerbytT1sAbh+UGh 8j4darIXjXP0dxGD6VI99OG 63pYQij2B5qQM9V5AcTSZqt mctcmln eGV9GJYhRHMocR58Be2qvIc vLz5dWJGvNFP6MOHfhCKiG4 EjvA0xOnDmQXFzWLLcP7Fgq HQtYWxp C119ZTzpLqK4GHRvonGzB2J xZIMmlZteUlP8s9I0Uf0PZQ 20TI37KD75aZKdv2E8kBI2H 3BhZGRp xjqdicbjsMP3JTRbPABjiM6 5Cv4ghCdrEe1eJOXbVZZ4OQ FquOHrL2HsqH0jHtYwIPRjB WFzE2Dt wFErTIshY133TNnjDbA3QFV qzuKoH5PaGBWewTnaQpM3b7 L9Fl4XGn68NG07YA69bNLwn 1W1hAX1 W7WzHBExlfwubelchEN6QVU rHTSkuI30Km0doYavNi1mKI UsSSY6OYNhjLOuT9TxaJ5oW iAjMDAw VNJcP0SbsDRbUGbzQ781TRv eCyY8TXIseeZpK0HsHTUuwI nzYyY3s7N3Dp3ULIptdat0H 3RkPjwv dHI+MA42JJLdRE39gWQztPH bq6wadZu7MgVgFNDtEJJ4dD onBGcse8RnAREoX47pcCOvw 1B1QJUd bGxh (more content not included)... Normal [facility] ED Note-Physicianon 05-16-20 ED Note-Physician Basic Information Time Seen: Niko AZEVEDO, Bandar Ceja 05/14/2022 20:11 Chief Complaint Pt. presents to [...] cough and congestion, 118 mL, Refill(s) 0, [id number], 180, cm, 05/14/22 19:45:00 EST, Height/Length Dosing, 79.5, kg, 05/14/22 19:45:00 EST, Weight Dosing brompheniramine/dextrom ethorphan/PSE, 10 mL, Syrup, Oral, Once, Stop date 05/14/22 22:41:00 EST, STAT, Start date 05/14/22 22:41:00 EST Influenza A&B [place] [place]ations Administered Given Bromfed DM oral syrup, 10 mL, Oral Disposition Plan Patient Discharge Condition Stable Discharge Disposition To home Discharge Prescription List Prescriptions No active prescription medications Follow-up No qualifying data available Attestation Patient seen and evaluated by the physician sales assistant displays. Attending physician was present in the emergency department and supervised care. This visit was performed by both the physician and an APC. I performed all aspects of the MDM as documented. This report was transcribed using voice recognition software. Every effort was made to ensure accuracy, however, inadvertently computerized medical transcription editor mistakes may be present. Appropriate healthcare PPE [...] Historical Cholelithiasis (more content not included)... Normal [facility] Comment on above: Result Comment: Elec tronically Signed By: Bandar Pope PA-C\.br\Date and Time Signed: 05/15/22 02:11 EST\.br\Electronically Co-Signed By: Jose Taylor DO\.br\Date and Time Co-Signed: 05/16/22 06:44 EST Physician Orderon 05-16-2022 Physician Order [id number] D:127 Normal [facility] Discharge Instructionson Discharge Instructions [id number] CD:127 Normal [facility] ED Clinical Summaryon 2021 ED Clinical Summary (Inserted Image. Claudia ble to display) [address] [address] ED Clinical Summary Person Information Name: CHRISTIANO SANTACRUZ [place] Age: 26 Years : 1995 Sex: Male Language: Kyrgyz PCP: Lelia Franklin NP Marital Status: Phone: [phone] Visit Id: Visit Reason: Sinus Pain/Congestion; Throat [...] 22:51:08 05/14/2022 22:51:08 05/14/2022 22:51:08 ADDRESS: [address] [place] [phone] PHYS DOC NOTES: MEDICAL INFORMATION: Prescriptions Given: New Medications [id number], [address] [place], [place] [phone], [phone] brompheniramine/dextrom ethorph/phenylephrine (brompheniramine/dextro methorph/phenylephrine 1 mg-5 mg-2.5 [...] Follow up: With: Address: When: Lelia Franklin [address] [place], [place] [id number] [phone] Business (1) In 3 days 05/17/2022 DIAGNOSIS: Upper respiratory infection Normal [facility] ED Patient Education Noteon 05-15-2022 ED [...] these instructions at home: Medicines ? Take zdhv-cbo-mmdjafw and prescription medicines only as told by [...] a condition that needs treatment. ? Take ccvp-waw-rjbclln and prescription medicines only as told by [...] 12/01/2011 Document Revised: 06/23/2019 Document Reviewed: 06/23/2019 [employer] Patient Education ? 2019 [employer]. Normal [facility] ED Patient Summaryon 05-15- 022 ED Patient Summary (Inserted Image. Claudia ble to display) [address] [address] Patient Discharge Instructions Person Information Name: CHRISTIANO SANTACRUZ Age: 26 Years Arrival Date: 05/14/2022 19:32:44 Discharge Diagnosis: Upper respiratory infection Primary Care Physician: Lelia Franklin NP Provider Information Primary Provider: Jose Taylor DO Advanced Non Morse Intercept Technician:Niko AZEVEDO, Bandar Ceja The exam and treatment you received in the Emergency Department were for an urgent problem and are not intended as complete care. It is important that you follow up with a doctor, nurse practitioner, or physician?s sales assistant displays for ongoing care. If your symptoms become worse or you do not improve as expected and you are unable to reach your usual health care provider, you should return to the Emergency Department. We are available 24 hours a day. MARCECHRISTIANO has been given the following list of patient education materials, prescriptions and follow-up instructions: Follow-up Instructions: With: Address: When: Lelia Franklin [address] [place], [place] [id number] [phone] Business (1) In 3 days 05/17/2022 In the event that this physician does not participate in your insurance network, please consult with your insurance company to find a nearby participating provider. Patient Education Materials: Veena Adult A MESSAGE TO ALL PATIENTS REGARDING OPIOIDS PRESCRIPTION OPIOIDS: WHAT YOU NEED TO KNOW Prescription opioids can be used to help relieve dlqzjbef-tx-fgnxvc pain and are often prescribed following a [...] be struggling with addiction, tell your health customer care manager and ask for guidance or call [facility] National Helpline at 6-065-291-YEAW. v Source: [place] Department (more content not included)... Normal [facility] Influenza A&B Agon 2 Influenzae A Ag Negative Normal Negative [facility] Comment on above: Performed By: #### 1 [id number], [id number] ####[facility] [address] [place] [address] Influenzae B Ag Negative Normal Negative [facility] Comment on above: Result Comment: Test sensitivity and specificity vary for age group, specimen type, antigen types, and prevalence of disease. Test results must be evaluated in conjunction with other clinical data available to the physician. Individuals who received nasally administered Influenza A vaccine may have positive test results up to 3 days after vaccination. Performed By: #### 1 [id number], [id number] ####[facility] [address] [place] [address] Insurance Correspondence Off iceon 05-15-2022 Insurance Correspondence Office [id number]#2.00 CD:127 Normal [facility] Physician Orderon 05-15-2022 Physician Order [id number]#1.0 0CD:127 Normal [facility] Rapid COVID Antigen ([facility])on 05-15-2022 Rapid COV Int NEG Ctl Pass Normal [facility] Comment on above: Performed By: #### 1 [id number], [id number] ####[facility] [address] [place] [address] Rapid COV Int POS Ctl Pass Normal [facility] Comment on above: Performed By: #### 1 [id number], [id number] ####[address] [place] [address] SARS-CoV+SARS-CoV-2 (COVID-19) Ag IA.rapid Ql (Resp) Not detected Normal Not Detected [facility] Comment on above: Result Comment: The [employer]? System for Rapid Detection of SARS-CoV-2 is [...] other viruses or pathogens; and, in the [facility], this test is only authorized for the duration of the declaration that circumstances exist justifying the authorization of emergency use of in vitro diagnostics for detection and/or diagnosis of the virus that causes COVID-19 under Section 564(b)(1) of the Act, 21 U.S.C. ? 360bbb-3(b)(1), unless the authorization is terminated or revoked sooner. Performed By: #### 1 [id number], [id number] ####[facility] [address] [place] [address] XR Chest 2 Viewson 2 XR Chest [...] Saucedo M.D. Transcribed by: MARY Technologist: ANASTASIIA Rivas [facility] Consent for Treatmenton 04-19 Consent for Treatment [id number]#[id number] D:127 Normal [facility] MICRO OTHER TESTSOrdered By: Rojas Yen [...] Detected (05/14/22 9:30 PM) Normal Not Detected [facility] [facility] Rapid COVID Antigen ([facility])on 05-14-2022 ADMITTED TO INTENSIVE CARE UNIT FOR CONDITION OF INTEREST:FIND:PT: NO Normal [facility] Comment on above: Performed By: #### 1 [id number], [id number] ####[place] [address] EMPLOYED IN A HEALTHCARE SETTING:FIND:PT: NO Normal [facility] Comment on above: Performed By: #### 1 [id number], [id number] ####[place] [address] FIRST TEST FOR CONDITION OF INTEREST:FIND:PT: Unknown Normal [facility] Comment on above: Performed By: #### 1 [id number], [id number] ####[place] [address] HAS SYMPTOMS RELATED TO CONDITION OF INTEREST:FIND:PT: YES Normal [facility] Comment on above: Performed By: #### 1 [id number], [id number] ####[place] [address] HOSPITALIZED FOR CONDITION OF INTEREST:FIND:PT: NO Normal [facility] Comment on above: Performed By: #### 1 [id number], [id number] ####[facility] [address] [place] [address] STATUS:FIND:PT: NO Normal [facility] Comment on above: Performed By: #### 1 [id number], [id number] ####[facility] [address] [place] [address] RESIDES IN A CONGREGATE CARE SETTING:FIND:PT: NO Normal [facility] Comment on above: Performed By: #### 1 [id number], [id number] ####[facility] [address] [place] [address] Ambulatory Visit Summaryon 1 07-12-2021 Ambulatory Visit Summary CHRISTIANO SANTACRUZ :1995 Visit Date:05/12/2022 Ambulatory Visit Instructions Your [...] Follow Up with Rigoberto CHURCH, Lelia Palmer, [facility] When: Where: [address] [place] [address] [phone] Medications What How Much When Why Instructions New brompheniramine/ dextromethorphan/ PSE (Bromfed DM oral syrup) 10 Milliliter By Mouth Every 6 hours as needed for for cold symptoms Acute URI Duration: 7 Days Pickup at [facility]/pharmacy #[id number] Unchanged cyclobenzaprine (cyclobenzaprine 10 mg Tab) 1 [...] physician if questions or concerns Pharmacy Information [facility]/pharmacy #[id number]: [address] [place], [place] [phone] Allergies Dilaudid (Hives) morphine (anaphylaxis) oxyCODONE (Nausea) [...] 1 years old. ? Live in a custodial. ? Travel on cruise ships. What are [...] replace imp (more content not included)... Normal [facility] Family Medicine Office/Clini c Jenniferon 05-12-2022 [...] for 7 day(s), 280 mL, Refill(s) 0, [id number], 178, cm, 05/12/22 11:45:00 EST, Height/Length [...] Contact Information Rigoberto CHURCH, Lelia Palmer, [facility] [address] [place] [address] [phone] Additional Instructions: Patient Education Viral Gastroenteritis, Adult [...] q6hr, PRN (more content not included)... Normal [facility] Comment on above: Result Comment: Elec tronically Signed By: Angela Pradhan\.br\Date and Time Signed: 05/12/22 12:04 EST Patient [...] 1 years old. ? Live in a custodial. ? Travel on cruise ships. What are [...] and water are not available, use hand organizational effectiveness consultant. ? Make sure that all people in your household wash their hands well and often. ? Take idjz-ljz-skuegnf and prescription medicines only as told by [...] person (more content not included)... Normal [facility] Coding Summary.on 05-10-2022 Coding Summary. CD:[id number] Gh0 bWw+PGhlYWQ+JU0SWHKhF38 odLJszN2JS3vNEV3DGNAARR XLQV2GJL2nbXF3BTznT0Ngf iAv NvkkhMYwHJ89RQp7WKP4sEm mYAhitR9umKXkQ3j1UvGmTT 74aM51GFxwARAwLcO0LjFst jsgbWFy M2ipClLecTTnLgn+PHRhYmx lIHdpZHRoPScxMDAlJyBzdH atKI3jPn7sGUPpEWIomSyfu HNlOiBj a6ynSJRnKXncDI4daSjdU0P rlKQ9JWKaq3i9Fk16aMQ+PH ZhPBH1tXiuSSlas154PiAvl 3ajEAJ2 yCIqGShiRDG9I29ty5N7XYQ bJNSpTPE6gOY7hG8anEomvf eeP6DtsSMyXmQ1DAG6uURxx P2woAva sjlckP6sQoy+T95ZME3WUKS KFL8YTsa4E5GlHrszcYR+PC 46OUWtDB11wMXhxYQnm1fqq Fe2NbLy CGNhTRG5oFmwYPesq3TpDXB yY33ptKEcy7B9TOVsdXjszA YfLdSspZH2iY3lVYueeieem 2hvdzsn Vqplq9cwtr27kF58U19oAIa dAYJhRLU9UWSpYAXkjEddbg 7ogL1rJg1+XRkzc7zhz9npj Hk6HdQx CILjusWxgOyoGFE6e3EsHe8 6A3DblTyob4NqGzq9nb93rW Snr0B7wEM5QKmfOMEneW7iN WxlZnQ6 JSOdMlXqyY87xLJvRQbbUd1 aaNxdoOsrSC8sGROhnwgtGO PwzX4kFKMvgWGrxKafFC8rG TBpbjtm f407RhAsAUL2YIUrwJGeR3B dgL5vQvCrIAMrLQSdO2AuzT PsALrzD190BPbaCrD7SJDvm aYhO8Vh SESrpJcsIqG5h9Z1Vo7Nk1W cxdvaAFF6SZluUHXcYwIiIu AxUwI4S0SeNyb4QFTdaIzzN U4nP0Fg PYVjycivmymmzBD4SLXbFQL ptY75sIOyEAuyJm1yc4Q3l1 54ZYOfNIUymN01Bg7evPkxC TBwdCBU gZ8gravml4vqlwzmDhPmBGQ hFLr1OTi5GJKfrQblWiIgNQ A6KsG4RRZ1qCYppB0yeKxza xqqqP2j Oyc+E71bwD7uSKH1HWS7joe dUFWthwAhVF16NL17N1JdAj wvdGFibGU+PGRpdiBzdHlsZ Z3mJuUl t4sru8VeCXotK0SqKNNhJQk cCkz7VEFwCDM7kVR6bH1rHB ZuZYqpb1X5eDR4H8DpryLcl b1at7qm RDZyWExhB17fwCSli2Z7UHC ktHK7JMIfyFfrKoAjeZ91Dv c+QWOfnArov0LqBytwr3acm 3iggQt5 RqEvZCRaciUfkTxtDPZ4t1F oEz60E82kEAlzBLQiJOWiJD YfOKPktCbroe8qdE4iAz6+P GNvbCB3 lZE3gU0bZCAgHmQ2SWllV48 7PySacAIsVhcvs4dof5vkpJ n9WjLgAKGwsnWuqCraAZA5h 4WdXu94 U11pTDwqEKNcGKVuUZJqQQX prYncmq9sbJ3bTa6+PC9jb2 mjsn78qH68hXR+SJJeEAI7m WxlPSdw DBPwzK1gIXgdWmW6GNEcPlB plJ11tGRdXWnnDz3icSdnpP mpGX3jGVBkijbzb392KaSnj 2xkIDEw yVOlIZcgPKW5P83qi9X9CHG pXOPbYSO2bUF3gG0iaPevjz ogbGVmdDsgdmVydGljYWwtY CerO597 IHRvcDsnPlBhdGllbnQgTmF dCKr4V2DwBdi0RNFrcVnyWA 4afMXmYQlxOy5obVuosFxiW Z1dDPQy ldxji037CjVfu1epCXTecSU tJMkfUOX7J75hs6Z3OWZhAT ZgFNO3rKG2yN9zpVvdvkbow GVmdDsg dmXepPsfPKpuXWiyK962LMX llMxkBsLeesUdRXJbtKD3IX 57KR64wSGpk0S8cIJ8N2NaG GRpbmct bsokvWE9SSTeERYzlF44Ou9 paXpwEp3yTZWtCWQ4AIYhxZ FoS9EwzZ9jFwGzGHWlKBHsT 3RleHQt TKnzG704LVyyNfL0HQIwdeL gU5RjUEJcmEquLfG1o0X3Am 8GY5A5ZN19GE00qWYea1Z6m KH6A7Wo JLEcahrvaobapPQ1BCErOOE jfM02Qh2orXhqJh8lUMXnLG M8IBVnfXSnJ6NrhQ2rUvCmV DAwMDAw Q3ZlvQVxNCzhI021LVzaGoY 1RNZzzfGeT0VdDHCsgDoaGx A0i9K5Sd7DCEs9YK09NE95x RElk6W4 bHH1Y2MfBMTaxetchlcfjNI 1DXGwTCEfkM78Uj8wmGegBy 2mDRCxPAY6KBUuxHKvR1Lff O0uLuCn QVVfBNNrL0RvtSDrWKiuD61 6ISwpVjE1XROnlkZxZ4MbRY GbyTpvJbR6z4N4Xj8CZDQzQ J94ITY9 pKC8LD99NB94D8HwSbbyzBD ibGU+PHRhYmxlIHdpZHRoPS kcDQAtKtIznKdvVI4iXb7nQ GVyLWNv aHlrtXKoPeBvd4mwZJAiDYz fZW5giCaiY0MjbGL7FPCkt4 a3Hk27R03rP0OjbPY+PGNvb TX2aVI4 uN5jYiYeQyO6DZcnS754HpZ ywSXjNrqvs3pmv3jkdMl7Fu J3XXTttiRkpGefDJO7t1YaN q42A79l IHdpZHRoPSIxNSUiIHZhbGl npf7ivN4nCw5+WPGxjOQ5xL H2uR8eJgZxOvO6AOviK220Y nRvcCIv Etzli7rkg6cfuFk6HnMkZHU bvpJejTfbBDF7e7ReCx59E0 CdwZqfe6IvCqw1qh87aUWiz 2S1vIS4 D5LvSEUeaozwoZJjaSvxNF7 bNQNvykizYMAhoJ2cREHfE9 e4WcGwXxY6UTyaI2BjghB7S DEwcHQg AGtsVAT6J55oq9K2TUYqQRF vAUX4lHR5zC3etBhqqkkbeJ VmdDsgdmVydGljYWwtYWxpZ 246IHRv gGiyICJpbH9nFFLxnXInmMb hGN6vGHLprjuuBccHMgmoRK tMZuODOS62JJ85bSZin7M0a GK7Q8Uc PHWgmymvselksEM4ZRVoQRG hlJ64dNPxIYifZu7cx1C6p8 17WMElBFKyxV49Dl6fjFrqQ TBwdCBU tY7pzwqpr5vmlqbfJoGgNXQ xYAp4QJm0PVYdxEsmUsKsKW N4QeT4JEU9rTIvaQ4dfZpmb ttmmV9f Oyc+VUIjXjJlUOd4RQhfoOR +IKMfFSO4pCrpRPeaWCBwbA 6iQBNvY6c8IoXpOyL5ESysM 3BhZGRp uekcUn95oM1jDfIbJsR1NQn eU8QqzlG1GROutKSlOUuuAX S9M05kv3D0ADLjBPPnJIM3l WJ6bK4m bGlnbjogbGVmdDsgdmVydGl aSGvuZEywP952OMUmxZsmRd I4VUsiZILgUK93YO15bHJuz 7Y4yKL8 M0DwTJYjkwhreaweqDR5WQW tRKWjeC72pZNmSEajKr9rj0 Z3j122AEGpTELmsT27Ud2ke DogMTBw jHLQqJ1afndsq7hbmgnzLhK mPTCbIBl2QYq4ALTgpNulMr MiTHW6WiT5LKS8rNFgwP0oo Glnbjog nV8oMeb+TWFsZTwvdGQ+PHR tBVY1uGssXJhnNJEunJ3eGT IlX1x9VkNtBnP0SJocP2FoH GRpbmct Ae90fD4uKiTkKkF6VYilP2A vykC5RLEltZAoBAgcCNS7P7 7pi2V4ZLGtCMHtLIZ8nEW2d H3wiZrs bjogbGVmdDsgdmVydGljYWw xBSshG379FLBjvItqDaIwfL 4gTWFuYWdlbWVudDwvdGQ+P Y44vr39 Z4StUzdfChj4RCMwOYD6oQJ 6gE0zAJBgMJlhu1J1eYA9E7 HucbVcxy0mk3sdIZHdNIrlO 29sbGFw j9M6PNFbpHV7VHRejUlbZaC ttZ28Yaj+TXAxhMdxw6IcYs fph8sxc0itvWd2AfRrDYZgo mFsaWdu BWQ8k2FvVf47H47wYAabPDO mUOKxWOYfVDCzdGvxut6dcB 9wIi8+NLUhuGN8qJP6lY2rV jAlIiB2 XTjfS980LpEuiYZoJiaee5q fm7ieyLn1MaXhMCGwhqFpbG ihNEH3g2YiNn99D9TgeGydp 5XqGnc1 ro54rNIgp0F9pOR0R7TtDEY qmaswzHKetRnbZG7mIGJpyz sqXZJfcS2uZXTqM8p7HrVcX xC3QGmi M8KdmlP4OFFyfBTcSWHbhBZ LlE0grlkfw4srycjtKeClVY EgAPv9QKx6NPBywEhlLpKqD ZS2TtW4 JIP1wEApuH9tcHzrkldplT4 wOyc+TMu0k6pohEPfQS8jxE D1HP47YQ65eUKiv9R3pJA3V 3BhZGRp kklcqfilbCP2OULcJMEnbM1 3Uc1oiFyfDn6vOTWnOHE8OB IksNIiK8KbhZ0qTyGpSKXdF KQfT9Bs wBPyULtuG079AWpwYeH0QUT vkjMpS1TiBSRciAuiAzM7x5 F7Du1MYN12ZD38IY43rJHib 3A3wCF8 N2YoJAJfwjnoknaapBG7KCW bDHYspW65Rs4cdGarOw0pYW QoNYI8ANPgsLVdY3KtzV2mG iAjMDAw RCXfS8NvoTGjRNpsI768JGm rWqX1VJUkdyZhF5PoYDBrfT yvCgL5f7T8Ho4YUn77GP29K H25dFNh g8P5pDC5G6VkLERwanhwgep xvFJ1LVTwIPDzoT35Ac4bpE liJo2yQGHwJLS0ZYYwwFFlC 7JacC9q AeJeNZIcRAJyU2JejSSfPNe rI019KAygVnW1NFXoctOyE9 RhAWHqjJqxOeI9l8X1Ih6WT Xllcjo8 O4KpIyeuiPF+RR71NSFzHS6 5kJHyjFHgy5nmmOp8NiCgEQ VsTGA4tCxoJWxkc2ZkWINmQ 29sbGFw c2U6 (more content not included)... Normal [facility] Consent for Treatmenton 04-19 Consent for Treatment [id number]#1.00C D:127 Normal [facility] Consultation Noteon 05-08-20 Consultation Note Patient: CHRISTIANO SANTACRUZ Age: 26 years Sex: Male : 1995 [...] full course of physical therapy here at [facility] within the past 6 months without lasting [...] All Problems (Selected) Anxiety / SNOMED CT 21867520 / Confirmed BMI 23.0-23.9, adult / SNOMED CT 6063339061 / Confirmed Cervical radiculopathy / SNOMED CT 323492630 / Confirmed Cervical spondylosis / SNOMED CT 0018579316 / Confirmed Constipation / SNOMED CT 00768777 / Confirmed after GB removed Difficulty swallowing / SNOMED CT 92224725 / Confirmed Enlarged tonsils / SNOMED CT 831186087 / Confirmed Family history unknown / SNOMED CT 6290769783 / Confirmed Former smoker / SNOMED CT 97577787 / Confirmed 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 / Confirmed Hospital discharge follow-up / SNOMED CT 8932078863 / Confirmed Insomnia / SNOMED CT 920956131 / Confirmed Medial epicondylitis / SNOMED CT 95707331 / Confirmed Muscle spasms of neck / SNOMED CT 5999228933 / Confirmed Non-smoker / SNOMED CT 49310190 / Confirmed PTSD (post-traumatic stress disorder) / SNOMED CT 96061634 / Confirmed Screening for cardiovascular condition / SNOMED CT 130147640 / Confirmed Splenomegaly / SNOMED CT 87994385 / Confirmed Stomal ulcer / SNOMED CT 0792831213 / Confirmed Testicle lump / SNOMED CT 653214374 / Confirmed Histories Past Medical History: Active Constipation (47014498) Comments: 11/13/2019 EDT 15:27 EDRaquel Keita RN after GB removed Resolved Cholelithiasis (963105914): Resolved. Comments: 02/09/2012 EDT 1:40 Afia Dillon RN 2010 Sleep apnea (837279896): Resolved. Family History: Clotting disorder Mother Hyperthyroidism Sister Procedure history: Cholecystectomy. Comments: 02/09/2012 1:39 Afia Dillon RN 2010 Hernia repair (09525424). Splenectomy (602752575). Social History Social & Psychosocial Habits Alcohol [...] mmHg (MAY 08:16) DBP 77 mmHg (MAY 08:) Weight 79.8 kg (MAY 08:) BMI 25.19 (MAY 08:) Constitutional: No acute distress. Well-nourished. Well-developed. Eyes: [...] pain wi (more content not included)... Normal [facility] Comment on above: Result Comment: Elec tronically Signed By: Jenifer BOGGS, Sen Dodson\.br\Date and Time Signed: 05/08/22 14:44 EST HIPAA Forms Officeon 022 HIPAA Forms Office [id number]#1.00 CD:127 Normal [facility] Legal Correspondence Officeo n 05-08-2022 Legal Correspondence Office [id number]#1.00 CD:127 [facility] Legal Correspondence Office [id number]#1.00 CD:127 [facility] Office/Clinic Note-Physician on 05-08-2022 Office/Clinic Note-Physician [id number]#1.00 CD:127 Normal [facility] Patient Correspondenceon Patient Correspondence [id number]#1.00 CD:127 Normal [facility] Patient Correspondence [id number]#1.00 CD:127 Normal [facility] Patient Correspondence [id number]#1.00 CD:127 Normal [facility] Patient Correspondence [id number]#1.00 CD:127 Normal [facility] Patient Correspondence [id number]#1.00 CD:127 Normal [facility] Patient History Officeon Patient History Office [id number]#1.00 CD:127 Normal [facility] Progress Noteon 06-28-2020 [employer]er And Handle Attacher Authentication Interface Message Text Email Communication from [employer] This email is from an external source. Hi, Thank you. We will cancel the test for you. Have a nice rest of your day. Warm regards, Shelbi Arceo Rn Iv Therapy, [facility] [address] [place] [address], [place] [address] P: Ext: 2001 F: [email or web address] om Original Message From: Laura Tracy [[email or web address]] Sent: 06/28/2020 11:32 AM To: [email or web address] Cc: [email or web address] Subject: RE: Order ID [id number] - Test hasn't started Yes, thank you Laura Tracy MD [place] [address] [email or web address] From: Shelbi Arceo Sent: Sunday, June 28, 2020 2:32 PM To: Laura Tracy Cc: [email or web address] Subject: Order ID [id number] - Test hasn't started This email is from an external source. Ellie, Thank you for the update. In that case, would you like to cancel the test? Warm regards, Shelbi Arceo Rn Iv Therapy, [employer] [address] [place] [address], [address] [place] [address] P: Ext: 2001 F: [email or web address] om Original Message From: Laura Tracy [[email or web address]] Sent: 06/28/2020 6:49 AM To: [email or web address] Cc: [email or web address] Subject: RE: Order ID [id number] - Test hasn't started I have tried to reach him several times and he has not called me back. I think we can assume he is not moving forward with testing. Laura Tracy MD [place] [address] [email or web address] From: Shelbi Arceo Sent: Sunday, June 14, 2020 6:28 PM To: Laura Tracy Cc: [email or web address] Subject: RE: Order ID [id number] - Test hasn't started This email is from an external source. Ellie, Thank you for the update. We will wait for your response to see what we should do to move forward. Have a happy new year! Shelbi Arceo Rn Iv Therapy, [employer] [address] [place] [address], [address] [place] [address] P: Ext: 2001 F: [email or web address] om Original Message From: Laura Tracy [[email or web address]] Sent: 06/14/2020 10:34 AM To: @[email or web address] Cc: [email or web address] Subject: RE: Order ID [id number] - Test hasn't started Hello, I ve called and left him a message asking him to call back. I will let you know if/when I hear from him. Happy New Year! Laura Tracy MD Clinical [employer] [address] [place] [address] [email or web address] From: Laura Tracy Sent: Friday, June 05, 2020 9:07 AM To: Shelbi Arceo Cc: [email or web address] Subject: Re: Order ID [id number] - Test hasn't started I am out of the office until 06/14 and will look into this when I return. Thanks! Laura Tracy MD Clinical Genetics [facility] From: Shelbi Arceo Sent: Thursday, June 04, 2020 7:10 PM To: Laura Tracy Cc: [email or web address] Subject: Order ID [id number] - Test hasn't started This email is [...] be appreciated. Thank you. Patient is Morelia MICHELLEB 1995 Steph hogan, Shelbi Arceo Rn Iv Therapy, [employer] [address] [place] [address], [address] [place] [address] P: Ext: 2001 F: [email or web address] ref:_[email or web address] jvvu:ref Normal [facility] Progress Noteon 04-13-2020 Brush Loader And Handle Attacher Authentication Interface Message Text This is a [...] Modifying Factors, Associated Signs & Symptoms): Christiano Santacruz is a 24 y.o. man who presents [...] nourished; no acute distress; nondysmorphic Impression: Christiano Santacruz is a 24 y.o. 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 Individuals with hereditary spherocytosis may [...] Dopplers, for added reassurance. Recommendations and Plan: [employer] Red Blood Cell Membrane Disorders Panel; will have saliva sample sent to home address; [employer] will contact Christiano within 72 hours of receiving his sample if estimated [id number] is >$100. Follow up appointment: Will call Christiano with results of the above Counseling and/or coordination of care (face to face) was greater than 15 minutes which is more than the 50% of the total time of 20 minutes spent on the encounter. Normal [facility] CBCon 02-06-2020 Erythrocyte distribution width (RBC) [Ratio] 14.7 % High 11.5 - 14.5 [facility] Comment on above: Performed By: #### C BC ####[id number] [place] [address] Hematocrit (Bld) [Volume fraction] 44.0 % Normal 41.0 - 52.0 [facility] Comment on above: Performed By: #### C BC ####[id number] [place] [address] Hemoglobin (Bld) [Mass/Vol] 13.1 g/dL Low 13.5 - 17.5 [facility] Comment on above: Performed By: #### C BC ####[id number] [place] [address] MCHC (RBC) [Mass/Vol] 29.8 g/dL Low 32.0 - 36.0 [facility] Comment on above: Performed By: #### C BC ####[id number] [place] [address] MCV (RBC) [Entitic vol] 96 fL Normal 80 - 100 [facility] Comment on above: Performed By: #### C BC ####[id number] [place] [address] Nucleated RBC/100 WBC (Bld) [Ratio] 0.0 /100 WBC Normal 0.0-0.0 [facility] Comment on above: Performed By: #### C BC ####[id number] [place] [address] Platelets (Bld) [#/Vol] 1277 10*3/uL High 150 - 450 [facility] Comment on above: Result Comment: Plat elet count verified by smear review. Performed By: #### C BC ####[id number] [place] [address] RBC (Bld) [#/Vol] 4.56 x10E12/L Normal 4.50 - 5.90 [facility] Comment on above: Performed By: #### C BC ####[id number] [place] [address] WBC (Bld) [#/Vol] 10.4 10*3/uL Normal 4.4 - 11.3 [facility] Comment on above: Performed By: #### C BC ####[id number] [place] [address] BASIC METABOLIC PANELon 01-16 Anion gap [Moles/Vol] 15 mmol/L Normal 10 - 20 [facility] Comment on above: Performed By: #### B MP ####[id number] [place] [address] Calcium [Mass/Vol] 8.8 mg/dL Normal 8.6 - 10.6 [facility] Comment on above: Performed By: #### B MP ####[id number] [place] [address] Chloride [Moles/Vol] 104 mmol/L Normal 98 - 107 [facility] [place] Comment on above: Performed By: #### B MP ####[id number] [place] [address] Creatinine [Mass/Vol] 0.55 mg/dL Normal 0.50 - 1.30 [facility] Comment on above: Performed By: #### B MP ####[id number] [place] [address] GFR- AM. >60 Normal >60 [facility] Comment on above: Result Comment: CALC ULATIONS OF ESTIMATED GFR ARE PERFORMED USING THE MDRD STUDY EQUATION FOR THE IDMS-TRACEABLE CREATININE METHODS. CLIN CHEM 2007;53:766-72 Performed By: #### B MP ####[id number] [place] [address] GFR-NON AM. >60 Normal >60 [facility] Comment on above: Performed By: #### B MP ####[id number] [place] [address] Glucose [Mass/Vol] 89 mg/dL Normal 74 - 99 [facility] Comment on above: Performed By: #### B MP ####[id number] [place] [address] HCO3 (Bld) [Moles/Vol] 23 mmol/L Normal 21 - 32 [facility] Comment on above: Performed By: #### B MP ####[id number] [place] [address] Potassium [Moles/Vol] 3.9 mmol/L Normal 3.5 - 5.3 [facility] Comment on above: Performed By: #### B MP ####[id number] [place] [address] Sodium [Moles/Vol] 138 mmol/L Normal 136 - 145 [facility] Comment on above: Performed By: #### B MP ####[id number] [place] [address] Urea nitrogen [Mass/Vol] 11 mg/dL Normal 6 - 23 [facility] Comment on above: Performed By: #### B MP ####[id number] [place] [address] CBCon 01-28-2020 Erythrocyte distribution width (RBC) [Ratio] 14.5 % Normal 11.5 - 14.5 [facility] Comment on above: Performed By: #### C BC ####[id number] [place] [address] Hematocrit (Bld) [Volume fraction] 34.1 % Low 41.0 - 52.0 [facility] Comment on above: Performed By: #### C BC ####[id number] [place] [address] Hemoglobin (Bld) [Mass/Vol] 10.7 g/dL Low 13.5 - 17.5 [facility] Comment on above: Performed By: #### C BC ####[id number] [place] [address] MCHC (RBC) [Mass/Vol] 31.4 g/dL Low 32.0 - 36.0 [facility] Comment on above: Performed By: #### C BC ####[id number] [place] [address] MCV (RBC) [Entitic vol] 93 fL Normal 80 - 100 [facility] Comment on above: Performed By: #### C BC ####[id number] [place] [address] Nucleated RBC/100 WBC (Bld) [Ratio] 0.2 /100 WBC Normal 0.0-0.0 [facility] Comment on above: Performed By: #### C BC ####[id number] [place] [address] Platelets (Bld) [#/Vol] 742 10*3/uL High 150 - 450 [facility] Comment on above: Performed By: #### C BC ####[id number] [place] [address] RBC (Bld) [#/Vol] 3.65 x10E12/L Low 4.50 - 5.90 [facility] Comment on above: Performed By: #### C BC ####[id number] [place] [address] WBC (Bld) [#/Vol] 16.1 10*3/uL High 4.4 - 11.3 [facility] Comment on above: Performed By: #### C BC ####[id number] [place] [address] Daily Progress Note-Surgeryo n 01-28-2020 Daily Progress Note-Surgery Service: Surgery Subjective Data: CHRISTIANO SANTACRUZ is a 24 year old Male who is Hospital Day # 8 and POD #7 for laparoscopic splenectomy. Pt examined at bedside. Pt reports reduced scrotal swelling and with unchanged scrotal pain. Dark green emesis of small volume on Jan 26 in the afternoon. pt ambulating. Pt denies SOB, chest pain, hemoptysis, or hematemesis. Objective Data: Objective Information: T PRBPSpO2 [id number]/99925% Date/Time01/27 11:288/12 11: 11: 11: 11:28 Range(36.1C - 37.4C ) (84 - 103 ) (18 - 18 ) (120 - 134 )/ (65 - 81 ) (93% - 100% ) Highest temp of 37.4 C was recorded at 01/26 19:35 Pain reported at 01/27 8:21: 2 = Mild ---- Intake and Output ----- Mn/Dy/Year TimeIntakeOutputNet Jan 28, 2020 6:00 [id number] Jan 27, 2020 10:00 [id number] Jan 27, 2020 2:00 [id number] The Intake and Output Totals for the last 24 hours are: IntakeOutputNet [id number] Physical Exam: Constitutional: Well developed, awake/alert/oriented x3, [...] Neuro: Lidocaine 5% transdermal (1 patch/24hrs) Fentanyl 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 I personally evaluated the patient [id number] Electronic Signatures: Jluis Rinaldi ( (Resident)) (Signed 28-Jan-2020 16:13) Authored: Subjective Data, [...] 29-Jan-2020 08:10 by Eagle Mcmanus) Normal [facility] BASIC METABOLIC PANELon 01-16 Anion gap [Moles/Vol] 19 mmol/L Normal 10 - 20 [facility] Comment on above: Order Comment: CRIT GLU CALLED RB TO VANESSA CHAVEZ, 01/27/2020 14:52 Performed By: #### B MP ####[id number] [place] [address] Calcium [Mass/Vol] 8.9 mg/dL Normal 8.6 - 10.6 [facility] Comment on above: Order Comment: CRIT GLU CALLED RB TO VANESSA CHAVEZ, 01/27/2020 14:52 Performed By: #### B MP ####[id number] [place] [address] Chloride [Moles/Vol] 103 mmol/L Normal 98 - 107 [facility] [place] Comment on above: Order Comment: CRIT GLU CALLED RB TO VANESSA CHAVEZ, 01/27/2020 14:52 Performed By: #### B MP ####[id number] [place] [address] Creatinine [Mass/Vol] 0.54 mg/dL Normal 0.50 - 1.30 [facility] Comment on above: Order Comment: CRIT GLU CALLED RB TO VANESSA CHAVEZ, 01/27/2020 14:52 Performed By: #### B MP ####[id number] [place] [address] GFR- AM. >60 Normal >60 [facility] Comment on above: Order Comment: CRIT GLU CALLED RB TO VANESSA CHAVEZ, 01/27/2020 14:52 Result Comment: CALC ULATIONS OF ESTIMATED GFR ARE PERFORMED USING THE MDRD STUDY EQUATION FOR THE IDMS-TRACEABLE CREATININE METHODS. CLIN CHEM 2007;53:766-72 Performed By: #### B MP ####[id number] [place] [address] GFR-NON AM. >60 Normal >60 [facility] Comment on above: Order Comment: CRIT GLU CALLED RB TO VANESSA CHAVEZ, 01/27/2020 14:52 Performed By: #### B MP ####[id number] [place] [address] Glucose [Mass/Vol] 38 mg/dL Critically low 74 - 99 [facility] Comment on above: Order Comment: CRIT GLU CALLED RB TO VANESSA CHAVEZ, 01/27/2020 14:52 Result Comment: CRIT GLU CALLED RB TO VANESSA CHAVEZ, 01/27/2020 14:52 Performed By: #### B MP ####[id number] [place] [address] HCO3 (Bld) [Moles/Vol] 21 mmol/L Normal 21 - 32 [facility] Comment on above: Order Comment: CRIT GLU CALLED RB TO VANESSA CHAVEZ, 01/27/2020 14:52 Performed By: #### B MP ####[id number] [place] [address] Potassium [Moles/Vol] 4.0 mmol/L Normal 3.5 - 5.3 [facility] Comment on above: Order Comment: CRIT GLU CALLED RB TO VANESSA CHAVEZ, 01/27/2020 14:52 Result Comment: MILD HEMOLYSIS DETECTED. The result may be falsely elevated due to hemolysis or other interferents. Clinical correlation is recommended. Repeat testing may be considered. Performed By: #### B MP ####[id number] [place] [address] Sodium [Moles/Vol] 139 mmol/L Normal 136 - 145 [facility] Comment on above: Order Comment: CRIT GLU CALLED RB TO VANESSA CHAVEZ, 01/27/2020 14:52 Performed By: #### B MP ####[id number] [place] [address] Urea nitrogen [Mass/Vol] 13 mg/dL Normal 6 - 23 [facility] Comment on above: Order Comment: CRIT GLU CALLED RB TO VANESSA CHAVEZ, 01/27/2020 14:52 Performed By: #### B MP ####[id number] [place] [address] CBCon 01-27-2020 Erythrocyte distribution width (RBC) [Ratio] 14.5 % Normal 11.5 - 14.5 [facility] Comment on above: Performed By: #### C BC ####[id number] [place] [address] Hematocrit (Bld) [Volume fraction] 32.4 % Low 41.0 - 52.0 [facility] Comment on above: Performed By: #### C BC ####[id number] [place] [address] Hemoglobin (Bld) [Mass/Vol] 10.3 g/dL Low 13.5 - 17.5 [facility] Comment on above: Performed By: #### C BC ####[id number] [place] [address] MCHC (RBC) [Mass/Vol] 31.8 g/dL Low 32.0 - 36.0 [facility] Comment on above: Performed By: #### C BC ####[id number] [place] [address] MCV (RBC) [Entitic vol] 93 fL Normal 80 - 100 [facility] Comment on above: Performed By: #### C BC ####[id number] [place] [address] Nucleated RBC/100 WBC (Bld) [Ratio] 0.3 /100 WBC Normal 0.0-0.0 [facility] Comment on above: Performed By: #### C BC ####[id number] [place] [address] Platelets (Bld) [#/Vol] 625 10*3/uL High 150 - 450 [facility] Comment on above: Performed By: #### C BC ####[id number] [place] [address] RBC (Bld) [#/Vol] 3.49 x10E12/L Low 4.50 - 5.90 [facility] Comment on above: Performed By: #### C BC ####[id number] [place] [address] WBC (Bld) [#/Vol] 16.4 10*3/uL High 4.4 - 11.3 [facility] Comment on above: Performed By: #### C BC ####[id number] [place] [address] Daily Progress Note-Interven tional Radiology/Radiologyon 01-27-2020 Daily Progress Note-Interventional Radiology/Radiology Service: Interventional Radiology/Radiology Subjective Data: CHRISTIANO SANTACRUZ is a 24 year old Male who is Hospital Day # 7 and POD #6 for 1. laparoscopic splenectomy. Patient reports scant leakage from right groin IR procedure site. Nausea improved. Heartburn, hiccups resolved. Denies fever, chills. Objective Data: Objective Information: T PRBPSpO2 Value36.45990409/7997% Date/Time01/26 11: 11: 11: 11: 11:42 Range(36.2C - 36.9C ) (87 - 96 ) (18 - 19 ) (134 - 155 )/ (78 - 90 ) (96% - 100% ) Highest temp of 36.9 C was recorded at 01/25 15:33 Pain reported at 01/26 2:27: 3 = Mild ---- Intake and Output ----- Mn/Dy/Year TimeIntakeOutputNet Jan 27, 2020 6:00 [id number] Jan 26, 2020 10:00 [id number] Jan 26, 2020 2:00 [id number] The Intake and Output Totals for the last 24 hours are: IntakeOutputNet [id number] Physical Exam: Constitutional: Well developed, resting in [...] 2020 12:21PM] Assessment and Plan: Assessment: Christiano Santacruz is a 24yo M with hereditary spherocytosis [...] - IR signing off IR Nurse Coordinator [id number] IR PA / resident [id number] Electronic Signatures: Ann Alfaro (PAC) (Signed 27-Jan-2020 12:40) Authored: Service, Subjective Data, Objective Data, Assessment and Plan, Signature/Cosignature/A ttestation Last Updated: 27-Jan-2020 12:40 by Ann Alfaro (PAC) Normal [facility] Daily Progress Note-Surgeryo n 01-27-2020 Daily Progress Note-Surgery Service: Surgery Subjective Data: CHRISTIANO SANTACRUZ is a 24 year old Male who is Hospital Day # 7 and POD #6 for 1. laparoscopic splenectomy. Patient seen and examined at bedside. Patient had episode of emesis in the evening yesterday but nausea has improved. Pain has improved with other medications; fentanyl MOHS SURGEON reduced yesteray. Reflux improved. No hiccups. Walked yesterday. Scrotal swelling still present but reduced a bit. Objective Data: Objective Information: T PRBPSpO2 Value36.75506429/8896% Date/Time01/26 7: 7: 7: 7: 7:35 Range(36.2C - 36.9C ) (89 - 96 ) (18 - 19 ) (128 - 155 )/ (75 - 90 ) (96% - 100% ) Highest temp of 36.9 C was recorded at 01/25 15:33 Pain reported at 01/26 2:27: 3 = Mild ---- Intake and Output ----- Mn/Dy/Year [facility] Jan 27, 2020 6:00 [id number] Jan 26, 2020 10:00 [id number] Jan 26, 2020 2:00 [id number] The Intake and Output Totals for the last 24 hours are: IntakeOutputNet [id number] Physical Exam: Constitutional: Well developed, no acute [...] and Plan: Comorbidities: Comorbidity: Other Assessment: Christiano Santacruz is a 24yo M with hereditary spherocytosis now POD5 from laparoscopic splenectomy complicated by post op bleed requiring IR embolization on 01/21. Currently, HDS. H/H stable and is having an ileus. Free air on plain films from laparoscopy and was present on post-op CT scan. Plan: Neuro: -fentanyl MOHS SURGEON spaced out (25mcg/hr), robaxin, lidocaine patches for [...] function Discussed with Dr. Martina Rinaldi MD [facility] - General Surgery p: [phone] Signature/Cosignature/A ttestation: Note Completion: I am a: [...] the note. I personally evaluated the patient [id number] Comments/ Additional Findings Patient is improving. will wean pain meds encourage diet and mobilzation Electronic Signatures: Jluis Rinaldi (Resident)) (Signed 27-Jan-2020 08:41) Authored: Service, Subjective Data, Objective Data, Assessment and Plan, Signature/Cosignature/A ttestation Eagle Mcmanus) (Signed 28-Jan-2020 07:34) Authored: Signature/Cosignature/A ttestation Co-Signer: Service, Subjective Data, Objective Data, Assessment and Plan, Signature/Cosignature/A ttestation Last Updated: 28-Jan-2020 07:34 by Eagle Mcmanus) Normal [facility] GLUCOSE-POCTon 01-27-2020 Glucose [Mass/Vol] 101 mg/dL High 74 - 99 [facility] Comment on above: Performed By: #### G DAPHNE ####[id number] [place] [address] MAGNESIUMon 01-27-2020 Magnesium [Mass/Vol] 2.64 mg/dL High 1.60 - 2.40 [facility] Comment on above: Performed By: #### M G ####[id number] [place] [address] SURF MARKERS 9-15,PATH REVon 01-27-2020 PATH REV.9-15 MARKERS CAMI Normal [facility] Comment on above: Result Comment: By h er/his signature above, the Pathologist listed as making the final interpretation certifies that she/he has personally reviewed this case. Performed By: #### P R192 ####[id number] [place] [address] SURFACE MARKERS LYMPHOMA CUT DOWN PANELon 01-27-2020 CD19 57 % of Lymph Normal [facility] Comment on above: Result Comment: Poly clonal [place]/Lambda= 29:32 Performed By: #### L CPAN ####[id number] [id number] COMMENT see below Normal [facility] Comment on above: Result Comment: T ce lls are polyclonal by TRBC1 staining. Performed By: #### L CPAN ####[id number] [id number] DIAGNOSIS SEE BELOW Normal [facility] Comment on above: Result Comment: No i mmunophenotypic evidence of a lymphoproliferative disorder. No discrete blast population. Performed By: #### L CPAN ####[id number] [id number] NOTE SEE BELOW Normal [facility] Comment on above: Result Comment: Clin ical and morphologic correlation is suggested. Performed By: #### L CPAN ####[id number] [place] [address] CD4 14 % of Lymph Normal [facility] Comment on above: Performed By: #### L CPAN ####[id number] [place] [address] CD8 17 % of Lymph Normal [facility] Comment on above: Performed By: #### L CPAN ####[id number] [place] [address] CELL COUNT 83.53 x10E9/L Normal [facility] Comment on above: Performed By: #### L CPAN ####[id number] [place] [address] Granulocytes/100 WBC (Bld) 6 % Normal [facility] Comment on above: Performed By: #### L CPAN ####[id number] [place] [address] Lymphocytes/100 WBC (Bld) 61 % Normal [facility] Comment on above: Performed By: #### L CPAN ####[id number] [place] [address] Monocytes/100 WBC (Bld) 2 % Normal [facility] Comment on above: Performed By: #### L CPAN ####[id number] [place] [address] NK 12 % of Lymph Normal [facility] Comment on above: Performed By: #### L CPAN ####[id number] [place] [address] NUMBER OF CELLS COLLECTED 100,000 per tube Normal [facility] Comment on above: Performed By: #### L CPAN ####[id number] [place] [address] BASIC METABOLIC PANELon 08-1 0-2020 Anion gap [Moles/Vol] 16 mmol/L Normal 10 - 20 [facility] Comment on above: Performed By: #### B MP ####[id number] [place] [address] Calcium [Mass/Vol] 9.2 mg/dL Normal 8.6 - 10.6 [facility] Comment on above: Performed By: #### B MP ####[id number] [place] [address] Chloride [Moles/Vol] 102 mmol/L Normal 98 - 107 [facility] [place] Comment on above: Performed By: #### B MP ####[id number] [place] [address] Creatinine [Mass/Vol] 0.54 mg/dL Normal 0.50 - 1.30 [facility] Comment on above: Performed By: #### B MP ####[id number] [place] [address] GFR- AM. >60 Normal >60 [facility] Comment on above: Result Comment: CALC ULATIONS OF ESTIMATED GFR ARE PERFORMED USING THE MDRD STUDY EQUATION FOR THE IDMS-TRACEABLE CREATININE METHODS. CLIN CHEM 2007;53:766-72 Performed By: #### B MP ####[id number] [place] [address] GFR-NON AM. >60 Normal >60 [facility] Comment on above: Performed By: #### B MP ####[id number] [place] [address] Glucose [Mass/Vol] 90 mg/dL Normal 74 - 99 [facility] Comment on above: Performed By: #### B MP ####[id number] [place] [address] HCO3 (Bld) [Moles/Vol] 24 mmol/L Normal 21 - 32 [facility] Comment on above: Performed By: #### B MP ####[id number] [place] [address] Potassium [Moles/Vol] 4.2 mmol/L Normal 3.5 - 5.3 [facility] Comment on above: Result Comment: MILD HEMOLYSIS DETECTED. The result may be falsely elevated due to hemolysis or other interferents. Clinical correlation is recommended. Repeat testing may be considered. Performed By: #### B MP ####[id number] [place] [address] Sodium [Moles/Vol] 138 mmol/L Normal 136 - 145 [facility] Comment on above: Performed By: #### B MP ####[id number] [place] [address] Urea nitrogen [Mass/Vol] 13 mg/dL Normal 6 - 23 [facility] Comment on above: Performed By: #### B MP ####[id number] [place] [address] CBCon 01-26-2020 Erythrocyte distribution width (RBC) [Ratio] 14.8 % High 11.5 - 14.5 [facility] Comment on above: Performed By: #### H APTO #### [facility] [address] [place] [address] Hematocrit (Bld) [Volume fraction] 34.8 % Low 41.0 - 52.0 [facility] Comment on above: Performed By: #### H APTO #### [facility] [address] [place] [address] Hemoglobin (Bld) [Mass/Vol] 10.2 g/dL Low 13.5 - 17.5 [facility] Comment on above: Performed By: #### H APTO #### [facility] [address] [place] [address] MCHC (RBC) [Mass/Vol] 29.3 g/dL Low 32.0 - 36.0 [facility] Comment on above: Performed By: #### H APTO #### [facility] [address] [place] [address] MCV (RBC) [Entitic vol] 105 fL High 80 - 100 [facility] Comment on above: Performed By: #### H APTO #### [facility] [address] [place] [address] Nucleated RBC/100 WBC (Bld) [Ratio] 0.3 /100 WBC Normal 0.0-0.0 [facility] Comment on above: Performed By: #### H APTO #### [facility] [address] [place] [address] Platelets (Bld) [#/Vol] 224 10*3/uL Normal 150 - 450 [facility] Comment on above: Performed By: #### H APTO #### [facility] [address] [place] [address] RBC (Bld) [#/Vol] 3.33 x10E12/L Low 4.50 - 5.90 [facility] Comment on above: Performed By: #### H APTO #### [facility] [address] [place] [address] WBC (Bld) [#/Vol] 17.2 10*3/uL High 4.4 - 11.3 [facility] Comment on above: Performed By: #### H APTO #### [facility] [address] [place] [address] Daily Progress Note-Interven tional Radiology/Radiologyon 01-26-2020 Daily Progress Note-Interventional Radiology/Radiology Service: Interventional Radiology/Radiology Subjective Data: ILGCHRISTIANO is a 24 year old Male who is Hospital Day # 6 and POD #5 for 1. laparoscopic splenectomy. Patient reports leakage from right groin IR procedure site. Also reports nausea, vomiting, heartburn, and hiccups. Having diffuse pain. Denies fever, chills. Objective Data: Objective Information: T PRBPSpO2 Value36.15922853/9097% Date/Time01/25 12: 12: 12: 12: 12:45 Range(36C - 36.6C ) (78 - 99 ) (17 - 19 ) (128 - 155 )/ (75 - 90 ) (96% - 100% ) Pain reported at 01/25 12:31: 2 = Mild ---- Intake and Output ----- Mn/Dy/Year TimeIntakeOutputNet Jan 26, 2020 2:00 [id number] Jan 26, 2020 6:00 [id number] Jan 25, 2020 10:00 [id number] The Intake and Output Totals for the last 24 hours are: IntakeOutputNet [id number] Physical Exam: Constitutional: Well developed, resting in [...] Medication: Medications: Continuous Medications --------- 1. fentaNYL MOHS SURGEON 1000 microgram/ NaCL 0.9% 50 mL: 1000 microgram(s) IV MOHS SURGEON 2. Lactated Ringers Infusion: 1000 mL IntraVenous [...] laboratory results: Basic Metabolic Panel Trending View [id number] 06:58:00 -Jan-2020 12:19:00 Glucose, Serum90 71 L NA138 139 K4.2 4.7 CL102 103 Bicarbonate, Serum24 23 Anion Gap, Serum16 18 BUN13 13 CREAT0.54 0.55 GFR-Non >60 >60 GFR->60 >60 Calcium, Serum9.2 8.7 Complete Blood Count Trending View [id number] 06:58:00 09-Jan-2020 12:19:00 White Blood Cell Count17.2 H 22.7 H Nucleated Erythrocyte Count0.3 0.3 Red Blood Cell Count3.33 L 3.76 L HGB10.2 L 11.3 L HCT34.8 L 37.1 L FWO045 H 99 MCHC29.3 L 30.5 L OLQ205 292 RDW-CV14.8 H 15.4 H Radiology Results: [...] 2020 12:19PM] Assessment and Plan: Assessment: Christiano Santacruz is a 24yo M with hereditary spherocytosis [...] will continue to follow IR Nurse Coordinator [id number] IR PA / resident [id number] Electronic Signatures: Ann Alfaro (PAC) (Signed 26-Jan-2020 14:48) Authored: Service, Subjective Data, Objective Data, Assessment and Plan, Signature/Cosignature/A ttestation Last Updated: 26-Jan-2020 14:48 by Ann Alfaro (PAC) Normal [facility] Daily Progress Note-Surgeryo n 01-26-2020 Daily Progress Note-Surgery Service: Surgery Subjective Data: MARCE CHRISTIANO ALEX is a 24 year old Male who is Hospital Day # 6 and POD #5 for 1. laparoscopic splenectomy. Patient seen and examined at bedside. Had some episodes of emesis last night. Small volume, gastric contents. Still having diffuse pain but has been reluctant to use MOHS SURGEON since he knows it may worsen ileus. Has been walking around. Objective Data: Objective Information: T PRBPSpO2 Value36.48065213/7599% Date/Time01/25 8: 8: 8: 8: 8:42 Range(36C - 36.9C ) (78 - 99 ) (17 - 19 ) (128 - 143 )/ (75 - 85 ) (95% - 100% ) Highest temp of 36.9 C was recorded at 01/24 12:21 Pain reported at 01/24 20:41: 2 = Mild ---- Intake and Output ----- Mn/Dy/Year TimeIntakeOutputNet Jan 26, 2020 6:00 [id number] Jan 25, 2020 10:00 [id number] Jan 25, 2020 2:00 [id number] The Intake and Output Totals for the last 24 hours are: IntakeOutputNet [id number] Physical Exam: Constitutional: Well developed, no acute [...] and Plan: Comorbidities: Comorbidity: Other Assessment: Christiano Santacruz is a 24yo M with hereditary spherocytosis now POD5 from laparoscopic splenectomy complicated by post op bleed requiring IR embolization on 01/21. Currently, HDS. H/H stable and is having an ileus. Free air on plain films from laparoscopy and was present on post-op CT scan. Plan: Neuro: -fentanyl MOHS SURGEON for postop pain - adding lidocaine patches to assist with decreased MOHS SURGEON use CV: - Continue monitoring hemodynamic status Pulm: - IS q1h, OOB GI: - continue CLD as tolerated - Zofran for nausea - chewing gum : - Continue MIVF; dec to 100ml/hr - Strict I/Os MSK: OOB, ambulate DVT ppx: SCDs; OOB, hold chemical ppx Dispo: pending improvement in pain and return of bowel function Discussed with Dr. Martina Rinaldi MD [facility] - General Surgery p: [phone] Signature/Cosignature/A ttestation: Note Completion: I am a: [...] the note. I personally evaluated the patient [id number] Electronic Signatures: Jluis Rinaldi (Resident)) (Signed 26-Jan-2020 10:21) Authored: Service, Subjective Data, Objective Data, Assessment and Plan, Signature/Cosignature/A ttestation Eagle Mcmanus) (Signed 26-Jan-2020 10:55) Authored: Signature/Cosignature/A ttestation Co-Signer: Service, Subjective Data, Objective Data, Assessment and Plan, Signature/Cosignature/A ttestation Last Updated: 26-Jan-2020 10:55 by Eagle Mcmanus) Normal [facility] FLOW CYTOMETRY TESTon 2019 FLOW TEST ORDERED LYMPHOMA CUTDOWN PANEL Normal [facility] Comment on above: Performed By: #### F CTST ####[id number] [place] [address] SOURCE TISSUE Normal [facility] Comment on above: Performed By: #### F CTST ####[id number] [place] [address] SURFACE MARKERS LYMPHOMA CUT DOWN PANELon 01-26-2020 SPECIMEN SITE Spleen Normal [facility] Comment on above: Result Comment: [id number] Performed By: #### L CPAN ####[id number] [place] [address] METHOD SEE BELOW Normal [facility] Comment on above: Result Comment: This test is a multicolor, whole blood lysis assay. It was developed and its performance characteristics determined by the Department of Pathology, [facility], and has not been cleared or [...] TCR gamma-delta Performed By: #### L CPAN ####[id number] [place] [address] SPECIMEN VIABILITY Acceptable Normal [facility] Comment on above: Performed By: #### L CPAN ####[id number] [place] [address] BASIC METABOLIC PANELon 08-0 9-2020 Anion gap [Moles/Vol] 18 mmol/L Normal 10 - 20 [facility] Comment on above: Performed By: #### H APTO #### [facility] [address] [place] [address] Calcium [Mass/Vol] 8.7 mg/dL Normal 8.6 - 10.6 [facility] Comment on above: Performed By: #### H APTO #### [facility] [address] [place] [address] Chloride [Moles/Vol] 103 mmol/L Normal 98 - 107 [facility] [place] Comment on above: Performed By: #### H APTO #### [facility] [address] [place] [address] Creatinine [Mass/Vol] 0.55 mg/dL Normal 0.50 - 1.30 [facility] Comment on above: Performed By: #### H APTO #### [facility] [address] [place] [address] GFR- AM. >60 Normal >60 [facility] Comment on above: Result Comment: CALC ULATIONS OF ESTIMATED GFR ARE PERFORMED USING THE MDRD STUDY EQUATION FOR THE IDMS-TRACEABLE CREATININE METHODS. CLIN CHEM 2007;53:766-72 Performed By: #### H APTO #### [facility] [address] [place] [address] GFR-NON AM. >60 Normal >60 [facility] Comment on above: Performed By: #### H APTO #### [facility] [address] [place] [address] Glucose [Mass/Vol] 71 mg/dL Low 74 - 99 [facility] Comment on above: Performed By: #### H APTO #### [facility] [address] [place] [address] HCO3 (Bld) [Moles/Vol] 23 mmol/L Normal 21 - 32 [facility] Comment on above: Performed By: #### H APTO #### [facility] [address] [place] [address] Potassium [Moles/Vol] 4.7 mmol/L Normal 3.5 - 5.3 [facility] Comment on above: Result Comment: MILD HEMOLYSIS DETECTED. The result may be falsely elevated due to hemolysis or other interferents. Clinical correlation is recommended. Repeat testing may be considered. Performed By: #### H APTO #### [facility] [address] [place] [address] Sodium [Moles/Vol] 139 mmol/L Normal 136 - 145 [facility] Comment on above: Performed By: #### H APTO #### [facility] [address] [place] [address] Urea nitrogen [Mass/Vol] 13 mg/dL Normal 6 - 23 [facility] Comment on above: Performed By: #### H APTO #### [facility] [address] [place] [address] Anion gap [Moles/Vol] Canceled Normal [facility] Comment on above: Order Comment: TEST BASIC METABOLIC PANEL WAS CANCELLED, 01/25/2020 08:19 Performed By: #### H APTO #### [facility] [address] [place] [address] Calcium [Mass/Vol] Canceled Normal [facility] Comment on above: Order Comment: TEST BASIC METABOLIC PANEL WAS CANCELLED, 01/25/2020 08:19 Performed By: #### H APTO #### [facility] [address] [place] [address] Chloride [Moles/Vol] Canceled Normal [facility] [place] Comment on above: Order Comment: TEST BASIC METABOLIC PANEL WAS CANCELLED, 01/25/2020 08:19 Performed By: #### H APTO #### [facility] [address] [place] [address] Creatinine [Mass/Vol] Canceled Normal [facility] Comment on above: Order Comment: TEST BASIC METABOLIC PANEL WAS CANCELLED, 01/25/2020 08:19 Performed By: #### H APTO #### [facility] [address] [place] [address] GFR- AM. Canceled Normal [facility] Comment on above: Order Comment: TEST BASIC METABOLIC PANEL WAS CANCELLED, 01/25/2020 08:19 Result Comment: CALC ULATIONS OF ESTIMATED GFR ARE PERFORMED USING THE MDRD STUDY EQUATION FOR THE IDMS-TRACEABLE CREATININE METHODS. CLIN CHEM 2007;53:766-72 Performed By: #### H APTO #### [facility] [address] [place] [address] GFR-NON AM. Canceled Normal [facility] Comment on above: Order Comment: TEST BASIC METABOLIC PANEL WAS CANCELLED, 01/25/2020 08:19 Performed By: #### H APTO #### [facility] [address] [place] [address] Glucose [Mass/Vol] Canceled Normal [facility] Comment on above: Order Comment: TEST BASIC METABOLIC PANEL WAS CANCELLED, 01/25/2020 08:19 Performed By: #### H APTO #### [facility] [address] [place] [address] HCO3 (Bld) [Moles/Vol] Canceled Normal [facility] Comment on above: Order Comment: TEST BASIC METABOLIC PANEL WAS CANCELLED, 01/25/2020 08:19 Performed By: #### H APTO #### [facility] [address] [place] [address] Potassium [Moles/Vol] Canceled Normal [facility] Comment on above: Order Comment: TEST BASIC METABOLIC PANEL WAS CANCELLED, 01/25/2020 08:19 Performed By: #### H APTO #### [facility] [address] [place] [address] Sodium [Moles/Vol] Canceled Normal [facility] Comment on above: Order Comment: TEST BASIC METABOLIC PANEL WAS CANCELLED, 01/25/2020 08:19 Performed By: #### H APTO #### [facility] [address] [place] [address] Urea nitrogen [Mass/Vol] Canceled Normal [facility] Comment on above: Order Comment: TEST BASIC METABOLIC PANEL WAS CANCELLED, 01/25/2020 08:19 Performed By: #### H APTO #### [facility] [address] [place] [address] CBCon 01-25-2020 Erythrocyte distribution width (RBC) [Ratio] 15.4 % High 11.5 - 14.5 [facility] Comment on above: Performed By: #### H APTO #### [facility] [address] [place] [address] Hematocrit (Bld) [Volume fraction] 37.1 % Low 41.0 - 52.0 [facility] Comment on above: Performed By: #### H APTO #### [facility] [address] [place] [address] Hemoglobin (Bld) [Mass/Vol] 11.3 g/dL Low 13.5 - 17.5 [facility] Comment on above: Performed By: #### H APTO #### [facility] [address] [place] [address] MCHC (RBC) [Mass/Vol] 30.5 g/dL Low 32.0 - 36.0 [facility] Comment on above: Performed By: #### H APTO #### [facility] [address] [place] [address] MCV (RBC) [Entitic vol] 99 fL Normal 80 - 100 [facility] Comment on above: Performed By: #### H APTO #### [facility] [address] [place] [address] Nucleated RBC/100 WBC (Bld) [Ratio] 0.3 /100 WBC Normal 0.0-0.0 [facility] Comment on above: Performed By: #### H APTO #### [facility] [address] [place] [address] Platelets (Bld) [#/Vol] 292 10*3/uL Normal 150 - 450 [facility] Comment on above: Performed By: #### H APTO #### [facility] [address] [place] [address] RBC (Bld) [#/Vol] 3.76 x10E12/L Low 4.50 - 5.90 [facility] Comment on above: Performed By: #### H APTO #### [facility] [address] [place] [address] WBC (Bld) [#/Vol] 22.7 10*3/uL High 4.4 - 11.3 [facility] Comment on above: Performed By: #### H APTO #### [facility] [address] [place] [address] Erythrocyte distribution width (RBC) [Ratio] Canceled Normal [facility] Comment on above: Order Comment: TEST CBC WAS CANCELLED, 01/25/2020 08:19 Performed By: #### H APTO #### [facility] [address] [place] [address] Hematocrit (Bld) [Volume fraction] Canceled Normal [facility] Comment on above: Order Comment: TEST CBC WAS CANCELLED, 01/25/2020 08:19 Performed By: #### H APTO #### [facility] [address] [place] [address] Hemoglobin (Bld) [Mass/Vol] Canceled Normal [facility] Comment on above: Order Comment: TEST CBC WAS CANCELLED, 01/25/2020 08:19 Performed By: #### H APTO #### [facility] [address] [place] [address] MCHC (RBC) [Mass/Vol] Canceled Normal [facility] Comment on above: Order Comment: TEST CBC WAS CANCELLED, 01/25/2020 08:19 Performed By: #### H APTO #### [facility] [address] [place] [address] MCV (RBC) [Entitic vol] Canceled Normal [facility] Comment on above: Order Comment: TEST CBC WAS CANCELLED, 01/25/2020 08:19 Performed By: #### H APTO #### [facility] [address] [place] [address] Nucleated RBC/100 WBC (Bld) [Ratio] Canceled Normal [facility] Comment on above: Order Comment: TEST CBC WAS CANCELLED, 01/25/2020 08:19 Performed By: #### H APTO #### [facility] [address] [place] [address] Platelets (Bld) [#/Vol] Canceled Normal [facility] Comment on above: Order Comment: TEST CBC WAS CANCELLED, 01/25/2020 08:19 Performed By: #### H APTO #### [facility] [address] [place] [address] RBC (Bld) [#/Vol] Canceled Normal [facility] Comment on above: Order Comment: TEST CBC WAS CANCELLED, 01/25/2020 08:19 Performed By: #### H APTO #### [facility] [address] [place] [address] WBC (Bld) [#/Vol] Canceled Normal [facility] Comment on above: Order Comment: TEST CBC WAS CANCELLED, 01/25/2020 08:19 Performed By: #### H APTO #### [facility] [address] [place] [address] Daily Progress Note-Surgeryo n 01-25-2020 Daily Progress Note-Surgery Service: Surgery Subjective Data: CHRISTIANO SANTACRUZ is a 24 year old Male who is Hospital Day # 5 and POD #4 for 1. laparoscopic splenectomy. Patient seen and examined at bedside. No acute events overnight. Pain improving. Mild nausea, no vomiting. Passed a lot of flatus yesterday per patient, not as much today. Had large BM. Objective Data: Objective Information: T PRBPSpO2 [id number]% Date/Time01/24 2: 2: 2: 2: 2:38 Range(36C [...] ----- Mn/Dy/Year TimeIntakeOutputNet Jan 25, 2020 6:00 [id number] Jan 24, 2020 10:00 [id number] Jan 24, 2020 2:00 [id number] The Intake and Output Totals for the last 24 hours are: IntakeOutputNet [id number] Physical Exam: Constitutional: Patient lying comfortably in bed. Eyes: EOMI Respiratory/Thorax: Non labored breathing on room air Cardiovascular: RRR Gastrointestinal: soft, distended, TTP in LUQ, incisions c/d/i with steri strips Extremities: No lower extremity edema Neurological: Alert and oriented Psychological: Appropriate mood and affect Skin: warm and dry Assessment and Plan: Comorbidities: Comorbidity: Other Assessment: Christiano Santacruz is a 24yo M with hereditary spherocytosis now POD3 from laparoscopic splenectomy complicated but post op bleed requiring IR embolization on 01/21. Currently, HDS. H/H stable and is having an ileus. Free air on plain films from laparoscopy and was present on post-op CT scan. Plan: Neuro: -fentanyl MOHS SURGEON for postop pain CV: - Continue monitoring hemodynamic status Pulm: - IS q1h, OOB GI: - advance to CLD - Zofran for nausea - chewing gum : - Continue MIVF; dec to 100ml/hr - Strict I/Os MSK: OOB, ambulate DVT ppx: SCDs; hold chemical ppx Dispo: pending improvement in pain and return of bowel function Discussed with Dr. Martina Rinaldi MD [facility] General Surgery p: [phone] Signature/Cosignature/A ttestation: Note Completion: I am a: [...] the note. I personally evaluated the patient [id number] Comments/ Additional Findings Doing better today. encourage ambulation Electronic Signatures: Jluis Rinaldi (Resident)) (Signed 25-Jan-2020 08:03) Authored: Service, Subjective Data, Objective Data, Assessment and Plan, Signature/Cosignature/A ttestation Eagle Mcmanus) (Signed 25-Jan-2020 20:15) Authored: Signature/Cosignature/A ttestation Co-Signer: Signature/Cosignature/A ttestation Last Updated: 25-Jan-2020 20:15 by Eagle Mcmanus) Normal [facility] Discharge [id number] Discharge Profile2 Discharge Orders: Anticipated Discharge Date: Anticipated Discharge [id number] Problem List: Additional Dx: Hereditary spherocytosis: Catalog [...] Course: include significant abnormal lab values Christiano Santacruz is a 24yo M with hx hereditary [...] check Call to Schedule in2 weeks Phone [phone] Commentsdiscuss long-term vaccines Electronic Signatures: Jluis Rinaldi ( (Resident)) (Signed 28-Jan-2020 17:14) Authored: Discharge Orders, Hospital Course (Home Care/Gold Form), Provider FINAL REVIEW of Orders, Appointments, Gold Form - Business Intelligence Reporting Analyst Summary Last Updated: 28-Jan-2020 17:14 by Jluis Rinaldi ( (Resident)) Normal [facility] CALCIUM, IONIZEDon 0 CALCIUM,IONIZED 1.17 mmol/L Normal 1.10 - 1.33 [facility] Comment on above: Result Comment: The performance characteristics of ionized calcium tested in heparinized plasma or serum have been validated by the individual laboratory site where testing is performed. Testing on heparinized plasma or serum is not approved by the FDA; however, such approval is not necessary. Performed By: #### E SRWS #### [facility] [address] [place] [address] CBCon 01-24-2020 Erythrocyte distribution width (RBC) [Ratio] 16.0 % High 11.5 - 14.5 [facility] Comment on above: Performed By: #### E SRWS #### [facility] [address] [place] [address] Hematocrit (Bld) [Volume fraction] 30.6 % Low 41.0 - 52.0 [facility] Comment on above: Performed By: #### E SRWS #### [facility] [address] [place] [address] Hemoglobin (Bld) [Mass/Vol] 10.6 g/dL Low 13.5 - 17.5 [facility] Comment on above: Performed By: #### E SRWS #### [facility] [address] [place] [address] MCHC (RBC) [Mass/Vol] 34.6 g/dL Normal 32.0 - 36.0 [facility] Comment on above: Performed By: #### E SRWS #### [facility] [address] [place] [address] MCV (RBC) [Entitic vol] 88 fL Normal 80 - 100 [facility] Comment on above: Performed By: #### E SRWS #### [facility] [address] [place] [address] Nucleated RBC/100 WBC (Bld) [Ratio] 0.2 /100 WBC Normal 0.0-0.0 [facility] Comment on above: Performed By: #### E SRWS #### [facility] [address] [place] [address] Platelets (Bld) [#/Vol] 211 10*3/uL Normal 150 - 450 [facility] Comment on above: Performed By: #### E SRWS #### [facility] [address] [place] [address] RBC (Bld) [#/Vol] 3.47 x10E12/L Low 4.50 - 5.90 [facility] Comment on above: Performed By: #### E SRWS #### [facility] [address] [place] [address] WBC (Bld) [#/Vol] 24.4 10*3/uL High 4.4 - 11.3 [facility] Comment on above: Performed By: #### E SRWS #### [facility] [address] [place] [address] Erythrocyte distribution width (RBC) [Ratio] 16.6 % High 11.5 - 14.5 [facility] Comment on above: Performed By: #### E SRWS #### [facility] [address] [place] [address] Hematocrit (Bld) [Volume fraction] 29.4 % Low 41.0 - 52.0 [facility] Comment on above: Performed By: #### E SRWS #### [facility] [address] [place] [address] Hemoglobin (Bld) [Mass/Vol] 9.8 g/dL Low 13.5 - 17.5 [facility] Comment on above: Performed By: #### E SRWS #### [facility] [address] [place] [address] MCHC (RBC) [Mass/Vol] 33.3 g/dL Normal 32.0 - 36.0 [facility] Comment on above: Performed By: #### E SRWS #### [facility] [address] [place] [address] MCV (RBC) [Entitic vol] 92 fL Normal 80 - 100 [facility] Comment on above: Performed By: #### E SRWS #### [facility] [address] [place] [address] Nucleated RBC/100 WBC (Bld) [Ratio] 0.2 /100 WBC Normal 0.0-0.0 [facility] Comment on above: Performed By: #### E SRWS #### [facility] [address] [place] [address] Platelets (Bld) [#/Vol] 199 10*3/uL Normal 150 - 450 [facility] Comment on above: Performed By: #### E SRWS #### [facility] [address] [place] [address] RBC (Bld) [#/Vol] 3.19 x10E12/L Low 4.50 - 5.90 [facility] Comment on above: Performed By: #### E SRWS #### [facility] [address] [place] [address] WBC (Bld) [#/Vol] 21.3 10*3/uL High 4.4 - 11.3 [facility] Comment on above: Performed By: #### E SRWS #### [facility] [address] [place] [address] COAGULATION SCREENon 020 aPTT Coag (Bld) [Time] 21 s Low 25 - 35 [facility] Comment on above: Result Comment: Note new reference range as of 11/11/2019. THE APTT IS NO LONGER USED FOR MONITORING UNFRACTIONATED HEPARIN THERAPY. FOR MONITORING HEPARIN THERAPY, USE THE HEPARIN ASSAY. Performed By: #### E SRWS #### [facility] [address] [place] [address] INR Coag (PPP) [Relative time] 1.1 {INR} Normal 0.9 - 1.1 [facility] Comment on above: Performed By: #### E SRWS #### [facility] [address] [place] [address] PT Coag (PPP) [Time] 12.9 s Normal 10.1 - 13.3 [facility] Comment on above: Result Comment: Note new reference range as of 11/11/2019. Performed By: #### E SRWS #### [facility] [address] [place] [address] Clinical Event Note-Overnigh t Eventson 01-24-2020 Clinical Event Note-Overnight Events [...] Last Updated: 24-Jan-2020 03:11 by Sen Colindres (Resident)) Normal [facility] Daily Progress Note - Critic al Care-SICUon 01-24-2020 Daily Progress Note - Critical Care-SICU Service: Critical Care Service: ServiceSICU Subjective Data: ID Statement: CHRISTIANO SANTACRUZ is a 24 year old Male who is Hospital Day # 4 and ICU Day #1 and POD #3 for 1. laparoscopic splenectomy. -Abdominal pain and distension overnight; Vomited 150cc + NG output of 150cc. KUB showed ileus. Free air noted on Upright Chest X-ray. -Continues to be in pain, requiring 50mcg IV Fentanyl every hour. Objective Data: Objective Information T PRBPSpO2 [id number]/43713 % Date/Time01/23: 11: 11: 11:00 Range(36.4C - 37.3C ) (89 [...] ----- Mn/Dy/Year TimeIntakeOutputNet Jan 24, 2020 6:00 [id number] Jan 23, 2020 10:00 [id number] Jan 23, 2020 2:00 [id number] The Intake and Output Totals for the last 24 hours are: IntakeOutputNet [id number] Drain and tube details (included in I&O [...] Medications: Medications: Continuous Medications --------- 1. fentaNYL MOHS SURGEON 1000 microgram/ NaCL 0.9% 50 mL: 1000 microgram(s) IV MOHS SURGEON 2. Lactated Ringers Infusion: 1000 mL IntraVenous [...] overlying bases. Findings are likely sales representative metals atelectasis although infectious process not excluded. The [...] it often, so will transition to Fentanyl MOHS SURGEON: -50mcg loading dose -25mcg MOHS SURGEON dose -15 min lockout -Max 100mcg/hour - [...] the note. I personally evaluated the patient [id number] Critical Care PatientI have reviewed and evaluated [...] 24-Jan-2020 13:11 by Annette Irving) Normal [facility] Daily Progress Note-Zeke licea 01-24-2020 Daily Progress Note-Zeke Surgery Service: Surgery Subjective Data: CHRISTIANO SANTACRUZ is a 24 year old Male who is Hospital Day # 4 and POD #3 for 1. laparoscopic splenectomy. NGT placed last night but removed shortly after due to discomfort. Still having abdominal pain, +hiccups, no further emesis. Passing some flatus. Objective Data: Objective Information: T PRBPSpO2 [id number]/10326% Date/Time01/23:::: 10:00 Range(36.4C - 37.3C ) (89 - 135 ) (10 - 33 ) (92 - 148 )/ (54 - 89 ) (89% - 100% ) As of 24-Jan-2020 08:00:00, patient is on 2 L/min of oxygen via nasal cannula. Highest temp of 37.3 C was recorded at 01/22 18:00 ---- Intake and Output ----- Mn/Dy/Year TimeIntakeOutputNet Jan 24, 2020 6:00 [id number] Jan 23, 2020 10:00 [id number] Jan 23, 2020 2:00 [id number] The Intake and Output Totals for the last 24 hours are: IntakeOutputNet [id number] Physical Exam: Constitutional: Patient lying comfortably in bed. Eyes: EOMI Respiratory/Thorax: Non labored breathing on 2L NC Cardiovascular: RRR Gastrointestinal: abdomen TTP diffusely, soft, distended, incisions c/d/i Genitourinary: [place] in place with clear yellow urine Extremities: No lower extremity edema, SCDs on Neurological: Alert and oriented Psychological: Appropriate mood and affect Medication: Medications: Continuous Medications --------- 1. fentaNYL MOHS SURGEON 1000 microgram/ NaCL 0.9% 50 mL: 1000 microgram(s) IV MOHS SURGEON 2. Lactated Ringers Infusion: 1000 mL IntraVenous [...] overlying bases. Findings are likely sales representative metals atelectasis although infectious process not excluded.] [The [...] 2020 5:43AM] Assessment and Plan: Assessment: Christiano Santacruz is a 24yo M with hereditary spherocytosis [...] to transfer to [facility] on [address] Martina Kaufman PGY-4 [facility] p: [phone] Signature/Cosignature/A ttestation: Note Completion: I am a: [...] the note. I personally evaluated the patient [id number] Comments/ Additional Findings Hg stable. not had bowel movement. abdomen benign. will transfer to floor Electronic Signatures: Annette Kaufman (Resident)) (Signed 24-Jan-2020 11:02) Authored: Service, Subjective Data, Objective Data, Assessment and Plan, Signature/Cosignature/A ttestation Eagle Mcmanus) (Signed 25-Jan-2020 20:14) Authored: Signature/Cosignature/A ttestation Co-Signer: Service, Subjective Data, Objective Data, Assessment and Plan, Signature/Cosignature/A ttestation Last Updated: 25-Jan-2020 20:14 by Eagle Mcmanus) Normal [facility] FIBRINOGENon 01-24-2020 FIBRINOGEN 673 mg/dL High 200 - 400 [facility] Comment on above: Performed By: #### E SRWS #### [facility] [address] [place] [address] MAGNESIUMon 01-24-2020 Magnesium [Mass/Vol] 2.38 mg/dL Normal 1.60 - 2.40 [facility] Comment on above: Performed By: #### E SRWS #### [facility] [address] [place] [address] RENAL FUNCTION PANELon 01-23 Albumin [Mass/Vol] 3.9 g/dL Normal 3.4 - 5.0 [facility] Comment on above: Performed By: #### E SRWS #### [facility] [address] [place] [address] Anion gap [Moles/Vol] 12 mmol/L Normal 10 - 20 [facility] Comment on above: Performed By: #### E SRWS #### [facility] [address] [place] [address] Calcium [Mass/Vol] 8.7 mg/dL Normal 8.6 - 10.6 [facility] Comment on above: Performed By: #### E SRWS #### [facility] [address] [place] [address] Chloride [Moles/Vol] 101 mmol/L Normal 98 - 107 [facility] [place] Comment on above: Performed By: #### E SRWS #### [facility] [address] [place] [address] Creatinine [Mass/Vol] 0.65 mg/dL Normal 0.50 - 1.30 [facility] Comment on above: Performed By: #### E SRWS #### [facility] [address] [place] [address] GFR- AM. >60 Normal >60 [facility] Comment on above: Result Comment: CALC ULATIONS OF ESTIMATED GFR ARE PERFORMED USING THE MDRD STUDY EQUATION FOR THE IDMS-TRACEABLE CREATININE METHODS. CLIN CHEM 2007;53:766-72 Performed By: #### E SRWS #### [facility] [address] [place] [address] GFR-NON AM. >60 Normal >60 [facility] Comment on above: Performed By: #### E SRWS #### [facility] [address] [place] [address] Glucose [Mass/Vol] 109 mg/dL High 74 - 99 [facility] Comment on above: Performed By: #### E SRWS #### [facility] [address] [place] [address] HCO3 (Bld) [Moles/Vol] 30 mmol/L Normal 21 - 32 [facility] Comment on above: Performed By: #### E SRWS #### [facility] [address] [place] [address] Phosphate [Mass/Vol] 2.4 mg/dL Low 2.5 - 4.9 [facility] [place] Comment on above: Result Comment: The performance characteristics of phosphorus testing in heparinized plasma have been validated by the individual laboratory site where testing is performed. Testing on heparinized plasma is not approved by the FDA; however, such approval is not necessary. Performed By: #### E SRWS #### [facility] [address] [place] [address] Potassium [Moles/Vol] 4.1 mmol/L Normal 3.5 - 5.3 [facility] Comment on above: Result Comment: MILD HEMOLYSIS DETECTED. The result may be falsely elevated due to hemolysis or other interferents. Clinical correlation is recommended. Repeat testing may be considered. Performed By: #### E SRWS #### [facility] [address] [place] [address] Sodium [Moles/Vol] 139 mmol/L Normal 136 - 145 [facility] Comment on above: Performed By: #### E SRWS #### [facility] [address] [place] [address] Urea nitrogen [Mass/Vol] 9 mg/dL Normal 6 - 23 [facility] Comment on above: Performed By: #### E SRWS #### [facility] [address] [place] [address] TH ABDOMEN AP VIEWon 020 ABDOMEN AP VIEW Patient Name: CHRISTIANO SANTACRUZ STUDY: ABDOMEN AP VIEW; 01/24/2020 2:34 am INDICATION: nausea and eructation. COMPARISON: None. ACCESSION NUMBER(S): [id number] ORDERING CLINICIAN: SEN COLINDRES FINDINGS: There is [...] as stated. This study was interpreted at [facility], [place], [place]. Findings were communicated by Clark Rosado MD (president and chief operating officer) to Dr. Gupta on 01/24/2020 at 05:40 with readback verification. Electronically signed by: Spencer BARRETO MD [facility] TH CHEST 1 VIEWon 01-24-2020 TH CHEST 1 VIEW Patient Name: CHRISTIANO SANTACRUZ STUDY: CHEST 1 VIEW; 01/24/2020 6:44 am INDICATION: upright if possible, rule out free air. COMPARISON: KUB 01/24/2020, 2:34 a.m. ACCESSION NUMBER(S): [id number] ORDERING CLINICIAN: JIM GUPTA FINDINGS: Upright AP [...] overlying bases. Findings are likely sales representative metals atelectasis although infectious process not excluded. The critical information above was relayed directly by Dr. Leslie by telephone to Dr. Salmeron On 01/24/2020 at 9 a.m. with readback verification. Electronically signed by: Spencer BARRETO MD Normal [facility] CALCIUM, IONIZEDon 0 CALCIUM,IONIZED 1.13 mmol/L Normal 1.10 - 1.33 [facility] Comment on above: Result Comment: The performance characteristics of ionized calcium tested in heparinized plasma or serum have been validated by the individual laboratory site where testing is performed. Testing on heparinized plasma or serum is not approved by the FDA; however, such approval is not necessary. Performed By: #### U MELISA #### [facility] [address] [place] [address] CBCon 01-23-2020 Erythrocyte distribution width (RBC) [Ratio] 17.0 % High 11.5 - 14.5 [facility] Comment on above: Performed By: #### E SRWS #### [facility] [address] [place] [address] Hematocrit (Bld) [Volume fraction] 26.4 % Low 41.0 - 52.0 [facility] Comment on above: Performed By: #### E SRWS #### [facility] [address] [place] [address] Hemoglobin (Bld) [Mass/Vol] 8.9 g/dL Low 13.5 - 17.5 [facility] Comment on above: Performed By: #### E SRWS #### [facility] [address] [place] [address] MCHC (RBC) [Mass/Vol] 33.7 g/dL Normal 32.0 - 36.0 [facility] Comment on above: Performed By: #### E SRWS #### [facility] [address] [place] [address] MCV (RBC) [Entitic vol] 92 fL Normal 80 - 100 [facility] Comment on above: Performed By: #### E SRWS #### [facility] [address] [place] [address] Nucleated RBC/100 WBC (Bld) [Ratio] 0.3 /100 WBC Normal 0.0-0.0 [facility] Comment on above: Performed By: #### E SRWS #### [facility] [address] [place] [address] Platelets (Bld) [#/Vol] 158 10*3/uL Normal 150 - 450 [facility] Comment on above: Performed By: #### E SRWS #### [facility] [address] [place] [address] RBC (Bld) [#/Vol] 2.87 x10E12/L Low 4.50 - 5.90 [facility] Comment on above: Performed By: #### E SRWS #### [facility] [address] [place] [address] WBC (Bld) [#/Vol] 20.9 10*3/uL High 4.4 - 11.3 [facility] Comment on above: Performed By: #### E SRWS #### [facility] [address] [place] [address] Erythrocyte distribution width (RBC) [Ratio] 16.9 % High 11.5 - 14.5 [facility] Comment on above: Performed By: #### West BILI #### [facility] [address] [place] [address] Hematocrit (Bld) [Volume fraction] 26.0 % Low 41.0 - 52.0 [facility] Comment on above: Performed By: #### West BILI #### [facility] [address] [place] [address] Hemoglobin (Bld) [Mass/Vol] 9.0 g/dL Low 13.5 - 17.5 [facility] Comment on above: Performed By: #### West BILI #### [facility] [address] [place] [address] MCHC (RBC) [Mass/Vol] 34.6 g/dL Normal 32.0 - 36.0 [facility] Comment on above: Performed By: #### D BILI #### [facility] [address] [place] [address] MCV (RBC) [Entitic vol] 90 fL Normal 80 - 100 [facility] Comment on above: Performed By: #### D BILI #### [facility] [address] [place] [address] Nucleated RBC/100 WBC (Bld) [Ratio] 0.3 /100 WBC Normal 0.0-0.0 [facility] Comment on above: Performed By: #### D BILI #### [facility] [address] [place] [address] Platelets (Bld) [#/Vol] 139 10*3/uL Low 150 - 450 [facility] Comment on above: Performed By: #### D BILI #### [facility] [address] [place] [address] RBC (Bld) [#/Vol] 2.88 x10E12/L Low 4.50 - 5.90 [facility] Comment on above: Performed By: #### D BILI #### [facility] [address] [place] [address] WBC (Bld) [#/Vol] 20.3 10*3/uL High 4.4 - 11.3 [facility] Comment on above: Performed By: #### D BILI #### [facility] [address] [place] [address] Erythrocyte distribution width (RBC) [Ratio] 16.8 % High 11.5 - 14.5 [facility] Comment on above: Performed By: #### U MELISA #### [facility] [address] [place] [address] Hematocrit (Bld) [Volume fraction] 27.2 % Low 41.0 - 52.0 [facility] Comment on above: Performed By: #### U MELISA #### [facility] [address] [place] [address] Hemoglobin (Bld) [Mass/Vol] 9.3 g/dL Low 13.5 - 17.5 [facility] Comment on above: Performed By: #### U MELISA #### [facility] [address] [place] [address] MCHC (RBC) [Mass/Vol] 34.2 g/dL Normal 32.0 - 36.0 [facility] Comment on above: Performed By: #### U MELISA #### [facility] [address] [place] [address] MCV (RBC) [Entitic vol] 89 fL Normal 80 - 100 [facility] Comment on above: Performed By: #### U MELISA #### [facility] [address] [place] [address] Nucleated RBC/100 WBC (Bld) [Ratio] 0.4 /100 WBC Normal 0.0-0.0 [facility] Comment on above: Performed By: #### U MELISA #### [facility] [address] [place] [address] Platelets (Bld) [#/Vol] 121 10*3/uL Low 150 - 450 [facility] Comment on above: Performed By: #### U MELISA #### [facility] [address] [place] [address] RBC (Bld) [#/Vol] 3.04 x10E12/L Low 4.50 - 5.90 [facility] Comment on above: Performed By: #### U MELISA #### [facility] [address] [place] [address] WBC (Bld) [#/Vol] 18.6 10*3/uL High 4.4 - 11.3 [facility] Comment on above: Performed By: #### U MELISA #### [facility] [address] [place] [address] Erythrocyte distribution width (RBC) [Ratio] 17.1 % High 11.5 - 14.5 [facility] Comment on above: Performed By: #### U MELISA #### [facility] [address] [place] [address] Hematocrit (Bld) [Volume fraction] 19.6 % Low 41.0 - 52.0 [facility] Comment on above: Performed By: #### U MELISA #### [facility] [address] [place] [address] Hemoglobin (Bld) [Mass/Vol] 7.0 g/dL Low 13.5 - 17.5 [facility] Comment on above: Performed By: #### U MELISA #### [facility] [address] [place] [address] MCHC (RBC) [Mass/Vol] 35.7 g/dL Normal 32.0 - 36.0 [facility] Comment on above: Performed By: #### U MELISA #### [facility] [address] [place] [address] MCV (RBC) [Entitic vol] 86 fL Normal 80 - 100 [facility] Comment on above: Performed By: #### U MELISA #### [facility] [address] [place] [address] Nucleated RBC/100 WBC (Bld) [Ratio] 0.3 /100 WBC Normal 0.0-0.0 [facility] Comment on above: Performed By: #### U MELISA #### [facility] [address] [place] [address] Platelets (Bld) [#/Vol] 124 10*3/uL Low 150 - 450 [facility] Comment on above: Performed By: #### U MELISA #### [facility] [address] [place] [address] RBC (Bld) [#/Vol] 2.29 x10E12/L Low 4.50 - 5.90 [facility] Comment on above: Performed By: #### U MELISA #### [facility] [address] [place] [address] WBC (Bld) [#/Vol] 16.1 10*3/uL High 4.4 - 11.3 [facility] Comment on above: Performed By: #### U MELISA #### [facility] [address] [place] [address] CBC AND DIFFERENTIALon 01-22 % AUTOMATED IMMATURE GRAN 0.8 % Normal 0.0 - 0.9 [facility] Comment on above: Result Comment: Sisi ture Granulocyte Count (IG) includes promyelocytes, myelocytes and metamyelocytes but does not include bands. Percent differential counts (%) should be interpreted in the context of the absolute cell counts (cells/L). Performed By: #### E SRWS #### [facility] [address] [place] [address] Basophils (Bld) [#/Vol] 0.02 10*3/uL Normal 0.00 - 0.10 [facility] Comment on above: Performed By: #### E SRWS #### [facility] [address] [place] [address] Basophils/100 WBC (Bld) 0.1 % Normal 0.0 - 2.0 [facility] Comment on above: Performed By: #### E SRWS #### [facility] [address] [place] [address] Eosinophils (Bld) [#/Vol] 0.01 10*3/uL Normal 0.00 - 0.70 [facility] Comment on above: Performed By: #### E SRWS #### [facility] [address] [place] [address] Eosinophils/100 WBC (Bld) 0.0 % Normal 0.0 - 6.0 [facility] Comment on above: Performed By: #### E SRWS #### [facility] [address] [place] [address] Erythrocyte distribution width (RBC) [Ratio] 17.0 % High 11.5 - 14.5 [facility] Comment on above: Performed By: #### E SRWS #### [facility] [address] [place] [address] Hematocrit (Bld) [Volume fraction] 27.6 % Low 41.0 - 52.0 [facility] Comment on above: Performed By: #### E SRWS #### [facility] [address] [place] [address] Hemoglobin (Bld) [Mass/Vol] 9.3 g/dL Low 13.5 - 17.5 [facility] Comment on above: Performed By: #### E SRWS #### [facility] [address] [place] [address] Lymphocytes (Bld) [#/Vol] 1.26 10*3/uL Normal 1.20 - 4.80 [facility] Comment on above: Performed By: #### E SRWS #### [facility] [address] [place] [address] Lymphocytes/100 WBC (Bld) 5.7 % Normal 13.0 - 44.0 [facility] Comment on above: Performed By: #### E SRWS #### [facility] [address] [place] [address] MCHC (RBC) [Mass/Vol] 33.7 g/dL Normal 32.0 - 36.0 [facility] Comment on above: Performed By: #### E SRWS #### [facility] [address] [place] [address] MCV (RBC) [Entitic vol] 92 fL Normal 80 - 100 [facility] Comment on above: Performed By: #### E SRWS #### [facility] [address] [place] [address] Monocytes (Bld) [#/Vol] 2.68 10*3/uL High 0.10 - 1.00 [facility] Comment on above: Performed By: #### E SRWS #### [facility] [address] [place] [address] Monocytes/100 WBC (Bld) 12.2 % Normal 2.0 - 10.0 [facility] Comment on above: Performed By: #### E SRWS #### [facility] [address] [place] [address] Neutrophils (Bld) [#/Vol] 17.80 10*3/uL High 1.20 - 7.70 [facility] Comment on above: Performed By: #### E SRWS #### [facility] [address] [place] [address] Neutrophils/100 WBC (Bld) 81.2 % Normal 40.0 - 80.0 [facility] Comment on above: Performed By: #### E SRWS #### [facility] [address] [place] [address] Nucleated RBC/100 WBC (Bld) [Ratio] 0.3 /100 WBC Normal 0.0-0.0 [facility] Comment on above: Performed By: #### E SRWS #### [facility] [address] [place] [address] Platelets (Bld) [#/Vol] 160 10*3/uL Normal 150 - 450 [facility] Comment on above: Performed By: #### E SRWS #### [facility] [address] [place] [address] RBC (Bld) [#/Vol] 3.00 x10E12/L Low 4.50 - 5.90 [facility] Comment on above: Performed By: #### E SRWS #### [facility] [address] [place] [address] WBC (Bld) [#/Vol] 22.0 10*3/uL High 4.4 - 11.3 [facility] Comment on above: Performed By: #### E SRWS #### [facility] [address] [place] [address] COAGULATION SCREENon 020 aPTT Coag (Bld) [Time] Canceled Normal [facility] Comment on above: Order Comment: TEST COAGULATION SCREEN WAS CANCELLED, 01/23/2020 07:00 NO SPECIMEN RECEIVEDIN LAB. Result Comment: Note new reference range as of 11/11/2019. THE APTT IS NO LONGER USED FOR MONITORING UNFRACTIONATED HEPARIN THERAPY. FOR MONITORING HEPARIN THERAPY, USE THE HEPARIN ASSAY. Performed By: #### West BILNaveed #### [facility] [address] [place] [address] INR Coag (PPP) [Relative time] Canceled Normal [facility] Comment on above: Order Comment: TEST COAGULATION SCREEN WAS CANCELLED, 01/23/2020 07:00 NO SPECIMEN RECEIVEDIN LAB. Performed By: #### D BILI #### [facility] [address] [place] [address] PT Coag (PPP) [Time] Canceled Normal [facility] [place] Comment on above: Order Comment: TEST COAGULATION SCREEN WAS CANCELLED, 01/23/2020 07:00 NO SPECIMEN RECEIVEDIN LAB. Result Comment: Note new reference range as of 11/11/2019. Performed By: #### D BILI #### [facility] [address] [place] [address] aPTT Coag (Bld) [Time] 19 s Low 25 - 35 [facility] Comment on above: Result Comment: Note new reference range as of 11/11/2019. THE APTT IS NO LONGER USED FOR MONITORING UNFRACTIONATED HEPARIN THERAPY. FOR MONITORING HEPARIN THERAPY, USE THE HEPARIN ASSAY. Performed By: #### U MELISA #### [facility] [address] [place] [address] INR Coag (PPP) [Relative time] 1.2 {INR} High 0.9 - 1.1 [facility] Comment on above: Performed By: #### U MELISA #### [facility] [address] [place] [address] PT Coag (PPP) [Time] 14.0 s High 10.1 - 13.3 [facility] Comment on above: Result Comment: Note new reference range as of 11/11/2019. Performed By: #### U MELISA #### [facility] [address] [place] [address] Clinical Event Note-Concern for Bleedingon 01-23-2020 Clinical [...] by Moy Chino ( (Resident)) Normal [facility] Daily Progress Note - Critic al Gordy 01-23-2020 Daily Progress Note - Critical Care Subjective Data: ID Statement: CHRISTIANO SANTACRUZ is a 24 year old Male who is Hospital Day # 3 and ICU Day #2 and POD #2 for 1. laparoscopic splenectomy. Objective Data: Objective Information T PRBPSpO2 [id number]/4791% Date/Time01/22 4: 6: 6: 6: 6:00 Range(36.3C [...] ----- Mn/Dy/Year TimeIntakeOutputNet Jan 23, 2020 6:00 [id number] Jan 22, 2020 10:00 [id number] Jan 22, 2020 2:00 [id number] The Intake and Output Totals for the last 24 hours are: [facility] [id number] Drain and tube details (included in I&O [...] Recent Arterial Blood Gas Results 01/22/2020 12:51 [id number] pH7.36 [id number] SO299 Base Excess-2.1 Aowckohfego07.2 Assessment and Plan: Daily Risk Screen: Does patient have a central lineno Does patient have an indwelling urinary catheteryes Plan for indwelling urinary catheter removal todayyes Is the patient intubatedno Assessment/Plan: Assessment/Plan: Neuro: AOx3. 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 I personally evaluated the patient [id number] Critical Care PatientI have reviewed and evaluated [...] 23-Jan-2020 13:17 by Annette Irving) Normal [facility] Daily Progress Note-Surgeryo n 01-23-2020 Daily Progress Note-Surgery Service: Surgery Subjective Data: CHRISTIANO SANTACRUZ is a 24 year old Male who [...] yesterday. Objective Data: Objective Information: T PRBPSpO2 [id number]/72447 % Date/Time01/22 4: 7: 7: 7: 7:00 [...] ----- Mn/Dy/Year TimeIntakeOutputNet Jan 23, 2020 6:00 [id number] Jan 22, 2020 10:00 [id number] Jan 22, 2020 2:00 [id number] The Intake and Output Totals for the last 24 hours are: IntakeOutputNet [id number] Physical Exam: Constitutional: Patient lying comfortably in [...] Recent Arterial Blood Gas Results 01/22/2020 12:51 [id number] pH7.36 [id number] SO299 Base Excess-2.1 [id number] Assessment and Plan: Comorbidities: Comorbidity: Other Assessment: Christiano Santacruz is a 24yo M with hereditary spherocytosis [...] MSK: Continue bedrest Dispo: pending transfer to RNF when stable Discussed with Dr. Martina Sylvester, DO PGY-1 [facility] p: [phone] Signature/Cosignature/A ttestation: Note Completion: I am a: Resident/Fellow Attending AttestationI saw and evaluated the patient. I personally obtained the boss and critical portions of the history and physical exam or was physically present for bsos and critical portions performed by the resident/fellow. I reviewed the resident/fellows documentation and discussed the patient with the resident/fellow. I agree with the resident/fellows medical decision making as documented in the note. I personally evaluated the patient [id number] Electronic Signatures: Eagle Mcmanus) (Signed 23-Jan-2020 08:13) Authored: Signature/Cosignature/A ttestation Co-Signer: Service, Subjective Data, Objective Data, Assessment and Plan, Signature/Cosignature/A ttestation Rosie Sylvester (Resident)) (Signed 23-Jan-2020 08:02) Authored: Service, Subjective Data, Objective Data, Assessment and Plan, Signature/Cosignature/A ttestation Last Updated: 23-Jan-2020 08:13 by Eagle Mcmanus) Normal [facility] FIBRINOGENon 01-23-2020 FIBRINOGEN Canceled Normal [facility] Comment on above: Order Comment: TEST FIBRINOGEN WAS CANCELLED, 01/23/2020 07:00 NO SPECIMEN RECEIVED IN LAB. Performed By: #### D BILI #### [facility] [address] [place] [address] FIBRINOGEN 248 mg/dL Normal 200 - 400 [facility] Comment on above: Performed By: #### U MELISA #### [facility] [address] [place] [address] GLUCOSE-POCTon 01-23-2020 Glucose [Mass/Vol] 116 mg/dL High 74 - 99 [facility] Comment on above: Result Comment: Glu2 : Fingertip - Capillar Performed By: #### U MELISA #### [facility] [address] [place] [address] LACTATEon 01-23-2020 Lactate [Moles/Vol] Canceled Normal [facility] Comment on above: Order Comment: TEST LACTATE WAS CANCELLED, 01/23/2020 05:03 NO SPECIMEN RECEIVED IN LAB. Result Comment: Dacia puncture immediately after or during the administration of Metamizole may lead to falsely low results. Testing should be performed immediately prior to Metamizole dosing. Performed By: #### D BILI #### [facility] [address] [place] [address] MAGNESIUMon 01-23-2020 Magnesium [Mass/Vol] 2.26 mg/dL Normal 1.60 - 2.40 [facility] Comment on above: Performed By: #### D BILI #### [facility] [address] [place] [address] RENAL FUNCTION PANELon 01-22 Albumin [Mass/Vol] 3.8 g/dL Normal 3.4 - 5.0 [facility] Comment on above: Performed By: #### D BILI #### [facility] [address] [place] [address] Anion gap [Moles/Vol] 8 mmol/L Low 10 - 20 [facility] Comment on above: Performed By: #### D BILI #### [facility] [address] [place] [address] Calcium [Mass/Vol] 8.0 mg/dL Low 8.6 - 10.6 [facility] Comment on above: Performed By: #### D BILI #### [facility] [facility] [address] [place] [address] Chloride [Moles/Vol] 104 mmol/L Normal 98 - 107 [facility], [place], [facility] Comment on above: Performed By: #### D BILI #### [facility] [address] [place] [address] Creatinine [Mass/Vol] 0.86 mg/dL Normal 0.50 - 1.30 [facility] Comment on above: Performed By: #### D BILI #### [facility] [address] [place] [address] GFR- AM. >60 Normal >60 [facility] Comment on above: Result Comment: CALC ULATIONS OF ESTIMATED GFR ARE PERFORMED USING THE MDRD STUDY EQUATION FOR THE IDMS-TRACEABLE CREATININE METHODS. CLIN CHEM 2007;53:766-72 Performed By: #### West BILI #### [facility] [address] [place] [address] GFR-NON AM. >60 Normal >60 [facility] Comment on above: Performed By: #### West BILI #### DANIELLE [facility] [address] [place] [address] Glucose [Mass/Vol] 123 mg/dL High 74 - 99 [facility] Comment on above: Performed By: #### West BILI #### DANIELLE [facility] [address] [place] [address] HCO3 (Bld) [Moles/Vol] 31 mmol/L Normal 21 - 32 [facility] Comment on above: Performed By: #### West BILI #### DANIELLE [facility] [address] [place] [address] Phosphate [Mass/Vol] 2.8 mg/dL Normal 2.5 - 4.9 [facility] [place], [facility] Comment on above: Result Comment: The performance characteristics of phosphorus testing in heparinized plasma have been validated by the individual laboratory site where testing is performed. Testing on heparinized plasma is not approved by the FDA; however, such approval is not necessary. Performed By: #### West BILI #### DANIELLE [facility] [address] [place] [address] Potassium [Moles/Vol] 4.1 mmol/L Normal 3.5 - 5.3 [facility] Comment on above: Performed By: #### West BILI #### DANI[facility]LE [facility] [address] [place] [address] Sodium [Moles/Vol] 139 mmol/L Normal 136 - 145 [facility] Comment on above: Performed By: #### West BILI #### [facility] [address] [facility] [place] [address] Urea nitrogen [Mass/Vol] 12 mg/dL Normal 6 - 23 [facility] Comment on above: Performed By: #### West BILI #### DANIELLE [facility] [address] [place] [address] 3RD ORD/ABD-Aon 01-22-2020 3RD ORD/ABD-A Patient Name: CHRISTIANO SANTACRUZ STUDY: VASCULAR EMBO/OCCL, INCLUDE S; ADD //A-P; [...] of the abdomen and pelvis ACCESSION NUMBER(S): [id number]; [id number]; [id number]; [id number]; [id number]; [id number]; [id number]; [id number]; [id number]; [id number]; [id number] ORDERING CLINICIAN: FARZAD KOENIG OPERATORS: Dr. Sg [...] The needle was exchanged for a 5 Colombian transitional catheter. The inner dilator and the 0.018 wire were removed and a 0.035 wire was advanced into the abdominal aorta. The transitional catheter was exchanged for a 5 Colombian vascular sheath, which was attached to a heparinized pressure bag of normal saline. Right common femoral arteriogram was performed which demonstrates adequate arterial access for use of closure device, cephalad to the bifurcation and caudad to the inferior epigastric artery origin. A 5 Colombian Cobra C2 catheter was advanced over the [...] extravasation. Electronically signed by: FREDDIE HURT MD [facility] ADD /A-Felice 01-22-2020 ADD /A-P Patient Name: CHRISTIANO SANTACRZU STUDY: VASCULAR EMBO/OCCL, INCLUDE S; ADD /A-P; [...] of the abdomen and pelvis ACCESSION NUMBER(S): [id number]; [id number]; [id number]; [id number]; [id number]; [id number]; [id number]; [id number]; [id number]; [id number]; [id number] ORDERING CLINICIAN: FARZAD KOENIG OPERATORS: Dr. Sg [...] The needle was exchanged for a 5 Colombian transitional catheter. The inner dilator and the 0.018 wire were removed and a 0.035 wire was advanced into the abdominal aorta. The transitional catheter was exchanged for a 5 Colombian vascular sheath, which was attached to a heparinized pressure bag of normal saline. Right common femoral arteriogram was performed which demonstrates adequate arterial access for use of closure device, cephalad to the bifurcation and caudad to the inferior epigastric artery origin. A 5 [place]ian Cobra C2 catheter was advanced over the [...] signed by: FREDDIE HURT MD Normal [facility] ARTERIAL FULL PANELon 2019 Anion gap [Moles/Vol] 11 mmol/L Normal 10 - 25 [facility] Comment on above: Performed By: #### L DH #### [facility] [address] [place] [address] BASE EXCESS-BLOOD -2.1 mmol/L Low -2.0 - 3.0 [facility] Comment on above: Performed By: #### L DH #### DANIELLE [facility] [address] [place] [address] CALCIUM,IONIZED 1.13 mmol/L Normal 1.10 - 1.33 [facility] Comment on above: Performed By: #### L DH #### DANIELLE [facility] [address] [place] [address] Chloride [Moles/Vol] 103 mmol/L Normal 98 - 107 [facility] [place] Comment on above: Performed By: #### L DH #### DANIELLE [facility] [address] [facility] [address] Glucose [Mass/Vol] 147 mg/dL High 74 - 99 [facility] Comment on above: Performed By: #### L DH #### DANIELLE CUENCAR [address] [place] [address] Hematocrit (Bld) [Volume fraction] 23.0 % Low 41.0 - 52.0 [facility] Comment on above: Performed By: #### L DH #### DANIELLE [facility] [address] [place] [address] HGB,CALCULATED 7.8 g/dL Low 13.5 - 17.5 [facility] Comment on above: Performed By: #### L DH #### [facility]ANIEL[facility] [address] [place] [address] Lactate [Moles/Vol] 3.4 mmol/L High 0.4 - 2.0 [facility] Comment on above: Performed By: #### L DH #### DANIELLE [facility] [address] [place] [address] Oxygen (Bld) [Partial pressure] 154 mm[Hg] High 85 - 95 [facility] Comment on above: Performed By: #### L DH #### DANIELLE [facility] [address] [place] [address] PCO2 41 mmHg Normal 38 - 42 [facility] Comment on above: Performed By: #### L DH #### DANIELLE [facility] CN[facility] [address] [place] [address] pH (Bld) 7.36 [pH] Low 7.38 - 7.42 [facility] Comment on above: Performed By: #### L DH #### [facility] [address] [place] [address] Potassium [Moles/Vol] 5.3 mmol/L Normal 3.5 - 5.3 [facility] Comment on above: Performed By: #### L DH #### [facility] [address] [place] [address] RBC (Bld) [#/Vol] 23.2 mmol/L Normal 22.0 - 26.0 [facility] Comment on above: Performed By: #### L #### DANIELLE [facility] [address] [place] [address] SO2 99 % Normal 94 - 100 [facility] Comment on above: Performed By: #### L DH #### D[facility]LE [facility] [address] [place] [address] Sodium [Moles/Vol] 132 mmol/L Low 136 - 145 [facility] Comment on above: Performed By: #### L #### [facility] [address] [place] [address] BA CTA ABDOMEN PELVIS WITH C ONT INCL NON CONT IMAGE W POST PROCon 01-22-2020 BA CTA ABDOMEN PELVIS WITH CONT INCL NON CONT IMAGE W POST PROC Patient Name: CHRISTIANO SANTACRUZ STUDY: CTA ABDOMEN PELVIS WITH CONT INCL NON CONT IMAGE W POST PROC; 01/22/2020 9:40 am INDICATION: Bleeding s/p spleenectomy, Lie Flat: Yes. COMPARISON: CT abdomen pelvis dated 11/14/2019 ACCESSION NUMBER(S): [id number] ORDERING CLINICIAN: ANNETTE KAUFMAN TECHNIQUE: CT of [...] as stated. This study was interpreted at [facility], [place], [place]. Electronically signed by: FREDDIE HURT MD Normal [facility] BASIC METABOLIC PANELon 08-0 -2020 Anion gap [Moles/Vol] 15 mmol/L Normal 10 - 20 [facility] Comment on above: Performed By: #### C BCDF #### DANIELLE [facility] [address] [place] [address] Calcium [Mass/Vol] 8.1 mg/dL Low 8.6 - 10.6 [facility] Comment on above: Performed By: #### C BCDF #### DANIELLE [facility] [address] [place] [address] Chloride [Moles/Vol] 103 mmol/L Normal 98 - 107 [facility] [place] Comment on above: Performed By: #### C BCDF #### DANIELLE [facility] [address] [place] [address] Creatinine [Mass/Vol] 1.08 mg/dL Normal 0.50 - 1.30 [facility] Comment on above: Performed By: #### C BCDF #### DANIELLE [facility] [address] [place] [address] GFR- AM. >60 Normal >60 [facility] Comment on above: Result Comment: CALC ULATIONS OF ESTIMATED GFR ARE PERFORMED USING THE MDRD STUDY EQUATION FOR THE IDMS-TRACEABLE CREATININE METHODS. CLIN CHEM 2007;53:766-72 Performed By: #### C BCDF #### DANIELLE [facility] [address] [place] [address] GFR-NON AM. >60 Normal >60 [facility] Comment on above: Performed By: #### C BCDF #### DANIELLE [facility] [address] [place] [address] Glucose [Mass/Vol] 191 mg/dL High 74 - 99 [facility] Comment on above: Performed By: #### C BCDF #### DANIELLE [facility] [address] [place] [address] HCO3 (Bld) [Moles/Vol] 24 mmol/L Normal 21 - 32 [facility] Comment on above: Performed By: #### C BCDF #### D[facility]ELLE [facility] [address] [place] [address] Potassium [Moles/Vol] 4.2 mmol/L Normal 3.5 - 5.3 [facility] Comment on above: Performed By: #### C BCDF #### DANIELLE [facility]Z CN[facility] [address] [place] [address] Sodium [Moles/Vol] 138 mmol/L Normal 136 - 145 [facility] Comment on above: Performed By: #### C BCDF #### DANIELLE [facility]Z CNTR [address] [place] [address] Urea nitrogen [Mass/Vol] 17 mg/dL Normal 6 - 23 [facility] Comment on above: Performed By: #### C BCDF #### DANIELLE [facility] [address] [place] [address] CALCIUM, IONIZEDon 0 CALCIUM,IONIZED 1.12 mmol/L Normal 1.10 - 1.33 [facility] Comment on above: Result Comment: The performance characteristics of ionized calcium tested in heparinized plasma or serum have been validated by the individual laboratory site where testing is performed. Testing on heparinized plasma or serum is not approved by the FDA; however, such approval is not necessary. Performed By: #### L DH #### DANIELLE CRUZ [facility] [address] [place] [address] CBCon 01-22-2020 Erythrocyte distribution width (RBC) [Ratio] 17.3 % High 11.5 - 14.5 [facility] Comment on above: Performed By: #### L DH #### DANIELLE CR[facility] [address] [place] [address] Hematocrit (Bld) [Volume fraction] 25.8 % Low 41.0 - 52.0 [facility] Comment on above: Performed By: #### L DH #### DANIELLE CR[facility] [address] [place] [address] Hemoglobin (Bld) [Mass/Vol] 8.9 g/dL Low 13.5 - 17.5 [facility] Comment on above: Performed By: #### L DH #### [facility] [address] [place] [address] MCHC (RBC) [Mass/Vol] 34.5 g/dL Normal 32.0 - 36.0 [facility] Comment on above: Performed By: #### L DH #### [facility] [address] [place] [address] MCV (RBC) [Entitic vol] 88 fL Normal 80 - 100 [facility] Comment on above: Performed By: #### L DH #### [facility] [address] [place] [address] Nucleated RBC/100 WBC (Bld) [Ratio] 0.2 /100 WBC Normal 0.0-0.0 [facility] Comment on above: Performed By: #### L DH #### [facility] [address] [place] [address] Platelets (Bld) [#/Vol] 117 10*3/uL Low 150 - 450 [facility] Comment on above: Performed By: #### L DH #### [facility] [address] [place] [address] RBC (Bld) [#/Vol] 2.92 x10E12/L Low 4.50 - 5.90 [facility] Comment on above: Performed By: #### L DH #### [facility]LE [facility] [address] [place] [address] WBC (Bld) [#/Vol] 20.5 10*3/uL High 4.4 - 11.3 [facility] Comment on above: Performed By: #### L DH #### D[facility]LE [facility] [address] [place] [address] Erythrocyte distribution width (RBC) [Ratio] Canceled Normal [facility] Comment on above: Order Comment: TEST CBC WAS CANCELLED, 01/22/2020 14:55 SPECIMEN CLOTTED.PLEASE RESUBMIT. Performed By: #### L DH #### [facility]LE [facility] [address] [place] [address] Hematocrit (Bld) [Volume fraction] Canceled Normal [facility] Comment on above: Order Comment: TEST CBC WAS CANCELLED, 01/22/2020 14:55 SPECIMEN CLOTTED.PLEASE RESUBMIT. Performed By: #### L DH #### DANIELLE [facility] [address] [place] [address] Hemoglobin (Bld) [Mass/Vol] Canceled Normal [facility] Comment on above: Order Comment: TEST CBC WAS CANCELLED, 01/22/2020 14:55 SPECIMEN CLOTTED.PLEASE RESUBMIT. Performed By: #### L DH #### DANIELLE CANCER [facility] [address] [place] [address] MCHC (RBC) [Mass/Vol] Canceled Normal [facility] Comment on above: Order Comment: TEST CBC WAS CANCELLED, 01/22/2020 14:55 SPECIMEN CLOTTED.PLEASE RESUBMIT. Performed By: #### L DH #### DANIELLE CANCER [facility] [address] [place] [address] MCV (RBC) [Entitic vol] Canceled Normal [facility] Comment on above: Order Comment: TEST CBC WAS CANCELLED, 01/22/2020 14:55 SPECIMEN CLOTTED.PLEASE RESUBMIT. Performed By: #### L DH #### DANIELLE CANCER [facility] [address] [place] [address] Nucleated RBC/100 WBC (Bld) [Ratio] Canceled Normal [facility] Comment on above: Order Comment: TEST CBC WAS CANCELLED, 01/22/2020 14:55 SPECIMEN CLOTTED.PLEASE RESUBMIT. Performed By: #### L DH #### DANIELLE CANCER [facility] [address] [place] [address] Platelets (Bld) [#/Vol] Canceled Normal [facility] Comment on above: Order Comment: TEST CBC WAS CANCELLED, 01/22/2020 14:55 SPECIMEN CLOTTED.PLEASE RESUBMIT. Performed By: #### L DH #### DANIELLE CANCER [facility] [address] [place] [address] RBC (Bld) [#/Vol] Canceled Normal [facility] Comment on above: Order Comment: TEST CBC WAS CANCELLED, 01/22/2020 14:55 SPECIMEN CLOTTED.PLEASE RESUBMIT. Performed By: #### L DH #### D[facility]LE [facility] [address] [place] [address] WBC (Bld) [#/Vol] Canceled Normal [facility] Comment on above: Order Comment: TEST CBC WAS CANCELLED, 01/22/2020 14:55 SPECIMEN CLOTTED.PLEASE RESUBMIT. Performed By: #### L DH #### [facility] [address] [place] [address] Erythrocyte distribution width (RBC) [Ratio] 18.6 % High 11.5 - 14.5 [facility] Comment on above: Performed By: #### C BCDF #### DANI[facility]LE [facility] [address] [place] [address] Hematocrit (Bld) [Volume fraction] 19.9 % Low 41.0 - 52.0 [facility] Comment on above: Performed By: #### C BCDF #### [facility]LE [facility] [address] [place] [address] Hemoglobin (Bld) [Mass/Vol] 6.8 g/dL Low 13.5 - 17.5 [facility] Comment on above: Performed By: #### C BCDF #### D[facility]ELLE [facility] [address] [place] [address] MCHC (RBC) [Mass/Vol] 34.2 g/dL Normal 32.0 - 36.0 [facility] Comment on above: Performed By: #### C BCDF #### [facility]LE [facility] [address] [place] [address] MCV (RBC) [Entitic vol] 88 fL Normal 80 - 100 [facility] Comment on above: Performed By: #### C BCDF #### [facility] [address] [place] [address] Nucleated RBC/100 WBC (Bld) [Ratio] 0.0 /100 WBC Normal 0.0-0.0 [facility] Comment on above: Performed By: #### C BCDF #### D[facility] [address] [place] [address] Platelets (Bld) [#/Vol] 141 10*3/uL Low 150 - 450 [facility] Comment on above: Performed By: #### C BCDF #### [facility]LE [facility] [address] [place] [address] RBC (Bld) [#/Vol] 2.27 x10E12/L Low 4.50 - 5.90 [facility] Comment on above: Performed By: #### C BCDF #### DANIELLE [facility] [address] [place] [address] WBC (Bld) [#/Vol] 16.2 10*3/uL High 4.4 - 11.3 [facility] Comment on above: Performed By: #### C BCDF #### D[facility]ELLE [facility] [address] [place] [address] Erythrocyte distribution width (RBC) [Ratio] 18.5 % High 11.5 - 14.5 [facility] Comment on above: Performed By: #### R ETIC #### DANIELLE [facility] [address] [place] [address] Hematocrit (Bld) [Volume fraction] 25.2 % Low 41.0 - 52.0 [facility] Comment on above: Performed By: #### R ETIC #### D[facility]LE [facility] [address] [place] [address] Hemoglobin (Bld) [Mass/Vol] 8.6 g/dL Low 13.5 - 17.5 [facility] Comment on above: Performed By: #### R ETIC #### D[facility] [address] [place] [address] MCHC (RBC) [Mass/Vol] 34.1 g/dL Normal 32.0 - 36.0 [facility] Comment on above: Performed By: #### R ETIC #### DANIELLE [facility] [address] [place] [address] MCV (RBC) [Entitic vol] 85 fL Normal 80 - 100 [facility] Comment on above: Performed By: #### R ETIC #### DANIELLE [facility] [address] [place] [address] Nucleated RBC/100 WBC (Bld) [Ratio] 0.0 /100 WBC Normal 0.0-0.0 [facility] Comment on above: Performed By: #### R ETIC #### D[facility]ELLE [facility] [address] [place] [address] Platelets (Bld) [#/Vol] 160 10*3/uL Normal 150 - 450 [facility] Comment on above: Performed By: #### R ETIC #### D[facility]LE [facility] [address] [place] [address] RBC (Bld) [#/Vol] 2.95 x10E12/L Low 4.50 - 5.90 [facility] Comment on above: Performed By: #### R ETIC #### D[facility]LE [facility] [address] [place] [address] WBC (Bld) [#/Vol] 17.8 10*3/uL High 4.4 - 11.3 [facility] Comment on above: Performed By: #### R ETIC #### [facility]LE [facility] [address] [place] [address] Erythrocyte distribution width (RBC) [Ratio] 18.6 % High 11.5 - 14.5 [facility] Comment on above: Performed By: #### R ETIC #### D[facility]LE [facility] [address] [place] [address] Hematocrit (Bld) [Volume fraction] 32.4 % Low 41.0 - 52.0 [facility] Comment on above: Performed By: #### R ETIC #### D[facility]LE [facility] [address] [place] [address] Hemoglobin (Bld) [Mass/Vol] 11.2 g/dL Low 13.5 - 17.5 [facility] Comment on above: Performed By: #### R ETIC #### D[facility]LE [facility] [address] [place] [address] MCHC (RBC) [Mass/Vol] 34.6 g/dL Normal 32.0 - 36.0 [facility] Comment on above: Performed By: #### R ETIC #### DANIELLE CRUZ [facility] [address] [place] [address] MCV (RBC) [Entitic vol] 85 fL Normal 80 - 100 [facility] Comment on above: Performed By: #### R ETIC #### DANIELLE [facility] [address] [place] [address] Nucleated RBC/100 WBC (Bld) [Ratio] 0.1 /100 WBC Normal 0.0-0.0 [facility] Comment on above: Performed By: #### R ETIC #### DANIELLE [facility] [address] [place] [address] Platelets (Bld) [#/Vol] 197 10*3/uL Normal 150 - 450 [facility] Comment on above: Performed By: #### R ETIC #### DANIELLE [facility] [address] [place] [address] RBC (Bld) [#/Vol] 3.82 x10E12/L Low 4.50 - 5.90 [facility] Comment on above: Performed By: #### R ETIC #### DANIELLE [facility] [address] [place] [address] WBC (Bld) [#/Vol] 23.6 10*3/uL High 4.4 - 11.3 [facility] Comment on above: Performed By: #### R ETIC #### DANIELLE CRUZ [facility] [address] [place] [address] COAGULATION SCREENon 020 aPTT Coag (Bld) [Time] 24 s Low 25 - 35 [facility] Comment on above: Result Comment: Note new reference range as of 11/11/2019. THE APTT IS NO LONGER USED FOR MONITORING UNFRACTIONATED HEPARIN THERAPY. FOR MONITORING HEPARIN THERAPY, USE THE HEPARIN ASSAY. Performed By: #### L DH #### DANIELLE [facility] [address] [place] [address] INR Coag (PPP) [Relative time] 1.3 {INR} High 0.9 - 1.1 [facility] Comment on above: Performed By: #### L #### DANIELLE [facility] [address] [place] [address] PT Coag (PPP) [Time] 15.7 s High 10.1 - 13.3 [facility] Comment on above: Result Comment: Note new reference range as of 11/11/2019. Performed By: #### L #### DANIELLE [facility] [address] [place] [address] aPTT Coag (Bld) [Time] Canceled Normal [facility] Comment on above: Order Comment: TEST COAGULATION SCREEN WAS CANCELLED, 01/22/2020 10:23 SPECIMENCLOTTED.PLEASE RESUBMIT. Result Comment: Note new reference range as of 11/11/2019. THE APTT IS NO LONGER USED FOR MONITORING UNFRACTIONATED HEPARIN THERAPY. FOR MONITORING HEPARIN THERAPY, USE THE HEPARIN ASSAY. Performed By: #### L #### DANIELLE CANCER [facility] [address] [place] [address] INR Coag (PPP) [Relative time] Canceled Normal [facility] Comment on above: Order Comment: TEST COAGULATION SCREEN WAS CANCELLED, 01/22/2020 10:23 SPECIMENCLOTTED.PLEASE RESUBMIT. Performed By: #### L #### DANIELLE CRUZ [facility] [address] [place] [address] PT Coag (PPP) [Time] Canceled Normal [facility] [place] Comment on above: Order Comment: TEST COAGULATION SCREEN WAS CANCELLED, 01/22/2020 10:23 SPECIMENCLOTTED.PLEASE RESUBMIT. Result Comment: Note new reference range as of 11/11/2019. Performed By: #### L DH #### DANIELLE [facility] [address] [place] [address] aPTT Coag (Bld) [Time] 22 s Low 25 - 35 [facility] Comment on above: Result Comment: Note new reference range as of 11/11/2019. THE APTT IS NO LONGER USED FOR MONITORING UNFRACTIONATED HEPARIN THERAPY. FOR MONITORING HEPARIN THERAPY, USE THE HEPARIN ASSAY. Performed By: #### R ETIC #### [facility]LE [facility] [address] [place] [address] INR Coag (PPP) [Relative time] 1.2 {INR} High 0.9 - 1.1 [facility] Comment on above: Performed By: #### R ETIC #### DANIELLE [facility]CER [facility] [address] [place] [address] PT Coag (PPP) [Time] 14.4 s High 10.1 - 13.3 [facility] Comment on above: Result Comment: Note new reference range as of 11/11/2019. Performed By: #### R ETIC #### DANIELLE CANCER [facility] [address] [place] [address] COMPREHENSIVE PANELon 2019 Albumin [Mass/Vol] 3.8 g/dL Normal 3.4 - 5.0 [facility] Comment on above: Performed By: #### C BCDF #### [facility] [id number] [place] [address] ALP [Catalytic activity/Vol] 33 U/L Normal 33 - 120 [facility] Comment on above: Performed By: #### C BCDF #### [facility] [address] [place] [address] ALT [Catalytic activity/Vol] 12 U/L Normal 10 - 52 [facility] Comment on above: Result Comment: Haily ents treated with Sulfasalazine may generate falsely decreased results for ALT. Performed By: #### C BCDF #### [facility] [address] [place] [address] Anion gap [Moles/Vol] 20 mmol/L Normal 10 - 20 [facility] Comment on above: Performed By: #### C BCDF #### [facility] [address] [place] [address] AST [Catalytic activity/Vol] 14 U/L Normal 9 - 39 [facility] Comment on above: Performed By: #### C BCDF #### [facility] [address] [place] [address] Bilirubin [Mass/Vol] 1.1 mg/dL Normal 0.0 - 1.2 [facility] [place] Comment on above: Performed By: #### C BCDF #### [facility] [address] [place] [address] Calcium [Mass/Vol] 8.5 mg/dL Low 8.6 - 10.6 [facility] Comment on above: Performed By: #### C BCDF #### [facility] [address] [place] [address] Chloride [Moles/Vol] 102 mmol/L Normal 98 - 107 [facility] [place] Comment on above: Performed By: #### C BCDF #### DANIELLE [facility] [address] [place] [address] Creatinine [Mass/Vol] 1.22 mg/dL Normal 0.50 - 1.30 [facility] Comment on above: Performed By: #### C BCDF #### DANIELLE [facility] [address] [place] [address] GFR- AM. >60 Normal >60 [facility] Comment on above: Result Comment: CALC ULATIONS OF ESTIMATED GFR ARE PERFORMED USING THE MDRD STUDY EQUATION FOR THE IDMS-TRACEABLE CREATININE METHODS. CLIN CHEM 2007;53:766-72 Performed By: #### C BCDF #### [facility] [address] [place] [address] GFR-NON AM. >60 Normal >60 [facility] Comment on above: Performed By: #### C BCDF #### [facility] [address] [place] [address] Glucose [Mass/Vol] 189 mg/dL High 74 - 99 [facility] Comment on above: Performed By: #### C BCDF #### [facility] [address] [place] [address] HCO3 (Bld) [Moles/Vol] 20 mmol/L Low 21 - 32 [facility] Comment on above: Performed By: #### C BCDF #### [facility] [address] [place] [address] Potassium [Moles/Vol] 4.2 mmol/L Normal 3.5 - 5.3 [facility] Comment on above: Performed By: #### C BCDF #### [facility] [address] [place] [address] Protein [Mass/Vol] 5.0 g/dL Low 6.4 - 8.2 [facility] Comment on above: Performed By: #### C BCDF #### [facility] [address] [place] [address] Sodium [Moles/Vol] 138 mmol/L Normal 136 - 145 [facility] Comment on above: Performed By: #### C BCDF #### [facility] [address] [place] [address] Urea nitrogen [Mass/Vol] 16 mg/dL Normal 6 - 23 [facility] Comment on above: Performed By: #### C BCDF #### [facility] [address] [place] [address] Clinical Event Note-Postop C heck/Acute clinical event [...] change to NPO 01/22/2020 0418 Update Code roselia has been activated by the pt's nurse [...] Mcmanus. Adelso Lopez MD General Surgery PGY-1 [facility] Pager: [phone] Electronic Signatures: Sen Colindres ( (Resident)) (Signed 22-Jan-2020 05:22) Authored: Clinical Event Adelso Lopez (Resident)) (Signed 22-Jan-2020 05:04) Authored: Clinical Event Last Updated: 22-Jan-2020 05:22 by Sen Colindres (Resident)) Normal [facility] Clinical Event Note-Rapid re sponse/code esequiel 01-22-2020 [...] Signatures: Francisca Blanco ( (Resident)) (Signed 22-Jan-2020 06:) Authored: Clinical Event Last Updated: 22-Jan-2020: by Francisca Blanco ( (Resident)) Normal [facility] Daily Progress Note-Surgeryo n 01-22-2020 Daily Progress Note-Surgery Service: Surgery Subjective Data: CHRISTIANO SANTACRUZ is a 24 year old Male who is Hospital Day # 2 and POD #1 for 1. laparoscopic splenectomy. Patient complaining of increased pain in abdomen. Vital signs were unstable and patient became obtunded. Received 4L boluses and 3 pRBCs. Escalated to ICU. Objective Data: Objective Information: T PRBPSpO2 [id number]/73789 % Date/Time01/21 13:008 14: 14:008 14:008 14:00 Range(36.1C - 36.6C ) (88 - 136 ) (15 - 45 ) (84 - 144 )/ (51 - 99 ) (94% - 100% ) Pain reported at 01/21 13:30: sleeping ---- Intake and Output ----- Mn/Dy/Year TimeIntakeOutputNet Jan 22, 2020 2:00 [id number] Jan 22, 2020 6:00 [id number] Jan 21, 2020 10:00 [id number] The Intake and Output Totals for the last 24 hours are: IntakeOutputNet [id number] Physical Exam: Constitutional: Well developed, lying in [...] 8.1 HH Complete Blood Count Trending View [id number] 07:38:00 22-Jan-2020 04:38:00 22-Jan-2020 01:19:00 White Blood Cell Count16.2 H 17.8 H 23.6 H Nucleated Erythrocyte Count0.0 0.0 0.1 Red Blood Cell Count2.27 L 2.95 L 3.82 L HGB6.8 L 8.6 L 11.2 L HCT19.9 L 25.2 L 32.4 L MCV88 85 85 MCHC34.2 34.1 34.6 JXF536 L 160 197 RDW-CV18.6 H 18.5 H 18.6 H Assessment and Plan: Comorbidities: Comorbidity: Other Assessment: Christiano Santacruz is a 24yo M with hereditary spherocytosis [...] stable Discussed with Dr. Martina Rinaldi MD [facility] - General Surgery p: [phone] Attending: Pt had successful embolization of spleen [...] Last Updated: 22-Jan-2020 23:02 by Eagle Mcmanus) [facility] Discharge Planning Pfgg6az 0 01-22-2020 Discharge Planning Note2 Discharge Planning: Anticipated Discharge [id number] Discharge Planning 01/22/2020 Transitional Care Coordination Progress Note 1638 Patient discussed during interdisciplinary rounds. Team members present: TCC;PCBrown;;BRIA Plan per Medical team: s/p splenic embolization; transfer to floor soon Status: inpatient insurance: [employer] Discharge disposition: probable home NN Potential Barriers: none adod: 3 days Malena Abbott RN TCC doc halo..[phone] 01/24/2020 retail associate Note 1140 Pt transferred to [facility] from [facility]. Pt came over on a fentinyl MOHS SURGEON. Vitals stable on 2L O2. Pt belongings on transfer are clothing, wallet, some gifts, hot metal charger, and cell phone. pt wanted to keep his belongings at the bedside and signed the belongings form. at the bedside. Strip and flip performed with pt 4 laps sites on his abd as his only incision. No other skin issues upon transfer. (Evelyn Fuentes, CALOS LKD 55) 01/26/2020 Transitional Care Coordination Progress Note: Patient discussed during interdisciplinary rounds. Team members present: TCC and medical staff Plan per Medical/Surgical team: S/p lap Splenectomy 01/20 Payer: [employer] Status: inpatient Discharge disposition: home Potential Barriers: none ADOD: 01/27 Femi Ramos RNdouble reamer operator Coordinator pager #[phone], 01/28/20 18:28 NURSING DISCHARGE [...] Kathy Chavez RN Assessment: Discharge Planning Assessment [id number] Discharge Planning Assessment Completed byMalena Abbott RN TCC doc halo..[phone] Primary Contact Name and NumberCindy Nicholson [phone](1) Stated Reason for Admission my operation (2) Arrived FromOR (2) Readmission Within the Last 30 Daysno previous admission in last 30 days PCPDr. Alem Blunt PCP Last Date Seen12/2019 Preferred Pharmacy Name/[facility] Medication Adherence/Afford/Obtain yes InsuranceAnthem HMp Lives Withspouse(2) Living Arrangementshouse(2) Recent Falls/ Injury/ Need Assist with Ambulationdenies Prior Level of FunctioningIADL's Resource/Environmental Concernsnone(2) [facility]) Services Anticipated at Transitionnone(2) Electronic Signatures: Femi [...] - Adult v2 21-Jan-2020 18:51 Normal [facility] EACH-ADDon 01-22-2020 EACH-ADD Patient Name: CHRISTIANO SANTACRUZ STUDY: VASCULAR EMBO/OCCL, INCLUDE S; ADD /3RD/A-P; EXT-ART/UNI-A; EACH-ADD; EXT/UNI; VISCERAL; ULTRASOUND GUIDANCE FOR [...] of the abdomen and pelvis ACCESSION NUMBER(S): [id number]; [id number]; [id number]; [id number]; [id number]; [id number]; [id number]; [id number]; [id number]; [id number]; [id number] ORDERING CLINICIAN: FARZAD KOENIG OPERATORS: Dr. Sg [...] The needle was exchanged for a 5 Colombian transitional catheter. The inner dilator and the 0.018 wire were removed and a 0.035 wire was advanced into the abdominal aorta. The transitional catheter was exchanged for a 5 Colombian vascular sheath, which was attached to a heparinized pressure bag of normal saline. Right common femoral arteriogram was performed which demonstrates adequate arterial access for use of closure device, cephalad to the bifurcation and caudad to the inferior epigastric artery origin. A 5 Colombian Cobra C2 catheter was advanced over the [...] extravasation. Electronically signed by: FREDDIE HURT MD [facility] EXT-ART/UNI-Aon 01-22-2020 EXT-ART/UNI-A Patient Name: CHRISTIANO SANTACRUZ STUDY: VASCULAR EMBO/OCCL, INCLUDE S; ADD 2ND/3RD/A-P; [...] of the abdomen and pelvis ACCESSION NUMBER(S): [id number]; [id number]; [id number]; [id number]; [id number]; [id number]; [id number]; [id number]; [id number]; [id number]; [id number] ORDERING CLINICIAN: FARZAD KOENIG OPERATORS: Dr. Sg [...] The needle was exchanged for a 5 Colombian transitional catheter. The inner dilator and the 0.018 wire were removed and a 0.035 wire was advanced into the abdominal aorta. The transitional catheter was exchanged for a 5 Colombian vascular sheath, which was attached to a heparinized pressure bag of normal saline. Right common femoral arteriogram was performed which demonstrates adequate arterial access for use of closure device, cephalad to the bifurcation and caudad to the inferior epigastric artery origin. A 5 Colombian Cobra C2 catheter was advanced over the [...] extravasation. Electronically signed by: FREDDIE HURT MD [facility] EXT/UNIon 01-22-2020 EXT/UNI Patient Name: CHRISTIANO SANTACRUZ STUDY: VASCULAR EMBO/OCCL, INCLUDE S; ADD 2ND/3RD/A-P; [...] of the abdomen and pelvis ACCESSION NUMBER(S): [id number]; [id number]; [id number]; [id number]; [id number]; [id number]; [id number]; [id number]; [id number]; [id number]; [id number] ORDERING CLINICIAN: FARZAD KOENIG OPERATORS: Dr. Sg [...] The needle was exchanged for a 5 Colombian transitional catheter. The inner dilator and the 0.018 wire were removed and a 0.035 wire was advanced into the abdominal aorta. The transitional catheter was exchanged for a 5 Colombian vascular sheath, which was attached to a heparinized pressure bag of normal saline. Right common femoral arteriogram was performed which demonstrates adequate arterial access for use of closure device, cephalad to the bifurcation and caudad to the inferior epigastric artery origin. A 5 Colombian Cobra C2 catheter was advanced over the [...] signed by: FREDDIE HURT MD Normal [facility] GLUCOSE-POCTon 01-22-2020 Glucose [Mass/Vol] 183 mg/dL High 74 - 99 [facility] Comment on above: Performed By: #### R ETIC #### [facility] [address] [place] [address] Glucose [Mass/Vol] 194 mg/dL High 74 - 99 [facility] Comment on above: Performed By: #### R ETIC #### [facility] [address] [place] [address] History and Physical - Yasmine Musa 01-22-2020 History and Physical - Critical Care Service: Critical Care Service: ServiceSICU History of Present Illness: Admission Reason: postop bleeding HPI: HPI: 24 year old male with history of hereditary spherocytosis presented for splenectomy on 01/[address] Dunlap. Patient went to [facility] after surgery. This AM, on 01/21, ashley veloz was called as patient became hypotensive and [...] Objective: Objective Information: Objective Information T PRBPSpO2 Value36.508975325/68269 % Date/Time01/21 8: 13: 13: 13: 13:30 Range(36.1C - 36.6C ) (88 - 136 ) (15 - 45 ) (84 - 144 )/ (51 - 99 ) (94% - 100% ) Pain reported at 01/21 11:50: sleeping ---- Intake and Output ----- Mn/Dy/Year TimeIntakeOutputNet Jan 22, 2020 6:00 [id number] Jan 21, 2020 10:00 [id number] The Intake and Output Totals for the last 24 hours are: IntakeOutputNet [id number] Date: Weight/Scale Type: 22-Jan-2020 09:5474.6 kg 21-Jan-2020 [...] 8.1 HH Complete Blood Count Trending View [id number]-Gzq-4471 07:38:00 22-Jan-2020 04:38:00 22-Jan-2020 01:19:00 White Blood Cell Count16.2 H 17.8 H 23.6 H Nucleated Erythrocyte Count0.0 0.0 0.1 Red Blood Cell Count2.27 L 2.95 L 3.82 L HGB6.8 L 8.6 L 11.2 L HCT19.9 L 25.2 L 32.4 L MCV88 85 85 MCHC34.2 34.1 34.6 EKC041 L 160 197 RDW-CV18.6 H 18.5 H [...] Lines: 3 PIV Farzad Koenig PGY4/CA3 SICU 22334 Code Status: Code StatusFull Code Signatures/Attestation/ Certification: [...] the note. I personally evaluated the patient [id number] Critical Care PatientI have reviewed and evaluated [...] OnlyCurrent Admission Order. Admit to Inpatient Adult [facility] Admitting Diagnosis, D58.0 Hereditary spherocytosis Transfer to, [facility]: [facility] TT09 Division Admitting Service, Acute Care Surgery Level of Care, Med/Surg admit to [facility] surgery service Lynnette Kaiser Admission Order Certification [...] 22-Jan-2020 15:31 by Annette Irving) Normal [facility] LACTATEon 01-22-2020 Lactate [Moles/Vol] 8.1 mmol/L Critically high 0.4 - 2.0 [facility] Comment on above: Order Comment: CRITI FARHANA LACT CALLED TO CALEBMIRYAM GANSERGIO--RB 2ID, 01/22/2020 10:22 Result Comment: Dacia puncture immediately after or during the administration of Metamizole may lead to falsely low results. Testing should be performed immediately prior to Metamizole dosing. CRITICAL LACT CALLED TO FARTUN GANSERGIO--RB 2ID, 01/22/2020 10:22 Performed By: #### C BCDF #### [facility] [address] [place] [address] MAGNESIUMon 01-22-2020 Magnesium [Mass/Vol] 1.63 mg/dL Normal 1.60 - 2.40 [facility] Comment on above: Performed By: #### L DH #### [facility] [address] [place] [address] Magnesium [Mass/Vol] 1.60 mg/dL Normal 1.60 - 2.40 [facility] Comment on above: Performed By: #### C BCDF #### [facility] [address] [place] [address] PLASMAon 01-22-2020 PLASMA ORDER RECD Normal [facility] Comment on above: Performed By: #### C BCDF #### [facility] [address] [place] [address] RENAL FUNCTION PANELon 01-21 Albumin [Mass/Vol] 3.5 g/dL Normal 3.4 - 5.0 [facility] Comment on above: Performed By: #### L DH #### [facility] [address] [place] [address] Anion gap [Moles/Vol] 18 mmol/L Normal 10 - 20 [facility] Comment on above: Performed By: #### L DH #### [facility] [address] [place] [address] Calcium [Mass/Vol] 8.2 mg/dL Low 8.6 - 10.6 [facility] Comment on above: Performed By: #### L DH #### [facility] [address] [place] [address] Chloride [Moles/Vol] 102 mmol/L Normal 98 - 107 [facility] [place] Comment on above: Performed By: #### L DH #### [facility] [address] [place] [address] Creatinine [Mass/Vol] 0.95 mg/dL Normal 0.50 - 1.30 [facility] Comment on above: Performed By: #### L DH #### [facility] [address] [place] [address] GFR- AM. >60 Normal >60 [facility] Comment on above: Result Comment: CALC ULATIONS OF ESTIMATED GFR ARE PERFORMED USING THE MDRD STUDY EQUATION FOR THE IDMS-TRACEABLE CREATININE METHODS. CLIN CHEM 2007;53:766-72 Performed By: #### L DH #### DANIELLE [facility] [address] [place] [address] GFR-NON AM. >60 Normal >60 [facility] Comment on above: Performed By: #### L DH #### [facility] [address] [place] [address] Glucose [Mass/Vol] 130 mg/dL High 74 - 99 [facility] Comment on above: Performed By: #### L DH #### DANIELLE CR[facility] [address] [place] [address] HCO3 (Bld) [Moles/Vol] 23 mmol/L Normal 21 - 32 [facility] Comment on above: Performed By: #### L DH #### DANIELLE [facility] [address] [place] [address] Phosphate [Mass/Vol] 4.7 mg/dL Normal 2.5 - 4.9 [facility] [place] Comment on above: Result Comment: The performance characteristics of phosphorus testing in heparinized plasma have been validated by the individual laboratory site where testing is performed. Testing on heparinized plasma is not approved by the FDA; however, such approval is not necessary. Performed By: #### L DH #### DANIEL[facility] [address] [place] [address] Potassium [Moles/Vol] 5.1 mmol/L Normal 3.5 - 5.3 [facility] Comment on above: Performed By: #### L DH #### [facility] [address] [place] [address] Sodium [Moles/Vol] 138 mmol/L Normal 136 - 145 [facility] Comment on above: Performed By: #### L DH #### [facility] [address] [place] [address] Urea nitrogen [Mass/Vol] 14 mg/dL Normal 6 - 23 [facility] Comment on above: Performed By: #### L DH #### [facility] [address] [place] [address] REQUEST-LEUKOREDUCED RED JAIDA LSon 01-22-2020 REQUEST-LEUKOREDUCED RED CELLS ORDER RECD Normal [facility] Comment on above: Performed By: #### C BCDF #### [facility] [address] [place] [address] REQUEST-LEUKOREDUCED RED CELLS ORDER RECD Normal [facility] Comment on above: Performed By: #### C BCDF #### [facility] [address] [place] [address] REQUEST-LEUKOREDUCED RED CELLS ORDER RECD Normal [facility] Comment on above: Performed By: #### C BCDF #### [facility] [address] [place] [address] ULTRASOUND GUIDANCE FOR VASC ULAR ACCESSon 01-22-2020 ULTRASOUND GUIDANCE FOR VASCULAR ACCESS Patient Name: CHRISTIANO SANTACRUZ STUDY: VASCULAR EMBO/OCCL, INCLUDE S; ADD /3RD/A-P; EXT-ART/UNI-A; EACH-ADD; EXT/UNI; VISCERAL; ULTRASOUND GUIDANCE FOR [...] of the abdomen and pelvis ACCESSION NUMBER(S): [id number]; [id number]; [id number]; [id number]; [id number]; [id number]; [id number]; [id number]; [id number]; [id number]; [id number] ORDERING CLINICIAN: FARZAD KOENIG OPERATORS: Dr. Sg [...] The needle was exchanged for a 5 Colombian transitional catheter. The inner dilator and the 0.018 wire were removed and a 0.035 wire was advanced into the abdominal aorta. The transitional catheter was exchanged for a 5 Colombian vascular sheath, which was attached to a heparinized pressure bag of normal saline. Right common femoral arteriogram was performed which demonstrates adequate arterial access for use of closure device, cephalad to the bifurcation and caudad to the inferior epigastric artery origin. A 5 Colombian Cobra C2 catheter was advanced over the wire and used to cannulate the celiac artery and subsequently the splenic artery. Digital subtraction angiography was performed which reveals focus of active arterial extravasation arising from a branch of the distal splenic artery in the surgical bed correlating with findings seen on same day CTA. A Penumbra Rexlytern microcatheter was coaxially loaded and advanced over [...] extravasation. Electronically signed by: FREDDIE HURT MD [facility] VASCULAR EMBO/OCCL, INCLUDE Son 01-22-2020 VASCULAR EMBO/OCCL, INCLUDE S Patient Name: CHRISTIANO SANTACRUZ STUDY: VASCULAR EMBO/OCCL, INCLUDE S; ADD 2ND/3RD/A-P; [...] of the abdomen and pelvis ACCESSION NUMBER(S): [id number]; [id number]; [id number]; [id number]; [id number]; [id number]; [id number]; [id number]; [id number]; [id number]; [id number] ORDERING CLINICIAN: FARZAD KOENIG OPERATORS: Dr. Sg [...] The needle was exchanged for a 5 Colombian transitional catheter. The inner dilator and the 0.018 wire were removed and a 0.035 wire was advanced into the abdominal aorta. The transitional catheter was exchanged for a 5 Colombian vascular sheath, which was attached to a heparinized pressure bag of normal saline. Right common femoral arteriogram was performed which demonstrates adequate arterial access for use of closure device, cephalad to the bifurcation and caudad to the inferior epigastric artery origin. A 5 Colombian Cobra C2 catheter was advanced over the [...] extravasation. Electronically signed by: FREDDIE HURT MD [facility] VISCERALon 01-22-2020 VISCERAL Patient Name: CHRISTIANO SANTACRUZ STUDY: VASCULAR EMBO/OCCL, INCLUDE S; ADD 2ND/3RD/A-P; [...] of the abdomen and pelvis ACCESSION NUMBER(S): [id number]; [id number]; [id number]; [id number]; [id number]; [id number]; [id number]; [id number]; [id number]; [id number]; [id number] ORDERING CLINICIAN: FARZAD KOENIG OPERATORS: Dr. Sg [...] The needle was exchanged for a 5 Colombian transitional catheter. The inner dilator and the 0.018 wire were removed and a 0.035 wire was advanced into the abdominal aorta. The transitional catheter was exchanged for a 5 Colombian vascular sheath, which was attached to a heparinized pressure bag of normal saline. Right common femoral arteriogram was performed which demonstrates adequate arterial access for use of closure device, cephalad to the bifurcation and caudad to the inferior epigastric artery origin. A 5 Colombian Cobra C2 catheter was advanced over the [...] signed by: FREDDIE HURT MD Normal [facility] ABO/RH GROUP TESTon 01-21-20 20 ABO TYPE O Normal [facility] Comment on above: Performed By: #### R ETIC #### [facility] [address] [place] [address] Performed By: #### T +S ####[id number] [place] [address] RH TYPE Positive Normal [facility] Comment on above: Performed By: #### R ETIC #### [facility] [address] [place] [address] Performed By: #### T +S ####[id number] [place] [address] Admission Risk Screen - Adul ton 01-21-2020 [...] falls risk with risk for associated injury [place] Safety InterventionsWDL *orient to call system *instruct [...] instruction; written material Cultural Considerationsnone Developmental Considerationsnone Judaism Considerationsnone Learning Assessment (Other Learner): Other learner [...] Spiritual Screen: Are there any cultural, spiritual, taoist practices/values/needs that are important for us to knowno CAGE: Is this an injured patient at a Trauma Center ([facility]/[place]): no Vaccinations: Vaccination - Influenza Vaccination Screen: Is it flu season (between and September 28)No Vaccination - Pneumonia Vaccination Screen: Patient has received a previous pneumonia vaccine:no/unknown... Immunocompetent persons with underlying chronic conditions or reside in correction care facilitiesnone of these conditions Persons with [...] Present on Admissionno Electronic Signatures: Kathy Chavez (CALOS) (Signed 21-Jan-2020 19:09) Authored: Admission Risk Screens, Vaccinations, Rigoberto, Pressure Injury Last Updated: 21-Jan-2020 19:09 by Kathy Chavez (CALOS) References: 1. Data Referenced From Patient Profile - Preop v2 21-Jan-2020 10:09 Normal [facility] CBCon 01-21-2020 Erythrocyte distribution width (RBC) [Ratio] 18.7 % High 11.5 - 14.5 [facility] Comment on above: Performed By: #### R ETIC #### [facility] [address] [place] [address] Hematocrit (Bld) [Volume fraction] 34.3 % Low 41.0 - 52.0 [facility] Comment on above: Performed By: #### R ETIC #### [facility] [address] [place] [address] Hemoglobin (Bld) [Mass/Vol] 12.6 g/dL Low 13.5 - 17.5 [facility] Comment on above: Performed By: #### R ETIC #### [facility] [address] [place] [address] MCHC (RBC) [Mass/Vol] 36.7 g/dL High 32.0 - 36.0 [facility] Comment on above: Performed By: #### R ETIC #### [facility] [address] [place] [address] MCV (RBC) [Entitic vol] 80 fL Normal 80 - 100 [facility] Comment on above: Performed By: #### R ETIC #### [facility] [address] [place] [address] Nucleated RBC/100 WBC (Bld) [Ratio] 0.1 /100 WBC Normal 0.0-0.0 [facility] Comment on above: Performed By: #### R ETIC #### [facility] [address] [place] [address] Platelets (Bld) [#/Vol] 197 10*3/uL Normal 150 - 450 [facility] Comment on above: Performed By: #### R ETIC #### [facility] [address] [place] [address] RBC (Bld) [#/Vol] 4.28 x10E12/L Low 4.50 - 5.90 [facility] Comment on above: Performed By: #### R ETIC #### [facility] [address] [place] [address] WBC (Bld) [#/Vol] 29.9 10*3/uL High 4.4 - 11.3 [facility] Comment on above: Performed By: #### R ETIC #### [facility] [id number] [place] [address] History and Physical - Surgi farhana Update [...] the note. I personally evaluated the patient [id number] Attending Provider Inpatient Certification StatementI certify this [...] Last Updated: 21-Jan-2020 12:47 by Eagle Mcmanus) [facility] [place] [address] Patient Name: HODAN SANTACRUZ : 1995 Date of Service: 01/21/2020 Patient Location: [id number] Patient Type: O Surgeon: Eagle Mcmanus MD Report Type: Operative Reports PREOPERATIVE DIAGNOSIS: Hereditary spherocytosis. POSTOPERATIVE DIAGNOSIS: Hereditary spherocytosis. OPERATION/PROCEDURE: Laparoscopic splenectomy. SURGEON: Eagle Mcmanus MD INSPECTOR GLASS OR MIRROR(S): 1. Dr. Leonela Kaiser 2. Annette Kaufman [...] TT: 01/22/2020 03:21 AM EST DICTATION NUMBER: [id number] SPHERIS JOB NUMBER: [id number] CC: ADDIE Cobos MD Electronic Signatures: Eagle Mcmanus) (Signed on 22-Jan-2020 23:07) Authored Unsigned, Draft (SYS GENERATED) (Entered on 22-Jan-2020 03:21) Entered Last Updated: 22-Jan-2020 23:07 by Eagle Mcmanus) [facility] Patient Profile - Preop v2on 01-21-2020 Patient Profile - Preop v2 Profile: Initial Info: How to be AddressedAlex Spoken Language PreferredEnglish Are you currently using the Personal Electronic Health Record or DosYoguresyeNSS Labs Stated Reason for Admissionsplenectomy Primary Contact Name and NumberCindy - addy - [phone] Patient Belongingslocker Medications Brought to Hospitalno General Health: Weight in kg74.6 kilogram(s) Weight in jin067.4 pound(s) Weight Methodactual (measured) Scale Typestanding Height in feet5 feet Height in mapokv89 inch(es) Height in cm177.8 centimeter(s) Height Methodstated [...] instruction; written material Cultural Considerationsnone Developmental Considerationsnone Judaism Considerationsnone Other learner availableno Falls RiskPatient location auto qualifies him/her for HIGH RISK. Are there any cultural, spiritual, taoist practices/values/needs that are important for us to knowno Pain Scalenumerical 0-10 Pain Scale Educationteaching provided Current Pain Level0 = None Acceptable Pain Level4 = Moderate Chronic Painno Information Review: Allergies, Home Meds and Significant Events have been Reviewed and Verified with Patient/Familyyes Allergy, Intolerance, Adverse Event: Allergies: morphine: Drug, Facial Swelling, Active Electronic Signatures: Claudia Tapia) (Signed 21-Jan-2020 10:24) Authored: Profile, Additional Information Last Updated: 21-Jan-2020 10:24 by Claudia Tapia) [facility] Preop Checkliston 01-21-2020 Preop Checklist Preop Checklist: Preop Checklist: Arrival [id number] Arrival Time10:05 Procedure Typesplenectomy Temperature C37.6 degrees C Temperature F99.6 degrees F Heart Rate67 beats per minute Respiratory Rate16 breath per minute Blood Pressure Pgniimnl519 mm/Hg Blood Pressure Zghfvxufi34 mm/Hg NPO [id number] 00:01 ID Band Onyes Allergy Bandyes Consent [...] Communication: Language / CommunicationEnglish Electronic Signatures: Claudia Tapia) (Signed 21-Jan-2020 10:28) Authored: Preop Checklist Last Updated: 21-Jan-2020 10:28 by Claudia Tapia (RN) Normal [facility] Surgical Pathology Depar tmenton 01-21-2020 [facility] Surgical Pathology Department Name CHRISTIANO SANTACRUZ Pathologist: ARTURO NORRIS MD Date of Procedure: 01/21/2020 Date Received: 01/21/2020 Date Reported 01/27/2020 Submitting Physician: EAGLE MCMANUS M.D. Location: [facility] External # FINAL DIAGNOSIS A. SPLEEN, [...] and soft. Malpighian corpuscles are not prominent. Medical Collector sections are submitted in RPMI for flow hold. Medical Collector sections are submitted in 3 cassettes. IAD iad/01/22/2020 Normal [facility] Comment on above: Performed By: #### U HCS ####[facility] Surgical Pathology [id number] [place] [address] CORONAVIRUS 2019, SCREEN ASY MPTOMATICon 01-20-2020 CORONAVIRUS 2019,PCR NOT DETECTED Normal Not Detected [facility] Comment on above: Result Comment: . This [...] this test method. Fact sheet for providers: https://www.fda.gov/media/698739/download Fact sheet for patients: https://www.fda.gov/media/204708/download This test has received FDA Emergency Use Authorization [EUA] and has been verified by [facility] ([facility]). This test is only authorized for the duration of time that circumstances exist to justify the authorization of the emergency use of in vitro diagnostic tests for the detection of SARS-CoV-2 virus and/or diagnosis of COVID-19 infection under section 564(b)(1) of the Act, 21 U.S.C. 360bbb-3(b)(1), unless the authorization is terminated or revoked sooner. [facility] is certified under CLIA-88 as qualified to perform high complexity testing. Testing is performed in the [facility] laboratories located at [id number] [place] [address]. Performed By: #### C OVSC ####[id number] [facility] [address] CORONAVIRUS 2019, SCREEN ASY MPTOMATICon 01-19-2020 Lab Specimen Source Nasal, Nasopharyngeal Normal [facility] Comment on above: Performed By: #### C OVSC ####[id number] [facility] [place] [address] EOSIN 5' MALEIMIDEon 020 Eosinophils (Bld) [#/Vol] Positive Normal [facility] Comment on above: Performed By: #### E O5MA ####[id number] [facility] [place] [address] PATIENT MEAN FLUORESCENCE 129 MFI Low 155 - 175 [facility] Comment on above: Performed By: #### E O5MA ####[id number] [facility] [place] [address] REVIEWED BY VINNIE Normal [facility] Comment on above: Result Comment: Eval uation [...] characteristics determined by the Department of Pathology, [facility], and has not been cleared or approved by the U.S. Food and Drug Administration. The laboratory is regulated under CLIA as qualified to perform high complexity testing. This test is used for clinical purposes. It shouldn't be regarded as investigational or for research. Performed By: #### E O5MA ####[id number] [facility] [place] [address] BILIRUBIN,DIRECTon 0 Bilirubin.direct [Mass/Vol] 0.5 mg/dL High 0.0 - 0.3 [facility] Comment on above: Performed By: #### D BILI #### [facility] [address] [place] [address] CBC AND DIFFERENTIALon 12-30 % AUTOMATED IMMATURE GRAN 0.8 % Normal 0.0 - 0.9 [facility] Comment on above: Result Comment: Sisi ture Granulocyte Count (IG) includes promyelocytes, myelocytes and metamyelocytes but does not include bands. Percent differential counts (%) should be interpreted in the context of the absolute cell counts (cells/L). Performed By: #### C BCDF #### [facility] [address] [place] [address] Basophils (Bld) [#/Vol] 0.05 10*3/uL Normal 0.00 - 0.10 [facility] Comment on above: Performed By: #### C BCDF #### [facility] [address] [place] [address] Basophils/100 WBC (Bld) 0.6 % Normal 0.0 - 2.0 [facility] Comment on above: Performed By: #### C BCDF #### [facility] [address] [place] [address] Eosinophils (Bld) [#/Vol] 0.13 10*3/uL Normal 0.00 - 0.70 [facility] Comment on above: Performed By: #### C BCDF #### [facility] [address] [place] [address] Eosinophils/100 WBC (Bld) 1.6 % Normal 0.0 - 6.0 [facility] Comment on above: Performed By: #### C BCDF #### [facility] [address] [place] [address] Erythrocyte distribution width (RBC) [Ratio] 19.1 % High 11.5 - 14.5 [facility] Comment on above: Performed By: #### C BCDF #### [facility] [address] [place] [address] Hematocrit (Bld) [Volume fraction] 35.9 % Low 41.0 - 52.0 [facility] Comment on above: Performed By: #### C BCDF #### [facility] [address] [place] [address] Hemoglobin (Bld) [Mass/Vol] 12.6 g/dL Low 13.5 - 17.5 [facility] Comment on above: Performed By: #### C BCDF #### [facility] [address] [place] [address] Lymphocytes (Bld) [#/Vol] 3.17 10*3/uL Normal 1.20 - 4.80 [facility] Comment on above: Performed By: #### C BCDF #### [facility] [address] [place] [address] Lymphocytes/100 WBC (Bld) 40.1 % Normal 13.0 - 44.0 [facility] Comment on above: Performed By: #### C BCDF #### [facility] [address] [place] [address] MCHC (RBC) [Mass/Vol] 35.1 g/dL Normal 32.0 - 36.0 [facility] Comment on above: Performed By: #### C BCDF #### [facility] [address] [place] [address] MCV (RBC) [Entitic vol] 82 fL Normal 80 - 100 [facility] Comment on above: Performed By: #### C BCDF #### [facility] [address] [place] [address] Monocytes (Bld) [#/Vol] 0.39 10*3/uL Normal 0.10 - 1.00 [facility] Comment on above: Performed By: #### C BCDF #### [facility] [address] [place] [address] Monocytes/100 WBC (Bld) 4.9 % Normal 2.0 - 10.0 [facility] Comment on above: Performed By: #### C BCDF #### [facility] [address] [place] [address] Neutrophils (Bld) [#/Vol] 4.10 10*3/uL Normal 1.20 - 7.70 [facility] Comment on above: Performed By: #### C BCDF #### [facility] [address] [place] [address] Neutrophils/100 WBC (Bld) 52.0 % Normal 40.0 - 80.0 [facility] Comment on above: Performed By: #### C BCDF #### [facility] [address] [place] [address] Nucleated RBC/100 WBC (Bld) [Ratio] 0.3 /100 WBC Normal 0.0-0.0 [facility] Comment on above: Performed By: #### C BCDF #### [facility] [address] [place] [address] Platelets (Bld) [#/Vol] 166 10*3/uL Normal 150 - 450 [facility] Comment on above: Performed By: #### C BCDF #### [facility] [address] [place] [address] RBC (Bld) [#/Vol] 4.37 x10E12/L Low 4.50 - 5.90 [facility] Comment on above: Performed By: #### C BCDF #### [facility] [address] [place] [address] WBC (Bld) [#/Vol] 7.9 10*3/uL Normal 4.4 - 11.3 [facility] Comment on above: Performed By: #### C BCDF #### [facility] [address] [place] [address] COMPREHENSIVE PANELon 2019 Albumin [Mass/Vol] 5.5 g/dL High 3.4 - 5.0 [facility] Comment on above: Performed By: #### C MP #### [facility] [address] [facility] [place] [address] ALP [Catalytic activity/Vol] 50 U/L Normal 33 - 120 [facility] Comment on above: Performed By: #### C MP #### [facility] [address] [place] [address] ALT [Catalytic activity/Vol] 19 U/L Normal 10 - 52 [facility] Comment on above: Result Comment: Haily ents treated with Sulfasalazine may generate falsely decreased results for ALT. Performed By: #### C MP #### [facility] [address] [facility] [place] [address] Anion gap [Moles/Vol] 11 mmol/L Normal 10 - 20 [facility] Comment on above: Performed By: #### C MP #### [facility] [address] [place] [address] AST [Catalytic activity/Vol] 17 U/L Normal 9 - 39 [facility] Comment on above: Performed By: #### C MP #### [facility] [address] [place] [address] Bilirubin [Mass/Vol] 2.5 mg/dL High 0.0 - 1.2 [facility] [place] Comment on above: Performed By: #### C MP #### [facility] [address] [place] [address] Calcium [Mass/Vol] 10.2 mg/dL Normal 8.6 - 10.3 [facility] Comment on above: Performed By: #### C MP #### [facility] [address] [place] [address] Chloride [Moles/Vol] 105 mmol/L Normal 98 - 107 [facility] [place] Comment on above: Performed By: #### C MP #### [facility] [address] [place] [address] Creatinine [Mass/Vol] 0.99 mg/dL Normal 0.50 - 1.30 [facility] Comment on above: Performed By: #### C MP #### [facility] [address] [place] [address] GFR- AM. >60 Normal >60 [facility] Comment on above: Result Comment: CALC ULATIONS OF ESTIMATED GFR ARE PERFORMED USING THE MDRD STUDY EQUATION FOR THE IDMS-TRACEABLE CREATININE METHODS. CLIN CHEM 2007;53:766-72 Performed By: #### C MP #### [facility] [address] [place] [address] GFR-NON AM. >60 Normal >60 [facility] Comment on above: Performed By: #### C MP #### [facility] [address] [place] [address] Glucose [Mass/Vol] 97 mg/dL Normal 74 - 99 [facility] Comment on above: Performed By: #### C MP #### [facility] [address] [place] [address] HCO3 (Bld) [Moles/Vol] 29 mmol/L Normal 21 - 32 [facility] Comment on above: Performed By: #### C MP #### [facility] [address] [place] [address] Potassium [Moles/Vol] 4.2 mmol/L Normal 3.5 - 5.3 [facility] Comment on above: Performed By: #### C MP #### [facility] [address] [place] [address] Protein [Mass/Vol] 7.4 g/dL Normal 6.4 - 8.2 [facility] Comment on above: Performed By: #### C MP #### [facility] [address] [place] [address] Sodium [Moles/Vol] 141 mmol/L Normal 136 - 145 [facility] Comment on above: Performed By: #### C MP #### [facility] [address] [place] [address] Urea nitrogen [Mass/Vol] 11 mg/dL Normal 6 - 23 [facility] Comment on above: Performed By: #### C MP #### [facility] [address] [place] [address] Clinic Note - Heme Onc-Benig n Heme [...] [Drawn 31-Dec-2019 11:21:00], Sedimentation Rate, Erythrocyte [Drawn 31-Dec-2019 11:21:00], Bilirubin, Serum Direct - Conjugated [Drawn 31-Dec-2019 11:21:00], Haptoglobin, Serum [Drawn 31-Dec-2019 11:21:00]. Assessment and Plan: Assessment and Plan: Assessment: This patient has a normochromic, normocytic mild anemia with 8.7% retic, elevated total and indirect (2.0) bilirubin, low haptoglobin (<30) with a normal LDH. His spleen is palpable. Could be HS - I sent for definitive flow cytometry studies today. At [facility] Labs, an abnormal band 3 for HS [...] Last Updated: 31-Dec-2019 16:52 by New Cobos) [facility] Clinic Note - Intakeon 12-30 Clinic Note [...] air Pain Screening: Patient States Painno (0) Aircraft Instrument Engineer for intimate exam offered to patient: Patient [...] 10:17) Authored: Patient Visit Information, Vital Signs, Aircraft Instrument Engineer, Allergies, Outpatient Medication Profile, Adult Admission Risk Screen Last Updated: 31-Dec-2019 10:17 by Stefania Stout) Normal [facility] EBV PANELon 12-31-2019 EBV EA-D IGG ANTIBODY Positive Abnormal NEGATIVE [facility] Comment on above: Performed By: #### E BVP1 ####[id number] [place] [address] EBV INTERPRETATION SEE BELOW Normal [facility] Comment on above: Result Comment: . EB V INTERPRETATION CHART . VCA-IGG VCA-IGM NA-IGG EA-IGG . PRIMARY ACUTE +/- +/- - +/- LATE ACUTE + +/- +/- +/- RECOVERING + - - + PREVIOUS INFECTION + - +/- - Performed By: #### E BVP1 ####[id number] [place] [address] EBV NA-1 IGG ANTIBODY Negative Normal NEGATIVE [facility] Comment on above: Performed By: #### E BVP1 ####[id number] [place] [address] VCA IGG ANTIBODY Positive Abnormal NEGATIVE [facility] Comment on above: Performed By: #### E BVP1 ####[id number] [place] [address] VCA IGM ANTIBODY Positive Abnormal NEGATIVE [facility] Comment on above: Performed By: #### E BVP1 ####[id number] [place] [address] EOSIN 5' MALEIMIDEon 020 INTERPRETATION SEE BELOW Normal [facility] Comment on above: Performed By: #### E O5MA ####[id number] [place] [address] FERRITINon 12-31-2019 Ferritin [Mass/Vol] 344 ug/L High 20 - 300 [facility] Comment on above: Performed By: #### F ERRI ####[id number] [place] [address] FLOW CYTOMETRY TESTon 2019 FLOW TEST ORDERED EOSIN 5' MALEIMIDE Normal [facility] Comment on above: Performed By: #### F CTST ####[id number] [place] [address] SOURCE WHOLE BLD-EDTA Normal [facility] Comment on above: Performed By: #### F CTST ####[id number] [place] [address] HAPTOGLOBINon 12-31-2019 HAPTOGLOBIN <30 Normal 30 - 200 [facility] Comment on above: Performed By: #### H APTO #### [facility] [address] [place] [address] LDHon 12-31-2019 LDH 165 U/L Normal 84 - 246 [facility] Comment on above: Performed By: #### L DH #### [facility] [address] [place] [address] RETICULOCYTESon 12-31-2019 IMMATURE RETIC FRACTION 10.8 % Normal 0.0 - 16.0 [facility] Comment on above: Performed By: #### R ETIC #### [facility] [address] [place] [address] RETIC # 0.379 x10E12/L High 0.022 - 0.118 [facility] Comment on above: Performed By: #### R ETIC #### [facility] [address] [place] [address] RETIC % 8.7 % High 0.5 - 2.0 [facility] Comment on above: Performed By: #### R ETIC #### [facility] [address] [place] [address] RETIC-HB 35 pg Normal 28 - 38 [facility] Comment on above: Performed By: #### R ETIC #### [facility] [address] [place] [address] SEDIMENTATION RATE, ERYTHROC YTEon 12-31-2019 SEDIMENTATION RATE, ERYTHROCYTE <1 Normal 0 - 15 [facility] Comment on above: Performed By: #### E SRWS #### [facility] [address] [place] [address] URIC ACIDon 12-31-2019 Urate [Mass/Vol] 5.8 mg/dL Normal 4.0 - 7.5 [facility] Comment on above: Result Comment: Dacia puncture immediately after or during the administration of Metamizole may lead to falsely low results. Testing should be performed immediately prior to Metamizole dosing. Performed By: #### U MELISA #### [facility] [address] [place] [address] Oncology Nurse Navigator-fireda dickerson diagnosison 12-30-2019 Oncology Nurse Navigator-initial diagnosis Summary/Preview: [...] availability Acuity: [employer] 12/30/19 Hodan Santacruz is a 24 year old male referred to benign hematology from Dr. Tung Mulligan for hereditary spherocytosis and splenomegaly. His mother has a history of splenectomy and blood clots. Appointment information provided with date, time, and location. Contact information provided for questions and concerns. Heiid Velasco RN Electronic Signatures: Heidi Velasco (STAFF N) (Signed 30-Dec-2019 14:56) Authored: Care Navigation Last Updated: 30-Dec-2019 14:56 by Heidi Velasco (STAFF N) Normal [facility] Vital Signs Date Time Vital Sign Value Performing Clinician Facility 02-11-2024 09:13-0400 Body height 177.8 cm [facility] 02-11-2024 09:13-0400 Body mass index (BMI) [Ratio] 25.9 kg/m2 [facility] 02-11-2024 09:13-0400 Body temperature 97.9 [degF] [facility] 02-11-2024 09:13-0400 Body weight 82.1 kg [facility] 02-11-2024 09:13-0400 Diastolic blood pressure 80 mm[Hg] [facility] 02-11-2024 09:13-0400 Heart rate 66 /min [facility] 02-11-2024 09:13-0400 Respiratory rate 18 /min [facility] 02-11-2024 09:13-0400 SaO2% (BldA) [Mass fraction] 98 % [facility] 02-11-2024 09:13-0400 Systolic blood pressure 125 mm[Hg] [facility] 12-11-2023 14:51-0400 Body height 177.8 cm [facility] 12-11-2023 14:51-0400 Body mass index (BMI) [Ratio] 26.1 kg/m2 [facility] 12-11-2023 14:51-0400 Body temperature 98.7 [degF] [facility] 12-11-2023 14:51-0400 Body weight 82.66 kg [facility] 12-11-2023 14:51-0400 Diastolic blood pressure 93 mm[Hg] [facility] 12-11-2023 14:51-0400 Heart rate 91 /min [facility] 12-11-2023 14:51-0400 Respiratory rate 18 /min [facility] 12-11-2023 14:51-0400 SaO2% (BldA) [Mass fraction] 97 % [facility] 12-11-2023 14:51-0400 Systolic blood pressure 146 mm[Hg] [facility] 05-04-2023 12:15-0500 Body height 177.8 cm Zoila Webb Other [facility] [employer] Other 05-04-2023 12:15-0500 Body mass index (BMI) [Ratio] 23.53 kg/m2 Zoila Webb Other [employer] [facility] [employer] Other 05-04-2023 12:15-0500 Body temperature 98.9 [degF] Zoila Webb Other [facility] Other 05-04-2023 12:15-0500 Body weight 74.39 kg Zoila Webb Other [facility] Other 05-04-2023 12:15-0500 Diastolic blood pressure 76 mm[Hg] Zoila Webb Other [facility] Other 05-04-2023 12:15-0500 Respiratory rate 18 /min Zoila Webb Other [facility] Other 05-04-2023 12:15-0500 SaO2% (BldA) [Mass fraction] 80 % Zoila Webb Other [facility] Other 05-04-2023 12:15-0500 Systolic blood pressure 127 mm[Hg] Zoila Webb Other [facility] Other 03-28-2023 10:43-0400 Blood Pressure Location MABLE [facility] 03-28-2023 10:43-0400 Body temperature 98.6 [degF] [facility] 03-28-2023 10:43-0400 Diastolic blood pressure 78 mm[Hg] [facility] 03-28-2023 10:43-0400 Heart rate 77 /min [facility] 03-28-2023 10:43-0400 SaO2% (BldA) [Mass fraction] 98 % [facility] 03-28-2023 10:43-0400 Systolic blood pressure 121 mm[Hg] [facility] 07-04-2022 15:31-0500 Diastolic blood pressure 79 mm[Hg] Leah Myrick [facility] 07-04-2022 15:31-0500 Heart rate 95 /min Leah Myrick [facility] 07-04-2022 15:31-0500 Mean blood pressure 96 mm[Hg] Leah Myrick [facility] 07-04-2022 15:31-0500 Systolic blood pressure 130 mm[Hg] Leahyoan Myrick [facility] 06-13-2022 14:57-0500 Heart rate 74 /min Sen Jenifer [facility] 06-13-2022 14:57-0500 SaO2% (BldA) [Mass fraction] 99 % Sen Jenifer [facility] 06-13-2022 14:57-0500 Diastolic blood pressure 79 mm[Hg] Sen Jenifer [facility] 06-13-2022 14:57-0500 Mean blood pressure 93 mm[Hg] Sen Jenifer [facility] 06-13-2022 14:57-0500 Systolic blood pressure 122 mm[Hg] Sen Jenifer [facility] 06-13-2022 14:57-0500 Respiratory rate 14 /min Sen Jenifer [facility] 06-13-2022 14:50-0500 Diastolic blood pressure 88 mm[Hg] Sen Jenifer [facility] 06-13-2022 14:50-0500 Heart rate 71 /min Sen Jenifer [facility] 06-13-2022 14:50-0500 Respiratory rate 14 /min Sen Jenifer [facility] 06-13-2022 14:50-0500 SaO2% (BldA) [Mass fraction] 98 % Sen Jenifer [facility] 06-13-2022 14:50-0500 Systolic blood pressure 147 mm[Hg] Sen Jenifer [facility] 06-13-2022 14:35-0500 Heart rate 81 /min Sen Jenifer [facility] 06-13-2022 14:35-0500 SaO2% (BldA) [Mass fraction] 98 % Sen Jenifer [facility] 06-13-2022 14:35-0500 Respiratory rate 16 /min Sen Jenifer [facility] 06-13-2022 14:33-0500 Diastolic blood pressure 79 mm[Hg] Sen Jenifer [facility] 06-13-2022 14:33-0500 Mean blood pressure 94 mm[Hg] Sen Jenifer [facility] 06-13-2022 14:33-0500 Systolic blood pressure 123 mm[Hg] Sen Jenifer [facility] 06-13-2022 14:33-0500 Body temperature 97.7 [degF] Sen Jenifer [facility] 05-23-2022 14:51-0500 Diastolic blood pressure 78 mm[Hg] Sen Jenifer [facility] 05-23-2022 14:51-0500 Heart rate 96 /min Sen Jenifer [facility] 05-23-2022 14:51-0500 Mean blood pressure 96 mm[Hg] Sen Jenifer [facility] 05-23-2022 14:51-0500 Respiratory rate 16 /min Sen Jenifer [facility] 05-23-2022 14:51-0500 Systolic blood pressure 131 mm[Hg] Sen Jenifer [facility] 05-19-2022 10:04-0500 Diastolic blood pressure 81 mm[Hg] Karan العراقي [facility] 05-19-2022 10:04-0500 Heart rate 91 /min Karan العراقي [facility] 05-19-2022 10:04-0500 Respiratory rate 18 /min Karan العراقي [facility] 05-19-2022 10:04-0500 SaO2% (BldA) [Mass fraction] 97 % Karan العراقي [facility] 05-19-2022 10:04-0500 Systolic blood pressure 132 mm[Hg] Karan العراقي [facility] 05-14-2022 22:45-0500 Diastolic blood pressure 78 mm[Hg] Jose Brandon [facility] 05-14-2022 22:45-0500 Heart rate 79 /min Jose Brandon [facility] 05-14-2022 22:45-0500 Respiratory rate 18 /min Jose Brandon [facility] 05-14-2022 22:45-0500 SaO2% (BldA) [Mass fraction] 98 % Jose Brandon [facility] 05-14-2022 22:45-0500 Systolic blood pressure 126 mm[Hg] Jose Brandon [facility] 05-14-2022 19:34-0500 Body temperature 99.14 [degF] Jose Brandon [facility] 05-14-2022 19:34-0500 Diastolic blood pressure 84 mm[Hg] Jose Brandon [facility] 05-14-2022 19:34-0500 Heart rate 84 /min Jose Brandon [facility] 05-14-2022 19:34-0500 Respiratory rate 18 /min Jose Brandon [facility] 05-14-2022 19:34-0500 SaO2% (BldA) [Mass fraction] 97 % Jose Brandon [facility] 05-14-2022 19:34-0500 Systolic blood pressure 130 mm[Hg] Jose Brandon [facility] 05-12-2022 11:41-0500 Blood Pressure Location Angela Cogar [facility] 05-12-2022 11:41-0500 Body temperature 98.24 [degF] Angela Cogar [facility] 05-12-2022 11:41-0500 Diastolic blood pressure 74 mm[Hg] Angela Cogar [facility] 05-12-2022 11:41-0500 Heart rate 99 /min Angela Cogar [facility] 05-12-2022 11:41-0500 SaO2% (BldA) [Mass fraction] 97 % Angela Cogar [facility] 05-12-2022 11:41-0500 Systolic blood pressure 110 mm[Hg] Angela Cogar [facility] 05-08-2022 14:16-0500 Diastolic blood pressure 77 mm[Hg] Sen Jenifer [facility] 05-08-2022 14:16-0500 Heart rate 75 /min Sen Jenifer [facility] 05-08-2022 14:16-0500 Mean blood pressure 93 mm[Hg] Sen Jenifer [facility] 05-08-2022 14:16-0500 Respiratory rate 12 /min Sen Hernandezner [facility] 05-08-2022 14:16-0500 Systolic blood pressure 126 mm[Hg] Sen Jenifer [facility] 03-28-2022 14:12-0400 Blood Pressure Location Lelia Klonk [facility] 03-28-2022 14:12-0400 Body temperature 98.06 [degF] Lelia Klonk [facility] 03-28-2022 14:12-0400 Diastolic blood pressure 72 mm[Hg] Lelia Klonk [facility] 03-28-2022 14:12-0400 Heart rate 73 /min Lelia Klonk [facility] 03-28-2022 14:12-0400 SaO2% (BldA) [Mass fraction] 97 % Lelia Klonk [facility] 03-28-2022 14:12-0400 Systolic blood pressure 124 mm[Hg] Lelia Klonk [facility] 02-03-2022 10:53-0400 Blood Pressure Location Lelia Klonk [facility] 02-03-2022 10:53-0400 Diastolic blood pressure 78 mm[Hg] Lelia Klonk [facility] 02-03-2022 10:53-0400 Heart rate 86 /min Lelia Klonk [facility] 02-03-2022 10:53-0400 SaO2% (BldA) [Mass fraction] 98 % Lelia Klonk [facility] 02-03-2022 10:53-0400 Systolic blood pressure 120 mm[Hg] Lelia Klonk [facility] 12-23-2021 16:44-0400 Body temperature 97.34 [degF] Lelia Klonk [facility] 12-23-2021 16:44-0400 Diastolic blood pressure 70 mm[Hg] Lelia Klonk [facility] 12-23-2021 16:44-0400 Heart rate 80 /min Lelia Klonk [facility] 12-23-2021 16:44-0400 SaO2% (BldA) [Mass fraction] 96 % Lelia Klonk [facility] 12-23-2021 16:44-0400 Systolic blood pressure 110 mm[Hg] Lelia Klonk [facility] 11-04-2021 10:11-0400 Body temperature 97.7 [degF] Cecil Novak [facility] 11-04-2021 10:11-0400 Diastolic blood pressure 88 mm[Hg] Cecil Novak [facility] 11-04-2021 10:11-0400 Heart rate 64 /min Cecil Novak [facility] 11-04-2021 10:11-0400 Respiratory rate 16 /min Cecil Novak [facility] 11-04-2021 10:11-0400 SaO2% (BldA) [Mass fraction] 98 % Cecil Novak [facility] 11-04-2021 10:11-0400 Systolic blood pressure 150 mm[Hg] Cecil Novak [facility] 01-22-2020 14:51-0400 Body temperature 37.0 degrees C [facility] Comment on above: Result Comment: NOTE: PATIENT RESULTS AR E NOT CORRECTED FOR TEMPERATURE. Performed By: #### L #### [facility] [address] [place] [address] Encounters Encounter Date Encounter Type Care Provider Facility Start: 02-11-2024 End: 02-11-2024 ambulatory [facility] Work Phone: Start: 02-11-2024 End: 02-11-2024 Patient encounter procedure [facility] Work Phone: Start: 12-11-2023 End: 12-11-2023 ambulatory [facility] Work Phone: Start: 12-11-2023 End: 12-11-2023 Patient encounter procedure [facility] Work Phone: Start: 07-19-2023 End: 07-20-2023 Transcribe Orders Rosario Trevizo Work Phone: [facility] Comment on above: Arthritis Start: 07-16-2023 End: 07-17-2023 Transcribe Orders Rosario Crawford Po Work Phone: [facility] Comment on above: Dyspnea, unspecified type Start: 05-04-2023 End: 05-04-2023 ambulatory Zoila Webb Other [facility] Other Start: 05-04-2023 Office outpatient ne w 30 minutes Zoila Jon [facility] Start: 03-28-2023 End: 03-29-2023 ambulatory MABLE MURILLOTIZ [place] Start: 03-28-2023 End: 03-29-2023 ambulatory MABLE STEPHENSON Facility: [facility] Start: 03-28-2023 End: 03-28-2023 Patient encounter procedure [facility] Start: 08-04-2022 End: 08-05-2022 ambulatory PA-C Leah Myrick [place] Start: 07-28-2022 End: 07-29-2022 ambulatory Leah Myrick [place] Start: 07-04-2022 End: 07-05-2022 ambulatory PA-C Leah Myrick [place] Start: 07-04-2022 End: 07-04-2022 Pain Management Leah Myrick [facility] Start: 06-13-2022 End: 06-14-2022 ambulatory MD Sen Burgess [place] Start: 06-13-2022 End: 06-13-2022 Pain Management Sen Burgess [facility] Start: 06-06-2022 End: 06-06-2022 Emergency department patient visit Leah Grover [place] Start: 05-23-2022 End: 05-24-2022 ambulatory LELIA FRANKLIN [place] Start: 05-23-2022 ambulatory LELIA FRANKLIN Facility :[facility] Start: 05-23-2022 End: 05-23-2022 Pain Management Sen Burgess [facility] Start: 05-19-2022 End: 05-20-2022 ambulatory Sen Burgess [place] Start: 05-19-2022 End: 05-19-2022 Patient encounter procedure Sen Burgess [facility] Start: 05-19-2022 End: 05-19-2022 Emergency department patient visit Karan العراقي [place] Start: 05-19-2022 End: 05-19-2022 Emergency department patient visit Karan العراقي [facility] Start: 05-14-2022 End: 05-15-2022 Emergency department patient visit Jose Taylor [place] Start: 05-14-2022 End: 05-14-2022 Emergency department patient visit Jose Taylor [facility] Start: 05-12-2022 End: 05-13-2022 ambulatory Angela Barksdale Facility:[facility] Start: 05-12-2022 End: 05-12-2022 Patient encounter procedure Angela Barksdale [facility] Start: 05-08-2022 End: 05-09-2022 ambulatory LELIA FRANKLIN [place] Start: 05-08-2022 End: 05-08-2022 Pain Management Sen Burgess [facility] Start: 03-28-2022 End: 03-28-2022 Patient encounter procedure Lelia Franklin [facility] Start: 03-07-2022 End: 03-07-2022 Patient encounter procedure Yael Wharton [facility] Start: 02-03-2022 End: 02-03-2022 Patient encounter procedure Lelia Franklin [facility] Start: 12-23-2021 End: 12-23-2021 Patient encounter procedure Lelia Franklin [facility] Start: 11-04-2021 End: 11-04-2021 Emergency department patient visit Cecil Novak [facility] Procedures Date Procedure Procedure Detail Performing Clinician [...] on above: Performed By: #### T +S ####[id number] [place] [address] Cholecystectomy 1 Cecil sanford Comment on above: [...] Vaccine (2 of 2 - 2-dose series) [facility] Start: 2013 Tetanus vaccination Tetanus (T d or Tdap) Booster [facility] Start: 2012 Hepatitis C screening Hepatitis C An tibody [facility] Start: 2012 Tetanus + diphtheria + acellular pertussis vaccine (product) Tdap [facility] Start: 2009 HIV screening HIV Test [facility] Start: 03-09-1995 COVID-19 Vaccine (#1) COVID-19 Vacci ne (#1) [facility] Start: 1994 Hepatitis B vaccination Hepati tis B (HBV) Vaccine (1 of 3 - 3-dose series) [facility] Immunizations Immunization Date Immunization Notes Care Provider Fa [facility] 04-09-2023 influenza, injectabl e, quadrivalent, preservative free [address] 11-04-2021 tetanus toxoid, redu carly diphtheria toxoid, and acellular pertussis vaccine, adsorbed; Translations: [Boostrix (Tdap)] Cecil Novak [facility] 05-28-2018 influenza, injectabl e, quadrivalent, contains preservative [address] 05-28-2018 influenza virus vaccine, unspecified formulation [address] 05-01-2018 influenza, injectabl e, quadrivalent, contains preservative [address] 03-12-2017 Influenza, injectabl e, Madin Gabbie Canine Kidney, quadrivalent with preservative [address] 10-09-2016 anthrax vaccine [address] 10-05-2016 typhoid vaccine, parenteral, other than acetone-killed, dried [address] 10-05-2016 vaccinia (smallpox) vaccine [address] 09-08-2016 anthrax vaccine [address] 09-08-2016 citizen of [place] encephaliti s vaccine for intramuscular administration [address] 08-11-2016 citizen of [place] encephaliti s vaccine for intramuscular administration [address] 04-18-2016 influenza, injectabl e, quadrivalent, contains preservative [address] 05-19-2015 influenza, seasonal, injectable, preservative free [address] 04-13-2014 influenza, seasonal, injectable [address] 01-21-2014 hepatitis A and hepatitis B vaccine [address] 07-04-2013 hepatitis A and hepatitis B vaccine [address] 07-04-2013 poliovirus vaccine, inactivated [address] 07-04-2013 yellow fever vaccine [address] 05-29-2013 adenovirus, type 4 a nd type 7, live, oral [address] 05-29-2013 hepatitis A and hepatitis B vaccine [address] 05-29-2013 influenza virus vaccine, live, attenuated, for intranasal use [address] 05-29-2013 meningococcal polysaccharide (groups A, C, Y and W-135) diphtheria toxoid conjugate vaccine (MCV4P) [address] 05-29-2013 tetanus toxoid, redu carly diphtheria toxoid, and acellular pertussis vaccine, adsorbed [address] 05-29-2013 tuberculin skin test ; purified protein derivative solution, intradermal [address] 02-06-2006 Hep A, unspecified formulation [facility] 02-06-2006 tetanus toxoid, redu carly diphtheria toxoid, and acellular pertussis vaccine, adsorbed [facility] 06-28-2005 influenza virus vaccine, unspecified formulation [facility] Payers Date Payer Category Payer Unknown [id number] 1994 Unknown [id number] 1994 Unknown [id number] 1994 Unknown [id number] 1994 Unknown [id number] 1994 Unknown [id number] 1994 Unknown [id number] 1994 Unknown [id number] 1994 Unknown [id number] 1994 Unknown [id number] [id number] 1994 Unknown [id number] [id number] 1994 Unknown [id number] [id number] 1994 Unknown [id number] [id number] 1994 Unknown [id number] [id number] 1994 Unknown [id number] Private Health Insurance [facility] [id number] Unknown [facility] [id number] Social History Date Type Detail Facility Tobacco [facility] Comment on above: pt denies Sex Assigned At Male [facility] Start: 12-23-2021 End: 02-11-2024 Tobacco smoking status Never smoked tobacco (finding) [facility] Comment on above: pt denies pt denies Tobacco smoking status Never [facility] Comment on above: pt denies pt denies Tobacco smoking status NHIS Tobacco smoking consumption unknown [facility] Start: 1994 Sex Assigned At Not on file [facility] Start: [facility] Sex Assigned At Male F [facility] Functional Status Date Assessment Result Facility 03-28-2023 Functional Status N/A [facility] 07-04-2022 Functional Status N/A [facility] 06-13-2022 Functional Status N/A [facility] 05-23-2022 Functional Status N/A [facility] 05-19-2022 Functional Status Yes [facility] 05-14-2022 Functional Status Yes [facility] 05-12-2022 Functional Status N/A [facility] 05-08-2022 Functional Status N/A [facility] 03-28-2022 Functional Status N/A [facility] 02-03-2022 N/A [facility] Clinical Notes 11-04-2021 to 05-04-2023 Note [...] treatment plan. Patient left in stable condition [facility] Other 10-11-2023 Hospital Discharge instructions Patient Education 03/28/2023 11:46:08 Viral Respiratory Infection, Tgsy-Dr-Jczl Viral Respiratory Infection A viral respiratory infection [...] at home: Managing pain and congestion Take benk-vip-incgmnt and prescription medicines only as told by [...] cannot use soap and water, use hand organizational effectiveness consultant. ?Cover your mouth when you cough. Cover [...] provider. Document Revised: 09/08/2021 Document Reviewed: 09/08/2021 [employer] Patient Education 2022 [employer]. Follow Up Care 03/28/2023 10:03:13 With:RIGOBERTO CHURCH, MAXWELL AHUJA Address: [address] [place] [address] Eliu [place] [id number] When: Unknown [facility] 01-17-2023 Evaluation + Plan noteExtracted from: Title:Pain Managment Follow up Author:Leah Crawford Date:07/04/22 Patient: CHRISTIANO SANTACRUZ Age: 26 years Sex: Male : 1995 [...] morning it is better. Previous critical care physician did not help. Previous physical therapy did not help. Anti-inflammatory medications do not help. Health Status Allergies: Allergic Reactions (Selected) Moderate Dilaudid- Hives. Severity Not Documented Morphine- Anaphylaxis. OxyCODONE- Nausea., Allergies (3) ActiveReaction DilaudidHives morphineanaphylaxis oxyCODONENausea Current medications: (Selected) Prescriptions Prescribed Lexapro 20 mg Tab: 20 mg = 1 tab(s), Oral, Daily, # 30 tab(s), Refills(s) 1, [id number] 178, cm, 04/28/22 15:31:00 EST, Height/Length Dosing, 79.7, kg, 04/28/22 15:31:00 EST, Weight Dosing Vistaril 25 mg Cap: 25 mg = 1 cap(s), Oral, TID, PRN for anxiety, # 40 cap(s), Refills(s) 2, [id number], 178, cm, 04/28/22 15:31:00 EST, Height/Length Dosing, 79.7, kg, 04/28/22 15:31:00 EST, Weight Dosing cyclobenzaprine 10 mg Tab: 10 mg = 1 tab(s), Oral, TID, PRN for spasm, # 30 tab(s), Refills(s) 0, [id number] 178, cm, 03/28/22 14:15:00 EDT, Height/Length Dosing, 83.1, kg, 03/28/22 14:15:00 EDT, Weight Dosing phenylephrine 0.25% rectal gel: 1 evelyn, Topical, Daily for itching, 54 gram, Refill(s) 0, [id number], cm, 06/06/22 15:30:00 EST, Height/Length Dosing, 77, kg, 06/06/22 15:30:00 EST, Weight Dosing Documented Medications Documented acetaminophen: 1,000 mg, Oral, TID, PRN as needed for pain, Refills(s) 0 Problem list: All Problems Former smoker / SNOMED CT 80297620 / Confirmed BMI 23.0-23.9, adult / SNOMED CT 4319474777 / Confirmed Family history unknown / SNOMED CT 7226992299 / Confirmed Screening for cardiovascular condition / SNOMED CT 737860123 / Confirmed Enlarged tonsils / SNOMED CT 897701799 / Confirmed Difficulty swallowing / SNOMED CT 03605974 / Confirmed Constipation / SNOMED CT 90793060 / Confirmed after GB removed Hemolytic anemia / SNOMED CT 094838451 / Confirmed Non-smoker / SNOMED CT 07757064 / Confirmed Stomal ulcer / SNOMED CT 7936311052 / Confirmed Splenomegaly / SNOMED CT 77386012 / Confirmed Hospital discharge follow-up / SNOMED CT 8122568352 / Confirmed Hereditary spherocytosis / SNOMED CT 70556866 / Confirmed Testicle lump / SNOMED CT 369833596 / Confirmed Cervical radiculopathy / SNOMED CT 883511327 / Confirmed Cervical spondylosis / SNOMED CT 5750583235 / Confirmed Muscle spasms of neck / SNOMED CT 6235395536 / Confirmed Insomnia / SNOMED CT 816208881 / Confirmed Medial epicondylitis / SNOMED CT 67777521 / Confirmed Anxiety / SNOMED CT 87769184 / Confirmed PTSD (post-traumatic stress disorder) / SNOMED CT 64093565 / Confirmed Hearing deficit / SNOMED CT 09856845 / Confirmed Lower back pain / SNOMED CT 548993079 / Confirmed History of neck pain / SNOMED CT 4330555036 / Confirmed Resolved: Cholelithiasis / SNOMED CT 885314207 2009 Resolved: Sleep apnea / SNOMED CT 632232603 Canceled: Well adult exam / SNOMED CT 966416087 Canceled: Sore throat / SNOMED CT 523720973 Canceled: Pain in the abdomen / SNOMED CT 40071474 Canceled: Fever / SNOMED CT 5462536077 Objective Vital Signs 07/04/2022 15:31 EST Peripheral [...] Difficulty with overhead activity Integumentary: Warm, Dry, Ai. Injection site well-healed Neurologic: Alert, Oriented. Psychiatric: Cooperative, Appropriate mood & affect. Results Review M54.12 [place] REPORT IMPRESSION: MINIMAL CERVICAL SPONDYLOSIS C6-C7. MILD [...] on May 21, 2022 11:00 EST Encounter info:[id number], Cale Andujar, Outpatient, 05/19/2022 - 05/19/2022 Impression [...] this. Addendum by Leah Myrick PA-C on Kev johnson 2022 15:50 EST SIVAKUMAR score 8 Future Appointments Appointment Date:08/04/2022 03:00:00 PM Scheduled Provider:Leah Myrick PA-C Location:.[facility] [place] Appointment Type:Pain Management - Follow Up (FT) [facility]12-27-2022 Note [id number]:127[facility] 05-23-2022 Evaluation + Plan noteExtracted from: [...] Patient voiced understanding and will do so. [facility]12-02-2022 Hospital Discharge instructions Patient Education 05/19/2022 10:49:16 [...] pain. Follow these instructions at home: Take knpq-vkn-mmnoljj and prescription medicines only as told by [...] 03/09/2005 Document Revised: 05/17/2018 Document Reviewed: 05/25/2017 [employer] Patient Education 2020 [employer] Follow Up Care 05/19/2022 09:54:52 With:Lelia Franklin Address: [address] [place] [address] [phone] Business (1) When:05/22/2022 10:38:14 [facility]11-28-2022 Hospital Discharge instructions Patient Education 05/14/2022 22:51:09 [...] Follow these instructions at home: Medicines Take lpyp-nin-pccufzp and prescription medicines only as told by [...] of a condition that needs treatment. Take rxbj-acz-lfjgaqa and prescription medicines only as told by [...] 06/23/2019 Document Reviewed: 06/23/2019 Elsevier Patient Education 2020 [employer] Follow Up Care 05/14/2022 19:34:16 With:Lelia Franklin Address: [address] [place] [address] [phone] Business (1) When:05/17/2022 [facility] [facility] Hospital Discharge instructions Patient Education 05/12/2022 12:04:07 [...] than 2 years old. Live in a custodial. Travel on cruise ships. What are the [...] and water are not available, use hand organizational effectiveness consultant. Make sure that all people in your household wash their hands well and often. Take ahie-sjx-kvienlb and prescription medicines only as told by [...] and water are not available, use hand organizational effectiveness consultant. This information is not intended to replace advice given to you by your health care provider. Make sure you discuss any questions you have with your health care provider. Document Released: 06/04/2006 Document Revised: 11/21/2019 Document Reviewed: 04/09/2019 [employer] Patient Education 2020 [employer]. 05/12/2022 12:04:02 Upper Respiratory Infection, Adult Upper [...] medicines to help relieve symptoms, such as: Zvsq-lcg-yksztll cold medicines. Cough suppressants. Coughing is a [...] and other clear broths. General instructions Take vojr-srn-tsjrhrk and prescription medicines only as told by [...] and water are not available, use hand organizational effectiveness consultant. ?Avoid touching your mouth, face, eyes, or [...] 11/28/2001 Document Revised: 06/12/2019 Document Reviewed: 01/18/2018 [employer] Patient Education 2020 [employer]. Follow Up Care 05/12/2022 10:54:54 With:Rigoberto CHURCH, MAXWELL Ahuja Address: [address] [place] [address] [address] [place] [address] [phone] When: Unknown [facility] 11-21-2022 Evaluation + Plan noteExtracted [...] Future Appointments Appointment Date:05/23/2022 02:45:00 PM Scheduled Provider:Jenifer BOGGS, Sen Dodson Location:.[facility] Appointment Type:Pain Management - Follow Up (FT) [facility]05-20-2022 Evaluation + Plan noteExtracted from: Title:ED Note [...] 10:27:00 EDT XR Tib/Fib Right 2 View [facility]05-20-2022 Hospital Discharge instructions Patient Education 11/04/2021 11:31:02 Laceration Care, 7-10 ([id number]) Laceration Care A laceration is a cut [...] it as soon as possible. Only take njsd-isj-zpopywa or prescription medicines for pain, discomfort, or [...] worse. Document Released: 06/04/2006 Document Re-Released: 05/17/2009 [facility] [place] Patient Information 2010 [employer]. Follow Up Care 11/04/2021 10:07:42 With:[facility]: [phone] Address:Unknown When:11/07/2021 11:18:10 Comments:stitches to be removed in 10-14 days [facility] Future Appointments Appointment Date:03/08/2022 06:45:00 AM Scheduled Provider: Location:.[place] Appointment Type:PT Traction First (FT) Appointment Date:03/10/2022 06:45:00 AM Scheduled Provider: Location:.[place] Appointment Type:PT Traction First (FT) Appointment Date:03/15/2022 06:45:00 AM Scheduled Provider: Location:.[place] Appointment Type:PT Re-Eval 30 (FT) [facility] Future Appointments Appointment Date:04/28/2022 03:20:00 PM Scheduled Provider:Lelia Franklin NP Location:[facility] Appointment Type:[facility] Evaluation + Plan note Future Appointments Appointment Date:05/23/2022 02:45:00 PM Scheduled Provider:Sen Burgess MD Location:FT.[facility] [place] Appointment Type:Pain Management - Follow Up (FT) [facility] Evaluation + Plan note Future Appointments Appointment Date:05/23/2022 01:20:00 PM Scheduled Provider:Lelia Franklin NP Location:[facility] Appointment Type:FM ER/Hospital Follow Up Appointment Date:05/23/2022 02:45:00 PM Scheduled Provider:Sen Burgess MD Location:FT.[facility] [place] Appointment Type:Pain Management - [facility] Future Appointments Appointment Date:07/04/2022 03:30:00 PM Scheduled Provider:Sen Burgess MD Location:FT.[facility] [place] Appointment Type:Pain Management - [facility] ([facility] Diagnosis Dyspnea, unspecified type- Primary Dyspnea, unspecified type [facility] Diagnosis Dyspnea, unspecified type [facility]* Diagnosis Arthritis- Primary Arthropathy, unspecified, site unspecified Arthritis Arthropathy, unspecified, site unspecified [facility]* Diagnosis Arthritis Arthropathy, unspecified, site unspecified [facility] noteNo [facility] Work Phone: Evaluation note* Diagnosis Onset Date Resolution Status Low back strain acute Contact with and (suspected) exposure to covid-19 noneactive [facility] Work Phone: Hospital course Narrative No data available for this section [facility] instructions No data available for this section [facility] Progress note No data available for this section [facility] Reason for referral (narrative) Referred by: Lelia Franklin NP [facility] Summary Purpose Family History No Family History Records Found Relationship Condition Age at Onset Recorded Date/T chioma father Hypertension Unknown mother Phlebitis and thrombophlebitis Unknown Advance Directives No Advanced Directives Records Found Advance Directive Response Recorded Date/ Time Advance Directives No December 10 2:40pm Hospital Course Note Send Summary: Discharge Summ barby Providers: Provider RoleProvider Name ReferringOnders, Eagle AttendingOnders, Eagle PrimarySchwerAddie mcmullen Note Recipients: Eagle Mcmanus MD Schwerer, Kaitlin E, MD - [phone] [] Discharge: Summary: Admission Date: .21-Jan-2020 09:19:00 Discharge Date: 28-Jan-2020 Attending Physician at Discharge: Eagle Mcmanus Admission Reason: postop bleeding(1) Final Discharge Diagnoses: Hereditary spherocytosis Procedures: Date: 21-Jan-2020 16:05:00 Procedure Name: 1. laparoscopic splenectomy Date: 22-Jan-2020 12:36:00 Procedure Name: splenic artery branch embolization Condition at Discharge: Satisfactory Disposition at Discharge: .Home Vital Signs: T PRBPSpO2 [id number]/7599% Date/Time01/27 16:04812 16:048/12 16:04812 16:04812 16:04 Range(36C - 37.4C ) (84 - [...] laparoscopic splenectomy Surgeon: Dr Eagle Mcmanus Resident/Fellow/Other Molecular Pathologist: Dr Lynnette Kaiser, Dr Annette Kaufman Anesthesia: [...] artery branch Procedure performed by: freddie hurt Molecular Pathologist(s): tammy Estimated Blood Loss (mL): none Specimen: [...] laparoscopic splenectomy Surgeon: Dr Eagle Mcmanus Resident/Fellow/Other Molecular Pathologist: Dr Lynnette Kaiser, Dr Annette Kaufman Anesthesia: [...] artery branch Procedure performed by: freddie hurt Molecular Pathologist(s): tammy Estimated Blood Loss (mL): none Specimen: [...] Referral Specialty Diagnoses / Procedures [facility] Referred To Contact Radiology Diagnoses Arthritis Procedures XR C-SPINE 4 VIEWS Rosario Trevizo [address] [place] [phone] [facility] [address] [place] [address] [place] [phone] Referral ID Status Reason Start Date Expiration Date Visits Re quested Visits Authorized [id number] Closed 07/19/2023 07/18/2024 1 1 Specialty Diagnoses / Procedures [facility] Referred To Contact Radiology Diagnoses Dyspnea, unspecified type Procedures XR CHEST PA+LAT 2 VIEWS Rosario Trevizo [address] [place] [address] [facility] [address] [place] [address] [place] [phone] Referral ID Status Reason Start Date Expiration Date Visits Re quested Visits Authorized [id number] Closed 07/16/2023 07/15/2024 1 1 Chief Complaint [...] section and content) DATE CREATED AUTHOR 02/06/2020 [facility] DATE CREATED AUTHOR AUTHOR'S ORGANIZ ATION 06/29/2020 [facility] DATE CREATED AUTHOR AUTHOR'S ORGANIZ ATION 05/07/2023 [facility] DATE CREATED AUTHOR AUTHOR'S ORGANIZ ATION 07/23/2023 [facility] DATE CREATED AUTHOR AUTHOR'S ORGANIZ ATION 09/22/2024 [facility] Care Team (unrecognized sect ion and [...] XR CHEST PA+LAT [address] [place] [address] [facility] [address] [place] [address] [place] [address] Referral ID Status Reason Start Date Expiration Date Visits Re quested Visits Authorized [id number] Closed 07/16/2023 07/15/2024 1 1 Specialty Diagnoses / Procedures Referred By Contac t Referred To Contact Radiology Diagnoses Arthritis Procedures XR C-SPINE [address] [place] [address] [facility] [address] [place] [address] Referral ID Status Reason Start Date Expiration Date Visits Re quested Visits Authorized [id number] Closed 07/19/2023 07/18/2024 1 1 Goals (unrecognized [...] BE BASED ON THE PRIMARY CLINICAL RECORDS. [facility]. provides no warranty or guarantee of the accuracy or completeness of information in this document.
--- NOTE | 2024-12-09 01:37 | ED.DENTAL1 ---
HPI - Dental/Oral General Chief complaint: Dental/Oral Stated complaint: TOOTH PAIN Time Seen by Provider: 12/09/24 01:18 Source: patient Mode of arrival: walk-in Limitations: no limitations History of Present Illness HPI Narrative: patient presents complaining of increasing dental pain. States he has appointment tomorrow with his dentist but wanted something to help him get through the night. No fever or nausea Related Data Home Medications ?Medication ?Instructions ?Recorded ?Confirmed sertraline 50 mg tablet 150 mg PO Q24H 06/20/23 05/06/24 Previous Rx's ?Medication ?Instructions ?Recorded amoxicillin 875 mg-potassium 1 tab PO Q12H #20 tabs 09/10/24 clavulanate 125 mg tablet Allergies Allergy/AdvReac Type Severity Reaction Status Date / Time morphine Allergy Severe Anaphylaxis Verified 12/09/24 01:05 hydromorphone (From Dilaudid) Allergy Mild Nausea Verified 12/09/24 01:05 oxycodone Allergy Mild Nausea Verified 12/09/24 01:05 Review of Systems ROS Status of ROS 10 or more systems reviewed and unremarkable except as noted in history and below [facility] Medical History (Updated 12/09/24 @ 01:41 by Monty Diehl MD) Hereditary spherocytosis ?D58.0 - Hereditary spherocytosis (ICD-10) Deviated nasal septum ?J34.2 - Deviated nasal septum (ICD-10) Melena ?K92.1 - Melena (ICD-10) Depression ?F32.A - Depression, unspecified (ICD-10) Insomnia ?G47.00 - Insomnia, unspecified (ICD-10) Bulging disc Chronic migraine Surgical History (Updated 06/21/23 @ 00:01 by Rebecca Moody) H/O hernia repair ?Z98.890 - Other specified postprocedural states (ICD-10) ?Z87.19 - Personal history of other diseases of the digestive system (ICD-10) History of cholecystectomy ?Z90.49 - Acquired absence of other specified parts of digestive tract (ICD-10) Hx of tonsillectomy ?Z90.89 - Acquired absence of other organs (ICD-10) H/O splenectomy ?Z90.81 - Acquired absence of spleen (ICD-10) Family History (Updated 06/21/23 @ 00:02 by Rebecca Moody) Uncle Family history of myocardial infarction Social History (Updated 06/21/23 @ 00:06 by Rebecca Moody) Within the past year, how often did you have a drink containing alcohol: never Score interpretation: A score less than 4 is consistent with normal alcohol consumption. 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 Highest level of school completed/degree received: high school graduate Are you now , , , , never or living with a partner: In a typical week, how many times do you talk on the telephone with family, friends, or neighbors: 3 or more times per week How often do you get together with friends or relatives: 3 or more times per week How often do you attend samaritan or druze services: never Do you belong to any clubs or organizations such as samaritan groups unions, [employer] or athletic groups, or school groups: no Total score: 1 Score interpretation: A score of less than or equal to 1 indicates the most socially isolated. Little interest or pleasure in doing things: not at all Feeling down, depressed, or hopeless: not at all Feel stressed/tense/nervous/anxious/difficulty sleeping: to some extent Do you think of yourself as: straight/heterosexual Gender Identity: male Exam Constitutional Vital Signs, click to edit/add: Last Vital Signs Temp 97.9 F 12/09/24 01:02 Pulse 63 12/09/24 01:02 Resp 18 12/09/24 01:02 BP 149/95 H 12/09/24 01:02 Pulse Ox 98 12/09/24 01:02 O2 Del Method Room Air 12/09/24 01:02 Common normals: no apparent distress, average body habitus, oriented x3, no limitations, healthy appearing, alert and well nourished [facility] Common normals: normocephalic and head/scalp atraumatic Other: left upper premolar caries and tenderness Eye Common normals: EOMs intact bilaterally and conjunctivae normal Respiratory Common normals: normal respiratory effort, no retractions, no use of accessory muscles and clear to auscultation bilaterally Cardio Common normals: regular rate, regular rhythm, S1 normal heart sound and S2 normal heart sound Extremity Common normals: normal to inspection and full ROM Neuro Common normals: oriented x3, CN's II-XII intact bilaterally and moves all extremities Psych Appearance: grossly normal Course Vital Signs Vital signs: Vital Signs Temperature 97.9 F 12/09/24 01:02 Pulse Rate 63 12/09/24 01:02 Respiratory Rate 18 12/09/24 01:02 Blood Pressure 149/95 H 12/09/24 01:02 Pulse Oximetry 98 12/09/24 01:02 Oxygen Delivery Method Room Air 12/09/24 01:02 Temperature 97.9 F 12/09/24 01:02 Pulse Rate 63 12/09/24 01:02 Respiratory Rate 18 12/09/24 01:02 Blood Pressure 149/95 H 12/09/24 01:02 Pulse Oximetry 98 12/09/24 01:02 Oxygen Delivery Method Room Air 12/09/24 01:02 MDM - Dental/Oral MDM Narrative Medical decision making narrative: patient presents with dental caries and worsening pain. mild swelling about his tooth. no facial swelling. Given dose of amoxicillin and discharged with tyelnol with codeine which he states he can take. Is to see his dentist tomorrow as scheduled Discharge Plan Discharge Chief Complaint: Dental/Oral Clinical Impression: Dental caries, Dental abscess Patient Disposition: Home, Self-Care Prescriptions / Home Meds: No Action amoxicillin-pot clavulanate 875-125 mg tablet 1 tab PO Q12H Qty: 20 0RF sertraline 50 mg tablet 150 mg PO Q24H Print Language: Irish Instructions: Dental Abscess (ED) Additional Instructions: follow up with your dentist tomorrow Referrals: dArian Ambrosio MD [Primary Care Provider] - 1 week
[2024-12-09] MEDS: AMOXICILLIN 500 MG CAPSULE 1000 MG PO (01:50)
[2024-12-09] MEDS: ACETAMINOPHEN 300 MG/ 30 MG CODEINE TABLET 4 TAB PO (01:50)
== END 2024-12-09 01:54 | disposition home or self-care (01) ==
PROVIDERS: Emergency Provider Internal Medicine; PCP Family Medicine
DX: K04.7 Periapical abscess without sinus (principal); K02.9 Dental caries, unspecified; Z90.49 Acquired absence of other specified parts of digestive tract; Z90.81 Acquired absence of spleen; F17.290 Nicotine dependence, other tobacco product, uncomplicated
CPT/HCPCS: 99283

== ENCOUNTER 2024-12-10 17:03 | Emergency (ER) | payer OTHER, SELFPAY ==
--- OUTSIDE RECORDS SUMMARY | 2023-12-13 04:30 | XMS_ITS | Encounter Summary ---
Author Name [facility] [place] [facility] [place] Address [address] [place] [address] Care Team Providers Care Home Care Manager Name Role Phone ROSARIO ESCALERA Primary Care Provider [facility] Insurance Providers: All historical and current Section Date Range: From patient's date of to the date document was created. This section includes the names of all active insurance providers for the patient. Insurance Provider Type of Coverage Plan Name Start of Policy Coverage End of Policy Coverage Group Number Member ID Insurance Provider's Telephone Number Policy Jeffrey's Name Patient's Relationship to Policy Jeffrey Selected Encounter This section includes the information on record at [place] for the Encounter. Date/Time Encounter Type Encounter Description Reason Provider Source Dec 13, 2023 08:30 AM PSYTX W PT 30 MINUTES [facility] ICD-10-CM F43.12 Post-traumatic stress disorder, chronic ADDIS CLOUD Encounter Template Text not used by [place] Assessments - Encounter Diagnoses This section includes the primary and secondary diagnoses documented for the Encounter. Date/Time Primary/Secondary Diagnosis Diagnosis Name Provider Source Dec 13, 2023 08:59 AM PRIMARY Post-traumatic stress disorder, chronic ADDIS CLOUD CB Dec 13, 2023 08:59 AM SECONDARY Major depressive disorder, single episode, unspecified ADDIS CLOUD CB Dec 13, 2023 08:59 AM SECONDARY Personality disorder, unspecified ADDIS CLOUD Plan of Treatment: Future Appointments (+ 6 months) and Future Tests (+/- 45 days) The Plan of Treatment section includes future care activities for the patient from [facility] [place] [facility] This section includes future appointments and future orders which are active, pending or scheduled. Future Appointments This section includes appointments that were scheduled to occur 6 months from the date of the Encounter, up to a maximum of 20 appointments. The data comes from all [place] treatment facilities. Appointment Date/Time Appointment Type Appointme nt Facility Name Dec 17, 2023 11:00 AM AM[facility]ULATORY - NONE [facility] Dec 19, 2023 09:30 AM AMBULATORY - NONE [facility] Dec 25, 2023 08:30 AM AMBULATORY - PSYCHIATRY CL [facility] Dec 27, 2023 09:00 AM AM[facility]ORY - NONE [facility] Jan 03, 2024 03:30 PM AMBULATORY - PSYCHIATRY CL [facility] Jan 16, 2024 10:00 AM AMBULATORY - NONE [facility] Jan 22, 2024 02:00 PM AMBULATORY - PSYCHIATRY CL [facility] Jan 28, 2024 08:00 AM AMBULATORY - PSYCHIATRY CL [facility] Feb 14, 2024 09:00 AM AMBULATORY - NEUROLOGY [facility] Feb 21, 2024 09:45 AM AMBULATORY - NONE [facility] Feb 21, 2024 10:00 AM AMBULATORY - PSYCHIATRY CL [facility] Feb 26, 2024 03:00 PM [facility] Feb 28, 2024 01:00 PM [facility] - NONE [facility] Mar 04, 2024 08:00 AM AM[facility]ULATORY - NONE [facility] Mar 14, 2024 10:00 AM AMBULATORY - PSYCHIATRY CL [facility] Mar 19, 2024 10:30 AM AMBULATORY - PSYCHIATRY CL [facility] Mar 21, 2024 01:15 PM AMBULATORY - REHAB MEDICIN E [facility] Mar 27, 2024 11:00 AM AMBULATORY - PSYCHIATRY CL [facility] Apr 01, 2024 01:00 PM AMBULATORY - NONE [facility] Apr 02, 2024 01:00 PM AM[facility]ORY - [facility]RY [facility] Lab Results: +/- 30 days of the encounter This section includes the Chemistry and Hematology Lab Results on record with [place] for the patient. Radiology Reports and Pathology Reports are provided separately, in subsequent sections. Lab Results This section contains the Chemistry/Hematology Results that were resulted 30 days before or 30 daysafter the date of the Encounter. Date/Time Source Result Type Result - Unit Interpretation Reference Range Specimen Type Comment Dec 19, 2023 09:31 AM [facility] PATHOLOGY REVIEW BLOOD Specimen Type: BLOOD Comment: Giant Platelets Present. Large Platelets Present. Slide reviewed for lymphocytosis Few atypical lymphocytes present PATH REVIEW: Lymphocytic leukocytosis with atypical lymphocytes. Thrombocytosis. Findings can be seen in lymphoproliferative disorder. Correlation with clinical findings and flow cytometry testing is recommended. Ordering Provider: ROSARIO ESCALERA Report Released Date/Time: Dec 12, 2023 02:00 PM Reporting Lab: [address] [phone] Performing Lab: [address] [address] PATHOLOGY REVIEW [facility] Dec 19, 2023 09:31 AM [facility] LIPID PROFILE PLASMA Specimen Type: PLASMA Comment: CREATININE eGFR was calculated using the CKD-EPI 2020 equation. TRIGLYCERIDE REF RANGE: NORMAL <150 mg/dL BORDERLINE HIGH: 150-199 TRIGLYCERIDE mg/dL HIGH: 200-499 mg/dL VERY HIGH: >=500 mg/dL Ordering Provider: ROSARIO ESCALERA Report Released Date/Time: Dec 12, 2023 02:00 PM Reporting Lab: [address] [phone] Performing Lab: [address] [address] CHOLESTEROL 242 mg/dL H 135-200 LDL CHOLESTEROL 161.0 mg/dL H 0-110 HDL CHOLESTEROL 30 mg/dL L 40-60 TRIGLYCERIDE 299 mg/dL H 0-149 Dec 19, 2023 09:31 AM [facility] VITAMIN D (TOTAL) SERUM Specimen Type : SERUM No comment entered. Ordering Provider: ROSARIO ESCALERA Report Released Date/Time: Dec 12, 2023 02:00 PM Reporting Lab: [address] [address] Performing Lab: [address] [address] VITAMIN D (TOTAL) 7.00 ng/mL L 30-75 Dec 19, 2023 09:31 AM [facility] COMPREHENSIVE METABOLIC PANEL PLASMA S pecimen Type: PLASMA Comment: CREATININE eGFR was calculated using the CKD-EPI 2020 equation. Ordering Provider: ROSARIO ESCALERA Report Released Date/Time: Dec 12, 2023 02:00 PM Reporting Lab: [address] [address] Performing Lab: [place] [phone] ALBUMIN 4.7 g/dL 3.2-4.8 ALKALINE PHOSPHATASE 72 U/L 46-116 ALT/SGPT 22 U/L 10-45 AST/SGOT 20 U/L 0-33.9 BUN 8 mg/dL L 9-23 CALCIUM 9.9 mg/dL 8.7-10.4 CREATININE 1.0 mg/dL 0.70-1.30 CO2 25 mmol/L 21-32 GLUCOSE 80 mg/dL 74-106 PROTEIN, TOTAL 7.6 g/dL 6.4-8.5 SODIUM 138 mmol/L 136-148 CHLORIDE 108 mmol/L H 98-107 BILIRUBIN, TOTAL 0.7 mg/dL 0.3-1.2 POTASSIUM 4.0 mmol/L 3.5-5.1 ANION GAP 9.0 mmol/L L 10-20 EGFR (CALCULATED) 104 mL/min Dec 19, 2023 09:31 AM [facility] URINALYSIS URINE Specimen Type: URINE No comment entered. Ordering Provider: ROSARIO ESCALERA Report Released Date/Time: Dec 12, 2023 02:00 PM Reporting Lab: [address] [phone] Performing Lab: [place] [phone] SPECIFIC GRAVITY 1.031 H 1.016-1.022 URINE GLUCOSE Negative mg/dL Negative URINE PROTEIN 20 mg/dL Negative URINE PH 6.0 5.0-8.0 WBC/HPF 3 /[HPF] <=4 SQUAMOUS EPITHELIAL 1 /[HPF] <=4 NITRITE, URINE Negative Negative ESTERASE(WBC) Negative Negative URINE CLARITY Turbid H Clear URINE MUCUS Present H Negative URINE BILIRUBIN Negative mg/dL <=0.4 URINE BLOOD Negative mg/dL <0.05 UROBILINOGEN Negative mg/dL <=1 URINE KETONES Negative mg/dL <=9 URINE COLOR Yellow Dec 19, 2023 09:31 AM [facility] CBC BLOOD Specimen Type: BLOOD Comment: Giant Platelets Present. Large Platelets Present. Slide reviewed for lymphocytosis Few atypical lymphocytes present Ordering Provider: ROSARIO ESCALERA Report Released Date/Time: Dec 12, 2023 02:00 PM Reporting Lab: [facility] [id number] [facility] [phone] Performing Lab: [facility] [id number] [place] [phone] WBC COUNT 12.4 10*3/uL H 3.6-11.0 RBC COUNT 5.95 10*6/uL H 4.47-5.83 HGB 16.2 g/dL 13.6-17.4 HCT 47.9 40.0-51.0 MCV 80.5 fL 80.0-96.0 MCH 27.2 pg 27.0-31.0 MCHC 33.8 g/dL 31.5-36.5 PLT 417 10*3/uL H 150-400 NUCLEATED RBC/100WBC 0.1 /100{WBCs} None Established-None Established RDW 14.5 11.2-15.8 MPV 9.6 fL 7.4-11.4 LYMPHS % 43.5 21.0-51.0 MONOCYTES % 9.2 H 4.0-8.0 NEUTROPHIL % 43.5 L 54.0-78.0 EOSINOPHIL % 3.2 H 0.0-3.0 BASOPHIL % 0.6 0.0-3.0 ABSOLUTE LYMPHOCYTE COUNT 5.4 10*3/uL H 0. 8-5.0 ABSOLUTE NEUTROPHIL COUNT 5.4 10*3/uL 1. 9-8.6 ABSOLUTE BASOPHIL COUNT 0.1 10*3/uL 0.0- 0.3 ABSOLUTE MONOCYTE COUNT 1.1 10*3/uL H 0.1- 0.9 ABSOLUTE EOSINOPHIL COUNT 0.4 10*3/uL H 0. 0-0.3 PLT (ESTM) Increased YAMIL CELLS Present MANUAL SLIDE REVIEW Performed-See comments SMUDGE CELL Present Social History: Smoking Status (Most current) and Tobacco Use (All prior to encounter date) This section includes the most current, and the historical, smoking and tobacco- related health factors from the [place] facility where the Encounter took place. Current Smoking Status This section includes the most current smoking, or tobacco-related health factor, from the [place] facility where the Encounter took place. Date/Time Current Smoking Status Comment Lucinda andrade May 18, 2023 02:00 PM VA-TOBACCO FORMER USER [facility] Tobacco Use History This section includes a history of the smoking, or tobacco-related health factors, that were collected on or before the date of the Encounter. The data comes from the [place] facility where the Encounter took place. Date/Time Smoking Status/Tobacco Use Comment F acility May 18, 2023 02:00 PM VA-TOBACCO QUIT 1 TO < 5 YRS [facility] Advance Directives: All historical and current Section Date Range: From patient's date of to the date document was created. This section includes ALL of a patient's completed or amended [place] Advance and Rescinded Directives. The entries below indicate that a directive exists for the patient, but an actual copy is not included with this document. The data comes from all [place] facilities. Date Advance Directives Provider Source October 22, 2023 ADVANCE DIRECTIVE DISCUSSION SABINA NAIR [facility] Encounter Notes: All associated encounter notes This section contains the clinical notes associated to the Encounter. Date/Time Encounter Note(s) Provider Source Dec 13, 2023 08:01 AM MENTAL HEALTH COUN SELING NOTE: LOCAL TITLE: PSYCHIATRY PSYCHOTHERAPY INDIVIDUAL NOTE (T) STANDARD TITLE: MENTAL HEALTH COUNSELING NOTE DATE OF NOTE: DEC 13, 2023@08:01 ENTRY DATE: DEC 13, 2023@08:01:03 AUTHOR: ADDIS CLOUDIGNER: URGENCY: STATUS: COMPLETED Session Time and Duration: 8:25 am - 9:00 am 35 minutes assessment: 02.09.2023 DIAGNOSIS: PTSD ([place]); Insomnia; Depression; Personality D/O, Cluster B traits PATIENT'S STRENGTHS/ABILITIES: Self Identified: I don't know Provider Identified: Active [facility] in [employer] PATIENT'S 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 PROGRESS TOWARDS GOAL: Minimal progress clinical reminders due: none due TYPES OF THERAPY: Individual METHOD OF THERAPY: Skills building is 28 y/o male w/100% SC being treated in Specialty for therapy. He presents on time to scheduled in person therapy appt. He begins session w/sharing his mental and physical health have been negatively impacted since returning to work. He then proceeds to list symptoms intensified. He identifies plan to file SSDI. Review of option for Decision Analysis while observing he appears to have made his decision. He would like to utilize Decision Analysis w/encouragement to be aware of PTSD avoidance/stuck points impacting his work decision. Review of past gains made w/returning to work when motivated for housing, which they are no longer seeking in present market. He identifies it would be appealing to anyone to have the ability to spend their time at home. He reports the couple he resides with are supportive; he and female would remain home while her worked. When asked about finding child grief therapist, he reports loss of list and another copy is provided. [place] intends to leave his job w/desire to focus on MH [place]. He is resistant when reviewing skills gained w/CBTSP and past avoidance in [place]. is encouraged to consider use DBT skill development (confirmation this is not available thru [facility]), PTSD EBP and IOP supports. Review of c/o related to his ability to tolerate stress if utilizing weekly EBP as opposed to IOP setting. He will further consider options. He is c/o about sleep while also sharing feeling more tired since returning work. He confirms taking MH medications as prescribed. He would like to come back in 3 weeks. He is aware of MH support available to him in between appts. He is calm and stable at the end of the session with no SI/HI noted. INTERVENTIONS: Assessed mental health status and reviewed events since last session. SW assesses SI/HI and ability to remain safe at home. SW offers emotional support and uses active listening. SW reviews his goals for session. SW uses Decision Analysis w/options for him employment. SW offers grief/trauma support and education for him w/review of support options for minor son and resources provided. SW reinforces healthy coping strategies. 'S PARTICIPATION: x Actively participated in discussion Has a better understanding of therapeutic issues Understood or demonstrated a new strategy/skill Willing to practice discussed strategy/skill x Agrees to continue working towards treatment goals PLAN/HOMEWORK: 1. to follow up with this SW for therapy 2. to call clinic/VCL as needed in between sessions 3. MH medication mgmt. as scheduled 4. to follow Suicide Prevention plan from Mar 23, 2023. 5. CBTSP as scheduled MENTAL STATUS EXAM: ORIENTATION AND CONSCIOUSNESS: Alert and attentive, Alert and oriented x 3 APPEARANCE AND BEHAVIOR: Cooperative and reasonable, walks independently; minimal blinking SPEECH: Normal rate/rhythm LANGUAGE: Intact MOOD AND AFFECT: Mood Depressed, Affect w/minimal range PERCEPTUAL DISTURBANCE (Hallucinations, Illusions): None THOUGHT PROCESS AND ASSOCIATION: Normal, coherent THOUGHT CONTENT (delusions, Obsessions, etc.): No unusual thought content SUICIDAL OR VIOLENT IDEATION: He denies SI/HI. Safety plan developed on Mar. [place] presents as low-intermediate acute and chronic intermediate risk of suicide w/o imminent risk of harm. Risk Factors: ( ) Access to Means ( ) Plans for Suicide/Preparatory Behaviors (x) Chronic Major Mental Illness and/or Personality D/O (x) HX of prior suicide attempts ( ) HX of substance abuse/dependence (x) Chronic Pain (x) Chronic Medical Condition (x) Limited coping skills ( ) Unstable/Turbulent Psychosocial Status ( ) Limited ability to identify reasons for living (x) Tendency to be highly impulsive/ Risky Behaviors Protective Factors: ( ) Coping Skills (x) Reasons for living (x) Relative Psychosocial stability (x) Willing to Safety Plan (x) Spiritual Beliefs (x) Future Oriented (x) Support System (x) Engaged in Treatment MEMORY: Intact Will follow up with the in 3 weeks is aware to contact the clinic or the 's Crisis Line with concerns prior to the next scheduled visit. /deanna/ ADDIS HARDY [address] VENDOR Signed: 12/13/2023 15:02 ADDIS CLOUD OC
--- OUTSIDE RECORDS SUMMARY | 2023-12-17 07:00 | XMS_ITS | Encounter Summary ---
Author Name [facility] [place] [facility] [place] [place] Address [address] [place] [address] Care Team Providers Care Geospatial Specialist Name Role Phone ROSARIO ESCALERA Primary Care Provider [facility] Insurance Providers: All historical and current Section [...] section includes the information on record at [place] for the Encounter. Date/Time Encounter Type Encounter Description Reason Provider Source Dec 17, 2023 11:00 AM PSYTX W PT 60 [facility]UTES [facility] - IND ICD-10-CM R45.851 Suicidal ideations BERTRAND CASANOVA Sonya Encounter Template Text not used by [place] Assessments - Encounter Diagnoses This section includes the primary and secondary diagnoses documented for the Encounter. Date/Time Primary/Secondary Diagnosis Diagnosis Name Provider Source Dec 17, 2023 02:04 PM PRIMARY Suicidal ideations BERTRAND CASANOVA [facility] Dec 17, 2023 02:04 PM SECONDARY Personality disorder, unspecified BERTRAND CASANOVA [facility] Plan of Treatment: Future Appointments (+ 6 months) and Future Tests (+/- 45 days) The Plan of Treatment section includes future care activities for the patient from all [place] [facility] This section includes future appointments and future orders which are active, pending or scheduled. Future Appointments This section includes appointments that were scheduled to occur 6 months from the date of the Encounter, up to a maximum of 20 appointments. The data comes from all [place] treatment facilities. Appointment Date/Time Appointment Type Appointme nt Facility Name Dec 19, 2023 09:30 AM AMBULATORY - NONE [facility] Dec 25, 2023 08:30 AM AMBULATORY - PSYCHIATRY [facility] Dec 27, 2023 09:00 AM AMBULATORY - NONE [facility] Jan 03, 2024 03:30 PM AMBULATORY - PSYCHIATRY CL [facility] Jan 16, 2024 10:00 AM AMBULATORY - NONE [facility] Jan 22, 2024 02:00 PM AMBULATORY - PSYCHIATRY [facility] Jan 28, 2024 08:00 AM AMBULATORY - PSYCHIATRY [facility] Feb 14, 2024 09:00 AM AMBULATORY [facility]UROLOGY [facility] Feb 21, 2024 09:45 AM AMBULATORY - NONE [facility] Feb 21, 2024 10:00 AM AMBULATORY - PSYCHIATRY [facility] Feb 26, 2024 03:00 PM AMBULATORY - MEDICINE [facility] Feb 28, 2024 01:00 PM AMBULATORY - NONE [facility] Mar 04, 2024 08:00 AM AMBULATORY - NONE [facility] Mar 14, 2024 10:00 AM AMBULATORY - PSYCHIATRY [facility] Mar 19, 2024 10:30 AM AMBULATORY - PSYCHIATRY [facility] Mar 21, 2024 01:15 PM AMBULATORY - REHAB MEDICIN [facility] Mar 27, 2024 11:00 AM AMBULATORY - PSYCHIATRY [facility] Apr 01, 2024 01:00 PM AMBULATORY - NONE [facility] Apr 02, 2024 01:00 PM AMBULATORY - PSYCHIATRY [facility] Apr 08, 2024 02:00 PM AMBULATORY - PSYCHIATRY [facility] Lab Results: +/- 30 days of the encounter This section includes the Chemistry and Hematology Lab Results on record with [facility] for the patient. Radiology Reports and Pathology Reports are provided separately, in subsequent sections. Lab Results This section contains the Chemistry/Hematology Results that were resulted 30 days before or 30 daysafter the date of the Encounter. Date/Time Source Result Type Result - Unit Interpretation Reference Range Specimen Type Comment Jan 16, 2024 12:00 PM [facility] BASE PANEL (FLOW CYTOMETRY) BLOOD Specimen Ty pe: BLOOD No comment entered. Ordering Provider: RUSLAN VILLEGAS Report Released Date/Time: Jan 17, 2024 11:38 AM Reporting Lab: [address] [address] Performing Lab: [address] [address] PATHOLOGY REVIEW [facility] FLOW CYTOMETRY COMMENT [facility] Jan 16, 2024 09:50 AM [facility] LEUKEMIA/LYMPHOMA MARKER EVALUATION BLOOD Specimen Type: BLOOD Comment: Adequate hemoglobin. Spherocytes and many giant platelets noted. Absolute monocytosis. Leukocytosis with no left shifted neutrophils. Lymphocytic leukocytos. Myelocytes / immature grans are not observed. Leukocytes appear mature with rare subset of neutrophils displaying hypolobation / pelgeroid forms. If leukocytosis persists, without clinical context, a bone marrow biopsy in addition to viral studies may be of further diagnostic value. Correlation with clinical findings and flow cytometry testing is recommended. Ordering Provider: ROSARIO ESCALERA Report Released Date/Time: Jan 08, 2024 03:53 PM Reporting Lab: [address] [address] Performing Lab: [address] [address] LEUK/LYMPH COMMENT comment PATHOLOGY [facility]VIEW [facility] Jan 16, 2024 09:50 AM [facility] HAPTOGLOBIN SERUM Specimen Type: SERUM No comment entered. Ordering Provider: ROSARIO ESCALERA Report Released Date/Time: Jan 08, 2024 03:53 PM Reporting Lab: [address] [address] Performing Lab: [address] [address] HAPTOGLOBIN 95 mg/dL 40-280 Jan 16, 2024 09:50 AM [facility] LDH PLASMA Specimen Type: PLASMA No comment entered. Ordering Provider: ROSARIO ESCALERA Report Released Date/Time: Jan 08, 2024 03:53 PM Reporting Lab: [address] [address] Performing Lab: [address] [address] LDH 285 U/L H 125-220 Dec 19, 2023 09:31 AM [facility] PATHOLOGY REVIEW BLOOD Specimen Type: BLOOD Comment: Giant Platelets Present. Large Platelets Present. Slide reviewed for lymphocytosis Few atypical lymphocytes present PATH REVIEW: Lymphocytic leukocytosis with atypical lymphocytes. Thrombocytosis. Findings can be seen in lymphoproliferative disorder. Correlation with clinical findings and flow cytometry testing is recommended. Ordering Provider: ROSARIO ESCALERA Report Released Date/Time: Dec 12, 2023 02:00 PM Reporting Lab: [address] [phone] Performing Lab: [address] [address] PATHOLOGY REVIEW [facility] Dec 19, 2023 09:31 AM [facility] VITAMIN D (TOTAL) SERUM Specimen Type : SERUM No comment entered. Ordering Provider: ROSARIO ESCALERA Report Released Date/Time: Dec 12, 2023 02:00 PM Reporting Lab: [address] [address] Performing Lab: [address] [address] VITAMIN D (TOTAL) 7.00 ng/mL L 30-75 Dec 19, 2023 09:31 AM [facility] LIPID PROFILE PLASMA Specimen Type: PLASMA Comment: CREATININE eGFR was calculated using the CKD-EPI 2020 equation. TRIGLYCERIDE REF RANGE: NORMAL <150 mg/dL BORDERLINE HIGH: 150-199 TRIGLYCERIDE mg/dL HIGH: 200-499 mg/dL VERY HIGH: >=500 mg/dL Ordering Provider: ROSARIO ESCALERA Report Released Date/Time: Dec 12, 2023 02:00 PM Reporting Lab: [address] [address] Performing Lab: [address] [address] CHOLESTEROL 242 mg/dL H 135-200 LDL CHOLESTEROL 161.0 mg/dL H 0-110 HDL CHOLESTEROL 30 mg/dL L 40-60 TRIGLYCERIDE 299 mg/dL H 0-149 Dec 19, 2023 09:31 AM [facility] COMPREHENSIVE METABOLIC PANEL PLASMA S pecimen Type: PLASMA Comment: CREATININE eGFR was calculated using the CKD-EPI 2020 equation. Ordering Provider: ROSARIO ESCALERA Report Released Date/Time: Dec 12, 2023 02:00 PM Reporting Lab: [address] [address] Performing Lab: [address] [address] ALBUMIN 4.7 g/dL 3.2-4.8 ALKALINE PHOSPHATASE 72 [...] 104 mL/min Dec 19, 2023 09:31 AM [facility] URINALYSIS URINE Specimen Type: URINE No comment entered. Ordering Provider: ROSARIO ESCALERA Report Released Date/Time: Dec 12, 2023 02:00 PM Reporting Lab: [address] [address] Performing Lab: [address] [address] SPECIFIC GRAVITY 1.031 H 1.016-1.022 URINE GLUCOSE [...] COLOR Yellow Dec 19, 2023 09:31 AM [facility] CBC BLOOD Specimen Type: BLOOD Comment: Giant Platelets Present. Large Platelets Present. Slide reviewed for lymphocytosis Few atypical lymphocytes present Ordering Provider: ROSARIO ESCALERA Report Released Date/Time: Dec 12, 2023 02:00 PM Reporting Lab: [address] [address] Performing Lab: [facility] [address] [facility] [address] WBC COUNT 12.4 10*3/uL H 3.6-11.0 RBC [...] and tobacco- related health factors from the [place] facility where the Encounter took place. Current Smoking Status This section includes the most current smoking, or tobacco-related health factor, from the [place] facility where the Encounter took place. Date/Time Current Smoking Status Bryanna andrade Jun 19, 2023 10:00 AM TOBACCO FORMER USER MORE 12 [facility] Advance Directives: All historical and current Section Date Range: From patient's date of to the date document was created. This section includes ALL of a patient's completed or amended [place] Advance and Rescinded Directives. The entries below indicate that a directive exists for the patient, but an actual copy is not included with this document. The data comes from all [place] facilities. Date Advance Directives Provider Source October 22, 2023 ADVANCE DIRECTIVE DISCUSSION SABINA NAIR [facility] Encounter Notes: All associated encounter notes This section contains the clinical notes associated to the Encounter. Date/Time Encounter Note(s) Provider Source Dec 17, 2023 11:00 AM PSYCHOLOGY NOTE: LOCAL TITLE: COGNITIVE BEHAVIORAL THERAPY-SUICIDE PREVENTION STANDARD TITLE: PSYCHOLOGY NOTE DATE OF NOTE: DEC 17, 2023@11:00 ENTRY DATE: DEC 17, 2023@13:30:38 AUTHOR: BERTRAND CASANOVA COSIGNER: URGENCY: STATUS: COMPLETED Cognitive Behavioral Therapy for Suicide Prevention (CBT-SP) This is engaging in CBT-SP. This is an evidence-based protocol 1-2x/week for approximately 12 sessions to reduce suicidal self-directed violence behaviors. Date: December 17, 2023 Start Time: 1100 End Time: 1200 Duration: 60 min Visit number: 13 Diagnosis: --------- Primary: F60.9 Personality disorder (SCT 67442903) Secondary: R45.851 Suicidal thoughts (SCT [id number]) This session was conducted via: Video to Home Visit conducted by synchronous telehealth. Patient verbal consent obtained. Location/emergency number confirmed. Environment surveyed and all participants identified. Virtual conference room locked. [place] confirmed being in a private and safe space. 's location during session: Home: [address] [place] [address] 's contact number during session: Emergency number for 's location during session: Phone: e911 (national) [phone] PRE-session risk assessment: Description of suicidal thoughts since last session: denies suicidal thoughts, plan or intent when asked. He reports he is leaving his job and feels like it is for the best, but I do feel guilty. He reports feeling like he is abandoning them after they helped me out. Discussed in session. On a scale 0-10, with 10 being the most intense, average level of intensity of suicidal thoughts since last session: 0 On a scale 0-10, with 10 being completely hopeless, average level of intensity of feelings of hopelessness since last session: 3 Thoughts about suicidal means since last session: Denied Suicidal preparatory behaviors since last session: Denied On a scale of 0-10, with 10 being highest urge, urge to kill self: 2 On a scale 0-10, with 10 being highest intent, intent to kill self: 0 Discussions of alcohol use and/or substance use are not being incorporated into CBT-SP for this . POST-session risk assessment: [place] reported the most helpful part of the session was: I don't have one today. Mood compared to pre-session: About the same On a scale of 0-10, with 10 being the highest urge, urge to kill self: 1 On a scale of 0-10, with 10 being the highest intent, intent to kill self: 0 Suicide risk assessment summary: Acute risk clinical impression: Low ACUTE risk. As evidenced by: No current suicidal intent AND no suicidal plan AND no preparatory behaviors AND collective high confidence (e.g., patient, care provider, family member) in the ability of the patient to independently maintain safety. reports support from his roommates and his son. He reports a desire to find a hobby and his thinking about getting back into martial arts. Chronic risk clinical impression: Intermediate CHRONIC risk. As evidenced by: May demonstrate chronic risk factors which are offset by protective factors, coping skills, reasons for living, and relative psychosocial stability that suggest a fairly enhanced ability to endure future crisis without resorting to self-directed violence and/or suicide. Chronic indicators of risk have not changed as documented in the Suicide Risk Evaluation-Comprehensive note dated October. Risk mitigation actions taken: Reviewed safety plan without updates RATIONALE FOR LEVELS OF RISK: At time of session, denied suicidal ideation, plan, and intent. At initial session, néstor reported experiencing chronic suicidal ideation daily and acknowledged making plans for suicide in the month prior to initial session stating he has thought about using a gun. At that time, he denied any reasons for living. Néstor has made one previous attempt; while in the by use of a gun. He reports protective factors including his friend, his son and his roommates. He also endorses having financial stability. He reports a desire to continue to engage in treatment. He reports a desire to also find a hobby I enjoy and heal. He also continues to develop his tattoos. Mental status exam: Orientation: Person, Place, Time, Situation Appearance: WNL dress/grooming/hygiene Speech: Average rate, Average volume Psychomotor behavior: Adequate eye contact Affect: Euthymic Thought content/process: Logical and goal-directed Homicidal ideations/plans: Not reported or observed Suicidal Ideations/Plans: Denied, Not reported or observed Session content: Relapse Prevention: Practice Homework reviewed: Homework was completed. Practiced Relapse Prevention Task. The therapist guided the through an imagery exercise using the Narrative Timeline, for the purpose of mentally practicing skills and strategies learned in treatment as a way to increase the likelihood that these skills will be used to cope with distress in the future. An opportunity to debrief the exercise was provided. Introduced homework for the next session. Review the Relapse Prevention worksheet using a future example. Discussed barriers to completing and [place] states, I can work on it over the next week. Néstor reports using the ITCH Method, Pros and Cons and he has decided to leave his job, providing a 2 week notice today. He states he would like to focus on healing as he feels not there, I feel stressed and overwhelmed, I can't focus, it has been hard to keep up. Discussed solutions and completed a 3C's worksheet on developing an alternative to thought to I am abandoning them. He was able to state, I gave them as much as I could , I am thankful I had that opportunity. He states he would like to take time and visit a friend in [place]. He states he would like to focus on no longer doing self-destructive behaviors and muscle through it, I need time to re adjust and not just ignore it. Changes in diagnosis or treatment plan: ------- [place] has one session remaining. Discussed discharge plans after the final session next week. reports he has several appointments scheduled and feels he has a plan forward. would like to continue to process grief, be there for his son and focus on depression symptom reduction and healing my self. Future appointments scheduled: 12/19/2023 09:30 [facility] 12/25/2023 08:30 [facility] MH OP PHRM 12/27/2023 09:00 [facility] PACT 1 01/03/2024 15:30 [facility] OP SW2 02/26/2024 15:00 [facility] SLEEP ATTENDING 2 Expected treatment outcome: has expressed some level of hopelessness which is complicated by grief. [place] reports a desire to engage in treatment. Impressions/Plan: Ongoing CBT-SP treatment with consent. [place] requested time, next session scheduled for 12/24/2023 at 11am. /deanna/ BERTRAND CASANOVA [employer] Signed: 12/17/2023 14:04 BERTRAND CASANOVA [facility] Dec 14, 2023 03:20 PM ADMINISTRATIVE NOT E: LOCAL TITLE: [facility] [employer] SCHEDULING ADMINISTRATION NOT STANDARD TITLE: ADMINISTRATIVE NOTE DATE OF NOTE: DEC 14, 2023@15:20 ENTRY DATE: DEC 14, 2023@15:20:38 AUTHOR: KIAN STRAUSS EXP COSIGNER: URGENCY: STATUS: COMPLETED Contacted ; Reminder call for appointment on:12/17/23 with [facility] PROVIDER PASCUAL CHRISTENSEN/SOSA with this author's TP# [phone] EXT [id number] AND/OR [id number]: for any questions/concerns. /alexandro STRAUSS ADVANCED MSA Signed: 12/14/2023 15:21 KIAN STRAUSS [facility]
--- OUTSIDE RECORDS SUMMARY | 2023-12-24 07:00 | XMS_ITS | Encounter Summary ---
Author Name [facility] Address [address] [place] [address] Care Team Providers Care Traffic Signal Mechanic Name Role Phone ROSARIO ESCALERA Primary Care Provider [facility] Insurance Providers: All historical and [...] section includes the information on record at [place] for the Encounter. Date/Time Encounter Type Encounter Description Reason Pro vider Source Dec 24, 2023 11:00 AM Outpatient Encounter [facility] Encounter Template Text not used by [place] Plan of Treatment: Future Appointments (+ 6 months) and Future Tests (+/- 45 days) The Plan of Treatment section includes future care activities for the patient from all [place] treatmentfacilities. This section includes future appointments and future orders which are active, pending or scheduled. Future Appointments This section includes appointments that were scheduled to occur 6 months from the date of the Encounter, up to a maximum of 20 appointments. The data comes from all [place] treatment facilities. Appointment Date/Time Appointment Type Appointme nt Facility Name Dec 25, 2023 08:30 AM AMBULATORY - PSYCHIATRY [facility] Dec 27, 2023 09:00 AM AMBULATORY - NONE [facility] Jan 03, 2024 03:30 PM AMBULATORY - PSYCHIATRY [facility] Jan 16, 2024 10:00 AM AMBULATORY - NONE [facility] Jan 22, 2024 02:00 PM AMBULATORY - PS[facility]CHIATRY [facility] Jan 28, 2024 08:00 AM AMBULATORY - PS[facility]CHIATRY [facility] Feb 14, 2024 09:00 AM AMBULATORY - NEUROLOGY [facility] Feb 21, 2024 09:45 AM AMBULATORY - NONE [facility] Feb 21, 2024 10:00 AM AMBULATORY - PS[facility]CHIATRY [facility] Feb 26, 2024 03:00 PM [facility] Feb 28, 2024 01:00 PM AMBULATORY - NONE [facility] Mar 04, 2024 08:00 AM AMBULATORY - NONE [facility] Mar 14, 2024 10:00 AM AMBULATORY - PSYCHIATRY [facility] Mar 19, 2024 10:30 AM AMBULATORY - PSYCHIATRY [facility] Mar 21, 2024 01:15 PM AMBULATORY - REHAB [facility]IC[facility] Mar 27, 2024 11:00 AM AMBULATORY - PSYCHIATRY [facility] Apr 01, 2024 01:00 PM AMBULATORY - NONE [facility] Apr 02, 2024 01:00 PM AMBULATORY - PSYCHIATRY [facility] Apr 08, 2024 02:00 PM AMBULATORY - PSYCHIATRY [facility] Apr 09, 2024 01:30 [facility] Lab Results: +/- 30 days of the [...] Type Comment Jan 16, 2024 12:00 PM [facility] BASE PANEL (FLOW CYTOMETRY) BLOOD Specimen Ty pe: BLOOD No comment entered. Ordering Provider: RUSLAN VILLEGAS Report Released Date/Time: Jan 17, 2024 11:38 AM Reporting Lab: [facility] [id number] [place] [id number] Performing Lab: [address] [address] PATHOLOGY REVIEW [facility] FLOW CYTOMETRY COMMENT [facility] Jan 16, 2024 09:50 AM [facility] LEUKEMIA/LYMPHOMA MARKER EVALUATION BLOOD Specimen Type: BLOOD [...] Jan 08, 2024 03:53 PM Reporting Lab: [address] [address] Performing Lab: [address] [address] LEUK/LYMPH COMMENT comment PATHOLOGY REVIEW [facility] Jan 16, 2024 09:50 AM [facility] HAPTOGLOBIN SERUM Specimen Type: SERUM No comment entered. Ordering Provider: ROSARIO ESCALERA Report Released Date/Time: Jan 08, 2024 03:53 PM Reporting Lab: [address] [address] Performing Lab: [address] [address] HAPTOGLOBIN 95 mg/dL 40-280 Jan 16, 2024 09:50 AM [facility] LDH PLASMA Specimen Type: PLASMA No comment entered. Ordering Provider: ROSARIO ESCALERA Report Released Date/Time: Jan 08, 2024 03:53 PM Reporting Lab: [address] [address] Performing Lab: [address] [address] LDH 285 U/L H 125-220 Dec 19, 2023 09:31 AM [facility] PATHOLOGY REVIEW BLOOD Specimen Type: BLOOD Comment: Giant Platelets Present. Large Platelets Present. Slide reviewed for lymphocytosis Few atypical lymphocytes present PATH REVIEW: Lymphocytic leukocytosis with atypical lymphocytes. Thrombocytosis. Findings can be seen in lymphoproliferative disorder. Correlation with clinical findings and flow cytometry testing is recommended. Ordering Provider: ROSARIO ESCALERA Report Released Date/Time: Dec 12, 2023 02:00 PM Reporting Lab: [address] [address] Performing Lab: [address] [address] PATHOLOGY REVIEW [facility] Dec 19, 2023 09:31 AM [facility] LIPID PROFILE PLASMA Specimen Type: PLASMA Comment: CREATININE eGFR was calculated using the CKD-EPI 2020 equation. TRIGLYCERIDE REF RANGE: NORMAL <150 mg/dL BORDERLINE HIGH: 150-199 TRIGLYCERIDE mg/dL HIGH: 200-499 mg/dL VERY HIGH: >=500 mg/dL Ordering Provider: ROSARIO ESCALERA Report Released Date/Time: Dec 12, 2023 02:00 PM Reporting Lab: [address] [address] Performing Lab: [address] [address] CHOLESTEROL 242 mg/dL H 135-200 LDL CHOLESTEROL 161.0 mg/dL H 0-110 HDL CHOLESTEROL 30 mg/dL L 40-60 TRIGLYCERIDE 299 mg/dL H 0-149 Dec 19, 2023 09:31 AM [facility] VITAMIN D (TOTAL) SERUM Specimen Type : SERUM No comment entered. Ordering Provider: ROSARIO ESCALERA Report Released Date/Time: Dec 12, 2023 02:00 PM Reporting Lab: [address] [address] Performing Lab: [address] [address] VITAMIN D (TOTAL) 7.00 ng/mL L 30-75 Dec 19, 2023 09:31 AM [facility] COMPREHENSIVE METABOLIC PANEL PLASMA S pecimen Type: PLASMA Comment: CREATININE eGFR was calculated using the CKD-EPI 2020 equation. Ordering Provider: ROSARIO ESCALERA Report Released Date/Time: Dec 12, 2023 02:00 PM Reporting Lab: [address] [address] Performing Lab: [address] [address] ALBUMIN 4.7 g/dL 3.2-4.8 ALKALINE PHOSPHATASE 72 [...] 104 mL/min Dec 19, 2023 09:31 AM [facility] URINALYSIS URINE Specimen Type: URINE No comment entered. Ordering Provider: ROSARIO ESCALERA Report Released Date/Time: Dec 12, 2023 02:00 PM Reporting Lab: [address] [address] Performing Lab: [address] [address] SPECIFIC GRAVITY 1.031 H 1.016-1.022 URINE GLUCOSE [...] COLOR Yellow Dec 19, 2023 09:31 AM [facility] CBC BLOOD Specimen Type: BLOOD Comment: Giant Platelets Present. Large Platelets Present. Slide reviewed for lymphocytosis Few atypical lymphocytes present Ordering Provider: ROSARIO ESCALERA Report Released Date/Time: Dec 12, 2023 02:00 PM Reporting Lab: [address] [address] Performing Lab: [address] [address] WBC COUNT 12.4 10*3/uL H 3.6-11.0 RBC [...] and tobacco- related health factors from the [place] facility where the Encounter took place. Current Smoking Status This section includes the most current smoking, or tobacco-related health factor, from the [place] facility where the Encounter took place. Date/Time Current Smoking Status Bryanna andrade Jun 19, 2023 10:00 AM TOBACCO FORMER USER [facility] Advance Directives: All historical and current Section Date Range: From patient's date of to the date document was created. This section includes ALL of a patient's completed or amended [place] Advance and Rescinded Directives. The entries below indicate that a directive exists for the patient, but an actual copy is not included with this document. The data comes from all [place] facilities. Date Advance Directives Provider Source October 22, 2023 ADVANCE DIRECTIVE DISCUSSION SABINA NAIR [facility] Encounter Notes: All associated encounter notes This section contains the clinical notes associated to the Encounter. Date/Time Encounter Note(s) Provider Source Dec 21, 2023 09:30 AM ADMINISTRATIVE NOT E: LOCAL TITLE: [facility] SCHEDULING ADMINISTRATION NOT STANDARD TITLE: ADMINISTRATIVE NOTE DATE OF NOTE: DEC 21, 2023@09:30 ENTRY DATE: DEC 21, 2023@09:30:53 AUTHOR: KIAN STRAUSS EXP COSIGNER: URGENCY: STATUS: COMPLETED Contacted [place]; Reminder call for appointment on:12/24/23 with [facility] PROVIDER PASCUAL CHRISTENSEN/SOSA with this author's TP# [phone] EXT [phone] AND/OR [phone]: for any questions/concerns. /es/ KIAN STRAUSS ADVANCED MSA Signed: 12/21/2023 09:32 KIAN STRAUSS [facility]
--- OUTSIDE RECORDS SUMMARY | 2023-12-25 04:30 | XMS_ITS | Encounter Summary ---
Author Name [facility] [place] [facility] [place] Address [address] [place] [address] Care Team Providers Care Automation Technologist Name Role Phone ROSARIO ESCALERA Primary Care Provider [facility] Insurance Providers: All historical and current Section [...] section includes the information on record at [place] for the Encounter. Date/Time Encounter Type Encounter Description Reason Provider Source Dec 25, 2023 08:30 AM MTMS BY LISA LÓPEZ [facility] - IND ICD-10-CM F43.12 Post-traumatic stress disorder, chronic VALENTINA TENORIO Encounter Template Text not used by CT Assessments - Encounter Diagnoses This section includes the primary and secondary diagnoses documented for the Encounter. Date/Time Primary/Secondary Diagnosis Diagnosis Name Provider Source Dec 26, 2023 11:43 AM PRIMARY Post-traumatic stress disorder, chronic VALENTINA TENORIO CB Dec 26, 2023 11:43 AM SECONDARY Major depressive disorder, single episode, unspecified VALENTINA TENORIO CB Dec 26, 2023 11:43 AM SECONDARY Personality disorder, unspecified WILLBORN,VALENTINA T J [facility] Dec 26, 2023 11:43 AM SECONDARY Primary insomnia VALENTINA TENORIO [facility] Plan of Treatment: Future Appointments (+ 6 months) and Future Tests (+/- 45 days) The Plan of Treatment section includes future care activities for the [facility] This section includes future appointments and future orders which are active, pending or scheduled. Future Appointments This section includes appointments that were scheduled to occur 6 months from the date of the Encounter, up to a maximum of 20 appointments. The data comes from all [place] treatment facilities. Appointment Date/Time Appointment Type Appointme nt Facility Name Dec 27, 2023 09:00 AM AMBULATORY - NONE [facility] Jan 03, 2024 03:30 PM AMBULATORY - PSYCHIATRY [facility] Jan 16, 2024 10:00 AM AMBULATORY - NONE [facility] Jan 22, 2024 02:00 PM AMBULATORY - PSYCHIATRY [facility] Jan 28, 2024 08:00 AM AMBULATORY - PSYCHIATRY [facility] Feb 14, 2024 09:00 AM AMBULATORY - NEUROLOGY [facility] Feb 21, 2024 09:45 AM AMBULATORY - NONE [facility] Feb 21, 2024 10:00 AM AMBULATORY - PSYCHIATRY [facility] Feb 26, 2024 03:00 PM AMBULATORY - MEDICINE [facility] Feb 28, 2024 01:00 PM AMBULATORY - NONE [facility] Mar 04, 2024 08:00 AM AMBULATORY - NONE [facility] Mar 14, 2024 10:00 AM AMBULATORY - PSYCHIATRY [facility] Mar 19, 2024 10:30 AM AMBULATORY - PSYCHIATRY [facility] Mar 21, 2024 01:15 PM AMBULATORY - REHAB MEDICIN E [facility] Mar 27, 2024 11:00 AM AMBULATORY - PSYCHIATRY [facility] Apr 01, 2024 01:00 PM AMBULATORY - NONE [facility] Apr 02, 2024 01:00 PM AMBULATORY - PSYCHIATRY [facility] Apr 08, 2024 02:00 PM AMBULATORY - PSYCHIATRY [facility] Apr 09, 2024 01:30 PM AMBULATORY - REHAB MEDICIN E [facility] Apr 21, 2024 09:30 AM AMBULATORY - PSYCHIATRY [facility] Lab Results: +/- 30 days of [...] Type Comment Jan 16, 2024 12:00 PM [facility] BASE PANEL (FLOW CYTOMETRY) BLOOD Specimen Ty pe: BLOOD No comment entered. Ordering Provider: RUSLAN VILLEGAS Report Released Date/Time: Jan 17, 2024 11:38 AM Reporting Lab: [address] [address] Performing Lab: [address] [address] PATHOLOGY REVIEW SRC FLOW CYTOMETRY COMMENT [facility] Jan 16, 2024 09:50 AM [facility] LEUKEMIA/LYMPHOMA MARKER EVALUATION BLOOD Specimen Type: [...] Jan 08, 2024 03:53 PM Reporting Lab: [address] [phone] Performing Lab: [address] [address] LEUK/LYMPH COMMENT comment PATHOLOGY REVIEW SRCZ Jan 16, 2024 09:50 AM [facility] HAPTOGLOBIN SERUM Specimen Type: SERUM No comment entered. Ordering Provider: ROSARIO ESCALERA Report Released Date/Time: Jan 08, 2024 03:53 PM Reporting Lab: [address] [address] Performing Lab: [address] [address] HAPTOGLOBIN 95 mg/dL 40-280 Jan 16, 2024 09:50 AM [facility] LDH PLASMA Specimen Type: PLASMA No comment entered. Ordering Provider: ROSARIO ESCALERA Report Released Date/Time: Jan 08, 2024 03:53 PM Reporting Lab: [address] [address] Performing Lab: [address] [address] LDH 285 U/L H 125-220 Dec 19, 2023 09:31 AM [facility] PATHOLOGY REVIEW BLOOD Specimen Type: BLOOD Comment: Giant Platelets Present. Large Platelets Present. Slide reviewed for lymphocytosis Few atypical lymphocytes present PATH REVIEW: Lymphocytic leukocytosis with atypical lymphocytes. Thrombocytosis. Findings can be seen in lymphoproliferative disorder. Correlation with clinical findings and flow cytometry testing is recommended. Ordering Provider: ROSARIO ESCALERA Report Released Date/Time: Dec 12, 2023 02:00 PM Reporting Lab: [address] [phone] Performing Lab: [address] [address] PATHOLOGY REVIEW [facility] Dec 19, 2023 09:31 AM [facility] LIPID PROFILE PLASMA Specimen Type: PLASMA Comment: CREATININE eGFR was calculated using the CKD-EPI 2020 equation. TRIGLYCERIDE REF RANGE: NORMAL <150 mg/dL BORDERLINE HIGH: 150-199 TRIGLYCERIDE mg/dL HIGH: 200-499 mg/dL VERY HIGH: >=500 mg/dL Ordering Provider: ROSARIO ESCALERA Report Released Date/Time: Dec 12, 2023 02:00 PM Reporting Lab: [address] [address] Performing Lab: [address] [address] CHOLESTEROL 242 mg/dL H 135-200 LDL CHOLESTEROL 161.0 mg/dL H 0-110 HDL CHOLESTEROL 30 mg/dL L 40-60 TRIGLYCERIDE 299 mg/dL H 0-149 Dec 19, 2023 09:31 AM [facility] VITAMIN D (TOTAL) SERUM Specimen Type : SERUM No comment entered. Ordering Provider: ROSARIO ESCALERA Report Released Date/Time: Dec 12, 2023 02:00 PM Reporting Lab: [address] [address] Performing Lab: [address] [address] VITAMIN D (TOTAL) 7.00 ng/mL L 30-75 Dec 19, 2023 09:31 AM [facility] COMPREHENSIVE METABOLIC PANEL PLASMA S pecimen Type: PLASMA Comment: CREATININE eGFR was calculated using the CKD-EPI 2020 equation. Ordering Provider: ROSARIO ESCALERA Report Released Date/Time: Dec 12, 2023 02:00 PM Reporting Lab: [address] [address] Performing Lab: [address] [address] ALBUMIN 4.7 g/dL 3.2-4.8 ALKALINE PHOSPHATASE 72 [...] 104 mL/min Dec 19, 2023 09:31 AM [facility] URINALYSIS URINE Specimen Type: URINE No comment entered. Ordering Provider: ROSARIO ESCALERA Report Released Date/Time: Dec 12, 2023 02:00 PM Reporting Lab: [address] [address] Performing Lab: [place] [phone] SPECIFIC GRAVITY 1.031 H 1.016-1.022 URINE GLUCOSE [...] COLOR Yellow Dec 19, 2023 09:31 AM [facility] CBC BLOOD Specimen Type: BLOOD Comment: Giant Platelets Present. Large Platelets Present. Slide reviewed for lymphocytosis Few atypical lymphocytes present Ordering Provider: ROSARIO ESCALERA Report Released Date/Time: Dec 12, 2023 02:00 PM Reporting Lab: [facility] [address] [facility] [phone] Performing Lab: [facility] [address] [facility] [phone] WBC COUNT 12.4 10*3/uL H 3.6-11.0 RBC [...] and tobacco- related health factors from the [facility] where the Encounter took place. Current Smoking Status This section includes the most current smoking, or tobacco-related health factor, from the [place] facility where the Encounter took place. Date/Time Current Smoking Status Comment Facil ity May 18, 2023 02:00 PM VA-TOBACCO FORMER USER [facility] Tobacco Use History This section includes a history of the smoking, or tobacco-related health factors, that were collected on or before the date of the Encounter. The data comes from the [place] facility where the Encounter took place. Date/Time Smoking Status/Tobacco Use Comment F acility May 18, 2023 02:00 PM VA-TOBACCO QUIT 1 TO < 5 YRS [facility] Advance Directives: All historical and current Section Date Range: From patient's date of to the date document was created. This section includes ALL of a patient's completed or amended VA Advance and Rescinded Directives. The entries below indicate that a directive exists for the patient, but an actual copy is not included with this document. The data comes from all [place] facilities. Date Advance Directives Provider Source October 22, 2023 ADVANCE DIRECTIVE DISCUSSION SABINA NAIR [facility] Encounter Notes: All associated encounter notes This section contains the clinical notes associated to the Encounter. Date/Time Encounter Note(s) Provider Source Dec 25, 2023 08:33 AM PSYCHIATRY NOTE: LOCAL TITLE: [facility] PSYCHIATRY NOTE (T) STANDARD TITLE: PSYCHIATRY NOTE DATE OF NOTE: DEC 25, 2023@08:33 ENTRY DATE: DEC 25, 2023@08:33:24 AUTHOR: ABAD TENORIO COSIGNER: URGENCY: STATUS: COMPLETED PSYCHIATRIC EVALUATION NOTE Time in: 0830 Time out: 0858 Total time: 28 min AI is a 28yom w/ a MH h/o PTSD, depressive DO unspecified, and insomnia. Chart and available information reviewed. Video to Home Appointment: Patient has consented to receive this care by telehealth and confirmed his current location and phone number. Emergency contact number confirmed. - Physical location of patient during this video to home appointment: home - Phone number of patient during this video to home appointment: as listed - Phone number of other local contacts including first response number if not 911 and known: listed e-contact - Identify other participants that may be auditorily participating in video to home appointment: none CC: sleep HPI: Marion was last interviewed by this automatic typewriter inspector on 12/04/23 where he reported feeling not too bad.. it's been a process, being back at work.. it will take time to adjust, I'm on second shift . Sleep schedule with influence from this, although feeling this will improve. Waking up earlier and earlier, even though I'm tireder and tireder each day . Estimated 5-6 hours of sleep on average, remaining an improvement from baseline reporting. I recognize that I'm starting to have dreams, more recently I was able to remember that I dreamt.. the ones previous, they've all been different, but I in each one . Discussed recent anniversary of 's passing and stressors, with remark it's all a possibility influencing present state. Mood reportedly not too bad, back to work hasn't been too bad . Did receive venlafaxine. Reported trial as not too bad . About 8-10 days with tolerability expressed. Without the lithium I've been doing okay, nothing has changed much since we last spoke.. now that I'm through anniversary and things, we can see how things go . Some focus influence d/t reported hyperawareness. He was planning to continue CBT-SP around his work schedule. Will monitor medication perceptions on adequate trial. seen for [facility] appt as planned. Reported feeling tired today, and discussed having had a migraine yesterday and had to call off work. Feeling his last few days of work are dragging on, with this being his final week. Amenable to completing appointment today still. He is looking forward to focusing on treatment with being off work.. trying to take a break from a lot of the stressors I've been worried about, and trying to get out of [place] for a while . Will be visiting a peer from service in [place]; will be in [place]. He will be trying to see a handful of guys on this trip. CBT-SP engagement continues, with perceptions of ongoing support. His sleep is suffering of late, reportedly limited to a couple hours here and there.. dreams that I keep waking up from because I'm being killed in them . Feeling exhausted during the day and needing to nap to function. Estimated venlafaxine use at about 4 weeks at present. Denied tolerability concerns with use. Contrasted short-term perceptions with sertraline use previously, which showed good sleep benefits early on in treatment. Nooksack remains on the shelf , without indication for restart. Negative thought content reviewed as work has been the problem with that.. kind of why I'm ready for this to be over.. I'm there but not there.. I keep thinking about all the things I need to work on and take care of, the problems in my own life . Denied recent SI concerns on prompting, with intermittent passive and intrusive thoughts which he is able to detract from. Discussed concern for Shoaib and work as a stress. I've been more irritable, tired a lot more . Amenable to further investment into SNRI medication, with monitoring. Denied SI/HI at present. SUBSTANCE USE HX: Nicotine- vaped nicotine; deferred cessation interest at this time Alcohol- denied Illicit- denied PSYCHIATRIC MEDICATION HISTORY: According to CPRS and JLV remote data of CT outpatient Rx, the pt has a h/o TRAZODONE (non-VA); ESCITALOPRAM (up to 20mg daily, non-VA); HYDROXYZINE (25mg PRN anxiety, non-VA); SERTRALINE. FLUOXETINE (20mg non-VA); ARIPIPRAZOLE (2mg non-VA). Since engagement with this automatic typewriter inspector: SERTRALINE; LITHIUM ALLERGIES/ADVERSE REACTIONS Type: DRUG Date/Time Reactant Severity Reaction 02/15/2023 16:29 HYDROMORPHONE URTICARIA 02/15/2023 16:29 OXYCODONE NAUSEA AND VOMITING 02/15/2023 16:28 MORPHINE ANAPHYLAXIS Active Outpatient Medications Status 1) FLUTICASONE PROP 50MCG 120D NASAL INHL USE 2 SPRAYS ACTIVE IN EACH NOSTRIL EVERY DAY NASAL CONGESTION 2) LITHIUM CARBONATE 300MG SA TAB TAKE ONE TABLET BY ACTIVE MOUTH AT BEDTIME FOR MOOD 3) VENLAFAXINE HCL 75MG 24HR SA CAP TAKE ONE CAPSULE BY ACTIVE MOUTH EVERY DAY PTSD LABS: ANION GAP:9.0 (12/19/23 09:26) PLASMA BUN: 8 (12/19/23 09:26) PLASMA CA: 9.9 (12/19/23 09:26) PLASMA CL: 108 (12/19/23 09:26) PLASMA CO2: 25 (12/19/23 09:26) PLASMA CREA: 1.0 (12/19/23 09:26) PLASMA EGFR: 104 (12/19/23 09:26) PLASMA GLUCOSE: 80 (12/19/23 09:26) PLASMA K: 4.0 (12/19/23 09:26) PLASMA NA: 138 (12/19/23 09:26) PLASMA ALBUMIN: 4.7 (12/19/23 09:26) PLASMA ALKPHOS: 72 (12/19/23 09:26) PLASMA ALT/SGPT: 22 (12/19/23 09:26) PLASMA AST/SGOT: 20 (12/19/23 09:26) PLASMA BILI T: 0.7 (12/19/23 09:26) PLASMA T PROTEIN:7.6 (12/19/23 09:26) PLASMA TSH: 3.204 (05/24/23 13:27) PLASMA Collection DT Specimen Test Name Result Units Ref Range 04/26/2023 14:46 URINE BARBITURATES NEG Ref: NEG 04/26/2023 14:46 URINE AMPHETAMINES NEG Ref: NEG 04/26/2023 14:46 URINE COCAINE NEG Ref: NEG 04/26/2023 14:46 URINE BENZODIAZEPINES NEG Ref: NEG 04/26/2023 14:46 URINE CANNABINOIDS NEG Ref: NEG 04/26/2023 14:46 URINE OPIATES NEG Ref: NEG Vitals: T: 96.7 F [35.9 C] (11/20/2023 07:49) P: 82 (11/20/2023 07:49) R: 16 (11/20/2023 07:49) BP: 123/80 (11/20/2023 07:49) W: 180 lb [81.65 kg] (11/01/2023 14:58) BMI: 25.9 Mental Status Exam: Kacy: 28yom who appears stated age, dressed in casual attire, brown hair and appiah, orients to interviewer with good eye contact, seated comfortably Level of Consciousness: A&O x4 Psychomotor Activity: normal Speech: regular volume, rate and tone Mood: okay Affect: restricted Behavior: cooperative Thought Process: coherent, goal-directed Thought Content: denied SI/HI, no abnormal thought content noted Insight: fair Judgment: fair SELF-MEDICATION ASSESSMENT: Current medication regime reviewed with Client. Client/caregiver was able to verbalize names of medications, dosage, indications, common side effects and proper administration. Client/caregiver knowledgeable regarding obtaining refills, security and proper storage. Client/caregiver assessed to be appropriate to self-medicate. Patient was educated on condition, diagnosis, treatment plan, options for treatment, side effects, tardive dyskinesia, metabolic effects, addictive potential, risk/benefit ratio and use off-label medications. RISK ASSESSMENT: Does patient have firearms at home? denied Patient assessed for other lethal means? yes Suicidal risk assessment completed: yes Prior suicide attempts: yes, attempt in 2017, firearm w/ misfire, no engagement following. The risk for harming self is considered: acute and chronically low Risk factors: History of non-suicidal self-directed violence History of suicide attempt Losses Medical conditions and health-related problems Preexisting risk factors Psychological conditions Social/systemic problems Protective factors: Supportive and caring family and friends Connectedness to community, school, family, friends Access to appropriate medical and mental health care Restricted access to lethal means Violence assessment completed: yes Prior history of violence: yes, fighting in the service, denied since The risk of violence towards others is considered: low [place] made no comments during our conversation that were concerning and/or would suggest that the is at elevated imminent risk of harm to self or others ASSESSMENT: [place] with PTSD, depressive DO unspecified, and insomnia, engaging in a period of acute bereavement which has worsened preexisting symptoms. Reported baseline concerns for sleep dysregulation in maintenance with restricted duration and subsequent and broad neurovegetative mood symptoms in the setting of loss, irritability, mood sequelae, and edginess. Reporting SSRI support largely limited to sleep improvements at initial dosing, despite residuals, with titration yielding questions on benefit over time. Nooksack augmentation, at one time viewed as supportive for SI and negative thought content, also in disuse. Alternative trial with tolerability and limited benefit to this point, warranting further assessment via titration. PLAN: -> PTSD, depressive DO unspecified: - offered supportive listening and encouraged to optimize both medication and counseling therapies - increase venlafaxine SA to 150mg daily - HOLD lithium SA 300mg QHS -> monitor: mood, sleep, anxiety, SUDHEER -> goals: find something that works -> progress: patient amenable to plan RTC: 3-4 weeks, sooner PRN. Patient was provided with the 24 Hr. Veterans/ Crisis Line - Dial [phone], press #1. Instructed to call 911 or to go to the nearest ER if suicidal ideation occurs. Call clinic with any questions, concerns or in crisis. Follow up with PCP for medical issues. Medication education and counseling for new medications added today was provided to the patient/caregiver based on the individual's needs. This included why the medication was prescribed, how it should be taken and for how long, what to expect from it and what happens if not taken as prescribed. The patient/caregiver was also informed about risks and potential adverse effects of this medication and agreed to medication trial. I certify that the patient/caregiver understood my education and instructions. MEDICATION RECONCILIATION MEDICATION RECONCILIATION REPORT reviewed and discussed with patient. VA prescription medications: Patient verifies that they are in receipt of a complete and accurate list of medications. Prescription medications from another source: Patient verifies that they are in receipt of a complete and accurate list of medications. Over the counter medications, vitamins, herbals, and nutritional supplements: Patient verifies that they are in receipt of a complete and accurate list of medications. Televideo Disclaimer: Patient consented to telehealth appointment. Patient educated as to likely difference between Telehealth care and face to face care. Patient informed of the risks and benefits of using Telehealth services and procedures and likely risks and benefits of using alternatives to Telehealth services. Patient informed of the right to refuse Telehealth services at any time without jeopardizing their right to future care, services or benefits. The identity and professional status of all participants in the Telehealth encounter shall be conveyed to the patient by the practitioner giving the care. /deanna/ ABAD TENORIO CLINICAL SALES SUPPORT ASSOCIATE Signed: 12/26/2023 11:43 ABAD TENORIO [facility]
--- OUTSIDE RECORDS SUMMARY | 2023-12-27 05:00 | XMS_ITS | Encounter Summary ---
Author Name [facility] ([place] Organization [facility] Address [address] [place] [address] Care Team Providers Care Career Technology Teacher Name Role Phone ROSARIO ESCALERA Primary Care Provider [facility] e Insurance Providers: All historical and current Section [...] section includes the information on record at [place] for the Encounter. Date/Time Encounter Type Encounter Description Reason Provider Source Dec 27, 2023 09:00 AM OFFICE O/P EST MOD 30 MIN PRIMARY CARE/MEDICINE ICD-10-CM D58.0 Hereditary spherocytosis DE ROSARIO MCKEON Encounter Template Text not used by [place] Assessments - Encounter Diagnoses This section includes the primary and secondary diagnoses documented for the Encounter. Date/Time Primary/Secondary Diagnosis Diagnosis Name Provider Source Dec 27, 2023 04:48 PM PRIMARY Hereditary spherocytosis ROSARIO ESCALERA [facility] Dec 27, 2023 04:48 PM SECONDARY Acquired absence of spleen ROSARIO ESCALERA [facility] Dec 27, 2023 04:48 PM SECONDARY Major depressive disorder, single episode, unspecified DE ROSARIO MCKEON [facility] Dec 27, 2023 04:48 PM SECONDARY Migraine, unsp, not intractable, without status migrainosus DE ROSARIO MCKEON [facility] Dec 27, 2023 04:48 PM SECONDARY Post-traumatic stress disorder, chronic DE ROSARIO MCKEON [facility] Plan of Treatment: Future Appointments (+ 6 months) and Future Tests (+/- 45 days) The Plan of Treatment section includes future care activities for the patient from all [place] [facility]. This section includes future appointments and future orders which are active, pending or scheduled. Future Appointments This section includes appointments that were scheduled to occur 6 months from the date of the Encounter, up to a maximum of 20 appointments. The data comes from all [place] [facility]. Appointment Date/Time Appointment Type Appointme nt Facility Name Jan 03, 2024 03:30 PM AMBULATORY - PSYCHIATRY [facility] Jan 16, 2024 10:00 AM AMBULATORY - NONE [facility] Jan 22, 2024 02:00 PM AMBULATORY - PSYCHIATRY [facility] Jan 28, 2024 08:00 AM AMBULATORY - PSYCHIATRY [facility] Feb 14, 2024 09:00 AM AMBULATORY - NEUROLOGY [facility] Feb 21, 2024 09:45 AM AMBULATORY - NONE [facility] Feb 21, 2024 10:00 AM AMBULATORY - PSYCHIATRY [facility] Feb 26, 2024 03:00 PM AMBULATORY - MEDICINE [facility] Feb 28, 2024 01:00 [facility] Mar 04, 2024 08:00 AM [facility] - NONE [facility] Mar 14, 2024 10:00 AM AMBULATORY - PSYCHIATRY [facility] Mar 19, 2024 10:30 AM AMBULATORY - PSYCHIATRY [facility] Mar 21, 2024 01:15 PM AMBULATORY - REHAB MEDICIN E [facility] Mar 27, 2024 11:00 AM AMBULATORY - PSYCHIATRY [facility] Apr 01, 2024 01:00 PM AMBULATORY - NONE [place] [facility] Apr 02, 2024 01:00 PM AMBULATORY - PSYCHIATRY [facility] Apr 08, 2024 02:00 PM AMBULATORY - PSYCHIATRY [facility] Apr 09, 2024 01:30 PM AMBULATORY - REHAB MEDICIN E [facility] Apr 21, 2024 09:30 AM AMBULATORY - PSYCHIATRY [facility] Apr 29, 2024 01:30 PM AMBULATORY - PSYCHIATRY [facility] Lab Results: +/- 30 days of [...] Type Comment Jan 16, 2024 12:00 PM [facility] BASE PANEL (FLOW CYTOMETRY) BLOOD Specimen Ty pe: BLOOD No comment entered. Ordering Provider: RUSLAN VILLEGAS Report Released Date/Time: Jan 17, 2024 11:38 AM Reporting Lab: [address] [address] Performing Lab: [address] [address] PATHOLOGY REVIEW [facility] FLOW CYTOMETRY COMMENT [facility] Jan 16, 2024 09:50 AM [facility] LEUKEMIA/LYMPHOMA MARKER EVALUATION BLOOD Specimen Type: [...] Jan 08, 2024 03:53 PM Reporting Lab: [address] [address] Performing Lab: [address] [address] LEUK/LYMPH COMMENT comment PATHOLOGY REVIEW [facility] Jan 16, 2024 09:50 AM [facility] HAPTOGLOBIN SERUM Specimen Type: SERUM No comment entered. Ordering Provider: ROSARIO ESCALERA Report Released Date/Time: Jan 08, 2024 03:53 PM Reporting Lab: [address] [address] Performing Lab: [address] [address] HAPTOGLOBIN 95 mg/dL 40-280 Jan 16, 2024 09:50 AM [facility] LDH PLASMA Specimen Type: PLASMA No comment entered. Ordering Provider: ROSARIO ESCALERA Report Released Date/Time: Jan 08, 2024 03:53 PM Reporting Lab: [address] [address] Performing Lab: [address] [address] LDH 285 U/L H 125-220 Dec 19, 2023 09:31 AM [facility] PATHOLOGY REVIEW BLOOD Specimen Type: BLOOD Comment: Giant Platelets Present. Large Platelets Present. Slide reviewed for lymphocytosis Few atypical lymphocytes present PATH REVIEW: Lymphocytic leukocytosis with atypical lymphocytes. Thrombocytosis. Findings can be seen in lymphoproliferative disorder. Correlation with clinical findings and flow cytometry testing is recommended. Ordering Provider: ROSARIO ESCALERA Report Released Date/Time: Dec 12, 2023 02:00 PM Reporting Lab: [address] [address] Performing Lab: [address] [address] PATHOLOGY REVIEW [facility] Dec 19, 2023 09:31 AM [facility] LIPID PROFILE PLASMA Specimen Type: PLASMA Comment: CREATININE eGFR was calculated using the CKD-EPI 2020 equation. TRIGLYCERIDE REF RANGE: NORMAL <150 mg/dL BORDERLINE HIGH: 150-199 TRIGLYCERIDE mg/dL HIGH: 200-499 mg/dL VERY HIGH: >=500 mg/dL Ordering Provider: ROSARIO ESCALERA Report Released Date/Time: Dec 12, 2023 02:00 PM Reporting Lab: [address] [address] Performing Lab: [address] [address] CHOLESTEROL 242 mg/dL H 135-200 LDL CHOLESTEROL 161.0 mg/dL H 0-110 HDL CHOLESTEROL 30 mg/dL L 40-60 TRIGLYCERIDE 299 mg/dL H 0-149 Dec 19, 2023 09:31 AM [facility] VITAMIN D (TOTAL) SERUM Specimen Type : SERUM No comment entered. Ordering Provider: ROSARIO ESCALERA Report Released Date/Time: Dec 12, 2023 02:00 PM Reporting Lab: [address] [address] Performing Lab: [address] [address] VITAMIN D (TOTAL) 7.00 ng/mL L 30-75 Dec 19, 2023 09:31 AM [facility] COMPREHENSIVE METABOLIC PANEL PLASMA S pecimen Type: PLASMA Comment: CREATININE eGFR was calculated using the CKD-EPI 2020 equation. Ordering Provider: ROSARIO ESCALERA Report Released Date/Time: Dec 12, 2023 02:00 PM Reporting Lab: [address] [address] Performing Lab: [address] [address] ALBUMIN 4.7 g/dL 3.2-4.8 ALKALINE PHOSPHATASE 72 [...] 104 mL/min Dec 19, 2023 09:31 AM [facility] URINALYSIS URINE Specimen Type: URINE No comment entered. Ordering Provider: ROSARIO ESCALERA Report Released Date/Time: Dec 12, 2023 02:00 PM Reporting Lab: [address] [address] Performing Lab: [address] [address] SPECIFIC GRAVITY 1.031 H 1.016-1.022 URINE GLUCOSE [...] COLOR Yellow Dec 19, 2023 09:31 AM [facility] CBC BLOOD Specimen Type: BLOOD Comment: Giant Platelets Present. Large Platelets Present. Slide reviewed for lymphocytosis Few atypical lymphocytes present Ordering Provider: ROSARIO ESCALERA Report Released Date/Time: Dec 12, 2023 02:00 PM Reporting Lab: [facility] [id number] [place] [phone] Performing Lab: [address] [address] WBC COUNT 12.4 10*3/uL H 3.6-11.0 RBC [...] and tobacco- related health factors from the [place] facility where the Encounter took place. Current Smoking Status This section includes the most current smoking, or tobacco-related health factor, from the [place] facility where the Encounter took place. Date/Time Current Smoking Status Comment Facil ity May 18, 2023 02:00 PM VA-TOBACCO FORMER USER [facility] Tobacco Use History This section includes a history of the smoking, or tobacco-related health factors, that were collected on or before the date of the Encounter. The data comes from the [place] facility where the Encounter took place. Date/Time Smoking Status/Tobacco Use Comment F acility May 18, 2023 02:00 PM VA-TOBACCO QUIT 1 TO < 5 YRS [facility] Advance Directives: All historical and current Section Date Range: From patient's date of to the date document was created. This section includes ALL of a patient's completed or amended [place] Advance and Rescinded Directives. The entries below indicate that a directive exists for the patient, but an actual copy is not included with this document. The data comes from all [place] facilities. Date Advance Directives Provider Source October 22, 2023 ADVANCE DIRECTIVE DISCUSSION [facility] Encounter Notes: All associated encounter notes This section contains the clinical notes associated to the Encounter. Date/Time Encounter Note(s) Provider Source Jan 17, 2024 09:47 AM ADDENDUM: LOCAL TITLE: Addendum STANDARD TITLE: ADDENDUM DATE OF NOTE: JAN 17, 2024@09:47:12 ENTRY DATE: JAN 17, 2024@09:47:14 AUTHOR: BARRY WHITE EXP COSIGNER: URGENCY: STATUS: COMPLETED Patient requesting a consult be put in for [place] for a vasectomy . I forgot to ask Dr. Ambrosio during my last appt . Patient also requesting Pain Management consult for chronic neck pain in [place] . I was seeing pain management at [facility] a couple years ago .- records requested. FWD to Dr. Ambrosio for consideration. /deanna/ BARRY WHITE REGISTERED NURSE Signed: 01/17/2024 09:56 Receipt Acknowledged By: 02/01/2024 15:51 /deanna/ ROSARIO ESCALERA PHYSICIAN --- Original Document --- 12/27/23 PRIMARY CARE OUTPATIENT NOTE (T): In-person Note 28yo Reason for Visit:HERE FOR SCHEDULED APPOINTMENT TO GO OVER HIS LABS AND TO DISCUSS HIS HX OF HYPERLIPIDEMIA - CERVICAL DISC DX-MIGRAINES- PTSD AND HX OF HEREDITARY SPHEROCYTOSIS - REVIEW OF SYSTEMS: GI: HAS CHRONIC PROBLEM WIH LOOSE BOWELS 1/2 HOUR AFTER EATING ( HAS GB REMOVED AT AGE 15) - OCCASIONAL HEARTBURN - - HAS HX OF ULCERS 4 YEARS AGO : DENIES DYSURIA OR HEMATURIA CARDIAC; DENIES CHEST PAIN,PALPATATIONS ,ORTHOPNEA OR PEDAL EDEMA RESPIRATORY:DENIES SOB- CHRONIC COUGH -OR WHEEZING NEURO: CONSTANT HEADACHES - MEDICATION DOES NOT HELP - OCCASIONAL TINGLING RIGHT HAND - CHRONIC NECK PAIN - LOW BACK PAIN - WILL GET MIGRAINE HEADACHES HABITS; TOBACCO;VAPES NICOTINE ETOH;NONE OTHER SUBSTANCES NEG PATIENT ALLERGIES DETAILED ALLERGIES/ADVERSE REACTIONS Type: DRUG Date/Time Reactant Severity Reaction 02/15/2023 16:29 HYDROMORPHONE URTICARIA 02/15/2023 16:29 OXYCODONE NAUSEA AND VOMITING 02/15/2023 16:28 MORPHINE ANAPHYLAXIS AMRS - MEDS (REC SUCCINCT) Active and Recently Inpatient, Outpatient and Clinic Medications (including Supplies): Active Outpatient Medications Status ======= 1) CHOLECALCIF 25MCG (D3-1,000UNIT) TAB TAKE THREE ACTIVE TABLETS BY MOUTH EVERY DAY FOR VITAMIN D DEFICIENCY 2) FLUTICASONE PROP 50MCG 120D NASAL INHL USE 2 SPRAYS ACTIVE IN EACH NOSTRIL EVERY DAY NASAL CONGESTION 3) LITHIUM CARBONATE 300MG SA TAB TAKE ONE TABLET BY ACTIVE MOUTH AT BEDTIME FOR MOOD 4) VENLAFAXINE HCL 75MG 24HR SA CAP TAKE ONE CAPSULE BY ACTIVE MOUTH EVERY DAY FOR 3 DAYS, THEN TAKE TWO CAPSULES EVERY DAY PHYSICAL EXAM: Vital Signs: T: 97.7 F [36.5 C] (12/27/2023 08:50) P: 60 (12/27/2023 08:50) R: 20 (12/27/2023 08:50) BP: 112/67 (12/27/2023 08:50) Pain: 2 (12/27/2023 08:58) Height: 70 in [177.8 cm] (12/27/2023 08:50) Weight: 182.8 lb [82.92 kg] (12/27/2023 08:50) Pulse Ox: 97% (12/27/2023 08:50) GENERAL: ALERT- ORIENTED X 4- NO DISTRESS LABS: REVIEWED WITH THE PATIENT: VIT D 7- CHOL 242- LDL CHOL 161 - HDL CHOL 30 - TG 299 WBC 12.4 PLT 417 - REST OK HEAD, EARS ,EYES,NOSE AND THROAT- NORMOCEPHALIC ,ROSE,EOMI, ENT NEG NECK: SUPPLE WITHOUT MASSES OR BRUITS CHEST/LUNG: CHEST SYMETRICAL- LUNGS CLEAR CARDIOVASCULAR : HEART RRR WITHOUT MURMUR GASTROINTESTINAL: ABDOMEN SOFT WITHOUT MASSES OR BRUITS EXTREMITIES; NO EDEMA NEURO: CN II-XII GROSSLY INTACT - NO TREMORS OR ABNORMAL MOVEMENTS ASSESSMENT/PLAN:HEREDITARY SPHEROCYTOSIS - S/P SPEENECTOMY E CONSULT HEMATOLOGY CERVICAL DISC DX MIGRAINES LOW BACK PAIN HYPERLIPIDEMIA - START ATORVASTATIN 10 MG DAILY GERD LOW VITAMIN D HEALTH MAINTENANCE/CLINICAL REMINDERS: MEDICATION RECONCILIATION Medication Reconciliation report reviewed and discussed with patient/caregiver. VA prescription medications, non-VA prescription medications, OTC and herbal medications reviewed: Patient/caregiver verifies that the list is complete and accurate and voices understanding. Patient/caregiver in possession of printed medication list. FOLLOW-UP:RTC IN 2 MONTHS FOR FASTING LABS AND IN 6 MONTHS TO SEE ME WITH LABS I am the Attending Physician. TOTAL TIME SPENT: Spent 30 minutes in care of this patient today including review of records, exam, and placing orders. /deanna/ ROSARIO ESCALERA PHYSICIAN Signed: 12/27/2023 16:48 [facility] Dec 27, 2023 09:04 AM INTERNAL MEDICINE OUTPATIENT NOTE: LOCAL TITLE: PRIMARY CARE OUTPATIENT NOTE (T) STANDARD TITLE: INTERNAL MEDICINE OUTPATIENT NOTE DATE OF NOTE: DEC 27, 2023@09:04 ENTRY DATE: DEC 27, 2023@09:04:48 AUTHOR: ROSARIO ESCALERA EXP COSIGNER: URGENCY: STATUS: COMPLETED PRIMARY CARE OUTPATIENT NOTE (T) Has ADDENDA In-person Note 28yo Amma Reason for Visit:HERE FOR SCHEDULED APPOINTMENT TO GO OVER HIS LABS AND TO DISCUSS HIS HX OF HYPERLIPIDEMIA - CERVICAL DISC DX-MIGRAINES- PTSD AND HX OF HEREDITARY SPHEROCYTOSIS - REVIEW OF SYSTEMS: GI: HAS CHRONIC PROBLEM WIH LOOSE BOWELS 1/2 HOUR AFTER EATING ( HAS GB REMOVED AT AGE 15) - OCCASIONAL HEARTBURN - - HAS HX OF ULCERS 4 YEARS AGO : DENIES DYSURIA OR HEMATURIA CARDIAC; DENIES CHEST PAIN,PALPATATIONS ,ORTHOPNEA OR PEDAL EDEMA RESPIRATORY:DENIES SOB- CHRONIC COUGH -OR WHEEZING NEURO: CONSTANT HEADACHES - MEDICATION DOES NOT HELP - OCCASIONAL TINGLING RIGHT HAND - CHRONIC NECK PAIN - LOW BACK PAIN - WILL GET MIGRAINE HEADACHES HABITS; TOBACCO;VAPES NICOTINE ETOH;NONE OTHER SUBSTANCES NEG PATIENT ALLERGIES DETAILED ALLERGIES/ADVERSE REACTIONS Type: DRUG Date/Time Reactant Severity Reaction 02/15/2023 16:29 HYDROMORPHONE URTICARIA 02/15/2023 16:29 OXYCODONE NAUSEA AND VOMITING 02/15/2023 16:28 MORPHINE ANAPHYLAXIS AMRS - MEDS (REC SUCCINCT) Active and Recently Inpatient, Outpatient and Clinic Medications (including Supplies): Active Outpatient Medications Status ======= 1) CHOLECALCIF 25MCG (D3-1,000UNIT) TAB TAKE THREE ACTIVE TABLETS BY MOUTH EVERY DAY FOR VITAMIN D DEFICIENCY 2) FLUTICASONE PROP 50MCG 120D NASAL INHL USE 2 SPRAYS ACTIVE IN EACH NOSTRIL EVERY DAY NASAL CONGESTION 3) LITHIUM CARBONATE 300MG SA TAB TAKE ONE TABLET BY ACTIVE MOUTH AT BEDTIME FOR MOOD 4) VENLAFAXINE HCL 75MG 24HR SA CAP TAKE ONE CAPSULE BY ACTIVE MOUTH EVERY DAY FOR 3 DAYS, THEN TAKE TWO CAPSULES EVERY DAY PHYSICAL EXAM: Vital Signs: T: 97.7 F [36.5 C] (12/27/2023 08:50) P: 60 (12/27/2023 08:50) R: 20 (12/27/2023 08:50) BP: 112/67 (12/27/2023 08:50) Pain: 2 (12/27/2023 08:58) Height: 70 in [177.8 cm] (12/27/2023 08:50) Weight: 182.8 lb [82.92 kg] (12/27/2023 08:50) Pulse Ox: 97% (12/27/2023 08:50) GENERAL: ALERT- ORIENTED X 4- NO DISTRESS LABS: REVIEWED WITH THE PATIENT: VIT D 7- CHOL 242- LDL CHOL 161 - HDL CHOL 30 - TG 299 WBC 12.4 PLT 417 - REST OK HEAD, EARS ,EYES,NOSE AND THROAT- NORMOCEPHALIC ,ROSE,EOMI, ENT NEG NECK: SUPPLE WITHOUT MASSES OR BRUITS CHEST/LUNG: CHEST SYMETRICAL- LUNGS CLEAR CARDIOVASCULAR : HEART RRR WITHOUT MURMUR GASTROINTESTINAL: ABDOMEN SOFT WITHOUT MASSES OR BRUITS EXTREMITIES; NO EDEMA NEURO: CN II-XII GROSSLY INTACT - NO TREMORS OR ABNORMAL MOVEMENTS ASSESSMENT/PLAN:HEREDITARY SPHEROCYTOSIS - S/P SPEENECTOMY E CONSULT HEMATOLOGY CERVICAL DISC DX MIGRAINES LOW BACK PAIN HYPERLIPIDEMIA - START ATORVASTATIN 10 MG DAILY GERD LOW VITAMIN D HEALTH MAINTENANCE/CLINICAL REMINDERS: MEDICATION RECONCILIATION Medication Reconciliation report reviewed and discussed with patient/caregiver. VA prescription medications, non-VA prescription medications, OTC and herbal medications reviewed: Patient/caregiver verifies that the list is complete and accurate and voices understanding. Patient/caregiver in possession of printed medication list. FOLLOW-UP:RTC IN 2 MONTHS FOR FASTING LABS AND IN 6 MONTHS TO SEE ME WITH LABS I am the Attending Physician. TOTAL TIME SPENT: Spent 30 minutes in care of this patient today including review of records, exam, and placing orders. /deanna/ ROSARIO ESCALERA PHYSICIAN Signed: 12/27/2023 16:48 01/17/2024 ADDENDUM STATUS: COMPLETED Patient requesting a consult be put in for [place] for a vasectomy . I forgot to ask Dr. Ambrosio during my last appt . Patient also requesting Pain Management consult for chronic neck pain in [place] . I was seeing pain management at [facility] a couple years ago .- records requested. FWD to Dr. Ambrosio for consideration. /deanna/ BARRY WHITE REGISTERED NURSE Signed: 01/17/2024 09:56 Receipt Acknowledged By: * AWAITING SIGNATURE * ROSARIO ESCALERA [facility] Dec 27, 2023 08:54 AM PRIMARY CARE NURSI DENZEL NOTE: LOCAL TITLE: OUTPATIENT NURSING INTAKE NOTE (T) STANDARD TITLE: PRIMARY CARE NURSING NOTE DATE OF NOTE: DEC 27, 2023@08:54 ENTRY DATE: DEC 27, 2023@08:54:23 AUTHOR: LEYLA MORAN COSIGNER: URGENCY: STATUS: COMPLETED Hemoglobin A1C Results: No Hemoglobin A1C Results Review Allergies Allergies reviewed and updated per protocol. ALLERGIES/ADVERSE REACTIONS Type: DRUG Date/Time Reactant Severity Reaction 02/15/2023 16:29 HYDROMORPHONE URTICARIA 02/15/2023 16:29 OXYCODONE NAUSEA AND VOMITING 02/15/2023 16:28 MORPHINE ANAPHYLAXIS MEDICATION LIST REVIEW REPORT Patient states not taking any OTC/Herbals at this visit. 1. Has the patient been feeling sad or distressed? No 2. Has the patient been having personal or family problems? No 3. Has the patient been experiencing worry and/or stress? No 4. Has the patient been having problems with drugs and/or alcohol? No 5. Crisis Line pocket card was provided to patient. No/patient declined [facility] ('s [place], [employer]) What matters most to you? Comment: pain management Clinical Reminders Activity BMI Screening: At this visit, the health risks of obesity were reviewed and discussed with the patient, and the benefits of a weight management treatment program, such as [facility] was discussed and offered to the patient. Patient declines referral. After discussing the health risks of obesity and offering a referral to [facility] or another weight loss program outside the [facility], the patient DECLINES REFERRAL to [facility] or other weight loss program at this time. COVID-19 Immunization: Refused Pfizer Monovalent COVID-19 vaccine Immunization: COVID-19 ([employer]), MRNA, LNP-S, PF, MAGED-SUCROSE, 30 MCG/0.3 ML (AGES 12+ YEARS) Refusal Reason: PATIENT DECISION Patient refuses all immunization(s) in the COVID-19 group Comment: don't trust it Date Documented: 12/27/23 08:58 Pain, Brief Evaluation: Type of pain: Ongoing Location: Low Back neck, h/a Intensity: Currently: 2 Usually: 5 Description of Pain: Aching Crushing Sharp Stabbing Evaluation: Pain will be evaluated by provider today. Notified via Verbal Communication. Patient Education Documentation: LEARNING NEEDS ASSESSMENT: The patient/family/significant other reports no changes in learning needs. /deanna/ LEYLA MORAN LICENSED PRACTICAL NURSE Signed: 12/27/2023 09:01 LEYLA MORAN [facility]
--- OUTSIDE RECORDS SUMMARY | 2023-12-28 07:00 | XMS_ITS ---
Author Name [facility] Organization [facility] Address [address] [place] [address] Care Team Providers Care Pediatric Medical Assistant Name Role Phone ROSARIO ESCALERA Primary Care Provider [facility] Insurance Providers: All historical and current Section [...] section includes the information on record at MD for the Encounter. 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 Date/Time Primary/Secondary Diagnosis Diagnosis Name Provider Source Dec 28, 2023 03:25 PM PRIMARY Spiritual or alevism counseling BLADIMIR VENCES [facility] Plan of Treatment: Future Appointments (+ 6 months) and Future Tests (+/- 45 days) The Plan of Treatment section includes future care activities for the patient from all MD treatmentfacilities. This section includes future appointments and future orders which are active, pending or scheduled. Future Appointments This section includes appointments that were scheduled to occur 6 months from the date of the Encounter, up to a maximum of 20 appointments. The data comes from all MD treatment [facility]. Appointment Date/Time Appointment Type Appointme nt Facility Name Jan 03, 2024 03:30 PM AMBULATORY - PSYCHIATRY [facility] Jan 16, 2024 10:00 AM AMBULATORY - NONE [facility] Jan 22, 2024 02:00 PM AMBULATORY - PSYCHIATRY [facility] Jan 28, 2024 08:00 AM AMBULATORY - PSYCHIATRY [facility] Feb 14, 2024 09:00 AM AMBULATORY - NEUROLOGY [facility] Feb 21, 2024 09:45 AM AMBULATORY - NONE [facility] Feb 21, 2024 10:00 AM AMBULATORY - PSYCHIATRY [facility] Feb 26, 2024 03:00 PM AMBULATORY - MEDICINE [facility] Feb 28, 2024 01:00 PM AMBULATORY - NONE [facility] Mar 04, 2024 08:00 AM AMBULATORY - NONE [facility] Mar 14, 2024 10:00 AM AMBULATORY - PSYCHIATRY [facility] Mar 19, 2024 10:30 AM AMBULATORY - PSYCHIATRY [facility] Mar 21, 2024 01:15 PM AMBULATORY - REHAB MEDICIN E [facility] Mar 27, 2024 11:00 AM AMBULATORY - PSYCHIATRY [facility] Apr 01, 2024 01:00 PM AMBULATORY - NONE [facility] Apr 02, 2024 01:00 PM AMBULATORY - PSYCHIATRY [facility] Apr 08, 2024 02:00 PM AMBULATORY - PSYCHIATRY [facility] Apr 09, 2024 01:30 PM AMBULATORY - REHAB MEDICIN E [facility] Apr 21, 2024 09:30 AM AMBULATORY - PSYCHIATRY [facility] Apr 29, 2024 01:30 PM AMBULATORY - PSYCHIATRY [facility] Lab Results: +/- 30 days of the encounter This section includes the Chemistry and Hematology Lab Results on record with MD for the patient. Radiology Reports and Pathology Reports are provided separately, in subsequent sections. Lab Results This section contains the Chemistry/Hematology Results that were resulted 30 days before or 30 daysafter the date of the Encounter. Date/Time Source Result Type Result - Unit Interpretation Reference Range Specimen Type Comment Jan 16, 2024 12:00 PM [facility] BASE PANEL (FLOW CYTOMETRY) BLOOD Specimen Ty pe: BLOOD No comment entered. Ordering Provider: RUSLAN VILLEGAS Report Released Date/Time: Jan 17, 2024 11:38 AM Reporting Lab: [address] [phone] Performing Lab: [address] [address] PATHOLOGY REVIEW [facility] FLOW CYTOMETRY COMMENT [facility] Jan 16, 2024 09:50 AM [facility] LEUKEMIA/LYMPHOMA MARKER EVALUATION BLOOD Specimen Type: [...] Jan 08, 2024 03:53 PM Reporting Lab: [address] [phone] Performing Lab: [address] [address] LEUK/LYMPH COMMENT comment PATHOLOGY REVIEW [facility] Jan 16, 2024 09:50 AM [facility] LDH PLASMA Specimen Type: PLASMA No comment entered. Ordering Provider: ROSARIO ESCALERA Report Released Date/Time: Jan 08, 2024 03:53 PM Reporting Lab: [address] [address] Performing Lab: [address] [address] LDH 285 U/L H 125-220 Jan 16, 2024 09:50 AM [facility] HAPTOGLOBIN SERUM Specimen Type: SERUM No comment entered. Ordering Provider: ROSARIO ESCALERA Report Released Date/Time: Jan 08, 2024 03:53 PM Reporting Lab: [address] [address] Performing Lab: [address] [address] HAPTOGLOBIN 95 mg/dL 40-280 Dec 19, 2023 09:31 AM [facility] PATHOLOGY REVIEW BLOOD Specimen Type: BLOOD Comment: Giant Platelets Present. Large Platelets Present. Slide reviewed for lymphocytosis Few atypical lymphocytes present PATH REVIEW: Lymphocytic leukocytosis with atypical lymphocytes. Thrombocytosis. Findings can be seen in lymphoproliferative disorder. Correlation with clinical findings and flow cytometry testing is recommended. Ordering Provider: ROSARIO ESCALERA Report Released Date/Time: Dec 12, 2023 02:00 PM Reporting Lab: [address] [phone] Performing Lab: [address] [address] PATHOLOGY REVIEW [facility] Dec 19, 2023 09:31 AM [facility] LIPID PROFILE PLASMA Specimen Type: PLASMA Comment: CREATININE eGFR was calculated using the CKD-EPI 2020 equation. TRIGLYCERIDE REF RANGE: NORMAL <150 mg/dL BORDERLINE HIGH: 150-199 TRIGLYCERIDE mg/dL HIGH: 200-499 mg/dL VERY HIGH: >=500 mg/dL Ordering Provider: ROSARIO ESCALERA Report Released Date/Time: Dec 12, 2023 02:00 PM Reporting Lab: [address] [address] Performing Lab: [address] [address] CHOLESTEROL 242 mg/dL H 135-200 LDL CHOLESTEROL 161.0 mg/dL H 0-110 HDL CHOLESTEROL 30 mg/dL L 40-60 TRIGLYCERIDE 299 mg/dL H 0-149 Dec 19, 2023 09:31 AM [facility] URINALYSIS URINE Specimen Type: URINE No comment entered. Ordering Provider: ROSARIO ESCALERA Report Released Date/Time: Dec 12, 2023 02:00 PM Reporting Lab: [address] [address] Performing Lab: [address] [address] SPECIFIC GRAVITY 1.031 H 1.016-1.022 URINE GLUCOSE [...] COLOR Yellow Dec 19, 2023 09:31 AM [facility] VITAMIN D (TOTAL) SERUM Specimen Type : SERUM No comment entered. Ordering Provider: ROSARIO ESCALERA Report Released Date/Time: Dec 12, 2023 02:00 PM Reporting Lab: [address] [address] Performing Lab: [address] [address] VITAMIN D (TOTAL) 7.00 ng/mL L 30-75 Dec 19, 2023 09:31 AM [facility] COMPREHENSIVE METABOLIC PANEL PLASMA S pecimen Type: PLASMA Comment: CREATININE eGFR was calculated using the CKD-EPI 2020 equation. Ordering Provider: ROSARIO ESCALERA Report Released Date/Time: Dec 12, 2023 02:00 PM Reporting Lab: [address] [address] Performing Lab: [address] [address] ALBUMIN 4.7 g/dL 3.2-4.8 ALKALINE PHOSPHATASE 72 [...] 104 mL/min Dec 19, 2023 09:31 AM [facility] CBC BLOOD Specimen Type: BLOOD Comment: Giant Platelets Present. Large Platelets Present. Slide reviewed for lymphocytosis Few atypical lymphocytes present Ordering Provider: ROSARIO ESCALERA Report Released Date/Time: Dec 12, 2023 02:00 PM Reporting Lab: [address] [address] Performing Lab: [address] [address] WBC COUNT 12.4 10*3/uL H 3.6-11.0 RBC [...] and tobacco- related health factors from the MD facility where the Encounter took place. Current Smoking Status This section includes the most current smoking, or tobacco-related health factor, from the MD facility where the Encounter took place. Date/Time Current Smoking Status Comment Lucinda andrade Jun 19, 2023 10:00 AM TOBACCO FORMER USER MORE [facility] Advance Directives: All historical and current Section Date Range: From patient's date of to the date document was created. This section includes ALL of a patient's completed or amended MD Advance and Rescinded Directives. The entries below indicate that a directive exists for the patient, but an actual copy is not included with this document. The data comes from all MD facilities. Date Advance Directives Provider Source October 22, 2023 ADVANCE DIRECTIVE DISCUSSION [facility] Encounter Notes: All associated encounter notes This section contains the clinical notes associated to the Encounter. 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 focused on two boss reflections during this visit: 1) exploring his last two weeks of work; leaving on a good/healthy note; goals for being really present at home with Shoaib & working more on our issues 2) exploring how to regain ability to connect with emotions (Grief Goal) other than 's anger & pessimism. [place] was receptive to exploring how to utilize gratitude as a simple noticing or observation exercise, writing down what is seen/heard/experienced, revisiting them. Ideas brainstormed & examples used. expressed value in this as a hope to begin to re-engage with what brings a smile, a hope, a lightness; even if for a short time. Interventions: presence, active listening, reflective questions, grief story processing, exploring emotions, role of simple gratitude observations, encouragement, affirmation, validation, support. Plan: requested appointment by [facility] for 01-11-24 @11am. expressed gratitude. 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
--- OUTSIDE RECORDS SUMMARY | 2024-01-03 11:30 | XMS_ITS | Encounter Summary ---
Author Name [facility] [place] Organization [facility] [place] Address [address] [place] [address] Care Team Providers Care Plastic Sheeting Cutter Name Role Phone ROSARIO ESCALERA Primary Care [...] section includes the information on record at [place] for the Encounter. Date/Time Encounter Type Encounter Description Reason Provider Source Jan 03, 2024 03:30 PM PSYTX W PT 45 MINUTES [facility] - IND ICD-10-CM F43.12 Post-traumatic stress disorder, chronic ADDIS CLOUD Encounter Template Text not used by [place] Assessments - Encounter Diagnoses This section includes the primary and secondary diagnoses documented for the Encounter. Date/Time Primary/Secondary Diagnosis Diagnosis Name Provider Source Jan 03, 2024 03:23 PM PRIMARY Post-traumatic stress disorder, chronic ADDIS CLOUD CB Jan 03, 2024 03:23 PM SECONDARY Major depressive disorder, single episode, unspecified ADDIS CLOUD CB Jan 03, 2024 03:23 PM SECONDARY Primary insomnia ADDIS CLOUD [facility] Plan of Treatment: Future Appointments (+ 6 months) and Future Tests (+/- 45 days) The Plan of Treatment section includes future care activities for the [facility] This section includes future appointments and future orders which are active, pending or scheduled. Future Appointments This section includes appointments that were scheduled to occur 6 months from the date of the Encounter, up to a maximum of 20 appointments. The data comes from all [place] treatment facilities. Appointment Date/Time Appointment Type Appointme nt Facility Name Jan 16, 2024 10:00 AM AMBULATORY - NONE [facility] Jan 22, 2024 02:00 PM AMBULATORY [facility]CHIATRY [facility] Jan 28, 2024 08:00 AM AMBULATORY - PSYCHIATRY [facility] Feb 14, 2024 09:00 AM AMBULATORY - NEUROLOGY [facility] Feb 21, 2024 09:45 AM AMBULATORY - NONE [facility] Feb 21, 2024 10:00 AM AMBULATORY - PSYCHIATRY [facility] Feb 26, 2024 03:00 PM [facility] Feb 28, 2024 01:00 PM [facility] Mar 04, 2024 08:00 [facility] Mar 14, 2024 10:00 AM AMBULATORY - PSYCHIATRY [facility] Mar 19, 2024 10:30 AM AMBULATORY - PSYCHIATRY [facility] Mar 21, 2024 01:15 PM AMBULATORY - REHAB MEDICIN E [facility] Mar 27, 2024 11:00 AM AMBULATORY - PSYCHIATRY [facility] Apr 01, 2024 01:00 PM [facility] Apr 02, 2024 01:00 PM AMBULATORY - PSYCHIATRY [facility] Apr 08, 2024 02:00 PM AMBULATORY - PSYCHIATRY [facility] Apr 09, 2024 01:30 PM AMBULATORY - REHAB MEDICIN E [facility] Apr 21, 2024 09:30 AM AMBULATORY - PSYCHIATRY [facility] Apr 29, 2024 01:30 PM AMBULATORY - PSYCHIATRY [facility] May 02, 2024 02:30 PM AMBULATORY - REHAB MEDICIN [facility] Lab Results: +/- 30 days of the encounter This section includes the Chemistry and Hematology Lab Results on record with [place] for the patient. Radiology Reports and Pathology Reports are provided separately, in subsequent sections. Lab Results This section contains the Chemistry/Hematology Results that were resulted 30 days before or 30 daysafter the date of the Encounter. Date/Time Source Result Type Result - Unit Interpretation Reference Range Specimen Type Comment Jan 16, 2024 12:00 PM [facility] BASE PANEL (FLOW CYTOMETRY) BLOOD Specimen Ty pe: BLOOD No comment entered. Ordering Provider: RUSLAN VILLEGAS Report Released Date/Time: Jan 17, 2024 11:38 AM Reporting Lab: [address] [address] Performing Lab: [address] [address] PATHOLOGY REVIEW [facility] FLOW CYTOMETRY COMMENT [facility] Jan 16, 2024 09:50 AM [facility] LEUKEMIA/LYMPHOMA MARKER EVALUATION BLOOD Specimen [...] Jan 08, 2024 03:53 PM Reporting Lab: [address] [address] Performing Lab: [address] [address] LEUK/LYMPH COMMENT comment PATHOLOGY REVIEW [facility] Jan 16, 2024 09:50 AM [facility] HAPTOGLOBIN SERUM Specimen Type: SERUM No comment entered. Ordering Provider: ROSARIO ESCALERA Report Released Date/Time: Jan 08, 2024 03:53 PM Reporting Lab: [address] [address] Performing Lab: [address] [address] HAPTOGLOBIN 95 mg/dL 40-280 Jan 16, 2024 09:50 AM [facility] LDH PLASMA Specimen Type: PLASMA No comment entered. Ordering Provider: ROSARIO SECALERA Report Released Date/Time: Jan 08, 2024 03:53 PM Reporting Lab: [address] [address] Performing Lab: [address] [address] LDH 285 U/L H 125-220 Dec 19, 2023 09:31 AM [facility] PATHOLOGY REVIEW BLOOD Specimen Type: BLOOD Comment: Giant Platelets Present. Large Platelets Present. Slide reviewed for lymphocytosis Few atypical lymphocytes present PATH REVIEW: Lymphocytic leukocytosis with atypical lymphocytes. Thrombocytosis. Findings can be seen in lymphoproliferative disorder. Correlation with clinical findings and flow cytometry testing is recommended. Ordering Provider: ROSARIO ESCALERA Report Released Date/Time: Dec 12, 2023 02:00 PM Reporting Lab: [address] [address] Performing Lab: [address] [address] PATHOLOGY REVIEW [facility] Dec 19, 2023 09:31 AM [facility] VITAMIN D (TOTAL) SERUM Specimen Type : SERUM No comment entered. Ordering Provider: ROSARIO ESCALERA Report Released Date/Time: Dec 12, 2023 02:00 PM Reporting Lab: [address] [address] Performing Lab: [address] [address] VITAMIN D (TOTAL) 7.00 ng/mL L 30-75 Dec 19, 2023 09:31 AM [facility] LIPID PROFILE PLASMA Specimen Type: PLASMA Comment: CREATININE eGFR was calculated using the CKD-EPI 2020 equation. TRIGLYCERIDE REF RANGE: NORMAL <150 mg/dL BORDERLINE HIGH: 150-199 TRIGLYCERIDE mg/dL HIGH: 200-499 mg/dL VERY HIGH: >=500 mg/dL Ordering Provider: ROSARIO ESCALERA Report Released Date/Time: Dec 12, 2023 02:00 PM Reporting Lab: [address] [address] Performing Lab: [address] [address] CHOLESTEROL 242 mg/dL H 135-200 LDL CHOLESTEROL 161.0 mg/dL H 0-110 HDL CHOLESTEROL 30 mg/dL L 40-60 TRIGLYCERIDE 299 mg/dL H 0-149 Dec 19, 2023 09:31 AM [facility] COMPREHENSIVE METABOLIC PANEL PLASMA S pecimen Type: PLASMA Comment: CREATININE eGFR was calculated using the CKD-EPI 2021 equation. Ordering Provider: ROSARIO ESCALERA Report Released Date/Time: Dec 12, 2023 02:00 PM Reporting Lab: [address] [address] Performing Lab: [place] [phone] ALBUMIN 4.7 g/dL 3.2-4.8 ALKALINE PHOSPHATASE 72 [...] 104 mL/min Dec 19, 2023 09:31 AM [facility] URINALYSIS URINE Specimen Type: URINE No comment entered. Ordering Provider: ROSARIO ESCALERA Report Released Date/Time: Dec 12, 2023 02:00 PM Reporting Lab: [address] [address] Performing Lab: [address] [address] SPECIFIC GRAVITY 1.031 H 1.016-1.022 URINE GLUCOSE [...] COLOR Yellow Dec 19, 2023 09:31 AM [facility] CBC BLOOD Specimen Type: BLOOD Comment: Giant Platelets Present. Large Platelets Present. Slide reviewed for lymphocytosis Few atypical lymphocytes present Ordering Provider: ROSARIO ESCALERA Report Released Date/Time: Dec 12, 2023 02:00 PM Reporting Lab: [facility] [address] [facility] [address] Performing Lab: [facility] [address] [facility] [address] WBC COUNT 12.4 10*3/uL H 3.6-11.0 RBC [...] and tobacco- related health factors from the [place] facility where the Encounter took place. Current Smoking Status This section includes the most current smoking, or tobacco-related health factor, from the [place] facility where the Encounter took place. Date/Time Current Smoking Status Bryanna andrade May 18, 2023 02:00 PM HI-TOBACCO QUIT 1 TO < 5 YRS [facility] Tobacco Use History This section includes a history of the smoking, or tobacco-related health factors, that were collected on or before the date of the Encounter. The data comes from the [place] facility where the Encounter took place. Date/Time Smoking Status/Tobacco Use Comment F acility May 18, 2023 02:00 PM [place]-TOBACCO QUIT 1 TO < 5 YRS [facility] Advance Directives: All historical and current Section Date Range: From patient's date of to the date document was created. This section includes ALL of a patient's completed or amended [place] Advance and Rescinded Directives. The entries below indicate that a directive exists for the patient, but an actual copy is not included with this document. The data comes from all [place] facilities. Date Advance Directives Provider Source October 22, 2023 ADVANCE DIRECTIVE DISCUSSION SABINA NAIR [facility] Encounter Notes: All associated encounter notes This section contains the clinical notes associated to the Encounter. Date/Time Encounter Note(s) Provider Source Jan 03, 2024 08:30 AM MENTAL HEALTH COUN SELING NOTE: LOCAL TITLE: PSYCHIATRY PSYCHOTHERAPY INDIVIDUAL NOTE (T) STANDARD TITLE: MENTAL HEALTH COUNSELING NOTE DATE OF NOTE: JAN 03, 2024@08:30 ENTRY DATE: JAN 03, 2024@08:30:08 AUTHOR: ADDIS CLOUD COSIGNER: URGENCY: STATUS: COMPLETED Session Time and Duration: 3:20 pm - 4:00 pm 40 minutes assessment: 02.09.2023 DIAGNOSIS: PTSD (SC); Insomnia; Depression; Personality D/O, Cluster B traits PATIENT'S STRENGTHS/ABILITIES: Self Identified: I don't know Provider Identified: Active partnership in [employer] 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 PROGRESS TOWARDS GOAL: Minimal progress clinical reminders due: none due TYPES OF THERAPY: Individual METHOD OF THERAPY: Skills building [place] is 28 y/o male w/100% SC being treated in Specialty for therapy. He presents on time to scheduled in person therapy appt. He provides updates on events since last session. He has left his job on good terms and also is hopeful for purchase of new home (w/friends/present roommates). did not follow up w/children's therapist as previously discussed. They review [place] and his son's processing of events and 's ability to tolerate. [place] identifies c/o his defense mechanisms w/Intellectualization and emotional numbing noted. They review his goals for therapy. He would like to r/s missed CBTSP appt. He declines resuming [facility] & [facility] referrals as they discuss finding supports w/more frequent appts than clinically indicated when not engaged in an EBP. They review more intensive TX in individual therapy would be an EBP or IOP; offered for Sleep, Depression, and/or PTSD EBPs. They also review option for DBT skill development as he was not eligible thru [facility]. He minimizes gains/skills learned in all TX modalities as opposed to his abilities. During this time they assess est. rapport as [place] identifies feeling there is a professional boundary. Review of options for another MH therapist and he does not want to restart w/sharing story. SW validates feelings while reviewing he has been avoidant of trauma. feels he has been treated like a delicate package. Review of his distress tolerance and ability to remain safe (which is why CBTSP referral was placed) when attempting to discuss trauma. Confirmation MH TX will work on his goals and if he feels prepared to engage in trauma TX this can be referred. He will further consider all options available to him. Tentative plan will be to begin DBT packets next appt w/his preference for shortened versions. He would like to come back in 1-2 weeks. He is aware of MH support available to him in between appts. He is calm and stable at the end of the session with no SI/HI noted. INTERVENTIONS: Assessed mental health status and reviewed events since last session. SW assesses SI/HI and ability to remain safe at home. SW offers emotional support and uses active listening. SW reviews his goals for session & MH therapy. SW offers grief/trauma support and education for him w/review of support options for minor son and resources provided. SW works to address problematic thinking patterns. SW reinforces healthy coping strategies. SW provides positive reinforcement for gains made in CBTSP and Heating Element Repairer notes. 'S PARTICIPATION: x Actively participated in discussion Has a better understanding of therapeutic issues Understood or demonstrated a new strategy/skill Willing to practice discussed strategy/skill x Agrees to continue working towards treatment goals PLAN/HOMEWORK: 1. [place] to follow up with this SW for therapy 2. [place] to call clinic/VCL as needed in between sessions 3. MH medication mgmt. as scheduled 4. [place] to follow Suicide Prevention plan from Mar 23, 2023. 5. CBTSP provider to be notified of 's desire to r/s missed appt 6. [place] to follow up w/children's therapist MENTAL STATUS EXAM: ORIENTATION AND CONSCIOUSNESS: Alert and attentive, Alert and oriented x 3 APPEARANCE AND BEHAVIOR: Cooperative and reasonable, walks independently; minimal blinking/stares - this is assessed w/him SPEECH: Normal rate/rhythm LANGUAGE: Intact MOOD AND AFFECT: Mood Depressed, Affect flat PERCEPTUAL DISTURBANCE (Hallucinations, Illusions): None THOUGHT PROCESS AND ASSOCIATION: Normal, coherent THOUGHT CONTENT (delusions, Obsessions, etc.): No unusual thought content SUICIDAL OR VIOLENT IDEATION: He denies SI/HI. Safety plan developed on Mar. [place] presents as low-intermediate acute and chronic intermediate [...] Intact Will follow up with the in 1-2 weeks is aware to contact the clinic or the 's Crisis Line with concerns prior to the next scheduled visit. Alerting CBTSP provider as would like to r/s missed CBTSP appt /es/ ADDIS HARDY CLINICIAL CHIEF MECHANICAL OFFICER Signed: 01/04/2024 07:59 Receipt Acknowledged By: 01/04/2024 09:31 /es/ BERTRAND CASANOVA Senior Superintendent Track ADDIS CLOUD [facility]
--- OUTSIDE RECORDS SUMMARY | 2024-01-21 07:00 | XMS_ITS | Encounter Summary ---
Author Name [facility] [place] [facility] [place] Organization [place] Address [address] [place] [address] Care Team Providers Care Paper Machine Tender Name Role Phone ROSARIO ESCALERA Primary Care Provider [facility] Insurance Providers: All historical and current [...] section includes the information on record at ID for the Encounter. Date/Time Encounter Type Encounter Description Reason Provider Source Jan 21, 2024 11:00 AM FUSION JUNCTURE GRINDER RETAIL GROCER JUANU FUSION JUNCTURE GRINDER SERVICE - INDIVIDUAL ICD-10-CM Z71.81 Spiritual or bahai counseling BLADIMIR VENCES Encounter Template Text not used by [place] Assessments - Encounter Diagnoses This section includes the primary and secondary diagnoses documented for the Encounter. Date/Time Primary/Secondary Diagnosis Diagnosis Name Provider Source Jan 21, 2024 01:37 PM PRIMARY Spiritual or bahai counseling BLADIMIR VENCES [facility] Plan of Treatment: Future Appointments (+ 6 months) and Future Tests (+/- 45 days) The Plan of Treatment section includes future care activities for the patient from all [place] treatmentfacilities. This section includes future appointments and future orders which are active, pending or scheduled. Future Appointments This section includes appointments that were scheduled to occur 6 months from the date of the Encounter, up to a maximum of 20 appointments. The data comes from all [facility] facilities. Appointment Date/Time Appointment Type Appointme nt Facility Name Jan 22, 2024 02:00 PM AMBULATORY - PSYCHIATRY [facility] Jan 28, 2024 08:00 AM AMBULATORY - PSYCHIATRY [facility] Feb 14, 2024 09:00 AM AMBULATORY - NEUROLOGY [facility] Feb 21, 2024 09:45 AM AMBULATORY - NONE [facility] Feb 21, 2024 10:00 AM AMBULATORY - PSYCHIATRY [facility] Feb 26, 2024 03:00 PM [facility] Feb 28, 2024 01:00 PM AMBULATORY - NONE [facility] Mar 04, 2024 08:00 [facility] Mar 14, 2024 10:00 AM AMBULATORY - PSYCHIATRY [facility] Mar 19, 2024 10:30 AM AMBULATORY - PSYCHIATRY [facility] Mar 21, 2024 01:15 PM AMBULATORY - REHAB MEDICIN [facility] Mar 27, 2024 11:00 AM AMBULATORY - PSYCHIATRY [facility] Apr 01, 2024 01:00 PM [facility] Apr 02, 2024 01:00 PM AMBULATORY - PSYCHIATRY [facility] Apr 08, 2024 02:00 PM AMBULATORY - PSYCHIATRY [facility] Apr 09, 2024 01:30 PM AMBULATORY - REHAB MEDICIN [facility] Apr 21, 2024 09:30 AM AMBULATORY - PSYCHIATRY [facility] Apr 29, 2024 01:30 PM AMBULATORY - PSYCHIATRY [facility] May 02, 2024 02:30 PM AMBULATORY - REHAB MEDICIN [facility] May 08, 2024 01:00 PM AMBULATORY - NEUROLOGY [facility] Lab Results: +/- 30 days of the encounter This section includes the Chemistry and Hematology Lab Results on record with ID for the patient. Radiology Reports and Pathology Reports are provided separately, in subsequent sections. Lab Results This section contains the Chemistry/Hematology Results that were resulted 30 days before or 30 daysafter the date of the Encounter. Date/Time Source Result Type Result - Unit Interpretation Reference Range Specimen Type Comment Jan 16, 2024 12:[address] [facility] BASE PANEL (FLOW CYTOMETRY) BLOOD Specimen Ty pe: BLOOD No comment entered. Ordering Provider: RUSLAN VILLEGAS Report Released Date/Time: Jan 17, 2024 11:38 AM Reporting Lab: [address] [address] Performing Lab: [address] [address] PATHOLOGY REVIEW [facility] FLOW CYTOMETRY COMMENT [facility] Jan 16, 2024 09:[address] [facility] LEUKEMIA/LYMPHOMA MARKER EVALUATION BLOOD Specimen Type: [...] Jan 08, 2024 03:53 PM Reporting Lab: [address] [address] Performing Lab: [address] [address] LEUK/LYMPH COMMENT comment PATHOLOGY REVIEW [facility] Jan 16, 2024 09:[address] [facility] LDH PLASMA Specimen Type: PLASMA No comment entered. Ordering Provider: ROSARIO ESCALERA Report Released Date/Time: Jan 08, 2024 03:53 PM Reporting Lab: [address] [address] Performing Lab: [address] [address] LDH 285 U/L H 125-220 Jan 16, 2024 09:[address] [facility] HAPTOGLOBIN SERUM Specimen Type: SERUM No comment entered. Ordering Provider: ROSARIO ESCALERA Report Released Date/Time: Jan 08, 2024 03:53 PM Reporting Lab: [address] [address] Performing Lab: [address] [address] HAPTOGLOBIN 95 mg/dL 40-280 Social History: Smoking Status (Most current) and Tobacco Use (All prior to encounter date) This section includes the most current, and the historical, smoking and tobacco- related health factors from the ID facility where the Encounter took place. Current Smoking Status This section includes the most current smoking, or tobacco-related health factor, from the ID facility where the Encounter took place. Date/Time Current Smoking Status Bryanna andrade Jun 19, 2023 10:00 AM TOBACCO FORMER USER MORE [facility] Advance Directives: All historical and current Section Date Range: From patient's date of to the date document was created. This section includes ALL of a patient's completed or amended [place] Advance and Rescinded Directives. The entries below indicate that a directive exists for the patient, but an actual copy is not included with this document. The data comes from all ID facilities. Date Advance Directives Provider Source October 22, 2023 ADVANCE DIRECTIVE DISCUSSION SABINA NAIR [facility] Encounter Notes: All associated encounter notes This section contains the clinical notes associated to the Encounter. Date/Time Encounter Note(s) Provider Source Jan 21, 2024 11:00 AM PASTORAL CARE NOTE : LOCAL TITLE: FUSION JUNCTURE GRINDER NOTE (T) STANDARD TITLE: PASTORAL CARE NOTE DATE OF NOTE: JAN 21, 2024@11:00 ENTRY DATE: JAN 21, 2024@13:27:22 AUTHOR: BLADIMIR VENCES EXP COSIGNER: URGENCY: STATUS: COMPLETED [place] logged into [facility] for individual grief support appointment and was open/receptive. [place] named continued struggles with sleep and headaches. [place] focused on his frustration with his short temper and only resonating with the emotion of anger. identifies parenting as tapping into his anger triggers, leading to feeling self-anger and shame for not being a good parent like Cindy was. reflected on her parenting styles and was receptive to exploring the example she provided him; never before experienced by . [place] named her ability to be curious, adapt to new plans and tactics in parenting, and patience as boss areas he admires. found it difficult but explored moments in his parenting when he senses she might step in her...she might say this...she might do this. [place] was receptive to exploring how his own curiosity and desire to find new tools can serve as significant ways to honor spouse's admirable skills. [place] named feeling sadness and missing spouse; feeling alone and overwhelmed with how to do better as a parent. was resistant to using the word hope but something else...something more than this . Interventions: presence, active listening, reflective questions, grief processing, making space for difficult emotions, anger & sadness, fostering curiosity & hope, encouragement, affirmation, validation, support. Plan: [place] requested appointment by [facility] for 02-06-24 @10am. expressed gratitude. /es/ CHAPLAIN BLADIMIR CARLIN Signed: 01/21/2024 13:[address] [facility]
--- OUTSIDE RECORDS SUMMARY | 2024-01-22 10:00 | XMS_ITS | Encounter Summary ---
Author Name [facility] ([place] Organization [facility] Address [address] [place] [address] Care Team Providers Care Secondary Spanish Teacher Name Role Phone ROSARIO ESCALERA Primary Care Provider [facility] Insurance Providers: All historical and current [...] section includes the information on record at [place] for the Encounter. Date/Time Encounter Type Encounter Description Reason Provider Source Jan 22, 2024 02:00 PM MTMS BY LISA LÓPEZ [facility] ICD-10-CM F43.12 Post-traumatic stress disorder, chronic VALENTINA TENORIO Encounter Template Text not used by [place] Assessments - Encounter Diagnoses This section includes the primary and secondary diagnoses documented for the Encounter. Date/Time Primary/Secondary Diagnosis Diagnosis Name Provider Source Jan 23, 2024 04:24 PM PRIMARY Post-traumatic stress disorder, chronic VALENTINA TENORIO CB Jan 23, 2024 04:24 PM SECONDARY Major depressive disorder, single episode, unspecified VALENTINA TENORIO [facility] Jan 23, 2024 04:24 PM SECONDARY Personality disorder, unspecified WILLBORN,VALENTINA T J DANN [facility] Jan 23, 2024 04:24 PM SECONDARY Primary insomnia VALENTINA TENORIO [facility] Jan 23, 2024 04:24 PM SECONDARY Suicidal ideations VALENTINA TENORIO [facility] Plan of Treatment: Future Appointments (+ 6 months) and Future Tests (+/- 45 days) The Plan of Treatment section includes future care activities for the patient from [facility] [place] [facility] This section includes future appointments and future orders which are active, pending or scheduled. Future Appointments This section includes appointments that were scheduled to occur 6 months from the date of the Encounter, up to a maximum of 20 appointments. The data comes from all [facility]. Appointment Date/Time Appointment Type Appointme nt Facility Name Jan 28, 2024 08:00 AM AMBULATORY - PSYCHIATRY CL [facility] Feb 14, 2024 09:00 AM AMBULATORY - NEUROLOGY [facility] Feb 21, 2024 09:45 AM AMBULATORY - NONE [facility] Feb 21, 2024 10:00 AM AMBULATORY - PSYCHIATRY CL [facility] Feb 26, 2024 03:00 PM AMBULATORY - MEDICINE [facility] Feb 28, 2024 01:00 PM AMBULATORY - NONE [facility] Mar 04, 2024 08:00 AM AMBULATORY - NONE [facility] Mar 14, 2024 10:00 AM AMBULATORY - PSYCHIATRY CL [facility] Mar 19, 2024 10:30 AM AMBULATORY - PSYCHIATRY CL [facility] Mar 21, 2024 01:15 PM AMBULATORY - REHAB MEDICIN E [facility] Mar 27, 2024 11:00 AM AMBULATORY - PSYCHIATRY CL [facility] Apr 01, 2024 01:00 PM AMBULATORY - NONE [facility] Apr 02, 2024 01:00 PM AMBULATORY - PSYCHIATRY CL [facility] Apr 08, 2024 02:00 PM AMBULATORY - PSYCHIATRY CL [facility] Apr 09, 2024 01:30 PM AMBULATORY - REHAB MEDICIN E [facility] Apr 21, 2024 09:30 AM AMBULATORY - PSYCHIATRY CL [facility] Apr 29, 2024 01:30 PM AMBULATORY - PSYCHIATRY [facility] May 02, 2024 02:30 PM AMBULATORY - REHAB MEDICIN E [facility] May 08, 2024 01:00 PM AMBULATORY - NEUROLOGY [facility] May 09, 2024 03:00 PM AMBULATORY - NONE [facility] Lab Results: +/- 30 days of [...] Unit Interpretation Reference Range Specimen Type Comment Feb 21, 2024 09:29 AM [facility] VITAMIN D (TOTAL) SERUM Specimen Type: SERUM No comment entered. Ordering Provider: ROSARIO ESCALERA Report Released Date/Time: Nov 20, 2023 01:30 PM Reporting Lab: [place] [id number] Performing Lab: [place] [id number] VITAMIN D (TOTAL) 13.00 ng/mL L 30.00-75.0 0 Jan 16, 2024 12:00 PM [facility] BASE PANEL (FLOW CYTOMETRY) BLOOD Spe cimen Type: BLOOD No comment entered. Ordering Provider: RUSLAN VILLEGAS Report Released Date/Time: Jan 17, 2024 11:38 AM Reporting Lab: [address] [phone] Performing Lab: [address] [phone] PATHOLOGY REVIEW [facility] FLOW CYTOMETRY COMMENT [facility] Jan 16, 2024 09:50 AM [facility] LEUKEMIA/LYMPHOMA MARKER EVALUATION BLOOD Specimen Type: [...] Jan 08, 2024 03:53 PM Reporting Lab: [address] [phone] Performing Lab: [address] [phone] LEUK/LYMPH COMMENT comment PATHOLOGY REVIEW [facility] Jan 16, 2024 09:50 AM [facility] HAPTOGLOBIN SERUM Specimen Type: SERUM No comment entered. Ordering Provider: ROSARIO ESCALERA Report Released Date/Time: Jan 08, 2024 03:53 PM Reporting Lab: [address] [phone] Performing Lab: [address] [phone] HAPTOGLOBIN 95 mg/dL 40-280 Jan 16, 2024 09:50 AM [facility] LDH PLASMA Specimen Type: PLASMA No comment entered. Ordering Provider: ROSARIO ESCALERA Report Released Date/Time: Jan 08, 2024 03:53 PM Reporting Lab: [address] [phone] Performing Lab: [address] [phone] LDH 285 U/L H 125-220 Social History: Smoking Status (Most current) and Tobacco Use (All prior to encounter date) This section includes the most current, and the historical, smoking and tobacco- related health factors from the [place] facility where the Encounter took place. Current Smoking Status This section includes the most current smoking, or tobacco-related health factor, from the [place] facility where the Encounter took place. Date/Time Current Smoking Status Comment Facil ity May 18, 2023 02:00 PM [place]-TOBACCO FORMER USER [facility] Tobacco Use History This section includes a history of the smoking, or tobacco-related health factors, that were collected on or before the date of the Encounter. The data comes from the [place] facility where the Encounter took place. Date/Time Smoking Status/Tobacco Use Comment F acility May 18, 2023 02:00 PM [place]-TOBACCO QUIT 1 TO < 5 YRS [facility] Advance Directives: All historical and current Section Date Range: From patient's date of to the date document was created. This section includes ALL of a patient's completed or amended [place] Advance and Rescinded Directives. The entries below indicate that a directive exists for the patient, but an actual copy is not included with this document. The data comes from all [place] facilities. Date Advance Directives Provider Source October 22, 2023 ADVANCE DIRECTIVE DISCUSSION SABINA NAIR [facility] Encounter Notes: All associated encounter notes This section contains the clinical notes associated to the Encounter. Date/Time Encounter Note(s) Provider Source Jan 22, 2024 01:09 PM PSYCHIATRY NOTE: LOCAL TITLE: [facility] PSYCHIATRY NOTE (T) STANDARD TITLE: PSYCHIATRY NOTE DATE OF NOTE: JAN 22, 2024@13:09 ENTRY DATE: JAN 22, 2024@13:09:52 AUTHOR: ABAD TENORIO COSIGNER: URGENCY: STATUS: COMPLETED PSYCHIATRIC EVALUATION NOTE Time in: 1358 Time out: 1435 Total time: 37 min AI is a 28yom w/ a [...] in video to home appointment: none CC: my sleep is still s HPI: Marion was last interviewed 12/25/23 where he reported feeling tired today, and discussed having had a migraine yesterday and had to call off work. Amenable to completing appointment. Focusing on treatment with being off work.. trying to take a break from a lot of the stressors I've been worried about, and trying to get out of [place] for a while . CBT-SP engagement continues, with perceptions of ongoing support. His sleep was suffering of late, reportedly limited to a [...] good sleep benefits early on in treatment. Felicity remained on the shelf , without indication for restart. Denied recent SI concerns on prompting, with intermittent passive and intrusive thoughts which he is able to detract from. Amenable to further investment into SNRI medication, with monitoring. [place] seen for [facility] appt as planned. Reported having put an offer in on a house in [place] which was accepted and he is hoping to get into the house around January, pending some additional details for deposit assistance. We actually know the [place]avarria and it was a recent remodel . Feels this has been going smoothly. Medication adherence intact, confirming about 4 weeks of venlafaxine titration trial. No apparent tolerability concerns on review. I've been doing okay, my sleep is still s.. I don't think the medication has done anything since we switched, even with the new dose . Commented on contemplations between adequate trial assessment, titration towards SNRI dosing range, or transition back to sertraline, where sleep influence was more notably positive. Feels he's been exhausted during the day, shortly after awakening, however, by the time it gets to bed, I'm awake and I can't sleep and I'm up until 0300 or whatever . He is unsure how he feels reenergized despite a sleep deficit. I pass out for brief moments during the day.. my brain doesn't want to shut down, I can't get the thoughts to stop long enough to fall asleep.. it's mostly conversations that I have in my head . Denied these as SI content lately or AH. Still trying to figure out a way to express loss and really struggling to figure out the right way, order, in way I should have that conversation . SI hasn't really been present, and that's probably to do with suppressing thoughts and emotions of what happened last year.. I'm really avoiding triggers . Reviewed options for consideration, to include alternative maintenance therapy and sleep aid review. Emphasis on limitations of sedative agents for sleep benefit, and the appropriate use of holidays to retain potency of benefit, should this be realized. Grogginess management further and adjustment considerations relative to dose timing. Reviewed medication management comprehensively with , to include education on options for consideration. Denied SI/HI at present. SUBSTANCE USE HX: Nicotine- vaped nicotine; deferred cessation interest at this time Alcohol- denied Illicit- denied PSYCHIATRIC MEDICATION HISTORY: According to CPRS and JLV remote data of [place] outpatient Rx, the pt has a h/o TRAZODONE (non-VA); ESCITALOPRAM (up to 20mg daily, non-VA); HYDROXYZINE (25mg PRN anxiety, non-VA); SERTRALINE. FLUOXETINE (20mg non-VA); ARIPIPRAZOLE (2mg non-VA). Since engagement with this senior underwriter: SERTRALINE; LITHIUM. ALLERGIES/ADVERSE REACTIONS Type: DRUG Date/Time Reactant Severity [...] ANION GAP:9.0 (12/19/23 09:26) PLASMA BUN: 8 (12/19/23:) PLASMA CA: 9.9 (12/19/23 09:) PLASMA CL: 108 (12/19/23 09:) PLASMA CO2: 25 (12/19/23 09:26) PLASMA CREA: 1.0 (12/19/23:) PLASMA EGFR: 104 (12/19/23 09:26) PLASMA GLUCOSE: 80 (12/19/23 09:) PLASMA K: 4.0 (12/19/23:) PLASMA NA: 138 (12/19/23:) PLASMA ALBUMIN: 4.7 (12/19/23:) PLASMA ALKPHOS: 72 (12/19/23 09:) PLASMA ALT/SGPT: 22 (12/19/23 09:26) PLASMA AST/SGOT: [...] URINE OPIATES NEG Ref: NEG Vitals: T: 97.7 F [36.5 C] (12/27/2023 08:50) P: 60 (12/27/2023 08:50) R: 20 (12/27/2023 08:50) BP: 112/67 (12/27/2023 08:50) W: 182.8 lb [82.92 kg] (12/27/2023 08:50) BMI: 26.3 Mental Status Exam: Kacy: 28yom who appears stated age, dressed in casual attire, brown hair and appiah, orients to interviewer with good eye contact, seated comfortably Level of Consciousness: A&O x4 Psychomotor Activity: normal Speech: regular volume, rate and tone Mood: up and down Affect: restricted w/ some range Behavior: cooperative Thought Process: coherent, goal-directed Thought [...] of violence towards others is considered: low [place] made no comments during our conversation that were concerning and/or would suggest that the is at elevated imminent risk of harm to self or others ASSESSMENT: with PTSD, depressive DO unspecified, and insomnia, engaging in a period of acute bereavement which has worsened preexisting symptoms. Reported baseline concerns for sleep dysregulation in maintenance with restricted duration and subsequent and broad neurovegetative mood symptoms in the setting of loss, irritability, mood sequelae, and edginess. Reporting prior sertraline support largely limited to sleep improvements at initial dosing, despite residuals, with titration yielding questions on benefit over time. Felicity augmentation, at one time viewed as supportive for SI and negative thought content, also in disuse and without indication to resume at present. Alternative trial with tolerability and limited benefit to this point, warranting further assessment to adequate trial duration, which he is in agreement of. Will trial supportive medication for sleep in the interim. PLAN: -> PTSD, depressive DO unspecified: - offered supportive listening and encouraged to optimize both medication and counseling therapies - continue venlafaxine SA 150mg daily - HOLD lithium SA 300mg QHS - trial mirtazapine 7.5mg QHS PRN for sleep -> monitor: mood, sleep, anxiety, SUDHEER -> goals: find something that works -> progress: patient amenable to plan RTC: 4 weeks, sooner PRN. Patient was provided with [...] giving the care. /deanna/ ABAD TENORIO CLINICAL BLEACHING SUPERVISOR Signed: 01/24/2024 07:12 ABAD TENORIO [facility]
--- OUTSIDE RECORDS SUMMARY | 2024-01-28 04:00 | XMS_ITS | Encounter Summary ---
Author Name [facility] [place] Address [address] [place] [address] Care Team Providers Care Automotive Parts Person Name Role Phone ROSARIO ESCALERA Primary Care Provider [facility] Insurance Providers: All historical and current [...] section includes the information on record at [place] for the Encounter. Date/Time Encounter Type Encounter Description Reason Provider Source Jan 28, 2024 08:00 AM PSYTX W PT 30 MINUTES [facility] - IND ICD-10-CM F43.12 Post-traumatic stress disorder, chronic ADDIS CLOUD Encounter Template Text not used by [place] Assessments - Encounter Diagnoses This section includes the primary and secondary diagnoses documented for the Encounter. Date/Time Primary/Secondary Diagnosis Diagnosis Name Provider Source Jan 28, 2024 08:19 AM PRIMARY Post-traumatic stress disorder, chronic ADDIS CLOUD CB Jan 28, 2024 08:19 AM SECONDARY Major depressive disorder, single episode, unspecified ADDIS CLOUD CB Jan 28, 2024 08:19 AM SECONDARY Personality disorder, unspecified ADDIS CLOUD CBIKE Plan of Treatment: Future Appointments (+ 6 months) and Future Tests (+/- 45 days) The Plan of Treatment section includes future care activities for the patient [facility] [place] [facility] This section includes future appointments and future orders which are active, pending or scheduled. Future Appointments This section includes appointments that were scheduled to occur 6 months from the date of the Encounter, up to a maximum of 20 appointments. The data comes from all [place] treatment facilities. Appointment Date/Time Appointment Type Appointme nt Facility Name Feb 14, 2024 09:00 AM AMBULATORY - NEUROLOGY [facility] Feb 21, 2024 09:45 AM [facility] Feb 21, 2024 10:00 AM AMBULATORY - PSYCHIATRY [facility] Feb 26, 2024 03:00 PM AMBULATORY [facility] MEDICINE [facility] Feb 28, 2024 01:00 PM AMBULATORY - NONE [facility] Mar 04, 2024 08:00 AM AMBULATORY - NONE [facility] Mar 14, 2024 10:00 AM AMBULATORY - PSYCHIATRY [facility] Mar 19, 2024 10:30 AM AMBULATORY - PSYCHIATRY CL [facility] Mar 21, 2024 01:15 PM AMBULATORY - REHAB MEDICIN E [facility] Mar 27, 2024 11:00 AM AMBULATORY - PSYCHIATRY CL [facility] Apr 01, 2024 01:00 PM AM[facility]ULATORY - NONE [facility] Apr 02, 2024 01:00 PM AMBULATORY - PSYCHIATRY [facility] Apr 08, 2024 02:00 PM AMBULATORY - PSYCHIATRY CL [facility] Apr 09, 2024 01:30 PM AMBULATORY - REHAB MEDICIN E [facility] Apr 21, 2024 09:30 AM AMBULATORY - PSYCHIATRY CL [facility] Apr 29, 2024 01:30 PM AMBULATORY - PSYCHIATRY CL [facility] May 02, 2024 02:30 PM AMBULATORY - REHAB MEDICIN E [facility] May 08, 2024 01:00 PM AMBULATORY - NEUROLOGY [facility] May 09, 2024 03:00 PM AMBULATORY - NONE [facility] May 09, 2024 03:57 PM AMBULATORY - NONE [facility] Lab Results: +/- 30 days [...] Type Comment Feb 21, 2024 09:29 AM [facility] VITAMIN D (TOTAL) SERUM Specimen Type: SERUM No comment entered. Ordering Provider: ROSARIO ESCALERA Report Released Date/Time: Nov 20, 2023 01:30 PM Reporting Lab: [place] [id number] Performing Lab: [place] [id number] VITAMIN D (TOTAL) 13.00 ng/mL L 30.00-75.0 0 Jan 16, 2024 12:00 PM [facility] BASE PANEL (FLOW CYTOMETRY) BLOOD Spe cimen Type: BLOOD No comment entered. Ordering Provider: RUSLAN VILLEGAS Report Released Date/Time: Jan 17, 2024 11:38 AM Reporting Lab: [address] [address] Performing Lab: [address] [address] PATHOLOGY REVIEW SRCZ FLOW CYTOMETRY COMMENT [facility] Jan 16, 2024 09:50 AM [facility] LEUKEMIA/LYMPHOMA MARKER EVALUATION BLOOD Specimen Type: BLOOD [...] Jan 08, 2024 03:53 PM Reporting Lab: [address] [phone] Performing Lab: [place] [id number] LEUK/LYMPH COMMENT comment PATHOLOGY REVIEW SRCZ Jan 16, 2024 09:50 AM [facility] LDH PLASMA Specimen Type: PLASMA No comment entered. Ordering Provider: ROSARIO ESCALERA Report Released Date/Time: Jan 08, 2024 03:53 PM Reporting Lab: [address] [address] Performing Lab: [address] [address] LDH 285 U/L H 125-220 Jan 16, 2024 09:50 AM [facility] HAPTOGLOBIN SERUM Specimen Type: SERUM No comment entered. Ordering Provider: ROSARIO ESCALERA Report Released Date/Time: Jan 08, 2024 03:53 PM Reporting Lab: [address] [address] Performing Lab: [address] [address] HAPTOGLOBIN 95 mg/dL 40-280 Social History: Smoking Status (Most current) and Tobacco Use (All prior to encounter date) This section includes the most current, and the historical, smoking and tobacco- related health factors from the [place] facility where the Encounter took place. Current Smoking Status This section includes the most current smoking, or tobacco-related health factor, from the [place] facility where the Encounter took place. Date/Time Current Smoking Status Comment Facil ity May 18, 2023 02:00 PM [place]-TOBACCO QUIT 1 TO < 5 YRS [facility] Tobacco Use History This section includes a history of the smoking, or tobacco-related health factors, that were collected on or before the date of the Encounter. The data comes from the [place] facility where the Encounter took place. Date/Time Smoking Status/Tobacco Use Comment F acility May 18, 2023 02:00 PM [place]-TOBACCO QUIT 1 TO < 5 YRS [facility] Advance Directives: All historical and current Section Date Range: From patient's date of to the date document was created. This section includes ALL of a patient's completed or amended [place] Advance and Rescinded Directives. The entries below indicate that a directive exists for the patient, but an actual copy is not included with this document. The data comes from all [place] facilities. Date Advance Directives Provider Source October 22, 2023 ADVANCE DIRECTIVE DISCUSSION SABINA NAIR [facility] Encounter Notes: All associated encounter notes This section contains the clinical notes associated to the Encounter. Date/Time Encounter Note(s) Provider Source Jan 28, 2024 08:02 AM MENTAL HEALTH COUN SELING NOTE: LOCAL TITLE: PSYCHIATRY PSYCHOTHERAPY INDIVIDUAL NOTE (T) STANDARD TITLE: MENTAL HEALTH COUNSELING NOTE DATE OF NOTE: JAN 28, 2024@08:02 ENTRY DATE: JAN 28, 2024@08:02:10 AUTHOR: ADDIS CLOUDIGNER: URGENCY: STATUS: COMPLETED Session Time and Duration: 8:00 am - 8:30 am 30 minutes assessment: 02.09.2023 DIAGNOSIS: PTSD (SC); Insomnia; Depression; Personality D/O, Cluster B traits PATIENT'S STRENGTHS/ABILITIES: Self Identified: I don't know Provider Identified: Active partnership in [employer] PATIENT'S ABILITIES 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 PROGRESS TOWARDS GOAL: Minimal progress clinical reminders due: Clinical Reminders Activity Alcohol Use Screen (AUDIT-C) (Provider): Alcohol Screen: SCREEN FOR ALCOHOL (AUDIT-C) An alcohol screening test (AUDIT-C) was negative (score=1). 1. How often did you have a drink containing alcohol in the past year? Consider a drink to be a 12 ounce can or bottle of regular beer, 8 ounces of malt liquor, a 5 ounce glass of table wine, or a 1.5 ounce shot of liquor (like scotch, gin, or vodka). Monthly or less 2. How many drinks containing alcohol did you have on a typical day when you were drinking in the past year? One or two drinks 3. How often did you have six or more drinks on one occasion in the past year? Never TYPES OF THERAPY: Individual METHOD OF THERAPY: DBT Skills building is 28 y/o male w/100% SC being treated in Specialty for therapy. He presents on time to scheduled in person therapy appt. He provides updates on events since last session. He remains hopeful for purchase of new home (w/friends/present roommates). [place] did follow up w/children's therapists w/being informed his son was too young; he is going to further look into supportive options. They discuss space in which they are connecting and emotional allowance. He consents to proceed w/DBT skills building. feels he is making gains w/[place] Medical Office Technology Instructor appts while reviewing blocking/avoidance that occurs in his grief. He reports this to be a pattern since childhood and c/o of SI when he is overwhelmed by sadness or anger. He demonstrates an understanding of the material reviewed and willingness to work on in between appts. No other needs at this time. He would like to come back weekly. He is calm and stable at the end of the session with no SI/HI noted. INTERVENTIONS: Assessed mental health status and reviewed events since last session. SW assesses SI/HI and ability to remain safe. SW offers emotional support and uses active listening. SW reviews his goals for session & MH therapy. SW offers grief/trauma support. SW reinforces healthy coping strategies w/development of DBT skills; Module I reviewed w/areas assigned in between appts. 'S PARTICIPATION: x Actively participated in discussion x Has a better understanding of therapeutic issues x Understood or demonstrated a new strategy/skill x Willing to practice discussed strategy/skill x Agrees to continue working towards treatment goals PLAN/HOMEWORK: 1. to follow up with this SW for therapy 2. to call clinic/VCL as needed in between sessions 3. medication mgmt. as scheduled 4. [place] to follow Suicide Prevention plan from Mar 23, 2023. 5. [place] assigned Facing your feelings Module I: Understanding Distress intolerance pg. 6-9 MENTAL STATUS EXAM: ORIENTATION AND CONSCIOUSNESS: Alert and attentive, Alert and oriented x 3 APPEARANCE AND BEHAVIOR: Cooperative and reasonable, walks independently; well kempt SPEECH: Normal rate/rhythm LANGUAGE: Intact MOOD AND AFFECT: Mood Depressed, Affect w/range PERCEPTUAL DISTURBANCE (Hallucinations, Illusions): None THOUGHT PROCESS AND ASSOCIATION: Normal, coherent THOUGHT CONTENT (delusions, Obsessions, etc.): No unusual thought content SUICIDAL OR VIOLENT IDEATION: He denies SI/HI now or since last appt. He reports no thoughts of suicide d/t suppression of anything related to his grief. Review of EBP skills and he remains hopeful to r/s missed CBTSP appt. Safety plan developed on Mar. [place] presents as low-intermediate acute and chronic intermediate [...] follow up with the in 1-2 weeks [place] is aware to contact the clinic or the 's Crisis Line with concerns prior to the next scheduled visit. /deanna/ ADDIS CLOUD TEST CONDUCTOR-SUPV CLINICIAL RADIOLOGIC TECHNICIAN Signed: 01/28/2024 10:46 ADDIS CLOUD [facility]
--- OUTSIDE RECORDS SUMMARY | 2024-02-06 06:00 | XMS_ITS ---
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 Date/Time Primary/Secondary Diagnosis Diagnosis Name Provider Source Feb 06, 2024 03:51 PM PRIMARY Spiritual or anabaptist counseling BLADIMIR VENCES [facility] Plan of Treatment: Future Appointments (+ 6 months) and Future Tests (+/- 45 days) The Plan of Treatment section includes future care activities for the patient from all [place] treatmentfacilities. This section includes future appointments and future orders which are active, pending or scheduled. Future Appointments This section includes appointments that were scheduled to occur 6 months from the date of the Encounter, up to a maximum of 20 appointments. The data comes from all [place] treatment facilities. Appointment Date/Time Appointment Type Appointme nt Facility Name Feb 14, 2024 09:00 AM AMBULATORY - NEUROLOGY [facility] Feb 21, 2024 09:45 AM AMBULATORY - NONE [facility] Feb 21, 2024 10:00 AM AMBULATORY - PSYCHIATRY CL [facility] Feb 26, 2024 03:00 PM [facility] Feb 28, 2024 01:00 PM AMBULATORY - NONE [facility] Mar 04, 2024 08:00 AM AMBULATORY - NONE [facility] Mar 14, 2024 10:00 AM AMBULATORY - PSYCHIATRY [facility] Mar 19, 2024 10:30 AM AMBULATORY - PSYCHIATRY [facility] Mar 21, 2024 01:15 PM AMBULATORY - REHAB MEDICIN E [facility] Mar 27, 2024 11:00 AM AMBULATORY - PSYCHIATRY CL [facility] Apr 01, 2024 01:00 PM AMBULATORY - NONE [facility] Apr 02, 2024 01:00 PM AMBULATORY - PSYCHIATRY [facility] Apr 08, 2024 02:00 PM AMBULATORY - PSYCHIATRY [facility] Apr 09, 2024 01:30 PM AMBULATORY - REHAB MEDICIN E [facility] Apr 21, 2024 09:30 AM AMBULATORY - PSYCHIATRY [facility] Apr 29, 2024 01:30 PM AMBULATORY - PSYCHIATRY [facility] May 02, 2024 02:30 PM AMBULATORY - REHAB MEDICIN E [facility] May 08, 2024 01:00 PM AMBULATORY - NEUROLOGY [facility] May 09, 2024 03:00 PM [facility] May 09, 2024 03:57 PM AMBULATORY - NONE [facility] Lab Results: +/- 30 days of the encounter This section includes the Chemistry and Hematology Lab Results on record with [place] for the patient. Radiology Reports and Pathology Reports are provided separately, in subsequent sections. Lab Results This section contains the Chemistry/Hematology Results that were resulted 30 days before or 30 daysafter the date of the Encounter. Date/Time Source Result Type Result - Unit Interpretation Reference Range Specimen Type Comment Feb 21, 2024 09:[address] [facility] VITAMIN D (TOTAL) SERUM Specimen Type: SERUM No comment entered. Ordering Provider: ROSARIO ESCALERA Report Released Date/Time: Nov 20, 2023 01:30 PM Reporting Lab: [address] [address] Performing Lab: [address] [address] VITAMIN D (TOTAL) 13.00 ng/mL L 30.00-75.0 0 Jan 16, 2024 12:[address] [facility] BASE PANEL (FLOW CYTOMETRY) BLOOD Spe cimen Type: BLOOD No comment entered. Ordering Provider: RUSLAN VILLEGAS Report Released Date/Time: Jan 17, 2024 11:38 AM Reporting Lab: [address] [address] Performing Lab: [address] [address] PATHOLOGY REVIEW SRCZ FLOW CYTOMETRY COMMENT [facility] Jan 16, 2024 09:[address] [facility] LEUKEMIA/LYMPHOMA MARKER EVALUATION BLOOD Specimen [...] 08, 2024 03:53 PM Reporting Lab: [address] [address] Performing Lab: [address] [address] LEUK/LYMPH COMMENT comment PATHOLOGY REVIEW SRCZ Jan 16, 2024 09:[address] [facility] HAPTOGLOBIN SERUM Specimen Type: SERUM No comment entered. Ordering Provider: ROSARIO ESCALERA Report Released Date/Time: Jan 08, 2024 03:53 PM Reporting Lab: [address] [address] Performing Lab: [address] [address] HAPTOGLOBIN 95 mg/dL 40-280 Jan 16, 2024 09:[address] [facility] LDH PLASMA Specimen Type: PLASMA No comment entered. Ordering Provider: ROSARIO ESCALERA Report Released Date/Time: Jan 08, 2024 03:53 PM Reporting Lab: [facility] [id number] [place] [id number] Performing Lab: [address] [address] LDH 285 U/L H 125-220 Social History: [...] Date/Time Current Smoking Status Comment Facil ity Jun 19, 2023 10:00 AM TOBACCO FORMER USER [facility] Advance Directives: All historical and current [...] 22, 2023 ADVANCE DIRECTIVE DISCUSSION SABINA NAIR [facility] Radiology Reports: +/- 30 days of the encounter Radiology Reports For cases when an order for radiology services may have been completed prior to the date of the Encounter, the report list includes the Radiology Reports that were completed up to 30 days before dateof the Encounter. For cases when an order for radiology services may have been completed after the date of the Encounter, the report list also includes the Radiology Reports that were completed up to30 days after date of the Encounter. The data comes from all [place] treatment facilities. Date/Time Radiology Report Provider Source Feb 28, 2024 01:00 PM MRI BRAIN W/O CONT RAST: MARION ZHENG [id number] -[id number] M Exm Date: FEB 28, 2024@13:00 Req Phys: KINA IZQUIERDO Loc: [facility] ATTN 10 (Req'g Loc) Img Loc: [facility] MRI Service: [place] [address] (Case [id number] COMPLETE)MRI BRAIN W/O CONTRAST (MRI Detailed) CPT:72479 Reason for Study: migraine Clinical History: 28 yo with progressive chronic daily headache. No history of head imaging. Assess for structural cause. Patient qualifies for outsourcing for distance BUT HAS OPTED TO RECEIVE THIS SERVICE IN [place]. Risks and benefits of the procedure were discussed with the patient. The patient did understand and agree with the treatment plan. [address], [place] [address] Report Status: Verified Date Reported: FEB 28, 2024 Date Verified: FEB 28, 2024 Stone Setter E-Sig:/ES/KULDIP MCELROY Report: MRI BRAIN , 02/28/2024 . Clinical Information : 28 year old male presents with migraine . MRI of the brain for further evaluation . Comparison: None . Procedure : Sagittal , axial T1 weighted images, axial FLAIR, T2 weighted images, gradient recalled echo images and diffusion weighted images of the brain was obtained . No IV contrast was administered . FINDINGS : The supratentorial clemente and white matter are normal . The basal ganglia are normal . The ventricular system is normal . The bilateral cerebellar hemispheres and vermis are normal . Midbrain, roberto and medulla are normal . 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 Midline structures which include the falx, interventricular septum, corpus callosum, infundibulum are normal . Tortuous terminal segments of the vertebral and basilar artery. Remaining intracranial flow voids from the arteries and dural venous sinuses are unremarkable. No restricted diffusion with reduced ADC within the brain parenchyma to suggest acute infarct . No focal hemorrhage . Bilateral orbits with their contents which include the globe, optic nerve, extraocular muscles and retro-orbital fat are normal . Hypertrophy of the right inferior turbinate. Minimal mucosal thickening in the ethmoid air cells. Fluid in bilateral mastoids, left side more than right. Remaining paranasal air sinuses are normal. Prominent soft tissue in the roof of the nasopharynx is adenoid. Impression: No acute intracranial abnormality. 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 Prominent adenoids . Fluid in bilateral mastoids, left side more than right. Minimal mucosal thickening in the ethmoid air cells. Finalized by Erich Mcelroy MD On 02/28/2024 2:31 PM Primary Diagnostic Code: Primary Interpreting Staff: KULDIP MCELROY, RADIOLOGIST (Stone Setter) /[facility] Encounter Notes: All associated encounter notes This section contains the clinical notes associated to the Encounter. Date/Time Encounter Note(s) Provider Source Feb 06, 2024 10:00 AM PASTORAL CARE NOTE : LOCAL TITLE: CLAIMS ADJUSTER SUPERVISOR NOTE (T) STANDARD TITLE: PASTORAL CARE NOTE DATE OF NOTE: FEB 06, 2024@10:00 ENTRY DATE: FEB 06, 2024@15:36:49 AUTHOR: BLADIMIR VENCES COSIGNER: URGENCY: STATUS: COMPLETED [place] logged into [facility] for individual grief support appointment and was open/receptive. [place] explored packing current home in preparation to move to new home (buying process continues). named concern surrounding 's storage unit that sits with all of our old stuff that I have to go through and sort...keep...trash. It's going to be very overwhelming. [place] named what persons/resources would support his process when the time arrives for this task; plan in place. had forgotten to apply or revisit last appointment goal/focus but engaged in his thinking of trying for something more ... missing some kind of connection . [place] named his early reasons for staying vs leaving service based on focus on spouse/family impact. Now that solo-parents, has given himself persmission to both hold no regrets leaving the for [place] while also naming I wish I had considered more of what I truly wanted even though I don't regret our family decision...I'd never 'regret' doing anything for [place]. [place] continues to name a need for purpose, belonging and feeling adrift . 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 [place] wrestled with sense of lack & worthlessness. [place] was resistant to wider thinking about the needs of all service members to connect and support each other through the challenges & struggles (ex. support of those dealing with the challenge of life AFTER active combat). Interventions: presence, active listening, reflective questions, grief processing, exploring expansive thinking, purpose/meaning/value, the internal story vet tells himself about himself, encouragement, affirmation, support. Plan: requested appointment by [facility] for 02-21-24 @11am. [place] expressed gratitude. /deanna/ CHAPLAIN BLADIMIR CARLIN Signed: 02/06/2024 15:52 BLADIMIR VENCES [facility]
--- OUTSIDE RECORDS SUMMARY | 2024-02-07 09:00 | XMS_ITS | Encounter Summary ---
Author Name [facility] [place] [facility] [place] Address [address] [place] [address] Care Team Providers Care Director Call Name Role Phone ROSARIO ESCALERA Primary Care Provider [facility] Insurance Providers: All historical and current [...] section includes the information on record at [place] for the Encounter. Date/Time Encounter Type Encounter Description Reason Pro vider Source Feb 07, 2024 01:00 PM [facility]patient [facility] Encounter Template Text not used by [place] Plan of Treatment: Future Appointments (+ 6 months) and Future Tests (+/- 45 days) The Plan of Treatment section includes future care activities for the patient from all [place] treatmentfacilities. This section includes future appointments and future orders which are active, pending or scheduled. Future Appointments This section includes appointments that were scheduled to occur 6 months from the date of the Encounter, up to a maximum of 20 appointments. The data comes from all [place] treatment facilities. Appointment Date/Time Appointment Type Appointme nt Facility Name Feb 14, 2024 09:00 AM AMBULATORY - NEUROLOGY [facility] Feb 21, 2024 09:45 AM AMBULATORY - NONE [facility] Feb 21, 2024 10:00 AM AMBULATORY - PSYCHIATRY [facility] Feb 26, 2024 03:00 PM AMBULATORY - MEDICINE [facility] Feb 28, 2024 01:00 PM AMBULATORY - NONE [facility] Mar 04, 2024 08:00 AM AMBULATORY - NONE [facility] Mar 14, 2024 10:00 AM AMBULATORY - PSYCHIATRY CL [facility] Mar 19, 2024 10:30 AM AMBULATORY - PSYCHIATRY CL [facility] Mar 21, 2024 01:15 PM AMBULATORY - REHAB MEDICIN E [facility] Mar 27, 2024 11:00 AM AMBULATORY - PSYCHIATRY [facility] Apr 01, 2024 01:00 PM AMBULATORY - NONE [facility] Apr 02, 2024 01:00 PM AMBULATORY - PSYCHIATRY [facility] Apr 08, 2024 02:00 PM AMBULATORY - PSYCHIATRY [facility] Apr 09, 2024 01:30 PM AMBULATORY - REHAB MEDICIN E [facility] Apr 21, 2024 09:30 AM AMBULATORY - PSYCHIATRY CL [facility] Apr 29, 2024 01:30 PM AMBULATORY - PSYCHIATRY CL [facility] May 02, 2024 02:30 PM AMBULATORY - REHAB MEDICIN E [facility] May 08, 2024 01:00 PM AMBULATORY - NEUROLOGY [facility] May 09, 2024 03:00 PM AMBULATORY - NONE [facility] May 09, 2024 03:57 PM AMBULATORY - NONE [facility] Lab Results: +/- 30 days of the encounter This section includes the Chemistry and Hematology Lab Results on record with [place] for the patient. Radiology Reports and Pathology Reports are provided separately, in subsequent sections. Lab Results This section contains the Chemistry/Hematology Results that were resulted 30 days before or 30 daysafter the date of the Encounter. Date/Time Source Result Type Result - Unit Interpretation Reference Range Specimen Type Comment Feb 21, 2024 09:29 AM [facility] VITAMIN D (TOTAL) SERUM Specimen Type: SERUM No comment entered. Ordering Provider: ROSARIO ESCALERA Report Released Date/Time: Nov 20, 2023 01:30 PM Reporting Lab: [facility] [address] [facility] [address] Performing Lab: [facility] [address] [facility] [phone] VITAMIN D (TOTAL) 13.00 ng/mL L 30.00-75.0 0 Jan 16, 2024 12:00 PM [facility] BASE PANEL (FLOW CYTOMETRY) BLOOD Spe cimen Type: BLOOD No comment entered. Ordering Provider: RUSLAN VILLEGAS Report Released Date/Time: Jan 17, 2024 11:38 AM Reporting Lab: [address] [address] Performing Lab: [address] [address] PATHOLOGY REVIEW [facility] FLOW CYTOMETRY COMMENT [facility] Jan 16, 2024 09:50 AM [facility] LEUKEMIA/LYMPHOMA MARKER EVALUATION BLOOD Specimen Type: [...] Jan 08, 2024 03:53 PM Reporting Lab: [address] [address] Performing Lab: [address] [address] LEUK/LYMPH COMMENT comment PATHOLOGY REVIEW [facility] Jan 16, 2024 09:50 AM [facility] LDH PLASMA Specimen Type: PLASMA No comment entered. Ordering Provider: ROSARIO ESCALERA Report Released Date/Time: Jan 08, 2024 03:53 PM Reporting Lab: [address] [address] Performing Lab: [address] [address] LDH 285 U/L H 125-220 Jan 16, 2024 09:50 AM [facility] HAPTOGLOBIN SERUM Specimen Type: SERUM No comment entered. Ordering Provider: ROSARIO ESCALERA Report Released Date/Time: Jan 08, 2024 03:53 PM Reporting Lab: [address] [address] Performing Lab: [place] [phone] HAPTOGLOBIN 95 mg/dL 40-280 Social History: Smoking Status (Most current) and Tobacco Use (All prior to encounter date) This section includes the most current, and the historical, smoking and tobacco- related health factors from the [place] facility where the Encounter took place. Current Smoking Status This section includes the most current smoking, or tobacco-related health factor, from the [place] facility where the Encounter took place. Date/Time Current Smoking Status Comment Facil ity May 18, 2023 02[facility]00 [facility] Tobacco Use History This section includes a history of the smoking, or tobacco-related health factors, that were collected on or before the date of the Encounter. The data comes from the [place] facility where the Encounter took place. Date/Time Smoking Status/Tobacco Use Comment F acility May 18, 2023 02:00 PM [facility] < 5 YRS [facility] Advance Directives: All historical and current Section Date Range: From patient's date of to the date document was created. This section includes ALL of a patient's completed or amended [place] Advance and Rescinded Directives. The entries below indicate that a directive exists for the patient, but an actual copy is not included with this document. The data comes from all [place] facilities. Date Advance Directives Provider Source October 22, 2023 ADVANCE DIRECTIVE DISCUSSION SABINA NAIR [facility] Radiology Reports: +/- 30 days of the [...] the Encounter. The data comes from all [place] treatment facilities. Date/Time Radiology Report Provider Source Feb 28, 2024 01:00 PM MRI BRAIN W/O CONT RAST: MARCEGRACERoxy ALEX [id number] -1995 M Exm Date: FEB 28, 2024@13:00 Req Phys: KINA IZQUIERDO Loc: [facility] ATTN 10 (Req'g Loc) Img Loc: [facility] Service: [place] [address] (Case [id number] COMPLETE)MRI BRAIN W/O CONTRAST (MRI Detailed) CPT:83733 Reason for Study: migraine Clinical History: 28 yo with progressive chronic daily headache. No history of head imaging. Assess for structural cause. Patient qualifies for outsourcing for distance BUT HAS OPTED TO RECEIVE THIS SERVICE IN [place]. Risks and benefits of the procedure were discussed with the patient. The patient did understand and agree with the treatment plan. [address], [place] [address] Report Status: Verified Date Reported: FEB 28, 2024 Date Verified: FEB 28, 2024 [employer] E-Sig:/ES/KULDIP MCELROY Report: MRI BRAIN , 02/28/2024 [...] Code: Primary Interpreting Staff: KULDIP MCELROY, RADIOLOGIST ([employer]) /[facility]
--- OUTSIDE RECORDS SUMMARY | 2024-02-14 05:00 | XMS_ITS | Encounter Summary ---
Author Name [facility] [place] [facility] Address [address] [place] [address] Care Team Providers Care Race And Sports Book Writer Name Role Phone ROSARIO ESCALERA Primary Care Provider [facility] Insurance Providers: All historical and current [...] section includes the information on record at [place] for the Encounter. Date/Time Encounter Type Encounter Description Reason Provider Source Feb 14, 2024 09:00 AM OFFICE O/P [place] 60 MIN NEUROLOGY ICD-10-CM G43.009 Migraine w/o aura, not intractable, w/o status migrainosus KINA IZQUIERDO Sonya Encounter Template Text not used by [place] Assessments - Encounter Diagnoses This section includes the primary and secondary diagnoses documented for the Encounter. Date/Time Primary/Secondary Diagnosis Diagnosis Name Provider Source Feb 15, 2024 03:00 PM PRIMARY Migraine w/o aura, not intractable, w/o status migrainosus KINA IZQUIERDO [facility] Feb 15, 2024 03:00 PM SECONDARY Rash and other nonspecific skin eruption KINA IZQUIERDO [facility] Plan of Treatment: Future Appointments (+ 6 months) and Future Tests (+/- 45 days) The Plan of Treatment section includes future care activities for the patient [facility] [place] [facility] This section includes future appointments and future orders which are active, pending or scheduled. Future Appointments This section includes appointments that were scheduled to occur 6 months from the date of the Encounter, up to a maximum of 20 appointments. The data comes from all [place] treatment facilities. Appointment Date/Time Appointment Type Appointme nt Facility Name Feb 21, 2024 09:45 AM AMBULATORY - NONE [facility] Feb 21, 2024 10:00 AM AMBULATORY - PSYCHIATRY [facility] Feb 26, 2024 03:00 PM AMBULAT[facility] MEDIC[facility] Feb 28, 2024 01:00 PM [facility] Mar 04, 2024 08:00 AM [facility] Mar 14, 2024 10:00 AM AMBULATORY - PSYCHIATRY [facility] Mar 19, 2024 10:30 AM AMBULATORY - PSYCHIATRY [facility] Mar 21, 2024 01:15 PM AMBULATORY - REHAB MEDICIN E [facility] Mar 27, 2024 11:00 AM AMBULATORY - PSYCHIATRY [facility] Apr 01, 2024 01:00 PM AMBULATORY - NONE [facility] Apr 02, 2024 01:00 PM AMBULATORY - PSYCHIATRY [facility] Apr 08, 2024 02:00 PM AMBULATORY - PSYCHIATRY [facility] Apr 09, 2024 01:30 PM AMBULATORY - REHAB MEDICIN E [facility] Apr 21, 2024 09:30 AM AMBULATORY - PSYCHIATRY [facility] Apr 29, 2024 01:30 PM AMBULATORY - PSYCHIATRY [facility] May 02, 2024 02:30 PM AMBULATORY - REHAB MEDICIN E [facility] May 08, 2024 01:00 PM AMBULATORY - NEUROLOGY [facility] May 09, 2024 03:00 PM AMBULATORY - NONE [facility] May 09, 2024 03:57 PM AMBULATORY - NONE [facility] May 12, 2024 10:00 AM AMBULATORY - PSYCHIATRY [facility] Lab Results: +/- 30 days of the encounter This section includes the Chemistry and Hematology Lab Results on record with [place] for the patient. Radiology Reports and Pathology Reports are provided separately, in subsequent sections. Lab Results This section contains the Chemistry/Hematology Results that were resulted 30 days before or 30 daysafter the date of the Encounter. Date/Time Source Result Type Result - Unit Interpretation Reference Range Specimen Type Comment Feb 21, 2024 09:29 AM [facility] VITAMIN D (TOTAL) SERUM Specimen Type: SERUM No comment entered. Ordering Provider: ROSARIO ESCALERA Report Released Date/Time: Nov 20, 2023 01:30 PM Reporting Lab: [address] [address] Performing Lab: [address] [address] VITAMIN D (TOTAL) 13.00 ng/mL L 30.00-75.0 0 Jan 16, 2024 12:00 PM [facility] BASE PANEL (FLOW CYTOMETRY) BLOOD Spe cimen Type: BLOOD No comment entered. Ordering Provider: RUSLAN VILLEGAS Report Released Date/Time: Jan 17, 2024 11:38 AM Reporting Lab: [address] [address] Performing Lab: [address] [id number] PATHOLOGY REVIEW [facility] FLOW CYTOMETRY COMMENT [facility] Jan 16, 2024 09:50 AM [facility] LEUKEMIA/LYMPHOMA MARKER EVALUATION BLOOD Specimen Type: [...] Jan 08, 2024 03:53 PM Reporting Lab: [address] [address] Performing Lab: [address] [address] LEUK/LYMPH COMMENT comment PATHOLOGY REVIEW [facility] Jan 16, 2024 09:50 AM [facility] LDH PLASMA Specimen Type: PLASMA No comment entered. Ordering Provider: ROSARIO ESCALERA Report Released Date/Time: Jan 08, 2024 03:53 PM Reporting Lab: [address] [phone] Performing Lab: [address] [address] LDH 285 U/L H 125-220 Jan 16, 2024 09:50 AM [facility] HAPTOGLOBIN SERUM Specimen Type: SERUM No comment entered. Ordering Provider: ROSARIO ESCALERA Report Released Date/Time: Jan 08, 2024 03:53 PM Reporting Lab: [address] [phone] Performing Lab: [address] [address] HAPTOGLOBIN 95 mg/dL 40-280 Social History: Smoking Status (Most current) and Tobacco Use (All prior to encounter date) This section includes the most current, and the historical, smoking and tobacco- related health factors from the [place] facility where the Encounter took place. Current Smoking Status This section includes the most current smoking, or tobacco-related health factor, from the [place] facility where the Encounter took place. Date/Time Current Smoking Status Comment Lucinda andrade Jun 19, 2023 10:00 AM TOBACCO FORMER USER MORE 12 [facility] Advance Directives: All historical and current Section Date Range: From patient's date of to the date document was created. This section includes ALL of a patient's completed or amended [place] Advance and Rescinded Directives. The entries below indicate that a directive exists for the patient, but an actual copy is not included with this document. The data comes from all [facility]. Date Advance Directives Provider Source October 22, 2023 ADVANCE DIRECTIVE DISCUSSION SABINA NAIR [facility] Radiology Reports: +/- 30 days [...] the Encounter. The data comes from all [place] treatment facilities. Date/Time Radiology Report Provider Source Feb 28, 2024 01:00 PM MRI BRAIN W/O CONT RAST: MARION ZHENG [id number] -[id number] M Exm Date: FEB 28, 2024@13:00 Req Phys: FELECIA,KINA Mila Loc: [facility] NEURO ATTN 10 (Req'g Loc) Img Loc: [facility] MRI Service: [place] [address] (Case [id number] COMPLETE)MRI BRAIN W/O CONTRAST (MRI Detailed) CPT:22492 Reason for Study: migraine Clinical History: 28 yo with progressive chronic daily headache. No history of head imaging. Assess for structural cause. Patient qualifies for outsourcing for distance BUT HAS OPTED TO RECEIVE THIS SERVICE IN [place]. Risks and benefits of the procedure were discussed with the patient. The patient did understand and agree with the treatment plan. [facility] [place] [id number] Report Status: Verified Date Reported: FEB 28, 2024 Date Verified: FEB 28, 2024 Product Safety Tester E-Sig:/ES/KULDIP MCELROY Report: MRI BRAIN , 02/28/2024 [...] Code: Primary Interpreting Staff: KULDIP MCELROY, RADIOLOGIST (Product Safety Tester) /KULDIP [facility] Encounter Notes: All associated encounter notes This section contains the clinical notes associated to the Encounter. Date/Time Encounter Note(s) Provider Source Feb 14, 2024 09:04 AM NEUROLOGY CONSULT: LOCAL TITLE: NEUROLOGY CONSULTATION (C) STANDARD TITLE: NEUROLOGY CONSULT DATE OF NOTE: FEB 14, 2024@09:04 ENTRY DATE: FEB 14, 2024@09:04:18 AUTHOR: KINA IZQUIERDO COSIGNER: URGENCY: STATUS: COMPLETED NEUROLOGY CONSULTATION (C) Has ADDENDA I am the attending physician. CC <why are you here in Neurology today?>: ~ here for headaches HPI: 28 yo RH man, referred from primary care 12/27/23 with the following question: HAS CHRONIC HEADACHE - STATES NEVER GOES AWAY - WILL GET MIGRAINES ASSOCIATED WITH PHOTOPHOBIA - NO AURA - HAS HS OF CERVICAL DISC DX PCP note from the day the consult was placed doesn't provide any additional information regarding headaches. He was also c/o tingling in R UE, subsequently reported a hx of seeing pain management for his neck and was subsequently also referred to pain management for that problem. Patient currently has multiple service connections touching on Neurology. 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 Text searches ( migrain headache ) retrieved the following potentially relevant items: 04/26/23 Psych: Reported that when he misses a dose of lithium, he has a severe migraine the following day. 05/18/23 primary care: Has daily headaches, occasionally migrainous. Reports the tingling of digits 3-5 in R hand, also c/o tinnitus 10/23/23 Sleep: evaluation for question of sleep apnea. Reported daily continuous headache, not just waking headache. Subsequent 12/04/23 Sleep report indicates a solidly negative study for sleep apnea. <end text search> Patient has no additional notes available through remote records function. Among his 42 community reports in [facility], I found a reference to a Neurology appointment at [facility] 08/15/22, but there are no associated data. Today patient presented unaccompanied. He confirms that he's never been evaluated for headaches before by a neurologist, and has never had brain imaging for headaches. He basically dates his headache problem to his service. He recalls that prior to service he may have had rare headaches, only when sick. During service he began having frequent headaches, but they were manageable with OTC analgesics. Since getting out of the they have worsened progressively, and OTC medication no longer helps. He has three headache types: 1) standard headache : This is a frontal circlet, that when bad, expands to involve temples and then entire head. This headaches is steady, dull, and of relatively mild severity such that he can continue all his activities. The headache is present continuously; he is never free of this headache. 2) migraine : This represents an episodic increase above and beyond his continuous standard headache. It starts at bilateral temples and spreads to a large circumferential circlet, focused more toward the back of head. Pain is steady. (Initially he ndorsed pulsating, but that turned out to mean it waxes and wanes in waves of severity over minutes. Pain is sharp. Duration is hours. Current frequency is once/month. There is probably no aura. (He initially responded that he wasn't sure about the various aura symptoms I queried, but if he had these, he would likely be sure.) There is associated +photophobia, phonophobia, +nausea without vomiting. He's never been told by witnesses of ptosis, conjunctival injection. He denies rhinorrea. Pain is incapacitating. Any motion hurts. He would not be able to drive himself home should it ever occur at work (hasn't yet). He would even avoid getting up from bed to toilet. He tries to lie still in a dark room. No identified triggers, including stress (but he notes that his PTSD stress is unremitting, so he can't be sure stress isn't a trigger). Only alleviation is lying in a dark room. On occasion he's tried ibuprofen up 2000 mg, acetaminophen up to 1600 mg, taken at outset of the headache, without benefit. 3) sinus : Mid-frontal, sharp, pulsating pain. It is heralded by a period of congestion (days) and associated with post-nasal drip. Duration is 1-2 days. My rough notes lack any comment re frequency. Headache risks: >>snoring/sleep apnea: This was recently excluded by a HSAT >>tooth grinding/jaw disease: Denies. Specifically denies jaw soreness, or being told by his dentist he has grinding damage >>babyhood colic/fussy baby: deferred >>susceptibility to motion sickness, including in childhood: Affirms. As a kid he had car sickness, although he could tolerate any amusement park ride, including particularly nauseogenic spinning rides. No car sickness now, even when reading his phone, but will get sea sickness. >>interval (between headaches) photophobia deferred >>Fhx migraine: He initially said he can't say anything about his family, since he has been estranged from them since he went into the at age 17. When pressed, he recalled that his mother WOULD c/o headache and would seclude herself in a dark room. Then he recalled a sister had headaches. His 1st-degree pedigree is: no brothers 2 full sisters - oldest sister has headaches son, age 3. Not aware of any pediatric migraine >>caffeine intake: 200-400 mg (pop, coffee, but denies energy drinks). I quickly educated him re the usual recommendation to limit caffeine to 200 mg/day in migraineurs. This seemed like new information to him, but in retrospect I suspect he's had it before, since it is rare for a patient, when asked about caffeine, to answer with his intake in mg. >>analgesic intake, all types: Denies. He reports he hasn't taken acetaminophen or ibuprofen for a couple of months. I briefly educated him on the concept of medication overuse headache (MOH), observing that fortunately we don't have to worry about that in him at this time. >>prior abortives: as above. Has never received a triptan >>prior prophylactics: never ACTIVE PROBLEM Exposure to potentially hazardous 10/10/2023 substance ([facility] [id number]) H/O splenectomy 06/23/2023 Hereditary spherocytosis 05/21/2023 Depression 04/13/2023 Chronic post-traumatic stress disorder 02/09/2023 Insomnia 02/09/2023 Suicidal thoughts 09/10/2023 Personality disorder 09/10/2023 MEDICATION RECONCILIATION Patient/Caregiver unable to participate in medication reconciliation at this time. Active Outpatient Medications (reviewed at least drug names with patient): Active Outpatient Medications Status 1) ATORVASTATIN CALCIUM 10MG TAB TAKE ONE TABLET BY ACTIVE MOUTH EVERY DAY 2) CHOLECALCIF 25MCG (D3-1,000UNIT) TAB TAKE THREE ACTIVE TABLETS BY MOUTH EVERY DAY FOR VITAMIN D DEFICIENCY 3) FLUTICASONE PROP 50MCG 120D NASAL INHL USE 2 SPRAYS ACTIVE IN EACH NOSTRIL EVERY DAY NASAL CONGESTION 4) LITHIUM CARBONATE 300MG SA TAB TAKE ONE TABLET BY ACTIVE MOUTH AT BEDTIME FOR MOOD 5) MIRTAZAPINE 15MG TAB TAKE ONE-HALF TABLET BY MOUTH AT ACTIVE BEDTIME 6) VENLAFAXINE HCL 75MG 24HR SA CAP TAKE TWO CAPSULES BY ACTIVE MOUTH EVERY DAY Other non-VA prescriptions: no Other regular OTCs: claritin herbals/potions: no Allergies/ADR: MORPHINE, HYDROMORPHONE, OXYCODONE O/E: <nurses don't appear to have taken vitals today; only noted the dates of the vitals I brought in through the template as I was editing note post-encounter> Vitals: T: 97.7 F [36.5 C] (12/27/2023 08:50) P: 60 (12/27/2023 08:50) R: 20 (12/27/2023 08:50) BP: 112/67 (12/27/2023 08:50) W: 182.8 lb [82.92 kg] (12/27/2023 08:50) BMI: 26.3 Misc/Gen: wd, wn man, appears stated age or slightly older. + mild psychomotor agitation. When he discusses his headache, he appears to hyperventilate slightly. He is audibly breathing through his nose, snorting and c/o a bout of his typical congestion. Also frequently sighs. States he tested COVID negative today. His skin is covered (lightly) by small (~3mm) reddish-brown macules. I initially found these in L anticubital fossa as I was doing biceps jerk. After declothing to extend his cervical root examination, I saw these were fairly diffuse across his back. Patient is aware of these, says they are new, attributing them to having just moved into a new house that is very hot (some sort of ventilation issue). I don't think they are the distribution of measles. He states he is vaccinated against everything except COVID. He had previously stated that his congestion is a typical episodic problem. Has 2 ksjv-nz-kaug-like spots in R inferior pectoral region. no periungual fibromas x20 nailbeds MeS: grossly intact CN: vfic, perrl dics flat, +spont venous pulsations, well visualized eom full-range, no gaze-evoked nystagmus ok saccade metrics and dyanmics (V/H) ok hSP symmetrical facial sensation and jaw strength symmetrical face at rest, with symmetrical activation Storey lateralizes to L Rine B>A bilaterally Elevated detection threshold to finger rub bilaterally; reports that he feels his L ear is congested palate up/up tongue midline MOTOR: no arm orbiting or drift power 5/5 (powerfully so) in trap, delt, bi, tri, gsp, 1stdi, adm, hflx, kflx, kext, ta, gst no asterixis (performed after I saw the H>S performance) no UE/pectoral girdle fasciculations (assessment prompted by the dropped R biceps jerk) COORD: F>N: absent from my rough notes H>S: symmetrical, low-amplitude bquz-zw-dbuh oscillations. This could be tremor related to his lithium rather than true ataxia. Romberg negative gait normal tandem okay, achieved with minimal elevation of arms (~15deg) hops on either foot SENSORY: lt (tissue whisp detection) intact in all extremities (proximal/distal in UE, distal in LE) vib: R L index 18 20s gtoe 12 13 REFLEXES: R L bi 1->1R 2- tri 3 3 knee 2+ 3-* *high amp, yet can't evoke from above knee ankle 3 3 toes bal bal bal=balanced activation, a mildly abnormal result opp nr nr ASSESSMENT: I. Chronic daily headache: Exam suggests this isn't due to structural causes, although the finding of possible xohj-di-axxg spots is intriguing and statistically increases the possibility of positive imaging. The sinus headaches probably reflect pain secondary to sinus inflammation rather than sinus inflammation secondary to migraine, since he has quite a bit of headache without the prominent nasal secretions. I can't exclude, however, that this is simply another form of his migraine, with a prominent trigeminal autonomic effect. With regard to treatment, although conceivably one could try a triptan to address specifically the migrainous spikes, that wouldn't address the chronic daily headache, which is troublesome to him, and it's possible that if we erase the chronic daily headache that will also improve the episodic migrainous spikes. He's already on venlafaxine at 150 mg/day. Typical range for migraine prophylaxis is 75-225mg so in theory he could go up another 75mg in the hopes his existing venlafaxine could be his migraine prophylaxis, but I'm skeptical the additional 75 mg will make the difference. Additionally, venalafaxine can worsen headaches in some people, and thus it's possible that the venlafaxine, which was started in October 2023, has played a role in his worsening headache. My preference would be for valproic acid (shouldn't worsen mood), followed by topiramate (with monitoring of Li levels), followed by propranolol. A tricyclic antidepressant would be a problem due to his being on venlafaxine. As the selection has potential impacts on patient's psych issues, I will touch base with psych provider pharmacist ABAD TENORIO before making a selection. I also discussed with patient seeing Behavioral Medicine. Since he describes continuous PTSD stress, this could be a factor in his migraines and we should initiate some non-pharmacological interventions early on, to maximize our chances of successful pharmacologic prophylaxis. Patient is amenable to seeing Behavioral Medicine. II. Rash: I encouraged patient to reach out to his PCP if this rash doesn't resolve promptly (as it should if it is related to heat, as the patient believes). PLAN: 1) Will initiate migraine prophylaxis after coodinating with psych provider 2) consult to Behavioral Medicine as discussed above. 3) MRI brain. He's eligible for outsourcing for distance, but after discussing the issues associated with that including that he would need to obtain the images and convey them to me, he opts to have it done in [place]. 4) defer a headache diary because at this point he has daily headache. Will start a diary once we've converted it (hopefully) to episodic. 5) RTC 3 months I'm adding psych provider ABAD TENORIO as an additional signer (also emailed) to call his attention to above question regarding migraine prophylaxis. CODING DIAGNOSES: migraine without aura, not intractable, without status migrainosus rash and other nonspecific skin eruption TOTAL TIME SPENT: Spent 182 minutes in care of this patient today including review of records, exam, and placing orders. Time spent breakdown: Pre-encounter chart review, image review, visit plannin' f2f: 61' orders, note completion: 104' /deanna/ KINA IZQUIERDO NEUROLOGIST Signed: 02/15/2024 15:15 Receipt Acknowledged By: 02/15/2024 15:38 /deanna/ ABAD TENORIO CLINICAL CONSUMER LOAN OFFICER 02/28/2024 ADDENDUM STATUS: COMPLETED Update: MRI brain 02/28/24 (read by Kuldip): FINDINGS : The supratentorial clemente and white [...] mucosal thickening in the ethmoid air cells. Images reviewed in directed fashion. No clear structural cause of headache. The mastoid fluid is intriguing but it seems a poor match to the focality of the patient's headaches. 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 I did correspond with patients mental health provider. He agreed that it was unlikely a further escalation of venlafaxine would resolve the headaches, and alerted me that in any case patient was contemplating switching back to sertraline. He had no reservations regarding depakote or topiramate. Telephoned patient, updated him on the above. I explained the likely non- significance of the fenetrated diaphram sellae. Discussed my discussion with pharmacist ABAD TENORIO and my recommendation for Depakote. Discussed again the risks/benefits. Patient is amenable to this agent. Will start at 500 mg hs and await next visit to escalate to minimize chances of ADR from rapid escalation. Patient verbalized understanding. He has my number for questions. We verified that his mailing address is the new address. /deanna/ KINA IZQUIERDO NEUROLOGIST Signed: 02/28/2024 17:33 03/19/2024 ADDENDUM STATUS: COMPLETED Update: Behavioral Medicine consult appreciated. He is to see them again, but appeared pessimistic about what they had to offer and was not felt to be highly motivated to execute on their recommendations. /deanna/ KINA IZQUIERDO NEUROLOGIST Signed: 03/19/2024 18:14 KINA IZQUIERDO [facility]
--- OUTSIDE RECORDS SUMMARY | 2024-02-21 06:00 | XMS_ITS | Encounter Summary ---
Author Name [facility] [place] Organization [facility] [place] Address [address] [place] [address] Care Team Providers Care Clinical Nursing Professor Name Role Phone ROSARIO ESCALERA Primary Care Provider [facility] Insurance Providers: All historical and current [...] section includes the information on record at [place] for the Encounter. Date/Time Encounter Type Encounter Description Reason Provider Source Feb 21, 2024 10:00 AM MTMS BY LISA LÓPEZ [facility] ICD-10-CM F43.12 Post-traumatic stress disorder, chronic VALENTINA TENORIO Encounter Template Text not used by [place] Assessments - Encounter Diagnoses This section includes the primary and secondary diagnoses documented for the Encounter. Date/Time Primary/Secondary Diagnosis Diagnosis Name Provider Source Feb 21, 2024 04:57 PM PRIMARY Post-traumatic stress disorder, chronic VALENTINA TENORIO [facility] Feb 21, 2024 04:57 PM SECONDARY Major depressive disorder, single episode, unspecified VALENTINA TENORIO [facility] Feb 21, 2024 04:57 PM SECONDARY Personality disorder, unspecified WILLBORN,VALENTINA T J DANN [facility] Feb 21, 2024 04:57 PM SECONDARY Primary insomnia VALENTINA TENORIO [facility] Feb 21, 2024 04:57 PM SECONDARY Suicidal ideations VALENTINA TENORIO [facility] Plan of Treatment: Future Appointments (+ 6 months) and Future Tests (+/- 45 days) The Plan of Treatment section includes future care activities for the [facility] [place] [facility] This section includes future appointments and future orders which are active, pending or scheduled. Future Appointments This section includes appointments that were scheduled to occur 6 months from the date of the Encounter, up to a maximum of 20 appointments. The data comes from all [facility]. Appointment Date/Time Appointment Type Appointme nt Facility Name Feb 26, 2024 03:00 PM [facility] Feb 28, 2024 01:00 PM AMBULATORY - NONE [facility] Mar 04, 2024 08:00 AM AMBULATORY - NONE [facility] Mar 14, 2024 10:00 AM AMBULATORY - PSYCHIATRY [facility] Mar 19, 2024 10:30 AM AMBULATORY - PSYCHIATRY [facility] Mar 21, 2024 01:15 PM AMBULATORY - REHAB MEDICIN E [facility] Mar 27, 2024 11:00 AM AMBULATORY - PSYCHIATRY [facility] Apr 01, 2024 01:00 PM AMBULATORY - NONE [facility] Apr 02, 2024 01:00 PM AMBULATORY - PSYCHIATRY [facility] Apr 08, 2024 02:00 PM AMBULATORY - PSYCHIATRY [facility] Apr 09, 2024 01:30 PM AMBULATORY - REHAB MEDICIN E [facility] Apr 21, 2024 09:30 AM AMBULATORY - PSYCHIATRY [facility] Apr 29, 2024 01:30 PM AMBULATORY - PSYCHIATRY [facility] May 02, 2024 02:30 PM AMBULATORY - REHAB MEDICIN E [facility] May 08, 2024 01:00 PM AMBULATORY - NEUROLOGY [facility] May 09, 2024 03:00 PM [facility] May 09, 2024 03:57 PM AMBULATORY - NONE [facility] May 12, 2024 10:00 AM AMBULATORY - PSYCHIATRY [facility] May 14, 2024 10:30 AM AMBULATORY [facility]ATRY [facility] May 26, 2024 01:00 PM AMBULATORY - PSYCHIATRY [facility] Lab Results: +/- 30 days of the encounter This section includes the Chemistry and Hematology Lab Results on record with [place] for the patient. Radiology Reports and Pathology Reports are provided separately, in subsequent sections. Lab Results This section contains the Chemistry/Hematology Results that were resulted 30 days before or 30 daysafter the date of the Encounter. Date/Time Source Result Type Result - Unit Interpretation Reference Range Specimen Type Comment Feb 21, 2024 09:29 AM [facility] VITAMIN D (TOTAL) SERUM Specimen Type: SERUM No comment entered. Ordering Provider: ROSARIO ESCALERA Report Released Date/Time: Nov 20, 2023 01:30 PM Reporting Lab: [address] [id number] Performing Lab: [address] [id number] VITAMIN D (TOTAL) 13.00 ng/mL L 30.00-75.0 0 Social History: Smoking Status (Most current) and Tobacco Use (All prior to encounter date) This section includes the most current, and the historical, smoking and tobacco- related health factors from the [place] facility where the Encounter took place. Current Smoking Status This section includes the most current smoking, or tobacco-related health factor, from the [place] facility where the Encounter took place. Date/Time Current Smoking Status Comment Facil ity May 18, 2023 02:00 PM VA-TOBACCO FORMER USER DANN [facility] Tobacco Use History This section includes a history of the smoking, or tobacco-related health factors, that were collected on or before the date of the Encounter. The data comes from the [place] facility where the Encounter took place. Date/Time Smoking Status/Tobacco Use Comment F acility May 18, 2023 02:00 PM VA-TOBACCO QUIT 1 TO < 5 YRS [facility] Advance Directives: All historical and current Section Date Range: From patient's date of to the date document was created. This section includes ALL of a patient's completed or amended [place] Advance and Rescinded Directives. The entries below indicate that a directive exists for the patient, but an actual copy is not included with this document. The data comes from all [place] facilities. Date Advance Directives Provider Source October 22, 2023 ADVANCE DIRECTIVE DISCUSSION SABINA NAIR [facility] Radiology Reports: +/- 30 days of [...] the Encounter. The data comes from all [place] treatment facilities. Date/Time Radiology Report Provider Source Feb 28, 2024 01:00 PM MRI BRAIN W/O CONT RAST: MARION ZHENG [id number] -1995 M Exm Date: FEB 28, 2024@13:00 Req Phys: KINA IZQUIERDO Loc: [facility] NEURO ATTN 10 (Req'g Loc) Img Loc: [place] [place] MRI Service: [place] [address] (Case [id number] COMPLETE)MRI BRAIN W/O CONTRAST (MRI Detailed) CPT:16663 Reason for Study: migraine Clinical History: 28 yo with progressive chronic daily headache. No history of head imaging. Assess for structural cause. Patient qualifies for outsourcing for distance BUT HAS OPTED TO RECEIVE THIS SERVICE IN [place]. Risks and benefits of the procedure were discussed with the patient. The patient did understand and agree with the treatment plan. [address], [place] [address] Report Status: Verified Date Reported: FEB 28, 2024 Date Verified: FEB 28, 2024 [employer] E-Sig:/ES/KULDIP MCELROY Report: MRI BRAIN , 02/28/2024 [...] Code: Primary Interpreting Staff: KULDIP MCELROY, RADIOLOGIST ([employer]) /KULDIP WHIT[facility]ER [facility] Encounter Notes: All associated encounter notes This section contains the clinical notes associated to the Encounter. Date/Time Encounter Note(s) Provider Source Feb 21, 2024 09:53 AM PSYCHIATRY NOTE: LOCAL TITLE: [facility] PSYCHIATRY NOTE (T) STANDARD TITLE: PSYCHIATRY NOTE DATE OF NOTE: FEB 21, 2024@09:53 ENTRY DATE: FEB 21, 2024@09:53:27 AUTHOR: ABAD TENORIO COSIGNER: URGENCY: STATUS: COMPLETED PSYCHIATRIC EVALUATION NOTE Time in: 951 Time out: 1023 Total time: 31 min AI is a 28yom w/ a [...] in video to home appointment: none CC: grief HPI: Marion was last interviewed 01/22/24 where he reported medication adherence. Commented on contemplations between adequate trial assessment, titration towards SNRI dosing range, or transition back to sertraline, where sleep influence was more notably positive. Reviewed options for consideration, to include alternative maintenance therapy and sleep aid review. Emphasis on limitations of sedative agents for sleep benefit, and the appropriate use of holidays to retain potency of benefit, should this be realized. Grogginess management further and adjustment considerations relative to dose timing. Reviewed medication management comprehensively with , where he resolved to trial mirtazapine. Galva seen for [facility] appt as planned. Reported having moved into their new home, which has been good. They are getting acclimated after the recent move; neighborhood is fairly quiet. Not so many enjoyable engagements this summer, between jumping in and out of work and dealing with all the things I have going on . Remains productively engaged and attending appointments. Discussed his neurology engagement and plans stemming from this. Mirtazapine associated with some increase in sleep quality. Clarified in the process of moving, I have slipped off medications with everything else going on . Denied noticing SNRI disuse during this period. I didn't see much of a mood benefit I guess, going through these past few months with it.. I was still prone to mood swings, depending on what was going on. I noticed I was more stable on sertraline than current medication.. as far as sleep goes, I'm starting to see some more, with the mirtazapine . Some improvements to latency and maintenance. Around 6 hours give or take. Waking up kind of tired, but not as bad . Minimal changes since SNRI hold and want to pursue sertraline retrial at this time. Irritability remains lower , associated with being off work. Anxiety remains notable, being put on edge when in public; when I'm at home, I'm for the most part okay . Putting a lot of effort in avoidance of grief, it's the fact the I'm progressing in life without her . Tearful in review of grief. 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 We resolved to retrial sertraline 50mg daily and he will start using his home-supply. Wedding in [place] end of month. Denied SI/HI at present. SUBSTANCE USE HX: Nicotine- vaped nicotine; deferred cessation interest at this time Alcohol- denied Illicit- denied PSYCHIATRIC MEDICATION HISTORY: According to CPRS and JLV remote data of [place] outpatient Rx, the pt has a h/o TRAZODONE (non-VA); ESCITALOPRAM (up to 20mg daily, non-VA); HYDROXYZINE (25mg PRN anxiety, non-VA); SERTRALINE. FLUOXETINE (20mg non-VA); ARIPIPRAZOLE (2mg non-VA). 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 ALLERGIES/ADVERSE REACTIONS Type: DRUG Date/Time [...] GLUCOSE: 80 (12/19/23 09:26) PLASMA K: 4.0 (07/03/24 09:26) PLASMA NA: 138 (12/19/23 09:26) PLASMA [...] URINE OPIATES NEG Ref: NEG Vitals: T: 97.8 F [36.6 C] (02/21/2024 09:36) P: 90 (02/21/2024 09:36) R: 16 (02/21/2024 09:36) BP: 132/82 (02/21/2024 09:36) W: 182 lb [82.55 kg] (02/21/2024 09:36) BMI: 26.2 Mental Status Exam: Kacy: 28yom who appears stated age, dressed in casual attire, brown hair and appiah, orients to interviewer with good eye contact, seated comfortably Level of Consciousness: A&O x4 Psychomotor Activity: normal Speech: regular volume, rate and tone Mood: stressed Affect: restricted w/ some range Behavior: cooperative [...] of violence towards others is considered: low made no comments during our conversation that were concerning and/or would suggest that the is at elevated imminent risk of harm to self or others ASSESSMENT: Galva with PTSD, depressive DO unspecified, and insomnia, [...] titration yielding questions on benefit over time. [place] augmentation, at one time viewed as supportive for SI and negative thought content, also in disuse and without indication to resume at present. Requesting sertraline retiral, which we will pursue. PLAN: -> PTSD, depressive DO unspecified: - offered supportive listening and encouraged to optimize both medication and counseling therapies - DC venlafaxine - retrial sertraline 50mg daily - continue mirtazapine 7.5mg QHS PRN for sleep -> [...] giving the care. /deanna/ ABAD TENORIO CLINICAL COMMUNITY RELATIONS SPECIALIST Signed: 02/21/2024 16:57 ABAD TENORIO CB Feb 21, 2024 09:40 AM PRIMARY CARE NURSI DENZEL NOTE: LOCAL TITLE: OUTPATIENT NURSING INTAKE NOTE (T) STANDARD TITLE: PRIMARY CARE NURSING NOTE DATE OF NOTE: FEB 21, 2024@09:40 ENTRY DATE: FEB 21, 2024@09:40:55 AUTHOR: BLANK MENG COSIGNER: URGENCY: STATUS: COMPLETED Hemoglobin A1C Results: No Hemoglobin A1C Results Review Allergies Allergies reviewed and updated per protocol. ALLERGIES/ADVERSE REACTIONS Type: DRUG Date/Time Reactant Severity Reaction 02/15/2023 16:29 HYDROMORPHONE URTICARIA 02/15/2023 16:29 OXYCODONE NAUSEA AND VOMITING 02/15/2023 16:28 MORPHINE ANAPHYLAXIS MEDICATION LIST REVIEW REPORT Patient states no change in documented OTC/Herbals at this visit. 1. Has the patient been feeling sad or distressed? No 2. Has the patient been having personal or family problems? No 3. Has the patient been experiencing worry and/or stress? No 4. Has the patient been having problems with drugs and/or alcohol? No 5. Crisis Line pocket card was provided to patient. No/patient declined Last [facility] MAP (Gal[facility] [place] [place]): 12/27/2023 Personal Health Plan [place], [place], [employer] (MAP) pain management Clinical Reminders Activity Patient Education Documentation: LEARNING NEEDS ASSESSMENT: The patient/family/significant other reports no changes in learning needs. /deanna/ BLANK MENG LICENSED PRACTICAL NURSE Signed: 02/21/2024 09:41 BLANK MENG OC
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
--- OUTSIDE RECORDS SUMMARY | 2024-03-04 04:00 | XMS_ITS | Encounter Summary ---
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 Date/Time Encounter Type Encounter Description Reason Provider Source Mar 04, 2024 08:00 AM OFFICE O/P NEW MOD 45 MIN PAIN CLINIC ICD-10-CM M54.12 Radiculopathy, cervical region AVNI BARRON Sonya Encounter Template Text not used by [place] Assessments - Encounter Diagnoses This section includes the primary and secondary diagnoses documented for the Encounter. Date/Time Primary/Secondary Diagnosis Diagnosis Name Provider Source Mar 04, 2024 09:02 AM PRIMARY Radiculopathy, cervical region GAUTAM BARRON [facility] Mar 04, 2024 09:02 AM SECONDARY Hereditary spherocytosis GAUTAM BARRON [facility] Mar 04, 2024 09:02 AM SECONDARY Other cervical disc displacement, unsp cervical region GAUTAM BARRON [facility] Mar 04, 2024 09:02 AM SECONDARY Other intervertebral disc displacement, lumbar region GAUTAM BARRON [facility] Mar 04, 2024 09:02 AM SECONDARY Other spondylosis, cervical region MandieUMBGAUTAM BUTT [facility] Mar 04, 2024 09:02 AM SECONDARY Other spondylosis, lumbosacral region GAUTAM BARRON [facility] Mar 04, 2024 09:02 AM SECONDARY Post-traumatic stress disorder, chronic GAUTAM BARRON [facility] Plan of Treatment: Future Appointments (+ 6 months) and Future Tests (+/- 45 days) The Plan of Treatment section includes future care activities for the patient from all [facility]. This section includes future appointments and future orders which are active, pending or scheduled. Future Appointments This section includes appointments that were scheduled to occur 6 months from the date of the Encounter, up to a maximum of 20 appointments. The data comes from all [facility]. Appointment Date/Time Appointment Type Appointme nt Facility Name Mar 14, 2024 10:00 AM AMBULATORY - PSYCHIATRY [facility] Mar 19, 2024 10:30 AM AMBULATORY - PSYCHIATRY [facility] Mar 21, 2024 01:15 PM AMBULATORY - REHAB MEDICIN [facility] Mar 27, 2024 11:00 AM AMBULATORY - PSYCHIATRY [facility] Apr 01, 2024 01:00 PM AMBULATORY - NONE [facility] Apr 02, 2024 01:00 PM AMBULATORY - PSYCHIATRY [facility] Apr 08, 2024 02:00 PM AMBULATORY - PSYCHIATRY [facility] Apr 09, 2024 01:30 PM AMBULATORY - REHAB MEDICIN E [facility] Apr 21, 2024 09:30 AM AMBULATORY - PSYCHIATRY [facility] Apr 29, 2024 01:30 PM AMBULATORY - PSYCHIATRY [facility] May 02, 2024 02:30 PM AMBULATORY - REHAB MEDICIN E [facility] May 08, 2024 01:00 PM AMBULATORY - NEUROLOGY [facility] May 09, 2024 03:00 PM AMBULATORY - NONE [facility] May 09, 2024 03:57 PM AMBULATORY - NONE [facility] May 12, 2024 10:00 AM AMBULATORY - PSYCHIATRY [facility] May 14, 2024 10:30 AM AMBULATORY - PSYCHIATRY [facility] May 26, 2024 01:00 PM AMBULATORY - PSYCHIATRY [facility] May 26, 2024 01:30 PM AMBULATORY - PSYCHIATRY [facility] Jun 04, 2024 08:30 AM AMBULATORY - REHAB MEDICIN E [facility] Jun 06, 2024 11:30 AM AMBULATORY - PSYCHIATRY [facility] Lab Results: +/- 30 days of the encounter This section includes the Chemistry and Hematology Lab Results on record with [place] for the patient. Radiology Reports and Pathology Reports are provided separately, in subsequent sections. Lab Results This section contains the Chemistry/Hematology Results that were resulted 30 days before or 30 daysafter the date of the Encounter. Date/Time Source Result Type Result - Unit Interpretation Reference Range Specimen Type Comment Feb 21, 2024 09:29 AM [facility] VITAMIN D (TOTAL) SERUM Specimen Type: SERUM No comment entered. Ordering Provider: ROSARIO ESCALERA Report Released Date/Time: Nov 20, 2023 01:30 PM Reporting Lab: [address] [id number] Performing Lab: [address] [id number] VITAMIN D (TOTAL) 13.00 ng/mL L 30.00-75.0 0 Social History: Smoking Status (Most current) and Tobacco Use (All prior to encounter date) This section includes the most current, and the historical, smoking and tobacco- related health factors from the [place] facility where the Encounter took place. Current Smoking Status This section includes the most current smoking, or tobacco-related health factor, from the [place] facility where the Encounter took place. Date/Time Current Smoking Status Comment Lucinda andrade Jun 19, 2023 10:00 AM TOBACCO FORMER USER MORE [facility] Advance Directives: All historical and current Section Date Range: From patient's date of to the date document was created. This section includes ALL of a patient's completed or amended [place] Advance and Rescinded Directives. The entries below indicate that a directive exists for the patient, but an actual copy is not included with this document. The data comes from all [place] facilities. Date Advance Directives Provider Source October 22, 2023 ADVANCE DIRECTIVE DISCUSSION SABINA [facility] Radiology Reports: +/- 30 days of [...] the Encounter. The data comes from all [place] treatment facilities. Date/Time Radiology Report Provider Source Feb 28, 2024 01:00 PM MRI BRAIN W/O CONT RAST: MARION ZHENG [id number] -[id number] M Exm Date: FEB 28, 2024@13:00 Req Phys: KINA IZQUIERDO Loc: [facility] NEURO ATTN 10 (Req'g Loc) Img Loc: [facility] MRI Service: [place] [address] (Case [id number] COMPLETE)MRI BRAIN W/O CONTRAST (MRI Detailed) CPT:34055 Reason for Study: migraine Clinical History: 28 yo with progressive chronic daily headache. No history of head imaging. Assess for structural cause. Patient qualifies for outsourcing for distance BUT HAS OPTED TO RECEIVE THIS SERVICE IN [place]. Risks and benefits of the procedure were discussed with the patient. The patient did understand and agree with the treatment plan. [address], [place] [address] Report Status: Verified Date Reported: FEB 28, 2024 Date Verified: FEB 28, 2024 Marketing Strategy Lead E-Sig:/ES/KULDIP MCELROY Report: MRI BRAIN , 02/28/2024 [...] Code: Primary Interpreting Staff: KULDIP MCELROY, RADIOLOGIST (Marketing Strategy Lead) /KULDIP WHITAKER [facility] Encounter Notes: All associated encounter notes This section contains the clinical notes associated to the Encounter. Date/Time Encounter Note(s) Provider Source Mar 04, 2024 08:28 AM PAIN CONSULT: LOCAL TITLE: PAIN MANAGEMENT TELEMEDICINE CONSULTATION NOTE (C) STANDARD TITLE: PAIN CONSULT DATE OF NOTE: MAR 04, 2024@08:28 ENTRY DATE: MAR 04, 2024@08:29:09 AUTHOR: AVNI BARRON EXP COSIGNER: URGENCY: STATUS: COMPLETED Whole Health approaches used during this visit: Personal health planning Suicide Screen: C-SSRS Screening [place]-Suicide Severity Rating Scale (C-SSRS Screener) 1. Over the past month, have you [...] went to the roof but didn't jump)? Yes 8. If YES, was this within the past 3 months? No Video to Home Appointment: Telehealth Disclosure: Visit [...] emergencies, provider may initiate the call to raised printer by calling [facility] [phone] [address] Veterans/ Crisis Line - Dial 988, press #1 [employer] Help Desk ([facility]): [phone] or [phone] I am the Attending Physician. Reason for consultation: Comprehensive treatment recommendations Consult requested by: Rosario Escalera Chief complaint: Neck and right arm pain Suicide screen: Today HPI: This is a 28-year-old male seen for chief complaint of right-sided neck and arm pain. He reports this has been going on for several years. He states the pain starts in the right side of his neck radiates down into the shoulder and shoulder blade and then down the arm into the last 3 digits of the right hand. He will get numbness tingling weakness in the arm as well. He denies loss of bladder or bowel control. He will occasionally get some symptoms down the left arm but they are trivial compared with the right. He saw pain management out at [facility] in early 2022. He had a C6-C7 epidural steroid injection with Dr. Burgess which resulted in immediate symptom relief but only lasted for a few days. The plan at that point was for him to consult with spine surgery however due to the of his first child this was put on hold. He had tried physical therapy and chiropractic treatments prior to that which was ineffective. He had also tried Tylenol, NSAIDs, and gabapentin with limited benefit. The neck pain is the primary issue but he also has a similarly long history of lower back pain. He states this is present and equal on both sides. It will radiate across the waistline into the hips but not the front. The 2 sides are equal. It is worse with motion and at times his back will seize up. He denies pain, weakness, numbness, or tingling in the legs. He is not currently using anything for pain. He has a history of hereditary spherocytosis. He follows with mental health for PTSD. 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 Has not worked for 2 months. Observation: General: Pleasant male Head: Normocephalic Respiratory: Breathing is unlabored Musculoskeletal: Positive Spurling sign on the right side. No significant pain with motion of the right shoulder Psych: Affect is appropriate. Alert and oriented Assessment: 28-year-old male with neck and right arm pain consistent with cervical spondylosis, cervical disc displacement, and cervical radiculopathy. He also has low back pain consistent with lumbosacral spondylosis and lumbar disc displacement Plan: We discussed options. I will write him for some physical therapy for his lumbar issue and we will check x-rays MRIs of his cervical and lumbar spine to evaluate his anatomy. Depending on the results we will consider surgical consultation versus interventional treatment. We discussed the potential risks and benefits of this plan and he was in agreement with it. Follow-up after imaging. We discussed with the patient potential secondary side effects of medication prescribed and urged the patient to read all FDA approved materials that the pharmacy provides with the prescription. Above treatment plan was discussed in detail with the patient, who verbalizes understanding. Was given the clinic information and encouraged to call to report any change in symptoms. TOTAL TIME SPENT: Spent 45 minutes in care of this patient today, including review of records, obtaining H&P, discussing imaging findings, formulation and discussion of treatment plan and requesting consults/ orders. This note was generated using [employer] dictation and may contain errors MEDICATION RECONCILIATION MEDICATION RECONCILIATION REPORT reviewed and [...] a complete and accurate list of medications. /deanna/ AVNI BARRON PHYSICIAN Signed: 03/04/2024 09:02 AVNI BARRON [facility]
--- OUTSIDE RECORDS SUMMARY | 2024-03-14 06:00 | XMS_ITS | Encounter Summary ---
Author Name [facility] [place] [facility] [place] Address [address] [place] [address] Care Team Providers Care System Development Engineer Name Role Phone ROSARIO ESCALERA Primary Care Provider [facility] Insurance Providers: All historical and current [...] Type Encounter Description Reason Provider Source Mar 14, 2024 10:00 AM PSYTX W PT 30 MINUTES [facility] - IND ICD-10-CM F43.12 Post-traumatic stress disorder, chronic ADDIS CLOUD Encounter Template Text not used by [place] Assessments - Encounter Diagnoses This section includes the primary and secondary diagnoses documented for the Encounter. Date/Time Primary/Secondary Diagnosis Diagnosis Name Provider Source Mar 14, 2024 10:47 AM PRIMARY Post-traumatic stress disorder, chronic ADDIS CLOUD [facility] Mar 14, 2024 10:47 AM SECONDARY Major depressive disorder, single episode, unspecified ADDIS CLOUD [facility] Mar 14, 2024 10:47 AM SECONDARY Personality disorder, unspecified ADDIS CLOUD [facility] Mar 14, 2024 10:47 AM SECONDARY Primary insomnia ADDIS CLOUD CB Plan of Treatment: Future Appointments (+ 6 months) and Future Tests (+/- 45 days) The Plan of Treatment section includes future care activities for the patient from all [place] [facility]. This section includes future appointments and future orders which are active, pending or scheduled. Future Appointments This section includes appointments that were scheduled to occur 6 months from the date of the Encounter, up to a maximum of 20 appointments. The data comes from all [place] [facility]. Appointment Date/Time Appointment Type Appointme nt Facility Name Mar 19, 2024 10:30 AM AMBULATORY - PSYCHIATRY [facility] Mar 21, 2024 01:15 PM AMBULATORY - REHAB MEDICIN E [facility] Mar 27, 2024 11:00 AM AMBULATORY - PSYCHIATRY [facility] Apr 01, 2024 01:00 PM AMBULATORY - NONE [facility] Apr 02, 2024 01:00 PM AMBULATORY - PSYCHIATRY [facility] Apr 08, 2024 02:00 PM AMBULATORY - PSYCHIATRY [facility] Apr 09, 2024 01:30 PM AMBULATORY - REHAB MEDICIN E [facility] Apr 21, 2024 09:30 AM AMBULATORY - PSYCHIATRY [facility] Apr 29, 2024 01:30 PM AMBULATORY - PSYCHIATRY [facility] May 02, 2024 02:30 PM AMBULATORY - REHAB MEDICIN E [facility] May 08, 2024 01:00 PM AMBULATORY - NEUROLOGY [facility] May 09, 2024 03:00 PM [facility]ORY - NONE [facility] May 09, 2024 03:57 PM [facility] May 12, 2024 10:00 AM AMBULATORY - PSYCHIATRY [facility] May 14, 2024 10:30 AM AMBULATORY - PSYCHIATRY [facility] May 26, 2024 01:00 PM AMBULATORY - PSYCHIATRY [facility] May 26, 2024 01:30 PM AMBULATORY - PSYCHIATRY [facility] Jun 04, 2024 08:30 AM AMBULATORY - REHAB MEDICIN E [facility] Jun 06, 2024 11:30 AM AMBULATORY - PSYCHIATRY [facility] Jun 09, 2024 01:00 PM AMBULATORY - PSYCHIATRY [facility] Lab Results: +/- 30 days of the encounter This section includes the Chemistry and Hematology Lab Results on record with [place] for the patient. Radiology Reports and Pathology Reports are provided separately, in subsequent sections. Lab Results This section contains the Chemistry/Hematology Results that were resulted 30 days before or 30 daysafter the date of the Encounter. Date/Time Source Result Type Result - Unit Interpretation Reference Range Specimen Type Comment Feb 21, 2024 09:29 AM [facility] VITAMIN D (TOTAL) SERUM Specimen Type: SERUM No comment entered. Ordering Provider: ROSARIO ESCALERA Report Released Date/Time: Nov 20, 2023 01:30 PM Reporting Lab: [facility] [id number] [place] [id number] Performing Lab: [address] [id number] VITAMIN D (TOTAL) 13.00 ng/mL L 30.00-75.0 [...] 2023 02:00 PM VA-TOBACCO FORMER USER [facility] Tobacco Use History This section includes a history of the smoking, or tobacco-related health factors, that were collected on or before the date of the Encounter. The data comes from the [place] facility where the Encounter took place. Date/Time Smoking Status/Tobacco Use Comment F acility May 18, 2023 02:00 PM [place]-TOBAC[place] QUIT 1 TO < 5 YRS [facility] Advance Directives: All historical and current [...] Source October 22, 2023 ADVANCE DIRECTIVE DISCUSSION SABIAN NAIR [facility] Radiology Reports: +/- 30 days of [...] the Encounter. The data comes from all [place] treatment facilities. Date/Time Radiology Report Provider Source Feb 28, 2024 01:00 PM MRI BRAIN W/O CONT RAST: MARION ZHENG [id number] -1995 M Exm Date: FEB 28, 2024@13:00 Req Phys: KINA IZQUIERDO Loc: [facility] ATTN 10 (Req'g Loc) Img Loc: [facility] MRI Service: [place] [address] (Case [id number] COMPLETE)MRI BRAIN W/O CONTRAST (MRI Detailed) CPT:14423 Reason for Study: migraine Clinical History: 28 yo with progressive chronic daily headache. No history of head imaging. Assess for structural cause. Patient qualifies for outsourcing for distance BUT HAS OPTED TO RECEIVE THIS SERVICE IN [place]. Risks and benefits of the procedure were discussed with the patient. The patient did understand and agree with the treatment plan. [address] [id number] Report Status: Verified Date Reported: FEB 28, 2024 Date Verified: FEB 28, 2024 Finishing Range Operator E-Sig:/ES/KULDIP MCELROY Report: MRI BRAIN , 02/28/2024 [...] Code: Primary Interpreting Staff: KULDIP MCELROY, RADIOLOGIST (Finishing Range Operator) /KULDIP WHITAKER [facility] Encounter Notes: All associated encounter notes This section contains the clinical notes associated to the Encounter. Date/Time Encounter Note(s) Provider Source Mar 14, 2024 10:41 AM TREATMENT PLAN INT ERDISCIPLINARY NOTE: LOCAL TITLE: BEHAVIORAL HEALTH INTERDISCIPLINARY TREATMENT PLAN STANDARD TITLE: TREATMENT PLAN INTERDISCIPLINARY NOTE DATE OF NOTE: MAR 14, 2024@10:41 ENTRY DATE: MAR 14, 2024@10:41:52 AUTHOR: ADDIS CLOUD EXP COSIGNER: URGENCY: STATUS: COMPLETED BEHAVIORAL HEALTH INTERDISCIPLINARY TREATMENT PLAN UPDATE - Feb, @ 10:41AM Visit Date: Feb, @ 10:00 - LETTY OP 2 TEXTILE WORKER: ADDIS CLOUD / LETTY MENENDEZ [facility] TEAM MEMBERS: NATALIE SWENSON: CLINICAL GLACING MACHINE TENDER BIA SMALLWOOD: CLINICAL NURSE SPECIALIST ADDIS CLOUD: CLINICAL GLACING MACHINE TENDER PANTERA MARTINS: CLINICAL PSYCHOLOGIST ABAD MCCARTHY: PSYCHIATRIST BLANK MENG: LICENSED PRACTICAL NURSE SOL LOWE: CLINICAL GLACING MACHINE TENDER ABAD TENORIO: CLINICAL COOK PRESSURE OSITO BARAJAS: GLACING MACHINE TENDER BLADIMIR VENCES: FORESTRY TECHNICIAN RISK ASSESSMENT (DANGER TO SELF AND OTHERS): [place] denies SI/HI. CSSRS negative PATIENT'S PERCEPTION OF NEEDS AND PREFERENCES: I want to work on DBT. When asked about trauma work, I try to avoid PATIENT'S STRENGTHS/ABILITIES: Self Identified: moved to [place] Provider Identified: able to tolerate grief support groups, new move stressors w/o SI Active partnership in [employer] PATIENT'S ABILITIES Licensed Gis Web Developer Able to transport self PATIENT'S BARRIERS TO CARE: Physical/Medical Issues Chronic psychiatric symptoms, without remission INTERDISCIPLINARY INTEGRATED SUMMARY: Chief Complaint/Hx of Present Illness: PTSD ([place]); Insomnia; Depression; Personality D/O, Cluster B traits MH screens were sent via [employer] touch prior to appt today MH screens were utilized to illustrate the symptoms to [place] for purposes of informed care to assist in treatment planning today. Self-Care/Activities of Daily Living: He moved to [facility] residence w/friends, their minor son and his minor son in 2023. He reports transition going well. Confirmation [employer] address updated. He estimates sleep to be @ 3-6 hours of sometimes interrupted sleep. He is taking MH medications as prescribed as able. Sleep clinic number provided as he is uncertain as to follow up appt process. Past Psychiatric History: He completed initial MH assessment on 02.09.2023. He completed 3 CBTD appts w/early termination in fall. He previously completed [address] w/prior community therapist and identifies it was not an effective experience. He engaged in 13 out at 14 CBTSP appts w/last appt in December 2023. He met w/[facility] October-November 2023 w/early termination d/t his perception of lack of benefit and work schedule. He has been going to [employer] grief groups. They review goals for MH therapy, EBPs, and barriers. He is encouraged to consider trauma work d/t increase in tolerance to mgmt of SI w/grief groups. He is open w/his avoidance. [place] identifies goal to work on DBT; he did HW packet but lost w/house move. They have 30 min appt today d/t his need to attend 10:30 [place] Grief group. They will resume DBT work next appt. Family Circumstances: He continues to provide care to minor son. He heard back from community provider and has scheduled intake for grief support for his son. He has questions about VA insurance; he has reached out to [place] w/o answer yet. [place] w/this clinic will call him back later today d/t time restraints [facility]. Social/Developmental: He resides w/ friends and their minor child. He went to out of state wedding w/his minor son recently & this went well overall. Nutrition: He reports baseline appetite w/average of 1 meal a day. He denies significant weight changes. He reports needing to making efforts for nutrition awareness d/t negative GI impact. Spiritual/Cultural Factors: He is working w/[place] [employer] & attending [facility] grief groups. Positive reinforcement for his ability to present to these and gains w/o SI being experienced. Employment History/Financial History: [place] has is 100% [place]. He is no longer employed per his choice and financial stability w/[place]. DISCHARGE PLANNING/CRITERIA: Treating Specialty: [facility] Plans for follow-up care MENTAL HEALTH DIAGNOSES AND RELEVANT MEDICAL CONDITIONS: Chronic post-traumatic stress disorder ([facility] [id number]) Insomnia ([facility] [id number]) Depression ([facility] [id number]) Exposure to potentially hazardous substance ([facility] [id number]) Suicidal thoughts ([facility] [id number]) Personality disorder ([facility] [id number]) H/O splenectomy ([facility] [id number]) Hereditary spherocytosis ([facility] [id number]) FH: Migraine ([facility] [id number]) TREATMENT PLAN: Problem: Problem/Need: [PERSONALITY DISORDER]: I have experienced a long-standing pattern of suicidal thoughts, avoidance, and instability relationships Goal: I want to be more stable emotionally and less impulsive in my actions. Goal: I want to learn how to approach my life in a more even and flexible way. Objective: I will learn techniques to delay acting on destructive impulses and instead use healthier methods of handling distress. Progress will be measured thru reduction in PHQ9 and GAD7 by at least 3 points. Progress will be measured the identification of at least 3 trigger thoughts. Progress will be measured thru development and utilization of at least 3 relaxation techniques. Progress will be measured by in- office assessment and self-report to interventions. Projected Target Date: 09/11/2024 Intervention: [PSYCHOTHERAPY] My provider will work with me to achieve this goal and objective through DBT Skills Providers: ADDIS CLOUD Time Frame: One time per month for 6 months Treating Specialty: Outpatient Mental Health Renewal Date: 09/10/2024 Entered Treatment: 02/12/2023 @ 03:15PM Anticipated Discharge: None Actual Discharge: None Problem: has not been able to recover from the traumatic event(s) they experienced, as evidenced by hyperarousal, cognitive distortions, avoidance, and sleep disturbance Goal: Increase [place]'s ability to make sense of traumatic experiences, and feel the natural emotions associated with them. Objective: will experience fewer and less intense symptoms of PTSD as measured by a decrease of greater than or equal to 10 points on the PCL. Progress will be measured thru reduction in PHQ9 and GAD7 by at least 3 points. Progress will be measured the identification of at least 3 trigger thoughts. Progress will be measured thru development and utilization of at least 3 relaxation techniques. . Progress will be measured by in-office assessment and self- report to interventions. Projected Target Date: 09/11/2024 PHQ9: 02/09/2023 @ 10:20 PHQ9=18 CATY-7: 02/09/2023 @ 10:20 Anxiety=10 PCL-5: 02/09/2023 @ 10:20 PCL-5=49 Intervention: Individual MH therapy - EBP and stress mgmt techniques Providers: ADDIS CLOUD Time Frame: Two times per month for 6 months Treating Specialty: Outpatient Mental Health Renewal Date: 09/10/2024 Entered Treatment: 02/12/2023 @ 03:15PM Anticipated Discharge: None Actual Discharge: None Objective: [place] will experience fewer and less intense symptoms of PTSD as measured by a decrease of greater than or equal to 10 points on the PCL. Progress will be measured thru reduction in PHQ9 and GAD7 by at least 3 points. Progress will be measured thru taking MH medications as prescribed. Progress will be measured by in- office assessment and self-report to interventions. Projected Target Date: 09/11/2024 PHQ9: 03/14/2024 @ 08:49 PHQ9=14 CATY-7: 03/14/2024 @ 08:49 Anxiety=10 PCL-5: 03/14/2024 @ 08:49 PCL-5=52 Intervention: MH medication mgmt Providers: ABAD TENORIO Time Frame: Five times per year for 1 year Treating Specialty: Outpatient Mental Health Renewal Date: 09/10/2024 Entered Treatment: 02/12/2023 @ 03:15PM Anticipated Discharge: None Actual Discharge: None UPDATED/RESOLVED/INACTIVATED PROBLEMS & COMMENTS: INACTIVATED PROBLEM: INACTIVATED PROBLEM: has engaged in suicidal self-directed violence. [place] reports a desire to feel grief and pain without the desire to act on suicide, I need to disconnect the pain from suicide. Comments: 13 of 14 sessions were completed in December 2023. 03/14/2024 (by ADDIS CLOUD) Comments: INACTIVATED GOAL: Decrease frequency, intensity and duration of suicidal thoughts, urges and desires: I want to be able to decrease thinking about suicide. [place] reports thinking about it daily , I get stuck in the feeling of worthlessness and then I spiral out. Comments: Inactivated by inactivating problem. 03/14/2024 (by ADDIS CLOUD) INACTIVATED OBJECTIVE: will experience an improvement in coping skills as evidenced by an improvement in overall scores on the Suicide Related Coping Scale. Baseline SRCS score is: 30 Comments: Inactivated by inactivating problem. 03/14/2024 (by ADDIS CLOUD) INACTIVATED INTERVENTION: Individual Cognitive Behavioral Therapy for suicide prevention Comments: Inactivated by inactivating problem. 03/14/2024 (by ADDIS CLOUD) REFERRED NEEDS OR GOALS: All Medical Problems will be referred to [place]'s PCP for evaluation and treatment. Created: 02/12/2023 (by ADDIS CLOUD) Status: [facility] Created: 03/14/2024 (by ADDIS CLOUD) Status: PARTICIPATION IN TREATMENT PLANNING: Relevant treatment options, including evidence-based interventions, were considered and discussed with the . Risks, benefits, and potential complications were discussed with the [place]. AGREED TO PLAN DISCUSSED. FAMILY PARTICIPATION IN TREATMENT PLANNING: 'S FAMILY NOT AVAILABLE. Other VA Services: Pact and Pharm MH /deanna/ ADDIS VALLECILLO-CHRISTINE CLINICIAL GLACING MACHINE TENDER Signed: 03/14/2024 10:41 Receipt Acknowledged By: 03/17/2024 08:12 /es/ BLANK MENG LICENSED PRACTICAL NURSE 03/17/2024 08:35 /es/ CHAPLAIN BLADIMIR VENCES MDiv FORESTRY TECHNICIAN 03/14/2024 11:43 /es/ BERTRAND CASANOVA Senior Carpenter Prototype ADDIS CLOUD [facility] Mar 14, 2024 08:19 AM MENTAL HEALTH COUN SELING NOTE: LOCAL TITLE: PSYCHIATRY PSYCHOTHERAPY INDIVIDUAL NOTE (T) STANDARD TITLE: MENTAL HEALTH COUNSELING NOTE DATE OF NOTE: MAR 14, 2024@08:19 ENTRY DATE: MAR 14, 2024@08:19:07 AUTHOR: ADDIS CLOUD EXP COSIGNER: URGENCY: STATUS: COMPLETED Session Time and Duration: 10:00 am - 10:26 am 26 minutes MH assessment: 02.09.2023 DIAGNOSIS: PTSD ([place]); Insomnia; Depression; Personality D/O, Cluster B traits PATIENT'S STRENGTHS/ABILITIES: Self Identified: moved to new house Provider Identified: able to tolerate grief support groups, new move stressors w/o SI Active partnership in [employer] PATIENT'S ABILITIES Licensed Gis Web Developer Able to transport self Date Treatment Plan is due: 09.11.2024 Treatment Plan Goals: Goal: I want to be more stable emotionally and less impulsive in my actions. Goal: I want to learn how to approach my life in a more even and flexible way. Goal: Increase 's ability to make sense of traumatic experiences, and feel the natural emotions associated with them. PROGRESS TOWARDS GOAL: Minimal progress & improving MH clinical reminders due: Clinical Reminders Activity Homelessness/Food Insecurity Screen: In the past 2 months, have you been living in stable housing that you own, rent, or stay in as part of a household? Yes - Living in stable housing. Are you worried or concerned that in the next 2 months you may NOT have stable housing that you own, rent, or stay in as part of a household? No - Not worried about housing near future The reports the following: Within the past 12 months, you worried whether your food would run out before you got money to buy more. Never true Within the past 12 months, the food you bought just didn't last and you didn't have money to get more. Never true TYPES OF THERAPY: Individual METHOD OF THERAPY: Skills building [place] is 28 y/o male w/100% [place] being treated in Specialty MH for therapy. He presents on time to scheduled in person therapy appt. [place] is agreeable to updating [place] plan (see separate note) which includes update on present day events and coping. [place] would like to meet again for a 60 min appt. [place] is calm and stable at the end of the session with no SI/HI noted. INTERVENTIONS: Assessed mental health status and reviewed events since last session. SW assesses SI/HI. SW reviews the goals for session. SW assists in updating the treatment plan and reviews progress made on [place] goals and areas would still like to focus on. SW updates Psychosocial Assessment during this time to reflect present symptoms and stressors. SW offers emotional support and uses active listening. SW reviews healthy coping skills. SW provides positive reinforcement for progress is making and application of skills. 'S PARTICIPATION: x Actively participated in discussion x Has a better understanding of therapeutic issues x Understood or demonstrated a new strategy/skill x Willing to practice discussed strategy/skill x Agrees to continue working towards treatment goals PLAN/HOMEWORK: 1. [place] to follow up with this SW for therapy 2. to call clinic/[facility] as needed in between sessions 3. medication mgmt. as scheduled 4. to follow Suicide Prevention plan from Mar 23, 2023. 5. DBT packet next appt MENTAL STATUS EXAM: ORIENTATION AND CONSCIOUSNESS: Alert and attentive, Alert and oriented x 3 APPEARANCE AND BEHAVIOR: Cooperative and reasonable, walks independently; well kempt SPEECH: Normal rate/rhythm LANGUAGE: Intact MOOD AND AFFECT: Mood Depressed, Affect w/range PERCEPTUAL DISTURBANCE (Hallucinations, Illusions): None THOUGHT PROCESS AND ASSOCIATION: Normal, coherent THOUGHT CONTENT (delusions, Obsessions, etc.): No unusual thought content MEMORY: Intact SUICIDAL OR VIOLENT IDEATION: He denies SI/HI now or since last appt. CSSRS negative. Safety plan developed on Mar. presents as low acute and chronic intermediate risk of suicide [...] (x) Support System (x) Engaged in Treatment Suicide Screen: C-SSRS Screening [place]-Suicide Severity Rating Scale (C-SSRS Screener) 1. Over [...] went to the roof but didn't jump)? No 8. If YES, was this within the past 3 months? Response not required due to responses to other questions. Will follow up with the in 1-2 weeks is aware to contact the clinic or the [place]'s Crisis Line with concerns prior to the next scheduled visit. /deanna/ ADDIS HARDY CLINICIAL GLACING MACHINE TENDER Signed: 03/14/2024 10:47 ADDIS CLOUD [facility]
--- OUTSIDE RECORDS SUMMARY | 2024-03-21 06:30 | XMS_ITS | Encounter Summary ---
Author Name [facility] [place] Organization [facility] [place] [facility] [place] Address [address] [place] [address] Care Team Providers Care Salt Plant Operator Name Role Phone ROSARIO ESCALERA Primary Care [...] section includes the information on record at NH for the Encounter. Date/Time Encounter Type Encounter Description Reason Provider Source Mar 21, 2024 10:30 AM [facility] - GROUP ICD-10-CM Z71.81 Spiritual or denominational counseling KEYA MELGAR Encounter Template Text not used by [place] Assessments - Encounter Diagnoses This section includes the primary and secondary diagnoses documented for the Encounter. Date/Time Primary/Secondary Diagnosis Diagnosis Name Provider Source Mar 21, 2024 12:16 PM PRIMARY Spiritual or denominational counseling KYEA MELGAR [facility] Plan of Treatment: Future Appointments (+ 6 months) and Future Tests (+/- 45 days) The Plan of Treatment section includes future care activities for the patient from all NH treatmentfacilities. This section includes future appointments and future orders which are active, pending or scheduled. Future Appointments This section includes appointments that were scheduled to occur 6 months from the date of the Encounter, up to a maximum of 20 appointments. The data comes from all [facility]. Appointment Date/Time Appointment Type Appointme nt Facility Name Mar 27, 2024 11:00 AM AMBULATORY - PSYCHIATRY CL [facility] Apr 01, 2024 01:00 PM AMBULATORY - NONE [facility] Apr 02, 2024 01:00 PM AMBULATORY - PSYCHIATRY [facility] Apr 08, 2024 02:00 PM AMBULATORY - PSYCHIATRY [facility] Apr 09, 2024 01:30 PM AMBULATORY - REHAB MEDICIN E [facility] Apr 21, 2024 09:30 AM AMBULATORY - PSYCHIATRY [facility] Apr 29, 2024 01:30 PM AMBULATORY - PSYCHIATRY [facility] May 02, 2024 02:30 PM AMBULATORY - REHAB MEDICIN E [facility] May 08, 2024 01:00 PM AMBULATORY - NEUROLOGY [facility] May 09, 2024 03:00 PM AMBULATORY - NONE [facility] May 09, 2024 03:57 PM AMBULATORY - NONE [facility] May 12, 2024 10:00 AM AMBULATORY - PSYCHIATRY [facility] May 14, 2024 10:30 AM AMBULATORY - PSYCHIATRY [facility] May 26, 2024 01:00 PM AMBULATORY - PSYCHIATRY [facility] May 26, 2024 01:30 PM AMBULATORY - PSYCHIATRY [facility] Jun 04, 2024 08:30 AM AMBULATORY - REHAB MEDICIN E [facility] Jun 06, 2024 11:30 AM AMBULATORY - PSYCHIATRY [facility] Jun 09, 2024 01:00 PM AMBULATORY - PSYCHIATRY [facility] Jun 19, 2024 09:45 AM AMBULATORY - NONE [facility] Jun 25, 2024 09:00 AM AMBULATORY - PSYCHIATRY [facility] Lab Results: +/- 30 days of the encounter This section includes the Chemistry and Hematology Lab Results on record with NH for the patient. Radiology Reports and Pathology Reports are provided separately, in subsequent sections. Lab Results This section contains the Chemistry/Hematology Results that were resulted 30 days before or 30 daysafter the date of the Encounter. Date/Time Source Result Type Result - Unit Interpretation Reference Range Specimen Type Comment Feb 21, 2024 09:29 AM [facility] VITAMIN D (TOTAL) SERUM Specimen Type: SERUM No comment entered. Ordering Provider: ROSARIO ESCALERA Report Released Date/Time: Nov 20, 2023 01:30 PM Reporting Lab: [address] [id number] Performing Lab: [address] [id number] VITAMIN D (TOTAL) 13.00 ng/mL L 30.00-75.0 0 Social History: Smoking Status (Most current) and Tobacco Use (All prior to encounter date) This section includes the most current, and the historical, smoking and tobacco- related health factors from the NH facility where the Encounter took place. Current Smoking Status This section includes the most current smoking, or tobacco-related health factor, from the NH facility where the Encounter took place. Date/Time Current Smoking Status Comment Facil ity Jun 19, 2023 10:00 AM TOBACCO FORMER USER MORE [address] [facility] Advance Directives: All historical and current Section Date Range: From patient's date of to the date document was created. This section includes ALL of a patient's completed or amended NH Advance and Rescinded Directives. The entries below indicate that a directive exists for the patient, but an actual copy is not included with this document. The data comes from all NH facilities. Date Advance Directives Provider Source October 22, 2023 ADVANCE DIRECTIVE DISCUSSION SABINA NAIR [facility] Radiology Reports: +/- 30 days of [...] the Encounter. The data comes from all NH treatment facilities. Date/Time Radiology Report Provider Source Feb 28, 2024 01:00 PM MRI BRAIN W/O CONT RAST: BRITTNEYMARION Haji [id number] -1995 M Exm Date: FEB 28, 2024@13:00 Req Phys: KINA IZQUIERDO Loc: [facility] ATTN 10 (Req'g Loc) Img Loc: [facility] MRI Service: [place] [address] (Case [id number] COMPLETE)MRI BRAIN W/O CONTRAST (MRI Detailed) CPT:03087 Reason for Study: migraine Clinical History: 28 yo with progressive chronic daily headache. No history of head imaging. Assess for structural cause. Patient qualifies for outsourcing for distance BUT HAS OPTED TO RECEIVE THIS SERVICE IN [place]. Risks and benefits of the procedure were discussed with the patient. The patient did understand and agree with the treatment plan. [address], [place] [address] Report Status: Verified Date Reported: FEB 28, 2024 Date Verified: FEB 28, 2024 Spout Tender E-Sig:/ES/KULDIP MCELROY Report: MRI BRAIN , 02/28/2024 [...] Code: Primary Interpreting Staff: KULDIP MCELROY, RADIOLOGIST (Spout Tender) /KULDIP WHITAKER [facility] Encounter Notes: All associated encounter notes This section contains the clinical notes associated to the Encounter. Date/Time Encounter Note(s) Provider Source Mar 21, 2024 10:30 AM PASTORAL CARE NOTE : LOCAL TITLE: [facility] STANDARD TITLE: PASTORAL CARE NOTE DATE OF NOTE: MAR 21, 2024@10:30 ENTRY DATE: MAR 21, 2024@12:11:13 AUTHOR: KEYA MELGAR EXP COSIGNER: URGENCY: STATUS: COMPLETED TITLE OF GROUP: Grief Group DURATION: 75 minutes VOCATIONAL REHABILITATION TECHNICIAN: Staff, Diplomatic Interpreter/Translator Keya Melgar MA, MTS, MDiv, [facility], [facility] NUMBER OF GROUP MEMBERS IN [facility] ATTENDANCE: [facility] SESSION: consents to group therapy sessions via Telehealth video conferencing modality. educated as to likely difference between Telehealthcare and jbso-ro-zmra care. Mcdonough are informed of the risks and benefits of using Telehealth services and procedures and likely risks and benefits of using alternatives to Telehealth services. Veterans are informed of the right to refuse Telehealth services at any time without jeopardizing their right to future care, services or benefits. Veterans addresses, phone numbers, and emergency contact were reviewed immediately prior to this session as being up-to-date and accurate. Telehealth is deemed to be an appropriate clinical option due to residing in own residence with the ability to have the private session and safe coping skills present. PURPOSE: This open, rolling [facility] grief group program is designed to support veterans who indicated a desire for grief support. Each session is tailored to meet the needs of our veterans who desire to share, process and learn more about their own experiences with grief and their overall understanding + experience of the grief process. This space studies faculty member grief group aims to accompany/guest laundry attendant one another on a painful journey, informed by tlfzem-ujtei-zwyiemabn education. Topic: Grief Group: Acceptance vs Accepting Road Builder Mats: PDF Grief Guide, Welcome Slide Deck, Vet Mats: paper & pencil to write notes/thoughts for writing activity Welcome & Announcements Reflections & Review Week 1 we discussed the idea that love brought us here Week 2 we discussed the concept of Great Expectations Conteh Thoughts or lingering Questions from these sessions? Check-In: 1) Name 2) Branch of Service 3) Internal Weather Report Introduction Acceptance v Accepting Has someone ever said to you (or made you feel that) You just gotta accept this and move on What thoughts or emotions comes to you when you hear this? Chart Compare/Contrast: Acceptance vs Accepting Discussion Quotes Acceptance doesnt mean you agree with, condone, or give up. It simply means you stop fighting reality. Yaakov Alatorre, Way of the Peaceful [place] (1979) Acceptance is not a one-time event but a continuous process of letting go and embracing the present moment. Jaim Rodriguez, The Power of Now (1996) Open Discussion 1. What stands out to you most as you reflect on these quotes? 2. In her book, The Grieving Brain, Dr. Roxanne Dominique outlines the difference between acceptance and accepting. One is finite where the other is an ongoing experience. Does this resonate with your experience? How does this challenge the traditional view of acceptance in grief? 3. What does accepting look like in your daily life today? Final Reflections 2. Mcdonough Final Takeaways 3. Invitation to next weeks session on Intrusive Thoughts & Triggers 4. Hang back online for any vets that need to connect, share need, etc. 5. To explore more: See Grief Guide pp. 9, 14, 18 to continue your reflections throughout the rest of the week. Plan: will attend grief group as able through 2023 & has information needed to connect for individual support at [phone] (Ch. Keya Melgar) & [phone] (Diplomatic Interpreter/Translator Service at [facility]). Individual Comments: connected to [facility] on time and was a silent but a visually engaged participant. 's affect was normal and appropriate to material presented. Mcdonough listened to others personal grief reflections related to the theme/prompts of this grief-series. Mcdonough has [id number] to connect with space studies faculty member at any time for any needs that arise for self-directed space studies faculty member care. /es/ [facility] KEYA M RESHAD MDiv [facility] Signed: 03/21/2024 12:18 KEYA MELGAR [facility]
--- OUTSIDE RECORDS SUMMARY | 2024-03-21 09:15 | XMS_ITS | Encounter Summary ---
Author Name [facility] [place] Address [address] [place] [address] Care Team Providers Care Scrap Cutter Name Role Phone ROSARIO ESCALERA Primary Care Provider [facility] Insurance Providers: All historical and current [...] Description Reason Provider Source Mar 21, 2024 01:15 PM THERAPEUTIC EXERCISES PHYSICAL THERAPY ICD-10-CM M54.40 Lumbago with sciatica, unspecified side KVNG HDZ Sonya Encounter Template Text not used by [place] Assessments - Encounter Diagnoses This section includes the primary and secondary diagnoses documented for the Encounter. Date/Time Primary/Secondary Diagnosis Diagnosis Name Provider Source Mar 21, 2024 03:41 PM PRIMARY Lumbago with sciatica, unspecified side KVNG HDZ CB Plan of Treatment: Future Appointments (+ 6 months) and Future Tests (+/- 45 days) The Plan of Treatment section includes future care activities for the patient from all [facility] treatmentfacilities. This section includes future appointments and future orders which are active, pending or scheduled. Future Appointments This section includes appointments that were scheduled to occur 6 months from the date of the Encounter, up to a maximum of 20 appointments. The data comes from all [facility] facilities. Appointment Date/Time Appointment Type Appointme nt Facility Name Mar 27, 2024 11:00 AM AMBULATORY - PSYCHIATRY [facility] Apr 01, 2024 01:00 PM AMBULATORY - NONE [facility] Apr 02, 2024 01:00 PM AMBULATORY - PSYCHIATRY [facility] Apr 08, 2024 02:00 PM AMBULATORY - PSYCHIATRY [facility] Apr 09, 2024 01:30 PM AMBULATORY - REHAB MEDICIN E [facility] Apr 21, 2024 09:30 AM AMBULATORY - PSYCHIATRY [facility] Apr 29, 2024 01:30 PM AMBULATORY - PSYCHIATRY [facility] May 02, 2024 02:30 PM AMBULATORY - REHAB MEDICIN E [facility] May 08, 2024 01:00 PM AMBULATORY - NEUROLOGY [facility] May 09, 2024 03:00 PM AMBULATORY - NONE [facility] May 09, 2024 03:57 PM AMBULATORY - NONE [facility] May 12, 2024 10:00 AM AMBULATORY - PSYCHIATRY [facility] May 14, 2024 10:30 AM AMBULATORY - PSYCHIATRY [facility] May 26, 2024 01:00 PM AMBULATORY - PSYCHIATRY [facility] May 26, 2024 01:30 PM AMBULATORY - PSYCHIATRY [facility] Jun 04, 2024 08:30 AM AMBULATORY - REHAB MEDICIN E [facility] Jun 06, 2024 11:30 AM AMBULATORY - PSYCHIATRY [facility] Jun 09, 2024 01:00 PM AMBULATORY - PSYCHIATRY [facility] Jun 19, 2024 09:45 AM AMBULATORY - NONE [facility] Jun 25, 2024 09:00 AM AMBULATORY - PSYCHIATRY [facility] Lab Results: +/- 30 days of [...] Type Comment Feb 21, 2024 09:29 AM [facility] VITAMIN D (TOTAL) SERUM Specimen Type: SERUM No comment entered. Ordering Provider: ROSARIO ESCALERA Report Released Date/Time: Nov 20, 2023 01:30 PM Reporting Lab: [facility] [address] [id number] Performing Lab: [facility] [address] [id number] VITAMIN D (TOTAL) 13.00 ng/mL L 30.00-75.0 [...] Facil ity May 18, 2023 02:00 PM [place]-TOBACCO QUIT 1 TO < 5 YRS [facility] Tobacco Use History This section includes a history of the smoking, or tobacco-related health factors, that were collected on or before the date of the Encounter. The data comes from the [place] facility where the Encounter took place. Date/Time Smoking Status/Tobacco Use Comment F acility May 18, 2023 02:00 [facility] Advance Directives: All historical [...] ADVANCE DIRECTIVE DISCUSSION SABINA NAIR [facility] Radiology Reports: +/- 30 days of [...] MRI BRAIN W/O CONT RAST: MARION ZHENG [id number] -1995 M Exm Date: FEB 28, 2024@13:00 Req Phys: KINA IZQUIERDO Loc: [facility] NEURO ATTN 10 (Req'g Loc) Img Loc: [facility] MRI Service: [place] [address] (Case [id number] COMPLETE)MRI BRAIN W/O CONTRAST (MRI Detailed) CPT:17412 Reason for Study: migraine Clinical History: 28 yo with progressive chronic daily headache. No history of head imaging. Assess for structural cause. Patient qualifies for outsourcing for distance BUT HAS OPTED TO RECEIVE THIS SERVICE IN [place]. Risks and benefits of the procedure were discussed with the patient. The patient did understand and agree with the treatment plan. [facility] [address] [place] [id number] Report Status: Verified Date Reported: FEB 28, 2024 Date Verified: FEB 28, 2024 Loom Blower E-Sig:/ES/KULDIP MCELROY Report: MRI BRAIN , 02/28/2024 [...] hemispheres and vermis are normal . Midbrain, roebrto and medulla are normal . Fenestrated diaphragm [...] Code: Primary Interpreting Staff: KULDIP MCELROY, RADIOLOGIST (Loom Blower) /KULDIP WHITAKER [facility] Encounter Notes: All associated encounter notes This section contains the clinical notes associated to the Encounter. Date/Time Encounter Note(s) Provider Source Mar 21, 2024 01:17 PM PHYSICAL THERAPY C ONSULT: LOCAL TITLE: PM&RS PHYSICAL THERAPY CONSULTATION (C) STANDARD TITLE: PHYSICAL THERAPY CONSULT DATE OF NOTE: MAR 21, 2024@13:17 ENTRY DATE: MAR 21, 2024@13:17:16 AUTHOR: KVNG HDZ EXP COSIGNER: URGENCY: STATUS: COMPLETED THE [facility] LUMBAR SPINE ASSESSMENT Location; [facility] Outpatient Physical Therapy Department (F2F) Date; 03/21/24 Referral; AVNI BARRON -Chronic LBP Dx Code; Chronic LBP PT dx; Chronic lumbar mobility/coordination impairments without radiculopathy Service Connected; Yes Age; 28 PMH: Exposure to potentially hazardous 10/10/2023 substance (SCT [id number]) H/O splenectomy 06/23/2023 Hereditary spherocytosis 05/21/2023 Depression 04/13/2023 Chronic post-traumatic stress disorder 02/09/2023 Insomnia 02/09/2023 Suicidal thoughts 09/10/2023 Personality disorder 09/10/2023 Outcome Measures; Modified Oswestry Low Back Pain Questionnaire; 03/21/24 Total; 1850 36% Self Rep Disability Present Symptoms; Client denies any central lumbar symptoms 1-2/10 L lateralization Sharp tightness 3/[address] Present since; Chronic LBP ( 3.5-4.0 years ) Unchanging x 6 months Constant symptoms: BL Lateralization Intermittent symptoms: None WORSE: Bending forward Lumbar flexion Worse after hot shower When Still Tending to young child (L flexion) BETTER: Other: Heat Disturbed Sleep; No Previous Treatment: Physical Therapy? No rn coronary care unit; Cervical and thoracic adjustments For my herniated disc problems SPECIFIC QUESTIONS; (Red Flags To Physical Therapy Intervention) Bowel/Bladder Changes; No Saddle Anesthesia; No Loss of LE motor Control; No Night Sweats; No Recent or Major Surgery: No Accidents: No Unexplained weight loss: No Active Litigation; No General Health: Fair Imaging: Yes (Reviewed with client) 05/19/22 MRI Cervical spine Mild cervical spondylosis C6-C7 Small broad based C6-[id number] complex with right lateral recess narrowing EXAMINATION: Cardiovascular screen; Held Posture: Sitting; Fair Standing: Fair Lordosis: Reduced Lateral Shift: Nil Correction of Posture: N/a Other Observations: Client adopts a fwd slouched sitting posture in unsupported position. Full loss of both cervical and lumbar lordosis. Ambulatory without AD. Neurological: Motor; R/L Iliopsoas (L2)- 5 Quad (L3)- 5 Ant Tib (L4)- 5 EHL (L5)- 5 Ankle Eversion (S1)- 5 Hams (S1)- 5 Reflexes; N/a Sensory: WNL to light touch in BL L2-S1 dermatomes. Dural Signs; R L Slump Test- (-) (-) Lumbar MOVEMENT LOSS Gen Mod Min Nil Flexion: x Extension: x Side Gliding R: n/a Side Gliding L: n/a Terms; During; P/Produces, A/Abolishes, I/Increase, D/Decrease, NE/No Effect, C/Centralizing, Per/Peripheralizing. After: B/Better, W/Worse, NB/No Better, NW/No Worse, NE/No Effect, C/Centralized, Per/Peripheralized. TEST MOVEMENTS: Symptoms During Testing S/S After Testing [facility] Response Pretest Symptoms Lying BRIT -- Rep BRIT -- EIL P (C) NB/NW No change Rep EIL P (C) B (Dec R/L Lat) Inc ROM Comment; No lateral component observed at this time. No peripheralization of symptoms was noted during exam. With prone positioning, client reported reduction in R lateralization dominant condition. With NIKO and PPU progressions, client noted central Pinch which became a larger concern during repetitive lumbar extension movements. After prone movements, client reports a 1/10 central, R/L lateralization symptom. Manual Therapy; Prone Thoracic P/a Mobs (II-III) 5 reps each segment Hypomobility throughout Cavitations at T5-T7 levels Final level; NEW 1/10 central lumbar Pinching 1/10 L lateralization Sharp tightness 1/[address] Clinical Prediction Guidelines; Lumbar Radiculopathy (-) Dermatomal pattern (-) Pain with cough/sneeze (+) Increased pain with sitting (-) Muscle Weakness (-) Sensory Changes (-) Positive SLR (n/a) Decreased Achilles Reflex (+) Centralization PRINCIPLE OF MANAGEMENT: Pt Education: 1. Avoidance of slouched sitting/standing postures. 2. Avoidance of repetitive lumbar flexion activities. 3. Postural correction; Sitting/standing overcorrection. Relax 10%. 4. HEP Compliance; Requesting 3-4x/day. End range movements. 5. Mechanical ROM improvements to lumbar extension. 6. Centralization vs. Peripheralization. Exercise Prescription; (Issued in written form) 1. Prone/NIKO; 2. PPU; 15 reps, hold 5-10 seconds 3. STRICT posture corrections; Firm chairs, lumbar roll A: 28 yo presenting to Outpatient Physical Therapy with chronic LBP (R>L Lateralization) and no radiculopathy. Hyper flexion posture and repetitive activities (young child) increases his complaints. With introduction to lumbar extension client PRODUCED central pinch (Centralization) with reduction in R/L Lateralization intensity. We discussed centralization vs. peripheralization and need for strict posture correction during all sitting activities. He returned this instruction and is agreeable to follow above HEP efforts as instructed until next visit. Pt goal; I'd like a few exercises to help with this intense, constant low back pain (Lateralization's). Treatment Goals: 1. Reduction of Derangement 2. Maintenance of reduction 3. Recovery of Function 4. Prevention of recurrence 5. Client will report 5 point reduction in Oswestry Outcome score. Freq; RTC placed for 14-21 days Anticipate 1-2 additional clinical visits. Evaluation Complexity; PERSONAL FACTORS & COMORBIDITIES: 3+ BODY STRUCTURES & FUNCTIONS, ACTIVITY LIMITATIONS, &/OR PARTICIPATION RESTRICTIONS: 1-2 CLINICAL PRESENTATION: Stable EVALUATION COMPLEXITY: Moderate PT Prognosis; Fair (With compliance) -Clean Neuro exam. -Age (28) -Symptomatic and mechanical improvement with PT interventions. -Chronic, constant LBP (3-4 years) -Hyperflexion posture and daily activities -Centralization with lumbar extension movements. -Nonradicular condition. P: will be seen for 2 additional visits and will include ther ex, manual therapy and neuro re-education for postural trg, muscle strengthening and pain reduction in order to return to prior level of function/activity. Appreciate this consult. /deanna/ KVNG HDZ PHYSICAL THERAPIST Signed: 03/21/2024 15:42 KVNG HDZ [facility]
--- OUTSIDE RECORDS SUMMARY | 2024-03-26 10:00 | XMS_ITS | Encounter Summary ---
Author Name [facility] [place] [facility] [place] Address [address] [place] [address] Care Team Providers Care Tube Inspector Name Role Phone ROSARIO ESCALERA Primary Care Provider [facility] Insurance Providers: All historical and current [...] section includes the information on record at [place] for the Encounter. Date/Time Encounter Type Encounter Description Reason Provider Source Mar 26, 2024 02:00 PM SCRIPT ARTIST THIRD LOADER INDIVIDU SCRIPT ARTIST SERVICE - INDIVIDUAL ICD-10-CM Z71.81 Spiritual or yazdanism counseling BLADIMIR VENCES Encounter Template Text not used by [place] Assessments - Encounter Diagnoses This section includes the primary and secondary diagnoses documented for the Encounter. Date/Time Primary/Secondary Diagnosis Diagnosis Name Provider Source Mar 26, 2024 04:39 PM PRIMARY Spiritual or yazdanism counseling BLADIMIR VENCES [facility] Plan of Treatment: Future Appointments (+ 6 months) and Future Tests (+/- 45 days) The Plan of Treatment section includes future care activities for the patient from all [place] treatmentfacilities. This section includes future appointments and future orders which are active, pending or scheduled. Future Appointments This section includes appointments that were scheduled to occur 6 months from the date of the Encounter, up to a maximum of 20 appointments. The data comes from all [facility]. Appointment Date/Time Appointment Type Appointme nt Facility Name Mar 27, 2024 11:00 AM AMBULATORY - PSYCHIATRY [facility] Apr 01, 2024 01:00 PM AMBULATORY - NONE [facility] Apr 02, 2024 01:00 PM AMBULATORY - PSYCHIATRY [facility] Apr 08, 2024 02:00 PM AMBULATORY - PSYCHIATRY [facility] Apr 09, 2024 01:30 PM AMBULATORY - REHAB MEDICIN [facility] Apr 21, 2024 09:30 AM AMBULATORY - PSYCHIATRY [facility] Apr 29, 2024 01:30 PM AMBULATORY - PSYCHIATRY [facility] May 02, 2024 02:30 PM AMBULATORY - REHAB MEDICIN E [facility] May 08, 2024 01:00 PM AMBULATORY - NEUROLOGY [facility] May 09, 2024 03:00 PM [facility] May 09, 2024 03:57 PM [facility] May 12, 2024 10:00 AM AMBULATORY - PSYCHIATRY [facility] May 14, 2024 10:30 AM AMBULATORY - PSYCHIATRY [facility] May 26, 2024 01:00 PM AMBULATORY - PSYCHIATRY [facility] May 26, 2024 01:30 PM AMBULATORY - PSYCHIATRY [facility] Jun 04, 2024 08:30 AM AMBULATORY - REHAB MEDICIN E [facility] Jun 06, 2024 11:30 AM AMBULATORY - PSYCHIATRY [facility] Jun 09, 2024 01:00 PM AMBULATORY - PSYCHIATRY [facility] Jun 19, 2024 09:45 AM [facility] NONE [facility] Jun 25, 2024 09:00 AM AMBULATORY - PSYCHIATRY [facility] Social History: Smoking Status (Most current) and Tobacco Use (All prior to encounter date) This section includes the most current, and the historical, smoking and tobacco- related health factors from the [place] facility where the Encounter took place. Current Smoking Status This section includes the most current smoking, or tobacco-related health factor, from the [place] facility where the Encounter took place. Date/Time Current Smoking Status Bryanna andrade Jun 19, 2023 10:00 AM TOBACCO FORMER USER MORE [facility] Advance Directives: All historical and current Section Date Range: From patient's date of to the date document was created. This section includes ALL of a patient's completed or amended [place] Advance and Rescinded Directives. The entries below indicate that a directive exists for the patient, but an actual copy is not included with this document. The data comes from all [place] facilities. Date Advance Directives Provider Source October 22, 2023 ADVANCE DIRECTIVE DISCUSSION SABINA NAIR [facility] Radiology Reports: +/- 30 days of [...] the Encounter. The data comes from all [place] treatment facilities. Date/Time Radiology Report Provider Source Feb 28, 2024 01:00 PM MRI BRAIN W/O CONT RAST: BRITTNEYMARION Haji [id number] -[id number] M Exm Date: FEB 28, 2024@13:00 Req Phys: KINA IZQUIERDO Loc: [facility] NEURO ATTN 10 (Req'g Loc) Img Loc: [place] MRI Service: [place] [address] (Case [id number] COMPLETE)MRI BRAIN W/O CONTRAST (MRI Detailed) CPT:58606 Reason for Study: migraine Clinical History: 28 yo with progressive chronic daily headache. No history of head imaging. Assess for structural cause. Patient qualifies for outsourcing for distance BUT HAS OPTED TO RECEIVE THIS SERVICE IN [place]. Risks and benefits of the procedure were discussed with the patient. The patient did understand and agree with the treatment plan. [address] [place], [place] [address] Report Status: Verified Date Reported: FEB 28, 2024 Date Verified: FEB 28, 2024 Brush Cutter E-Sig:/ES/KULDIP MCELROY Report: MRI BRAIN , 02/28/2024 [...] Code: Primary Interpreting Staff: KULDIP MCELROY, RADIOLOGIST (Brush Cutter) /KULDIP WHITAKER CB Encounter Notes: All associated encounter notes This section contains the clinical notes associated to the Encounter. Date/Time Encounter Note(s) Provider Source Mar 26, 2024 02:00 PM PASTORAL CARE NOTE : LOCAL TITLE: SCRIPT ARTIST NOTE (T) STANDARD TITLE: PASTORAL CARE NOTE DATE OF NOTE: MAR 26, 2024@14:00 ENTRY DATE: MAR 26, 2024@16:25:08 AUTHOR: BLADIMIR VENCES COSIGNER: URGENCY: STATUS: COMPLETED Arp logged into [facility] for individual grief support appointment and was open/receptive. shared his appreciation for grief group despite not feeling able to share & only be an active listener at this time. Arp was encouraged that his presence and engagement is most welcomed. Arp reflected on the challenges of being at a family wedding ( spouse side of family) and feeling overwhelmed with thoughts/feelings throughout the ceremony. was able to engage in a few conversations with family(spouse's cousins) regarding the absence of spouse Cindy; reports doing so detached from all emotions so I don't come apart. Arp shared continued avoidance of dealing with emotions. Arp explored the intense difficulty in parenting his son 1-on-1, both feeling as if he has no tools to engage him and a resistance to consider avenues. disregarded various ideas shared with him by his roommate and this provider as either too structured or too free/open. Arp declined to engage in any exploration of the barriers to parenting son. However, Arp shared feeling trapped in a loop of being angry having to parent in a life without spouse; grieving spouse and grieving of a career. Arp shared feeling no tolerance for difficult emotions & feelings for himself or dealing with son while also acknowledging how these emotions seep into other areas of my life for the worse. Arp was not open to exploring meaning/purpose. Interventions: presence, active listening, reflective questions, grief processing, exploring avoidance & rigid thinking, unhealthy coping tools, encouragement, validation, encouraging curiosity & exploration, support. Plan: Arp requested appointment by [facility] but due to time/end of appointment, will check in after Grief Group on Sunday to solidify date/time. Arp expressed gratitude. /deanna/ CHAPLAIN BLADIMIR CARLIN Signed: 03/26/2024 16:41 Receipt Acknowledged By: 03/27/2024 08:00 /deanna/ ADDIS HARDY CLINICIAL TRANSPLANT RN BLADIMIR VENCES [facility]
--- OUTSIDE RECORDS SUMMARY | 2024-03-27 07:00 | XMS_ITS | Encounter Summary ---
Author Name [facility] [place] Address [address] [place] [address] Care Team Providers Care Chip Mixer Name Role Phone ROSARIO ESCALERA Primary Care [...] section includes the information on record at [place] for the Encounter. Date/Time Encounter Type Encounter Description Reason Provider Source Mar 27, 2024 11:00 AM MTMS BY LISA LÓPEZ [facility] - IND ICD-10-CM F43.12 Post-traumatic stress disorder, chronic VALENTINA TENORIO Encounter Template Text not used by [place] Assessments - Encounter Diagnoses This section includes the primary and secondary diagnoses documented for the Encounter. Date/Time Primary/Secondary Diagnosis Diagnosis Name Provider Source Mar 27, 2024 04:57 PM PRIMARY Post-traumatic stress disorder, chronic [facility] TEN[facility] Mar 27, 2024 04:57 PM SECONDARY Encounter for immunization SIN TRINH [facility] Mar 27, 2024 04:57 PM SECONDARY Major depressive disorder, single episode, unspecified VALENTINA TENORIO [facility] Mar 27, 2024 04:57 PM SECONDARY Personality disorder, unspecified VALENTIAN TENORIO [facility] Mar 27, 2024 04:57 PM SECONDARY Primary insomnia VALENTINA TENORIO [facility] Mar 27, 2024 04:57 PM SECONDARY Suicidal ideations VALENTINA TENORIO Flav[facility] Plan of Treatment: Future Appointments (+ 6 months) and Future Tests (+/- 45 days) The Plan of Treatment section includes future care activities for the patient [facility] [place] [facility] This section includes future appointments and future orders which are active, pending or scheduled. Future Appointments This section includes appointments that were scheduled to occur 6 months from the date of the Encounter, up to a maximum of 20 appointments. The data comes from all [facility]. Appointment Date/Time Appointment Type Appointme nt Facility Name Apr 01, 2024 01:00 PM AMBULATORY - NONE [facility] Apr 02, 2024 01:00 PM AMBULATORY - PSYCHIATRY [facility] Apr 08, 2024 02:00 PM AMBULATORY - PSYCHIATRY [facility] Apr 09, 2024 01:30 PM AMBULATORY - REHAB MEDICIN E [facility] Apr 21, 2024 09:30 AM AMBULATORY - PSYCHIATRY [facility] Apr 29, 2024 01:30 PM AMBULATORY - PSYCHIATRY [facility] May 02, 2024 02:30 PM AMBULATORY - REHAB MEDICIN E [facility] May 08, 2024 01:00 PM AMBULATORY - NEUROLOGY [facility] May 09, 2024 03:00 PM [facility] May 09, 2024 03:57 PM AMBULATORY - NONE [facility] May 12, 2024 10:00 AM AMBULATORY - PSYCHIATRY [facility] May 14, 2024 10:30 AM AMBULATORY - PSYCHIATRY [facility] May 26, 2024 01:00 PM AMBULATORY - PSYCHIATRY [facility] May 26, 2024 01:30 PM AMBULATORY - PSYCHIATRY [facility] Jun 04, 2024 08:30 AM AMBULATORY - REHAB MEDICIN E [facility] Jun 06, 2024 11:30 AM AMBULATORY - PSYCHIATRY [facility] Jun 09, 2024 01:00 PM AMBULATORY - PSYCHIATRY [facility] Jun 19, 2024 09:45 AM AMBULATORY - NONE [facility] Jun 25, 2024 09:00 AM AMBULATORY - PSYCHIATRY [facility] Jun 25, 2024 09:30 AM AMBULATORY - NONE [facility] Immunizations: All administered on the encounter date This section contains immunizations associated to the Encounter. Immunization Series Date Issued Administered By Site Reaction Lot Number [id number] Drug Loan Processor Comment(s) Source INFLUENZA, SPLIT VIRUS, TRIVALENT, PF Mar 27, 2024 TANIYA TRINH LEFT DELTO ID [id number] Completed Series, ADMINISTERE D AT [place], [facility] [facility] Social History: Smoking Status (Most current) and Tobacco Use (All prior to encounter date) This section includes the most current, and the historical, smoking and tobacco- related health factors from the [place] facility where the Encounter took place. Current Smoking Status This section includes the most current smoking, or tobacco-related health factor, from the [place] facility where the Encounter took place. Date/Time Current Smoking Status Comment Facil ity May 18, 2023 02:00 PM [place]-TOBACCO QUIT 1 TO < 5 YRS [facility] Tobacco Use History This section includes a history of the smoking, or tobacco-related health factors, that were collected on or before the date of the Encounter. The data comes from the [place] facility where the Encounter took place. Date/Time Smoking Status/Tobacco Use Comment F acility May 18, 2023 02:00 PM [place]-TOBACCO QUIT 1 TO < 5 YRS [facility] Advance Directives: All historical and current Section Date Range: From patient's date of to the date document was created. This section includes ALL of a patient's completed or amended [place] Advance and Rescinded Directives. The entries below indicate that a directive exists for the patient, but an actual copy is not included with this document. The data comes from all [place] facilities. Date Advance Directives Provider Source October 22, 2023 ADVANCE DIRECTIVE DISCUSSION SABINA NAIR [facility] Radiology Reports: +/- 30 days of [...] the Encounter. The data comes from all [place] treatment facilities. Date/Time Radiology Report Provider Source Feb 28, 2024 01:00 PM MRI BRAIN W/O CONT RAST: MARION ZHENG [id number] -[id number] M Exm Date: FEB 28, 2024@13:00 Req Phys: KINA IZQUIERDO Loc: [facility] NEURO ATTN 10 (Req'g Loc) Img Loc: [place] MRI Service: [place] [address] (Case [id number] COMPLETE)MRI BRAIN W/O CONTRAST (MRI Detailed) CPT:37726 Reason for Study: migraine Clinical History: 28 yo with progressive chronic daily headache. No history of head imaging. Assess for structural cause. Patient qualifies for outsourcing for distance BUT HAS OPTED TO RECEIVE THIS SERVICE IN [place]. Risks and benefits of the procedure were discussed with the patient. The patient did understand and agree with the treatment plan. [facility] [address] [place] [id number] Report Status: Verified Date Reported: FEB 28, 2024 Date Verified: FEB 28, 2024 Event Services Manager E-Sig:/ES/KULDIP MCELROY Report: MRI BRAIN , 02/28/2024 [...] Code: Primary Interpreting Staff: KULDIP MCELROY, RADIOLOGIST (Event Services Manager) /KULDIP WHITAKER [facility] Encounter Notes: All associated encounter notes This section contains the clinical notes associated to the Encounter. Date/Time Encounter Note(s) Provider Source Mar 27, 2024 11:02 AM PRIMARY CARE NURSI NG NOTE: LOCAL TITLE: OUTPATIENT NURSING INTAKE NOTE (T) STANDARD TITLE: PRIMARY CARE NURSING NOTE DATE OF NOTE: MAR 27, 2024@11:02 ENTRY DATE: MAR 27, 2024@11:02:40 AUTHOR: SIN TRINH COSIGNER: URGENCY: STATUS: COMPLETED Hemoglobin A1C Results: [...] problems with drugs and/or alcohol? No 5. [facility] pocket card was provided to patient. No/patient declined Last [facility] MAP ([facility] [place], [place], [employer] [place]): 12/27/2023 Personal Health Plan [place], [place] (MAP) pain management Clinical Reminders Activity Influenza Immunization: Influenza, Standard-Dose, Trivalent, Preservative Free (Fluarix-Syringe) Administered: INFLUENZA, SPLIT VIRUS, TRIVALENT, PF Date Administered: Mar 27, 2024 11:00 Series: Complete Loan Processor: K[employer]ik[employer] Lot: [id number] Exp Date: Dec 15, [address] [facility]: [id number] Admin Route/Site: INTRAMUSCULAR/LEFT DELTOID Dosage: 0.5mL Vaccine Information Statement(s): INFLUENZA(FLU) VACC(INACTIVATED OR RECOMBINANT)VIS Jan 21, 2021 (CHINESE) Order By: Policy Administered By: Sin Trinh The Influenza Vaccine Information Statement (VIS) was reviewed with the patient/caregiver which lists the benefits and risks of the vaccine and the risks of not receiving the Influenza vaccine. The patient/caregiver denied any prior severe reaction to this vaccine or its components or a severe allergic reaction, such as anaphylaxis, to any vaccine or any injectable therapy. The patient/caregiver gave verbal consent to receive the vaccine. /deanna/ SIN TRINH LICENSED PRACTICAL NURSE Signed: 03/27/2024 11:03 [facility] Mar 27, 2024 10:58 AM PSYCHIATRY NOTE: LOCAL TITLE: CB PSYCHIATRY NOTE (T) STANDARD TITLE: PSYCHIATRY NOTE DATE OF NOTE: MAR 27, 2024@10:58 ENTRY DATE: MAR 27, 2024@10:58:57 AUTHOR: ABAD TENORIO COSIGNER: URGENCY: STATUS: COMPLETED PSYCHIATRIC EVALUATION NOTE Time in: 1058 Time out: 1127 Total time: 29 min AI is a 28yom w/ a MH h/o PTSD, depressive DO unspecified, and insomnia. Chart and available information reviewed. CC: mood phases HPI: Marion was last interviewed 02/21/24 where he reported having moved into their new home, which had been good. In the process of moving, I have slipped [...] to pursue sertraline retrial at this time. We resolved to retrial sertraline 50mg daily and he will start using his home-supply. [facility] seen for F appt as planned. Discussed that they are acclimating to new home, and things are coming along with time. Kind of in that in between phase of going through boxes and stuff . Discussed his having gone back to sertraline via 50mg daily dose trial. I noticed an increase in my time of sleep.. it's not as restful as I had hoped it would be, but more sleep . Estimated 6-8 hours duration on average. Denied much for recollecting dreams of late; I can't say I'm having any I guess, so that is good . Denied use of mirtazapine lately. Mood has been with highs and lows; discussed a depressive low after return from the wedding he went to and further reviewed the influence that reminders of loss have on his stability. Some of these reminders have been unavoidable of late; I was able to manage it, keeping things in control.. the day of the wedding, I was low, I pretty much avoided everyone as much as I could.. there were some people I was more comfortable with.. I'm not trying to bring down the mood or anything, so it sucked . Keeping somewhat busy; still kind of eh, but functioning around the house.. I really haven't been doing much outside the house . Attending martial arts class TI[employer], although with some missed attendance. Heightened sense of anxiety and weight in my chest.. I haven't had as much of that, some sprinkled in, but not as long lasting . He is unsure if this is a reflection of venlafaxine benefit having waned, although is inclined to not believe this was helpful. Once or twice a week missed dosing, without concern on his part for withdrawal. Encouraged improved adherence, which is his intention, with further monitoring of this dose. Feels he is on a second shift schedule of late, with often 0200 bedtimes. Reviewed sleep hygiene tenets and considerations therein. Reading to supplant screen time, although has lost some interest in this. Will continue to monitor. Denied SI/HI at present. SUBSTANCE USE HX: Nicotine- vaped nicotine; deferred cessation interest at this time Alcohol- denied Illicit- denied PSYCHIATRIC MEDICATION HISTORY: According to CPRS and JLV remote data of [place] outpatient Rx, the pt has a h/o TRAZODONE (non-VA); ESCITALOPRAM (up to 20mg daily, non-VA); HYDROXYZINE (25mg PRN anxiety, non-VA); SERTRALINE. FLUOXETINE (20mg non-VA); ARIPIPRAZOLE (2mg non-VA). Since engagement with this development writer: SERTRALINE; LITHIUM. ALLERGIES/ADVERSE REACTIONS Type: DRUG Date/Time Reactant Severity Reaction 02/15/2023 16:29 HYDROMORPHONE URTICARIA 02/15/2023 16:29 OXYCODONE NAUSEA AND VOMITING 02/15/2023 16:28 MORPHINE ANAPHYLAXIS Active Outpatient Medications Status 1) ATORVASTATIN CALCIUM 10MG TAB TAKE ONE TABLET BY ACTIVE MOUTH EVERY DAY 2) CHOLECALCIF 25MCG (D3-1,000UNIT) TAB TAKE THREE ACTIVE TABLETS BY MOUTH EVERY DAY FOR VITAMIN D DEFICIENCY 3) DIVALPROEX 500MG 24HR (ER) SA TAB TAKE ONE TABLET BY ACTIVE MOUTH AT BEDTIME 4) FLUTICASONE PROP 50MCG 120D NASAL INHL USE 2 SPRAYS ACTIVE IN EACH NOSTRIL EVERY DAY NASAL CONGESTION 5) MIRTAZAPINE 15MG TAB TAKE ONE-HALF TABLET BY MOUTH AT ACTIVE BEDTIME 6) SERTRALINE HCL 50MG TAB TAKE ONE TABLET BY MOUTH ACTIVE EVERY DAY LABS: ANION GAP:9.0 (12/19/23 09:26) PLASMA BUN: [...] of violence towards others is considered: low [facility] made no comments during our conversation that [...] titration yielding questions on benefit over time. Mckenna augmentation, at one time viewed as supportive for SI and negative thought content, also in disuse and without indication to resume at present. Sertraline trial with tolerability and some benefit, which we will monitor, with a focus on adherence. PLAN: -> PTSD, depressive DO unspecified: - offered supportive listening and encouraged to optimize both medication and counseling therapies - continue sertraline 50mg daily - continue mirtazapine 7.5mg [...] RECONCILIATION REPORT reviewed and discussed with patient. [place] prescription medications: Patient verifies that they are in receipt of a complete and accurate list of medications. Prescription medications from another source: Patient verifies that they are in receipt of a complete and accurate list of medications. Over the counter medications, vitamins, herbals, and nutritional supplements: Patient verifies that they are in receipt of a complete and accurate list of medications. /deanna/ ABAD TENORIO CLINICAL MERCHANDISING PROFESSOR Signed: 03/27/2024 16:57 ABAD TENORIO [facility]
--- OUTSIDE RECORDS SUMMARY | 2024-03-28 06:30 | XMS_ITS | Encounter Summary ---
Author Name [facility] [facility] [place] Address [address] [place] [address] Care Team Providers Care Plant Health Care Technician Name Role Phone ROSARIO ESCALERA Primary Care Provider [facility] Insurance Providers: All historical and current [...] section includes the information on record at [place] for the Encounter. Date/Time Encounter Type Encounter Description Reason Provider Source Mar 28, 2024 10:30 AM WIND PLANT MANAGER PRECINCT CAPTAIN GROUP WIND PLANT MANAGER SERVICE - GROUP ICD-10-CM Z71.81 Spiritual or gnosticism counseling KEYA MELGAR Encounter Template Text not used by [place] Assessments - Encounter Diagnoses This section includes the primary and secondary diagnoses documented for the Encounter. Date/Time Primary/Secondary Diagnosis Diagnosis Name Provider Source Mar 28, 2024 02:50 PM PRIMARY Spiritual or gnosticism counseling KEYA MELGAR [facility] Plan of Treatment: Future Appointments (+ 6 months) and Future Tests (+/- 45 days) The Plan of Treatment section includes future care activities for the patient from all [place] treatmentfacilities. This section includes future appointments and future orders which are active, pending or scheduled. Future Appointments This section includes appointments that were scheduled to occur 6 months from the date of the Encounter, up to a maximum of 20 appointments. The data comes from all [facility]. Appointment Date/Time Appointment Type Appointme nt Facility Name Apr 01, 2024 01:00 PM AMBULATORY - NONE [facility] Apr 02, 2024 01:00 PM AMBULATORY - PSYCHIATRY [facility] Apr 08, 2024 02:00 PM AMBULATORY - PSYCHIATRY [facility] Apr 09, 2024 01:30 PM AMBULATORY - REHAB MEDICIN E [facility] Apr 21, 2024 09:30 AM AMBULATORY - PSYCHIATRY [facility] Apr 29, 2024 01:30 PM AMBULATORY - PSYCHIATRY [facility] May 02, 2024 02:30 PM AMBULATORY - REHAB MEDICIN E [facility] May 08, 2024 01:00 PM AMBULATORY - NEUROLOGY [facility] May 09, 2024 03:00 PM AMBULATORY - NONE [facility] May 09, 2024 03:57 PM AMBULATORY - NONE [facility] May 12, 2024 10:00 AM AMBULATORY - PSYCHIATRY [facility] May 14, 2024 10:30 AM AMBULATORY - PSYCHIATRY [facility] May 26, 2024 01:00 PM AMBULATORY - PSYCHIATRY [facility] May 26, 2024 01:30 PM AMBULATORY - PSYCHIATRY [facility] Jun 04, 2024 08:30 AM AMBULATORY - REHAB MEDICIN E [facility] Jun 06, 2024 11:30 AM AMBULATORY - PSYCHIATRY [facility] Jun 09, 2024 01:00 PM AMBULATORY - PSYCHIATRY [facility] Jun 19, 2024 09:45 AM [facility] Jun 25, 2024 09:00 AM AMBULATORY - PSYCHIATRY [facility] Jun 25, 2024 09:30 AM AMBULATORY - NONE [facility] Social History: Smoking Status (Most current) and Tobacco Use (All prior to encounter date) This section includes the most current, and the historical, smoking and tobacco- related health factors from the [place] facility where the Encounter took place. Current Smoking Status This section includes the most current smoking, or tobacco-related health factor, from the [place] facility where the Encounter took place. Date/Time Current Smoking Status Bryanna andrade Jun 19, 2023 10:00 AM TOBACCO FORMER USER MORE 12 [facility] Advance Directives: All historical and current Section Date Range: From patient's date of to the date document was created. This section includes ALL of a patient's completed or amended [place] Advance and Rescinded Directives. The entries below indicate that a directive exists for the patient, but an actual copy is not included with this document. The data comes from all [facility]. Date Advance Directives Provider Source October 22, 2023 ADVANCE DIRECTIVE DISCUSSION SABINA NAIR [facility] Radiology Reports: +/- 30 days of the [...] the Encounter. The data comes from all [place] treatment facilities. Date/Time Radiology Report Provider Source Feb 28, 2024 01:00 PM MRI BRAIN W/O CONT RAST: BRITTNEYMARION Haji [id number] -1995 M Exm Date: FEB 28, 2024@13:00 Req Phys: KINA IZQUIERDO Loc: [facility] NEURO ATTN 10 (Req'g Loc) Img Loc: [place] MRI Service: [place] [address] (Case [id number] COMPLETE)MRI BRAIN W/O CONTRAST (MRI Detailed) CPT:35010 Reason for Study: migraine Clinical History: 28 yo with progressive chronic daily headache. No history of head imaging. Assess for structural cause. Patient qualifies for outsourcing for distance BUT HAS OPTED TO RECEIVE THIS SERVICE [place]. Risks and benefits of the procedure were discussed with the patient. The patient did understand and agree with the treatment plan. [address], [place] [address] Report Status: Verified Date Reported: FEB 28, 2024 Date Verified: FEB 28, 2024 Superintendent Local E-Sig:/ES/KULDIP MCELROY Report: MRI BRAIN , 02/28/2024 [...] Code: Primary Interpreting Staff: KULDIP MCELROY, RADIOLOGIST (Superintendent Local) /KULDIP WHITAKER [facility] Encounter Notes: All associated encounter notes This section contains the clinical notes associated to the Encounter. Date/Time Encounter Note(s) Provider Source Mar 28, 2024 10:30 AM PASTORAL CARE NOTE : LOCAL TITLE: WIND PLANT MANAGER SPIRITUAL ISSUES GROUP STANDARD TITLE: PASTORAL CARE NOTE DATE OF NOTE: MAR 28, 2024@10:30 ENTRY DATE: MAR 28, 2024@14:45:53 AUTHOR: KEYA MELGAR COSIGNER: URGENCY: STATUS: COMPLETED TITLE OF GROUP: [place] [facility] DURATION: 80 minutes PEDIATRIC ONCOLOGY NURSE: Staff, Chaplain Keya Melgar MA, [place], iv, [facility], [place] Introducing Resident: Chaplain Patrick Whitehead MDiv NUMBER OF GROUP MEMBERS IN [facility] ATTENDANCE: 8 TELEMENTAL HEALTH TO HOME SESSION: consents to group therapy sessions via Telehealth video conferencing modality. [place] educated as to likely difference between Telehealthcare and [id number] care. [place] are informed of the risks and benefits [...] present. PURPOSE: This open, rolling [facility] grief group program is designed to support veterans who indicated a desire for grief support. Each session is tailored to meet the needs of our veterans who desire to share, process and learn more about their own experiences with grief and their overall understanding + experience of the grief process. This pneumatic tube fitter grief group aims to accompany/whanau support worker one another on a painful journey, informed by [id number] education. Topic: Grief Group: Painful Thoughts & Longing Civil Division Deputy Sheriff Mats: PDF Grief Guide, Welcome Slide Deck, Vet Mats: paper & pencil to write notes/thoughts for reflection Welcome & Announcements Apr 18 & ---boss dates (two weeks off Apr 25 & ) Initial Reflections Week 1 we discussed the idea that love brought us here Week 2 we discussed the concept of Great Expectations Week 3 we discussed acceptance vs accepting Boss Thoughts or lingering Questions from these sessions? Check-In: 1) Name 2) Branch of Service 3) Grief Intensity Scale (10 high pain) Grounding with Breath---3 slow, deep belly breaths (exhale longer than inhale). Notice how your body feels. Discussion Painful Thoughts & Longing o Vignette #1 Have you experienced an intrusive thought like V #1? Share & explore What is an intrusive thought? Civil Division Deputy Sheriff expounds. o Comes out of nowhere, shocking o Spurred on by anxiety or trauma, often unsettlingbrains way of comprehending event or chemical response to the minds fear o Sometimes thought of as a trigger or grief burst (different) Magical Thinking----Quote by Stacey Meléndez. How do you relate to this quote or push against it? o Intrusive thoughts can lead to Rumination or Looping (normal) going over and over---could/should/what ifs---some different outcome o Vignette #2 The [place] Elephant experiment: Try it out. (Unhealthy COPING TOOL) o when we try to ignore difficult thoughts or feelings, we can actually make them STRONGER. The more we suppress, the more likely to think about them. Ashley Quote---shared. Healthy Coping Tool: ? Normalize---Grief Intrusive thoughts are often on par with regular intrusive thoughts----Dont forget to mushroom picker milk! Other examples? The difference??---- grief thoughts carry painful emotions. Normal but dont help us adapt to whats happening now. ? Find a way THROUGH the thoughts and watch them shift, recede Accepting of the now (the ongoing active evolving experience we talked about last week) Pause to look at it with love & self-compassion----rather than shove it away/down race toward distraction Ask yourself questions: What were my intentions? Did we make the best choices given the knowledge had at the time? Recognize & label these unpleasant thoughts with longing. Give self-space & time to connect with who and even what you miss: pictures, items, smells, videos, letter writing Review before opening up for Vignette #3, final. o Vignette #3 What stands out to you? What steps did you see/hear/notice that she used? What role does self-compassion play in your grief process in dealing with painful thoughts & longing? Final Reflections 1. Pg 3, 7, 9 in the Grief Guide 2. Final Takeaways 3. Invitation to next weeks session Plan: will attend grief group as able through 2023 & has information needed to connect for individual support at [id number] (Ch. Keya Melgar) & [id number] ([facility]). Individual Comments: [place] connected to [facility] on time and was a quiet but engaged participant. [place]'s affect was normal and appropriate to material presented. shared personal grief reflections related to the theme/prompts of this grief-series. [place] has [id number] to connect with pneumatic tube fitter at any time for any needs that arise for self-directed pneumatic tube fitter care. /deanna/ CHAPLAIN KEYA MELGAR MDiv WIND PLANT MANAGER Signed: 03/28/2024 14:52 KEYA MELGAR [facility]
--- OUTSIDE RECORDS SUMMARY | 2024-04-02 09:00 | XMS_ITS | Encounter Summary ---
Author Name [facility] [place] Address [address] [place] [address] Care Team Providers Care Assembler Liquid Center Name Role Phone ROSARIO ESCALERA Primary Care [...] Encounter Type Encounter Description Reason Provider Source Apr 02, 2024 01:00 PM STRESS MGMT CLASS [facility] CLINIC - IND ICD-10-CM F60.9 Personality disorder, unspecified ADDIS CLOUD Encounter Template Text not used by [place] Assessments - Encounter Diagnoses This section includes the primary and secondary diagnoses documented for the Encounter. Date/Time Primary/Secondary Diagnosis Diagnosis Name Provider Source Apr 02, 2024 02:55 PM PRIMARY Personality disorder, unspecified ADDIS CLOUD [facility] Apr 02, 2024 02:55 PM SECONDARY Major depressive disorder, single episode, unspecified ADDIS CLOUD [facility] Apr 02, 2024 02:55 PM SECONDARY Post-traumatic stress disorder, chronic ADDIS CLOUD [facility] Apr 02, 2024 02:55 PM SECONDARY Primary insomnia [facility] Plan of Treatment: Future Appointments (+ 6 months) and Future Tests (+/- 45 days) The Plan of Treatment section includes future care activities for the patient from all [place] [facility] This section includes future appointments and future orders which are active, pending or scheduled. Future Appointments This section includes appointments that were scheduled to occur 6 months from the date of the Encounter, up to a maximum of 20 appointments. The data comes from all [facility]. Appointment Date/Time Appointment Type Appointme nt Facility Name Apr 08, 2024 02:00 PM [facility] Apr 09, 2024 01:30 PM AMBULATORY - [facility] Apr 21, 2024 09:30 AM AMBULATORY - PSYCHIATRY [facility] Apr 29, 2024 01:30 PM AMBULATORY - PS[facility]CHIATRY [facility] May 02, 2024 02:30 PM AMBULATORY - REHAB MEDICIN E [facility] May 08, 2024 01:00 PM AMBULATORY - NEUROLOGY [facility] May 09, 2024 03:00 PM AMBULATORY - NONE [facility] May 09, 2024 03:57 PM AMBULATORY - NONE [facility] May 12, 2024 10:00 AM AMBULATORY [facility] PS[facility]CHIATRY [facility] May 14, 2024 10:30 AM AMBULATORY - PSYCHIATRY [facility] May 26, 2024 01:00 PM AMBULATORY - PSYCHIATRY [facility] May 26, 2024 01:30 PM AMBULATORY - PS[facility]CHIATRY [facility] Jun 04, 2024 08:30 AM AMBULATORY - REHAB MEDICIN E [facility] Jun 06, 2024 11:30 AM AMBULATORY - PSYCHIATRY [facility] Jun 09, 2024 01:00 PM AMBULATORY - PSYCHIATRY [facility] Jun 19, 2024 09:45 AM AMBULATORY - NONE [facility] Jun 25, 2024 09:00 AM AMBULATORY - PSYCHIATRY [facility] Jun 25, 2024 09:30 AM [facility]ORY - NONE [facility] Jun 25, 2024 02:00 PM AMBULATORY - NONE [facility] Jul 03, 2024 01:00 PM [facility] Social History: Smoking Status (Most current) and [...] 2023 02:00 PM VA-TOBACCO FORMER USER [facility] Tobacco Use History This section includes a history of the smoking, or tobacco-related health factors, that were collected on or before the date of the Encounter. The data comes from the [place] facility where the Encounter took place. Date/Time Smoking Status/Tobacco Use Comment F acility May 18, 2023 02:00 PM VA-TOBACCO QUIT 1 TO < 5 YRS [facility] Advance Directives: All historical and current [...] 22, 2023 ADVANCE DIRECTIVE DISCUSSION SABINA NAIR [facility] Encounter Notes: All associated encounter notes This section contains the clinical notes associated to the Encounter. Date/Time Encounter Note(s) Provider Source Apr 02, 2024 01:09 PM MENTAL HEALTH NOTE : LOCAL TITLE: EVIDENCE BASED PSYCHOTHERAPY NOTE (T) STANDARD TITLE: MENTAL HEALTH NOTE DATE OF NOTE: APR 02, 2024@13:09 ENTRY DATE: APR 02, 2024@13:09:31 AUTHOR: ADDIS CLOUD COSIGNER: URGENCY: STATUS: COMPLETED DBT Session #1 Mindfulness Skills Session Time and Duration: 1:00 pm - 1:58 pm 58 minutes assessment: 02.09.2023 DIAGNOSIS: PTSD (SC); Insomnia; Depression; Personality D/O, Cluster B traits PATIENT'S STRENGTHS/ABILITIES: Self Identified: moved to new house Provider Identified: able to tolerate grief support groups, new move stressors w/o SI Active partnership in [employer] PATIENT'S ABILITIES Licensed Pulmonologist Intensivist Able to transport self Date Treatment Plan is due: 09.11.2024 Treatment Plan Goals: Goal: I want to be more stable emotionally and less impulsive in my actions. Goal: I want to learn how to approach my life in a more even and flexible way. Goal: Increase [place]wood's ability to make sense of traumatic experiences, and feel the natural emotions associated with them. PROGRESS TOWARDS GOAL: Minimal progress & improving MH clinical reminders due: None TYPES OF THERAPY: Individual METHOD OF THERAPY: DBT Skills building DBT Skills Training: Module I Mindfulness Skills; Manual Handouts & Worksheets Handouts 1-3A Cawood is 28 y/o male w/100% SC being treated in Specialty for therapy. He presents on time to scheduled [facility] therapy appt. Review if [place] would like to proceed w/DBT Manual as well as option for trauma processing. 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 DBT Manual utilized. Discussion about Mindfulness & Katz Mind handouts. He shares of struggles w/application of Mindfulnes in the past outside of [employer] which he used to find helpful. [place] Imagery utilized w/ identifying an ability to remain focused during this time. He is open to trying katz mind practices daily. He confirms he was able to take his minor son to therapist and review of his experiences w/being able to disclose information about trauma. No other needs at this time. [place] would like to continue w/DBT w/appts to be schedled biweekly; review of [facility] attendance policy. is calm and stable at the end of the session with no SI/HI noted. INTERVENTIONS: Assessed mental health status and reviewed events since last session. SW assesses SI/HI. SW reviews the goals for session. SW provides education and support about MH diagnosis and support options available. SW offers emotional support and uses active listening. SW reviews DBT Skills building manual and reviews concepts w/Cawood today. 'S PARTICIPATION: x Actively participated in discussion x Has a better understanding of therapeutic issues x Understood or demonstrated a new strategy/skill x Willing to practice discussed strategy/skill x Agrees to continue working towards treatment goals PLAN/HOMEWORK: 1. [place] to follow up with this SW for therapy 2. to call clinic/VCL as needed in between sessions 3. MH medication mgmt. as scheduled 4. [place] to follow Suicide Prevention plan from Mar 23, 2023. 5. Mindfulness Katz Mind exercises daily - packet to be sent via secure message MENTAL STATUS EXAM: ORIENTATION AND CONSCIOUSNESS: Alert and attentive, Alert and oriented x 3 APPEARANCE AND BEHAVIOR: Cooperative and reasonable SPEECH: Normal rate/rhythm LANGUAGE: Intact MOOD AND AFFECT: Mood Depressed, Affect w/range PERCEPTUAL DISTURBANCE (Hallucinations, Illusions): None THOUGHT PROCESS AND ASSOCIATION: Normal, coherent THOUGHT CONTENT (delusions, Obsessions, etc.): No unusual thought content MEMORY: Intact SUICIDAL OR VIOLENT IDEATION: He denies SI/HI now or since last appt; he reports thoughts about suicide but not self harm. Safety plan developed on Mar. Cawood presents as low acute and chronic intermediate [...] (x) Support System (x) Engaged in Treatment Will follow up with the biweekly for DBT is aware to contact the clinic or the 's Crisis Line with concerns prior to the next scheduled visit. Evidence-Based Psychotherapy Affect Regulation Dialectical Behavior Therapy (DBT) The patient completed the initial session of DBT. [facility] approaches used during this visit: Meditation, Mantram Repetition, Mindfulness A group of techniques where individuals learn to focus their attention and suspend the stream of thoughts that normally occupy the mind. This descriptor is to be used for all meditation, mindfulness, and Mantram repetition offerings other than MBSR (group or individual), which has its own descriptor. Mantram repetition is the process of repeating a mantram, a spiritual word, phrase, or brief prayer that when repeated silently to the self can calm the body, quiet the mind and improve concentration to restore the spirit. /deanna/ ADDIS HARDY CLINICIAL PLATE MAKER ZINC Signed: 04/02/2024 16:09 ADDIS CLOUD OC
--- OUTSIDE RECORDS SUMMARY | 2024-04-08 10:00 | XMS_ITS | Encounter Summary ---
Author Name [facility] [facility] Address [address] [place] [address] Care Team Providers Care Soa Integration Architect Name Role Phone ROSARIO ESCALERA Primary Care [...] section includes the information on record at [place] for the Encounter. Date/Time Encounter Type Encounter Description Reason Provider Source Apr 08, 2024 02:00 PM STRESS MGMT CLASS [facility] - IND ICD-10-CM F43.12 Post-traumatic stress disorder, chronic ADDIS CLOUD Encounter Template Text not used by [place] Assessments - Encounter Diagnoses This section includes the primary and secondary diagnoses documented for the Encounter. Date/Time Primary/Secondary Diagnosis Diagnosis Name Provider Source Apr 08, 2024 02:07 PM PRIMARY Post-traumatic stress disorder, chronic ADDIS CLOUD [facility] Apr 08, 2024 02:07 PM SECONDARY Major depressive disorder, single episode, unspecified ADDIS CLOUD [facility] Apr 08, 2024 02:07 PM SECONDARY Personality disorder, unspecified ADDIS CLOUD Apr 08, 2024 02:07 PM SECONDARY Primary insomnia ADDIS CLOUD [facility] Plan of Treatment: Future Appointments (+ 6 months) and Future Tests (+/- 45 days) The Plan of Treatment section includes future care activities for the [facility] [place] [facility] This section includes future appointments and future orders which are active, pending or scheduled. Future Appointments This section includes appointments that were scheduled to occur 6 months from the date of the Encounter, up to a maximum of 20 appointments. The data comes from all [place] treatment facilities. Appointment Date/Time Appointment Type Appointme nt Facility Name Apr 09, 2024 01:30 PM AMBULATORY - REHAB MEDICIN E [facility] Apr 21, 2024 09:30 AM AMBULATORY - PSYCHIATRY CL [facility] Apr 29, 2024 01:30 PM AMBULATORY - PSYCHIATRY CL [facility] May 02, 2024 02:30 PM AMBULATORY - REHAB MEDICIN E [facility] May 08, 2024 01:00 PM AMBULATORY - NEUROLOGY [facility] May 09, 2024 03:00 PM AMBULATORY - NONE [facility] May 09, 2024 03:57 PM AMBULATORY - NONE [facility] May 12, 2024 10:00 AM AMBULATORY - PSYCHIATRY CL [facility] May 14, 2024 10:30 AM AMBULATORY - PSYCHIATRY CL [facility] May 26, 2024 01:00 PM AMBULATORY - PSYCHIATRY CL [facility] May 26, 2024 01:30 PM AMBULATORY - PSYCHIATRY CL [facility] Jun 04, 2024 08:30 AM AMBULATORY - REHAB MEDICIN E [facility] Jun 06, 2024 11:30 AM AMBULATORY - PSYCHIATRY CL [facility] Jun 09, 2024 01:00 PM AMBULATORY - PSYCHIATRY CL [facility] Jun 19, 2024 09:45 AM AMBULATORY - NONE [facility] Jun 25, 2024 09:00 AM AMBULATORY - PSYCHIATRY CL [facility] Jun 25, 2024 09:30 AM AMBULATORY - NONE [facility] Jun 25, 2024 02:00 PM AMBULATORY - NONE [facility] Jul 03, 2024 01:00 PM AMBULATORY - PSYCHIATRY CL [facility] Jul 11, 2024 09:00 AM AMBULATORY - SURGERY [facility] Active, Pending, and Scheduled Orders This section includes a listing of several types of active, pending, and scheduled orders, including clinic medications orders, diagnostic test orders, procedure orders and consult orders; where the start date of the order is 45 days before the date of the Encounter or 45 days after the date of theEncounter. The data comes from all [place] treatment facilities. Test Date/Time Test Type Test Details Facility Name May 21, 2024 12:00 AM Laboratory - Chemi stry Order URINALYSIS URINE SP ONCE [facility] Social History: Smoking Status (Most current) and Tobacco Use (All prior to encounter date) This section includes the most current, and the historical, smoking and tobacco- related health factors from the [place] facility where the Encounter took place. Current Smoking Status This section includes the most current smoking, or tobacco-related health factor, from the [place] facility where the Encounter took place. Date/Time Current Smoking Status Comment Facil ity May 18, 2023 02:00 PM [place]-TOBACCO QUIT 1 TO < 5 YRS [facility] Tobacco Use History This section includes a history of the smoking, or tobacco-related health factors, that were collected on or before the date of the Encounter. The data comes from the [place] facility where the Encounter took place. Date/Time Smoking Status/Tobacco Use Comment F acility May 18, 2023 02:00 [facility] Advance Directives: All historical and current Section Date Range: From patient's date of to the date document was created. This section includes ALL of a patient's completed or amended [place] Advance and Rescinded Directives. The entries below indicate that a directive exists for the patient, but an actual copy is not included with this document. The data comes from all [place] facilities. Date Advance Directives Provider Source October 22, 2023 ADVANCE DIRECTIVE DISCUSSION SABINA NAIR [facility] Encounter Notes: All associated encounter notes This section contains the clinical notes associated to the Encounter. Date/Time Encounter Note(s) Provider Source Apr 08, 2024 12:44 PM MENTAL HEALTH NOTE : LOCAL TITLE: EVIDENCE BASED PSYCHOTHERAPY NOTE (T) STANDARD TITLE: MENTAL HEALTH NOTE DATE OF NOTE: APR 08, 2024@12:44 ENTRY DATE: APR 08, 2024@12:44:08 AUTHOR: ADDIS CLOUD COSIGNER: URGENCY: STATUS: COMPLETED DBT Session #2 Mindfulness Skills Session Time and Duration: 2:00 pm - 2:53 pm 53 minutes Patient consented to therapy session via Telehealth video conferencing modality. Patient educated as to likely difference between Telehealth care and face to face care. Patient informed of the risks and benefits of using TH services and procedures and likely risks and benefits of using alternatives to Telehealth services. Patient informed of the right to refuse Telehealth services at any time without jeopardizing their right to future care, services or benefits. The identity and professional status of all participants in the Telehealth encounter shall be conveyed to the patient by the practitioner giving the care. 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 He presents on time to scheduled [facility] therapy appt. He did not work on DBT HW and shares increase in depression - not engaging in personal hygiene, watching TV/spending more time in bed, care for minor son being primarily handled by roommate. He has been experiencing this for @ a week or more. He denies triggers w/dates or lack of purpose/goals. He confirms taking medications as prescribed. Review of options for more intensive care w/PRRC and Depression EBP. He confirms wanting to continue w/DBT. Katz Mind breathing exercise utilized and him identifying his goals to focus to be not feel pain and focus on his issues. He reports this feeling forced and education about Katz Mind. DBT Manual utilized. Discussion about Mindfulness & Observe handouts. Observation Mindfulness exercise utilized w/ identifying an ability to remain focused during this time. They review anxiety felt when coming out of exercise despite calmness in it. He shares overall more anxiety/panic attacks past few months. Review of role of DBT. They discuss in vivo exposures and possibility of isolation/not having a job/routine having a negative impact on his MH. Review of role of mindfulness and distress tolerance. He is open to trying katz mind practices nightly and will set an alarm. would like to continue w/DBT appts. No other needs at this time. [place] is calm and stable at the end of the session with no SI/HI noted. INTERVENTIONS: Assessed mental health status and reviewed events since last session. SW assesses SI/HI. SW reviews the goals for session. SW provides education and support about MH diagnosis and support options available. SW offers emotional support and uses active listening. SW reviews DBT Skills building manual and reviews concepts w/ today. SW uses [place] to review DBT, Depression, and/or PRRC. 'S PARTICIPATION: x Actively participated in discussion Has a better understanding of therapeutic issues x Understood or demonstrated a new strategy/skill x Willing to practice discussed strategy/skill x Agrees to continue working towards treatment goals PLAN/HOMEWORK: 1. to follow up with this SW for therapy 2. [place] to call clinic/VCL as needed in between sessions 3. MH medication mgmt. as scheduled 4. to follow Suicide Prevention plan from Mar 23, 2023. 5. Mindfulness Katz Mind/Observation exercises nightly - packet to be sent via secure [...] denies SI/HI now or since last appt. Safety plan developed on Mar. [place] presents as low acute and chronic intermediate [...] Will follow up with the biweekly for DBT; he is aware next appt for 30 min w/preference for in person is aware to contact the clinic or the 's Crisis Line with concerns prior to the next scheduled visit. Evidence-Based Psychotherapy Affect Regulation Dialectical Behavior Therapy (DBT) The patient continues to engage in DBT. Services delivered via TeleMentalHealth Whole Health approaches used during this visit: Meditation, [...] concentration to restore the spirit. /deanna/ ADDIS CLOUD RECTIFICATION PRINTER-SUPV CLINICIAL GEOLOGICAL SPECIALIST Signed: 04/08/2024 16:00 ADDIS CLOUD [facility]
--- OUTSIDE RECORDS SUMMARY | 2024-04-09 09:30 | XMS_ITS | Encounter Summary ---
Author Name [facility] [place] Organization [facility] [place] [facility] [place] Address [address] [place] [address] Care Team Providers Care Advanced Nursing Professor Name Role Phone ROSARIO ESCALERA [...] Type Encounter Description Reason Provider Source Apr 09, 2024 01:30 PM THERAPEUTIC EXERCISES PHYSICAL THERAPY ICD-10-CM M54.50 Low back pain, unspecified [facility] Encounter Template Text not used by [place] Assessments - Encounter Diagnoses This section includes the primary and secondary diagnoses documented for the Encounter. Date/Time Primary/Secondary Diagnosis Diagnosis Name Provider Source Apr 09, 2024 03:33 PM PRIMARY Low back pain, unspecified [facility] Plan of Treatment: Future Appointments (+ 6 [...] appointments. The data comes from all [facility]. Appointment Date/Time Appointment Type Appointme nt Facility Name Apr 21, 2024 09:30 AM AMBULATORY - PSYCHIATRY [facility] Apr 29, 2024 01:30 PM AMBULATORY - PSYCHIATRY [facility] May 02, 2024 02:30 PM AMBULATORY - REHAB MEDICIN E [facility] May 08, 2024 01:00 PM AMBULATORY - NEUROLOGY [facility] May 09, 2024 03:00 PM AMBULATORY - NONE [facility] May 09, 2024 03:57 PM [facility] May 12, 2024 10:00 AM AMBULATORY - PSYCHIATRY [facility] May 14, 2024 10:30 AM AMBULATORY - PSYCHIATRY [facility] May 26, 2024 01:00 PM AMBULATORY - PSYCHIATRY [facility] May 26, 2024 01:30 PM AMBULATORY - PSYCHIATRY [facility] Jun 04, 2024 08:30 AM AMBULATORY - REHAB MEDICIN E [facility] Jun 06, 2024 11:30 AM AMBULATORY - PSYCHIATRY [facility] Jun 09, 2024 01:00 PM AMBULATORY - PSYCHIATRY [facility] Jun 19, 2024 09:45 AM AMBULATORY - NONE [facility] Jun 25, 2024 09:00 AM AMBULATORY - PSYCHIATRY [facility] Jun 25, 2024 09:30 AM AMBULATORY - NONE [facility] Jun 25, 2024 02:00 PM AMBULATORY - NONE [facility] Jul 03, 2024 01:00 PM AMBULATORY - PSYCHIATRY [facility] Jul 11, 2024 09:00 AM AMBULATORY - SURGERY [facility] Jul 11, 2024 01:00 PM AMBULATORY - PSYCHIATRY [facility] Active, Pending, and Scheduled Orders This section includes a listing of several types of active, pending, and scheduled orders, including clinic medications orders, diagnostic test orders, procedure orders and consult orders; where the start date of the order is 45 days before the date of the Encounter or 45 days after the date of theEncounter. The data comes from all [facility]. Test Date/Time Test Type Test Details Facility Name May 21, 2024 12:00 AM Laboratory - Chemi stry Order URINALYSIS URINE SP ONCE [facility] Social History: Smoking Status (Most [...] Facil ity May 18, 2023 02:00 PM PA-TOBACCO QUIT 1 TO < 5 YRS [facility] Tobacco Use History This section includes a history of the smoking, or tobacco-related health factors, that were collected on or before the date of the Encounter. The data comes from the [place] facility where the Encounter took place. Date/Time Smoking Status/Tobacco Use Comment F acility May 18, 2023 02[facility] Advance Directives: All historical and current [...] 22, 2023 ADVANCE DIRECTIVE DISCUSSION SABINA NAIR [facility] Radiology Reports: +/- 30 days [...] the Encounter. The data comes from all [place] treatment facilities. Date/Time Radiology Report Provider Source May 09, 2024 03:59 PM CERVICAL SPINE WIT H FLEXION AND EXTENSION: MARION ZHENG [id number] -1995 M Exm Date: MAY 09, 2024@15:59 Req Phys: AVNI BARRON Loc: [facility] MRI MOBILE 1 (Req'g Loc) Img Loc: [facility] Service: [place] [address] (Case [id number] COMPLETE)CERVICAL SPINE WITH FLEXION AND E(RAD Detailed) CPT:01912 Reason for Study: pain Clinical History: [address], [place] [address] Report Status: Verified Date Reported: MAY 16, 2024 Date Verified: MAY 16, 2024 Weir Fisher E-Sig:/ES/JEFF SADLER Report: Cervical spine: AP, lateral, open mouth, flexion, extension and swimmer's views Reason for Study: Pain Findings: There is a mildly reversed lordosis of cervical spine, which appears mildly increased on the flexion view and the corrected on extension view. No evidence of acute displaced fracture or subluxation from C1 through C7. The vertebral body heights are preserved. Marginal osteophyte arising from C1, C6 and C7 vertebrae. Mild disc space narrowing at the C3-C4, C4-C5 and C5-C6 levels. There is no prevertebral soft tissue swelling. Impression: 1. Multilevel mild degenerative disease of the cervical spine. 2. A mildly reversed lordosis of cervical spine, which appears mildly increased on the flexion view and the corrected on extension view.. The etiology and clinical significance are unclear. The differential diagnosis may include, but not limited to, muscle spasm, positional, degenerative disease of the cervical spine, and traumatic injury. Correlation with clinical information is suggested. Finalized by Jeff Sadler MD On 05/16/2024 10:10 AM Primary Diagnostic Code: Primary Interpreting Staff: JEFF SADLER, RADIOLOGIST (Weir Fisher) /JEFF LEO [facility] May 09, 2024 03:59 PM LUMBOSACRAL SPINE, 2 OR 3 VIEWS: MARION ZHENG [id number] -1995 M Exm Date: MAY 09, 2024@15:59 Req Phys: AVNI BARRON Pat Loc: [facility] MRI MOBILE 1 (Req'g Loc) Img Loc: [facility] Service: [place] [address] (Case [id number] COMPLETE)LUMBOSACRAL SPINE, 2 OR 3 VIEWS (RAD Detailed) CPT:73816 Reason for Study: pain Clinical History: [address], [place] [address] Report Status: Verified Date Reported: MAY 16, 2024 Date Verified: MAY 16, 2024 Weir Fisher E-Sig:/ES/JEFF SADLER Report: Lumbar spine: AP, lateral and L5-S1 cone-down views Reason for Study: Pain Findings: No acute displaced fracture or subluxation of the lumbar spine is identified. The vertebral body heights are preserved. Small marginal osteophytes arising for all of lumbar spine vertebral bodies. Mild disc space narrowing at L5-S1 level. There is a mild anterior wedging compression fracture deformity of T12 vertebral body. There are mild degenerative changes of bilateral SI joints. Impression: 1. No evidence of acute displaced fracture or subluxation of the lumbar spine. 2. Multilevel mild degenerative disease of lumbar spine. 3. A mild anterior wedging compression fracture deformity of T12 vertebral body of indeterminate age. Finalized by Jeff Sadler MD On 05/16/2024 10:09 AM Primary Diagnostic Code: Primary Interpreting Staff: JEFF SADLER, RADIOLOGIST (Weir Fisher) /JEFF [facility] May 09, 2024 03:05 PM MRI LUMBAR SPINE W /O CONTRAST: MARION ZHENG [id number] -1995 M Exm Date: MAY 09, 2024@15:05 Req Phys: AVNI BARRON Pat Loc: [facility] PAIN SPINE 6 (Req'g Loc Img Loc: [facility] MRI CONTRACT READ Service: [place] [address] (Case [id number] COMPLETE)MRI LUMBAR SPINE W/O CONTRAST (MRI Detailed) CPT:86316 CPT Modifiers : TC TECHNICAL COMPONENT Reason for Study: pain Clinical History: History of Trauma: No SYMPTOMS AND SIGNS: Duration Of Symptoms:> 12 weeks pain Plain films obtained ([facility] or Outside Hospital): Yes No Impressions found Risks and benefits of the procedure were discussed with the patient. The patient did understand and agree with the treatment plan. Report Status: Verified Date Reported: MAY 12, 2024 Date Verified: MAY 12, 2024 Weir Fisher E-Sig:/ES/BECCA MARIA Report: EXAMINATION: MRI LUMBAR SPINE W/O DYE HISTORY pain COMPARISON: No relevant comparison available. TECHNIQUE: Multiplanar, multisequence MRI images of the lumbar spine without intravenous contrast. FINDINGS: There is straightening of the lumbar spine. There is no subluxation. There are no compression fractures. Disc space heights and signal are normal. The bone marrow signal is within normal limits. Conus medullaris terminates at L1. No abnormal signal in the distal spinal cord and conus There are no disc herniations in the lumbar spine. There are no levels of significant central spinal canal or foraminal stenosis in the lumbar spine. Impression: 1. There are no disc herniations in the lumbar spine. There are no levels of central spinal canal or foraminal stenosis in the lumbar spine. 2. No compression fracture or subluxation. DIAGNOSIS CODE: #DC 1000: NO ALERT REQUIRED Finalized by - Becca Maria Signed Date Time - 05/12/2024 15:01 Primary Diagnostic Code: NO ALERT REQUIRED Primary Interpreting Staff: BECCA MARIA, RADIOLOGIST (Weir Fisher) /BECCA STERLING [facility] May 09, 2024 03:05 PM MRI CERVICAL SPINE W/O CONTRAST: MARCEMARION ISAI [id number] -1995 M Exm Date: MAY 09, 2024@15:05 Req Phys: AVNI BARRON Pat Loc: [facility] PAIN SPINE MD 6 (Req'g Loc Img Loc: [facility] MRI CONTRACT READ Service: [place] [address] (Case [id number] COMPLETE)MRI CERVICAL SPINE W/O CONTRAST (MRI Detailed) CPT:04832 CPT Modifiers : TC TECHNICAL COMPONENT Reason for Study: pain Clinical History: History of Trauma: No SYMPTOMS AND SIGNS: Duration Of Symptoms:> 12 weeks pain Plain films obtained ([facility] or Outside Hospital): Yes No Impressions found Risks and benefits of the procedure were discussed with the patient. The patient did understand and agree with the treatment plan. Report Status: Verified Date Reported: MAY 12, 2024 Date Verified: MAY 12, 2024 Weir Fisher E-Sig:/ES/BECCA MARIA Report: EXAMINATION: MRI NECK SPINE W/O DYE HISTORY pain COMPARISON: No relevant comparison available. TECHNIQUE: Multiplanar, multisequence MRI images of the cervical spine without intravenous contrast. FINDINGS: There is reversal of the cervical curvature. No subluxation. The bone marrow signal is normal. Mild disc space narrowing at C6-C7 and disc desiccation at C2-C3 through C6-C7. Craniocervical junction is normal. There is no evidence for a Chiari I malformation. The cervical cord appears within normal limits in size and contour. There is no convincing abnormal signal in the cervical spinal cord. C2-C3, C3-C4, C4-C5: Normal. C5-C6: Tiny central disc protrusion with an annular fissure without spinal canal or foraminal stenosis. C6-C7: Minimal disc bulge with a superimposed small right paracentral disc protrusion. There is minimal thecal sac effacement. No spinal canal or foraminal stenosis. C7-T1: No spinal canal or significant neural foraminal stenosis. Multiple mildly prominent lymph nodes in the soft tissues of the neck bilaterally, nonspecific though could be reactive lymph nodes given patient's age. Impression: 1. There are small/tiny disc protrusions at C5-C6 and C6-C7. There is no significant central spinal canal or foraminal stenosis. 2. No disc herniations in the remaining cervical spine. No spinal canal or foraminal stenosis in the remaining cervical spine. 3. Reversal of the cervical curvature. This is nonspecific, though could be positional. There is no subluxation. DIAGNOSIS CODE: #DC 1000: NO ALERT REQUIRED Finalized by Becca Lino Signed Date Time - 05/12/2024 15:01 Primary Diagnostic Code: NO ALERT REQUIRED Primary Interpreting Staff: BECCA MARIA, RADIOLOGIST (Weir Fisher) /BECCA [facility] Encounter Notes: All associated encounter notes This section contains the clinical notes associated to the Encounter. Date/Time Encounter Note(s) Provider Source Apr 09, 2024 01:23 PM PHYSICAL THERAPY N OTE: LOCAL TITLE: PM&RS PT DAILY ACTIVITY NOTE STANDARD TITLE: PHYSICAL THERAPY NOTE DATE OF NOTE: APR 09, 2024@13:23 ENTRY DATE: APR 09, 2024@13:23:48 AUTHOR: [facility] EXP COSIGNER: URGENCY: STATUS: COMPLETED Dx Code; Chronic LBP PT dx; Chronic lumbar mobility/coordination impairments without radiculopathy Outpatient PT Tx #1 PT POC; 03/21/24-> S: 28 yo who returns to Outpatient Physical Therapy for additional care. When I do the stretches, it does go to the center every time. Reports having difficulty completing daily HEP due to depressive episodes . Low motivation reported and client has not been able to use a lumbar roll for sitting posture corrections. I did sit my seat up in the car. It is no longer reclined. Agreeable to the following Outpatient PT interventions. Present Symptoms; Client denies any central lumbar symptoms 2/10 L lateralization Sharp tightness 0/[address] Final levels; NEW 1/10 central lumbar Dull ache' 0/10 L lateralization Sharp tightness 0/[address] O: Gait; Indep without AD. Manual Therapy; Prone Thoracic P/a Mobs (II-III) 10 reps each segment Hypomobility throughout Cavitations at T5-T7 levels Exercise Prescription; (Issued in written form) 1. Prone/NIKO; 2. PPU; 3. STRICT posture corrections; Firm chairs, lumbar roll Added; 4. PPU with pt generated OP; 15 reps, hold 5-10 seconds. 35 mins Ther ex x 1 Manual Therapy x 1 A: Confirmed thoracic and lumbar hypomobility responsive to extension bias ROM, posture corrections and manual p/a mobilizations. Centralization observed with PPU movements and client was progressed into PPU with pt generated overpressure. Education offered regarding importance of daily HEP efforts for increased mobility interventions. He returned all above instructions. P: Extended PT POC x 1 visit RTC placed for 14-21 days. Continue with extension bias ther ex, posture correction and patient education. Inclusion of stepper next visit and update on HEP efforts. Review SIVAKUMAR and lumbar ROM next visit. /deanna/ [facility] PHYSICAL THERAPIST Signed: 04/09/2024 15:33 [facility]
--- OUTSIDE RECORDS SUMMARY | 2024-04-21 05:30 | XMS_ITS | Encounter Summary ---
Author Name Department of [place] ([place] Organization Department of [facility] [place] ([place]) Address [address] [place] [address] Care Team Providers Care Medical Billing Specialist Name Role Phone ROSARIO ESCALERA Primary Care Provider [facility] Insurance Providers: All [...] section includes the information on record at [place] for the Encounter. Date/Time Encounter Type Encounter Description Reason Provider Source Apr 21, 2024 09:30 AM SELF-MGMT EDUC & TRAIN 1 PT [facility] - IND ICD-10-CM F60.9 Personality disorder, unspecified ADDIS CLOUD Encounter Template Text not used by [place] Assessments - Encounter Diagnoses This section includes the primary and secondary diagnoses documented for the Encounter. Date/Time Primary/Secondary Diagnosis Diagnosis Name Provider Source Apr 21, 2024 11:06 AM PRIMARY Personality disorder, unspecified ADDIS CLOUD [facility] Apr 21, 2024 11:06 AM SECONDARY Major depressive disorder, single episode, unspecified ADDIS CLOUD [facility] Apr 21, 2024 11:06 AM SECONDARY Post-traumatic stress disorder, chronic ADDIS CLOUD [facility] Apr 21, 2024 11:06 AM SECONDARY Primary insomnia PEDRO LUISADDIS [facility] Plan of Treatment: Future Appointments (+ 6 months) and Future Tests (+/- 45 days) The Plan of Treatment section includes future care activities for the patient from [facility] [place] [facility] This section includes future appointments and future orders which are active, pending or scheduled. Future Appointments This section includes appointments that were scheduled to occur 6 months from the date of the Encounter, up to a maximum of 20 appointments. The data comes from all [place] treatment [facility]. Appointment Date/Time Appointment Type Appointme nt Facility Name Apr 29, 2024 01:30 PM AMBULATORY - PSYCHIATRY CL [facility] May 02, 2024 02:30 PM AMBULATORY - REHAB MEDICIN E [facility] May 08, 2024 01:00 PM AMBULATORY - NEUROLOGY [facility] May 09, 2024 03:00 PM AMBULATORY - NONE [facility] May 09, 2024 03:57 PM AMBULATORY - NONE [facility] May 12, 2024 10:00 AM AMBULATORY - PSYCHIATRY CL [facility] May 14, 2024 10:30 AM AMBULATORY - PSYCHIATRY CL [facility] May 26, 2024 01:00 PM AMBULATORY - PSYCHIATRY CL [facility] May 26, 2024 01:30 PM AMBULATORY - PSYCHIATRY CL [facility] Jun 04, 2024 08:30 AM AMBULATORY - REHAB MEDICIN E [facility] Jun 06, 2024 11:30 AM AMBULATORY - PSYCHIATRY CL [facility] Jun 09, 2024 01:00 PM AMBULATORY - PSYCHIATRY CL [facility] Jun 19, 2024 09:45 AM AMBULATORY - NONE [facility] Jun 25, 2024 09:00 AM AMBULATORY - PSYCHIATRY CL [facility] Jun 25, 2024 09:30 AM AMBULATORY - NONE [facility] [facility] Jun 25, 2024 02:00 PM AMBULATORY - NONE [facility] [facility] Jul 03, 2024 01:00 PM AMBULATORY - PSYCHIATRY CL [facility] Jul 11, 2024 09:00 AM AMBULATORY - SURGERY [facility] Jul 11, 2024 01:00 PM AMBULATORY - PSYCHIATRY CL [facility] Jul 15, 2024 03:00 PM AMBULATORY - SURGERY [facility] Active, Pending, and Scheduled Orders This section includes a listing of several types of active, pending, and scheduled orders, including clinic medications orders, diagnostic test orders, procedure orders and consult orders; where the start date of the order is 45 days before the date of the Encounter or 45 days after the date of theEncounter. The data comes from all [facility]. Test Date/Time Test Type Test Details Facility Name May 21, 2024 12:00 AM Laboratory - Chemi stry Order URINALYSIS URINE SP ONCE [facility] Social History: Smoking Status (Most current) and Tobacco Use (All prior to encounter date) This section includes the most current, and the historical, smoking and tobacco- related health factors from the [place] facility where the Encounter took place. Current Smoking Status This section includes the most current smoking, or tobacco-related health factor, from the [place] facility where the Encounter took place. Date/Time Current Smoking Status Comment Facil ity May 18, 2023 02:00 PM [place]-[facility] Tobacco Use History This section includes a history of the smoking, or tobacco-related health factors, that were collected on or before the date of the Encounter. The data comes from the [place] facility where the Encounter took place. Date/Time Smoking Status/Tobacco Use Comment F acility May 18, 2023 02:00 PM NV-TOBACCO QUIT 1 TO < 5 YRS [facility] Advance Directives: All historical and current Section Date Range: From patient's date of to the date document was created. This section includes ALL of a patient's completed or amended [place] Advance and Rescinded Directives. The entries below indicate that a directive exists for the patient, but an actual copy is not included with this document. The data comes from all [facility]. Date Advance Directives Provider Source October 22, 2023 ADVANCE DIRECTIVE DISCUSSION SABINA NAIR [facility] Radiology Reports: +/- 30 days of [...] the Encounter. The data comes from all [facility] treatment facilities. Date/Time Radiology Report Provider Source May 09, 2024 03:59 PM LUMBOSACRAL SPINE, 2 OR 3 VIEWS: AMRION ZHENG [id number] -1995 M Exm Date: MAY 09, 2024@15:59 Req Phys: MandieASHERAVNI [place] JOSE Zaragoza Loc: [facility] MRI MOBILE 1 (Req'g Loc) Img Loc: [place] D[place] Service: Unknown [facility] [place] [address] (Case [id number] COMPLETE)LUMBOSACRAL SPINE, 2 OR 3 VIEWS (RAD Detailed) CPT:28319 Reason for Study: pain Clinical History: [address] [address] Report Status: Verified Date Reported: MAY 16, 2024 Date Verified: MAY 16, 2024 Farm Manager E-Sig:/ES/JEFF SADLER Report: Lumbar spine: AP, lateral [...] Code: Primary Interpreting Staff: JEFF SADLER, RADIOLOGIST (Farm Manager) /JEFF LEO CB May 09, 2024 03:59 PM CERVICAL SPINE WIT H FLEXION AND EXTENSION: MARION ZHENG [id number] -1995 M Exm Date: MAY 09, 2024@15:59 Req Phys: AVNI BARRON Loc: [place] MRI MOBILE 1 (Req'g Loc) Img Loc: [place] D[place] Service: [place] [address] (Case [id number] COMPLETE)CERVICAL SPINE WITH FLEXION AND E(RAD Detailed) CPT:09458 Reason for Study: pain Clinical History: [address], [place] [address] Report Status: Verified Date Reported: MAY 16, 2024 Date Verified: MAY 16, 2024 Farm Manager E-Sig:/ES/JEFF SADLER Report: Cervical spine: AP, lateral, [...] Code: Primary Interpreting Staff: JEFF SADLER, RADIOLOGIST (Farm Manager) /JEFF LEO [facility] May 09, 2024 03:05 PM MRI CERVICAL SPINE W/O CONTRAST: MARION ZHENG [id number] -1995 Ex Date: MAY 09, 2024@15:05 Req Phys: AVNI BARRON Loc: [place] PAIN SPINE 6 (Req'g Loc Img Loc: [place] MRI CONTRACT READ Service: [place] [address] (Case [id number] COMPLETE)MRI CERVICAL SPINE W/O CONTRAST (MRI Detailed) CPT:27206 CPT Modifiers : TC TECHNICAL COMPONENT Reason for Study: pain Clinical History: History of Trauma: No SYMPTOMS AND SIGNS: Duration Of Symptoms:> 12 weeks pain Plain films obtained ([facility] or Outside Hospital): Yes No Impressions found Risks and benefits of the procedure were discussed with the patient. The patient did understand and agree with the treatment plan. Report Status: Verified Date Reported: MAY 12, 2024 Date Verified: MAY 12, 2024 Farm Manager E-Sig:/DEANNA/BECCA MARIA Report: EXAMINATION: MRI NECK SPINE W/O [...] REQUIRED Primary Interpreting Staff: BECCA MARIA, RADIOLOGIST (Farm Manager) /BECCA STERLING [facility] May 09, 2024 03:05 PM MRI LUMBAR SPINE W /O CONTRAST: MARCEMARION ISAI [id number] -1995 M Exm Date: MAY 09, 2024@15:05 Req Phys: AVNI BARRON Pat Loc: [place] PAIN SPINE MD 6 (Req'g Loc Img Loc: [place] MRI CONTRACT READ Service: [place] [address] (Case [id number] COMPLETE)MRI LUMBAR SPINE W/O CONTRAST (MRI Detailed) CPT:68265 CPT Modifiers : TC TECHNICAL COMPONENT Reason for Study: pain Clinical History: History of Trauma: No SYMPTOMS AND SIGNS: Duration Of Symptoms:> 12 weeks pain Plain films obtained ([facility] or Outside Hospital): Yes No Impressions found Risks and benefits of the procedure were discussed with the patient. The patient did understand and agree with the treatment plan. Report Status: Verified Date Reported: MAY 12, 2024 Date Verified: MAY 12, 2024 Farm Manager E-Sig:/DEANNA/BECCA MARIA Report: EXAMINATION: MRI LUMBAR SPINE W/O [...] REQUIRED Primary Interpreting Staff: BECCA MARIA, RADIOLOGIST (Farm Manager) /BECCA STRELING [facility] Encounter Notes: All associated encounter notes This section contains the clinical notes associated to the Encounter. Date/Time Encounter Note(s) Provider Source Apr 21, 2024 09:30 AM MENTAL HEALTH NOTE : LOCAL TITLE: EVIDENCE BASED PSYCHOTHERAPY NOTE (T) STANDARD TITLE: MENTAL HEALTH NOTE DATE OF NOTE: APR 21, 2024@09:30 ENTRY DATE: APR 21, 2024@09:31:05 AUTHOR: ADDIS CLOUD COSIGNER: URGENCY: STATUS: COMPLETED DBT Session #3 Mindfulness Skills Session Time and Duration: 9:27 am - 10:00 am 33 minutes assessment: 02.09.2023 DIAGNOSIS: PTSD (SC); Insomnia; Depression; Personality D/O, Cluster B traits PATIENT'S STRENGTHS/ABILITIES: Self Identified: moved to new house Provider Identified: able to tolerate grief support groups, new move stressors w/o SI Active partnership in [employer] PATIENT'S ABILITIES 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 PROGRESS TOWARDS GOAL: Minimal progress MH clinical reminders due: None TYPES OF THERAPY: Individual METHOD OF THERAPY: DBT Skills building DBT Skills Training: Module I Mindfulness Skills; Manual Handouts & Worksheets Handouts 4A-4C [place] is 28 y/o male w/100% SC being treated in Specialty [facility] for therapy. He presents on time to scheduled in person therapy appt. He did not work on DBT HW sheets, but reports use of mindfulness overall. He shares discussion from roommates that d/t his lack of involvement in home and childcare past few weeks/months, they are considering moving out if he does not make changes. He reports this has been incentive for him and he has been reducing screen time and more active w/others. [place] reports he is able to meet expenses if they were to move out, but hopeful they will remain w/changes noted. Review of options for more intensive care w/[facility], PTSD Skills group and Depression EBPs to help promote continued routine and mgmt. of MH symptoms. He identifies he and roommates discussed possibility of too much therapy as cause for his depression d/t triggers w/trauma/grief. He confirms wanting to continue w/DBT & declines need for any additional supports at this time. They review his use of Logical Mind as he is encouraged to identify emotional responses to increase in routine and involvement w/others. He is eventually able to identify guilt which is connected to his spouse not being in the new home he purchased. He was managing thru use of screen time. DBT Manual utilized. Discussion about Mindfulness & Observe handouts. Mindfulness exercises reviewed and he is willing to try daily. Review of role of mindfulness and distress tolerance. would like to continue w/DBT appts as scheduled. No other needs at this time. [place] is calm and stable at the end of the session with no SI/HI noted. INTERVENTIONS: Assessed mental health status and reviewed events since last session. SW assesses SI/HI. SW reviews the goals for session. SW provides education and support about MH diagnosis and support options available. SW offers emotional support and uses active listening. SW reviews DBT Skills building manual and reviews concepts w/[place] today. SW uses [place] to review DBT, Depression, PTSD support group, [facility] Ordnance Technician support and[facility] 'S PARTICIPATION: x Actively participated in discussion [...] plan from Mar 23, 2023. 5. Mindfulness Wolf Mind/Observation exercises daily MENTAL STATUS EXAM: ORIENTATION AND CONSCIOUSNESS: Alert and attentive, Alert and oriented x 3 APPEARANCE AND BEHAVIOR: Cooperative and reasonable, walks independently, well kempt SPEECH: Normal rate/rhythm LANGUAGE: Intact MOOD AND AFFECT: Mood Depressed, Affect w/range PERCEPTUAL DISTURBANCE (Hallucinations, Illusions): None THOUGHT PROCESS AND ASSOCIATION: Normal, coherent THOUGHT CONTENT (delusions, Obsessions, etc.): No unusual thought content MEMORY: Intact SUICIDAL OR VIOLENT IDEATION: He denies SI/HI now or since last appt. Safety plan developed on Mar. presents as [...] aware to contact the clinic or the [place]'s Crisis Line with concerns prior to the next scheduled visit. Evidence-Based Psychotherapy Suicide Prevention and Safety Planning Dialectical Behavior Therapy (DBT) The patient continues to engage in DBT. Whole Health approaches used during this visit: [...] to restore the spirit. /deanna/ ADDIS CLOUD POWDER CORE TESTER-SUPV CLINICIAL IT ADMINISTRATIVE ASSISTANT Signed: 04/21/2024 11:28 ADDIS CLOUD [facility]
--- OUTSIDE RECORDS SUMMARY | 2024-04-21 11:00 | XMS_ITS ---
Author Name Department of [place] Organization [place] Address [address] [place] [address] Care Team Providers Care Press Pipe Inspector Name Role Phone ROSARIO ESCALERA Primary [...] Description Reason Provider Source Apr 21, 2024 03:00 PM NURSE FIRST ASSIST NUCLEAR EQUIPMENT OPERATOR INDIVIDU NURSE FIRST ASSIST SERVICE - INDIVIDUAL ICD-10-CM Z71.81 Spiritual or latter-day counseling BLADIMIR VENCES Encounter Template Text not used by [place] Assessments - Encounter Diagnoses This section includes the primary and secondary diagnoses documented for the Encounter. Date/Time Primary/Secondary Diagnosis Diagnosis Name Provider Source Apr 21, 2024 04:37 PM PRIMARY Spiritual or latter-day counseling BLADIMIR VENCES [facility] Plan of Treatment: Future Appointments (+ 6 months) and Future Tests (+/- 45 days) The Plan of Treatment section includes future care activities for the patient from all [place] treatmentfacilities. This section includes future appointments and future orders which are active, pending or scheduled. Future Appointments This section includes appointments that were scheduled to occur 6 months from the date of the Encounter, up to a maximum of 20 appointments. The data comes from all [facility]. Appointment Date/Time Appointment Type Appointme nt Facility Name Apr 29, 2024 01:30 PM AMBULATORY - PSYCHIATRY CL [facility] May 02, 2024 02:30 PM AMBULATORY - REHAB MEDICIN E [facility] May 08, 2024 01:00 PM AMBULATORY - NEUROLOGY [facility] May 09, 2024 03:00 PM AMBULATORY - NONE [facility] [facility] May 09, 2024 03:57 PM AMBULATORY - NONE [facility] May 12, 2024 10:00 AM AMBULATORY - PSYCHIATRY [facility] May 14, 2024 10:30 AM AMBULATORY - PSYCHIATRY [facility] May 26, 2024 01:00 PM AMBULATORY - PSYCHIATRY CL [facility] May 26, 2024 01:30 PM AMBULATORY - PSYCHIATRY [facility] Jun 04, 2024 08:30 AM AMBULATORY - REHAB MEDICIN E [facility] Jun 06, 2024 11:30 AM AMBULATORY - PSYCHIATRY CL [facility] Jun 09, 2024 01:00 PM AMBULATORY - PSYCHIATRY CL [facility] Jun 19, 2024 09:45 AM AMBULATORY - NONE [facility] Jun 25, 2024 09:00 AM AMBULATORY - PSYCHIATRY [facility] Jun 25, 2024 09:30 AM AMBULATORY - NONE [facility] Jun 25, 2024 02:00 PM [facility] Jul 03, 2024 01:00 PM AMBULATORY - PSYCHIATRY [facility] Jul 11, 2024 09:00 AM AMBULATORY - SURGERY [facility] Jul 11, 2024 01:00 PM AMBULATORY - PSYCHIATRY [facility] Jul 15, 2024 03:00 PM AMBULATORY - SURGERY [facility] Active, Pending, and Scheduled Orders This section includes a listing of several types of active, pending, and scheduled orders, including clinic medications orders, diagnostic test orders, procedure orders and consult orders; where the start date of the order is 45 days before the date of the Encounter or 45 days after the date of theEncounter. The data comes from all [facility]. Test Date/Time Test Type Test Details Facility Name May 21, 2024 12:00 AM Laboratory - Chemi stry Order URINALYSIS URINE SP [facility] Social History: Smoking Status (Most current) [...] 10:00 AM TOBACCO FORMER USER [facility] Advance Directives: All historical and current Section Date Range: From patient's date of to the date document was created. This section includes ALL of a patient's completed or amended [place] Advance and Rescinded Directives. The entries below indicate that a directive exists for the patient, but an actual copy is not included with this document. The data comes from all [place] facilities. Date Advance Directives Provider Source October 22, 2023 ADVANCE DIRECTIVE DISCUSSION SABINA NAIR [facility] Radiology Reports: +/- 30 days of [...] the Encounter. The data comes from all [place] treatment facilities. Date/Time Radiology Report Provider Source May 09, 2024 03:59 PM LUMBOSACRAL SPINE, 2 OR 3 VIEWS: MARION ZHENG [id number] -1995 M Exm Date: MAY 09, 2024@15:59 Req Phys: AVNI BARRON Loc: [facility] MRI MOBILE 1 (Req'g Loc) Img Loc: [place] [facility] Service: [place] [address] (Case [id number] COMPLETE)LUMBOSACRAL SPINE, 2 OR 3 VIEWS (RAD Detailed) CPT:18073 Reason for Study: pain Clinical History: [address] [place], [place] [address] Report Status: Verified Date Reported: MAY 16, 2024 Date Verified: MAY 16, 2024 Sample Color Maker E-Sig:/DEANNA/JEFF SADLER Report: Lumbar spine: AP, lateral and [...] Code: Primary Interpreting Staff: JEFF SADLER, RADIOLOGIST (Sample Color Maker) /JEFF LEO [facility] May 09, 2024 03:59 PM CERVICAL SPINE WIT H FLEXION AND EXTENSION: MARION ZHENG [id number] -1995 M Exm Date: MAY 09, 2024@15:59 Req Phys: AVNI BARRON Loc: PR[place] MRI MOBILE 1 (Req'g Loc) Img Loc: [place] [facility] Service: [place] [address] (Case [id number] COMPLETE)CERVICAL SPINE WITH FLEXION AND E(RAD Detailed) CPT:18519 Reason for Study: pain Clinical History: [address], [place] [address] Report Status: Verified Date Reported: MAY 16, 2024 Date Verified: MAY 16, 2024 Sample Color Maker E-Sig:/DEANNA/JEFF SADLER Report: Cervical spine: AP, lateral, open [...] Code: Primary Interpreting Staff: JEFF SADLER, RADIOLOGIST (Sample Color Maker) /JEFF LEO [facility] May 09, 2024 03:05 PM MRI LUMBAR SPINE W /O CONTRAST: MARION ZHENG [id number] -1995 M Exm Date: MAY 09, 2024@15:05 Req Phys: AVNI BARRON Loc: [place] PAIN SPINE 6 (Req'g Loc Img Loc: [place] MRI CONTRACT READ Service: [place] [address] (Case [id number] COMPLETE)MRI LUMBAR SPINE W/O CONTRAST (MRI Detailed) CPT:80395 CPT Modifiers : TC TECHNICAL COMPONENT Reason for Study: pain Clinical History: History of Trauma: No SYMPTOMS AND SIGNS: Duration Of Symptoms:> 12 weeks pain Plain films obtained ([facility] or Outside Hospital): Yes No Impressions found Risks and benefits of the procedure were discussed with the patient. The patient did understand and agree with the treatment plan. Report Status: Verified Date Reported: MAY 12, 2024 Date Verified: MAY 12, 2024 Sample Color Maker E-Sig:/ES/BECCA MARIA Report: EXAMINATION: MRI LUMBAR SPINE [...] REQUIRED Primary Interpreting Staff: BECCA MARIA, RADIOLOGIST (Sample Color Maker) /BECCA STERLING [facility] May 09, 2024 03:05 PM MRI CERVICAL SPINE W/O CONTRAST: MARION ZHENG [id number] -1995 M Exm Date: MAY 09, 2024@15:05 Req Phys: AVNI BARRON Loc: [place] PAIN SPINE MD 6 (Req'g Loc Img Loc: [place] MRI CONTRACT READ [place]: [place] [address] (Case [id number] COMPLETE)MRI CERVICAL SPINE W/O CONTRAST (MRI Detailed) CPT:56290 CPT Modifiers : TC TECHNICAL COMPONENT Reason for Study: pain Clinical History: History of Trauma: No SYMPTOMS AND SIGNS: Duration Of Symptoms:> 12 weeks pain Plain films obtained ([facility] or Outside Hospital): Yes No Impressions found Risks and benefits of the procedure were discussed with the patient. The patient did understand and agree with the treatment plan. Report Status: Verified Date Reported: MAY 12, 2024 Date Verified: MAY 12, 2024 Sample Color Maker E-Sig:/ES/BECCA MARIA Report: EXAMINATION: MRI NECK SPINE [...] REQUIRED Primary Interpreting Staff: BECCA MARIA, RADIOLOGIST (Sample Color Maker) /BECCA STERLING [facility] Encounter Notes: All associated encounter notes This section contains the clinical notes associated to the Encounter. Date/Time Encounter Note(s) Provider Source Apr 21, 2024 03:00 PM PASTORAL CARE NOTE : LOCAL TITLE: NURSE FIRST ASSIST NOTE (T) STANDARD TITLE: PASTORAL CARE NOTE DATE OF NOTE: APR 21, 2024@15:00 ENTRY DATE: APR 21, 2024@16:29:56 AUTHOR: BLADIMIR VENCES COSIGNER: URGENCY: STATUS: COMPLETED logged into [facility] for individual grief support appointment and was open/receptive. [place] shared experience [id number] with son Shoaib at Aunt's home & staying in the area so son could spend time with grandpa. explored the challenges in his relationship with his father & history of father-son no- relationship. explored his own concerns about his relationship with his son. named his quick to anger ... lack of interest in his interests at this stage . struggled to express the qualities of Cindy that live in him and may help him 1) connect with her 2) find meaning in parenting. [place] explored recent conversations with roommates and providers that have helped name feeling guilt for being happy about anything moving forward. wrestles with if I deserve to be happy ...it feels like forgetting her. revisited grief + guilt + feeling of betrayal. [place] named feeling able to better articulate what he would like going forward in his plan of care in mental health. Interventions: presence, active listening, reflective questions, grief processing, guilt in grief, meaning/purpose, quest for control, unhealthy coping tools, encouragement, validation, support. Plan: [place] requested appointment by [facility] for 05/12/24 @ 3pm. expressed gratitude. requested to be REMOVED from [facility] link & was reminded he is welcome to rejoin, if desired. /deanna/ CHAPLAIN BLADIMIR CARLIN Signed: 04/21/2024 16:37 BLADIMIR VENCES [facility]
--- OUTSIDE RECORDS SUMMARY | 2024-04-29 09:30 | XMS_ITS | Encounter Summary ---
Author Name [facility] [place] Organization [facility] [place] Address [address] [place] [address] Care Team Providers Care Court Interpreter Name Role Phone ROSARIO ESCALERA Primary Care [...] section includes the information on record at [place] for the Encounter. Date/Time Encounter Type Encounter Description Reason Provider Source Apr 29, 2024 01:30 PM MTMS BY LISA LÓPEZ [facility] ICD-10-CM F43.12 Post-traumatic stress disorder, chronic VALENTNIA TENORIO Encounter Template Text not used by [place] Assessments - Encounter Diagnoses This section includes the primary and secondary diagnoses documented for the Encounter. Date/Time Primary/Secondary Diagnosis Diagnosis Name Provider Source Apr 30, 2024 04:27 PM PRIMARY Post-traumatic stress disorder, chronic VALENTINA TENORIO CB Apr 30, 2024 04:27 PM SECONDARY Major depressive disorder, single episode, unspecified VALENTINA TENORIO CB Apr 30, 2024 04:27 PM SECONDARY Personality disorder, unspecified WILLBORN,VALENTINA T [facility] Apr 30, 2024 04:27 PM SECONDARY Primary insomnia VALENTINA TENORIO CB Apr 30, 2024 04:27 PM SECONDARY Suicidal ideations VALENTINA TENORIO [facility] Plan of Treatment: Future Appointments (+ 6 months) and Future Tests (+/- 45 days) The Plan of Treatment section includes future care activities for the patient [facility] [place] [facility] This section includes future appointments and future orders which are active, pending or scheduled. Future Appointments This section includes appointments that were scheduled to occur 6 months from the date of the Encounter, up to a maximum of 20 appointments. The data comes from all [facility]. Appointment Date/Time Appointment Type Appointme nt Facility Name May 02, 2024 02:30 PM AMBULATORY - REHAB MEDICIN E [facility] May 08, 2024 01:00 PM AMBULATORY - NEUROLOGY [facility] May 09, 2024 03:00 PM AMBULATORY - NONE [facility] May 09, 2024 03:57 PM AMBULATORY - NONE [facility] May 12, 2024 10:00 AM AMBULATORY - PSYCHIATRY CL [facility] May 14, 2024 10:30 AM AMBULATORY - PSYCHIATRY CL [facility] May 26, 2024 01:00 PM AMBULATORY - PSYCHIATRY CL [facility] May 26, 2024 01:30 PM AMBULATORY - PSYCHIATRY CL [facility] Jun 04, 2024 08:30 AM AMBULATORY - REHAB MEDICIN E [facility] Jun 06, 2024 11:30 AM AMBULATORY - PSYCHIATRY CL [facility] Jun 09, 2024 01:00 PM AMBULATORY - PSYCHIATRY CL [facility] Jun 19, 2024 09:45 AM AMBULATORY - NONE [facility] Jun 25, 2024 09:00 AM AMBULATORY - PSYCHIATRY CL [facility] Jun 25, 2024 09:30 AM [facility] - NONE [facility] Jun 25, 2024 02:00 PM [facility]ORY - NONE [facility] Jul 03, 2024 01:00 PM AMBULATORY - PSYCHIATRY CL [facility] Jul 11, 2024 09:00 AM AMBULATORY - SURGERY [facility] Jul 11, 2024 01:00 PM AMBULATORY - PSYCHIATRY CL [facility] Jul 15, 2024 03:00 PM AMBULATORY - SURGERY [facility] Jul 17, 2024 01:00 PM AMBULATORY SURGERY [facility] Active, Pending, and Scheduled Orders This section includes a listing of several types of active, pending, and scheduled orders, including clinic medications orders, diagnostic test orders, procedure orders and consult orders; where the start date of the order is 45 days before the date of the Encounter or 45 days after the date of theEncounter. The data comes from all [place] treatment facilities. Test Date/Time Test Type Test Details Facility Name May 21, 2024 12:00 AM Laboratory - Chemi stry Order URINALYSIS URINE SP ONCE [facility] Social History: Smoking Status (Most current) and Tobacco Use (All prior to encounter date) This section includes the most current, and the historical, smoking and tobacco- related health factors from the [place] facility where the Encounter took place. Current Smoking Status This section includes the most current smoking, or tobacco-related health factor, from the [place] facility where the Encounter took place. Date/Time Current Smoking Status Comment Facil ity May 18, 2023 02:00 PM [place] [facility] Tobacco Use History This section includes a history of the smoking, or tobacco-related health factors, that were collected on or before the date of the Encounter. The data comes from the [place] facility where the Encounter took place. Date/Time Smoking Status/Tobacco Use Comment F acility May 18, 2023 02:00 PM [place]-TOBACCO QUIT 1 TO < 5 YRS [facility] Advance Directives: All historical and current Section Date Range: From patient's date of to the date document was created. This section includes ALL of a patient's completed or amended [place] Advance and Rescinded Directives. The entries below indicate that a directive exists for the patient, but an actual copy is not included with this document. The data comes from all [place] facilities. Date Advance Directives Provider Source October 22, 2023 ADVANCE DIRECTIVE DISCUSSION SABINA NAIR [facility] Radiology Reports: +/- 30 days [...] the Encounter. The data comes from all [place] treatment facilities. Date/Time Radiology Report Provider Source May 09, 2024 03:59 PM LUMBOSACRAL SPINE, 2 OR 3 VIEWS: MARION ZHENG [id number] -1995 M Exm Date: MAY 09, 2024@15:59 Req Phys: AVNI BARRON Loc: PRM MRI MOBILE 1 (Req'g Loc) Img Loc: [facility] Service: [place] [address] (Case [id number] COMPLETE)LUMBOSACRAL SPINE, 2 OR 3 VIEWS (RAD Detailed) CPT:05056 Reason for Study: pain Clinical History: [address] [id number] Report Status: Verified Date Reported: MAY 16, 2024 Date Verified: MAY 16, 2024 Behavioral Health Clinician E-Sig:/ES/JEFF SADLER Report: Lumbar spine: AP, lateral [...] Code: Primary Interpreting Staff: JEFF SADLER, RADIOLOGIST (Behavioral Health Clinician) /JEFF LEO CB May 09, 2024 03:59 PM CERVICAL SPINE WIT H FLEXION AND EXTENSION: MARION ZHENG [id number] -1995 M Exm Date: MAY 09, 2024@15:59 Req Phys: AVNI BARRON Loc: PRM MRI MOBILE 1 (Req'g Loc) Img Loc: [facility] Service: Unknown [facility] [address] (Case [id number] COMPLETE)CERVICAL SPINE WITH FLEXION AND E(RAD Detailed) CPT:05505 Reason for Study: pain Clinical History: [address], [place] [address] Report Status: Verified Date Reported: MAY 16, 2024 Date Verified: MAY 16, 2024 Behavioral Health Clinician E-Sig:/ES/JEFF SADLER Report: Cervical spine: AP, lateral, [...] Code: Primary Interpreting Staff: JEFF SADLER, RADIOLOGIST (Behavioral Health Clinician) /CHAND[facility]AD[facility]ERWINTERDI[facility] May 09, 2024 03:05 PM MRI LUMBAR SPINE W /O CONTRAST: MARION ZHENG [id number] -1995 M Exm Date: MAY 09, 2024@15:05 Req Phys: AVNI BARRON Loc: HALIE PAIN SPINE 6 (Req'g Loc Img Loc: [facility] MRI CONTRACT READ [facility] [place] [address] (Case [id number] COMPLETE)MRI LUMBAR SPINE W/O CONTRAST (MRI Detailed) CPT:60402 CPT Modifiers : TC TECHNICAL COMPONENT Reason for Study: pain Clinical History: History of Trauma: No SYMPTOMS AND SIGNS: Duration Of Symptoms:> 12 weeks pain Plain films obtained ([facility] or Outside Hospital): Yes No Impressions found Risks and benefits of the procedure were discussed with the patient. The patient did understand and agree with the treatment plan. Report Status: Verified Date Reported: MAY 12, 2024 Date Verified: MAY 12, 2024 Behavioral Health Clinician E-Sig:/ES/BECCA MARIA Report: EXAMINATION: MRI LUMBAR SPINE [...] REQUIRED Primary Interpreting Staff: BECCA MARIA, RADIOLOGIST (Behavioral Health Clinician) /BECCA STERLING CB May 09, 2024 03:05 PM MRI CERVICAL SPINE W/O CONTRAST: MARION ZHENG [id number] -1995 M Exm Date: MAY 09, 2024@15:05 Req Phys: AVNI BARRON Loc: HALIE PAIN SPINE 6 (Req'g Loc Img Loc: [facility] MRI CONTRACT READ Service: [place] [place] [place] [address] (Case [id number] COMPLETE)MRI CERVICAL SPINE W/O CONTRAST (MRI Detailed) CPT:53012 CPT Modifiers : TC TECHNICAL COMPONENT Reason for Study: pain Clinical History: History of Trauma: No SYMPTOMS AND SIGNS: Duration Of Symptoms:> 12 weeks pain Plain films obtained ([facility] or Outside Hospital): Yes No Impressions found Risks and benefits of the procedure were discussed with the patient. The patient did understand and agree with the treatment plan. Report Status: Verified Date Reported: MAY 12, 2024 Date Verified: MAY 12, 2024 Behavioral Health Clinician E-Sig:/DEANNA/BECCA MARIA Report: EXAMINATION: MRI NECK SPINE [...] REQUIRED Primary Interpreting Staff: BECCA MARIA, RADIOLOGIST (Behavioral Health Clinician) /BECCA STERLING [facility] Encounter Notes: All associated encounter notes This section contains the clinical notes associated to the Encounter. Date/Time Encounter Note(s) Provider Source Apr 30, 2024 04:28 PM PHARMACY MEDICATIO N MGT NOTE: LOCAL TITLE: ANTIDEPRESSANT (BEERS) MEDICATION REQUEST NOTE (T) STANDARD TITLE: PHARMACY MEDICATION MGT NOTE DATE OF NOTE: APR 30, 2024@16:28 ENTRY DATE: APR 30, 2024@16:28:17 AUTHOR: ABAD TENORIO: URGENCY: STATUS: COMPLETED [place] Criteria Antidepressants Note Medication education and counseling for Amitriptyline TAB was provided to the patient/caregiver based on [...] certify that the patient/caregiver understood my education instructions. /deanna/ ABAD TENORIO CLINICAL BACK TACKER Signed: 04/30/2024 16:28 ABAD TENORIO [facility] Apr 29, 2024 01:31 PM PRIMARY CARE NURSI NG NOTE: LOCAL TITLE: OUTPATIENT NURSING INTAKE NOTE (T) STANDARD TITLE: PRIMARY CARE NURSING NOTE DATE OF NOTE: APR 29, 2024@13:31 ENTRY DATE: APR 29, 2024@13:31:25 AUTHOR: BLANK MENG EXP COSIGNER: URGENCY: STATUS: COMPLETED Hemoglobin A1C Results: [...] problems with drugs and/or alcohol? No 5. [place] [facility] pocket card was provided to patient. No/patient declined Last [facility] ('s [place] [place] [place]): 12/27/2023 Personal Health Plan [place] [place] (MAP) pain management /es/ BLANK MENG LICENSED PRACTICAL NURSE Signed: 04/29/2024 13:31 BLANK MENG [facility] Apr 29, 2024 12:55 PM PSYCHIATRY NOTE: LOCAL TITLE: [facility] PSYCHIATRY NOTE (T) STANDARD TITLE: PSYCHIATRY NOTE DATE OF NOTE: APR 29, 2024@12:55 ENTRY DATE: APR 29, 2024@12:55:27 AUTHOR: ABAD TENORIO COSIGNER: URGENCY: STATUS: COMPLETED PSYCHIATRIC EVALUATION NOTE Time in: 1450 Time out: 1424 Total time: 34 min AI is a 28yom w/ a MH h/o PTSD, depressive DO unspecified, and insomnia. Chart and available information reviewed. CC: depression HPI: Marion was last interviewed 03/27/24. Denied use of mirtazapine lately. Mood had been with highs and lows; discussed a depressive low after return from the wedding he went to and further reviewed the influence that reminders of loss have on his stability. He is unsure if mood is a reflection of venlafaxine benefit having waned, although is inclined to not believe this was helpful. Once or twice a week missed dosing, without concern on his part for withdrawal. Encouraged improved adherence, which is his intention, with further monitoring of this dose of SSRI. Will continue to monitor. seen for F2F appt as planned. Reporting ongoing use of sertraline, stating perceptions of tolerability with use of medication. Did remark that it's alright, there was a period about two weeks ago where I don't know what was going on, but I would lay down to sleep and feel exhausted, and then I'd be up and down every few hours.. felt pretty tired , feeling like he wasn't getting a deep or restorative sleep. Mood has been pretty stable . Patience has been well, stemming from a conversation that he has had to have with roommates. Discussed roommates' concerns with his mood, and how this may influence them. They know what I'm dealing with, but they have trouble dealing with it . So far this has been well, feeling he received this well. It's more of a change on my part, trying to be more present, being more active in responsibilities. Variable physical activity, influenced by moods. Can't get my brain to slow down, relax enough to go to sleep . Denied intrusive thoughts or negative thought content. Mirtazapine remains without a bulk of utility for him and he would like to trial an alternative that is not trazodone. We reviewed this and approved trial of amitriptyline 20mg. I do feel like I get a more profitable sleep, even when I don't sleep well.. so it's better than if I wasn't taking sertraline.. so there is some benefit to it . Feels his depression has been a concern still, and would like to monitor over time, before further investing into SSRI, which previously had limited yield appreciations. Will monitor. Denied SI/HI at present. SUBSTANCE USE HX: Nicotine- vaped nicotine; deferred cessation interest at this time Alcohol- denied Illicit- denied PSYCHIATRIC MEDICATION HISTORY: According to CPRS and JLV remote data of [place] outpatient Rx, the pt has a h/o TRAZODONE (non-VA); ESCITALOPRAM (up to 20mg daily, non-VA); HYDROXYZINE (25mg PRN anxiety, non-VA); SERTRALINE. FLUOXETINE (20mg non-VA); ARIPIPRAZOLE (2mg non-VA). Since engagement with this brief writer: SERTRALINE; LITHIUM. VENLAFAXINE. ALLERGIES/ADVERSE REACTIONS Type: DRUG Date/Time Reactant Severity [...] 25 (12/19/23 09:26) PLASMA CREA: 1.0 (12/19/23 09:) PLASMA EGFR: 104 (12/19/23 09:26) PLASMA GLUCOSE: [...] URINE OPIATES NEG Ref: NEG Vitals: T: 96 F [35.6 C] (04/29/2024 13:26) P: 81 (04/29/2024 13:26) R: 16 (04/29/2024 13:26) BP: 115/79 (04/29/2024 13:26) W: 180 lb [81.65 kg] (04/29/2024 13:26) BMI: 25.9 Mental Status Exam: Kacy: 28yom [...] of harm to self or others ASSESSMENT: [place] with PTSD, depressive DO unspecified, and insomnia, [...] titration yielding questions on benefit over time. [place] augmentation, at one time viewed as supportive [...] therapies - continue sertraline 50mg daily - trial amitriptyline 20mg HS PRN for sleep - DC mirtazapine -> monitor: mood, sleep, anxiety, SUDHEER -> [...] RECONCILIATION REPORT reviewed and discussed with patient. [place] prescription medications: Patient verifies that they are [...] list of medications. /deanna/ ABAD TENORIO CLINICAL BACK TACKER Signed: 04/30/2024 16:28 ABAD TENORIO OC
--- OUTSIDE RECORDS SUMMARY | 2024-05-02 10:30 | XMS_ITS | Encounter Summary ---
Author Name [facility] [place] [facility] [place] Address [address] [place] [address] Care Team Providers Care Power Generating Plant Operator Name Role Phone ROSARIO ESCALERA Primary Care Provider [facility] Insurance Providers: All historical and current [...] section includes the information on record at [place] for the Encounter. Date/Time Encounter Type Encounter Description Reason Provider Source May 02, 2024 02:30 PM THERAPEUTIC EXERCISES PHYSICAL THERAPY ICD-10-CM M54.50 Low back pain, unspecified [facility] HD[facility] Sonya Encounter Template Text not used by [place] Assessments - Encounter Diagnoses This section includes the primary and secondary diagnoses documented for the Encounter. Date/Time Primary/Secondary Diagnosis Diagnosis Name Provider Source May 02, 2024 03:06 PM PRIMARY Low back pain, unspecified KVNG [...] 20 appointments. The data comes from all [facility]. Appointment Date/Time Appointment Type Appointme nt Facility Name May 08, 2024 01:00 PM AMBULATORY - NEUROLOGY [facility] May 09, 2024 03:00 PM AMBULATORY - NONE [facility] May 09, 2024 03:57 PM AMBULATORY - NONE [facility] May 12, 2024 10:00 AM AMBULATORY - PSYCHIATRY [facility] May 14, 2024 10:30 AM AMBULATORY - PSYCHIATRY [facility] May 26, 2024 01:00 PM AMBULATORY - PSYCHIATRY [facility] May 26, 2024 01:30 PM AMBULATORY - PSYCHIATRY [facility] Jun 04, 2024 08:30 AM AMBULATORY - REHAB MEDICIN E [facility] Jun 06, 2024 11:30 AM AMBULATORY - PSYCHIATRY [facility] Jun 09, 2024 01:00 PM AMBULATORY - PSYCHIATRY [facility] Jun 19, 2024 09:45 AM AMBULATORY - NONE [facility] Jun 25, 2024 09:00 AM AMBULATORY - PSYCHIATRY [facility] Jun 25, 2024 09:30 AM AMBULATORY - NONE [facility] Jun 25, 2024 02:00 PM AMBULATORY - NONE [facility] Jul 03, 2024 01:00 PM AMBULATORY - PSYCHIATRY [facility] Jul 11, 2024 09:00 AM AMBULATORY - SURGERY [facility] Jul 11, 2024 01:00 PM AMBULATORY - PSYCHIATRY [facility] Jul 15, 2024 03:00 PM AMBULATORY - SURGERY [facility] Jul 17, 2024 01:00 PM AMBULATORY - SURGERY [facility] Jul 18, 2024 01:00 PM AMBULATORY - PSYCHIATRY [facility] Active, Pending, and Scheduled Orders This section includes a listing of several types of active, pending, and scheduled orders, including clinic medications orders, diagnostic test orders, procedure orders and consult orders; where the start date of the order is 45 days before the date of the Encounter or 45 days after the date of theEncounter. The data comes from all [facility]. Test Date/Time Test Type Test Details Facility Name May 21, 2024 12:00 AM Laboratory - Chemi stry Order URINALYSIS URINE SP ONCE [facility] Social History: Smoking Status (Most current) and Tobacco Use (All prior to encounter date) This section includes the most current, and the historical, smoking and tobacco- related health factors from the [place] facility where the Encounter took place. Current Smoking Status This section includes the most current smoking, or tobacco-related health factor, from the [place] facility where the Encounter took place. Date/Time Current Smoking Status Comment Facil ity May 18, 2023 02:00 PM VA-TOBACCO FORMER USER [facility] Tobacco Use History This section includes a history of the smoking, or tobacco-related health factors, that were collected on or before the date of the Encounter. The data comes from the [place] facility where the Encounter took place. Date/Time Smoking Status/Tobacco Use Comment F acility May 18, 2023 02:00 PM VA-TOBACCO QUIT 1 TO < 5 YRS [facility] Advance Directives: All historical and current Section Date Range: From patient's date of to the date document was created. This section includes ALL of a patient's completed or amended [place] Advance and Rescinded Directives. The entries below indicate that a directive exists for the patient, but an actual copy is not included with this document. The data comes from all [place] facilities. Date Advance Directives Provider Source October 22, 2023 ADVANCE DIRECTIVE DISCUSSION SABINA NAIR [facility] Radiology Reports: +/- 30 days of the [...] the Encounter. The data comes from all [place] treatment facilities. Date/Time Radiology Report Provider Source May 09, 2024 03:59 PM LUMBOSACRAL SPINE, 2 OR 3 VIEWS: MARION ZHENG [id number] -1995 M Exm Date: MAY 09, 2024@15:59 Req Phys: AVNI BARRON Loc: [facility] MRI MOBILE 1 (Req'g Loc) Img Loc: [facility] Service: [place] [address] (Case [id number] COMPLETE)LUMBOSACRAL SPINE, 2 OR 3 VIEWS (RAD Detailed) CPT:52163 Reason for Study: pain Clinical History: [address] [place], [place] [address] Report Status: Verified Date Reported: MAY 16, 2024 Date Verified: MAY 16, 2024 Building Energy Retrofit Technician E-Sig:/ES/JEFF SADLER Report: Lumbar spine: AP, lateral [...] Code: Primary Interpreting Staff: JEFF SADLER, RADIOLOGIST (Building Energy Retrofit Technician) /JEFF LEO [facility] May 09, 2024 03:59 PM CERVICAL SPINE WIT H FLEXION AND EXTENSION: MARION ZHENG [id number] -1995 M Exm Date: MAY 09, 2024@15:59 Req Phys: AVNI BARRON Pat Loc: [facility] MOBILE 1 (Req'g Loc) Img Loc: [facility] Service: [place] [address] (Case [id number] COMPLETE)CERVICAL SPINE WITH FLEXION AND E(RAD Detailed) CPT:15538 Reason for Study: pain Clinical History: [address] [place], [place] [address] Report Status: Verified Date Reported: MAY 16, 2024 Date Verified: MAY 16, 2024 Building Energy Retrofit Technician E-Sig:/DEANNA/JEFF SADLER Report: Cervical spine: AP, lateral, [...] Code: Primary Interpreting Staff: JEFF SADLER, RADIOLOGIST (Building Energy Retrofit Technician) /JEFF LEO [facility] May 09, 2024 03:05 PM MRI CERVICAL SPINE W/O CONTRAST: MARION ZHENG [id number] -1995 M Exm Date: MAY 09, 2024@15:05 Req Phys: AVNI BARRON Loc: [facility] PAIN SPINE 6 (Req'g Loc Img Loc: [place] [facility] CONTRACT READ Service: [place] [address] (Case [id number] COMPLETE)MRI CERVICAL SPINE W/O CONTRAST (MRI Detailed) CPT:06941 CPT Modifiers : TC TECHNICAL COMPONENT Reason for Study: pain Clinical History: History of Trauma: No SYMPTOMS AND SIGNS: Duration Of Symptoms:> 12 weeks pain Plain films obtained ([facility] or Outside Hospital): Yes No Impressions found Risks and benefits of the procedure were discussed with the patient. The patient did understand and agree with the treatment plan. Report Status: Verified Date Reported: MAY 12, 2024 Date Verified: MAY 12, 2024 Building Energy Retrofit Technician E-Sig:/ES/BECCA MARIA Report: EXAMINATION: MRI NECK SPINE [...] REQUIRED Primary Interpreting Staff: BECCA MARIA, RADIOLOGIST (Building Energy Retrofit Technician) /BECCA STERLING [facility] May 09, 2024 03:05 PM MRI LUMBAR SPINE W /O CONTRAST: BRITTNEYMARION Haji [id number] -1995 M Exm Date: MAY 09, 2024@15:05 Req Phys: AVNI BARRON Loc: [facility] PAIN SPINE 6 (Req'g Loc Img Loc: [facility] MRI CONTRACT READ Service: [place] [address] (Case [id number] COMPLETE)MRI LUMBAR SPINE W/O CONTRAST (MRI Detailed) CPT:68864 CPT Modifiers : TC TECHNICAL COMPONENT Reason for Study: pain Clinical History: History of Trauma: No SYMPTOMS AND SIGNS: Duration Of Symptoms:> 12 weeks pain Plain films obtained ([facility] or Outside Hospital): Yes No Impressions found Risks and benefits of the procedure were discussed with the patient. The patient did understand and agree with the treatment plan. Report Status: Verified Date Reported: MAY 12, 2024 Date Verified: MAY 12, 2024 Building Energy Retrofit Technician E-Sig:/ES/BECCA MARIA Report: EXAMINATION: MRI LUMBAR SPINE [...] REQUIRED Primary Interpreting Staff: BECCA MARIA, RADIOLOGIST (Chari) /BECCA STERLING [facility] Encounter Notes: All associated encounter notes This section contains the clinical notes associated to the Encounter. Date/Time Encounter Note(s) Provider Source May 02, 2024 12:52 PM PHYSICAL THERAPY N OTE: LOCAL TITLE: PM&RS PT DAILY ACTIVITY NOTE STANDARD TITLE: PHYSICAL THERAPY NOTE DATE OF NOTE: MAY 02, 2024@12:52 ENTRY DATE: MAY 02, 2024@12:52:34 AUTHOR: KVNG HDZ EXP COSIGNER: URGENCY: STATUS: COMPLETED Dx Code; Chronic LBP PT dx; Chronic lumbar mobility/coordination impairments without radiculopathy Outpatient PT Tx #2 PT POC; 03/21/24-> S: 28 yo who returns to Outpatient Physical Therapy for additional care. I'd say 40-50% better now. The pain levels are much less and I'm no longer afraid that this is a big problem. Also, I notice that the pain I would get bending forward (L flexion) isn't as severe or frequent. Intermittent use of lumbar roll use (mainly using in vehicle) with benefit. Continues with daily written HEP 2x/day with benefit afterwards. Agreeable to the following Outpatient PT interventions. Present Symptoms; NEW 1/10 central lumbar Dull ache 1/10 L lateralization Sharp tightness 1/[address] Final levels; NEW 2/10 central lumbar Dull ache' 0/10 L lateralization Sharp tightness 0/[address] O: Gait; Indep without AD. Manual Therapy; Prone Thoracic P/a Mobs; Pt declined Outcome Measures; Modified Oswestry Low Back Pain Questionnaire; 05/02/24 Total; 6% Self Rep Disability 03/21/24 Total; 36% Self Rep Disability Exercise Prescription; (Reviewed in clinic) 1. Prone/NIKO; 2. PPU; 3. STRICT posture corrections; Firm chairs, lumbar roll 4. PPU with pt generated OP; 15 reps, hold 5-10 seconds. Added; 5. Seated Lower cervical retraction ROM; 10-15 reps, hold 5-10 seconds. 6. Seated thoracic extension ROM; 10-15 reps, hold 5-10 seconds Unable to combine #5/6 due to discomfort 35 mins Ther ex x 2 A: Clinical progress into thoracic and lower cervical extension bias ROM self- stretching with mobility restrictions. Encouraged client to focus on repetitions, end range stretch duration and repetitive nature of his chronic mobility condition. Unable to tolerate cervical retraction plus thoracic extension movements so items were and encouraged to be completed after each other. He returned above instruction. P: Extended PT POC x 1 final visit RTC placed for 30 days. Continue with extension bias ther ex, posture correction and patient education. Review SIVAKUMAR and lumbar ROM next visit. /deanna/ KVNG HDZ PHYSICAL THERAPIST Signed: 05/02/2024 15:06 KVNG HDZ [facility]
--- OUTSIDE RECORDS SUMMARY | 2024-05-08 09:00 | XMS_ITS | Encounter Summary ---
Author Name [facility] [place] Organization [facility] Address [address] [place] [address] Care Team Providers Care Support Clerk Name Role Phone ROSARIO ESCALERA Primary Care [...] section includes the information on record at [place] for the Encounter. Date/Time Encounter Type Encounter Description Reason Provider Source May 08, 2024 01:00 PM OFFICE O/P EST HI 40 MIN NEUROLOGY ICD-10-CM G43.709 Chronic migraine w/o aura, not intractable, w/o stat migr KINA IZQUIERDO Encounter Template Text not used by [place] Assessments - Encounter Diagnoses This section includes the primary and secondary diagnoses documented for the Encounter. Date/Time Primary/Secondary Diagnosis Diagnosis Name Provider Source May 10, 2024 10:24 PM PRIMARY Chronic migraine w/o aura, not intractable, w/o stat migr KINA IZQUIERDO [facility] May 10, 2024 10:24 PM SECONDARY Major depressive disorder, single episode, unspecified KINA IZQUIERDO [facility] Plan of Treatment: Future Appointments (+ 6 months) and Future Tests (+/- 45 days) The Plan of Treatment section includes future care activities for the patient from all [place] [facility] This section includes future appointments and future orders which are active, pending or scheduled. Future Appointments This section includes appointments that were scheduled to occur 6 months from the date of the Encounter, up to a maximum of 20 appointments. The data comes from all [facility]. Appointment Date/Time Appointment Type Appointme nt Facility Name May 09, 2024 03:00 PM AMBULATORY - NONE [facility] May 09, 2024 03:57 PM [facility] May 12, 2024 10:00 AM AMBULATORY - PSYCHIATRY [facility] May 14, 2024 10:30 AM AMBULATORY - PSYCHIATRY CL [facility] May 26, 2024 01:00 PM AMBULATORY - PSYCHIATRY [facility] May 26, 2024 01:30 PM AMBULATORY - PSYCHIATRY CL [facility] Jun 04, 2024 08:30 AM AMBULATORY - REHAB MEDICIN E [facility] Jun 06, 2024 11:30 AM AMBULATORY - PSYCHIATRY [facility] Jun 09, 2024 01:00 PM AMBULATORY - PSYCHIATRY CL [facility] Jun 19, 2024 09:45 AM AMBULATORY - NONE [facility] Jun 25, 2024 09:00 AM AMBULATORY - PSYCHIATRY [facility] Jun 25, 2024 09:30 AM [facility] Jun 25, 2024 02:00 PM AMBULATORY - NONE [facility] Jul 03, 2024 01:00 PM AMBULATORY - PSYCHIATRY [facility] Jul 11, 2024 09:00 AM AMBULATORY - SURGERY [facility] Jul 11, 2024 01:00 PM AMBULATORY - PSYCHIATRY CL [facility] Jul 15, 2024 03:00 PM AMBULATORY - SURGERY [facility] Jul 17, 2024 01:00 PM AMBULATORY - SURGERY [facility] Jul 18, 2024 01:00 PM AMBULATORY - PSYCHIATRY [facility] Jul 18, 2024 02:00 PM AMBULATORY - PSYCHIATRY [facility] Active, Pending, and Scheduled Orders This section includes a listing of several types of active, pending, and scheduled orders, including clinic medications orders, diagnostic test orders, procedure orders and consult orders; where the start date of the order is 45 days before the date of the Encounter or 45 days after the date of theEncounter. The data comes from all [place] [facility]. Test Date/Time Test Type Test Details Facility Name May 21, 2024 12:00 AM Laboratory - Chemi stry Order URINALYSIS URINE SP [facility] Vital Signs: All taken on the encounter date This section contains inpatient and outpatient Vital Signs collected on the date of the Encounter. Date/Time Temperature Pulse Blood Pressure Respiratory Rate SP02 Pain Height Weight Body Mass Index Source May 08, 2024 12:50 PM 97.5 97 139/84 16 98 0 177.3 [facility] Social History: Smoking Status (Most current) and Tobacco Use (All prior to encounter date) This section includes the most current, and the historical, smoking and tobacco- related health factors from the [place] facility where the Encounter took place. Current Smoking Status This section includes the most current smoking, or tobacco-related health factor, from the [place] facility where the Encounter took place. Date/Time Current Smoking Status Comment Facil ity Jun 19, 2023 10:00 AM TOBACCO FORMER USER MORE 12 [facility] Advance Directives: All historical and current Section Date Range: From patient's date of to the date document was created. This section includes ALL of a patient's completed or amended [place] Advance and Rescinded Directives. The entries below indicate that a directive exists for the patient, but an actual copy is not included with this document. The data comes from all [facility]. Date Advance Directives Provider Source October 22, 2023 ADVANCE DIRECTIVE DISCUSSION SABINA NAIR [facility] Radiology Reports: +/- 30 days of [...] the Encounter. The data comes from all [facility]. Date/Time Radiology Report Provider Source May 09, 2024 03:59 PM LUMBOSACRAL SPINE, 2 OR 3 VIEWS: MARION ZHENG [id number] -1995 M Exm Date: MAY 09, 2024@15:59 Req Phys: AVNI BARRON Pat Loc: [facility] MRI MOBILE 1 (Req'g Loc) Img Loc: [facility] Service: Unknown [place] [facility] [place] [id number] (Case [id number] COMPLETE)LUMBOSACRAL SPINE, 2 OR 3 VIEWS (RAD Detailed) CPT:95644 Reason for Study: pain Clinical History: [address], [place] [address] Report Status: Verified Date Reported: MAY 16, 2024 Date Verified: MAY 16, 2024 Dust Collector Operator E-Sig:/ES/JEFF SADLER Report: Lumbar spine: AP, lateral [...] Code: Primary Interpreting Staff: JEFF SADLER, RADIOLOGIST (Dust Collector Operator) /JEFF LEO [facility] May 09, 2024 03:59 PM CERVICAL SPINE WIT H FLEXION AND EXTENSION: BRITTNEYMARION Haji ISAI [id number] -1995 M Exm Date: MAY 09, 2024@15:59 Req Phys: AVNI BARRON Pat Loc: [facility] MRI MOBILE 1 (Req'g Loc) Img Loc: [facility] Service: Unknown [place] [facility] [place] [address] (Case [id number] COMPLETE)CERVICAL SPINE WITH FLEXION AND E(RAD Detailed) CPT:65873 Reason for Study: pain Clinical History: [address], [place] [address] Report Status: Verified Date Reported: MAY 16, 2024 Date Verified: MAY 16, 2024 Dust Collector Operator E-Sig:/ES/JEFF SADLER Report: Cervical spine: AP, lateral, [...] Code: Primary Interpreting Staff: JEFF SADLER, RADIOLOGIST (Dust Collector Operator) /JEFF LEO [facility] May 09, 2024 03:05 PM MRI LUMBAR SPINE W /O CONTRAST: MARION ZHENG [id number] -1995 M Exm Date: MAY 09, 2024@15:05 Req Phys: AVNI BARRON Pat Loc: [facility] PAIN SPINE 6 (Req'g Loc Img Loc: [facility] CONTRACT READ Service: [facility] [place] [address] (Case [id number] COMPLETE)MRI LUMBAR SPINE W/O CONTRAST (MRI Detailed) CPT:35160 CPT Modifiers : TC TECHNICAL COMPONENT Reason for Study: pain Clinical History: History of Trauma: No SYMPTOMS AND SIGNS: Duration Of Symptoms:> 12 weeks pain Plain films obtained ([facility] or Outside Hospital): Yes No Impressions found Risks and benefits of the procedure were discussed with the patient. The patient did understand and agree with the treatment plan. Report Status: Verified Date Reported: MAY 12, 2024 Date Verified: MAY 12, 2024 Dust Collector Operator E-Sig:/DEANNA/BECCA MARIA Report: EXAMINATION: MRI LUMBAR SPINE [...] REQUIRED Primary Interpreting Staff: BECCA MARIA, RADIOLOGIST (Dust Collector Operator) /BECCA [facility] May 09, 2024 03:05 PM MRI CERVICAL SPINE W/O CONTRAST: MARION ZHENG [id number] -1995 M Exm Date: MAY 09, 2024@15:05 Req Phys: AVNI BARRON Loc: [facility] PAIN SPINE MD 6 (Req'g Loc Img Loc: [facility] CONTRACT READ Service: [facility] [place] [address] (Case [id number] COMPLETE)MRI CERVICAL SPINE W/O CONTRAST (MRI Detailed) CPT:68486 CPT Modifiers : TC TECHNICAL COMPONENT Reason for Study: pain Clinical History: History of Trauma: No SYMPTOMS AND SIGNS: Duration Of Symptoms:> 12 weeks pain Plain films obtained ([facility] or Outside Hospital): Yes No Impressions found Risks and benefits of the procedure were discussed with the patient. The patient did understand and agree with the treatment plan. Report Status: Verified Date Reported: MAY 12, 2024 Date Verified: MAY 12, 2024 Dust Collector Operator E-Sig:/DEANNA/BECCA MARIA Report: EXAMINATION: MRI NECK SPINE [...] REQUIRED Primary Interpreting Staff: BECCA MARIA, RADIOLOGIST (Dust Collector Operator) /BECCA [facility] Encounter Notes: All associated encounter notes This section contains the clinical notes associated to the Encounter. Date/Time Encounter Note(s) Provider Source May 08, 2024 01:06 PM NEUROLOGY OUTPATIE NT NOTE: LOCAL TITLE: NEUROLOGY OUTPATIENT CLINIC NOTE STANDARD TITLE: NEUROLOGY OUTPATIENT NOTE DATE OF NOTE: MAY 08, 2024@13:06 ENTRY DATE: MAY 08, 2024@13:06:51 AUTHOR: KINA IZQUIERDO COSIGNER: URGENCY: STATUS: COMPLETED NEUROLOGY OUTPATIENT CLINIC NOTE Has ADDENDA I am the attending physician. CC <planned f/u for migraines> HPI: 28 yo RH man, referred from primary care 12/27/23 for headache, returns for planned f/u. Please see original consultation note of 02/14/24 for detailed history. Briefly, we had little chart data about his headache problem. In interview, he dated his headache problem to his service. (He's currently 30% SC for migraines). He described 3 headache types: 1) standard headache : This [...] toward the back of head. Pain is steady (non-pulsating), sharp. Duration is hours. Current frequency was once/month. There is probably no aura. There is associated photophobia, phonophobia, and nausea without vomiting. Pain is incapacitating. No identified triggers. Only alleviation is lying in a dark room. 3) sinus : Mid-frontal, sharp, pulsating pain. It is heralded by a period of congestion (days) and associated with post-nasal drip. Duration is 1-2 days. I didn't note the frequency. (Today he would cast doubt on the connection to the congestion. This headache type was consequently renamed bullseye for the migraine diary.) His headache risks included lifelong susceptibilty to motion sickness, a mother and sister with headaches, and excessive caffeine intake. In terms of abortive and prophylactic medications, he'd never been on a triptan or a prophylactic. Neurological examination was not very notable. He had some psychomotor agitation c/w his psych diagnoses. My impression was chronic daily headache with episodic exacerbations. I thought he might have some additional true sinus headache. After discussion with his psych provider, I placed him on low-dose VPA with plan to escalate at this visit if tolerated. I also referred patient to Behavioral Medicine. I obtained an MRI, which was unrevealing apart from some mastoid fluid and a partially empty sella, both of which I argued were probably unrelated to his headache. Since the initial encounter, he saw Behavioral Medicine and was given recommendations, but BM didn't think he was enthusiastic about acting on those recommendations. These included cold compresses, reduced caffeine, better hydration, more regular meals, [further] sleep interventions (which patient specifically declined), various self-care strategies including stress reduction, a headache log (I thought it premature for that because his headache is basically continuous in one form or another). He is scheduled to see them again 05/14/24. Review of interval chart indicates patient did see Sleep 02/26/24 for insomnia. They recommended caffeine reduction (which patient resisted), and Sleep Psychology (which patient declined). I saw no interval references to his headaches (other than in the Behavioral Medicine note). Psych notes indicate he changed from venlafaxine to sertraline, and he was started on Elavil by Psych 04/29/24 for insomnia, with intended concurrent treatment with that and sertraline. It raises the possibility that any improvement in headaches going forward could reflect an effect of Elavil rather than VPA. Also, if Elavil could be increased so far as, say, 75 mg daily, I would be inclined to focus on that agent, as his headaches might be effectively treated on that agent, obviating any need for VPA. (On the other hand, if Elavil dose can't be raised above 20 mg/day, the VPA would still be necessary.) Today patient presented unaccompanied. He reports no difficulties with the VPA. He hasn't started the Elavil yet (just got it today). With regard to each of his previously described headache types: 1) standard daily headache - unchanged. 2) migrainous headaches - He thinks these have declined in frequency and severity since starting VPA. Currently they are once/month, and none of them have been incapacitating. (Post-encounter I realized that the frequency is the same he gave at the initial visit.) 3) sinus headaches. He couldn't tell me the frequency. He's had a lot of problems with congestion x 1.5 months, taking decongestants every day and 1-2 months ago he was given a course of antibiotics because of draining into his ears. He does in fact sound a little congested during today's encounter. Today he seemed to walk back the prior simple correlation he reported between the sinus headache and his congestion, which was part of the reason I had contemplated the sinus headache actually having anything to do with his sinuses. He still endorsed, however, my prior summary of the characteristics of the headache, particularly the mid-frontal location. (He only walked back the consistent connection to his congestion.) We renamed this headache his bullseye headache for the purposes of the diary and further discussions. I queried the degree to which he had acted on the recommendations of Behavioral Medicine. He didn't recall their having suggested he try cold compresses. He didn't recall any suggestions re self-care. He didn't recall receiving any materials as part of that [facility] encounter (after which I did verify my recollection of the Behavioral Medicine note referencing materials). He expressed irritation with the whole experience, feeling that the provider wasn't paying sufficient attention to his report that he'd previously tried and failed many of the maneuvers that were being recommended. The issue of the caffeine reduction came up. I explained (again) that there's unlikely to be any single action that will resolve his entrenched problem. I still support reducing the caffeine to the usual recommended limit of 200 mg/day, at least to take off the table caffeine overuse as one contributor to his problem. Patient verbalized understanding of the logic of the recommendation. He has not kept the diary suggested by Behavioral Medicine. I explained to him why I had deferred it at the first visit, but I now think it would be worthwhile, at least to track the migraine and sinus types. I explained that I like these to be done as paper calendars, using the calendar I would customize for his particular problem, rather than an pnu-roh-ywgnm mobile juan josé like Migraine Zac. ACTIVE PROBLEM Exposure to potentially hazardous 10/10/2023 substance ([facility] [id number]) H/O splenectomy 06/23/2023 Hereditary spherocytosis 05/21/2023 Depression 04/13/2023 Chronic post-traumatic stress disorder 02/09/2023 Insomnia 02/09/2023 Suicidal thoughts 09/10/2023 Personality disorder 09/10/2023 MEDICATION RECONCILIATION Patient/Caregiver unable to participate in medication reconciliation at this time. Active Outpatient Medications (including Supplies): Active Outpatient Medications Status 1) AMITRIPTYLINE HCL 10MG TAB TAKE 1 TO 2 TABLETS BY ACTIVE MOUTH AT BEDTIME NEEDED FOR SLEEP (hasn't started yet) 2) ATORVASTATIN CALCIUM 10MG TAB TAKE ONE TABLET BY ACTIVE MOUTH EVERY DAY 3) CHOLECALCIF 25MCG (D3-1,000UNIT) TAB TAKE THREE ACTIVE TABLETS BY MOUTH EVERY DAY FOR VITAMIN D DEFICIENCY 4) DIVALPROEX 500MG 24HR (ER) SA TAB TAKE ONE TABLET BY ACTIVE MOUTH AT BEDTIME 5) FLUTICASONE PROP 50MCG 120D NASAL INHL USE 2 SPRAYS ACTIVE IN EACH NOSTRIL EVERY DAY NASAL CONGESTION 6) SERTRALINE HCL 50MG TAB TAKE ONE TABLET BY MOUTH ACTIVE EVERY DAY Allergies/ADR: MORPHINE, HYDROMORPHONE, OXYCODONE O/E (directed, looking particularly for signs of anticonvulsant toxicity): Vitals: T: 97.5 F [36.4 C] (05/08/2024 12:50) P: 97 (05/08/2024 12:50) R: 16 (05/08/2024 12:50) BP: 139/84 (05/08/2024 12:50) W: 177.3 lb [80.42 kg] (05/08/2024 12:50) BMI: 25.5 CN: eom full-range, no gaze-evoked nystagmus MOTOR: no asterixis (performed because I did last time) COORD: F>N: okay H>S: okay Romberg negative gait normal tandem okay, achieved with minimal elevation of arms (~15deg) ASSESSMENT: I. Chronic daily headache + episodic headache: He's reporting some reduced severity of one of his two episodic headache types since starting low-dose valproic acid (divalproex, VPA). My original plan was to escalate the VPA, but he also appears to be in the middle of adjustments in his psych medicines, and the initiation of Elavil could actually obviate the need for VPA. Also, I'm reluctant to be manipulating VPA while other psychoactive meds are being changed, as it will make it difficult to attribute any benefits or ADRs. Thus I'm going to hold off on changes. I'll touch base with psych provider pharmacist ABAD TENORIO - I'd favor escalation of the Elavil, no more often than q- month, to target all his headache types but particularly the chronic daily headache. (If that responds, the migraine type will likely respond as well; the sinus may not if it is a true sinus-related phenomenon.) On the other hand, if the Elavil can't be raised beyond 20 mg daily (because of the concurrent sertraline) and his headaches don't fortuitously resolve at the current low dose, I would likely resume the planned VPA escalation, but not until his other psychotherapeutics are stable. PLAN: 1) keep headache diary. I constructed a diary with check-off columns for his daily headache, migraines, his former sinus headaches (which we've now re- named bullseye headaches since it's not longer clear what relationship they have to his sinus congestion complaint), and sinus congestion. There are also columns for any abortive medication used and comments. Patient verbalized understanding of how the diary is to be kept. 2) will touch base with psych provider, as above. 3) continue VPA at current dose 4) RTC 4 months I'm adding psych provider ABAD TENORIO as an additional signer (also emailed) to call his attention to the comments regarding Elavil. CODING DIAGNOSES: migraine without aura, not intractable, without status migrainosus depression (included because it significantly impacted management) TOTAL TIME SPENT: Spent 118 minutes in care of this patient today including review of records, exam, and placing orders. Time spent breakdown: Prior assessment distillation, visit plannin' f2f: 32' orders, coordination of care, note completion: 52' /deanna/ KINA IZQUIERDO NEUROLOGIST Signed: 05/10/2024 22:29 Receipt Acknowledged By: 05/12/2024 13:44 /daenna/ ABAD TENORIO CLINICAL ASTRONOMY TEACHER 05/14/2024 ADDENDUM STATUS: COMPLETED Update: Successfully touched base with Psych (Geena). He's going to cautiously escalate the Elavil. He explained he usually limits it to 20 mg when used for sleep in the presence of an SSRI/SNRI, but in this case he's not intending to escalate sertraline beyond the current 50 mg (because the patient hasn't benefited from higher sertraline doses in the past), which opens up some room for careful Elavil escalation according to his headache response (not just the sleep, for which it was originally added). /deanna/ KINA IZQUIERDO NEUROLOGIST Signed: 05/14/2024 16:32 KINA IZQUIERDO [facility]
--- OUTSIDE RECORDS SUMMARY | 2024-05-12 06:00 | XMS_ITS | Encounter Summary ---
Author Name [facility] [place] [facility] [place] Address [address] [place] [address] Care Team Providers Care Marketing Project Manager Name Role Phone ROSARIO ESCALERA Primary [...] Type Encounter Description Reason Provider Source May 12, 2024 10:00 AM STRESS MGMT CLASS [facility] - IND ICD-10-CM F60.9 Personality disorder, unspecified ADDIS CLOUD Sonya Encounter Template Text not used by [place] Assessments - Encounter Diagnoses This section includes the primary and secondary diagnoses documented for the Encounter. Date/Time Primary/Secondary Diagnosis Diagnosis Name Provider Source May 12, 2024 10:08 AM PRIMARY Personality disorder, unspecified ADDIS CLOUD [facility] May 12, 2024 10:08 AM SECONDARY Major depressive disorder, single episode, unspecified ADDIS CLOUD [facility] May 12, 2024 10:08 AM SECONDARY Post-traumatic stress disorder, chronic ADDIS CLOUD [facility] May 12, 2024 10:08 AM SECONDARY Primary insomnia ADDIS CLOUD [facility] Plan of Treatment: Future Appointments (+ 6 months) and Future Tests (+/- 45 days) The Plan of Treatment section includes future care activities for the patient from all [place] [facility]. This section includes future appointments and future orders which are active, pending or scheduled. Future Appointments This section includes appointments that were scheduled to occur 6 months from the date of the Encounter, up to a maximum of 20 appointments. The data comes from all [place] treatment facilities. Appointment Date/Time Appointment Type Appointme nt Facility Name May 14, 2024 10:30 AM AMBULATORY - PSYCHIATRY [facility] May 26, 2024 01:00 PM AMBULATORY - PSYCHIATRY CL [facility] May 26, 2024 01:30 PM AMBULATORY - PSYCHIATRY [facility] Jun 04, 2024 08:30 AM AMBULATORY - REHAB MEDICIN E [facility] Jun 06, 2024 11:30 AM AMBULATORY - PSYCHIATRY [facility] Jun 09, 2024 01:00 PM AMBULATORY - PSYCHIATRY [facility] Jun 19, 2024 09:45 AM AMBULATORY - NONE [facility] Jun 25, 2024 09:00 AM AMBULATORY - PSYCHIATRY CL [facility] Jun 25, 2024 09:30 AM [facility] - NONE [facility] Jun 25, 2024 02:00 PM AMBULATORY - NONE [facility] Jul 03, 2024 01:00 PM AMBULATORY - PSYCHIATRY CL [facility] Jul 11, 2024 09:00 AM AMBULATORY - SURGERY [facility] Jul 11, 2024 01:00 PM AMBULATORY - PSYCHIATRY CL [facility] Jul 15, 2024 03:00 PM AMBULATORY - SURGERY [facility] Jul 17, 2024 01:00 PM AMBULATORY - SURGERY [facility] Jul 18, 2024 01:00 PM AMBULATORY - PSYCHIATRY CL [facility] Jul 18, 2024 02:00 PM AMBULATORY - PSYCHIATRY CL [facility] Jul 21, 2024 09:30 AM AMBULATORY - SURGERY [facility] Jul 25, 2024 02:30 PM AMBULATORY - NONE [facility] Aug 07, 2024 02:00 PM AMBULATORY - PSYCHIATRY [facility] Active, Pending, and Scheduled Orders This section includes a listing of several types of active, pending, and scheduled orders, including clinic medications orders, diagnostic test orders, procedure orders and consult orders; where the start date of the order is 45 days before the date of the Encounter or 45 days after the date of theEncounter. The data comes from all [facility]. Test Date/Time Test Type Test Details Facility Name May 21, 2024 12:00 AM Laboratory - Chemi stry Order URINALYSIS URINE SP ONCE [facility] Social History: Smoking Status (Most current) and [...] Facil ity May 18, 2023 02:00 PM [place]-TOBACCO QUIT 1 TO < 5 YRS [facility] Tobacco Use History This section includes a history of the smoking, or tobacco-related health factors, that were collected on or before the date of the Encounter. The data comes from the [place] facility where the Encounter took place. Date/Time Smoking Status/Tobacco Use Comment F acility May 18, 2023 02:00 [facility] Advance Directives: All historical and current Section Date Range: From patient's date of to the date document was created. This section includes ALL of a patient's completed or amended [place] Advance and Rescinded Directives. The entries below indicate that a directive exists for the patient, but an actual copy is not included with this document. The data comes from all [facility]. Date Advance Directives Provider Source October 22, 2023 ADVANCE DIRECTIVE DISCUSSION SABINA NAIR [facility] Radiology Reports: +/- 30 days [...] the Encounter. The data comes from all [facility]. Date/Time Radiology Report Provider Source May 09, 2024 03:59 PM LUMBOSACRAL SPINE, 2 OR 3 VIEWS: MARION ZHENG [id number] -1995 M Exm Date: MAY 09, 2024@15:59 Req Phys: MandieASHERAVNI BUTT JOSE Zaragoza Loc: [facility] MRI MOBILE 1 (Req'g Loc) Img Loc: [facility] Service: [facility] [place] [address] (Case [id number] COMPLETE)LUMBOSACRAL SPINE, 2 OR 3 VIEWS (RAD Detailed) CPT:61703 Reason for Study: pain Clinical History: [address] [address] Report Status: Verified Date Reported: MAY 16, 2024 Date Verified: MAY 16, 2024 Posting Machine Operator E-Sig:/ES/JEFF SADLER Report: Lumbar spine: AP, [...] Code: Primary Interpreting Staff: JEFF SADLER, RADIOLOGIST (Posting Machine Operator) /JEFF LEO [facility] May 09, 2024 03:59 PM CERVICAL SPINE WIT H FLEXION AND EXTENSION: MARION ZHENG [id number] -1995 M Exm Date: MAY 09, 2024@15:59 Req Phys: VIDAAVNI BUTT JOSE Zaragoza Loc: [facility] MRI MOBILE 1 (Req'g Loc) Img Loc: [facility] Service: Unknown [facility] [place] [address] (Case [id number] COMPLETE)CERVICAL SPINE WITH FLEXION AND E(RAD Detailed) CPT:66312 Reason for Study: pain Clinical History: [address], [place] [address] Report Status: Verified Date Reported: MAY 16, 2024 Date Verified: MAY 16, 2024 Posting Machine Operator E-Sig:/ES/JEFF SADLER Report: Cervical spine: AP, [...] Code: Primary Interpreting Staff: JEFF SADLER, RADIOLOGIST (Posting Machine Operator) /JEFF LEO [facility] May 09, 2024 03:05 PM MRI LUMBAR SPINE W /O CONTRAST: BRITTNEYMARION Haji [id number] -1995 M Ex Date: MAY 09, 2024@15:05 Req Phys: AVNI BARRON Loc: [facility] PAIN SPINE 6 (Req'g Loc Img Loc: [facility] MRI CONTRACT READ Service: [place] [address] (Case [id number] COMPLETE)MRI LUMBAR SPINE W/O CONTRAST (MRI Detailed) CPT:58271 CPT Modifiers : TC TECHNICAL COMPONENT Reason for Study: pain Clinical History: History of Trauma: No SYMPTOMS AND SIGNS: Duration Of Symptoms:> 12 weeks pain Plain films obtained ([facility] or Outside Hospital): Yes No Impressions found Risks and benefits of the procedure were discussed with the patient. The patient did understand and agree with the treatment plan. Report Status: Verified Date Reported: MAY 12, 2024 Date Verified: MAY 12, 2024 Posting Machine Operator E-Sig:/ES/BECCA MARIA Report: EXAMINATION: MRI LUMBAR SPINE [...] REQUIRED Primary Interpreting Staff: BECCA MARIA, RADIOLOGIST (Posting Machine Operator) /BECCA STER[facility]ING [facility] May 09, 2024 03:05 PM MRI CERVICAL SPINE W/O CONTRAST: MARION ZHENG [id number] -1995 M Exm Date: MAY 09, 2024@15:05 Req Phys: AVNI BARRON Pat Loc: [facility] PAIN SPINE 6 (Req'g Loc Img Loc: [facility] CONTRACT READ Service: [place] [address] (Case [id number] COMPLETE)MRI CERVICAL SPINE W/O CONTRAST (MRI Detailed) CPT:48746 CPT Modifiers : TC TECHNICAL COMPONENT Reason for Study: pain Clinical History: History of Trauma: No SYMPTOMS AND SIGNS: Duration Of Symptoms:> 12 weeks pain Plain films obtained ([facility] or Outside Hospital): Yes No Impressions found Risks and benefits of the procedure were discussed with the patient. The patient did understand and agree with the treatment plan. Report Status: Verified Date Reported: MAY 12, 2024 Date Verified: MAY 12, 2024 Posting Machine Operator E-Sig:/ES/BECCA MARIA Report: EXAMINATION: MRI NECK SPINE [...] REQUIRED Primary Interpreting Staff: BECCA MARIA, RADIOLOGIST (Posting Machine Operator) /[facility]CCA STER[facility]ING [facility] Encounter Notes: All associated encounter notes This section contains the clinical notes associated to the Encounter. Date/Time Encounter Note(s) Provider Source May 12, 2024 08:21 AM MENTAL HEALTH NOTE : LOCAL TITLE: [facility]IDENCE BASED PSYCHOTHERAPY NOTE (T) STANDARD TITLE: MENTAL HEALTH NOTE DATE OF NOTE: MAY 12, 2024@08:21 ENTRY DATE: MAY 12, 2024@08:21:56 AUTHOR: ADDIS CLOUD COSIGNER: URGENCY: STATUS: COMPLETED DBT Session #4 Mindfulness Skills Session Time and Duration: 10:02 am - 11:03 am 61 minutes assessment: 02.09.2023 DIAGNOSIS: PTSD ([place]); Insomnia; Depression; Personality D/O, Cluster B traits PATIENT'S STRENGTHS/ABILITIES: Self Identified: moved to new house Provider Identified: able to tolerate grief support groups, new move stressors w/o SI Active partnership in [employer] PATIENT'S ABILITIES 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 He presents on time to scheduled in person therapy appt. He reports he did work on DBT HW sheets, but forgot them. He reports use of mindfulness going well overall w/some barriers w/smelling and listening mindfulness activities d/t his cold. He reports no follow up w/roommates about their feelings related to his behavioral changes. He reports he is more active and involved w/child and home care and feels it is going well w/o need to discuss it more. Confirmation would like to proceed w/DBT today. DBT Manual utilized. Discussion about Mindfulness & How skills handouts. [place] is open to discussion about judgmental thoughts w/rigid thinking patterns noted and accepted by him. Review of how to apply How skills w/focus on nonjudgmentally. Review of present day emotions and unhealthy coping patterns. [place] demonstrates an understanding w/poor insight and application in relation to his coping w/past traumas. No other needs at this time. would like to meet again as scheduled w/requests for additional DBT appts to be scheduled d/t his routine appt attendance and schedule availability. is calm and stable at the end of the session with no SI/HI noted. INTERVENTIONS: Assessed mental health status and reviewed events since last session. SW assesses SI/HI. SW reviews the goals for session. SW offers emotional support and uses active listening. SW reviews DBT Skills building manual and reviews concepts w/ today. SW explores grief/trauma connections to emotional dysregulation and stuck points. SW reviews impact of trauma on relationship w/his son and coping. [place] confirms he continues to take his son to therapy. SW provides positive reinforcement as does report implementation of routine mindfulness and behavioral activation since last appt. 'S PARTICIPATION: x Actively participated in discussion Has a better understanding of therapeutic issues x Understood or demonstrated a new strategy/skill x Willing to practice discussed strategy/skill x Agrees to continue working towards treatment goals PLAN/HOMEWORK: 1. [place] to follow up with this SW for therapy 2. to call clinic/VCL as needed in between sessions 3. MH medication mgmt. as scheduled 4. to follow Suicide Prevention plan from Mar 23, 2023. 5. Mindfulness Nonjudgemental exercises daily w/additional worksheets to practice for 5A MENTAL STATUS EXAM: ORIENTATION AND CONSCIOUSNESS: Alert and attentive, Alert and oriented x 3 APPEARANCE AND BEHAVIOR: Cooperative and reasonable, walks independently, well kempt SPEECH: Normal rate/rhythm LANGUAGE: Intact MOOD AND AFFECT: Mood Slightly Depressed, Affect w/range PERCEPTUAL DISTURBANCE (Hallucinations, Illusions): None THOUGHT PROCESS AND ASSOCIATION: Normal, coherent THOUGHT CONTENT (delusions, Obsessions, etc.): No unusual thought content MEMORY: Intact SUICIDAL OR VIOLENT IDEATION: He denies SI/HI now or since last appt. Safety plan developed on Mar. presents as low acute and chronic intermediate risk of suicide w/o imminent risk of harm to self or others at this time. Risk Factors: ( ) Access to Means [...] follow up with the biweekly for DBT [place] is aware to contact the clinic or the [place]'s Crisis Line with concerns prior to the next scheduled visit. Evidence-Based Psychotherapy Suicide Prevention and Safety Planning Dialectical Behavior Therapy (DBT) The patient continues to engage in DBT. Whole Health approaches used during this visit: Mindfulness-Based Stress Reduction / [place] Calm Mindfulness-Based Stress Reduction (MBSR) is a structured program developed by Avinash Watson, Ph.D. This is to be used for all MBSR offerings to include: Mindfulness Based Eating Awareness Training (MB-EAT), Mindfulness-Based Cognitive Therapy (MBCT), Mindfulness-Based Relapse Prevention (MBRP), Mindfulness-Based Stress Reduction (MBSR), Mindfulness-Oriented Recovery Enhancement (MORE), Mindfulness Self-Compassion (MSC), VA CALM protocol. MBI's are structured mindfulness classes that include instruction in a sequence of specific mindfulness practices, group discussions, exercises and theory of mindfulness and how to apply them to deal more effectively with stress, illness, and the demands of daily life. /deanna/ ADDIS CROWDERV CLINICIAL HYDROGRAPHICAL TECHNICAL OFFICER Signed: 05/12/2024 15:42 ADDIS CLOUD [facility]
--- OUTSIDE RECORDS SUMMARY | 2024-05-26 09:00 | XMS_ITS | Encounter Summary ---
Author Name [facility] [place] Organization [facility] [place] [place] Address [address] [place] [address] Care Team Providers [employer] Name Role Phone ROSARIO ESCALERA Primary Care [...] Type Encounter Description Reason Provider Source May 26, 2024 01:00 PM STRESS MGMT CLASS [facility] - IND ICD-10-CM F60.9 Personality disorder, unspecified ADDIS CLOUD Sonya Encounter Template Text not used by [place] Assessments - Encounter Diagnoses This section includes the primary and secondary diagnoses documented for the Encounter. Date/Time Primary/Secondary Diagnosis Diagnosis Name Provider Source May 26, 2024 01:37 PM PRIMARY Personality disorder, unspecified ADDIS CLOUD [facility] May 26, 2024 01:37 PM SECONDARY Major depressive disorder, single episode, unspecified ADDIS CLOUD [facility] May 26, 2024 01:37 PM SECONDARY Post-traumatic stress disorder, chronic ADDIS CLOUD [facility] May 26, 2024 01:37 PM SECONDARY Primary insomnia ADDIS CLOUD [facility] Plan of Treatment: Future Appointments (+ 6 months) and Future Tests (+/- 45 days) The Plan of Treatment section includes future care activities for the patient [facility] [place] [facility] This section includes future appointments and future orders which are active, pending or scheduled. Future Appointments This section includes appointments that were scheduled to occur 6 months from the date of the Encounter, up to a maximum of 20 appointments. The data comes from all [place] treatment [facility]. Appointment Date/Time Appointment Type Appointme nt Facility Name Jun 04, 2024 08:30 AM [facility] Jun 06, 2024 11:30 AM AMBULATORY - PSYCHIATRY [facility] Jun 09, 2024 01:00 PM AMBULATORY - PSYCHIATRY [facility] Jun 19, 2024 09:45 AM AMBULATORY - NONE [facility] Jun 25, 2024 09:00 AM AMBULATORY [facility] PS[facility]ATRY [facility] Jun 25, 2024 09:30 AM AM[facility]ATORY - NONE [facility] Jun 25, 2024 02:00 PM AMBULATORY - NONE [facility] Jul 03, 2024 01:00 PM AMBULATORY - PSYCHIATRY [facility] Jul 11, 2024 09:00 AM AMBULATORY - SURGERY [facility] Jul 11, 2024 01:00 PM AMBULATORY - PSYCHIATRY [facility] Jul 15, 2024 03:00 PM AMBULATORY - SURGERY [facility] Jul 17, 2024 01:00 PM AMBULATORY - SURGERY [facility] Jul 18, 2024 01:00 PM AMBULATORY - PSYCHIATRY [facility] Jul 18, 2024 02:00 PM AMBULATORY - PSYCHIATRY [facility] Jul 21, 2024 09:30 AM AMBULATORY - SURGERY [facility] Jul 25, 2024 02:30 PM AMBULATORY - NONE [facility] Aug 07, 2024 02:00 PM AMBULATORY [facility] PS[facility]ATRY [facility] Aug 11, 2024 01:30 PM AMBULATORY - SURGERY [facility] Aug 13, 2024 03:30 PM AMBULATORY - PSYCHIATRY [facility] Aug 20, 2024 02:00 PM AMBULATORY - SURGERY [facility] Active, Pending, and Scheduled Orders This section includes a listing of several types of active, pending, and scheduled orders, including clinic medications orders, diagnostic test orders, procedure orders and consult orders; where the start date of the order is 45 days before the date of the Encounter or 45 days after the date of theEncounter. The data comes from all [place] treatment facilities. Test Date/Time Test Type Test Details Facility Name May 21, 2024 12:00 AM Laboratory - Chemi stry Order URINALYSIS URINE SP ONCE [facility] Lab Results: +/- 30 days of [...] Unit Interpretation Reference Range Specimen Type Comment Jun 19, 2024 09:49 AM [facility] LIPID PROFILE PLASMA Specimen Type: PLASMA Comment: DLDLREF RANGE: NEAR OR ABOVE OPTIMAL: 100-129 mg/dL BORDERLINE DLDLHIGH: 130-159 mg/dL HIGH: 160-189 mg/dL VERY HIGH: >=190 GLUCOSE The ADA recommends a fasting glucose of 99 mg/dL as the GLUCOSE upper limit of normal. TP Per package insert reference range for recumbent is 6.0 to 7.8 TP g/dL and for >60 y/o is lower by 0.2 g/dL. Plasma samples will TP generally have higher values (about 0.2 to 0.4 g/dL higher) due TP to presence of fibrinogen. TRIG REF RANGE: BORDERLINE HIGH: 150-199 mg/dL HIGH: 200-499 mg/dL TRIG VERY HIGH: >=500 mg/dL CHOL REF RANGE: BORDERLINE HIGH: 200-239 mg/dL HIGH: >=240 mg/dL HDLC Values >60 are a negative risk factor for heart disease. Ordering Provider: ROSARIO ESCALERA Report Released Date/Time: Nov 20, 2023 01:30 PM Reporting Lab: [facility] [id number] [facility] [id number] Performing Lab: [facility] [id number] [place] [id number] CHOLESTEROL 243 mg/dL H <199 LDL CHOLESTEROL 172 mg/dL H 0-99 HDL CHOLESTEROL 33 mg/dL L >40 TRIGLYCERIDE 284 mg/dL H <149 Jun 19, 2024 09:49 AM [facility] VITAMIN D (TOTAL) SERUM Specimen Type : SERUM No comment entered. Ordering Provider: ROSARIO ESCALERA Report Released Date/Time: Nov 20, 2023 01:30 PM Reporting Lab: [address] [phone] Performing Lab: [address] [address] VITAMIN D (TOTAL) 9 ng/mL L 30-60 Jun 19, 2024 09:49 AM [facility] MAGNESIUM PLASMA Specimen Type: PLASMA Comment: DLDLREF RANGE: NEAR OR ABOVE OPTIMAL: 100-129 mg/dL BORDERLINE DLDLHIGH: 130-159 mg/dL HIGH: 160-189 mg/dL VERY HIGH: >=190 GLUCOSE The ADA recommends a fasting glucose of 99 mg/dL as the GLUCOSE upper limit of normal. TP Per package insert reference range for recumbent is 6.0 to 7.8 TP g/dL and for >60 y/o is lower by 0.2 g/dL. Plasma samples will TP generally have higher values (about 0.2 to 0.4 g/dL higher) due TP to presence of fibrinogen. TRIG REF RANGE: BORDERLINE HIGH: 150-199 mg/dL HIGH: 200-499 mg/dL TRIG VERY HIGH: >=500 mg/dL CHOL REF RANGE: BORDERLINE HIGH: 200-239 mg/dL HIGH: >=240 mg/dL HDLC Values >60 are a negative risk factor for heart disease. Ordering Provider: ROSARIO ESCALERA Report Released Date/Time: Nov 20, 2023 01:30 PM Reporting Lab: [address] [phone] Performing Lab: [address] [phone] MAGNESIUM 2.2 mg/dL 1.6-2.6 Jun 19, 2024 09:49 AM [facility] COMPREHENSIVE METABOLIC PANEL PLASMA S pecimen Type: PLASMA Comment: DLDLREF RANGE: NEAR OR ABOVE OPTIMAL: 100-129 mg/dL BORDERLINE DLDLHIGH: 130-159 mg/dL HIGH: 160-189 mg/dL VERY HIGH: >=190 GLUCOSE The ADA recommends a fasting glucose of 99 mg/dL as the GLUCOSE upper limit of normal. TP Per package insert reference range for recumbent is 6.0 to 7.8 TP g/dL and for >60 y/o is lower by 0.2 g/dL. Plasma samples will TP generally have higher values (about 0.2 to 0.4 g/dL higher) due TP to presence of fibrinogen. TRIG REF RANGE: BORDERLINE HIGH: 150-199 mg/dL HIGH: 200-499 mg/dL TRIG VERY HIGH: >=500 mg/dL CHOL REF RANGE: BORDERLINE HIGH: 200-239 mg/dL HIGH: >=240 mg/dL HDLC Values >60 are a negative risk factor for heart disease. Ordering Provider: ROSARIO ESCALERA Report Released Date/Time: Nov 20, 2023 01:30 PM Reporting Lab: [address] [phone] Performing Lab: [address] [address] ALBUMIN 4.8 g/dL 3.5-4.8 ALKALINE PHOSPHATASE 73 U/L 40-150 ALT/SGPT 25 U/L <55 AST/SGOT 21 U/L 10-40 BUN 12.0 mg/dL 8.9-20.6 CALCIUM 9.5 mg/dL 8.6-10.3 CREATININE 1.0 mg/dL 0.7-1.3 CO2 21 mmol/L L 22-30 GLUCOSE 94 mg/dL 74-99 PROTEIN, TOTAL 7.7 g/dL 6.4-8.3 SODIUM 137 mmol/L 134-144 CHLORIDE 107 mmol/L 99-112 BILIRUBIN, TOTAL 0.7 mg/dL 0.2-1.2 POTASSIUM 4.3 mmol/L 3.5-5.1 ANION GAP 13 mmol/L 10-20 EGFR (CALCULATED) 104.0 mL/min Jun 19, 2024 09:49 AM [facility] TSH PLASMA Specimen Type: PLASMA Comment: DLDLREF RANGE: NEAR OR ABOVE OPTIMAL: 100-129 mg/dL BORDERLINE DLDLHIGH: 130-159 mg/dL HIGH: 160-189 mg/dL VERY HIGH: >=190 GLUCOSE The ADA recommends a fasting glucose of 99 mg/dL as the GLUCOSE upper limit of normal. TP Per package insert reference range for recumbent is 6.0 to 7.8 TP g/dL and for >60 y/o is lower by 0.2 g/dL. Plasma samples will TP generally have higher values (about 0.2 to 0.4 g/dL higher) due TP to presence of fibrinogen. TRIG REF RANGE: BORDERLINE HIGH: 150-199 mg/dL HIGH: 200-499 mg/dL TRIG VERY HIGH: >=500 mg/dL CHOL REF RANGE: BORDERLINE HIGH: 200-239 mg/dL HIGH: >=240 mg/dL HDLC Values >60 are a negative risk factor for heart disease. Ordering Provider: ROSARIO ESCALERA Report Released Date/Time: Nov 20, 2023 01:30 PM Reporting Lab: [address] [phone] Performing Lab: [address] [address] TSH 4.701 u[IU]/mL 0.350-4.940 Jun 19, 2024 09:49 AM [facility] CBC BLOOD Specimen Type: BLOOD Comment: Manual Differential Performed. RBC and PLT morphology reviewed Slide reviewed for lymphocytosis Ordering Provider: ROSARIO ESCALERA Report Released Date/Time: Nov 20, 2023 01:30 PM Reporting Lab: [address] [address] Performing Lab: [address] [address] WBC COUNT 14.7 10*3/uL H 3.6-11.0 RBC COUNT 6.11 10*6/uL H 4.47-5.83 HGB 16.7 g/dL 13.6-17.4 HCT 49.1 40.0-51.0 MCV 80.4 fL 80.0-96.0 MCH 27.3 pg 27.0-31.0 MCHC 33.9 g/dL 31.5-36.5 PLT 430 10*3/uL H 150-400 NUCLEATED RBC/100WBC 0.2 /100{WBCs} RDW 13.6 11.2-15.8 MPV 9.5 fL 7.4-11.4 SEGS % 47 L 54-78 EOSINO % 0 0-3 BASO % 0 0-3 ANISOCYTOSIS Present MONO % 6 4-8 LYMPHOCYTE % 47 21-51 MANUAL SLIDE REVIEW Performed-See comments ABS NEUTROPHIL COUNT (MANUAL) 6.9 10*3/uL 1.9-8.6 ABS LYMPHOCYTE COUNT (MANUAL) 6.9 10*3/uL H 0.8-5.0 ABS MONOCYTE COUNT (MANUAL) 0.9 10*3/uL 0.1-0.9 ABS EOSINOPHIL COUNT (MANUAL) 0.0 10*3/uL 0.0-0.3 ABS BASOPHIL COUNT (MANUAL) 0.0 10*3/uL 0.0-0.3 Social History: Smoking Status (Most current) and [...] Facil ity May 18, 2023 02:00 PM [facility] < 5 [facility] Tobacco Use History This section includes a history of the smoking, or tobacco-related health factors, that were collected on or before the date of the Encounter. The data comes from the [place] facility where the Encounter took place. Date/Time Smoking Status/Tobacco Use Comment F acility May 18, 2023 02:00 PM [facility] TO < 5 YRS [facility] [...] ADVANCE DIRECTIVE DISCUSSION SABINA NAIR [facility] Radiology Reports: +/- 30 days of [...] the Encounter. The data comes from all [place] treatment facilities. Date/Time Radiology Report Provider Source May 09, 2024 03:59 PM CERVICAL SPINE WIT H FLEXION AND EXTENSION: MARION ZHENG [id number] -1995 M Exm Date: MAY 09, 2024@15:59 Req Phys: AVNI BARRON Pat Loc: [facility] MRI MOBILE 1 (Req'g Loc) Img Loc: [facility] Service: [place] [facility] [place] [address] (Case [id number] COMPLETE)CERVICAL SPINE WITH FLEXION AND E(RAD Detailed) CPT:52762 Reason for Study: pain Clinical History: [address] [id number] Report Status: Verified Date Reported: MAY 16, 2024 Date Verified: MAY 16, 2024 Rubber Flap Cutter E-Sig:/ES/JEFF HENLEY Report: Cervical spine: AP, lateral, open mouth, [...] clinical information is suggested. Finalized by Jeff Henley MD On 05/16/2024 10:10 AM Primary Diagnostic Code: Primary Interpreting Staff: JEFF HENLEY, RADIOLOGIST (Rubber Flap Cutter) /JEFF [facility] May 09, 2024 03:59 PM LUMBOSACRAL SPINE, 2 OR 3 VIEWS: MARION ZHENG [id number] -1995 Exm Date: MAY 09, 2024@15:59 Req Phys: AVNI BARRON Mila Loc: [facility] MRI MOBILE 1 (Req'g Loc) Img Loc: [facility] Service: Unknown [facility] [facility] [place] [address] (Case [id number] COMPLETE)LUMBOSACRAL SPINE, 2 OR 3 VIEWS (RAD Detailed) CPT:51450 Reason for Study: pain Clinical History: [address] [place], [place] [address] Report Status: Verified Date Reported: MAY 16, 2024 Date Verified: MAY 16, 2024 Rubber Flap Cutter E-Sig:/ES/JEFF HENLEY Report: Lumbar spine: AP, lateral and L5-S1 [...] body of indeterminate age. Finalized by Jeff Henley MD On 05/16/2024 10:09 AM Primary Diagnostic Code: Primary Interpreting Staff: JEFF HENLEY, RADIOLOGIST (Rubber Flap Cutter) /JEFF [facility] May 09, 2024 03:05 PM MRI LUMBAR SPINE W /O CONTRAST: MARION ZHENG [id number] -1995 M Exm Date: MAY 09, 2024@15:05 Req Phys: AVNI BARRON Loc: [facility] PAIN SPINE 6 (Req'g Loc Img Loc: [facility] MRI CONTRACT READ Service: [place] [address] (Case [id number] COMPLETE)MRI LUMBAR SPINE W/O CONTRAST (MRI Detailed) CPT:78608 CPT Modifiers : TC TECHNICAL COMPONENT Reason for Study: pain Clinical History: History of Trauma: No SYMPTOMS AND SIGNS: Duration Of Symptoms:> 12 weeks pain Plain films obtained ([facility] or Outside Hospital): Yes No Impressions found Risks and benefits of the procedure were discussed with the patient. The patient did understand and agree with the treatment plan. Report Status: Verified Date Reported: MAY 12, 2024 Date Verified: MAY 12, 2024 Rubber Flap Cutter E-Sig:/DEANNA/BECCA CHING Report: EXAMINATION: MRI LUMBAR SPINE W/O DYE [...] NO ALERT REQUIRED Finalized by - Becca Ching Signed Date Time - 05/12/2024 15:01 Primary Diagnostic Code: NO ALERT REQUIRED Primary Interpreting Staff: BECCA CHING, RADIOLOGIST (Rubber Flap Cutter) /[facility] May 09, 2024 03:05 PM MRI CERVICAL SPINE W/O CONTRAST: MARION ZHENG [id number] -1995 M Exm Date: MAY 09, 2024@15:05 Req Phys: AVNI BARRON Loc: [facility] PAIN SPINE MD 6 (Req'g Loc Img Loc: [facility] MRI CONTRACT READ [place] [address] (Case [id number] COMPLETE)MRI CERVICAL SPINE W/O CONTRAST (MRI Detailed) CPT:35620 CPT Modifiers : TC TECHNICAL COMPONENT Reason for Study: pain Clinical History: History of Trauma: No SYMPTOMS AND SIGNS: Duration Of Symptoms:> 12 weeks pain Plain films obtained ([facility] or Outside Hospital): Yes No Impressions found Risks and benefits of the procedure were discussed with the patient. The patient did understand and agree with the treatment plan. Report Status: Verified Date Reported: MAY 12, 2024 Date Verified: MAY 12, 2024 Rubber Flap Cutter E-Sig:/DEANNA/BECCA CHING Report: EXAMINATION: MRI NECK SPINE W/O DYE [...] NO ALERT REQUIRED Primary Interpreting Staff: BECCA CHING, RADIOLOGIST (Rubber Flap Cutter) /[facility] Encounter Notes: All associated encounter notes This section contains the clinical notes associated to the Encounter. Date/Time Encounter Note(s) Provider Source May 26, 2024 01:03 PM MENTAL HEALTH NOTE : LOCAL TITLE: [facility] BASED PSYCHOTHERAPY NOTE (T) STANDARD TITLE: MENTAL HEALTH NOTE DATE OF NOTE: MAY 26, 2024@13:03 ENTRY DATE: MAY 26, 2024@13:03:16 AUTHOR: ADDIS CLOUD COSIGNER: URGENCY: STATUS: COMPLETED DBT Session #5 Mindfulness Skills Session Time and Duration: 1:00 pm - 1:28 pm 28 minutes assessment: 02.09.2023 DIAGNOSIS: PTSD (SC); Insomnia; Depression; Personality D/O, Cluster B traits PATIENT'S STRENGTHS/ABILITIES: Self Identified: moved to new house Provider Identified: able to tolerate grief support groups, new move stressors w/o SI Active partnership in [employer] PATIENT'S ABILITIES 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 Goal: I want to learn how to approach my life in a more even and flexible way. Goal: Increase Philomath's ability to make sense of traumatic experiences, and feel the natural emotions associated with them. PROGRESS TOWARDS GOAL: Minimal progress clinical reminders due: None TYPES OF THERAPY: Individual METHOD OF THERAPY: DBT Skills building DBT Skills Training: Module I Mindfulness Skills; Manual Handouts & Worksheets Handouts 4 Philomath is 28 y/o male w/100% SC being treated in Specialty for therapy. He presents on time to scheduled in person therapy appt. He presents w/DBT HW sheets w/some activities completed from 2 sessions ago and shares he forgot since last appt. Review of discrepancy w/this SW and Chaplains' note related to his efforts towards DBT HW and mindfulness exercises. He reports he is using breathing techniques in martial art classes 3x a week which he began this summer. Review of the importance of prioritizing skills and goals w/distress tolerance. Confirmation would like to proceed w/DBT today & is committed to making more attempts of material application. DBT Manual utilized. Discussion about Mindfulness & Observe handouts. His attempts for Mindfulness exercises reviewed. He is willing to try mindfulness exercise in appt today w/review of barriers d/t his cognitive distortions. Review of role of mindfulness in distress tolerance. Philomath is open to review of judgmental thoughts on experiences. Review of how to apply How skills w/focus on nonjudgmentally. would like to meet again as scheduled. is calm and stable at the end of the session with no SI/HI noted. INTERVENTIONS: Assessed mental health status and reviewed events since last session. SW assesses SI/HI. SW reviews the goals for session. SW offers emotional support and uses active listening. SW reviews DBT Skills building manual and reviews concepts w/Philomath today. SW uses Mindfulness exercise and while it is assesses to be a physically relaxing exercise w/breathing changes they review role of stuck points on his ability to connect to present w/o judgement. 'S PARTICIPATION: x Actively participated in discussion Has a better understanding of therapeutic issues x Understood or demonstrated a new strategy/skill x Willing to practice discussed strategy/skill x Agrees to continue working towards treatment goals PLAN/HOMEWORK: 1. to follow up with this SW for therapy 2. to call clinic/V[facility] as needed in between sessions 3. medication mgmt. as scheduled 4. Philomath to follow Suicide Prevention plan from Mar 23, 2023. 5. Mindfulness Nonjudgemental exercises daily w/additional worksheets to practice for 5A- he is to document his attempts w/dates and reflection MENTAL STATUS EXAM: ORIENTATION AND CONSCIOUSNESS: Alert [...] last appt. Safety plan developed on Mar. Philomath presents as low acute and chronic intermediate [...] illness, and the demands of daily life. Alerting [place] as Philomath does not have [facility] link yet for upcoming appt on 05.28.24; he plans to r/s his PT appt so he can have full session time w/BLAZE Taylor /deanna/ ADDIS HARDY CLINICIAL OUTPATIENT INTERVIEWING CLERK Signed: 05/26/2024 13:37 Receipt Acknowledged By: 05/26/2024 15:02 /deanna/ CHAPLAIN BLADIMIR VENCES MDiv ADDIS [facility]
--- OUTSIDE RECORDS SUMMARY | 2024-05-26 09:30 | XMS_ITS | Encounter Summary ---
Author Name [facility] [place] [facility] [place] [facility] [place] [facility] [place] Address [address] [place] [address] Care Team Providers Care Game Tester Name Role Phone ROSARIO ESCALERA Primary Care [...] Description Reason Provider Source May 26, 2024 01:30 PM MTMS BY LISA LÓPEZ [facility] ICD-10-CM F43.12 Post-traumatic stress disorder, chronic VALENTINA TENORIO Encounter Template Text not used by [place] Assessments - Encounter Diagnoses This section includes the primary and secondary diagnoses documented for the Encounter. Date/Time Primary/Secondary Diagnosis Diagnosis Name Provider Source May 27, 2024 04:26 PM PRIMARY Post-traumatic stress disorder, chronic VALENTINA TENORIO CB May 27, 2024 04:26 PM SECONDARY Major depressive disorder, single episode, unspecified VALENTINA TENORIO [facility] May 27, 2024 04:26 PM SECONDARY Personality disorder, unspecified WILLBORN,VALENTINA T J DANN [facility] May 27, 2024 04:26 PM SECONDARY Primary insomnia VALENTINA TENORIO [facility] May 27, 2024 04:26 PM SECONDARY Suicidal ideations VALENTINA TENORIO [facility] Plan of Treatment: Future Appointments (+ 6 months) and Future Tests (+/- 45 days) The Plan of Treatment section includes future care activities for the patient from all [place] [facility]. This section includes future appointments and future orders which are active, pending or scheduled. Future Appointments This section includes appointments that were scheduled to occur 6 months from the date of the Encounter, up to a maximum of 20 appointments. The data comes from all [place] treatment [facility]. Appointment Date/Time Appointment Type Appointme nt Facility Name Jun 04, 2024 08:30 AM AMBULATORY - REHAB MEDICIN E [facility] Jun 06, 2024 11:30 AM AMBULATORY - PSYCHIATRY [facility] Jun 09, 2024 01:00 PM AMBULATORY - PSYCHIATRY [facility] Jun 19, 2024 09:45 AM AMBULATORY - NONE [facility] Jun 25, 2024 09:00 AM AMBULATORY - PSYCHIATRY [facility] Jun 25, 2024 09:30 AM AMBULATORY - NONE [facility] Jun 25, 2024 02:00 PM [facility] Jul 03, 2024 01:00 PM AMBULATORY - PSYCHIATRY [facility] Jul 11, 2024 09:00 AM AMBULATORY - SURGERY [facility] Jul 11, 2024 01:00 PM AMBULATORY - PSYCHIATRY [facility] Jul 15, 2024 03:00 PM AMBULATORY - SURGERY [facility] Jul 17, 2024 01:00 PM AMBULATORY - SURGERY [facility] Jul 18, 2024 01:00 PM AMBULATORY - PSYCHIATRY [facility] Jul 18, 2024 02:00 PM AMBULATORY - PSYCHIATRY [facility] Jul 21, 2024 09:30 AM AMBULATORY - SURGERY [facility] Jul 25, 2024 02:30 PM AMBULATORY - NONE [facility] Aug 07, 2024 02:00 PM AMBULATORY - PSYCHIATRY [facility] Aug 11, 2024 01:30 PM AMBULATORY - SURGERY [facility] Aug 13, 2024 03:30 PM AMBULATORY - PSYCHIATRY [facility] Aug 20, 2024 02:00 PM AMBULATORY - SURGERY [place] Active, Pending, and Scheduled Orders This section includes a listing of several types of active, pending, and scheduled orders, including clinic medications orders, diagnostic test orders, procedure orders and consult orders; where the start date of the order is 45 days before the date of the Encounter or 45 days after the date of theEncounter. The data comes from all [place] treatment facilities. Test Date/Time Test Type Test Details Facility Name May 21, 2024 12:00 AM Laboratory - Chemi stry Order URINALYSIS URINE SP ONCE [facility] Lab Results: +/- 30 days of the encounter This section includes the Chemistry and Hematology Lab Results on record with [place] for the patient. Radiology Reports and Pathology Reports are provided separately, in subsequent sections. Lab Results This section contains the Chemistry/Hematology Results that were resulted 30 days before or 30 daysafter the date of the Encounter. Date/Time Source Result Type Result - Unit Interpretation Reference Range Specimen Type Comment Jun 19, 2024 09:49 AM [facility] LIPID PROFILE PLASMA Specimen Type: PLASMA [...] Nov 20, 2023 01:30 PM Reporting Lab: [address] [address] Performing Lab: [address] [address] CHOLESTEROL 243 mg/dL H <199 LDL CHOLESTEROL 172 mg/dL H 0-99 HDL CHOLESTEROL 33 mg/dL L >40 TRIGLYCERIDE 284 mg/dL H <149 Jun 19, 2024 09:49 AM [facility] MAGNESIUM PLASMA Specimen Type: PLASMA Comment: [...] Nov 20, 2023 01:30 PM Reporting Lab: [address] [address] Performing Lab: [address] [address] MAGNESIUM 2.2 mg/dL 1.6-2.6 Jun 19, 2024 09:49 AM [facility] VITAMIN D (TOTAL) SERUM Specimen Type : SERUM No comment entered. Ordering Provider: ROSARIO ESCALERA Report Released Date/Time: Nov 20, 2023 01:30 PM Reporting Lab: [address] [address] Performing Lab: [address] [address] VITAMIN D (TOTAL) 9 ng/mL L 30-60 Jun 19, 2024 09:49 AM [facility] TSH PLASMA Specimen Type: PLASMA Comment: [...] Nov 20, 2023 01:30 PM Reporting Lab: [address] [address] Performing Lab: [address] [address] TSH 4.701 u[IU]/mL 0.350-4.940 Jun 19, 2024 09:49 AM [facility] COMPREHENSIVE METABOLIC PANEL PLASMA S pecimen [...] Nov 20, 2023 01:30 PM Reporting Lab: [address] [address] Performing Lab: [address] [address] ALBUMIN 4.8 g/dL 3.5-4.8 ALKALINE PHOSPHATASE 73 [...] 104.0 mL/min Jun 19, 2024 09:49 AM [facility] CBC BLOOD Specimen Type: BLOOD Comment: Manual Differential Performed. RBC and PLT morphology reviewed Slide reviewed for lymphocytosis Ordering Provider: ROSARIO ESCALERA Report Released Date/Time: Nov 20, 2023 01:30 PM Reporting Lab: [address] [address] Performing Lab: [address] [address] WBC COUNT 14.7 10*3/uL H 3.6-11.0 RBC [...] 18, 2023 02:00 PM [place] [facility] [place] Use History This section includes a history of the smoking, or tobacco-related health factors, that were collected on or before the date of the Encounter. The data comes from the [place] facility where the Encounter took place. Date/Time Smoking Status/Tobacco Use Comment F acility May 18, 2023 02:00 PM VA-TOBACCO QUIT 1 TO < 5 YRS [facility] Advance Directives: All historical and current [...] 22, 2023 ADVANCE DIRECTIVE DISCUSSION SABINA NAIR [facility] Radiology Reports: +/- 30 days of [...] SPINE, 2 OR 3 VIEWS: MARION ZHENG [id number] -1995 M Exm Date: MAY 09, 2024@15:59 Req Phys: MandieASHERAVNI BUTT JOSE Zaragoza Loc: PRM MRI MOBILE 1 (Req'g Loc) Img Loc: [facility] Service[facility] [place] [place] [address] (Case [id number] COMPLETE)LUMBOSACRAL SPINE, 2 OR 3 VIEWS (RAD Detailed) CPT:50800 Reason for Study: pain Clinical History: [address] [place] [address] Report Status: Verified Date Reported: MAY 16, 2024 Date Verified: MAY 16, 2024 Manager Banquet E-Sig:/ES/JEFF HENLEY Report: Lumbar spine: AP, lateral [...] Code: Primary Interpreting Staff: JEFF HENLEY, RADIOLOGIST (Manager Banquet) /JEFF LEO [facility] May 09, 2024 03:59 PM CERVICAL SPINE WIT H FLEXION AND EXTENSION: MARION ZHENG [id number] -1995 M Exm Date: MAY 09, 2024@15:59 Req Phys: VIDAAVNI BUTT JOSE Zaragoza Loc: PRM MRI MOBILE 1 (Req'g Loc) Img Loc: [facility] Service: [place] [facility] [address] (Case [id number] COMPLETE)CERVICAL SPINE WITH FLEXION AND E(RAD Detailed) CPT:70103 Reason for Study: pain Clinical History: [address], [place] [address] Report Status: Verified Date Reported: MAY 16, 2024 Date Verified: MAY 16, 2024 Manager Banquet E-Sig:/ES/JEFF HENLEY Report: Cervical spine: AP, lateral, [...] Code: Primary Interpreting Staff: JEFF HENLEY, RADIOLOGIST (Manager Banquet) /JEFF LEO CB May 09, 2024 03:05 PM MRI LUMBAR SPINE W /O CONTRAST: BRITTNEYMARION Haji [id number] -1995 M Ex Date: MAY 09, 2024@15:05 Req Phys: AVNI BARRON Loc: HALIE PAIN SPINE 6 (Req'g Loc Img Loc: [facility] MRI CONTRACT READ Service: [place] [address] (Case [id number] COMPLETE)MRI LUMBAR SPINE W/O CONTRAST (MRI Detailed) CPT:99802 CPT Modifiers : TC TECHNICAL COMPONENT Reason for Study: pain Clinical History: History of Trauma: No SYMPTOMS AND SIGNS: Duration Of Symptoms:> 12 weeks pain Plain films obtained ([facility] or Outside Hospital): Yes No Impressions found Risks and benefits of the procedure were discussed with the patient. The patient did understand and agree with the treatment plan. Report Status: Verified Date Reported: MAY 12, 2024 Date Verified: MAY 12, 2024 Manager Banquet E-Sig:/ES/BECCA CHING Report: EXAMINATION: MRI LUMBAR SPINE W/O [...] REQUIRED Primary Interpreting Staff: BECCA CHING, RADIOLOGIST (Manager Banquet) /BECCA STERLING CB May 09, 2024 03:05 PM MRI CERVICAL SPINE W/O CONTRAST: MARION ZHENG [id number] -1995 M Exm Date: MAY 09, 2024@15:05 Req Phys: AVNI BARRON Pat Loc: HALIE PAIN SPINE 6 (Req'g Loc Img Loc: [facility] CONTRACT READ Service: [place] [address] (Case [id number] COMPLETE)MRI CERVICAL SPINE W/O CONTRAST (MRI Detailed) CPT:34388 CPT Modifiers : TC TECHNICAL COMPONENT Reason for Study: pain Clinical History: History of Trauma: No SYMPTOMS AND SIGNS: Duration Of Symptoms:> 12 weeks pain Plain films obtained ([facility] or Outside Hospital): Yes No Impressions found Risks and benefits of the procedure were discussed with the patient. The patient did understand and agree with the treatment plan. Report Status: Verified Date Reported: MAY 12, 2024 Date Verified: MAY 12, 2024 Manager Banquet E-Sig:/ES/BECCA CHING Report: EXAMINATION: MRI NECK SPINE W/O [...] REQUIRED Primary Interpreting Staff: BECCA CHING, RADIOLOGIST (Manager Banquet) /BECCA STERLING [facility] Encounter Notes: All associated encounter notes This section contains the clinical notes associated to the Encounter. Date/Time Encounter Note(s) Provider Source May 26, 2024 01:31 PM PRIMARY CARE NURSI NG NOTE: LOCAL TITLE: OUTPATIENT NURSING INTAKE NOTE (T) STANDARD TITLE: PRIMARY CARE NURSING NOTE DATE OF NOTE: MAY 26, 2024@13:31 ENTRY DATE: MAY 26, 2024@13:31:55 AUTHOR: BLANK MENG EXP COSIGNER: URGENCY: STATUS: [...] problems with drugs and/or alcohol? No 5. [facility] pocket card was provided to patient. No/patient declined Last [facility] MAP ('s [place], [employer]): 12/27/2023 Personal Health Plan [place] [place], [employer] (MAP) pain management /es/ BLANK MENG LICENSED PRACTICAL NURSE Signed: 05/26/2024 13:32 BLANK MENG [facility] May 26, 2024 12:54 PM PSYCHIATRY NOTE: LOCAL TITLE: [facility] PSYCHIATRY NOTE (T) STANDARD TITLE: PSYCHIATRY NOTE DATE OF NOTE: MAY 26, 2024@12:54 ENTRY DATE: MAY 26, 2024@12:54:09 AUTHOR: ABAD TENORIO EXP COSIGNER: URGENCY: STATUS: COMPLETED PSYCHIATRIC EVALUATION NOTE Time in: 1331 Time out: 1410 Total time: 39 min AI is a 28yom w/ a MH h/o PTSD, depressive DO unspecified, personality DO unspecified, and insomnia. Chart and available information reviewed. CC: sleep HPI: Marion was last interviewed 04/29/24 where he reported adherence to sertraline, stating perceptions of tolerability with use. Sleep dysregulation remains a recurrent concern, with a recent period of time feeling that he wasn't getting a deep or restorative sleep. Mood had been pretty stable . Patience had been well. Discussed positive changes in the household, stating it's more of a change on my part, trying to be more present, being more active in responsibilities . Variable physical activity, influenced by moods. Can't get my brain to slow down, relax enough to go to sleep . Denied intrusive thoughts or negative thought content. Mirtazapine remained without a bulk of utility for him and he would like to trial an alternative that is not trazodone. We reviewed this and approved trial of amitriptyline 20mg. Depression remained a concern, where he elected to monitor before further investing into SSRI, which previously had limited yield appreciations on titration. Will monitor. seen for F appt as planned. Discussed his holidays, having had an impromptu thanksgiving at his place with roommates and their family. [place] turned out good.. wasn't too crowded . Otherwise spent time with family at father's home in [place]. Discussed amitriptyline trial limited to the last few weeks of 10mg nightly dosing, denying any semblance of tolerability concern or benefit. We reviewed a plan to continue titrating, as tolerated, to sleep facilitating dose, while further assessing with time the influence this may have on headache prevention; a collaborative discussion with neurologist. We reviewed expectations and monitoring for this and he denied concerns. SSRI use with present stability; I think we're good, I don't think it's necessary to see the increase again.. I think when I get sleep, it feels more meaningful . Despite residuals of sleep, where TCA may target, he is hopeful to see more benefit from medication investment. He is contemplating a later dosing time, given a later bedtime typically. I think I'm taking it too early, fighting through it . We reviewed this and some concerns for sleep hygiene. Discussed reminders on phone or other adherence prompts. My brain is too engaged to be able to fall asleep . Reviewed sleep hygiene tenets, in the setting of frequent evening electronics use. Martial arts classes three times weekly, with decent attendance lately. Helps keep me active and take my mind off things . No particular stressors of late, although reviewing his appointments, particularly therapy, where topics of discussion will carry weight into the next couple days. Typically, he is able to manage; sometimes I just have to ride it out . Denied negative thought content on prompting. Family gathering for [place] at father's home as well. Will monitor as planned. Denied SI/HI at present. SUBSTANCE USE HX: Nicotine- vaped nicotine; deferred cessation interest at this time Alcohol- denied Illicit- denied PSYCHIATRIC MEDICATION HISTORY: According to CPRS and JLV remote data of [place] outpatient Rx, the pt has a h/o TRAZODONE (non-VA); ESCITALOPRAM (up to 20mg daily, non-VA); HYDROXYZINE (25mg PRN anxiety, non-VA); SERTRALINE. FLUOXETINE (20mg non-VA); ARIPIPRAZOLE (2mg non-VA). Since engagement with this typewriter tester: SERTRALINE; LITHIUM. VENLAFAXINE. ALLERGIES/ADVERSE REACTIONS Type: DRUG [...] URINE OPIATES NEG Ref: NEG Vitals: T: 97.3 F [36.3 C] (05/26/2024 13:28) P: 56 (05/26/2024 13:28) R: 16 (05/26/2024 13:28) BP: 122/83 (05/26/2024 13:28) W: 177.3 lb [80.42 kg] (05/08/2024 12:50) BMI: 25.5 Mental Status Exam: Kacy: 28yom who appears stated age, dressed in casual attire, brown hair and appiah, orients to interviewer with good eye contact, seated comfortably Level of Consciousness: A&O x4 Psychomotor Activity: normal Speech: regular volume, rate and tone Mood: okay.. depends Affect: restricted w/ some range Behavior: cooperative [...] of harm to self or others ASSESSMENT: [place] with PTSD, depressive DO unspecified, personality DO unspecified, and insomnia, engaging in a [...] titration yielding questions on benefit over time. [place] augmentation, at one time viewed as supportive [...] - continue sertraline 50mg daily - continue trial of amitriptyline up to 20mg HS -> monitor: mood, sleep, anxiety, SUDHEER -> [...] RECONCILIATION REPORT reviewed and discussed with patient. [place] prescription medications: Patient verifies that they are [...] list of medications. /deanna/ ABAD TENORIO CLINICAL BIOLOGICS SPECIALIST Signed: 05/27/2024 16:26 ABAD TENORIO [facility]
--- OUTSIDE RECORDS SUMMARY | 2024-05-28 11:00 | XMS_ITS ---
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 Date/Time Primary/Secondary Diagnosis Diagnosis Name Provider Source May 29, 2024 09:40 AM PRIMARY Spiritual or orthodoxy counseling BLADIMIR VENCES [facility] Plan of Treatment: Future Appointments [...] 20 appointments. The data comes from all [facility]. Appointment Date/Time Appointment Type Appointme nt Facility Name Jun 04, 2024 08:30 AM AMBULATORY - REHAB MEDICIN E [facility] Jun 06, 2024 11:30 AM AMBULATORY - PSYCHIATRY [facility] Jun 09, 2024 01:00 PM AMBULATORY - PSYCHIATRY CL [facility] Jun 19, 2024 09:45 AM AMBULATORY - NONE [facility] Jun 25, 2024 09:00 AM AMBULATORY - PSYCHIATRY [facility] Jun 25, 2024 09:30 AM [facility]BUL[facility]ORY - NONE [facility] Jun 25, 2024 02:00 PM AMBULATORY - NONE [facility] Jul 03, 2024 01:00 PM AMBULATORY - PSYCHIATRY [facility] Jul 11, 2024 09:00 AM AMBULATORY - SURGERY [facility] Jul 11, 2024 01:00 PM AMBULATORY - PSYCHIATRY [facility] Jul 15, 2024 03:00 PM AMBULATORY - SURGERY [facility] Jul 17, 2024 01:00 PM AMBULATORY - SURGERY [facility] Jul 18, 2024 01:00 PM AMBULATORY - PSYCHIATRY [facility] Jul 18, 2024 02:00 PM AMBULATORY - PSYCHIATRY [facility] Jul 21, 2024 09:30 AM AMBULATORY - SURGERY [facility] Jul 25, 2024 02:30 PM AMBULATORY - NONE [facility] Aug 07, 2024 02:00 PM AMBULATORY - PSYCHIATRY [facility] Aug 11, 2024 01:30 PM AMBULATORY - SURGERY [facility] Aug 13, 2024 03:30 PM AMBULATORY - PSYCHIATRY [facility] Aug 20, 2024 02:00 PM AMBULATORY - SURGERY [facility] Active, Pending, and Scheduled Orders This section includes a listing of several types of active, pending, and scheduled orders, including clinic medications orders, diagnostic test orders, procedure orders and consult orders; where the start date of the order is 45 days before the date of the Encounter or 45 days after the date of theEncounter. The data comes from all [facility]. Test Date/Time Test Type Test Details Facility Name May 21, 2024 12:00 AM Laboratory - Chemi stry Order URINALYSIS URINE SP ONCE [facility] Lab Results: +/- 30 days of [...] Type Comment Jun 19, 2024 09:49 AM [facility] [...] Nov 20, 2023 01:30 PM Reporting Lab: [facility] [id number] [place] [id number] Performing Lab: [facility] [id number] [place] [phone] CHOLESTEROL 243 mg/dL H <199 LDL CHOLESTEROL 172 mg/dL H 0-99 HDL CHOLESTEROL 33 mg/dL L >40 TRIGLYCERIDE 284 mg/dL H <149 Jun 19, 2024 09:49 AM [facility] MAGNESIUM PLASMA Specimen Type: PLASMA Comment: [...] Nov 20, 2023 01:30 PM Reporting Lab: [address] [address] Performing Lab: [address] [address] MAGNESIUM 2.2 mg/dL 1.6-2.6 Jun 19, 2024 09:49 AM [facility] VITAMIN D (TOTAL) SERUM Specimen Type : SERUM No comment entered. Ordering Provider: ROSARIO ESCALERA Report Released Date/Time: Nov 20, 2023 01:30 PM Reporting Lab: [address] [address] Performing Lab: [address] [address] VITAMIN D (TOTAL) 9 ng/mL L 30-60 Jun 19, 2024 09:49 AM [facility] TSH PLASMA Specimen Type: PLASMA Comment: [...] Nov 20, 2023 01:30 PM Reporting Lab: [address] [address] Performing Lab: [address] [address] TSH 4.701 u[IU]/mL 0.350-4.940 Jun 19, 2024 09:49 AM [facility] [...] Nov 20, 2023 01:30 PM Reporting Lab: [address] [address] Performing Lab: [address] [address] ALBUMIN 4.8 g/dL 3.5-4.8 ALKALINE PHOSPHATASE 73 [...] 104.0 mL/min Jun 19, 2024 09:49 AM [facility] CBC BLOOD Specimen Type: BLOOD Comment: Manual Differential Performed. RBC and PLT morphology reviewed Slide reviewed for lymphocytosis Ordering Provider: ROSARIO ESCALERA Report Released Date/Time: Nov 20, 2023 01:30 PM Reporting Lab: [address] [address] Performing Lab: [address] [address] WBC COUNT 14.7 10*3/uL H 3.6-11.0 RBC [...] AM TOBACCO FORMER USER MORE [facility] Advance Directives: All historical and current [...] 2023 ADVANCE DIRECTIVE DISCUSSION SABINA NAIR [facility] Radiology Reports: +/- 30 days of [...] SPINE, 2 OR 3 VIEWS: MARION ZHENG [id number] -1995 M Exm Date: MAY 09, 2024@15:59 Req Phys: AVNI BARRON Pat Loc: [facility] MRI MOBILE 1 (Req'g Loc) Img Loc: [facility] Service: [place] [address] (Case [id number] COMPLETE)LUMBOSACRAL SPINE, 2 OR 3 VIEWS (RAD Detailed) CPT:95171 Reason for Study: pain Clinical History: [address], [place] [address] Report Status: Verified Date Reported: MAY 16, 2024 Date Verified: MAY 16, 2024 Flat Machine Cutter E-Sig:/ES/JEFF SADLER Report: Lumbar spine: AP, lateral [...] Code: Primary Interpreting Staff: JEFF SADLER, RADIOLOGIST (Flat Machine Cutter) /JEFF LEO CB May 09, 2024 03:59 PM CERVICAL SPINE WIT H FLEXION AND EXTENSION: MARION ZHENG [id number] -1995 M Exm Date: MAY 09, 2024@15:59 Req Phys: AVNI BARRON Loc: [facility] MRI MOBILE 1 (Req'g Loc) Img Loc: [facility] Service: [place] [address] (Case [id number] COMPLETE)CERVICAL SPINE WITH FLEXION AND E(RAD Detailed) CPT:01920 Reason for Study: pain Clinical History: [address], [place] [address] Report Status: Verified Date Reported: MAY 16, 2024 Date Verified: MAY 16, 2024 Flat Machine Cutter E-Sig:/DEANNA/JEFF SADLER Report: Cervical spine: AP, lateral, [...] Code: Primary Interpreting Staff: JEFF SADLER, RADIOLOGIST (Flat Machine Cutter) /JEFF LEO [facility] May 09, 2024 03:05 PM MRI LUMBAR SPINE W /O CONTRAST: MARION ZHENG [id number] -1995 M Exm Date: MAY 09, 2024@15:05 Req Phys: AVNI BARRON Loc: [facility] PAIN SPINE 6 (Req'g Loc Img Loc: [facility] CONTRACT READ Service: [place] [address] (Case [id number] COMPLETE)MRI LUMBAR SPINE W/O CONTRAST (MRI Detailed) CPT:60044 CPT Modifiers : TC TECHNICAL COMPONENT Reason for Study: pain Clinical History: History of Trauma: No SYMPTOMS AND SIGNS: Duration Of Symptoms:> 12 weeks pain Plain films obtained ([facility] or Outside Hospital): Yes No Impressions found Risks and benefits of the procedure were discussed with the patient. The patient did understand and agree with the treatment plan. Report Status: Verified Date Reported: MAY 12, 2024 Date Verified: MAY 12, 2024 Flat Machine Cutter E-Sig:/ES/BECCA MARIA Report: EXAMINATION: MRI LUMBAR SPINE [...] REQUIRED Primary Interpreting Staff: BECCA MARIA, RADIOLOGIST (Flat Machine Cutter) /BECCA STERLING CB May 09, 2024 03:05 PM MRI CERVICAL SPINE W/O CONTRAST: MARION ZHENG [id number] -1995 M Exm Date: MAY 09, 2024@15:05 Req Phys: AVNI BARRON Loc: HALIE PAIN SPINE MD 6 (Req'g Loc Img Loc: [facility] CONTRACT READ Service: [place] [address] (Case [id number] COMPLETE)MRI CERVICAL SPINE W/O CONTRAST (MRI Detailed) CPT:76737 CPT Modifiers : TC TECHNICAL COMPONENT Reason for Study: pain Clinical History: History of Trauma: No SYMPTOMS AND SIGNS: Duration Of Symptoms:> 12 weeks pain Plain films obtained ([facility] or Outside Hospital): Yes No Impressions found Risks and benefits of the procedure were discussed with the patient. The patient did understand and agree with the treatment plan. Report Status: Verified Date Reported: MAY 12, 2024 Date Verified: MAY 12, 2024 Flat Machine Cutter E-Sig:/ES/BECCA MARIA Report: EXAMINATION: MRI NECK SPINE [...] REQUIRED Primary Interpreting Staff: BECCA MARIA, RADIOLOGIST (Flat Machine Cutter) /BECCA TSERLING [facility] Encounter Notes: All associated encounter notes This section contains the clinical notes associated to the Encounter. Date/Time Encounter Note(s) Provider Source May 28, 2024 03:00 PM PASTORAL CARE NOTE : LOCAL TITLE: BARREL REAMER NOTE (T) STANDARD TITLE: PASTORAL CARE NOTE DATE OF NOTE: MAY 28, 2024@15:00 ENTRY DATE: MAY 28, 2024@16:06:51 AUTHOR: BLADIMIR VENCES COSIGNER: URGENCY: STATUS: COMPLETED [place] logged into [facility] for individual grief support appointment and was open/receptive. Néstor began by sharing Thanksgiving experience with household family and father + extended family. named the odd sense of people in the family knowing him the least and being least engaged. This connected néstor with what he is hoping for this [place] vs last Wanda. [place] shared vivid memories of the energy and excitement his spouse () gave to the month of May in making the inside & outside of home threaded with lina, in addition to the food and activities planned. [place] noted what he feels he cannot capture of this for his son (time taken for tears) but what he hopes to impart in some way/shape/form. 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 [place] noted spouse not present to celebrate, feeling great sadness. [place] did not invite friends/family to this event. [place] also expressed anger at teacher for passing him 2 levels; feeling convinced he did not earn or deserve this. 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 [place] noted his disbelief/refutation and will hold onto this challenge to revisit next appointment. Interventions: presence, active listening, reflective questions, grief processing, holiday challenges, personal development in martial arts, coping tools, encouragement, validation, support. Plan: [place] requested appointment by [facility] for 06/16/24 @ 3pm. [place] expressed gratitude. /deanna/ CHAPLAIN BLADIMIR CARLIN Signed: 05/28/2024 16:18 BLADIMIR VENCES [facility]
--- OUTSIDE RECORDS SUMMARY | 2024-05-28 11:30 | XMS_ITS | Encounter Summary ---
Author Name Department of [place] Organization [place] Address [address] [place] [address] Care Team Providers Care Elastic Yarn Twister Helper Name Role Phone ROSARIO ESCALERA Primary Care [...] Type Encounter Description Reason Pro vider Source May 28, 2024 03:30 PM Outpatient Encounter PHYSICAL THERAPY IHE Encounter Template Text not used by [place] Plan of Treatment: Future Appointments (+ 6 [...] data comes from all [place] treatment facilities. Appointment Date/Time Appointment Type Appointme nt Facility Name Jun 04, 2024 08:30 AM AMBULATORY - REHAB MEDICIN E [facility] Jun 06, 2024 11:30 AM AMBULATORY - PSYCHIATRY CL [facility] Jun 09, 2024 01:00 PM AMBULATORY - PSYCHIATRY CL [facility] Jun 19, 2024 09:45 AM AMBULATORY - NONE [facility] Jun 25, 2024 09:00 AM AMBULATORY - PSYCHIATRY CL [facility] Jun 25, 2024 09:30 AM AMBULATORY - NONE [facility] Jun 25, 2024 02:00 PM [facility] Jul 03, 2024 01:00 PM AMBULATORY - PSYCHIATRY [facility] Jul 11, 2024 09:00 AM AMBULATORY - SURGERY [facility] Jul 11, 2024 01:00 PM AMBULATORY - PSYCHIATRY [facility] Jul 15, 2024 03:00 PM AMBULATORY - SURGERY [facility] Jul 17, 2024 01:00 PM AMBULATORY - SURGERY [facility] Jul 18, 2024 01:00 PM AMBULATORY - PSYCHIATRY [facility] Jul 18, 2024 02:00 PM AMBULATORY - PSYCHIATRY [facility] Jul 21, 2024 09:30 AM AMBULATORY - SURGERY [facility] Jul 25, 2024 02:30 PM AMBULATORY - NONE [facility] Aug 07, 2024 02:00 PM AMBULATORY - PSYCHIATRY [facility] Aug 11, 2024 01:30 PM AMBULATORY - SURGERY [facility] Aug 13, 2024 03:30 PM AMBULATORY - PSYCHIATRY [facility] Aug 20, 2024 02:00 PM AMBULATORY - SURGERY [facility] Active, Pending, and Scheduled Orders This section includes a listing of several types of active, pending, and scheduled orders, including clinic medications orders, diagnostic test orders, procedure orders and consult orders; where the start date of the order is 45 days before the date of the Encounter or 45 days after the date of theEncounter. The data comes from all [place] treatment [facility]. Test Date/Time Test Type Test Details Facility Name May 21, 2024 12:00 AM Laboratory - Chemi mattyy Order URINALYSIS URINE SP [facility] Lab Results: +/- 30 days [...] Type Comment Jun 19, 2024 09:[address] [facility] LIPID PROFILE PLASMA Specimen Type: PLASMA [...] Nov 20, 2023 01:30 PM Reporting Lab: [address] [address] Performing Lab: [address] [address] CHOLESTEROL 243 mg/dL H <199 LDL CHOLESTEROL 172 mg/dL H 0-99 HDL CHOLESTEROL 33 mg/dL L >40 TRIGLYCERIDE 284 mg/dL H <149 Jun 19, 2024 09:[address] [facility] MAGNESIUM PLASMA Specimen Type: PLASMA Comment: [...] Nov 20, 2023 01:30 PM Reporting Lab: [address] [address] Performing Lab: [address] [address] MAGNESIUM 2.2 mg/dL 1.6-2.6 Jun 19, 2024 09:[address] [facility] VITAMIN D (TOTAL) SERUM Specimen Type : SERUM No comment entered. Ordering Provider: ROSARIO ESCALERA Report Released Date/Time: Nov 20, 2023 01:30 PM Reporting Lab: [address] [address] Performing Lab: [address] [address] VITAMIN D (TOTAL) 9 ng/mL L 30-60 Jun 19, 2024 09:[address] [facility] TSH PLASMA Specimen Type: PLASMA Comment: [...] Nov 20, 2023 01:30 PM Reporting Lab: [address] [address] Performing Lab: [address] [address] TSH 4.701 u[IU]/mL 0.350-4.940 Jun 19, 2024 09:[address] [facility] COMPREHENSIVE METABOLIC PANEL PLASMA S pecimen [...] Nov 20, 2023 01:30 PM Reporting Lab: [address] [address] Performing Lab: [address] [address] ALBUMIN 4.8 g/dL 3.5-4.8 ALKALINE PHOSPHATASE 73 [...] 104.0 mL/min Jun 19, 2024 09:[address] [facility] CBC BLOOD Specimen Type: BLOOD Comment: Manual Differential Performed. RBC and PLT morphology reviewed Slide reviewed for lymphocytosis Ordering Provider: ROSARIO ESCALERA Report Released Date/Time: Nov 20, 2023 01:30 PM Reporting Lab: [facility] [address] [facility] [address] Performing Lab: [address] [address] WBC COUNT 14.7 10*3/uL H 3.6-11.0 RBC [...] Lucinda andrade May 18, 2023 02:00 PM [place] 1 TO < 5 YRS [facility] Tobacco Use History This section includes a history of the smoking, or tobacco-related health factors, that were collected on or before the date of the Encounter. The data comes from the [place] facility where the Encounter took place. Date/Time Smoking Status/Tobacco Use Comment F acility May 18, 2023 02:00 PM [place]-TOBAC[place] QUIT 1 TO < 5 YRS [facility] Advance Directives: All historical and [...] 22, 2023 ADVANCE DIRECTIVE DISCUSSION SABINA NAIR [facility] Radiology Reports: +/- 30 days [...] SPINE, 2 OR 3 VIEWS: MARION ZHENG [id number] -1995 M Exm Date: MAY 09, 2024@15:59 Req Phys: AVNI BARRON Pat Loc: [facility] MRI MOBILE 1 (Req'g Loc) Img Loc: [facility] Service: [place] [address] (Case [id number] COMPLETE)LUMBOSACRAL SPINE, 2 OR 3 VIEWS (RAD Detailed) CPT:00545 Reason for Study: pain Clinical History: [address], [place] [address] Report Status: Verified Date Reported: MAY 16, 2024 Date Verified: MAY 16, 2024 Studio Technician Video Operator E-Sig:/ES/JEFF SADLER Report: Lumbar spine: AP, [...] Code: Primary Interpreting Staff: JEFF SADLER, RADIOLOGIST (Studio Technician Video Operator) /JEFF LEO CB May 09, 2024 03:59 PM CERVICAL SPINE WIT H FLEXION AND EXTENSION: MARION ZHENG [id number] -1995 M Exm Date: MAY 09, 2024@15:59 Req Phys: AVNI BARRON Loc: [facility] MRI MOBILE 1 (Req'g Loc) Img Loc: [facility] Service: [place] [address] (Case [id number] COMPLETE)CERVICAL SPINE WITH FLEXION AND E(RAD Detailed) CPT:91854 Reason for Study: pain Clinical History: [address], [place] [address] Report Status: Verified Date Reported: MAY 16, 2024 Date Verified: MAY 16, 2024 Studio Technician Video Operator E-Sig:/ES/JEFF SADLER Report: Cervical spine: AP, [...] Code: Primary Interpreting Staff: JEFF SADLER, RADIOLOGIST (Studio Technician Video Operator) /JEFF LEO [facility] May 09, 2024 03:05 PM MRI LUMBAR SPINE W /O CONTRAST: MARION ZHENG [id number] -1995 M Exm Date: MAY 09, 2024@15:05 Req Phys: AVNI BARRON Loc: HAL[facility] PAIN SPINE 6 (Req'g Loc Img Loc: [facility] CONTRACT READ [facility] [place] [address] (Case [id number] COMPLETE)MRI LUMBAR SPINE W/O CONTRAST (MRI Detailed) CPT:79387 CPT Modifiers : TC TECHNICAL COMPONENT Reason for Study: pain Clinical History: History of Trauma: No SYMPTOMS AND SIGNS: Duration Of Symptoms:> 12 weeks pain Plain films obtained ([facility] or Outside Hospital): Yes No Impressions found Risks and benefits of the procedure were discussed with the patient. The patient did understand and agree with the treatment plan. Report Status: Verified Date Reported: MAY 12, 2024 Date Verified: MAY 12, 2024 Studio Technician Video Operator E-Sig:/DEANNA/BECCA MARIA Report: EXAMINATION: MRI LUMBAR [...] 1000: NO ALERT REQUIRED Finalized by - Becac Maria Signed Date Time - 05/12/2024 15:01 Primary Diagnostic Code: NO ALERT REQUIRED Primary Interpreting Staff: BECCA MARIA, RADIOLOGIST (Studio Technician Video Operator) /BECCA STERLING CB May 09, 2024 03:05 PM MRI CERVICAL SPINE W/O CONTRAST: MARION ZHENG [id number] -1995 M Exm Date: MAY 09, 2024@15:05 Req Phys: AVNI BARRON Loc: HALIE PAIN SPINE MD 6 (Req'g Loc Img Loc: [facility] CONTRACT READ [facility] [place] [address] (Case [id number] COMPLETE)MRI CERVICAL SPINE W/O CONTRAST (MRI Detailed) CPT:04957 CPT Modifiers : TC TECHNICAL COMPONENT Reason for Study: pain Clinical History: History of Trauma: No SYMPTOMS AND SIGNS: Duration Of Symptoms:> 12 weeks pain Plain films obtained ([facility] or Outside Hospital): Yes No Impressions found Risks and benefits of the procedure were discussed with the patient. The patient did understand and agree with the treatment plan. Report Status: Verified Date Reported: MAY 12, 2024 Date Verified: MAY 12, 2024 Studio Technician Video Operator E-Sig:/ES/BECCA MARIA Report: EXAMINATION: MRI NECK [...] REQUIRED Primary Interpreting Staff: BECCA MARIA, RADIOLOGIST (Studio Technician Video Operator) /BECCA STERLING [facility] Encounter Notes: All associated encounter notes This section contains the clinical notes associated to the Encounter. Date/Time Encounter Note(s) Provider Source May 28, 2024 09:48 AM PHYSICAL MEDICINE REHAB NOTE: LOCAL TITLE: PM&RS BRIEF CLINICAL NOTE STANDARD TITLE: PHYSICAL MEDICINE REHAB NOTE DATE OF NOTE: MAY 28, 2024@09:48 ENTRY DATE: MAY 28, 2024@09:48:37 AUTHOR: KVNG HDZ EXP COSIGNER: URGENCY: STATUS: COMPLETED Client cancelled today's 3:30 pm f/u Outpatient PT visit. He did reschedule for 06/04/24. /deanna/ KVNG HDZ PHYSICAL THERAPIST Signed: 05/28/2024 09:[address] [facility]
--- OUTSIDE RECORDS SUMMARY | 2024-06-04 04:30 | XMS_ITS | Encounter Summary ---
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 Insurance Providers: All historical and current [...] Encounter Type Encounter Description Reason Provider Source Jun 04, 2024 08:30 AM THERAPEUTIC EXERCISES PHYSICAL THERAPY ICD-10-CM M54.50 Low back pain, unspecified [facility] Sonya Encounter Template Text not used by [place] Assessments - Encounter Diagnoses This section includes the primary and secondary diagnoses documented for the Encounter. Date/Time Primary/Secondary Diagnosis Diagnosis Name Provider Source Jun 04, 2024 08:52 AM PRIMARY Low back pain, unspecified KVNG HDZ [...] 20 appointments. The data comes from all [facility]. Appointment Date/Time Appointment Type Appointme nt Facility Name Jun 06, 2024 11:30 AM AMBULATORY - PSYCHIATRY [facility] Jun 09, 2024 01:00 PM AMBULATORY - PSYCHIATRY [facility] Jun 19, 2024 09:45 AM AMBULATORY - NONE [facility] Jun 25, 2024 09:00 AM AMBULATORY - PSYCHIATRY [facility] Jun 25, 2024 09:30 AM [facility]ORY - NONE [facility] Jun 25, 2024 02:00 PM [facility] Jul 03, 2024 01:00 PM AMBULATORY - PSYCHIATRY [facility] Jul 11, 2024 09:00 AM AMBULATORY - SURGERY [facility] Jul 11, 2024 01:00 PM AMBULATORY - PSYCHIATRY [facility] Jul 15, 2024 03:00 PM AMBULATORY - SURGERY [facility] Jul 17, 2024 01:00 PM AMBULATORY - SURGERY [facility] Jul 18, 2024 01:00 PM AMBULATORY - PSYCHIATRY [facility] Jul 18, 2024 02:00 PM AMBULATORY - PSYCHIATRY [facility] Jul 21, 2024 09:30 AM AMBULATORY - SURGERY [facility] Jul 25, 2024 02:30 PM AMBULATORY - NONE [facility] Aug 07, 2024 02:00 PM AMBULATORY - PSYCHIATRY [facility] Aug 11, 2024 01:30 PM AMBULATORY - SURGERY [facility] Aug 13, 2024 03:30 PM AMBULATORY - PSYCHIATRY [facility] Aug 20, 2024 02:00 PM AMBULATORY - SURGERY [facility] Aug 22, 2024 03:00 PM AMBULATORY - PSYCHIATRY [facility] Active, Pending, and Scheduled Orders This section includes a listing of several types of active, pending, and scheduled orders, including clinic medications orders, diagnostic test orders, procedure orders and consult orders; where the start date of the order is 45 days before the date of the Encounter or 45 days after the date of theEncounter. The data comes from all [facility]. Test Date/Time Test Type Test Details Facility Name May 21, 2024 12:00 AM Laboratory - Chemi stry Order URINALYSIS URINE SP [facility] Lab Results: +/- 30 days of the [...] Type Comment Jun 19, 2024 09:49 AM [facility] LIPID PROFILE PLASMA Specimen Type: PLASMA Comment: [...] Nov 20, 2023 01:30 PM Reporting Lab: [address] [address] Performing Lab: [address] [address] CHOLESTEROL 243 mg/dL H <199 LDL CHOLESTEROL 172 mg/dL H 0-99 HDL CHOLESTEROL 33 mg/dL L >40 TRIGLYCERIDE 284 mg/dL H <149 Jun 19, 2024 09:49 AM [facility] MAGNESIUM PLASMA Specimen Type: PLASMA Comment: DLDLREF [...] Nov 20, 2023 01:30 PM Reporting Lab: [address] [address] Performing Lab: [address] [address] MAGNESIUM 2.2 mg/dL 1.6-2.6 Jun 19, 2024 09:49 AM [facility] COMPREHENSIVE METABOLIC PANEL PLASMA S pecimen Type: [...] Nov 20, 2023 01:30 PM Reporting Lab: [address] [address] Performing Lab: [address] [address] ALBUMIN 4.8 g/dL 3.5-4.8 ALKALINE PHOSPHATASE 73 [...] 104.0 mL/min Jun 19, 2024 09:49 AM [facility] VITAMIN D (TOTAL) SERUM Specimen Type : SERUM No comment entered. Ordering Provider: ROSARIO ESCALERA Report Released Date/Time: Nov 20, 2023 01:30 PM Reporting Lab: [address] [address] Performing Lab: [address] [address] VITAMIN D (TOTAL) 9 ng/mL L 30-60 Jun 19, 2024 09:49 AM [facility] TSH PLASMA Specimen Type: PLASMA Comment: DLDLREF [...] Nov 20, 2023 01:30 PM Reporting Lab: [address] [address] Performing Lab: [address] [address] TSH 4.701 u[IU]/mL 0.350-4.940 Jun 19, 2024 09:49 AM [facility] CBC BLOOD Specimen Type: BLOOD Comment: Manual Differential Performed. RBC and PLT morphology reviewed Slide reviewed for lymphocytosis Ordering Provider: ROSARIO ESCALERA Report Released Date/Time: Nov 20, 2023 01:30 PM Reporting Lab: [address] [address] Performing Lab: [address] [address] WBC COUNT 14.7 10*3/uL H 3.6-11.0 RBC [...] 2023 02:00 PM VA-TOBACCO FORMER USER [facility] Tobacco Use History This section includes a history of the smoking, or tobacco-related health factors, that were collected on or before the date of the Encounter. The data comes from the [place] facility where the Encounter took place. Date/Time Smoking Status/Tobacco Use Comment F acility May 18, 2023 02:00 PM VA-TOBACCO QUIT 1 TO < 5 YRS [facility] Advance Directives: All historical and current [...] 22, 2023 ADVANCE DIRECTIVE DISCUSSION SABINA NAIR [facility] Radiology Reports: +/- 30 days [...] SPINE, 2 OR 3 VIEWS: MARION ZHENG [id number] -1995 M Exm Date: MAY 09, 2024@15:59 Req Phys: AVNI BARRON Loc: [facility] MRI MOBILE 1 (Req'g Loc) Img Loc: [facility] Service: [place] [address] (Case [id number] COMPLETE)LUMBOSACRAL SPINE, 2 OR 3 VIEWS (RAD Detailed) CPT:82195 Reason for Study: pain Clinical History: [address], [place] [address] Report Status: Verified Date Reported: MAY 16, 2024 Date Verified: MAY 16, 2024 [facility] E-Sig:/EDMUNDO/LAURI SADLER Report: Lumbar spine: AP, lateral and [...] vertebral body of indeterminate age. Finalized by Lauri Sadler MD On 05/16/2024 10:09 AM Primary Diagnostic Code: Primary Interpreting Staff: LAURI SADLER, RADIOLOGIST ([facility]) /[facility] May 09, 2024 03:59 PM CERVICAL SPINE WIT H FLEXION AND EXTENSION: MARION ZHENG [id number] -1995 M Exm Date: MAY 09, 2024@15:59 Req Phys: AVNI BARRON Loc: [facility] MRI MOBILE 1 (Req'g Loc) Img Loc: [facility] Service: [place] [address] (Case [id number] COMPLETE)CERVICAL SPINE WITH FLEXION AND E(RAD Detailed) CPT:48406 Reason for Study: pain Clinical History: [address], [place] [address] Report Status: Verified Date Reported: MAY 16, 2024 Date Verified: MAY 16, 2024 [facility] E-Sig:/EDMUNDO/LAURI SADLER Report: Cervical spine: AP, lateral, open [...] with clinical information is suggested. Finalized by Lauri Sadler MD On 05/16/2024 10:10 AM Primary Diagnostic Code: Primary Interpreting Staff: LAURI SADLER, RADIOLOGIST ([facility]) /LAURI LEO [facility] May 09, 2024 03:05 PM MRI CERVICAL SPINE W/O CONTRAST: MARION ZHENG [id number] -1995 M Exm Date: MAY 09, 2024@15:05 Req Phys: AVNI BARRON Loc: [facility] PAIN SPINE 6 (Req'g Loc Img Loc: [facility] MRI CONTRACT READ Service: [place] [address] (Case [id number] COMPLETE)MRI CERVICAL SPINE W/O CONTRAST (MRI Detailed) CPT:40456 CPT Modifiers : TC TECHNICAL COMPONENT Reason for Study: pain Clinical History: History of Trauma: No SYMPTOMS AND SIGNS: Duration Of Symptoms:> 12 weeks pain Plain films obtained ([facility] or Outside Hospital): Yes No Impressions found Risks and benefits of the procedure were discussed with the patient. The patient did understand and agree with the treatment plan. Report Status: Verified Date Reported: MAY 12, 2024 Date Verified: MAY 12, 2024 [facility] E-Sig:/ES/BECCA MARIA Report: EXAMINATION: MRI NECK SPINE [...] REQUIRED Primary Interpreting Staff: BECCA MARIA, RADIOLOGIST ([facility]) /[facility]CCA [facility] May 09, 2024 03:05 PM MRI LUMBAR SPINE W /O CONTRAST: MARION ZHENG [id number] -1995 Ex Date: MAY 09, 2024@15:05 Req Phys: AVNI BARRON Loc: [facility] PAIN SPINE 6 (Req'g Loc Img Loc: [facility] CONTRACT READ Service: [facility] [place] [address] (Case [id number] COMPLETE)MRI LUMBAR SPINE W/O CONTRAST (MRI Detailed) CPT:65455 CPT Modifiers : TC TECHNICAL COMPONENT Reason for Study: pain Clinical History: History of Trauma: No SYMPTOMS AND SIGNS: Duration Of Symptoms:> 12 weeks pain Plain films obtained ([facility] or Outside Hospital): Yes No Impressions found Risks and benefits of the procedure were discussed with the patient. The patient did understand and agree with the treatment plan. Report Status: Verified Date Reported: MAY 12, 2024 Date Verified: MAY 12, 2024 [facility] E-Sig:/EDMUNDO/BECCA MARIA Report: EXAMINATION: MRI LUMBAR SPINE W/O [...] REQUIRED Primary Interpreting Staff: BECCA MARIA, RADIOLOGIST ([facility] [facility]) /[facility] Encounter Notes: All associated encounter notes This section contains the clinical notes associated to the Encounter. Date/Time Encounter Note(s) Provider Source Jun 04, 2024 08:30 AM PHYSICAL THERAPY D ISCHARGE NOTE: LOCAL TITLE: PM&RS PT DISCHARGE NOTE STANDARD TITLE: PHYSICAL THERAPY DISCHARGE NOTE DATE OF NOTE: JUN 04, 2024@08:30 ENTRY DATE: JUN 04, 2024@08:30:14 AUTHOR: KVNG HDZ EXP COSIGNER: URGENCY: STATUS: COMPLETED Outpatient PT D/c Note; Dx Code; Chronic LBP PT dx; Chronic lumbar mobility/coordination impairments without radiculopathy Outpatient PT Tx #3 PT POC; 03/21/24->06/04/24 Cx by patient; 05/28/24 S: 28 yo who returns to Outpatient Physical Therapy for additional care. The low back has to be about 70% better since we started the stretches. The pain is much better and controlled. The stretches have helped with my flexibility and it not feeling so tight. Yes, I still do them daily. Agreeable to self- management from this point forward. Present/final Symptoms; 1/10 central lumbar Dull ache 0/10 L lateralization Sharp tightness 0/[address] O: Gait; Indep without AD. Lumbar MOVEMENT LOSS Gen Mod Min Nil Flexion: x Extension: x Outcome Measures; Modified Oswestry Low Back Pain Questionnaire; 06/04/24 Total; 6% Self Rep Disability 05/02/24 Total; 6% Self Rep Disability 03/21/24 Total; 36% Self Rep Disability Exercise Prescription; (Reviewed in clinic) 1. Prone/NIKO; 2. PPU; 3. STRICT posture corrections; Firm chairs, lumbar roll 4. PPU with pt generated OP; 15 reps, hold 5-10 seconds. 5. Seated Lower cervical retraction ROM; 10-15 reps, hold 5-10 seconds. 6. Seated thoracic extension ROM; 10-15 reps, hold 5-10 seconds Unable to combine #5/6 due to discomfort Added; 7. Reintroduction to L flexion; Standing; 2x10 reps (NO peripheralization) Mechanical ROM gains. 35 mins Ther ex x 2 A: Excellent progression with lumbar extension focused HEP efforts. Introduced lumbar flexion with repetitive gains in end range tolerance. Encouraged to ALWAYS follow flexion with extension movements and self-management of lumbar mobility with above PT recommendations. No additional Outpatient PT required but he is agreeable to contact us with any questions/concerns x 30 days. All questions addressed. Pt goal; I'd like a few exercises to help with this intense, constant low back pain (Lateralization's). GM Treatment Goals: 1. Reduction of Derangement GM 2. Maintenance of reduction GM 3. Recovery of Function GM 4. Prevention of recurrence GM (With compliance) 5. Client will report 5 point reduction in Oswestry Outcome score. GM Completed; 10/20 P: D/c Outpatient PT care to daily self-management. Available x 30 days for questions/concerns. Signing off care, appreciate this consult. /edmundo/ KVNG HDZ PHYSICAL THERAPIST Signed: 06/04/2024 08:52 [facility]Z [facility]
--- OUTSIDE RECORDS SUMMARY | 2024-06-06 07:30 | XMS_ITS | Encounter Summary ---
Author Name [facility] [place] [facility] Address [address] [place] [address] Care Team Providers Care Veterinary Laboratory Diagnostician Name Role Phone ROSARIO ESCALERA Primary Care Provider [facility] xuan Insurance Providers: All historical and current Section [...] Type Encounter Description Reason Provider Source Jun 06, 2024 11:30 AM PSYCH DIAGNOSTIC EVALUATION INTERVNTION [facility] CARE IND ICD-10-CM F51.01 Primary insomnia NAA LOPEZ Encounter Template Text not used by [place] Assessments - Encounter Diagnoses This section includes the primary and secondary diagnoses documented for the Encounter. Date/Time Primary/Secondary Diagnosis Diagnosis Name Provider Source Jun 06, 2024 02:48 PM PRIMARY Primary insomnia NAA LOPEZ [facility] Jun 06, 2024 02:48 PM SECONDARY Major depressive disorder, single episode, unspecified NAA LOPEZ [facility] Jun 06, 2024 02:48 PM SECONDARY Personality disorder, unspecified NAA LOPEZ [facility] Jun 06, 2024 02:48 PM SECONDARY Post-traumatic stress disorder, chronic NAA LOPEZ [facility] Plan of Treatment: Future Appointments (+ 6 months) and Future Tests (+/- 45 days) The Plan of Treatment section includes future care activities for the [facility] [place] [facility] This section includes future appointments and future orders which are active, pending or scheduled. Future Appointments This section includes appointments that were scheduled to occur 6 months from the date of the Encounter, up to a maximum of 20 appointments. The data comes from all [place] treatment facilities. Appointment Date/Time Appointment Type Appointme nt Facility Name Jun 09, 2024 01:00 PM AMBULATORY - PSYCHIATRY [facility] Jun 19, 2024 09:45 AM AMBULATORY - NONE [facility] Jun 25, 2024 09:00 AM AMBULATORY - PSYCHIATRY [facility] Jun 25, 2024 09:30 AM AMBULATORY - NONE [facility] Jun 25, 2024 02:00 PM AMBULATORY - NONE [facility] Jul 03, 2024 01:00 PM AMBULATORY - PSYCHIATRY [facility] Jul 11, 2024 09:00 AM AMBULATORY - SURGERY [facility] Jul 11, 2024 01:00 PM AMBULATORY - PSYCHIATRY [facility] Jul 15, 2024 03:00 PM AMBULATORY - SURGERY [facility] Jul 17, 2024 01:00 PM AMBULATORY - SURGERY [facility] Jul 18, 2024 01:00 PM AMBULATORY - PSYCHIATRY [facility] Jul 18, 2024 02:00 PM AMBULATORY - PSYCHIATRY [facility] Jul 21, 2024 09:30 AM AMBULATORY - SURGERY [facility] Jul 25, 2024 02:30 PM AMBULATORY - NONE [facility] Aug 07, 2024 02:00 PM AMBULATORY - PSYCHIATRY [facility] Aug 11, 2024 01:30 PM AMBULATORY - SURGERY [facility] Aug 13, 2024 03:30 PM AMBULATORY - PSYCHIATRY [facility] Aug 20, 2024 02:00 PM AMBULATORY - SURGERY [facility] Aug 22, 2024 03:00 PM AMBULATORY - PSYCHIATRY [facility] Aug 26, 2024 02:30 PM AMBULATORY - NONE [facility] Active, Pending, and Scheduled Orders This section includes a listing of several types of active, pending, and scheduled orders, including clinic medications orders, diagnostic test orders, procedure orders and consult orders; where the start date of the order is 45 days before the date of the Encounter or 45 days after the date of theEncounter. The data comes from all [place] treatment facilities. Test Date/Time Test Type Test Details Facility Name May 21, 2024 12:00 AM Laboratory - Chemi stry Order URINALYSIS URINE SP ONCE [facility] Lab Results: +/- 30 days of [...] Type Comment Jun 19, 2024 09:49 AM [facility] MAGNESIUM PLASMA Specimen Type: PLASMA Comment: [...] Nov 20, 2023 01:30 PM Reporting Lab: [facility] [id number] [place] [phone] Performing Lab: [address] [address] MAGNESIUM 2.2 mg/dL 1.6-2.6 Jun 19, 2024 09:49 AM [facility] LIPID PROFILE PLASMA Specimen Type: PLASMA [...] Nov 20, 2023 01:30 PM Reporting Lab: [address] [address] Performing Lab: [address] [address] CHOLESTEROL 243 mg/dL H <199 LDL CHOLESTEROL 172 mg/dL H 0-99 HDL CHOLESTEROL 33 mg/dL L >40 TRIGLYCERIDE 284 mg/dL H <149 Jun 19, 2024 09:49 AM [facility] VITAMIN D (TOTAL) SERUM Specimen Type : SERUM No comment entered. Ordering Provider: ROSARIO ESCALERA Report Released Date/Time: Nov 20, 2023 01:30 PM Reporting Lab: [address] [address] Performing Lab: [address] [address] VITAMIN D (TOTAL) 9 ng/mL L 30-60 Jun 19, 2024 09:49 AM [facility] TSH PLASMA Specimen Type: PLASMA Comment: [...] Nov 20, 2023 01:30 PM Reporting Lab: [address] [address] Performing Lab: [address] [address] TSH 4.701 u[IU]/mL 0.350-4.940 Jun 19, 2024 09:49 AM [facility] COMPREHENSIVE METABOLIC PANEL PLASMA S pecimen [...] Nov 20, 2023 01:30 PM Reporting Lab: [address] [address] Performing Lab: [address] [address] ALBUMIN 4.8 g/dL 3.5-4.8 ALKALINE PHOSPHATASE 73 [...] 104.0 mL/min Jun 19, 2024 09:49 AM [facility] CBC BLOOD Specimen Type: BLOOD Comment: Manual Differential Performed. RBC and PLT morphology reviewed Slide reviewed for lymphocytosis Ordering Provider: ROSARIO ESCALERA Report Released Date/Time: Nov 20, 2023 01:30 PM Reporting Lab: [address] [address] Performing Lab: [address] [address] WBC COUNT 14.7 10*3/uL H 3.6-11.0 RBC [...] Current Smoking Status Comment Facil ity Jun 06, 2024 11:30 AM VA-TOBACCO USE EVERY DAY [facility] Tobacco Use History This section includes a history of the smoking, or tobacco-related health factors, that were collected on or before the date of the Encounter. The data comes from the [place] facility where the Encounter took place. 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 This section includes ALL of a patient's completed or amended [place] Advance and Rescinded Directives. The entries below indicate that a directive exists for the patient, but an actual copy is not included with this document. The data comes from all [facility]. Date Advance Directives Provider Source October 22, 2023 ADVANCE DIRECTIVE DISCUSSION SABINA NAIR [facility] Radiology Reports: +/- 30 days [...] SPINE, 2 OR 3 VIEWS: MARION ZHENG [id number] -1995 M Exm Date: MAY 09, 2024@15:59 Req Phys: AVNI BARRON Loc: PRM MRI MOBILE 1 (Req'g Loc) Img Loc: [facility] Service: [place] [address] (Case [id number] COMPLETE)LUMBOSACRAL SPINE, 2 OR 3 VIEWS (RAD Detailed) CPT:98450 Reason for Study: pain Clinical History: [address] [address] Report Status: Verified Date Reported: MAY 16, 2024 Date Verified: MAY 16, 2024 Buffing Wheel Former Automatic E-Sig:/ES/JEFF HENLEY Report: Lumbar spine: AP, lateral [...] Code: Primary Interpreting Staff: JEFF HENLEY, RADIOLOGIST (Buffing Wheel Former Automatic) /JEFF LEO CB May 09, 2024 03:59 PM CERVICAL SPINE WIT H FLEXION AND EXTENSION: MARION ZHENG [id number] -1995 M Exm Date: MAY 09, 2024@15:59 Req Phys: AVNI BARRON Loc: PRM MRI MOBILE 1 (Req'g Loc) Img Loc: [facility] DIAG Service: Unknown [facility] [place] [address] (Case [id number] COMPLETE)CERVICAL SPINE WITH FLEXION AND E(RAD Detailed) CPT:37710 Reason for Study: pain Clinical History: [address], [place] [address] Report Status: Verified Date Reported: MAY 16, 2024 Date Verified: MAY 16, 2024 Buffing Wheel Former Automatic E-Sig:/ES/JEFF HENLEY Report: Cervical spine: AP, lateral, [...] Code: Primary Interpreting Staff: JEFF HENLEY, RADIOLOGIST (Buffing Wheel Former Automatic) /JEFF LEO [facility] May 09, 2024 03:05 PM MRI LUMBAR SPINE W /O CONTRAST: BRITTNEYMARION Haji ISAI [id number] -1995 M Exm Date: MAY 09, 2024@15:05 Req Phys: ANDERSONAVNIFELICITY Zaragoza Loc: [facility] PAIN SPINE 6 (Req'g Loc Img Loc: [facility] MRI CONTRACT READ Service: Unknown [facility] [place] [address] (Case [id number] COMPLETE)MRI LUMBAR SPINE W/O CONTRAST (MRI Detailed) CPT:57055 CPT Modifiers : TC TECHNICAL COMPONENT Reason for Study: pain Clinical History: History of Trauma: No SYMPTOMS AND SIGNS: Duration Of Symptoms:> 12 weeks pain Plain films obtained ([facility] or Outside Hospital): Yes No Impressions found Risks and benefits of the procedure were discussed with the patient. The patient did understand and agree with the treatment plan. Report Status: Verified Date Reported: MAY 12, 2024 Date Verified: MAY 12, 2024 Buffing Wheel Former Automatic E-Sig:/ES/BECCA CHING Report: EXAMINATION: MRI LUMBAR SPINE [...] REQUIRED Primary Interpreting Staff: BECCA CHING, RADIOLOGIST (Buffing Wheel Former Automatic) /BECCA STERLING CB May 09, 2024 03:05 PM MRI CERVICAL SPINE W/O CONTRAST: MARION ZHENG [id number] -1995 M Exm Date: MAY 09, 2024@15:05 Req Phys: AVNI BARRON Loc: HALIE PAIN SPINE 6 (Req'g Loc Img Loc: [facility] MRI CONTRACT READ Service: [place] [address] (Case [id number] COMPLETE)MRI CERVICAL SPINE W/O CONTRAST (MRI Detailed) CPT:43193 CPT Modifiers : TC TECHNICAL COMPONENT Reason for Study: pain Clinical History: History of Trauma: No SYMPTOMS AND SIGNS: Duration Of Symptoms:> 12 weeks pain Plain films obtained ([facility] or Outside Hospital): Yes No Impressions found Risks and benefits of the procedure were discussed with the patient. The patient did understand and agree with the treatment plan. Report Status: Verified Date Reported: MAY 12, 2024 Date Verified: MAY 12, 2024 Buffing Wheel Former Automatic E-Sig:/DEANNA/BECCA CHING Report: EXAMINATION: MRI NECK SPINE [...] REQUIRED Primary Interpreting Staff: BECCA CHING, RADIOLOGIST (Buffing Wheel Former Automatic) /BECCA STER[facility]ING [facility] Encounter Notes: All associated encounter notes This section contains the clinical notes associated to the Encounter. Date/Time Encounter Note(s) Provider Source Jun 09, 2024 12:12 PM MENTAL HEALTH CONS ULT: LOCAL TITLE: BEHAVIORAL MEDICINE CONSULTATION (C) STANDARD TITLE: MENTAL HEALTH CONSULT DATE OF NOTE: JUN 09, 2024@12:12:24 ENTRY DATE: JUN 09, 2024@12:12:24 AUTHOR: NAA LOPEZ EXP COSIGNER: URGENCY: STATUS: COMPLETED Assessments were sent to the via text/email. These assessments were completed by MARION ZHENG on their own device on 06/09/2024 9:41:32 AM. INSOMNIA SEVERITY INDEX (PAMELLA) Patient reported the severity of insomnia problems in the last two weeks as follows: 1. Difficulty falling asleep: Severe 2. Difficulty staying asleep: Moderate 3. Problems waking up too early: Moderate 4. Satisfaction with sleep: Very Dissatisfied 5. Impaired quality of life noticeable to others: Much 6. Distressed by sleep problems: Much 7. Interference with daily functioning: Very Much Interfering PAMELLA total score = 21 0-7 = No clinically significant insomnia 8-14 = Subthreshold insomnia 15-21 = Clinical insomnia (moderate severity) 22-28 = Clinical insomnia (severe) /deanna/ NAA LOPEZ CLINICAL PSYCHOLOGIST Signed: 06/09/2024 16:16 NAA LOPEZ [facility] Jun 06, 2024 11:54 AM MENTAL HEALTH CONS ULT: LOCAL TITLE: BEHAVIORAL MEDICINE CONSULTATION (C) STANDARD TITLE: MENTAL HEALTH CONSULT DATE OF NOTE: JUN 06, 2024@11:54 ENTRY DATE: JUN 06, 2024@11:54:36 AUTHOR: NAA LOPEZ EXP COSIGNER: URGENCY: STATUS: COMPLETED Video to [...] emergencies, provider may initiate the call to administrative underwriter by calling [facility] [phone] [address] [facility]/ Crisis Line - Dial 988, press #1 [facility] ([facility]): [phone] or [phone] I am the Staff Provider. BEHAVIORAL SLEEP MEDICINE INTAKE DATE OF APPOINTMENT: June 06, 2024 LENGTH OF APPOINTMENT: 55 minutes MODALITY: Telemental Health PROVIDER: Dr. Naa Lopez (Clinical Health Psychologist) DIAGNOSES, per chart: Insomnia (SCT [id number]) - Primary insomnia (ICD-10-CM F51.01) (Primary) Chronic post-traumatic stress disorder (SCT [id number]) - Post-traumatic stress disorder, chronic (ICD-10-CM F43.12) Depression (SCT 14759237) - Major depressive disorder, single episode, unspecified (ICD-10-CM F32.9) Personality disorder (SCT [id number]) - Personality disorder, unspecified (ICD-10- CM F60.9) TYPE OF CARE PROVIDED: Behavioral Sleep Medicine [facility] appointment. SESSION FORMAT Video Telehealth Session SESSION LOCATION Other location-Sleep clinic was informed that provider was teleworking from home and consented to appointment. [place] confirmed he/she was in a safe and private location, at home, not driving. Provider discussed issues of confidentiality, privacy, and limits therein, as well as the shared medical record and emergency procedures. was requested to abstain from alcohol and drug use during appt. [place] verbalized understanding and gave his/her verbal informed consent to be seen by this provider virtually under these conditions. [place] was given this provider's contact information and understands that he/she may contact this provider with questions or concerns. This session was conducted through telehealth. The consented to an individual appt via telehealth video conferencing modality. Patient educated as to likely difference between telehealth care and face to face care. Patient informed of the risks and benefits of using telehealth services and procedures and likely risks and benefits of using alternatives to Telehealth services. Patient informed of the right to refuse telehealth services at any time without jeopardizing their right to future care, services, or benefits. The [place] was present at home for this session, and their address and phone number were reviewed during this session and confirmed as accurate. Telehealth deemed to be a safe and appropriate clinical option for this patient. REFERRAL/BACKGROUND INFORMATION: is a 28-year-old male with PTSD, depressive DO unspecified, personality DO unspecified, and insomnia d/o. Currently connected with mental health care including dialectical behavior therapy. Per consult: Requesting Provider: ERNA EDWARDS Provisional Diagnosis: insomnia Reason for referral: sleep onset insomnia Is there concern for substance misuse (ex. Prescribed sleep or other medications, illicit substances, etoh)? No SLEEP STUDY DATA [place] previously underwent sleep testing; please see details below: [facility] HOME SLEEP APNEA TEST- WatchPAT Study date: 11/12/2023 IMPRESSION: - There is no evidence of sleep disordered breathing on this home sleep apnea test (HSAT). - Oxygen desaturation was less than or equal to 88% for 0 minutes. - Snoring observed 0.4% of the study. PLAN: - The study did not show evidence of sleep disordered breathing. Due to limitations with home sleep apnea testing (HSAT), it may underestimate the PAT Apnea-Hypopnea Index (pAHI). If Obstructive sleep apnea (TIN) is clinically suspected, recommend specialty consultation or repeat sleep testing. - The will be notified about the above study results and next steps for follow up. - Consider in lab PSG if suspicion for TIN is still high. PATIENT HISTORY: Indication for study: Sleep apnea, unspecified Condition of study: baseline 28 year old Male with BMI of 26 (weight 180 lbs, height 70 inches) ESS: 03/11 PAMELLA: STUDY DETAILS: Technically Valid Sleep Time: 3 hrs. 42 min. Total Recording Time was 4 hrs. 54 min. Study start time was 02:01:22 AM Study stop time was 06:55:37 AM Estimated total sleep time (TST) 3 hrs. 50 min. Estimated REM was 20% of TST BODY POSITION Supine sleep was 1 hr. 10 min. (30.5% of TST) Non-Supine sleep was 1 hr. 27 min. (37.9% of TST) RESPIRATORY PARAMETERS: pAHI-3% was 2.4 /hr pAHI-4% was 0.8 /hr pRDI was 4.6 /hr /es/ ERNA EDWARDS SLEEP MEDICINE PHYSICIAN Signed: 12/04/2023 SESSION CONTENT: The completed the initial session of Cognitive Behavioral Therapy for Insomnia (CBT-I), which focuses on the evaluation of sleep disturbance. PRESENTING CONCERN: Preferred title/name: Marion At today's appt, the reports a severe 'lack of sleep' and being bothered by 'lack of effectiveness of sleep' which he defined as 'my sleep is different every night, no consistency.' Reports some nights gets 2-4 hrs, other nights 7-9 hrs. He always wakes up 'exhausted' and 'feels exhausted the entire day' Wakes up randomly and often- not sure why Doesn't dream that he can recall, rarely has nightmares Before he got MH tx thinks he only got 2-3 hrs of sleep at night on a regular basis, no behavioral changes made any difference, only medications helped him Precipitating Factors: since he left the service 6 years ago- he could function on little sleep before but cant anymore CURRENT SLEEP PATTERN: Environmental Sleep Disruptions: n/a Chronic pain: n/a Napping: tries not to but he does 'pass out'-naps 3-4 days per week, could be a few minutes up to a few hours Differences between weekdays and weekend: no, schedule changes every day depending on how he sleeps the night before Social sleeping situation: lives w/ friends who also have a young son Bed partner: no Anyone else in the bed (children or pets): no Daytime activities (paid work, caregiving etc): takes care of son [place], 100% disabled, does not work outside the home, takes martial arts, busy w/ medical appts Unhealthy sleep practices: Prebedtime activity = 'doom scrolling' on smartphone- aware this is an unhelpful habit, not willing to change it as he says he did this before and it did not make a difference for him Watch tv in place you sleep: yes Pre-sleep arousal (ruminate, worry, physical tension, fears): racing thoughts, ruminates on painful things in his life, uses phone to distract/numb himself Unhelpful thoughts/behaviors when cannot get to sleep or awake in middle of night: Lying awake in bed and using technology, ruminating Nocturnal eating: snacks during the night Timing of exercise: denied Unhelpful sleep environment (bed partner, childcare, pets, comfort, sound, lights, safety, temperature): could not identify Use of phone/technology in bed: yes, excessive-uses smartphone, tv, and plays videogames Adverse Daytime Consequences of Sleep Concern: exhaustion, little energy to do the things he wants to do during the day, needs to sleep during the day even though he doesnt want to INSOMNIA SYMPTOMS: Subjective Report: Difficulty initiating sleep -yes difficulty maintaining sleep-yes Insomnia severity index screener sent via [employer] touch; had not completed assessment at the time of this report writing though he did consent to do so at this appointment SLEEP APNEA: Current Diagnosis of Sleep Apnea: No - has had a negative sleep study recently PARASOMNIAS: Nightmare Symptoms: Denies currently having nightmares that affect him though has had nightmares in the past that he attributes to medications MEDICAL and MENTAL HEALTH CONDITIONS Sleep-Relevant Medical Conditions: yes, with multiple conditions likely affecting his sleep; these include chronic pain, PTSD; Depression; Personality D/O, Cluster B traits, and migraines Substance Use: Alcohol: rarely, social use only Caffeine: Drinks pop t/o the day and night, not interested in reducing his use, doesn't think it makes a difference with his sleep Tobacco: vaping daily, not interested in quitting, does not believe that his nicotine use affects his sleep/energy Non-Prescription/Recreational Drugs: Denied Sleep Medication Use: Yes; see medication list AMITRIPTYLINE TAB 10MG TAKE 1 TO 2 TABLETS BY MOUTH AT BEDTIME NEEDED FOR SLEEP Quantity: 60 Refills: 3 SERTRALINE TAB 50MG TAKE ONE TABLET BY MOUTH EVERY DAY Quantity: 90 Refills: 3 Indication: PTSD DIVALPROEX (EXTENDED RELEASE) TAB,SA,24HR (EXTENDED RELEASE) 500MG TAKE ONE TABLET BY MOUTH AT BEDTIME Quantity: 90 Refills: 2 Indication: FOR MIGRAINE PREVENTION /CULTURAL BACKGROUND/IDENTITY FACTORS: The patient's individual factors and cultural background were considered during this appointment. RISK ASSESSMENT: No suicidal or homicidal ideation intent or plan endorsed or evidenced throughout the visit. was not judged to be in need of acute psychological care; low risk. aware of VCL and emergency resources. [place] is actively connected with mental health treatment and has multiple protective factors including being a caregiver for his son with whom he lives and living with friends with whom he shares childrearing duties. MENTAL STATUS/BEHAVIORAL OBSERVATIONS: Arrival: on time, visible at home Appearance/Attitude: Casual dress, alert, and engaged Motor behavior: WNL Speech: WNL generally, sometimes paused for long periods before answering questions Mood/Affect: Mood calm though at times presented as irritable with congruent affect Thought content: Normal (Logical) Insight/Judgment: fair Impulse control (current): Intact Orientation: Oriented to person, place, and time Auditory/Visual Hallucinations: Not evident MH CLINICAL REMINDERS: Completed. Clinical Reminders Activity Tobacco Use Screening: The patient smokes cigarettes every day. The patient uses other type(s) of tobacco every day. Other Tobacco Type(s) used: Electronic Nicotine Delivery System (ENDS) (e.g., e-cigarettes/vape pens) Patient was advised to stop smoking and/or using other tobacco products. Advised patient that a combination of behavioral counseling and FDA-approved cessation medications is the most effective way to ensure their success in stopping to smoke and/or using other tobacco products. The patient was not interested in additional information about behavioral counseling and other support strategies discussed. Informed patient that medications can help with cravings and withdrawal symptoms, and they greatly increase the chances of successfully stopping your tobacco use. The patient was not interested in a prescription for tobacco cessation medications. The patient declined further support for changing his smoking habits and discussed how he does not think it is relevant to his sleep problems SUMMARY: Patient seen for initial Behavioral Sleep medicine evaluation. Based on the 's presentation and psychodiagnostic assessment, the stated sleep problem is most consistent with the following diagnoses: Insomnia Disorder; irregular schedule and poor stimulus control Regarding the insomnia disorder the endorsed problems with sleep onset and sleep maintenance that are adversely affecting his functioning and have lasted for more than 3 months. Ongoing assessment is recommended to clarify this diagnosis and will be conducted at the next appointment. He also has a complex mental health history that is likely impacting his sleep quality. Other factors likely affecting his presentation and symptoms include pain (LBP noted in chart), daytime napping, medications, excessive use of caffeine and nicotine, and overall poor sleep hygiene. Treatment planning discussion: The was advised of various behavioral sleep medicine treatment options that might help with his sleep concerns including cognitive behavioral therapy for insomnia disorder. He was given education on what this treatment entails including requirement to track his sleep with sleep logs. He expressed disappointment for this appointment and expressed that the interventions mentioned today are things that he has already tried and do not work. Per 's report he has already tried multiple behavioral and lifestyle changes to improve his sleep without benefit. He believes sleep medications are the only things that help. He was advised on the complex and multifactorial nature of his sleep concerns and how various factors are likely impacting his sleep to include his health comorbidities, trauma hx, expectations, his understanding of the links between his health behaviors and their effects on his health, and his environment to include elements such as light exposure and technology use. Also discussed the possibility of paradoxical insomnia which could be at play. Offered to send treatment materials for to review and also reviewed other options to include healthy sleep group and self-management of symptoms with resources developed by the [facility]. [place] expressed ambivalence in proceeding with CBT-I but still opted to schedule an appointment in June. He is in agreement to track his sleep for 2 weeks before this appointment and was educated on the importance of sleep logs and how to track his sleep. Treatment materials were also sent to him via [employer]. He was encouraged to cancel his appointment with notice if he changes his mind. He agreed to do so. SOCIALIZATION TO CBT-I: -Provided a brief description of CBT-I. -Provided information about the efficacy of CBT-I. -Reviewed the length (about 6-8 sessions) and frequency (weekly or biweekly) of treatment. -Explained that homework will be assigned and discussed at each session. -Provided the [place] with a blank sleep diary and written instructions for completing it. INTERVENTIONS: -Provider listened supportively, validated 's concerns, and gave psychoeducation throughout the session. -Also gave psychoeducation on the relationships between sleep, lifestyle habits, trauma, and mood. -Advised to avoid alcohol, reduce caffeine, and use of vaping/nicotine products. Brief psychoeducation on the adverse effects of these substances. [place] not interested in quitting vaping at this time or reducing caffeine use -Socialization/orientation to treatments in [facility] -Advised on stimulus control strategies and basic sleep hygiene practices TREATMENT PLAN: The patient decided to initiate treatment in Behavioral Sleep Medicine. He will meet again with this specialist in June after tracking his sleep for approximately 2 weeks. At that time we will engage in further assessment including review of sleep logs, administration of [place] sleepiness scale and PAMELLA if not already completed, clarification of treatment goals, with the hope to begin cognitive behavioral treatment for insomnia disorder if is an appropriate candidate and amenable. [place] was provided with a blank sleep logs via [employer] and informed of the CBTI/Insomnia Motor Power Connector juan josé / training website prefers afternoon appointments RTC: 60 min [facility] appt for July 11Sunday at 1 PM per preference. Alerting referring providers and veterans healthcare team for coordination of care purposes Recommendations and plan outlined above were created in collaboration with the in a shared decision-making process considering the 's cultural background, values, goals, and treatment preferences. This note was dictated using M[employer]rise speech to text software. Despite proofreading, single end sewer errors may be present. /es/ NAA LOPEZ CLINICAL PSYCHOLOGIST Signed: 06/06/2024 16:13 Receipt Acknowledged By: 06/06/2024 16:22 /es/ ADDIS HARDY CLINICIAL HEALTH COMMISSIONER * AWAITING SIGNATURE * ERNA EDWARDS 06/06/2024 16:22 /es/ ABAD TENORIO CLINICAL ANATOMIC PATHOLOGY MANAGER 06/06/2024 16:36 /es/ ROSARIO BARBER CLINICAL PSYCHOLOGIST NAA LOPEZ [facility]
--- OUTSIDE RECORDS SUMMARY | 2024-06-09 09:00 | XMS_ITS | Encounter Summary ---
Author Name [facility] Address [address] [place] [address] Care Team Providers Care Gambling Dealer Name Role Phone ROSARIO ESCALERA Primary Care [...] section includes the information on record at [place] for the Encounter. Date/Time Encounter Type Encounter Description Reason Provider Source Jun 09, 2024 01:00 PM STRESS MGMT CLASS [facility] - IND ICD-10-CM F60.9 Personality disorder, unspecified ADDIS CLOUD Sonya Encounter Template Text not used by [place] Assessments - Encounter Diagnoses This section includes the primary and secondary diagnoses documented for the Encounter. Date/Time Primary/Secondary Diagnosis Diagnosis Name Provider Source Jun 09, 2024 02:35 PM PRIMARY Personality disorder, unspecified ADDIS CLOUD [facility] Jun 09, 2024 02:35 PM SECONDARY Major depressive disorder, single episode, unspecified ADDIS CLOUD [facility] Jun 09, 2024 02:35 PM SECONDARY Post-traumatic stress disorder, chronic ADDIS CLOUD [facility] Jun 09, 2024 02:35 PM SECONDARY Primary insomnia ADDIS CLOUD [facility] Plan of Treatment: Future Appointments (+ 6 months) and Future Tests (+/- 45 days) The Plan of Treatment section includes future care activities for the patient from [facility] This section includes future appointments and future orders which are active, pending or scheduled. Future Appointments This section includes appointments that were scheduled to occur 6 months from the date of the Encounter, up to a maximum of 20 appointments. The data comes from all [facility] treatment [facility]. Appointment Date/Time Appointment Type Appointme nt Facility Name Jun 19, 2024 09:45 AM AMBULATORY - NONE [facility] Jun 25, 2024 09:00 AM AMBULATORY - [facility]RY [facility] [place] Jun 25, 2024 09:30 AM [facility] - NONE [facility] Jun 25, 2024 02:00 PM [facility] - NONE [facility] Jul 03, 2024 01:00 PM AMBULATORY - [facility]IATRY [facility] [place] Jul 11, 2024 09:00 AM AMBULATORY - SURGERY [facility] Jul 11, 2024 01:00 PM AMBULATORY - [facility]IATRY [facility] [place] Jul 15, 2024 03:00 PM [facility] Jul 17, 2024 01:00 PM AMBULATORY - SURGERY [facility] Jul 18, 2024 01:00 PM AMBULATORY - [facility]IATRY [facility] [place] Jul 18, 2024 02:00 PM AMBULATORY - [facility]IATRY [facility] [place] Jul 21, 2024 09:30 AM [facility] Jul 25, 2024 02:30 PM AMBULATORY - NONE [facility] Aug 07, 2024 02:00 PM AMBULATORY - PS[facility]CHIATRY [facility] [place] Aug 11, 2024 01:30 PM AMBULATORY - SURGERY [facility] Aug 13, 2024 03:30 PM AMBULATORY - PS[facility]IATRY [facility] [place] Aug 20, 2024 02:00 PM AMBULATORY - SURGERY [facility] Aug 22, 2024 03:00 PM AMBULATORY - PS[facility]CHIATRY [facility] [place] Aug 26, 2024 02:30 PM AMBULATORY - NONE [facility] Aug 26, 2024 03:00 PM [facility]ORY [facility] NONE [facility] Active, Pending, and Scheduled Orders This section includes a listing of several types of active, pending, and scheduled orders, including clinic medications orders, diagnostic test orders, procedure orders and consult orders; where the start date of the order is 45 days before the date of the Encounter or 45 days after the date of theEncounter. The data comes from all [place] treatment facilities. Test Date/Time Test Type Test Details Facility Name May 21, 2024 12:00 AM Laboratory - Chemi stry Order URINALYSIS URINE SP ONCE [facility] Lab Results: +/- 30 days of the encounter This section includes the Chemistry and Hematology Lab Results on record with [place] for the patient. Radiology Reports and Pathology Reports are provided separately, in subsequent sections. Lab Results This section contains the Chemistry/Hematology Results that were resulted 30 days before or 30 daysafter the date of the Encounter. Date/Time Source Result Type Result - Unit Interpretation Reference Range Specimen Type Comment Jun 19, 2024 09:49 AM [facility] LIPID PROFILE PLASMA Specimen Type: PLASMA [...] PM Reporting Lab: [facility] [id number] [facility] [phone] Performing Lab: [facility] [id number] [id number] CHOLESTEROL 243 mg/dL H <199 LDL CHOLESTEROL 172 mg/dL H 0-99 HDL CHOLESTEROL 33 mg/dL L >40 TRIGLYCERIDE 284 mg/dL H <149 Jun 19, 2024 09:49 AM [facility] VITAMIN D (TOTAL) SERUM Specimen Type : SERUM No comment entered. Ordering Provider: ROSARIO ESCALERA Report Released Date/Time: Nov 20, 2023 01:30 PM Reporting Lab: [address] [phone] Performing Lab: [address] [address] VITAMIN D (TOTAL) 9 ng/mL L 30-60 Jun 19, 2024 09:49 AM [facility] MAGNESIUM PLASMA Specimen Type: PLASMA Comment: [...] Nov 20, 2023 01:30 PM Reporting Lab: [address] [phone] Performing Lab: [address] [address] MAGNESIUM 2.2 mg/dL 1.6-2.6 Jun 19, 2024 09:49 AM [facility] COMPREHENSIVE METABOLIC PANEL PLASMA S pecimen [...] Nov 20, 2023 01:30 PM Reporting Lab: [address] [phone] Performing Lab: [address] [address] ALBUMIN 4.8 g/dL 3.5-4.8 ALKALINE PHOSPHATASE 73 [...] 2024 09:49 AM [facility] TSH PLASMA Specimen Type: PLASMA Comment: [...] Nov 20, 2023 01:30 PM Reporting Lab: [address] [address] Performing Lab: [address] [address] TSH 4.701 u[IU]/mL 0.350-4.940 Jun 19, 2024 09:49 AM [facility] CBC BLOOD Specimen Type: BLOOD Comment: Manual Differential Performed. RBC and PLT morphology reviewed Slide reviewed for lymphocytosis Ordering Provider: ROSARIO ESCALERA Report Released Date/Time: Nov 20, 2023 01:30 PM Reporting Lab: [address] [phone] Performing Lab: [address] [address] WBC COUNT 14.7 10*3/uL H 3.6-11.0 RBC [...] and tobacco- related health factors from the [place] facility where the Encounter took place. Current Smoking Status This section includes the most current smoking, or tobacco-related health factor, from the [place] facility where the Encounter took place. Date/Time Current Smoking Status Comment Facil ity May 18, 2023 02:00 [facility] Tobacco Use History This section includes a history of the smoking, or tobacco-related health factors, that were collected on or before the date of the Encounter. The data comes from the [place] facility where the Encounter took place. Date/Time Smoking Status/Tobacco Use Comment F acility May 18, 2023 02:00 PM [facility] < 5 YRS [facility] Advance Directives: All historical and current Section Date Range: From patient's date of to the date document was created. This section includes ALL of a patient's completed or amended [place] Advance and Rescinded Directives. The entries below indicate that a directive exists for the patient, but an actual copy is not included with this document. The data comes from all [place] facilities. Date Advance Directives Provider Source October 22, 2023 ADVANCE DIRECTIVE DISCUSSION SABINA NAIR [facility] Encounter Notes: All associated encounter notes This section contains the clinical notes associated to the Encounter. Date/Time Encounter Note(s) Provider Source Jun 09, 2024 01:01 PM MENTAL HEALTH NOTE : LOCAL TITLE: [facility]ID[facility] BASED PSYCHOTHERAPY NOTE (T) STANDARD TITLE: MENTAL HEALTH NOTE DATE OF NOTE: JUN 09, 2024@13:01 ENTRY DATE: JUN 09, 2024@13:01:27 AUTHOR: ADDIS CLOUD COSIGNER: URGENCY: STATUS: COMPLETED DBT Session #6 Interpersonal Effectiveness Skills Session Time and Duration: 1:00 pm - 2:00 pm 60 minutes assessment: 02.09.2023 DIAGNOSIS: PTSD (SC); Insomnia; Depression; Personality D/O, Cluster B traits PATIENT'S STRENGTHS/ABILITIES: Self-Identified: moved to new house Provider Identified: able to tolerate grief support groups, new move stressors w/o SI Active partnership in [employer] PATIENT'S ABILITIES Licensed Application Support Administrator Able to transport self Date Treatment Plan [...] DBT Skills building DBT Skills Training: Module II Interpersonal Effectiveness Skills; Manual Handouts & Worksheets Handouts [place] is 28 y/o male w/100% SC being treated in Specialty for therapy. He presents on time to schedule in person therapy appt. He reports he has been working on DBT HW sheets daily w/forgetting the forms to bring in today. They review his ability to apply mindfulness w/his awareness of his ability to apply easier when w/his son as opposed to when alone. Review of his drifting thoughts to his and his ability to return to focus on exercise and/or tolerate unpleasant feelings. He reports some increase in emotional availability/awareness w/experiencing positive emotions when w/his son. They review if moving forward w/DBT is his goal d/t plan to start CBTI. [place] is open. They review his past attempts at sleep hygiene were not consistent and hope w/behavioral strategies and SRT. Reinforcement if he becomes too overwhelmed w/HW (for CBTI and migraine tracking) he can wait until CBTI completion prior to resuming DBT. They discuss if d/t holidays/grief he would like to continue w/mindfulness activities or proceed to Interpersonal Relationship skills building; he requests to move forward and willing to continue w/daily mindfulness exercises. DBT Manual utilized. Discussion about relationship and communication handouts. They review developing relationship skills and awareness of destructive relationship patterns. Examples utilized w/present couple he resides with and his tendency to internalize feelings/needs as well as his ability to be present for them and address difficult topics (ex. no follow up after discussion about them possibly moving out d/t his depression/lack of engagement w/house/relationships in the past few months). He is willing to try strategies discussed. [place] would like to meet again as scheduled. is calm and stable at the end of the session with no SI/HI noted. INTERVENTIONS: Assessed mental health status and reviewed events since last session. SW assesses SI/HI. SW reviews the goals for session. SW offers emotional support and uses active listening. SW reviews DBT Skills building manual and reviews concepts w/[place] today. SW reviews Mindfulness exercises and his efforts since last appts. SW reviews relationship skill building including assertive communication strategies and his ability to tolerate feelings of distress and pleasant emotions. 'S PARTICIPATION: x Actively participated in discussion Has a better understanding of therapeutic issues x Understood or demonstrated a new strategy/skill x Willing to practice discussed strategy/skill x Agrees to continue working towards treatment goals PLAN/HOMEWORK: 1. [place] to follow up with this SW for therapy 2. [place] to call clinic/V[facility] as needed in between sessions 3. medication mgmt. as scheduled 4. to follow Suicide Prevention plan from Mar 23, 2023. 5. Mindfulness Nonjudgemental exercises daily w/additional worksheets to practice for D.E.A.R.MJurgenAJurgenNJurgen and him to reflect on his attempts MENTAL STATUS EXAM: ORIENTATION AND CONSCIOUSNESS: Alert and attentive, Alert and oriented x 3 APPEARANCE AND BEHAVIOR: Cooperative and reasonable, walks independently, well kempt SPEECH: Normal rate/rhythm LANGUAGE: Intact MOOD AND AFFECT: Mood Slightly Depressed, Affect w/range and smiles noted at times PERCEPTUAL DISTURBANCE (Hallucinations, Illusions): None THOUGHT PROCESS [...] follow up with the biweekly for DBT [place] is aware to contact the clinic or the [place]'s Crisis Line with concerns prior to the next scheduled visit. Whole Health approaches used during this visit: [...] and improve concentration to restore the spirit. Evidence-Based Psychotherapy Suicide Prevention and Safety Planning Dialectical Behavior Therapy (DBT) The patient continues to engage in DBT. /deanna/ ADDIS VALLECILLO-SUPV CLINICIAL CARTON LINER Signed: 06/09/2024 14:35 ADDIS CLOUD [facility]
--- OUTSIDE RECORDS SUMMARY | 2024-06-16 11:00 | XMS_ITS ---
Author Name [facility] [place] Organization [place] Address [address] [place] [address] Care Team Providers Care Hemotherapist Name Role Phone ROSARIO ESCALERA Primary Care Provider [facility] Insurance Providers: All historical and current [...] section includes the information on record at [place] for the Encounter. Date/Time Encounter Type Encounter Description Reason Provider Source Jun 16, 2024 03:00 PM GRADE AND CENTER MARKER VOLUNTEER SERVICES ASSISTANT INDIVIDU GRADE AND CENTER MARKER SERVICE - INDIVIDUAL ICD-10-CM Z71.81 Spiritual or orthodox counseling BLADIMIR VENCES Encounter Template Text not used by [place] Assessments - Encounter Diagnoses This section includes the primary and secondary diagnoses documented for the Encounter. Date/Time Primary/Secondary Diagnosis Diagnosis Name Provider Source Jun 16, 2024 04:18 PM PRIMARY Spiritual or orthodox counseling BLADIMIR VENCES [facility] Plan of Treatment: Future Appointments (+ 6 months) and Future Tests (+/- 45 days) The Plan of Treatment section includes future care activities for the patient from all [place] treatmentfacilities. This section includes future appointments and future orders which are active, pending or scheduled. Future Appointments This section includes appointments that were scheduled to occur 6 months from the date of the Encounter, up to a maximum of 20 appointments. The data comes from all [facility]. Appointment Date/Time Appointment Type Appointme nt Facility Name Jun 19, 2024 09:45 AM AMBULATORY - NONE [facility] Jun 25, 2024 09:00 AM AMBULATORY - PSYCHIATRY [facility] Jun 25, 2024 09:30 AM AMBULATORY - NONE [facility] Jun 25, 2024 02:00 PM [facility]ULATORY - NONE [facility] Jul 03, 2024 01:00 PM AMBULATORY - PSYCHIATRY [facility] Jul 11, 2024 09:00 AM [facility] Jul 11, 2024 01:00 PM AMBULATORY - PSYCHIATRY [facility] Jul 15, 2024 03:00 PM AMBULATORY - SURGERY [facility] Jul 17, 2024 01:00 PM AMBULATORY - SURGERY [facility] Jul 18, 2024 01:00 PM AMBULATORY - PSYCHIATRY [facility] Jul 18, 2024 02:00 PM AMBULATORY - PSYCHIATRY [facility] Jul 21, 2024 09:30 AM [facility] Jul 25, 2024 02:30 PM AMBULATORY - NONE [facility] Aug 07, 2024 02:00 PM AMBULATORY - PSYCHIATRY [facility] Aug 11, 2024 01:30 PM AMBULATORY - SURGERY [facility] Aug 13, 2024 03:30 PM AMBULATORY - PSYCHIATRY [facility] Aug 20, 2024 02:00 PM AMBULATORY - SURGERY [facility] Aug 22, 2024 03:00 PM AMBULATORY - PSYCHIATRY [facility] Aug 26, 2024 02:30 PM AMBULATORY - NONE [facility] Aug 26, 2024 03:00 PM AMBULATORY - NONE [facility] Active, Pending, and Scheduled Orders This section includes a listing of several types of active, pending, and scheduled orders, including clinic medications orders, diagnostic test orders, procedure orders and consult orders; where the start date of the order is 45 days before the date of the Encounter or 45 days after the date of theEncounter. The data comes from all [facility]. Test Date/Time Test Type Test Details Facility Name May 21, 2024 12:00 AM Laboratory - Chemi stry Order URINALYSIS URINE SP ONCE [facility] Lab Results: +/- 30 days of the [...] Unit Interpretation Reference Range Specimen Type Comment Jul 15, 2024 03:49 PM [facility] ALLERGY PANEL, ZONE 8 SERUM Specimen Type: SERUM No comment entered. Ordering Provider: SIDDHARTHA ESPINAL Report Released Date/Time: Jul 15, 2024 03:37 PM Reporting Lab: [address] [address] Performing Lab: [address] [address] DERMATO PTER <0.10 kU/L <0.34 DERMATOPHAGOIDES FARINEA <0.10 kU/L <0.3 4 CAT EPITHELIUM <0.10 kU/L <0.34 DOG EPITHELIUM <0.10 kU/L <0.34 CANDY GRASS <0.10 kU/L <0.34 BAHIA GRASS <0.10 kU/L <0.34 BERMUDA GRASS <0.10 kU/L <0.34 NOVEMBER GRASS [facility] <0.10 kU/L <0 .34 COCKROACH, TURKMEN IgE <0.10 kU/L <0.34 PENICILLIUM NOTATUM <0.10 kU/L <0.34 CLADOSPORIUM HERBARUM <0.10 kU/L <0.34 ASPERGILLUS FUMIGATUS <0.10 kU/L <0.34 MUCOR RACEMOSUS <0.10 kU/L <0.34 ALTERNARIA TENIUS <0.10 kU/L <0.34 STEMPHYLIUM BOTRYOSUM <0.10 kU/L <0.34 MAPLE/BOX ELDER IgE <0.10 kU/L <0.34 SY[place]ORE TREE <0.10 kU/L <0.34 SWEET GUM TREE <0.10 kU/L <0.34 HAZELNUT POLLEN TREE <0.10 kU/L <0.34 WHITE [place] TREE <0.10 kU/L <0.34 MOUNTAIN CEDAR TREE <0.10 kU/L <0.34 OAK TREE <0.10 kU/L <0.34 WHITE MULBERRY TREE <0.10 kU/L <0.34 ELM TREE <0.10 kU/L <0.34 COMMON RAGWEED <0.10 kU/L <0.34 PIGWEED, ROUGH <0.10 kU/L <0.34 SHEEP SORREL <0.10 kU/L <0.34 NETTLE <0.10 kU/L <0.34 MUGWORT <0.10 kU/L <0.34 SALVADOREAN PLANTAIN <0.10 kU/L <0.34 Jul 15, 2024 03:49 PM [facility] IGE SERUM Specimen Type: SERUM No comment entered. Ordering Provider: SIDDHARTHA ESPINAL Report Released Date/Time: Jul 15, 2024 03:37 PM Reporting Lab: [address] [address] Performing Lab: [address] [address] IGE <21.0 [IU]/mL <99.9 Jun 19, 2024 09:49 AM [facility] LIPID PROFILE PLASMA Specimen Type: PLASMA Comment: [...] Nov 20, 2023 01:30 PM Reporting Lab: [address] [address] Performing Lab: [address] [address] CHOLESTEROL 243 mg/dL H <199 LDL CHOLESTEROL 172 mg/dL H 0-99 HDL CHOLESTEROL 33 mg/dL L >40 TRIGLYCERIDE 284 mg/dL H <149 Jun 19, 2024 09:49 AM [facility] VITAMIN D (TOTAL) SERUM Specimen Type : SERUM No comment entered. Ordering Provider: ROSARIO ESCALERA Report Released Date/Time: Nov 20, 2023 01:30 PM Reporting Lab: [address] [address] Performing Lab: [address] [address] VITAMIN D (TOTAL) 9 ng/mL L 30-60 Jun 19, 2024 09:49 AM [facility] MAGNESIUM PLASMA Specimen Type: PLASMA Comment: DLDLREF [...] Nov 20, 2023 01:30 PM Reporting Lab: [address] [address] Performing Lab: [address] [address] MAGNESIUM 2.2 mg/dL 1.6-2.6 Jun 19, 2024 09:49 AM [facility] COMPREHENSIVE METABOLIC PANEL PLASMA S pecimen Type: [...] Nov 20, 2023 01:30 PM Reporting Lab: [address] [address] Performing Lab: [address] [address] ALBUMIN 4.8 g/dL 3.5-4.8 ALKALINE PHOSPHATASE 73 [...] 104.0 mL/min Jun 19, 2024 09:49 AM [facility] TSH PLASMA Specimen Type: PLASMA Comment: DLDLREF [...] Nov 20, 2023 01:30 PM Reporting Lab: [address] [address] Performing Lab: [address] [address] TSH 4.701 u[IU]/mL 0.350-4.940 Jun 19, 2024 09:49 AM [facility] CBC BLOOD Specimen Type: BLOOD Comment: Manual Differential Performed. RBC and PLT morphology reviewed Slide reviewed for lymphocytosis Ordering Provider: ROSARIO ESCALERA Report Released Date/Time: Nov 20, 2023 01:30 PM Reporting Lab: [address] [address] Performing Lab: [address] [address] WBC COUNT 14.7 10*3/uL H 3.6-11.0 RBC [...] and tobacco- related health factors from the [place] facility where the Encounter took place. Current Smoking Status This section includes the most current smoking, or tobacco-related health factor, from the [place] facility where the Encounter took place. Date/Time Current Smoking Status Comment Facil ity Jun 06, 2024 11:30 AM VA-TOBACCO USE EVERY DAY CIGARET [facility] Tobacco Use History This section includes a history of the smoking, or tobacco-related health factors, that were collected on or before the date of the Encounter. The data comes from the [place] facility where the Encounter took place. 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 This section includes ALL of a patient's completed or amended [place] Advance and Rescinded Directives. The entries below indicate that a directive exists for the patient, but an actual copy is not included with this document. The data comes from all [place] facilities. Date Advance Directives Provider Source October 22, 2023 ADVANCE DIRECTIVE DISCUSSION SABINA NAIR [facility] Encounter Notes: All associated encounter notes This section contains the clinical notes associated to the Encounter. Date/Time Encounter Note(s) Provider Source Jun 16, 2024 03:00 PM PASTORAL CARE NOTE : LOCAL TITLE: GRADE AND CENTER MARKER NOTE (T) STANDARD TITLE: PASTORAL CARE NOTE DATE OF NOTE: JUN 16, 2024@15:00 ENTRY DATE: JUN 16, 2024@16:10:42 AUTHOR: BLADIMIR VENCES COSIGNER: URGENCY: STATUS: COMPLETED [place] logged into [facility] for individual grief support appointment and was open/receptive. [place] began by sharing the [place] had by son and household. shared some traditions started that continue (Ex. Letter to [place], Letter from [place]). [place] was receptive to exploring mindfulness on the mat when in martial arts class. noted times of flow and being truly present. [place] expressed an inability to apply this to life with son and in dealing with grief. expressed tears and needed a moment when thinking about son's face ( just like Cindy's when recalling him opening his gifts). [place] expressed hopes to not live in either polarity (100% grief at the start of grief event or 100% avoidance now). feels angry about forgetting certain memories or details of spouse. is receptive to exploring a safer middle to grieve, remember, make space for some sadness. Mental health provider tagged for communication/collaboration. Interventions: presence, active listening, reflective questions, grief processing, holiday traditions, mindfulness moments in martial arts, coping tools, encouragement, distress tolerance, validation, support. Plan: requested appointment by [facility] for 06/30/24 @ 3pm. [place] expressed gratitude. /deanna/ CHAPLAIN BLADIMIR CARLIN Signed: 06/16/2024 16:18 Receipt Acknowledged By: 06/16/2024 16:24 /deanna/ PANTERA MARTINS CLINICAL PSYCHOLOGIST for BLADIMIR GR[facility]DE [facility]
--- OUTSIDE RECORDS SUMMARY | 2024-06-23 08:37 | XMS_ITS | Encounter Summary ---
Author Name [facility] [place] Organization [place] Address [address] [place] [address] Care Team Providers Care Inside Steward/Stewardess Name Role Phone ROSARIO ESCALERA Primary Care Provider [facility] xuan Insurance Providers: All historical and current [...] section includes the information on record at [place] for the Encounter. Date/Time Encounter Type Encounter Description Reason Provider Source Jun 23, 2024 12:37 PM OFF/OP CONSLTJ NEW/EST SF 20 ONCOLOGY/TUMOR ICD-10-CM Z90.81 Acquired absence of spleen CECE SLAUGHTER Xuan Encounter Template Text not used by [place] Assessments - Encounter Diagnoses This section includes the primary and secondary diagnoses documented for the Encounter. Date/Time Primary/Secondary Diagnosis Diagnosis Name Provider Source Jun 23, 2024 12:42 PM PRIMARY Acquired absence of spleen CECE SLAUGHTER [facility] Plan of Treatment: Future Appointments (+ [...] 20 appointments. The data comes from all [facility]. Appointment Date/Time Appointment Type Appointme nt Facility Name Jun 25, 2024 09:00 AM AMBULATORY - PSYCHIATRY CL [facility] Jun 25, 2024 09:30 AM [facility] Jun 25, 2024 02:00 PM AMBULATORY - NONE [facility] Jul 03, 2024 01:00 PM AMBULATORY - PSYCHIATRY [facility] Jul 11, 2024 09:00 AM AMBULATORY - SURGERY [facility] Jul 11, 2024 01:00 PM AMBULATORY - PSYCHIATRY [facility] Jul 15, 2024 03:00 PM AMBULATORY - SURGERY [facility] Jul 17, 2024 01:00 PM AMBULATORY - SURGERY [facility] Jul 18, 2024 01:00 PM AMBULATORY - PSYCHIATRY [facility] Jul 18, 2024 02:00 PM AMBULATORY - PSYCHIATRY [facility] Jul 21, 2024 09:30 AM AMBULATORY - SURGERY [facility] Jul 25, 2024 02:30 PM AMBULATORY - NONE [facility] Aug 07, 2024 02:00 PM AMBULATORY - PSYCHIATRY [facility] Aug 11, 2024 01:30 PM AMBULATORY - SURGERY [facility] Aug 13, 2024 03:30 PM AMBULATORY - PSYCHIATRY [facility] Aug 20, 2024 02:00 PM AMBULATORY - SURGERY [facility] Aug 22, 2024 03:00 PM AMBULATORY - PSYCHIATRY [facility] Aug 26, 2024 02:30 PM AMBULATORY - NONE [facility] Aug 26, 2024 03:00 PM AMBULATORY - NONE [facility] Aug 27, 2024 02:45 PM AMBULATORY - NONE [facility] Active, Pending, and Scheduled Orders This section includes a listing of several types of active, pending, and scheduled orders, including clinic medications orders, diagnostic test orders, procedure orders and consult orders; where the start date of the order is 45 days before the date of the Encounter or 45 days after the date of theEncounter. The data comes from all [facility]. Test Date/Time Test Type Test Details Facility Name May 21, 2024 12:00 AM Laboratory - Chemi delbert Order URINALYSIS URINE SP ONCE [facility] Lab Results: +/- 30 days of [...] Type Comment Jul 15, 2024 03:49 PM [facility] ALLERGY PANEL, ZONE 8 SERUM Specimen Type: SERUM No comment entered. Ordering Provider: SIDDHARTHA ESPINAL Report Released Date/Time: Jul 15, 2024 03:37 PM Reporting Lab: [address] [address] Performing Lab: [address] [address] DERMATO PTER <0.10 kU/L <0.34 DERMATOPHAGOIDES FARINEA <0.10 kU/L <0.3 4 CAT EPITHELIUM <0.10 kU/L <0.34 DOG EPITHELIUM <0.10 kU/L <0.34 CANDY GRASS <0.10 kU/L <0.34 BAHIA GRASS <0.10 kU/L <0.34 BERMUDA GRASS <0.10 kU/L <0.34 JACKIE GRASS [facility]) <0.10 kU/L <0 .34 COCKROACH, SYRIAC IgE <0.10 kU/L <0.34 PENICILLIUM NOTATUM <0.10 [...] <0.10 kU/L <0.34 MUGWORT <0.10 kU/L <0.34 VIETNAMESE PLANTAIN <0.10 kU/L <0.34 Jul 15, 2024 03:49 PM [facility] IGE SERUM Specimen Type: SERUM No comment entered. Ordering Provider: SIDDHARTHA ESPINAL Report Released Date/Time: Jul 15, 2024 03:37 PM Reporting Lab: [address] [address] Performing Lab: [address] [address] IGE <21.0 [IU]/mL <99.9 Jun 19, 2024 09:49 AM [facility] MAGNESIUM PLASMA Specimen Type: PLASMA Comment: [...] Nov 20, 2023 01:30 PM Reporting Lab: [address] [address] Performing Lab: [address] [address] MAGNESIUM 2.2 mg/dL 1.6-2.6 Jun 19, 2024 09:49 AM [facility] LIPID PROFILE PLASMA Specimen Type: PLASMA [...] Nov 20, 2023 01:30 PM Reporting Lab: [address] [address] Performing Lab: [address] [address] CHOLESTEROL 243 mg/dL H <199 LDL CHOLESTEROL 172 mg/dL H 0-99 HDL CHOLESTEROL 33 mg/dL L >40 TRIGLYCERIDE 284 mg/dL H <149 Jun 19, 2024 09:49 AM [facility] VITAMIN D (TOTAL) SERUM Specimen Type : SERUM No comment entered. Ordering Provider: ROSARIO ESCALERA Report Released Date/Time: Nov 20, 2023 01:30 PM Reporting Lab: [address] [address] Performing Lab: [address] [address] VITAMIN D (TOTAL) 9 ng/mL L 30-60 Jun 19, 2024 09:49 AM [facility] TSH PLASMA Specimen Type: PLASMA Comment: [...] Nov 20, 2023 01:30 PM Reporting Lab: [address] [address] Performing Lab: [address] [address] TSH 4.701 u[IU]/mL 0.350-4.940 Jun 19, 2024 09:49 AM [facility] COMPREHENSIVE METABOLIC PANEL PLASMA S pecimen [...] Nov 20, 2023 01:30 PM Reporting Lab: [address] [address] Performing Lab: [address] [address] ALBUMIN 4.8 g/dL 3.5-4.8 ALKALINE PHOSPHATASE 73 [...] 104.0 mL/min Jun 19, 2024 09:49 AM [facility] CBC BLOOD Specimen Type: BLOOD Comment: Manual Differential Performed. RBC and PLT morphology reviewed Slide reviewed for lymphocytosis Ordering Provider: ROSARIO ESCALERA Report Released Date/Time: Nov 20, 2023 01:30 PM Reporting Lab: [address] [address] Performing Lab: [address] [address] WBC COUNT 14.7 10*3/uL H 3.6-11.0 RBC [...] and tobacco- related health factors from the [place] facility where the Encounter took place. Current Smoking Status This section includes the most current smoking, or tobacco-related health factor, from the [place] facility where the Encounter took place. Date/Time Current Smoking Status Comment Facil ity Jun 06, 2024 11:30 AM VA-TOBACCO USE EVERY DAY CIGARET [facility] Tobacco Use History This section includes a history of the smoking, or tobacco-related health factors, that were collected on or before the date of the Encounter. The data comes from the [place] facility where the Encounter took place. 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 This section includes ALL of a patient's completed or amended [place] Advance and Rescinded Directives. The entries below indicate that a directive exists for the patient, but an actual copy is not included with this document. The data comes from all [place] facilities. Date Advance Directives Provider Source October 22, 2023 ADVANCE DIRECTIVE DISCUSSION SABINA NAIR [facility] Pathology Reports: +/- 30 days of the encounter Pathology Reports For cases when an order for pathology services may have been completed prior to the date of the Encounter, the report list includes the Pathology Reports that were completed up to 30 days before dateof the Encounter. For cases when an order for pathology services may have been completed after the date of the Encounter, the report list also includes the Pathology Reports that were completed up to30 days after date of the Encounter. The data comes from all [facility] facilities. Date/Time Pathology Report Provider Source Jul 23, 2024 02:14 PM LR SURGICAL PATHOL OGY REPORT: LOCAL TITLE: LR SURGICAL PATHOLOGY REPORT STANDARD TITLE: PATHOLOGY REPORT DATE OF NOTE: JUL 23, 2024@14:14:05 ENTRY DATE: JUL 23, 2024@14:14:05 AUTHOR: PAULA HAND EXP COSIGNER: URGENCY: STATUS: COMPLETED $APHDR - - - - - - - - - - - - - - - - - - - - - - - - - - - - - - - - - - - - - - - - MEDICAL RECORD SURGICAL PATHOLOGY - - - - - - - - - - - - - - - - - - - - - - - - - - - - - - - - - - - - - - - - PATHOLOGY REPORT Accession No. [id number] - - - - - - - - - - - - - - - - - - - - - - - - - - - - - - - - - - - - - - - - $TEXT Submitted by: JUAN PABLO PRIETO Date obtained: Jul 21, 2024 - - - - - - - - - - - - - - - - - - - - - - - - - - - - - - - - - - - - - - - - Specimen (Received Jul 22, 2024 11:43): A-LEFT VAS DEFERENS B-RIGHT VAS DEFERENS - - - - - - - - - - - - - - - - - - - - - - - - - - - - - - - - - - - - - - - - BRIEF CLINICAL HISTORY: - - - - - - - - - - - - - - - - - - - - - - - - - - - - - - - - - - - - - - - - PREOPERATIVE DIAGNOSIS: ELECTIVE STERILIZATION - - - - - - - - - - - - - - - - - - - - - - - - - - - - - - - - - - - - - - - - OPERATIVE FINDINGS: - - - - - - - - - - - - - - - - - - - - - - - - - - - - - - - - - - - - - - - - POSTOPERATIVE DIAGNOSIS: ELECTIVE STERILIZATION Surgeon/physician: JUAN PABLO PRIETO Attending Surgeon: Jeffrey Chandler MD =-=-=-=-=-=-=-=-=-=-=-=-=-=-=-=-=-= -=-=-=-=-=-=-=-=-=-=-=-=-=-=-=-=-=- =-=-=-=-= - - - - - - - - - - - - - - - - - - - - - - - - - - - - - - - - - - - - - - - - PATHOLOGY REPORT Accession No. [id number] - - - - - - - - - - - - - - - - - - - - - - - - - - - - - - - - - - - - - - - - Diagnosis A. LEFT VAS DEFERENS, VASECTOMY: - SEGMENT OF VAS DEFERENS, COMPLETELY TRANSECTED LUMEN. B. RIGHT VAS DEFERENS, VASECTOMY: - SEGMENT OF VAS DEFERENS, COMPLETELY TRANSECTED LUMEN. CPT: [id number] x 2 GROSS DESCRIPTION A. Specimen is received in formalin, labeled with the patient's name, medical record number and left vas deferens . It consists of a 0.8 cm in length by 0.3 cm in diameter cylindrical, frey-pink soft tissue fragment. The tips of the specimen are inked blue for orientation purposes. The specimen is entirely submitted in one cassette for sectioning at embedding. B. Specimen is received in formalin, labeled with the patient's name, medical record number and right vas deferens . It consists of a 0.5 cm in length by 0.3 cm in diameter cylindrical, frey-pink soft tissue fragment. The tips of the specimen are inked blue for orientation purposes. The specimen is entirely submitted in one cassette for sectioning at embedding. PIERRE gonzalez/ PAULA HAND PATHOLOGIST Signed Jul 23, 2024@14:14 Performing Laboratory: Surgical Pathology Report Performed By: [facility] [CLIA# [id number]] [address] [place] [address] $FTR - - - - - - - - - - - - - - - - - - - - - - - - - - - - - - - - - - - - - - - - (End of report) PAULA HAND MD rr Date Jul 23, 2024 - - - - - - - - - - - - - - - - - - - - - - - - - - - - - - - - - - - - - - - - MARION ZHENG STANDARD FORM 515 ID:[id number] SEX:M :1995 AGE: 28 LOC:[facility] PCP: Rosario Escalera DO /alexandro HAND PATHOLOGIST Signed: 07/23/2024 14:14 PAULA HAND [facility] Encounter Notes: All associated encounter notes This section contains the clinical notes associated to the Encounter. 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 Flow cytometry completed in 12/2023 with no concerning hematological findings. WBC and ALC have slightly increased since that time. There does not to be any indication of frequent or unexplained illnessses or infections Elevated counts may be related to history of splenectomy Recommend continuing to monitor labs q 6 months and refer to hem if WBC >20K /alexandro SLAUGHTER CLINICAL NURSE SPECIALIST Signed: 06/23/2024 12:42 CECE SLAUGHTER [facility]
--- OUTSIDE RECORDS SUMMARY | 2024-06-25 05:00 | XMS_ITS | Encounter Summary ---
Author Name [facility] [place] Organization [facility] [place] Address [address] [place] [address] Care Team Providers Care Cap And Stud Machine Operator Name Role Phone ROSARIO ESCALERA Primary [...] section includes the information on record at [place] for the Encounter. Date/Time Encounter Type Encounter Description Reason Provider Source Jun 25, 2024 09:00 AM MTMS BY LISA LÓPEZ [facility] - IND ICD-10-CM F43.12 Post-traumatic stress disorder, chronic VALENTINA TENORIO Encounter Template Text not used by [place] Assessments - Encounter Diagnoses This section includes the primary and secondary diagnoses documented for the Encounter. Date/Time Primary/Secondary Diagnosis Diagnosis Name Provider Source Jun 26, 2024 07:53 AM PRIMARY Post-traumatic stress disorder, chronic [facility] Jun 26, 2024 07:53 AM SECONDARY Major depressive disorder, single episode, unspecified [facility] Jun 26, 2024 07:53 AM SECONDARY Personality disorder, unspecified WILLBORN,VALENTINA T J DANN [facility] Jun 26, 2024 07:53 AM SECONDARY Primary insomnia VALENTINA TENORIO [facility] Jun 26, 2024 07:53 AM SECONDARY Suicidal ideations VALENTINA TENORIO [facility] Plan of Treatment: Future Appointments (+ 6 months) and Future Tests (+/- 45 days) The Plan of Treatment section includes future care activities for the patient from all [place] [facility]. This section includes future appointments and future orders which are active, pending or scheduled. Future Appointments This section includes appointments that were scheduled to occur 6 months from the date of the Encounter, up to a maximum of 20 appointments. The data comes from all [facility]. Appointment Date/Time Appointment Type Appointme nt Facility Name Jul 03, 2024 01:00 PM AMBULATORY [facility]RY [facility] Jul 11, 2024 09:00 AM AMBULATORY - SURGERY [facility] Jul 11, 2024 01:00 PM AMB[facility]ATORY [facility]IATRY [facility] Jul 15, 2024 03:00 PM AMBULATORY - SURGERY [facility] Jul 17, 2024 01:00 PM [facility] Jul 18, 2024 01:00 PM [facility] Jul 18, 2024 02:00 PM AMBULATORY [facility] PS[facility]IATRY [facility] Jul 21, 2024 09:30 AM AMBULATORY - SURGERY [facility] Jul 25, 2024 02:30 PM AMBULATORY - NONE [facility] Aug 07, 2024 02:00 PM AMBULATORY [facility] PS[facility]CHIATRY [facility] Aug 11, 2024 01:30 PM [facility] Aug 13, 2024 03:30 PM [facility]RY [facility] Aug 20, 2024 02:00 PM [facility] Aug 22, 2024 03:00 PM [facility]ATRY [facility] Aug 26, 2024 02:30 PM [facility]ORY - NONE [facility] Aug 26, 2024 03:00 PM AMBULATORY - NONE [facility] Aug 27, 2024 02:45 PM AMBULATORY - NONE DANN [facility] Aug 27, 2024 03:00 PM AMBULATORY [facility] PS[facility]CHIATRY [facility] Aug 28, 2024 09:30 AM AMBULATORY [facility] PS[facility]CHIATRY [facility] Aug 29, 2024 01:30 PM AMBULATORY - PSYCHIATRY [facility] Active, Pending, and Scheduled Orders This section includes a listing of several types of active, pending, and scheduled orders, including clinic medications orders, diagnostic test orders, procedure orders and consult orders; where the start date of the order is 45 days before the date of the Encounter or 45 days after the date of theEncounter. The data comes from all [place] treatment facilities. Test Date/Time Test Type Test Details Facility Name May 21, 2024 12:00 AM Laboratory - Chemi stry Order URINALYSIS URINE SP ONCE [facility] Lab Results: +/- 30 days of the encounter This section includes the Chemistry and Hematology Lab Results on record with [place] for the patient. Radiology Reports and Pathology Reports are provided separately, in subsequent sections. Lab Results This section contains the Chemistry/Hematology Results that were resulted 30 days before or 30 daysafter the date of the Encounter. Date/Time Source Result Type Result - Unit Interpretation Reference Range Specimen Type Comment Jul 15, 2024 03:49 PM [facility] ALLERGY PANEL, ZONE 8 SERUM Specimen Type: SERUM No comment entered. Ordering Provider: SIDDHARTHA ESPINAL Report Released Date/Time: Jul 15, 2024 03:37 PM Reporting Lab: [address] [address] Performing Lab: [address] [address] DERMATO PTER <0.10 kU/L <0.34 DERMATOPHAGOIDES FARINEA <0.10 kU/L <0.3 4 CAT EPITHELIUM <0.10 kU/L <0.34 DOG EPITHELIUM <0.10 kU/L <0.34 CANDY GRASS <0.10 kU/L <0.34 BAHIA GRASS <0.10 kU/L <0.34 BERMUDA GRASS <0.10 kU/L <0.34 NOVEMBER GRASS ([place] BLUE) <0.10 kU/L <0 .34 COCKROACH, CYMRO IgE <0.10 kU/L <0.34 PENICILLIUM NOTATUM <0.10 [...] <0.10 kU/L <0.34 MUGWORT <0.10 kU/L <0.34 [place] <0.10 kU/L <0.34 Jul 15, 2024 03:49 PM [facility] IGE SERUM Specimen Type: SERUM No comment entered. Ordering Provider: SIDDHARTHA ESPINAL Report Released Date/Time: Jul 15, 2024 03:37 PM Reporting Lab: [address] [address] Performing Lab: [address] [address] IGE <21.0 [IU]/mL <99.9 Jun 19, 2024 09:49 AM [facility] LIPID PROFILE PLASMA Specimen Type: PLASMA [...] Nov 20, 2023 01:30 PM Reporting Lab: [address] [address] Performing Lab: [place] [id number] CHOLESTEROL 243 mg/dL H <199 LDL CHOLESTEROL 172 mg/dL H 0-99 HDL CHOLESTEROL 33 mg/dL L >40 TRIGLYCERIDE 284 mg/dL H <149 Jun 19, 2024 09:49 AM [facility] VITAMIN D (TOTAL) SERUM Specimen Type : SERUM No comment entered. Ordering Provider: ROSARIO ESCALERA Report Released Date/Time: Nov 20, 2023 01:30 PM Reporting Lab: [address] [address] Performing Lab: [address] [address] VITAMIN D (TOTAL) 9 ng/mL L 30-60 Jun 19, 2024 09:49 AM [facility] MAGNESIUM PLASMA Specimen Type: PLASMA Comment: [...] Nov 20, 2023 01:30 PM Reporting Lab: [address] [address] Performing Lab: [address] [address] MAGNESIUM 2.2 mg/dL 1.6-2.6 Jun 19, 2024 09:49 AM [facility] COMPREHENSIVE METABOLIC PANEL PLASMA S pecimen [...] Nov 20, 2023 01:30 PM Reporting Lab: [address] [address] Performing Lab: [address] [address] ALBUMIN 4.8 g/dL 3.5-4.8 ALKALINE PHOSPHATASE 73 [...] 104.0 mL/min Jun 19, 2024 09:49 AM [facility] TSH PLASMA Specimen Type: PLASMA Comment: [...] Nov 20, 2023 01:30 PM Reporting Lab: [address] [address] Performing Lab: [address] [address] TSH 4.701 u[IU]/mL 0.350-4.940 Jun 19, 2024 09:49 AM [facility] CBC BLOOD Specimen Type: BLOOD Comment: Manual Differential Performed. RBC and PLT morphology reviewed Slide reviewed for lymphocytosis Ordering Provider: ROSARIO ESCALERA Report Released Date/Time: Nov 20, 2023 01:30 PM Reporting Lab: [address] [address] Performing Lab: [address] [address] WBC COUNT 14.7 10*3/uL H 3.6-11.0 RBC [...] and tobacco- related health factors from the [place] facility where the Encounter took place. Current Smoking Status This section includes the most current smoking, or tobacco-related health factor, from the [place] facility where the Encounter took place. Date/Time Current Smoking Status Comment Facil ity May 18[facility] 2023 02[facility]00 [facility] Tobacco Use History This section includes a history of the smoking, or tobacco-related health factors, that were collected on or before the date of the Encounter. The data comes from the [place] facility where the Encounter took place. Date/Time Smoking Status/Tobacco Use Comment F acility May 18, 2023 02:00 PM [facility] < 5 YRS [facility] Advance Directives: All historical and current Section Date Range: From patient's date of to the date document was created. This section includes ALL of a patient's completed or amended [place] Advance and Rescinded Directives. The entries below indicate that a directive exists for the patient, but an actual copy is not included with this document. The data comes from all [place] facilities. Date Advance Directives Provider Source October [...] the Encounter. The data comes from all [place] treatment facilities. Date/Time Radiology Report Provider Source Jul 25, 2024 02:35 PM P/D CT TEMPORAL NICKIE NE W/O CONTRAST : MARION ZHENG [id number] -1995 M Exm Date: JUL 25, 2024@14:35 Req Phys: SIDDHARTHA ESPINAL Pat Loc: [facility]LYST 1 (Req'g Loc) Img Loc: [facility] Service: [place] [address] (Case [id number] COMPLETE)[employer] [facility] CT (CT Detailed) CPT:72969 Reason for Study: conductive hearing loss Clinical History: [address] [id number] Report Status: Verified Date Reported: JUL 28, 2024 Date Verified: JUL 28, 2024 Automotive Leasing Sales Representative E-Sig:/ES/KULDIP MCELROY Report: CT OF PARANASAL AIR SINUSES , 07/25/2024 . Comparison : None . Clinical Information : 28-year-old male with history of chronic sinusitis . CT of the paranasal air sinuses for further evaluation . Technique : 1.0 mm contiguous axial sections were obtained through the paranasal air sinuses and images were reconstructed in sagittal and coronal plane .Total radiation dose was 156 mGy per *cm Findings : Deviated nasal septum with bony spur to the right soft tissue in the roof of the nasopharynx is likely hypertrophic adenoid. Soft tissue narrows the nasopharyngeal airway and indents the soft palate . Bilateral frontal, anterior and posterior ethmoid air cells , bilateral sphenoid , bilateral maxillary sinus are normal . No mucosal thickening or retention cyst within these sinuses . Osteomeatal complex is patent . No evidence of obstruction . Bilateral external auditory canal are normal. Bony inner ear structures are normal . Mastoid fluid in the middle ear and mastoid air cells, right side more than left. Bilateral internal auditory meatus are normal . Bilateral orbits with their contents which include the globe , optic nerve , extraocular muscles , retro-orbital fat and lacrimal glands normal . Bony grayson of the paranasal air sinuses are normal . Maxilla is normal . Bilateral temporomandibular joints are normal . Prominent level 1, level 2 lymph nodes. Impression: Mild deviation of the nasal septum. Soft tissue in the roof of the nasal cavity is likely hypertrophic adenoids. Minimal fluid in bilateral middle ear and mastoid air cells, right side more than left. Prominent lymph nodes in the neck. Finalized by Erich Mcelroy MD On 07/28/2024 2:02 PM Primary Diagnostic Code: Primary Interpreting Staff: KULDIP MCELROY, RADIOLOGIST (Autom[employer] Leasing Sales Representative) /KULDIP WHITAKER CB Jul 25, 2024 02:[address] TEMPORAL BONE W /O CONTRAST: MARCEMARION [id number] -1995 M Exm Date: JUL 25, 2024@14:34 Req Phys: SIDDHARTHA ESPINAL Loc: [facility] TABLE[facility]NALYST 1 (Req'g Loc) [facility] Loc: [facility] CT Service: [place] [address] (Case [id number] COMPLETE)CT TEMPORAL BONE W/O CONTRAST (CT Detailed) CPT:05983 Reason for Study: chronic congestion, right nasal obstruction Clinical History: Report Status: Verified Date Reported: JUL 28, 2024 Date Verified: JUL 28, 2024 Autom[employer] Leasing Sales Representative E-Sig:/ES/KULDIP MCELROY Report: CT TEMPORAL BONE , 07/25/2024 . Comparison: None . Clinical information : 28-year-old male presenting with history of fullness in the ear. CT is requested for further evaluation. Technique : Contiguous 0.4 mm sections were obtained through the temporal bone. Images were reconstructed in axial and coronal plane with bone algorithm .Total radiation dose was 155 mGy per *cm Findings : On the right side : External auditory canal is normal . Tympanic membrane is retracted. Fluid in the middle ear cavity surrounding the incus and stapes and part of malleus. Head of malleus is not surrounded by fluid. Fluid in the mastoid air cells. Inner ear structures which include bony cochlea and semicircular canal are normal. Oval and round window are normal . Facial nerve canal is normal . Endolymphatic duct and sac are normal . Vestibular and cochlear aqueduct are unremarkable. On the left side : External auditory canal is normal . Retracted tympanic membrane . Fluid in the middle ear which surrounds the stapes and part of malleus. Fluid in the mastoid air cells. High positioned left jugular bulb which projects into the floor of the middle ear cavity. Inner ear structures which include bony cochlea and semicircular canal are normal . Oval and round window are normal . Facial nerve canal is normal . Endolymphatic duct and sac are normal . Vestibular and cochlear aqueduct are unremarkable. High positioned left jugular bulb. Bilaterally the internal auditory meatus are normal . Carotid canal, styloid process, mandibular condyle are normal . Brain parenchyma, paranasal air sinuses and orbits with their contents to the extent visualized are normal . Septated right maxillary sinus. Impression: Fluid in bilateral middle ear cavities and mastoid air cells, right side more than left. Fluid surrounding the ossicles in the middle ear. Differentials include otitis media, eustachian tube dysfunction. No bony erosion or ossicular chain disruption . High positioning of the left jugular bulb. Finalized by Erich Mcelroy MD On 07/28/2024 11:38 AM Primary Diagnostic Code: Primary Interpreting Staff: KULDIP MCELROY, RADIOLOGIST (Autom[employer] Leasing Sales Representative) /[facility]IP WHITAKER [facility] Pathology Reports: +/- 30 days of the [...] the Encounter. The data comes from all [place] treatment facilities. Date/Time Pathology Report Provider Source Jul [...] OF VAS DEFERENS, COMPLETELY TRANSECTED LUMEN. CPT: 67771 x 2 GROSS DESCRIPTION A. Specimen is [...] one cassette for sectioning at embedding. PIERRE /deanna/ PAULA HAND PATHOLOGIST Signed Jul 23, 2024@14:14 Performing Laboratory: Surgical Pathology Report Performed By: [facility] [CLIA# [id number]] [address] [place] [address] $FTR - - - - - - - - - - - - - - - - - - - - - - - - - - - - - - - - - - - - - - - - (End of report) PAULA HAND MD Date Jul 23, 2024 - - - - - - - - - - - - - - - - - - - - - - - - - - - - - - - - - - - - - - - - MARION ZHENG STANDARD FORM 515 ID:[id number] SEX:M :1995 AGE: 28 LOC:[facility] PCP: Rosario Escalera DO /deanna/ PAULA HAND PATHOLOGIST Signed: 07/23/2024 14:14 PAULA HAND [facility] Encounter Notes: All associated encounter notes This section contains the clinical notes associated to the Encounter. Date/Time Encounter Note(s) Provider Source Jun 25, 2024 09:09 AM PRIMARY CARE NURSI NG NOTE: LOCAL TITLE: OUTPATIENT NURSING INTAKE NOTE (T) STANDARD TITLE: PRIMARY CARE NURSING NOTE DATE OF NOTE: JUN 25, 2024@09:09 ENTRY DATE: JUN 25, 2024@09:09:21 AUTHOR: BLANK MENG EXP COSIGNER: URGENCY: STATUS: COMPLETED OUTPATIENT NURSING INTAKE NOTE (T) Has ADDENDA Hemoglobin A1C Results: No Hemoglobin A1C Results Review Allergies Allergies reviewed and updated per protocol. ALLERGIES/ADVERSE REACTIONS Type: DRUG Date/Time Reactant Severity Reaction 02/15/2023 16:29 HYDROMORPHONE URTICARIA 02/15/2023 16:29 OXYCODONE NAUSEA AND VOMITING 02/15/2023 16:28 MORPHINE ANAPHYLAXIS Clinical Reminders Activity Pain, Brief Evaluation: Type of pain: Ongoing Location: Knee Description of Pain: Aching MEDICATION LIST REVIEW REPORT Patient states no change in documented OTC/Herbals at this visit. 1. Has the patient been feeling sad or distressed? No 2. Has the patient been having personal or family problems? No 3. Has the patient been experiencing worry and/or stress? No 4. Has the patient been having problems with drugs and/or alcohol? No 5. [facility] Crisis Line pocket card was provided to patient. No/patient declined Last Whole Health MAP ('s [place], [place], & [place]): 12/27/2023 Personal Health Plan [place], [place], [place] (MAP) pain management Clinical Reminders Activity Patient Education Documentation: LEARNING NEEDS ASSESSMENT: The patient/family/significant other reports no changes in learning needs. /deanna/ BLANK MENG LICENSED PRACTICAL NURSE Signed: 06/25/2024 09:10 06/25/2024 ADDENDUM STATUS: COMPLETED Clinical Reminders Activity COVID-19 Immunization: Refused Pfizer Monovalent COVID-19 vaccine Immunization: COVID-19 (PFIZER), MRNA, LNP-S, PF, MAGED-SUCROSE, 30 MCG/0.3 ML (AGES 12+ YEARS) Refusal Reason: PATIENT DECISION Patient refuses all immunization(s) in the COVID-19 group Date Documented: 06/25/24 09:39 /deanna/ LEYLA MORAN LICENSED PRACTICAL NURSE Signed: 06/25/2024 09:39 [facility] Jun 25, 2024 08:56 AM PSYCHIATRY NOTE: LOCAL TITLE: [facility] PSYCHIATRY NOTE (T) STANDARD TITLE: PSYCHIATRY NOTE DATE OF NOTE: JUN 25, 2024@08:56 ENTRY DATE: JUN 25, 2024@08:56:38 AUTHOR: ABAD TENORIO COSIGNER: URGENCY: STATUS: COMPLETED PSYCHIATRIC EVALUATION NOTE Time in: 905 Time out: 937 Total time: 32 min AI is a 28yom w/ a MH h/o PTSD, depressive DO unspecified, personality DO unspecified, and insomnia. Chart and available information reviewed. CC: amitriptyline and sleep HPI: Marion was last interviewed 05/26/24 where we discussed amitriptyline trial limited to the last few [...] of sleep, where TCA may target, he was hopeful to see more benefit from medication investment. He is contemplating a later dosing time, given a later bedtime typically. I think I'm taking it too early, fighting through it . We reviewed this and some concerns for sleep hygiene. Discussed reminders on phone or other adherence prompts. No particular stressors of late, although reviewing his appointments, particularly therapy, where topics of discussion will carry weight into the next couple days. Denied negative thought content on prompting. Will monitor as planned. Napoleon seen for F2F appt as planned. Reporting ongoing adherence to sertraline, as prescribed, yielding durable perceptions in both tolerability and benefit. Discussed managing appropriately throughout the holiday season and associated stressors. Stated his roommate, Ashlee, dealing with kidney stones and leading to increased duties around the home at this time. Me and Himanshu are doing this balancing act, with his work and the kids and everything else.. it hasn't been too bad, honestly.. looking at it as an opportunity to show that I can step up . With his sleep and TCA use, still finding latency to be an issue. I'm not sure that this is effective ; taking the 20mg dose preceding desired bedtime. Even trying to get on a sleep schedule, I'm up until 0200, 0300.. or I do go to sleep, say around 2330, and waking up at 0550 and I'm up . These variable patterns seem irrespective of TCA use. As far as his headaches go, I haven't had any flareups.. maybe one minor one, and otherwise no full on migraines, like I had before . Reported associating this with divalproex start, as opposed to TCA, which had been more often taken then not, still, with some days of disuse. As far as the amitriptyline, I don't feel like there's going to be much benefit working up on it.. or it might be like the trazodone , alluding to grogginess concerns. Reviewed prior lack of JUDIT on SSRI titration previously, informing want to stay the same right now . Otherwise, setting sleep aside, the anxiety and panic attacks, they are hit or miss.. some days I don't have any issues, other days I'm anxious leaving the house.. and uneasy feeling the entire time I'm out . Denied an obvious trigger in this. Cited some mild panic attacks, with palpitations, heaviness in chest, edginess. That panic induced adrenaline [place].. I could be sitting on my couch watching TV.. no obvious trigger to them . He is unsure if SSRI influences frequency or severity of these. He declines want for alternative monotherapy trial, and stated interest in review of augmentation agents, which we completed, concordant with literature and limitations. He will hold TCA use for situations of absolute need, and trial buspirone addition, as desired. Monitor for signs and symptoms of serotonin syndrome/serotonin toxicity (eg, hyperreflexia, clonus, hyperthermia, diaphoresis, tremor, autonomic instability, mental status changes) when these drugs are combined. Patients with other risk factors (eg, higher drug concentrations/doses, greater numbers of serotonergic agents) are likely at greater risk for these potentially life- threatening toxicities. Reviewed serotonin toxicity monitoring generally, and with respect to relative risk of agents and doses being used. He denied questions or concerns. Denied SI/HI at present. SUBSTANCE USE HX: Nicotine- vaped nicotine; deferred cessation interest at this time Alcohol- denied Illicit- denied PSYCHIATRIC MEDICATION HISTORY: According to CPRS and JLV remote data of [place] outpatient Rx, the pt has a h/o TRAZODONE (non-VA); ESCITALOPRAM (up to 20mg daily, non-VA); HYDROXYZINE (25mg PRN anxiety, non-VA); SERTRALINE. FLUOXETINE (20mg non-VA); ARIPIPRAZOLE (2mg non-VA). Since engagement with this service writer: SERTRALINE; LITHIUM. VENLAFAXINE. ALLERGIES/ADVERSE REACTIONS Type: DRUG Date/Time Reactant Severity Reaction 02/15/2023 16:29 HYDROMORPHONE URTICARIA 02/15/2023 16:29 OXYCODONE NAUSEA AND VOMITING 02/15/2023 16:28 MORPHINE ANAPHYLAXIS Active Outpatient Medications Status 1) AMITRIPTYLINE HCL 10MG TAB TAKE 1 TO 2 TABLETS BY ACTIVE MOUTH AT BEDTIME NEEDED FOR SLEEP 2) ATORVASTATIN CALCIUM 10MG TAB TAKE ONE TABLET BY ACTIVE MOUTH EVERY DAY 3) CHOLECALCIF 25MCG (D3-1,000UNIT) TAB TAKE THREE ACTIVE TABLETS BY MOUTH EVERY DAY FOR VITAMIN D DEFICIENCY 4) DIVALPROEX 500MG 24HR (ER) SA TAB TAKE ONE TABLET BY ACTIVE MOUTH AT BEDTIME 5) SERTRALINE HCL 50MG TAB TAKE ONE TABLET BY MOUTH ACTIVE (S) EVERY DAY Inactive Outpatient Medications Status 1) FLUTICASONE PROP 50MCG 120D NASAL INHL USE 2 SPRAYS IN EACH NOSTRIL EVERY DAY NASAL CONGESTION LABS: ANION GAP:13 (06/19/24 09:49) PLASMA BUN: 12.0 (06/19/24 09:49) PLASMA CA: 9.5 (06/19/24 09:49) PLASMA CL: 107 (06/19/24 09:49) PLASMA CO2: 21 (06/19/24 09:49) PLASMA CREA: 1.0 (06/19/24 09:49) PLASMA EGFR: 104.0 (06/19/24 09:49) PLASMA GLUCOSE: 94 (06/19/24 09:49) PLASMA K: 4.3 (06/19/24 09:49) PLASMA NA: 137 (06/19/24 09:49) PLASMA ALBUMIN: 4.8 (06/19/24 09:49) PLASMA ALKPHOS: 73 (06/19/24 09:49) PLASMA ALT/SGPT: 25 (06/19/24 09:49) PLASMA AST/SGOT: 21 (06/19/24 09:49) PLASMA BILI T: 0.7 (06/19/24 09:49) PLASMA T PROTEIN:7.7 (06/19/24 09:49) PLASMA TSH: 4.701 (06/19/24 09:49) PLASMA Vitals: T: 97 F [36.1 C] (06/25/2024 14:05) P: 95 (06/25/2024 14:05) R: 16 (06/25/2024 09:05) BP: 139/93 (06/25/2024 14:05) W: 186 lb [84.37 kg] (06/25/2024 14:05) BMI: 26.7 Mental Status Exam: Kacy: 28yom who appears stated age, dressed in casual attire, brown hair and appiah, orients to interviewer with good eye contact, seated comfortably Level of Consciousness: A&O x4 Psychomotor Activity: normal Speech: regular volume, rate and tone Mood: not bad Affect: relatively euthymic Behavior: cooperative Thought Process: coherent, goal-directed Thought [...] of violence towards others is considered: low Napoleon made no comments during our conversation that were concerning and/or would suggest that the is at elevated imminent risk of harm to self or others ASSESSMENT: with PTSD, depressive DO unspecified, personality DO [...] titration yielding questions on benefit over time. Halbur augmentation, at one time viewed as supportive for SI and negative thought content, also in disuse and without indication to resume at present. Sertraline trial with tolerability and some benefit, which we will monitor in conjunction with buspirone trial. PLAN: -> PTSD, depressive DO unspecified: - offered supportive listening and encouraged to optimize both medication and counseling therapies - continue sertraline 50mg daily - trial buspirone titration to 10mg BID cc, as directed - has on hand: amitriptyline 20mg HS PRN for sleep (intent is disuse) -> monitor: mood, sleep, anxiety, SUDHEER -> [...] RECONCILIATION REPORT reviewed and discussed with patient. [place] prescription medications: Patient verifies that they are [...] list of medications. /deanna/ ABAD TENORIO CLINICAL RHINESTONE SETTER Signed: 06/26/2024 07:[address] [facility]
--- OUTSIDE RECORDS SUMMARY | 2024-06-25 05:30 | XMS_ITS | Encounter Summary ---
Author Name [facility] [place] [facility] Address [address] [place] [address] Care Team Providers Care Web Sizer Name Role Phone ROSARIO ESCALERA Primary Care Provider [facility] e Insurance Providers: All historical and current [...] section includes the information on record at [place] for the Encounter. Date/Time Encounter Type Encounter Description Reason Provider Source Jun 25, 2024 09:30 AM OFFICE O/P EST MOD 30 MIN PRIMARY CARE/MEDICINE ICD-10-CM D58.0 Hereditary spherocytosis DE ROSARIO MCKEON Encounter Template Text not used by [place] Assessments - Encounter Diagnoses This section includes the primary and secondary diagnoses documented for the Encounter. Date/Time Primary/Secondary Diagnosis Diagnosis Name Provider Source Jun 25, 2024 03:11 PM PRIMARY Hereditary spherocytosis ROSARIO ESCALERA CB Jun 25, 2024 03:11 PM SECONDARY Cervical disc disorder w radiculopathy, unsp cervical region DE ROSARIO MCKEON CB Jun 25, 2024 03:11 PM SECONDARY Other migraine, not intractable, without status migrainosus DE MIKE,ROSARIO L [facility] Jun 25, 2024 03:11 PM SECONDARY Post-traumatic stress disorder, chronic ROSARIO ESCALERA [facility] Plan of Treatment: Future Appointments (+ 6 months) and Future Tests (+/- 45 days) The Plan of Treatment section includes future care activities for the patient [facility] [place] [facility] This section includes future appointments and future orders which are active, pending or scheduled. Future Appointments This section includes appointments that were scheduled to occur 6 months from the date of the Encounter, up to a maximum of 20 appointments. The data comes from all [facility]. Appointment Date/Time Appointment Type Appointme nt Facility Name Jul 03, 2024 01:00 PM AMBULATORY - PSYCHIATRY CL [facility] Jul 11, 2024 09:00 AM [facility] Jul 11, 2024 01:00 PM AMBULATORY - PSYCHIATRY [facility] Jul 15, 2024 03:00 PM [facility]ORY [facility] Jul 17, 2024 01:00 PM [facility]ORY [facility] Jul 18, 2024 01:00 PM AMBULATORY - PSYCHIATRY CL [facility] Jul 18, 2024 02:00 PM AMBULATORY - PSYCHIATRY CL [facility] Jul 21, 2024 09:30 AM [facility]ULATORY - SURGERY [facility] Jul 25, 2024 02:30 PM AMBULATORY - NONE [facility] Aug 07, 2024 02:00 PM AMBULATORY - PSYCHIATRY [facility] Aug 11, 2024 01:30 PM [facility] Aug 13, 2024 03:30 PM AMBULATORY - PSYCHIATRY CL [facility] Aug 20, 2024 02:00 PM AMBULATORY - SURGERY [facility] Aug 22, 2024 03:00 PM AMBULATORY - PSYCHIATRY CL [facility] Aug 26, 2024 02:30 PM [facility]ONE [facility] Aug 26, 2024 03:00 PM [facility]ORY - NONE [facility] Aug 27, 2024 02:45 PM AMBULATORY - NONE [facility] Aug 27, 2024 03:00 PM AMBULATORY - PSYCHIATRY CL [facility] Aug 28, 2024 09:30 AM AMBULATORY - PSYCHIATRY CL [facility] Aug 29, 2024 01:30 PM AMBULATORY - PSYCHIATRY [facility] Active, Pending, and Scheduled Orders This section includes a listing of several types of active, pending, and scheduled orders, including clinic medications orders, diagnostic test orders, procedure orders and consult orders; where the start date of the order is 45 days before the date of the Encounter or 45 days after the date of theEncounter. The data comes from all [place] treatment facilities. Test Date/Time Test Type Test Details Facility Name May 21, 2024 12:00 AM Laboratory - Chemi stry Order URINALYSIS URINE SP ONCE [facility] Lab Results: +/- 30 days of the encounter This section includes the Chemistry and Hematology Lab Results on record with [place] for the patient. Radiology Reports and Pathology Reports are provided separately, in subsequent sections. Lab Results This section contains the Chemistry/Hematology Results that were resulted 30 days before or 30 daysafter the date of the Encounter. Date/Time Source Result Type Result - Unit Interpretation Reference Range Specimen Type Comment Jul 15, 2024 03:49 PM [facility] ALLERGY PANEL, ZONE 8 SERUM Specimen Type: SERUM No comment entered. Ordering Provider: SIDDHARTHA ESPINAL Report Released Date/Time: Jul 15, 2024 03:37 PM Reporting Lab: [address] [address] Performing Lab: [address] [address] DERMATO PTER <0.10 kU/L <0.34 DERMATOPHAGOIDES FARINEA <0.10 kU/L <0.3 4 CAT EPITHELIUM <0.10 kU/L <0.34 DOG EPITHELIUM <0.10 kU/L <0.34 CANDY GRASS <0.10 kU/L <0.34 BAHIA GRASS <0.10 kU/L <0.34 BERMUDA GRASS <0.10 kU/L <0.34 JACKIE GRASS ([place] BLUE) <0.10 kU/L <0 .34 COCKROACH, SCOTTISH IgE <0.10 kU/L <0.34 PENICILLIUM NOTATUM <0.10 [...] <0.10 kU/L <0.34 MUGWORT <0.10 kU/L <0.34 MAORI PLANTAIN <0.10 kU/L <0.34 Jul 15, 2024 03:49 PM [facility] IGE SERUM Specimen Type: SERUM No comment entered. Ordering Provider: SIDDHARTHA ESPINAL Report Released Date/Time: Jul 15, 2024 03:37 PM Reporting Lab: [address] [address] Performing Lab: [address] [address] IGE <21.0 [IU]/mL <99.9 Jun 19, 2024 09:49 AM [facility] MAGNESIUM PLASMA Specimen Type: PLASMA [...] Nov 20, 2023 01:30 PM Reporting Lab: [address] [address] Performing Lab: [address] [address] MAGNESIUM 2.2 mg/dL 1.6-2.6 Jun 19, 2024 09:49 AM [facility] LIPID PROFILE PLASMA Specimen Type: [...] Nov 20, 2023 01:30 PM Reporting Lab: [address] [address] Performing Lab: [address] [address] CHOLESTEROL 243 mg/dL H <199 LDL CHOLESTEROL 172 mg/dL H 0-99 HDL CHOLESTEROL 33 mg/dL L >40 TRIGLYCERIDE 284 mg/dL H <149 Jun 19, 2024 09:49 AM [facility] VITAMIN D (TOTAL) SERUM Specimen Type : SERUM No comment entered. Ordering Provider: ROSARIO ESCALERA Report Released Date/Time: Nov 20, 2023 01:30 PM Reporting Lab: [address] [address] Performing Lab: [address] [address] VITAMIN D (TOTAL) 9 ng/mL L 30-60 Jun 19, 2024 09:49 AM [facility] TSH PLASMA Specimen Type: PLASMA [...] Nov 20, 2023 01:30 PM Reporting Lab: [address] [address] Performing Lab: [place] [id number] TSH 4.701 u[IU]/mL 0.350-4.940 Jun 19, 2024 09:49 AM [facility] COMPREHENSIVE METABOLIC PANEL PLASMA S [...] Nov 20, 2023 01:30 PM Reporting Lab: [address] [address] Performing Lab: [place] [id number] ALBUMIN 4.8 g/dL 3.5-4.8 ALKALINE PHOSPHATASE 73 [...] 104.0 mL/min Jun 19, 2024 09:49 AM [facility] CBC BLOOD Specimen Type: BLOOD Comment: Manual Differential Performed. RBC and PLT morphology reviewed Slide reviewed for lymphocytosis Ordering Provider: ROSARIO ESCALERA Report Released Date/Time: Nov 20, 2023 01:30 PM Reporting Lab: [address] [address] Performing Lab: [address] [address] WBC COUNT 14.7 10*3/uL H 3.6-11.0 RBC [...] and tobacco- related health factors from the [place] facility where the Encounter took place. Current Smoking Status This section includes the most current smoking, or tobacco-related health factor, from the [place] facility where the Encounter took place. Date/Time Current Smoking Status Comment Facil ity May 18, 2023 02:00 PM [facility]TOBACCO QUIT 1 TO < 5 YRS [facility] Tobacco Use History This section includes a history of the smoking, or tobacco-related health factors, that were collected on or before the date of the Encounter. The data comes from the [place] facility where the Encounter took place. Date/Time Smoking Status/Tobacco Use Comment F acility May 18, 2023 02:00 PM [facility]TOBACCO QUIT 1 TO < 5 YRS [facility] Advance Directives: All historical and current Section Date Range: From patient's date of to the date document was created. This section includes ALL of a patient's completed or amended [place] Advance and Rescinded Directives. The entries below indicate that a directive exists for the patient, but an actual copy is not included with this document. The data comes from all [place] facilities. Date Advance Directives Provider Source October 22, 2023 ADVANCE DIRECTIVE DISCUSSION SABINA NAIR [facility] Radiology Reports: +/- 30 days [...] the Encounter. The data comes from all [place] treatment facilities. Date/Time Radiology Report Provider Source Jul 25, 2024 02:35 PM P/D CT TEMPORAL NICKIE NE W/O CONTRAST : MARION ZHENG [id number] -1995 M Exm Date: JUL 25, 2024@14:35 Req Phys: SIDDHARTHA ESPINAL Loc: [facility] SOFTWARE TESTING SPECIALIST 1 (Req'g Loc) Img Loc: [place] Service: [place] [address] (Case [id number] COMPLETE)[facility] FESS CT (CT Detailed) CPT:32715 Reason for Study: conductive hearing loss Clinical History: [address] [place] [id number] Report Status: Verified Date Reported: JUL 28, 2024 Date Verified: JUL 28, 2024 Director Distribution E-Sig:/ES/KULDIP MCELROY Report: CT [facility] [place] [...] Code: Primary Interpreting Staff: KULDIP MCELROY, RADIOLOGIST (Director Distribution) /KULDIP WHITAKER CB Jul 25, 2024 02:[address] TEMPORAL BONE W /O CONTRAST: MARCEMARION ALEX [id number] -1995 M Exm Date: JUL 25, 2024@14:34 Req Phys: SIDDHARTHA ESPINAL Pat Loc: [facility] SOFTWARE TEST[facility] SPECIAL[facility] 1 (Req'g Loc) Img Loc: [place] Service: [place] [address] (Case [id number] COMPLETE)CT TEMPORAL BONE W/O CONTRAST (CT Detailed) CPT:66291 Reason for Study: chronic congestion, right nasal obstruction Clinical History: Report Status: Verified Date Reported: JUL 28, 2024 Date Verified: JUL 28, 2024 Director Distribution E-Sig:/ES/KULDIP MCELROY Report: CT TEMPORAL BONE , [...] Code: Primary Interpreting Staff: KULDIP MCELROY, RADIOLOGIST (Director Distribution) /KULDIP WHITAKER [facility] Pathology Reports: +/- 30 [...] the Encounter. The data comes from all [place] treatment facilities. Date/Time Pathology Report Provider Source Jul 23, 2024 02:14 PM LR SURGICAL PATHOL OGY REPORT: LOCAL TITLE: LR SURGICAL PATHOLOGY REPORT STANDARD TITLE: PATHOLOGY REPORT DATE OF NOTE: JUL 23, 2024@14:14:05 ENTRY DATE: JUL 23, 2024@14:14:05 AUTHOR: PAULA HAND: URGENCY: STATUS: COMPLETED $APHDR - - - [...] OF VAS DEFERENS, COMPLETELY TRANSECTED LUMEN. CPT: 87212 x 2 GROSS DESCRIPTION A. Specimen is [...] Performing Laboratory: Surgical Pathology Report Performed By: [facility] [CLIA# [id number]] [address] [place] [address] $FTR - - - - - - [...] - - MARION ZHENG STANDARD FORM 515 ID:[id number] SEX:M :1995 AGE: 28 LOC:[facility] PCP: Rosario Escalera DO /deanna/ PAULA HAND PATHOLOGIST Signed: 07/23/2024 14:14 PAULA HAND [facility] Encounter Notes: All associated encounter notes This section contains the clinical notes associated to the Encounter. Date/Time Encounter Note(s) Provider Source Jun 25, 2024 09:44 AM INTERNAL MEDICINE OUTPATIENT NOTE: LOCAL TITLE: PRIMARY CARE OUTPATIENT NOTE (T) STANDARD TITLE: INTERNAL MEDICINE OUTPATIENT NOTE DATE OF NOTE: JUN 25, 2024@09:44 ENTRY DATE: JUN 25, 2024@09:44:20 AUTHOR: ROSARIO ESCALERA EXP COSIGNER: URGENCY: STATUS: COMPLETED In-person Note 28yo Reason for Visit: HERE FOR SCHEDULED APPOINTMENT TO GO OVER HIS LABS AND TO DISCUSS HIS HX OF MIGRAINE- HLD- CERVICAL DISC DX - PTSD AND HEREDITARY SPHEROCYTOSIS ( STATUS POST SPLEENECTOMY)- WILL BE SEEING SPINE CLINIC ABOUT HIS NECK TODAY - AND IS FOLLOWING WITH NEURO FOR HIS HEADACHES REVIEW OF SYSTEMS: GI: DENIES ABDOMINAL PAIN,GERD, CONSTIPATION,DIARRHEA OR RECTAL BLEEDING - : DENIES DYSURIA OR HEMATURIA- CARDIAC; DENIES CHEST PAIN,PALPATATIONS ,ORTHOPNEA OR PEDAL EDEMA RESPIRATORY:DENIES SOB- CHRONIC COUGH -OR WHEEZING - HAVING PROBLEMS BREATHING THROUGH HIS [place]SEA ND EARS GET CLOGGED NEURO: DAILY HEADACHES ( SEEING NEURO) - CERVICAL READICULOPATHY - HEARING LOSS HABITS; TOBACCO;VAPES NICOTINE ETOH; NONE OTHER SUBSTANCES NEG PATIENT ALLERGIES DETAILED ALLERGIES/ADVERSE REACTIONS Type: DRUG Date/Time Reactant Severity Reaction 02/15/2023 16:29 HYDROMORPHONE URTICARIA 02/15/2023 16:29 OXYCODONE NAUSEA AND VOMITING 02/15/2023 16:28 MORPHINE ANAPHYLAXIS AMRS - MEDS (REC SUCCINCT) Active and Recently Inpatient, Outpatient and Clinic Medications (including Supplies): Active Outpatient Medications Status ======= 1) AMITRIPTYLINE HCL 10MG TAB TAKE 1 [...] TABLET BY MOUTH ACTIVE (S) EVERY DAY Pending Outpatient Medications Status ======= 1) BUSPIRONE HCL 10MG TAB TAKE ONE TABLET BY MOUTH AT PENDING BEDTIME FOR 3 DAYS, THEN TAKE ONE TABLET TWICE A DAY (WITH FOOD) Inactive Outpatient Medications Status ======= 1) FLUTICASONE PROP 50MCG 120D NASAL INHL USE 2 SPRAYS IN EACH NOSTRIL EVERY DAY NASAL CONGESTION 7 Total Medications PHYSICAL EXAM: Vital Signs: T: 96.9 F [36.1 C] (06/25/2024 09:05) P: 69 (06/25/2024 09:05) R: 16 (06/25/2024 09:05) BP: 136/77 (06/25/2024 09:05) Pain: 3 (06/25/2024 09:05) Height: 70 in [177.8 cm] (06/25/2024 09:05) Weight: 177 lb [80.29 kg] (06/25/2024 09:05) Pulse Ox: 97% (06/25/2024 09:05) GENERAL: ALERT- ORIENTED X 4- NO DISTRESS LABS: REVIEWED WITH THE PATIENT: VIT D WAS 9- WBC 14.7 - CHOL 243 WITH LDL OF 172 - TG 284 - REST OK HEAD, EARS ,EYES,NOSE AND THROAT- NORMOCEPHALIC ,ROSE,EOMI, ENT NEG NECK: SUPPLE WITHOUT MASSES OR BRUITS CHEST/LUNG: CHEST SYMETRICAL- LUNGS CLEAR CARDIOVASCULAR : HEART RRR WITHOUT MURMUR GASTROINTESTINAL: ABDOMEN SOFT WITHOUT MASSES OR BRUITS EXTREMITIES; NO EDEMA NEURO: CN II-XII GROSSLY INTACT - NO TREMORS OR ABNORMAL MOVEMENTS ASSESSMENT/PLAN: MIGRAINES /NEUROLOGY CERVICAL DISC DX / SEEING SPINE CLINIC TODAY NASAL CONGESTION / REFER TO ENT HEREDITARY SPHEROCYTOSIS PTSD HEALTH MAINTENANCE/CLINICAL REMINDERS: MEDICATION RECONCILIATION Medication Reconciliation report reviewed and discussed with patient/caregiver. VA prescription medications, non-VA prescription medications, OTC and herbal medications reviewed: Patient/caregiver verifies that the list is complete and accurate and voices understanding. Patient/caregiver in possession of printed medication list. FOLLOW-UP: RTC IN 6 MONTHS WITH LABS - CONTUE PRESENT CARE I am the Attending Physician. TOTAL TIME SPENT: Spent 30 minutes in care of this patient today including review of records, exam, and placing orders. /deanna/ ROSARIO ESCALERA PHYSICIAN Signed: 06/25/2024 15:11 ROSARIO ESCALERA [facility]
--- OUTSIDE RECORDS SUMMARY | 2024-06-25 10:00 | XMS_ITS | Encounter Summary ---
Author Name [facility] [place] [facility] [place] Address [address] [place] [address] Care Team Providers Care Caustic Mixer Name Role Phone ROSARIO ESCALERA Primary [...] Description Reason Provider Source Jun 25, 2024 02:00 PM OFFICE O/P EST MOD 30 MIN PAIN CLINIC ICD-10-CM M54.12 Radiculopathy, cervical region AVNI BARRON Sonya Encounter Template Text not used by [place] Assessments - Encounter Diagnoses This section includes the primary and secondary diagnoses documented for the Encounter. Date/Time Primary/Secondary Diagnosis Diagnosis Name Provider Source Jun 25, 2024 04:35 PM PRIMARY Radiculopathy, cervical region AVNI BARRON [facility] Jun 25, 2024 04:35 PM SECONDARY Other cervical disc displacement, unsp cervical region AVNI BARRON [facility] Jun 25, 2024 04:35 PM SECONDARY Other spondylosis, cervical region AVNI BARRON [facility] Plan of Treatment: Future Appointments (+ 6 months) and Future Tests (+/- 45 days) The Plan of Treatment section includes future care activities for the patient [facility] [place] [facility] This section includes future appointments and future orders which are active, pending or scheduled. Future Appointments This section includes appointments that were scheduled to occur 6 months from the date of the Encounter, up to a maximum of 20 appointments. The data comes from all [facility] facilities. Appointment Date/Time Appointment Type Appointme nt Facility Name Jul 03, 2024 01:00 PM AMBULATORY - PSYCHIATRY CL [facility] Jul 11, 2024 09:00 AM AMBULATORY - SURGERY [facility] Jul 11, 2024 01:00 PM AMBULATORY - PSYCHIATRY [facility] Jul 15, 2024 03:00 PM AMBULATORY - SURGERY [facility] Jul 17, 2024 01:00 PM AMBULATORY - SURGERY [facility] Jul 18, 2024 01:00 PM AMBULATORY - PSYCHIATRY CL [facility] Jul 18, 2024 02:00 PM AMBULATORY - PSYCHIATRY CL [facility] Jul 21, 2024 09:30 AM AMBULATORY - SURGERY [facility] Jul 25, 2024 02:30 PM AMBULATORY - NONE [facility] Aug 07, 2024 02:00 PM AMBULATORY - PSYCHIATRY [facility] Aug 11, 2024 01:30 PM AMBULATORY - SURGERY [facility] Aug 13, 2024 03:30 PM AMBULATORY - PSYCHIATRY CL [facility] Aug 20, 2024 02:00 PM AMBULATORY - SURGERY [facility] Aug 22, 2024 03:00 PM AMBULATORY - PSYCHIATRY CL [facility] Aug 26, 2024 02:30 PM [facility]ORY - NONE [facility] Aug 26, 2024 03:00 PM AMBUL[facility]ORY - NONE [facility] Aug 27, 2024 02:45 PM AMBULATORY - NONE [facility] Aug 27, 2024 03:00 PM AMBULATORY - PSYCHIATRY CL [facility] Aug 28, 2024 09:30 AM AMBULATORY - PSYCHIATRY CL [facility] Aug 29, 2024 01:30 PM AMBULATORY - PSYCHIATRY [facility] Active, Pending, and Scheduled Orders This section includes a listing of several types of active, pending, and scheduled orders, including clinic medications orders, diagnostic test orders, procedure orders and consult orders; where the start date of the order is 45 days before the date of the Encounter or 45 days after the date of theEncounter. The data comes from all [place] treatment facilities. Test Date/Time Test Type Test Details Facility Name May 21, 2024 12:00 AM Laboratory - Chemi stry Order URINALYSIS URINE SP ONCE [facility] Lab Results: +/- 30 days [...] Type Comment Jul 15, 2024 03:49 PM [facility] ALLERGY PANEL, ZONE 8 SERUM Specimen Type: SERUM No comment entered. Ordering Provider: SIDDHARTHA ESPINAL Report Released Date/Time: Jul 15, 2024 03:37 PM Reporting Lab: [address] [address] Performing Lab: [address] [address] DERMATO PTER <0.10 kU/L <0.34 DERMATOPHAGOIDES FARINEA <0.10 kU/L <0.3 4 CAT EPITHELIUM <0.10 kU/L <0.34 DOG EPITHELIUM <0.10 kU/L <0.34 CANDY GRASS <0.10 kU/L <0.34 BAHIA GRASS <0.10 kU/L <0.34 BERMUDA GRASS <0.10 kU/L <0.34 JACKIE GRASS ([place] BLUE) <0.10 kU/L <0 .34 COCKROACH, MAORI IgE <0.10 kU/L <0.34 PENICILLIUM NOTATUM <0.10 [...] <0.10 kU/L <0.34 MUGWORT <0.10 kU/L <0.34 JAPANESE PLANTAIN <0.10 kU/L <0.34 Jul 15, 2024 03:49 PM [facility] IGE SERUM Specimen Type: SERUM No comment entered. Ordering Provider: SIDDHARTHA ESPINAL Report Released Date/Time: Jul 15, 2024 03:37 PM Reporting Lab: [address] [address] Performing Lab: [address] [address] IGE <21.0 [IU]/mL <99.9 Jun 19, 2024 09:49 AM [facility] COMPREHENSIVE METABOLIC PANEL PLASMA S [...] 20, 2023 01:30 PM Reporting Lab: [address] [address] Performing Lab: [address] [address] ALBUMIN 4.8 g/dL 3.5-4.8 ALKALINE PHOSPHATASE 73 [...] 104.0 mL/min Jun 19, 2024 09:49 AM [facility] LIPID PROFILE PLASMA Specimen Type: [...] 20, 2023 01:30 PM Reporting Lab: [address] [address] Performing Lab: [address] [address] CHOLESTEROL 243 mg/dL H <199 LDL CHOLESTEROL 172 mg/dL H 0-99 HDL CHOLESTEROL 33 mg/dL L >40 TRIGLYCERIDE 284 mg/dL H <149 Jun 19, 2024 09:49 AM [facility] MAGNESIUM PLASMA Specimen Type: PLASMA [...] 20, 2023 01:30 PM Reporting Lab: [address] [address] Performing Lab: [address] [address] MAGNESIUM 2.2 mg/dL 1.6-2.6 Jun 19, 2024 09:49 AM [facility] VITAMIN D (TOTAL) SERUM Specimen Type : SERUM No comment entered. Ordering Provider: ROSARIO ESCALERA Report Released Date/Time: Nov 20, 2023 01:30 PM Reporting Lab: [address] [address] Performing Lab: [address] [address] VITAMIN D (TOTAL) 9 ng/mL L 30-60 Jun 19, 2024 09:49 AM [facility] TSH PLASMA Specimen Type: PLASMA [...] 20, 2023 01:30 PM Reporting Lab: [address] [address] Performing Lab: [address] [address] TSH 4.701 u[IU]/mL 0.350-4.940 Jun 19, 2024 09:49 AM [facility] CBC BLOOD Specimen Type: BLOOD Comment: Manual Differential Performed. RBC and PLT morphology reviewed Slide reviewed for lymphocytosis Ordering Provider: ROSARIO ESCALERA Report Released Date/Time: Nov 20, 2023 01:30 PM Reporting Lab: [address] [address] Performing Lab: [address] [address] WBC COUNT 14.7 10*3/uL H 3.6-11.0 RBC [...] ABS BASOPHIL COUNT (MANUAL) 0.0 10*3/uL 0.0-0.3 Vital Signs: All taken on the encounter date This section contains inpatient and outpatient Vital Signs collected on the date of the Encounter. Date/Time Temperature Pulse Blood Pressure Respiratory Rate SP02 Pain Height Weight Body Mass Index Source Jun 25, 2024 02:05 PM 97 95 139/93 97 0 186 27 [facility] Jun 25, 2024 01:42 PM 97.6 83 125/74 97 2 173.8 25 [facility] Jun 25, 2024 09:05 AM 96.9 69 136/77 16 97 3 70 177 25 [facility] Social History: Smoking Status (Most [...] AM VA-TOBACCO USE EVERY DAY CIGARET MANNY [facility] Tobacco Use History This section includes a history of the smoking, or tobacco-related health factors, that were collected on or before the date of the Encounter. The data comes from the [place] facility where the Encounter took place. Date/Time Smoking Status/Tobacco Use Comment F acility Jun 06, 2024 11:30 AM VA-TOBACCO USE ADVICE [facility] Jun 06, 2024 11:30 AM VA-TOBACCO USE PRICE ANALYST NO [facility] Jun 06, 2024 11:30 AM VA-TOBACCO USE EVERY DAY CIGARET MANNY [facility] Jun 06, 2024 11:30 AM VA-TOBACCO USE EVERY DAY ENDS [facility] Jun 06, 2024 11:30 AM VA-TOBACCO USE EVERY DAY OTHER T YPE [facility] Jun 06, 2024 11:30 AM VA-TOBACCO USE MED NO [facility] Jun 19, 2023 10:00 AM TOBACCO FORMER USER MORE 12 LEONEL [facility] Advance Directives: All historical and current [...] ADVANCE DIRECTIVE DISCUSSION SABINA NAIR [facility] Radiology Reports: +/- 30 days of [...] NICKIE NE W/O CONTRAST : MARION ZHENG [id number] -1995 M Exm Date: JUL 25, 2024@14:35 Req Phys: SIDDHARTHA ESPINAL Pat Loc: [facility] 1 (Req'g Loc) Img Loc: [facility] [place] Service: [place] [address] (Case [id number] COMPLETE)[facility] CT (CT Detailed) CPT:88783 Reason for Study: conductive hearing loss Clinical History: [address] [id number] Report Status: Verified Date Reported: JUL 28, 2024 Date Verified: JUL 28, 2024 Jig Inspector E-Sig:/ES/KULDIP MCELROY Report: CT [facility] [...] Code: Primary Interpreting Staff: KULDIP MCELROY, RADIOLOGIST (Jig Inspector) /KULDIP WHITAKER [facility] Jul 25, 2024 02:[address] TEMPORAL BONE W /O CONTRAST: MARION ZHENG [id number] -1995 M Exm Date: JUL 25, 2024@14:34 Req Phys: SIDDHARTHA ESPINAL Pat Loc: [facility] (Req'g Loc) Img Loc: [place] Service: [place] [address] (Case [id number] COMPLETE)CT TEMPORAL BONE W/O CONTRAST (CT Detailed) CPT:10040 Reason for Study: chronic congestion, right nasal obstruction Clinical History: Report Status: Verified Date Reported: JUL 28, 2024 Date Verified: JUL 28, 2024 Jig Inspector E-Sig:/ES/KULDIP MCELROY Report: CT TEMPORAL BONE , [...] Code: Primary Interpreting Staff: KULDIP MCELROY, RADIOLOGIST (Jig Inspector) /KULDIP WHITAKER [facility] Pathology Reports: +/- 30 days of the [...] comes from all [place] treatment facilities. Date/Time Pathology Report Provider Source [...] OF VAS DEFERENS, COMPLETELY TRANSECTED LUMEN. CPT: 97068 x 2 GROSS DESCRIPTION A. Specimen is [...] Performing Laboratory: Surgical Pathology Report Performed By: [facility] [CLIA# [id number]] [address] [place] [address] $FTR - - - - - - [...] - - MARION ZHENG STANDARD FORM 515 ID:[id number] SEX:M :1995 AGE: 28 LOC:[facility] PCP: DO chirag Lara PATHOLOGIST Signed: 07/23/2024 14:14 PAULA HAND [facility] Encounter Notes: All associated encounter notes This section contains the clinical notes associated to the Encounter. Date/Time Encounter Note(s) Provider Source Jun 25, 2024 04:28 PM PAIN MEDICINE NOTE : LOCAL TITLE: PAIN MANAGEMENT CHRONIC PAIN FOLLOW-UP NOTE (T) STANDARD TITLE: PAIN MEDICINE NOTE DATE OF NOTE: JUN 25, 2024@16:28 ENTRY DATE: JUN 25, 2024@16:28:38 AUTHOR: AVNI BARRON EXP COSIGNER: URGENCY: STATUS: COMPLETED MEDICATION RECONCILIATION MEDICATION RECONCILIATION REPORT reviewed and discussed with patient. [place] prescription medications: Patient verifies that they are in receipt of a complete and accurate list of medications. Prescription medications from another source: Patient verifies that they are in receipt of a complete and accurate list of medications. Over the counter medications, vitamins, herbals, and nutritional supplements: Patient verifies that they are in receipt of a complete and accurate list of medications. TOTAL TIME SPENT: Spent 30 minutes in care of this patient today including review of records, exam, and placing orders. Whole Health approaches used during this visit: Personal health planning Chief complaint: Neck pain Suicide screen: Today HPI: This is a 28-year-old male seen for follow-up for a chief complaint of right-sided neck pain. He will still get radiation down the right arm into the third fourth and fifth digits of the right hand. He will get numbness and tingling in the same distribution. At times that hand will feel weak. He denies any left-sided symptoms. He has been doing physical therapy for his lumbar pain. He reports it has actually been pretty helpful. He denies radiation down the legs nor does he have numbness, tingling, weakness, or loss of bladder or bowel control. Of the 2 issues the neck is much more bothersome. He got the imaging we had ordered and is here to go over the results. REVIEW OF SYSTEMS: 12 systems ROS reviewed and negative except for those mentioned above Imaging/tests: Cervical x-ray/MRI shows some straightening along with a right-sided herniation at C6-7 with slight impression on the spinal cord. Lumbar x- ray/MRI essentially normal Past medical history: Reviewed in EMR Medications: Reviewed in EMR Medication reconciliation performed Allergies: Reviewed in EMR Family history: Reviewed in EMR Observation: Vitals: Stable General: Pleasant white male Head: Normocephalic Neck: Right-sided cervical paraspinal tenderness CV: No signs of poor perfusion. No peripheral edema Respiratory: Breathing is unlabored. No wheezing present Abdominal: Nondistended Back: No lumbar tenderness Musculoskeletal: Strength 5 out of 5. Muscle tone is normal. Neurologic: Sensation intact. Reflexes normal and symmetric. Jo Ann sign negative bilaterally. Psych: Affect is appropriate. Alert and oriented Assessment: 28-year-old male with right-sided neck and arm pain due to cervical radiculopathy, cervical disc displacement, and cervical spondylosis. Plan: We discussed options. I offered him a trial of cervical facet injections since he only had short-term relief from a previous epidural injection. He would like to look into surgical intervention for this. I advised him that I thought it more likely than not that surgery would not be recommended but I will honor the request. I advised him that if surgery was not recommended and he would like to pursue the injection, that he could call and we could set it up. We discussed the potential risks and benefits of this plan and he was in agreement with it. Follow-up as needed. We discussed with the patient potential secondary side effects of medication prescribed and urged the patient to read all FDA approved materials that the pharmacy provides with the prescription. Above treatment plan was discussed in detail with the patient, who verbalizes understanding. Was given the clinic information and encouraged to call to report any change in symptoms. TOTAL TIME SPENT: Spent 30 minutes in care of this patient today, including review of records, obtaining H&P, discussing imaging findings, formulation and discussion of treatment plan and requesting consults/ orders. This note was generated using [employer] dictation and may contain errors MEDICATION RECONCILIATION [...] of medications. /deanna/ AVNI BARRON PHYSICIAN Signed: 06/25/2024 16:35 AVNI BARRON [facility] Jun 25, 2024 01:44 PM NURSING NOTE: LOCAL TITLE: NURSING SPECIALTY INTAKE NOTE (T) STANDARD TITLE: NURSING NOTE DATE OF NOTE: JUN 25, 2024@13:44 ENTRY DATE: JUN 25, 2024@13:44:09 AUTHOR: TABBY KAUR COSIGNER: URGENCY: STATUS: COMPLETED Suicide Screen: C-SSRS Screening [place] Suicide Severity Rating Scale (C-SSRS) screener 1. Over the past month, have you wished you were or wished you could go to sleep and not wake up? Yes 2. Over the past month, have you [...] this within the past 3 months? No /deanna/ TABBY KAUR LICENSED PRACTICAL NURSE Signed: 06/25/2024 13:45 TABBY KAUR [facility]
--- OUTSIDE RECORDS SUMMARY | 2024-07-03 09:00 | XMS_ITS | Encounter Summary ---
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 Date/Time Primary/Secondary Diagnosis Diagnosis Name Provider Source Jul 03, 2024 02:25 PM PRIMARY Post-traumatic stress disorder, chronic [facility] Jul 03, 2024 02:25 PM SECONDARY Major depressive disorder, single episode, unspecified [facility] Jul 03, 2024 02:25 PM SECONDARY Personality disorder, unspecified [facility] Jul 03, 2024 02:25 PM SECONDARY Primary insomnia PEDRO LUISDONAVAN DONCIA Monster [facility] Plan of Treatment: Future Appointments (+ 6 months) and Future Tests (+/- 45 days) The Plan of Treatment section includes future care activities for the [facility] This section includes future appointments and future orders which are active, pending or scheduled. Future Appointments This section includes appointments that were scheduled to occur 6 months from the date of the Encounter, up to a maximum of 20 appointments. The data comes from all [place] treatment [facility]. Appointment Date/Time Appointment Type Appointme nt Facility Name Jul 11, 2024 09:00 AM AMBULATORY - SURGERY [facility] Jul 11, 2024 01:00 PM AMBULATORY - PSYCHIATRY [facility] Jul 15, 2024 03:00 PM AMBULATORY - SURGERY [facility] Jul 17, 2024 01:00 PM AMBULATORY - SURGERY [facility] Jul 18, 2024 01:00 PM AMBULATORY - PSYCHIATRY [facility] Jul 18, 2024 02:00 PM AMBULATORY - PSYCHIATRY [facility] Jul 21, 2024 09:30 AM AMBULATORY - SURGERY [facility] Jul 25, 2024 02:30 PM AMBULATORY - NONE [facility] Aug 07, 2024 02:00 PM AMBULATORY - PSYCHIATRY [facility] Aug 11, 2024 01:30 PM AMBULATORY - SURGERY [facility] Aug 13, 2024 03:30 PM AMBULATORY - PSYCHIATRY [facility] Aug 20, 2024 02:00 PM AMBULATORY - SURGERY [facility] Aug 22, 2024 03:00 PM AMBULATORY - PSYCHIATRY [facility] Aug 26, 2024 02:30 PM AMBULATORY - NONE [facility] Aug 26, 2024 03:00 PM AMBULATORY - NONE [facility] Aug 27, 2024 02:45 PM AMBULATORY - NONE [facility] Aug 27, 2024 03:00 PM AMBULATORY - PSYCHIATRY [facility] Aug 28, 2024 09:30 AM AMBULATORY - PSYCHIATRY [facility] Aug 29, 2024 01:30 PM AMBULATORY - PSYCHIATRY [facility] Sep 03, 2024 01:00 PM AMBULATORY - PSYCHIATRY [facility] Active, Pending, and Scheduled Orders This section includes a listing of several types of active, pending, and scheduled orders, including clinic medications orders, diagnostic test orders, procedure orders and consult orders; where the start date of the order is 45 days before the date of the Encounter or 45 days after the date of theEncounter. The data comes from all [place] treatment facilities. Test Date/Time Test Type Test Details Facility Name May 21, 2024 12:00 AM Laboratory - Chemi stry Order URINALYSIS URINE SP ONCE [facility] Lab Results: +/- 30 days [...] Type Comment Jul 15, 2024 03:49 PM [facility] ALLERGY PANEL, ZONE 8 SERUM Specimen Type: SERUM No comment entered. Ordering Provider: SIDDHARTHA ESPINAL Report Released Date/Time: Jul 15, 2024 03:37 PM Reporting Lab: [address] [address] Performing Lab: [address] [address] DERMATO PTER <0.10 kU/L <0.34 DERMATOPHAGOIDES FARINEA <0.10 kU/L <0.3 4 CAT EPITHELIUM <0.10 kU/L <0.34 DOG EPITHELIUM <0.10 kU/L <0.34 CANDY GRASS <0.10 kU/L <0.34 BAHIA GRASS <0.10 kU/L <0.34 BERMUDA GRASS <0.10 kU/L <0.34 NOVEMBER GRASS ([place] BLUE) <0.10 kU/L <0 .34 COCKROACH, ECUADOREAN IgE <0.10 kU/L <0.34 PENICILLIUM NOTATUM <0.10 [...] <0.10 kU/L <0.34 MUGWORT <0.10 kU/L <0.34 ISRAELI PLANTAIN <0.10 kU/L <0.34 Jul 15, 2024 03:49 PM [facility] IGE SERUM Specimen Type: SERUM No comment entered. Ordering Provider: SIDDHARTHA ESPINAL Report Released Date/Time: Jul 15, 2024 03:37 PM Reporting Lab: [address] [address] Performing Lab: [address] [address] IGE <21.0 [IU]/mL <99.9 Jun 19, 2024 09:49 AM [facility] LIPID PROFILE PLASMA Specimen Type: [...] Nov 20, 2023 01:30 PM Reporting Lab: [address] [address] Performing Lab: [address] [address] CHOLESTEROL 243 mg/dL H <199 LDL CHOLESTEROL 172 mg/dL H 0-99 HDL CHOLESTEROL 33 mg/dL L >40 TRIGLYCERIDE 284 mg/dL H <149 Jun 19, 2024 09:49 AM [facility] MAGNESIUM PLASMA Specimen Type: PLASMA [...] Nov 20, 2023 01:30 PM Reporting Lab: [address] [address] Performing Lab: [address] [address] MAGNESIUM 2.2 mg/dL 1.6-2.6 Jun 19, 2024 09:49 AM [facility] VITAMIN D (TOTAL) SERUM Specimen Type : SERUM No comment entered. Ordering Provider: ROSARIO ESCALERA Report Released Date/Time: Nov 20, 2023 01:30 PM Reporting Lab: [address] [address] Performing Lab: [place] [phone] VITAMIN D (TOTAL) 9 ng/mL L 30-60 Jun 19, 2024 09:49 AM [facility] TSH PLASMA Specimen Type: PLASMA [...] Nov 20, 2023 01:30 PM Reporting Lab: [address] [address] Performing Lab: [place] [phone] TSH 4.701 u[IU]/mL 0.350-4.940 Jun 19, 2024 09:49 AM [facility] COMPREHENSIVE METABOLIC PANEL PLASMA S [...] Nov 20, 2023 01:30 PM Reporting Lab: [address] [address] Performing Lab: [address] [address] ALBUMIN 4.8 g/dL 3.5-4.8 ALKALINE PHOSPHATASE 73 [...] 104.0 mL/min Jun 19, 2024 09:49 AM [facility] CBC BLOOD Specimen Type: BLOOD Comment: Manual Differential Performed. RBC and PLT morphology reviewed Slide reviewed for lymphocytosis Ordering Provider: ROSARIO ESCALERA Report Released Date/Time: Nov 20, 2023 01:30 PM Reporting Lab: [address] [address] Performing Lab: [address] [address] WBC COUNT 14.7 10*3/uL H 3.6-11.0 RBC [...] Facil ity May 18, 2023 02:00 PM [place]-TOBACCO FORMER USER [facility] Tobacco Use History This section includes a history of the smoking, or tobacco-related health factors, that were collected on or before the date of the Encounter. The data comes from the [place] facility where the Encounter took place. Date/Time Smoking Status/Tobacco Use Comment F acility May 18, 2023 02:00 PM NH-TOBACCO QUIT 1 TO < 5 YRS [facility] Advance Directives: All historical and [...] 2023 ADVANCE DIRECTIVE DISCUSSION SABINA NAIR [facility] Radiology Reports: +/- 30 days of [...] NICKIE NE W/O CONTRAST : MARION ZHENG [id number] -1995 M Exm Date: JUL 25, 2024@14:35 Req Phys: SIDDHARTHA ESPINAL Loc: [facility] PRICING COORDINATOR 1 (Req'g Loc) Img Loc: [facility] [place] Service: [place] [address] (Case [id number] COMPLETE)[facility] (CT Detailed) CPT:65693 Reason for Study: conductive hearing loss Clinical History: [address], [place] [address] Report Status: Verified Date Reported: JUL 28, 2024 Date Verified: JUL 28, 2024 Stacker Straightener E-Sig:/ES/KULDIP MCELROY Report: CT OF [place] [facility] [...] Code: Primary Interpreting Staff: KULDIP MCELROY, RADIOLOGIST (Stacker Straightener) /KULDIP WHITAKER CB Jul 25, 2024 02:[address] TEMPORAL BONE W /O CONTRAST: BRITTNEYMARION Haji [id number] -1995 M Exm Date: JUL 25, 2024@14:34 Req Phys: SIDDHARTHA ESPINAL Loc: [facility] PRICING COORDINATOR 1 (Req'g Loc) Img Loc: [facility] CT Service: [place] [address] (Case [id number] COMPLETE)CT TEMPORAL BONE W/O CONTRAST (CT Detailed) CPT:33850 Reason for Study: chronic congestion, right nasal obstruction Clinical History: Report Status: Verified Date Reported: JUL 28, 2024 Date Verified: JUL 28, 2024 Stacker Straightener E-Sig:/ES/KULDIP MCELROY Report: CT TEMPORAL BONE , [...] Code: Primary Interpreting Staff: KULDIP MCELROY, RADIOLOGIST (Stacker Straightener) /KULDIP WHITAKER [facility] Pathology Reports: +/- 30 [...] comes from all [place] treatment facilities. Date/Time Pathology Report Provider Source Jul 23, 2024 02:14 PM LR SURGICAL PATHOL OGY REPORT: LOCAL TITLE: LR SURGICAL PATHOLOGY REPORT STANDARD TITLE: PATHOLOGY REPORT DATE OF NOTE: JUL 23, 2024@14:14:05 ENTRY DATE: JUL 23, 2024@14:14:05 AUTHOR: PAULA HAND EXP FORDER: URGENCY: STATUS: COMPLETED $APHDR - - - [...] OF VAS DEFERENS, COMPLETELY TRANSECTED LUMEN. CPT: 98445 x 2 GROSS DESCRIPTION A. Specimen is [...] Performing Laboratory: Surgical Pathology Report Performed By: [facility] [CLIA# [id number]] [address] [place] [address] $FTR - - - - - - [...] - - MARION ZHENG STANDARD FORM 515 ID:[id number] SEX:M :1995 AGE: 28 LOC:[facility] PCP: Rosario Escalera DO /deanna/ PAULA HAND PATHOLOGIST Signed: 07/23/2024 14:14 PAULA HAND [facility] Encounter Notes: All associated encounter notes This section contains the clinical notes associated to the Encounter. Date/Time Encounter Note(s) Provider Source Jul 03, 2024 08:45 AM MENTAL HEALTH NOTE : LOCAL TITLE: EVIDENCE BASED PSYCHOTHERAPY NOTE (T) STANDARD TITLE: MENTAL HEALTH NOTE DATE OF NOTE: JUL 03, 2024@08:45 ENTRY DATE: JUL 03, 2024@08:45:18 AUTHOR: ADDIS CLOUD COSIGNER: URGENCY: STATUS: COMPLETED DBT Early Termination Session Time and Duration: 1:00 pm - 1:45 pm 45 minutes assessment: 02.09.2023 DIAGNOSIS: PTSD (SC); Insomnia; Depression; Personality D/O, Cluster B traits PATIENT'S STRENGTHS/ABILITIES: Self-Identified: moved to [place] [facility] Provider Identified: able to tolerate grief support groups, [facility] stressors w/o SI Active partnership in [employer] PATIENT'S 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 Goal: I want to learn how to approach my life in a more even and flexible way. Goal: Increase Tatamy's ability to make sense of traumatic experiences, and feel the natural emotions associated with them. PROGRESS TOWARDS GOAL: No-Minimal progress clinical reminders due: None TYPES OF THERAPY: Individual METHOD OF THERAPY: Stress Mgmt. Tatamy is 28 y/o male w/100% SC being treated in Specialty for therapy. He presents on time to schedule in person DBT therapy appt. He reports he has not been working on DBT handouts or implementing techniques as focus has been on his roommate who has kidney stones. He shares he and other roommate have been doing extra household work. He reports ongoing issues w/sleep. He reports taking medications. He shares noticing an increase in lack of emotional response/numbing and issues w/recalling details about day of his 's . He feels he is blocking. They review option for PTSD EBP thru outpatient, PTSD Pact/IOP, and residential. He will further consider while stating barriers related to all levels of care. He shares of updates on his son's engagement w/MH and plan to r/s last c/l appt. They review use of DBT strategies for distress tolerance and mindfulness to help in relationship w/self, others, and ability to manage stressors. He has not started CBTI and has not been doing requested sleep tracking. They review at this time, he will not continue w/DBT (while he does still want to take Module II copied today). He will further consider PTSD EBP. No other needs at this time. He shares he is looking forward to getting a puppy in August. would like to meet again as scheduled. Tatamy is calm and stable at the end of the session with no SI/HI noted. INTERVENTIONS: Assessed mental health status and reviewed events since last session. SW assesses SI/HI. SW reviews the goals for session. SW offers emotional support and uses active listening. SW offers DBT as scheduled. SW reviews skill building and his ability to tolerate feelings of distress and pleasant emotions. SW offers PTSD support and education. SW reviews PTSD EBP and LOC available to meet his needs. 'S PARTICIPATION: x Actively participated in discussion [...] Suicide Prevention plan from Mar 23, 2023. MENTAL STATUS EXAM: ORIENTATION AND CONSCIOUSNESS: Alert [...] now or since last appt. He reports he would be okay if he did not wake up but is absent of SI. He reports he is c/o if he would engage in trauma EBP about his mental safety which is confirmed to mean suicidal thoughts and ability to remain safe. Review of LOC available and he will further consider. Safety plan developed on Mar. presents as [...] in Treatment Will follow up with the in 2 weeks as scheduled is aware to contact the clinic or the [facility] Crisis Line with concerns prior to the next scheduled visit. Evidence-Based Psychotherapy Suicide Prevention and Safety Planning Dialectical Behavior Therapy (DBT) The patient discontinued DBT without completing the full protocol. /deanna/ ADDIS CROWDERV CLINICIAL BLUNGER MACHINE OPERATOR Signed: 07/03/2024 16:09 [facility]DIS CLOUD [facility]
--- OUTSIDE RECORDS SUMMARY | 2024-07-11 05:00 | XMS_ITS | Encounter Summary ---
Author Name [facility] [place] [facility] [place] [facility] [place] Address [address] [place] [address] Care Team Providers Care [employer] Consultant Name Role Phone ROSARIO ESCALERA Primary Care [...] Type Encounter Description Reason Provider Source Jul 11, 2024 09:00 AM OFF/OP CNSLTJ NEW/EST LOW 30 [facility] ICD-10-CM Z98.52 Vasectomy status [facility] Encounter Template Text not used by [place] Assessments - Encounter Diagnoses This section includes the primary and secondary diagnoses documented for the Encounter. Date/Time Primary/Secondary Diagnosis Diagnosis Name Provider Source Jul 11, 2024 09:26 AM PRIMARY Vasectomy status [facility] Plan of Treatment: Future Appointments (+ [...] 20 appointments. The data comes from all [facility]. Appointment Date/Time Appointment Type Appointme nt Facility Name Jul 15, 2024 03:00 PM AMBULATORY - SURGERY [facility] Jul 17, 2024 01:00 PM AMBULATORY - SURGERY [facility] Jul 18, 2024 01:00 PM AMBULATORY - PSYCHIATRY [facility] Jul 18, 2024 02:00 PM AMBULATORY - PSYCHIATRY CL [facility] Jul 21, 2024 09:30 AM AMBULATORY - SURGERY [facility] Jul 25, 2024 02:30 PM AMBULATORY - NONE [facility] Aug 07, 2024 02:00 PM AMBULATORY - PSYCHIATRY [facility] Aug 11, 2024 01:30 PM AMBULATORY - SURGERY [facility] Aug 13, 2024 03:30 PM AMBULATORY - PSYCHIATRY [facility] Aug 20, 2024 02:00 PM AMBULATORY - SURGERY [facility] Aug 22, 2024 03:00 PM AMBULATORY - PSYCHIATRY [facility] Aug 26, 2024 02:30 PM [facility] - NONE [facility] Aug 26, 2024 03:00 PM [facility] - NONE [facility] Aug 27, 2024 02:45 PM AMB[facility]ATORY - NONE [facility] Aug 27, 2024 03:00 PM AMBULATORY - PSYCHIATRY [facility] Aug 28, 2024 09:30 AM AMBULATORY - PSYCHIATRY [facility] Aug 29, 2024 01:30 PM AMBULATORY - PSYCHIATRY CL [facility] Sep 03, 2024 01:00 PM AMBULATORY - PSYCHIATRY CL [facility] Sep 04, 2024 01:00 PM AMBULATORY - NEUROLOGY [facility] Sep 05, 2024 10:00 AM [facility] Lab Results: +/- 30 days [...] Type Comment Jul 15, 2024 03:[address] [facility] ALLERGY PANEL, ZONE 8 SERUM Specimen Type: SERUM No comment entered. Ordering Provider: SIDDHARTHA ESPINAL Report Released Date/Time: Jul 15, 2024 03:37 PM Reporting Lab: [address] [address] Performing Lab: [address] [address] DERMATO PTER <0.10 kU/L <0.34 DERMATOPHAGOIDES FARINEA <0.10 kU/L <0.3 4 CAT EPITHELIUM <0.10 kU/L <0.34 DOG EPITHELIUM <0.10 kU/L <0.34 CANDY GRASS <0.10 kU/L <0.34 BAHIA GRASS <0.10 kU/L <0.34 BERMUDA GRASS <0.10 kU/L <0.34 NOVEMBER GRASS ([place] BLUE) <0.10 kU/L <0 .34 COCKROACH, LITHUANIAN IgE <0.10 kU/L <0.34 PENICILLIUM NOTATUM <0.10 [...] <0.10 kU/L <0.34 MUGWORT <0.10 kU/L <0.34 CYMRAES PLANTAIN <0.10 kU/L <0.34 Jul 15, 2024 03:[address] [facility] IGE SERUM Specimen Type: SERUM No comment entered. Ordering Provider: SIDDHARTHA ESPINAL Report Released Date/Time: Jul 15, 2024 03:37 PM Reporting Lab: [address] [address] Performing Lab: [address] [address] IGE <21.0 [IU]/mL <99.9 Jun 19, 2024 09:[address] [facility] LIPID PROFILE PLASMA Specimen Type: PLASMA [...] Nov 20, 2023 01:30 PM Reporting Lab: [address] [address] Performing Lab: [address] [address] CHOLESTEROL 243 mg/dL H <199 LDL CHOLESTEROL 172 mg/dL H 0-99 HDL CHOLESTEROL 33 mg/dL L >40 TRIGLYCERIDE 284 mg/dL H <149 Jun 19, 2024 09:[address] [facility] MAGNESIUM PLASMA Specimen Type: PLASMA Comment: [...] Nov 20, 2023 01:30 PM Reporting Lab: [address] [address] Performing Lab: [address] [address] MAGNESIUM 2.2 mg/dL 1.6-2.6 Jun 19, 2024 09:[address] [facility] VITAMIN D (TOTAL) SERUM Specimen Type : SERUM No comment entered. Ordering Provider: ROSARIO ESCALERA Report Released Date/Time: Nov 20, 2023 01:30 PM Reporting Lab: [address] [address] Performing Lab: [address] [address] VITAMIN D (TOTAL) 9 ng/mL L 30-60 Jun 19, 2024 09:[address] [facility] TSH PLASMA Specimen Type: PLASMA Comment: [...] Nov 20, 2023 01:30 PM Reporting Lab: [address] [address] Performing Lab: [place] [phone] TSH 4.701 u[IU]/mL 0.350-4.940 Jun 19, 2024 09:[address] [facility] COMPREHENSIVE METABOLIC PANEL PLASMA S pecimen [...] Nov 20, 2023 01:30 PM Reporting Lab: [address] [address] Performing Lab: [address] [address] ALBUMIN 4.8 g/dL 3.5-4.8 ALKALINE PHOSPHATASE 73 [...] 104.0 mL/min Jun 19, 2024 09:[address] [facility] CBC BLOOD Specimen Type: BLOOD Comment: Manual Differential Performed. RBC and PLT morphology reviewed Slide reviewed for lymphocytosis Ordering Provider: ROSARIO ESCALERA Report Released Date/Time: Nov 20, 2023 01:30 PM Reporting Lab: [address] [address] Performing Lab: [address] [address] WBC COUNT 14.7 10*3/uL H 3.6-11.0 RBC [...] ABS BASOPHIL COUNT (MANUAL) 0.0 10*3/uL 0.0-0.3 Advance Directives: All historical and current Section [...] CT TEMPORAL NICKIE NE W/O CONTRAST : BRITTNEYGMARION ALEX [id number] -1995 M Exm Date: JUL 25, 2024@14:35 Req Phys: SIDDHARTHA ESPINAL Loc: [facility] INSIDE WIRER 1 (Req'g Loc) Img Loc: [facility] [place] [address] Service: [place] [address] (Case [id number] COMPLETE)[facility] CT (CT Detailed) CPT:85666 Reason for Study: conductive hearing loss Clinical History: [address] [place] [id number] Report Status: Verified Date Reported: JUL 28, 2024 Date Verified: JUL 28, 2024 Passenger Elevator Operator E-Sig:/ES/KULDIP MCELROY Report: CT OF [place] [...] Code: Primary Interpreting Staff: KULDIP MCELROY, RADIOLOGIST (Passenger Elevator Operator) /KULDIP WHITAKER [facility] Jul 25, 2024 02:[address] TEMPORAL BONE W /O CONTRAST: MARION ZHENG [id number] -1995 M Exm Date: JUL 25, 2024@14:34 Req Phys: SIDDHARTHA ESPINAL Loc: [facility] INSIDE WIRER 1 (Req'g Loc) Img Loc: [facility] [place] [facility] Service: [place] [address] (Case [id number] COMPLETE)CT TEMPORAL BONE W/O CONTRAST (CT Detailed) CPT:98375 Reason for Study: chronic congestion, right nasal obstruction Clinical History: Report Status: Verified Date Reported: JUL 28, 2024 Date Verified: JUL 28, 2024 Passenger Elevator Operator E-Sig:/ES/KULDIP MCELROY Report: CT TEMPORAL BONE , [...] Code: Primary Interpreting Staff: KULDIP MCELROY, RADIOLOGIST (Passenger Elevator Operator) /KULDIP WHITAKER [facility] Pathology Reports: +/- 30 [...] comes from all [place] treatment facilities. Date/Time Pathology Report Provider Source [...] OF VAS DEFERENS, COMPLETELY TRANSECTED LUMEN. CPT: 10412 x 2 GROSS DESCRIPTION A. Specimen is [...] Performing Laboratory: Surgical Pathology Report Performed By: [facility] [CLIA# [id number]] [address] [place] [address] $FTR - - - - - - [...] - - MARION ZHENG STANDARD FORM 515 ID:[id number] SEX:M :1995 AGE: 28 LOC:[facility] PCP: DO carlos Lara/ [facility] HAND PATHOLOGIST Signed: 07/23/2024 14:[address] [facility] Encounter Notes: All associated encounter notes This section contains the clinical notes associated to the Encounter. Date/Time Encounter Note(s) Provider Source Jul 15, 2024 07:44 AM UROLOGY NOTE: LOCAL TITLE: UROLOGY SURGERY INDICATION MEETING NOTE STANDARD TITLE: UROLOGY NOTE DATE OF NOTE: JUL 15, 2024@07:44 ENTRY DATE: JUL 15, 2024@07:44:33 AUTHOR: SABRINA GILLETTE EXP COSIGNER: URGENCY: STATUS: COMPLETED Indication Meeting Jun Surgery Date Jul Preop Date Vasectomy under Local FRAILTY CALCULATION: Risk Analysis Index (DU) score is: Score: 7 Variable Score Sex: 3 Cancer Status: No Weight Loss: 0 Poor Appetite: 0 Renal Insufficiency: 0 Chronic/Congestive Heart Failure: 0 Shortness of Breath: 0 Dependent Livin Cognitive Decline: No ADL*Cognitive Decline: 0 Mobility: Can get around without any help Eating: Can plan and prepare his/her own meals Toileting: Can use the toilet without help Personal Hygiene: Can shower or bathe without prompting or help DU Score: 7 Anticoagulation Plan N/A Covid Test Date N/A UROLOGY URINE CULTURE N/A LAB MICROBIOLOGY N/A Surgery Other Vasectomy under local Plan Proceed to OR Yes, testing and workup complete Special Equipment N/A Seman Analysis 3mo from [place]/ SABRINA GILLETTE LICENSED PRACTICAL NURSE Signed: 07/15/2024 07:46 Receipt Acknowledged By: 07/15/2024 07:50 /deanna/ MIRA CARRENO CHIEF, UROLOGY SECTION [facility] Jul 11, 2024 09:27 AM SURGERY NOTE: LOCAL TITLE: DU FRAILTY TOOL STANDARD TITLE: SURGERY NOTE DATE OF NOTE: JUL 11, 2024@09:27 ENTRY DATE: JUL 11, 2024@09:27:18 AUTHOR: [facility] EXP COSIGNER: URGENCY: STATUS: COMPLETED FRAILTY CALCULATION: Risk Analysis Index (DU) score is: Score: 7 Variable Score Sex: 3 Cancer Status: No Weight Loss: 0 Poor Appetite: 0 Renal Insufficiency: 0 Chronic/Congestive Heart Failure: 0 Shortness of Breath: 0 Dependent Livin Cognitive Decline: No ADL*Cognitive Decline: 0 Mobility: Can get around without any help Eating: Can plan and prepare his/her own meals Toileting: Can use the toilet without help Personal Hygiene: Can shower or bathe without prompting or help DU Score: 7 /deanna/ [facility] NURSE PRACTITIONER Signed: 07/11/2024 09:29 [facility] Jul 11, 2024 09:06 AM UROLOGY CONSULT: LOCAL TITLE: UROLOGY CONSULTATION NOTE (C) STANDARD TITLE: UROLOGY CONSULT DATE OF NOTE: JUL 11, 2024@09:06 ENTRY DATE: JUL 11, 2024@09:06:17 AUTHOR: [facility] EXP COSIGNER: URGENCY: STATUS: COMPLETED UROLOGY CONSULTATION NOTE (C) Has ADDENDA HPI: 28 yo male presents in consult regarding vasectomy children - 1 relationship status - @ 1yr, was at time of meds none Last seen by urology Denies any major illnesses, hospitalizations or surgeries since last visit PMH significant for non contributory Caffeine intake: Smoker: ROS Constitutional - NAD, A&O x 3 GI - denies constipation/diarrhea, abd/flank pain - see above PE Abd - No CVA tenderness, abd soft, non tender, no masses Penis - WNL, no masses, nodules, plaque, discharge, circumcised Scrotum, WNL, dileep testes descended, no masses/nodules/tenderness, epididymis WNL Ext - no pedal edema PVR LABS PSA TRUSP/BX IMAGING ASSESSMENT/PLAN had lengthy discussion regarding low success rate of reversal and to assure pt was not making a decision based on grief, pt acknowledged low success rate of reversal and repeatedly confirmed he has given much thought to this and wishes to proceed with vasectomy elective sterilization - discussed procedure/risks/local/heme/infec t/spermatocele/recanalization/re st/ice/ pain/fertile until neg spec/done at wp/literature given BMI 24 - gen if >40 I am the Staff Provider. TOTAL TIME SPENT: Spent 30 minutes in care of this patient today including review of records, exam, and placing orders. /deanna/ [facility] NURSE PRACTITIONER Signed: 07/11/2024 09:26 Receipt Acknowledged By: 07/11/2024 10:12 /deanna/ DARLENE DURAND REGISTERED NURSE 07/11/2024 ADDENDUM STATUS: COMPLETED UROLOGY SURGERY SCHEDULING NOTE: You are scheduled for your Vasectomy under LOCAL on: Sunday July 21, 2024 at the [facility] - patient agreeable with date. This will be at [facility] ([facility]): [address] [place] [address] (call if you have not received a phone call by 1500 Sunday before surgery date) You will receive a call from the [facility] on the Sunday prior to your day of surgery with your time to arrive and your instructions. Medication Information: Per Preop Please bring a list of all current medications and doses for all supplements, vitamins, over the counter medications as well as prescribed medications. 5 days prior to surgery: Discontinue 325mg Aspirin / Anti Inflammatory' s /Ibuprofen/ Iron Pills / Vitamins w/ Iron. Can transition to 81mg ASA for surgery if needed. 2 weeks prior to surgery: Discontinue Omegas / Fish Oil / Glucosamine / Herbal Supplements. If you are on a prescribed Blood Thinner Medication: there will be different dates to stop taking per that medication recommendation. Call your doctor that prescribes that medication for information when to stop taking for a scheduled surgery. If you are scheduled under Local Anesthesia: No restrictions / you can eat a light breakfast / take your routine AM medications /you can drive yourself. We always recommend having 1 person come with you in case you are not feeling up to driving. *If you think there is a chance of needing Sedation: You will need to notify me as soon as possible for Preop prior to surgery ? may need to change OR date if unable to schedule preop appointment. If you are scheduled under Sedation Anesthesia: You will be scheduled for Preop Clearance to receive anesthesia. Preop will call to schedule this appointment. You MUST have a person with you that will be your lokie driver home & be with you that day. Without a lokie driver you can be done under Local only or Rescheduled at the next available date. If you cannot keep your surgery date, please contact me DEB ? so OR spot is not wasted and can be given to another patient. Discharge: Will wear scrotal support for 2-4 weeks - avoid strenuous activity for 2 weeks. Continue to use your usual contraception for sex until you have 1 negative Semen analyses. You will need to schedule your semen analysis 3 months from your surgery date. *Semen Analysis is to be completed approx. 3 months from day of surgery. You will need to plan on taking specimen to your local [facility] after collection made (3months from surgery date). Place specimen in clean unused container or sterile container ? keep at Room Temp ? do not use lubricant /condoms to obtain specimen. Place your Full Name / Full Social Number / Birthdate on container. Take to [facility] as soon as possible that day. Any questions please call [phone] Ext [phone] or [phone] If you have any questions: General Questions for Urology: Call [phone] Ext [phone] Option #3 (Nurse) Call [phone] Extension [phone], select option #4 for Urology Surgery Scheduling Thank you, Matt Durand RN, BSN, CNOR Urology Tank Truck Mechanic [phone] Extension [phone] (Sunday thru Sunday) or [place] Cell (Sunday thru Sunday) /deanna/ DARLENE DURAND REGISTERED NURSE Signed: 07/11/2024 11:29 [facility] Jul 11, 2024 08:58 AM NURSING NOTE: LOCAL TITLE: NURSING SPECIALTY NOTE (T) STANDARD TITLE: NURSING NOTE DATE OF NOTE: JUL 11, 2024@08:58 ENTRY DATE: JUL 11, 2024@08:58:09 AUTHOR: QUETA MEREDITH COSIGNER: URGENCY: STATUS: COMPLETED Patient checked in for Specialty appointment with at least 2 identifiers (Full Name, Date of , Full Social Security Number) Allergies Reviewed Documented Vitals in CPRS Clinical Reminders addressed /deanna/ QUETA MEREDITH LICENSED PRACTICAL NURSE Signed: 07/11/2024 08:58 QUETA MEREDITH [facility]
--- OUTSIDE RECORDS SUMMARY | 2024-07-11 09:00 | XMS_ITS | Encounter Summary ---
Author Name [facility] [place] [facility] [place] [facility] [place] Address [address] [place] [address] Care Team Providers Care Motel Manager Name Role Phone ROSARIO ESCALERA Primary Care Provider Nabil govea Insurance Providers: All historical and current Section [...] section includes the information on record at [place] for the Encounter. Date/Time Encounter Type Encounter Description Reason Provider Source Jul 11, 2024 01:00 PM PSYTX W PT 30 MINUTES INTERVNTION BIOMED CARE IND ICD-10-CM F51.01 Primary insomnia NAA LOPEZ Encounter Template Text not used by [place] Assessments - Encounter Diagnoses This section includes the primary and secondary diagnoses documented for the Encounter. Date/Time Primary/Secondary Diagnosis Diagnosis Name Provider Source Jul 11, 2024 01:43 PM PRIMARY Primary insomnia NAA LOPEZ [facility] Jul 11, 2024 01:43 PM SECONDARY Major depressive disorder, single episode, unspecified NAA LOPEZ [facility] Jul 11, 2024 01:43 PM SECONDARY Personality disorder, unspecified NAA LOPEZ [facility] Jul 11, 2024 01:43 PM SECONDARY Post-traumatic stress disorder, chronic NAA LOPEZ [facility] Jul 11, 2024 01:43 PM SECONDARY Tobacco use NAA LOPEZ [facility] Plan of Treatment: Future Appointments (+ 6 months) and Future Tests (+/- 45 days) The Plan of Treatment section includes future care activities for the patient from all [place] [facility] This section includes future appointments and future orders which are active, pending or scheduled. Future Appointments This section includes appointments that were scheduled to occur 6 months from the date of the Encounter, up to a maximum of 20 appointments. The data comes from all [facility]. Appointment Date/Time Appointment Type Appointme nt Facility Name Jul 15, 2024 03:00 PM AMBULATORY - SURGERY [facility] Jul 17, 2024 01:00 PM AMBULATORY - SURGERY [facility] Jul 18, 2024 01:00 PM AMBULATORY - PSYCHIATRY [facility] Jul 18, 2024 02:00 PM AMBULATORY - PSYCHIATRY CL [facility] Jul 21, 2024 09:30 AM AMBULATORY - SURGERY [facility] Jul 25, 2024 02:30 PM AMBULATORY - NONE [facility] Aug 07, 2024 02:00 PM AMBULATORY - PSYCHIATRY CL [facility] Aug 11, 2024 01:30 PM AMBULATORY - SURGERY [facility] Aug 13, 2024 03:30 PM AMBULATORY - PSYCHIATRY CL [facility] Aug 20, 2024 02:00 PM AMBULATORY - SURGERY [facility] Aug 22, 2024 03:00 PM AMBULATORY - PSYCHIATRY CL [facility] Aug 26, 2024 02:30 PM AMBULATORY - NONE [facility] Aug 26, 2024 03:00 PM AMBULATORY - NONE [facility] Aug 27, 2024 02:45 PM AMBULATORY - NONE [facility] Aug 27, 2024 03:00 PM AMBULATORY - PSYCHIATRY CL [facility] Aug 28, 2024 09:30 AM AMBULATORY - PSYCHIATRY CL [facility] Aug 29, 2024 01:30 PM AMBULATORY - PSYCHIATRY CL [facility] Sep 03, 2024 01:00 PM AMBULATORY - PSYCHIATRY CL [facility] Sep 04, 2024 01:00 PM AMBULATORY - NEUROLOGY [facility] Sep 05, 2024 10:00 AM AMBULATORY - NONE [facility] Lab Results: +/- 30 days [...] Type Comment Jul 15, 2024 03:49 PM [facility] ALLERGY PANEL, ZONE 8 SERUM Specimen Type: SERUM No comment entered. Ordering Provider: SIDDHARTHA ESPINAL Report Released Date/Time: Jul 15, 2024 03:37 PM Reporting Lab: [address] [address] Performing Lab: [address] [address] DERMATO PTER <0.10 kU/L <0.34 DERMATOPHAGOIDES FARINEA <0.10 kU/L <0.3 4 CAT EPITHELIUM <0.10 kU/L <0.34 DOG EPITHELIUM <0.10 kU/L <0.34 CANDY GRASS <0.10 kU/L <0.34 BAHIA GRASS <0.10 kU/L <0.34 BERMUDA GRASS <0.10 kU/L <0.34 NOVEMBER GRASS ([place] BLUE) <0.10 kU/L <0 .34 COCKROACH, AMHARIC IgE <0.10 kU/L <0.34 PENICILLIUM NOTATUM <0.10 [...] <0.10 kU/L <0.34 MUGWORT <0.10 kU/L <0.34 OMANI PLANTAIN <0.10 kU/L <0.34 Jul 15, 2024 03:49 PM [facility] IGE SERUM Specimen Type: SERUM No comment entered. Ordering Provider: SIDDHARTHA ESPINAL Report Released Date/Time: Jul 15, 2024 03:37 PM Reporting Lab: [address] [address] Performing Lab: [address] [address] IGE <21.0 [IU]/mL <99.9 Jun 19, 2024 09:49 AM [facility] LIPID PROFILE PLASMA Specimen Type: PLASMA [...] 20, 2023 01:30 PM Reporting Lab: [address] [address] Performing Lab: [address] [address] CHOLESTEROL 243 mg/dL H <199 LDL CHOLESTEROL 172 mg/dL H 0-99 HDL CHOLESTEROL 33 mg/dL L >40 TRIGLYCERIDE 284 mg/dL H <149 Jun 19, 2024 09:49 AM [facility] VITAMIN D (TOTAL) SERUM Specimen Type : SERUM No comment entered. Ordering Provider: ROSARIO ESCALERA Report Released Date/Time: Nov 20, 2023 01:30 PM Reporting Lab: [address] [address] Performing Lab: [address] [address] VITAMIN D (TOTAL) 9 ng/mL L 30-60 Jun 19, 2024 09:49 AM [facility] MAGNESIUM PLASMA Specimen Type: PLASMA Comment: [...] 20, 2023 01:30 PM Reporting Lab: [address] [address] Performing Lab: [address] [address] MAGNESIUM 2.2 mg/dL 1.6-2.6 Jun 19, 2024 09:49 AM [facility] COMPREHENSIVE METABOLIC PANEL PLASMA S pecimen [...] 20, 2023 01:30 PM Reporting Lab: [address] [address] Performing Lab: [address] [address] ALBUMIN 4.8 g/dL 3.5-4.8 ALKALINE PHOSPHATASE 73 [...] 104.0 mL/min Jun 19, 2024 09:49 AM [facility] TSH PLASMA Specimen Type: PLASMA Comment: [...] 20, 2023 01:30 PM Reporting Lab: [address] [address] Performing Lab: [address] [address] TSH 4.701 u[IU]/mL 0.350-4.940 Jun 19, 2024 09:49 AM [facility] CBC BLOOD Specimen Type: BLOOD Comment: Manual Differential Performed. RBC and PLT morphology reviewed Slide reviewed for lymphocytosis Ordering Provider: ROSARIO ESCALERA Report Released Date/Time: Nov 20, 2023 01:30 PM Reporting Lab: [address] [address] Performing Lab: [address] [address] WBC COUNT 14.7 10*3/uL H 3.6-11.0 RBC [...] Pain Height Weight Body Mass Index Source Jul 11, 2024 08:56 AM 98.6 74 131/88 16 98 0 169 24 [facility] Social History: Smoking Status (Most current) and Tobacco Use (All prior to encounter date) This section includes the most current, and the historical, smoking and tobacco- related health factors from the [place] facility where the Encounter took place. Current Smoking Status This section includes the most current smoking, or tobacco-related health factor, from the [place] facility where the Encounter took place. Date/Time Current Smoking Status Comment Facil ity Jun 06, 2024 11:30 AM VA-TOBACCO USE EVERY DAY C[facility] Tobacco Use History This section includes a history of the smoking, or tobacco-related health factors, that were collected on or before the date of the Encounter. The data comes from the [place] facility where the Encounter took place. Date/Time Smoking Status/Tobacco Use Comment F acility Jun 06, 2024 11:30 AM VA-TOBACCO USE ADVICE [facility] Jun 06, 2024 11:30 AM VA-TOBACCO USE VISCERA WASHER NO [facility] Jun 06, 2024 11:30 AM VA-TOBACCO USE EVERY DAY CIGARET MANNY [facility] Jun 06, 2024 11:30 AM VA-TOBACCO USE EVERY DAY ENDS [facility] Jun 06, 2024 11:30 AM VA-TOBACCO USE EVERY DAY OTHER T YPE [facility] Jun 06, 2024 11:30 AM VA-TOBACCO USE MED [facility] Jun 19, 2023 10:00 AM TOBACCO FORMER USER [facility] Advance Directives: All historical and current Section Date Range: From patient's date of to the date document was created. This section includes ALL of a patient's completed or amended [place] Advance and Rescinded Directives. The entries below indicate that a directive exists for the patient, but an actual copy is not included with this document. The data comes from all [place] facilities. Date Advance Directives Provider Source October 22, 2023 ADVANCE DIRECTIVE DISCUSSION SABINA NAIR [facility] Radiology Reports: +/- 30 days of the [...] the Encounter. The data comes from all [place] treatment facilities. Date/Time Radiology Report Provider Source Jul 25, 2024 02:35 PM P/D CT TEMPORAL NICKIE NE W/O CONTRAST : BRITTNEYMARION Haji [id number] -1995 M Exm Date: JUL 25, 2024@14:35 Req Phys: SIDDHARTHA ESPINAL Pat Loc: [facility] (Req'g Loc) Img Loc: [facility] [address] [address] Service: [place] [address] (Case [id number] COMPLETE)[facility] CT (CT Detailed) CPT:75112 Reason for Study: conductive hearing loss Clinical History: [address] [id number] Report Status: Verified Date Reported: JUL 28, 2024 Date Verified: JUL 28, 2024 Ehs Specialist E-Sig:/ES/KULDIP MCELROY Report: [facility] [place] [facility] [...] Code: Primary Interpreting Staff: KULDIP MCELROY, RADIOLOGIST (Ehs Specialist) /KULDIP WHITAKER CB Jul 25, 2024 02:[address] TEMPORAL BONE W /O CONTRAST: MARION ZHENG [id number] 1995 M Exm Date: JUL 25, 2024@14:34 Req Phys: SIDDHARTHA ESPINAL Loc: [facility] (Req'g Loc) Img Loc: [facility] [address] [address] Service: [place] [address] (Case [id number] COMPLETE)CT TEMPORAL BONE W/O CONTRAST (CT Detailed) CPT:99259 Reason for Study: chronic congestion, right nasal obstruction Clinical History: Report Status: Verified Date Reported: JUL 28, 2024 Date Verified: JUL 28, 2024 Ehs Specialist E-Sig:/ES/KULDIP MCELROY Report: CT TEMPORAL BONE , [...] Code: Primary Interpreting Staff: KULDIP MCELROY, RADIOLOGIST (Ehs Specialist) /KULDIP WHITAKER [facility] Pathology Reports: +/- 30 [...] the Encounter. The data comes from all [place] treatment facilities. Date/Time Pathology Report Provider Source [...] OF VAS DEFERENS, COMPLETELY TRANSECTED LUMEN. CPT: 06151 x 2 GROSS DESCRIPTION A. Specimen is [...] Performing Laboratory: Surgical Pathology Report Performed By: [facility] [CLIA# [id number]] [address] [place] [address] $FTR - - - - - - [...] - - MARION ZHENG STANDARD FORM 515 ID:[id number] SEX:M :1995 AGE: 28 LOC:[facility] PCP: Rosario Escalera, DO /es/ PAULA HAND PATHOLOGIST Signed: 07/23/2024 14:14 PAULA HAND [facility] Encounter Notes: All associated encounter notes This section contains the clinical notes associated to the Encounter. Date/Time Encounter Note(s) Provider Source Jul 11, 2024 11:59 AM MENTAL HEALTH NOTE : LOCAL TITLE: BEHAVIORAL MEDICINE PROGRESS NOTE STANDARD TITLE: MENTAL HEALTH NOTE DATE OF NOTE: JUL 11, 2024@11:59 ENTRY DATE: JUL 11, 2024@12:00:11 AUTHOR: NAA LOPEZ COSIGNER: URGENCY: STATUS: COMPLETED BEHAVIORAL SLEEP MEDICINE DATE OF APPOINTMENT: July 11, 2024 LENGTH OF APPOINTMENT: 34 minutes MODALITY: Telemental Health PROVIDER: Dr. Naa Lopez (Clinical Health Psychologist) DIAGNOSES, per chart: Insomnia (SCT [id number]) - Primary insomnia (ICD-10-CM F51.01) (Primary) Chronic post-traumatic stress disorder (SCT 036281217) - Post-traumatic stress disorder, chronic (ICD-10-CM F43.12) Depression (SCT 79036619) - Major depressive disorder, single episode, unspecified (ICD-10-CM F32.9) Personality disorder (SCT 88434245) - Personality disorder, unspecified Nicotine use TYPE OF CARE PROVIDED: Behavioral Sleep Medicine [facility] appointment. SESSION FORMAT Video Telehealth Session SESSION LOCATION Other location-Sleep clinic was informed that provider was teleworking from home and consented to appointment. [place] confirmed he/she was in a safe and private location, at home, not driving. Provider discussed issues of confidentiality, privacy, and limits therein, as well as the shared medical record and emergency procedures. [place] was requested to abstain from alcohol and drug use during appt. [place] verbalized understanding and gave his/her verbal informed consent to be seen by this provider virtually under these conditions. [place] was given this provider's contact information and [...] to future care, services, or benefits. The was present at home for this session, and their address and phone number were reviewed during this session and confirmed as accurate. Telehealth deemed to be a safe and appropriate clinical option for this patient. REFERRAL/BACKGROUND INFORMATION: [place]i is a 28-year-old male with PTSD, depressive DO unspecified, personality DO unspecified, and insomnia d/o. Currently connected with mental health care. Please see previous notes of this senior copywriter for further information. He was seen again today to continue assessment process and engage in further treatment planning. 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 RISK ASSESSMENT: No suicidal or homicidal ideation intent or plan endorsed or evidenced throughout the visit. was not judged to be in need of acute psychological care; low risk. aware of VCL and emergency resources. [place] is actively connected with mental health treatment and has multiple protective factors including being a caregiver for his son with whom he lives and living with friends with whom he shares childrearing duties. MENTAL STATUS/BEHAVIORAL OBSERVATIONS: Arrival: on time, visible at home. Sounds of children playing in the back room though they were in a different room and he confirmed she had privacy for the appointment Appearance/Attitude: Casual dress, alert, polite, and engaged Motor behavior: WNL. He began vaping at the appointment and was asked to not do so to which he agreed. Speech: WNL Mood/Affect: Mood calm and euthymic with congruent affect Thought content: Normal (Logical) Insight/Judgment: fair Impulse control (current): Intact Orientation: Oriented to person, place, and time Auditory/Visual Hallucinations: Not evident CLINICAL REMINDERS: None due Plan: Collaboratively reviewed the requirements to engage in CBT for insomnia disorder including the foundational role of sleep logs. Patient confirmed he still wants to do this treatment. We decided to book out until later in July as he has a surgery and will need time to recover. will read chapters 1-2 and track sleep for 2 weeks before next appointment will plan to readminister PAMELLA RTC: 60 min V[facility] appt for August 13Sunday at 3:30 PM per [place] preference. Recommendations and plan outlined above were created in collaboration with the in a shared decision-making process considering the 's cultural background, values, goals, and treatment preferences. This note was dictated using [employer] speech to text software. Despite proofreading, planning director errors may be present. Evidence-Based Psychotherapy Sleep Disorders Cognitive-Behavioral Therapy for Insomnia (CBT-I) In the course of the current session, CBT-I was discussed and offered. The patient expressed an interest in engaging in this therapy. Video to Home Appointment: Telehealth Disclosure: Visit [...] emergencies, provider may initiate the call to sort worker by calling [facility] [phone] [address] Veterans/ Crisis Line - Dial 988, press #1 [employer] Help Desk (NTTHD): [phone] or [phone] I am the Staff Provider. /deanna/ NAA LOPEZ CLINICAL PSYCHOLOGIST Signed: 07/11/2024 13:44 NAA LOPEZ [facility]
--- OUTSIDE RECORDS SUMMARY | 2024-07-14 11:00 | XMS_ITS | Encounter Summary ---
Author Name [facility] [place] [facility] [place] Address [address] [place] [address] Care Team Providers Care Warp Hanger Name Role Phone ROSARIO ESCALERA Primary Care Provider [facility] Insurance Providers: All historical and current [...] section includes the information on record at [place] for the Encounter. 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 Date/Time Primary/Secondary Diagnosis Diagnosis Name Provider Source Jul 14, 2024 04:27 PM PRIMARY Spiritual or holiness counseling BLADIMIR VENCES [facility] Plan of Treatment: Future Appointments (+ 6 months) and Future Tests (+/- 45 days) The Plan of Treatment section includes future care activities for the patient from all [place] treatmentfacilities. This section includes future appointments and future orders which are active, pending or scheduled. Future Appointments This section includes appointments that were scheduled to occur 6 months from the date of the Encounter, up to a maximum of 20 appointments. The data comes from all [facility] Appointment Date/Time Appointment Type Appointme nt Facility Name Jul 15, 2024 03:00 PM AMBULATORY - SURGERY [facility] Jul 17, 2024 01:00 PM AMBULATORY - SURGERY [facility] Jul 18, 2024 01:00 PM AMBULATORY - PSYCHIATRY [facility] Jul 18, 2024 02:00 PM AMBULATORY - PSYCHIATRY [facility] Jul 21, 2024 09:30 AM AMBULATORY - SURGERY [facility] Jul 25, 2024 02:30 PM AMBULATORY - NONE [facility] Aug 07, 2024 02:00 PM AMBULATORY - PSYCHIATRY [facility] Aug 11, 2024 01:30 PM AMBULATORY - SURGERY [facility] Aug 13, 2024 03:30 PM AMBULATORY - PSYCHIATRY [facility] Aug 20, 2024 02:00 PM AMBULATORY - SURGERY [facility] Aug 22, 2024 03:00 PM AMBULATORY - PSYCHIATRY [facility] Aug 26, 2024 02:30 PM [facility] - NONE [facility] Aug 26, 2024 03:00 PM [facility] - NONE [facility] Aug 27, 2024 02:45 PM AMBULATORY - NONE [facility] Aug 27, 2024 03:00 PM AMBULATORY - PSYCHIATRY [facility] Aug 28, 2024 09:30 AM AMBULATORY - PSYCHIATRY [facility] Aug 29, 2024 01:30 PM AMBULATORY - PSYCHIATRY [facility] Sep 03, 2024 01:00 PM AMBULATORY - PSYCHIATRY [facility] Sep 04, 2024 01:00 PM AMBULATORY - NEUROLOGY [facility] Sep 05, 2024 10:00 AM [facility] Lab Results: +/- 30 days of the encounter This section includes the Chemistry and Hematology Lab Results on record with [place] for the patient. Radiology Reports and Pathology Reports are provided separately, in subsequent sections. Lab Results This section contains the Chemistry/Hematology Results that were resulted 30 days before or 30 daysafter the date of the Encounter. Date/Time Source Result Type Result - Unit Interpretation Reference Range Specimen Type Comment Jul 15, 2024 03:49 PM [facility] ALLERGY PANEL, ZONE 8 SERUM Specimen Type: SERUM No comment entered. Ordering Provider: SIDDHARTHA ESPINAL Report Released Date/Time: Jul 15, 2024 03:37 PM Reporting Lab: [address] [address] Performing Lab: [address] [address] DERMATO PTER <0.10 kU/L <0.34 DERMATOPHAGOIDES FARINEA <0.10 kU/L <0.3 4 CAT EPITHELIUM <0.10 kU/L <0.34 DOG EPITHELIUM <0.10 kU/L <0.34 CANDY GRASS <0.10 kU/L <0.34 BAHIA GRASS <0.10 kU/L <0.34 BERMUDA GRASS <0.10 kU/L <0.34 NOVEMBER GRASS ([place] BLUE) <0.10 kU/L <0 .34 COCKROACH, SERBIAN IgE <0.10 kU/L <0.34 PENICILLIUM NOTATUM <0.10 [...] <0.10 kU/L <0.34 MUGWORT <0.10 kU/L <0.34 NIGERIAN PLANTAIN <0.10 kU/L <0.34 Jul 15, 2024 03:49 PM [facility] IGE SERUM Specimen Type: SERUM No comment entered. Ordering Provider: SIDDHARTHA ESPINAL Report Released Date/Time: Jul 15, 2024 03:37 PM Reporting Lab: [address] [address] Performing Lab: [address] [address] IGE <21.0 [IU]/mL <99.9 Jun 19, 2024 09:49 AM [facility] LIPID PROFILE PLASMA Specimen Type: PLASMA [...] factor for heart disease. Ordering Provider: ROSARIO ESCALEAR Report Released Date/Time: Nov 20, 2023 01:30 PM Reporting Lab: [address] [address] Performing Lab: [address] [address] CHOLESTEROL 243 mg/dL H <199 LDL CHOLESTEROL 172 mg/dL H 0-99 HDL CHOLESTEROL 33 mg/dL L >40 TRIGLYCERIDE 284 mg/dL H <149 Jun 19, 2024 09:49 AM [facility] MAGNESIUM PLASMA Specimen Type: PLASMA Comment: [...] Nov 20, 2023 01:30 PM Reporting Lab: [address] [address] Performing Lab: [address] [address] MAGNESIUM 2.2 mg/dL 1.6-2.6 Jun 19, 2024 09:49 AM [facility] VITAMIN D (TOTAL) SERUM Specimen Type : SERUM No comment entered. Ordering Provider: ROSARIO ESCALERA Report Released Date/Time: Nov 20, 2023 01:30 PM Reporting Lab: [address] [address] Performing Lab: [address] [address] VITAMIN D (TOTAL) 9 ng/mL L 30-60 Jun 19, 2024 09:49 AM [facility] TSH PLASMA Specimen Type: PLASMA Comment: [...] Nov 20, 2023 01:30 PM Reporting Lab: [address] [address] Performing Lab: [place] [id number] TSH 4.701 u[IU]/mL 0.350-4.940 Jun 19, 2024 09:49 AM [facility] COMPREHENSIVE METABOLIC PANEL PLASMA S pecimen [...] Nov 20, 2023 01:30 PM Reporting Lab: [address] [address] Performing Lab: [address] [address] ALBUMIN 4.8 g/dL 3.5-4.8 ALKALINE PHOSPHATASE 73 [...] 104.0 mL/min Jun 19, 2024 09:49 AM [facility] CBC BLOOD Specimen Type: BLOOD Comment: Manual Differential Performed. RBC and PLT morphology reviewed Slide reviewed for lymphocytosis Ordering Provider: ROSARIO ESCALERA Report Released Date/Time: Nov 20, 2023 01:30 PM Reporting Lab: [address] [address] Performing Lab: [address] [address] WBC COUNT 14.7 10*3/uL H 3.6-11.0 RBC [...] and tobacco- related health factors from the [place] facility where the Encounter took place. Current Smoking Status This section includes the most current smoking, or tobacco-related health factor, from the [place] facility where the Encounter took place. Date/Time Current Smoking Status Comment Facil ity Jun 06, 2024 11:30 AM [place]-TOBACCO USE EVERY DAY CIGARET [facility] Tobacco Use History This section includes a history of the smoking, or tobacco-related health factors, that were collected on or before the date of the Encounter. The data comes from the [place] facility where the Encounter took place. 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 This section includes ALL of a patient's completed or amended [place] Advance and Rescinded Directives. The entries below indicate that a directive exists for the patient, but an actual copy is not included with this document. The data comes from all [facility]. Date Advance Directives Provider Source October 22, 2023 ADVANCE DIRECTIVE DISCUSSION SABINA NAIR [facility] Radiology Reports: +/- 30 days [...] the Encounter. The data comes from all [place] treatment facilities. Date/Time Radiology Report Provider Source Jul 25, 2024 02:35 PM P/D CT TEMPORAL NICKIE NE W/O CONTRAST : MARION ZHENG [id number] -1995 M Exm Date: JUL 25, 2024@14:35 Req Phys: SIDDHARTHA ESPINAL Pat Loc: [facility] SOLAR DEVELOPMENT ENGINEER 1 (Req'g Loc) Img Loc: [facility] Service: [place] [address] (Case [id number] COMPLETE)[facility] CT (CT Detailed) CPT:30706 Reason for Study: conductive hearing loss Clinical History: [address] [id number] Report Status: Verified Date Reported: JUL 28, 2024 Date Verified: JUL 28, 2024 [facility] E-Sig:/ES/KULDIP MCELROY Report: CT OF [facility] [...] Code: Primary Interpreting Staff: KULDIP MCELROY, RADIOLOGIST ([facility]) /KULDIP WHITAKER CB Jul 25, 2024 02:[address] TEMPORAL BONE W /O CONTRAST: MARION ZHENG [id number] -1995 M Exm Date: JUL 25, 2024@14:34 Req Phys: SIDDHARTHA ESPINAL Loc: [facility] SOLAR DEVELOPMENT ENGINEER 1 (Req'g Loc) Img Loc: [facility] CT Service: [facility] [place] [address] (Case [id number] COMPLETE)CT TEMPORAL BONE W/O CONTRAST (CT Detailed) CPT:38777 Reason for Study: chronic congestion, right nasal obstruction Clinical History: Report Status: Verified Date Reported: JUL 28, 2024 Date Verified: JUL 28, 2024 [facility] E-Sig:/ES/KULDIP MCELROY Report: CT TEMPORAL BONE , [...] of the left jugular bulb. Finalized by Erihc Mcelroy MD On 07/28/2024 11:38 AM Primary Diagnostic Code: Primary Interpreting Staff: KULDIP MCELROY, RADIOLOGIST ([facility]) /KULDIP WHITAKER [facility] Pathology Reports: +/- 30 [...] the Encounter. The data comes from all [place] treatment facilities. Date/Time Pathology Report Provider Source [...] OF VAS DEFERENS, COMPLETELY TRANSECTED LUMEN. CPT: 24660 x 2 GROSS DESCRIPTION A. Specimen is [...] one cassette for sectioning at embedding. PIERRE HAND PATHOLOGIST Signed Jul 23, 2024@14:14 Performing Laboratory: Surgical Pathology Report Performed By: [facility] [CLIA# [id number]] [address] [place] [address] $FTR - - - - - - [...] - - MARION ZHENG STANDARD FORM 515 ID:[id number] SEX:M :1995 AGE: 28 LOC:[facility] PCP: Rosario Escalera, DO chirag HAND PATHOLOGIST Signed: 07/23/2024 14:14 PAULA HAND [facility] Encounter Notes: All associated encounter notes This section contains the clinical notes associated to the Encounter. Date/Time Encounter Note(s) Provider Source Jul 14, 2024 03:00 PM PASTORAL CARE NOTE : LOCAL TITLE: BAKING ASSISTANT NOTE (T) STANDARD TITLE: PASTORAL CARE NOTE DATE OF NOTE: JUL 14, 2024@15:00 ENTRY DATE: JUL 14, 2024@16:13:39 AUTHOR: BLADIMIR VENCES EXP COSIGNER: URGENCY: STATUS: COMPLETED Néstor logged into [facility] for individual grief support appointment and was open/receptive. Néstor shared various good events/experiences that have happened since previous appointment: 1) feeling a gain in some grounds to work on his physical health (ENT, Spine, etc) 2) noticing his ability to engage in contribution to the family unit when his roommate was out-sick and Himanshu needed that partner to make it all work with home/kids: They needed me . While his roommate is doing much better, néstor noted his shift in mindset 3) reflecting more on his parents always being mad at me...I could never do anything right...the little praise I got was at odd times. [place] noted his ability to praise son Shoaib for the good, very often and rather than yell in times of parenting stress, pause to consider how he wishes his son to think about him in the years to come. 4) getting a dog that will be trained to be a service animal, heeding the idea/recommendation néstor attributes to another provider to have something that is just mine...not connected with the world of [place]. Néstor recalled a dream had long ago of this particular dog breed. became tearful when provider asked him if he can name these above reflections as some strides to celebrate and feel good about. asked, Why can't I be happy of the progress I've made? reflected on the terrible feeling of lina when spouse was . Néstor was receptive to holding these good experiences in his heart even if he couldn't label them as good. Interventions: presence, active listening, reflective questions, meaning making after grief, grief processing, facilitated story sharing, affirmation, coping tools, encouragement, distress tolerance, validation, support. Plan: Néstor requested appointment by [facility] for 07/30/24 @ 3pm. expressed gratitude. /deanna/ CHAPLAIN BLADIMIR CARLIN Signed: 07/14/2024 16:27 BLADIMIR VENCES [facility]
--- OUTSIDE RECORDS SUMMARY | 2024-07-15 11:00 | XMS_ITS ---
Author Name [facility] [place] [facility] Address [address] [place] [address] Care Team Providers Care Technical Marketing Engineer Name Role Phone ROSARIO ESCALERA Primary [...] Type Encounter Description Reason Provider Source Jul 15, 2024 03:00 PM OFFICE O/P EST MOD 30 MIN OTOLARYNGOLOGY/ENT ICD-10-CM J34.2 Deviated nasal septum SIDDHARTHA ESPINAL Sonya Encounter Template Text not used by [place] Assessments - Encounter Diagnoses This section includes the primary and secondary diagnoses documented for the Encounter. Date/Time Primary/Secondary Diagnosis Diagnosis Name Provider Source Jul 15, 2024 04:36 PM PRIMARY Deviated nasal septum SIDDHARTHA ESPINAL [facility] Jul 15, 2024 04:36 PM SECONDARY Hypertrophy of nasal turbinates SIDDHARTHA ESPINAL [facility] Jul 15, 2024 04:36 PM SECONDARY Nasal congestion SIDDHARTHA ESPINAL [facility] Jul 15, 2024 04:36 PM SECONDARY Polyp of nasal cavity SIDDHARTHA ESPINAL [facility] Jul 15, 2024 04:36 PM SECONDARY Unspecified hearing loss, bilateral SIDDHARTHA ESPINAL [facility] Plan of Treatment: Future Appointments (+ 6 months) and Future Tests (+/- 45 days) The Plan of Treatment section includes future care activities for the patient [facility] [place] [facility] This section includes future appointments and future orders which are active, pending or scheduled. Future Appointments This section includes appointments that were scheduled to occur 6 months from the date of the Encounter, up to a maximum of 20 appointments. The data comes from all [place] [facility]. Appointment Date/Time Appointment Type Appointme nt Facility Name Jul 17, 2024 01:00 PM AMBULATORY - SURGERY [facility] Jul 18, 2024 01:00 PM AMBULATORY - PSYCHIATRY [facility] Jul 18, 2024 02:00 PM AMBULATORY - PSYCHIATRY [facility] Jul 21, 2024 09:30 AM AMBULATORY - SURGERY [facility] Jul 25, 2024 02:30 PM AMBULATORY - NONE [facility] Aug 07, 2024 02:00 PM AMBULATORY - PSYCHIATRY CL [facility] Aug 11, 2024 01:30 PM AMBULATORY - SURGERY [facility] Aug 13, 2024 03:30 PM AMBULATORY - PSYCHIATRY CL [facility] Aug 20, 2024 02:00 PM AMBULATORY - SURGERY [facility] Aug 22, 2024 03:00 PM AMBULATORY - PSYCHIATRY CL [facility] Aug 26, 2024 02:30 PM AMBULATORY - NONE [facility] Aug 26, 2024 03:00 PM AMBULATORY - NONE [facility] Aug 27, 2024 02:45 PM AMBULATORY - NONE [facility] Aug 27, 2024 03:00 PM AMBULATORY - PSYCHIATRY CL [facility] Aug 28, 2024 09:30 AM AMBULATORY - PSYCHIATRY CL [facility] Aug 29, 2024 01:30 PM AMBULATORY - PSYCHIATRY CL [facility] Sep 03, 2024 01:00 PM AMBULATORY - PSYCHIATRY CL [facility] Sep 04, 2024 01:00 PM AMBULATORY - NEUROLOGY [facility] Sep 05, 2024 10:00 AM [facility] Sep 25, 2024 01:00 PM AMBULATORY - SURGERY [facility] Lab Results: +/- 30 days of [...] Type Comment Jul 15, 2024 03:49 PM [facility] ALLERGY PANEL, ZONE 8 SERUM Specimen Type: SERUM No comment entered. Ordering Provider: SIDDHARTHA ESPINAL Report Released Date/Time: Jul 15, 2024 03:37 PM Reporting Lab: [address] [address] Performing Lab: [address] [address] DERMATO PTER <0.10 kU/L <0.34 DERMATOPHAGOIDES FARINEA <0.10 kU/L <0.3 4 CAT EPITHELIUM <0.10 kU/L <0.34 DOG EPITHELIUM <0.10 kU/L <0.34 CANDY GRASS <0.10 kU/L <0.34 BAHIA GRASS <0.10 kU/L <0.34 BERMUDA GRASS <0.10 kU/L <0.34 NOVEMBER GRASS ([place] BLUE) <0.10 kU/L <0 .34 COCKROACH, AZERI IgE <0.10 kU/L <0.34 PENICILLIUM NOTATUM <0.10 [...] <0.10 kU/L <0.34 MUGWORT <0.10 kU/L <0.34 BAHAMIAN PLANTAIN <0.10 kU/L <0.34 Jul 15, 2024 03:49 PM [facility] IGE SERUM Specimen Type: SERUM No comment entered. Ordering Provider: SIDDHARTHA ESPINAL Report Released Date/Time: Jul 15, 2024 03:37 PM Reporting Lab: [address] [address] Performing Lab: [address] [address] IGE <21.0 [IU]/mL <99.9 Jun 19, 2024 09:49 AM [facility] LIPID PROFILE PLASMA Specimen Type: PLASMA Comment: [...] Nov 20, 2023 01:30 PM Reporting Lab: [address] [address] Performing Lab: [address] [address] CHOLESTEROL 243 mg/dL H <199 LDL CHOLESTEROL 172 mg/dL H 0-99 HDL CHOLESTEROL 33 mg/dL L >40 TRIGLYCERIDE 284 mg/dL H <149 Jun 19, 2024 09:49 AM [facility] VITAMIN D (TOTAL) SERUM Specimen Type : SERUM No comment entered. Ordering Provider: ROSARIO ESCALERA Report Released Date/Time: Nov 20, 2023 01:30 PM Reporting Lab: [address] [address] Performing Lab: [address] [address] VITAMIN D (TOTAL) 9 ng/mL L 30-60 Jun 19, 2024 09:49 AM [facility] MAGNESIUM PLASMA Specimen Type: PLASMA Comment: DLDLREF [...] Nov 20, 2023 01:30 PM Reporting Lab: [address] [address] Performing Lab: [address] [address] MAGNESIUM 2.2 mg/dL 1.6-2.6 Jun 19, 2024 09:49 AM [facility] COMPREHENSIVE METABOLIC PANEL PLASMA S pecimen Type: [...] Nov 20, 2023 01:30 PM Reporting Lab: [address] [address] Performing Lab: [address] [address] ALBUMIN 4.8 g/dL 3.5-4.8 ALKALINE PHOSPHATASE 73 [...] 104.0 mL/min Jun 19, 2024 09:49 AM [facility] TSH PLASMA Specimen Type: PLASMA Comment: DLDLREF [...] Nov 20, 2023 01:30 PM Reporting Lab: [address] [address] Performing Lab: [address] [address] TSH 4.701 u[IU]/mL 0.350-4.940 Jun 19, 2024 09:49 AM [facility] CBC BLOOD Specimen Type: BLOOD Comment: Manual Differential Performed. RBC and PLT morphology reviewed Slide reviewed for lymphocytosis Ordering Provider: ROSARIO ESCALERA Report Released Date/Time: Nov 20, 2023 01:30 PM Reporting Lab: [address] [address] Performing Lab: [address] [address] WBC COUNT 14.7 10*3/uL H 3.6-11.0 RBC [...] 11:30 AM VA-TOBACCO USE EVERY DAY CIGARET [facility] Tobacco Use History This section includes a history of the smoking, or tobacco-related health factors, that were collected on or before the date of the Encounter. The data comes from the [place] facility where the Encounter took place. Date/Time Smoking Status/Tobacco Use Comment F acility Jun 06, 2024 11:30 AM VA-TOBACCO USE ADVICE [facility] Jun 06, 2024 11:30 AM VA-TOBACCO USE RIPSAW MATCHER NO [facility] Jun 06, 2024 11:30 AM VA-TOBACCO USE EVERY DAY CIGARET MANNY [facility] Jun 06, 2024 11:30 AM VA-TOBACCO USE EVERY DAY ENDS [facility] Jun 06, 2024 11:30 AM VA-TOBACCO USE EVERY DAY OTHER T YPE [facility] Jun 06, 2024 11:30 AM VA-TOBACCO USE MED [facility] Jun 19, 2023 10:00 AM TOBACCO FORMER USER MORE 12 LEONEL [facility] Advance Directives: All historical and current [...] CT TEMPORAL NICKIE NE W/O CONTRAST : ILGMARION [id number] -1995 M Exm Date: JUL 25, 2024@14:35 Req Phys: SIDDHARTHA ESPINAL Loc: [facility] DIGITAL CONTENT COORDINATOR 1 (Req'g Loc) Img Loc: [address] Service: [place] [address] (Case [id number] COMPLETE)STEALTH FESS CT (CT Detailed) CPT:69292 Reason for Study: conductive hearing loss Clinical History: [address] [address] Report Status: Verified Date Reported: JUL 28, 2024 Date Verified: JUL 28, 2024 Boom Stick Man E-Sig:/ES/KULDIP MCELROY Report: CT OF PARANASAL AIR [...] fat and lacrimal glands normal . Bony sheth of the paranasal air sinuses are normal [...] Code: Primary Interpreting Staff: KULDIP MCELROY, RADIOLOGIST (Boom Stick Man) /KULDIP WHITAKER [facility] Jul 25, 2024 02:[address] TEMPORAL BONE W /O CONTRAST: MARCEMARION ISAI [id number] -1995 M Exm Date: JUL 25, 2024@14:34 Req Phys: SIDDHARTHA ESPINAL Loc: [facility] DIGITAL CONTENT COORDINATOR 1 (Req'g Loc) Img Loc: [address] CT Service: [place] [address] (Case [id number] COMPLETE)CT TEMPORAL BONE W/O CONTRAST (CT Detailed) CPT:52620 Reason for Study: chronic congestion, right nasal obstruction Clinical History: Report Status: Verified Date Reported: JUL 28, 2024 Date Verified: JUL 28, 2024 Boom Stick Man E-Sig:/ES/KULDIP MCELROY Report: CT TEMPORAL BONE , [...] Code: Primary Interpreting Staff: KULDIP MCELROY, RADIOLOGIST (Boom Stick Man) /KULDIP WHITAKER [facility] Pathology Reports: +/- 30 [...] comes from all [place] treatment facilities. Date/Time Pathology Report Provider Source [...] - $TEXT Submitted by: JUAN PABLO PRIETO obtained: Jul 21, 2024 - - - [...] OF VAS DEFERENS, COMPLETELY TRANSECTED LUMEN. CPT: 59944 x 2 GROSS DESCRIPTION A. Specimen is [...] Performing Laboratory: Surgical Pathology Report Performed By: [facility] [CLIA# [id number]] [address] [place] [address] $FTR - - - - - - [...] - - MARION ZHENG STANDARD FORM 515 ID:[id number] SEX:M :1995 AGE: 28 LOC:[facility] PCP: Rosario Escalera DO /deanna/ PAULA HAND PATHOLOGIST Signed: 07/23/2024 14:14 PAULA HAND [facility] Encounter Notes: All associated encounter notes This section contains the clinical notes associated to the Encounter. Date/Time Encounter Note(s) Provider Source Jul 15, 2024 03:42 PM OTOLARYNGOLOGY OUT PATIENT NOTE: LOCAL TITLE: ENT OUTPATIENT CLINIC NOTE STANDARD TITLE: OTOLARYNGOLOGY OUTPATIENT NOTE DATE OF NOTE: JUL 15, 2024@15:42 ENTRY DATE: JUL 15, 2024@15:42:56 AUTHOR: SIDDHARTHA ESPINAL COSIGNER: URGENCY: STATUS: COMPLETED ENT OUTPATIENT CLINIC NOTE Has ADDENDA I am the Staff Provider. MEDICATION RECONCILIATION MEDICATION RECONCILIATION REPORT reviewed and [...] review of records, exam, and placing orders. CC: Consult for nasal congestion and deviated septum HPI: 28-year-old male referred to the ENT clinic for deviated septum and chronic nasal congestion. Patient had a tonsillectomy in June [address] Garcia. He states for period of time after a tonsillectomy he felt that his breathing was better however nasal congestion returned. He has a history of nasal trauma as a child and never had any surgical repair. He states he has tried [id number] oral antihistamines, multiple nasal sprays and decongestants with minimal relief. He also complains of left ear fullness which improves with auto insufflation. Patient has not had a recent hearing test and he does not wear hearing aids. He has never been tested for seasonal allergies. He denies any burn pit exposure. His most recent sinus infection requiring antibiotics was 6 months ago. He denies any otalgia or otorrhea. He denies any dysphagia, dysphonia, throat pain or hemoptysis. He denies any other ENT complaints. Review of Systems: a 14-point ROS completed, pertinent positives and negatives as per HPI. PMH/PSH: reviewed in CPRS Hx of ENT related surgeries: Tonsillectomy Family ENT history: Reviewed and Social history: Smoking: Uses a vape Alcohol: Denies Illicit: Denies Allergies: reviewed in CPRS Medications: reviewed in CPRS Physical Exam: Focused ENT exam GENERAL: Appears well developed, well nourished RESPIRATION: Breathing comfortably on room air, no stridor CV: No clubbing/cyanosis/edema in hands EYES: EOM Intact, sclera normal NEURO: AAOx3, Cranial nerves 2-12 intact and symmetric bilaterally HEAD AND FACE: Skin with no masses or lesions, sinuses nontender to palpation SALIVARY GLANDS: Parotid and submandibular glands normal bilaterally EARS: no pinna, tragal or mastoid tenderness b/l, Right ear: Free and clear of cerumen or keratinous debris, skin of the EAC is intact without lesions or masses, TM is mobile without effusion Left ear: Free and clear of cerumen or keratinous debris, skin of the EAC is intact without lesions or masses, TM is mobile without effusion NOSE: External nose deviates to the left, bilateral erythemic and hypertrophic turbinates Rinne: BC>AC on the right Storey: Lateralizes to the right ORAL CAVITY/OROPHARYNX/LIPS: Normal mucous membranes, normal floor of mouth/tongue/OP, tongue is soft and mobile, no trismus, no masses or lesions are noted, dentition in good repair PHARYNGEAL SHETH AND NASOPHARYNX: No masses noted. NECK/LYMPH: No LAD, no thyroid masses Procedures: Flexible nasolaryngoscope was recorded and performed after verbal consent was obtained by the patient. Both nostrils were sprayed with a mixture of lidocaine 4% and phenylephrine 1%. After a sufficient amount of time elapsed for mucosal anesthesia to take place, the flexible nasal laryngoscope was advanced into the right and left nares. The following areas were visualized: Nasal passage made, nasal septum and turbinates were visualized and examined for pathology. The patient tolerated the procedure well. 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 Patient had a tonsillectomy in June [address] Garcia. He states for period of time after a tonsillectomy he felt that his breathing was better however nasal congestion returned. He has a history of nasal trauma as a child and never had any surgical repair. He states he has tried [id number] oral antihistamines, multiple nasal sprays and decongestants with minimal relief. He also complains of left ear fullness which improves with auto insufflation. Patient has not had a recent hearing test and he does not wear hearing aids. He has never been tested for seasonal allergies. He denies any burn pit exposure. His most recent sinus infection requiring antibiotics was 6 months ago. He denies any otalgia or otorrhea. He denies any dysphagia, dysphonia, throat pain or hemoptysis. Plan: -I ordered a CT temporal bones to evaluate for conductive hearing loss, I will discuss results with the patient when they are available -I ordered a CT stealth to evaluate nasal congestion and right nasal cavity obstruction, I will discuss results with patient when they are available -I ordered allergy testing to see if this is contributing to the chronic congestion -Patient will start using NeilMed sinus rinse, Flonase nasal spray and saline nasal spray daily for chronic congestion, he was given verbal instructions on use of these medicines -Patient will schedule baseline hearing test with audiology -Patient will return to the clinic for follow-up in a month when Dr. Feldman is the clinic to discuss possible surgical procedures and to evaluate the right nasal cavity mass This electronic medical record note was created using voice recognition software. Despite proofreading, typographical or grammatical errors may be present that may affect the meaning of this content. Please call with any questions. /deanna/ SIDDHARTHA ESPINAL NURSE PRACTITIONER Signed: 07/15/2024 16:36 08/07/2024 ADDENDUM STATUS: COMPLETED I spoke with the patient regarding his CT temporal bones and CT stealth results. The plan is to have him follow-up as scheduled in the ENT clinic on a day when Dr. Feldman is in the clinic to evaluate the right nasal obstruction mass mass. Patient did not have any further questions. /deanna/ SIDDHARTHA ESPINAL NURSE PRACTITIONER Signed: 08/07/2024 17:11 SIDDHARTHA ESPINAL [facility]
--- OUTSIDE RECORDS SUMMARY | 2024-07-17 09:00 | XMS_ITS | Encounter Summary ---
Author Name [facility] [place] Address [address] [place] [address] Care Team Providers Care Telecommunications Repairer Name Role Phone ROSARIO ESCALERA Primary Care [...] section includes the information on record at [place] for the Encounter. Date/Time Encounter Type Encounter Description Reason Provider Source Jul 17, 2024 01:00 PM OFF/OP CNSLTJ NEW/EST LOW 30 NEUROSURGERY ICD-10-CM M54.2 Cervicalgia ROHAN VINSON E Encounter Template Text not used by [place] Assessments - Encounter Diagnoses This section includes the primary and secondary diagnoses documented for the Encounter. Date/Time Primary/Secondary Diagnosis Diagnosis Name Provider Source Jul 17, 2024 01:44 PM PRIMARY CervicalQUETA Marquis [facility] Plan of Treatment: Future Appointments (+ 6 months) and Future Tests (+/- 45 days) The Plan of Treatment section includes future care activities for the patient from all [place] treatmentfacilities. This section includes future appointments and future orders which are active, pending or scheduled. Future Appointments This section includes appointments that were scheduled to occur 6 months from the date of the Encounter, up to a maximum of 20 appointments. The data comes from all [facility]. Appointment Date/Time Appointment Type Appointme nt Facility Name Jul 18, 2024 01:00 PM AMBULATORY - PSYCHIATRY CL [facility] Jul 18, 2024 02:00 PM AMBULATORY - PSYCHIATRY [facility] Jul 21, 2024 09:30 AM AMBULATORY - SURGERY [facility] Jul 25, 2024 02:30 PM AMBULATORY - NONE [facility] Aug 07, 2024 02:00 PM AMBULATORY - PSYCHIATRY [facility] Aug 11, 2024 01:30 PM AMBULATORY - SURGERY [facility] Aug 13, 2024 03:30 PM AMBULATORY - PSYCHIATRY [facility] Aug 20, 2024 02:00 PM AMBULATORY - SURGERY [facility] Aug 22, 2024 03:00 PM AMBULATORY - PSYCHIATRY CL [facility] Aug 26, 2024 02:30 PM AMBULATORY - NONE [facility] Aug 26, 2024 03:00 PM [facility] NONE [facility] Aug 27, 2024 02:45 PM AMBULATORY - NONE [facility] Aug 27, 2024 03:00 PM AMBULATORY - PSYCHIATRY [facility] Aug 28, 2024 09:30 AM AMBULATORY - PSYCHIATRY [facility] Aug 29, 2024 01:30 PM AMBULATORY - PSYCHIATRY [facility] Sep 03, 2024 01:00 PM AMBULATORY - PSYCHIATRY [facility] Sep 04, 2024 01:00 PM AMBULATORY - NEUROLOGY [facility] Sep 05, 2024 10:00 AM AMBULATORY - NONE [facility] Sep 25, 2024 01:00 PM AMBULATORY - SURGERY [facility] Oct 03, 2024 01:00 PM AMBULATORY - REHAB MEDICIN E [facility] Lab Results: +/- 30 days of the encounter This section includes the Chemistry and Hematology Lab Results on record with [place] for the patient. Radiology Reports and Pathology Reports are provided separately, in subsequent sections. Lab Results This section contains the Chemistry/Hematology Results that were resulted 30 days before or 30 daysafter the date of the Encounter. Date/Time Source Result Type Result - Unit Interpretation Reference Range Specimen Type Comment Jul 15, 2024 03:49 PM [facility] ALLERGY PANEL, ZONE 8 SERUM Specimen Type: SERUM No comment entered. Ordering Provider: SIDDHARTHA ESPINAL Report Released Date/Time: Jul 15, 2024 03:37 PM Reporting Lab: [address] [address] Performing Lab: [address] [address] DERMATO PTER <0.10 kU/L <0.34 DERMATOPHAGOIDES FARINEA <0.10 kU/L <0.3 4 CAT EPITHELIUM <0.10 kU/L <0.34 DOG EPITHELIUM <0.10 kU/L <0.34 CANDY GRASS <0.10 kU/L <0.34 BAHIA GRASS <0.10 kU/L <0.34 BERMUDA GRASS <0.10 kU/L <0.34 NOVEMBER GRASS ([place] BLUE) <0.10 kU/L <0 .34 COCKROACH, TAMAZIGHT IgE <0.10 kU/L <0.34 PENICILLIUM NOTATUM <0.10 [...] <0.10 kU/L <0.34 MUGWORT <0.10 kU/L <0.34 BURMESE PLANTAIN <0.10 kU/L <0.34 Jul 15, 2024 03:49 PM [facility] IGE SERUM Specimen Type: SERUM No comment entered. Ordering Provider: SIDDHARTHA ESPINAL Report Released Date/Time: Jul 15, 2024 03:37 PM Reporting Lab: [address] [address] Performing Lab: [address] [address] IGE <21.0 [IU]/mL <99.9 Jun 19, 2024 09:49 AM [facility] LIPID PROFILE PLASMA Specimen Type: [...] 20, 2023 01:30 PM Reporting Lab: [address] [address] Performing Lab: [address] [address] CHOLESTEROL 243 mg/dL H <199 LDL CHOLESTEROL 172 mg/dL H 0-99 HDL CHOLESTEROL 33 mg/dL L >40 TRIGLYCERIDE 284 mg/dL H <149 Jun 19, 2024 09:49 AM [facility] VITAMIN D (TOTAL) SERUM Specimen Type : SERUM No comment entered. Ordering Provider: ROSARIO ESCALERA Report Released Date/Time: Nov 20, 2023 01:30 PM Reporting Lab: [address] [place] [address] Performing Lab: [address] [address] VITAMIN D (TOTAL) 9 ng/mL L 30-60 Jun 19, 2024 09:49 AM [facility] MAGNESIUM PLASMA Specimen Type: PLASMA Comment: [...] 20, 2023 01:30 PM Reporting Lab: [address] [address] Performing Lab: [address] [address] MAGNESIUM 2.2 mg/dL 1.6-2.6 Jun 19, 2024 09:49 AM [facility] COMPREHENSIVE METABOLIC PANEL PLASMA S [...] 20, 2023 01:30 PM Reporting Lab: [address] [address] Performing Lab: [address] [address] ALBUMIN 4.8 g/dL 3.5-4.8 ALKALINE PHOSPHATASE 73 [...] 104.0 mL/min Jun 19, 2024 09:49 AM [facility] TSH PLASMA Specimen Type: PLASMA Comment: [...] 20, 2023 01:30 PM Reporting Lab: [address] [address] Performing Lab: [address] [address] TSH 4.701 u[IU]/mL 0.350-4.940 Jun 19, 2024 09:49 AM [facility] CBC BLOOD Specimen Type: BLOOD Comment: Manual Differential Performed. RBC and PLT morphology reviewed Slide reviewed for lymphocytosis Ordering Provider: ROSARIO ESCALERA Report Released Date/Time: Nov 20, 2023 01:30 PM Reporting Lab: [address] [address] Performing Lab: [address] [address] WBC COUNT 14.7 10*3/uL H 3.6-11.0 RBC [...] Height Weight Body Mass Index Source Jul 17, 2024 12:52 PM 97.3 78 135/95 16 96 0 171.6 25 [facility] Social History: Smoking Status (Most current) and Tobacco Use (All prior to encounter date) This section includes the most current, and the historical, smoking and tobacco- related health factors from the [place] facility where the Encounter took place. Current Smoking Status This section includes the most current smoking, or tobacco-related health factor, from the [place] facility where the Encounter took place. Date/Time Current Smoking Status Comment Facil ity Jun 06, 2024 11:30 AM [place]-TO[facility]ACCO USE EVERY DAY [facility] Tobacco Use History This section includes a history of the smoking, or tobacco-related health factors, that were collected on or before the date of the Encounter. The data comes from the [place] facility where the Encounter took place. Date/Time Smoking Status/Tobacco Use Comment F acility Jun 06, 2024 11:30 AM VA-TOBACCO USE ADVICE [facility] Jun 06, 2024 11:30 AM VA-TOBACCO USE POLITICAL ANALYST NO [facility] Jun 06, 2024 11:30 AM VA-TOBACCO USE EVERY DAY CIGARET MANNY [facility] Jun 06, 2024 11:30 AM VA-TOBACCO USE EVERY DAY ENDS [facility] Jun 06, 2024 11:30 AM VA-TOBACCO USE EVERY DAY OTHER T YPE [facility] Jun 06, 2024 11:30 AM VA-TOBACCO USE MED [facility] Jun 19, 2023 10:00 AM TOBACCO FORMER USER MORE 12 [facility] Advance Directives: All historical and current Section Date Range: From patient's date of to the date document was created. This section includes ALL of a patient's completed or amended [place] Advance and Rescinded Directives. The entries below indicate that a directive exists for the patient, but an actual copy is not included with this document. The data comes from all [place] facilities. Date Advance Directives Provider Source October 22, 2023 ADVANCE DIRECTIVE DISCUSSION SABINA NA[facility] Radiology Reports: +/- 30 days of the [...] the Encounter. The data comes from all [place] treatment facilities. Date/Time Radiology Report Provider Source Jul 25, 2024 02:35 PM P/D CT TEMPORAL NICKIE NE W/O CONTRAST : MARION SANTACRUZ [id number] -1995 M Exm Date: JUL 25, 2024@14:35 Req Phys: SIDDHARTHA ESPINAL Loc: [facility] SALES REPRESENTATIVE [employer] (Req'g Loc) Img Loc: [facility] [place] Service: [place] [address] (Case [id number] COMPLETE)[facility] CT (CT Detailed) CPT:19840 Reason for Study: conductive hearing loss Clinical History: [address] [id number] Report Status: Verified Date Reported: JUL 28, 2024 Date Verified: JUL 28, 2024 Press Breaker E-Sig:/ES/KULDIP MCELROY Report: CT [facility] [place] [facility] [...] Code: Primary Interpreting Staff: KULDIP MCELROY, RADIOLOGIST (Press Breaker) /KULDIP WHITAKER CB Jul 25, 2024 02:[address] TEMPORAL BONE W /O CONTRAST: MARION SANTACRUZ [id number] -1995 M Exm Date: JUL 25, 2024@14:34 Req Phys: SIDDHARTHA ESPINAL Loc: [facility] SALES REPRESENTATIVE [employer] (Req'g Loc) Img Loc: [place] CT Service: [place] [address] (Case [id number] COMPLETE)CT TEMPORAL BONE W/O CONTRAST (CT Detailed) CPT:93095 Reason for Study: chronic congestion, right nasal obstruction Clinical History: Report Status: Verified Date Reported: JUL 28, 2024 Date Verified: JUL 28, 2024 Press Breaker E-Sig:/ES/KULDIP MCELROY Report: CT TEMPORAL BONE , [...] Code: Primary Interpreting Staff: KULDIP MCELROY, RADIOLOGIST (Press Breaker) /KULDIP WHITAKER [facility] Pathology Reports: +/- 30 [...] the Encounter. The data comes from all [place] treatment facilities. Date/Time Pathology Report Provider Source Jul 23, 2024 02:14 PM LR SURGICAL PATHOL OGY REPORT: LOCAL TITLE: LR SURGICAL PATHOLOGY REPORT STANDARD TITLE: PATHOLOGY REPORT DATE OF NOTE: JUL 23, 2024@14:14:05 ENTRY DATE: JUL 23, 2024@14:14:05 AUTHOR: PAULA HAND EXP CARIGNER: URGENCY: STATUS: COMPLETED $APHDR - - - [...] OF VAS DEFERENS, COMPLETELY TRANSECTED LUMEN. CPT: 26472 x 2 GROSS DESCRIPTION A. Specimen is [...] Performing Laboratory: Surgical Pathology Report Performed By: [facility] [CLIA# [id number]] [address] [place] [address] $FTR - - - - - - [...] - - - - - - MARION SANTACRUZ STANDARD FORM 515 ID:[id number] SEX:M :1995 AGE: 28 LOC:[facility] PCP: Rosario Escalera DO /deanna/ PAULA HAND PATHOLOGIST Signed: 07/23/2024 14:14 PAULA HAND [facility] Encounter Notes: All associated encounter notes This section contains the clinical notes associated to the Encounter. Date/Time Encounter Note(s) Provider Source Jul 17, 2024 01:30 PM NEUROSURGERY CONSU LT: LOCAL TITLE: SPINE NEUROSURGERY CONSULTATION NOTE (C) STANDARD TITLE: NEUROSURGERY CONSULT DATE OF NOTE: JUL 17, 2024@13:30 ENTRY DATE: JUL 17, 2024@13:30:58 AUTHOR: QUETA VINSON COSIGNER: URGENCY: STATUS: COMPLETED I am the Attending Physician. I had the opportunity to meet with Mr. Santacruz today in consultation. He is a delightful 28 year old right handed gentleman who presents reporting long- standing neck pain with occasional numbness and tingling along the 3rd, 4th and 5 digits in addition to noting a change in his right hand dexterity. Mr. Santacruz had a cervical MRI in April, which prompted this consultation. He denies recent injury, illness, fever, chills, nausea, vomiting, gait imbalance and change in bowel/bladder function. 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 Hereditary spherocytosis 05/21/2023 FH: Migraine 05/21/2023 Depression 04/13/2023 Chronic post-traumatic stress disorder 02/09/2023 Insomnia 02/09/2023 Surgery Date: 06/19/2023 Operative Proc(s): 21 BILATERAL TONSILLECTOMY - EAR AND THROAT EXAMINATION Active Outpatient Medications (including Supplies): Active Outpatient Medications Status 1) AMITRIPTYLINE HCL 10MG TAB TAKE 1 TO 2 TABLETS BY ACTIVE MOUTH AT BEDTIME NEEDED FOR SLEEP 2) ATORVASTATIN CALCIUM 10MG TAB TAKE ONE TABLET BY ACTIVE MOUTH EVERY DAY 3) BUSPIRONE HCL 10MG TAB TAKE ONE TABLET BY MOUTH AT ACTIVE BEDTIME FOR 3 DAYS, THEN TAKE ONE TABLET TWICE A DAY FOR REPEATED EPISODES OF ANXIETY (WITH FOOD) 4) CHOLECALCIF 25MCG (D3-1,000UNIT) TAB TAKE THREE ACTIVE TABLETS BY MOUTH EVERY DAY FOR VITAMIN D DEFICIENCY 5) DIVALPROEX 500MG 24HR (ER) SA TAB TAKE ONE TABLET BY ACTIVE MOUTH AT BEDTIME 6) FLUTICASONE PROP 50MCG 120D NASAL INHL USE 2 SPRAYS ACTIVE IN EACH NOSTRIL EVERY DAY 7) SERTRALINE HCL 50MG TAB TAKE ONE TABLET BY MOUTH ACTIVE (S) EVERY DAY 8) SINUS RINSE NEILMED PKT USE 1 PKT EACH NOSTRIL EVERY ACTIVE DAY NASAL CONGESTION ; MIX WITH 8 OZS OF WARM DISTILLED WATER DIRECTED 9) SINUS RINSE NEILMED REGULAR KIT USE 1 KIT EACH ACTIVE NOSTRIL EVERY DAY NASAL CONGESTION MIX WITH 8 OZS OF WARM DISTILLED WATER DIRECTED. 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 Santacruz is a well developed, well nourished gentleman in no apparent distress. He is pleasant and cooperative during our office visit. HEENT: Normocephalic/atraumatic; sclerae - anicteric, conjunctivae - pink, moist; chronic cough noted; no nasal discharge noted; vocal quality is appropriate Skin: Multiple tattoos noted along the forearms; no poorly healing lesions or rashes noted Musculoskeletal: focal tenderness is noted along the top of the trapezius right> left; slight thinning noted along the right thenar eminence and 1st dorsal interosseus compared to the left; great cervical range of motion demonstrated Neuro examination: Mr. Santacruz is alert, awake and oriented x 3. He demonstrates fluent, appropriate speech No obvious cranial neuropathies noted Motor examination: 5/5 bilaterally Sensory exam: hypersensitive along the right forearm (radial) compared to the left DTR's 1+ bilaterally +irritability at the right carpal tunnel and cubital tunnel - Daniel's - L'Hermitte's Gait: steady, unassisted and fluid Able to demonstrate tandem gait Intact Romberg Assessment: I personally reviewed Mr. Santacruz's cervical spine films and MRI and shared the images with him. His films demonstrate a reversal of the cervical lordosis. There is no instability noted on dynamic films. His cervical MRI demonstrates a right sided disc bulge at C6-7 that does not cause significant nerve root compression. Impression: Mr. Santacruz has had a long history of neck pain in addition to some sensory symptoms that may be secondary to median and ulnar nerve irritability therefore, I have recommended he undergo electrodiagnostic testing of the right upper extremity for further evaluation. Upon review of the report, I will notify Mr. Santacruz with the results and my recommendations. I reviewed the aforementioned with him and answered his questions to his satisfaction. /deanna/ QUETA VINSON NEUROSURGEON Signed: 07/17/2024 13:44 QUETA VINSON [facility]
--- OUTSIDE RECORDS SUMMARY | 2024-07-18 07:50 | XMS_ITS | Encounter Summary ---
Author Name [facility] [place] Organization [place] Address [address] [place] [address] Care Team Providers Care Clinical Data Management Manager Name Role Phone ROSARIO ESCALEAR Primary Care Provider [facility] Insurance Providers: [...] Type Encounter Description Reason Pro vider Source Jul 18, 2024 11:50 AM Outpatient Encounter PATIENT CARE IN OR E Encounter Template Text not used by [place] Plan of Treatment: Future Appointments (+ 6 months) and Future Tests (+/- 45 days) The Plan of Treatment section includes future care activities for the patient from all [place] treatmentfacilities. This section includes future appointments and future orders which are active, pending or scheduled. Future Appointments This section includes appointments that were scheduled to occur 6 months from the date of the Encounter, up to a maximum of 20 appointments. The data comes from all [place] treatment facilities. Appointment Date/Time Appointment Type Appointme nt Facility Name Jul 21, 2024 09:30 AM AMBULATORY - SURGERY [facility] Jul 25, 2024 02:30 PM AMBULATORY - NONE [facility] Aug 07, 2024 02:00 PM AMBULATORY - PSYCHIATRY [facility] Aug 11, 2024 01:30 PM AMBULATORY - SURGERY [facility] Aug 13, 2024 03:30 PM AMBULATORY - PSYCHIATRY [facility] Aug 20, 2024 02:00 PM AMBULATORY - SURGERY [facility] Aug 22, 2024 03:00 PM AMBULATORY - PSYCHIATRY CL [facility] Aug 26, 2024 02:30 PM AMBULATORY - NONE [facility] Aug 26, 2024 03:00 PM [facility] Aug 27, 2024 02:45 PM AMBULATORY - NONE [facility] Aug 27, 2024 03:00 PM AMBULATORY - PSYCHIATRY [facility] Aug 28, 2024 09:30 AM AMBULATORY - PSYCHIATRY [facility] Aug 29, 2024 01:30 PM AMBULATORY - PSYCHIATRY [facility] Sep 03, 2024 01:00 PM AMBULATORY - PSYCHIATRY [facility] Sep 04, 2024 01:00 PM AMBULATORY - NEUROLOGY [facility] Sep 05, 2024 10:00 AM AMBULATORY - NONE [facility] Sep 25, 2024 01:00 PM AMBULATORY - SURGERY [facility] Oct 03, 2024 01:00 PM AMBULATORY - REHAB MEDICIN E [facility] October 21, 2024 03:00 PM AMBULATORY - PSYCHIATRY [facility] November 03, 2024 02:30 PM AMBULATORY - PSYCHIATRY [facility] Lab Results: +/- 30 days of [...] Type Comment Jul 15, 2024 03:49 PM [facility] ALLERGY PANEL, ZONE 8 SERUM Specimen Type: SERUM No comment entered. Ordering Provider: SIDDHARTHA ESPINAL Report Released Date/Time: Jul 15, 2024 03:37 PM Reporting Lab: [facility] [id number] [place] [phone] Performing Lab: [facility] [id number] [place] [phone] DERMATO PTER <0.10 kU/L <0.34 DERMATOPHAGOIDES FARINEA <0.10 kU/L <0.3 4 CAT EPITHELIUM <0.10 kU/L <0.34 DOG EPITHELIUM <0.10 kU/L <0.34 CANDY GRASS <0.10 kU/L <0.34 BAHIA GRASS <0.10 kU/L <0.34 BERMUDA GRASS <0.10 kU/L <0.34 NOVEMBER GRASS ([place] BLUE) <0.10 kU/L <0 .34 COCKROACH, NEPALI IgE <0.10 kU/L <0.34 PENICILLIUM NOTATUM <0.10 [...] <0.10 kU/L <0.34 MUGWORT <0.10 kU/L <0.34 TUNISIAN PLANTAIN <0.10 kU/L <0.34 Jul 15, 2024 03:49 PM [facility] IGE SERUM Specimen Type: SERUM No comment entered. Ordering Provider: SIDDHARTHA ESPINAL Report Released Date/Time: Jul 15, 2024 03:37 PM Reporting Lab: [address] [address] Performing Lab: [address] [address] IGE <21.0 [IU]/mL <99.9 Jun 19, 2024 09:49 AM [facility] LIPID PROFILE PLASMA Specimen Type: PLASMA [...] Nov 20, 2023 01:30 PM Reporting Lab: [address] [address] Performing Lab: [address] [address] CHOLESTEROL 243 mg/dL H <199 LDL CHOLESTEROL 172 mg/dL H 0-99 HDL CHOLESTEROL 33 mg/dL L >40 TRIGLYCERIDE 284 mg/dL H <149 Jun 19, 2024 09:49 AM [facility] MAGNESIUM PLASMA Specimen Type: PLASMA Comment: [...] Nov 20, 2023 01:30 PM Reporting Lab: [place] [phone] Performing Lab: [place] [phone] MAGNESIUM 2.2 mg/dL 1.6-2.6 Jun 19, 2024 09:49 AM [facility] VITAMIN D (TOTAL) SERUM Specimen Type : SERUM No comment entered. Ordering Provider: ROSARIO ESCALERA Report Released Date/Time: Nov 20, 2023 01:30 PM Reporting Lab: [address] [address] Performing Lab: [place] [phone] VITAMIN D (TOTAL) 9 ng/mL L 30-60 Jun 19, 2024 09:49 AM [facility] TSH PLASMA Specimen Type: PLASMA Comment: [...] Nov 20, 2023 01:30 PM Reporting Lab: [address] [address] Performing Lab: [address] [address] TSH 4.701 u[IU]/mL 0.350-4.940 Jun 19, 2024 09:49 AM [facility] COMPREHENSIVE METABOLIC PANEL PLASMA S pecimen [...] Nov 20, 2023 01:30 PM Reporting Lab: [address] [address] Performing Lab: [address] [address] ALBUMIN 4.8 g/dL 3.5-4.8 ALKALINE PHOSPHATASE 73 [...] Jun 19, 2024 09:49 AM [facility] CBC BLOOD Specimen Type: BLOOD Comment: Manual Differential Performed. RBC and PLT morphology reviewed Slide reviewed for lymphocytosis Ordering Provider: ROSARIO ESCALERA Report Released Date/Time: Nov 20, 2023 01:30 PM Reporting Lab: [address] [address] Performing Lab: [address] [address] WBC COUNT 14.7 10*3/uL H 3.6-11.0 RBC [...] ADVANCE DIRECTIVE DISCUSSION SABINA NAIR [facility] Radiology Reports: +/- [...] NICKIE NE W/O CONTRAST : MARION ZHENG [id number] -1995 M Exm Date: JUL 25, 2024@14:35 Req Phys: SIDDHARTHA ESPINAL Pat Loc: [facility] E[facility] BUTCHER SCULLION 1 (Req'g Loc) Img Loc: [place] Service: [place] [address] (Case [id number] COMPLETE)[facility] CT (CT Detailed) CPT:71613 Reason for Study: conductive hearing loss Clinical History: [address] [id number] Report Status: Verified Date Reported: JUL 28, 2024 Date Verified: JUL 28, 2024 Sfdc Architect E-Sig:/ES/KULDIP MCELROY Report: CT OF [place] [...] Code: Primary Interpreting Staff: KULDIP MCELROY, RADIOLOGIST (Sfdc Architect) /KULDIP WHITAKER [facility] Jul 25, 2024 02:[address] TEMPORAL BONE W /O CONTRAST: MARION ZHENG [id number] -1995 M Exm Date: JUL 25, 2024@14:34 Req Phys: SIDDHARTHA ESPINAL Loc: [facility] BUTCHER SCULLION 1 (Req'g Loc) Img Loc: [place] CT Service: [place] [address] (Case [id number] COMPLETE)CT TEMPORAL BONE W/O CONTRAST (CT Detailed) CPT:99179 Reason for Study: chronic congestion, right nasal obstruction Clinical History: Report Status: Verified Date Reported: JUL 28, 2024 Date Verified: JUL 28, 2024 Sfdc Architect E-Sig:/ES/KULDIP MCELROY Report: CT TEMPORAL BONE , [...] Code: Primary Interpreting Staff: KULDIP MCELROY, RADIOLOGIST (Sfdc Architect) /KULDIP WHITAKER [facility] Pathology Reports: +/- 30 [...] the Encounter. The data comes from all [facility] facilities. Date/Time Pathology Report Provider Source Jul [...] OF VAS DEFERENS, COMPLETELY TRANSECTED LUMEN. CPT: 44550 x 2 GROSS DESCRIPTION A. Specimen is [...] Performing Laboratory: Surgical Pathology Report Performed By: [facility] [CLIA# [id number]] [address] [place] [address] $FTR - - - - - - [...] - - MARION ZHENG STANDARD FORM 515 ID:[id number] SEX:M :1995 AGE: 28 LOC:[facility] PCP: Rosario Escalera DO /deanna/ PAULA HAND PATHOLOGIST Signed: 07/23/2024 14:14 PAULA HAND [facility] Encounter Notes: All associated encounter notes This section contains the clinical notes associated to the Encounter. Date/Time Encounter Note(s) Provider Source Jul 18, 2024 11:50 AM TELEPHONE ENCOUNTER NOTE: LOCAL TITLE: SURGERY CENTER PRE/POST PROCEDURE TELEPHONE NOTE (T STANDARD TITLE: TELEPHONE ENCOUNTER NOTE DATE OF NOTE: JUL 18, 2024@11:50 ENTRY DATE: JUL 18, 2024@11:51:30 AUTHOR: SRIKANTH ABREU COSIGNER: URGENCY: STATUS: COMPLETED Nurse spoke to the patient. Arrival time of 0845 given. Patient verbalizes understanding of local anesthesia instructions. Pre-procedure education/instruction: Procedure explained to patient: Other: Vasectomy Preparation reviewed with patient: Not applicable Medications to be stopped prior to procedure None Instructed patient not to drive for 24 hours post procedure Patient may drive self to appointment. (Procedure does not require sedation) Discussed accommodations Accommodations are not needed Adequately explains critical information about the topic Does patient have a Pacemaker/Defibrillator? Marry /deanna/ SRIKANTH ABREU REGISTERED NURSE Signed: 07/18/2024 11:53 SRIKANTH ABREU [facility]
--- OUTSIDE RECORDS SUMMARY | 2024-07-18 09:00 | XMS_ITS | Encounter Summary ---
Author Name [facility] [place] Organization [place] Address [address] [place] [address] Care Team Providers Care Bottle Capper Name Role Phone ROSARIO ESCALERA Primary Care [...] Type Encounter Description Reason Provider Source Jul 18, 2024 01:00 PM PSYTX W PT 45 MINUTES [facility] - IND ICD-10-CM F43.12 Post-traumatic stress disorder, chronic [facility] Encounter Template Text not used by [place] Assessments - Encounter Diagnoses This section includes the primary and secondary diagnoses documented for the Encounter. Date/Time Primary/Secondary Diagnosis Diagnosis Name Provider Source Jul 18, 2024 02:07 PM PRIMARY Post-traumatic stress disorder, chronic [facility] Jul 18, 2024 02:07 PM SECONDARY Major depressive disorder, single episode, unspecified [facility] Jul 18, 2024 02:07 PM SECONDARY Personality disorder, unspecified [facility] Jul 18, 2024 02:07 PM SECONDARY Primary insomnia [facility] Plan of Treatment: Future Appointments (+ 6 months) and Future Tests (+/- 45 days) The Plan of Treatment section includes future care [facility] the [facility] [place] [facility] This section includes future appointments [...] 21, 2024 09:30 AM AMBULATORY - SURGERY [facility] Jul 25, 2024 02:30 PM AMBULATORY - NONE [facility] Aug 07, 2024 02:00 PM AMBULATORY - PSYCHIATRY [facility] Aug 11, 2024 01:30 PM AMBULATORY - SURGERY [facility] Aug 13, 2024 03:30 PM AMBULATORY - PSYCHIATRY CL [facility] Aug 20, 2024 02:00 PM AMBULATORY - SURGERY [facility] Aug 22, 2024 03:00 PM AMBULATORY - PSYCHIATRY [facility] Aug 26, 2024 02:30 PM AMBULATORY - NONE [facility] Aug 26, 2024 03:00 PM AMBULATORY - NONE [facility] Aug 27, 2024 02:45 PM AMBULATORY - NONE [facility] Aug 27, 2024 03:00 PM AMBULATORY - PSYCHIATRY CL [facility] Aug 28, 2024 09:30 AM AMBULATORY - PSYCHIATRY CL [facility] Aug 29, 2024 01:30 PM AMBULATORY - PSYCHIATRY [facility] Sep 03, 2024 01:00 PM AMBULATORY - PSYCHIATRY [facility] Sep 04, 2024 01:00 PM AMBULATORY - NEUROLOGY [facility] Sep 05, 2024 10:00 AM AM[facility]ULATORY - NONE [facility] Sep 25, 2024 01:00 PM AMBULATORY - SURGERY [facility] Oct 03, 2024 01:00 PM AMBULATORY - REHAB MEDICIN E [facility] October 21, 2024 03:00 PM AMBULATORY - PSYCHIATRY [facility] November 03, 2024 02:30 PM AMBULATORY - PSYCHIATRY [facility] Lab Results: +/- 30 days [...] Comment Jul 15, 2024 03:[address] [facility] ALLERGY PANEL, ZONE 8 SERUM Specimen Type: SERUM No comment entered. Ordering Provider: SIDDHARTHA ESPINAL Report Released Date/Time: Jul 15, 2024 03:37 PM Reporting Lab: [address] [address] Performing Lab: [address] [address] DERMATO PTER <0.10 kU/L <0.34 DERMATOPHAGOIDES FARINEA <0.10 kU/L <0.3 4 CAT EPITHELIUM <0.10 kU/L <0.34 DOG EPITHELIUM <0.10 kU/L <0.34 CANDY GRASS <0.10 kU/L <0.34 BAHIA GRASS <0.10 kU/L <0.34 BERMUDA GRASS <0.10 kU/L <0.34 NOVEMBER GRASS ([place] BLUE) <0.10 kU/L <0 .34 COCKROACH, CHINESE IgE <0.10 kU/L <0.34 PENICILLIUM NOTATUM <0.10 [...] <0.10 kU/L <0.34 MUGWORT <0.10 kU/L <0.34 SWEDISH PLANTAIN <0.10 kU/L <0.34 Jul 15, 2024 03:[address] [facility] IGE SERUM Specimen Type: SERUM No comment entered. Ordering Provider: SIDDHARTHA ESPINAL Report Released Date/Time: Jul 15, 2024 03:37 PM Reporting Lab: [address] [address] Performing Lab: [address] [address] IGE <21.0 [IU]/mL <99.9 Jun 19, 2024 09:[address] [facility] LIPID PROFILE PLASMA Specimen Type: PLASMA [...] Nov 20, 2023 01:30 PM Reporting Lab: [address] [address] Performing Lab: [address] [address] CHOLESTEROL 243 mg/dL H <199 LDL CHOLESTEROL 172 mg/dL H 0-99 HDL CHOLESTEROL 33 mg/dL L >40 TRIGLYCERIDE 284 mg/dL H <149 Jun 19, 2024 09:[address] [facility] MAGNESIUM PLASMA Specimen Type: PLASMA Comment: [...] Nov 20, 2023 01:30 PM Reporting Lab: [address] [address] Performing Lab: [address] [address] MAGNESIUM 2.2 mg/dL 1.6-2.6 Jun 19, 2024 09:[address] [facility] VITAMIN D (TOTAL) SERUM Specimen Type : SERUM No comment entered. Ordering Provider: ROSARIO ESCALERA Report Released Date/Time: Nov 20, 2023 01:30 PM Reporting Lab: [address] [address] Performing Lab: [address] [address] VITAMIN D (TOTAL) 9 ng/mL L 30-60 Jun 19, 2024 09:[address] [facility] TSH PLASMA Specimen Type: PLASMA Comment: [...] Nov 20, 2023 01:30 PM Reporting Lab: [address] [address] Performing Lab: [address] [address] TSH 4.701 u[IU]/mL 0.350-4.940 Jun 19, 2024 09:[address] [facility] COMPREHENSIVE METABOLIC PANEL PLASMA S pecimen [...] Nov 20, 2023 01:30 PM Reporting Lab: [address] [address] Performing Lab: [address] [address] ALBUMIN 4.8 g/dL 3.5-4.8 ALKALINE PHOSPHATASE 73 [...] mL/min Jun 19, 2024 09:[address] [facility] CBC BLOOD Specimen Type: BLOOD Comment: Manual Differential Performed. RBC and PLT morphology reviewed Slide reviewed for lymphocytosis Ordering Provider: ROSARIO ESCALERA Report Released Date/Time: Nov 20, 2023 01:30 PM Reporting Lab: [address] [address] Performing Lab: [address] [address] WBC COUNT 14.7 10*3/uL H 3.6-11.0 RBC [...] 2023 02:00 PM VA-TOBACCO FORMER USER [facility] Tobacco Use History This section includes a history of the smoking, or tobacco-related health factors, that were collected on or before the date of the Encounter. The data comes from the [place] facility where the Encounter took place. Date/Time Smoking Status/Tobacco Use Comment F acility May 18, 2023 02:00 PM VA-TOBACCO QUIT 1 TO < 5 YRS [facility] Advance Directives: All historical and current Section [...] 22, 2023 ADVANCE DIRECTIVE DISCUSSION SABINA NAIR [facility] Radiology Reports: +/- 30 days of [...] the Encounter. The data comes from all [place] treatment facilities. Date/Time Radiology Report Provider Source Jul 25, 2024 02:35 PM P/D CT TEMPORAL NICKIE NE W/O CONTRAST : MARION ZHENG [id number] -1995 M Exm Date: JUL 25, 2024@14:35 Req Phys: SIDDHARTHA ESPINAL Mila Loc: [facility] ENT CUSTOMER CARE COORDINATOR 1 (Req'g Loc) Img Loc: [facility] CT Service: [place] [address] (Case [id number] COMPLETE[facility] (CT Detailed) CPT:77567 Reason for Study: conductive hearing loss Clinical History: [address] [id number] Report Status: Verified Date Reported: JUL 28, 2024 Date Verified: JUL 28, 2024 Eeg Tech E-Sig:/ES/KULDIP MCELROY Report: CT OF [place] [...] Code: Primary Interpreting Staff: KULDIP MCELROY, RADIOLOGIST (Eeg Tech) /GAS KULDIP MCELROY [facility] Jul 25, 2024 02:[address] TEMPORAL BONE W /O CONTRAST: MARION ZHENG [id number] -1995 M Exm Date: JUL 25, 2024@14:34 Req Phys: SIDDHARTHA ESPINAL Pat Loc: [facility] CUSTOMER CARE COORDINATOR 1 (Req'g Loc) Img Loc: [facility] CT Service: [place] [address] (Case [id number] COMPLETE)CT TEMPORAL BONE W/O CONTRAST (CT Detailed) CPT:16002 Reason for Study: chronic congestion, right nasal obstruction Clinical History: Report Status: Verified Date Reported: JUL 28, 2024 Date Verified: JUL 28, 2024 Eeg Tech E-Sig:/ES/KULDIP MCELROY Report: CT TEMPORAL BONE , [...] Code: Primary Interpreting Staff: KULDIP MCELROY, RADIOLOGIST (Eeg Tech) /KULDIP WHITAKER [facility] Pathology Reports: +/- 30 [...] the Encounter. The data comes from all [place] treatment facilities. Date/Time Pathology Report Provider Source [...] OF VAS DEFERENS, COMPLETELY TRANSECTED LUMEN. CPT: 50534 x 2 GROSS DESCRIPTION A. Specimen is [...] Laboratory: Surgical Pathology Report Performed By: [facility] [CLIA# [id number]] [address] [place] [address] $FTR - - - - - - [...] - - MARION ZHENG STANDARD FORM 515 ID:[id number] SEX:M :1995 AGE: 28 LOC:[facility] PCP: Rosario Escalera DO /alexandro HAND PATHOLOGIST Signed: 07/23/2024 14:[address] [facility] Encounter Notes: All associated encounter notes This section contains the clinical notes associated to the Encounter. Date/Time Encounter Note(s) Provider Source Jul 18, 2024 12:56 PM MENTAL HEALTH COUN SELING NOTE: LOCAL TITLE: PSYCHIATRY PSYCHOTHERAPY INDIVIDUAL NOTE (T) STANDARD TITLE: MENTAL HEALTH COUNSELING NOTE DATE OF NOTE: JUL 18, 2024@12:56 ENTRY DATE: JUL 18, 2024@12:56:35 AUTHOR: ADDIS CLOUD COSIGNER: URGENCY: STATUS: COMPLETED Session Time and Duration: 1:00 pm - 1:45 pm 45 minutes assessment: 02.09.2023 DIAGNOSIS: PTSD (SC); Insomnia; Depression; Personality D/O, Cluster B traits PATIENT'S STRENGTHS/ABILITIES: Self-Identified: moved to new house Provider Identified: able to tolerate grief support groups, new move stressors w/o SI Active partnership in [employer] PATIENT'S ABILITIES 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 is 28 y/o male w/100% SC being treated in Specialty for therapy. He presents on time to schedule in person therapy appt. He shares he has been busy w/medical appts. He shares of decision for vasectomy. Reinforcement it is his decision while offering opportunity to process stuck points/grief that could be impacting his choices. This leads to further discussion about developing healthy relationship patterns (including present friendships) and processing of stuck points w/some recall of his history. He declines time for PTSD EBP. He declines further working on thought catching/challenging or worksheets. shares working w/roommates about financial limitations on engagement pleasant activities and consideration he or female roommate obtain employment. He is hopeful not to return to work. When asked about goals for in between appts, he reports a complex thought he is trying to process independently w/decline for need to elaborate or process. He shares a close friend he could share with if needed. No other needs at this time. He shares he is looking forward to getting a puppy in August. [place] would like to meet again in @ 3 weeks. is calm and stable at the end of the session with no SI/HI noted. INTERVENTIONS: Assessed mental health status and reviewed events since last session. SW assesses SI/HI. SW reviews the goals for session. SW offers emotional support and uses active listening. SW reviews skill building and his ability to tolerate feelings of distress. SW reviews PTSD EBP supports available. SW uses Socratic Dialogue and promotion of awareness and processing of stuck points. SW reviews developing healthy relationship patterns. SW reviews coping skills and promotes decrease use of screen time (as he and roommates reviewed this as a whole and he has a pattern of this from his marriage). 'S PARTICIPATION: x Actively participated in discussion Has a better understanding of therapeutic issues Understood or demonstrated a new strategy/skill x Willing to practice discussed strategy/skill x Agrees to continue working towards treatment goals PLAN/HOMEWORK: 1. to follow up with this SW for therapy 2. to call clinic/VCL as needed in between sessions 3. medication mgmt. as scheduled 4. [place] to follow Suicide Prevention plan from Mar 23, 2023. MENTAL STATUS EXAM: ORIENTATION AND CONSCIOUSNESS: Alert and attentive, Alert and oriented x 3 APPEARANCE AND BEHAVIOR: Cooperative and reasonable, walks independently, well kempt SPEECH: Normal rate/rhythm LANGUAGE: Intact MOOD AND AFFECT: Mood Depressed, Affect flat- minimal range; goes period of time w/o blinking when discussing trauma PERCEPTUAL DISTURBANCE (Hallucinations, Illusions): None THOUGHT PROCESS AND ASSOCIATION: Normal, coherent THOUGHT CONTENT (delusions, Obsessions, etc.): No unusual thought content MEMORY: Intact SUICIDAL OR VIOLENT IDEATION: He denies SI/HI now or since last appt. He reports he would be okay if he did not wake up but is absent of SI. Safety plan developed on Mar. [place] presents as low acute and chronic intermediate [...] Treatment Will follow up with the in 3 weeks per his request [place] is aware to contact the clinic or the [place]'s Crisis Line with concerns prior to the next scheduled visit. /deanna/ ADDIS VALLECILLO-SUPV CLINICIAL STITCH MARKER Signed: 07/18/2024 14:07 Receipt Acknowledged By: 07/18/2024 15:25 /es/ BIA Tavares CORE CLINICAL NURSE SPECIALIST ADDIS [facility]OUD [facility]
--- OUTSIDE RECORDS SUMMARY | 2024-07-18 10:00 | XMS_ITS | Encounter Summary ---
Author Name [facility] [place] Organization [facility] [place] Address [address] [place] [address] Care Team Providers Care Court Recording Monitor Name Role Phone ROSARIO ESCALERA Primary Care [...] Description Reason Provider Source Jul 18, 2024 02:00 PM MTMS BY LISA LÓPEZ [facility] IND ICD-10-CM F43.12 Post-traumatic stress disorder, chronic VALENTINA TENORIO Encounter Template Text not used by [place] Assessments - Encounter Diagnoses This section includes the primary and secondary diagnoses documented for the Encounter. Date/Time Primary/Secondary Diagnosis Diagnosis Name Provider Source Jul 21, 2024 08:01 AM PRIMARY Post-traumatic stress disorder, chronic [facility] Jul 21, 2024 08:01 AM SECONDARY Major depressive disorder, single episode, unspecified [facility] TEN[facility] Jul 21, 2024 08:01 AM SECONDARY Personality disorder, unspecified [facility] TENOR[facility] Jul 21, 2024 08:01 AM SECONDARY Primary insomnia [facility] TEN[facility] Jul 21, 2024 08:01 AM SECONDARY Suicidal ideations [facility] TEN[facility] Jul 21, 2024 08:01 AM SECONDARY Tobacco use VALENTINA TENORIO [facility] Plan of Treatment: Future Appointments (+ 6 months) and Future Tests (+/- 45 days) The Plan of Treatment section includes future care activities for the [facility] This section includes future appointments and future orders which are active, pending or scheduled. Future Appointments This section includes appointments that were scheduled to occur 6 months from the date of the Encounter, up to a maximum of 20 appointments. The data comes from all [place] treatment facilities. Appointment Date/Time Appointment Type Appointme nt Facility Name Jul 21, 2024 09:30 AM AMBULATORY - SURGERY [facility] Jul 25, 2024 02:30 PM AMBULATORY - NONE [facility] Aug 07, 2024 02:00 PM AMBULATORY - PSYCHIATRY CL [facility] Aug 11, 2024 01:30 PM AMBULATORY - SURGERY [facility] Aug 13, 2024 03:30 PM AMBULATORY - PSYCHIATRY CL [facility] Aug 20, 2024 02:00 PM AMBULATORY - SURGERY [facility] Aug 22, 2024 03:00 PM AMBULATORY - PSYCHIATRY CL [facility] Aug 26, 2024 02:30 PM [facility]ORY [facility] NONE [facility] Aug 26, 2024 03:00 PM AM[facility]ATORY - NONE [facility] Aug 27, 2024 02:45 PM AMBULATORY - NONE [facility] Aug 27, 2024 03:00 PM AMBULATORY - PSYCHIATRY CL [facility] Aug 28, 2024 09:30 AM AMBULATORY - PSYCHIATRY CL [facility] Aug 29, 2024 01:30 PM AMBULATORY - PSYCHIATRY CL [facility] Sep 03, 2024 01:00 PM AMBULATORY - PSYCHIATRY CL [facility] Sep 04, 2024 01:00 PM AMBULATORY - NEUROLOGY [facility] Sep 05, 2024 10:00 AM AMBULATORY - NONE [facility] Sep 25, 2024 01:00 PM AMBULATORY - SURGERY [facility] Oct 03, 2024 01:00 PM AMBULATORY - REHAB MEDICIN E [facility] October 21, 2024 03:00 PM AMBULATORY - PSYCHIATRY CL [facility] November 03, 2024 02:30 PM AMBULATORY - PSYCHIATRY [facility] Lab Results: +/- 30 days [...] Comment Jul 15, 2024 03:49 PM [facility] ALLERGY PANEL, ZONE 8 SERUM Specimen Type: SERUM No comment entered. Ordering Provider: SIDDHARTHA ESPINAL Report Released Date/Time: Jul 15, 2024 03:37 PM Reporting Lab: [address] [address] Performing Lab: [address] [address] DERMATO PTER <0.10 kU/L <0.34 DERMATOPHAGOIDES FARINEA <0.10 kU/L <0.3 4 CAT EPITHELIUM <0.10 kU/L <0.34 DOG EPITHELIUM <0.10 kU/L <0.34 CANDY GRASS <0.10 kU/L <0.34 BAHIA GRASS <0.10 kU/L <0.34 BERMUDA GRASS <0.10 kU/L <0.34 NOVEMBER GRASS ([place] BLUE) <0.10 kU/L <0 .34 COCKROACH, SAUDI ARABIAN IgE <0.10 kU/L <0.34 PENICILLIUM NOTATUM <0.10 [...] <0.10 kU/L <0.34 MUGWORT <0.10 kU/L <0.34 MONGOLIAN PLANTAIN <0.10 kU/L <0.34 Jul 15, 2024 03:49 PM [facility] IGE SERUM Specimen Type: SERUM No comment entered. Ordering Provider: SIDDHARTHA ESPINAL Report Released Date/Time: Jul 15, 2024 03:37 PM Reporting Lab: [address] [address] Performing Lab: [address] [address] IGE <21.0 [IU]/mL <99.9 Jun 19, 2024 09:49 AM [facility] LIPID PROFILE PLASMA Specimen Type: PLASMA [...] Nov 20, 2023 01:30 PM Reporting Lab: [address] [address] Performing Lab: [address] [address] CHOLESTEROL 243 mg/dL H <199 LDL CHOLESTEROL 172 mg/dL H 0-99 HDL CHOLESTEROL 33 mg/dL L >40 TRIGLYCERIDE 284 mg/dL H <149 Jun 19, 2024 09:49 AM [facility] MAGNESIUM PLASMA Specimen Type: PLASMA Comment: [...] Nov 20, 2023 01:30 PM Reporting Lab: [address] [address] Performing Lab: [address] [address] MAGNESIUM 2.2 mg/dL 1.6-2.6 Jun 19, 2024 09:49 AM [facility] VITAMIN D (TOTAL) SERUM Specimen Type : SERUM No comment entered. Ordering Provider: ROSARIO ESCALERA Report Released Date/Time: Nov 20, 2023 01:30 PM Reporting Lab: [address] [address] Performing Lab: [address] [address] VITAMIN D (TOTAL) 9 ng/mL L 30-60 Jun 19, 2024 09:49 AM [facility] TSH PLASMA Specimen Type: PLASMA Comment: [...] Nov 20, 2023 01:30 PM Reporting Lab: [address] [address] Performing Lab: [address] [address] TSH 4.701 u[IU]/mL 0.350-4.940 Jun 19, 2024 09:49 AM [facility] COMPREHENSIVE METABOLIC PANEL PLASMA S pecimen [...] Nov 20, 2023 01:30 PM Reporting Lab: [address] [address] Performing Lab: [place] [id number] ALBUMIN 4.8 g/dL 3.5-4.8 ALKALINE PHOSPHATASE 73 [...] mL/min Jun 19, 2024 09:49 AM [facility] CBC BLOOD Specimen Type: BLOOD Comment: Manual Differential Performed. RBC and PLT morphology reviewed Slide reviewed for lymphocytosis Ordering Provider: ROSARIO ESCALERA Report Released Date/Time: Nov 20, 2023 01:30 PM Reporting Lab: [address] [address] Performing Lab: [address] [address] WBC COUNT 14.7 10*3/uL H 3.6-11.0 RBC [...] [place]-TOBACCO QUIT 1 TO < 5 YRS [facility] Tobacco Use History This section includes a history of the smoking, or tobacco-related health factors, that were collected on or before the date of the Encounter. The data comes from the [place] facility where the Encounter took place. Date/Time Smoking Status/Tobacco Use Comment F acility May 18, 2023 02[facility]00 [facility] Advance Directives: All historical and [...] 2023 ADVANCE DIRECTIVE DISCUSSION SABINA NAIR [facility] Radiology Reports: +/- 30 days [...] NICKIE NE W/O CONTRAST : MARION ZHENG [id number] -1995 M Exm Date: JUL 25, 2024@14:35 Req Phys: SIDDHARTHA ESPINAL Pat Loc: [facility] SECRETARY 1 (Req'g Loc) Img Loc: [facility] CT Service: Unknown [place] [address] (Case [id number] COMPLETE)[facility] CT (CT Detailed) CPT:77532 Reason for Study: conductive hearing loss Clinical History: [address] [id number] Report Status: Verified Date Reported: JUL 28, 2024 Date Verified: JUL 28, 2024 Air Compressor Mechanic E-Sig:/ES/KULDIP MCELROY Report: CT OF [facility] AIR [...] Code: Primary Interpreting Staff: KULDIP MCELROY, RADIOLOGIST (Air Compressor Mechanic) /GAS KULDIP MCELROY CB Jul 25, 2024 02:[address] TEMPORAL BONE W /O CONTRAST: MARION ZHENG [id number] -1995 M Exm Date: JUL 25, 2024@14:34 Req Phys: SIDDHARTHA ESPINAL Loc: [facility] [employer] SECRETARY 1 (Req'g Loc) Img Loc: [place] Service: [place] [address] (Case [id number] COMPLETE)CT TEMPORAL BONE W/O CONTRAST (CT Detailed) CPT:80415 Reason for Study: chronic congestion, right nasal obstruction Clinical History: Report Status: Verified Date Reported: JUL 28, 2024 Date Verified: JUL 28, 2024 Air Compressor Mechanic E-Sig:/ES/KULDIP MCELROY Report: CT TEMPORAL BONE , [...] Code: Primary Interpreting Staff: KULDIP MCELROY, RADIOLOGIST (Air Compressor Mechanic) /KULDIP WHITAKER [facility] Pathology Reports: +/- 30 [...] comes from all [place] treatment facilities. Date/Time Pathology Report Provider Source [...] OF VAS DEFERENS, COMPLETELY TRANSECTED LUMEN. CPT: 77965 x 2 GROSS DESCRIPTION A. Specimen is [...] Laboratory: Surgical Pathology Report Performed By: [facility] [CLIA# [id number]] [address] [place] [address] $FTR - - - - - - [...] - - MARION ZHENG STANDARD FORM 515 ID:[id number] SEX:M :1995 AGE: 28 LOC:[facility] PCP: DO chirag Lara PATHOLOGIST Signed: 07/23/2024 14:14 PAULA HAND [facility] Encounter Notes: All associated encounter notes This section contains the clinical notes associated to the Encounter. Date/Time Encounter Note(s) Provider Source Jul 18, 2024 01:29 PM PSYCHIATRY NOTE: LOCAL TITLE: [facility] PSYCHIATRY NOTE (T) STANDARD TITLE: PSYCHIATRY NOTE DATE OF NOTE: JUL 18, 2024@13:29 ENTRY DATE: JUL 18, 2024@13:29:30 AUTHOR: ABAD TENORIOIGNER: URGENCY: STATUS: COMPLETED PSYCHIATRIC EVALUATION NOTE Time in: 1348 Time out: 1425 Total time: 37 min AI is a 28yom w/ a MH h/o PTSD, depressive DO unspecified, personality DO unspecified, and insomnia. Chart and available information reviewed. CC: I haven't had a panic attack in about a month or so HPI: Marion was last interviewed 06/25/24 where he reported adherence to sertraline, as prescribed, yielding durable perceptions in both tolerability and benefit. Discussed managing appropriately throughout the holiday season and associated stressors. With his sleep and TCA use, still [...] . Denied an obvious trigger in this. He will hold TCA use for situations of absolute need, and trial buspirone addition, as desired. He denied questions or concerns. [place] seen for F2F appt as planned. Reported on circumstances in the interim of following, to include his planned vasectomy and his perspective behind this decision. Now it's more of a mix of things.. she's not here, a relationship that works, I'm not trying to have another kid . Provided supportive listening in review of this and other medical engagements, and his perceptions of productivity towards his goals therein. Figuring out the next steps in a lot of ways . We reviewed prior discussions on his use of VPA and TCA, having since held our use of TCA drug and noting and absence of need, and further an absence of headache influence. He continues to assign VPA with headache benefit, and this will be forward to his neurologist collaboratively, as previously discussed. Expressed some concern for burden of medication orders generally, and we reviewed the recent addition of buspirone. Buspirone is without tolerability concerns on prompted review. I haven't had any issues with stepping outside of the house.. I haven't had a panic attack in about a month or so . He is unsure what is associated with this and we discussed the previously appreciated variability in anxiety symptoms, and often absence of insight to triggers of these. He continues to feel sertraline at present dose helps out a bit.. some days are better than others . He stated intent to monitor present approach for further data collection. Sleep lately has been a combination of everything.. hit or miss . Significant latency persists at times; I'm just wide awake . Sleep therapy has been alright , and he is optimistic this will yield more benefit then medication use. This marketing underwriter encouraged his personal investments outside of medication management. He and roommates have been having check-ins on the daily ops, kids and household contributions and expectations. I felt good about stepping up, it got better as the month progressed . Keeping up with [employer] arts classes for the most part. We resolved to monitor. Denied SI/HI. SUBSTANCE USE HX: Nicotine- vaped nicotine; deferred cessation interest at this time Alcohol- denied Illicit- denied PSYCHIATRIC MEDICATION HISTORY: According to CPRS and JLV remote data of [place] outpatient Rx, the pt has a h/o TRAZODONE (non-VA); ESCITALOPRAM (up to 20mg daily, non-VA); HYDROXYZINE (25mg PRN anxiety, non-VA); SERTRALINE. FLUOXETINE (20mg non-VA); ARIPIPRAZOLE (2mg non-VA). Since engagement with this marketing underwriter: SERTRALINE; LITHIUM. VENLAFAXINE. ALLERGIES/ADVERSE REACTIONS Type: DRUG [...] ACTIVE EACH NOSTRIL SIX TIMES A DAY Inactive Outpatient Medications Status 1) FLUTICASONE [...] TSH: 4.701 (06/19/24 09:49) PLASMA Vitals: T: 97.3 F [36.3 C] (07/17/2024 12:52) P: 78 (07/17/2024 12:52) R: 16 (07/17/2024 12:52) BP: 135/95 (07/17/2024 12:52) W: 171.6 lb [77.84 kg] (07/17/2024 12:52) BMI: 24.7 Mental Status Exam: Kacy: 28yom who appears stated age, dressed in casual attire, brown hair and appiah, orients to interviewer with good eye contact, seated comfortably Level of Consciousness: A&O x4 Psychomotor Activity: normal Speech: regular volume, rate and tone Mood: okay Affect: relatively euthymic Behavior: cooperative Thought Process: [...] of harm to self or others ASSESSMENT: [place] with PTSD, depressive DO unspecified, personality DO [...] titration yielding questions on benefit over time. [place] augmentation, at one time viewed as supportive for SI and negative thought content, also in disuse and without indication to resume at present. Sertraline trial with tolerability and some benefit, which we will monitor in conjunction with buspirone trial ongoing. PLAN: -> PTSD, depressive DO unspecified: - offered supportive listening and encouraged to optimize both medication and counseling therapies - continue sertraline 50mg daily - continue buspirone 10mg BID cc - has on hand: amitriptyline 20mg HS PRN for sleep (intent is disuse) -> monitor: mood, sleep, anxiety, SUDHEER -> goals: find something that works -> progress: patient amenable to plan RTC: 6 weeks, sooner PRN. Patient was provided with [...] list of medications. /deanna/ ABAD TENORIO CLINICAL FUSE CUTTER Signed: 07/21/2024 08:01 ABAD TENORIO OC
--- OUTSIDE RECORDS SUMMARY | 2024-07-21 04:58 | XMS_ITS | Encounter Summary ---
Author Name [facility] [place] Organization [place] Address [address] [place] [address] Care Team Providers Care Master Certified Rv Technician Name Role Phone ROSARIO ESCALERA Primary [...] section includes the information on record at [place] for the Encounter. Date/Time Encounter Type Encounter Description Reason Pro vider Source Jul 21, 2024 08:58 AM Outpatient Encounter PATIENT CARE IN OR E Encounter Template Text not used by [place] Plan of Treatment: Future Appointments (+ 6 months) and Future Tests (+/- 45 days) The Plan of Treatment section includes future care activities for the patient from all [place] treatmentfacilities. This section includes future appointments and future orders which are active, pending or scheduled. Future Appointments This section includes appointments that were scheduled to occur 6 months from the date of the Encounter, up to a maximum of 20 appointments. The data comes from all [place] treatment facilities. Appointment Date/Time Appointment Type Appointme nt Facility Name Jul 25, 2024 02:30 PM AMBULATORY - NONE [facility] Aug 07, 2024 02:00 PM AMBULATORY - PSYCHIATRY CL [facility] Aug 11, 2024 01:30 PM AMBULATORY - SURGERY [facility] Aug 13, 2024 03:30 PM AMBULATORY - PSYCHIATRY CL [facility] Aug 20, 2024 02:00 PM AMBULATORY - SURGERY [facility] Aug 22, 2024 03:00 PM AMBULATORY - PSYCHIATRY CL [facility] Aug 26, 2024 02:30 PM [facility] Aug 26, 2024 03:00 PM [facility]BULATORY - NONE [facility] Aug 27, 2024 02:45 PM AMBULATORY - NONE [facility] Aug 27, 2024 03:00 PM AMBULATORY - PSYCHIATRY CL [facility] Aug 28, 2024 09:30 AM AMBULATORY - PSYCHIATRY [facility] Aug 29, 2024 01:30 PM AMBULATORY - PSYCHIATRY [facility] Sep 03, 2024 01:00 PM AMBULATORY - PSYCHIATRY [facility] Sep 04, 2024 01:00 PM AMBULATORY - NEUROLOGY [facility] Sep 05, 2024 10:00 AM AMBULATORY - NONE [facility] Sep 25, 2024 01:00 PM AMBULATORY - SURGERY [facility] Oct 03, 2024 01:00 PM AMBULATORY - REHAB MEDICIN E [facility] October 21, 2024 03:00 PM AMBULATORY - PSYCHIATRY [facility] November 03, 2024 02:30 PM AMBULATORY - PSYCHIATRY [facility] November 04, 2024 02:30 PM AMBULATORY - SURGERY [facility] Lab Results: +/- 30 days of the encounter This section includes the Chemistry and Hematology Lab Results on record with [place] for the patient. Radiology Reports and Pathology Reports are provided separately, in subsequent sections. Lab Results This section contains the Chemistry/Hematology Results that were resulted 30 days before or 30 daysafter the date of the Encounter. Date/Time Source Result Type Result - Unit Interpretation Reference Range Specimen Type Comment Jul 15, 2024 03:49 PM [facility] ALLERGY PANEL, ZONE 8 SERUM Specimen Type: SERUM No comment entered. Ordering Provider: SIDDHARTHA ESPINAL Report Released Date/Time: Jul 15, 2024 03:37 PM Reporting Lab: [facility] [id number] [facility] [address] Performing Lab: [facility] [id number] [place] [id number] DERMATO PTER <0.10 kU/L <0.34 DERMATOPHAGOIDES FARINEA <0.10 kU/L <0.3 4 CAT EPITHELIUM <0.10 kU/L <0.34 DOG EPITHELIUM <0.10 kU/L <0.34 CANDY GRASS <0.10 kU/L <0.34 BAHIA GRASS <0.10 kU/L <0.34 BERMUDA GRASS <0.10 kU/L <0.34 NOVEMBER GRASS ([employer] BLUE) <0.10 kU/L <0 .34 COCKROACH, SERBIAN [...] <0.10 kU/L <0.34 MUGWORT <0.10 kU/L <0.34 DOMINICAN PLANTAIN <0.10 kU/L <0.34 Jul 15, 2024 03:49 PM [facility] IGE SERUM Specimen Type: SERUM No comment entered. Ordering Provider: SIDDHARTHA ESPINAL Report Released Date/Time: Jul 15, 2024 03:37 PM Reporting Lab: [facility] [id number] [place] [phone] Performing Lab: [facility] [address] [facility] [address] IGE <21.0 [IU]/mL <99.9 Social History: Smoking Status (Most current) and Tobacco Use (All prior to encounter date) This section includes the most current, and the historical, smoking and tobacco- related health factors from the [place] facility where the Encounter took place. Current Smoking Status This section includes the most current smoking, or tobacco-related health factor, from the [place] facility where the Encounter took place. Date/Time Current Smoking Status Comment Facil ity Jun 06, 2024 11:30 AM VA-TOBACCO USE EVERY DAY CIGARET [facility] Tobacco Use History This section includes a history of the smoking, or tobacco-related health factors, that were collected on or before the date of the Encounter. The data comes from the [place] facility where the Encounter took place. Date/Time Smoking Status/Tobacco Use Comment F acility Jun 06, 2024 11:30 AM VA-TOBACCO USE ADVICE [facility] Jun 06, 2024 11:30 AM VA-TOBACCO USE REGISTRATION MANAGER NO [facility] Jun 06, 2024 11:30 AM VA-TOBACCO USE EVERY DAY CIGARET MANNY [facility] Jun 06, 2024 11:30 AM VA-TOBACCO USE EVERY DAY ENDS [facility] Jun 06, 2024 11:30 AM VA-TOBACCO USE EVERY DAY OTHER T YPE [facility] Jun 06, 2024 11:30 AM VA-TOBACCO USE MED [facility] Jun 19, 2023 10:00 AM TOBACCO FORMER USER MORE 12 [facility] Advance Directives: All historical and current Section Date Range: From patient's date of to the date document was created. This section includes ALL of a patient's completed or amended [place] Advance and Rescinded Directives. The entries below indicate that a directive exists for the patient, but an actual copy is not included with this document. The data comes from all [facility]. Date Advance Directives Provider Source October 22, 2023 ADVANCE DIRECTIVE DISCUSSION SABINA NAIR [facility] Radiology Reports: +/- 30 days of [...] the Encounter. The data comes from all [place] treatment facilities. Date/Time Radiology Report Provider Source Jul 25, 2024 02:35 PM P/D CT TEMPORAL NICKIE NE W/O CONTRAST : MARION ZHENG [id number] -1995 M Exm Date: JUL 25, 2024@14:35 Req Phys: SIDDHARTHA ESPINAL Loc: [facility] AIRBORNE AND AIR DELIVERY SPECIALIST 1 (Req'g Loc) Img Loc: [facility] CT Service: [place] [address] (Case [id number] COMPLETE)[facility] CT (CT Detailed) CPT:01360 Reason for Study: conductive hearing loss Clinical History: [address] [id number] Report Status: Verified Date Reported: JUL 28, 2024 Date Verified: JUL 28, 2024 Inspector Assemblies And Installations E-Sig:/ES/KULDIP MCELROY Report: CT OF [facility] AIR [...] Code: Primary Interpreting Staff: KULDIP MCELROY, RADIOLOGIST (Inspector [employer]semblies And Installations) /KULDIP WHITAKER CB Jul 25, 2024 02:[address] TEMPORAL BONE W /O CONTRAST: MARION ZHENG [id number] -1995 M Exm Date: JUL 25, 2024@14:34 Req Phys: SIDDHARTHA ESPINAL Loc: [facility] [employer]BORNE AND AIR DELIVERY SPECIALIST 1 (Req'g Loc) Img Loc: [place] CT Service: [place] [address] (Case [id number] COMPLETE)CT TEMPORAL BONE W/O CONTRAST (CT Detailed) CPT:77327 Reason for Study: chronic congestion, right nasal obstruction Clinical History: Report Status: Verified Date Reported: JUL 28, 2024 Date Verified: JUL 28, 2024 Inspector Assemblies And Installations E-Sig:/ES/KULDIP MCELROY Report: CT TEMPORAL BONE , [...] Code: Primary Interpreting Staff: KULDIP MCELROY, RADIOLOGIST (Inspector Assemblies And Installations) /KULDIP WHITAKER [facility] Pathology Reports: +/- 30 [...] the Encounter. The data comes from all [place] treatment facilities. Date/Time Pathology Report Provider Source [...] OF VAS DEFERENS, COMPLETELY TRANSECTED LUMEN. CPT: 54745 x 2 GROSS DESCRIPTION A. Specimen is [...] Performing Laboratory: Surgical Pathology Report Performed By: [facility] [CLIA# [id number]] [address] [place] [address] $FTR - - - - - - [...] - - MARION ZHENG STANDARD FORM 515 ID:[id number] SEX:M :1995 AGE: 28 LOC:[facility] PCP: DO chirag LaraEEVA RAJU PATHOLOGIST Signed: 07/23/2024 14:14 PAULA HAND [facility] Encounter Notes: All associated encounter notes This section contains the clinical notes associated to the Encounter. Date/Time Encounter Note(s) Provider Source Jul 21, 2024 08:58 AM NURSING FLOWSHEET: LOCAL TITLE: PICIS PACU CLINICAL FLOWSHEET STANDARD TITLE: NURSING FLOWSHEET DATE OF NOTE: JUL 21, 2024@08:58 ENTRY DATE: JUL 21, 2024@08:58:22 AUTHOR: CALEB RODRIGUEZ EXP COSIGNER: URGENCY: STATUS: COMPLETED See linked PDF file /es/ USER PICJAQUAN Signed: 07/21/2024 08:58 CALEB RODRIGUEZ [facility]
--- OUTSIDE RECORDS SUMMARY | 2024-07-21 05:30 | XMS_ITS | Encounter Summary ---
Author Name [facility] [place] [facility] [place] Organization [facility] [place] Address [address] [place] [address] Care Team Providers Care Scientist Electronics Name Role Phone ROSARIO ESCALERA Primary Care [...] Reason Pro vider Source Jul 21, 2024 09:30 AM Outpatient Encounter PATIENT CARE IN OR E Encounter Template Text not used by PA [...] PM AMBULATORY - PSYCHIATRY CL [facility] Aug 11, 2024 01:30 PM AMBULATORY - SURGERY [facility] Aug 13, 2024 03:30 PM AMBULATORY - PSYCHIATRY CL [facility] Aug 20, 2024 02:00 PM AMBULATORY - SURGERY [facility] Aug 22, 2024 03:00 PM AMBULATORY - PSYCHIATRY CL [facility] Aug 26, 2024 02:30 PM AMBULATORY - NONE [facility] Aug 26, 2024 03:00 PM [facility]ORY - NONE [facility] Aug 27, 2024 02:45 PM AMBULATORY - NONE [facility] Aug 27, 2024 03:00 PM AMBULATORY - PSYCHIATRY CL [facility] Aug 28, 2024 09:30 AM AMBULATORY - PSYCHIATRY [facility] Aug 29, 2024 01:30 PM AMBULATORY - PSYCHIATRY CL [facility] Sep 03, 2024 01:00 PM AMBULATORY - PSYCHIATRY [facility] Sep 04, 2024 01:00 PM AMBULATORY - NEUROLOGY [facility] Sep 05, 2024 10:00 AM AMBULATORY - NONE [facility] Sep 25, 2024 01:00 PM AMBULATORY - SURGERY [facility] Oct 03, 2024 01:00 PM AMBULATORY - REHAB MEDICIN E [facility] October 21, 2024 03:00 PM AMBULATORY - PSYCHIATRY [facility] November 03, 2024 02:30 PM AMBULATORY - PSYCHIATRY [facility] November 04, 2024 02:30 PM AMBULATORY - SURGERY [facility] Lab Results: +/- 30 days of the encounter This section includes the Chemistry and Hematology Lab Results on record with [place] for the patient. Radiology Reports and Pathology Reports are provided separately, in subsequent sections. Lab Results This section contains the Chemistry/Hematology Results that were resulted 30 days before or 30 daysafter the date of the Encounter. Date/Time Source Result Type Result - Unit Interpretation Reference Range Specimen Type Comment Jul 15, 2024 03:49 PM [facility] ALLERGY PANEL, ZONE 8 SERUM Specimen Type: SERUM No comment entered. Ordering Provider: SIDDHARTHA ESPINAL Report Released Date/Time: Jul 15, 2024 03:37 PM Reporting Lab: [facility] [address] [facility] [address] Performing Lab: [facility] [address] [facility] [address] DERMATO PTER <0.10 kU/L <0.34 DERMATOPHAGOIDES FARINEA <0.10 kU/L <0.3 4 CAT EPITHELIUM <0.10 kU/L <0.34 DOG EPITHELIUM <0.10 kU/L <0.34 CANDY GRASS <0.10 kU/L <0.34 BAHIA GRASS <0.10 kU/L <0.34 BERMUDA GRASS <0.10 kU/L <0.34 NOVEMBER GRASS (FlowCardia BLUE) <0.10 kU/L <0 .34 COCKROACH, TELUGU IgE <0.10 kU/L <0.34 PENICILLIUM NOTATUM <0.10 [...] <0.10 kU/L <0.34 MUGWORT <0.10 kU/L <0.34 TURKS AND CAICOS ISLANDER PLANTAIN <0.10 kU/L <0.34 Jul 15, 2024 03:49 PM [facility] IGE SERUM Specimen Type: SERUM No comment entered. Ordering Provider: SIDDHARTHA ESPINAL Report Released Date/Time: Jul 15, 2024 03:37 PM Reporting Lab: [facility] [address] [facility] [address] Performing Lab: [facility] [address] [facility] [address] IGE <21.0 [IU]/mL <99.9 Social History: Smoking [...] place. Date/Time Current Smoking Status Comment Lucinda raymond Jul 21, 2024 09:30 AM TOBACCO CURRENT USER [facility] Advance Directives: All historical and current Section Date Range: From patient's date of to the date document was created. This section includes ALL of a patient's completed or amended [place] Advance and Rescinded Directives. The entries below indicate that a directive exists for the patient, but an actual copy is not included with this document. The data comes from all [facility]. Date Advance Directives Provider Source October 22, [...] NICKIE NE W/O CONTRAST : MARION ZHENG [id number] -1995 M Exm Date: JUL 25, 2024@14:35 Req Phys: SIDDHARTHA ESPINAL Loc: [facility] BUILDING CODE ADMINISTRATOR 1 (Req'g Loc) Img Loc: [facility] [place] Service: [place] [address] (Case [id number] COMPLETE)[facility] CT (CT Detailed) CPT:62876 Reason for Study: conductive hearing loss Clinical History: [address], [place] [address] Report Status: Verified Date Reported: JUL 28, 2024 Date Verified: JUL 28, 2024 Site Project Manager E-Sig:/ES/KULDIP MCELROY Report: CT OF [place] [...] Code: Primary Interpreting Staff: KULDIP MCELROY, RADIOLOGIST (Site Project Manager) /KULDIP WHITAKER [facility] Jul 25, 2024 02:[address] TEMPORAL BONE W /O CONTRAST: BRITTNEYMARION Haji [id number] -1995 M Exm Date: JUL 25, 2024@14:34 Req Phys: SIDDHARTHA ESPINAL Pat Loc: [facility] BUILDING CODE ADMINISTRATOR 1 (Req'g Loc) Img Loc: [place] [facility] Service: Unknown [place] [address] (Case [id number] COMPLETE)CT TEMPORAL BONE W/O CONTRAST (CT Detailed) CPT:73583 Reason for Study: chronic congestion, right nasal obstruction Clinical History: Report Status: Verified Date Reported: JUL 28, 2024 Date Verified: JUL 28, 2024 Site Project Manager E-Sig:/ES/KULDIP MCELROY Report: CT TEMPORAL BONE , [...] Code: Primary Interpreting Staff: KULDIP MCELROY, RADIOLOGIST (Site Project Manager) /KULDIP WHITAKER CB Pathology Reports: +/- 30 days of the [...] comes from all [place] treatment facilities. Date/Time Pathology Report Provider Source [...] - - $TEXT Submitted by: JUAN PABLO CAIN Date obtained: Jul 21, 2024 - - [...] POSTOPERATIVE DIAGNOSIS: ELECTIVE STERILIZATION Surgeon/physician: JUAN PABLO CAIN Attending Surgeon: Jeffrey Chandler MD =-=-=-=-=-=-=-=-=-=-=-=-=-=-=-=-=-= -=-=-=-=-=-=-=-=-=-=-=-=-=-=-=-=-=- [...] OF VAS DEFERENS, COMPLETELY TRANSECTED LUMEN. CPT: 91945 x 2 GROSS DESCRIPTION A. Specimen is [...] Performing Laboratory: Surgical Pathology Report Performed By: [facility] [CLIA# [id number]] [address] [place] [address] $FTR - - - - - - [...] - - MARION ZHENG STANDARD FORM 515 ID:[id number] SEX:M :1995 AGE: 28 LOC:[facility] PCP: DO chirag Lara PATHOLOGIST Signed: 07/23/2024 14:14 PAULA HAND [facility] Encounter Notes: All associated encounter notes This section contains the clinical notes associated to the Encounter. Date/Time Encounter Note(s) Provider Source Jul 22, 2024 11:53 AM TELEPHONE ENCOUNTER NOTE: LOCAL TITLE: SURGERY CENTER PRE/POST PROCEDURE TELEPHONE NOTE (T STANDARD TITLE: TELEPHONE ENCOUNTER NOTE DATE OF NOTE: JUL 22, 2024@11:53 ENTRY DATE: JUL 22, 2024@11:53:26 AUTHOR: CHANO MURO COSIGNER: URGENCY: STATUS: COMPLETED Post-Procedure Telephone Contact Procedure Type: Operative procedure Procedure Performed: Vasectomy Type of Call: Outgoing call Phone Call Status: Patient/designee states doing fine, no questions or concerns. Spoke with patient Patient Experiencing: Patient responded no to all the screening questions and reported no symptoms. Patient Instructions: No symptoms Patient instructed to contact the service if experiencing any symptoms. For after-hours patient instructed to call: [phone], select option 3 /deanna/ CHANO MURO REGISTERED NURSE Signed: 07/22/2024 11:53 CHANO MURO [facility] Jul 21, 2024 10:57 AM UROLOGY POST OPERATIVE E & M NOTE: LOCAL TITLE: UROLOGY POSTOPERATIVE NOTE (T) STANDARD TITLE: UROLOGY POST OPERATIVE E & M NOTE DATE OF NOTE: JUL 21, 2024@10:57 ENTRY DATE: JUL 21, 2024@10:58:08 AUTHOR: JUAN PABLO CAIN COSIGNER: URGENCY: STATUS: COMPLETED Pre-operative diagnosis: desire for sterilization Post-operative diagnosis: same Procedure: bilateral vasectomy Surgeons: Attending: Dr. Chandler Resident: Dr. Cain Anesthesia: Local Fluids: crystalloid: colloid: blood products: Estimated blood loss: 1 Urine output: ccs Findings: uncomplicated bilateral no scalpel vasectomy Specimens: cultures: pathology: bilateral vas Drains: No Complications: No If yes, specify: Condition: Disposition: PACU I was directly involved with the care and transport of this patient to the Post Anesthesia Care Unit and the postoperative note was completed at the conclusion of these patient care activities /deanna/ JUAN PABLO CAIN RESIDENT Signed: 07/21/2024 10:59 Receipt Acknowledged By: 07/21/2024 11:11 /alexandro CHANDLER UROLOGIST NEREIDA CAIN [facility] Jul 21, 2024 10:14 AM UROLOGY PRE OPERATIVE E & M NOTE: LOCAL TITLE: UROLOGY PREOPERATIVE NOTE (T) STANDARD TITLE: UROLOGY PRE OPERATIVE E & M NOTE DATE OF NOTE: JUL 21, 2024@10:14 ENTRY DATE: JUL 21, 2024@10:15:06 AUTHOR: JEFFREY CHANDLER EXP COSIGNER: URGENCY: STATUS: COMPLETED ATTENDING STAFF PRE-OP NOTE I have seen and examined the patient and agree with the assessment and plan of care outlined by the resident staff. Risks, benefits, potential complications and alternatives were discussed with the patient. The patient elects to proceed with the procedure. /alexandro CHANDLER UROLOGIST Signed: 07/21/2024 10:15 JEFFREY CHANDLER [facility] Jul 21, 2024 09:53 AM UROLOGY PRE OPERATIVE E & M NOTE: LOCAL TITLE: UROLOGY PREOPERATIVE NOTE (T) STANDARD TITLE: UROLOGY PRE OPERATIVE E & M NOTE DATE OF NOTE: JUL 21, 2024@09:53 ENTRY DATE: JUL 21, 2024@09:54:04 AUTHOR: JUAN PABLO CAIN COSIGNER: URGENCY: STATUS: COMPLETED PREOPERATIVE NOTE History and Physical Update The patient was examined. The H&P and Medication Reconciliation from Jun was reviewed and there were no changes. Vitals: T: 97.3 F [36.3 C] (07/17/2024 12:52) P: 78 (07/17/2024 12:52) R: 16 (07/17/2024 12:52) BP: 135/95 (07/17/2024 12:52) PAIN: 0 (07/17/2024 12:52) Allergies: ALLERGIES/ADVERSE REACTIONS Type: DRUG Date/Time Reactant Severity Reaction 02/15/2023 16:29 HYDROMORPHONE URTICARIA 02/15/2023 16:29 OXYCODONE NAUSEA AND VOMITING 02/15/2023 16:28 MORPHINE ANAPHYLAXIS Pre-operative diagnosis: Encounter for sterilization Planned procedure: bilateral vasectomy Surgeon: Dr. Chandler Consent obtained: Yes Obtained by: Dr. Cain Pre-operative laboratory tests reviewed: CBC: Metabolic: Coagulation: PT - PTT - INR - Urinalysis: Chest x-ray: Electrocardiogram: Blood Products: Type and screen: No Type and cross: No Number of units: None Other blood products: Marry /deanna/ JUAN PABLO CAIN RESIDENT Signed: 07/21/2024 09:54 Receipt Acknowledged By: 07/21/2024 10:14 /deanna/ JEFFREY CHANDLER UROLOGIST NEREIDA ACIN [facility] Jul 21, 2024 08:58 AM SURGERY E & M NOTE: LOCAL TITLE: SURGERY CENTER PRE-OPERATIVE/PRE PROCEDURE CHECKLIS STANDARD TITLE: SURGERY E & M NOTE DATE OF NOTE: JUL 21, 2024@08:58 ENTRY DATE: JUL 21, 2024@08:58:52 AUTHOR: PANTERA MCCORD COSIGNER: URGENCY: STATUS: COMPLETED Date/Time arrived: Jul@08:45 Room number: 4 Patient's preferred language for discussing health care: Citizen Of [place] Advance Directives Patient has Advance Directives: No Patient would like more information on Advance Directives at this time: No Patient declined Advance Directive information at this time. Does the patient feel safe at home? Yes The patient's health assessment has changed since last evaluation: No Tobacco use Reports using tobacco products at least once in the past 12 months. Patient was asked if he/she has had any falls within the past 12 months. Patients states no falls in past 12 months. FALL INTERVENTIONS FOR OUTPATIENT SURGERY CENTER Education Tebbetts to surroundings Use of non-skid slippers or gripper socks Request assistance for getting off the gurney,toileting and transfers Purpose and use of assistive devices and mobility aids if needed Environment of Care Lock gurney wheels Lock wheelchair wheels if applicable Provide proper lighting Keep floor free of clutter Clean up spills immediately Modify environment for safe transfers PHYSICAL EXAMINATION Orientation - Patient oriented to person,place,time and circumstance Level of Consciousness - Alert Eyes - Pupils equal, round, reactive to light, No drainage Ears - Hearing fair Nares - Clear, No drainage Larynx - Non-tender, No erythema Heart - Heart regular Pulses - Palpable x4 extremities Extremities - Warm, No edema Respirations - Unlabored, Symmetrical Breath sounds - Right clear, Left clear Abdomen - Soft, Non-distended Bowel sounds - Active x4 quadrants Bladder - Continent Skin - Warm, Dry Mobility - Independent PSYCHOSOCIAL Reading - Good Education - High school Language - Citizen Of [place] Jew - none Culture - Patient has beliefs that may affect hospital stay: No Travel - Self PATIE NT IDENTIFICATION - Identification band verified/name accurate: Yes - History and physical performed within 30 days: No - Verbal confirmation of identity given by Patient - States name and Social Security Number PROC EDURE VERIFICATION ------- - Document the procedure, site, and side as stated by: Patient, ok to use layman's terms: - Having a vasectomy -LABORATORY --------- ALLERGIES/ADVERSE DRUG REACTIONS MORPHINE, HYDROMORPHONE, OXYCODONE - Allergies reviewed: Yes - Pre-operative bloodwork completed: Not applicable - Testing (Females < 52 years old): Not applicable - Type and cross match: Not applicable - Electrocardiogram in chart: Not applicable - Chest x-ray: Not applicable - Serum blood glucose: GLUCOSE 94 (06/19/24 09:49) PLASMA READIED FOR OPERATING ROOM OR PROCEDURE - Last ate: Jul@23:59 - Last fluid: Jul@08:30 - Last alcoholic beverage: Not applicable - Last recreational drug use: Not applicable - Last voided/urinary catheter drained: Jul@08:00 - Dentures removed: Not applicable - Glasses removed: Not applicable - Dressed for Operating Room: Yes - All jewelry removed: Yes - All body piercings removed: Not applicable - All undergarments removed: Yes - Operative consent form signed and present No - To be completed -MEDICATIONS . Patient Takes a Beta Karri No Patient takes an Anticoagulant (Blood Thinners, Aspirin, NSAID) No --VALUABLES . Jewelry - In locker Clothes - In locker Locker: Room Number: PATIENT EDUCATION: LEARNING NEEDS ASSESSMENT: I. Learning Preference: Visual Hearing Hands-on Written (in [place] language) II. Barriers to Learning: No Barriers to Learning III. Social Influences Related to Educational Needs: No social barriers to learning IV. Readiness to Learn: Patient Appears ready to learn. EDUCATION TOPICS: Pain Management Readiness to Learn: Patient ready to learn. Individual Topics: Type of pain and location, Pharmacological management strategies, Non-pharmacological strategies, Follow-up Teaching Methods Used: Discussion Teach Back Response: Patient able to teach back critical information about topic. Pre-Procedure Prep Readiness to Learn: Patient ready to learn. Individual Topics: Procedure, Indication, Procedure details, Date, time, location Teaching Methods Used: Discussion Teach Back Response: Patient able to teach back critical information about topic. Pre/Post-Procedure Instructions Readiness to Learn: Patient ready to learn. Individual Topics: Procedure, Resuming activities, Resuming diet, Resuming medications Teaching Methods Used: Discussion Teach Back Response: Patient able to teach back critical information about topic. Prevention of Surgical Site Infections Readiness to Learn: Patient ready to learn. Individual Topics: Hair removal by clipper not shaving, Antimicrobial prophylaxis prior to incision Teaching Methods Used: Discussion Teach Back Response: Patient able to teach back critical information about topic. Discharge Pain Management Plan of Care Education: Pain management PERC pack not needed patient does not have discharge pain management needs. /deanna/ PANTERA MCCORD REGISTERED NURSE Signed: 07/21/2024 09:09 PANTERA MCCORD [facility]
--- OUTSIDE RECORDS SUMMARY | 2024-07-21 06:48 | XMS_ITS | Encounter Summary ---
Author Name Department of [facility] [place] [facility] [place] Organization [place] Address [address] [place] [address] Care Team Providers Care Painter Bottom Name Role Phone ROSARIO ESCALERA Primary Care [...] Reason Pro vider Source Jul 21, 2024 10:48 AM Outpatient Encounter PATIENT CARE IN OR [facility] Encounter Template Text not used by [place] Plan of Treatment: Future Appointments (+ 6 months) and Future Tests (+/- 45 days) The Plan of Treatment section includes future care activities for the patient from all [place] treatmentfacilities. This section includes future appointments and future orders which are active, pending or scheduled. Future Appointments This section includes appointments that were scheduled to occur 6 months from the date of the Encounter, up to a maximum of 20 appointments. The data comes from all [place] treatment facilities. Appointment Date/Time Appointment Type Appointme nt Facility Name Jul 25, 2024 02:30 PM AMBULATORY - NONE [facility] Aug 07, 2024 02:00 PM AMBULATORY - PSYCHIATRY CL [facility] Aug 11, 2024 01:30 PM AMBULATORY - SURGERY [facility] Aug 13, 2024 03:30 PM AMBULATORY - PSYCHIATRY CL [facility] Aug 20, 2024 02:00 PM AMBULATORY - SURGERY [facility] Aug 22, 2024 03:00 PM AMBULATORY - PSYCHIATRY CL [facility] Aug 26, 2024 02:30 PM AMBULATORY - NONE [facility] Aug 26, 2024 03:00 PM AMBULATORY - NONE [facility] Aug 27, 2024 02:45 PM AMBULATORY - NONE [facility] Aug 27, 2024 03:00 PM AMBULATORY - PSYCHIATRY CL [facility] Aug 28, 2024 09:30 AM AMBULATORY - PSYCHIATRY [facility] Aug 29, 2024 01:30 PM AMBULATORY - PSYCHIATRY [facility] Sep 03, 2024 01:00 PM AMBULATORY - PSYCHIATRY [facility] Sep 04, 2024 01:00 PM AMBULATORY - NEUROLOGY [facility] Sep 05, 2024 10:00 AM AMBULATORY - NONE [facility] Sep 25, 2024 01:00 PM AMBULATORY - SURGERY [facility] Oct 03, 2024 01:00 PM AMBULATORY - REHAB MEDICIN E [facility] October 21, 2024 03:00 PM AMBULATORY - PSYCHIATRY [facility] November 03, 2024 02:30 PM AMBULATORY - PSYCHIATRY [facility] November 04, 2024 02:30 PM AMBULATORY - SURGERY [facility] Lab Results: +/- 30 days of the encounter This section includes the Chemistry and Hematology Lab Results on record with [place] for the patient. Radiology Reports and Pathology Reports are provided separately, in subsequent sections. Lab Results This section contains the Chemistry/Hematology Results that were resulted 30 days before or 30 daysafter the date of the Encounter. Date/Time Source Result Type Result - Unit Interpretation Reference Range Specimen Type Comment Jul 15, 2024 03:49 PM [facility] ALLERGY PANEL, ZONE 8 SERUM Specimen Type: SERUM No comment entered. Ordering Provider: SIDDHARTHA ESPINAL Report Released Date/Time: Jul 15, 2024 03:37 PM Reporting Lab: [facility] [address] [facility] [address] Performing Lab: [facility] [id number] [place] [phone] DERMATO PTER <0.10 kU/L <0.34 DERMATOPHAGOIDES FARINEA <0.10 kU/L <0.3 4 CAT EPITHELIUM <0.10 kU/L <0.34 DOG EPITHELIUM <0.10 kU/L <0.34 CANDY GRASS <0.10 kU/L <0.34 BAHIA GRASS <0.10 kU/L <0.34 BERMUDA GRASS <0.10 kU/L <0.34 NOVEMBER GRASS (Oobafit BLUE) <0.10 kU/L <0 .34 COCKROACH, DANISH IgE <0.10 kU/L <0.34 PENICILLIUM NOTATUM <0.10 [...] <0.10 kU/L <0.34 MUGWORT <0.10 kU/L <0.34 QATARI PLANTAIN <0.10 kU/L <0.34 Jul 15, 2024 03:49 PM [facility] IGE SERUM Specimen Type: SERUM No comment entered. Ordering Provider: SIDDHARTHA ESPINAL Report Released Date/Time: Jul 15, 2024 03:37 PM Reporting Lab: [facility] [id number] [place] [phone] Performing Lab: [facility] [address] [facility] [address] IGE <21.0 [IU]/mL <99.9 Social History: Smoking [...] VA-TOBACCO USE EVERY DAY CIGARET [facility] Tobacco Use History This section includes a history of the smoking, or tobacco-related health factors, that were collected on or before the date of the Encounter. The data comes from the [place] facility where the Encounter took place. Date/Time Smoking Status/Tobacco Use Comment F acility Jun 06, 2024 11:30 AM VA-TOBACCO USE ADVICE [facility] Jun 06, 2024 11:30 AM VA-TOBACCO USE DECAL CUTTER NO [facility] Jun 06, 2024 11:30 AM VA-TOBACCO USE EVERY DAY CIGARET MANNY [facility] Jun 06, 2024 11:30 AM VA-TOBACCO USE EVERY DAY ENDS [facility] Jun 06, 2024 11:30 AM VA-TOBACCO USE EVERY DAY OTHER T YPE [facility] Jun 06, 2024 11:30 AM VA-TOBACCO USE MED [facility] Jun 19, 2023 10:00 AM TOBACCO FORMER USER MORE [facility] Advance Directives: All historical and current Section Date Range: From patient's date of to the date document was created. This section includes ALL of a patient's completed or amended [place] Advance and Rescinded Directives. The entries below indicate that a directive exists for the patient, but an actual copy is not included with this document. The data comes from all [facility]. Date Advance Directives Provider Source October [...] NICKIE NE W/O CONTRAST : MARION ZHENG [id number] -1995 M Exm Date: JUL 25, 2024@14:35 Req Phys: SIDDHARTHA ESPINAL Loc: [facility] EVENT EXECUTIVE 1 (Req'g Loc) Img Loc: [facility] CT Service: Unknown [place] [address] (Case [id number] COMPLETE)[facility] CT (CT Detailed) CPT:98492 Reason for Study: conductive hearing loss Clinical History: [address] [id number] Report Status: Verified Date Reported: JUL 28, 2024 Date Verified: JUL 28, 2024 Coagulator E-Sig:/ES/KULDIP MCELROY Report: CT OF [place] [...] Code: Primary Interpreting Staff: KULDIP MCELROY, RADIOLOGIST (Coagulator) /KULDIP WHITAKER CB Jul 25, 2024 02:[address] TEMPORAL BONE W /O CONTRAST: MARION ZHENG [id number] -1995 M Exm Date: JUL 25, 2024@14:34 Req Phys: SIDDHARTHA EPSINAL Loc: [facility] EVENT EXECUTIVE 1 (Req'g Loc) Img Loc: [facility] Service: [place] [address] (Case [id number] COMPLETE)CT TEMPORAL BONE W/O CONTRAST (CT Detailed) CPT:23351 Reason for Study: chronic congestion, right nasal obstruction Clinical History: Report Status: Verified Date Reported: JUL 28, 2024 Date Verified: JUL 28, 2024 Coagulator E-Sig:/ES/KULDIP MCELROY Report: CT TEMPORAL BONE , [...] Code: Primary Interpreting Staff: KULDIP MCELROY, RADIOLOGIST (Coagulator) /[facility]IT[facility]ER [facility] Pathology Reports: +/- 30 [...] OF VAS DEFERENS, COMPLETELY TRANSECTED LUMEN. CPT: 20178 x 2 GROSS DESCRIPTION A. Specimen is [...] Performing Laboratory: Surgical Pathology Report Performed By: [facility] [CLIA# [id number]] [address] [place] [address] $FTR - - - - - - [...] - - MARION ZHENG STANDARD FORM 515 ID:[id number] SEX:M :1995 AGE: 28 LOC:[facility] PCP: DO chirag LaraEEVA RAJU PATHOLOGIST Signed: 07/23/2024 14:14 PAULA HAND [facility] Encounter Notes: All associated encounter notes This section contains the clinical notes associated to the Encounter. Date/Time Encounter Note(s) Provider Source Jul 21, 2024 10:48 AM FLOWSHEET: LOCAL TITLE: CLINICAL FLOWSHEET STANDARD TITLE: FLOWSHEET DATE OF NOTE: JUL 21, 2024@10:48 ENTRY DATE: JUL 21, 2024@10:48:38 AUTHOR: CALEB RODRIGUEZ EXP COSIGNER: URGENCY: STATUS: COMPLETED See linked PDF file /es/ USER JENNIFER Signed: 07/21/2024 10:48 CALEB RODRIGUEZ [facility]
--- OUTSIDE RECORDS SUMMARY | 2024-07-21 07:09 | XMS_ITS | Encounter Summary ---
Author Name [facility] [place] Organization [place] Address [address] [place] [address] Care Team Providers Care Career Development Manager Name Role Phone ROSARIO ESCALERA Primary [...] Reason Pro vider Source Jul 21, 2024 11:09 AM Outpatient Encounter PATIENT CARE IN OR [facility] Encounter Template Text not used by CT Plan of Treatment: Future Appointments (+ 6 months) and Future Tests (+/- 45 days) The Plan of Treatment section includes future care activities for the patient from all CT treatmentfacilities. This section includes future appointments and [...] 2024 02:00 PM AMBULATORY - PSYCHIATRY CL [facility] Aug 11, 2024 01:30 PM AMBULATORY - SURGERY [facility] Aug 13, 2024 03:30 PM AMBULATORY - PSYCHIATRY CL [facility] Aug 20, 2024 02:00 PM AMBULATORY - SURGERY [facility] Aug 22, 2024 03:00 PM AMBULATORY - PSYCHIATRY CL [facility] Aug 26, 2024 02:30 PM AMBULATORY - NONE [facility] Aug 26, 2024 03:00 PM [facility] NONE [facility] Aug 27, 2024 02:45 PM [facility]BULATORY - NONE [facility] Aug 27, 2024 03:00 PM AMBULATORY - PSYCHIATRY CL [facility] Aug 28, 2024 09:30 AM AMBULATORY - PSYCHIATRY [facility] Aug 29, 2024 01:30 PM AMBULATORY - PSYCHIATRY [facility] Sep 03, 2024 01:00 PM AMBULATORY - PSYCHIATRY [facility] Sep 04, 2024 01:00 PM AMBULATORY - NEUROLOGY [facility] Sep 05, 2024 10:00 AM AMBULATORY - NONE [facility] Sep 25, 2024 01:00 PM AMBULATORY - SURGERY [facility] Oct 03, 2024 01:00 PM AMBULATORY - REHAB MEDICIN E [facility] October 21, 2024 03:00 PM AMBULATORY - PSYCHIATRY [facility] November 03, 2024 02:30 PM AMBULATORY - PSYCHIATRY [facility] November 04, 2024 02:30 PM AMBULATORY - SURGERY [facility] Lab Results: +/- 30 days of the encounter This section includes the Chemistry and Hematology Lab Results on record with CT for the patient. Radiology Reports and Pathology [...] Jul 15, 2024 03:37 PM Reporting Lab: [facility] [address] [facility] [address] Performing Lab: [facility] [id number] [place] [id number] DERMATO PTER <0.10 kU/L <0.34 DERMATOPHAGOIDES FARINEA <0.10 kU/L <0.3 4 CAT EPITHELIUM <0.10 kU/L <0.34 DOG EPITHELIUM <0.10 kU/L <0.34 CANDY GRASS <0.10 kU/L <0.34 BAHIA GRASS <0.10 kU/L <0.34 BERMUDA GRASS <0.10 kU/L <0.34 NOVEMBER GRASS (Tripology BLUE) <0.10 kU/L <0 .34 COCKROACH, AZERI [...] <0.10 kU/L <0.34 MUGWORT <0.10 kU/L <0.34 DANISH PLANTAIN <0.10 kU/L <0.34 Jul 15, 2024 03:49 PM [facility] IGE SERUM Specimen Type: SERUM No comment entered. Ordering Provider: SIDDHARTHA ESPINAL Report Released Date/Time: Jul 15, 2024 03:37 PM Reporting Lab: [facility] [id number] [place] [id number] Performing Lab: [facility] [address] [facility] [address] IGE <21.0 [IU]/mL <99.9 Social History: Smoking Status (Most current) and Tobacco Use (All prior to encounter date) This section includes the most current, and the historical, smoking and tobacco- related health factors from the CT facility where the Encounter took place. Current Smoking Status This section includes the most current smoking, or tobacco-related health factor, from the CT facility where the Encounter took place. 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 This section includes ALL of a patient's completed or amended CT Advance and Rescinded Directives. The entries below indicate that a directive exists for the patient, but an actual copy is not included with this document. The data comes from all [facility]. Date Advance Directives Provider Source October 22, 2023 ADVANCE DIRECTIVE DISCUSSION SABINA NAIR [facility] Radiology Reports: +/- 30 days [...] the Encounter. The data comes from all CT treatment facilities. Date/Time Radiology Report Provider Source Jul 25, 2024 02:35 PM P/D CT TEMPORAL NICKIE NE W/O CONTRAST : MARION ZHENG [id number] -1995 M Exm Date: JUL 25, 2024@14:35 Req Phys: SIDDHARTHA ESPINAL Loc: [facility] ENT ANALYTICAL MANAGER 1 (Req'g Loc) Img Loc: [place] CT Service: [place] [address] (Case [id number] COMPLETE)[facility] CT (CT Detailed) CPT:11941 Reason for Study: conductive hearing loss Clinical History: [address] [id number] Report Status: Verified Date Reported: JUL 28, 2024 Date Verified: JUL 28, 2024 Bog Cutter E-Sig:/ES/KULDIP MCELROY Report: CT OF [place] [...] Code: Primary Interpreting Staff: KULDIP MCELROY, RADIOLOGIST (Bog Cutter) /KULDIP WHITAKER CB Jul 25, 2024 02:[address] TEMPORAL BONE W /O CONTRAST: MARION ZHENG [id number] -1995 M Exm Date: JUL 25, 2024@14:34 Req Phys: SIDDHARTHA ESPINAL Loc: [facility] ENT ANALYTICAL MANAGER 1 (Req'g Loc) Img Loc: [facility] CT Service: [place] [address] (Case [id number] COMPLETE)CT TEMPORAL BONE W/O CONTRAST (CT Detailed) CPT:12781 Reason for Study: chronic congestion, right nasal obstruction Clinical History: Report Status: Verified Date Reported: JUL 28, 2024 Date Verified: JUL 28, 2024 Bog Cutter E-Sig:/ES/KULDIP MCELROY Report: CT TEMPORAL BONE , [...] Code: Primary Interpreting Staff: KULDIP MCELROY, RADIOLOGIST (Bog Cutter) /KULDIP WHITAKER [facility] Pathology Reports: +/- 30 [...] the Encounter. The data comes from all CT treatment facilities. Date/Time Pathology Report Provider Source [...] OF VAS DEFERENS, COMPLETELY TRANSECTED LUMEN. CPT: 90318 x 2 GROSS DESCRIPTION A. Specimen is [...] Performed By: [facility] [CLIA# [id number]] [address] [place] [address] $FTR - - - - - - [...] - - MARION ZHENG STANDARD FORM 515 ID:[id number] SEX:M :1995 AGE: 28 LOC:[facility] PCP: DO chirag LaraEEVA RAJU PATHOLOGIST Signed: 07/23/2024 14:14 PAULA HAND [facility] Encounter Notes: All associated encounter notes This section contains the clinical notes associated to the Encounter. Date/Time Encounter Note(s) Provider Source Jul 21, 2024 11:09 AM NURSING FLOWSHEET: LOCAL TITLE: PICIS PACU CLINICAL FLOWSHEET STANDARD TITLE: NURSING FLOWSHEET DATE OF NOTE: JUL 21, 2024@11:09 ENTRY DATE: JUL 21, 2024@11:09:28 AUTHOR: CALEB RODRIGUEZ EXP COSIGNER: URGENCY: STATUS: COMPLETED See linked PDF file /es/ USER PICJAQUAN Signed: 07/21/2024 11:09 CALEB RODRIGUEZ [facility]
--- OUTSIDE RECORDS SUMMARY | 2024-07-30 11:00 | XMS_ITS | Encounter Summary ---
Author Name [facility] [place] Address [address] [place] [address] Care Team Providers Care Field Engineer Name Role Phone ROSARIO ESCALERA Primary [...] Type Encounter Description Reason Provider Source Jul 30, 2024 03:00 PM PHOTOVOLTAIC SUBCONTRACTOR ATTORNEY LAWYER INDIVIDU PHOTOVOLTAIC SUBCONTRACTOR SERVICE - INDIVIDUAL ICD-10-CM Z71.81 Spiritual or quaker counseling BLADIMIR VENCES Encounter Template Text not used by [place] Assessments - Encounter Diagnoses This section includes the primary and secondary diagnoses documented for the Encounter. Date/Time Primary/Secondary Diagnosis Diagnosis Name Provider Source Jul 30, 2024 05:01 PM PRIMARY Spiritual or quaker counseling BLADIMIR VENCES [facility] Plan of Treatment: Future Appointments (+ 6 months) and Future Tests (+/- 45 days) The Plan of Treatment section includes future care activities for the patient from all [place] treatmentfacilities. This section includes future appointments and future orders which are active, pending or scheduled. Future Appointments This section includes appointments that were scheduled to occur 6 months from the date of the Encounter, up to a maximum of 20 appointments. The data comes from all [facility]. Appointment Date/Time Appointment Type Appointme nt Facility Name Aug 07, 2024 02:00 PM AMBULATORY - PSYCHIATRY [facility] Aug 11, 2024 01:30 PM AMBULATORY - SURGERY [facility] Aug 13, 2024 03:30 PM AMBULATORY - PSYCHIATRY [facility] Aug 20, 2024 02:00 PM AMBULATORY - SURGERY [facility] Aug 22, 2024 03:00 PM AMBULATORY - PSYCHIATRY [facility] Aug 26, 2024 02:30 PM AMBULATORY - NONE [facility] Aug 26, 2024 03:00 PM [facility] Aug 27, 2024 02:45 PM AMBULATORY - NONE [facility] Aug 27, 2024 03:00 PM AMBULATORY - PSYCHIATRY [facility] Aug 28, 2024 09:30 AM AMBULATORY - PSYCHIATRY [facility] Aug 29, 2024 01:30 PM AMBULATORY - PSYCHIATRY [facility] Sep 03, 2024 01:00 PM AMBULATORY - PSYCHIATRY [facility] Sep 04, 2024 01:00 PM AMBULATORY - NEUROLOGY [facility] Sep 05, 2024 10:00 AM AMBULATORY - NONE [facility] Sep 25, 2024 01:00 PM AMBULATORY - SURGERY [facility] Oct 03, 2024 01:00 PM AMBULATORY - REHAB MEDICIN E [facility] October 21, 2024 03:00 PM AMBULATORY - PSYCHIATRY [facility] November 03, 2024 02:30 PM AMBULATORY - PSYCHIATRY [facility] November 04, 2024 02:30 PM AMBULATORY - SURGERY [facility] November 11, 2024 09:00 AM AMBULATORY - NONE [facility] Lab Results: +/- 30 days of the encounter This section includes the Chemistry and Hematology Lab Results on record with [place] for the patient. Radiology Reports and Pathology Reports are provided separately, in subsequent sections. Lab Results This section contains the Chemistry/Hematology Results that were resulted 30 days before or 30 daysafter the date of the Encounter. Date/Time Source Result Type Result - Unit Interpretation Reference Range Specimen Type Comment Aug 27, 2024 02:35 PM [facility] VITAMIN D (TOTAL) SERUM Specimen Type: SERUM Comment: VITD One expert panel recommended a target range of 30-40 ng/mL. Ordering Provider: ROSARIO ESCALERA Report Released Date/Time: Jun 25, 2024 10:05 AM Reporting Lab: [address] [address] Performing Lab: [place] [id number] VITAMIN D (TOTAL) 10 ng/mL L 30-60 Aug 27, 2024 02:35 PM [facility] HEPATIC FUNCTION PANEL PLASMA Specimen Type: PLASMA Comment: TP Per package insert reference range for recumbent is 6.0 to 7.8 TP g/dL. Plasma samples will generally have higher values (about TP 0.2 to 0.4 g/dL higher) due to presence of fibrinogen. TRIG REFERENCE RANGE: BORDERLINE HIGH: 150-199 mg/dL HIGH: 200-499 TRIG mg/dL VERY HIGH: >=500 mg/dL CHOL REF RANGE: BORDERLINE HIGH: 200-239 mg/dL HIGH: >=240 mg/dL HDLC Values >60 are a negative risk factor for heart disease. DLDL REF RANGE: NEAR OR ABOVE OPTIMAL: 100-129 mg/dL BORDERLINE DLDL HIGH: 130-159 mg/dL HIGH: 160-189 mg/dL VERY HIGH: >=190 Ordering Provider: ROSARIO ESCALERA Report Released Date/Time: Jun 25, 2024 10:05 AM Reporting Lab: [address] [address] Performing Lab: [address] [address] ALBUMIN 5.0 g/dL H 3.5-4.8 ALKALINE PHOSPHATASE 72 U/L 40-150 ALT/SGPT 27 U/L 0-55 AST/SGOT 25 U/L 10-40 BILIRUBIN,DIRECT 0.1 mg/dL 0.0-0.5 PROTEIN, TOTAL 8.1 g/dL 6.4-8.3 BILIRUBIN, TOTAL 0.4 mg/dL 0.2-1.2 Aug 27, 2024 02:35 PM [facility] LIPID PROFILE PLASMA Specimen Type: PLASMA Comment: TP Per package insert reference range for recumbent is 6.0 to 7.8 TP g/dL. Plasma samples will generally have higher values (about TP 0.2 to 0.4 g/dL higher) due to presence of fibrinogen. TRIG REFERENCE RANGE: BORDERLINE HIGH: 150-199 mg/dL HIGH: 200-499 TRIG mg/dL VERY HIGH: >=500 mg/dL CHOL REF RANGE: BORDERLINE HIGH: 200-239 mg/dL HIGH: >=240 mg/dL HDLC Values >60 are a negative risk factor for heart disease. DLDL REF RANGE: NEAR OR ABOVE OPTIMAL: 100-129 mg/dL BORDERLINE DLDL HIGH: 130-159 mg/dL HIGH: 160-189 mg/dL VERY HIGH: >=190 Ordering Provider: ROSARIO ESCALERA Report Released Date/Time: Jun 25, 2024 03:09 PM Reporting Lab: [address] [address] Performing Lab: [address] [address] CHOLESTEROL 276 mg/dL H 0-199 LDL CHOLESTEROL 192 mg/dL H 0-99 HDL CHOLESTEROL 38 mg/dL L >40 TRIGLYCERIDE 469 mg/dL H 0-149 Jul 15, 2024 03:49 PM [facility] ALLERGY PANEL, ZONE 8 SERUM Specimen Type: SERUM No comment entered. Ordering Provider: SIDDHARTHA ESPINAL Report Released Date/Time: Jul 15, 2024 03:37 PM Reporting Lab: [address] [address] Performing Lab: [address] [address] DERMATO PTER <0.10 kU/L <0.34 DERMATOPHAGOIDES FARINEA [...] <0.10 kU/L <0.34 MUGWORT <0.10 kU/L <0.34 THAI PLANTAIN <0.10 kU/L <0.34 Jul 15, 2024 03:49 PM [facility] IGE SERUM Specimen Type: SERUM No comment entered. Ordering Provider: SIDDHARTHA ESPINAL Report Released Date/Time: Jul 15, 2024 03:37 PM Reporting Lab: [address] [address] Performing Lab: [address] [address] IGE <21.0 [IU]/mL <99.9 Social History: Smoking [...] 2024 11:30 AM VA-TOBACCO USE EVERY DAY [facility] Tobacco Use History This section includes a history of the smoking, or tobacco-related health factors, that were collected on or before the date of the Encounter. The data comes from the [place] facility where the Encounter took place. Date/Time Smoking Status/Tobacco Use Comment F acility Jun 06, 2024 11:30 AM VA-TOBACCO USE ADVICE [facility] Jun 06, 2024 11:30 AM VA-TOBACCO USE ATTORNEY LAWYER NO [facility] Jun 06, 2024 11:30 AM VA-TOBACCO USE EVERY DAY CIGARET MANNY [facility] Jun 06, 2024 11:30 AM VA-TOBACCO USE EVERY DAY ENDS [facility] Jun 06, 2024 11:30 AM VA-TOBACCO USE EVERY DAY OTHER T YPE [facility] Jun 06, 2024 11:30 AM VA-TOBACCO USE MED NO [facility] Jun 19, 2023 10:00 AM TOBACCO FORMER USER MORE 12 [facility] Advance Directives: All historical and current Section [...] 22, 2023 ADVANCE DIRECTIVE DISCUSSION SABINA NAIR [facility] Radiology Reports: +/- 30 days [...] CT TEMPORAL NICKIE NE W/O CONTRAST : MARCEMARION ISAI [id number] -1995 M Exm Date: JUL 25, 2024@14:35 Req Phys: SIDDHARTHA ESPINAL Pat Loc: [facility] ENT REROLLING MACHINE OPERATOR 1 (Req'g Loc) Img Loc: [facility] CT Service: [place] [address] (Case [id number] COMPLETE)[facility] CT (CT Detailed) CPT:34257 Reason for Study: conductive hearing loss Clinical History: [address] [id number] Report Status: Verified Date Reported: JUL 28, 2024 Date Verified: JUL 28, [address] E-Sig:/ES/KULDIP MCELROY Report: CT OF [place] [...] Code: Primary Interpreting Staff: KULDIP MCELROY, RADIOLOGIST (District Court Administrator) /KULDIP WHITAKER [facility] Jul 25, 2024 02:[address] TEMPORAL BONE W /O CONTRAST: MARION ZHENG [id number] -1995 M Exm Date: JUL 25, 2024@14:34 Req Phys: KYLIESIDDHARTHA Lawler Mila Loc: [facility] ENT REROLLING MACHINE OPERATOR 1 (Req'g Loc) Img Loc: [place] [facility] [place] [address] (Case [id number] COMPLETE)CT TEMPORAL BONE W/O CONTRAST (CT Detailed) CPT:69504 Reason for Study: chronic congestion, right nasal obstruction Clinical History: Report Status: Verified Date Reported: JUL 28, 2024 Date Verified: JUL 28, [address] E-Sig:/ES/KULDIP MCELROY Report: CT TEMPORAL BONE , [...] Code: Primary Interpreting Staff: KULDIP MCELROY, RADIOLOGIST (District Court Administrator) /KULDIP WHITAKER [facility] Pathology Reports: +/- 30 days of [...] OF VAS DEFERENS, COMPLETELY TRANSECTED LUMEN. CPT: 13586 x 2 GROSS DESCRIPTION A. Specimen is [...] Performing Laboratory: Surgical Pathology Report Performed By: [facility] [CLIA# [id number]] [address] [place] [address] $FTR - - - - - - [...] - - MARION ZHENG STANDARD FORM 515 ID:[id number] SEX:M :1995 AGE: 28 LOC:[facility] PCP: DO chirag Lara PATHOLOGIST Signed: 07/23/2024 14:14 PAULA HAND [facility] Encounter Notes: All associated encounter notes This section contains the clinical notes associated to the Encounter. Date/Time Encounter Note(s) Provider Source Jul 30, 2024 03:00 PM PASTORAL CARE NOTE : LOCAL TITLE: PHOTOVOLTAIC SUBCONTRACTOR NOTE (T) STANDARD TITLE: PASTORAL CARE NOTE DATE OF NOTE: JUL 30, 2024@15:00 ENTRY DATE: JUL 30, 2024@16:49:29 AUTHOR: BLADIMIR VENCES EXP COSIGNER: URGENCY: STATUS: COMPLETED Henderson logged into [facility] for individual grief support appointment and was open/receptive. Henderson shared continued pursuit on health issues with some new concerning finds. 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 was receptive to exploring. Interventions: presence, active listening, reflective questions, meaning making after grief, grief processing, facilitated story sharing, affirmation, coping tools, encouragement, distress tolerance, validation, support. Plan: requested appointment by C for 08/15/24 @ 3pm. Henderson expressed gratitude. /deanna/ CHAPLAIN BLADIMIR CARLIN Signed: 07/30/2024 17:01 BLADIMIR VENCES [facility]
--- OUTSIDE RECORDS SUMMARY | 2024-08-07 10:00 | XMS_ITS | Encounter Summary ---
Author Name [facility] [place] [facility] [place] [facility] [place] Address [address] [place] [address] Care Team Providers Care Evp And Chief Operating Officer Name Role Phone ROSARIO ESCALERA Primary Care [...] section includes the information on record at [place] for the Encounter. Date/Time Encounter Type Encounter Description Reason Provider Source Aug 07, 2024 02:00 PM PSYTX W PT 30 MINUTES [facility] - IND ICD-10-CM F43.12 Post-traumatic stress disorder, chronic [facility] Encounter Template Text not used by [place] Assessments - Encounter Diagnoses This section includes the primary and secondary diagnoses documented for the Encounter. Date/Time Primary/Secondary Diagnosis Diagnosis Name Provider Source Aug 07, 2024 02:03 PM PRIMARY Post-traumatic stress disorder, chronic [facility] Aug 07, 2024 02:03 PM SECONDARY Personality disorder, unspecified [facility] Aug 07, 2024 02:03 PM SECONDARY Primary insomnia ADDIS CLOUD CB Plan of Treatment: Future Appointments (+ 6 months) and Future Tests (+/- 45 days) The Plan of Treatment section includes future care activities for the patient from [facility] [place] [facility] This section includes future appointments and future orders which are active, pending or scheduled. Future Appointments This section includes appointments that were scheduled to occur 6 months from the date of the Encounter, up to a maximum of 20 appointments. The data comes from all [place] treatment facilities. Appointment Date/Time Appointment Type Appointme nt Facility Name Aug 11, 2024 01:30 PM AMBULATORY - SURGERY [facility] Aug 13, 2024 03:30 PM AMBULATORY - PSYCHIATRY [facility] Aug 20, 2024 02:00 PM AMBULATORY - SURGERY [facility] Aug 22, 2024 03:00 PM AMBULATORY - PSYCHIATRY CL [facility] Aug 26, 2024 02:30 PM AMBULATORY - NONE [facility] Aug 26, 2024 03:00 PM [facility] Aug 27, 2024 02:45 PM AMBULATORY - NONE [facility] Aug 27, 2024 03:00 PM AMBULATORY - PSYCHIATRY CL [facility] Aug 28, 2024 09:30 AM AMBULATORY - PSYCHIATRY CL [facility] Aug 29, 2024 01:30 PM AMBULATORY - PSYCHIATRY CL [facility] Sep 03, 2024 01:00 PM AMBULATORY - PSYCHIATRY CL [facility] Sep 04, 2024 01:00 PM AMBULATORY - NEUROLOGY [facility] Sep 05, 2024 10:00 AM [facility] Sep 25, 2024 01:00 PM AMBULATORY - SURGERY [facility] Oct 03, 2024 01:00 PM AMBULATORY - REHAB MEDICIN [facility] October 21, 2024 03:00 PM AMBULATORY - PSYCHIATRY CL [facility] November 03, 2024 02:30 PM AMBULATORY - PSYCHIATRY CL [facility] November 04, 2024 02:30 PM AMBULATORY - SURGERY [facility] November 11, 2024 09:00 AM [facility] November 13, 2024 02:00 PM AMBULATORY - NONE [facility] Lab Results: +/- 30 days of [...] Type Comment Aug 27, 2024 02:35 PM [facility] VITAMIN D (TOTAL) SERUM Specimen Type: SERUM Comment: VITD One expert panel recommended a target range of 30-40 ng/mL. Ordering Provider: ROSARIO ESCALERA Report Released Date/Time: Jun 25, 2024 10:05 AM Reporting Lab: [address] [address] Performing Lab: [address] [address] VITAMIN D (TOTAL) 10 ng/mL L 30-60 Aug 27, 2024 02:35 PM [facility] LIPID PROFILE PLASMA Specimen [...] Jun 25, 2024 03:09 PM Reporting Lab: [address] [address] Performing Lab: [address] [address] CHOLESTEROL 276 mg/dL H 0-199 LDL CHOLESTEROL 192 mg/dL H 0-99 HDL CHOLESTEROL 38 mg/dL L >40 TRIGLYCERIDE 469 mg/dL H 0-149 Aug 27, 2024 02:35 PM [facility] HEPATIC FUNCTION PANEL PLASMA Specimen Type: PLASMA [...] Jun 25, 2024 10:05 AM Reporting Lab: [address] [address] Performing Lab: [address] [address] ALBUMIN 5.0 g/dL H 3.5-4.8 ALKALINE PHOSPHATASE 72 U/L 40-150 ALT/SGPT 27 U/L 0-55 AST/SGOT 25 U/L 10-40 BILIRUBIN,DIRECT 0.1 mg/dL 0.0-0.5 PROTEIN, TOTAL 8.1 g/dL 6.4-8.3 BILIRUBIN, TOTAL 0.4 mg/dL 0.2-1.2 Jul 15, 2024 03:49 PM [facility] ALLERGY PANEL, ZONE 8 SERUM Specimen Type: SERUM No comment entered. Ordering Provider: SIDDHARTHA ESPINAL Report Released Date/Time: Jul 15, 2024 03:37 PM Reporting Lab: [address] [address] Performing Lab: [address] [address] DERMATO PTER <0.10 kU/L <0.34 DERMATOPHAGOIDES FARINEA <0.10 kU/L <0.3 4 CAT EPITHELIUM <0.10 kU/L <0.34 DOG EPITHELIUM <0.10 kU/L <0.34 CANDY GRASS <0.10 kU/L <0.34 BAHIA GRASS <0.10 kU/L <0.34 BERMUDA GRASS <0.10 kU/L <0.34 JACKIE GRASS ([place] BLUE) <0.10 kU/L <0 .34 COCKROACH, MACEDONIAN IgE <0.10 kU/L <0.34 PENICILLIUM NOTATUM <0.10 [...] <0.10 kU/L <0.34 MUGWORT <0.10 kU/L <0.34 BRAZILIAN PLANTAIN <0.10 kU/L <0.34 Jul 15, 2024 03:49 PM [facility] IGE SERUM Specimen Type: SERUM No comment entered. Ordering Provider: SIDDHARTHA ESPINAL Report Released Date/Time: Jul 15, 2024 03:37 PM Reporting Lab: [address] [address] Performing Lab: [address] [address] IGE <21.0 [IU]/mL <99.9 Social History: Smoking Status (Most current) and Tobacco Use (All prior to encounter date) This section includes the most current, and the historical, smoking and tobacco- related health factors from the [place] facility where the Encounter took place. Current Smoking Status This section includes the most current smoking, or tobacco-related health factor, from the [place] facility where the Encounter took place. Date/Time Current Smoking Status Comment Facil ity May 18, 2023 02:00 PM [place]-TOBAC[place] QUIT 1 TO < 5 YRS [facility] Tobacco Use History This section includes a history of the smoking, or tobacco-related health factors, that were collected on or before the date of the Encounter. The data comes from the [place] facility where the Encounter took place. Date/Time Smoking Status/Tobacco Use Comment F acility May 18, 2023 02:00 PM [place]-TOBACCO QUIT 1 TO < 5 YRS [facility] Advance Directives: All historical and current Section Date Range: From patient's date of to the date document was created. This section includes ALL of a patient's completed or amended VA Advance and Rescinded Directives. The entries below indicate that a directive exists for the patient, but an actual copy is not included with this document. The data comes from all [place] facilities. Date Advance Directives Provider Source October 22, 2023 ADVANCE DIRECTIVE DISCUSSION [facility] Radiology Reports: +/- 30 days of the [...] the Encounter. The data comes from all [place] treatment facilities. 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 1 (Req'g Loc) Img Loc: [place] CT Service: [place] [address] (Case [id number] COMPLETE)[facility] CT (CT Detailed) CPT:63597 Reason for Study: conductive hearing loss Clinical History: [address] [id number] Report Status: Verified Date Reported: JUL 28, 2024 Date Verified: JUL 28, 2024 House Manager E-Sig:/ES/KULDIP MCELROY Report: [facility] [...] Code: Primary Interpreting Staff: KULDIP MCELROY, RADIOLOGIST (House Manager) /KULDIP WHITAKER [facility] Jul 25, 2024 02:[address] TEMPORAL BONE W /O CONTRAST: MARION ZHENG [id number] -1995 M Exm Date: JUL 25, 2024@14:34 Req Phys: SIDDHARTHA ESPINAL Loc: [facility] MACHINING DEPARTMENT SUPERVISOR 1 (Req'g Loc) Img Loc: [place] [facility] Service: [place] [address] (Case [id number] COMPLETE)CT TEMPORAL BONE W/O CONTRAST (CT Detailed) CPT:90453 Reason for Study: chronic congestion, right nasal obstruction Clinical History: Report Status: Verified Date Reported: JUL 28, 2024 Date Verified: JUL 28, 2024 House Manager E-Sig:/ES/KULDIP MCELROY Report: CT TEMPORAL BONE [...] Code: Primary Interpreting Staff: KULDIP MCELROY, RADIOLOGIST (House Manager) /KULDIP WHITAKER [facility] Pathology Reports: +/- 30 days of [...] the Encounter. The data comes from all [place] treatment facilities. Date/Time Pathology Report Provider Source [...] OF VAS DEFERENS, COMPLETELY TRANSECTED LUMEN. CPT: 55954 x 2 GROSS DESCRIPTION A. Specimen is [...] in one cassette for sectioning at embedding. PEIRRE /deanna/ PAULA HAND PATHOLOGIST Signed Jul 23, 2024@14:14 Performing Laboratory: Surgical Pathology Report Performed By: [facility] [CLIA# [id number]] [address] [place] [address] $FTR - - - - - - [...] - - MARION ZHENG STANDARD FORM 515 ID:[id number] SEX:M :1995 AGE: 28 LOC:[facility] PCP: Rosario Escalera DO /alexandro HAND PATHOLOGIST Signed: 07/23/2024 14:14 PAULA HAND [facility] Encounter Notes: All associated encounter notes This section contains the clinical notes associated to the Encounter. Date/Time Encounter Note(s) Provider Source Aug 07, 2024 08:17 AM MENTAL HEALTH COUN SELING NOTE: LOCAL TITLE: PSYCHIATRY PSYCHOTHERAPY INDIVIDUAL NOTE (T) STANDARD TITLE: MENTAL HEALTH COUNSELING NOTE DATE OF NOTE: AUG 07, 2024@08:17 ENTRY DATE: AUG 07, 2024@08:17:05 AUTHOR: [facility] CL[facility]D COSIGNER: URGENCY: STATUS: COMPLETED Session Time and Duration: 2:00 pm - 2:32 pm 32 minutes assessment: 02.09.2023 DIAGNOSIS: PTSD (SC); Insomnia; Depression; Personality D/O, Cluster B traits PATIENT'S STRENGTHS/ABILITIES: Self-Identified: moved to new house Provider Identified: able to tolerate grief support groups, new move stressors w/o SI Active partnership in [employer] 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 [place] is 28 y/o male w/100% SC being treated in Specialty for therapy. He presents on time to scheduled in person therapy appt. He shares a difficult week as he was triggered in grief on social media on 08.05. He manages thru isolation/avoidance and w/daily improvement/reduction since then. Review of healthy attempts to remain mindful of relationships & responsibility during this time and absence of SI when triggered. They discuss his ability to tolerate discussing grief w/child's therapist (when he returns- no appt scheduled). [place] is able to begin processing stuck point related to fault/guilt in appt. He demonstrates an understanding w/natural expression of emotions towards ends of discussion. He also shares struggle w/not burdening others w/his grief; they review d/t time limitations they will discuss more at the next appt. Positive reinforcement for his efforts and gains made. is calm and stable at the end of the session with no SI/HI noted. INTERVENTIONS: Assessed mental health status and reviewed events since last session. SW assesses SI/HI. SW reviews the goals for session. SW offers emotional support and uses active listening. SW uses Socratic Dialogue and promotion of awareness and processing of stuck points related to of his spouse. SW offers grief support and education as they review natural emotions in grief/trauma. SW provides positive reinforcement in his ability to remain connected during appt today and discuss his trauma. 'S PARTICIPATION: x Actively participated in discussion x Has a better understanding of therapeutic issues x Understood or demonstrated a new strategy/skill x Willing to practice discussed strategy/skill x Agrees to continue working towards treatment goals PLAN/HOMEWORK: 1. [place] to follow up with this SW for therapy 2. [place] to call clinic/[facility] as needed in between sessions 3. medication mgmt. as scheduled 4. to follow Suicide Prevention plan from Mar 23, 2023. MENTAL STATUS EXAM: ORIENTATION AND CONSCIOUSNESS: Alert and attentive, Alert and oriented x 3 APPEARANCE AND BEHAVIOR: Cooperative and reasonable, walks independently, well kempt SPEECH: Normal rate/rhythm LANGUAGE: Intact MOOD AND AFFECT: Mood Depressed, Affect flat- minimal range; maintains eye contact w/restricted tearfulness towards end of appt PERCEPTUAL DISTURBANCE (Hallucinations, Illusions): None THOUGHT PROCESS AND ASSOCIATION: Normal, coherent THOUGHT CONTENT (delusions, Obsessions, etc.): No unusual thought content MEMORY: Intact SUICIDAL OR VIOLENT IDEATION: He denies SI/HI now or since last appt. He reports he would be okay if he did not wake up but is absent of SI. Safety plan developed on Mar. [place] presents as low acute and chronic intermediate risk of suicide w/o imminent risk of harm to self or others at this time. Risk Factors: ( ) Access to Means: confirms no guns ( ) Plans for Suicide/Preparatory Behaviors (x) [...] in Treatment Will follow up with the monthly [place] is aware to contact the clinic or the 's Crisis Line with concerns prior to the next scheduled visit. /deanna/ ADDIS HARDY CLINICIAL MEDICAL SUPPLY TECHNICIAN Signed: 08/07/2024 14:55 [facility]
--- OUTSIDE RECORDS SUMMARY | 2024-08-11 09:30 | XMS_ITS | Encounter Summary ---
Author Name [facility] ([place]) [facility] Address [address] [place] [address] Care Team Providers Care Sample Dye Mixer Name Role Phone ROSARIO ESCALERA Primary Care Provider [facility] Insurance Providers: All historical and current [...] section includes the information on record at [place] for the Encounter. Date/Time Encounter Type Encounter Description Reason Provider Source Aug 11, 2024 01:30 PM OFFICE O/P EST MOD 30 MIN OTOLARYNGOLOGY/EN T ICD-10-CM R09.81 Nasal congestion SIDDHARTHA ESPINAL [facility] Encounter Template Text not used by [place] Assessments - Encounter Diagnoses This section includes the primary and secondary diagnoses documented for the Encounter. Date/Time Primary/Secondary Diagnosis Diagnosis Name Provider Source Aug 11, 2024 04:32 PM PRIMARY Nasal congestion SIDDHARTHA ESPINAL [facility] Aug 11, 2024 04:32 PM SECONDARY Hypertrophy of adenoids SIDDHARTHA EPSINAL [facility] Plan of Treatment: Future Appointments (+ 6 months) and Future Tests (+/- 45 days) The Plan of Treatment section includes future care activities for the patient from all [place] treatmentfacity hospital. This section includes future appointments and future orders which are active, pending or scheduled. Future Appointments This section includes appointments that were scheduled to occur 6 months from the date of the Encounter, up to a maximum of 20 appointments. The data comes from all [place] treatment facilities. Appointment Date/Time Appointment Type Appointme nt Facility Name Aug 13, 2024 03:30 PM AMBULATORY - PSYCHIATRY [facility] Aug 20, 2024 02:00 PM AMBULATORY - SURGERY [facility] Aug 22, 2024 03:00 PM AMBULATORY - PSYCHIATRY [facility] Aug 26, 2024 02:30 PM [facility]ORY - NONE [facility] Aug 26, 2024 03:00 PM AMBULATORY - NONE [facility] [facility] Aug 27, 2024 02:45 PM AMBULATORY - NONE [facility] Aug 27, 2024 03:00 PM AMBULATORY - PSYCHIATRY [facility] Aug 28, 2024 09:30 AM AMBULATORY - PSYCHIATRY [facility] Aug 29, 2024 01:30 PM AMBULATORY - PSYCHIATRY CL [facility] Sep 03, 2024 01:00 PM AMBULATORY - PSYCHIATRY [facility] Sep 04, 2024 01:00 PM AMBULATORY - NEUROLOGY [facility] Sep 05, 2024 10:00 AM AMBULATORY - NONE [facility] [facility] Sep 25, 2024 01:00 PM AMBULATORY - SURGERY [facility] Oct 03, 2024 01:00 PM AMBULATORY - REHAB MEDICIN E [facility] October 21, 2024 03:00 PM AMBULATORY - PSYCHIATRY [facility] November 03, 2024 02:30 PM AMBULATORY - PSYCHIATRY [facility] November 04, 2024 02:30 PM AMBULATORY - SURGERY [facility] November 11, 2024 09:00 AM AMBULATORY - NONE [place] [facility] November 13, 2024 02:00 PM AMBULATORY - NONE [facility] [facility] Nov 17, 2024 11:00 AM AMBULATORY - PSYCHIATRY [facility] Lab Results: +/- 30 days [...] Type Comment Aug 27, 2024 02:35 PM [facility] VITAMIN D (TOTAL) SERUM Specimen Type: SERUM Comment: VITD One expert panel recommended a target range of 30-40 ng/mL. Ordering Provider: ROSARIO ESCALERA Report Released Date/Time: Jun 25, 2024 10:05 AM Reporting Lab: [address] [address] Performing Lab: [address] [address] VITAMIN D (TOTAL) 10 ng/mL L 30-60 Aug 27, 2024 02:35 PM [facility] LIPID PROFILE PLASMA Specimen Type: [...] Jun 25, 2024 03:09 PM Reporting Lab: [address] [address] Performing Lab: [address] [address] CHOLESTEROL 276 mg/dL H 0-199 LDL CHOLESTEROL 192 mg/dL H 0-99 HDL CHOLESTEROL 38 mg/dL L >40 TRIGLYCERIDE 469 mg/dL H 0-149 Aug 27, 2024 02:35 PM [facility] HEPATIC FUNCTION PANEL PLASMA Specimen Type: PLASMA [...] Jun 25, 2024 10:05 AM Reporting Lab: [address] [address] Performing Lab: [address] [address] ALBUMIN 5.0 g/dL H 3.5-4.8 ALKALINE PHOSPHATASE 72 U/L 40-150 ALT/SGPT 27 U/L 0-55 AST/SGOT 25 U/L 10-40 BILIRUBIN,DIRECT 0.1 mg/dL 0.0-0.5 PROTEIN, TOTAL 8.1 g/dL 6.4-8.3 BILIRUBIN, TOTAL 0.4 mg/dL 0.2-1.2 Jul 15, 2024 03:49 PM [facility] ALLERGY PANEL, ZONE 8 SERUM Specimen Type: SERUM No comment entered. Ordering Provider: SIDDHARTHA ESPINAL Report Released Date/Time: Jul 15, 2024 03:37 PM Reporting Lab: [address] [address] Performing Lab: [address] [address] DERMATO PTER <0.10 kU/L <0.34 DERMATOPHAGOIDES FARINEA <0.10 kU/L <0.3 4 CAT EPITHELIUM <0.10 kU/L <0.34 DOG EPITHELIUM <0.10 kU/L <0.34 CANDY GRASS <0.10 kU/L <0.34 BAHIA GRASS <0.10 kU/L <0.34 BERMUDA GRASS <0.10 kU/L <0.34 JACKIE GRASS ([place] BLUE) <0.10 kU/L <0 .34 COCKROACH, SURINAMESE IgE <0.10 kU/L <0.34 PENICILLIUM NOTATUM <0.10 [...] <0.10 kU/L <0.34 MUGWORT <0.10 kU/L <0.34 AMHARIC PLANTAIN <0.10 kU/L <0.34 Jul 15, 2024 03:49 PM [facility] IGE SERUM Specimen Type: SERUM No comment entered. Ordering Provider: SIDDHARTHA ESPINAL Report Released Date/Time: Jul 15, 2024 03:37 PM Reporting Lab: [address] [address] Performing Lab: [address] [address] IGE <21.0 [IU]/mL <99.9 Social History: Smoking Status (Most current) and Tobacco Use (All prior to encounter date) This section includes the most current, and the historical, smoking and tobacco- related health factors from the [place] facility where the Encounter took place. Current Smoking Status This section includes the most current smoking, or tobacco-related health factor, from the [place] facility where the Encounter took place. Date/Time Current Smoking Status Comment Facil ity Jun 06, 2024 11:30 AM VA-TOBACCO USE EVERY DAY MARIIAET MANNY [facility] Tobacco Use History This section includes a history of the smoking, or tobacco-related health factors, that were collected on or before the date of the Encounter. The data comes from the [place] facility where the Encounter took place. Date/Time Smoking Status/Tobacco Use Comment F acility Jun 06, 2024 11:30 AM VA-TOBACCO USE ADVICE [facility] Jun 06, 2024 11:30 AM VA-TOBACCO USE BUILDING CODE INSPECTOR NO [facility] Jun 06, 2024 11:30 AM VA-TOBACCO USE EVERY DAY CIGARET MANNY [facility] Jun 06, 2024 11:30 AM VA-TOBACCO USE EVERY DAY ENDS [facility] Jun 06, 2024 11:30 AM VA-TOBACCO USE EVERY DAY OTHER T YPE [facility] Jun 06, 2024 11:30 AM VA-TOBACCO USE MED NO [facility] Jun 19, 2023 10:00 AM TOBACCO FORMER USER MORE 12 [facility] Advance Directives: All historical and current Section Date Range: From patient's date of to the date document was created. This section includes ALL of a patient's completed or amended [place] Advance and Rescinded Directives. The entries below indicate that a directive exists for the patient, but an actual copy is not included with this document. The data comes from all [place] facilities. Date Advance Directives Provider Source October 22, 2023 ADVANCE DIRECTIVE DISCUSSION SABINA NAIR [facility] Radiology Reports: +/- 30 days of the [...] the Encounter. The data comes from all [place] treatment facilities. Date/Time Radiology Report Provider Source Jul 25, 2024 02:35 PM P/D CT TEMPORAL NICKIE NE W/O CONTRAST : MARCEMARION ISAI [id number] -1995 M Exm Date: JUL 25, 2024@14:35 Req Phys: SIDDHARTHA ESPINAL Pat Loc: [facility] METAL STUD FRAMER 1 (Req'g Loc) Img Loc: [facility] Service: [place] [address] (Case [id number] COMPLETE)[facility] CT (CT Detailed) CPT:78568 Reason for Study: conductive hearing loss Clinical History: [address], [place] [address] Report Status: Verified Date Reported: JUL 28, 2024 Date Verified: JUL 28, 2024 Chemical Plant Operator E-Sig:/ES/KULDIP MCELROY Report: CT OF [facility] [...] Code: Primary Interpreting Staff: KULDIP MCELROY, RADIOLOGIST (Chemical Plant Operator) /KULDIP WHITAKER [facility] Jul 25, 2024 02:[address] TEMPORAL BONE W /O CONTRAST: MARION ZHENG [id number] -1995 M Exm Date: JUL 25, 2024@14:34 Req Phys: KYLIESIDDHARTHA Nuris Zaragoza Loc: [facility] METAL STUD FRAMER 1 (Req'g Loc) Img Loc: [place] Service: [place] [address] (Case [id number] COMPLETE)CT TEMPORAL BONE W/O CONTRAST (CT Detailed) CPT:63887 Reason for Study: chronic congestion, right nasal obstruction Clinical History: Report Status: Verified Date Reported: JUL 28, 2024 Date Verified: JUL 28, 2024 Chemical Plant Operator E-Sig:/ES/KULDIP MCELROY Report: CT TEMPORAL BONE [...] Code: Primary Interpreting Staff: KULDIP MCELROY, RADIOLOGIST (Chemical Plant Operator) /KULDIP WHITAKER CB Pathology Reports: +/- 30 [...] the Encounter. The data comes from all [place] treatment facilities. Date/Time Pathology Report Provider Source Sep 08, 2024 10:46 AM LR SURGICAL PATHOL OGY REPORT: LOCAL TITLE: LR SURGICAL PATHOLOGY REPORT STANDARD TITLE: PATHOLOGY REPORT DATE OF NOTE: SEP 08, 2024@10:46 ENTRY DATE: SEP 08, 2024@10:46 AUTHOR: YVROSE KEBEDE EXP COSIGNER: URGENCY: STATUS: COMPLETED $APHDR - [...] - PATHOLOGY REPORT Accession No. [id number] [id number] - - - - - - - - - - - - - - - - - - - - - - - - - - - - - - - - - - - - - - - - $TEXT Submitted by: BHARATHI JOHNS Date obtained: Sep 05, 2024 11:06 - - - - - - - - - - - - - - - - - - - - - - - - - - - - - - - - - - - - - - - - Specimen (Received Sep 05, 2024 11:07): A-NASOPHARYNGEAL MASS LYMPHOMA PROTOCOL - - - - - - - [...] - - - - - PREOPERATIVE DIAGNOSIS: HYPERTROPHIC ADENOIDS - - - - - - - [...] - - - - - POSTOPERATIVE DIAGNOSIS: HYPERTROPHIC ADENOIDS Surgeon/physician: BHARATHI JOHNS Current Surgeon: Eugenia Ruffin Attending Surgeon: Bharathi Johns =-=-=-=-=-=-=-=-=-=-=-=-=-=-=-=-=-= -=-=-=-=-=-=-=-=-=-=-=-=-=-=-=-=-=- =-=-=-=-= - - - - - - - - - - - - - - - - - - - - - - - - - - - - - - - - - - - - - - - - PATHOLOGY REPORT Accession No. [id number] - - - - - - - - - - - - - - - - - - - - - - - - - - - - - - - - - - - - - - - - Diagnosis Flow Cytometry RLLYMP Reflex report performed by [facility], [facility] [place], [address] [place] [address], specimen #[id number], electronically signed by Fadia Pizarro M.D. FLOW CYTOMETRY (Final result) INTERPRETATION There is no immunophenotypic evidence of involvement by a T-cell lymphoproliferative disorder in this limited sample. Correlation with the histopathologic and clinical findings is suggested. SEE COMPLETE REPORT(S) IN [facility] GROSS DESCRIPTION Specimen is received fresh for frozen section, labeled with the patient's name, medical record number and nasopharyngeal mass . It consists of 2 frey-white soft tissue fragments measuring 0.3 to 0.7 cm in greatest dimension. A portion of the specimen is submitted in RPMI and sent for flow cytometry at [facility]. The remainder of the specimen is submitted in 1 cassette. PIERRE /deanna/ YVROSE KEBEDE PATHOLOGIST Signed Sep 08, 2024@10:46 Performing Laboratory: Surgical Pathology Report Performed By: [facility] [CLIA# [id number]] [address] [place] [address] $FTR - - - - - - - - - - - - - - - - - - - - - - - - - - - - - - - - - - - - - - - - (End of report) YVROSE KEBEDE [facility] Date Sep 08, 2024 - - - - - - - - - - - - - - - - - - - - - - - - - - - - - - - - - - - - - - - - MARION ZHENG STANDARD FORM 515 ID:[id number] SEX:M :1995 AGE: 29 LOC:[facility] PCP: DO chirag Lara PATHOLOGIST Signed: 09/08/2024 10:46 YVROSE KEBEDE [facility] Jul 23, 2024 02:14 PM LR SURGICAL [...] OF VAS DEFERENS, COMPLETELY TRANSECTED LUMEN. CPT: 23926 x 2 GROSS DESCRIPTION A. Specimen is [...] Performing Laboratory: Surgical Pathology Report Performed By: [facility] [CLIA# [id number]] [address] [place] [address] $FTR - - - - - - [...] - - MARION ZHENG STANDARD FORM 515 ID:[id number] SEX:M :1995 AGE: 28 LOC:[facility] PCP: DO chirag Lara PATHOLOGIST Signed: 07/23/2024 14:14 PAULA HAND [facility] Encounter Notes: All associated encounter notes This section contains the clinical notes associated to the Encounter. Date/Time Encounter Note(s) Provider Source Aug 11, 2024 01:52 PM OTOLARYNGOLOGY OUT PATIENT NOTE: LOCAL TITLE: ENT OUTPATIENT CLINIC NOTE STANDARD TITLE: OTOLARYNGOLOGY OUTPATIENT NOTE DATE OF NOTE: AUG 11, 2024@13:52 ENTRY DATE: AUG 11, 2024@13:52:08 AUTHOR: SIDDHARTHA ESPINAL COSIGNER: URGENCY: STATUS: COMPLETED The patient was seen, examined and discussed with Attending Physician, Dr. Feldman who agrees with the management plan. MEDICATION RECONCILIATION MEDICATION RECONCILIATION REPORT reviewed and [...] list of medications. TOTAL TIME SPENT: Spent 22 minutes in care of this patient today including review of records, exam, and placing orders. CC: Follow-up for nasal congestion and right nasal obstruction HPI: 28-year-old male returns to the ENT clinic for follow-up for nasal congestion and right nasal obstruction. Patient had a tonsillectomy [place] [address] Garcia. He states he has had a longstanding history of nasal congestion however he felt improved for short amount of time after the tonsillectomy and has since returned. He has tried multiple rdnd-fdy-qtalypc oral antihistamines, nasal sprays and decongestants with minimal relief. He complains of left aural fullness which improves with auto insufflation. He has not had a recent hearing test and he does not wear hearing aids. He states he has had a longstanding history of decreased hearing in his ears since the . He denies any recent sinus infections requiring antibiotics. He denies any otalgia or otorrhea. He denies any other ENT complaints. Review of Systems: a 14-point ROS completed, pertinent positives and negatives as per HPI. PMH/PSH: reviewed in CPRS Allergies: reviewed in CPRS Medications: reviewed in CPRS Physical Exam: Focused otic and nasal exams GENERAL: Appears well developed, well nourished RESPIRATION: Breathing comfortably on room air, no stridor CV: No clubbing/cyanosis/edema in hands EYES: EOM Intact, sclera normal NEURO: AAOx3, Cranial nerves 2-12 intact and symmetric bilaterally HEAD AND FACE: Skin with no masses or lesions, sinuses nontender to palpation EARS: no pinna, tragal or mastoid tenderness b/l, Right ear: Free and clear of cerumen or keratinous debris, skin of the EAC is intact without lesions or masses, serous effusion behind the Left ear: Free and clear of cerumen or keratinous debris, skin of the EAC is intact without lesions or masses, serous effusion behind the TM NOSE: Bilateral erythemic nasal cavities and hypertrophic turbinates Imaging: Report: CT OF PARANASAL AIR SINUSES , 07/25/2024 . Comparison : None . Clinical Information : 28-year-old male with history of chronic sinusitis . CT of the paranasal air sinuses for further evaluation . Findings : Deviated nasal septum with bony spur to the right soft tissue in the roof of the nasopharynx is likely hypertrophic adenoid. Soft tissue narrows the nasopharyngeal airway and indents the soft palate . Bilateral frontal, anterior and posterior ethmoid air cells , bilateral sphenoid , bilateral maxillary sinus are normal . No mucosal thickening or retention cyst within these sinuses . Ostiomeatal complex is patent . No evidence of [...] Erich Mcelroy MD On 07/28/2024 2:02 PM Report: CT TEMPORAL BONE , 07/25/2024 . Comparison: None . Clinical information : 28-year-old male presenting with history of fullness in the ear. CT is requested for further evaluation. Impression: Fluid in bilateral middle ear cavities and mastoid air cells, right side more than left. Fluid surrounding the ossicles in the middle ear. Differentials include otitis media, eustachian tube dysfunction. No bony erosion or ossicular chain disruption . High positioning of the left jugular bulb. Finalized by Erich Mcelroy MD On 07/28/2024 11:38 AM Assessment: 28-year-old male returns to the ENT clinic for follow-up for nasal congestion and right nasal obstruction. Patient had a tonsillectomy in [address] Garcia. He states he has had a longstanding history of nasal congestion however he felt improved for short amount of time after the tonsillectomy and has since returned. He has tried multiple uxhv-rvn-hceusfs oral antihistamines, nasal sprays and decongestants with minimal relief. He complains of left aural fullness which improves with auto insufflation. He has not had a recent hearing test and he does not wear hearing aids. He states he has had a longstanding history of decreased hearing in his ears since the . He denies any recent sinus infections requiring antibiotics. He denies any otalgia or otorrhea. Plan: -Dr. Feldman evaluated the patient and discussed surgical procedures such as adenoidectomy, turbinate reduction and possible bilateral myringotomies, he discussed risks and benefits of the surgical procedures and answered the patient's questions, patient declines myringotomies however he would like to proceed with adenoidectomy and turbinate reduction -Imed consent was signed and patient was taken to Suni Pineda RN equipment coordinator to schedule adenoidectomy and bilateral turbinate reduction This electronic medical record note was created using voice recognition software. Despite proofreading, typographical or grammatical errors may be present that may affect the meaning of this content. Please call with any questions. /deanna/ SIDDHARTHA ESPINAL NURSE PRACTITIONER Signed: 08/11/2024 16:32 SIDDHARTHA ESPINAL [facility]
--- OUTSIDE RECORDS SUMMARY | 2024-08-13 11:30 | XMS_ITS | Encounter Summary ---
Author Name [facility] Organization [facility] Address [address] [place] [address] Care Team Providers Care Plant Protection Supervisor Name Role Phone ROSARIO ESCALERA Primary Care [...] Type Encounter Description Reason Provider Source Aug 13, 2024 03:30 PM PSYTX W PT 60 MINUTES INTERVNTION BIOMED CARE IND ICD-10-CM F51.01 Primary insomnia NAA LOPEZ Encounter Template Text not used by [place] Assessments - Encounter Diagnoses This section includes the primary and secondary diagnoses documented for the Encounter. Date/Time Primary/Secondary Diagnosis Diagnosis Name Provider Source Aug 13, 2024 04:31 PM PRIMARY Primary insomnia NAA LOPEZ [facility] Aug 13, 2024 04:31 PM SECONDARY Major depressive disorder, single episode, unspecified NAA LOPEZ [facility] Aug 13, 2024 04:31 PM SECONDARY Personality disorder, unspecified NAA LOPEZ [facility] Aug 13, 2024 04:31 PM SECONDARY Post-traumatic stress disorder, chronic NAA LOPEZ [facility] Aug 13, 2024 04:31 PM SECONDARY Tobacco use NAA LOPEZ [facility] Plan of Treatment: Future Appointments (+ 6 months) and Future Tests (+/- 45 days) The Plan of Treatment section includes future care activities for the patient from [facility] This section includes future appointments and future orders which are active, pending or scheduled. Future Appointments This section includes appointments that were scheduled to occur 6 months from the date of the Encounter, up to a maximum of 20 appointments. The data comes from all [place] treatment [facility]. Appointment Date/Time Appointment Type Appointme nt Facility Name Aug 20, 2024 02:00 PM AMBULATORY - SURGERY [facility] Aug 22, 2024 03:00 PM AMBULATORY - PSYCHIATRY [facility] Aug 26, 2024 02:30 PM AMBULATORY - NONE [facility] Aug 26, 2024 03:00 PM AMBULATORY - NONE [facility] Aug 27, 2024 02:45 PM AMBULATORY - NONE [facility] Aug 27, 2024 03:00 PM [facility]ATORY [facility]ATRY [facility] Aug 28, 2024 09:30 AM AMBULATORY - PSYCHIATRY [facility] Aug 29, 2024 01:30 PM AMBULATORY - PSYCHIATRY [facility] Sep 03, 2024 01:00 PM AMBULATORY - PSYCHIATRY [facility] Sep 04, 2024 01:00 PM AMBULATORY - NEUROLOGY [facility] Sep 05, 2024 10:00 AM AMBULATORY - NONE [facility] Sep 25, 2024 01:00 PM AMBULATORY - SURGERY [facility] Oct 03, 2024 01:00 PM AMBULATORY - REHAB MEDICIN E [facility] October 21, 2024 03:00 PM AMBULATORY - PSYCHIATRY [facility] November 03, 2024 02:30 PM AMBULATORY - PSYCHIATRY [facility] November 04, 2024 02:30 PM AMBULATORY - SURGERY [facility] November 11, 2024 09:00 AM [facility] November 13, 2024 02:00 PM AMBULATORY - NONE [facility] Nov 17, 2024 11:00 AM AMBULATORY - PSYCHIATRY [facility] Dec 01, 2024 08:30 AM AMBULATORY - PSYCHIATRY [facility] Lab Results: +/- 30 days of the [...] Type Comment Aug 27, 2024 02:35 PM [facility] VITAMIN D (TOTAL) SERUM Specimen Type: SERUM Comment: VITD One expert panel recommended a target range of 30-40 ng/mL. Ordering Provider: ROSARIO ESCALERA Report Released Date/Time: Jun 25, 2024 10:05 AM Reporting Lab: [address] [address] Performing Lab: [address] [address] VITAMIN D (TOTAL) 10 ng/mL L 30-60 Aug 27, 2024 02:35 PM [facility] HEPATIC FUNCTION PANEL PLASMA Specimen Type: [...] Jun 25, 2024 10:05 AM Reporting Lab: [address] [address] Performing Lab: [address] [address] ALBUMIN 5.0 g/dL H 3.5-4.8 ALKALINE PHOSPHATASE 72 U/L 40-150 ALT/SGPT 27 U/L 0-55 AST/SGOT 25 U/L 10-40 BILIRUBIN,DIRECT 0.1 mg/dL 0.0-0.5 PROTEIN, TOTAL 8.1 g/dL 6.4-8.3 BILIRUBIN, TOTAL 0.4 mg/dL 0.2-1.2 Aug 27, 2024 02:35 PM [facility] LIPID PROFILE PLASMA Specimen Type: PLASMA [...] Jun 25, 2024 03:09 PM Reporting Lab: [address] [address] Performing Lab: [address] [address] CHOLESTEROL 276 mg/dL H 0-199 LDL CHOLESTEROL 192 mg/dL H 0-99 HDL CHOLESTEROL 38 mg/dL L >40 TRIGLYCERIDE 469 mg/dL H 0-149 Jul 15, 2024 03:49 PM [facility] ALLERGY PANEL, ZONE 8 SERUM Specimen Type: SERUM No comment entered. Ordering Provider: SIDDHARTHA ESPINAL Report Released Date/Time: Jul 15, 2024 03:37 PM Reporting Lab: [address] [address] Performing Lab: [address] [address] DERMATO PTER <0.10 kU/L <0.34 DERMATOPHAGOIDES FARINEA <0.10 kU/L <0.3 4 CAT EPITHELIUM <0.10 kU/L <0.34 DOG EPITHELIUM <0.10 kU/L <0.34 CANDY GRASS <0.10 kU/L <0.34 BAHIA GRASS <0.10 kU/L <0.34 BERMUDA GRASS <0.10 kU/L <0.34 NOVEMBER GRASS ([place] BLUE) <0.10 kU/L <0 .34 COCKROACH, SWEDISH IgE <0.10 kU/L <0.34 PENICILLIUM NOTATUM <0.10 [...] <0.10 kU/L <0.34 MUGWORT <0.10 kU/L <0.34 FAROESE PLANTAIN <0.10 kU/L <0.34 Jul 15, 2024 03:49 PM [facility] IGE SERUM Specimen Type: SERUM No comment entered. Ordering Provider: SIDDHARTHA ESPINAL Report Released Date/Time: Jul 15, 2024 03:37 PM Reporting Lab: [facility] [id number] [place] [address] Performing Lab: [facility] [id number] [place] [address] IGE <21.0 [IU]/mL <99.9 Social History: Smoking [...] 11:30 AM VA-TOBACCO USE EVERY DAY CIGARET [facility] Tobacco Use History This section includes a history of the smoking, or tobacco-related health factors, that were collected on or before the date of the Encounter. The data comes from the [place] facility where the Encounter took place. Date/Time Smoking Status/Tobacco Use Comment F acility Jun 06, 2024 11:30 AM VA-TOBACCO USE ADVICE [facility] Jun 06, 2024 11:30 AM VA-TOBACCO USE SITE HEAD NO [facility] Jun 06, 2024 11:30 AM VA-TOBACCO USE EVERY DAY CIGARET MANNY [facility] Jun 06, 2024 11:30 AM VA-TOBACCO USE EVERY DAY ENDS [facility] Jun 06, 2024 11:30 AM VA-TOBACCO USE EVERY DAY OTHER T YPE [facility] Jun 06, 2024 11:30 AM VA-TOBACCO USE MED [facility] Jun 19, 2023 10:00 AM TOBACCO [...] this document. The data comes from all [facility]. Date Advance Directives Provider Source October 22, 2023 ADVANCE DIRECTIVE DISCUSSION SABINA NAIR [facility] Radiology Reports: +/- 30 [...] CT TEMPORAL NICKIE NE W/O CONTRAST : ILG,MARION ISAI [id number] -1995 M Exm Date: JUL 25, 2024@14:35 Req Phys: KYLIESIDDHARTHA Lawler Mila Loc: [facility] CLIENT REPRESENTATIVE 1 (Req'g Loc) Img Loc: [facility] CT Service: Unknown [place] [address] (Case [id number] COMPLETE)[facility] (CT Detailed) CPT:11703 Reason for Study: conductive hearing loss Clinical History: [address] [place], [place] [address] Report Status: Verified Date Reported: JUL 28, 2024 Date Verified: JUL 28, 2024 Specimen Processor E-Sig:/ES/KULDIP MCELROY Report: CT OF [place] [...] Code: Primary Interpreting Staff: KULDIP MCELROY, RADIOLOGIST (Specimen Processor) /KULDIP WHITAKER CB Jul 25, 2024 02:[address] TEMPORAL BONE W /O CONTRAST: MARION ZHENG [id number] -1995 M Exm Date: JUL 25, 2024@14:34 Req Phys: SIDDHARTHA ESPINAL Pat Loc: [facility] CLIENT REPRESENTATIVE 1 (Req'g Loc) Img Loc: [facility] CT Service: Unknown [place] [address] (Case [id number] COMPLETE)CT TEMPORAL BONE W/O CONTRAST (CT Detailed) CPT:30678 Reason for Study: chronic congestion, right nasal obstruction Clinical History: Report Status: Verified Date Reported: JUL 28, 2024 Date Verified: JUL 28, 2024 Specimen Processor E-Sig:/ES/KULDIP MCELROY Report: CT TEMPORAL BONE , [...] Code: Primary Interpreting Staff: KULDIP MCELROY, RADIOLOGIST (Specimen Processor) /KULDIP WHITAKER [facility] Pathology Reports: +/- 30 [...] comes from all [place] treatment facilities. Date/Time Pathology Report Provider Source [...] - - PATHOLOGY REPORT Accession No. [id number] - - - - - - - [...] - - PATHOLOGY REPORT Accession No. [id number] - - - - - - - - - - - - - - - - - - - - - - - - - - - - - - - - - - - - - - - - Diagnosis Flow Cytometry RLLYMP Reflex report performed by [facility], [facility] Pathology and Laboratory Medicine [place], [facility] [place] [address], specimen #[id number], electronically signed by Fadia Pizarro M.D. FLOW [...] RPMI and sent for flow cytometry at [facility]. The remainder of the specimen is submitted in 1 cassette. PIERRE gonzalez/ YVROSE KEBEDE PATHOLOGIST Signed Sep 08, 2024@10:46 Performing Laboratory: Surgical Pathology Report Performed By: [facility] [CLIA# [id number]] [address] [place] [address] $FTR - - - - - - - - - - - - - - - - - - - - - - - - - - - - - - - - - - - - - - - - (End of report) YVROSE KEBEDE [facility] Date Sep 08, 2024 - - - - - - - - - - - - - - - - - - - - - - - - - - - - - - - - - - - - - - - - MARION ZHENG STANDARD FORM 515 ID:[id number] SEX:M :1995 AGE: 29 LOC:[facility] PCP: DO chirag Lara PATHOLOGIST Signed: 09/08/2024 10:46 YVROSE KEBEDE [facility] Jul 23, 2024 02:14 PM LR SURGICAL [...] OF VAS DEFERENS, COMPLETELY TRANSECTED LUMEN. CPT: 95811 x 2 GROSS DESCRIPTION A. Specimen is [...] Performing Laboratory: Surgical Pathology Report Performed By: [facility] [CLIA# [id number]] [address] [place] [address] $FTR - - - - - - [...] - - MARION ZHENG STANDARD FORM 515 ID:[id number] SEX:M :1995 AGE: 28 LOC:[facility] PCP: DO chirag LaraEEVA RAJU PATHOLOGIST Signed: 07/23/2024 14:14 PAULA HAND [facility] Encounter Notes: All associated encounter notes This section contains the clinical notes associated to the Encounter. Date/Time Encounter Note(s) Provider Source Aug 13, 2024 02:36 PM MENTAL HEALTH NOTE : LOCAL TITLE: BEHAVIORAL MEDICINE PROGRESS NOTE STANDARD TITLE: MENTAL HEALTH NOTE DATE OF NOTE: AUG 13, 2024@14:36 ENTRY DATE: AUG 13, 2024@14:36:21 AUTHOR: NAA LOPEZ COSIGNER: URGENCY: STATUS: COMPLETED BEHAVIORAL SLEEP MEDICINE DATE OF APPOINTMENT: Aug 13, 2024 LENGTH OF APPOINTMENT: 60 minutes MODALITY: Telemental Health PROVIDER: Dr. Naa Lopez (Clinical Health Psychologist) DIAGNOSES, per chart: Insomnia (SCT [id number]) - Primary insomnia (ICD-10-CM F51.01) (Primary) Chronic post-traumatic stress disorder (SCT [id number]) - Post-traumatic stress disorder, chronic (ICD-10-CM F43.12) Depression (SCT 59467339) - Major depressive disorder, single episode, unspecified (ICD-10-CM F32.9) Personality disorder (SCT 80478957) - Personality disorder, unspecified Nicotine use grief TYPE OF CARE PROVIDED: Behavioral Sleep Medicine [facility] appointment. goal: CBT-I SESSION FORMAT Video Telehealth Session SESSION LOCATION Other location-Sleep clinic This session was conducted through telehealth. The [...] care. Please see previous notes of this film writer for further information. Assessment: Insomnia severity index: pt to complete via [facility] touch Session content: Rough few weeks, recovered from surgery other social stressors, declined to discuss in detail difficulty w/ tracking sleep, endorsed memory issues usually on his phone in bed, admits will 'doom scroll', on facebook, could do it for a few hours each night been having hard time, returned from deplyment 08/01, lots of memories this time of year , she was 7 months, 12/01/2022 son is Shoaib, does not call him dad, almost 4 yrs old suicide ideation 9 years ago, had strong ideation and plan again 2 months after in 2022, SI and plan to kill self with gun ideation passed by the morning; denied occurrence since that time (see notes of MH provider ADDIS HARDY for details) endorses being 'ok' w/ dying and not having a strong will to live (e.g., if he went to sleep and never woke up this would be acceptable to him) but denied active SI or plan currently, denied having a gun in the home cant be 'alone' with his thoughts, constantly thinking about regrets, wifes (Cindy) Patient agreed with this film writer's assessment That his avoidance attempts and inability to be alone with his thoughts and emotions likely serve a protective function and that they help shield him from his grief and sadness but simultaneously are large contributors to his sleep problems. He repeatedly stressed that he cannot be 'kendy'e with his thoughts and is aware that he has coping mechanisms that are probably hurting him but he also expressed that he has tried lots of other things that did not work. This film writer compassionately listened to his concerns and explained that we could try to modify the treatment protocol but if he continued to engage in activities while awake in bed it will likely limit the effectiveness of the treatment. He is okay with this. As patient spoke at length about his grief and his 's , and was emotionally distressed during this conversation, we deferred to review the remainder of his sleep logs today. RISK ASSESSMENT: No suicidal or homicidal ideation intent or plan endorsed or evidenced throughout the visit. [place] was not judged to be in need of acute psychological care; low risk. [place] aware of [facility] and emergency resources. [place] is actively connected with mental health treatment and has multiple protective factors including being a caregiver for his son with whom he lives and living with friends with whom he shares childrearing duties. MENTAL STATUS/BEHAVIORAL OBSERVATIONS: Arrival: on time, visible at home. Sounds of children playing in the back room though they were in a different room and he confirmed he had privacy for the appointment Appearance/Attitude: Casual dress, alert, polite, and engaged; tearful when discussing 's Motor behavior: WNL Speech: WNL Mood/Affect: Mood calm with congruent affect though sad/tearful at later time when discussing losses Thought content: Normal (Logical) Insight/Judgment: fair Impulse control (current): Intact Orientation: Oriented to person, place, and time Auditory/Visual Hallucinations: Not evident MH CLINICAL REMINDERS: None due Plan: Patient agreeable to continue with CBT-I. As there was not time today to complete review of his sleep logs he agreed to send them to this film writer via [employer] for continued review and discussion at his next appointment will read chapters 1-2 in the treatment manual and track sleep for before next appointment RTC: 60 min [facility] appt for 08/22 at 3 PM Recommendations and plan outlined above were created in collaboration with the in a shared decision-making process considering the 's cultural background, values, goals, and treatment preferences. This note was dictated using esolidar speech to text software. Despite proofreading, turnaround engineer errors may be present. Video to Home Appointment: Telehealth Disclosure: Visit [...] emergencies, provider may initiate the call to laborer laboratory by calling [facility] [phone] [address] Veterans/ Crisis Line - Dial 988, press #1 [employer] Help Desk ([employer]): [phone] or [phone] I am the Staff Provider. /deanna/ NAA LOPEZ CLINICAL PSYCHOLOGIST Signed: 08/13/2024 16:55 NAA LOPEZ [facility]
--- OUTSIDE RECORDS SUMMARY | 2024-08-15 11:00 | XMS_ITS ---
Author Name [facility] [place] [facility] [place] [facility] [place] Address [address] [place] [address] Care Team Providers Care Lining Stamper Name Role Phone ROSARIO ESCALERA Primary Care [...] Type Encounter Description Reason Provider Source Aug 15, 2024 03:00 PM MIX HOUSE TENDER ORDER PROCESSING SPECIALIST INDIVIDU MIX HOUSE TENDER SERVICE - INDIVIDUAL ICD-10-CM Z71.81 Spiritual or protestant counseling BLADIMIR VENCES Encounter Template Text not used by [place] Assessments - Encounter Diagnoses This section includes the primary and secondary diagnoses documented for the Encounter. Date/Time Primary/Secondary Diagnosis Diagnosis Name Provider Source Aug 15, 2024 04:08 PM PRIMARY Spiritual or protestant counseling BLADIMIR VENCES [facility] Plan of Treatment: Future Appointments (+ 6 months) and Future Tests (+/- 45 days) The Plan of Treatment section includes future care activities for the patient from all [place] treatmentfacilities. This section includes future appointments and future orders which are active, pending or scheduled. Future Appointments This section includes appointments that were scheduled to occur 6 months from the date of the Encounter, up to a maximum of 20 appointments. The data comes from all [facility]. Appointment Date/Time Appointment Type Appointme nt Facility Name Aug 20, 2024 02:00 PM AMBULATORY - SURGERY [facility] Aug 22, 2024 03:00 PM AMBULATORY - PSYCHIATRY [facility] Aug 26, 2024 02:30 PM AMBULATORY - NONE [facility] Aug 26, 2024 03:00 PM AMBULATORY - NONE [facility] Aug 27, 2024 02:45 PM AMBULATORY - NONE [facility] Aug 27, 2024 03:00 PM AMBULATORY - PSYCHIATRY [facility] Aug 28, 2024 09:30 AM AMBULATORY - PSYCHIATRY [facility] Aug 29, 2024 01:30 PM AMBULATORY - PSYCHIATRY [facility] Sep 03, 2024 01:00 PM AMBULATORY - PSYCHIATRY [facility] Sep 04, 2024 01:00 PM AMBULATORY - NEUROLOGY [facility] Sep 05, 2024 10:00 AM AMBULATORY - NONE [facility] Sep 25, 2024 01:00 PM AMBULATORY - SURGERY [facility] Oct 03, 2024 01:00 PM AMBULATORY - REHAB MEDICIN E [facility] October 21, 2024 03:00 PM AMBULATORY - PSYCHIATRY [facility] November 03, 2024 02:30 PM AMBULATORY - PSYCHIATRY [facility] November 04, 2024 02:30 PM AMBULATORY - SURGERY [facility] November 11, 2024 09:00 AM AMBULATORY - NONE [facility] November 13, 2024 02:00 PM AMBULATORY - NONE [facility] Nov 17, 2024 11:00 AM AMBULATORY - PSYCHIATRY [facility] Dec 01, 2024 08:30 AM AMBULATORY - PSYCHIATRY [facility] Lab Results: +/- 30 days of the encounter This section includes the Chemistry and Hematology Lab Results on record with [place] for the patient. Radiology Reports and Pathology Reports are provided separately, in subsequent sections. Lab Results This section contains the Chemistry/Hematology Results that were resulted 30 days before or 30 daysafter the date of the Encounter. Date/Time Source Result Type Result - Unit Interpretation Reference Range Specimen Type Comment Aug 27, 2024 02:35 PM [facility] VITAMIN D (TOTAL) SERUM Specimen Type: SERUM Comment: VITD One expert panel recommended a target range of 30-40 ng/mL. Ordering Provider: ROSARIO ESCALERA Report Released Date/Time: Jun 25, 2024 10:05 AM Reporting Lab: [address] [id number] Performing Lab: [address] [address] VITAMIN D (TOTAL) 10 ng/mL L 30-60 Aug 27, 2024 02:35 PM [facility] LIPID PROFILE PLASMA Specimen Type: [...] Jun 25, 2024 03:09 PM Reporting Lab: [address] [id number] Performing Lab: [address] [address] CHOLESTEROL 276 mg/dL H 0-199 LDL CHOLESTEROL 192 mg/dL H 0-99 HDL CHOLESTEROL 38 mg/dL L >40 TRIGLYCERIDE 469 mg/dL H 0-149 Aug 27, 2024 02:35 PM [facility] HEPATIC FUNCTION PANEL PLASMA Specimen Type: [...] Jun 25, 2024 10:05 AM Reporting Lab: [facility] [id number] [place] [phone] Performing Lab: [facility] [id number] [place] [phone] ALBUMIN 5.0 g/dL H 3.5-4.8 ALKALINE PHOSPHATASE 72 U/L 40-150 ALT/SGPT 27 U/L 0-55 AST/SGOT 25 U/L 10-40 BILIRUBIN,DIRECT 0.1 mg/dL 0.0-0.5 PROTEIN, TOTAL 8.1 g/dL 6.4-8.3 BILIRUBIN, TOTAL 0.4 mg/dL 0.2-1.2 Social History: Smoking Status (Most current) and [...] place. Date/Time Current Smoking Status Comment Lucinda ity Jun 06, 2024 11:30 AM VA-TOBACCO USE EVERY DAY CIGARET MANNY [facility] Tobacco Use History This section includes a history of the smoking, or tobacco-related health factors, that were collected on or before the date of the Encounter. The data comes from the [place] facility where the Encounter took place. Date/Time Smoking Status/Tobacco Use Comment F acility Jun 06, 2024 11:30 AM VA-TOBACCO USE ADVICE [facility] Jun 06, 2024 11:30 AM VA-TOBACCO USE ORDER PROCESSING SPECIALIST NO [facility] Jun 06, 2024 11:30 AM VA-TOBACCO USE EVERY DAY CIGARET MANNY [facility] Jun 06, 2024 11:30 AM VA-TOBACCO USE EVERY DAY ENDS [facility] Jun 06, 2024 11:30 AM VA-TOBACCO USE EVERY DAY OTHER T YPE [facility] Jun 06, 2024 11:30 AM VA-TOBACCO USE MED NO [facility] Jun 19, 2023 10:00 AM TOBACCO FORMER USER MORE 12 [facility] Advance Directives: All historical and [...] the Encounter. The data comes from all [place] treatment facilities. Date/Time Radiology Report Provider Source Jul 25, 2024 02:35 PM P/D CT TEMPORAL NICKIE NE W/O CONTRAST : MARION ZHENG [id number] -1995 M Exm Date: JUL 25, 2024@14:35 Req Phys: SIDDHARTHA ESPINAL Loc: [facility] ENT MAINTENANCE PLUMBER 1 (Req'g Loc) Img Loc: [address] Service: [place] [address] (Case [id number] COMPLETE)[facility] CT (CT Detailed) CPT:72373 Reason for Study: conductive hearing loss Clinical History: [address], [place] [address] Report Status: Verified Date Reported: JUL 28, 2024 Date Verified: JUL 28, 2024 Forestry Hunter E-Sig:/ES/KULDIP MCELROY Report: CT OF [facility] [facility] [...] Code: Primary Interpreting Staff: KULDIP MCELROY, RADIOLOGIST (Forestry Hunter) /KULDIP WHITAKER [facility] Jul 25, 2024 02:[address] TEMPORAL BONE W /O CONTRAST: MARION ZHENG [id number] -1995 M Exm Date: JUL 25, 2024@14:34 Req Phys: SIDDHARTHA ESPINAL Loc: [facility] ENT MAINTENANCE PLUMBER 1 (Req'g Loc) Img Loc: [facility] Service: [place] [address] (Case [id number] COMPLETE)CT TEMPORAL BONE W/O CONTRAST (CT Detailed) CPT:36817 Reason for Study: chronic congestion, right nasal obstruction Clinical History: Report Status: Verified Date Reported: JUL 28, 2024 Date Verified: JUL 28, 2024 Forestry Hunter E-Sig:/ES/KULDIP MCELROY Report: CT TEMPORAL BONE , [...] Code: Primary Interpreting Staff: KULDIP MCELROY, RADIOLOGIST (Forestry Hunter) /KULDIP WHITAKER [facility] Pathology Reports: +/- 30 [...] the Encounter. The data comes from all [place] treatment facilities. Date/Time Pathology Report Provider Source [...] Flow Cytometry RLLYMP Reflex report performed by [facility], Alok Cook [facility] [place], [address] [place] [address], specimen #[id number], electronically signed by Fadia Pizarro M.D. FLOW [...] RPMI and sent for flow cytometry at [facility]. The remainder of the specimen is submitted in 1 cassette. PIERRE gonzalez/ YVROSE KEBEDE PATHOLOGIST Signed Sep 08, 2024@10:46 Performing Laboratory: Surgical Pathology Report Performed By: [facility] [CLIA# [id number]] [address] [place] [address] $FTR - - - - - - - - - - - - - - - - - - - - - - - - - - - - - - - - - - - - - - - - (End of report) YVROSE KEBEDE [facility] Date Sep 08, 2024 - - - - - - - - - - - - - - - - - - - - - - - - - - - - - - - - - - - - - - - - MARION ZHENG STANDARD FORM 515 ID:[id number] SEX:M :1995 AGE: 29 LOC:[facility] PCP: Rosario Escalera DO /deanna/ YVROSE KEBEDE PATHOLOGIST Signed: 09/08/2024 10:46 YVROSE KEBEDE [facility] Jul 23, 2024 02:14 PM LR [...] OF VAS DEFERENS, COMPLETELY TRANSECTED LUMEN. CPT: 11243 x 2 GROSS DESCRIPTION A. Specimen is [...] length by 0.3 cm in diameter cylindrical, fery-pink soft tissue fragment. The tips of the specimen are inked blue for orientation purposes. The specimen is entirely submitted in one cassette for sectioning at embedding. PIERRE /deanna/ PAULA HAND PATHOLOGIST Signed Jul 23, 2024@14:14 Performing Laboratory: Surgical Pathology Report Performed By: [facility] [CLIA# [id number]] [address] [place] [address] $FTR - - - - - - [...] - - MARION ZHENG STANDARD FORM 515 ID:[id number] SEX:M :1995 AGE: 28 LOC:[facility] PCP: DO chirag Lara PATHOLOGIST Signed: 07/23/2024 14:14 PAULA HAND [facility] Encounter Notes: All associated encounter notes This section contains the clinical notes associated to the Encounter. Date/Time Encounter Note(s) Provider Source Aug 15, 2024 03:00 PM PASTORAL CARE NOTE : LOCAL TITLE: MIX HOUSE TENDER NOTE (T) STANDARD TITLE: PASTORAL CARE NOTE DATE OF NOTE: AUG 15, 2024@15:00 ENTRY DATE: AUG 15, 2024@15:59:49 AUTHOR: BLADIMIR VENCES COSIGNER: URGENCY: STATUS: COMPLETED [place] logged into [facility] for individual grief support appointment and was open/receptive. [place] focused on the low period these past two weeks after feeling confronted with a facebook picture memory of and spouse. 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 noted that it has been 1.5 years without her. continues to focus on his need to avoid grief and put it back in the box . describes the box as made of cardboard, mid-sized, but all the grief can't be contained and often seeps out of the box. was unreceptive to exploring use/engagement of any grief coping tools not yet tried in the past 1.5 years. noted bringing home his new puppy approx a week prior to his birthday. named his hopes of how the would support him. [place] was receptive to exploring how a dog can be a powerful grief support. Interventions: presence, active listening, reflective questions, grief processing, facilitated story sharing, encouraging open thinking of unused coping tools, encouragement, distress tolerance, validation, support. Plan: Haily requested appointment by [facility] for 09/03/24 @ 3pm. [place] expressed gratitude & stated that he feels comfortable talking with you even when it's too hard. /deanna/ CHAPLAIN BLADIMIR CARLIN Signed: 08/15/2024 16:08 BLADIMIR VENCES [facility]
--- OUTSIDE RECORDS SUMMARY | 2024-08-20 10:00 | XMS_ITS | Encounter Summary ---
Author Name [facility] [place] Organization Department of [facility] [place] ([place] Address [address] [place] [address] Care Team Providers Care Tannery Worker Name Role Phone ROSARIO ESCALERA Primary Care [...] Type Encounter Description Reason Provider Source Aug 20, 2024 02:00 PM OFFICE O/P EST MOD 30 MIN OTOLARYNGOLOGY/EN T ICD-10-CM J35.2 Hypertrophy of adenoids BHARATHI JOHNS [facility] Encounter Template Text not used by [place] Assessments - Encounter Diagnoses This section includes the primary and secondary diagnoses documented for the Encounter. Date/Time Primary/Secondary Diagnosis Diagnosis Name Provider Source Aug 21, 2024 12:04 PM PRIMARY Hypertrophy of adenoids BHARATHI JOHNS [facility] Aug 21, 2024 12:04 PM SECONDARY Hypertrophy of nasal turbinates BHARATHI JOHNS [facility] Plan of Treatment: Future Appointments (+ 6 months) and Future Tests (+/- 45 days) The Plan of Treatment section includes future care activities for the patient from [facility] [place] [facility] This section includes future appointments and future orders which are active, pending or scheduled. Future Appointments This section includes appointments that were scheduled to occur 6 months from the date of the Encounter, up to a maximum of 20 appointments. The data comes from all [place] treatment facilities. Appointment Date/Time Appointment Type Appointme nt Facility Name Aug 22, 2024 03:00 PM AMBULATORY - PSYCHIATRY CL [facility] Aug 26, 2024 02:30 PM AMBULATORY - NONE [place] [facility] Aug 26, 2024 03:00 PM AMBULATORY - NONE [place] [facility] Aug 27, 2024 02:45 PM AMBULATORY - NONE [facility] Aug 27, 2024 03:00 PM AMBULATORY - PSYCHIATRY CL [facility] Aug 28, 2024 09:30 AM AMBULATORY - PSYCHIATRY CL [facility] Aug 29, 2024 01:30 PM AMBULATORY - PSYCHIATRY CL [facility] Sep 03, 2024 01:00 PM AMBULATORY - PSYCHIATRY CL [facility] Sep 04, 2024 01:00 PM AMBULATORY - NEUROLOGY [facility] Sep 05, 2024 10:00 AM AMBULATORY - NONE [place] [facility] Sep 25, 2024 01:00 PM AMBULATORY - SURGERY [facility] Oct 03, 2024 01:00 PM AMBULATORY - REHAB [facility] October 21, 2024 03:00 PM AMBULATORY - PSYCHIATRY CL [facility] November 03, 2024 02:30 PM AMBULATORY - PSYCHIATRY CL [facility] November 04, 2024 02:30 PM AMBULATORY - SURGERY [facility] November 11, 2024 09:00 AM AMBULATORY - NONE [place] [facility] November 13, 2024 02:00 PM AMBULATORY - NONE [place] [facility] Nov 17, 2024 11:00 AM AMBULATORY - PSYCHIATRY CL [facility] Dec 01, 2024 08:30 AM AMBULATORY - PSYCHIATRY CL [facility] Dec 01, 2024 01:00 PM [facility] Lab Results: +/- 30 days of [...] Comment Aug 27, 2024 02:35 PM [facility] VITAMIN D (TOTAL) SERUM Specimen Type: SERUM Comment: VITD One expert panel recommended a target range of 30-40 ng/mL. Ordering Provider: ROSARIO ESCALERA Report Released Date/Time: Jun 25, 2024 10:05 AM Reporting Lab: [address] [address] Performing Lab: [address] [address] VITAMIN D (TOTAL) 10 ng/mL L 30-60 Aug 27, 2024 02:35 PM [facility] LIPID PROFILE PLASMA Specimen Type: PLASMA [...] Jun 25, 2024 03:09 PM Reporting Lab: [address] [address] Performing Lab: [address] [address] CHOLESTEROL 276 mg/dL H 0-199 LDL CHOLESTEROL 192 mg/dL H 0-99 HDL CHOLESTEROL 38 mg/dL L >40 TRIGLYCERIDE 469 mg/dL H 0-149 Aug 27, 2024 02:35 PM [facility] HEPATIC FUNCTION PANEL PLASMA Specimen Type: [...] 25, 2024 10:05 AM Reporting Lab: [facility] [id number] [place] [id number] Performing Lab: [address] [address] ALBUMIN 5.0 g/dL H 3.5-4.8 ALKALINE PHOSPHATASE [...] 11:30 AM VA-TOBACCO USE EVERY DAY CIGARET [facility] Tobacco Use History This section includes a history of the smoking, or tobacco-related health factors, that were collected on or before the date of the Encounter. The data comes from the [place] facility where the Encounter took place. Date/Time Smoking Status/Tobacco Use Comment F acility Jun 06, 2024 11:30 AM VA-TOBACCO USE ADVICE [facility] Jun 06, 2024 11:30 AM VA-TOBACCO USE ENGRAVER HAND SOFT METALS NO [facility] Jun 06, 2024 11:30 AM VA-TOBACCO USE EVERY DAY CIGARET MANNY [facility] Jun 06, 2024 11:30 AM VA-TOBACCO USE EVERY DAY ENDS [facility] Jun 06, 2024 11:30 AM VA-TOBACCO USE EVERY DAY OTHER T YPE [facility] Jun 06, 2024 11:30 AM VA-TOBACCO USE MED NO [facility] Jun 19, 2023 10:00 AM TOBACCO FORMER USER MORE 12 [facility] Advance Directives: All historical and current [...] 22, 2023 ADVANCE DIRECTIVE DISCUSSION SABINA NAIR [place] Radiology Reports: +/- 30 days of the [...] the Encounter. The data comes from all [place] treatment facilities. Date/Time Radiology Report Provider Source Jul 25, 2024 02:35 PM P/D CT TEMPORAL NICKIE NE W/O CONTRAST : MARION ZHENG [id number] -1995 M Exm Date: JUL 25, 2024@14:35 Req Phys: SIDDHARTHA ESPINAL Pat Loc: [facility] STU[facility] 1 (Req'g Loc) Img Loc: [place] CT Service: [place] [address] (Case [id number] COMPLETE)[facility] CT (CT Detailed) CPT:69717 Reason for Study: conductive hearing loss Clinical History: [address], [place] [address] Report Status: Verified Date Reported: JUL 28, 2024 Date Verified: JUL 28, 2024 Multiskill Operator E-Sig:/ES/KULDIP MCELROY Report: CT OF [facility] [...] Code: Primary Interpreting Staff: KULDIP MCELROY, RADIOLOGIST (Multiskill Operator) /KULDIP WHITAKER [facility] Jul 25, 2024 02:[address] TEMPORAL BONE W /O CONTRAST: MARION ZHENG [id number] -1995 M Exm Date: JUL 25, 2024@14:34 Req Phys: SIDDHARTHA ESPINAL Loc: [facility] 1 (Req'g Loc) Img Loc: [facility] CT Service: [place] [address] (Case [id number] COMPLETE)CT TEMPORAL BONE W/O CONTRAST (CT Detailed) CPT:15778 Reason for Study: chronic congestion, right nasal obstruction Clinical History: Report Status: Verified Date Reported: JUL 28, 2024 Date Verified: JUL 28, 2024 Multiskill Operator E-Sig:/ES/KULDIP MCELROY Report: CT TEMPORAL BONE [...] Code: Primary Interpreting Staff: KULDIP MCELROY, RADIOLOGIST (Multiskill Operator) /KULDIP WHITAKER [facility] Pathology Reports: +/- 30 days of [...] the Encounter. The data comes from all [place] treatment facilities. Date/Time Pathology Report Provider Source [...] Flow Cytometry RLLYMP Reflex report performed by [facility], Alok Cook [facility] Pathology and Laboratory Medicine [place], [address] [place] [address], specimen #[id number], electronically signed by Fdaia Pizarro M.D. FLOW CYTOMETRY (Final result) INTERPRETATION [...] RPMI and sent for flow cytometry at [facility]. The remainder of the specimen is submitted in 1 cassette. PIERRE /deanna/ YVROSE KEBEDE PATHOLOGIST Signed Sep 08, 2024@10:46 Performing Laboratory: Surgical Pathology Report Performed By: [facility] [CLIA# [id number]] [address] [place] [address] $FTR - - - - - - - - - - - - - - - - - - - - - - - - - - - - - - - - - - - - - - - - (End of report) YVROSE KEBEDE [facility] Date Sep 08, 2024 - - - - - - - - - - - - - - - - - - - - - - - - - - - - - - - - - - - - - - - - MARION ZHENG STANDARD FORM 515 ID:[id number] SEX:M :1995 AGE: 29 LOC:[facility] PCP: Rosario Escalera DO /deanna/ YVROSE KEBEDE PATHOLOGIST Signed: 09/08/2024 10:46 YVROSE KEBEDE [facility] Jul 23, 2024 02:14 PM LR [...] OF VAS DEFERENS, COMPLETELY TRANSECTED LUMEN. CPT: 77299 x 2 GROSS DESCRIPTION A. Specimen is [...] Laboratory: Surgical Pathology Report Performed By: [facility] [CLIA# [id number]] [address] [place] [address] $FTR - - - - - - [...] - - MARION ZHENG STANDARD FORM 515 ID:[id number] SEX:M :1995 AGE: 28 LOC:[facility] PCP: Rosario Escalera DO /alexandro HAND PATHOLOGIST Signed: 07/23/2024 14:14 PAULA HAND [facility] Encounter Notes: All associated encounter notes This section contains the clinical notes associated to the Encounter. Date/Time Encounter Note(s) Provider Source Aug 20, 2024 01:49 PM OTOLARYNGOLOGY ATT ENDING NOTE: LOCAL TITLE: ENT ATTENDING STAFF NOTE STANDARD TITLE: OTOLARYNGOLOGY ATTENDING NOTE DATE OF NOTE: AUG 20, 2024@13:49 ENTRY DATE: AUG 20, 2024@13:49:16 AUTHOR: BHARATHI JOHNS COSIGNER: URGENCY: STATUS: COMPLETED CC: preop visit, follow up nasal congestion Interval History: The patient is scheduled for adenoidectomy, bilateral inferior turbinate reduction on 09/05 and presents for preop visit. No changes to his symptoms since he was last seen. See below for HPI. He reports that he previously deferred myringotomies in the OR because he didn't want to have too much done . However he feels like he is willing to have his serous effusons drained at the same time +/- placement of PE tubes if this will help his hearing. HPI: 28-year-old male returns to the ENT clinic for follow-up for nasal congestion and right nasal obstruction. Patient had a tonsillectomy in [address] Garcia. He states he has had a longstanding history of nasal congestion however he felt improved for short amount of time after the tonsillectomy and has since returned. He has tried multiple admy-lbl-vfwjpqd oral antihistamines, nasal sprays and decongestants with [...] erythemic nasal cavities and hypertrophic turbinates Imaging: personally reviewed; on my review, septum is not obstructive. Adenoid hypertrophy and inferior turbinate hypertrophy. no significant sinus disease. high riding jugular bulb on the left. middle ear fluid bilaterally. CT sinus 07/25/24 Impression: Mild deviation of the nasal septum. Soft tissue in the roof of the nasal cavity is likely hypertrophic adenoids. Minimal fluid in bilateral middle ear and mastoid air cells, right side more than left. Prominent lymph nodes in the neck. CT TEMPORAL BONE , 07/25/2024 . Impression: Fluid in bilateral middle ear cavities and mastoid air cells, right side more than left. Fluid surrounding the ossicles in the middle ear. Differentials include otitis media, eustachian tube dysfunction. No bony erosion or ossicular chain disruption . High positioning of the left jugular bulb. Assessment: 28-year-old male returns to the ENT clinic for preop visit prior to adenoidectomy, ITR, and bilateral myringotomies +/- PE tube placement. r/b/a discussed at length, including bleeding, infection, pain, need for revision surgery, scarring, TM perforation, recurrent effusion, early tube extrusion and consent was updated to reflect the addition of bilateral myringotomies +/- PE tube placement. Patient has a history of a tonsillectomy in [address] Garcia for tonsillar asymmetry. 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 He reports that after his tonsillectomy he developed an infection. He also needs to keep his neck as neutral as possible although he does not have difficulty with neck extension. He reports when he looks down and to the left he develops right sided arm numbness. Additionally, he has a reported allergy to oxycodone but tolerates vicodin. Will plan to send patient home with vicodin vs tramadol. Plan: -Will tag production control scheduler to update case and add bilateral myringotomy with or without PE tube placement (in addition to adenoidectomy and ITR) -consent was updated update -he is scheduled for preop anesthesia visit /deanna/ BHARATHI JOHNS [employer] Signed: 08/21/2024 12:04 Receipt Acknowledged By: 08/21/2024 13:06 /deanna/ DRU BLAIR REGISTERED NURSE BHARATHI JOHNS [facility]
--- OUTSIDE RECORDS SUMMARY | 2024-08-22 11:00 | XMS_ITS | Encounter Summary ---
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 Date/Time Encounter Type Encounter Description Reason Provider Source Aug 22, 2024 03:00 PM PSYTX W PT 60 MINUTES INTERVNTION BIOMED CARE IND ICD-10-CM F51.01 Primary insomnia NAA LOPEZ Encounter Template Text not used by [place] Assessments - Encounter Diagnoses This section includes the primary and secondary diagnoses documented for the Encounter. Date/Time Primary/Secondary Diagnosis Diagnosis Name Provider Source Aug 22, 2024 04:13 PM PRIMARY Primary insomnia NAA LOPEZ [facility] Aug 22, 2024 04:13 PM SECONDARY Major depressive disorder, single episode, unspecified NAA LOPEZ [facility] Aug 22, 2024 04:13 PM SECONDARY Other migraine, not intractable, without status migrainosus NAA LOPEZ [facility] Aug 22, 2024 04:13 PM SECONDARY Personality disorder, unspecified NAA LOPEZ [facility] Aug 22, 2024 04:13 PM SECONDARY Post-traumatic stress disorder, chronic NAA LOPEZ Sonya [facility] Aug 22, 2024 04:13 PM SECONDARY Tobacco use ROSS LOPEZISTIN Sonya [facility] Plan of Treatment: Future Appointments (+ 6 months) and Future Tests (+/- 45 days) The Plan of Treatment section includes future care activities for the patient from all [place] [facility] This section includes future appointments and future orders which are active, pending or scheduled. Future Appointments This section includes appointments that were scheduled to occur 6 months from the date of the Encounter, up to a maximum of 20 appointments. The data comes from all [place] treatment facilities. Appointment Date/Time Appointment Type Appointme nt Facility Name Aug 26, 2024 02:30 PM [facility] Aug 26, 2024 03:00 PM [facility] Aug 27, 2024 02:45 PM AMBULATORY - NONE [facility] Aug 27, 2024 03:00 PM AMBULATORY - PSYCHIATRY [facility] Aug 28, 2024 09:30 AM AMBULATORY - PSYCHIATRY [facility] Aug 29, 2024 01:30 PM AMBULATORY - PSYCHIATRY [facility] Sep 03, 2024 01:00 PM AMBULATORY - PS[facility]CHIATRY [facility] Sep 04, 2024 01:00 PM AMBULATORY - NEUROLOGY [facility] Sep 05, 2024 10:00 AM [facility] Sep 25, 2024 01:00 PM AMBULATORY - SURGERY [facility] Oct 03, 2024 01:00 PM AMBULATORY - REHAB MEDICIN E [facility] October 21, 2024 03:00 PM AMBULATORY - PSYCHIATRY [facility] November 03, 2024 02:30 PM AMBULATORY - PS[facility]CHIATRY [facility] November 04, 2024 02:30 PM AMBULATORY - SURGERY [facility] November 11, 2024 09:00 AM [facility] NONE [facility] November 13, 2024 02:00 PM AMBULATORY - NONE [facility] Nov 17, 2024 11:00 AM AMBULATORY - PSYCHIATRY [facility] Dec 01, 2024 08:30 AM AMBULATORY - [facility]CHIATRY [facility] Dec 01, 2024 01:00 PM AM[facility]ULATORY - NONE [facility] Dec 03, 2024 03:00 PM AMBULATORY - NONE [facility] [place] Lab Results: +/- 30 days of the [...] Type Comment Aug 27, 2024 02:35 PM [facility] VITAMIN D (TOTAL) SERUM Specimen Type: SERUM Comment: VITD One expert panel recommended a target range of 30-40 ng/mL. Ordering Provider: ROSARIO ESCALERA Report Released Date/Time: Jun 25, 2024 10:05 AM Reporting Lab: [address] [address] Performing Lab: [address] [address] VITAMIN D (TOTAL) 10 ng/mL L 30-60 Aug 27, 2024 02:35 PM [facility] HEPATIC FUNCTION PANEL PLASMA Specimen [...] Jun 25, 2024 10:05 AM Reporting Lab: [address] [address] Performing Lab: [address] [address] ALBUMIN 5.0 g/dL H 3.5-4.8 ALKALINE PHOSPHATASE 72 U/L 40-150 ALT/SGPT 27 U/L 0-55 AST/SGOT 25 U/L 10-40 BILIRUBIN,DIRECT 0.1 mg/dL 0.0-0.5 PROTEIN, TOTAL 8.1 g/dL 6.4-8.3 BILIRUBIN, TOTAL 0.4 mg/dL 0.2-1.2 Aug 27, 2024 02:35 PM [facility] LIPID PROFILE PLASMA Specimen Type: [...] Jun 25, 2024 03:09 PM Reporting Lab: [address] [address] Performing Lab: [address] [address] CHOLESTEROL 276 mg/dL H 0-199 LDL CHOLESTEROL 192 mg/dL H 0-99 HDL CHOLESTEROL 38 mg/dL L >40 TRIGLYCERIDE 469 mg/dL H 0-149 Social History: Smoking Status (Most current) and Tobacco Use (All prior to encounter date) This section includes the most current, and the historical, smoking and tobacco- related health factors from the [place] facility where the Encounter took place. Current Smoking Status This section includes the most current smoking, or tobacco-related health factor, from the [place] facility where the Encounter took place. Date/Time Current Smoking Status Comment Facil ity Jun 06, 2024 11:30 AM VA-TOBACCO USE EVERY DAY CIGARET MANNY [facility] Tobacco Use History This section includes a history of the smoking, or tobacco-related health factors, that were collected on or before the date of the Encounter. The data comes from the [place] facility where the Encounter took place. 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 NO [facility] Jun 06, 2024 11:30 AM VA-TOBACCO USE EVERY DAY CIGARET MANNY [facility] Jun 06, 2024 11:30 AM VA-TOBACCO USE EVERY DAY ENDS [facility] Jun 06, 2024 11:30 AM VA-TOBACCO USE EVERY DAY OTHER T YPE [facility] Jun 06, 2024 11:30 AM VA-TOBACCO USE MED NO [facility] Jun 19, 2023 10:00 AM TOBACCO FORMER USER MORE 12 LEONEL [facility] Advance Directives: All historical and current Section Date Range: From patient's date of to the date document was created. This section includes ALL of a patient's completed or amended [place] Advance and Rescinded Directives. The entries below indicate that a directive exists for the patient, but an actual copy is not included with this document. The data comes from all [place] facilities. Date Advance Directives Provider Source October 22, 2023 ADVANCE DIRECTIVE DISCUSSION SABINA NAIR [facility] Radiology Reports: +/- 30 days [...] the Encounter. The data comes from all [place] treatment facilities. Date/Time Radiology Report Provider Source Jul 25, 2024 02:35 PM P/D CT TEMPORAL NICKIE NE W/O CONTRAST : MARION ZHENG [id number] -1995 M Exm Date: JUL 25, 2024@14:35 Req Phys: SIDDHARTHA ESPINAL Loc: [facility] SUPERVISOR 1 (Req'g Loc) Img Loc: [facility] CT Service: [place] [address] (Case [id number] COMPLETE)[facility] CT (CT Detailed) CPT:09405 Reason for Study: conductive hearing loss Clinical History: [address], [place] [address] Report Status: Verified Date Reported: JUL 28, 2024 Date Verified: JUL 28, 2024 Head Buyer Tobacco E-Sig:/ES/KULDIP MCELROY Report: CT OF [place] [...] Code: Primary Interpreting Staff: KULDIP MCELROY, RADIOLOGIST (Head Buyer Tobacco) /KULDIP WHITAKER [facility] Jul 25, 2024 02:[address] TEMPORAL BONE W /O CONTRAST: MARION ZHENG [id number] -1995 M Exm Date: JUL 25, 2024@14:34 Req Phys: SIDDHARTHA ESPINAL Loc: [facility]PERVISOR 1 (Req'g Loc) Img Loc: [facility] Service: [place] [address] (Case [id number] COMPLETE)CT TEMPORAL BONE W/O CONTRAST (CT Detailed) CPT:48822 Reason for Study: chronic congestion, right nasal obstruction Clinical History: Report Status: Verified Date Reported: JUL 28, 2024 Date Verified: JUL 28, 2024 Head Buyer Tobacco E-Sig:/ES/KULDIP MCELROY Report: CT TEMPORAL BONE , [...] Code: Primary Interpreting Staff: KULDIP MCELROY, RADIOLOGIST (Head Buyer Tobacco) /KULDIP WHITAKER CB Pathology Reports: +/- 30 [...] the Encounter. The data comes from all [place] treatment facilities. Date/Time Pathology Report Provider Source [...] Flow Cytometry RLLYMP Reflex report performed by [facility], [facility] [place], [address] [place], [place] [id number], specimen #[id number], electronically signed by Fadia Pizarro M.D. FLOW [...] RPMI and sent for flow cytometry at [facility]. The remainder of the specimen is submitted in 1 cassette. PIERRE gonzalez/ YVROSE KEBEDE PATHOLOGIST Signed Sep 08, 2024@10:46 Performing Laboratory: Surgical Pathology Report Performed By: [facility] [CLIA# [id number]] [address] [place] [address] $FTR - - - - - - - - - - - - - - - - - - - - - - - - - - - - - - - - - - - - - - - - (End of report) YVROSE KEBEDE [facility] Date Sep 08, 2024 - - - - - - - - - - - - - - - - - - - - - - - - - - - - - - - - - - - - - - - - MARION ZHENG STANDARD FORM 515 ID:[id number] SEX:M :1995 AGE: 29 LOC:[facility] PCP: Rosario Escalera DO /alexandro KEBEDE PATHOLOGIST Signed: 09/08/2024 10:46 YVROSE KEBEDE [facility] Jul 23, 2024 02:14 PM [...] - PATHOLOGY REPORT Accession No. [id number] - - - - - - - [...] OF VAS DEFERENS, COMPLETELY TRANSECTED LUMEN. CPT: 17080 x 2 GROSS DESCRIPTION A. Specimen is [...] Surgical Pathology Report Performed By: [facility] [CLIA# [id number]] [address] [place] [address] $FTR - - - - - - [...] - - MARION ZHENG STANDARD FORM 515 ID:[id number] SEX:M :1995 AGE: 28 LOC:[facility] PCP: DO chirag Lara PATHOLOGIST Signed: 07/23/2024 14:14 PAULA HAND [facility] Encounter Notes: All associated encounter notes This section contains the clinical notes associated to the Encounter. Date/Time Encounter Note(s) Provider Source Aug 22, 2024 10:51 AM MENTAL HEALTH NOTE : LOCAL TITLE: BEHAVIORAL MEDICINE PROGRESS NOTE STANDARD TITLE: MENTAL HEALTH NOTE DATE OF NOTE: AUG 22, 2024@10:51 ENTRY DATE: AUG 22, 2024@10:51:50 AUTHOR: NAA LOPEZ COSIGNER: URGENCY: STATUS: COMPLETED BEHAVIORAL SLEEP MEDICINE Cognitive Behavioral Therapy for Insomnia: Initial Treatment Phase DATE OF APPOINTMENT: 08/22/2024 LENGTH OF APPOINTMENT: 60 minutes MODALITY: Telemental Health PROVIDER: Dr. Naa Lopez (Clinical Health Psychologist) DIAGNOSES, per chart: Insomnia (SCT [id number]) - Primary insomnia (ICD-10-CM F51.01) (Primary) Chronic post-traumatic stress disorder (SCT 697641663) - Post-traumatic stress disorder, chronic (ICD-10-CM F43.12) Depression (SCT 87341319) - Major depressive disorder, single episode, unspecified (ICD-10-CM F32.9) Personality disorder (SCT 91510621) - Personality disorder, unspecified Nicotine use grief TYPE OF CARE PROVIDED: Behavioral Sleep Medicine [facility] appointment. Treatment session #2 SESSION FORMAT Video Telehealth Session SESSION LOCATION Other location-Sleep clinic This session was conducted through telehealth. The [place] consented to an individual appt via telehealth [...] to future care, services, or benefits. The [place] was present at home for this session, and their address and phone number were reviewed during this session and confirmed as accurate. Telehealth deemed to be a safe and appropriate clinical option for this patient. REFERRAL/BACKGROUND INFORMATION: [place] is a 28-year-old male with PTSD, depressive DO unspecified, nicotine use disorder,personality DO unspecified, and insomnia d/o. Currently connected with mental health care. Please see previous notes of this script writer for further information. Check-in: Reports sleep is slightly improved over the past week and he has been doing better at tracking his sleep Endorse some anxiety over upcoming ENT surgery ASSESSMENT --Sleep Diary: --[place] completed a sleep diary. --Diary variables averages: Recorded averages below cover weeks. Naps: 49 minutes Bedtime: 0:28 Tries to sleep around 1:07 AM, he is using his smart phone in bed and 'doom scrolling' on [employer] Sleep onset latency: 15 minutes Number of awakenings: 0.6 Wake after sleep onset: 9 minutes Wake time: 8:35 ranging from 725 to 9:30 AM Total sleep time: 7.1 hours Time in bed: 8.6 hours Sleep efficiency: 83% He napped for days this past week and had multiple naps in the afternoon most days -- reported no change in use of sleep medications or sleep aids since last visit. --'s level of adherence since the last session was medium. He has finally completed a sleep log for an entire week. However he has not yet read over the treatment manual or completed measures via [employer] touch as requested SESSION CONTENT This session was part of the initial treatment phase of Cognitive Behavioral therapy for insomnia (CBT-I). The following occurred during the session: --Reviewed sleep diary and scoring and addressed any problems completing the sleep diary. --Provided psychoeducation on sleep processes and insomnia to include circadian rhythm, social jet lag, and sleep drive --Established a prescribed bedtime and rise time in collaboration with the as follows: Prescribed bedtime: Midnight Prescribed rise time: 8:30 AM 8:30 AM --Discussed sleep hygiene rules and the following specific recommendations applicable to the [place]: Avoid napping. Limit caffeine use: Patient reports he has quit vaping and is experiencing cold sweats at night. Lots of reinforcement given for quitting and support given for managing his symptoms Exercise regularly. Keep bedroom quiet, dark and cool. Reiterated the importance of good adherence to benefit from treatment to include keeping his sleep log and reading the treatment manual. [place] was apologetic, reports he forgot again to read the manual. In discussing the recommendations overall he expressed hopelessness that these things could help him and reports he has done them before because he used to have a job where he needed to get up at the same time and had a regular schedule. Education and support given in regards to how his comorbidities particularly his severe depression are likely impacting his fatigue and energy. Reiterated how CBT is an effective treatment for insomnia disorder and we are looking to improve not just sleep at night but overall quality of life. Patient reports he is open to making these changes even though he does not have much hope that they will help him. He shared how he feels frustrated overall his health issues and how he cannot function on only 2 hours of sleep the way that he used to when he was younger. We discussed how he wants to have more energy to spend time with his son and this is what motivates him to get better. RISK ASSESSMENT: No suicidal or homicidal ideation intent or plan endorsed or evidenced throughout the visit. was not judged to be in need of acute psychological care; low risk. aware of VCL and emergency resources. is actively connected with mental health treatment [...] privacy for the appointment Appearance/Attitude: Casual dress, tired, polite, and engaged Motor behavior: WNL, yawning at times Speech: WNL Mood/Affect: Mood sad with congruent affect Thought content: Normal (Logical) Insight/Judgment: fair Impulse control (current): Intact Orientation: Oriented to person, place, and time Auditory/Visual Hallucinations: Not evident MH CLINICAL REMINDERS: None due HOMEWORK: [place] is to complete the following homework items between sessions: Complete sleep diary Read CBT insomnia manual up to session 3 Follow recommended bedtimes and rise times RTC: 30 min [facility] appt for 08/29 at 1:30 PM Recommendations and plan outlined above were created in collaboration with the in a shared decision-making process considering the 's cultural background, values, goals, and treatment preferences. This note was dictated using Between speech to text software. Despite proofreading, inventory associate errors may be present. Video to Home [...] emergencies, provider may initiate the call to first mate by calling [facility]911 Center [phone] [address] Veterans/ Crisis Line - Dial 988, press #1 [employer] Help Desk ([facility]): [phone] or [phone] I am the Staff Provider. /deanna/ NAA LOPEZ CLINICAL PSYCHOLOGIST Signed: 08/22/2024 16:13 NAA LOPEZ [facility]
--- OUTSIDE RECORDS SUMMARY | 2024-08-26 11:00 | XMS_ITS | Encounter Summary ---
Author Name [facility] [place] [facility] Address [address] [place] [address] Care Team Providers Care Milieu Counselor Name Role Phone ROSARIO ESCALERA Primary Care [...] section includes the information on [place] at [place] for the Encounter. Date/Time Encounter Type Encounter Description Reason Provider Source Aug 26, 2024 03:00 PM OFFICE O/P NEW LOW 30 MIN ANESTHESIA PRE/POST-OP CONSULT ICD-10-CM Z01.810 Encounter for preprocedural cardiovascular examination ARMANDO SCHULTZ Encounter Template Text not used by [place] Assessments - Encounter Diagnoses This section includes the primary and secondary diagnoses documented for the Encounter. Date/Time Primary/Secondary Diagnosis Diagnosis Name Provider Source Aug 26, 2024 03:31 PM PRIMARY Encounter for preprocedural cardiovascular examination ARMANDO SCHULTZ [facility] Aug 26, 2024 03:31 PM SECONDARY Acquired absence of spleen ARMANDO SCHULTZ [facility] Aug 26, 2024 03:31 PM SECONDARY Contact with and exposure to other hazardous substances ARMANDO SCHULTZ [facility] Aug 26, 2024 03:31 PM SECONDARY [facility]reditary [facility]rocytosis [facility] Aug 26, 2024 03:31 PM SECONDARY Major depressive disorder, single episode, unspecified [facility] Aug 26, 2024 03:31 PM SECONDARY Other migraine, not intractable, without status migrainosus [facility] Aug 26, 2024 03:31 PM SECONDARY Post-traumatic stress disorder, chronic [facility] Aug 26, 2024 03:31 PM SECONDARY Primary insomnia [facility] Aug 26, 2024 03:31 PM SECONDARY Suicidal ideations [facility] Aug 26, 2024 03:31 PM SECONDARY Tobacco use [facility] Plan of Treatment: Future Appointments (+ 6 months) and Future Tests (+/- 45 days) The Plan of Treatment section includes future care activities for the patient from [facility] [place] [facility] This section includes future appointments and future orders which are active, pending or scheduled. Future Appointments This section includes appointments that were scheduled to occur 6 months from the date of the Encounter, up to a maximum of 20 appointments. The data comes from all [facility]. Appointment Date/Time Appointment Type Appointme nt Facility Name Aug 27, 2024 02:45 PM AMBULATORY - NONE [facility] Aug 27, 2024 03:00 PM AMBULATORY - PSYCHIATRY [facility] Aug 28, 2024 09:30 AM AMBULATORY - PSYCHIATRY [facility] Aug 29, 2024 01:30 PM AMBULATORY - PSYCHIATRY [facility] Sep 03, 2024 01:00 PM AMBULATORY - PSYCHIATRY [facility] Sep 04, 2024 01:00 PM AMBULATORY - NEUROLOGY [facility] Sep 05, 2024 10:00 AM AMBULATORY - NONE [facility] Sep 25, 2024 01:00 PM AMBULATORY - SURGERY [facility] Oct 03, 2024 01:00 PM AMBULATORY - REHAB MEDICIN E [facility] October 21, 2024 03:00 PM AMBULATORY - PSYCHIATRY [facility] November 03, 2024 02:30 PM AMBULATORY - PSYCHIATRY [facility] November 04, 2024 02:30 PM AMBULATORY - SURGERY [facility] November 11, 2024 09:00 AM AMBULATORY - NONE [facility] November 13, 2024 02:00 PM AMBULATORY - NONE [facility] Nov 17, 2024 11:00 AM AMBULATORY - PSYCHIATRY [facility] Dec 01, 2024 08:30 AM AMBULATORY - PSYCHIATRY [facility] Dec 01, 2024 01:00 PM AMBULATORY - NONE [facility] Dec 03, 2024 03:00 PM AMBULATORY - NONE [facility] Dec 08, 2024 03:30 PM AMBULATORY - PSYCHIATRY [facility] Dec 11, 2024 11:00 AM [facility] Lab Results: +/- 30 days of the [...] Type Comment Aug 27, 2024 02:35 PM [facility] VITAMIN D (TOTAL) SERUM Specimen Type: SERUM Comment: VITD One expert panel recommended a target range of 30-40 ng/mL. Ordering Provider: ROSARIO ESCALERA Report Released Date/Time: Jun 25, 2024 10:05 AM Reporting Lab: [address] [address] Performing Lab: [address] [address] VITAMIN D (TOTAL) 10 ng/mL L 30-60 Aug 27, 2024 02:35 PM [facility] LIPID PROFILE PLASMA Specimen Type: PLASMA Comment: [...] 25, 2024 03:09 PM Reporting Lab: [address] [address] Performing Lab: [address] [address] CHOLESTEROL 276 mg/dL H 0-199 LDL CHOLESTEROL 192 mg/dL H 0-99 HDL CHOLESTEROL 38 mg/dL L >40 TRIGLYCERIDE 469 mg/dL H 0-149 Aug 27, 2024 02:35 PM [facility] HEPATIC FUNCTION PANEL PLASMA Specimen Type: PLASMA [...] 25, 2024 10:05 AM Reporting Lab: [address] [address] Performing Lab: [address] [address] ALBUMIN 5.0 g/dL H 3.5-4.8 ALKALINE PHOSPHATASE 72 U/L 40-150 ALT/SGPT 27 U/L 0-55 AST/SGOT 25 U/L 10-40 BILIRUBIN,DIRECT 0.1 mg/dL 0.0-0.5 PROTEIN, TOTAL 8.1 g/dL 6.4-8.3 BILIRUBIN, TOTAL 0.4 mg/dL 0.2-1.2 Vital Signs: All taken on the encounter date This section contains inpatient and outpatient Vital Signs collected on the date of the Encounter. Date/Time Temperature Pulse Blood Pressure Respiratory Rate SP02 Pain Height Weight Body Mass Index Source Aug 26, 2024 02:29 PM 98.2 79 125/76 16 95 2 70 173.5 25 [facility] Social History: Smoking Status (Most current) and Tobacco Use (All prior to encounter date) This section includes the most current, and the historical, smoking and tobacco- related health factors from the [place] facility where the Encounter took place. Current Smoking Status This section includes the most current smoking, or tobacco-related health factor, from the [place] facility where the Encounter took place. Date/Time Current Smoking Status Comment Facil ity Jun 06, 2024 11:30 AM VA-TOBACCO USE EVERY DAY CIGARET [facility] Tobacco Use History This section includes a history of the smoking, or tobacco-related health factors, that were collected on or before the date of the Encounter. The data comes from the [place] facility where the Encounter took place. Date/Time Smoking Status/Tobacco Use Comment F acility Jun 06, 2024 11:30 AM VA-TOBACCO USE ADVICE [facility] Jun 06, 2024 11:30 AM VA-TOBACCO USE HEALTH EDUCATION SPECIALIST NO [facility] Jun 06, 2024 11:30 AM VA-TOBACCO USE EVERY DAY CIGARET MANNY [facility] Jun 06, 2024 11:30 AM VA-TOBACCO USE EVERY DAY ENDS [facility] Jun 06, 2024 11:30 AM VA-TOBACCO USE EVERY DAY OTHER T YPE [facility] Jun 06, 2024 11:30 AM VA-TOBACCO USE MED [facility] Jun 19, 2023 10:00 AM TOBACCO FORMER USER MORE 12 [facility] Advance Directives: All historical and current Section Date Range: From patient's date of to the date document was created. This section includes ALL of a patient's completed or amended [place] Advance and Rescinded Directives. The entries below indicate that a directive exists for the patient, but an actual copy is not included with this document. The data comes from all [facility]. Date Advance Directives Provider Source October 22, 2023 ADVANCE DIRECTIVE DISCUSSION SABINA NAIR [facility] Pathology Reports: +/- 30 days of the [...] the Encounter. The data comes from all [place] treatment facilities. Date/Time Pathology Report Provider Source Sep 22, 2024 11:35 AM LR SURGICAL PATHOL OGY REPORT: LOCAL TITLE: LR SURGICAL PATHOLOGY REPORT STANDARD TITLE: PATHOLOGY REPORT DATE OF NOTE: SEP 22, 2024@11:35 ENTRY DATE: SEP 22, 2024@11:35 AUTHOR: YVROSE KEBEDE EXP COSIGNER: URGENCY: STATUS: [...] 05, 2024 11:07): A-NASOPHARYNGEAL MASS LYMPHOMA PROTOCOL *+* SUPPLEMENTARY REPORT HAS BEEN ADDED *+* *+* REFER TO BOTTOM OF REPORT *+* - - - - - - - [...] Surgeon: Eugenia Ruffin Attending Surgeon: Bharathi Johns =-=-=-=-=-=-=-=-=-=-=-=-=-=-=-=-=-=-=- =-=-=-=-=-=-=-=-=-=-=-=-=-=-=-=-=-=-=- =-= - - - - - - - [...] Flow Cytometry RLLYMP Reflex report performed by [facility] [place], [address] [place], [place] [id number], specimen #[id number], electronically signed by Fadia Pizarro M.D. FLOW [...] RPMI and sent for flow cytometry at [facility]. The remainder of the specimen is submitted in 1 cassette. SUPPLEMENTARY REPORT(S): Supplementary Report Date: SEP 22, 2024 *+* SUPPLEMENTARY REPORT HAS BEEN ADDED/MODIFIED *+* (Added/Last released: Sep 22, 2024 11:19 Signed by YVROSE KEBEDE) Surgical Pathology report performed by [facility] [place], [address] [place], [place] [id number], specimen #[id number], electronically signed by Sarah Merritt M.D., Ph.D. FINAL DIAGNOSIS A. OUTSIDE MATERIALS RECEIVED FROM [facility], [place], [place] (EXTERNAL ID [id number], 09/05/2024): ADENOID BIOPSY: - REACTIVE LYMPHOID TISSUE, SEE COMMENT. SEE COMPLETE REPORT(S) IN [facility] /deanna/ YVROSE KEBEDE PATHOLOGIST Signed Sep 22, 2024@11:35 Performing Laboratory: Surgical Pathology Report Performed By: [facility] [CLIA# [id number]] [address] [place] [address] $FTR - - - - - - - - - - - - - - - - - - - - - - - - - - - - - - - - - - - - - - - - (End of report) YVROSE KEBEDE clr Date Sep 08, 2024 - - - - - - - - - - - - - - - - - - - - - - - - - - - - - - - - - - - - - - - - MARION SANTACRUZ STANDARD FORM 515 ID:[id number] SEX:M :1995 AGE: 29 LOC:[facility] PCP: Rosario Escalera DO /deanna/ YVROSE KEBEDE PATHOLOGIST Signed: 09/22/2024 11:35 YVROSE KEBEDE [facility] Sep 08, 2024 10:46 AM LR SURGICAL [...] Surgeon: Eugenia Ruffin Attending Surgeon: Bharathi Johns =-=-=-=-=-=-=-=-=-=-=-=-=-=-=-=-=-=-=- =-=-=-=-=-=-=-=-=-=-=-=-=-=-=-=-=-=-=- =-= - - - - - - - [...] Flow Cytometry RLLYMP Reflex report performed by [facility] [place], [address] [place] [address], [place] [address], specimen #[id number], electronically signed by Fadia Pizarro M.D. FLOW [...] RPMI and sent for flow cytometry at [facility]. The remainder of the specimen is submitted in 1 cassette. PIERRE gonzalez/ YVROSE KEBEDE PATHOLOGIST Signed Sep 08, 2024@10:46 Performing Laboratory: Surgical Pathology Report Performed By: [facility] [CLIA# [id number]] [address] [place] [address] $FTR - - - - - - - - - - - - - - - - - - - - - - - - - - - - - - - - - - - - - - - - (End of report) YVROSE KEBEDE clr Date Sep 08, 2024 - - - - - - - - - - - - - - - - - - - - - - - - - - - - - - - - - - - - - - - - MARION SANTACRUZ STANDARD FORM 515 ID:[id number] SEX:M :1995 AGE: 29 LOC:[facility] PCP: DO chirag Lara PATHOLOGIST Signed: 09/08/2024 10:46 YVROSE KEBEDE [facility] Encounter Notes: All associated encounter notes This section contains the clinical notes associated to the Encounter. Date/Time Encounter Note(s) Provider Source Aug 26, 2024 03:24 PM CONSULT: LOCAL TITLE: PRE OP SHORT MEDICAL OPTIMIZATION (C) STANDARD TITLE: CONSULT DATE OF NOTE: AUG 26, 2024@15:24 ENTRY DATE: AUG 26, 2024@15:24:45 AUTHOR: ARMANDO SCHULTZ EXP COSIGNER: URGENCY: STATUS: COMPLETED Planned surgery/procedure: Adenoidectomy, bilateral inferior turbinate reduction, bilateral myringotomies with or without pressure equalization tubes Date of surgery/procedure: 09/05/24 History obtained from: patient C.C.: I ENT surgery.... HPI: Mr. Santacruz is a 28 year old male here for preoperative evaluation for surgery listed above. 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 -Leukocytosis,Erythrocytosis and thrombocytosis after spleenectomy -Cervical disc herniation: still having pain but no injection -Depression with Suicidal thoughts 08/2023 -Chronic PTSD:seeing -Insomnia : seeing sleep clinic -Tobacco use -Exposure to potentially hazardous substance RECENT [facility]: denies Early 05/2024:[facility]: went to ED for Left great toe pain, though he broke it but per ED said no broken toe, sprained it PSH: -Bilateral no scalpel vasectomy 07/2024 -direct laryngoscopy, tonsillectomy 06/2023 -SPLEENECTOMY 01/2020 -RIGHT INGUINAL HERNIA 2012 -Cholecystectomy 2009 -EGD and colonoscopy 2009 SOCIAL HX: Alcohol: denies Tobacco:smoked for 0.5 x 1 to 1.5 yrs,quit vaping 1.5 weeks ago Illegal Drugs: denies Cannabis: denies ANESTHESIA HISTORY: -mild nausea after spleen surgery -burning in his arm from anesthesia medications -has a high tolerance to most medications FAMILY HX: No family history of problems with anesthesia PCN ALLERGY :NO CEPHALOSPORIN ALLERGY:NO REVIEW OF SYSTEMS: GENERAL: Denies recent fevers, aches or chills, no weight loss. NEURO: Denies CVA/TIA, seizures, lightheadedness, dizziness or syncope. +Migraines daily--not new HEENT: Denies vision changes, TAPIA, hearing loss +b/l serous effusions +deviated septum; nasal congestion +small oral opening CARDIAC/VASC: Denies CP/chest tightness, palpitations, orthopnea, PND,cardiac stents/ non-cardiac stents, claudication symptoms, edema. RESP: Denies TIN/COPD/Asthma, recent URI/PNA, SOB/WHITING, cough or wheeze, inability to lay flat. +occ. phlegm-- not new GI: Denies GERD, PUD, trouble swallowing, recent GI bleed, N/V, liver dz. + IBS: constantly : Denies kidney dz, dysuria, hematuria ENDO: Denies thyroid dz, no steroid use in the last 6 mo HEME: Denies bleeding disorders, anemia or DVT/PE, or coagulopathy. +Leukocytosis and thrombocytosis after spleenectomy MSK: Denies back pain, neck pain, joint pain + neck, low back, b/l shoulders, b/l knee pain PSYCH: I am ok having my surgery...... *All ROS pertinent positives listed in PMHx & above FUNCTIONAL STATUS: DASI RAW score: 58.2 Metabolic equivalents/exertional tolerance (METS): > 4. Can walk 2 flights of stairs without stopping/difficulty:yes Can walk 4 blocks without stopping/difficulty:yes -[employer] arts classes a few days a week, bought a home, doing some work Exertional dyspnea, syncope or cp with minimal activities such as walking to Bathroom or mailbox: No PREOP ANESTHESIA CLINIC-CLOCK DRAWING -> accurate IMAGING STUDIES REVIEWED: CXR: (no data) ECG: (no data) PHYSICAL EXAMINATION: T: 98.2 F [36.8 C] (08/26/2024 14:29) P: 79 (08/26/2024 14:29) R: 16 (08/26/2024 14:29) BP: 125/76 (08/26/2024 14:29) W: 173.5 lb [78.70 kg] (08/26/2024 14:29) BMI: 24.9 Pain: 2 (08/26/2024 14:29) Pulse OX: 95% (08/26/2024 14:29) Neck Circ:15 in. GEN: Alert, cooperative NEURO: A&Ox3, GOLD HEENT: Moist mucous membranes Airway: Mallampati: class II Oral Opening: ++small oral opening Thyromental distance: > 3 fingers Neck ROM: adequate ROM Teeth:upper and lower dentition in fair repair,missing left front tooth CV: RRR with Normal S1 and S2, no murmurs, no carotid bruits RESP: CTA b/l without wheezing, rhonchi or crackles ABD: soft, NT, ND with +BS EXT/Skin: No edema of b/l LE's , PT/RP pulses = 2+ b/l LABORATORY STUDIES: \ 16.7 / 14.7 ------- 430 (06/19/2024) / 49.1 \ MCV: 80.4 (06/19/24 09:49) BLOOD NEUT. %: 43.5 (12/19/23 09:26) BLOOD 137 107 12.0 / 94 (06/19/2024) 4.3 21 1.0 \ Collection DT Specimen Test Name Result Units Ref Range 06/19/2024 09:49 PLASMA CALCIUM 9.5 mg/dL 8.6 - 10.3 Collection DT Specimen Test Name Result Units Ref Range 06/19/2024 09:49 PLASMA MAGNESIUM 2.2 mg/dL 1.6 - 2.6 SLT - Hgb A1c No data available for: HEMOGLOBIN A1C SLT - Lab Tests Selected Collection DT Specimen Test Name Result Units Ref Range 06/19/2024 09:49 PLASMA EGFR (CALCULATED) 104.0 mL/min. 12/19/2023 09:26 PLASMA EGFR (CALCULATED) 104 mL/min. ALBUMIN: 4.8 (06/19/24 09:49) PLASMA ALKPHOS: 73 (06/19/24 09:49) PLASMA ALT/SGPT: 25 (06/19/24 09:49) PLASMA AST/SGOT: 21 (06/19/24 09:49) PLASMA BILI T: 0.7 (06/19/24 09:49) PLASMA T PROTEIN:7.7 (06/19/24 09:49) PLASMA TSH: 4.701 (06/19/24 09:49) PLASMA Specimen Collection Date: Jun 19, 2024@09:49 Test name Result units Ref. range Site Code VITAMIN D (TOTAL) 9 L ng/mL 30 - 60 [541] ALLERGIES/ADVERSE REACTIONS Type: DRUG Date/Time Reactant Severity [...] 10MG TAB TAKE ONE TABLET BY MOUTH TWICE ACTIVE A DAY FOR REPEATED EPISODES OF ANXIETY [...] ONE TABLET BY MOUTH ACTIVE EVERY DAY 8) SINUS RINSE NEILMED PKT [...] A DAY Inactive Outpatient Medications Status 1) CEPHALEXIN 500MG CAP TAKE ONE CAPSULE BY MOUTH THREE TIMES A DAY 2) FLUTICASONE PROP 50MCG 120D NASAL INHL USE 2 SPRAYS IN EACH NOSTRIL EVERY DAY NASAL CONGESTION 12 Total Medications MEDICATION RECONCILIATION MEDICATION RECONCILIATION REPORT reviewed and [...] a complete and accurate list of medications. RISK ASSESSMENT: -Cardiac Risk Risk Level of Surgery Low - Superficial, endoscopic and ophthalmologic Patient Reported Highest Level of Activity without Symptoms Mets >10 Strenuous sports like swimming, singles tennis, football, basketball Revised Cardiac Risk Index (Fred) Score Final score: O -Pulmonary Risk If no TIN, screen for TIN with STOPBANG Snore Tired - often tired during the day Obstruction - witnessed to stop breathing while asleep Gender = Male STOPBANG Score: 4 Other Pulmonary Risk : former smoker and recent quit vaping -Frailty Risk FRAILTY CALCULATION: Risk Analysis Index (DU) score is: Score: 7 FRAILTY SCORE:7 CALCULATED SCORE Variable Score Sex: 3 Cancer Status: No [...] without prompting or help DU Score: 7 -Emergence Delirium Risk Difficulty sleeping Nightmares Flashbacks Irritability Anxiety PTSD OVERALL ASSESSMENT/PLAN: This is a 27 yo vet tentatively scheduled to have an Adenoidectomy, bilateral inferior turbinate reduction, bilateral myringotomies with or without pressure equalization tubes 09/05/24. 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 *No cardiac or pulmonary concerns anesthesia alert: small oral opening,high tolerance to medications, anaphylaxis with morphine RCRI: 0 . Functional status with >4 METs. No exertional symptoms reported. Final Statement of Risk Stratification and Optimization Patient is acceptable for surgery *Reviewed his 06/19/24 CBC, CMP, TSH: his CO2 is lower 21 prior 25 (12/18/24), WBC's are more elevated, WBC's are more elevated 14.7 prior 12.4 (12/19/23), RBC's more elevated 6.11 prior 5.95, PLTs are more elevated 430 prior 417 *No further testing needed INSTRUCTIONS: * NOTHING TO EAT OR DRINK AFTER MIDNIGHT unless otherwise instructed ON THE NIGHT BEFORE YOUR SURGERY including gum and mints. *Medications reviewed and instructions provided to patient *OVER THE COUNTER OR PRESCRIBED: VITAMIN E, C, K, B VITAMINS, FISH OILS,INCLUDING MULTIVITAMINS, AND ALL SUPPLEMENTS INCLUDING HERBAL SUPPLEMENTS, SHOULD BE STOPPED 7 DAYS/1 WEEK BEFORE SURGERY *Take Tylenol/acetaminophen for pain if needed including the ON THE DAY OF SURGERY IF NEEDED *HOLD NSAIDS 3 days prior to surgery including: ibuprofen, naproxen, aleve, motrin etc. MEDICATIONS TO TAKE THE EVENING OR NIGHT BEFORE SURGERY: -AMITRIPTYLINE -BUSPIRONE -DIVALPROEX -FLUTICASONE nasal spray if needed -SINUS RINSE IF NEEDED -SERTRALINE MEDICATIONS TO HOLD/STOP ON DAY OF SURGERY: -FLUTICASONE nasal spray -SINUS RINSE MEDICATIONS TO TAKE DAY OF SURGERY: *take with a sip of water, NO FOOD -ATORVASTATIN -BUSPIRONE *if you are started on a new medication prior to surgery; hold it the day of surgery /deanna/ ARMANDO SCHULTZ NURSE PRACTITIONER Signed: 08/26/2024 15:33 Receipt Acknowledged By: 08/28/2024 07:28 /deanna/ DRU BLAIR REGISTERED NURSE ARMANDO SCHULTZ [facility]
--- OUTSIDE RECORDS SUMMARY | 2024-08-27 11:00 | XMS_ITS | Encounter Summary ---
Author Name [facility] of [facility] Affairs (MD) Organization [facility] Address [address] [place] [address] Care Team Providers Care Tucking Machine Operator Name Role Phone ROSARIO ESCALERA [...] Type Encounter Description Reason Provider Source Aug 27, 2024 03:00 PM MTMS BY LISA LÓPEZ [facility] - IND ICD-10-CM F43.12 Post-traumatic stress disorder, chronic VALENTINA TENORIO Encounter Template Text not used by MD Assessments - Encounter Diagnoses This section includes the primary and secondary diagnoses documented for the Encounter. Date/Time Primary/Secondary Diagnosis Diagnosis Name Provider Source Aug 28, 2024 04:13 PM PRIMARY Post-traumatic stress disorder, chronic VALENTINA TENORIO CB Aug 28, 2024 04:13 PM SECONDARY Major depressive disorder, recurrent, moderate VALENTINA TENORIO CB Aug 28, 2024 04:13 PM SECONDARY Personality disorder, unspecified WILLBORN,VALENTINA T J [facility] Aug 28, 2024 04:13 PM SECONDARY Primary insomnia VALENTINA TENORIO Flavio [facility] Aug 28, 2024 04:13 PM SECONDARY Suicidal ideations VALENTINA TENORIO [facility] Aug 28, 2024 04:13 PM SECONDARY Tobacco use VALENTINA TENORIO [facility] Plan of Treatment: Future Appointments (+ 6 months) and Future Tests (+/- 45 days) The Plan of Treatment section includes future care activities for the patient from all [facility]. This section includes future appointments and future orders which are active, pending or scheduled. Future Appointments This section includes appointments that were scheduled to occur 6 months from the date of the Encounter, up to a maximum of 20 appointments. The data comes from all [facility] facilities. Appointment Date/Time Appointment Type Appointme nt Facility Name Aug 28, 2024 09:30 AM AMBULATORY - PSYCHIATRY [facility] Aug 29, 2024 01:30 PM AMBULATORY - PSYCHIATRY [facility] Sep 03, 2024 01:00 PM AMBULATORY - PSYCHIATRY [facility] Sep 04, 2024 01:00 PM AMBULATORY - NEUROLOGY [facility] Sep 05, 2024 10:00 AM AMBULATORY - NONE [facility] Sep 25, 2024 01:00 PM AMBULATORY - SURGERY [facility] Oct 03, 2024 01:00 PM AMBULATORY - REHAB MEDICIN E [facility] October 21, 2024 03:00 PM AMBULATORY - PSYCHIATRY [facility] November 03, 2024 02:30 PM AMBULATORY - PSYCHIATRY [facility] November 04, 2024 02:30 PM AMBULATORY - SURGERY [facility] November 11, 2024 09:00 AM AMBULATORY - NONE [facility] November 13, 2024 02:00 PM AMBULATORY - NONE [facility] Nov 17, 2024 11:00 AM AMBULATORY - PSYCHIATRY [facility] Dec 01, 2024 08:30 AM AMBULATORY - PSYCHIATRY [facility] Dec 01, 2024 01:00 PM AMBULATORY - NONE [facility] Dec 03, 2024 03:00 PM AMBULATORY - NONE [facility] Dec 08, 2024 03:30 PM AMBULATORY - PSYCHIATRY [facility] Dec 11, 2024 11:00 AM AMBULATORY - NONE [facility] Dec 15, 2024 09:30 AM AMBULATORY - PSYCHIATRY [facility] Dec 15, 2024 09:45 AM AMBULATORY - NONE [facility] Lab Results: +/- 30 days of the [...] Type Comment Aug 27, 2024 02:35 PM [facility] VITAMIN D (TOTAL) SERUM Specimen Type: SERUM Comment: VITD One expert panel recommended a target range of 30-40 ng/mL. Ordering Provider: ROSARIO ESCALERA Report Released Date/Time: Jun 25, 2024 10:05 AM Reporting Lab: [address] [address] Performing Lab: [address] [address] VITAMIN D (TOTAL) 10 ng/mL L 30-60 Aug 27, 2024 02:35 PM [facility] HEPATIC FUNCTION PANEL PLASMA Specimen Type: [...] Jun 25, 2024 10:05 AM Reporting Lab: [address] [address] Performing Lab: [address] [address] ALBUMIN 5.0 g/dL H 3.5-4.8 ALKALINE PHOSPHATASE 72 U/L 40-150 ALT/SGPT 27 U/L 0-55 AST/SGOT 25 U/L 10-40 BILIRUBIN,DIRECT 0.1 mg/dL 0.0-0.5 PROTEIN, TOTAL 8.1 g/dL 6.4-8.3 BILIRUBIN, TOTAL 0.4 mg/dL 0.2-1.2 Aug 27, 2024 02:35 PM [facility] LIPID PROFILE PLASMA Specimen Type: PLASMA [...] Jun 25, 2024 03:09 PM Reporting Lab: [address] [address] Performing Lab: [facility] [id number] [place] [id number] CHOLESTEROL 276 mg/dL H 0-199 LDL CHOLESTEROL [...] 2023 02:00 PM VA-TOBACCO FORMER USER [facility] Tobacco Use History This section includes a history of the smoking, or tobacco-related health factors, that were collected on or before the date of the Encounter. The data comes from the MD facility where the Encounter took place. Date/Time Smoking Status/Tobacco Use Comment F acility May 18, 2023 02:00 PM MD-TOBACCO QUIT 1 TO < 5 YRS [facility] Advance Directives: All historical and current [...] 2023 ADVANCE DIRECTIVE DISCUSSION [facility] Pathology Reports: +/- 30 days of [...] the Encounter. The data comes from all MD treatment facilities. Date/Time Pathology Report Provider Source [...] Flow Cytometry RLLYMP Reflex report performed by [facility], [facility] [place], [address] [place] [id number], specimen #[id number], electronically signed by Fadia Pizarro M.D. FLOW [...] RPMI and sent for flow cytometry at [facility]. The remainder of the specimen is submitted in 1 cassette. SUPPLEMENTARY REPORT(S): Supplementary Report Date: SEP 22, 2024 *+* SUPPLEMENTARY REPORT HAS BEEN ADDED/MODIFIED *+* (Added/Last released: Sep 22, 2024 11:19 Signed by YVROSE KEBEDE) Surgical Pathology report performed by [facility], [facility] [place], [address] [place], [place] [id number], specimen #[id number], electronically signed by Sarah Merritt M.D., Ph.D. FINAL DIAGNOSIS A. OUTSIDE MATERIALS RECEIVED FROM [facility], [place], [place] (EXTERNAL ID [id number], 09/05/2024): ADENOID BIOPSY: - REACTIVE LYMPHOID TISSUE, SEE COMMENT. SEE COMPLETE REPORT(S) IN [facility] // YVROSE KEBEDE PATHOLOGIST Signed Sep 22, 2024@11:35 Performing Laboratory: Surgical Pathology Report Performed By: [facility] [CLIA# [id number]] [address] [place] [address] $FTR - - - - - - - - - - - - - - - - - - - - - - - - - - - - - - - - - - - - - - - - (End of report) YVROSE KEBEDE [facility] Date Sep 08, 2024 - - - - - - - - - - - - - - - - - - - - - - - - - - - - - - - - - - - - - - - - MARION ZHENG STANDARD FORM 515 ID:[id number] SEX:M :1995 AGE: 29 LOC:[facility] PCP: Rosario Escalera DO /deanna/ YVROSE KEBEDE PATHOLOGIST Signed: 09/22/2024 11:35 YVROSE KEBEDE [facility] Sep 08, 2024 10:46 AM LR SURGICAL [...] Flow Cytometry RLLYMP Reflex report performed by [facility], [facility] [place], [address] [place], [place] [id number], specimen #[id number], electronically signed by Fadia Pizarro M.D. FLOW [...] RPMI and sent for flow cytometry at [facility]. The remainder of the specimen is submitted in 1 cassette. PIERRE /deanna/ YVROSE KEBEDE PATHOLOGIST Signed Sep 08, 2024@10:46 Performing Laboratory: Surgical Pathology Report Performed By: [facility] [CLIA# [id number]] [address] [place] [address] $FTR - - - - - - [...] - - MARION ZHENG STANDARD FORM 515 ID:[id number] SEX:M :1995 AGE: 29 LOC:[facility] PCP: Rosario Escalera DO /deanna/ YVROSE KEBEDE PATHOLOGIST Signed: 09/08/2024 10:46 YVROSE KEBEDE [facility] Encounter Notes: All associated encounter notes This section contains the clinical notes associated to the Encounter. Date/Time Encounter Note(s) Provider Source Aug 27, 2024 02:50 PM PRIMARY CARE NURSI NG NOTE: LOCAL TITLE: OUTPATIENT NURSING INTAKE NOTE (T) STANDARD TITLE: PRIMARY CARE NURSING NOTE DATE OF NOTE: AUG 27, 2024@14:50 ENTRY DATE: AUG 27, 2024@14:50:48 AUTHOR: BLANK MENG EXP COSIGNER: URGENCY: STATUS: COMPLETED Hemoglobin A1C Results: No Hemoglobin A1C Results Review Allergies Allergies reviewed and updated per protocol. ALLERGIES/ADVERSE REACTIONS Type: DRUG Date/Time Reactant Severity Reaction 02/15/2023 16:29 HYDROMORPHONE URTICARIA 02/15/2023 16:29 OXYCODONE NAUSEA AND VOMITING 02/15/2023 16:28 MORPHINE ANAPHYLAXIS Have you fallen in the last 30 days? NO MEDICATION LIST REVIEW REPORT Patient states no change in documented OTC/Herbals at this visit. 1. Has the patient been feeling sad or distressed? No 2. Has the patient been having personal or family problems? No 3. Has the patient been experiencing worry and/or stress? No 4. Has the patient been having problems with drugs and/or alcohol? No 5. [place] Crisis Line pocket card was provided to patient. No/patient declined [facility] not documented this visit. /deanna/ BLANK MENG LICENSED PRACTICAL NURSE Signed: 08/27/2024 14:52 [facility] Aug 27, 2024 02:36 PM PSYCHIATRY NOTE: LOCAL TITLE: [facility] PSYCHIATRY NOTE (T) STANDARD TITLE: PSYCHIATRY NOTE DATE OF NOTE: AUG 27, 2024@14:36 ENTRY DATE: AUG 27, 2024@14:36:24 AUTHOR: ABAD TENORIO COSIGNER: URGENCY: STATUS: COMPLETED PSYCHIATRIC EVALUATION NOTE Time in: 1450 Time out: 1540 Total time: 50 min RIVER is a 28yom w/ a MH h/o PTSD, depressive DO unspecified, personality DO unspecified, and insomnia. Chart and available information reviewed. CC: stopped all my medications HPI: Marion was last interviewed 07/18/24 where he reported absence of need for TCA medication for sleep, and further an absence of headache influence. Expressed some concern for burden of medication [...] monitor present approach for further data collection. We resolved to monitor. [place] seen for F appt as planned. Discussed his ENT engagement and upcoming surgery, also discussing sleep therapy and his residual sleep deficits. Inquired on medication use and perceptions of this, with offering clarifications, stating sertraline is something to be talked about, I've been off all my medications for about a month now.. I hit a low period about a month ago, kind of spiraled and having a hard time trying to get out of bed and functioning, and got tired of all the responsibilities, that I wasn't even doing, so the time to take medications.. not a great head space, but I'm doing better and getting back on track . Confirmed that medication nonadherence was all-inclusive. Cited some dietary focus and hydration emphasis since. In the absence of sertraline use, his sleep has been reportedly okay. Getting into better moods, better habits, out of the funk.. I'm sleeping about the same as I was with the sertraline . Latency has been variable, depending on readiness for rest. Maintenance is further variable, depending on symptoms and childcare needs. Most of the time I wake up and just feel groggy, and exhausted no matter what.. it ranges between 15 minutes to an hour for me to just get up, and be patient and functional . Working with sleep therapist on structure of sleep and consistency. His roommates were quite supportive during his down period. Anxiety seems to be better, not seeing the panic as much or issues that I was having months ago . Irritability is managable; children tend to influence patience, although he is able to work with this often. Language and testing their boundaries has been the theme lately with kids. Discussed his goals at this time and reviewed our ability to maintain medication disuse with monitoring. He stated an interest to evaluate and alternative agent, and we discussed this relative to his prior trials and existing formulary and non-formulary options. Denied SI/HI. SUBSTANCE USE HX: Nicotine- vaped nicotine; deferred cessation interest at this time Alcohol- denied Illicit- denied PSYCHIATRIC MEDICATION HISTORY: According to CPRS and V remote data of MD outpatient Rx, the pt has a h/o TRAZODONE (non-VA); ESCITALOPRAM (up to 20mg daily, non-VA); HYDROXYZINE (25mg PRN anxiety, non-VA); SERTRALINE. FLUOXETINE (20mg non-VA); ARIPIPRAZOLE (2mg non-VA). 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 VENLAFAXINE. ALLERGIES/ADVERSE REACTIONS Type: DRUG [...] EACH NOSTRIL EVERY DAY NASAL CONGESTION LABS: PACT lab update collected, pending results ANION GAP:13 (06/19/24 09:49) PLASMA BUN: 12.0 [...] TSH: 4.701 (06/19/24 09:49) PLASMA Vitals: T: 97.2 F [36.2 C] (08/27/2024 14:43) P: 76 (08/27/2024 14:43) R: 16 (08/27/2024 14:43) BP: 124/84 (08/27/2024 14:43) W: 172 lb [78.02 kg] (08/27/2024 14:43) BMI: 24.7 Mental Status Exam: Kacy: 28yom [...] of violence towards others is considered: low [place] made no comments during our conversation that were concerning and/or would suggest that the is at elevated imminent risk of harm to self or others ASSESSMENT: [place] with PTSD, depressive DO unspecified, personality DO unspecified, and insomnia, engaging in a period of acute bereavement which has worsened preexisting symptoms. Reported baseline concerns for sleep dysregulation in maintenance with restricted duration and subsequent and broad neurovegetative mood symptoms in the setting of loss, irritability, mood sequelae, and edginess. Medication trials with mixed results thus far, and issues of durability of benefit and adherence influencing. We will trial an alternative agent, concordant with his stated goals. PLAN: -> PTSD, depressive DO unspecified: - offered supportive listening and encouraged to optimize both medication and counseling therapies - trial duloxetine 20mg QAM, likely starting after surgery - DC sertraline and buspirone -> monitor: mood, sleep, anxiety, SUDHEER -> goals: find something that works -> progress: patient amenable to plan RTC: 6 weeks, sooner PRN. Patient was provided with the 24 Hr. [employer] Crisis Line - Dial [phone], press #1. [...] list of medications. /deanna/ ABAD TENORIO CLINICAL PRINCIPAL ELECTRICAL ENGINEER Signed: 08/28/2024 16:13 ABAD TENORIO [facility]
--- OUTSIDE RECORDS SUMMARY | 2024-08-28 05:30 | XMS_ITS | Encounter Summary ---
Author Name [facility] [place] [facility] [place] Address [address] [place] [address] Care Team Providers Care Laboratory Equipment Installer Name Role Phone ROSARIO ESCALERA Primary Care [...] Type Encounter Description Reason Provider Source Aug 28, 2024 09:30 AM PSYCH DIAGNOSTIC EVALUATION [facility] - IND ICD-10-CM F43.12 Post-traumati c stress disorder, chronic ADDIS CLOUD Encounter Template Text not used by [place] Assessments - Encounter Diagnoses This section includes the primary and secondary diagnoses documented for the Encounter. Date/Time Primary/Secondary Diagnosis Diagnosis Name Provider Source Aug 28, 2024 09:42 AM PRIMARY Post-traumatic stress disorder, chronic ADDIS CLOUD [facility] Aug 28, 2024 09:42 AM SECONDARY Major depressive disorder, single episode, unspecified [facility] CLOUD [facility] Aug 28, 2024 09:42 AM SECONDARY Personality disorder, unspecified ADDIS CLOUD [facility] Aug 28, 2024 09:42 AM SECONDARY Primary insomnia ADDIS CLOUD [facility] Plan of Treatment: Future Appointments (+ 6 months) and Future Tests (+/- 45 days) The Plan of Treatment section includes future care activities for the patient [facility] [place] [facility] This section includes future appointments and future orders which are active, pending or scheduled. Future Appointments This section includes appointments that were scheduled to occur 6 months from the date of the Encounter, up to a maximum of 20 appointments. The data comes from all [place] treatment facilities. Appointment Date/Time Appointment Type Appointme nt Facility Name Aug 29, 2024 01:30 PM AMBULATORY - PSYCHIATRY CL [facility] Sep 03, 2024 01:00 PM AMBULATORY - PSYCHIATRY CL [facility] Sep 04, 2024 01:00 PM AMBULATORY - NEUROLOGY [facility] Sep 05, 2024 10:00 AM AMBULATORY - NONE [facility] Sep 25, 2024 01:00 PM AMBULATORY - SURGERY [facility] Oct 03, 2024 01:00 PM AMBULATORY - REHAB MEDIC[facility] October 21, 2024 03:00 PM AMBULATORY - PSYCHIATRY CL [facility] November 03, 2024 02:30 PM AMBULATORY - PSYCHIATRY CL [facility] November 04, 2024 02:30 PM AMBULATORY - SURGERY [facility] November 11, 2024 09:00 AM AMBULATORY - NONE [facility] November 13, 2024 02:00 PM AMBULATORY - NONE [facility] Nov 17, 2024 11:00 AM AMBULATORY - PSYCHIATRY CL [facility] Dec 01, 2024 08:30 AM AMBULATORY - PSYCHIATRY CL [facility] Dec 01, 2024 01:00 PM AMBULATORY - NONE [facility] Dec 03, 2024 03:00 PM AMBULATORY - NONE [facility] Dec 08, 2024 03:30 PM AMBULATORY - PSYCHIATRY CL [facility] Dec 11, 2024 11:00 AM AMBULATORY - NONE [facility] Dec 15, 2024 09:30 AM AMBULATORY - PSYCHIATRY CL [facility] Dec 15, 2024 09:45 AM AMBULATORY - NONE [facility] Dec 22, 2024 01:30 PM [facility] Lab Results: +/- 30 days of [...] Type Comment Aug 27, 2024 02:35 PM [facility] VITAMIN D (TOTAL) SERUM Specimen Type: SERUM Comment: VITD One expert panel recommended a target range of 30-40 ng/mL. Ordering Provider: ROSARIO ESCALERA Report Released Date/Time: Jun 25, 2024 10:05 AM Reporting Lab: [address] [address] Performing Lab: [address] [address] VITAMIN D (TOTAL) 10 ng/mL L 30-60 Aug 27, 2024 02:35 PM [facility] LIPID PROFILE PLASMA Specimen Type: PLASMA [...] Jun 25, 2024 03:09 PM Reporting Lab: [address] [address] Performing Lab: [address] [address] CHOLESTEROL 276 mg/dL H 0-199 LDL CHOLESTEROL 192 mg/dL H 0-99 HDL CHOLESTEROL 38 mg/dL L >40 TRIGLYCERIDE 469 mg/dL H 0-149 Aug 27, 2024 02:35 PM [facility] HEPATIC FUNCTION PANEL PLASMA Specimen Type: [...] Jun 25, 2024 10:05 AM Reporting Lab: [address] [address] Performing Lab: [address] [address] ALBUMIN 5.0 g/dL H 3.5-4.8 ALKALINE PHOSPHATASE [...] ity May 18, 2023 02:00 PM [place] FORMER USER [facility] Tobacco Use History This section includes a history of the smoking, or tobacco-related health factors, that were collected on or before the date of the Encounter. The data comes from the [place] facility where the Encounter took place. Date/Time Smoking Status/Tobacco Use Comment F acility May 18, 2023 02:00 PM [place]-TOBAC[place] QUIT 1 TO < [address] [facility] Advance Directives: All historical and current Section Date Range: From patient's date of to the date document was created. This section includes ALL of a patient's completed or amended [place] Advance and Rescinded Directives. The entries below indicate that a directive exists for the patient, but an actual copy is not included with this document. The data comes from all [place] facilities. Date Advance Directives Provider Source October 22, 2023 ADVANCE DIRECTIVE DISCUSSION SABINA NAIR [facility] Pathology Reports: +/- 30 days of [...] Flow Cytometry RLLYMP Reflex report performed by [facility], Abad Mccoy Pathology and Laboratory Medicine [place], [address] [place], [place] [id number], specimen #[id number], electronically signed by Fadia Pizarro M.D. FLOW CYTOMETRY (Final result) INTERPRETATION There is no immunophenotypic evidence of involvement by a T-cell lymphoproliferative disorder in this limited sample. Correlation with the histopathologic and clinical findings is suggested. SEE COMPLETE REPORT(S) IN [facility] GROSS DESCRIPTION Specimen is received fresh for frozen section, labeled with the patient's name, medical record number and nasopharyngeal mass . It consists of 2 frey-white soft tissue fragments measuring 0.3 to 0.7 cm in greatest dimension. A portion of the specimen is submitted in RPMI and sent for flow cytometry at [facility]. The remainder of the specimen is submitted in 1 cassette. SUPPLEMENTARY REPORT(S): Supplementary Report Date: SEP 22, 2024 *+* SUPPLEMENTARY REPORT HAS BEEN ADDED/MODIFIED *+* (Added/Last released: Sep 22, 2024 11:19 Signed by YVROSE KEBEDE) Surgical Pathology report performed by [facility], [facility] Pathology and Laboratory Medicine [place], [address] [place], [place] [id number], specimen #[id number], electronically signed by Sarah Merritt M.D., Ph.D. FINAL DIAGNOSIS A. OUTSIDE MATERIALS RECEIVED FROM [facility], [place], [place] (EXTERNAL ID [id number], 09/05/2024): ADENOID BIOPSY: - REACTIVE LYMPHOID TISSUE, SEE COMMENT. SEE COMPLETE REPORT(S) IN [facility] /deanna/ YVROSE KEBEDE PATHOLOGIST Signed Sep 22, 2024@11:35 Performing Laboratory: Surgical Pathology Report Performed By: [facility] [CLIA# [id number]] [address] [place] [address] $FTR - - - - - - - - - - - - - - - - - - - - - - - - - - - - - - - - - - - - - - - - (End of report) YVROSE KEBEDE [facility] Date Sep 08, 2024 - - - - - - - - - - - - - - - - - - - - - - - - - - - - - - - - - - - - - - - - MARION ZHENG STANDARD FORM 515 ID:[id number] SEX:M :1995 AGE: 29 LOC:[facility] PCP: Rosario Escalera DO /deanna/ YVROSE KEBEDE PATHOLOGIST Signed: 09/22/2024 11:35 YVROSE KEBEDE [facility] Sep 08, 2024 10:46 AM LR SURGICAL PATHOL OGY REPORT: LOCAL TITLE: LR SURGICAL PATHOLOGY REPORT STANDARD TITLE: PATHOLOGY REPORT DATE OF NOTE: SEP 08, 2024@10:46 ENTRY DATE: SEP 08, 2024@10:46 AUTHOR: YVROSE KEBEDEIGNER: URGENCY: STATUS: COMPLETED $APHDR - - - [...] Flow Cytometry RLLYMP Reflex report performed by [facility], Abad Roque Pathology and Laboratory [facility] [place], [address] [place] [id number], specimen #[id number], electronically signed by Fadia Pizarro M.D. FLOW [...] RPMI and sent for flow cytometry at [facility]. The remainder of the specimen is submitted in 1 cassette. PIERRE /deanna/ YVROSE KEBEDE PATHOLOGIST Signed Sep 08, 2024@10:46 Performing Laboratory: Surgical Pathology Report Performed By: [facility] [CLIA# [id number]] [address] [place] [address] $FTR - - - - - - - - - - - - - - - - - - - - - - - - - - - - - - - - - - - - - - - - (End of report) YVROSE KEBEDE [facility] Date Sep 08, 2024 - - - - - - - - - - - - - - - - - - - - - - - - - - - - - - - - - - - - - - - - MARION ZHENG STANDARD FORM 515 ID:[id number] SEX:M :1995 AGE: 29 LOC:[facility] PCP: Rosario Escalera DO /deanna/ YVROSE KEBEDE PATHOLOGIST Signed: 09/08/2024 10:46 YVROSE KEBEDE [facility] Encounter Notes: All associated encounter notes This section contains the clinical notes associated to the Encounter. Date/Time Encounter Note(s) Provider Source Aug 28, 2024 09:58 AM TREATMENT PLAN NOT E: LOCAL TITLE: BEHAVIORAL HEALTH ASSESSMENT UPDATE STANDARD TITLE: TREATMENT PLAN NOTE DATE OF NOTE: AUG 28, 2024@09:58 ENTRY DATE: AUG 28, 2024@09:58:45 AUTHOR: ADDIS CLOUD COSIGNER: URGENCY: STATUS: COMPLETED INTERDISCIPLINARY INTEGRATED SUMMARY: Chief Complaint/Hx of Present Illness: PTSD ([place]); Insomnia; Depression; Personality D/O, Cluster B traits MH screens were sent via [employer] prior to appt today MH screens were utilized to illustrate the symptoms to for purposes of informed care to assist in treatment planning today. Assessments were sent to the [place] via text/email. These assessments were completed by MARION ZHENG on their own device on 08/28/2024 8:24:32 AM. PATIENT HEALTH QUESTIONNAIRE-9 (PHQ-9) The patient reported some symptoms of depression; symptoms are not consistent with a major depressive episode. Patient reported being bothered by the following over the last 2 weeks: 1. Little interest or pleasure: Several Days 2. Feeling down, depressed or hopeless: Several Days 3. Trouble sleeping: Several Days 4. Tired, low energy: More than half the days 5. Poor appetite, over-eating: More than half the days 6. Feelings of failure, guilt: More than half the days 7. Trouble concentrating: More than half the days 8. Motor retardation, agitation: Not at all 9. Thoughts better off /hurting self: Several Days PHQ-9 total score = 12 1-4 = minimal symptoms 5-9= mild symptoms 10-14= moderate symptoms 15-19= moderately severe symptoms 20-27= severe depressive symptoms The patient stated that the depressive symptoms made it somewhat difficult to work, take care of things at home, or get along with others. PHQ-9 Total Score (past 180 days): 08/28/2024 12 03/14/2024 14 GENERAL ANXIETY DISORDER-7 (CATY-7) Patient reported being bothered by the following over the last two weeks: 1. Feeling nervous, anxious or on edge: Several days 2. Not being able to stop or control worrying: Several days 3. Worrying too much about different things: Several days 4. Trouble relaxing: More than half the days 5. Feeling restless (hard to sit still): Several days 6. Becoming easily annoyed or irritable: More than half the days 7. Afraid as if something awful might happen: Not at all CATY-7 total score = 8 0-4=minimal symptoms 5-9=mild symptoms 10-14=moderate symptoms 15-21=severe symptoms The patient stated that the anxiety symptoms made it very difficult to work, take care of things at home, or get along with others. CATY-7 Total Score (past 180 days): 08/28/2024 8 03/14/2024 10 PTSD CHECKLIST (PCL-5) - MONTHLY Patient reported being bothered by the following over the past month: 1. Disturbing memories: Quite a bit 2. Disturbing dreams: Not at all 3. Re-experiencing events: Quite a bit 4. Cued distress: Extremely 5. Cued physical symptoms: Extremely 6. Avoiding internal reminders: Extremely 7. Avoiding external reminders: Extremely 8. Trouble with recall: Quite a bit 9. Negative beliefs: Extremely 10. Blaming self/others: Extremely 11. Negative feelings: Extremely 12. Loss of interest: Quite a bit 13. Feeling distant from others: Quite a bit 14. Feeling numb: Quite a bit 15. Feeling irritable: Quite a bit 16. Reckless behavior: Moderately 17. Being super-alert : Moderately 18. Feeling easily startled: Not at all 19. Difficulty concentrating: Moderately 20. Trouble sleeping: Extremely PCL-5 total score = 59 This measure assesses an individual's perception of the distress associated with possible PTSD symptoms. It is not used to diagnose PTSD. Symptoms are rated from 0-4 in terms of distress they cause the individual. Scores that are greater than or equal to 31-33 suggest that the may meet the criteria for a PTSD diagnosis. However, it is important to use caution when using this cutoff since it is possible for some Veterans with scores lower than 31- 33 to meet criteria for PTSD. Additional testing using a structured diagnostic interview, such as the Clinician Administered PTSD Scale for DSM-5, is recommended to confirm diagnostic status. PCL-5 Monthly Total Score (past 180 days): 08/28/2024 59 03/14/2024 52 INSOMNIA SEVERITY INDEX (PAMELLA) Patient reported the severity of insomnia problems in the last two weeks as follows: 1. Difficulty falling asleep: Severe 2. Difficulty staying asleep: Moderate 3. Problems waking up too early: Mild 4. Satisfaction with sleep: Very Dissatisfied 5. Impaired quality of life noticeable to others: Much 6. Distressed by sleep problems: Very Much Worried 7. Interference with daily functioning: Very Much Interfering PAMELLA total score = 21 0-7 = No clinically significant insomnia 8-14 = Subthreshold insomnia 15-21 = Clinical insomnia (moderate severity) 22-28 = Clinical insomnia (severe) PAMELLA Total Score (past 180 days): 08/28/2024 21 06/09/2024 21 Self-Care/Activities of Daily Living: He identifies he stopped MH medications @ 1 month ago d/t depression. He is feeling frustated about the amount of medications he was taking, lack of motivation and struggled to get out of bed/self-care, and spiraling. He reports no shift in his sleep with or w/o medications. He is getting larger blocks of sleep w/no improvement in quality of asleep. He esimates it takes 10-60 min to fall asleep (based on mood). [place] denies alcohol & drug use. Past Psychiatric History: He completed initial MH assessment on 02.09.2023. He completed 3 CBTD appts w/early termination in fall. He previously completed [address] w/prior community therapist and identifies it was not an effective experience. He engaged in 13 out at 14 CBTSP appts w/last appt in December 2023. He met w/[facility] October-November 2023 w/early termination d/t his perception of lack of benefit and work schedule. He completed 6 DBT sessions w/early termination per his preference. began CBTI in August 2024 w/[facility]. He engaged in [employer] grief groups and now works w/[employer] individually. They review goals for MH therapy/support groups, EBPs, and barriers. Family Circumstances: resides w/his 2 adult friends/ couple, their minor son and his minor son. He wants to get back on track w/helping more around the home. He did speak w/his roommate about their coparenting. They also reviewed their communication/expectations w/in relationships and roles in the home. Social/Developmental: He attends community [employer] art classes. He is making more efforts to be active w/the children. Nutrition: He reports appetite to be hit and miss. He denies significant weight changes. He reports caffeine use is mixed w/some days having 1 cup of coffee. Spiritual/Cultural Factors: He is working w/[place] [employer] for individual support. Employment History/Financial History: has is 100% [place]. He is no longer employed per his choice and financial stability w/[place]. Legal Issues: No legal issues reported at this time. declined offer for a copy of the treatment plan: /es/ ADDIS CLOUD [employer]-SUPV CLINICIAL CURRICULUM COORDINATOR Signed: 08/28/2024 09:58 ADDIS CLOUD [facility] Aug 28, 2024 09:55 AM TREATMENT PLAN INT ERDISCIPLINARY NOTE: LOCAL TITLE: BEHAVIORAL HEALTH INTERDISCIPLINARY TREATMENT PLAN STANDARD TITLE: TREATMENT PLAN INTERDISCIPLINARY NOTE DATE OF NOTE: AUG 28, 2024@09:55 ENTRY DATE: AUG 28, 2024@09:56:01 AUTHOR: ADDIS CLOUD EXP COSIGNER: URGENCY: STATUS: COMPLETED BEHAVIORAL HEALTH INTERDISCIPLINARY TREATMENT PLAN UPDATE - Aug, @ 09:55AM Visit Date: Aug, @ 09:30 - LETTY MENENDEZ OP 2 MEDIA DEVELOPER: ADDIS CLOUD / LETTY MENENDEZ [facility] PRESENTING PROBLEM: PTSD ([place]); Insomnia; Depression; Personality D/O, Cluster B traits STRENGTHS: Provider Identified: Active partnership in [employer] PATIENT'S ABILITIES Licensed [employer] Able to transport self Self Identified: trying to be more active w/the children went for a walk w/the kids earlier this week NEEDS: Its not so much what I need, but its the fact that I know something is wrong. work on coping mechanisms PREFERENCES: prefers in person appts BARRIERS: Physical/Medical Issues Chronic psychiatric symptoms, without remission He reports trauma impact on poor short term recall/issues w/focus and concentration PTSD - Avoidance TREATMENT PLAN: Problem: Problem/Need: [SLEEP]: I have been experiencing the following sleep difficulties: difficulty initiating and maintaining sleep. Status: ACTIVE Goal: I want to improve quantity and quality of sleep. Status: ACTIVE Objective: I will learn techniques to reduce the number of minutes to fall asleep from 60 minutes to less than 15 minutes. Progress will be measured thru reduction in PAMELLA and SNQ by at least 3 points. Progress will be measured the identification of at least 3 trigger thoughts. Progress will be measured thru development and utilization of at least 3 relaxation techniques. Progress will be measured thru improvement in sleep to 6 hours of uninterrupted sleep. Progress will be measured by in-office assessment and self-report to interventions. Status: ACTIVE Projected Target: 09/27/2024 Intervention: [PSYCHOTHERAPY] My provider will work with me to achieve this goal and objective through CBTI Status: ACTIVE Discipline: Outpatient Mental Health Time Frame: One time every 2 weeks for 6 weeks Providers: NAA LOPEZ: CLINICAL PSYCHOLOGIST Objective: I will take medications as prescribed to promote improvement in sleep. Improvement will be measured through in-office assessment and self-report. Status: ACTIVE Projected Target: 09/27/2024 Intervention: [MEDICATION MANAGEMENT] My provider will prescribe medication to manage my symptoms and monitor my response. Status: ACTIVE Discipline: Outpatient Mental Health Time Frame: Four times per year for 1 year Providers: ABAD TENORIO: CLINICAL PRINT BINDING WORKER Problem: Problem/Need: [PERSONALITY DISORDER]: I have experienced a long-standing pattern of suicidal thoughts, avoidance, and instability relationships Status: ACTIVE PHQ9: 08/28/2024 @ 08:24 PHQ9=12 CATY-7: 08/28/2024 @ 08:24 Anxiety=8 PCL-5: 08/28/2024 @ 08:24 PCL-5=59 Goal: I want to be more stable emotionally and less impulsive in my actions. Status: ACTIVE Goal: I want to learn how to approach my life in a more even and flexible way. Status: ACTIVE Objective: I will learn techniques to delay [...] relaxation techniques. Progress will be measured by in-office assessment and self-report to interventions. Status: ACTIVE Projected Target: 02/28/2025 Intervention: [PSYCHOTHERAPY] My provider will work with me to achieve this goal and objective through DBT Skills Status: ACTIVE Discipline: Outpatient Mental Health Time Frame: One time per month for 6 months Providers: ADDIS CLOUD: CLINICAL CURRICULUM COORDINATOR Problem: [place] has not been able to recover from the traumatic event(s) they experienced, as evidenced by hyperarousal, cognitive distortions, avoidance, and sleep disturbance Status: ACTIVE Goal: Increase [place]'s ability to make sense of traumatic experiences, and feel the natural emotions associated with them. Status: ACTIVE Objective: [place] will experience fewer and less intense symptoms [...] will be measured by in-office assessment and self-report to interventions. Status: ACTIVE Projected Target: 02/28/2025 PHQ9: 02/09/2023 @ 10:20 PHQ9=18 CATY-7: 02/09/2023 @ 10:20 Anxiety=10 PCL-5: 02/09/2023 @ 10:20 PCL-5=49 Intervention: Individual MH therapy - EBP and stress mgmt techniques Status: ACTIVE Discipline: Outpatient Mental Health Time Frame: Two times per month for 6 months Providers: ADDIS CLOUD: CLINICAL CURRICULUM COORDINATOR Objective: [place] will experience fewer and less intense symptoms of PTSD as measured by a decrease of greater than or equal to 10 points on the PCL. Progress will be measured thru reduction in PHQ9 and GAD7 by at least 3 points. Progress will be measured thru taking MH medications as prescribed. Progress will be measured by in-office assessment and self-report to interventions. Status: ACTIVE Projected Target: 02/28/2025 PHQ9: 03/14/2024 @ 08:49 PHQ9=14 CATY-7: 03/14/2024 @ 08:49 Anxiety=10 PCL-5: 03/14/2024 @ 08:49 PCL-5=52 Intervention: MH medication mgmt Status: ACTIVE Discipline: Outpatient Mental Health Time Frame: Five times per year for 1 year Providers: ABAD TENORIO: CLINICAL PRINT BINDING WORKER DISCIPLINE: Outpatient Mental Health Entered Treatment: 02/12/2023 @ 03:15PM Review Date: 02/24/2025 Anticipated Discharge: None DISCIPLINE: V10 Clinical Resource Hub Entered Treatment: None Review Date: None Anticipated Discharge: None REFERRED NEEDS OR GOALS: Description: All Medical Problems will be referred to 's PCP for evaluation and treatment. Created: 02/12/2023 (by ADDIS CLOUD) Status: N/A Description: [place] Created: 03/14/2024 (by ADDIS CLOUD) Status: N/A PATIENT ACTION: PATIENT AGREED TO PLAN DISCUSSED. FAMILY ACTION: PATIENT'S FAMILY NOT AVAILABLE. INTERDISCIPLINARY TEAM: ADDIS CLOUD: CLINICAL CURRICULUM COORDINATOR BLANK MENG: LICENSED PRACTICAL NURSE BLADIMIR VENCES: NAA CHANEY: CLINICAL PSYCHOLOGIST ABAD TENORIO: CLINICAL PRINT BINDING WORKER COLLABORATION: Other [place] Services [facility] MH - MH medication mgmt Sleep Clinic - CBTI Provider [place] COMMUNICATION: Relevant treatment options, including evidence-based interventions, were considered and discussed with the . YES A copy of the treatment plan was given to the . NO Risks, benefits, and potential complications were discussed with the [place]. YES /es/ ADDIS HARDY CLINICIAL CURRICULUM COORDINATOR Signed: 08/28/2024 09:56 Receipt Acknowledged By: 08/28/2024 11:38 /es/ BLANK MENG LICENSED PRACTICAL NURSE 08/28/2024 10:13 /es/ CHAPLAIN BLADIMIR CARLIN 08/28/2024 12:43 /es/ NAA LOPEZ CLINICAL PSYCHOLOGIST 08/28/2024 10:22 /es/ ABAD TENORIO CLINICAL PRINT BINDING WORKER ADDIS CLOUD CB Aug 28, 2024 09:37 AM MENTAL HEALTH COUN SELING NOTE: LOCAL TITLE: PSYCHIATRY PSYCHOTHERAPY INDIVIDUAL NOTE (T) STANDARD TITLE: MENTAL HEALTH COUNSELING NOTE DATE OF NOTE: AUG 28, 2024@09:37 ENTRY DATE: AUG 28, 2024@09:37:10 AUTHOR: ADDIS CLOUD EXP COSIGNER: URGENCY: STATUS: COMPLETED PSYCHIATRY PSYCHOTHERAPY INDIVIDUAL NOTE (T) Has ADDENDA Session Time and Duration: 9:30 am - 10:02 am 32 minutes MH assessment: 02.09.2023 Updated MH assessment: 08.28.2024 DIAGNOSIS: PTSD ([place]); Insomnia; MDD, recurrent, moderate; Personality D/O, Cluster B traits STRENGTHS: Self-Identified: trying to be more active w/the children went for a walk w/the kids earlier this week Provider Identified: Active partnership in [employer] PATIENT'S ABILITIES Licensed [employer] Able to transport self Date Treatment Plan is due: 02.28.2025 Treatment Plan Goals: Goal: I want to be more stable emotionally and less impulsive in my actions. Goal: I want to learn how to approach my life in a more even and flexible way. Goal: Increase [place]'s ability to make sense of traumatic experiences, and feel the natural emotions associated with them. Goal: I want to improve quantity and quality of sleep. PROGRESS TOWARDS GOAL: Minimal progress clinical reminders due: None TYPES OF THERAPY: Individual METHOD OF THERAPY: Stress Mgmt. Haily is 28 y/o male w/100% SC being treated in Specialty for therapy. He presents on time to scheduled in person therapy appt. [place] is agreeable to updating [place] plan (see separate note) which includes update on present day events and coping. He would like to continue in therapy. He identifies he has not had his minor son resume therapy and reports his recent depressive episode was a factor. He also has upcoming surgery for sinuses. would like to meet again in a month. [place] is calm and stable at the end [...] support and uses active listening. SW reviews distress tolerance skills and options for Trauma & Depression EBPs. SW reviews cognitive behavioral skills from CBTI can be utilized for mgmt. of MH symptoms as well. 'S PARTICIPATION: x Actively participated in discussion [...] Prevention plan from Mar 23, 2023. 5. CBTI w/Sleep Clinic as scheduled 6. [place] [employer] as scheduled MENTAL STATUS EXAM: ORIENTATION AND [...] of SI. Safety plan developed on Mar. presents as [...] Treatment Will follow up with the monthly [place] is aware to contact the clinic or the 's Crisis Line with concerns prior to the next scheduled visit. Evidence-Based Psychotherapy Depressive Disorders Cognitive-Behavioral Therapy for Depression (CBT-D) In the course of the current session, CBT-D was discussed and offered. The patient declined this therapy at this time. Evidence-Based Psychotherapy Trauma and Stressor-Related Disorders Cognitive Processing Therapy (CPT) In the course of the current session, CPT was discussed and offered. The patient declined this therapy at this time. /alexandro HARDY CLINICIAL CURRICULUM COORDINATOR Signed: 08/28/2024 12:00 08/28/2024 ADDENDUM STATUS: COMPLETED MSA notified [place] was informed he could only schedule one apt at a time per [facility] scheduling recommendations during his apt w/this SW today and that it appears he scheduled another appt for October 10. [facility] notified to contact w/one of those appts to be c/l. /alexandro HARDY CLINICIAL CURRICULUM COORDINATOR Signed: 08/28/2024 16:04 ADDIS CLOUD [facility]
--- OUTSIDE RECORDS SUMMARY | 2024-08-29 09:30 | XMS_ITS | Encounter Summary ---
Author Name [facility] [place] [facility] [place] [facility] [place] Address [address] [place] [address] Care Team Providers Care Icing Maker Name Role Phone ROSARIO ESCALERA Primary [...] Type Encounter Description Reason Provider Source Aug 29, 2024 01:30 PM PSYTX W PT 45 MINUTES INTERVNTION BIOMED CARE IND ICD-10-CM F51.01 Primary insomnia NAA LOPEZ Encounter Template Text not used by [place] Assessments - Encounter Diagnoses This section includes the primary and secondary diagnoses documented for the Encounter. Date/Time Primary/Secondary Diagnosis Diagnosis Name Provider Source Aug 29, 2024 02:36 PM PRIMARY Primary insomnia NAA LOPEZ [facility] Aug 29, 2024 02:36 PM SECONDARY Major depressive disorder, recurrent, moderate NAA LOPEZ [facility] Aug 29, 2024 02:36 PM SECONDARY Other migraine, not intractable, without status migrainosus NAA LOPEZ [facility] Aug 29, 2024 02:36 PM SECONDARY Personality disorder, unspecified NAA LOPEZ [facility] Aug 29, 2024 02:36 PM SECONDARY Post-traumatic stress disorder, chronic JOHNNAA E [facility] Aug 29, 2024 02:36 PM SECONDARY Tobacco use JOHNNAA [facility] Plan of Treatment: Future Appointments (+ 6 months) and Future Tests (+/- 45 days) The Plan of Treatment section includes future care activities for the [facility] This section includes future appointments and future orders which are active, pending or scheduled. Future Appointments This section includes appointments that were scheduled to occur 6 months from the date of the Encounter, up to a maximum of 20 appointments. The data comes from all [facility]. Appointment Date/Time Appointment Type Appointme nt Facility Name Sep 03, 2024 01:00 PM AMBULATORY - PSYCHIATRY [facility] Sep 04, 2024 01:00 PM AMBULATORY - NEUROLOGY [facility] Sep 05, 2024 10:00 AM [facility] NONE [facility] Sep 25, 2024 01:00 PM AMBULATORY - SURGERY [facility] Oct 03, 2024 01:00 PM AMBULATORY - REHAB MEDICIN E [facility] October 21, 2024 03:00 PM AMBULATORY - PSYCHIATRY CL [facility] November 03, 2024 02:30 PM AMBULATORY - PSYCHIATRY CL [facility] November 04, 2024 02:30 PM AMBULATORY - SURGERY [facility] November 11, 2024 09:00 AM AMBULATORY - NONE [facility] November 13, 2024 02:00 PM AMBULATORY - NONE [facility] Nov 17, 2024 11:00 AM AMBULATORY - PSYCHIATRY CL [facility] Dec 01, 2024 08:30 AM AMBULATORY - PSYCHIATRY CL [facility] Dec 01, 2024 01:00 PM AMBULATORY - NONE [facility] Dec 03, 2024 03:00 PM AMBULATORY - NONE [facility] Dec 08, 2024 03:30 PM AMBULATORY - PSYCHIATRY CL [facility] Dec 11, 2024 11:00 AM AMBULATORY - NONE [facility] Dec 15, 2024 09:30 AM AMBULATORY - PSYCHIATRY [facility] Dec 15, 2024 09:45 AM AMBULATORY - NONE [facility] Dec 22, 2024 01:30 PM AMBULATORY - NONE [facility] Dec 24, 2024 02:30 PM AMBULATORY - SURGERY [facility] Lab Results: +/- 30 days of the [...] Type Comment Aug 27, 2024 02:35 PM [facility] VITAMIN D (TOTAL) SERUM Specimen Type: SERUM Comment: VITD One expert panel recommended a target range of 30-40 ng/mL. Ordering Provider: ROSARIO ESCALERA Report Released Date/Time: Jun 25, 2024 10:05 AM Reporting Lab: [address] [address] Performing Lab: [address] [address] VITAMIN D (TOTAL) 10 ng/mL L 30-60 Aug 27, 2024 02:35 PM [facility] LIPID PROFILE PLASMA Specimen Type: [...] Jun 25, 2024 03:09 PM Reporting Lab: [address] [address] Performing Lab: [address] [address] CHOLESTEROL 276 mg/dL H 0-199 LDL CHOLESTEROL 192 mg/dL H 0-99 HDL CHOLESTEROL 38 mg/dL L >40 TRIGLYCERIDE 469 mg/dL H 0-149 Aug 27, 2024 02:35 PM [facility] HEPATIC FUNCTION PANEL PLASMA Specimen [...] Jun 25, 2024 10:05 AM Reporting Lab: [address] [address] Performing Lab: [address] [address] ALBUMIN 5.0 g/dL H 3.5-4.8 ALKALINE PHOSPHATASE [...] AM VA-TOBACCO USE EVERY DAY [place] Tobacco Use History This section includes a history of the smoking, or tobacco-related health factors, that were collected on or before the date of the Encounter. The data comes from the [place] facility where the Encounter took place. Date/Time Smoking Status/Tobacco Use Comment F acility Jun 06, 2024 11:30 AM VA-TOBACCO USE ADVICE [facility] Jun 06, 2024 11:30 AM VA-TOBACCO USE ARTILLERY OFFICER NO [facility] Jun 06, 2024 11:30 AM VA-TOBACCO USE EVERY DAY CIGARET MANNY [facility] Jun 06, 2024 11:30 AM VA-TOBACCO USE EVERY DAY ENDS [facility] Jun 06, 2024 11:30 AM VA-TOBACCO USE EVERY DAY OTHER T YPE [facility] Jun 06, 2024 11:30 AM VA-TOBACCO USE MED NO [facility] Jun 19, 2023 10:00 AM TOBACCO FORMER USER MORE 12 LEONEL HS [facility] Advance Directives: All historical and [...] 22, 2023 ADVANCE DIRECTIVE DISCUSSION SABINA NAIR [facility] Pathology Reports: +/- 30 days of [...] DATE: SEP 22, 2024@11:35 AUTHOR: YVROSE KEBEDE COSIGNER: URGENCY: STATUS: COMPLETED $APHDR - - [...] Flow Cytometry RLLYMP Reflex report performed by [facility] Pathology and Laboratory [facility] [place], [address] [place], [place] [id number], specimen #[id number], electronically signed by Fadia Pizarro M.D. FLOW CYTOMETRY (Final result) INTERPRETATION There is no immunophenotypic evidence of involvement by a T-cell lymphoproliferative disorder in this limited sample. Correlation with the histopathologic and clinical findings is suggested. SEE COMPLETE REPORT(S) IN [employer] GROSS DESCRIPTION Specimen is received fresh for frozen section, labeled with the patient's name, medical record number and nasopharyngeal mass . It consists of 2 frey-white soft tissue fragments measuring 0.3 to 0.7 cm in greatest dimension. A portion of the specimen is submitted in RPMI and sent for flow cytometry at [facility]. The remainder of the specimen is submitted in 1 cassette. SUPPLEMENTARY REPORT(S): Supplementary Report Date: SEP 22, 2024 *+* SUPPLEMENTARY REPORT HAS BEEN ADDED/MODIFIED *+* (Added/Last released: Sep 22, 2024 11:19 Signed by YVROSE KEBEDE) Surgical Pathology report performed by [facility] Pathology and Laboratory [facility] [place], [address] [place] [address], specimen #[id number], electronically signed by Sarah Merritt M.D., Ph.D. FINAL DIAGNOSIS A. OUTSIDE MATERIALS RECEIVED FROM [facility], [place], [place] (EXTERNAL ID [id number], 09/05/2024): ADENOID BIOPSY: - REACTIVE LYMPHOID TISSUE, SEE COMMENT. SEE COMPLETE REPORT(S) IN [employer] /deanna/ YVROSE KEBEDE PATHOLOGIST Signed Sep 22, 2024@11:35 Performing Laboratory: Surgical Pathology Report Performed By: [facility] [CLIA# [id number]] [address] [place] [address] $FTR - - - - - - [...] - - MARION ZHENG STANDARD FORM 515 ID:[id number] SEX:M :1995 AGE: 29 LOC:[facility] PCP: Rosario Escalera DO /deanna/ YVROSE KEBEDE PATHOLOGIST Signed: 09/22/2024 11:35 YVROSE KEBEDE [facility] Sep 08, 2024 10:46 AM LR SURGICAL [...] - - $TEXT Submitted by: BHARATHI JOHNS DANETTE Date obtained: Sep 05, 2024 11:06 - [...] Flow Cytometry RLLYMP Reflex report performed by [facility], [facility] Pathology and Laboratory Medicine [place], [address] [place] [address], specimen #[id number], electronically signed by Fadia Pizarro M.D. FLOW [...] RPMI and sent for flow cytometry at [facility]. The remainder of the specimen is submitted in 1 cassette. PIERRE /deanna/ YVROSE KEBEDE PATHOLOGIST Signed Sep 08, 2024@10:46 Performing Laboratory: Surgical Pathology Report Performed By: [facility] [CLIA# [id number]] [address] [place] [address] $FTR - - - - - - [...] - - - - - - - BRITTNEYMARION Haji STANDARD FORM 515 ID:[id number] SEX:M :1995 AGE: 29 LOC:[facility] PCP: Rosario Escalera DO /deanna/ YVROSE KEBEDE PATHOLOGIST Signed: 09/08/2024 10:46 YVROSE KEBEDE [facility] Encounter Notes: All associated encounter notes This section contains the clinical notes associated to the Encounter. Date/Time Encounter Note(s) Provider Source Aug 29, 2024 08:16 AM MENTAL HEALTH NOTE : LOCAL TITLE: EVIDENCE BASED PSYCHOTHERAPY NOTE (T) STANDARD TITLE: MENTAL HEALTH NOTE DATE OF NOTE: AUG 29, 2024@08:16 ENTRY DATE: AUG 29, 2024@08:16:51 AUTHOR: NAA LOPEZ COSIGNER: URGENCY: STATUS: COMPLETED Evidence-Based Psychotherapy Sleep Disorders Cognitive-Behavioral Therapy for Insomnia (CBT-I) The patient continues to engage in CBT-I. Services delivered via TeleMentalHealth Video to Home Appointment: Telehealth Disclosure: Visit [...] emergencies, provider may initiate the call to injection moulding machine operator by calling [facility] [phone] [address] Veterans/ Crisis Line - Dial 988, press #1 [employer] Help Desk (NTTHD): [phone] or [phone] I am the Staff Provider. BEHAVIORAL SLEEP MEDICINE Cognitive Behavioral Therapy for Insomnia: Initial Treatment Phase DATE OF APPOINTMENT: 08/29/2024 LENGTH OF APPOINTMENT: 42 minutes MODALITY: Telemental Health PROVIDER: Dr. Naa Lopez (Clinical Health Psychologist) DIAGNOSES, per chart: Insomnia (SCT [id number]) - Primary insomnia (ICD-10-CM F51.01) (Primary) Chronic post-traumatic stress disorder (SCT [id number]) - Post-traumatic stress disorder, chronic (ICD-10-CM F43.12) Depression (SCT 63191333) - Major depressive disorder, single episode, unspecified (ICD-10-CM F32.9) Personality disorder (SCT 57591668) - Personality disorder, unspecified Nicotine use grief TYPE OF CARE PROVIDED: Behavioral Sleep Medicine [facility] appointment. Treatment session #3 SESSION FORMAT Video Telehealth Session SESSION LOCATION Other location-Sleep clinic This session was conducted through telehealth. The [place] consented to an individual appt via telehealth [...] clinical option for this patient. REFERRAL/BACKGROUND INFORMATION: [place] is a 28-year-old male with PTSD, depressive DO unspecified, nicotine use disorder,personality DO unspecified, and insomnia d/o. Currently connected with mental health care. Please see previous notes of this web content writer for further information. Check-in: Same -tired- adjusting to DLS per pharmacy note- stopped all rx 1 month ago, did not inform this web content writer sometimes woken by son, needs help w restroom still not vaping- reinforced memory terrible, did not read manual, apologetic --Sleep Diary: --[place] completed a sleep diary. --Diary variables averages: Recorded averages below cover 1 week. Naps: 12 minutes Bedtime: 23:13 Sleep onset latency: 27 minutes Number of awakenings: 0.7 Wake after sleep onset: 4 minutes Wake time: 8:19 Total sleep time: 6.5 hours Time in bed: 9.5 hours Sleep efficiency: 69% Sleep quality: 2.4 /5 --[place] reported no change in use of sleep medications or sleep aids but per med record he stopped all rx last month, did not disclose to this provider. Discussed today, he was apologetic, reports he did not realize it was relevant --[place]'s level of adherence since the last session was low. He completed a sleep log for an entire week. However he has not yet read over the treatment manual, not following TIB window SESSION CONTENT This session was part of the initial treatment phase of Cognitive Behavioral therapy for insomnia (CBT-I). The following occurred during the session: --Reviewed sleep diary and scoring and addressed any problems completing the sleep diary. --changed the prescribed bedtime and rise time in collaboration with the [place] as follows based on diary data: Prescribed bedtime: 1 am Prescribed rise time: 8:30 AM --Discussed sleep hygiene rules and the following specific recommendations applicable to the [place]: Avoid napping. Limit caffeine use introduced stimulus control, he spends many hours awake in bed ruminating, watching tv, on his phone Reiterated the importance of good adherence to benefit from treatment to include keeping his sleep log and reading the treatment manual. [place] was apologetic, reports he forgot again to read the manual again. RISK ASSESSMENT: No suicidal or homicidal ideation intent or plan endorsed or evidenced throughout the visit. was not judged to be in need of acute psychological care; low risk. aware of VCL and emergency resources. [place] is actively connected with mental health treatment [...] evident MH CLINICAL REMINDERS: None due HOMEWORK: [place] is to complete the following homework items between sessions: Complete sleep diary Read CBT insomnia manual up to session 4 Follow recommended bedtimes and rise times follow stimulus control RTC: 60 min [facility] appt for 09/04 at 1 PM Recommendations and plan outlined above were created in collaboration with the in a shared decision-making process considering the 's cultural background, values, goals, and treatment preferences. This note was dictated using [employer] speech to text software. Despite proofreading, bleach mixer errors may be present. Video to Home [...] emergencies, provider may initiate the call to injection moulding machine operator by calling [facility] [phone] [address] Veterans/ Crisis Line - Dial 988, press #1 [employer] Help Desk (NTTHD): [phone] or [phone] I am the Staff Provider. /deanna/ NAA LOPEZ CLINICAL PSYCHOLOGIST Signed: 08/29/2024 14:37 NAA LOPEZ [facility]
--- OUTSIDE RECORDS SUMMARY | 2024-09-03 09:00 | XMS_ITS | Encounter Summary ---
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 Date/Time Encounter Type Encounter Description Reason Provider Source Sep 03, 2024 01:00 PM PSYTX W PT 60 MINUTES INTERVNTION BIOMED CARE IND ICD-10-CM F51.01 Primary insomnia NAA LOPEZ Encounter Template Text not used by [place] Assessments - Encounter Diagnoses This section includes the primary and secondary diagnoses documented for the Encounter. Date/Time Primary/Secondary Diagnosis Diagnosis Name Provider Source Sep 03, 2024 02:27 PM PRIMARY Primary insomnia NAA LOPEZ [facility] Sep 03, 2024 02:27 PM SECONDARY Major depressive disorder, recurrent, moderate NAA LOPEZ [facility] Sep 03, 2024 02:27 PM SECONDARY Personality disorder, unspecified NAA LOPEZ [facility] Sep 03, 2024 02:27 PM SECONDARY Post-traumatic stress disorder, chronic NAA LOPEZ [facility] Sep 03, 2024 02:27 PM SECONDARY Tobacco use NAA LOPEZ [facility] Plan of Treatment: Future Appointments (+ 6 months) and Future Tests (+/- 45 days) The Plan of Treatment section includes future care activities for the [facility] This section includes future appointments and future orders which are active, pending or scheduled. Future Appointments This section includes appointments that were scheduled to occur 6 months from the date of the Encounter, up to a maximum of 20 appointments. The data comes from all [place] treatment facilities. Appointment Date/Time Appointment Type Appointme nt Facility Name Sep 04, 2024 01:00 PM AMBULATORY - NEUROLOGY [facility] Sep 05, 2024 10:00 AM AMBULATORY - NONE [facility] Sep 25, 2024 01:00 PM AMBULATORY - SURGERY [facility] Oct 03, 2024 01:00 PM AMBULATORY - REHAB MEDICIN E [facility] October 21, 2024 03:00 PM AMBULATORY - PSYCHIATRY [facility] November 03, 2024 02:30 PM AMBULATORY - PSYCHIATRY [facility] November 04, 2024 02:30 PM AMBULATORY - SURGERY [facility] November 11, 2024 09:00 AM AMBULATORY - NONE [facility] November 13, 2024 02:00 PM AMBULATORY - NONE [facility] Nov 17, 2024 11:00 AM AMBULATORY - PSYCHIATRY CL [facility] Dec 01, 2024 08:30 AM AMBULATORY - PSYCHIATRY CL [facility] Dec 01, 2024 01:00 PM AMBULATORY - NONE [facility] Dec 03, 2024 03:00 PM AMBULATORY - NONE [facility] Dec 08, 2024 03:30 PM AMBULATORY - PSYCHIATRY CL [facility] Dec 11, 2024 11:00 AM AMBULATORY - NONE [facility] Dec 15, 2024 09:30 AM AMBULATORY - PSYCHIATRY [facility] Dec 15, 2024 09:45 AM AMBULATORY - NONE [facility] Dec 22, 2024 01:30 PM AMBULATORY - NONE [facility] Dec 24, 2024 02:30 PM AMBULATORY - SURGERY [facility] Dec 30, 2024 01:00 PM AMBULATORY - PSYCHIATRY [facility] Active, Pending, and Scheduled Orders This section includes a listing of several types of active, pending, and scheduled orders, including clinic medications orders, diagnostic test orders, procedure orders and consult orders; where the start date of the order is 45 days before the date of the Encounter or 45 days after the date of theEncounter. The data comes from all [place] treatment facilities. Test Date/Time Test Type Test Details Facility Name October 18, 2024 12:00 AM Laboratory - Chemi stry Order SEMEN ANALYSIS (POST-VAS) QUALITATIVE SEMINAL FLUID SP [facility] Lab Results: +/- 30 days of the encounter This section includes the Chemistry and Hematology Lab Results on record with [place] for the patient. Radiology Reports and Pathology Reports are provided separately, in subsequent sections. Lab Results This section contains the Chemistry/Hematology Results that were resulted 30 days before or 30 daysafter the date of the Encounter. Date/Time Source Result Type Result - Unit Interpretation Reference Range Specimen Type Comment Aug 27, 2024 02:35 PM [facility] VITAMIN D (TOTAL) SERUM Specimen Type: SERUM Comment: VITD One expert panel recommended a target range of 30-40 ng/mL. Ordering Provider: ROSARIO ESCALERA Report Released Date/Time: Jun 25, 2024 10:05 AM Reporting Lab: [address] [address] Performing Lab: [address] [address] VITAMIN D (TOTAL) 10 ng/mL L 30-60 Aug 27, 2024 02:35 PM [facility] LIPID PROFILE PLASMA Specimen Type: PLASMA Comment: [...] Jun 25, 2024 03:09 PM Reporting Lab: [address] [address] Performing Lab: [address] [address] CHOLESTEROL 276 mg/dL H 0-199 LDL CHOLESTEROL 192 mg/dL H 0-99 HDL CHOLESTEROL 38 mg/dL L >40 TRIGLYCERIDE 469 mg/dL H 0-149 Aug 27, 2024 02:35 PM [facility] HEPATIC FUNCTION PANEL PLASMA Specimen Type: PLASMA [...] Jun 25, 2024 10:05 AM Reporting Lab: [address] [address] Performing Lab: [address] [address] ALBUMIN 5.0 g/dL H 3.5-4.8 ALKALINE PHOSPHATASE 72 U/L 40-150 ALT/SGPT 27 U/L 0-55 AST/SGOT 25 U/L 10-40 BILIRUBIN,DIRECT 0.1 mg/dL 0.0-0.5 PROTEIN, TOTAL 8.1 g/dL 6.4-8.3 BILIRUBIN, TOTAL 0.4 mg/dL 0.2-1.2 Social History: Smoking Status (Most current) and Tobacco Use (All prior to encounter date) This section includes the most current, and the historical, smoking and tobacco- related health factors from the [facility] where the Encounter took place. Current Smoking Status This section includes the most current smoking, or tobacco-related health factor, from the [place] facility where the Encounter took place. Date/Time Current Smoking Status Comment Facil ity Jun 06, 2024 11:30 AM VA-TOBACCO USE EVERY DAY CIG[facility]ET [facility] Tobacco Use History This section includes a history of the smoking, or tobacco-related health factors, that were collected on or before the date of the Encounter. The data comes from the [place] facility where the Encounter took place. 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 Jun 19, 2023 10:00 AM TOBACCO FORMER USER MORE 12 [facility] Advance Directives: All historical and current Section Date Range: From patient's date of to the date document was created. This section includes ALL of a patient's completed or amended [place] Advance and Rescinded Directives. The entries below indicate that a directive exists for the patient, but an actual copy is not included with this document. The data comes from all [facility]. Date Advance Directives Provider Source October 22, 2023 ADVANCE DIRECTIVE DISCUSSION SABINA NAIR [facility] Pathology Reports: +/- 30 days of the [...] the Encounter. The data comes from all [place] treatment facilities. Date/Time Pathology Report Provider Source Sep 22, 2024 11:35 AM LR SURGICAL PATHOL OGDebbie REPORT: LOCAL TITLE: LR SURGICAL PATHOLOGY REPORT [...] Flow Cytometry RLLYMP Reflex report performed by [facility] [place], [address] [place], [place] [address], specimen #[id number], electronically signed by Fadia Pizarro M.D. FLOW CYTOMETRY (Final result) INTERPRETATION There is no immunophenotypic evidence of involvement by a T-cell lymphoproliferative disorder in this limited sample. Correlation with the histopathologic and clinical findings is suggested. SEE COMPLETE REPORT(S) IN [employer] [facility] GROSS DESCRIPTION Specimen is received fresh for frozen section, labeled with the patient's name, medical record number and nasopharyngeal mass . It consists of 2 frey-white soft tissue fragments measuring 0.3 to 0.7 cm in greatest dimension. A portion of the specimen is submitted in RPMI and sent for flow cytometry at [facility]. The remainder of the specimen is submitted in 1 cassette. SUPPLEMENTARY REPORT(S): Supplementary Report Date: SEP 22, 2024 *+* SUPPLEMENTARY REPORT HAS BEEN ADDED/MODIFIED *+* (Added/Last released: Sep 22, 2024 11:19 Signed by YVROSE KEBEDE) Surgical Pathology report performed by [facility], [facility] and [facility] [place], [address] [place], [place] [address], specimen #[id number], electronically signed by Sarah Merritt M.D., Ph.D. FINAL DIAGNOSIS A. OUTSIDE MATERIALS RECEIVED FROM [facility] [place], [place] (EXTERNAL ID [id number], 09/05/2024): ADENOID BIOPSY: - REACTIVE LYMPHOID TISSUE, SEE COMMENT. SEE COMPLETE REPORT(S) IN [employer] [facility] /deanna/ YVROSE KEBEDE PATHOLOGIST Signed Sep 22, 2024@11:35 Performing Laboratory: Surgical Pathology Report Performed By: [facility] [CLIA# [id number]] [address] [place] [address] $FTR - - - - - - - - - - - - - - - - - - - - - - - - - - - - - - - - - - - - - - - - (End of report) YVROSE KEBEDE [facility] Date Sep 08, 2024 - - - - - - - - - - - - - - - - - - - - - - - - - - - - - - - - - - - - - - - - MARION ZHENG STANDARD FORM 515 ID:[id number] SEX:M :1995 AGE: 29 LOC:[facility] PCP: Rosario Escalera DO /deanna/ YVROSE KEBEDE PATHOLOGIST Signed: 09/22/2024 11:35 YVROSE KEBEDE [facility] Sep 08, 2024 10:46 AM LR SURGICAL [...] Flow Cytometry RLLYMP Reflex report performed by [facility], [facility] [place], [address] [place], [place] [address], specimen #[id number], electronically signed by Fadia Pizarro M.D. FLOW [...] RPMI and sent for flow cytometry at [facility]. The remainder of the specimen is submitted in 1 cassette. PIERRE gonzalez/ YVROSE KEBEDE PATHOLOGIST Signed Sep 08, 2024@10:46 Performing Laboratory: Surgical Pathology Report Performed By: [facility] [CLIA# [id number]] [address] [place] [address] $FTR - - - - - - - - - - - - - - - - - - - - - - - - - - - - - - - - - - - - - - - - (End of report) YVROSE KEBEDE [facility] Date Sep 08, 2024 - - - - - - - - - - - - - - - - - - - - - - - - - - - - - - - - - - - - - - - - MARION ZHENG STANDARD FORM 515 ID:[id number] SEX:M :1995 AGE: 29 LOC:[facility] PCP: DO chirag Lara PATHOLOGIST Signed: 09/08/2024 10:46 YVROSE KEBEDE [facility] Encounter Notes: All associated encounter notes This section contains the clinical notes associated to the Encounter. Date/Time Encounter Note(s) Provider Source Sep 03, 2024 11:20 AM MENTAL HEALTH NOTE : LOCAL TITLE: EVIDENCE BASED PSYCHOTHERAPY NOTE (T) STANDARD TITLE: MENTAL HEALTH NOTE DATE OF NOTE: SEP 03, 2024@11:20 ENTRY DATE: SEP 03, 2024@11:20:14 AUTHOR: NAA LPOEZ COSIGNER: URGENCY: STATUS: COMPLETED Evidence-Based Psychotherapy Sleep [...] emergencies, provider may initiate the call to data analytics architect by calling [facility] [facility] [phone] [address] Veterans/ Crisis Line - Dial 988, press #1 [facility] Help Desk ([facility]): [phone] or [phone] VERBAL AND VISUAL VALIDATION: Documentation: Verbal and visual validation confirmation completed: N/A I am the Staff Provider. BEHAVIORAL SLEEP MEDICINE Cognitive Behavioral Therapy for Insomnia: Middle Treatment Phase DATE OF APPOINTMENT: 09/03/2024 LENGTH OF APPOINTMENT: 60 minutes MODALITY: Telemental Health PROVIDER: Dr. Naa Lopez (Clinical Health Psychologist) DIAGNOSES, per chart: Insomnia (SCT [id number]) - Primary insomnia (ICD-10-CM F51.01) (Primary) Chronic post-traumatic stress disorder (SCT [id number]) - Post-traumatic stress disorder, chronic (ICD-10-CM F43.12) Depression (SCT 19351758) - Major depressive disorder, single episode, unspecified (ICD-10-CM F32.9) Personality disorder (SCT 56042353) - Personality disorder, unspecified Nicotine use grief TYPE OF CARE PROVIDED: Behavioral Sleep Medicine [facility] appointment. Treatment session #4 SESSION FORMAT Video Telehealth Session SESSION LOCATION [...] to future care, services, or benefits. The [place] was present at home for this session, and their address and phone number were reviewed during this session and confirmed as accurate. Telehealth deemed to be a safe and appropriate clinical option for this patient. REFERRAL/BACKGROUND INFORMATION: [place] is a 28-year-old male with PTSD, depressive DO unspecified, nicotine use disorder,personality DO unspecified, and insomnia d/o. Currently connected with mental health care. Please see previous notes of this repairer typewriter for further information. Check-in: been doing ok, got a puppy which has disrupted sleep, not potty trained --Sleep Diary: --[place] completed a sleep diary. --Diary variables averages: Recorded averages below cover 1 week. Naps: 0 minutes Bedtime: 23:11 Sleep onset latency: 16 minutes Number of awakenings: 2.4 Wake after sleep onset: 18 minutes Wake time: 7:24 Total sleep time: 7.6 hours Time in bed: 8.2 hours Sleep efficiency: 93% Sleep quality: 3.2 /5 -- reported no change in use of sleep medications or sleep aids. --'s level of adherence since the last session was medium. He completed a sleep log for an entire week. He has been generally following stimulus control guidelines and finally read part of his treatment manual. He struggles to follow the time in bed window but despite this his statistics are still markedly improved. SESSION CONTENT This session was part of the middle treatment phase of Cognitive Behavioral therapy for insomnia (CBT-I). The following occurred during the session: --Reviewed sleep diary and scoring and addressed any problems completing the sleep diary. Lots of positive reinforcement given for veterans improved adherence and consequently the improved sleep parameters --changed the prescribed bedtime and rise time in collaboration with the [place] as follows based on diary data: Prescribed bedtime: 11:15 PM prescribed rise time: 730 AM --Discussed sleep hygiene rules and the following specific recommendations applicable to the [place]: Avoid napping. Limit caffeine use Discussed educational components of the treatment manual and answered any questions the had has not been sleeping in his bed, in the basement with the puppy, other animals adjusting wakng up more but more rested in his new sleeping arrangements preparing for surgery this Sunday stopped going on computer in evening discussed hypervigilance and not feeling like he is getting restful sleep Reiterated the importance of good adherence to benefit from treatment RISK ASSESSMENT: No suicidal or homicidal ideation intent or plan endorsed or evidenced throughout the visit. [place] was not judged to be in need of acute psychological care; low risk. aware of [facility] and emergency resources. [place] is actively connected with mental health treatment [...] evident MH CLINICAL REMINDERS: None due HOMEWORK: is to complete the following homework items between sessions: Complete sleep diary Read CBT insomnia manual up to session 6 Follow recommended bedtimes and rise times follow stimulus control guidelines RTC: 2 weeks so he has time to recover from surgery- 60 min [facility] appt for 09/16 tues at 9 am Recommendations and plan outlined above were created in collaboration with the in a shared decision-making process considering the 's cultural background, values, goals, and treatment preferences. This note was dictated using [employer] speech to text software. Despite proofreading, electronic news gathering camera person errors may be present. /deanna/ NAA LOPEZ CLINICAL PSYCHOLOGIST Signed: 09/03/2024 14:28 NAA LOPEZ [facility]
--- OUTSIDE RECORDS SUMMARY | 2024-09-03 11:00 | XMS_ITS ---
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 Date/Time Primary/Secondary Diagnosis Diagnosis Name Provider Source Sep 03, 2024 04:10 PM PRIMARY Spiritual or scientologist counseling BLADIMIR VENCES [facility] Plan of Treatment: Future Appointments (+ 6 months) and Future Tests (+/- 45 days) The Plan of Treatment section includes future care activities for the patient from all [place] treatmentfacilities. This section includes future appointments and future orders which are active, pending or scheduled. Future Appointments This section includes appointments that were scheduled to occur 6 months from the date of the Encounter, up to a maximum of 20 appointments. The data comes from all [facility]. Appointment Date/Time Appointment Type Appointme nt Facility Name Sep 04, 2024 01:00 PM AMBULATORY - NEUROLOGY [facility] Sep 05, 2024 10:00 AM AMBULATORY - NONE [facility] Sep 25, 2024 01:00 PM AMBULATORY - SURGERY [facility] Oct 03, 2024 01:00 PM AMBULATORY - REHAB MEDICIN E [facility] October 21, 2024 03:00 PM AMBULATORY - PSYCHIATRY CL [facility] November 03, 2024 02:30 PM AMBULATORY - PSYCHIATRY CL [facility] November 04, 2024 02:30 PM AMBULATORY - SURGERY [facility] November 11, 2024 09:00 AM AMBULATORY - NONE [facility] November 13, 2024 02:00 PM AMBULATORY - NONE [facility] Nov 17, 2024 11:00 AM AMBULATORY - PSYCHIATRY CL [facility] Dec 01, 2024 08:30 AM AMBULATORY - PSYCHIATRY CL [facility] Dec 01, 2024 01:00 PM AMBULATORY - NONE [facility] Dec 03, 2024 03:00 PM AMBULATORY - NONE [facility] Dec 08, 2024 03:30 PM AMBULATORY - PSYCHIATRY CL [facility] Dec 11, 2024 11:00 AM AMBULATORY - NONE [facility] Dec 15, 2024 09:30 AM AMBULATORY - PSYCHIATRY CL [facility] Dec 15, 2024 09:45 AM AMBULATORY - NONE [facility] Dec 22, 2024 01:30 PM AMBULATORY - NONE [facility] Dec 24, 2024 02:30 PM AMBULATORY - SURGERY [facility] Dec 30, 2024 01:00 PM AMBULATORY - PSYCHIATRY CL [facility] Active, Pending, and Scheduled Orders This section includes a listing of several types of active, pending, and scheduled orders, including clinic medications orders, diagnostic test orders, procedure orders and consult orders; where the start date of the order is 45 days before the date of the Encounter or 45 days after the date of theEncounter. The data comes from all [facility]. Test Date/Time Test Type Test Details Facility Name October 18, 2024 12:00 AM Laboratory - Chemi delbert Order SEMEN ANALYSIS (POST-VAS) QUALITATIVE SEMINAL FLUID SP [facility] Lab Results: +/- 30 days of [...] Aug 27, 2024 02:35 PM [facility] VITAMIN D (TOTAL) SERUM Specimen Type: SERUM Comment: VITD One expert panel recommended a target range of 30-40 ng/mL. Ordering Provider: ROSARIO ESCALERA Report Released Date/Time: Jun 25, 2024 10:05 AM Reporting Lab: [address] [address] Performing Lab: [address] [address] VITAMIN D (TOTAL) 10 ng/mL L 30-60 Aug 27, 2024 02:35 PM [facility] HEPATIC FUNCTION PANEL PLASMA Specimen Type: [...] Jun 25, 2024 10:05 AM Reporting Lab: [address] [address] Performing Lab: [address] [address] ALBUMIN 5.0 g/dL H 3.5-4.8 ALKALINE PHOSPHATASE 72 U/L 40-150 ALT/SGPT 27 U/L 0-55 AST/SGOT 25 U/L 10-40 BILIRUBIN,DIRECT 0.1 mg/dL 0.0-0.5 PROTEIN, TOTAL 8.1 g/dL 6.4-8.3 BILIRUBIN, TOTAL 0.4 mg/dL 0.2-1.2 Aug 27, 2024 02:35 PM [facility] LIPID PROFILE PLASMA Specimen Type: PLASMA [...] Jun 25, 2024 03:09 PM Reporting Lab: [address] [address] Performing Lab: [address] [address] CHOLESTEROL 276 mg/dL H 0-199 LDL CHOLESTEROL [...] AM VA-TOBACCO USE EVERY DAY [place] [facility] Tobacco Use History This section includes a history of the smoking, or tobacco-related health factors, that were collected on or before the date of the Encounter. The data comes from the [place] facility where the Encounter took place. Date/Time Smoking Status/Tobacco Use Comment F acility Jun 06, 2024 11:30 AM VA-TOBACCO USE ADVICE [facility] Jun 06, 2024 11:30 AM VA-TOBACCO USE PHP LAMP DEVELOPER NO [facility] Jun 06, 2024 11:30 AM VA-TOBACCO USE EVERY DAY CIGARET MANNY [facility] Jun 06, 2024 11:30 AM VA-TOBACCO USE EVERY DAY ENDS [facility] Jun 06, 2024 11:30 AM VA-TOBACCO USE EVERY DAY OTHER T YPE [facility] Jun 06, 2024 11:30 AM VA-TOBACCO USE MED NO [facility] Jun 19, 2023 10:00 AM TOBACCO FORMER USER MORE 12 LEONEL HS [facility] Advance Directives: All historical and current [...] 22, 2023 ADVANCE DIRECTIVE DISCUSSION SABINA NAIR [facility] Pathology Reports: +/- 30 days of [...] RLLYMP Reflex report performed by [facility] [place], [address] [place], [place] [id number], specimen #[id number], electronically signed by Fadia Pizarro M.D. FLOW CYTOMETRY (Final result) INTERPRETATION There is no immunophenotypic evidence of involvement by a T-cell lymphoproliferative disorder in this limited sample. Correlation with the histopathologic and clinical findings is suggested. SEE COMPLETE REPORT(S) IN Leondra music GROSS DESCRIPTION Specimen is received fresh for frozen section, labeled with the patient's name, medical record number and nasopharyngeal mass . It consists of 2 frey-white soft tissue fragments measuring 0.3 to 0.7 cm in greatest dimension. A portion of the specimen is submitted in RPMI and sent for flow cytometry at [facility] [place]. The remainder of the specimen is submitted in 1 cassette. SUPPLEMENTARY REPORT(S): Supplementary Report Date: SEP 22, 2024 *+* SUPPLEMENTARY REPORT HAS BEEN ADDED/MODIFIED *+* (Added/Last released: Sep 22, 2024 11:19 Signed by YVROSE KEBEDE) Surgical Pathology report performed by [facility] [place], [address] [place] [address], specimen #[id number], electronically signed by Sarah Merritt M.D., Ph.D. FINAL DIAGNOSIS A. OUTSIDE MATERIALS RECEIVED FROM [facility], [place], [place] (EXTERNAL ID [id number], 09/05/2024): ADENOID BIOPSY: - REACTIVE LYMPHOID TISSUE, SEE COMMENT. SEE COMPLETE REPORT(S) IN Leondra music /deanna/ YVROSE KEBEDE PATHOLOGIST Signed Sep 22, 2024@11:35 Performing Laboratory: Surgical Pathology Report Performed By: [facility] [CLIA# [id number]] [address] [place] [address] $FTR - - - - - - [...] - - MARION ZHENG STANDARD FORM 515 ID:[id number] SEX:M :1995 AGE: 29 LOC:[facility] PCP: Rosario Escalera DO /deanna/ YVROSE KEBEDE PATHOLOGIST Signed: 09/22/2024 11:35 YVROSE KEBEDE [facility] Sep 08, 2024 10:46 AM LR SURGICAL PATHOL OGY REPORT: LOCAL TITLE: LR SURGICAL PATHOLOGY REPORT STANDARD TITLE: PATHOLOGY REPORT DATE OF NOTE: SEP 08, 2024@10:46 ENTRY DATE: SEP 08, 2024@10:46 AUTHOR: VYROSE KEBEDE EXP COSIGNER: URGENCY: STATUS: COMPLETED $APHDR [...] Flow Cytometry RLLYMP Reflex report performed by [facility] [place], [facility] [place], [address] [place] [address], specimen #[id number], electronically signed by Fadia Pizarro M.D. FLOW [...] RPMI and sent for flow cytometry at [facility] [place]. The remainder of the specimen is submitted in 1 cassette. PIERRE /deanna/ YVROSE KEBEDE PATHOLOGIST Signed Sep 08, 2024@10:46 Performing Laboratory: Surgical Pathology Report Performed By: [facility] [CLIA# [id number]] [address] [place] [address] $FTR - - - - - - [...] - - MARION ZHENG STANDARD FORM 515 ID:[id number] SEX:M :1995 AGE: 29 LOC:[facility] PCP: Rosario Escalera DO /deanna/ YVROSE KEBEDE PATHOLOGIST Signed: 09/08/2024 10:46 YVROSE KEBEDE [facility] Encounter Notes: All associated encounter notes This section contains the clinical notes associated to the Encounter. Date/Time Encounter Note(s) Provider Source Sep 03, 2024 03:00 PM PASTORAL CARE NOTE : LOCAL TITLE: ETCHER MACHINE NOTE (T) STANDARD TITLE: PASTORAL CARE NOTE DATE OF NOTE: SEP 03, 2024@15:00 ENTRY DATE: SEP 03, 2024@16:00:34 AUTHOR: BLADIMIR VENCES EXP COSIGNER: URGENCY: STATUS: COMPLETED logged into [facility] for individual grief support appointment and was open/receptive. focused on his excitement of having his puppy (Sweetie, 9 weeks old). explored the joys and stressors of having had her for a few days. Lorado also expressed feeling good about a topic/structure in working with son Shoaib for engaging the dog safely & seeing son's growth. Lorado named a more normal (pablo) sleep schedule due to the exhaustion of working with the dog's schedule. expressed frustration with housemates that have various opinions about dog training & some unsolicited comments about how to work with his dog. minimized this providers summary of the positive emotions shared & noted his challenge to accept such positive words (ex. lina, pride in self, trusting self to train dog) Lorado became quiet, opened mouth to speak...but declined (2Xs). was receptive to provider asking what wishes to share but hesitates to explore. Lorado exhibited this same body language last visit. Lorado stated he was not ready & didn't want to discuss anything more but was working on it; would like to schedule next visit. Interventions: presence, active listening, reflective questions, meaning making (home, dog, painting grayson), facilitated story sharing, encouragement, validation, support. Plan: requested appointment by [facility] for 09/26/24 @ 3pm. expressed gratitude. /deanna/ CHAPLAIN BLADIMIR CARLIN Signed: 09/03/2024 16:11 BLADIMIR VENCES [facility]
--- OUTSIDE RECORDS SUMMARY | 2024-09-04 09:00 | XMS_ITS | Encounter Summary ---
Author Name [facility] [place] [facility] [place] Organization [facility] [place] Address [address] [place] [address] Care Team Providers [employer] Name Role Phone ROSARIO ESCALERA Primary Care [...] Type Encounter Description Reason Provider Source Sep 04, 2024 01:00 PM OFFICE O/P EST HI 40 MIN NEUROLOGY ICD-10-CM G43.809 Other migraine, not intractable, without status migrainosus KINA IZQUIERDO Sonya Encounter Template Text not used by [place] Assessments - Encounter Diagnoses This section includes the primary and secondary diagnoses documented for the Encounter. Date/Time Primary/Secondary Diagnosis Diagnosis Name Provider Source Sep 05, 2024 05:20 PM PRIMARY Other migraine, not intractable, without status migrainosus KINA IZQUIERDO [facility] Sep 05, 2024 05:20 PM SECONDARY Major depressive disorder, recurrent, moderate IKNA IZQUIERDO [facility] Plan of Treatment: Future Appointments (+ 6 months) and Future Tests (+/- 45 days) The Plan of Treatment section includes future care activities for the patient from [facility] [place] [facility]. This section includes future appointments and future orders which are active, pending or scheduled. Future Appointments This section includes appointments that were scheduled to occur 6 months from the date of the Encounter, up to a maximum of 20 appointments. The data comes from all [place] treatment facilities. Appointment Date/Time Appointment Type Appointme nt Facility Name Sep 05, 2024 10:00 AM AMBULATORY - NONE [facility] Sep 25, 2024 01:00 PM AMBULATORY - SURGERY [facility] Oct 03, 2024 01:00 PM AMBULATORY - REHAB MEDICIN E [facility] October 21, 2024 03:00 PM AMBULATORY - PSYCHIATRY CL [facility] November 03, 2024 02:30 PM AMBULATORY - PSYCHIATRY CL [facility] November 04, 2024 02:30 PM AMBULATORY - SURGERY [facility] November 11, 2024 09:00 AM AMBULATORY - NONE [facility] November 13, 2024 02:00 PM AMBULATORY - NONE [facility] Nov 17, 2024 11:00 AM AMBULATORY - PSYCHIATRY CL [facility] Dec 01, 2024 08:30 AM AMBULATORY - PSYCHIATRY CL [facility] Dec 01, 2024 01:00 PM AMBULATORY - NONE [facility] Dec 03, 2024 03:00 PM AMBULATORY - NONE [facility] Dec 08, 2024 03:30 PM AMBULATORY - PSYCHIATRY CL [facility] Dec 11, 2024 11:00 AM AMBULATORY - NONE [facility] Dec 15, 2024 09:30 AM AMBULATORY - PSYCHIATRY CL [facility] Dec 15, 2024 09:45 AM AMBULATORY - NONE [facility] Dec 22, 2024 01:30 PM AMBULATORY - NONE [facility] Dec 24, 2024 02:30 PM AMBULATORY - SURGERY [facility] Dec 30, 2024 01:00 PM AMBULATORY - PSYCHIATRY CL [facility] Jan 20, 2025 09:00 AM AMBULATORY - NONE [facility] Active, Pending, and Scheduled Orders This section includes a listing of several types of active, pending, and scheduled orders, including clinic medications orders, diagnostic test orders, procedure orders and consult orders; where the start date of the order is 45 days before the date of the Encounter or 45 days after the date of theEncount. The data comes from all [place] treatment facilities. Test Date/Time Test Type Test Details Facility Name October 18, 2024 12:00 AM Laboratory - Chemi delbert Order SEMEN ANALYSIS (POST-VAS) QUALITATIVE SEMINAL FLUID SP [facility] Lab Results: +/- 30 days of [...] Type Comment Aug 27, 2024 02:35 PM [facility] VITAMIN D (TOTAL) SERUM Specimen Type: SERUM Comment: VITD One expert panel recommended a target range of 30-40 ng/mL. Ordering Provider: ROSARIO ESCALERA Report Released Date/Time: Jun 25, 2024 10:05 AM Reporting Lab: [address] [id number] Performing Lab: [address] [address] VITAMIN D (TOTAL) 10 ng/mL L 30-60 Aug 27, 2024 02:35 PM [facility] LIPID PROFILE PLASMA Specimen Type: PLASMA [...] Jun 25, 2024 03:09 PM Reporting Lab: [address] [id number] Performing Lab: [address] [address] CHOLESTEROL 276 mg/dL H 0-199 LDL CHOLESTEROL 192 mg/dL H 0-99 HDL CHOLESTEROL 38 mg/dL L >40 TRIGLYCERIDE 469 mg/dL H 0-149 Aug 27, 2024 02:35 PM [facility] HEPATIC FUNCTION PANEL PLASMA Specimen Type: [...] Jun 25, 2024 10:05 AM Reporting Lab: [place] [id number] [facility] [address] Performing Lab: [address] [address] ALBUMIN 5.0 g/dL H 3.5-4.8 ALKALINE PHOSPHATASE [...] Pain Height Weight Body Mass Index Source Sep 04, 2024 12:39 PM 97.6 75 105/68 18 96 1 173 [facility] Social History: Smoking Status (Most current) [...] 11:30 AM VA-TOBACCO USE EVERY DAY CIGARET [facility] Tobacco Use History This section includes a history of the smoking, or tobacco-related health factors, that were collected on or before the date of the Encounter. The data comes from the [place] facility where the Encounter took place. 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 This section includes ALL of a patient's completed or amended [place] Advance and Rescinded Directives. The entries below indicate that a directive exists for the patient, but an actual copy is not included with this document. The data comes from all [facility]. Date Advance Directives Provider Source October 22, 2023 ADVANCE DIRECTIVE DISCUSSION SABINA NAIR [facility] Pathology Reports: +/- 30 days of [...] - - - $TEXT Submitted by: BHARATHI COPPOLA Date obtained: Sep 05, 2024 11:06 - [...] - POSTOPERATIVE DIAGNOSIS: HYPERTROPHIC ADENOIDS Surgeon/physician: BHARATHI COPPOLA Current Surgeon: Eugenia Ruffin Attending Surgeon: Bharathi Coppola =-=-=-=-=-=-=-=-=-=-=-=-=-=-=-=-=-=-=- =-=-=-=-=-=-=-=-=-=-=-=-=-=-=-=-=-=-=- =-= - - - - [...] Flow Cytometry RLLYMP Reflex report performed by [facility] and [facility] [place], [address] [place], [place] [id number], specimen #[id number], electronically signed by Fadia Pizarro M.D. FLOW [...] RPMI and sent for flow cytometry at [facility]. The remainder of the specimen is submitted in 1 cassette. SUPPLEMENTARY REPORT(S): Supplementary Report Date: SEP 22, 2024 *+* SUPPLEMENTARY REPORT HAS BEEN ADDED/MODIFIED *+* (Added/Last released: Sep 22, 2024 11:19 Signed by YVROSE KEBEDE) Surgical Pathology report performed by [facility] and [facility] [place], [address] [place], [place] [id number], specimen #[id number], electronically signed by Sarah Merritt M.D., Ph.D. FINAL DIAGNOSIS A. OUTSIDE MATERIALS RECEIVED FROM [facility], [place], [place] (EXTERNAL ID [id number], 09/05/2024): ADENOID BIOPSY: - REACTIVE LYMPHOID TISSUE, SEE COMMENT. SEE COMPLETE REPORT(S) IN [place] /deanna/ YVROSE KEBEDE PATHOLOGIST Signed Sep 22, 2024@11:35 Performing Laboratory: Surgical Pathology Report Performed By: [facility] [CLIA# [id number]] [address] [place] [address] $FTR - - - - - - [...] - - MARION ZHENG STANDARD FORM 515 ID:[id number] SEX:M :1995 AGE: 29 LOC:[facility] PCP: Rosario Escalera DO /deanna/ YVROSE KEBEDE PATHOLOGIST Signed: 09/22/2024 11:35 YVROSE KEBEDE [facility] Sep 08, 2024 10:46 AM LR [...] - - - $TEXT Submitted by: BHARATHI COPPOLA Date obtained: Sep 05, 2024 11:06 - [...] - POSTOPERATIVE DIAGNOSIS: HYPERTROPHIC ADENOIDS Surgeon/physician: BHARATHI COPPOLA Current Surgeon: Eugenia Ruffin Attending Surgeon: Bharathi Coppola =-=-=-=-=-=-=-=-=-=-=-=-=-=-=-=-=-=-=- =-=-=-=-=-=-=-=-=-=-=-=-=-=-=-=-=-=-=- =-= - - - - [...] Flow Cytometry RLLYMP Reflex report performed by [facility], Abad Mcc[facility] Pathology and Laboratory Medicine [place], [address] [place], [place] [id number], specimen #[id number], electronically signed by Fadia Pizarro M.D. FLOW [...] RPMI and sent for flow cytometry at [facility]. The remainder of the specimen is submitted in 1 cassette. PIERRE /deanna/ YVROSE KEBEDE PATHOLOGIST Signed Sep 08, 2024@10:46 Performing Laboratory: Surgical Pathology Report Performed By: [facility] [CLIA# [id number]] [address] [place] [address] $FTR - - - - - - [...] - - MARION ZHENG STANDARD FORM 515 ID:[id number] SEX:M :1995 AGE: 29 LOC:[facility] PCP: Rosario Escalera DO /deanna/ YVROSE KEBEDE PATHOLOGIST Signed: 09/08/2024 10:46 YVROSE KEBEDE [facility] Encounter Notes: All associated encounter notes This section contains the clinical notes associated to the Encounter. Date/Time Encounter Note(s) Provider Source Sep 04, 2024 01:04 PM NEUROLOGY OUTPATIE NT NOTE: LOCAL TITLE: NEUROLOGY OUTPATIENT CLINIC NOTE STANDARD TITLE: NEUROLOGY OUTPATIENT NOTE DATE OF NOTE: SEP 04, 2024@13:04 ENTRY DATE: SEP 04, 2024@13:04:29 AUTHOR: KINA IZQUIERDOIGNER: URGENCY: STATUS: COMPLETED I am the attending physician. CC <planned f/u for migraines> HPI: 28 yo RH man, originally referred from primary care 12/27/23 for headache, returns for planned f/u. Please see original consultation note of 02/14/24 for detailed history. Briefly, we had little chart data about his headache problem. In interview, he dated his headache problem to his service. (He's currently 30% SC for migraines). He described 3 headache types: 1) standard headache (later named on his diary daily headache ): This is a frontal circlet, that when bad expands to involve temples and then entire head. This headaches is steady, dull, and of relatively mild severity such that he can continue all his activities. The headache is present continuously; he is never free of this headache. 2) migraine : This represents an episodic increase above and beyond his continuous standard daily headache. It starts at bilateral temples and spreads to a large circumferential circlet, focused more toward the back of head. Pain is steady (non-pulsating), sharp. Duration is hours. Frequency at time of initial encounter was once/month. There is probably no aura. There is associated photophobia, phonophobia, and nausea without vomiting. Pain is incapacitating. No identified triggers. Only alleviation is lying in a dark room. 3) bullseye : Mid-frontal, sharp, pulsating pain. At the initial visit he reported it would be heralded by a period of congestion (days) and associated with post-nasal drip. Because of the initial description of the association with headache, I initially named this the sinus headache (I recall adopting the patient's own term), but in the second encounter he downplayed this association, so I renamed it the bullseye headache. Duration is 1-2 days. I neglected to query/document the frequency at the initial encounter, but in any case, at the second encounter he had difficulty answering that question. His headache risks included lifelong susceptibilty to motion sickness, a mother and sister with headaches, and excessive caffeine intake. In terms of abortive and prophylactic medications, he'd never been on a triptan or a prophylactic. Neurological examination was unremarkable. He had some psychomotor agitation c/w his [...] argued were probably unrelated to his headache. Between the first encounter of 12/27/23 and the second encounter of 05/08/24, he saw Behavioral Medicine and they gave him some lifestyle recommendations, but BM didn't think he was enthusiastic about acting on those recommendations. He was started on Elavil by Psych 04/29/24 for insomnia, with intended concurrent treatment with that and sertraline. It initially raised the possibility that any improvement in headaches going forward could reflect an effect of Elavil rather than the VPA I had just started, although at the visit of 09/05/24 he reported he'd stopped the Elavil, removing that potential confound. At the 2nd encounter of 05/08/24 he reported headache #2 (his migraines) had declined in frequency since starting VPA, although it turned out the rate he stated was the same as what he'd reported pre-VPA. He didn't remember much about the advice given in BM, and expressed irritation with the whole experience, feeling that the provider wasn't paying sufficient attention to his report that he'd previously tried and failed many of the maneuvers that were being recommended. The issue of the caffeine reduction came up and he reported reduction had made no difference. I explained (again) that there's unlikely to be any single action that will resolve his entrenched problem. I still supported reducing the caffeine to the usual recommended limit of 200 mg/day, at least to take off the table caffeine overuse as one contributor to his problem. I decided to hold off on adjusting the VPA until I'd discussed the Elavil with his psych provider pharmacist ABAD TENORIO. Post-encounter we did correspond, and Geena planned to cautiously escalate the Elavil. Athough the patient was also on sertraline its dose was low, which he felt opened up some room for careful Elavil escalation. At the 2nd encounter I also set patient up with a customized migraine diary. Review of interval chart indicates patient began seeing a differerent BM provider regarding his insomnia, but had the same reaction he had to the BM visit for headache, i.e., that he was dissatisfied because he was only being offered lifestyle changes he'd already tried without benefit. He was interested primarily in meds. At the 06/25/24 psych visit patient expressed pessimism about the Elavil, specifically for its chances of improving his sleep, and it looks as if the plan at that point was to use it only PRN, and ultimately to stop using it. (PRN use would have no relevance to headache.) He was again reporting some improvement in migraines and attributing it to the VPA. As of most recent Psych visit 08/28/23, he was reporting he'd stopped all of his meds in the prior month, which he attributed due to a period of worsened mood. At that point the plan was to d/c sertraline and buspirone (the latter having replaced the Elavil) and start duloxetine after his upcoming ENT surgery. I also see that since the previous Neuro encounter he saw saw Pain Management and Neurosurgery about R neck pain and sensory alterations in R UE, including R hand. Neurosurgery suspected ulnar and median nerve issues as the cause of man of the patient's extremity complaints, an d planned an EMG. He saw ENT for his R nasal obstruction and a reduction surgery was planned. Today patient presented unaccompanied. He brought his diary, which he mostly maintained, excepting some days in July during his period of worsened depression. he continued to have the chronic daily headache (every single day checked). He checked off only 2 migaines - on 05/12/24, 06/20/24. He also checked the migraine box 3 times in June and 5 times in August with a notation that these weren't migraines, but rather due to dehydration. He reported they were located at vertex, present briefly on waking, and I recall he made confusing and conflicting statements that they resolved with drinking fluids, but later that he attributed them to drinking too much water (despite his having recorded them in the diary as dehydration headaches ) and that they had resolved by drinking less fluid. He checked off a single bullseye headache during the entire April-August period and made a marginal notation of dehydration on that one as well. Overall he continued to feel that his migraines are better, which he attributes to the VPA, although he continued not to have any of the migraines during the past month, when he's not beeen taking the VPA. ACTIVE PROBLEM/PMH: Exposure to potentially hazardous 10/10/2023 substance ([facility] [id number]) Migraine 06/25/2024 H/O splenectomy 06/23/2023 Hereditary spherocytosis 05/21/2023 Insomnia 02/09/2023 Tobacco use 07/11/2024 Personality disorder 09/10/2023 Moderate recurrent major depression 08/28/2024 Suicidal thoughts 09/10/2023 Chronic post-traumatic stress disorder 02/09/2023 Insomnia 02/09/2023 MEDICATION RECONCILIATION Patient/Caregiver unable to participate in [...] TABLET BY ACTIVE MOUTH AT BEDTIME 4) DULOXETINE HCL 20MG EC CAP TAKE ONE CAPSULE BY MOUTH ACTIVE EVERY MORNING FOR MAJOR DEPRESSIVE DISORDER 5) FLUTICASONE PROP 50MCG 120D NASAL INHL USE 2 SPRAYS ACTIVE IN EACH NOSTRIL EVERY DAY 6) SINUS RINSE NEILMED PKT USE 1 PKT EACH NOSTRIL EVERY ACTIVE DAY NASAL CONGESTION ; MIX WITH 8 OZS OF WARM DISTILLED WATER DIRECTED 7) SINUS RINSE NEILMED REGULAR KIT USE 1 KIT EACH ACTIVE NOSTRIL EVERY DAY NASAL CONGESTION MIX WITH 8 OZS OF WARM DISTILLED WATER DIRECTED. REPLACE BOTTLE EVERY 90 DAYS 8) SODIUM CHLORIDE 0.65% SOLN NASAL SPRAY USE 2 SPRAYS ACTIVE EACH NOSTRIL SIX TIMES A DAY Allergies/ADR: MORPHINE, HYDROMORPHONE, OXYCODONE O/E: Vitals: T: 97.6 F [36.4 C] (09/04/2024 12:39) P: 75 (09/04/2024 12:39) R: 18 (09/04/2024 12:39) BP: 105/68 (09/04/2024 12:39) W: 173 lb [78.47 kg] (09/04/2024 12:39) BMI: 24.9 No additional exam peformed. I had planned to check him today for signs of dose- dependent anticonvulsant toxicity, but he's been off VPA for a month. ASSESSMENT: I. Headaches: His migraine type headache is under such good control that we probably wouldn't make any changes, apart from his restarting the divalproex sodium ( VPA ). (He plans to restart it as soon as his nasal surgery is over, scheduled for tomorrow.) However, his chronic daily headache persists and ideally should be controlled. I had hoped the Elavil would resolve this, but it was discontinued because the patient perceived it as ineffective for its primary purpose (insomnia), and Psych is now trialing duloxetine. I suspect he's going to continue to segue through various serotonergics, making co-administration of Elavil problematic, so while I would have preferred this agent over all others for his various headache complaints, I think it will be impractical for now. The next step then would be to escalate the VPA, but I think we should defer that. It may be that the headaches will improve under the duloxetine, or with improvement in patient's sleep by whatever means Psych employs. I dislike simultaneous adjustments of multiple neuroactive meds, especially by multiple providers, unless for a pressing reason, and up-titration of the VPA might become entirely necessary if his headaches respond to the other interventions Psych makes. Thus I'm going to hold off on making any changes from my end (apart from having him restart the VPA). As a practical matter, this is going to take some months to play out, as he needs to reach a stable psychotherapeutic regimen, and then have at least a couple of months pass to define his headache pattern on that regimen. So I'm going to have him come back in 6 months. Of note, I'm still uncertain how much the VPA did in the first place, but I'll accept patient's reports that it helped with severity and frequency. PLAN: 1) continue diary. I gave him a new version in which the congestion column was replaced by an other headache column to avoid the issue today in which he was using the migraine column to record a hitherto unrecognized headache type (his dehydration /vertex headache). 2) restart VPA after his ENT surgery, scheduled for tomorrow 3) RTC 6 months CODING DIAGNOSES: migraine without aura, not intractable, without status migrainosus depression (included because it significantly impacted evaluation and planning) TOTAL TIME SPENT: Spent 107 minutes in care of this patient today including review of records, exam, and placing orders. Time spent breakdown: Prior assessment distillation, interval chart review, visit plannin' f2f: 34' orders, coordination of care, note completion: 39' /deanna/ KINA IZQUIERDO NEUROLOGIST Signed: 09/05/2024 17:21 KINA IZQUIERDO [facility]
--- OUTSIDE RECORDS SUMMARY | 2024-09-05 06:00 | XMS_ITS | Encounter Summary ---
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 Date/Time Primary/Secondary Diagnosis Diagnosis Name Provider Source Sep 05, 2024 10:01 AM PRIMARY Deviated nasal septum ISAURA LOYD [facility] Sep 05, 2024 10:01 AM SECONDARY Hypertrophy of [facility]oids [facility] Sep 05, 2024 10:01 AM SECONDARY Hypertrophy of nasal turbinates ISAURA LOYD [facility] Sep 05, 2024 10:01 AM SECONDARY Hypertrophy of tonsils ISAURA LOYD [facility] Plan of Treatment: Future Appointments (+ 6 months) and Future Tests (+/- 45 days) The Plan of Treatment section includes future care activities for the patient [facility] [place] [facility] This section includes future appointments and future orders which are active, pending or scheduled. Future Appointments This section includes appointments that were scheduled to occur 6 months from the date of the Encounter, up to a maximum of 20 appointments. The data comes from all [place] treatment facilities. Appointment Date/Time Appointment Type Appointme nt Facility Name Sep 25, 2024 01:00 PM AMBULATORY - SURGERY [facility] Oct 03, 2024 01:00 PM AMBULATORY - REHAB MEDICIN E [facility] October 21, 2024 03:00 PM AMBULATORY - PSYCHIATRY [facility] November 03, 2024 02:30 PM AMBULATORY - PSYCHIATRY CL [facility] November 04, 2024 02:30 PM AMBULATORY - SURGERY [facility] November 11, 2024 09:00 AM AMBULATORY - NONE [facility] November 13, 2024 02:00 PM AMBULATORY - NONE [facility] Nov 17, 2024 11:00 AM AMBULATORY - PSYCHIATRY CL [facility] Dec 01, 2024 08:30 AM AMBULATORY - PSYCHIATRY CL [facility] Dec 01, 2024 01:00 PM AMBULATORY - NONE [facility] Dec 03, 2024 03:00 PM AMBULATORY - NONE [facility] Dec 08, 2024 03:30 PM AMBULATORY - PSYCHIATRY CL [facility] Dec 11, 2024 11:00 AM AMBULATORY - NONE [facility] Dec 15, 2024 09:30 AM AMBULATORY - PSYCHIATRY CL [facility] Dec 15, 2024 09:45 AM AMBULATORY - NONE [facility] Dec 22, 2024 01:30 PM AMBULATORY - NONE [facility] Dec 24, 2024 02:30 PM AMBULATORY - SURGERY [facility] Dec 30, 2024 01:00 PM AMBULATORY - PSYCHIATRY CL [facility] Jan 20, 2025 09:00 AM AMBULATORY - NONE [facility] Active, Pending, and Scheduled Orders This section [...] SEMEN ANALYSIS (POST-VAS) QUALITATIVE SEMINAL FLUID SP [facility] Lab Results: +/- [...] Comment Aug 27, 2024 02:35 PM [facility] VITAMIN D (TOTAL) SERUM Specimen Type: SERUM Comment: VITD One expert panel recommended a target range of 30-40 ng/mL. Ordering Provider: ROSARIO ESCALERA Report Released Date/Time: Jun 25, 2024 10:05 AM Reporting Lab: [address] [address] Performing Lab: [address] [address] VITAMIN D (TOTAL) 10 ng/mL L 30-60 Aug 27, 2024 02:35 PM [facility] HEPATIC FUNCTION PANEL PLASMA Specimen Type: [...] Jun 25, 2024 10:05 AM Reporting Lab: [address] [phone] Performing Lab: [address] [address] ALBUMIN 5.0 g/dL H 3.5-4.8 ALKALINE PHOSPHATASE 72 U/L 40-150 ALT/SGPT 27 U/L 0-55 AST/SGOT 25 U/L 10-40 BILIRUBIN,DIRECT 0.1 mg/dL 0.0-0.5 PROTEIN, TOTAL 8.1 g/dL 6.4-8.3 BILIRUBIN, TOTAL 0.4 mg/dL 0.2-1.2 Aug 27, 2024 02:35 PM [facility] LIPID PROFILE PLASMA Specimen Type: [...] Jun 25, 2024 03:09 PM Reporting Lab: [address] [address] Performing Lab: [address] [address] CHOLESTEROL 276 mg/dL H 0-199 LDL CHOLESTEROL 192 mg/dL H 0-99 HDL CHOLESTEROL 38 mg/dL L >40 TRIGLYCERIDE 469 mg/dL H 0-149 Vital Signs: All taken on the encounter date This section contains inpatient and outpatient Vital Signs collected on the date of the Encounter. Date/Time Temperature Pulse Blood Pressure Respiratory Rate SP02 Pain Height Weight Body Mass Index Source Sep 05, 2024 02:20 PM 98.6 60 139/89 18 3 [facility] Sep 05, 2024 01:39 PM 98.5 57 146/92 16 98 5 [facility] Sep 05, 2024 07:18 AM 97.6 64 122/81 18 97 0 [facility] Social History: Smoking Status (Most current) [...] Date/Time Current Smoking Status Comment Facil ity Sep 05, 2024 10:00 AM TOBACCO CURRENT USER daily vape [facility] Tobacco Use History This section includes a history of the smoking, or tobacco-related health factors, that were collected on or before the date of the Encounter. The data comes from the [place] facility where the Encounter took place. Date/Time Smoking Status/Tobacco Use Comment F acility Jun 06, 2024 11:30 AM VA-TOBACCO SCREEN FOLLOW-UP [facility] Jun 06, 2024 11:30 AM VA-TOBACCO USE ADVICE [facility] Jun 06, 2024 11:30 AM VA-TOBACCO USE SPEECH AND LANGUAGE ASSISTANT NO [facility] Jun 06, 2024 11:30 AM VA-TOBACCO USE EVERY DAY CIGARET MANNY [facility] Jun 06, 2024 11:30 AM VA-TOBACCO USE EVERY DAY ENDS [facility] Jun 06, 2024 11:30 AM VA-TOBACCO USE EVERY DAY OTHER T YPE [facility] Jun 06, 2024 11:30 AM VA-TOBACCO USE MED NO [facility] Jun 19, 2023 10:00 AM TOBACCO FORMER USER MORE 12 [facility] Advance Directives: All historical and [...] 2023 ADVANCE DIRECTIVE DISCUSSION SABINA NAIR [facility] Pathology Reports: +/- 30 days of [...] comes from all [place] treatment facilities. Date/Time Pathology Report Provider Source [...] RLLYMP Reflex report performed by [facility], Alok Cook [facility] Pathology and Laboratory [facility] [place], [address] [place] [address], specimen #[id number], electronically signed by Fadia Pizarro M.D. FLOW [...] sent for flow cytometry at [facility]. The remainder of the specimen is submitted in 1 cassette. SUPPLEMENTARY REPORT(S): Supplementary Report Date: SEP 22, 2024 *+* SUPPLEMENTARY REPORT HAS BEEN ADDED/MODIFIED *+* (Added/Last released: Sep 22, 2024 11:19 Signed by YVROSE KEBEDE) Surgical Pathology report performed by [facility], Alok Mccoy [facility] [place], [address] [place] [id number], specimen #[id number], electronically signed by Sarah Merritt M.D., Ph.D. FINAL DIAGNOSIS A. OUTSIDE MATERIALS RECEIVED FROM [facility], [place], [place] (EXTERNAL ID [id number], 09/05/2024): ADENOID BIOPSY: - REACTIVE LYMPHOID TISSUE, SEE COMMENT. SEE COMPLETE REPORT(S) IN [facility] /deanna/ YVROSE KEBEDE PATHOLOGIST Signed Sep 22, 2024@11:35 Performing Laboratory: Surgical Pathology Report Performed By: [facility] [CLIA# [id number]] [address] [place] [address] $FTR - - - - - - [...] - - MARION ZHENG STANDARD FORM 515 ID:[id number] SEX:M :1995 AGE: 29 LOC:[facility] PCP: Rosario Escalera DO /deanna/ YVROSE KEBEDE PATHOLOGIST Signed: 09/22/2024 11:35 YVROSE KEBEDE [facility] Sep 08, 2024 10:46 AM LR [...] RLLYMP Reflex report performed by [facility], Alok Mccoy [facility] [place], [address] [place] [id number], specimen #[id number], electronically signed by Fadia Pizarro M.D. FLOW [...] sent for flow cytometry at [facility]. The remainder of the specimen is submitted in 1 cassette. PIERRE KEBEDE PATHOLOGIST Signed Sep 08, 2024@10:46 Performing Laboratory: Surgical Pathology Report Performed By: [facility] [CLIA# [id number]] [address] [id number] $FTR - - - - - - [...] - - MARION ZHENG STANDARD FORM 515 ID:[id number] SEX:M :1995 AGE: 29 LOC:[facility] PCP: DO chirag Lara PATHOLOGIST Signed: 09/08/2024 10:46 YVROSE KEBEDE [facility] Encounter Notes: All associated encounter notes This section contains the clinical notes associated to the Encounter. Date/Time Encounter Note(s) Provider Source Sep 05, 2024 09:30 AM ANESTHESIOLOGY ATT ENDING NOTE: LOCAL TITLE: LEGAL SUPPORT SPECIALIST PRE-ANESTHETIC NOTE (T) STANDARD TITLE: ANESTHESIOLOGY ATTENDING NOTE DATE OF NOTE: SEP 05, 2024@09:30 ENTRY DATE: SEP 05, 2024@09:51:14 AUTHOR: RAMBO LOYD EXP COSIGNER: URGENCY: STATUS: COMPLETED Date of : Aug Sex: MALE Diagnosis: hypertrophic adnoids Proposed procedure: Adnoidectomy, bilateral inferior turbinate reduction, bilateral myringotomies with or without pressure equalization tubesAdnoidectomy, bilateral inferior turbinate reduction, bilateral myringotomies with or without pressure equalization tubes Information source: Patient, Chart Review Operating Room NPO:post [place] PAST MEDICAL HISTORY . 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 Leukocytosis,Erythrocytosis and thrombocytosis after spleenectomy PSYCHIATRIC Posttraumatic stress disorder Other: suicidal HABITS Tobacco use:Vaping now , quit 2 weeks ago Other Medical History Comment: serous effusion of b/l tympanic membranes , Exposure to potentially hazardous substance ---------PAST SURGICAL HISTORY--------- Past Surgical History: Surgery Date: 07/21/2024 Operative Proc(s): 21 VASECTOMY - REMOVAL OF SPERM DUCT(S) Surgery Date: 06/19/2023 Operative Proc(s): 21 BILATERAL TONSILLECTOMY - EAR AND THROAT EXAMINATION Bilateral no scalpel vasectomy 07/2024-direct laryngoscopy, tonsillectomy 06/2023-SPLEENECTOMY 01/2020-RIGHT INGUINAL HERNIA 2012-Cholecystectomy 2009-EGD and colonoscopy 2009 ANESTHESIA HISTORY . PONV MEDICATIONS Active Inpatient, Outpatient and Clinic Medications (including Supplies): Clinic Medications Status 1) FENTANYL INJ,SOLN 25MCG/0.5ML IVP PRN Q5MIN ACTIVE NEEDED PAIN (4-6): MAX 150MCG: ADMINISTER IN PACU ONLY 2) FENTANYL INJ,SOLN 25MCG/0.5ML IVP PRN Q5MIN ACTIVE NEEDED PAIN (7-10): MAX 200MCG: ADMINISTER IN PACU ONLY 3) ONDANSETRON INJ INJ,SOLN 4MG/2ML IVP ONCE PRN 1ST ACTIVE LINE ANTIEMETIC: NAUSEA/VOMITING: ADMINISTER IN PACU ONLY Outpatient Medications Status 1) ATORVASTATIN CALCIUM 10MG [...] ACTIVE IN EACH NOSTRIL EVERY DAY 6) HYDROCODONE 5MG/ACETAMINOPHEN 325MG TAB TAKE 1 TO 2 ACTIVE TABLETS BY MOUTH EVERY 6 HOURS NEEDED FOR PAIN - TAKE 1 TABLET FOR MODERATE PAIN OR TAKE 2 TABLETS FOR SEVERE PAIN. 7) SINUS RINSE NEILMED PKT USE 1 PKT EACH NOSTRIL EVERY ACTIVE DAY NASAL CONGESTION ; MIX WITH 8 OZS OF WARM DISTILLED WATER DIRECTED 8) SINUS RINSE NEILMED REGULAR KIT USE 1 KIT EACH ACTIVE NOSTRIL EVERY DAY NASAL CONGESTION MIX WITH 8 OZS OF WARM DISTILLED WATER DIRECTED. REPLACE BOTTLE EVERY 90 DAYS 9) SODIUM CHLORIDE 0.65% SOLN NASAL SPRAY USE 2 SPRAYS ACTIVE EACH NOSTRIL EVERY 2 HOURS 12 Total Medications ALLERGIES/ADVERSE DRUG REACTIONS MORPHINE, HYDROMORPHONE, OXYCODONE ---------LABS-------- \ 16.7 / 14.7 ------- 430 (06/19/2024) / 49.1 \ MCV: 80.4 (06/19/24 09:49) BLOOD NEUT. %: 43.5 (12/19/23 09:26) BLOOD 137 107 12.0 / 94 (06/19/2024) 4.3 21 1.0 \ Collection DT Specimen Test Name Result Units Ref Range 06/19/2024 09:49 PLASMA CALCIUM 9.5 mg/dL 8.6 - 10.3 Comment: DLDLREF RANGE: NEAR OR ABOVE OPTIMAL: 100-129 mg/dL BORDERLINE Comment: DLDLHIGH: 130-159 mg/dL HIGH: 160-189 mg/dL VERY HIGH: >=190 Comment: GLUCOSE The ADA recommends a fasting glucose of 99 mg/dL as the Comment: GLUCOSE upper limit of normal. Comment: TP Per package insert reference range for recumbent is 6.0 to 7.8 Comment: TP g/dL and for >60 y/o is lower by 0.2 g/dL. Plasma samples will Comment: TP generally have higher values (about 0.2 to 0.4 g/dL higher) due Comment: TP to presence of fibrinogen. Comment: TRIG REF RANGE: BORDERLINE HIGH: 150-199 mg/dL HIGH: 200-499 mg/dL Comment: TRIG VERY HIGH: >=500 mg/dL Comment: CHOL REF RANGE: BORDERLINE HIGH: 200-239 mg/dL HIGH: >=240 mg/dL Comment: HDLC Values >60 are a negative risk factor for heart disease. Collection DT Specimen Test Name Result Units Ref Range 06/19/2024 09:49 PLASMA MAGNESIUM 2.2 mg/dL 1.6 - 2.6 Comment: DLDLREF RANGE: NEAR OR ABOVE OPTIMAL: 100-129 mg/dL BORDERLINE Comment: DLDLHIGH: 130-159 mg/dL HIGH: 160-189 mg/dL VERY HIGH: >=190 Comment: GLUCOSE The ADA recommends a fasting glucose of 99 mg/dL as the Comment: GLUCOSE upper limit of normal. Comment: TP Per package insert reference range for recumbent is 6.0 to 7.8 Comment: TP g/dL and for >60 y/o is lower by 0.2 g/dL. Plasma samples will Comment: TP generally have higher values (about 0.2 to 0.4 g/dL higher) due Comment: TP to presence of fibrinogen. Comment: TRIG REF RANGE: BORDERLINE HIGH: 150-199 mg/dL HIGH: 200-499 mg/dL Comment: TRIG VERY HIGH: >=500 mg/dL Comment: CHOL REF RANGE: BORDERLINE HIGH: 200-239 mg/dL HIGH: >=240 mg/dL Comment: HDLC Values >60 are a negative risk factor for heart disease. No Results No data available PTT: No data available ------ PHYSICAL EXAMINATION ------ . ANES OPENING 2 Vitals: T: 97.6 F [36.4 C] (09/05/2024 07:18) P: 64 (09/05/2024 07:18) R: 18 (09/05/2024 07:18) BP: 122/81 (09/05/2024 07:18) Pain: 0 (09/05/2024 07:18) Height 70 in [177.8 cm] (08/27/2024 14:43) Weight 173 lb [78.47 kg] (09/04/2024 12:39) Airway: Mallampati: 3 Oral Opening: Limited opening Thyromental distance: >6cm Dental: All natural, Poor dentition Neck/Cervical spine: No Problems Noted Chest: Clear to auscultation bilat Heart & Circulation: Regular rate and rhythm Other physical findings: Plan I personally performed* a pre-anesthetic evaluation on this patient on Aug@08:25 and I formed a medical opinion as to the candidacy of this patient for anesthesia. Based on this pre-anesthetic evaluation, I designated this patient an ASA class: ASA class 3 *(personally performed, in this context, means I personally performed a pertinent physical examination including an examination of the airway, reviewed available data including medical, anesthesia and medication histories (including drug and allergy history) and clarified it when I deemed appropriate). I personally prescribed the anesthetic plan as: General I prescribed the monitoring plan as follows: ASA standards (continuous presence of qualified personnel in room, continuous ECG, continuous pulse oximetry, blood pressure and pulse recorded at least every 5 minutes, availablity of temperature monitoring for cases expected to exceed one hour). Plus: Post-Operative location plan - PACU Post-operative pain plan Injectables PRN Pain management plan discussed with patient INFORMED CONSENT RISKS, BENEFITS, ALTERNATIVES (INCLUDING NO TREATMENT) DISCUSSED WITH PATIENT/FAMILY WHO AGREE TO PROCEED TOTAL TIME SPENT: Spent 42 minutes in care of this patient today including review of records, exam, and placing orders. /deanna/ RAMBO LOYD ANESTHESIOLOGIST Signed: 09/05/2024 10:01 RAMBO LOYD [facility]
--- OUTSIDE RECORDS SUMMARY | 2024-09-05 09:38 | XMS_ITS | Encounter Summary ---
Author Name [facility] [place] [facility] [place] Address [address] [place] [address] Care Team Providers Care Counterintelligence Agent Name Role Phone ROSARIO ESCALERA Primary Care [...] Type Encounter Description Reason Pro vider Source Sep 05, 2024 01:38 PM Outpatient Encounter PATIENT CARE IN [place] E Encounter Template Text not used by [place] Plan of Treatment: Future Appointments (+ 6 months) and Future Tests (+/- 45 days) The Plan of Treatment section includes future care activities for the patient from all [place] treatmentfacilities. This section includes future appointments and [...] 25, 2024 01:00 PM AMBULATORY - SURGERY [facility] Oct 03, 2024 01:00 PM AMBULATORY - REHAB MEDICIN E [facility] October 21, 2024 03:00 PM AMBULATORY - PSYCHIATRY CL [facility] November 03, 2024 02:30 PM AMBULATORY - PSYCHIATRY CL [facility] November 04, 2024 02:30 PM AMBULATORY - SURGERY [facility] November 11, 2024 09:00 AM AMBULATORY - NONE [facility] November 13, 2024 02:00 PM AMBULATORY - NONE [facility] Nov 17, 2024 11:00 AM AMBULATORY - PSYCHIATRY CL [facility] Dec 01, 2024 08:30 AM AMBULATORY - PSYCHIATRY CL [facility] Dec 01, 2024 01:00 PM AMBULATORY - NONE [facility] [facility] Dec 03, 2024 03:00 PM AMBULATORY - NONE [facility] [facility] Dec 08, 2024 03:30 PM AMBULATORY - PSYCHIATRY CL [facility] Dec 11, 2024 11:00 AM AMBULATORY - NONE [place] [facility] Dec 15, 2024 09:30 AM AMBULATORY - PSYCHIATRY CL [facility] Dec 15, 2024 09:45 AM AMBULATORY - NONE [facility] Dec 22, 2024 01:30 PM AMBULATORY - NONE [place] [facility] Dec 24, 2024 02:30 PM AMBULATORY - SURGERY [facility] Dec 30, 2024 01:00 PM AMBULATORY - PSYCHIATRY CL [facility] Jan 20, 2025 09:00 AM AMBULATORY - NONE [place] [facility] Active, Pending, and Scheduled Orders This section includes a listing of several types of active, pending, and scheduled orders, including clinic medications orders, diagnostic test orders, procedure orders and consult orders; where the start date of the order is 45 days before the date of the Encounter or 45 days after the date of theEncounter. The data comes from all [facility]. Test Date/Time Test Type Test Details Facility Name October 18, 2024 12:00 AM Laboratory - Chemi delbert Order SEMEN ANALYSIS (POST-VAS) QUALITATIVE SEMINAL FLUID SP [facility] Lab Results: +/- 30 days [...] Type Comment Aug 27, 2024 02:35 PM [facility] VITAMIN D (TOTAL) SERUM Specimen Type: SERUM Comment: VITD One expert panel recommended a target range of 30-40 ng/mL. Ordering Provider: ROSARIO ESCALERA Report Released Date/Time: Jun 25, 2024 10:05 AM Reporting Lab: [address] [address] Performing Lab: [address] [address] VITAMIN D (TOTAL) 10 ng/mL L 30-60 Aug 27, 2024 02:35 PM [facility] LIPID PROFILE PLASMA Specimen Type: [...] Jun 25, 2024 03:09 PM Reporting Lab: [address] [address] Performing Lab: [address] [address] CHOLESTEROL 276 mg/dL H 0-199 LDL CHOLESTEROL 192 mg/dL H 0-99 HDL CHOLESTEROL 38 mg/dL L >40 TRIGLYCERIDE 469 mg/dL H 0-149 Aug 27, 2024 02:35 PM [facility] HEPATIC FUNCTION PANEL PLASMA Specimen [...] Jun 25, 2024 10:05 AM Reporting Lab: [facility] [address] [facility] [address] Performing Lab: [facility] [id number] [place] [id number] ALBUMIN 5.0 g/dL H 3.5-4.8 ALKALINE PHOSPHATASE [...] 02:20 PM 98.6 60 139/89 18 3 [facility] Sep 05, 2024 01:39 PM 98.5 57 146/92 16 98 5 [facility] Sep 05, 2024 07:18 AM 97.6 64 122/81 18 97 0 [facility] Social History: Smoking Status (Most [...] place. Date/Time Current Smoking Status Bryanna andrade Sep 05, 2024 10:00 AM TOBACCO CURRENT USER daily vape [facility] Tobacco Use History This section includes a history of the smoking, or tobacco-related health factors, that were collected on or before the date of the Encounter. The data comes from the [place] facility where the Encounter took place. Date/Time Smoking Status/Tobacco Use Comment F acility Jun 06, 2024 11:30 AM VA-TOBACCO SCREEN FOLLOW-UP [facility] Jun 06, 2024 11:30 AM VA-TOBACCO USE ADVICE [facility] Jun 06, 2024 11:30 AM VA-TOBACCO USE BASKETBALLS AND FOOTBALLS REVERSER NO [facility] Jun 06, 2024 11:30 AM VA-TOBACCO USE EVERY DAY CIGARET MANNY [facility] Jun 06, 2024 11:30 AM VA-TOBACCO USE EVERY DAY ENDS [facility] Jun 06, 2024 11:30 AM VA-TOBACCO USE EVERY DAY OTHER T YPE [facility] Jun 06, 2024 11:30 AM VA-TOBACCO USE MED NO [facility] Jun 19, 2023 10:00 AM TOBACCO FORMER USER MORE [facility] Advance Directives: All historical and current Section Date Range: From patient's date of to the date document was created. This section includes ALL of a patient's completed or amended [place] Advance and Rescinded Directives. The entries below indicate that a directive exists for the patient, but an actual copy is not included with this document. The data comes from all [facility]. Date Advance Directives Provider Source October 22, 2023 ADVANCE DIRECTIVE DISCUSSION SABINA NAIR [facility] Pathology Reports: +/- 30 days [...] comes from all [place] treatment facilities. Date/Time Pathology Report Provider Source [...] [facility] [place], [address] [place], [place] [id number], specimen #[id number], electronically signed by Fadia Pizarro M.D. FLOW CYTOMETRY (Final result) INTERPRETATION There is no immunophenotypic evidence of involvement by a T-cell lymphoproliferative disorder in this limited sample. Correlation with the histopathologic and clinical findings is suggested. SEE COMPLETE REPORT(S) IN [employer] GROSS DESCRIPTION Specimen is received fresh for frozen section, labeled with the patient's name, medical record number and nasopharyngeal mass . It consists of 2 frey-white soft tissue fragments measuring 0.3 to 0.7 cm in greatest dimension. A portion of the specimen is submitted in RPMI and sent for flow cytometry at [facility]. The remainder of the specimen is submitted in 1 cassette. SUPPLEMENTARY REPORT(S): Supplementary Report Date: SEP 22, 2024 *+* SUPPLEMENTARY REPORT HAS BEEN ADDED/MODIFIED *+* (Added/Last released: Sep 22, 2024 11:19 Signed by YVROSE KEBEDE) Surgical Pathology report [facility] [place], [address] [place], [place] [id number], specimen #[id number], electronically signed by Sarah Merritt M.D., Ph.D. FINAL DIAGNOSIS A. OUTSIDE MATERIALS RECEIVED FROM [facility] [place], [place] (EXTERNAL ID [id number], 09/05/2024): ADENOID BIOPSY: - REACTIVE LYMPHOID TISSUE, SEE COMMENT. SEE COMPLETE REPORT(S) IN [employer] /deanna/ YVROSE KEBEDE PATHOLOGIST Signed Sep 22, 2024@11:35 Performing Laboratory: Surgical Pathology Report Performed By: [facility] [CLIA# [id number]] [address] [place] [id number] $FTR - - - - - - - - - - - - - - - - - - - - - - - - - - - - - - - - - - - - - - - - (End of report) YVROSE KEBEDE [facility] Date Sep 08, 2024 - - - - - - - - - - - - - - - - - - - - - - - - - - - - - - - - - - - - - - - - MARION ZHENG STANDARD FORM 515 ID:[id number] SEX:M :1995 AGE: 29 LOC:[facility] PCP: Rosario Escalera, /deanna/ YVROSE KEBEDE PATHOLOGIST Signed: 09/22/2024 11:35 YVROSE KEBEDE [facility] Sep 08, 2024 10:46 AM [...] RLLYMP Reflex report performed by [facility], [facility] Path[facility] [place], [address] [place] [address], specimen #[id number], electronically signed by Fadia Pizarro M.D. FLOW [...] sent for flow cytometry at [facility]. The remainder of the specimen is submitted in 1 cassette. PIERRE /deanna/ YVROSE KEBEDE PATHOLOGIST Signed Sep 08, 2024@10:46 Performing Laboratory: Surgical Pathology Report Performed By: [facility] [CLIA# [id number]] [address] [place] [address] $FTR - - - - - - - - - - - - - - - - - - - - - - - - - - - - - - - - - - - - - - - - (End of report) YVROSE KEBEDE [facility] Date Sep 08, 2024 - - - - - - - - - - - - - - - - - - - - - - - - - - - - - - - - - - - - - - - - MARION ZHENG STANDARD FORM 515 ID:[id number] SEX:M :1995 AGE: 29 LOC[facility] PCP: Rosario Escalera DO /deanna/ YVROSE KEBEDE PATHOLOGIST Signed: 09/08/2024 10:46 YVROSE KEBEDE [facility] Encounter Notes: All associated encounter notes This section contains the clinical notes associated to the Encounter. Date/Time Encounter Note(s) Provider Source Sep 05, 2024 01:38 PM NURSING FLOWSHEET: LOCAL TITLE: [facility] CL[facility]ICAL FLOWSHEET STANDARD TITLE: NURSING FLOWSHEET DATE OF NOTE: SEP 05, 2024@13:38 ENTRY DATE: SEP 05, 2024@13:38:40 AUTHOR: CALEB RODRIGUEZ EXP COSIGNER: URGENCY: STATUS: COMPLETED See linked PDF file /es/ USER JENNIFER Signed: 09/05/2024 13:38 CALEB RODRIGUEZ [facility]
--- OUTSIDE RECORDS SUMMARY | 2024-09-16 05:00 | XMS_ITS | Encounter Summary ---
Author Name [facility] [place] [facility] [place] Address [address] [place] [address] Care Team Providers Care Room Cleaner Name Role Phone ROSARIO ESCALERA Primary Care Provider [facility] xuan Insurance Providers: All historical and [...] section includes the information on record at OR for the Encounter. Date/Time Encounter Type Encounter Description Reason Pro vider Source Sep 16, 2024 09:00 AM Outpatient Encounter [facility] E Encounter Template Text not used by OR Plan of Treatment: Future Appointments (+ 6 months) and Future Tests (+/- 45 days) The Plan of Treatment section includes future care activities for the patient from all OR treatmentfacilities. This section includes future appointments and future orders which are active, pending or scheduled. Future Appointments This section includes appointments that were scheduled to occur 6 months from the date of the Encounter, up to a maximum of 20 appointments. The data comes from all OR treatment facilities. Appointment Date/Time Appointment Type Appointme nt Facility Name Sep 25, 2024 01:00 PM AMBULATORY - SURGERY [facility] Oct 03, 2024 01:00 PM AMBULATORY - REHAB MEDICIN E [facility] October 21, 2024 03:00 PM AMBULATORY - PSYCHIATRY [facility] November 03, 2024 02:30 PM AMBULATORY - PSYCHIATRY [facility] November 04, 2024 02:30 PM AMBULATORY - SURGERY [facility] November 11, 2024 09:00 AM AMBULATORY - NONE [facility] November 13, 2024 02:00 PM [facility] Nov 17, 2024 11:00 AM AMBULATORY - PSYCHIATRY [facility] Dec 01, 2024 08:30 AM AMBULATORY - PSYCHIATRY [facility] Dec 01, 2024 01:00 PM [facility]ATORY - NONE [facility] Dec 03, 2024 03:00 PM [facility]ORY - NONE [facility] Dec 08, 2024 03:30 PM AMBULATORY - PS[facility]CHIATRY [facility] Dec 11, 2024 11:00 AM [facility] Dec 15, 2024 09:30 AM AMBULATORY - PS[facility]CHIATRY [facility] Dec 15, 2024 09:45 AM AMBULATORY - NONE [facility] Dec 22, 2024 01:30 PM [facility] Dec 24, 2024 02:30 PM AMBULATORY - SURGERY [facility] Dec 30, 2024 01:00 PM AMBULATORY - PSYCHIATRY [facility] Jan 20, 2025 09:00 AM [facility] Active, Pending, and Scheduled Orders This section includes a listing of several types of active, pending, and scheduled orders, including clinic medications orders, diagnostic test orders, procedure orders and consult orders; where the start date of the order is 45 days before the date of the Encounter or 45 days after the date of theEncounter. The data comes from all OR treatment facilities. Test Date/Time Test Type Test Details Facility Name October 18, 2024 12:00 AM Laboratory - Brocki delbert Order SEMEN ANALYSIS (POST-VAS) QUALITATIVE SEMINAL FLUID SP [facility] Lab Results: +/- 30 days of [...] Type Comment Aug 27, 2024 02:35 PM [facility] VITAMIN D (TOTAL) SERUM Specimen Type: SERUM Comment: VITD One expert panel recommended a target range of 30-40 ng/mL. Ordering Provider: ROSARIO ESCALERA Report Released Date/Time: Jun 25, 2024 10:05 AM Reporting Lab: [address] [address] Performing Lab: [address] [address] VITAMIN D (TOTAL) 10 ng/mL L 30-60 Aug 27, 2024 02:35 PM [facility] LIPID PROFILE PLASMA Specimen Type: PLASMA [...] Jun 25, 2024 03:09 PM Reporting Lab: [address] [address] Performing Lab: [address] [address] CHOLESTEROL 276 mg/dL H 0-199 LDL CHOLESTEROL 192 mg/dL H 0-99 HDL CHOLESTEROL 38 mg/dL L >40 TRIGLYCERIDE 469 mg/dL H 0-149 Aug 27, 2024 02:35 PM [facility] HEPATIC FUNCTION PANEL PLASMA Specimen Type: [...] Jun 25, 2024 10:05 AM Reporting Lab: [facility] [address] [facility] [address] Performing Lab: [address] [address] ALBUMIN 5.0 g/dL H 3.5-4.8 ALKALINE PHOSPHATASE 72 U/L 40-150 ALT/SGPT 27 U/L 0-55 AST/SGOT 25 U/L 10-40 BILIRUBIN,DIRECT 0.1 mg/dL 0.0-0.5 PROTEIN, TOTAL 8.1 g/dL 6.4-8.3 BILIRUBIN, TOTAL 0.4 mg/dL 0.2-1.2 Social History: Smoking Status (Most current) and Tobacco Use (All prior to encounter date) This section includes the most current, and the historical, smoking and tobacco- related health factors from the OR facility where the Encounter took place. Current Smoking Status This section includes the most current smoking, or tobacco-related health factor, from the OR facility where the Encounter took place. Date/Time Current Smoking Status Comment Lucinda itjosefa Sep 05, 2024 10:00 AM TOBACCO CURRENT USER daily vape [facility] Tobacco Use History This section includes a history of the smoking, or tobacco-related health factors, that were collected on or before the date of the Encounter. The data comes from the OR facility where the Encounter took place. 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 This section includes ALL of a patient's completed or amended OR Advance and Rescinded Directives. The entries below indicate that a directive exists for the patient, but an actual copy is not included with this document. The data comes from all OR facilities. Date Advance Directives Provider Source October 22, 2023 ADVANCE DIRECTIVE DISCUSSION SABINA NAIR [facility] Pathology Reports: +/- 30 days [...] the Encounter. The data comes from all OR treatment facilities. Date/Time Pathology Report Provider Source [...] - - - $TEXT Submitted by: BHARATHI JHONS Date obtained: Sep 05, 2024 11:06 - [...] Flow Cytometry RLLYMP Reflex report performed by [facility], Alok Mccoy [facility] [place], [address], [place] [address], specimen #[id number], electronically signed by Fadia Pizarro M.D. FLOW [...] RPMI and sent for flow cytometry at [facility]. The remainder of the specimen is submitted in 1 cassette. SUPPLEMENTARY REPORT(S): Supplementary Report Date: SEP 22, 2024 *+* SUPPLEMENTARY REPORT HAS BEEN ADDED/MODIFIED *+* (Added/Last released: Sep 22, 2024 11:19 Signed by YVROSE KEBEDE) Surgical Pathology report performed by [facility], Alok Cook [facility] [place], [address] [place] [address], specimen #[id number], electronically signed by Sarah Merritt M.D., Ph.D. FINAL DIAGNOSIS A. OUTSIDE MATERIALS RECEIVED FROM [facility], [place], [place] (EXTERNAL ID [id number], 09/05/2024): ADENOID BIOPSY: - REACTIVE LYMPHOID TISSUE, SEE COMMENT. SEE COMPLETE REPORT(S) IN [facility] // YVROSE KEBEDE PATHOLOGIST Signed Sep 22, 2024@11:35 Performing Laboratory: Surgical Pathology Report Performed By: [facility] [CLIA# [id number]] [address] [place] [address] $FTR - - - - - - - - - - - - - - - - - - - - - - - - - - - - - - - - - - - - - - - - (End of report) YVROSE KEBEDE [facility] Date Sep 08, 2024 - - - - - - - - - - - - - - - - - - - - - - - - - - - - - - - - - - - - - - - - MARION ZHENG STANDARD FORM 515 ID:[id number] SEX:M :1995 AGE: 29 LOC:[facility] PCP: Rosario Escalera DO /deanna/ YVROSE KEBEDE PATHOLOGIST Signed: 09/22/2024 11:35 YVROSE KEBEDE [facility] Sep 08, 2024 10:46 AM LR [...] Flow Cytometry RLLYMP Reflex report performed by [facility], Alok Joyce [facility] [place], [address] [place], [place] [address], specimen #[id number], electronically signed by Fadia Pizarro M.D. FLOW [...] RPMI and sent for flow cytometry at [facility]. The remainder of the specimen is submitted in 1 cassette. PIERRE /deanna/ YVROSE KEBEDE PATHOLOGIST Signed Sep 08, 2024@10:46 Performing Laboratory: Surgical Pathology Report Performed By: [facility] [CLIA# [id number]] [address] [place] [address] $FTR - - - - - - [...] - - MARION ZHENG STANDARD FORM 515 ID:[id number] SEX:M :1995 AGE: 29 LOC:[facility] PCP: Rosario Escalera, /deanna/ YVROSE KEBEDE PATHOLOGIST Signed: 09/08/2024 10:46 YVROSE KEBEDE [facility] Encounter Notes: All associated encounter notes This section contains the clinical notes associated to the Encounter. Date/Time Encounter Note(s) Provider Source Sep 16, 2024 08:29 AM NO SHOW NOTE: LOCAL TITLE: NO SHOW (T)// NO SHOW/CANCELLATION NOTE STANDARD TITLE: NO SHOW NOTE DATE OF NOTE: SEP 16, 2024@08:29 ENTRY DATE: SEP 16, 2024@08:29:12 AUTHOR: NAA LOPEZ EXP COSIGNER: URGENCY: STATUS: COMPLETED Patient cancelled this appointment. /deanna/ NAA LOPEZ CLINICAL PSYCHOLOGIST Signed: 09/16/2024 08:29 NAA LOPEZ [facility]
--- OUTSIDE RECORDS SUMMARY | 2024-09-25 09:00 | XMS_ITS | Encounter Summary ---
Author Name Department of [facility]a Affairs ([place]) Organization [facility] Address [address] [place] [address] Care Team Providers Care Gas Systems Worker Name Role Phone ROSARIO ESCALERA Primary [...] Type Encounter Description Reason Provider Source Sep 25, 2024 01:00 PM POSTOP FOLLOW-UP VISIT OTOLARYNGOLOGY/EN T ICD-10-CM J35.2 Hypertrophy of adenoids BHARATHI JOHNS Sonya Encounter Template Text not used by [place] Assessments - Encounter Diagnoses This section includes the primary and secondary diagnoses documented for the Encounter. Date/Time Primary/Secondary Diagnosis Diagnosis Name Provider Source Sep 25, 2024 05:03 PM PRIMARY Hypertrophy of adenoids BHARATHI JOHNS [facility] Sep 25, 2024 05:03 PM SECONDARY Chronic serous otitis media, bilateral BHARATHI JOHNS [facility] Sep 25, 2024 05:03 PM SECONDARY Hypertrophy of nasal turbinates BHARATHI JOHNS [facility] Plan of Treatment: Future Appointments (+ 6 months) and Future Tests (+/- 45 days) The Plan of Treatment section includes future care activities for the patient from all [facility]. This section includes future appointments and future orders which are active, pending or scheduled. Future Appointments This section includes appointments that were scheduled to occur 6 months from the date of the Encounter, up to a maximum of 20 appointments. The data comes from all [facility]. Appointment Date/Time Appointment Type Appointme nt Facility Name Oct 03, 2024 01:00 PM AMBULATORY - REHAB MEDICIN E [facility] October 21, 2024 03:00 PM [facility] November 03, 2024 02:30 PM [facility] November 04, 2024 02:30 PM AMBULATORY - SURGERY [facility] November 11, 2024 09:00 AM [facility]ORY - NONE [facility] November 13, 2024 02:00 PM AM[facility]ULATORY - NONE [facility] Nov 17, 2024 11:00 AM [facility]ORY - PS[facility]RY [facility] Dec 01, 2024 08:30 AM AM[facility] - [facility]ATRY [facility] Dec 01, 2024 01:00 PM AM[facility]ULATORY - NONE [facility] Dec 03, 2024 03:00 PM AM[facility]ULATORY - NONE [facility] Dec 08, 2024 03:30 PM [facility]RY [facility] Dec 11, 2024 11:00 AM AM[facility]ORY - NONE [facility] Dec 15, 2024 09:30 AM [facility]ATRY [facility] Dec 15, 2024 09:45 AM AMBULATORY - NONE [facility] Dec 22, 2024 01:30 PM [facility]ULATORY - NONE [facility] Dec 24, 2024 02:30 PM AMBULATORY - SURGERY [facility] Dec 30, 2024 01:00 PM AMBUL[facility]ORY - PS[facility]IATRY [facility] Jan 20, 2025 09:00 AM AMBULATORY - NONE [facility] Active, Pending, and Scheduled Orders This section includes a listing of several types of active, pending, and scheduled orders, including clinic medications orders, diagnostic test orders, procedure orders and consult orders; where the start date of the order is 45 days before the date of the Encounter or 45 days after the date of theEncounter. The data comes from all [place] treatment facilities. Test Date/Time Test Type Test Details Facility Name October 18, 2024 12:00 AM Laboratory - Chemi stry Order SEMEN ANALYSIS (POST-VAS) QUALITATIVE SEMINAL FLUID SP [facility] November 04, 2024 03:35 PM Consult Order COMMUNITY CARE-CHIROPRACTIC Cons Slip Mixer's Choice [facility] Lab Results: +/- 30 days of the [...] Type Comment Aug 27, 2024 02:35 PM [facility] VITAMIN D (TOTAL) SERUM Specimen Type: SERUM Comment: VITD One expert panel recommended a target range of 30-40 ng/mL. Ordering Provider: ROSARIO ESCALERA Report Released Date/Time: Jun 25, 2024 10:05 AM Reporting Lab: [address] [address] Performing Lab: [address] [address] VITAMIN D (TOTAL) 10 ng/mL L 30-60 Aug 27, 2024 02:35 PM [facility] LIPID PROFILE PLASMA Specimen Type: PLASMA Comment: [...] Jun 25, 2024 03:09 PM Reporting Lab: [address] [address] Performing Lab: [address] [address] CHOLESTEROL 276 mg/dL H 0-199 LDL CHOLESTEROL 192 mg/dL H 0-99 HDL CHOLESTEROL 38 mg/dL L >40 TRIGLYCERIDE 469 mg/dL H 0-149 Aug 27, 2024 02:35 PM [facility] HEPATIC FUNCTION PANEL PLASMA Specimen Type: PLASMA [...] Jun 25, 2024 10:05 AM Reporting Lab: [address] [address] Performing Lab: [address] [address] ALBUMIN 5.0 g/dL H 3.5-4.8 ALKALINE PHOSPHATASE [...] place. Date/Time Current Smoking Status Comment Facil [facility] Sep 05, 2024 10:00 AM TOBACCO CURRENT USER daily vape [facility] Tobacco Use History This section includes a history of the smoking, or tobacco-related health factors, that were collected on or before the date of the Encounter. The data comes from the [place] facility where the Encounter took place. Date/Time Smoking Status/Tobacco Use Comment F acility Jun 06, 2024 11:30 AM VA-TOBACCO SCREEN FOLLOW-UP [facility] Jun 06, 2024 11:30 AM VA-TOBACCO USE ADVICE [facility] Jun 06, 2024 11:30 AM VA-TOBACCO USE PITCH FILLER NO [facility] Jun 06, 2024 11:30 AM VA-TOBACCO USE EVERY DAY CIGARET MANNY [facility] Jun 06, 2024 11:30 AM VA-TOBACCO USE EVERY DAY ENDS [facility] Jun 06, 2024 11:30 AM VA-TOBACCO USE EVERY DAY OTHER T YPE [facility] Jun 06, 2024 11:30 AM VA-TOBACCO USE MED NO [facility] Jun 19, 2023 10:00 AM TOBACCO FORMER USER MORE [facility] Advance Directives: All historical and current [...] 22, 2023 ADVANCE DIRECTIVE DISCUSSION SABINA NAIR [facility] Pathology Reports: +/- 30 days [...] 22, 2024 11:35 AM LR SURGICAL PATHOL PAOLA REPORT: LOCAL TITLE: LR SURGICAL PATHOLOGY REPORT [...] Flow Cytometry RLLYMP [facility] [place], [address] [place], [place] [id number], specimen #[id number], electronically signed by Fadia Pizarro M.D. FLOW CYTOMETRY (Final result) INTERPRETATION There is no immunophenotypic evidence of involvement by a T-cell lymphoproliferative disorder in this limited sample. Correlation with the histopathologic and clinical findings is suggested. SEE COMPLETE REPORT(S) IN [place] GROSS DESCRIPTION Specimen is received fresh for frozen section, labeled with the patient's name, medical record number and nasopharyngeal mass . It consists of 2 frey-white soft tissue fragments measuring 0.3 to 0.7 cm in greatest dimension. A portion of the specimen is submitted in RPMI and sent for flow cytometry at [facility]. The remainder of the specimen is submitted in 1 cassette. SUPPLEMENTARY REPORT(S): Supplementary Report Date: SEP 22, 2024 *+* SUPPLEMENTARY REPORT HAS BEEN ADDED/MODIFIED *+* (Added/Last released: Sep 22, 2024 11:19 Signed by YVROSE KEBEDE) Surgical Pathology report [facility] [place], [address] [place], [place] [id number], specimen #[id number], electronically signed by Sarah Merritt M.D., Ph.D. FINAL DIAGNOSIS A. OUTSIDE MATERIALS RECEIVED FROM [facility], [place], [place] (EXTERNAL ID [id number], 09/05/2024): ADENOID BIOPSY: - REACTIVE LYMPHOID TISSUE, SEE COMMENT. SEE COMPLETE REPORT(S) IN [place] /deanna/ YVROSE KEBEDE PATHOLOGIST Signed Sep 22, 2024@11:35 Performing Laboratory: Surgical Pathology Report Performed By: [facility] [CLIA# [id number]] [address] [place] [address] $FTR - - - - - - - - - - - - - - - - - - - - - - - - - - - - - - - - - - - - - - - - (End of report) YVROSE KEBEDE [facility] Date Sep 08, 2024 - - - - - - - - - - - - - - - - - - - - - - - - - - - - - - - - - - - - - - - - MARION SANTACRUZ STANDARD FORM 515 ID:[id number] SEX:M :1995 AGE: 29 LOC:[facility] PCP: Rosario Escalera DO /deanna/ YVROSE KEBEDE PATHOLOGIST Signed: 09/22/2024 11:35 YVROSE KEBEDE [facility] Sep 08, 2024 10:46 AM LR SURGICAL [...] Flow Cytometry RLLYMP Reflex report performed by [facility], [facility] Pathology and [facility] [place], [address] [place], [place] [id number], specimen #[id number], electronically signed by Fadia Pizarro M.D. FLOW [...] RPMI and sent for flow cytometry at [facility]. The remainder of the specimen is submitted in 1 cassette. PIERRE /deanna/ YVROSE KEBEDE PATHOLOGIST Signed Sep 08, 2024@10:46 Performing Laboratory: Surgical Pathology Report Performed By: [facility] [CLIA# [id number]] [address] [place] [address] $FTR - - - - - - - - - - - - - - - - - - - - - - - - - - - - - - - - - - - - - - - - (End of report) YVROSE KEBEDE [facility] Date Sep 08, 2024 - - - - - - - - - - - - - - - - - - - - - - - - - - - - - - - - - - - - - - - - MARION SANTACRUZ STANDARD FORM 515 ID:[id number] SEX:M :1995 AGE: 29 LOC:[facility] PCP: Rosario Escalera DO /deanna/ YVROSE KEBEDE PATHOLOGIST Signed: 09/08/2024 10:46 YVROSE KEBEDE [facility] Encounter Notes: All associated encounter notes This section contains the clinical notes associated to the Encounter. Date/Time Encounter Note(s) Provider Source Sep 25, 2024 12:53 PM OTOLARYNGOLOGY ATT ENDING NOTE: LOCAL TITLE: ENT ATTENDING STAFF NOTE STANDARD TITLE: OTOLARYNGOLOGY ATTENDING NOTE DATE OF NOTE: SEP 25, 2024@12:53 ENTRY DATE: SEP 25, 2024@12:53:32 AUTHOR: BHARATHI JOHSN EXP COSIGNER: URGENCY: STATUS: COMPLETED ENT ATTENDING STAFF NOTE Has ADDENDA ENT POSTOPERATIVE NOTE S: Mr Santacruz presents for his first postoperative visit after bilateral myringotomy, bilateral ITR, and adenoidectomy on 09/05/24. Pain initially was controlled however he had increased pain about 5 days after surgery prompting a trip to an outside ED. Since that time, he has had improvement in pain. He reports significantly improved nasal breathing. His hearing is better as well. He is bothered by some thick postnasal drainage. O: Focused nasal exam Gen: Alert and oriented Ears: TM healed from myringotomy, intact without effusion or retraction, normal mobility Nose: Turbinates well lateralized. mild crusting right nasal passage Oral: postnasal drainage noted A/P: Mr Santacruz is s/p b/l myringotomy, ITR, and adenoidectomy on 09/05/24. No complications noted from the procedure. He has thick postnasal drainage today and some crusting in the anterior nasal cavity and thus I would like him to start saline irrigations. He reports that he has these at home. -Saline irrigations daily -RTC 3 months Bharathi Johns MD Attending Physician Otolaryngology /deanna/ BHARATHI JOHNS HYDROELECTRIC SYSTEMS TECHNICIAN Signed: 09/25/2024 17:04 09/25/2024 ADDENDUM STATUS: COMPLETED Of note, the pathology was reviewed with the patient which showed only reactive lymphoid hyperplasia. /deanna/ BHARATHI JOHNS HYDROELECTRIC SYSTEMS TECHNICIAN Signed: 09/25/2024 17:06 BHARATHI JOHNS [facility]
--- OUTSIDE RECORDS SUMMARY | 2024-09-26 11:00 | XMS_ITS ---
Author Name Department of Veter[facility] [place] Affairs [place] Organization [place] Address [address] [place] [address] Care Team Providers Care Rubber Compounder Name Role Phone ROSARIO ESCALERA Primary Care [...] Type Encounter Description Reason Provider Source Sep 26, 2024 03:00 PM PAVING AND SURFACING LABOURER [facility] INDIVIDU PAVING AND SURFACING LABOURER SERVICE - INDIVIDUAL ICD-10-CM Z71.81 Spiritual or mandaen counseling BLADIMIR VENCES Encounter Template Text not used by [place] Assessments - Encounter Diagnoses This section includes the primary and secondary diagnoses documented for the Encounter. Date/Time Primary/Secondary Diagnosis Diagnosis Name Provider Source Sep 26, 2024 04:36 PM PRIMARY Spiritual or mandaen counseling BLADIMIR VENCES [facility] Plan of Treatment: Future Appointments (+ [...] 20 appointments. The data comes from all [facility]. Appointment Date/Time Appointment Type Appointme nt Facility Name Oct 03, 2024 01:00 PM AMBULATORY - REHAB MEDICIN E [facility] October 21, 2024 03:00 PM AMBULATORY - PSYCHIATRY [facility] November 03, 2024 02:30 PM AMBULATORY - PSYCHIATRY [facility] November 04, 2024 02:30 PM AMBULATORY - SURGERY [facility] November 11, 2024 09:00 AM AMBULATORY - NONE [facility] November 13, 2024 02:00 PM AMBULATORY - NONE [facility] Nov 17, 2024 11:00 AM AMBULATORY - PSYCHIATRY [facility] Dec 01, 2024 08:30 AM AMBULATORY - PSYCHIATRY [facility] Dec 01, 2024 01:00 PM [facility] Dec 03, 2024 03:00 PM [facility] Dec 08, 2024 03:30 PM AMBULATORY - PSYCHIATRY CL [facility] Dec 11, 2024 11:00 AM [facility]ONE [facility] Dec 15, 2024 09:30 AM AMBULATORY - PSYCHIATRY CL [facility] Dec 15, 2024 09:45 AM AMBULATORY - NONE [facility] Dec 22, 2024 01:30 PM AMBULATORY - NONE [facility] Dec 24, 2024 02:30 PM AMBULATORY - SURGERY [facility] Dec 30, 2024 01:00 PM AMBULATORY - PSYCHIATRY [facility] Jan 20, 2025 09:00 AM AMBULATORY - NONE [facility] Active, Pending, and Scheduled Orders This section includes a listing of several types of active, pending, and scheduled orders, including clinic medications orders, diagnostic test orders, procedure orders and consult orders; where the start date of the order is 45 days before the date of the Encounter or 45 days after the date of theEncounter. The data comes from all [facility]. Test Date/Time Test Type Test Details Facility Name October 18, 2024 12:00 AM Laboratory - Chemi stry Order SEMEN ANALYSIS (POST-VAS) QUALITATIVE SEMINAL FLUID SP [facility] November 04, 2024 03:35 PM Consult Order COMMUNITY CARE-CHIROPRACTIC Cons Banquet Waiter/Waitress's Choice [facility] Social History: Smoking Status (Most current) [...] 10:00 AM TOBACCO CURRENT USER daily vape [facility] Tobacco Use History This section includes a history of the smoking, or tobacco-related health factors, that were collected on or before the date of the Encounter. The data comes from the [place] facility where the Encounter took place. Date/Time Smoking Status/Tobacco Use Comment F acility Jun 06, 2024 11:30 AM VA-TOBACCO SCREEN FOLLOW-UP [facility] Jun 06, 2024 11:30 AM VA-TOBACCO USE ADVICE [facility] Jun 06, 2024 11:30 AM VA-TOBACCO USE [facility] [facility] NO [facility] Jun 06, 2024 11:30 AM VA-TOBACCO USE EVERY DAY CIGARET MANNY [facility] Jun 06, 2024 11:30 AM VA-TOBACCO USE EVERY DAY ENDS [facility] Jun 06, 2024 11:30 AM VA-TOBACCO USE EVERY DAY OTHER T YPE [facility] Jun 06, 2024 11:30 AM VA-TOBACCO USE MED [facility] Jun 19, 2023 10:00 AM TOBACCO FORMER USER MORE 12 [facility] Advance Directives: All historical and current Section [...] ADVANCE DIRECTIVE DISCUSSION SABINA NAIR [facility] Pathology Reports: +/- 30 days of the [...] comes from all [place] treatment facilities. Date/Time Pathology Report Provider Source [...] Flow Cytometry RLLYMP Reflex report performed by [facility] [place], [address] [place] [address], specimen #[id number], electronically signed by Fadia Pizarro M.D. FLOW [...] RPMI and sent for flow cytometry at [facility]. The remainder of the specimen is submitted in 1 cassette. SUPPLEMENTARY REPORT(S): Supplementary Report Date: SEP 22, 2024 *+* SUPPLEMENTARY REPORT HAS BEEN ADDED/MODIFIED *+* (Added/Last released: Sep 22, 2024 11:19 Signed by YVROSE KEBEDE) Surgical Pathology report performed by [facility] [place], [address] [place], [place] [id number], specimen #[id number], electronically signed by Sarah Merritt M.D., Ph.D. FINAL DIAGNOSIS A. OUTSIDE MATERIALS RECEIVED FROM [facility], [place], [place] (EXTERNAL ID SP-CL [id number], 09/05/2024): ADENOID BIOPSY: - REACTIVE LYMPHOID TISSUE, SEE COMMENT. SEE COMPLETE REPORT(S) IN [place] /deanna/ YVROSE KEBEDE PATHOLOGIST Signed Sep 22, 2024@11:35 Performing Laboratory: Surgical Pathology Report Performed By: [facility] [CLIA# [id number]] [address] [place] [address] $FTR - - - - - - [...] - - MARION ZHENG STANDARD FORM 515 ID:[id number] SEX:M :1995 AGE: 29 LOC[facility] PCP: Rosario Escalera DO /deanna/ YVROSE KEBEDE PATHOLOGIST Signed: 09/22/2024 11:[address] [facility] Sep 08, 2024 10:46 AM LR [...] - PATHOLOGY REPORT Accession No. [id number] - - - - - - - - - - - - - - - - - - - - - - - - - - - - - - - - - - - - - - - Diagnosis Flow Cytometry RLLYMP Reflex report performed by [facility], [facility] [place], [address] [place] [address], specimen #[id number], electronically signed by Fadia Pizarro M.D. FLOW [...] RPMI and sent for flow cytometry at [facility]. The remainder of the specimen is submitted in 1 cassette. PIERRE gonzalez/ YVROSE KEBEDE PATHOLOGIST Signed Sep 08, 2024@10:46 Performing Laboratory: Surgical Pathology Report Performed By: [facility] [CLIA# [id number]] [address] [place] [address] $FTR - - - - - - - - - - - - - - - - - - - - - - - - - - - - - - - - - - - - - - - - (End of report) YVROSE KEBEDE [facility] Date Sep 08, 2024 - - - - - - - - - - - - - - - - - - - - - - - - - - - - - - - - - - - - - - - - MARION ZHENG STANDARD FORM 515 ID:[id number] SEX:M :1995 AGE: 29 LOC:[facility] PCP: DO chirag Lara PATHOLOGIST Signed: 09/08/2024 10:[address] [facility] Encounter Notes: All associated encounter notes This section contains the clinical notes associated to the Encounter. Date/Time Encounter Note(s) Provider Source Sep 26, 2024 03:00 PM PASTORAL CARE NOTE : LOCAL TITLE: PAVING AND SURFACING LABOURER NOTE (T) STANDARD TITLE: PASTORAL CARE NOTE DATE OF NOTE: SEP 26, 2024@15:00 ENTRY DATE: SEP 26, 2024@16:29:10 AUTHOR: BLADIMIR VENCES COSIGNER: URGENCY: STATUS: COMPLETED logged into [facility] for individual grief support appointment and was open/receptive. Stafford focused on receiving a long letter from his housemate that long & hurtful (on the day of his son's birthday, before the celebration could start). explored his reaction & feelings. named feeling disoriented and disregulated. noted tapping into his katz-mind to consider the consequences of his thoughts and decision making. Stafford focused on expanding the ways he could engage his housemates about this letter in a way that expands outcome options and possibly lead to a stronger relationship. Stafford also explored his fears of raising his son without help, shoring up his [place] of supports, and exploring his foundational values & goals that has more skills than he realizes. Interventions: presence, active listening, reflective questions, dealing with conflict, working with triggers, hurt, & anger, expansive thinking, values, encouragement, validation, support. Plan: Stafford requested appointment by [facility] for 10/16/24 @ 2pm. expressed gratitude. /deanna/ CHAPLAIN BLADIMIR CARLIN Signed: 09/26/2024 16:[address] [facility]
--- OUTSIDE RECORDS SUMMARY | 2024-10-21 11:00 | XMS_ITS | Encounter Summary ---
Author Name [facility] [place] Organization [place] Address [address] [place] [address] Care Team Providers Care Bingo Cashier Name Role Phone ROSARIO ESCALERA Primary Care [...] Encounter Type Encounter Description Reason Provider Source October 21, 2024 03:00 PM MTMS BY LISA LÓPEZ 15 MIN [facility] - IND ICD-10-CM F43.12 Post-traumatic stress disorder, chronic VALENTINA TENORIO Encounter Template Text not used by [place] Assessments - Encounter Diagnoses This section includes the primary and secondary diagnoses documented for the Encounter. Date/Time Primary/Secondary Diagnosis Diagnosis Name Provider Source October 22, 2024 03:11 PM PRIMARY Post-traumatic stress disorder, chronic VALENTINA TENORIO October 22, 2024 03:11 PM SECONDARY Major depressive disorder, recurrent, moderate VALENTINA TENORIO CB October 22, 2024 03:11 PM SECONDARY Personality disorder, unspecified WILLBORN,VALENTINA T Flavio QUIGLEY CB October 22, 2024 03:11 PM SECONDARY Primary insomnia VALENTINA TENORIO Flavio QUIGLEY CB October 22, 2024 03:11 PM SECONDARY Suicidal ideations VALENTINA TENORIO DANN CB October 22, 2024 03:11 PM SECONDARY Tobacco use VALENTINA TENORIO Flavio QUIGLEY [facility] Plan of Treatment: Future Appointments (+ 6 months) and Future Tests (+/- 45 days) The Plan of Treatment section includes future care activities for the patient from all [place] [facility]. This section includes future appointments and future orders which are active, pending or scheduled. Future Appointments This section includes appointments that were scheduled to occur 6 months from the date of the Encounter, up to a maximum of 20 appointments. The data comes from all [place] treatment facilities. Appointment Date/Time Appointment Type Appointme nt Facility Name November 03, 2024 02:30 PM AMBULATORY - PSYCHIATRY CL [facility] November 04, 2024 02:30 PM AMBULATORY - SURGERY [facility] November 11, 2024 09:00 AM AM[facility]ULATORY - NONE [facility] November 13, 2024 02:00 PM AMBULATORY - NONE [facility] Nov 17, 2024 11:00 AM AMBULATORY - PSYCHIATRY CL [facility] Dec 01, 2024 08:30 AM AMBULATORY - PSYCHIATRY CL [facility] Dec 01, 2024 01:00 PM AMBULATORY - NONE [facility] Dec 03, 2024 03:00 PM AMBULATORY - NONE [facility] Dec 08, 2024 03:30 PM AMBULATORY - PSYCHIATRY CL [facility] Dec 11, 2024 11:00 AM AMBULATORY - NONE [facility] Dec 15, 2024 09:30 AM AMBULATORY - PSYCHIATRY CL [facility] Dec 15, 2024 09:45 AM AMBULATORY - NONE [facility] Dec 22, 2024 01:30 PM AMBULATORY - NONE [facility] Dec 24, 2024 02:30 PM [facility]ORY [facility] Dec 30, 2024 01:00 PM AMBULATORY - PSYCHIATRY CL [facility] Jan 20, 2025 09:00 AM AMBULATORY - NONE [facility] Active, Pending, and Scheduled Orders This section includes a listing of several types of active, pending, and scheduled orders, including clinic medications orders, diagnostic test orders, procedure orders and consult orders; where the start date of the order is 45 days before the date of the Encounter or 45 days after the date of theEncounter. The data comes from all [place] treatment facilities. Test Date/Time Test Type Test Details Facility Name October 18, 2024 12:00 AM Laboratory - Chemi stry Order SEMEN ANALYSIS (POST-VAS) QUALITATIVE SEMINAL FLUID SP [facility] November 04, 2024 03:35 PM Consult Order COMMUNITY CARE-CHIROPRACTIC Cons Mixing Machine Attendant's [facility] November 13, 2024 04:16 PM Consult Order COMMUNITY [facility]-DENTAL Cons Mixing Machine Attendant's [facility] Social History: Smoking Status (Most current) and [...] Facil ity May 18, 2023 02:00 PM [place] Tobacco Use History This section includes a history of the smoking, or tobacco-related health factors, that were collected on or before the date of the Encounter. The data comes from the [place] facility where the Encounter took place. Date/Time Smoking Status/Tobacco Use Comment F acility May 18, 2023 02:00 PM HI-TOBACCO QUIT 1 TO < 5 YRS [facility] Advance Directives: All historical and [...] the Encounter. The data comes from all [place] treatment facilities. Date/Time Pathology Report Provider Source [...] by [facility] and Laboratory [facility], [address] [place] [address], specimen #[id number], electronically signed by Fadia Pizarro M.D. FLOW [...] RPMI and sent for flow cytometry at [facility]. The remainder of the specimen is submitted in 1 cassette. SUPPLEMENTARY REPORT(S): Supplementary Report Date: SEP 22, 2024 *+* SUPPLEMENTARY REPORT HAS BEEN ADDED/MODIFIED *+* (Added/Last released: Sep 22, 2024 11:19 Signed by YVROSE KEBEDE) Surgical Pathology report performed by [facility], [address] [place] [address], specimen #[id number], electronically signed by Sarah Merritt M.D., Ph.D. FINAL DIAGNOSIS A. OUTSIDE MATERIALS RECEIVED FROM [facility], [place], [place] (EXTERNAL ID [id number], 09/05/2024): ADENOID BIOPSY: - REACTIVE LYMPHOID TISSUE, SEE COMMENT. SEE COMPLETE REPORT(S) IN [facility] /deanna/ YVROSE KEBEDE PATHOLOGIST Signed Sep 22, 2024@11:35 Performing Laboratory: Surgical Pathology Report Performed By: [facility] [CLIA# [id number]] [address] [place] [address] $FTR - - - - - - - - - - - - - - - - - - - - - - - - - - - - - - - - - - - - - - - - (End of report) YVROSE KEBEDE [facility] Date Sep 08, 2024 - - - - - - - - - - - - - - - - - - - - - - - - - - - - - - - - - - - - - - - - MARION ZHENG STANDARD FORM 515 ID:[id number] SEX:M :1995 AGE: 29 LOC:[facility] PCP: Rosario Escalera DO /deanna/ YVROSE KEBEDE PATHOLOGIST Signed: 09/22/2024 11:35 YVROSE KEBEDE [facility] Encounter Notes: All associated encounter notes This section contains the clinical notes associated to the Encounter. Date/Time Encounter Note(s) Provider Source October 21, 2024 02:59 PM PRIMARY CARE MAVERICK MAHONEY NOTE: LOCAL TITLE: OUTPATIENT NURSING INTAKE NOTE (T) STANDARD TITLE: PRIMARY CARE NURSING NOTE DATE OF NOTE: OCTOBER 21, 2024@14:59 ENTRY DATE: OCTOBER 21, 2024@14:59:49 AUTHOR: BLANK MENG EXP COSIGNER: URGENCY: STATUS: [...] problems with drugs and/or alcohol? No 5. [place] Crisis Line pocket card was provided to patient. No/patient declined [facility] not documented this visit. /deanna/ BLANK MENG LICENSED PRACTICAL NURSE Signed: 10/21/2024 15:00 BLANK MENG [facility] October 21, 2024 02:56 PM PSYCHIATRY NOTE: LOCAL TITLE: [facility] PSYCHIATRY NOTE (T) STANDARD TITLE: PSYCHIATRY NOTE DATE OF NOTE: OCTOBER 21, 2024@14:56 ENTRY DATE: OCTOBER 21, 2024@14:56:34 AUTHOR: ABAD TENORIO COSIGNER: URGENCY: STATUS: COMPLETED PSYCHIATRIC EVALUATION NOTE Time in: 1457 Time out: 1530 Total time: 33 min AI is a 29yom w/ a MH h/o PTSD, depressive DO unspecified, personality DO unspecified, and insomnia. Chart and available information reviewed. CC: planning to try the medication HPI: Marion was last interviewed 08/27/24 where he discussed his ENT engagement and upcoming surgery, also [...] . Confirmed that medication nonadherence was all-inclusive. In the absence of sertraline use, his sleep had been reportedly okay. Getting into better moods, better habits, out of the funk.. I'm sleeping about the same as I was with the sertraline . Discussed his goals at this time and reviewed our ability to maintain medication disuse with monitoring. He stated an interest to evaluate and alternative agent, and we discussed this relative to his prior trials and existing formulary and non-formulary options. Collaboratively elected alternative and planned to trial following surgery. seen for F2F appt as planned, accompanied by his son, Shoaib. Discussed his ENT intervention as having been very successful. I can smell and hear, I can sleep better, it's all good . His sleep has been a mixed bag since, and discussed behavioral (playing games late with friends online) and stress influencing. I had to ask my roommates to move out , and discussed how this occurred shortly after his surgery, leading to much adjustment and stress, during which he had not elected to trial medication as previously planned. Cited a breakdown in communication leading to this, after having received a seven page letter from roommate, essentially airing grievances. I was in a lose-lose situation, I could either accept the ultimatum or do what I did . Cited feeling irritated by this letter, and felt that he took time to think through his response. Interactions with Himanshu are at least amicable, as they continue to move out possessions. Financially managing for now, although this will be a change with roommates moving out. Feels that he has been managing stress as best as he can; the first few days was a rollercoaster of emotions, feeling all over the place.. I've felt relieved since, I don't feel stressed.. I've been keeping up on the home and feeling motivated for that . Feeling rested and feeling well generally. Energy has been well. Discussed how his son has been bringing up what happened with spouse's passing, which is a gut punch every time . Trying to navigate this, and contemplating resuming son's therapy engagement. We will await trial of medication, at his comfort, and review perceptions of this on follow-up. Denied questions or concerns with this plan. Denied SI/HI. SUBSTANCE USE HX: Nicotine- vaped nicotine; deferred cessation interest at this time Alcohol- denied Illicit- denied PSYCHIATRIC MEDICATION HISTORY: According to CPRS and JLV remote data of [place] outpatient Rx, the pt has a h/o TRAZODONE (non-VA); ESCITALOPRAM (up to 20mg daily, non-VA); HYDROXYZINE (25mg PRN anxiety, non-VA); SERTRALINE. FLUOXETINE (20mg non-VA); ARIPIPRAZOLE (2mg non-VA). Since engagement with this insurance writer: SERTRALINE; LITHIUM. VENLAFAXINE. ALLERGIES/ADVERSE REACTIONS Type: [...] EACH NOSTRIL EVERY DAY NASAL CONGESTION LABS: ALBUMIN: 5.0 (08/27/24 14:35) PLASMA ANION GAP:13 (06/19/24 09:49) PLASMA BUN: 12.0 (06/19/24 09:49) PLASMA CA: 9.5 (06/19/24 09:49) PLASMA CL: 107 (06/19/24 09:49) PLASMA CO2: 21 (06/19/24 09:49) PLASMA CREA: 1.0 (06/19/24 09:49) PLASMA EGFR: 104.0 (06/19/24 09:49) PLASMA GLUCOSE: 94 (06/19/24 09:49) PLASMA K: 4.3 (06/19/24 09:49) PLASMA NA: 137 (06/19/24 09:49) PLASMA ALBUMIN: 5.0 (08/27/24 14:35) PLASMA ALKPHOS: 72 (08/27/24 14:35) PLASMA ALT/SGPT: 27 (08/27/24 14:35) PLASMA AST/SGOT: 25 (08/27/24 14:35) PLASMA BILI DIR: 0.1 (08/27/24 14:35) PLASMA BILI T: 0.4 (08/27/24 14:35) PLASMA T PROTEIN:8.1 (08/27/24 14:35) PLASMA TSH: 4.701 (06/19/24 09:49) PLASMA Vitals: T: 97.1 F [36.2 C] (10/21/2024 14:55) P: 94 (10/21/2024 14:55) R: 16 (10/21/2024 14:55) BP: 128/70 (10/21/2024 14:55) W: 183 lb [83.01 kg] (10/21/2024 14:55) BMI: 26.3 Mental Status Exam: Kacy: 29yom who appears stated age, dressed in casual [...] of violence towards others is considered: low [place] made no comments during our conversation that were concerning and/or would suggest that the is at elevated imminent risk of harm to self or others ASSESSMENT: [place] with PTSD, depressive DO unspecified, personality DO [...] durability of benefit and adherence influencing. We previously discussed trialing alternative, and he is now ready to pursue this. PLAN: -> PTSD, depressive DO unspecified: - offered supportive listening and encouraged to optimize both medication and counseling therapies - trial duloxetine 20mg QAM -> monitor: mood, sleep, anxiety, SUDHEER -> [...] list of medications. /deanna/ ABAD TENORIO CLINICAL GIS MAPPING TECHNICIAN Signed: 10/22/2024 15:11 ABAD TENORIO OC
--- OUTSIDE RECORDS SUMMARY | 2024-11-03 10:30 | XMS_ITS | Encounter Summary ---
Author Name [facility] [place] Address [address] [place] [address] Care Team Providers Care Special Events Fundraiser Name Role Phone ROSARIO ESCALERA Primary Care [...] section includes the information on record at [place] for the Encounter. Date/Time Encounter Type Encounter Description Reason Provider Source November 03, 2024 02:30 PM EDU&TRN PT SELF-MGMT NQHP 1 [facility] - IND ICD-10-CM F43.12 Post-traumatic stress disorder, chronic ADDIS CLOUD Encounter Template Text not used by [place] Assessments - Encounter Diagnoses This section includes the primary and secondary diagnoses documented for the Encounter. Date/Time Primary/Secondary Diagnosis Diagnosis Name Provider Source November 03, 2024 03:49 PM PRIMARY Post-traumatic stress disorder, chronic ADDIS CLOUD CB November 03, 2024 03:49 PM SECONDARY Disappearance and of family member ADDIS CLOUD CB November 03, 2024 03:49 PM SECONDARY Major depressive disorder, recurrent, moderate ADDIS CLOUD [facility] November 03, 2024 03:49 PM SECONDARY Other specified problems related to upbringing ADDIS CLOUD [facility] November 03, 2024 03:49 PM SECONDARY Parent-biological child conflict ADDIS CLOUD [facility] November 03, 2024 03:49 PM SECONDARY Personality disorder, unspecified ADDIS CLOUD [facility] November 03, 2024 03:49 PM SECONDARY Primary insomnia ADDIS CLOUD [facility] Plan of Treatment: Future Appointments (+ 6 months) and Future Tests (+/- 45 days) The Plan of Treatment section includes future care activities for the patient from all [place] [facility]. This section includes future appointments and future orders which are active, pending or scheduled. Future Appointments This section includes appointments that were scheduled to occur 6 months from the date of the Encounter, up to a maximum of 20 appointments. The data comes from all [facility] facilities. Appointment Date/Time Appointment Type Appointme nt Facility Name November 04, 2024 02:30 PM AMBULATORY - SURGERY [facility] November 11, 2024 09:00 AM AMBULATORY - NONE [facility] November 13, 2024 02:00 PM AMBULATORY - NONE [facility] Nov 17, 2024 11:00 AM AMBULATORY - PSYCHIATRY CL [facility] Dec 01, 2024 08:30 AM AMBULATORY - PSYCHIATRY CL [facility] Dec 01, 2024 01:00 PM AMBULATORY - NONE [facility] Dec 03, 2024 03:00 PM AMBULATORY - NONE [facility] Dec 08, 2024 03:30 PM AMBULATORY - PSYCHIATRY CL [facility] Dec 11, 2024 11:00 AM AMBULATORY - NONE [facility] Dec 15, 2024 09:30 AM AMBULATORY - PSYCHIATRY CL [facility] Dec 15, 2024 09:45 AM AMBULATORY - NONE [facility] Dec 22, 2024 01:30 PM AMBULATORY - NONE [facility] Dec 24, 2024 02:30 PM [facility] Dec 30, 2024 01:00 PM AMBULATORY - PSYCHIATRY CL [facility] Jan 20, 2025 09:00 AM AMBULATORY - NONE [facility] Active, Pending, and [...] of theEncounter. The data comes from all [place] treatment facilities. Test Date/Time Test Type Test Details Facility Name October 18, 2024 12:00 AM Laboratory - Chemi stry Order SEMEN ANALYSIS (POST-VAS) QUALITATIVE SEMINAL FLUID SP [facility] November 04, 2024 03:35 PM Consult Order COMMUNITY CARE-CHIROPRACTIC Cons Oil [employer] Gas Exploration Technician's [facility] November 13, 2024 04:16 PM Consult Order COMMUN[facility]ARE[facility] Dec 09, 2024 09:45 AM Consult Order COMMUNITY CARE-DENTAL Cons [facility] Dec 09, 2024 11:35 AM Consult Order COMMUNITY CARE[facility]DENTAL Cons [facility] Social History: Smoking Status (Most current) and Tobacco Use (All prior to encounter date) This section includes the most current, and the historical, smoking and tobacco- related health factors from the [place] facility where the Encounter took place. Current Smoking Status This section includes the most current smoking, or tobacco-related health factor, from the [place] facility where the Encounter took place. Date/Time Current Smoking Status Comment Facil ity May 18, 2023 02:00 PM [place]-TOBACCO QUIT 1 TO < 5 YRS [facility] Tobacco Use History This section includes a history of the smoking, or tobacco-related health factors, that were collected on or before the date of the Encounter. The data comes from the [place] facility where the Encounter took place. Date/Time Smoking Status/Tobacco Use Comment F acility May 18, 2023 02:00 PM FL-TOBACCO QUIT 1 TO < 5 YRS [facility] Advance Directives: All historical and current Section Date Range: From patient's date of to the date document was created. This section includes ALL of a patient's completed or amended [place] Advance and Rescinded Directives. The entries below indicate that a directive exists for the patient, but an actual copy is not included with this document. The data comes from all [place] facilities. Date Advance Directives Provider Source October 22, 2023 ADVANCE DIRECTIVE DISCUSSION SABINA NAIR [facility] Encounter Notes: All associated encounter notes This section contains the clinical notes associated to the Encounter. Date/Time Encounter Note(s) Provider Source November 03, 2024 08:16 AM MENTAL HEALTH COUN SELING NOTE: LOCAL TITLE: PSYCHIATRY PSYCHOTHERAPY INDIVIDUAL NOTE (T) STANDARD TITLE: MENTAL HEALTH COUNSELING NOTE DATE OF NOTE: NOVEMBER 03, 2024@08:16 ENTRY DATE: NOVEMBER 03, 2024@08:16:24 AUTHOR: ADDIS CLOUD COSIGNER: URGENCY: STATUS: COMPLETED Session Time and Duration: 2:33 Pm - 3:35 Pm 62 minutes MH assessment: 02.09.2023 Updated MH assessment: 08.28.2024 DIAGNOSIS: PTSD (SC); Insomnia; MDD, recurrent, moderate; Personality D/O, Cluster B traits; Relationship Stressors; Grief STRENGTHS: Self-Identified: trying to be more active w/the children went for a walk w/the kids earlier this week Provider Identified: Active partnership in [employer] PATIENT'S ABILITIES 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 Goal: I want to learn how to approach my life in a more even and flexible way. Goal: Increase Roxie's ability to make sense of traumatic experiences, and feel the natural emotions associated with them. Goal: I want to improve quantity and quality of sleep. PROGRESS TOWARDS GOAL: Minimal progress clinical reminders due: None TYPES OF THERAPY: Individual METHOD OF THERAPY: Stress Mgmt. Roxie is 29 y/o male w/100% SC being treated in Specialty for therapy. He presents on time to scheduled in person therapy appt w/his minor son whom he is attentive to during appt. Roxie identifies his roommates moved out and shares events since this time frame. He identifies he had already recognized c/o w/his patterns and planned to make changes prior to r/c their letter. He reports initially doing well w/routine but some return of depression this past week. He identifies he is engaged w/son and meeting his needs but also struggling to connect d/t resemblance to his mother. Son has not returned to therapy and is not in extracurricular activities d/t reevaluating his budget w/o roommates financial contribution. He is going to utilize [employer] this summer. They review VSO support as well. He has connected to his aunt and father and they discuss support opportunities in these relationships. They process stuck points from 's childhood and grief. Review of adult coloring book and how to utilize for self and w/his son. would like to meet again in 2-3 weeks. Roxie is calm and stable at the end of the session with no SI/HI noted. INTERVENTIONS: Assessed mental health status and reviewed events since last session. SW assesses SI/HI. SW reviews the goals for session. SW offers emotional support and uses active listening. SW reviews distress tolerance skills. SW reviews cognitive behavioral skills w/encouragement of routine to include play/pleasant activities w/his son. SW promotes processing of stuck points w/grief support offered. 'S PARTICIPATION: x Actively participated in discussion Has a better understanding of therapeutic issues x Understood or demonstrated a new strategy/skill x Willing to practice discussed strategy/skill x Agrees to continue working towards treatment goals PLAN/HOMEWORK: 1. to follow up with this SW for therapy 2. Roxie to call clinic/VCL as needed in between sessions 3. medication mgmt. as scheduled 4. to follow Suicide Prevention plan from Mar 23, 2023. 5. CBTI w/Sleep Clinic as scheduled 6. VA Chiller Operator as scheduled MENTAL STATUS EXAM: ORIENTATION AND CONSCIOUSNESS: Alert and attentive, Alert and oriented x 3 APPEARANCE AND BEHAVIOR: Cooperative and reasonable, walks independently, well kempt Comments: Minor son is present in appt and Roxie is attentive to him as needed in appt. Minor son calls Roxie by formal name and confirms he always has done this but accepting of being referenced by dad. SPEECH: Normal rate/rhythm LANGUAGE: Intact MOOD AND AFFECT: Mood Depressed, Affect w/minimal range; restricted tearfulness as they discuss grief/relationship w/his son PERCEPTUAL DISTURBANCE (Hallucinations, Illusions): None THOUGHT PROCESS [...] Treatment Will follow up with the monthly Roxie is aware to contact the clinic or the [place] Crisis Line with concerns prior to the next scheduled visit. [facility] approaches used during this visit: Expressive Arts Expressive Arts is a discipline of helping and healing that uses the arts as its basis for discovery and change. All five disciplines of the arts: visual, dance/movement, music, drama/theater, and writing/poetry help open the senses and assist patients in accessing their imagination, so they can find their own resources that they hold within themselves. Comment: [facility] Coloring book provided and benefits reviewed /deanna/ ADDIS HARDY CLINICIAL STUDIO CONTROL OPERATOR Signed: 11/04/2024 08:31 ADDIS CLOUD [facility]
--- OUTSIDE RECORDS SUMMARY | 2024-11-04 10:30 | XMS_ITS | Encounter Summary ---
Author Name [facility] [place] Organization [facility] Address [address] [place] [address] Care Team Providers Care [facility] Administrator Name Role Phone ROSARIO ESCALERA Primary Care [...] Type Encounter Description Reason Provider Source November 04, 2024 02:30 PM OFFICE O/P EST LOW 20 MIN NEUROSURGERY ICD-10-CM M54.2 Cervicalgia ROHAN VINSON Sonya Encounter Template Text not used by [place] Assessments - Encounter Diagnoses This section includes the primary and secondary diagnoses documented for the Encounter. Date/Time Primary/Secondary Diagnosis Diagnosis Name Provider Source November 04, 2024 03:28 PM PRIMARY Cervicalgia QUETA VINSON [facility] Plan of Treatment: Future Appointments [...] comes from all [facility]. Appointment Date/Time Appointment Type Appointme nt Facility Name November 11, 2024 09:00 AM AMBULATORY - NONE [facility] November 13, 2024 02:00 PM AMBULATORY - NONE [facility] Nov 17, 2024 11:00 AM AMBULATORY - PSYCHIATRY [facility] Dec 01, 2024 08:30 AM AMBULATORY - PSYCHIATRY CL [facility] Dec 01, 2024 01:00 PM [facility]ORY [facility] NONE [facility] Dec 03, 2024 03:00 PM AMBULATORY - NONE [facility] Dec 08, 2024 03:30 PM AMBULATORY - PSYCHIATRY CL [facility] Dec 11, 2024 11:00 AM AMBULATORY - NONE [facility] Dec 15, 2024 09:30 AM AMBULATORY - PSYCHIATRY CL [facility] Dec 15, 2024 09:45 AM AMBULATORY - NONE [facility] Dec 22, 2024 01:30 PM AMBULATORY - NONE [facility] Dec 24, 2024 02:30 PM AMBULATORY - SURGERY [facility] Dec 30, 2024 01:00 PM AMBULATORY - PSYCHIATRY CL [facility] Jan 20, 2025 09:00 AM AMBULATORY - NONE [facility] Active, Pending, and Scheduled Orders This section includes a listing of several types of active, pending, and scheduled orders, including clinic medications orders, diagnostic test orders, procedure orders and consult orders; where the start date of the order is 45 days before the date of the Encounter or 45 days after the date of theEncounter. The data comes from all [facility]. Test Date/Time Test Type Test Details Facility Name October 18, 2024 12:00 AM Laboratory - Chemi stry Order SEMEN ANALYSIS (POST-VAS) QUALITATIVE SEMINAL FLUID SP [facility] November 04, 2024 03:35 PM Consult Order COMMUNITY CARE-CHIROPRACTIC Cons Diving Board Assembler's [facility] November 13, 2024 04:16 PM Consult Order COMMUNITY CARE-DENTAL Cons Diving Board Assembler[facility] Dec 09, 2024 09:45 AM Consult Order COMMUNITY CARE-DENTAL Cons Diving Board Assembler's [facility] Dec 09, 2024 11:35 AM Consult Order COMMUNITY CARE-DENTAL Cons Diving Board Assembler's Choice [facility] Vital Signs: All taken on the encounter date This section contains inpatient and outpatient Vital Signs collected on the date of the Encounter. Date/Time Temperature Pulse Blood Pressure Respiratory Rate SP02 Pain Height Weight Body Mass Index Source November 04, 2024 02:25 PM 97.2 95 112/73 95 0 180.56 26 [facility] Social History: Smoking Status (Most current) [...] 10:00 AM TOBACCO CURRENT USER daily vape [facility] Tobacco Use History This section includes a history of the smoking, or tobacco-related health factors, that were collected on or before the date of the Encounter. The data comes from the [place] facility where the Encounter took place. Date/Time Smoking Status/Tobacco Use Comment F acility Jun 06, 2024 11:30 AM VA-TOBACCO SCREEN FOLLOW-UP [facility] Jun 06, 2024 11:30 AM VA-TOBACCO USE ADVICE [facility] Jun 06, 2024 11:30 AM VA-TOBACCO USE ROTARY PLANER SET UP OPERATOR NO [facility] Jun 06, 2024 11:30 AM VA-TOBACCO USE EVERY DAY CIGARET MANNY [facility] Jun 06, 2024 11:30 AM VA-TOBACCO USE EVERY DAY ENDS [facility] Jun 06, 2024 11:30 AM VA-TOBACCO USE EVERY DAY OTHER T YPE [facility] Jun 06, 2024 11:30 AM VA-TOBACCO USE MED NO [facility] Jun 19, 2023 10:00 AM TOBACCO FORMER USER MORE 12 [facility] Advance Directives: All historical and current Section Date Range: From patient's date of to the date document was created. This section includes ALL of a patient's completed or amended [place] Advance and Rescinded Directives. The entries below indicate that a directive exists for the patient, but an actual copy is not included with this document. The data comes from all [place] facilities. Date Advance Directives Provider Source October 22, 2023 ADVANCE DIRECTIVE DISCUSSION SABINA NAIR [facility] Encounter Notes: All associated encounter notes This section contains the clinical notes associated to the Encounter. Date/Time Encounter Note(s) Provider Source November 04, 2024 02:52 PM SURGERY OUTPATIENT NOTE: LOCAL TITLE: SPINE NEUROSURGERY OUTPATIENT NOTE (T) STANDARD TITLE: SURGERY OUTPATIENT NOTE DATE OF NOTE: NOVEMBER 04, 2024@14:52 ENTRY DATE: NOVEMBER 04, 2024@14:52:45 AUTHOR: QUETA VINSON COSIGNER: URGENCY: STATUS: COMPLETED I am the Attending Physician. I had the opportunity to meet with Mr. Santacruz today in follow-up to review his electrodiagnostic test and his clinical examination. He states he continues to have intermittent numbness and tingling along the right medial forearm into the 3rd-5th digits in addition to episodes of right sided neck pain which extends in between the shoulders and into the right shoulder blade; there is no radiation along the right arm or hand. Mr. Santacruz denies extremity pain but admits the numbness and tingling occurs following activity. He states he has had chiropractic manipulation in the past which had transiently helped his neck pain. ACTIVE PROBLEM Tobacco use 07/11/2024 Migraine 06/25/2024 Exposure to potentially hazardous 10/10/2023 substance ([facility] [id number]) Suicidal thoughts 09/10/2023 Personality disorder 09/10/2023 H/O splenectomy 06/23/2023 Hereditary spherocytosis 05/21/2023 FH: Migraine 05/21/2023 Moderate recurrent major depression 08/28/2024 Chronic post-traumatic stress disorder 02/09/2023 Insomnia 02/09/2023 Surgery Date: 09/05/2024 Operative Proc(s): 21 ADENOIDECTOMY, BILATERAL INFERIOR TURBINATE REDUCTION, - ABLATE INF TURBINATE SUBMUC 22 BILATERAL MYRINGOTOMY Surgery Date: 07/21/2024 Operative Proc(s): 21 VASECTOMY [...] SPRAYS ACTIVE EACH NOSTRIL EVERY 2 HOURS ALLERGIES/ADVERSE REACTIONS Type: DRUG Date/Time Reactant Severity Reaction 02/15/2023 16:29 HYDROMORPHONE URTICARIA 02/15/2023 16:29 OXYCODONE NAUSEA AND VOMITING 02/15/2023 16:28 MORPHINE ANAPHYLAXIS RETIRED Physical Examination: In general, Mr. Santacruz is a well developed, well nourished gentleman in no apparent distress or discomfort. He is accompanied by his 4 year old son, Shoaib. Mr. Santacruz demonstrates full range of cervical motion without difficulty He has 5/5 strength of his upper extremities; there is no evidence of muscle atrophy or fasciculations Sensory examination demonstrates hypersensitivity to light touch along the medial right forearm extending just above the elbow. - Tinel's at the wrist and cubital tunnel; + paresthesias with light compression overlying the right medial epicondyle. - Danile's - L'hermitte's Gait: Steady, fluid and unassisted Impression: I personally reviewed Mr. 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 There was no evidence of ulnar neuropathy or radiculopathy. His cervical MRI (04/2024) demonstrates evidence of a disc bulge at C6-7 which effaces the thecal sac just medial to the nerve root. I explained to Mr. Santacruz his symptoms may be related to ulnar nerve irritation as he admits to leaning on his elbow quite a bit. I do not find true radicular symptoms that would be referable to a C7 root irritation. I recommended he try using a forearm sleeve to provide more protection to the ulnar nerve over the next 6 weeks; I will call him to determine if there was any impact on his sensory symptoms. Additionally, I recommended consultation with the chiropractic service for acupuncture to assist with his neck pain. I will determine if there are services in the [place] area and notify Mr. Santacruz. I have encouraged him to notify me if he notes any change in his symptoms. TOTAL TIME SPENT: Spent 20 minutes in care of this patient today including review of records, exam, and placing orders. /deanna/ QUETA VINSON NEUROSURGEON Signed: 11/04/2024 15:28 QUETA VINSON [facility]
--- OUTSIDE RECORDS SUMMARY | 2024-11-11 05:00 | XMS_ITS | Encounter Summary ---
Author Name [facility] Organization [facility] Address [address] [place] [address] Care Team Providers Care Truck Supervisor Name Role Phone ROSARIO ESCALERA Primary [...] section includes the information on record at [place] for the Encounter. Date/Time Encounter Type Encounter Description Reason Provider Source November 11, 2024 09:00 AM HEARING AID XM&SLCTN [facility] AUDIOLOGY ICD-10-CM H90.3 Sensorineural hearing loss, bilateral IAMMARINO,STANTON TLYN A IHE Encounter Template Text not used by [place] Assessments - Encounter Diagnoses This section includes the primary and secondary diagnoses documented for the Encounter. Date/Time Primary/Secondary Diagnosis Diagnosis Name Provider Source November 11, 2024 09:57 AM PRIMARY Sensorineural hearing loss, bilateral IAMMAKODAKO,KYRA Abbott [facility] November 11, 2024 09:57 AM SECONDARY Tinnitus, bilateral IAMMAKODAKO,KYRA Abbott [facility] Plan of Treatment: Future Appointments (+ 6 months) and Future Tests (+/- 45 days) The Plan of Treatment section includes future care activities for the patient from all [place] [facility]. This section includes future appointments and future orders which are active, pending or scheduled. Future Appointments This section includes appointments that were scheduled to occur 6 months from the date of the Encounter, up to a maximum of 20 appointments. The data comes from all [facility]. Appointment Date/Time Appointment Type Appointme nt Facility Name November 13, 2024 02:00 PM AMBULATORY - NONE [facility] Nov 17, 2024 11:00 AM AMBULATORY - PSYCHIATRY CL [facility] Dec 01, 2024 08:30 AM AMBULATORY - PSYCHIATRY CL [facility] Dec 01, 2024 01:00 PM [facility] Dec 03, 2024 03:00 PM [facility] Dec 08, 2024 03:30 PM AMBULATORY - PSYCHIATRY CL [facility] Dec 11, 2024 11:00 AM AMBULATORY - NONE [facility] Dec 15, 2024 09:30 AM AMBULATORY - PSYCHIATRY CL [facility] Dec 15, 2024 09:45 AM AMBULATORY - NONE [facility] Dec 22, 2024 01:30 PM [facility] Dec 24, 2024 02:30 PM AMBULATORY - SURGERY [facility] Dec 30, 2024 01:00 PM AMBULATORY - PSYCHIATRY CL [facility] Jan 20, 2025 09:00 AM AMBULATORY - NONE [facility] Active, Pending, and Scheduled Orders This section includes a listing of several types of active, pending, and scheduled orders, including clinic medications orders, diagnostic test orders, procedure orders and consult orders; where the start date of the order is 45 days before the date of the Encounter or 45 days after the date of theEncounter. The data comes from all [facility]. Test Date/Time Test Type Test Details Facility Name October 18, 2024 12:00 AM Laboratory - Chemi stry Order SEMEN ANALYSIS (POST-VAS) QUALITATIVE SEMINAL FLUID SP [facility] November 04, 2024 03:35 PM Consult Order COMMUNITY CARE-CHIROPRACTIC Cons Laundry Laborer's Choice [facility] November 13, 2024 04:16 PM Consult Order COMMUNITY CARE-DENTAL Cons Laundry Laborer's [facility] Dec 09, 2024 09:45 AM Consult Order COMMUNITY CARE-DENTAL Cons Laundry Laborer's [facility] Dec 09, 2024 11:35 AM Consult Order COMMUNITY CARE-DENTAL Cons Laundry Laborer's [facility] Advance Directives: All historical and current Section Date Range: From patient's date of to the date document was created. This section includes ALL of a patient's completed or amended [place] Advance and Rescinded Directives. The entries below indicate that a directive exists for the patient, but an actual copy is not included with this document. The [facility]. Date Advance Directives Provider Source October 22, 2023 ADVANCE DIRECTIVE DISCUSSION SABINA NAIR [facility] Encounter Notes: All associated encounter notes This section contains the clinical notes associated to the Encounter. Date/Time Encounter Note(s) Provider Source November 11, 2024 09:14 AM AUDIOLOGY NOTE: LOCAL TITLE: AUDIOLOGY ASSESSMENT (T) STANDARD TITLE: AUDIOLOGY NOTE DATE OF NOTE: NOVEMBER 11, 2024@09:14 ENTRY DATE: NOVEMBER 11, 2024@09:14:22 AUTHOR: ADE LOCKE COSIGNER: URGENCY: STATUS: COMPLETED Previous Hearing Aids: N/A History: [place] here today to have his hearing tested after seeing ENT for a bilateral myringotomy, ITR, and adenoidectomy on 09/05/24. He feels that he is hearing better since his surgery, however, finds he is still missing some conversation; he verbalized being interested in hearing aids. He reports constant bilateral tinnitus. [place] denied pain, pressure, dizziness, and family history of hearing loss. 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 Left: clear. Reliability: Good Pure Tone Audiometry: High Frequency Headphones Right Ear: Hearing WNL 250Hz-3kHz, moderate to profound sensorineural hearing loss. Left Ear: Hearing WNL 250Hz-2kHz, mild to severe sensorineural hearing loss. Speech Audiometry: Recorded CNC 50 word list with masking. Right Ear: Excellent WRS (98%), List: 1 at 70 dBHL Left Ear: Excellent WRS (100%), List: 6 at 70 dBHL Tympanometry: Right: Excessive negative pressure, Type C tymp. Left: Excessive negative pressure, Type C tymp. Acoustic Reflexes: Right: Left: 500Hz: 95 500Hz: 100 1kHz: 105 1kHz: 105 2kHz: 105 2kHz: 105+ Recommendation(s): -Follow up with ENT as scheduled -Binaural amplification; discussed options with -RTC order placed for [facility] -Encouraged to see Primary care team for overall health needs ORDER: (2) Resound KONUXia 60 Micro MELISA-R with medium open domes; LP receivers; emt i/99 length: 1; color: bronze -- MAP ('s [place], Aspiration and Purpose) What matters most to you? Comment: hear better Whole Health approaches were used during this visit: Treatment Treatment refers to a treatment plan mutually agreed upon with that supports their mission aspiration and purpose. Comment: ordered new hearing aids /deanna/ ADE LOCKE MANAGER ETL Signed: 11/11/2024 09:57 ADE LOCKE [facility]
--- OUTSIDE RECORDS SUMMARY | 2024-11-17 07:00 | XMS_ITS | Encounter Summary ---
Author Name [facility] [place] [facility] [place] Organization [facility] [place] Address [address] [place] [address] Care Team Providers Care Edi Architect Name Role Phone ROSARIO ESCALERA Primary [...] Encounter Type Encounter Description Reason Provider Source Nov 17, 2024 11:00 AM STRESS MGMT CLASS MENTAL HEALTH CLINIC - IND ICD-10-CM F43.12 Post-traumatic stress disorder, chronic ADDIS CLOUD Sonya Encounter Template Text not used by [place] Assessments - Encounter Diagnoses This section includes the primary and secondary diagnoses documented for the Encounter. Date/Time Primary/Secondary Diagnosis Diagnosis Name Provider Source Nov 17, 2024 11:15 AM PRIMARY Post-traumatic stress disorder, chronic ADDIS CLOUD [facility] Nov 17, 2024 11:15 AM SECONDARY Major depressive disorder, recurrent, moderate ADDIS CLOUD [facility] Nov 17, 2024 11:15 AM SECONDARY Other specified problems related to upbringing ADDIS CLOUD [facility] Nov 17, 2024 11:15 AM SECONDARY Parent-biological child conflict ADDIS CLOUD [facility] Nov 17, 2024 11:15 AM SECONDARY Personality disorder, unspecified ADDIS CLOUD [facility] Nov 17, 2024 11:15 AM SECONDARY Primary insomnia ADDIS CLOUD [facility] Plan of Treatment: Future Appointments (+ 6 months) and Future Tests (+/- 45 days) The Plan of Treatment section includes future care activities for the patient from all [facility]. This section includes future appointments and future orders which are active, pending or scheduled. Future Appointments This section includes appointments that were scheduled to occur 6 months from the date of the Encounter, up to a maximum of 20 appointments. The data comes from all [facility]. Appointment Date/Time Appointment Type Appointme nt Facility Name Dec 01, 2024 08:30 AM AMBULATORY - PSYCHIATRY [facility] Dec 01, 2024 01:00 PM AMBULATORY - NONE [facility] Dec 03, 2024 03:00 PM AMBULATORY - NONE [facility] Dec 08, 2024 03:30 PM AMBULATORY - PSYCHIATRY [facility] Dec 11, 2024 11:00 AM AMBULATORY - NONE [facility] Dec 15, 2024 09:30 AM AMBULATORY - PSYCHIATRY [facility] Dec 15, 2024 09:45 AM AMBULATORY - NONE [facility] Dec 22, 2024 01:30 PM AMBULATORY - NONE [facility] Dec 24, 2024 02:30 PM AMBULATORY - SURGERY [place] [facility] Dec 30, 2024 01:00 PM AMBULATORY - PSYCHIATRY [facility] Jan 20, 2025 09:00 AM AMBULATORY - NONE [facility] Active, Pending, and Scheduled Orders This section includes a listing of several types of active, pending, and scheduled orders, including clinic medications orders, diagnostic test orders, procedure orders and consult orders; where the start date of the order is 45 days before the date of the Encounter or 45 days after the date of theEncounter. The data comes from all [facility]. Test Date/Time Test Type Test Details Facility Name October 18, 2024 12:00 AM Laboratory - Chemi stry Order SEMEN ANALYSIS (POST-VAS) QUALITATIVE SEMINAL FLUID SP [facility] November 04, 2024 03:35 PM Consult Order COMMUNITY CARE-CHIROPRACTIC Cons Aging Room [facility] November 13, 2024 04:16 PM Consult Order COMMUNITY CARE-DENTAL Cons Aging Room [facility] Dec 09, 2024 09:45 AM Consult Order COMMUNITY CARE-DENTAL Cons Aging Room [facility] Dec 09, 2024 11:35 AM Consult Order COMMUNITY CARE-DENTAL Cons Aging Room Hand[facility] Social History: Smoking Status (Most [...] Facil ity May 18, 2023 02:00 PM ID-TOBACCO QUIT 1 TO < 5 YRS [facility] Tobacco Use History This section includes a history of the smoking, or tobacco-related health factors, that were collected on or before the date of the Encounter. The data comes from the [place] facility where the Encounter took place. Date/Time Smoking Status/Tobacco Use Comment F acility May 18, 2023 02:00 PM ID-TOBACCO QUIT 1 TO < 5 YRS [facility] Advance Directives: All historical and current [...] 22, 2023 ADVANCE DIRECTIVE DISCUSSION SABINA NAIR [facility] Encounter Notes: All associated encounter notes This section contains the clinical notes associated to the Encounter. Date/Time Encounter Note(s) Provider Source Nov 17, 2024 10:47 AM MENTAL HEALTH COUN SELING NOTE: LOCAL TITLE: PSYCHIATRY PSYCHOTHERAPY INDIVIDUAL NOTE (T) STANDARD TITLE: MENTAL HEALTH COUNSELING NOTE DATE OF NOTE: NOV 17, 2024@10:47 ENTRY DATE: NOV 17, 2024@10:47:53 AUTHOR: ADDIS CLOUD COSIGNER: URGENCY: STATUS: COMPLETED Session Time and Duration: 10:57 am - 12:00 Pm 63 minutes assessment: 02.09.2023 Updated assessment: 08.28.2024 DIAGNOSIS: PTSD (SC); Insomnia; MDD, recurrent, moderate; Personality D/O, Cluster B traits; Relationship Stressors; Grief STRENGTHS: Self-Identified: trying to be more active w/the children went for a walk w/the kids earlier this week Provider Identified: Active partnership in [employer] PATIENT'S ABILITIES Licensed Emery Grinder Able to transport self Date Treatment Plan [...] METHOD OF THERAPY: Stress Mgmt. Haily is 29 y/o male w/100% SC being treated in Specialty for therapy. He presents on time to scheduled in person therapy appt w/his minor son whom he is attentive to during appt. [place] identifies ongoing depression symptoms w/ability to meet his son's basic needs during this time. He is struggling w/feeling that he is failing/not enough and continuing patterns from his childhood. He is receptive to thought catching/challenging. He is restricts tears as he is encouraged to identify positive traits. shares of his grief struggles. [place] reports difficulty connecting to his minor son and they discuss affection, names utilized, tone of voice, and positive affirmation. He connected to his aunt and a new friend which is motivating for him during his depression episodes. would like to meet again in 2-3 weeks for an hour appt. is calm and stable at the end of the session with no SI/HI noted. INTERVENTIONS: Assessed mental health status and reviewed events since last session. SW assesses SI/HI. SW reviews the goals for session. SW offers emotional support and uses active listening. SW reviews distress tolerance skills. SW reviews cognitive behavioral skills w/encouragement of routine to include play/pleasant activities w/his son; modeling utilized in session. SW promotes processing of stuck points w/grief support offered. 'S PARTICIPATION: x Actively participated in discussion x Has a better understanding of therapeutic issues x Understood or demonstrated a new strategy/skill x Willing to practice discussed strategy/skill x Agrees to continue working towards treatment goals PLAN/HOMEWORK: 1. to follow up with this SW for therapy 2. [place] to call clinic/VCL as needed in between sessions 3. MH medication mgmt. as scheduled 4. [place] to follow Suicide Prevention plan from Mar 23, 2023. 5. CBTI w/Sleep Clinic as scheduled 6. [facility] Wind Operations Supervisor as scheduled 7. to work on thought catching/challenging and proactive use of I am enough. MENTAL STATUS EXAM: ORIENTATION AND CONSCIOUSNESS: Alert and attentive, Alert and oriented x 3 APPEARANCE AND BEHAVIOR: Cooperative and reasonable, walks independently, well kempt Comments: Minor son is present in appt and [place] is attentive to him as needed in appt. SPEECH: Normal rate/rhythm LANGUAGE: Intact MOOD AND AFFECT: Mood Depressed, Affect w/minimal range; restricted tearfulness as they discuss grief/relationship w/his son PERCEPTUAL DISTURBANCE (Hallucinations, Illusions): None THOUGHT PROCESS AND ASSOCIATION: Normal, coherent THOUGHT CONTENT (delusions, Obsessions, etc.): No unusual thought content MEMORY: Intact SUICIDAL OR VIOLENT IDEATION: He denies SI/HI now or since last appt. He continues w/thoughts of being okay if he did not wake up but would not kill self d/t that being a failure to his and son. Safety plan developed on Mar. [place] presents as low acute and chronic intermediate [...] Treatment Will follow up with the biweekly per request [place] is aware to contact the clinic or the [place]'s Crisis Line with concerns prior to the next scheduled visit. Whole Health approaches used during this visit: Whole Health Education This descriptor is used with any educational offering aligned with whole health and focused around one of the eight components of Proactive Health and Wellbeing (i.e., the Perkins of Health ). He declines need for [facility] referral d/t resuming Martial Arts classes this month. /deanna/ ADDIS VALLECILLO-SUPV CLINICIAL CHAR BELT OPERATOR Signed: 11/17/2024 12:10 ADDIS CLOUD CBOC
--- OUTSIDE RECORDS SUMMARY | 2024-12-01 04:30 | XMS_ITS | Encounter Summary ---
Author Name [place] Address [address] [place] [address] Care Team Providers Care Hand Fabric Cutter Name Role Phone ROSARIO ESCALERA Primary [...] Type Encounter Description Reason Provider Source Dec 01, 2024 08:30 AM PSYTX COMPLEX INTERACTIVE MENTAL HEALTH CLINIC - IND ICD-10-CM F43.12 Post-traumati c stress disorder, chronic ADDIS CLOUD Encounter Template Text not used by [place] Assessments - Encounter Diagnoses This section includes the primary and secondary diagnoses documented for the Encounter. Date/Time Primary/Secondary Diagnosis Diagnosis Name Provider Source Dec 01, 2024 08:43 AM PRIMARY Post-traumatic stress disorder, chronic ADDIS CLOUD [facility] Dec 01, 2024 08:43 AM SECONDARY Parent-biological child conflict ADDIS CLOUD [facility] Dec 01, 2024 08:43 AM SECONDARY Personality disorder, unspecified ADDIS CLOUDY [facility] Dec 01, 2024 08:43 AM SECONDARY Primary insomnia ADDIS CLOUD DANN [facility] Dec 01, 2024 08:43 AM SECONDARY Suicidal ideations PEDRO LUISADDIS DON DANN [facility] Plan of Treatment: Future Appointments (+ 6 months) and Future Tests (+/- 45 days) The Plan of Treatment section includes future care activities for the patient from all [place] [facility]. This section includes future appointments and future orders which are active, pending or scheduled. Future Appointments This section includes appointments that were scheduled to occur 6 months from the date of the Encounter, up to a maximum of 20 appointments. The data comes from all [facility]. Appointment Date/Time Appointment Type Appointme nt Facility Name Dec 03, 2024 03:00 PM AMBULATORY - NONE [facility] Dec 08, 2024 03:30 PM AMBULATORY - PSYCHIATRY [facility] Dec 11, 2024 11:00 AM AMBULATORY - NONE [facility] Dec 15, 2024 09:30 AM AMBULATORY - PSYCHIATRY [facility] Dec 15, 2024 09:45 AM AMBULATORY - NONE [facility] Dec 22, 2024 01:30 PM AMBULATORY - NONE [facility] Dec 24, 2024 02:30 PM AMBULATORY - SURGERY [facility] Dec 30, 2024 01:00 PM AMBULATORY - PSYCHIATRY [facility] Jan 20, 2025 09:00 AM AMBULATORY - NONE [facility] Active, Pending, and Scheduled Orders This [...] SEMEN ANALYSIS (POST-VAS) QUALITATIVE SEMINAL FLUID SP [facility] November 04, 2024 03:35 PM Consult Order COMMUNITY CARE-CHIROPRACTIC Cons [facility]her's [facility] November 13, 2024 04:16 PM Consult Order COMMUNITY CARE-DENTAL Cons [place] [facility] Dec 09, 2024 09:45 AM Consult Order COMMUNITY CARE-DENTAL Cons [facility] Pusher's [facility] Dec 09, 2024 11:35 AM Consult Order COMMUNITY CARE-DENTAL Cons [place] [facility] Social History: Smoking Status (Most [...] Facil ity May 18, 2023 02:00 PM [place]-TOBACCO QUIT 1 TO < 5 YRS [facility] Tobacco Use History This section includes a history of the smoking, or tobacco-related health factors, that were collected on or before the date of the Encounter. The data comes from the [place] facility where the Encounter took place. Date/Time Smoking Status/Tobacco Use Comment F acility May 18, 2023 02:00 PM NC-TOBACCO QUIT 1 TO < 5 YRS [facility] Advance Directives: All historical [...] ADVANCE DIRECTIVE DISCUSSION SABINA NAIR [facility] Encounter Notes: All associated encounter notes This section contains the clinical notes associated to the Encounter. Date/Time Encounter Note(s) Provider Source Dec 01, 2024 07:58 AM MENTAL HEALTH COUN SELING NOTE: LOCAL TITLE: PSYCHIATRY PSYCHOTHERAPY INDIVIDUAL NOTE (T) STANDARD TITLE: MENTAL HEALTH COUNSELING NOTE DATE OF NOTE: DEC 01, 2024@07:58 ENTRY DATE: DEC 01, 2024@07:58:30 AUTHOR: ADDIS CLOUDIGNER: URGENCY: STATUS: COMPLETED Session Time and Duration: 8:30 am - 9:01 am 31 minutes MH assessment: 02.09.2023 Updated MH assessment: 08.28.2024 DIAGNOSIS: PTSD (SC); Insomnia; MDD, recurrent, moderate; Personality D/O, Cluster B traits; Relationship Stressors; Grief STRENGTHS: Self-Identified: trying to be more active w/the children went for a walk w/the kids earlier this week Provider Identified: Active partnership in [employer] PATIENT'S ABILITIES Licensed Manager Athletics Able to transport self Date Treatment Plan is due: 02.28.2025 Treatment Plan Goals: Goal: I want to be more stable emotionally and less impulsive in my actions. Goal: I want to learn how to approach my life in a more even and flexible way. Goal: Increase [place]'s ability to make sense of traumatic experiences, [...] whom he is attentive to during appt. [place]aily shares this is the anniversary date of spouse's . He reports routine contact w/her sister which has been happening today as well. He is worried about processing d/t c/o of falling apart. They discuss how he has managed past 2 years w/opportunity for expression of natural grief emotions. He did make attempts to be more connected w/his minor son since last appt. He identifies this to be triggers for his own childhood and ANTs related to his grief/spouse. He has some willingness to further process and use adaptive thoughts in between appts. [place] would like to meet again next week. [place] is calm and stable at the end of the session with no SI/HI noted. INTERVENTIONS: Assessed mental health status and reviewed events since last session. SW assesses SI/HI. SW reviews the goals for session. SW offers emotional support and uses active listening. SW offers grief support and education. SW reviews distress tolerance skills w/specifically reviewing Mindfulness, Emotional tolerance, and processing of ANTs. 'S PARTICIPATION: x Actively participated in discussion x Has a better understanding of therapeutic issues x Understood or demonstrated a new strategy/skill x Willing to practice discussed strategy/skill x Agrees to continue working towards treatment goals PLAN/HOMEWORK: 1. [place] to follow up with this SW for therapy 2. [place] to call clinic/VCL as needed in between sessions 3. medication mgmt. as scheduled 4. to follow Suicide Prevention plan from Mar 23, 2023. 5. VA Clear Coat Sprayer as scheduled 6. to work on thought catching/challenging and proactive use of I am enough. MENTAL STATUS EXAM: ORIENTATION AND CONSCIOUSNESS: Alert and attentive, Alert and oriented x 3 APPEARANCE AND BEHAVIOR: Cooperative and reasonable, walks independently, well kempt Comments: Minor son is present in appt and [place] is attentive to him as needed in [...] since last appt. Safety plan developed on Mar and he confirms his ability to remain safe at home. presents as low acute and chronic intermediate [...] in Treatment Will follow up with the weekly per [place] request [place] is aware to contact the clinic or the 's Crisis Line with concerns prior to the next scheduled visit. /deanna/ ADDIS HARDY CLINICIAL BENCH MACHINE OPERATOR Signed: 12/01/2024 12:25 ADDIS CLOUD OC
--- OUTSIDE RECORDS SUMMARY | 2024-12-08 10:30 | XMS_ITS | Encounter Summary ---
Author Name [facility] [place] Address [address] [place] [address] Care Team Providers Care Overcaster Name Role Phone ROSARIO ESCALERA Primary Care Provider [facility] xuan Insurance Providers: All historical and current Section Date Range: From patient's date of to the date document was created. This section includes the names of all active insurance providers for the patient. Insurance Provider Type of Coverage Plan Name Start of Policy Coverage End of Policy Coverage Group Number Member ID Insurance Provider's Telephone Number Policy Ejffrey's Name Patient's Relationship to Policy Jeffrey Selected Encounter This section includes the information on record at [place] for the Encounter. Date/Time Encounter Type Encounter Description Reason Pro vider Source Dec 08, 2024 02:30 PM Outpatient Encounter ACID ETCH OPERATOR SERVICE - INDIVIDUAL [facility] Encounter Template Text not used by [place] Plan of Treatment: Future Appointments (+ 6 months) and Future Tests (+/- 45 days) The Plan of Treatment section includes future care activities for the patient from all [place] treatmentfacilities. This section includes future appointments and future orders which are active, pending or scheduled. Future Appointments This section includes appointments that were scheduled to occur 6 months from the date of the Encounter, up to a maximum of 20 appointments. The data comes from all [place] treatment facilities. Appointment Date/Time Appointment Type Appointme nt Facility Name Dec 11, 2024 11:00 AM AMBULATORY - NONE NATASHA Dodson [facility] Dec 15, 2024 09:30 AM AMBULATORY - PSYCHIATRY CL [facility] Dec 15, 2024 09:45 AM AMBULATORY - NONE [facility] Dec 22, 2024 01:30 PM [facility]UL[facility] Dec 24, 2024 02:30 PM AMBULATORY - SURGERY RIMM[place]IE CAPELLAN [facility] Dec 30, 2024 01:00 PM AMBULATORY - PSYCHIATRY [facility] Jan 20, 2025 09:00 AM AMBULATORY - NONE [facility] Active, Pending, and Scheduled Orders This [...] Date/Time Test Type Test Details Facility Name November 04, 2024 03:35 PM Consult Order COMMUNITY CARE-CHIROPRACTIC Cons Explosive Ordnance Disposal Specialist's [facility] November 13, 2024 04:16 PM Consult Order COMMUNITY CARE-DENTAL Cons Explosive Ordnance Disposal Specialist's [facility] Dec 09, 2024 09:45 AM Consult Order COMMUNITY CARE-DENTAL Cons Explosive Ordnance Disposal Specialist's [facility] Dec 09, 2024 11:35 AM Consult Order COMMUNITY CARE-DENTAL Cons Explosive Ordnance Disposal Specialist's [facility] Social History: Smoking Status (Most current) and [...] Date/Time Current Smoking Status Comment Lucinda andrade Sep 05, 2024 10:00 AM TOBACCO CURRENT USER daily vape [facility] Tobacco Use History This section includes a history of the smoking, or tobacco-related health factors, that were collected on or before the date of the Encounter. The data comes from the [place] facility where the Encounter took place. Date/Time Smoking Status/Tobacco Use Comment F acility Jun 06, 2024 11:30 AM VA-TOBACCO SCREEN FOLLOW-UP [facility] Jun 06, 2024 11:30 AM VA-TOBACCO USE ADVICE [facility] Jun 06, 2024 11:30 AM VA-TOBACCO USE APPLICATION PROGRAMMER ANALYST NO [facility] Jun 06, 2024 11:30 AM VA-TOBACCO USE EVERY DAY CIGARET MANNY [facility] Jun 06, 2024 11:30 AM VA-TOBACCO USE EVERY DAY ENDS [facility] Jun 06, 2024 11:30 AM VA-TOBACCO USE EVERY DAY OTHER T YPE [facility] Jun 06, 2024 11:30 AM VA-TOBACCO USE MED NO [facility] Jun 19, 2023 10:00 AM TOBACCO FORMER USER MORE 12 [facility] Advance Directives: All historical and [...] 22, 2023 ADVANCE DIRECTIVE DISCUSSION SABINA NAIR [facility] Encounter Notes: All associated encounter notes This section contains the clinical notes associated to the Encounter. Date/Time Encounter Note(s) Provider Source Dec 08, 2024 02:30 PM NO SHOW NOTE: LOCAL TITLE: NO SHOW (T)// NO SHOW/CANCELLATION NOTE STANDARD TITLE: NO SHOW NOTE DATE OF NOTE: DEC 08, 2024@14:30 ENTRY DATE: DEC 08, 2024@14:47:02 AUTHOR: BLADIMIR VENCES EXP COSIGNER: URGENCY: STATUS: COMPLETED Patient cancelled this appointment., Comments: logged into rescheduled C individual grief on time but shared his need to cancel due to mental health appointment directly after this appointment. Rescheduled again for 12-22-24 @ 2:30pm. [place] expressed apologies and was assured care. /deanna/ ACID ETCH OPERATOR BLADIMIR VENCES MDiv ACID ETCH OPERATOR Signed: 12/08/2024 14:48 BLADIMIR VENCES [facility]
--- OUTSIDE RECORDS SUMMARY | 2024-12-08 11:30 | XMS_ITS | Encounter Summary ---
Author Name [facility] [place] [facility] [place] [facility] [place] Address [address] [place] [address] Care Team Providers Care Panel Raiser Operator Name Role Phone ROSARIO ESCALERA Primary [...] Type Encounter Description Reason Provider Source Dec 08, 2024 03:30 PM PSYTX W PT 60 MINUTES [facility] - IND ICD-10-CM F43.12 Post-traumatic stress disorder, chronic ADDIS CLOUD Encounter Template Text not used by [place] Assessments - Encounter Diagnoses This section includes the primary and secondary diagnoses documented for the Encounter. Date/Time Primary/Secondary Diagnosis Diagnosis Name Provider Source Dec 08, 2024 03:27 PM PRIMARY Post-traumatic stress disorder, chronic ADDIS CLOUD [facility] Dec 08, 2024 03:27 PM SECONDARY Major depressive disorder, recurrent, moderate ADDIS CLOUD [facility] Dec 08, 2024 03:27 PM SECONDARY Primary insomnia ADDIS CLOUD [facility] Plan of Treatment: Future Appointments (+ 6 months) and Future Tests (+/- 45 days) The Plan of Treatment section includes future care activities for the patient from all [place] [facility]. This section includes future appointments and [...] 11, 2024 11:00 AM AMBULATORY - NONE [facility] Dec 15, 2024 09:30 AM AMBULATORY - PSYCHIATRY CL [facility] Dec 15, 2024 09:45 AM AMBULATORY - NONE [facility] Dec 22, 2024 01:30 PM AMBULATORY - NONE [facility] Dec 24, 2024 02:30 PM AMBULATORY - SURGERY [facility] Dec 30, 2024 01:00 PM AMBULATORY - PSYCHIATRY [facility] Jan 20, 2025 09:00 AM AMBULATORY - NONE [facility] Active, Pending, and Scheduled Orders This section includes a listing of several types of active, pending, and scheduled orders, including clinic medications orders, diagnostic test orders, procedure orders and consult orders; where the start date of the order is 45 days before the date of the Encounter or 45 days after the date of theEncounter. The data comes from all [facility]. Test Date/Time Test Type Test Details Facility Name November 04, 2024 03:35 PM Consult Order COMMUNITY CARE-CHIROPRACTIC [facility] November 13, 2024 04:16 PM Consult Order [facility] Dec 09, 2024 09:45 AM Consult [facility] Dec 09, 2024 11:35 AM Consult [facility] Social History: Smoking Status (Most current) and [...] 2023 02:00 PM VA-TOBACCO FORMER USER [facility] Tobacco Use History This section includes a history of the smoking, or tobacco-related health factors, that were collected on or before the date of the Encounter. The data comes from the [place] facility where the Encounter took place. Date/Time Smoking Status/Tobacco Use Comment F acility May 18, 2023 02:00 PM VA-TOBACCO QUIT 1 TO < 5 YRS [facility] Advance Directives: All historical and current [...] 22, 2023 ADVANCE DIRECTIVE DISCUSSION SABINA NAIR [facility] Encounter Notes: All associated encounter notes This section contains the clinical notes associated to the Encounter. Date/Time Encounter Note(s) Provider Source Dec 08, 2024 07:54 AM MENTAL HEALTH COUN SELING NOTE: LOCAL TITLE: PSYCHIATRY PSYCHOTHERAPY INDIVIDUAL NOTE (T) STANDARD TITLE: MENTAL HEALTH COUNSELING NOTE DATE OF NOTE: DEC 08, 2024@07:54 ENTRY DATE: DEC 08, 2024@07:54:28 AUTHOR: ADDIS CLOUD COSIGNER: URGENCY: STATUS: COMPLETED PSYCHIATRY PSYCHOTHERAPY INDIVIDUAL NOTE (T) Has ADDENDA Session Time and Duration: 3:25 pm - 4:23 pm 58 minutes MH assessment: 02.09.2023 Updated MH assessment: 08.28.2024 DIAGNOSIS: PTSD (SC); Insomnia; MDD, recurrent, moderate; Personality D/O, Cluster B traits STRENGTHS: Self-Identified: trying to be more active w/the children went for a walk w/the kids earlier this week Provider Identified: Active partnership in [employer] PATIENT'S ABILITIES Licensed Link Trainer Able to transport self Date Treatment Plan [...] of sleep. PROGRESS TOWARDS GOAL: Minimal progress & improving MH clinical reminders due: None TYPES OF THERAPY: Individual METHOD OF THERAPY: Stress Mgmt. Haily is 29 y/o male w/100% SC being treated in Specialty for therapy. He presents on time to scheduled in person therapy appt w/his minor son whom he is attentive to during appt. [facility] has made gains w/efforts for self and relationship care. He did skip martial arts class d/t grief this past week. He reports depressive episodes occurred w/less intensity and more managed. He reports taking breaks as he began to go thru spouse's items from storage. They review his goals for [facility] care, expectations of [place] and ability to proceed d/t no childcare available for his minor son during the day. They review [facility] evening hours[facility] and he declines d/t not wanting to start w/a new provider. He identifies MH goals are to address his PTSD and Anxiety. He is willing to work on CPT skills w/plan for trauma processing when his son begins school in the fall. CPT ABC sheets, stuck points and feelings wheel utilized in appt w/him being willing to complete HW in between appts (which he shares his concerns about completing HW). No other needs at this time. would like to meet again in 2-3 weeks. is calm and stable at the end of the session with no SI/HI noted. INTERVENTIONS: Assessed mental health status and reviewed events since last session. SW assesses SI/HI. SW reviews the goals for session. SW offers emotional support and uses active listening. SW offers grief support and education. SW reviews distress tolerance skills w/noted gains made since last appt. SW uses CPT strategies w/review of Session II content and assignment of ABC sheets. 'S PARTICIPATION: x Actively participated in discussion x Has a better understanding of therapeutic issues x Understood or demonstrated a new strategy/skill x Willing to practice discussed strategy/skill x Agrees to continue working towards treatment goals PLAN/HOMEWORK: 1. to follow up with this SW for therapy 2. to call clinic/V[facility] as needed in between sessions 3. MH medication mgmt. as scheduled 4. [facility] to follow Suicide Prevention plan from Mar 23, 2023. 5. [employer] as scheduled 6. to work on CPT Binder ABC sheets section 2 & 3 MENTAL STATUS EXAM: ORIENTATION AND CONSCIOUSNESS: Alert and attentive, Alert and oriented x 3 APPEARANCE AND BEHAVIOR: Cooperative and reasonable, walks independently, well kempt Comments: Minor son is present in appt and is attentive to him as needed in appt w/noted positive shifts in affect and communication w/his son. SPEECH: Normal rate/rhythm LANGUAGE: Intact MOOD AND [...] Treatment Will follow up with the in 2-3 weeks per [facility] request is aware to contact the clinic or the 's Crisis Line with concerns prior to the next scheduled visit. /deanna/ ADDIS HARDY CLINICIAL EDGE SANDER Signed: 12/09/2024 08:15 12/09/2024 ADDENDUM STATUS: COMPLETED Assessments were sent to the [facility] via text/email. These assessments were completed by MARION ZHENG on their own device on 12/08/2024 3:11:55 PM. PATIENT HEALTH QUESTIONNAIRE-9 (PHQ-9) The patient reported symptoms consistent with a major depressive episode. Patient reported being bothered by the following over the last 2 weeks: 1. Little interest or pleasure: More than half the days 2. Feeling down, depressed or hopeless: More than half the days 3. Trouble sleeping: Several Days 4. Tired, low energy: Several Days 5. Poor appetite, over-eating: Several Days 6. Feelings of failure, guilt: Nearly every day 7. Trouble concentrating: Nearly every day 8. Motor retardation, agitation: Several Days 9. Thoughts better off /hurting self: Several Days PHQ-9 total score = 15 1-4 = minimal symptoms 5-9= mild symptoms 10-14= moderate symptoms 15-19= moderately severe symptoms 20-27= severe depressive symptoms The patient stated that the depressive symptoms made it extremely difficult to work, take care of things at home, or get along with others. PHQ-9 Total Score (past 180 days): 12/08/2024 15 08/28/2024 12 GENERAL ANXIETY DISORDER-7 (CATY-7) Patient reported being bothered by the following over the last two weeks: 1. Feeling nervous, anxious or on edge: More than half the days 2. Not being able to stop or control worrying: More than half the days 3. Worrying too much about different things: More than half the days 4. Trouble relaxing: Nearly every day 5. Feeling restless (hard to sit still): Several days 6. Becoming easily annoyed or irritable: More than half the days 7. Afraid as if something awful might happen: Not at all CATY-7 total score = 12 0-4=minimal symptoms 5-9=mild symptoms 10-14=moderate symptoms 15-21=severe symptoms The patient stated that the anxiety symptoms made it very difficult to work, take care of things at home, or get along with others. CATY-7 Total Score (past 180 days): 12/08/2024 12 08/28/2024 8 PTSD CHECKLIST (PCL-5) - MONTHLY Patient reported being bothered by the following over the past month: 1. Disturbing memories: Quite a bit 2. Disturbing dreams: A little bit 3. Re-experiencing events: Quite a bit 4. Cued distress: Quite a bit 5. Cued physical symptoms: Quite a bit 6. Avoiding internal reminders: Extremely 7. Avoiding external reminders: Extremely 8. Trouble with recall: Not at all 9. Negative beliefs: Extremely 10. Blaming self/others: A little bit 11. Negative feelings: Extremely 12. Loss of interest: Moderately 13. Feeling distant from others: Moderately 14. Feeling numb: Quite a bit 15. Feeling irritable: Quite a bit 16. Reckless behavior: A little bit 17. Being super-alert : Moderately 18. Feeling easily startled: A little bit 19. Difficulty concentrating: Moderately 20. Trouble sleeping: Moderately PCL-5 total score = 48 This measure assesses an individual's perception of [...] for some Veterans with scores lower than 31-33 to meet criteria for PTSD. Additional testing using a structured diagnostic interview, such as the Clinician Administered PTSD Scale for DSM-5, is recommended to confirm diagnostic status. PCL-5 Monthly Total Score (past 180 days): 12/08/2024 48 08/28/2024 59 /es/ ADDIS VALLECILLO-CARROLLV CLINICIAL EDGE SANDER Signed: 12/09/2024 08:51 ADDIS CLOUD OC
[2024-12-10 17:06] VITALS: BP 159/97; PULSE 82; TEMP 36.8; O2SAT 96; BMI 24.4
--- OUTSIDE RECORDS SUMMARY | 2024-12-10 17:09 | XMS_ITS | Continuity of Care Document ---
Author Name [facility] Organization [facility] Care Team Providers Care Car Lot Attendant Name Role Phone [facility] Unavailable Unavailable Problems Combined list of problems from Department of Defense and Veterans Affairs facilities. It does not include entries that were removed or entered in error. Problem Status Onset Date Problem Type Date of Resolution Comments Source H/O splenectomy Active 01/21/20 20 Condition [facility] Need For Vaccination Yellow Fever Inactive Condition [facility] Need For Vaccination Poliomyelitis Inactivated Inactive Condition [facility] [employer]IGAMENT RIGHT Inactive Condition Do[facility] visit for: new patient eye exam Inactive Condition Do[facility] visit for: services physical accession Inactive Condition [facility] Need For Prophylactic Antibiotics Inactive Condition [facility] Vaccines Prophylactic Need Against Viral Diseases Inactive Condition [facility] Need For Vaccination Hepatitis A And Hepatitis B Inactive Condition [facility] Vaccines Prophylactic Need Against Bacterial Diseases Meningococcal Inactive Condition [facility] Vaccines Prophylactic Need Against Combinations Of Diseases Inactive Condition DoD visit for: screening exam pulmonary tuberculosis Inactive Condition [facility] Vaccines Prophylactic Need Against Influenza Inactive Condition [facility] Patient Education - Injury Prevention Inactive Condition DoD visit for: ears / hearing exam Inactive Condition DoD visit for: services physical Inactive Condition DoD Chronic post-traumatic stress disorder Active Condition [facility] Exposure to potentially hazardous substance ([facility] [id number]) Active Condition Oct 09 4 Entered By: RACHEL GARCÍA Comment: Entered automatically through MANNY Problem List documentation program [facility] FH: Migraine Active Condition [facility] Hereditary spherocytosis Active Condition [facility] Insomnia Active Condition [facility] Migraine Active Condition [facility] Moderate recurrent major depression Active Condition [facility] Personality disorder Active Condition [facility] Suicidal thoughts Active Condition [facility] Tobacco use Active Condition [facility] Diagnosis: ICD-10-CM F43.12 Post-traumatic stress disorder, chronic Active Diagnosis [facility] Diagnosis: ICD-10-CM H90.3 Sensorineural hearing loss, bilateral Active Diagnosis [facility] Diagnosis: ICD-10-CM M54.2 Cervicalgia Active Diagnosis [facility] Diagnosis: ICD-10-CM Z71.81 Spiritual or yazdanism counseling Active Diagnosis [facility] Diagnosis: ICD-10-CM G56.01 Carpal tunnel syndrome, right upper limb Active Diagnosis [facility] Diagnosis: ICD-10-CM R20.2 Paresthesia of skin Active Diagnosis [facility] Diagnosis: ICD-10-CM J35.2 Hypertrophy of adenoids Active Diagnosis [facility] Diagnosis: ICD-10-CM J34.2 Deviated nasal septum Active Diagnosis [facility] Diagnosis: ICD-10-CM G43.809 Other migraine, not intractable, without status migrainosus Active Diagnosis [facility] Diagnosis: ICD-10-CM F51.01 Primary insomnia Active Diagnosis [facility] Diagnosis: ICD-10-CM Z01.810 Encounter for preprocedural cardiovascular examination Active Diagnosis [facility] Diagnosis: ICD-10-CM Z01.818 Encounter for other preprocedural examination Active Diagnosis [facility] Diagnosis: ICD-10-CM R09.81 Nasal congestion Active Diagnosis [facility] Diagnosis: ICD-10-CM Z30.2 Encounter for sterilization Active Diagnosis [facility] Diagnosis: ICD-10-CM Z98.52 Vasectomy status Active Diagnosis [facility] Diagnosis: ICD-10-CM M54.12 Radiculopathy, cervical region Active Diagnosis [facility] Diagnosis: ICD-10-CM D58.0 Hereditary spherocytosis Active Diagnosis [facility] Diagnosis: ICD-10-CM Z90.81 Acquired absence of spleen Active Diagnosis [facility] Diagnosis: ICD-10-CM F60.9 Personality disorder, unspecified Active Diagnosis [facility] Diagnosis: ICD-10-CM M54.50 Low back pain, unspecified Active Diagnosis [facility] Diagnosis: ICD-10-CM G43.909 Migraine, unsp, not intractable, without status migrainosus Active Diagnosis [facility] Diagnosis: ICD-10-CM G43.709 Chronic migraine w/o aura, not intractable, w/o stat migr Active Diagnosis [facility] Diagnosis: ICD-10-CM M54.40 Lumbago with sciatica, unspecified side Active Diagnosis [facility] Diagnosis: ICD-10-CM G43.009 Migraine w/o aura, not intractable, w/o status migrainosus Active Diagnosis [facility] Diagnosis: ICD-10-CM G47.00 Insomnia, unspecified Active Diagnosis [facility] Diagnosis: ICD-10-CM D72.829 Elevated white blood cell count, unspecified Active Diagnosis [facility] Diagnosis: ICD-10-CM R45.851 Suicidal ideations Active Diagnosis [facility] Diagnosis: ICD-10-CM G47.33 Obstructive sleep apnea (adult) (pediatric) Active Diagnosis [facility] Diagnosis: ICD-10-CM F32.9 Major depressive disorder, single episode, unspecified Active Diagnosis [facility] Diagnosis: ICD-10-CM G47.30 Sleep apnea, unspecified Active Diagnosis [facility] Diagnosis: ICD-10-CM Z71.89 Other specified counseling Active Diagnosis [facility] Diagnosis: ICD-10-CM J35.3 Hypertrophy of tonsils with hypertrophy of adenoids Active Diagnosis [facility] Diagnosis: ICD-10-CM R52 Pain, unspecified Active Diagnosis [facility] Diagnosis: ICD-10-CM J35.8 Other chronic diseases of tonsils and adenoids Active Diagnosis [facility] Medications Combined list of outpatient medications from Department of Defense and [facility] Affairs facilities.Medications provided include 1) outpatient medications from the last 15 months, and 2) patient-reported medications. Medication Details Route Status Patient Instructions Prescription Expires Prescription Number Last Dispense Date Ordering Provider Order Date Order Qty Source AMITRIPTYLI NE HCL 10MG TAB TAKE 1 TO 2 TABLETS BY MOUTH AT BEDTIME NEEDED FOR SLEEP ORAL DISCONT INUED BY NORA Palmer 05/01/2025 [id number] ABAD TENORIO 2023 60 [facility] ATORVASTATI N CA 10MG TAB TAKE ONE TABLET BY MOUTH EVERY DAY ORAL ACTIVE 06/26/2025 [id number] CHIOMA ESCALERA 2024 90 [facility] ATORVASTATI N CA 10MG TAB TAKE ONE TABLET BY MOUTH EVERY DAY ORAL DISCONT INUED 12/27/2024 [id number] DE CHIOMA MCKEON L 2023 90 [facility] BUSPIRONE HCL 10MG TAB TAKE ONE TABLET BY MOUTH TWICE A DAY FOR REPEATED EPISODES OF ANXIETY (WITH FOOD) ORAL DISCONT INUED BY NORA R 06/26/2025 [id number] ABAD TENORIO 2024 60 [facility] BUSPIRONE HCL 10MG TAB TAKE ONE TABLET BY MOUTH AT BEDTIME FOR 3 DAYS, THEN TAKE ONE TABLET TWICE A DAY FOR REPEATED EPISODES OF ANXIETY (WITH FOOD) ORAL DISCONT INUED 06/26/2025 [id number] 5 ABAD TENORIO 2024 57 [facility] CEPHALEXIN 500MG CAP TAKE ONE CAPSULE BY MOUTH THREE TIMES A DAY ORAL 08/20/2024 [id number] 5 NEREIDA LANDEROS 2024 9 [facility] CHOLECALCIF (VIT D3) 1,000 UNIT ORAL TAB TAKE THREE TABLETS BY MOUTH EVERY DAY FOR VITAMIN D DEFICIEN CY 11/20/2024 [id number] ROSARIO BARR 2023 300 [facility] CHOLECALCIF ISABEL 25MCG (1,000UNIT) TAB TAKE THREE TABLETS BY MOUTH EVERY DAY FOR VITAMIN D DEFICIEN CY ORAL ACTIVE 06/26/2025 [id number] 5 CHIOMA ESCALERA 2024 300 [facility] CHOLECALCIF ISABEL 25MCG (1,000UNIT) TAB TAKE THREE TABLETS BY MOUTH EVERY DAY FOR VITAMIN D DEFICIEN CY ORAL DISCONT INUED 11/20/2024 [id number] CHIOMA ESCALERA 2023 300 [facility] DIVALPROEX NA 500MG TAB,SA TAKE ONE TABLET BY MOUTH AT BEDTIME ORAL ACTIVE 2025 [id number] 5 HENRY IZQUIERDO [address] [facility] DIVALPROEX NA 500MG TAB,SA TAKE ONE TABLET BY MOUTH AT BEDTIME ORAL DISCONT INUED 05/11/2025 [id number] 5 HENRY IZQUIERDO [address] [facility] DIVALPROEX NA 500MG TAB,SA TAKE ONE TABLET BY MOUTH AT BEDTIME ORAL DISCONT INUED 02/28/2025 [id number] HENRY IZQUIERDO [address] [facility] DULOXETINE HCL 20MG CAP,EC TAKE ONE CAPSULE BY MOUTH EVERY MORNING FOR MAJOR DEPRESSI VE DISORDER ORAL ACTIVE 08/28/2025 [id number] 5 ABAD TENORIO 2024 30 [facility] EFFEXOR XR (BRAND) 75 MG ORAL CP24 TAKE ONE CAPSULE BY MOUTH EVERY DAY PTSD 11/01/2024 [id number] 4 ABAD TENORIO 2023 30 [facility] FLUTICASONE PROPIONATE 50MCG/SPRAY SOLN,NASAL, 16GM USE 2 SPRAYS IN EACH NOSTRIL EVERY DAY NASAL ACTIVE 07/16/2025 [id number] 5 NAZ ESPINAL [address] [facility] HYDROCODONE 5MG/ACETAMI NOPHEN 325MG TAB TAKE 1 TO 2 TABLETS BY MOUTH EVERY 6 HOURS NEEDED FOR PAIN - TAKE 1 TABLET FOR MODERATE PAIN OR TAKE 2 TABLETS FOR SEVERE PAIN. ORAL 10/05/2024 [id number] NELLA GAYLE 2024 24 [facility] LITHIUM CARBONATE 300MG TAB,SA TAKE ONE TABLET BY MOUTH AT BEDTIME FOR MOOD ORAL DISCONT INUED BY PROVIDE R 07/12/2024 [id number] 4 ABAD TENORIO 2023 90 [facility] MIRTAZAPINE 15MG TAB TAKE ONE-HALF TABLET BY MOUTH AT BEDTIME ORAL DISCONT INUED BY PROVIDE R 01/22/2025 [id number] 4 ABAD TENORIO 2023 15 [facility] SERTRALINE HCL 100MG TAB TAKE TWO TABLETS BY MOUTH EVERY DAY ORAL DISCONT INUED BY PROVIDE R 08/23/2024 [id number] 4 ABAD TENORIO 2023 180 [facility] SERTRALINE HCL 50MG TAB TAKE ONE TABLET BY MOUTH EVERY DAY ORAL DISCONT INUED BY PROVIDE R 02/21/2025 [id number] 5 ABAD TENORIO 2023 90 [facility] SINUS RINSE NEILMED PKT USE 1 PKT EACH NOSTRIL EVERY DAY NASAL CONGESTI ON ; MIX WITH 8 OZS OF WARM DISTILLE D WATER DIRECTED NASAL ACTIVE 07/16/2025 [id number] 5 KYLIE,SHA YONATHANON S [address] [facility] SINUS RINSE NEILMED REGULAR KIT USE 1 KIT EACH NOSTRIL EVERY DAY NASAL CONGESTI ON MIX WITH 8 OZS OF WARM DISTILLE D WATER DIRECTED . REPLACE BOTTLE EVERY 90 DAYS NASAL ACTIVE 07/16/2025 [id number] 5 NAZ ESPINAL S [address] [facility] SODIUM CHLORIDE 0.65% SOLN,NASAL SPRAY USE 2 SPRAYS EACH NOSTRIL SIX TIMES A DAY NASAL DISCONT INUED 07/16/2025 [id number] 5 NAZ ESPINAL S 2024 90 [facility] SODIUM CHLORIDE 0.65% SOLN,NASAL SPRAY USE 2 SPRAYS EACH NOSTRIL EVERY 2 HOURS NASAL 12/04/2024 [id number] 5 ELVIA ALVAREZ [address] [facility] VENLAFAXINE HCL 75MG 24HR CAP,SA TAKE TWO CAPSULES BY MOUTH EVERY DAY ORAL DISCONT INUED BY PROVIDE R 12/25/2024 [id number] 4 ABAD TENORIO 2023 60 [facility] VENLAFAXINE HCL 75MG 24HR CAP,SA TAKE ONE CAPSULE BY MOUTH EVERY DAY FOR 3 DAYS, THEN TAKE TWO CAPSULES EVERY DAY ORAL DISCONT INUED 12/25/2024 [id number] 4 ABAD TENORIO 2023 57 [facility] VENLAFAXINE HCL 75MG 24HR CAP,SA TAKE ONE CAPSULE BY MOUTH EVERY DAY PTSD ORAL DISCONT INUED (EDIT) 11/01/2024 [id number] 4 ABAD TENORIO 2023 30 [facility] Allergies, Adverse Reactions, Alerts Combined list of allergies from Department of Defense and Veterans Affairs facilities. It does not include entries that were removed or entered in error. Substance Category Reaction Severity Reaction type Status Date Reported Comments Source HYDROMORPHON E Propensity to adverse reactions to drug (finding) Urticaria active 3 [facility] MORPHINE Propensity to adverse reactions to drug (finding) Anaphylaxis active 3 [facility] OXYCODONE Drug allergy (disorder) Nausea and Vomiting active 3 [facility] OXYCODONE Propensity to adverse reactions to drug (finding) Nausea and vomiting active 3 [facility] Immunizations Combined list of available immunizations from the Department of [facility] and [facility] facilities. 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 Comments Source INFLUENZA, SPLIT VIRUS, TRIVALENT, PF 2023 TANIYA MENG LEFT DELTO ID [id number] 140 complet ed Completed Series, [facility]MIN[facility]E [facility] AT [facility] PNEUMOCOCCAL CONJUGATE PCV20, POLYSACCHARID E [id number] CONJUGATE, ADJUVANT, PF 2023 NIKOLE LUKE LEFT DELTO ID [id number] 216 complet ed ADMINISTE [facility] AT [facility] INFLUENZA, INJECTABLE, QUADRIVALENT, PRESERVATIVE FREE 2022 FERNANDO ADAN RIGHT DELTO ID [id number] 150 complet ed ADMINISTE [facility] AT [facility] TDAP 2 2021 115 complet ed HISTORICA L INFORMATI ON - FROM OTHER REGISTRY, [facility] influenza, injectable, quadrivalent, contains preservative 0 2017 [id number] 158 [employer] (SKB) complet ed influenza , injectabl e, quadrival ent, contains preservat jakob [facility] influenza, injectable, quadrivalent, contains preservative 0 2017 [id number] 158 [employer] (SKB) complet ed influenza , injectabl e, quadrival ent, contains preservat jakob [facility] Influenza, injectable, Madin Gabbie Canine Kidney, quadrivalent with preservative 0 2016 [id number] 186 [employer] (SKB) complet ed Influenza , injectabl e, Madin Landers Canine Kidney, quadrival ent with preservat jakob [facility] anthrax vaccine 2 2016 [id number] 24 [facility] ([facility]) complet ed anthrax vaccine DoD typhoid vaccine, parenteral, other than acetone-kille d, dried 1 2016 [id number] 41 [employer] ([facility]) complet ed typhoid vaccine, parentera l, other than acetone-k illed, dried DoD vaccinia (smallpox) vaccine 0 2016 [id number] 75 (MK) complet ed vaccinia (smallpox ) vaccine DoD anthrax vaccine 1 2016 [id number] 24 [facility] ([facility]) complet ed anthrax vaccine DoD Chinese Encephalitis vaccine for intramuscular administratio n 2 2016 [id number] 134 [employer] (INT) complet ed Chinese Encephali tis vaccine for intramusc ular administr ation DoD Chinese Encephalitis vaccine for intramuscular administratio n 1 2016 [id number] 134 [employer] (INT) complet ed Chinese Encephali tis vaccine for intramusc ular administr ation DoD influenza, injectable, quadrivalent, contains preservative 0 2015 [id number] 158 [facility] ([facility]) complet ed influenza , injectabl e, quadrival ent, contains preservat jakob DoD Influenza, seasonal, injectable, preservative free 0 2014 [id number] 140 [employer] ([facility]) complet ed Influenza , seasonal, injectabl e, preservat jakob free DoD Influenza, seasonal, injectable 0 2013 [id number] 141 [facility] ([facility]) complet ed Influenza , seasonal, injectabl e DoD hepatitis A and hepatitis B vaccine 3 2013 AVNI ESTEVEZ [id number] 104 [employer] ([facility]) complet ed hepatitis A and hepatitis B vaccine DoD varicella virus vaccine 0 2013 21 () Not Given varicella virus vaccine DoD measles and rubella virus vaccine 0 2013 04 () Not Given measles and rubella virus vaccine DoD poliovirus vaccine, inactivated 1 2013 WIL HUI [id number] 10 Sanofi Pasteur ([facility]) complet ed polioviru s vaccine, inactivat ed DoD yellow fever vaccine 1 2013 WIL HUI [id number] 37 Sanofi Pasteur ([facility]) complet ed yellow fever vaccine DoD hepatitis A and hepatitis B vaccine 2 2013 WIL HUI [id number] 104 [facility] ([facility]) complet ed hepatitis A and hepatitis B vaccine DoD tuberculin skin test; purified protein derivative solution, intradermal 1 2012 BERTRAND ALAS [id number] 96 Other (OTH) complet ed tuberculi n skin test; purified protein derivativ e solution, intraderm al DoD hepatitis A and hepatitis B vaccine 1 2012 BERTRAND ALAS [id number] 104 [facility] ([facility]) complet ed hepatitis A and hepatitis B vaccine DoD influenza virus vaccine, live, attenuated, for intranasal use 1 2012 BERTRAND ALAS [id number] 111 [employer] (MED) complet ed influenza virus vaccine, live, attenuate d, for intranasa l use DoD meningococcal polysaccharid e (groups A, C, Y and W-135) diphtheria toxoid conjugate vaccine (MCV4P) 1 2012 BERTRAND ALAS [id number] 114 Sanofi Pasteur ([facility]) complet ed meningoco ccal polysacch aride (groups A, C, Y and W-135) diphtheri a toxoid conjugate vaccine (MCV4P) DoD tetanus toxoid, reduced diphtheria toxoid, and acellular pertu is vaccine, adsorbed 1 2012 BERTRAND ALAS [id number] 115 [facility] ([facility]) complet ed tetanus toxoid, reduced diphtheri a toxoid, and acellular pertussis vaccine, adsorbed DoD Adenovirus, type 4 and type 7, live, oral 1 2012 BERTRAND ALAS [id number] 143 [employer] ([facility]) complet ed Adenoviru s, type 4 and type 7, live, oral DoD influenza, live, intranasal, quadrivalent 0 2012 UNK 149 [employer] (MED) complet ed influenza , live, intranasa l, quadrival ent DoD NOVEL INFLUENZA-H1N 1-09, PRESERVATIVE- FREE 1 2008 126 complet ed HISTORICA L INFORMATI ON - FROM OTHER REGISTRY, [facility] HEP A, UNSPECIFIED FORMULATION 1 2005 85 complet ed HISTORICA L INFORMATI ON - FROM OTHER REGISTRY, [facility] TDAP 1 2005 115 complet ed HISTORICA L INFORMATI ON - FROM OTHER REGISTRY, [facility] INFLUENZA, SEASONAL, INJECTABLE 1 2005 141 complet ed HISTORICA L INFORMATI ON - FROM OTHER REGISTRY, [facility] Results Combined list of recent chemistry, hematology and other laboratory results from Department of Defense and Veterans Affairs, ranging from 15 months to all on record, depending upon the facility. Order Name Results Value Reference Range Date Interpretation Specimen Comments Source VITAMIN D (TOTAL) 25-HYDROXYV ITAMIN D3+25-HYDRO XYVITAMIN D2 [MASS/VOLUM E] IN SERUM OR PLASMA 10 ng/mL 30 - 60 08/27 L Specimen Type: SERUM Comment: VITD One expert panel recommended a target range of 30-40 ng/mL. Ordering Provider: ROSARIO ESCALERA Report Released Date/Time: Jun 25, 2024 10:05 AM Reporting Lab: [place] [phone] Performing Lab: [place] [phone] [facility] HEPATIC FUNCTION PANEL ALBUMIN [MASS/VOLUM E] IN SERUM OR PLASMA 5.0 g/dL 3.5 - 4.8 08/27 H Specimen Type: PLASMA Comment: TP Per package [...] Jun 25, 2024 10:05 AM Reporting Lab: [place] [phone] Performing Lab: [address] [address] [facility] HEPATIC FUNCTION PANEL ALKALINE PHOSPHATASE [ENZYMATIC ACTIVITY/VO LUME] IN SERUM OR PLASMA 72 U/L 40 - 150 08/27 Specimen Type: PLASMA Comment: TP Per package [...] Jun 25, 2024 10:05 AM Reporting Lab: [address] [phone] Performing Lab: [address] [address] [facility] HEPATIC FUNCTION PANEL ALANINE AMINOTRANSF ERASE [ENZYMATIC ACTIVITY/VO LUME] IN SERUM OR PLASMA 27 U/L 0 - 55 08/27 Specimen Type: PLASMA Comment: TP Per package [...] Jun 25, 2024 10:05 AM Reporting Lab: [address] [phone] Performing Lab: [place] [phone] [facility] HEPATIC FUNCTION PANEL ASPARTATE AMINOTRANSF ERASE [ENZYMATIC ACTIVITY/VO LUME] IN SERUM OR PLASMA 25 U/L 10 - 40 08/27 Specimen Type: PLASMA Comment: TP Per package [...] Jun 25, 2024 10:05 AM Reporting Lab: [address] [phone] Performing Lab: [place] [id number] [place] [address] HEPATIC FUNCTION PANEL BILIRUBIN.D IRECT [MASS/VOLUM E] IN SERUM OR PLASMA 0.1 mg/dL 0.0 - 0.5 08/27 Specimen Type: PLASMA Comment: TP Per package [...] Jun 25, 2024 10:05 AM Reporting Lab: [place] [phone] Performing Lab: [place] [phone] [facility] HEPATIC FUNCTION PANEL PROTEIN [MASS/VOLUM E] IN SERUM OR PLASMA 8.1 g/dL 6.4 - 8.3 08/27 Specimen Type: PLASMA Comment: TP Per package [...] Jun 25, 2024 10:05 AM Reporting Lab: [place] [phone] Performing Lab: [place] [phone] [facility] HEPATIC FUNCTION PANEL BILIRUBIN.T OTAL [MASS/VOLUM E] IN SERUM OR PLASMA 0.4 mg/dL 0.2 - 1.2 08/27 Specimen Type: PLASMA Comment: TP Per package [...] Jun 25, 2024 10:05 AM Reporting Lab: [place] [phone] Performing Lab: [place] [phone] [facility] LIPID PROFILE CHOLESTEROL [MASS/VOLUM E] IN SERUM OR PLASMA 276 mg/dL 0 - 199 08/27 H Specimen Type: PLASMA Comment: TP Per package [...] Jun 25, 2024 03:09 PM Reporting Lab: [place] [phone] Performing Lab: [place] [phone] [facility] LIPID PROFILE CHOLESTEROL IN LDL [MASS/VOLUM E] IN SERUM OR PLASMA BY DIRECT ASSAY 192 mg/dL 0 - 99 08/27 H Specimen Type: PLASMA Comment: TP Per package [...] Jun 25, 2024 03:09 PM Reporting Lab: [place] [phone] Performing Lab: [place] [phone] [facility] LIPID PROFILE CHOLESTEROL IN HDL [MASS/VOLUM E] IN SERUM OR PLASMA 38 mg/dL 40 08/27 L Specimen Type: PLASMA Comment: TP Per package [...] Jun 25, 2024 03:09 PM Reporting Lab: [address] [address] Performing Lab: [place] [phone] [facility] LIPID PROFILE TRIGLYCERID E [MASS/VOLUM E] IN SERUM OR PLASMA 469 mg/dL 0 - 149 08/27 H Specimen Type: PLASMA Comment: TP Per package [...] Jun 25, 2024 03:09 PM Reporting Lab: [place] [phone] Performing Lab: [place] [phone] [facility] ALLERGY PANEL, ZONE 8 HOUSE DUST MITE IGE AB [UNITS/VOLU ME] IN SERUM <0.10k U/L <0.34 - 0.34 07/15 Specimen Type: SERUM No comment entered. Ordering Provider: ISMAEL ESPINAL ON S Report Released Date/Time: Jul 15, 2024 03:37 PM Reporting Lab: [address] [phone] Performing Lab: [place] [phone] [facility] ALLERGY PANEL, ZONE 8 MAURITIAN HOUSE DUST MITE IGE AB [UNITS/VOLU ME] IN SERUM <0.10k U/L <0.34 - 0.34 07/15 Specimen Type: SERUM No comment entered. Ordering Provider: ISMAEL ESPINAL S Report Released Date/Time: Jul 15, 2024 03:37 PM Reporting Lab: [address] [phone] Performing Lab: [place] [phone] [facility] ALLERGY PANEL, ZONE 8 CAT DANDER IGE AB [UNITS/VOLU ME] IN SERUM <0.10k U/L <0.34 - 0.34 07/15 Specimen Type: SERUM No comment entered. Ordering Provider: ISMAEL ESPINAL ON S Report Released Date/Time: Jul 15, 2024 03:37 PM Reporting Lab: [address] [address] Performing Lab: [address] [phone] [facility] ALLERGY PANEL, ZONE 8 DOG DANDER IGE AB [UNITS/VOLU ME] IN SERUM <0.10k U/L <0.34 - 0.34 07/15 Specimen Type: SERUM No comment entered. Ordering Provider: ISMAEL ESPINAL ON [employer] Report Released Date/Time: Jul 15, 2024 03:37 PM Reporting Lab: [address] [address] Performing Lab: [place] [phone] [facility] ALLERGY PANEL, ZONE 8 CANDY GRASS IGE AB [UNITS/VOLU ME] IN SERUM <0.10k U/L <0.34 - 0.34 07/15 Specimen Type: SERUM No comment entered. Ordering Provider: ISMAEL ESPINAL ON [employer] Report Released Date/Time: Jul 15, 2024 03:37 PM Reporting Lab: [place] [phone] Performing Lab: [place] [phone] [facility] ALLERGY PANEL, ZONE 8 BAHIA GRASS IGE AB [UNITS/VOLU ME] IN SERUM <0.10k U/L <0.34 - 0.34 07/15 Specimen Type: SERUM No comment entered. Ordering Provider: ISMAEL ESPINAL Report Released Date/Time: Jul 15, 2024 03:37 PM Reporting Lab: [address] [phone] Performing Lab: [place] [phone] [facility] ALLERGY PANEL, ZONE 8 BERMUDA GRASS IGE AB [UNITS/VOLU ME] IN SERUM <0.10k U/L <0.34 - 0.34 07/15 Specimen Type: SERUM No comment entered. Ordering Provider: ISMAEL ESPINAL ON S Report Released Date/Time: Jul 15, 2024 03:37 PM Reporting Lab: [address] [address] Performing Lab: [address] [address] [facility] ALLERGY PANEL, ZONE 8 [place] IGE AB [UNITS/VOLU ME] IN SERUM <0.10k U/L <0.34 - 0.34 07/15 Specimen Type: SERUM No comment entered. Ordering Provider: ISMAEL ESPINAL Report Released Date/Time: Jul 15, 2024 03:37 PM Reporting Lab: [place] [phone] Performing Lab: [place] [phone] [place] [address] ALLERGY PANEL, ZONE 8 MAURITIAN COCKROACH IGE AB [UNITS/VOLU ME] IN SERUM <0.10k U/L <0.34 - 0.34 07/15 Specimen Type: SERUM No comment entered. Ordering Provider: ISMAEL ESPINAL Report Released Date/Time: Jul 15, 2024 03:37 PM Reporting Lab: [place] [phone] Performing Lab: [place] [phone] ALLERGY PANEL, ZONE 8 PENICILLIUM NOTATUM IGE AB [UNITS/VOLU ME] IN SERUM <0.10k U/L <0.34 - 0.34 07/15 Specimen Type: SERUM No comment entered. Ordering Provider: ISMAEL ESPINAL Report Released Date/Time: Jul 15, 2024 03:37 PM Reporting Lab: [place] [phone] Performing Lab: [place] [phone] [place] [address] ALLERGY PANEL, ZONE 8 CLADOSPORIU M HERBARUM IGE AB [UNITS/VOLU ME] IN SERUM <0.10k U/L <0.34 - 0.34 07/15 Specimen Type: SERUM No comment entered. Ordering Provider: ISMAEL ESPINAL Report Released Date/Time: Jul 15, 2024 03:37 PM Reporting Lab: [place] [phone] Performing Lab: [place] [phone] [facility] ALLERGY PANEL, ZONE 8 ASPERGILLUS FUMIGATUS IGE AB [UNITS/VOLU ME] IN SERUM <0.10k U/L <0.34 - 0.34 07/15 Specimen Type: SERUM No comment entered. Ordering Provider: ISMAEL ESPINAL ON S Report Released Date/Time: Jul 15, 2024 03:37 PM Reporting Lab: [place] [phone] Performing Lab: [place] [phone] [place] [address] ALLERGY PANEL, ZONE 8 MUCOR RACEMOSUS IGE AB [UNITS/VOLU ME] IN SERUM <0.10k U/L <0.34 - 0.34 07/15 Specimen Type: SERUM No comment entered. Ordering Provider: ISMAEL ESPINAL ON S Report Released Date/Time: Jul 15, 2024 03:37 PM Reporting Lab: [place] [phone] Performing Lab: [place] [phone] ALLERGY PANEL, ZONE 8 ALTERNARIA SP IGE AB [UNITS/VOLU ME] IN SERUM <0.10k U/L <0.34 - 0.34 07/15 Specimen Type: SERUM No comment entered. Ordering Provider: ISMAEL ESPINAL ON S Report Released Date/Time: Jul 15, 2024 03:37 PM Reporting Lab: [place] [phone] Performing Lab: [place] [phone] [place] [address] ALLERGY PANEL, ZONE 8 STEMPHYLIUM BOTRYOSUM IGE AB [UNITS/VOLU ME] IN SERUM <0.10k U/L <0.34 - 0.34 07/15 Specimen Type: SERUM No comment entered. Ordering Provider: ISMAEL ESPINAL ON S Report Released Date/Time: Jul 15, 2024 03:37 PM Reporting Lab: [place] [phone] Performing Lab: [place] [phone] ALLERGY PANEL, ZONE 8 MAPLE IGE AB [UNITS/VOLU ME] IN SERUM <0.10k U/L <0.34 - 0.34 07/15 Specimen Type: SERUM No comment entered. Ordering Provider: ISMAEL ESPINAL ON S Report Released Date/Time: Jul 15, 2024 03:37 PM Reporting Lab: [place] [phone] Performing Lab: [place] [phone] [facility] ALLERGY PANEL, ZONE [address] [place] IGE AB [UNITS/VOLU ME] IN SERUM <0.10k U/L <0.34 - 0.34 07/15 Specimen Type: SERUM No comment entered. Ordering Provider: ISMAEL ESPINAL ON S Report Released Date/Time: Jul 15, 2024 03:37 PM Reporting Lab: [place] [phone] Performing Lab: [place] [phone] [place] [address] ALLERGY PANEL, ZONE 8 SWEET GUM IGE AB [UNITS/VOLU ME] IN SERUM <0.10k U/L <0.34 - 0.34 07/15 Specimen Type: SERUM No comment entered. Ordering Provider: ISMAEL ESPINAL ON S Report Released Date/Time: Jul 15, 2024 03:37 PM Reporting Lab: [place] [phone] Performing Lab: [place] [phone] [facility] ALLERGY PANEL, ZONE 8 HAZELNUT POLLEN IGE AB [UNITS/VOLU ME] IN SERUM <0.10k U/L <0.34 - 0.34 07/15 Specimen Type: SERUM No comment entered. Ordering Provider: ISMAEL ESPINAL ON S Report Released Date/Time: Jul 15, 2024 03:37 PM Reporting Lab: [address] [phone] Performing Lab: [address] [address] [facility] ALLERGY PANEL, ZONE 8 WHITE HICKORY IGE AB [UNITS/VOLU ME] IN SERUM <0.10k U/L <0.34 - 0.34 07/15 Specimen Type: SERUM No comment entered. Ordering Provider: ISMAEL ESPINAL ON S Report Released Date/Time: Jul 15, 2024 03:37 PM Reporting Lab: [address] [address] Performing Lab: [address] [address] [facility] ALLERGY PANEL, ZONE 8 MOUNTAIN JUNIPER IGE AB [UNITS/VOLU ME] IN SERUM <0.10k U/L <0.34 - 0.34 07/15 Specimen Type: SERUM No comment entered. Ordering Provider: ISMAEL ESPINAL ON S Report Released Date/Time: Jul 15, 2024 03:37 PM Reporting Lab: [address] [address] Performing Lab: [address] [address] [facility] ALLERGY PANEL, ZONE 8 WHITE [place]AK IGE AB [UNITS/VOLU ME] IN SERUM <0.10k U/L <0.34 - 0.34 07/15 Specimen Type: SERUM No comment entered. Ordering Provider: ISMAEL ESPINAL ON S Report Released Date/Time: Jul 15, 2024 03:37 PM Reporting Lab: [address] [address] Performing Lab: [address] [address] [facility] ALLERGY PANEL, ZONE 8 WHITE MULBERRY IGE AB [UNITS/VOLU ME] IN SERUM <0.10k U/L <0.34 - 0.34 07/15 Specimen Type: SERUM No comment entered. Ordering Provider: ISMAEL ESPINAL ON Nuris Report Released Date/Time: Jul 15, 2024 03:37 PM Reporting Lab: [address] [address] Performing Lab: [address] [address] [facility] ALLERGY PANEL, ZONE 8 WHITE ELM IGE AB [UNITS/VOLU ME] IN SERUM <0.10k U/L <0.34 - 0.34 07/15 Specimen Type: SERUM No comment entered. Ordering Provider: ISMAEL ESPINAL ON S Report Released Date/Time: Jul 15, 2024 03:37 PM Reporting Lab: [address] [phone] Performing Lab: [address] [address] [facility] ALLERGY PANEL, ZONE 8 [place]ON [place] 1 IGE AB [UNITS/VOLU ME] IN SERUM <0.10k U/L <0.34 - 0.34 07/15 Specimen Type: SERUM No comment entered. Ordering Provider: ISMAEL ESPINAL Report Released Date/Time: Jul 15, 2024 03:37 PM Reporting Lab: [place] [phone] Performing Lab: [place] [phone] [place] [address] ALLERGY PANEL, ZONE 8 COMMON PIGWEED IGE AB [UNITS/VOLU ME] IN SERUM <0.10k U/L <0.34 - 0.34 07/15 Specimen Type: SERUM No comment entered. Ordering Provider: ISMAEL ESPINAL Report Released Date/Time: Jul 15, 2024 03:37 PM Reporting Lab: [place] [phone] Performing Lab: [place] [phone] [place] [address] ALLERGY PANEL, ZONE 8 SHEEP SORREL IGE AB [UNITS/VOLU ME] IN SERUM <0.10k U/L <0.34 - 0.34 07/15 Specimen Type: SERUM No comment entered. Ordering Provider: ISMAEL ESPINAL Report Released Date/Time: Jul 15, 2024 03:37 PM Reporting Lab: [place] [phone] Performing Lab: [place] [phone] [facility] ALLERGY PANEL, ZONE 8 NETTLE IGE AB [UNITS/VOLU ME] IN SERUM <0.10k U/L <0.34 - 0.34 07/15 Specimen Type: SERUM No comment entered. Ordering Provider: ISMAEL ESPINAL ON Nuris Report Released Date/Time: Jul 15, 2024 03:37 PM Reporting Lab: [address] [address] Performing Lab: [place] [phone] [facility] ALLERGY PANEL, ZONE 8 MUGWORT IGE AB [UNITS/VOLU ME] IN SERUM <0.10k U/L <0.34 - 0.34 07/15 Specimen Type: SERUM No comment entered. Ordering Provider: ISMAEL ESPINAL ON S Report Released Date/Time: Jul 15, 2024 03:37 PM Reporting Lab: [place] [phone] Performing Lab: [place] [phone] ALLERGY PANEL, ZONE 8 MAL[place] PL[place]AIN IGE AB [UNITS/VOLU ME] IN SERUM <0.10k U/L <0.34 - 0.34 07/15 Specimen Type: SERUM No comment entered. Ordering Provider: ISMAEL ESPINAL Report Released Date/Time: Jul 15, 2024 03:37 PM Reporting Lab: [place] [phone] Performing Lab: [address] IGE IGE [MASS/VOLUM E] IN SERUM <21.0[ IU]/mL <99.9 - 99.9 07/15 Specimen Type: SERUM No comment entered. Ordering Provider: ISMAEL ESPINAL ON S Report Released Date/Time: Jul 15, 2024 03:37 PM Reporting Lab: [place] [phone] Performing Lab: [place] [phone] LIPID PROFILE CHOLESTEROL [MASS/VOLUM E] IN SERUM OR PLASMA 243 mg/dL <199 - 199 06/19 H Specimen Type: PLASMA Comment: DLDLREF RANGE: NEAR [...] Nov 20, 2023 01:30 PM Reporting Lab: [place] [phone] Performing Lab: [place] [phone] [facility] LIPID PROFILE CHOLESTEROL IN LDL [MASS/VOLUM E] IN SERUM OR PLASMA BY DIRECT ASSAY 172 mg/dL 0 - 99 06/19 H Specimen Type: PLASMA Comment: DLDLREF RANGE: NEAR [...] Nov 20, 2023 01:30 PM Reporting Lab: [place] [phone] Performing Lab: [place] [phone] [facility] LIPID PROFILE CHOLESTEROL IN HDL [MASS/VOLUM E] IN SERUM OR PLASMA 33 mg/dL 40 06/19 L Specimen Type: PLASMA Comment: DLDLREF RANGE: NEAR [...] Nov 20, 2023 01:30 PM Reporting Lab: [place] [phone] Performing Lab: [place] [phone] [place] [address] LIPID PROFILE TRIGLYCERID E [MASS/VOLUM E] IN SERUM OR PLASMA 284 mg/dL <149 - 149 06/19 H Specimen Type: PLASMA Comment: DLDLREF RANGE: NEAR [...] Nov 20, 2023 01:30 PM Reporting Lab: [place] [phone] Performing Lab: [place] [phone] [place] [address] MAGNESIUM MAGNESIUM [MASS/VOLUM E] IN SERUM OR PLASMA 2.2 mg/dL 1.6 - 2.6 06/19 Specimen Type: PLASMA Comment: DLDLREF RANGE: NEAR [...] Nov 20, 2023 01:30 PM Reporting Lab: [place] [phone] Performing Lab: [place] [phone] COMPREHEN SIVE METABOLIC PANEL ALBUMIN [MASS/VOLUM E] IN SERUM OR PLASMA 4.8 g/dL 3.5 - 4.8 06/19 Specimen Type: PLASMA Comment: DLDLREF RANGE: NEAR [...] Nov 20, 2023 01:30 PM Reporting Lab: [place] [phone] Performing Lab: [place] [phone] [place] [address] COMPREHEN SIVE METABOLIC PANEL ALKALINE PHOSPHATASE [ENZYMATIC ACTIVITY/VO LUME] IN SERUM OR PLASMA 73 U/L 40 - 150 06/19 Specimen Type: PLASMA Comment: DLDLREF RANGE: NEAR [...] Nov 20, 2023 01:30 PM Reporting Lab: [place] [phone] Performing Lab: [place] [phone] [facility] COMPREHEN SIVE METABOLIC PANEL ALANINE AMINOTRANSF ERASE [ENZYMATIC ACTIVITY/VO LUME] IN SERUM OR PLASMA 25 U/L <55 - 55 06/19 Specimen Type: PLASMA Comment: DLDLREF RANGE: NEAR [...] Nov 20, 2023 01:30 PM Reporting Lab: [place] [phone] Performing Lab: [place] [phone] [facility] COMPREH SIVE METABOLIC PANEL ASPARTATE AMINOTRANSF ERASE [ENZYMATIC ACTIVITY/VO LUME] IN SERUM OR PLASMA 21 U/L 10 - 40 06/19 Specimen Type: PLASMA Comment: DLDLREF RANGE: NEAR [...] Nov 20, 2023 01:30 PM Reporting Lab: [address] [address] Performing Lab: [address] [address] [facility] COMPREHEN SIVE METABOLIC PANEL UREA NITROGEN [MASS/VOLUM E] IN SERUM OR PLASMA 12.0 mg/dL 8.9 - 20.6 06/19 Specimen Type: PLASMA Comment: DLDLREF RANGE: NEAR [...] Nov 20, 2023 01:30 PM Reporting Lab: [address] [address] Performing Lab: [address] [address] [facility] COMPREHEN SIVE METABOLIC PANEL CALCIUM [MASS/VOLUM E] IN SERUM OR PLASMA 9.5 mg/dL 8.6 - 10.3 06/19 Specimen Type: PLASMA Comment: DLDLREF RANGE: NEAR [...] Nov 20, 2023 01:30 PM Reporting Lab: [place] [phone] Performing Lab: [place] [phone] [facility] COMPREHEN SIVE METABOLIC PANEL CREATININE [MASS/VOLUM E] IN SERUM OR PLASMA 1.0 mg/dL 0.7 - 1.3 06/19 Specimen Type: PLASMA Comment: DLDLREF RANGE: NEAR [...] Nov 20, 2023 01:30 PM Reporting Lab: [place] [phone] Performing Lab: [place] [phone] [facility] COMPREHEN SIVE METABOLIC PANEL CARBON DIOXIDE, TOTAL [MOLES/VOLU ME] IN SERUM OR PLASMA 21 mmol/L 22 - 30 06/19 L Specimen Type: PLASMA Comment: DLDLREF RANGE: NEAR [...] Nov 20, 2023 01:30 PM Reporting Lab: [address] [address] Performing Lab: [address] [address] [facility] MET[facility]OLIC PANEL GLUCOSE [MASS/VOLUM E] IN SERUM OR PLASMA 94 mg/dL 74 - 99 06/19 Specimen Type: PLASMA Comment: DLDLREF RANGE: NEAR [...] Nov 20, 2023 01:30 PM Reporting Lab: [place] [phone] Performing Lab: [place] [phone] [facility] COMPREHEN SIVE METABOLIC PANEL PROTEIN [MASS/VOLUM E] IN SERUM OR PLASMA 7.7 g/dL 6.4 - 8.3 06/19 Specimen Type: PLASMA Comment: DLDLREF RANGE: NEAR [...] Nov 20, 2023 01:30 PM Reporting Lab: [place] [phone] Performing Lab: [place] [phone] [facility] COMPREHEN SIVE METABOLIC PANEL SODIUM [MOLES/VOLU ME] IN SERUM OR PLASMA 137 mmol/L 134 - 144 06/19 Specimen Type: PLASMA Comment: DLDLREF RANGE: NEAR [...] Nov 20, 2023 01:30 PM Reporting Lab: [address] [address] Performing Lab: [place] [phone] [facility] COMPREHEN SIVE METABOLIC PANEL CHLORIDE [MOLES/VOLU ME] IN SERUM OR PLASMA 107 mmol/L 99 - 112 06/19 Specimen Type: PLASMA Comment: DLDLREF RANGE: NEAR [...] Nov 20, 2023 01:30 PM Reporting Lab: [address] [address] Performing Lab: [place] [phone] [facility] COMPREHEN SIVE METABOLIC PANEL BILIRUBIN.T OTAL [MASS/VOLUM E] IN SERUM OR PLASMA 0.7 mg/dL 0.2 - 1.2 06/19 Specimen Type: PLASMA Comment: DLDLREF RANGE: NEAR [...] Nov 20, 2023 01:30 PM Reporting Lab: [address] [address] Performing Lab: [address] [address] [facility] METABOLIC PANEL POTASSIUM [MOLES/VOLU ME] IN SERUM OR PLASMA 4.3 mmol/L 3.5 - 5.1 06/19 Specimen Type: PLASMA Comment: DLDLREF RANGE: NEAR [...] Nov 20, 2023 01:30 PM Reporting Lab: [address] [address] Performing Lab: [place] [phone] [facility] COMPREHEN SIVE METABOLIC PANEL ANION GAP IN SERUM OR PLASMA 13 mmol/L 06/19 Specimen Type: PLASMA Comment: DLDLREF RANGE: NEAR [...] Nov 20, 2023 01:30 PM Reporting Lab: [address] [address] Performing Lab: [place] [phone] [facility] COMPREHEN SIVE METABOLIC PANEL GLOMERULAR FILTRATION RATE/1.73 SQ M.PREDICTED [VOLUME RATE/AREA] IN SERUM, PLASMA OR BLOOD BY CREATININE- BASED FORMULA (CKD-EPI 2020) 104.0 mL/min 06/19 Specimen Type: PLASMA Comment: DLDLREF RANGE: NEAR [...] Nov 20, 2023 01:30 PM Reporting Lab: [place] [phone] Performing Lab: [place] [phone] VITAMIN D (TOTAL) 25-HYDROXYV ITAMIN D3+25-HYDRO XYVITAMIN D2 [MASS/VOLUM E] IN SERUM OR PLASMA 9 ng/mL 60 06/19 L Specimen Type: SERUM No comment entered. Ordering Provider: ROSARIO ESCALERA Report Released Date/Time: Nov 20, 2023 01:30 PM Reporting Lab: [place] [phone] Performing Lab: [place] [phone] TSH THYROTROPIN [UNITS/VOLU ME] IN SERUM OR PLASMA BY DETECTION LIMIT <= 0.005 MIU/L 4.701 u[IU]/ mL 0.350 - 4.940 06/19 Specimen Type: PLASMA Comment: DLDLREF RANGE: NEAR [...] Nov 20, 2023 01:30 PM Reporting Lab: [place] [phone] [phone] Performing Lab: [address] [address] [facility] Vital Signs Combined list of inpatient and outpatient Vital Signs from Department of Defense and Veterans Affairs, ranging from 12 months to all on record, depending upon the facility. Vital Sign Value Date Comments Source SYSTOLIC BLOOD PRESSURE 112 11/04/2024 14:25:17 [facility] DIASTOLIC BLOOD PRESSURE 73 11/04/2024 14:25:17 [facility] PULSE OXIMETRY 95 11/04/2024 14:25:17 [facility] WEIGHT 180.56 11/04/2024 14:25:17 [facility] BMI 26 kg/m2 11/04/2024 14:25:17 [facility] PAIN 0 11/04/2024 14:25:17 [facility] TEMPERATURE 97.2 11/04/2024 14:25:17 [facility] PULSE 95 11/04/2024 14:25:17 [facility] SYSTOLIC BLOOD PRESSURE 128 10/21/2024 14:55:25 [facility] DIASTOLIC BLOOD PRESSURE 70 10/21/2024 14:55:25 [facility] PULSE OXIMETRY 95 10/21/2024 14:55:25 C [facility] WEIGHT 183 10/21/2024 14:55:[facility] 26 kg/m2 10/21/2024 14:55[facility] 1 10/21/2024 14:55:25 [facility] HEIGHT 70 10/21/2024 14:55:25 [facility] TEMPERATURE 97.1 10/21/2024 14:55:25 [facility] PULSE 94 10/21/2024 14:55:25 [facility] RESPIRATION 16 10/21/2024 14:55:25 [facility]STOL[facility] 122 09/05/2024 07:18[facility] DIA[facility] 81 09/05/2024 07:18:00 [facility] PULSE OXIMETRY 97 09/05/2024 07:18:00 [facility] 0 09/05/2024 07:18:00 [facility] TEMPERATURE 97.6 09/05/2024 07:18:00 [facility] PULSE 64 09/05/2024 07:18:00 [facility] RESPIRATION 18 09/05/2024 07:18:00 [facility] SYSTOLIC BLOOD PRESSURE 105 09/04/2024 12:39:17 [facility] DIASTOLIC BLOOD PRESSURE 68 09/04/2024 12:39:17 [facility] PULSE OXIMETRY 96 09/04/2024 12:39:17 [facility] 173 09/04/2024 12:39:17 [facility] BMI 25 kg/m2 09/04/2024 12:39:17 [facility] PAIN 1 09/04/2024 12:39:17 [facility] TEMPERATURE 97.6 09/04/2024 12:39:17 [facility] PULSE 75 09/04/2024 12:39:17 [facility] RESPIRATION 18 09/04/2024 12:39:17 [facility] SYSTOLIC BLOOD PRESSURE 124 08/27/2024 14:43:47 [facility] DIASTOLIC BLOOD PRESSURE 84 08/27/2024 14:43:47 [facility] PULSE OXIMETRY 94 08/27/2024 14:43:47 [facility] WEIGHT 172 08/27/2024 14:43:47 [facility] BMI 25 kg/m2 08/27/2024 14:43:47 [facility] PAIN 2 08/27/2024 14:43:47 [facility] HEIGHT 70 08/27/2024 14:43:47 [facility] TEMPERATURE 97.2 08/27/2024 14:43:47 [facility] PULSE 76 08/27/2024 14:43:47 [facility] RESPIRATION 16 08/27/2024 14:43:47 [facility] Encounters Combined list of: 1) Encounters from Department of Veterans Affairs facilities going backup to the last 18 months, not all VA inpatient encounters are included; 2) Encounters from the Department of Defense facilities going backup to 280 months. Location Location Details Encounter Type Encounter Number Reason For Visit Attending Provider ADM Date DC Date Status Disposition Source [facility] OUTPATIENT [id number] ILIANA LEWIS 05/29 Released w/o Limitations [facility](M[facility] D Hearing Conserv ation) [facility] [facility]) OUTPATIENT [id number] Initial Inproce AVI Poole 05/29 Released w/o Limitations [facility] [employer] [facility] ) [facility] OUTPATIENT [id number] FELECIA PARADA 05/29 Released w/o Limitations [facility]) [facility] n([facility] Recruit Sick Call) OUTPATIENT [id number] Notes Entered by: XIMENA ALEGRE 31 May 2013 1035 ------- ------- ------- ------- -- F-2021 Left ankle GIRISH Ashby 05/31 Sick at Home/Quarter s [facility] Recruit [facility]) [facility] n([facility] Second BN BAS) OUTPATIENT [id number] Notes Entered by: XIMENA ALEGRE 02 Jun 2013 0615 ------- ------- ------- ------- -- F-2021 F/U VASCULI TEODORA COLBERT 06/02 Released w/o Limitations [facility] Second BN BAS) [facility] n([facility] Duty Sick Call) OUTPATIENT [id number] Notes Entered by: AUGUSTIN GARCIA I 28 Jun 2013 0914 ------- ------- ------- ------- -- R Knee Pain FOUZIA CHERRIE Flavio 06/28 Released with Work/Duty Limitations [facility] Duty [facility]ick [facility]) [facility] Soheila martinez([facility] [employer]) OUTPATIENT [id number] 2nd visit for inproce MILY Fox 07/04 Released w/o Limitations [facility] [employer] ) [facility] ) OUTPATIENT [id number] Notes Entered by: UMA LINDSAY 06 Jan 2014 0928 ------- ------- ------- ------- -- UMA Astudillo 01/06 Released w/o Limitations [facility]) [facility]) OUTPATIENT [id number] Notes Entered by: Mandie ESTEVEZ 21 Jan 2014 1521 ------- ------- ------- ------- -- ANVI Bui 01/21 Released w/o Limitations [facility] [employer] [facility]) [place]) OUTPATIENT [id number] KAELA Siegel 08/11 Released w/o Limitations [place]( [facility] [place]([facility]) OUTPATIENT [id number] Notes Entered by: CARLA SHEN 18 Nov 2015 0758 ------- ------- ------- ------- -- ingrown toenail right foot BRII MCKAY 11/17 Sick at Home/Quarter s [place]( [facility]) [facility]-B [facility]) OUTPATIENT [id number] DOMI JEREZ 07/19 Released w/o Limitations [facility]( [facility] -B65) [facility]( [facility] [employer]B [facility]) OUTPATIENT [id number] DOMI JEREZ 07/19 Released w/o Limitations [facility]( [facility] -B65) [facility] [employer]) OUTPATIENT [id number] right toe pain ISAI BERNSTEINE 08/01 Released with Work/Duty Limitations [facility]( [facility] e Team 1) [facility]( [facility]B [facility]) OUTPATIENT [id number] ATA Banegas 08/17 Released w/o Limitations [facility]( [facility] -B65) [facility] [employer]) OUTPATIENT [id number] Right knee injury/ (06/25) DEVYN FOLEY 09/22 Released w/o Limitations [facility]( [facility] e Team 1) [facility]) OUTPATIENT [id number] pre-dha DANYEL KAMARA 10/04 Released w/o Limitations [facility]( [facility]) [facility] OUTPATIENT [id number] 10/05/19 17 PRE/VALERIASTERLING GOMEZ 10/05 Released w/o Limitations [facility]( [facility]- [facility]) [facility] [place]([facility]) OUTPATIENT [id number] 503..JASIEL Berg 07/20 Released w/o Limitations [facility] [place] ([facility]) [facility] [employer]) OUTPATIENT [id number] (06/25) hernia [place] 11/21 Released w/o Limitations [facility]( [facility] e Team 1) [facility] OUTPATIENT [id number] Localiz ed swellin g, mass and lump, unspeci fied AVNI MARTIN 12/07 Released w/o Limitations [facility]( General Surgery Clinic) [facility] Mainside Team 1) OUTPATIENT [id number] Notes Entered by: ALEXANDRE ADAMS 12 Dec 2017 1324 ------- ------- ------- ------- -- 06/25 KELLI ROGERS 12/12 Released w/o Limitations [facility]( [facility] Mainarpan e Team 1) [facility](Banneral Surgery Clinic) OUTPATIENT [id number] hernia repair consult - Discuss ultraso und results AVNI MARTIN 12/14 Released w/o Limitations [facility]( General Surgery Clinic) [facility](He aring Conserv-B 65) OUTPATIENT [id number] Notes Entered by: CELI MOHAN 06 Jun 2018 1347 ------- ------- ------- ------- -- XIMENA Soto 06/06 Released w/o Limitations [facility]( Hearing Conserv -B65) [facility] Mainside Team 1) OUTPATIENT [id number] 06/25 alpha final WEST Rosado 06/20 Released w/o Limitations [facility]( [facility] Mainsid e Team 1) [facility] Outpatient Encounter [id number] [id number] 06/19 DOMENICO MUHAMMAD [facility] OFFICE O/P NEW LOW 30 MIN 68092-9.54 [id number] 6 Diagnos is: ICD-10- CM J35.8 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 RENÉE KIRK 06/19 [facility] Outpatient Encounter 95652-5.54 [id number] 1 MARIKA ONEILL 06/19 [facility] EAR AND THROAT EXAMINATIO N 07386-4.54 [id number] 3 DARYL GÓMEZ 06/19 [facility] QNHP OL DIG ASSMT&MGMT 5-10 33011-7.54 [id number] 5 Diagnos is: ICD-10- CM R52 Pain, unspeci fied Chaitanya KNAPP A 06/19 [facility] Outpatient Encounter 05501-5.54 [id number] 8 06/19 [facility] Outpatient Encounter 68895-8.54 [id number] 2 06/19 [facility] Outpatient Encounter 20416-5.54 [id number] 8 06/19 [facility] Outpatient Encounter [id number] [id number] 06/19 [facility] Outpatient Encounter 88131-7.54 [id number] 3 06/19 [facility] Outpatient Encounter 72958-5.54 [id number] 06/20 [facility] Outpatient Encounter 36755-3.54 [id number] 06/21 [facility] Outpatient Encounter 74731-9.54 [id number] DONAVAN CLOUD CIA 06/25 [facility] Outpatient Encounter 46077-4.54 [id number] CANDELARIA DOBBINS 06/25 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 NAZ ONEILLWN 07/31 [facility] PSYTX W PT 30 MINUTES 14616-8.54 [id number] 230 Diagnos is: ICD-10- CM F43.12 Post-tr aumatic stress disorde r, chronic DONAVAN CLOUD CIA M 08/09 [facility] MTMS BY PHARM ADDL 15 MIN 09694-5.54 [id number] 094 Diagnos is: ICD-10- CM F43.12 Post-tr aumatic stress disorde r, chronic WILLBORN,R ALLISON J 08/09 [facility] PSYTX W PT 30 MINUTES 12076-9.54 [id number] 108 Diagnos is: ICD-10- CM F32.9 Major depress jakob disorde r, single episode , unspeci fiDONAVAN Narayanan CIA M 08/22 [facility] Outpatient Encounter [id number] [id number] 08/22 [facility] MTMS BY PHARM ADDL 15 MIN 43135-3.54 [id number] 332 Diagnos is: ICD-10- CM F43.12 Post-tr aumatic stress disorde r, chronic WILLBORN,R ALLISON J 09/02 [facility] HC PRO PHONE CALL 5-10 MIN 76416-1.54 [id number] 5 Diagnos is: ICD-10- CM Z71.89 Other specifi ed memorial counselor ing IVONNE GOETZ REG K 09/02 [facility] Outpatient Encounter 94601-4.54 [id number] 3 09/03 [place] PSYTX W PT 30 MINUTES 60422-2.54 [id number] 520 Diagnos is: ICD-10- CM F43.12 Post-tr aumatic stress disorde r, chronic DONAVAN CLOUD CIA M 09/06 [place] [facility] Outpatient Encounter 53691-5.54 [id number] DONAVAN CLOUD CIA M 09/09 [place] HC PRO PHONE CALL 11-20 MIN 12588-4.54 [id number] 793 Diagnos is: ICD-10- CM F43.12 Post-tr aumatic stress disorde r, chronic DONAVAN CLOUD CIA M 09/09 [place] [facility] Outpatient Encounter 65911-6.54 [id number] 5 DONAVAN CLOUD CIA M 09/10 [facility] PSYTX W PT 60 MINUTES 94834-4.54 [id number] 3 Diagnos is: ICD-10- CM R45.851 Suicida l ideatio ns DEJAN CASANOVA 09/11 [place] PSYTX W PT 30 MINUTES 57763-1.54 [id number] 991 Diagnos is: ICD-10- CM F60.9 Persona lity disorde r, unspeci fied DONAVAN CLOUD CIA M 09/12 [place] [facility] Outpatient Encounter 62712-0.54 [id number] DEJAN CASANOVA A 09/16 [facility] [employer] INTER[employer] GRIND[employer] TENDER INDIVIDU 68866-8.54 [id number] 1 Diagnos is: ICD-10- CM Z71.81 Spiritu al or religio us memorial counselor BECCA Casillas 09/16 [facility] PSYTX W PT 60 MINUTES 33884-5.54 [id number] 2 Diagnos is: ICD-10- CM R45.851 Suicida l ideatio DEJAN Rodriguez YOLIE Abbott 09/16 [place] MTMS BY PHARM ADDL 15 MIN 04839-9.54 [id number] 104 Diagnos is: ICD-10- CM F43.12 Post-tr aumatic stress disorde r, chronic WILLBORN,R ALLISON J 09/20 [place] [facility] PSYTX W PT 60 MINUTES 13881-7.54 [id number] 8 Diagnos is: ICD-10- CM R45.851 Suicida l ideatio DEJAN Rodriguez YOLIE Abbott 09/23 [facility] Outpatient Encounter 98739-0.54 [id number] DONAVAN CLOUD CIA 09/27 [facility] [employer] INTER[employer] T[employer]ER INDIVIDU 27955-0.54 [id number] 6 Diagnos is: ICD-10- CM Z71.81 Spiritu al or religio us memorial counselor ing BECCA VENCES 09/30 [facility] PSYTX W PT 60 MINUTES 07388-3.54 [id number] 8 Diagnos is: ICD-10- CM R45.851 Suicida l ideatio DEJAN Rodriguez YOLIE Abbott 09/30 [place] HC PRO PHONE CALL 5-10 MIN 86748-2.54 [id number] 103 Diagnos is: ICD-10- CM F43.12 Post-tr aumatic stress disorde r, chronic DONAVAN CLOUD CIA 10/04 [place] [facility] [employer] T[employer]ER INDIVIDU 05103-7.54 [id number] Diagnos is: ICD-10- CM Z71.81 Spiritu al or religio us memorial counselor ing BECCA VENCES 10/07 [facility] PSYTX W PT 60 MINUTES 69496-7.54 [id number] 3 Diagnos is: ICD-10- CM R45.851 Suicida l ideatio DEJAN Rodriguez A 10/07 [facility] PROGRAM INTAKE ASSESSMENT 21410-154 [id number] 215 Diagnos is: ICD-10- CM F43.12 Post-tr aumatic stress disorde r, chronic JOSHUA CHARU F 10/10 [facility] PSYTX W PT 60 MINUTES 70606-0.54 [id number] 5 Diagnos is: ICD-10- CM R45.851 Suicida l ideatio DEJAN Rodriguez A 10/14 [facility] PSYCH DIAGNOSTIC EVALUATION 03374-3.54 [id number] Diagnos is: ICD-10- CM F43.12 Post-tr aumatic stress disorde r, chronic MICHAEL WALKERNE A 10/18 [facility] Outpatient Encounter 33772-7.54 [id number] 2 WALKERMICHAEL FRANKLIN A 10/18 [facility] [employer] INTER[employer] GR[employer] T[employer]ER INDIVIDU 62467-6.54 [id number] 4 Diagnos is: ICD-10- CM Z71.81 Spiritu al or religio us memorial counselor BECCA Casillas 10/21 [facility] GROUP PSYCHOTHER APY 41816-2.54 [id number] 587 Diagnos is: ICD-10- CM F43.12 Post-tr aumatic stress disorde r, chronic Chaitanya NAIR 10/21 [facility] PSYTX W PT 60 MINUTES 08798-754 [id number] 8 Diagnos is: ICD-10- CM R45.851 Suicida l ideajohno DEJAN Rodriguez A 10/21 [facility] Outpatient Encounter 08439-6.54 [id number] 10/22 [facility] OFFICE O/P NEW LOW 30 MIN 89580-9.54 [id number] 6 Diagnos is: ICD-10- CM G47.30 Sleep apnea, unspeci fied BEN EDWARDS 10/22 [facility] CASE MANAGEMENT 25593-4.54 [id number] 513 Diagnos is: ICD-10- CM F43.12 Post-tr aumatic stress disorde r, chronic JAME FENG N B 10/23 [facility] Outpatient Encounter 45888-7.54 [id number] 10/24 [facility] PSYCHOTHER APY 19538-2.54 [id number] Diagnos is: ICD-10- CM F43.12 Post-tr aumatic stress disorde r, chronic MARY GUERRERO 10/25 [facility] PSYTX W PT 60 MINUTES 42831-9.54 [id number] 2 Diagnos is: ICD-10- CM F43.12 Post-tr aumatic stress disorde r, chronic DEJAN CASANOVA 10/28 [facility] PSYCHOTHER APY 87135-7.54 [id number] 266 Diagnos is: ICD-10- CM F43.12 Post-tr aumatic stress disorde r, chronic Chaitanya NAIR N 10/29 [facility] PSYTX W PT 60 MINUTES 03530-1.54 [id number].[id number] 507 Diagnos is: ICD-10- CM F32.9 Major depress jakob disorde r, single episode , unspeci fied JAME FENG N B 10/30 [facility] MTMS BY PHARM ADDL 15 MIN 15500-9.54 [id number] 034 Diagnos is: ICD-10- CM F43.12 Post-tr aumatic stress disorde r, chronic WILLJALEESA,R ALLISON J 10/31 [facility] PSYTX W PT 30 MINUTES 13644-9.54 [id number] 388 Diagnos is: ICD-10- CM F43.12 Post-tr aumatic stress disorde r, chronic DONAVAN CLOUD CIA M 10/31 [place] [facility] Outpatient Encounter 29510-7.54 [id number] 4 11/01 [facility] PSYCHOTHER APY 56032-0.54 [id number] Diagnos is: ICD-10- CM F43.12 Post-tr aumatic stress disorde r, chronic MARY GUERREROIN 11/01 [facility] [employer] T[employer] INDIVIDU 22277-6.54 [id number] 9 Diagnos is: ICD-10- CM Z71.81 Spiritu al or religio us memorial counselor ing BECCA VENCES 11/04 [facility] PSYTX W PT 60 MINUTES 90687-9.54 [id number] 5 Diagnos is: ICD-10- CM F60.9 Persona lity disorde r, unspeci DEJAN Yang A 11/04 [facility] ADDL 21013-9.54 [id number] 120 Diagnos is: ICD-10- CM F43.12 Post-tr aumatic stress disorde r, chronic Chaitanya NAIR N 11/05 [facility] GROUP PSYCHOTHER APY 39978-0.54 [id number] Diagnos is: ICD-10- CM F43.12 Post-tr aumatic stress disorde r, chronic CHARU LEWIS F 11/08 [facility] CASE MANAGEMENT 32395-954 [id number] 744 Diagnos is: ICD-10- CM F32.9 Major depress jakob disorde r, single episode , unspeci fied FENG,IA N B 11/08 [facility] GROUP PSYCHOTHER APY 56329-1.54 [id number] 963 Diagnos is: ICD-10- CM F43.12 Post-tr aumatic stress disorde r, chronic Chaitanya NAIR KEVAN N 11/12 [facility] PSYTX W PT 60 MINUTES 04164-4.54 [id number] 9 Diagnos is: ICD-10- CM R45.851 Suicida l ideasavanna hdz DEJAN CASANOVA YOLIE A 11/12 [facility] PSYTX W PT 45 MINUTES 28929-1.54 [id number].[id number] 329 Diagnos is: ICD-10- CM F32.9 Major depress jakob disorde r, single episode , unspeci fied FENG,IA N B 11/13 [facility] PSYTX W PT 30 MINUTES 84654-0.54 [id number].[id number] 939 Diagnos is: ICD-10- CM F43.12 Post-tr aumatic stress disorde r, chronic PEDRO LUISDONAVAN MENESES M 11/15 [place] [facility] PSYTX W PT 45 MINUTES 77062-3.54 [id number].[id number] 266 Diagnos is: ICD-10- CM F43.12 Post-tr aumatic stress disorde r, chronic DONAVAN CLOUD CIA M 11/18 [place] [facility] [employer] T[employer] INDIVIDU 05344-3.54 [id number] 5 Diagnos is: ICD-10- CM Z71.81 Spiritu al or religio us memorial counselor BECCA Casillas 11/18 [facility] Outpatient Encounter 20166-9.54 [id number] DONAVAN CLOUD CIA 11/18 [place] MTMS BY PHARM ADDL 15 MIN 18431-3.54 [id number] 380 Diagnos is: ICD-10- CM F43.12 Post-tr aumatic stress disorde r, chronic WILLBORN,R ALLISON J 11/19 [place] [facility] Outpatient Encounter 44613-7.54 [id number] 11/19 [facility] Outpatient Encounter 55691-4.54 [id number] ROSARIO ESCALERA Chaitanya 11/19 [place] [facility] PSYTX W PT 60 MINUTES 32208-1.54 [id number] 8 Diagnos is: ICD-10- CM R45.851 Suicida l ideaDEJAN Whalen A 11/25 [facility] FAC[facility] FEE 91621-4.54 [id number] 6 Diagnos is: ICD-10- CM G47.30 Sleep apnea, unspeci fied Chaitanya ROSS UCYOLI 11/25 [facility] Outpatient Encounter 88557-1.54 [id number] 11/27 [facility] PREPARATIO N OF REPORT 21825-454 [id number] 473 Diagnos is: ICD-10- CM F32.9 Major depress jakob disorde r, single episode , unspeci fied JAME FENG N B 11/28 [facility] [employer] T[employer] INDIV[employer]U 22146-9.54 [id number] 7 Diagnos is: ICD-10- CM Z71.81 Spiritu al or religio us memorial counselor ing BECCA VENCES 12/02 [facility] Outpatient Encounter 56440-7.54 [id number] 8 12/02 [place] MTMS BY PHARM ADDL 15 MIN 26801-6.54 [id number] 467 Diagnos is: ICD-10- CM F43.12 Post-tr aumatic stress disorde r, chronic WILLBORN,R ALLISON J 12/03 [place] [facility] JOB TRAINING SPECIALIST STDY UNATTENDED 06820-6.54 [id number] 8 Diagnos is: ICD-10- CM G47.33 Obstruc tive sleep apnea (adult) ([facility]) BEN EDWARDS 12/03 [facility] PSYTX W PT 60 MINUTES 02509-7.54 [id number] 1 Diagnos is: ICD-10- CM R45.851 Suicida l ideatio DEJAN Rodriguez A 12/05 [place] PSYTX W PT 30 MINUTES 15089-6.54 [id number] 214 Diagnos is: ICD-10- CM F43.12 Post-tr aumatic stress disorde r, chronic DONAVAN CLOUD CIA M 12/06 [facility] Y [facility] [employer] GR[employer] T[employer] INDIV[employer]U 23684-5.54 [id number] 8 Diagnos is: ICD-10- CM Z71.81 Spiritu al or religio us memorial counselor ing BECCA VENCES 12/08 [facility] PSYTX W PT 60 MINUTES 31314-2.54 [id number] 4 Diagnos is: ICD-10- CM R45.851 Suicida l ideatio DEJAN Rodriguez A 12/09 [facility] Outpatient Encounter 63012-9.54 [id number] DONAVAN CLOUD CIA 12/10 [place] PSYTX W PT 30 MINUTES 96234-5.54 [id number] 508 Diagnos is: ICD-10- CM F43.12 Post-tr aumatic stress disorde r, chronic DONAVAN CLOUD CIA M 12/12 [facility] PSYTX W PT 60 MINUTES 55957-8.54 [id number] 6 Diagnos is: ICD-10- CM R45.851 Suicida l ideatio DEJAN Rodriguez A 12/16 [facility] Outpatient Encounter 19586-4.54 [id number] 5 12/23 [place] MTMS BY PHARM ADDL 15 MIN 38610-4.54 [id number].[id number] 155 Diagnos is: ICD-10- CM F43.12 Post-tr aumatic stress disorde r, chronic WILLBORN,R ALLISON J 12/24 [place] [facility] OFFICE O/P EST MOD 30 MIN 05923-2.54 [id number] 529 Diagnos is: ICD-10- CM 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 DE MIKEROSARIO 12/26 [place] [facility] Outpatient Encounter 73003-3.54 [id number] 4 12/27 [facility] [employer] INDIV[employer]U 99409-1.54 [id number] 4 Diagnos is: ICD-10- CM Z71.81 Spiritu al or religio us memorial counselor ing BECCA VENCES 12/27 [facility] OFFICE O/P EST LOW 20 MIN 70286-8.54 [id number] 0 Diagnos is: ICD-10- CM D72.829 Elevate d white blood cell count, unspeci CARMINA Hart M 12/29 [place] PSYTX W PT 45 MINUTES 57265-0.54 [id number] 852 Diagnos is: ICD-10- CM F43.12 Post-tr aumatic stress disorde r, chronic PEDRO LUIS,DONAVAN GIDEON M 01/02 [place] [facility] [employer] T[employer] INDIVIDU 63059-9.54 [id number] 9 Diagnos is: ICD-10- CM Z71.81 Spiritu al or religio us memorial counselor ing BECCA VENCES 01/10 [facility] Outpatient Encounter 22988-8.54 [id number] 1 01/16 [facility] [employer] T[employer] INDIV[employer]U 25754-8.54 [id number] 0 Diagnos is: ICD-10- CM Z71.81 Spiritu al or religio us memorial counselor BECCA Casillas 01/20 [place] MTMS BY PHARM ADDL 15 MIN 46973-6.54 [id number] 765 Diagnos is: ICD-10- CM F43.12 Post-tr aumatic stress disorde r, chronic WILLBORN,R ALLISON J 01/21 [facility] PSYTX W PT 30 MINUTES 48051-3.54 [id number] 658 Diagnos is: ICD-10- CM F43.12 Post-tr aumatic stress disorde r, chronic PEDRO LUIS,ALI GIDEON M 01/27 [facility] Outpatient Encounter 75144-8.54 [id number] 6 [facility] 61324-8.54 [id number] 7 Diagnos is: ICD-10- CM Z71.81 Spiritu al or religio us memorial counselor ing BECCA VENCES 02/05 [place] Outpatient Encounter 30289-3.54 [id number] 02/06 [facility] OFFICE O/P NEW HI 60 MIN 71406-2.54 [id number] 4 Diagnos is: ICD-10- CM G43.009 Migrain e w/o aura, not intract able, w/o status migrain osus KINA IZQUIERDO 02/13 [facility] Outpatient Encounter 59900-2.54 [id number] 8 LINDA WHITE 02[facility]19 [facility] 96952-0.54 [id number] 4 Diagnos is: ICD-10- CM Z71.81 Spiritu al or religio us memorial counselor ing BECCA VENCES 02/19 [facility] Outpatient Encounter 22730-3.54 [id number] 3 02/19 [facility] MTMS BY PHARM ADDL 15 MIN 36885-7.54 [id number] 137 Diagnos is: ICD-10- CM F43.12 Post-tr aumatic stress disorde r, chronic WILLBORN,R ALLISON J 02/20 [place] [facility] OFFICE O/P EST LOW 20 MIN 50669-2.54 [id number] 2 Diagnos is: ICD-10- CM G47.00 Insomni a, unspeci fikristie BEN EDWARDS 02/25 [facility] [employer] 37413-7.54 [id number] 2 Diagnos is: ICD-10- CM Z71.81 Spiritu al or religio us memorial counselor ing BECCA VENCES 02/28 [facility] Outpatient Encounter 83368-8.54 [id number] 4 03/03 [facility] OFFICE O/P NEW MOD 45 MIN 25252-3.54 [id number] 0 Diagnos is: ICD-10- CM M54.12 Radicul opathy, cervica l region [facility] BENEDICT GARCIA 03/04 [facility] [employer] 40811-8.54 [id number] 0 Diagnos is: ICD-10- CM Z71.81 Spiritu al or religio us memorial counselor ing BECCA VENCES 03/07 [place] PSYTX W PT 30 MINUTES 66750-0.54 1GC.[id number] 243 Diagnos is: ICD-10- CM F43.12 Post-tr aumatic stress disorde r, chronic DONAVAN CLOUD CIA M 03/14 [place] [facility] STRESS MGMT CLASS 47017-4.54 [id number] 1 Diagnos is: ICD-10- CM G43.009 Migrain e w/o aura, not intract able, w/o status migrain osROSARIO Shay 03/19 [facility] INTERNAL [employer] GROUP 92230-7.54 [id number] 1 Diagnos is: ICD-10- CM Z71.81 Spiritu al or religio us memorial counselor ing RESBECCA LINTON 03/21 [place] THERAPEUTI C EXERCISES 43255-4.54 [id number].[id number] 217 Diagnos is: ICD-10- CM M54.40 Lumbago with sciatic a, unspeci fied side EATONFRANCA S 03/21 [facility] INTERNAL GR[employer] T[employer]ER INDIVIDU 17888-2.54 [id number] 8 Diagnos is: ICD-10- CM Z71.81 Spiritu al or religio us memorial counselor ing BECCA VENCES 03/26 [place] MTMS BY PHARM ADDL 15 MIN 97794-5.54 [id number].[id number] 437 Diagnos is: ICD-10- CM F43.12 Post-tr aumatic stress disorde r, chronic WILLJALEESA,Spencer ALLISON J 03/27 [facility] INTERNAL [employer] GROUP 30439-2.54 [id number] 9 Diagnos is: ICD-10- CM Z71.81 Spiritu al or religio us memorial counselor ing BECCA VENCES 03/28 [place] STRESS MGMT CLASS 95157-4.54 [id number].[id number] 091 Diagnos is: ICD-10- CM F60.9 Persona lity disorde r, unspeci fied DONAVAN CLOUD CIA 04/02 [facility] INTERNAL [employer]ER GROUP 53883-2.54 [id number] 1 Diagnos is: ICD-10- CM Z71.81 Spiritu al or religio us memorial counselor ing BECCA VENCSE 04/04 [facility] INTERNAL [employer] T[employer]ER INDIV[employer]U 64019-3.54 [id number] 1 Diagnos is: ICD-10- CM Z71.81 Spiritu al or religio us memorial counselor ing VANGIEBECCA BERNADETTE 04/07 [place] STRESS MGMT CLASS 74050-3.54 [id number].[id number] 325 Diagnos is: ICD-10- CM F43.12 Post-tr aumatic stress disorde r, chronic DONAVAN CLOUD CIA M 04/08 [place] [facility] THERAPEUTI C EXERCISES 43404-2.54 1GC.[id number] 412 Diagnos is: ICD-10- CM M54.50 Low back pain, unspeci fied EATON,FRANCA S [facility] 89548-8.54 [id number] 3 Diagnos is: ICD-10- CM Z71.81 Spiritu al or religio us memorial counselor ing BECCA VENCES 04/11 [place] SELF-MGMT EDUC & TRAIN 1 [place] 337[address]-3.54 [id number] 338 Diagnos is: ICD-10- CM F60.9 Persona lity disorde r, unspeci fied DONAVAN CLOUD CIA M 04/21 [facility] INTERNAL [employer] INDIVIDU 55176-7.54 [id number] Diagnos is: ICD-10- CM Z71.81 Spiritu al or religio us memorial counselor ing BECCA VENCES Scar BERNADETTE 04/21 [place] MTMS BY PHARM ADDL 15 MIN 02577-5.54 [id number] Diagnos is: ICD-10- CM F43.12 Post-tr aumatic stress disorde r, chronic WILLBORN,R ALLISON J 04/29 [place] [facility] THERAPEUTI C EXERCISES 90082-2.54 [id number] Diagnos is: ICD-10- CM M54.50 Low back pain, unspeci fied EATON,FRANCA S 05/02 [place] [facility] OFFICE O/P EST HI 40 MIN 85624-7.54 [id number] Diagnos is: ICD-10- CM G43.709 Chronic migrain e w/o aura, not intract able, w/o stat migr FELECIAKINA HOLT 05/08 [place] STRESS MGMT CLASS 24379-9.54 [id number] 002 Diagnos is: ICD-10- CM F60.9 Persona lity disorde r, unspeci DONAVAN Epps CIA 05/12 [place] [facility] [employer]TER [employer] 39231-3.54 [id number] Diagnos is: ICD-10- CM Z71.81 Spiritu al or religio us memorial counselor ing BECCA VENCES 05/12 [facility] IVNTJ INDIV 1ST 30 02419-9.54 [id number] Diagnos is: ICD-10- CM G43.909 Migrain e, unsp, not intract able, without status migrain ROSARIO Hillman 05/14 [facility] Outpatient Encounter 17655-9.54 [id number] 05/14 [place] STRESS MGMT CLASS 87393-5.54 [id number] Diagnos is: ICD-10- CM F60.9 Persona lity disorde r, unspeci DONAVAN Epps CIA 05/26 [place] [facility] MTMS BY PHARM ADDL 15 MIN 52993-6.54 [id number] 004 Diagnos is: ICD-10- CM F43.12 Post-tr aumatic stress disorde r, chronic WILLBORN,R ALLISON J 05/26 [place] [facility] [employer] 30850-2.54 [id number] Diagnos is: ICD-10- CM Z71.81 Spiritu al or religio us memorial counselor ing BECCA VENCES 05/28 [place] Outpatient Encounter 70919-4.54 [id number] 05/28 [place] [facility] THERAPEUTI C EXERCISES 78835-1.54 [id number] Diagnos is: ICD-10- CM M54.50 Low back pain, unspeci fied FRANCA HDZ S 06/04 [place] [facility] PSYCH DIAGNOSTIC EVALUATION 40220-2.54 [id number] Diagnos is: ICD-10- CM F51.01 Primary insomni a BRANDI LOPEZ STIN E 06/06 [facility] Outpatient Encounter 07187-9.54 [id number] BRANDI LOPEZ STIN E 06/06 [place] STRESS MGMT CLASS 91515-2.54 [id number] Diagnos is: ICD-10- CM F60.9 Persona lity disorde r, unspeci fied DONAVAN CLOUD CIA M 06/09 [facility] HUNTER GUIDE INTERNAL GRINDER TENDER INDIVIDU 99530-5.54 [id number] Diagnos is: ICD-10- CM Z71.81 Spiritu al or religio us memorial counselor BECCA Casillas 06/16 [facility] OFF/OP CONSLTJ NEW/EST SF 20 80720-6.54 [id number] Diagnos is: ICD-10- CM Z90.81 Acquire d absence of spleen QIAN SLAUGHTER 06/23 [place] MTMS BY PHARM ADDL 15 MIN [id number] [id number] Diagnos is: ICD-10- CM F43.12 Post-tr aumatic stress disorde r, chronic WILLSpencer LAZCANO ALLISON J 06/25 [place] [facility] Outpatient Encounter [id number] [id number] 06/25 [place] OFFICE O/P EST MOD 30 MIN 84664-4.54 [id number] Diagnos is: ICD-10- CM 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 DE ROSARIO MCKEON 06/25 [place] [facility] OFFICE O/P EST MOD 30 MIN 63211-4.54 [id number] Diagnos is: ICD-10- CM M54.12 Radicul opathy, cervica l region ZUMBAR,[facility] BENEDICT GARCIA 06/25 [facility] HUNTER GU[employer] INTERNAL GRINDER TENDER INDIVIDU 66195-0.54 [id number] Diagnos is: ICD-10- CM Z71.81 Spiritu al or religio us memorial counselor ing BECCA VENCES 06/30 [place] PSYTX W PT 45 MINUTES 22065-3.54 [id number] Diagnos is: ICD-10- CM F43.12 Post-tr aumatic stress disorde r, chronic PEDRO LUISDONAVAN CIA M 07/03 [facility] OFF/OP CNSLTJ NEW/EST LOW 30 77817-4.54 [id number] Diagnos is: ICD-10- CM Z98.52 Vasecto my status QIAN ORTEGA Sonya A 07[facility] 30 MINUTES 36259-3.54 [id number] Diagnos is: ICD-10- CM F51.01 Primary insomni a BRANDI LOPEZ E 07/11 [facility] HUNTER GU[employer] INTERNAL GRINDER TENDER INDIVIDU 98825-5.54 [id number] Diagnos is: ICD-10- CM Z71.81 Spiritu al or religio us memorial counselor ing BECCA VENCES 07/14 [facility] O/P EST MOD 30 MIN 72967-9.54 [id number] 4 Diagnos is: ICD-10- CM J34.2 Deviate d nasal septum THEA ESPINAL 07/15 [facility] OFF/OP CNSLTJ NEW/EST LOW 30 66443-1.54 [id number] 8 Diagnos is: ICD-10- CM M54.2 Cervica lgia ABI VINSON A 07/17 [facility] Outpatient Encounter 51659-7.54 [id number] 07/18 [facility] W PT 45 MINUTES 40907-2.54 [id number] Diagnos is: ICD-10- CM F43.12 Post-tr aumatic stress disorde r, chronic DONAVAN CLOUD CIA M 07/18 [place] [facility] BY PHARM ADDL 15 MIN 90196-3.54 [id number] Diagnos is: ICD-10- CM F43.12 Post-tr aumatic stress disorde r, chronic Spencer TENORIO J 07/18 [place] [facility] Outpatient Encounter 44497-5.54 [id number] 07/21 [facility] Outpatient Encounter [id number] [id number] 07/21 [facility] Outpatient Encounter 86965-5.54 [id number] 07/21 [facility] Outpatient Encounter 61968-9.54 [id number] Diagnos is: ICD-10- CM Z30.2 Encount er for sterili alanaJOE Vegas 07/21 [facility] Outpatient Encounter [id number] [id number] JOE HAHN 07/21 [facility] REMOVAL OF SPERM DUCT(S) 20452-1.54 [id number] MAGDALENA COBOS 07/21 [facility] Outpatient Encounter [id number] [id number] 07/21 [facility] Outpatient Encounter [id number] [id number] 07/21 [facility] Outpatient Encounter 11600-4.54 [id number] 07/21 [facility] Outpatient Encounter 03819-7.54 [id number] RAJURAJEE NM 07/23 [facility] H[employer]TER GU[employer] INTERNAL GRINDER TENDER INDIVIDU 30719-3.54 [id number] Diagnos is: ICD-10- CM Z71.81 Spiritu al or religio us memorial counselor ing BECCA VENCES 07/30 [facility] PSYTX W PT 30 MINUTES [id number] [id number] Diagnos is: ICD-10- CM F43.12 Post-tr aumatic stress disorde r, chronic PEDRO LUIS,ALI GIDEON M 08/07 PUR[facility] Lewis [facility] OFFICE O/P EST MOD 30 MIN 19072-4.54 [id number] Diagnos is: ICD-10- CM R09.81 Nasal congest ion THEA ESPINAL NON S 08/11 [facility] Outpatient Encounter [id number] [id number] 08/11 [facility] Outpatient Encounter [id number] [id number] 08/11 [facility] PSYTX W PT 60 MINUTES 67313-3.54 [id number] Diagnos is: ICD-10- CM F51.01 Primary insomni a BRANDI LOPEZ E 08/13 [facility] Outpatient Encounter [id number] [id number] BRANDI LOPEZ E 08/15 [facility] HUNTER GUIDE INTERNAL GRINDER TENDER INDIVIDU 91514-1.54 [id number] Diagnos is: ICD-10- CM Z71.81 Spiritu al or religio us memorial counselor BECCA Casillas Scar BERNADETTE 08/15 [facility] OFFICE O/P EST MOD 30 MIN 77282-8.54 [id number] Diagnos is: ICD-10- CM J35.2 Hypertr ophy of adenoid s YOHANNES JOHNS 08/20 [facility] Outpatient Encounter 85536-6.54 [id number] 08/20 [facility] Outpatient Encounter [id number] [id number] 08/20 [facility] PSYTX W PT 60 MINUTES 50465-6.54 [id number] 5 Diagnos is: ICD-10- CM F51.01 Primary insomni a BRANDI LOPEZ E 08/22 [facility] OFF/OP EST MAY X REQ PHY/QHP 65269-6.54 [id number] 4 Diagnos is: ICD-10- CM Z01.818 Encount er for other preproc edural examina tion FUSLARISA,PALMER LIE 08/26 [facility] OFFICE O/P NEW LOW 30 MIN 38741-5.54 [id number] Diagnos is: ICD-10- CM Z01.810 Encount er for preproc edural cardiov ascular examina tion ARMANDO SCHULTZ 08/26 [facility] MTMS BY PHARM ADDL 15 MIN 73616-0.54 [id number] Diagnos is: ICD-10- CM F43.12 Post-tr aumatic stress disorde r, chronic WILLBORN,R ALLISON J 08/27 [facility] PSYCH DIAGNOSTIC EVALUATION 85394-4.54 [id number] Diagnos is: ICD-10- CM F43.12 Post-tr aumatic stress disorde r, chronic DONAVAN CLOUD CIA M 08/28 [place] [facility] PSYTX W PT 45 MINUTES 24260-5.54 [id number] Diagnos is: ICD-10- CM F51.01 Primary insomni a BRANDI LOPEZ STIN E 08/29 [facility] PSYTX W PT 60 MINUTES 39112-4.54 [id number] Diagnos is: ICD-10- CM F51.01 Primary insomni a BRANDI LOPEZ STIN E 09/03 [facility] HUNTER GUIDE INTERNAL GRINDER TENDER INDIVIDU 98465-0.54 [id number] Diagnos is: ICD-10- CM Z71.81 Spiritu al or religio us memorial counselor ing BECCA VENCES 09/03 [facility] OFFICE O/P EST HI 40 MIN 50879-8.54 [id number] 3 Diagnos is: ICD-10- CM G43.809 Other migrain e, not intract able, without status migrain osus KINA IZQUIERDO 09/04 [facility] Outpatient Encounter [id number] [id number] 09/05 [facility] OFFICE O/P EST HI 40 MIN 89021-1.54 [id number] Diagnos is: ICD-10- CM J34.2 Deviate d nasal septum Nuris LOYD 09/05 [facility] Outpatient Encounter [id number] [id number] 09/05 [facility] Outpatient Encounter [id number] [id number] YOHANNES JOHNS 09/05 [facility] ABLATE INF TURBINATE SUBMUC 57273-0.54 [id number] DARYL ECHAVARRIA LEX 09/05 [facility] Outpatient Encounter [id number] [id number] 09/05 [facility] Outpatient Encounter [id number] [id number] 09/05 [facility] Outpatient Encounter [id number] [id number] KEBEDEYVROSE 09/08 [facility] Outpatient Encounter 64770-2.54 [id number] 09/08 [facility] Outpatient Encounter [id number] [id number] 09/10 [facility] Outpatient Encounter [id number] [id number] 09/10 [facility] Outpatient Encounter [id number] [id number] 09/16 [facility] Outpatient Encounter 60262-3.54 [id number] YVROSE KEBEDE 09/22 [facility] POSTOP FOLLOW-UP VISIT 61048-7.54 [id number] Diagnos is: ICD-10- CM J35.2 Hypertr ophy of adenoid s YOHANNES JOHNS DANETTE 09/25 [facility] HUNTER GUIDE INTERNAL GRINDER TENDER INDIVIDU 59549-5.54 [id number] Diagnos is: ICD-10- CM Z71.81 Spiritu al or religio us memorial counselor BECCA Casillas 09/26 [facility] TEST DONE W/N TEST COMP 16705-6.54 [id number] Diagnos is: ICD-10- CM R20.2 Paresth esia of skin ILIANA MURILLO 10/03 [facility] OFF/OP EST MAY X REQ PHY/QHP 96380-3.54 [id number] 3 Diagnos is: ICD-10- CM G56.01 Carpal tunnel syndrom e, right upper limb BLADES,ABI ORAH A 10/06 [facility] HUNTER GUIDE INTERNAL GRINDER TENDER INDIVIDU 07674-5.54 [id number] Diagnos is: ICD-10- CM Z71.81 Spiritu al or religio us memorial counselor ing BECCA VENCES 10/16 [place] MTMS BY PHARM ADDL 15 MIN 30462-9.54 [id number] Diagnos is: ICD-10- CM F43.12 Post-tr aumatic stress disorde r, chronic WILLBORN,R ALLISON J 10/21 [place] [facility] EDU&TRN PT SELF-MGMT NQHP 1 93717-1.54 [id number] Diagnos is: ICD-10- CM F43.12 Post-tr aumatic stress disorde r, chronic DONAVAN CLOUD CIA M 11/03 [place] [facility] OFFICE O/P EST LOW 20 MIN 23662-1.54 [id number] Diagnos is: ICD-10- CM M54.2 Cervica lgia BLADES,ABI ORJAXSON A 11/04 [facility] XM&SLCTN BINAURL 93193-4.54 [id number] Diagnos is: ICD-10- CM H90.3 Sensori neural hearing loss, bilater al JAMEMMAADE BISHOP A 11/11 [facility] STRESS MGMT CLASS 72864-7.54 [id number] Diagnos is: ICD-10- CM F43.12 Post-tr aumatic stress disorde r, chronic DONAVAN CLOUD CIA M 11/17 [place] [facility] PSYTX COMPLEX INTERACTIV E [id number] [id number] Diagnos is: ICD-10- CM F43.12 Post-tr aumatic stress disorde r, chronic DONAVAN CLOUD CIA M 12/01 [place] [facility] Outpatient Encounter 30740-4.54 [id number] 12/08 DOMENICO [facility] PSYTX W PT 60 MINUTES 10147-6.54 [id number] Diagnos is: ICD-10- CM F43.12 Post-tr aumatic stress disorde r, chronic DONAVAN CLOUD CIA 12/08 [facility] Procedures Combined list of: 1) Procedures from Department of Veterans Affairs facilities going back up to thelast 18 months, not all VA non-surgical procedures are included; 2) All procedures from the Department of Defense facilities. Procedure Procedure Type Code Date Perfomer Comments Sourc e IMMUNIZATION ADMINISTRATION (INCLUDES PERCUTANEOUS, INTRADERMAL, SUBCUTANEOUS, OR INTRAMUSCULAR INJECTIONS); 1 VACCINE (SINGLE OR COMBINATION VACCINE/TOXOID) 014 [facility] EXCISION OF NAIL AND NAIL MATRIX, PARTIAL OR COMPLETE (EG, INGROWN OR DEFORMED NAIL), FOR PERMANENT REMOVAL 016 [facility] IMMUNIZATION ADMINISTRATION (INCLUDES PERCUTANEOUS, INTRADERMAL, SUBCUTANEOUS, OR INTRAMUSCULAR INJECTIONS); EACH ADDITIONAL VACCINE (SINGLE OR COMBINATION VACCINE/TOXOID) 014 [facility] COLLECTION OF VENOUS BLOOD BY VENIPUNCTURE 013 [facility] SCREENING TEST OF VISUAL ACUITY, QUANTITATIVE, BILATERAL 013 [facility] PHYS/OTH QUALIFIED HEALTH PATIENT CARE MANAGER QUALIFIED,EDUCATI ON,TRAIN,LICENSUR E/REGULATION (WHEN APPLICABLE) EDUC SER RENDERED TO PATS IN A GRP SETTING (EG,,OBES ITY,OR DIABETIC INSTRUCT) 013 [facility] PATIENT EDUCATION, NOT OTHERWISE CLASSIFIED, NON-PHYSICIAN PROVIDER, GROUP, PER SESSION 018 [facility] ADMINISTRATION OF PATIENT-FOCUSED HEALTH RISK ASSESSMENT INSTRUMENT (EG, HEALTH HAZARD APPRAISAL) WITH SCORING AND DOCUMENTATION, PER STANDARDIZED INSTRUMENT 018 [facility] NEUROPSYC TSTNG(EG,ERAGAN -REITAN NEUROPSYC FATOU,COLLEEN MEMRY SCALES&[place] CARD SORT TST),W QUALIFIED HEALTH CARE PROFSIONAL INTERP&RPT,ADMINI STERED STAFFING RN,/HR,KATERINA MCNEAL,FCE-2-FCE 017 [facility] ADMINISTRATION OF PATIENT-FOCUSED HEALTH RISK ASSESSMENT INSTRUMENT (EG, HEALTH HAZARD APPRAISAL) WITH SCORING AND DOCUMENTATION, PER STANDARDIZED INSTRUMENT 017 [facility] EDUCATION &TRAINING, PATIENT SELF-MGT QUALIFIED, NONPHYSICIAN HEALTH PATIENT CARE MANAGER USING STDIZED CURRICULUM, SITU-PO-MBAL W THE PATIENT (COULD INCL CAREGIVER/FAMILY) EA 30 MIN; INDIVIDUAL PATIENT 017 [facility] PATIENT EDUCATION, NOT OTHERWISE CLASSIFIED, NON-PHYSICIAN PROVIDER, GROUP, PER SESSION 017 [facility] EAR MOLD/INSERT, DISPOSABLE, ANY TYPE 018 [facility] Threshold Audiogram (Pure Tone) Automated Threshold Audiogram (Pure Tone) Automated 0208T 018 XIMENA ANDERSON [facility] Patient education, not otherwise cla ified, non-physician provider, group, per se ion 018 XIMENA ANDERSON [facility] Ear mold/insert, disposable, any type 018 JASIEL POLLOCK [facility] Patient education, not otherwise cla ified, non-physician provider, individual, per se ion 018 JASIEL POLLOCK [facility] Threshold Audiogram (Pure Tone) Automated Threshold Audiogram (Pure Tone) Automated 0208T 018 JASIEL POLLOCK [facility] Alcohol and/or drug screening 017 DANYEL KAMARA [facility] Mental health a e ment, by non-physician 017 DANYEL KAMARA [facility] Psychometric Neuropsych Testing Battery Admin By Petroleum Analyst Psychometric Neuropsych Testing Battery Admin By Petroleum Analyst 64479 017 CHUYITA TOMAS [facility] Patient Counseling Medical Management Individual Patient Patient Counseling Medical Management Individual Patient 71652 017 ATA LARRY [facility] Acoustic Reflex Testing Acoustic Reflex Testing 56887 017 ATA LARRY [facility] Comprehensive Audiometry Comprehensive Audiometry 18670 017 ATA LARRY [facility] Tympanometry Tympanometry 55113 017 ATA LARRY [facility] Patient education, not otherwise cla ified, non-physician provider, group, per se ion 017 DOMI JEREZ [facility] Threshold Audiogram (Pure Tone) Threshold Audiogram (Pure Tone) 96865 017 DOMI JEREZ [facility] Part Permanent Excis Nail, Matrix R First Toe Lateral Border Part Permanent Excis Nail, Matrix R First Toe Lateral Border 08218 016 BRII MCKAY Options and alternatives were expalined to patient who opted for the toenail removal today and signed consent to have it done. 2 mL 1% lidocaine injected with 25g needle to digitally block the right great toe. 1mL added subsequently, but before removal of nail due to Pt report of pain with palpation. Rubber tournaquet applied at base of toe. Medical scissors used to cut nail to martix 1/3 of the distance across the nail from the lateral border. Pt tolerated well. Clamp used to separate 1/3 of nail from bed and bluntly remove from the matrix. Pt tolerated well. 1mL blood lost at that time. Cavity explored for remnants and none were found. Tournaquet removed at 7 minutes and 1 more mL blood lost then. Antibiotic ointment was applied to the exposed nail bed, sterile dressing and tube bandage applied. Pt educated on preventive measures for ingrowing nails as well as care and treatment of his present wound. Pt denied the need for NSAID Rx as he has plenty of ibuprofen already. We discussed the properuse of ibuprofen for desired results. Pt had no more questions and/or comments at the conclusion of our encounter. He was placed on 1 day SIQ to facilitate recovery. BRIE Ramey assisted and HM3 Nakita observed the entire procedure and participated in part of the digital block under my supervision. [facility] Hepatitis A And Hepatitis B (Intramuscular Use) Adult Dosage Hepatitis A And Hepatitis B (Intramuscular Use) Adult Dosage 93109 AVNI ESTEVEZ Hep A - Hep B (Twinrix); Series #: 3; 1.0 mL; IM; Right Arm; Mfg: Sonatypeine; Lot: [id number]; VIS given (Marta: 04/11/11; 07/30/11). [facility] Immunization Administration One Vaccine Immunization Administration One Vaccine [address] Supervised Injection Intramuscular Antibiotic Supervised Injection Intramuscular Antibiotic 37202 WIL MADERA DoD Vaccines Viral Polio, Inactivated (Salk) Vaccines Viral Polio, Inactivated (Salk) 36634 WIL MADERA IPV; Series #: 1; .5 mL; SC; Right Thigh; Mfg: Sanofi Pasteur; Lot: [id number]. [facility] Vaccines Viral Yellow Fever Vaccines Viral Yellow Fever 84117 014 WIL MADERA Yellow Fever; Series #: 1; .5 mL; SC; Right Thigh; Mfg: Sanofi Pasteur; Lot: [id number]. [facility] Hepatitis A And Hepatitis B (Intramuscular Use) Adult Dosage Hepatitis A And Hepatitis B (Intramuscular Use) Adult Dosage 76530 014 WIL MADERA Hep A - Hep B (Twinrix); Series #: 2; 1.0 mL; IM; Right Thigh; Mfg: Mobile Automation; Lot: [id number]. [facility] Immunization Administration One Vaccine Immunization Administration One Vaccine 18433 WIL MADERA [facility] Immunization Administration Each Additional Vaccine Immunization Administration Each Additional Vaccine 56726 014 WIL MADERA [facility] Screening Test Of Visual Acuity, Quantitative, Bilateral Screening Test Of Visual Acuity, Quantitative, Bilateral 98015 RODRICK YOO [facility] Venipuncture Venipuncture [address] Supervised Injection Intramuscular Antibiotic Supervised Injection Intramuscular Antibiotic 32628 BERTRAND ALAS Skin Test Anergy Tuberculin Intradermal Skin Test Anergy Tuberculin Intradermal 34232 BERTRAND ALAS IPPD; Series #: 1; .1 mL; ID; Left Arm; Mfg: Other; Lot: [id number]. [facility] Hepatitis A And Hepatitis B (Intramuscular Use) Adult Dosage Hepatitis A And Hepatitis B (Intramuscular Use) Adult Dosage 70687 BERTRAND ALAS Hep A - Hep B (Twinrix); Series #: 1; 1.0 mL; IM; Left Arm; Mfg: Mobile Automation; Lot: [id number]. [facility] Meningococcal Conjugate Vaccine Tetravalent (A C Y W-135) BERTRAND ALAS Meningococcal A,C,Y,W-135 Diphtheria Conj; Series #: 1; .5 mL; IM; Left Arm; Mfg: Sanofi Pasteur; Lot: [id number]. [facility] Tdap Vaccine Tdap Vaccine 18581 BERTRAND ALAS Tdap; Series #: 1; .5 mL; IM; Left Arm; Mfg: Mobile Automation; Lot: [id number]. [facility] Vaccines Vaccines 52698 013 BERTRAND ALAS Adenovirus Type 4 and 7; Series #: 1; 2 gtts; PO; Left Arm; Mfg: Netero; Lot: [id number]. [facility] Immunization Admin By Intranasal / Oral Route One Vaccine Immunization Admin By Intranasal / Oral Route One Vaccine 65981 BERTRAND ALAS [facility] Immunization Administration Each Additional Vaccine Immunization Administration Each Additional Vaccine 61580 BERTRAND ALAS [facility] Immunization Admin Intranasal / Oral Each Additional Vaccine Immunization Admin Intranasal / Oral Each Additional Vaccine 85353 BERTRAND ALAS [facility] -Supervised Group Educational Services -Supervised Group Educational Services 73274 ISAI NIX [facility] Audiometry Group Testing Audiometry Group Testing 03160 ISAI NIX [facility] ADENOIDECTOMY, BILATERAL INFERIOR TURBINATE REDUCTION, BILATERAL MYRINGOTOMY ABLATE INF TURBINATE SUBMUC 77304 025 [facility] VASECTOMY REMOVAL OF SPERM DUCT(S) 29408 025 JUAN PABLO HO [facility] BILATERAL TONSILLECTOMY EAR AND THROAT EXAMINATION 95236 024 KIAN OSORIO [facility] Social History Combined list of available smoking, tobacco, and other social history from Department of Defense and Veterans Affairs facilities. Social History Type Response Date Comment Sour e Tobacco smoking status NYIS TOBACCO CURRENT USER 09/05/2024 daily vape [facility] History of tobacco use TOBACCO CURRENT USER 07/21/2024 [facility] History of tobacco use VA-TOBACCO USE EVERY DAY CIGARETTES 06/06/2024 [facility] History of tobacco use TOBACCO FORMER USER MORE 12 MONTHS 06/19/2023 [facility] History of tobacco use VA-TOBACCO FORMER USER 05/18/2023 [facility] This section is an empty social history section. [facility] Plan of Care List of future care activities from Department of Veterans Affairs facilities. Additional future care activities may be listed in the Assessment and Plan section. Date/Time Care Activity Care Activity Detail Facili ty 12/11/2024 AMBULATORY - NONE AMBULATORY - NONE [facility] Advance Directives List of completed, amended, or rescinded Advance Directives on record at Department [facility] facilities. An actual copy of the Directive is not included. Date Advance Directive Provider Source 10/22/2023 ADVANCE DIRECTIVE DISCUSSION SABINA NAIR [facility]
--- OUTSIDE RECORDS SUMMARY | 2024-12-10 17:11 | XMS_ITS | Clinical Summary ---
Author Organization [facility] Address [address] [place] [address] Phone Care Team Providers Care Hearing Healthcare Practitioner Name Role Phone Leta Rhodes DO Primary Care Provider [phone] Social History Tobacco Use Types Packs/Day Years Used Date Smoking Tobacco: Never Assessed Sex and Gender Information Value Date Recorded Sex Assigned at Not on file Legal Sex Male 4:58 PM EST Gender Identity Not on file Sexual Orientation Not on file Last Filed Vital Signs Vital Sign Reading Time Taken Comments Blood Pressure 119/83 02/05/2020 9:59 AM EDT Pulse 74 02/05/2020 9:59 AM EDT Temperature 36.4 C (97.6 F) 02/05/2020 9:59 AM EDT Respiratory Rate 20 12/31/2019 10:13 AM EDT Oxygen Saturation 100% 12/31/2019 10:13 AM EDT Inhaled Oxygen Concentration - - Weight 71.8 kg (158 lb 4 oz) 02/05/2020 9:59 AM EDT Height 176 cm (5' 9.29 ) 12/31/2019 10:13 AM EDT Body Mass Index 23.17 12/31/2019 10:13 AM EDT Plan of Treatment Not on file Care Teams Hearing Healthcare Practitioner Relationship Specialty Start Date End Date Leta Rhodes DO PCP - General 12/31/19
--- OUTSIDE RECORDS SUMMARY | 2024-12-10 17:11 | XMS_ITS | Patient Health Record ---
Author Organization [employer] [facility] Address [address] [place] [address] Support Name Relationship Address Phone TABBY ZHENG Emergency Contact [address] [facility] [facility] [place] [address] MARION ZHENG Guarantor Unknown [phone] Allergies Allergen (clinical drug ingredient) Drug/Non Drug Allergy documented on EMR Reaction Allergy Type Onset Date Status hydromorphone Dilaudid Unknown Drug Allergy Act jakob morphine Morphine Unknown Drug Allergy Active oxycodone Oxycodone Unknown Drug Allergy Active Reason For Referral No Information Medications Medication SIG (Take, Route, Frequency, Duration) Notes Start Date End Date Status traZODone HCl 100 MG TAKE 1 TABLET BY MO UTH EVERY DAY AT BEDTIME NEEDED FOR 30 DAYS for 30 Not-Taking PROzac 10 MG 1 capsule Orally Onc e a day for 30 day(s) 01/23/2023 Active hydrOXYzine HCl 25 MG 1-2 tablets at bed time Orally Once a day for 30 day(s) Active Lexapro 20 MG 1 tablet Orally Once a day Not-Taking Abilify 2 MG 1 tablet Orally Once a day for 30 day(s) Not-Taking Cyclobenzaprine HCl 10 MG 1 tablet Orall y Once a day Not-Taking Gabapentin 300 MG 1 capsule Orally Onc e a day Not-Taking traZODone HCl 50 MG TAKE 1 TABLET BY HECTOR TH EVERY DAY AT BEDTIME NEEDED FOR 30 DAYS for 30 Not-Taking Sertraline HCl 50 MG TAKE 1 TABLET BY MO UTH EVERY DAY for 90 Not-Taking Social History Tobacco Use: Social History Observation Description Date Details (start date - stop date) Former Smoker NA - NA Tobacco Screen: Question Answer Notes Are you a: former smoker How long has it been since you last smoked? 1-5 years Alcohol Screening: Question Answer Notes Did you have a drink contain ing alcohol in the past year? Yes How often did you have a dri nk containing alcohol in the past year? Monthly or less (1 point) How many drinks did you have on a typical day when you were drinking in the past year? 1 or 2 (0 points) Points 1 Interpretation Negative Depression Screening (PHQ-9): Question Answer Notes Little interest or pleasure in doing things Near ly every day Feeling down, depressed, or hopeless Nearly ever y day Trouble falling or staying asleep, or sleeping t oo much Nearly every day Feeling tired or having little energy Nearly erwin ry day Poor appetite or overeating Not at all Feeling bad about yourself-o r that you are a failure or have let yourself or your family down Not at all Trouble concentrating on thi ngs, such as reading the newspaper or watching television More than half the days Moving or speaking so slowly that other people could have noticed. Or the opposite being so fidgety or restless that you have been moving around a lot more than usual Not at all Thoughts that you would be b paty off , or of hurting yourself in some way Not at all Total Score 14 Intepretation Moderate Depression Problems Problem Type SNOMED Code ICD Code Onset Dates Problem Status W/U Status Risk Notes Problem 2067955 Primary insomnia (F51.01) Active confirmed Problem 99562642 Anxiety (F41.9) Active confirmed Problem [id number] Moderate episode of recurrent major depressive disorder (F33.1) Active confirmed Plan Of Treatment No Information Insurance Providers Payer Name Payer Address Payer Phone Subscriber Number Group Number Insured Name Patient Relationship to Insured Coverage Start Date Coverage End Date [employer] PPO [address] [place], [place] [phone] [id number] MARION ZHENG Self - patient is the insured 2 Medical (General) History Medical History History ICD Code Hereditary Spherocytosis Hx of steroid injection Surgical History Surgery Date(Month/Year) Cholecystectomy Splenectomy Hernia repair Hospitalization History Reason Date(Month/Year) Splenectomy 2019
--- OUTSIDE RECORDS SUMMARY | 2024-12-10 17:14 | XMS_ITS | Encounter Summary ---
Author Organization [facility] Address [address] [place] [address] Care Team Providers Care Torpedo Specialist Name Role Phone Leta Rhodes DO Unavailable [phone] Source Comments In the event this information is protected by the Federal Confidentiality of Alcohol and Drug AbusePatient Records regulations: The Federal rules restrict any use of the information to criminally investigate or prosecute any alcohol or drug abuse patient.[facility] Encounter Details Date Type Department Care Team (Late st Contact Info) Description 08/15/2022 Abstract Neurology [address] [id number] (Historical), Unk Social History Tobacco Use Types Packs/Day Years Used Date Smoking Tobacco: Never Assessed Area Deprivation Index Answer Date Chris rded National Score (1-100), lower number is lower ri sk Not on file 05/28/2020 State Score (1-10), lower number is lower risk N ot on file 05/28/2020 Data from: https://www.neighborhoodatlas.medicine.[facility].edu/. Last address used for calculation Not on file 05/28/2020 Sex and Gender Information Value Date Recorded Sex Assigned at Not on file Legal Sex Male 10:53 AM EDT Gender Identity Not on file Sexual Orientation Not on file documented as of this encounter Plan of Treatment Not on file documented as of this encounter Visit Diagnoses Not on filedocumented in this encounter Care Teams Torpedo Specialist Relationship Specialty Start Date End Date Leta Rhodes DO Referring Family Medicine 11/19/19 documented as of this encounter
--- OUTSIDE RECORDS SUMMARY | 2024-12-10 17:14 | XMS_ITS | Encounter Summary ---
Author Organization [facility] Address [address] [place] [address] Care Team Providers Care Acid Changer Name Role Phone Leta Rhodes DO Unavailable [phone] Source Comments In the event this information is protected by the Federal Confidentiality of Alcohol and Drug AbusePatient Records regulations: The Federal rules restrict any use of the information to criminally investigate or prosecute any alcohol or drug abuse patient.[facility] Encounter Details Date Type Department Care Team (Late st Contact Info) Description 09/11/2024 Lab Requisition [facility] [address] [place] [address] [place] [address] [address] [phone] Person encountering health services to consult on behalf of another person Social History Tobacco Use Types Packs/Day Years Used Date Smoking Tobacco: Never Assessed Area Deprivation Index Answer Date Chris rded National Score (1-100), lower number is lower ri sk Not on file 05/28/2020 State Score (1-10), lower number is lower risk N ot on file 05/28/2020 Data from: https://www.neighborhoodatlas.medicine.[facility].edu/. Last address used for calculation Not on file 05/28/2020 Sex and Gender Information Value Date Recorded Sex Assigned at Not on file Legal Sex Male 10:53 AM EDT Gender Identity Not on file Sexual Orientation Not on file documented as of this encounter Plan of Treatment Not on file documented as of this encounter Procedures Procedure Name Priority Date/Time Associated Diagnosis Comments SURGICAL PATHOLOGY REFERENCE LAB CONSULT Routine 09/11/2024 3:56 PM EDT Person encountering health services to consult on behalf of another person documented in this encounter Results * SURGICAL PATHOLOGY REFERENCE LAB CONSULT (09/11/2024 3:56 PM EDT) Case Report Surgical Pathology Report Case: [id number] Authorizing Provider: Telma Oconnor MD Collected: 09/11/2024 03:56 PM Ordering Location: [facility] Received: 09/11/2024 03:49 PM [facility] Pathologist: Sarah Merritt MD, PhD Specimen: Block(s) and/or Slide(s), 2 SLIDES / 1 BLOCK SP-CL [id number] ; A1 09/19/2024 7:14 PM EDT [facility] FINAL DIAGNOSIS A. Outside materials received from [facility], [place], [place] (External ID SP-CL [id number], 09/05/2024) Adenoid, biopsy: -Reactive lymphoid tissue, see comment. [facility] September 19, 2024 09/19/2024 7:14 PM EDT [facility] at 1914 EDT Diagnosis Comment Thank you for sending this case in consultation. The patient is a 29-year-old male with flow cytometry previously sent from the specimen to our institution. Only a T-cell panel was performed, which was unremarkable. Please contact the Hematopathology Consult Service at [phone] for any questions or if additional follow-up information becomes available. 09/19/2024 7:14 PM EDT [facility] Microscopic Description Histologic sections demonstrate fragments of sinonasal mucosa with [...] is compatible with a more nodular pattern. 09/19/2024 7:14 PM EDT [facility] Clinical History CONSULT REQUESTED 09/19/2024 7:14 PM EDT [facility] Performing Lab Diagnostic interpretation performed at: [facility], [address] [place] [address], [place] [address] CLIA# [id number] Operations Welder: Oumar Wilder MD 09/19/2024 7:14 PM EDT [facility] Disclaimer Laboratory Developed Test (LDT) Disclaimer: Performance characteristics of immunohistochemica l, immunofluorescent, and chromogenic in-situ hybridization tests have been determined by the performing laboratory within [facility]'s Psychiatric Pathology and Laboratory Medicine Department ([facility], [facility], [facility], [facility], [facility], [facility], or [facility]) in a manner consistent with CLIA requirements. One or more of these tests may not have been cleared or approved by the FDA. [facility] is regulated under CLIA as qualified to perform high-complexity testing. These tests are used for clinical purposes. These should not be regarded as investigational or for research. Positive and negative controls stain appropriately. 09/19/2024 7:14 PM EDT [facility] Blocks or Slides PARAFFIN EMBEDDED TISSUE BLOCK SPECIMEN / Unknown 09/11/2024 3:56 PM EDT 09/11/2024 3:49 PM EDT us Telma Oconnor MD SURGICAL PATHOLOGY Final Result [facility] [address] [place] [address], [place] documented in this encounter Visit Diagnoses Diagnosis Person encountering health services to consult on behalf of another person Other person consulting on behalf of another person documented in this encounter Care Teams Acid Changer Relationship Specialty Start Date End Date Leta Rhodes DO Referring Family Medicine 11/19/19 documented as of this encounter
--- OUTSIDE RECORDS SUMMARY | 2024-12-10 17:14 | XMS_ITS | Encounter Summary ---
Author Organization [facility] Address [address] [place] [address] Care Team Providers Care Window Glazier Helper Name Role Phone Leta Rhodes DO Unavailable [phone] Source Comments In the event this information is protected by the Federal Confidentiality of Alcohol and Drug AbusePatient Records regulations: The Federal rules restrict any use of the information to criminally investigate or prosecute any alcohol or drug abuse patient.[facility] Encounter Details Date Type Department Care Team (Late st Contact Info) Description 09/05/2024 Lab Requisition [facility] [address] [place], [place] [id number] [place] [id number] [address] [phone] Social History Tobacco Use Types Packs/Day Years Used Date Smoking Tobacco: Never Assessed Area Deprivation Index Answer Date Chris rded National Score (1-100), lower number is lower ri sk Not on file 05/28/2020 State Score (1-10), lower number is lower risk N ot on file 05/28/2020 Data from: https://www.neighborhoodatlas.medicine.[facility].edu/. Last address used for calculation Not on file 05/28/2020 Sex and Gender Information Value Date Recorded Sex Assigned at Not on file Legal Sex Male 10:53 AM EDT Gender Identity Not on file Sexual Orientation Not on file documented as of this encounter Plan of Treatment Not on file documented as of this encounter Procedures Procedure Name Priority Date/Time Associated Diagnosis Comments FLOW CYTOMETRY RLLYMP REFLEX Routine 09/05/2024 10:05 AM EDT FLOW CYTOMETRY RLLYMP Routine 09/05/2024 10:05 AM EDT documented in this encounter Results * FLOW CYTOMETRY RLLYMP REFLEX (09/05/2024 10:05 AM EDT) Interpretation There is no immunophenotypic evidence of involvement by a T-cell lymphoproliferative disorder in this limited sample. Correlation with the histopathologic and clinical findings is suggested. 1:18 PM EDT [facility] at 1318 EDT Results Specimen type: Nasopharynx biopsy. Morphology comments: Degenerated specimen. [...] (2%), and B cells (52%). MMN/JOHNNY 2024 1:18 PM EDT [facility] Gross Description A. Nasopharynx RECEIVED ONE PIECE OF TISSUE MEASURING 0.2 CM X 0.2 CM X 0.1 CM IN RPMI 1:18 PM EDT [facility] Diagnosis Comment This test was developed and its performance characteristics determined by [facility]'s [facility] Pathology and Laboratory Medicine [place] ([facility]). It has not been cleared or approved by the FDA. [facility] is regulated under CLIA as qualified to perform high-complexity testing. This test is used for clinical purposes. It should not be regarded as investigational or for research. 1:18 PM EDT [facility] Performing Lab Diagnostic interpretation performed at [facility], [address] [place] [address] CLIA# [id number] Informatics Spec: Oumar Wilder M.D. 1:18 PM EDT [facility] Tissue NASOPHARYNGEAL SWAB / Unknown 09/05/2024 10:05 AM EDT 2024 10:38 AM EDT us Telma Oconnor MD SURGICAL PATHOLOGY Final Result Performing Organization Address City/[facility]/ZIP Co de Phone Number [facility] [address] [place] [address], * FLOW CYTOMETRY RLLYMP (09/05/2024 10:05 AM EDT) Flow Cytometry Order Status Results will be reported under F case ID when completed 2024 10:37 AM EDT [facility] Tissue NASOPHARYNGEAL SWAB / Unknown 09/05/2024 10:05 AM EDT 09/05/2024 5:38 PM EDT us Telma Oconnor MD LABORATORY Final Result Performing Organization Address City/[facility]/ZIP Co de Phone Number [facility] [address] [place] [address], documented in this encounter Visit Diagnoses Not on filedocumented in this encounter Care Teams Window Glazier Helper Relationship Specialty Start Date End Date Leta Rhodes DO Referring Family Medicine 11/19/19 documented as of this encounter
--- OUTSIDE RECORDS SUMMARY | 2024-12-10 17:14 | XMS_ITS | Clinical Summary ---
Author Organization [facility] Address [address] [place] [address] Care Team Providers Care Aesthetician Name Role Phone Leta Rhodes DO Unavailable [phone] Encounters Date Type Department Care Team Description 09/11/2024 Lab Requisition [facility] [address] [place] [address] Telma Oconnor MD Person encountering health services to consult on behalf of another person from Last 3 Months Social History Tobacco Use Types Packs/Day Years Used Date Smoking Tobacco: Never Assessed Area Deprivation Index Answer Date Chris rded National Score (1-100), lower number is lower ri sk Not on file 05/28/2020 State Score (1-10), lower number is lower risk N ot on file 05/28/2020 Data from: https://www.neighborhoodatlas.medicine.[facility]/. Last address used for calculation Not on file 05/28/2020 Sex and Gender Information Value Date Recorded Sex Assigned at Not on file Legal Sex Male 10:53 AM EDT Gender Identity Not on file Sexual Orientation Not on file Plan of Treatment Health Maintenance Due Date Last Done Comments Anxiety Screening 2012 Depression Screening 2012 HIV Screening 2012 Hepatitis C Screening 2012 Hepatitis B Vaccine (1 of 3 - 19+ 3-dose series) 09/06 Covid-19 Vaccine ( - season) 2024 Influenza Vaccine (Season Ended) 2025 DTaP,Tdap,Td Vaccine (2 - Td or Tdap) 11/05/2031 05/ Procedures Procedure Name Priority Date/Time Associated Diagnosis Comments SURGICAL PATHOLOGY REFERENCE LAB CONSULT Routine 09/11/2024 3:56 PM EDT Person encountering health services to consult on behalf of another person from Last 3 Months Results * SURGICAL PATHOLOGY REFERENCE LAB CONSULT (09/11/2024 3:56 PM EDT) Case Report Surgical Pathology Report Case: [id number] Authorizing Provider: Telma Oconnor MD Collected: 09/11/2024 03:56 PM Ordering Location: [facility] Received: 09/11/2024 03:49 PM [facility] Pathologist: Sarha Merritt MD, PhD Specimen: Block(s) and/or Slide(s), 2 SLIDES / 1 BLOCK SP-CL 25 3083 ; A1 09/19/2024 7:14 PM EDT [facility] FINAL DIAGNOSIS A. Outside materials received from [facility], [place], [place] (External ID SP-CL [id number], 09/05/2024) Adenoid, biopsy: -Reactive lymphoid tissue, see comment. [facility] September 19, 2024 09/19/2024 7:14 PM EDT [facility] at 1914 EDT Diagnosis Comment Thank you for sending this case in consultation. The patient is a 29-year-old male with flow cytometry previously sent from the specimen to our institution. Only a T-cell panel was performed, which was unremarkable. Please contact the Hematopathology Consult Service at [phone] for any questions or if additional follow-up information becomes available. 09/19/2024 7:14 PM EDT [facility] Microscopic Description Histologic sections demonstrate [...] more nodular pattern. 09/19/2024 7:14 PM EDT [facility] Clinical History CONSULT REQUESTED 09/19/2024 7:14 PM EDT [facility] Performing Lab Diagnostic interpretation performed at: [facility], [address] [place] [address], [place] [address] CLIA# [id number] Fish Receiver: Oumar Wilder MD 09/19/2024 7:14 PM EDT [facility] Disclaimer Laboratory Developed Test (LDT) Disclaimer: Performance characteristics of immunohistochemica l, immunofluorescent, and chromogenic in-situ hybridization tests have been determined by the performing laboratory within [facility]'s [facility] Pathology and Laboratory Medicine Department ([facility], [facility], [facility], [facility], [facility], [facility], or [facility]) in a [...] controls stain appropriately. 09/19/2024 7:14 PM EDT [facility] Blocks or Slides PARAFFIN EMBEDDED TISSUE BLOCK SPECIMEN / Unknown 09/11/2024 3:56 PM EDT 09/11/2024 3:49 PM EDT us Telma Oconnor MD SURGICAL PATHOLOGY Final Result [facility] [address] [place] [address], [place] from Last 3 Months Insurance [facility] PPO Member Subscriber Plan / Payer (Ef fective 2021-Present) Name:Christiano Santacruz Relation to Subscriber:Self Name:Christiano Santacruz Payer ID:Not on file Group ID:Not on file Type:PPO Address: [address] [place] [id number] Care Teams Aesthetician Relationship Specialty Start Date End Date Leta Rhodes DO Referring Family Medicine 11/19/19
--- NOTE | 2024-12-10 17:15 | ED.DENTAL1 ---
HPI - Dental/Oral General Chief complaint: Dental/Oral Stated complaint: DENTAL HEADACHE Time Seen by Provider: 12/10/24 17:11 Source: patient Mode of arrival: walk-in History of Present Illness HPI Narrative: 29-year-old male returns to the emergency room chief complaint of continued dental pain. He was seen here yesterday for same complaint. He tells me he is scheduled tomorrow for 26 for a dental exam. He has multiple dental caries throughout complains of pain to dentist #14. There is no acute abscess or facial swelling appreciated. Patient was sent home with for Tylenol with codeine from the hospital and is currently taking amoxicillin as prescribed. Location: Tooth # Teeth map:  1. dental pain caries Related Data Home Medications ?Medication ?Instructions ?Recorded ?Confirmed sertraline 50 mg tablet 150 mg PO Q24H 06/20/23 05/06/24 Previous Rx's ?Medication ?Instructions ?Recorded amoxicillin 875 mg-potassium 1 tab PO Q12H #20 tabs 09/10/24 clavulanate 125 mg tablet Allergies Allergy/AdvReac Type Severity Reaction Status Date / Time morphine Allergy Severe Anaphylaxis Verified 12/09/24 01:05 hydromorphone (From Dilaudid) Allergy Mild Nausea Verified 12/09/24 01:05 oxycodone Allergy Mild Nausea Verified 12/09/24 01:05 Review of Systems ROS Status of ROS 10 or more systems reviewed and unremarkable except as noted in history and below PFSH PFS Medical History (Updated 12/10/24 @ 17:16 by Kaur Argueta) Hereditary spherocytosis ?D58.0 - Hereditary spherocytosis (ICD-10) Deviated nasal septum ?J34.2 - Deviated nasal septum (ICD-10) Melena ?K92.1 - Melena (ICD-10) Depression ?F32.A - Depression, unspecified (ICD-10) Insomnia ?G47.00 - Insomnia, unspecified (ICD-10) Bulging disc Chronic migraine Surgical History (Updated 06/21/23 @ 00:01 by Rebecca Moody) H/O hernia repair ?Z98.890 - Other specified postprocedural states (ICD-10) ?Z87.19 - Personal history of other diseases of the digestive system (ICD-10) History of cholecystectomy ?Z90.49 - Acquired absence of other specified parts of digestive tract (ICD-10) Hx of tonsillectomy ?Z90.89 - Acquired absence of other organs (ICD-10) H/O splenectomy ?Z90.81 - Acquired absence of spleen (ICD-10) Family History (Updated 06/21/23 @ 00:02 by Rebecca Moody) Uncle Family history of myocardial infarction Social History (Updated 06/21/23 @ 00:06 by Rebecca Moody) Within the past year, how often did you have a drink containing alcohol: never Score interpretation: A score less than 4 is consistent with normal alcohol consumption. 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 Highest level of school completed/degree received: high school graduate Are you now , , , , never or living with a partner: In a typical week, how many times do you talk on the telephone with family, friends, or neighbors: 3 or more times per week How often do you get together with friends or relatives: 3 or more times per week How often do you attend mormon or hinduism services: never Do you belong to any clubs or organizations such as mormon groups unions, [employer] or athletic groups, or school groups: no Total score: 1 Score interpretation: A score of less than or equal to 1 indicates the most socially isolated. Little interest or pleasure in doing things: not at all Feeling down, depressed, or hopeless: not at all Feel stressed/tense/nervous/anxious/difficulty sleeping: to some extent Do you think of yourself as: straight/heterosexual Gender Identity: male Exam Narrative Exam Narrative: Nurses notes reviewed and patient is noted to be non-hypoxic. General: The patient is comfortable, alert and oriented x3, well appearing, non toxic in no apparent distress. Head: Atraumatic and normocephalic. Eyes: Normal conjunctiva, no exudates. ENT: The oropharynx is normal. No pharyngeal erythema, uvular edema, tonsillar exudates, asymmetry or trismus. Uvula is midline. Mouth is normal to inspection With the exception of a pain on percussion of the tooth # 4and evidence of dental caries. There is no evidence of facial asymmetry or abscess formation. Floor of the mouth is soft. No tenderness in the submental or submandibular space. No tongue elevation or deviation. The patient has no evidence of periapical abscess, gingivitis, ANUG or other acute pathology. Airway is patent. Neck: The neck demonstrates normal range of motion. No meningeals signs are present. No stridor. No masses or lymphandenopathy noted. Respiratory: No acute distress, lungs are clear to auscultation, no wheezing, rhonchi, or rales noted. No stridor or retractions are noted. Cardiovascular: Regular rate and rhythm Skin: The skin exam shows no evidence of rashes Neuro: Alert and oriented x4, normal speech Lymphatic: No cervical lymphadenopathy Constitutional Vital Signs, click to edit/add: Last Vital Signs Temp 98.3 F 12/10/24 17:06 Pulse 82 12/10/24 17:06 Resp 18 12/10/24 17:06 BP 159/97 H 12/10/24 17:06 Pulse Ox 96 12/10/24 17:06 O2 Del Method Room Air 12/10/24 17:06 Course Vital Signs Vital signs: Vital Signs Temperature 98.3 F 12/10/24 17:06 Pulse Rate 82 12/10/24 17:06 Respiratory Rate 18 12/10/24 17:06 Blood Pressure 159/97 H 12/10/24 17:06 Pulse Oximetry 96 12/10/24 17:06 Oxygen Delivery Method Room Air 12/10/24 17:06 Temperature 98.3 F 12/10/24 17:06 Pulse Rate 82 12/10/24 17:06 Respiratory Rate 18 12/10/24 17:06 Blood Pressure 159/97 H 12/10/24 17:06 Pulse Oximetry 96 12/10/24 17:06 Oxygen Delivery Method Room Air 12/10/24 17:06 MDM - Dental/Oral MDM Narrative Medical decision making narrative: 29-year-old male returns to the emergency room chief complaint of continued dental pain. He was seen here yesterday for same complaint. He tells me he is scheduled tomorrow for for a dental exam. He has multiple dental caries throughout complains of pain to dentist #14. There is no acute abscess or facial swelling appreciated. Patient was sent home with for Tylenol with codeine from the hospital and is currently taking amoxicillin as prescribed. Shows no acute dental abscess no facial asymmetry noted. He was given dental anesthesia here medicated with Toradol IM. Discharged home with 4 Tylenol with codeine. Patient to follow-up with primary dentist as scheduled tomorrow Discharge Plan Discharge Chief Complaint: Dental/Oral Clinical Impression: Dental caries, Toothache Patient Disposition: Home, Self-Care Time of Disposition Decision: 17:16 Condition: Good Prescriptions / Home Meds: No Action amoxicillin-pot clavulanate 875-125 mg tablet 1 tab PO Q12H Qty: 20 0RF sertraline 50 mg tablet 150 mg PO Q24H Print Language: Kittitian Instructions: Toothache (ED) Additional Instructions: follow up with dentist as scheduled Referrals: Adrian Ambrosio MD [Primary Care Provider] - 1 week
--- OUTSIDE RECORDS SUMMARY | 2024-12-10 17:16 | XMS_ITS | Encounter Summary ---
Author Name [facility] Address [address] [place] [address] Care Team Providers Care Organ Pipe Finisher Name Role Phone ROSARIO ESCALERA Primary Care [...] section includes the information on record at [facility] for the Encounter. Date/Time Encounter Type Encounter Description Reason Pro vider Source [facility] Encounter Template Text not used by [facility] Advance Directives: All historical and current Section Date Range: From patient's date of to the date document was created. This section includes ALL of a patient's completed or amended [place] Advance and Rescinded Directives. The entries below indicate that a directive exists for the patient, but an actual copy is not included with this document. The data comes from all [place] facilities. Date Advance Directives Provider Source October 22, 2023 ADVANCE DIRECTIVE DISCUSSION [facility]
[2024-12-10] MEDS: KETOROLAC TROMETHAMINE 60 MG/2 ML VIAL IM (17:31)
[2024-12-10] MEDS: ACETAMINOPHEN 300 MG/ 30 MG CODEINE TABLET 4 TAB PO (17:31)
[2024-12-10] MEDS: BENZOCAINE 30 ML, lidocaine HCL 15 ML MM (17:34)
== END 2024-12-10 17:39 | disposition home or self-care (01) ==
PROVIDERS: Emergency Provider Emergency Medicine; PCP Family Medicine
DX: K02.9 Dental caries, unspecified (principal); K08.89 Other specified disorders of teeth and supporting structures; Z90.49 Acquired absence of other specified parts of digestive tract; Z90.81 Acquired absence of spleen; F17.290 Nicotine dependence, other tobacco product, uncomplicated
CPT/HCPCS: 96372; 99284; J1885